=== PATIENT | male | born 1945 | race Caucasian/White ===

== ENCOUNTER 2023-02-08 12:57 | Outpatient (OUT) | payer MEDICARE, OTHER, SELFPAY ==
--- NOTE | 2023-02-08 | CT_ITS ---
The [address] [address] Patient Name: ELIESER TORRES MRN: [id number] date: 1945 Sex: M Assigned Patient Location: CT Current Patient Location: CT Accession/Order Number: [id number] Exam Date: 02/08/2023 10:43 Report Date: 02/08/2023 13:48 At the request of: OLU SOSA Procedure: CT abdomen pelvis wo con EXAM: CT abdomen pelvis wo con; [id number] REASON FOR EXAM: KIDNEY STONES N20.0, HYDRONEPHROSIS LEFT N13.3 TECHNIQUE: Helical CT images of the abdomen and pelvis were obtained without IV contrast. Multiplanar reformats were generated at the scanner. Dose reduction technique used: Automated exposure control and/or adjustment of the mA and/or kV according to patient size and/or use of iterative reconstruction technique. COMPARISON: CT abdomen/pelvis 04/12/2022. FINDINGS: Note: Compared with a contrast-enhanced CT exam, noncontrast images are relatively insensitive for detection of solid organ and vascular abnormalities. Visualized Chest: No pleural effusion or any significant pulmonary findings. Abdomen: Liver: Borderline hepatic steatosis. Single small calcification in the left lobe liver, likely the sequela of granulomatous disease. Gallbladder: No calcified gallstones. No acute inflammatory changes. Bile Ducts: No significant biliary ductal dilatation. Pancreas: No ductal dilatation or inflammatory changes. Spleen: No splenomegaly. Adrenals: No nodules. Kidneys: -Obstructing stone in the proximal left ureter measuring 7 x 5 mm (series 3 image 87), results in mild left-sided hydronephrosis. -There are 2 punctate calcifications in the expected region of the right ureterovesical junction (series 3 image 132 and 133), not seen on the CT from 04/12/2022. -There are 4 additional nonobstructing stones in the left kidney with the largest measuring 5 mm. -Multiple left renal cysts are similar with the largest in the upper pole measuring up to 6 cm, similar when measured in a similar fashion. -There are 3 nonobstructing stones in the lower pole of the right kidney the largest measuring 6 mm. -Low-density lesion in the lower pole of the left kidney measuring 17 mm similar compared with 04/12/2022, likely simple cysts. There is a small amount of layering calcification along the periphery of this lesion which may represent milk of calcium. Vascular: No aortic aneurysm. Lymph Nodes: No adenopathy. Abdominal Wall: Medium sized fat-containing left inguinal hernia. Pelvis: No mass or adenopathy. Bowel/Peritoneal Cavity/Mesentery: -Mild colonic diverticulosis without evidence of acute diverticulitis. -No bowel obstruction or significant ileus. -No acute inflammatory changes. -No free air or free fluid. Musculoskeletal: No acute fracture or suspicious osseous lesion. Extensive spinal fusion hardware is intact. IMPRESSION: 1. Obstructing 7 mm stone in the proximal left ureter results in mild left-sided hydronephrosis. 2. There are 2 punctate calcifications in the expected region of the right ureterovesical junction which could represent nonobstructing ureteric stones versus layering bladder stones. 3. Multiple additional nonobstructing stones in both kidneys. 4. Borderline hepatic steatosis. Electronically authenticated by: LISE COLES Date: 02/08/2023 13:48
== END 2023-02-08 12:58 | disposition home or self-care (01) ==
LOC: CT 12:58
PROVIDERS: PCP Internal Medicine; Visit Provider Urology
DX: N20.0 Calculus of kidney (principal); N13.30 Unspecified hydronephrosis
CPT/HCPCS: 74176

== ENCOUNTER 2023-02-21 08:06 | Outpatient (OUT) | payer MEDICARE, OTHER, SELFPAY ==
--- NOTE | 2023-02-21 08:14 | XR_ITS ---
The [address] [address] Patient Name: ELIESER TORRES MRN: [id number] date: 1945 Sex: M Assigned Patient Location: [facility] Current Patient Location: Accession/Order Number: [id number] Exam Date: 02/21/2023 09:00 Report Date: 02/21/2023 13:21 At the request of: OLU SOSA Procedure: XR chest 2V EXAMINATION: XR chest 2V HISTORY: copd ; presurgical evaluation COMPARISON: XR chest 05/16/2022 FINDINGS: LUNGS: No significant pulmonary parenchymal abnormalities. VASCULATURE: No increased pulmonary vasculature. PLEURA: No pneumothorax, effusion, or pleural thickening. CARDIAC: No cardiomegaly or cardiac silhouette abnormality. MEDIASTINUM: No visible mass or adenopathy. BONES: Multilevel mechanical fusion and intervertebral disc spacers of the lumbar spine. OTHER: Negative. XR/XR chest 2V IMPRESSION: 1. No acute cardiopulmonary process or significant chronic interstitial changes. Electronically authenticated by: EDELMIRA ARANGO Date: 02/21/2023 13:21
--- NOTE | 2023-02-21 08:14 | ECG_ITS ---
The [facility] Test Date: 2023-02-21 Pat Name: ELIESER TORRES Department: Room: - Gender: Male Director Of Perioperative Services: : 1945 Requested By: FRANCA SPENCER Order Number: [id number] Reading MD: FRANCA SPENCER Measurements Intervals [place] Rate: 70 P: 66 IA: 179 QRS: -13 QRSD: 90 T: 30 QT: 370 QTc: 400 Interpretive Statements SINUS RHYTHM No previous ECG available for comparison Electronically Signed On 02-22-2023 6:32:06 EDT by FRANCA SPENCER
[2023-02-21 09:10] LABS: Basophils Percent Auto 0.6 % (0.2-2.0); Eosinophils Absolute Auto 0.2 10^3/uL (0.0-0.7); Eosinophils Percent Auto 2.7 % (0.9-7.0); Hemoglobin 14.1 g/dL (14.0-18.0); Immature Granulocytes Abs Auto 0.03 10^3/uL (0.00-0.03); Immature Granulocytes Pct Auto 0.5 % (0.0-0.5); Lymphocytes Absolute Auto 1.4 10^3/uL (1.2-3.8); Lymphocytes Percent Auto 22.6 % (20.5-60.0); Mean Corpuscular Hemoglobin 30.3 pg (25.9-34.0); Mean Corpuscular Volume 94.6 fL (80.0-94.0); Mean Platelet Volume 9.4 fL (9.5-13.5); Monocytes Absolute Auto 0.7 10^3/uL (0.3-0.8); Monocytes Percent Auto 10.6 % (1.7-12.0); Neutrophils Absolute Auto 3.9 10^3/uL (1.4-6.5); Platelet Count 213 10^3/uL (150-450); Red Blood Count 4.65 10^6/uL (4.70-6.10); Red Cell Distribution Width 13.3 % (11.0-15.0); White Blood Count 6.3 10^3/uL (4.0-11.0)
[2023-02-21 09:23] LABS: Partial Thromboplastin Time 29.1 sec (22.3-36.2); Prothrombin Time 9.8 sec (9.0-11.6)
[2023-02-21 09:25] LABS: INR <0.93
[2023-02-21 10:31] LABS: Anion Gap 9.6; BUN Creatinine Ratio 11.4; Carbon Dioxide 30.5 mmol/L (21.0-32.0); Chloride 104 mmol/L (98-107); Estimated GFR (African America >60 (>=60); Estimated GFR (Non-African Ame 57 (>=60); Glucose 105 mg/dL (74-106); Potassium 4.1 mmol/L (3.5-5.1); Sodium 140 mmol/L (136-145)
== END 2023-02-21 08:07 | disposition home or self-care (01) ==
LOC: PST 08:06
PROVIDERS: PCP Internal Medicine; Visit Provider Urology
DX: Z01.812 Encounter for preprocedural laboratory examination (principal); Z01.810 Encounter for preprocedural cardiovascular examination; Z01.811 Encounter for preprocedural respiratory examination; N13.2 Hydronephrosis with renal and ureteral calculous obstruction; E11.9 Type 2 diabetes mellitus without complications; J44.9 Chronic obstructive pulmonary disease, unspecified
CPT/HCPCS: 36415; 71046; 80048; 85025; 85610; 85730; 93005

== ENCOUNTER 2023-03-01 12:24 | Day surgery (SDC) | payer MEDICARE, OTHER, SELFPAY ==
[2023-02-21 08:38] VITALS: BP 115/73; PULSE 78; RESP 14; TEMP 36.8; O2SAT 95; BMI 28.3
[2023-03-01] VITALS (10 sets, daily range): BP systolic 119–143; BP diastolic 74–83; PULSE 63–96; RESP 13–26; TEMP 36.2–36.6; O2SAT 92–100; BMI 25.9
[2023-03-01] MEDS: LACTATED RINGER'S SOLUTION 1,000 ML 50 ML IV (13:00)
[2023-03-01 13:01] LABS: Glucometer 92 mg/dL (74-106)
[2023-03-01] MEDS: VANCOMYCIN HCL 1,250 MG in 0.9 % SODIUM CHLORIDE 250 ML 250 MG IV (13:01)
--- NOTE | 2023-03-01 16:00 | PM.URSON ---
Urology Surgery Operative Note Operative Note Procedure Date: 03/01/23 Time Out Performed: yes Pre-op Diagnosis: 1. Left ureteral stone 2. Left kidney stones Post-op Diagnosis: Same Procedures performed: 1. Cystoscopy, left retrograde pyelogram, ureteroscopy laser lithotripsy/stone extraction of ureteral stone, stent placement 2. Left renoscopy with laser lithotripsy/stone extraction of kidney stones Anesthesia: GETA (LMA, Dr. Tasha Hendrickson ) Primary Surgeon: Fadia Westfall Complications: none Estimated blood loss (mL): 0 Findings: Moderate bilobar prostatic hypertrophy with elevated bladder neck. Left RPG - narrow distal ureter, dilated ureter to proximal filling defect, moderate hydronephrosis 7 mm left proximal ureteral stone successfully lithotripsied and basket extracted At least four 3-5mm stones in left lower pole and two in the mid-upper pole lithotripsied/basket extracted Fluffy white debris within kidney Specimens: left ureteral and kidney stones Drains: 4.7Fr x 22-32 cm JJ left ureteral stent Incision: none Indications for Procedures: 78 year old male recently diagnosed with a 7x5 mm left proximal ureteral stone with mild hydronephrosis and 4 additional non-obstructing left kidney stones measuring up to 5 mm. He was evaluated in clinic and after discussion of risks/benefits of management options, he elected to proceed with definitive stone treatment of left ureteroscopy, laser lithotripsy/stone extraction, stent placement. He desires treatment of his kidney stone as well. Risks were discussed including but not limited to bleeding, pain, infection, damage to surrounding structures, inability to treat the stone/place a stent and need for additional procedures. The patient understands the stent is not permanent and needs to be removed or exchanged within 3 months to prevent encrustation, infection, invasive procedures and/or permanent renal damage. Detailed description of Procedure: After informed consent was obtained, the patient was brought to the operating room and transferred onto the operating table in supine position. Sequential compression devices were placed on bilateral lower extremities. The patient received the appropriate dose of preoperative IV antibiotics based on recent culture and general anesthesia LMA was induced. They were positioned in modified dorsolithotomy with the appropriate pressure points padded, prepped, and draped in the usual sterile fashion for this procedure. An operative safety timeout was performed confirming the patient's identity, laterality and procedure, and all present agreed to proceed. I began by inserting a 22 [place]ian rigid cystoscope with 30 degree lens into the patient's urethra and bladder without difficulty. There were no bladder tumors, lesions or foreign bodies. Bilateral ureteral orifices were orthotopic and patent. I turned my attention to the left ureteral orifice and a 6- [place]amanian open-ended catheter was inserted into the ureteral orifice and dilute contrast was injected for retrograde pyelogram with findings above. A sensor wire was inserted into the ureter up to the renal pelvis confirmed on fluoroscopy. Next a semirigid ureteroscope was inserted along the wire to ensure there were no distal ureteral stones given RPG; the scope was removed. An 11/13 Panamanian by 36 cm ureteral access sheath was inserted over the wire in a sequential fashion to gain access to the proximal ureteral stone. Next a flexible ureteroscope was inserted through the sheath and a 275 ?m holmium laser fiber was used to break the stone into fragments which were then removed with a 2.4 tipless basket. After the stone was adequately treated, a full renoscopy was performed clearing stones noted in the kidney with a combination of laser lithotripsy and stone basket extraction. There were no significant residual stones or fragments remaining. Contrast was injected to assist with mapping for the renoscopy. The wire was reinserted and a pull down ureteroscopy was performed confirming no stones remained in the ureter. The wire was backloaded through the cystoscope and 4.7Fr x 22-32cm JJ variable length ureteral stent was advanced over the wire, noting adequate curl in the renal pelvis and bladder on fluoroscopic and direct visualization. The bladder was drained and inspected one final time to ensure adequate position of stent and no undue trauma to the bladder was done. The stones sent for pathology and the cystoscope was removed. The patient tolerated the procedure well without complication. The patient was awakened from anesthesia and sent to PACU in stable condition. Plan: Dc home. Follow up within 1 week for cysto, L stent removal in the office. Other Provider present: No Post Operative care instructions: See discharge instructions Attending Doc Confirm Attending Attestation: Yes
--- NOTE | 2023-03-01 17:32 | PC.NURSE ---
Patient voids moderate amount of blood tinged urine. Small amount of bleeding noted from tip of penis. Clots noted in adult depends. Informed patient and patients daughter to monitor bleeding from the tip of the penis. Both verbalized an understanding.
[2023-03-08 19:12] LABS: Calcium Oxalate Dihydrate 90 % (.); Calcium Oxalate Monohydrate 5 % (.); Calcium phosphate (hydroxyl) 5 % (.); Size 3x5 mm (.)
== END 2023-03-01 17:25 | disposition home or self-care (01) ==
PROVIDERS: PCP Internal Medicine; Visit Provider Urology
PROC: (CPT 52356; principal; 2023-03-01 13:30)
DX: N13.2 Hydronephrosis with renal and ureteral calculous obstruction (principal); E11.9 Type 2 diabetes mellitus without complications; J44.9 Chronic obstructive pulmonary disease, unspecified; K21.9 Gastro-esophageal reflux disease without esophagitis; Z87.442 Personal history of urinary calculi; Z79.84 Long term (current) use of oral hypoglycemic drugs; Z87.891 Personal history of nicotine dependence; N40.1 Benign prostatic hyperplasia with lower urinary tract symptoms; Z79.899 Other long term (current) drug therapy
CPT/HCPCS: 52356; 36415; 76000; 82365; 99999; J2704; J3370

== ENCOUNTER 2023-04-25 08:51 | Outpatient (OUT) | payer MEDICARE, OTHER, SELFPAY ==
--- NOTE | 2023-04-25 08:59 | US_ITS ---
The [address] [address] Patient Name: ELIESER TORRES MRN: [id number] date: 1945 Sex: M Assigned Patient Location: Current Patient Location: Accession/Order Number: [id number] Exam Date: 04/25/2023 09:00 Report Date: 04/26/2023 07:29 At the request of: OLU SOSA Procedure: US renal BI EXAMINATION: US renal BI HISTORY: Foreign Body In Bladder T19.1XXA, Kidney Stone N20.0 COMPARISON: 02/08/2023 TECHNIQUE: Ultrasound examination was performed of the bladder. FINDINGS: Right Kidney: Normal in size and contour. Multiple areas of anechoic echogenicity the largest measuring 1.7 cm in the upper pole, simple cysts. Multiple echogenic foci, nonobstructing nephrolithiasis. No solid cortical mass. The cortex measures 1.1 cm. Height: 7.1 cm Length: 11.3 cm Width: 6.4 cm Left Kidney: Normal in size and contour. Multiple areas of anechoic echogenicity the largest in the upper pole measuring 5.3 cm, simple cyst. Multiple echogenic foci measuring up to 1.2 cm, nonobstructing nephrolithiasis favored. No solid cortical mass. The cortex measures 1.3 cm Height: 5.3 cm Length: 12.3 cm Width: 4.9 cm Urinary bladder volume 82 mL. Echogenic foci at the right ureterovesical junction bilateral renal cortical cysts and nonobstructing nephrolithiasis ,wall calcification versus stone US/US renal BI IMPRESSION: Echogenic foci right ureterovesical junction, wall calcification versus distal ureterolith Electronically authenticated by: GRAHAM WHYTE Date: 04/26/2023 07:29
== END 2023-04-25 08:52 | disposition home or self-care (01) ==
LOC: US 08:52
PROVIDERS: PCP Internal Medicine; Visit Provider Urology
DX: T19.1XXA Foreign body in bladder, initial encounter (principal); N20.0 Calculus of kidney; N13.30 Unspecified hydronephrosis
CPT/HCPCS: 76775

== ENCOUNTER 2023-09-21 08:50 | Outpatient (OUT) | payer MEDICARE, OTHER, SELFPAY ==
--- NOTE | 2023-09-21 08:54 | XR_ITS ---
The [address] [address] Patient Name: ELIESER TORRES MRN: [id number] date: 1945 Sex: M Assigned Patient Location: US Current Patient Location: US Accession/Order Number: [id number] Exam Date: 09/21/2023 09:28 Report Date: 09/21/2023 09:51 At the request of: OLU SOSA Procedure: XR abdomen 1V EXAMINATION: XR abdomen 1V HISTORY: Kidney Stones N20.0, Left Hydronephrosis N13.30 COMPARISON: No relevant comparison available. FINDINGS: KIDNEY/URETER - RIGHT: No visible renal or ureteral calcifications. KIDNEY/URETER - LEFT: No visible renal or ureteral calcifications. PELVIS: No visible ureteral calcifications. Any visible calcifications favor phleboliths. BOWEL: No abnormal dilation or deviation. BONES: Bilateral fusion extending from T12 into the sacrum and across the sacroiliac joints. No mechanical failure OTHER: Negative. No abnormal gaseous collections. XR/XR abdomen 1V IMPRESSION: No definite urinary tract calculi observed Electronically authenticated by: GRAHAM WHYTE Date: 09/21/2023 09:51
--- NOTE | 2023-09-21 08:54 | US_ITS ---
The [address] [address] Patient Name: ELIESER TORRES MRN: [id number] date: 1945 Sex: M Assigned Patient Location: US Current Patient Location: Accession/Order Number: [id number] Exam Date: 09/21/2023 08:59 Report Date: 09/21/2023 09:41 At the request of: OLU SOSA Procedure: US renal BI EXAM: US renal BI HISTORY: Kidney Stones N20.0, Left Hydronephrosis N13.30 COMPARISON: Renal ultrasound 04/25/2023.. TECHNIQUE: Real-time ultrasound imaging of the kidneys and bladder. Findings: The right and left kidneys measure 10.3 and 11.0 cm. The bilateral renal cortices are echogenic. Redemonstrated are bilateral cysts. The largest is within the right and left kidneys measure 1.7 x 1.6 x 1.4 and 6.2 x 5.2 x 4.7 cm. There are nonobstructing bilateral renal stones. The largest is within the right and left kidneys measure 1.4 and 0.8 cm. No renal collecting system dilatation. No perinephric fluid collection. The bladder is partially distended with a prevoid volume of 105 mL. No bladder calculi. US/US renal BI IMPRESSION: 1. Nonobstructing bilateral renal stones. 2. Bilateral renal cysts. Electronically authenticated by: SAMANTHA BARNEY Date: 09/21/2023 09:41
== END 2023-09-21 08:51 | disposition home or self-care (01) ==
LOC: US 08:50
PROVIDERS: PCP Internal Medicine; Visit Provider Urology
DX: N20.0 Calculus of kidney (principal); N13.30 Unspecified hydronephrosis
CPT/HCPCS: 74018; 76775

== ENCOUNTER 2023-12-19 08:56 | Outpatient (OUT) | payer MEDICARE, OTHER, SELFPAY ==
--- NOTE | 2023-12-19 09:01 | US_ITS ---
The [address] [address] Patient Name: ELIESER TORRES MRN: [id number] date: 1945 Sex: M Assigned Patient Location: US Current Patient Location: Accession/Order Number: [id number] Exam Date: 12/19/2023 09:02 Report Date: 12/20/2023 06:28 At the request of: RUBIN PRADO Procedure: US renal BI EXAMINATION: US renal BI HISTORY: Kidney Stone , right flank pain COMPARISON: Ultrasound renal bilateral 09/21/2023 TECHNIQUE: Ultrasound examination was performed of the kidneys and urinary bladder. FINDINGS: RIGHT KIDNEY: Contains multiple nonobstructing stones, largest is 10 mm. Stable appearance of a few small cysts. Moderate cortical thinning. Normal renal cortical parenchymal echogenicity. Color Doppler demonstrates blood flow within the kidney. Kidney: 11.0 x 6.7 x 6.1 cm LEFT KIDNEY: Contains multiple nonobstructing stones. Stable appearance of 2 prominent but benign-appearing cyst. Mild-moderate cortical thinning. Normal renal cortical parenchymal echogenicity. Color Doppler demonstrates blood flow within the kidney. Kidney: 12.4 x 6.6 x 5.6 cm BLADDER: No visible wall thickening, mass, or calculi. US/US renal BI IMPRESSION: 1. Bilateral nonobstructing nephrolithiasis. 2. Benign-appearing bilateral renal cysts. Electronically authenticated by: EDELMIRA ARANGO Date: 12/20/2023 06:28
--- NOTE | 2023-12-19 09:47 | XR_ITS ---
The [address] [address] Patient Name: ELIESER TORRES MRN: [id number] date: 1945 Sex: M Assigned Patient Location: US Current Patient Location: US Accession/Order Number: [id number] Exam Date: 12/19/2023 09:42 Report Date: 12/20/2023 06:30 At the request of: RUBIN PRADO Procedure: XR abdomen 1V EXAMINATION: XR abdomen 1V HISTORY: Kidney Stone COMPARISON: XR abdomen 09/21/2023 FINDINGS: KIDNEY/URETER - RIGHT: 9 mm stone and 6 mm stone within inferior pole of right kidney. KIDNEY/URETER - LEFT: No visible renal or ureteral calcifications. PELVIS: 3 mm stone within right pelvis near expected course of distal ureter. BOWEL: No abnormal dilation or deviation. BONES: Mechanical fusion of lumbar spine and sacroiliac joints. OTHER: Negative. No abnormal gaseous collections. XR/XR abdomen 1V IMPRESSION: 1. Right nephrolithiasis and suspected small distal right ureteral stone. Electronically authenticated by: EDELMIRA ARANGO Date: 12/20/2023 06:30
== END 2023-12-19 08:57 | disposition home or self-care (01) ==
LOC: US 08:56
PROVIDERS: PCP Internal Medicine; Visit Provider Physician Assistant
DX: N20.0 Calculus of kidney (principal); N28.1 Cyst of kidney, acquired
CPT/HCPCS: 74018; 76775

== ENCOUNTER 2024-01-24 09:50 | Outpatient (OUT) | payer MEDICARE, OTHER, SELFPAY ==
--- NOTE | 2024-01-24 09:55 | US_ITS ---
[address] [address] Patient Name: ELIESER TORRES MRN: [id number] date: 1945 Sex: M Assigned Patient Location: US Current Patient Location: Accession/Order Number: [id number] Exam Date: 01/24/2024 10:00 Report Date: 01/24/2024 12:11 At the request of: MONIQUE CALDWELL Procedure: US renal BI EXAMINATION: US renal BI HISTORY: Kidney Stone COMPARISON: TECHNIQUE: Ultrasound examination was performed of the bladder. FINDINGS: Right Kidney: Normal in size, contour and echotexture. The cortex measures 1.4 cm. Nonobstructing nephrolithiasis measuring up to 7 mm. No solid cortical mass or hydronephrosis. Multiple parapelvic cysts measuring 1.2 cm Height: 6.7 cm Length: 11.2 cm Width: 5.8 cm Left Kidney: Normal in size, contour and echotexture.r the cortex measures 1.2 cm. Nonobstructing nephrolithiasis. No solid cortical mass or hydronephrosis. Cortical and parapelvic cysts measuring up to 6.6 cm Height: 6.5 cm Length: 11.0 cm Width: 6.9 cm The urinary bladder measures 4.9 x 4.4 x 5.4 cm with a volume of 105 mL. Post void imaging was not performed US/US renal BI IMPRESSION: Bilateral nonobstructing nephrolithiasis Bilateral renal cysts Electronically authenticated by: GRAHAM WHYTE Date: 01/24/2024 12:11
--- NOTE | 2024-01-24 09:55 | XR_ITS ---
The [address] [address] Patient Name: ELIESER TORRES MRN: [id number] date: 1945 Sex: M Assigned Patient Location: US Current Patient Location: US Accession/Order Number: [id number] Exam Date: 01/24/2024 10:30 Report Date: 01/24/2024 13:14 At the request of: MONIQUE CALDWELL Procedure: XR abdomen 1V EXAMINATION: XR abdomen 1V HISTORY: Kidney Stones COMPARISON: 12/19/2023 FINDINGS: KIDNEY/URETER - RIGHT: Nephrolithiasis the largest 8 mm lower pole KIDNEY/URETER - LEFT: Suspected 7.5 mm upper pole nephrolith PELVIS: No visible ureteral calcifications. Any visible calcifications favor phleboliths. BOWEL: No abnormal dilation or deviation. BONES: Posterior fusion with multiple plates and screws extending across both sacroiliac joints. Mild bilateral hip osteoarthritis OTHER: Negative. No abnormal gaseous collections. XR/XR abdomen 1V IMPRESSION: Bilateral nephrolithiasis Electronically authenticated by: GRAHAM WHYTE Date: 01/24/2024 13:14
== END 2024-01-24 09:51 | disposition home or self-care (01) ==
LOC: US 09:50
PROVIDERS: PCP Internal Medicine; Visit Provider Nurse Practitioner Family
DX: N20.0 Calculus of kidney (principal); N28.1 Cyst of kidney, acquired
CPT/HCPCS: 74018; 76775

== ENCOUNTER 2024-09-05 10:23 | Outpatient (OUT) | payer MEDICARE, OTHER, SELFPAY ==
--- NOTE | 2024-09-05 10:28 | XR_ITS ---
[address] [address] Patient Name: ELIESER TORRES MRN: [id number] date: 1945 Sex: M Assigned Patient Location: US Current Patient Location: US Accession/Order Number: [id number] Exam Date: 09/05/2024 10:30 Report Date: 09/05/2024 12:53 At the request of: OLU SOSA Procedure: XR abdomen 1V EXAMINATION: XR abdomen 1V HISTORY: Kidney Stones COMPARISON: 01/24/2024 FINDINGS: KIDNEY/URETER - RIGHT: Nephrolithiasis measuring up to 8 mm, stable KIDNEY/URETER - LEFT: No visible renal or ureteral calcifications. PELVIS: No visible ureteral calcifications. Any visible calcifications favor phleboliths. BOWEL: No abnormal dilation or deviation. BONES: No acute abnormality. Degenerative changes with extensive fusion hardware. No mechanical failure OTHER: Negative. No abnormal gaseous collections. XR/XR abdomen 1V IMPRESSION: Stable right nephrolithiasis Electronically authenticated by: GRAHAM WHYTE Date: 09/05/2024 12:53
--- NOTE | 2024-09-05 10:56 | US_ITS ---
[address] [address] Patient Name: ELIESER TORRES MRN: [id number] date: 1945 Sex: M Assigned Patient Location: US Current Patient Location: US Accession/Order Number: [id number] Exam Date: 09/05/2024 10:57 Report Date: 09/05/2024 11:33 At the request of: OLU SOSA Procedure: US renal BI EXAMINATION: US renal BI HISTORY: Kidney Stones COMPARISON: 01/24/2024 TECHNIQUE: Ultrasound examination was performed of the bladder. FINDINGS: Right Kidney: Normal in size, contour and echotexture. Areas of anechoic echogenicity measuring up to 2 cm, simple cortical cysts. The cortex measures 1.2 cm. Echogenic foci measuring up to 1.8 cm, nonobstructing nephrolithiasis. No hydronephrosis Height: 6.62 cm Length: 10.0 cm Width: 6.76 cm Left Kidney: Normal in size, contour and echotexture. Areas of anechoic echogenicity measuring up to 6.7 cm, simple cortical cysts. The cortex measures 1.0 cm. Echogenic foci measuring up to 0.9 cm, nonobstructing nephrolithiasis. No hydronephrosis Height: 5.52 cm Length: 10.75 cm Width: 6.09 cm Mild gallbladder wall thickening measuring up to 3.8 mm. Moderate left 295 mL. US/US renal BI IMPRESSION: Bilateral cortical cysts and nonobstructing nephrolithiasis Electronically authenticated by: GRAHAM WHYTE Date: 09/05/2024 11:33
== END 2024-09-05 10:24 | disposition home or self-care (01) ==
LOC: US 10:23
PROVIDERS: PCP Internal Medicine; Visit Provider Urology
DX: N20.0 Calculus of kidney (principal); N28.1 Cyst of kidney, acquired
CPT/HCPCS: 74018; 76775

== ENCOUNTER 2024-10-18 10:08 | Outpatient (OUT) | payer MEDICARE, OTHER, SELFPAY ==
--- NOTE | 2024-10-18 | CT_ITS ---
The [address] [address] Patient Name: ELIESER TORRES MRN: [id number] date: 1945 Sex: M Assigned Patient Location: CT Current Patient Location: CT Accession/Order Number: [id number] Exam Date: 10/18/2024 10:37 Report Date: 10/18/2024 11:20 At the request of: OLU SOSA MD Procedure: CT abdomen pelvis wo con CT ABDOMEN AND PELVIS WITHOUT CONTRAST COMPARISON: 02/08/2023 CLINICAL DATA: Follow-up kidney stones. Spiral images were obtained through the abdomen and pelvis without contrast. This CT exam was performed using one or more following dose reduction techniques: Automated exposure control, adjustment of the mA and/or kV according to patient size, or use of iterative reconstruction technique. Limited cuts through the lung bases show no contributory findings. Evaluation of the intra-abdominal organs is slightly limited by the absence of contrast. No calcified gallstones are identified. There are some calcified hepatic granulomas. The spleen, pancreas and adrenal glands show no acute findings. There is an 8 mm exophytic hyperdense nodule at the superior pole of the right kidney which is slightly larger. It may be a hemorrhagic cyst. There is also a slightly hyperdense nodule at the mid to lower pole of the left kidney measuring 14 mm which could be hemorrhagic. It appeared more simple at the time of the prior. Other suspected renal cysts are seen bilaterally though more numerous on the left measuring up to 6 cm. There are couple which still appear to have mural calcification. There are bilateral renal stones. On the right a punctate stone is seen at the midpole of the kidney. Enlarging stones are noted at the inferior pole measuring up to 13 mm. There is a potential punctate lower pole stone on the left though other calculi seen previously are no longer visualized. No hydronephrosis is identified. No ureteral dilatation or stones are seen. There is atherosclerotic plaque involving an ectatic aorta as well as the iliac and visceral arteries. There are tiny abdominal lymph nodes. No ascites is present. Food debris is seen within the stomach. There are normal caliber small bowel loops. Stool is present along the colon. There are some left-sided colonic diverticula. Thoracolumbar levoscoliotic curvature as well as multilevel postoperative and degenerative changes are again seen at the spine. Images through the pelvis show normal caliber small bowel loops. There is stool at the distal colon. Additional colonic diverticula are noted, without associated active inflammation. The prostate is slightly lobulated in contour. The urinary bladder is only partially distended and there is potential slight wall thickening. There are 2 or 3 small dependent calcifications within the urinary bladder to the right of midline measuring up to 5 mm suggesting stones. No ascites is present. There is a patulous left inguinal ring containing fat. Mild degenerative changes are seen at the SI joints and hips. CT/CT abdomen pelvis wo con IMPRESSION: MULTIPLE SUSPECTED BILATERAL SIMPLE AND COMPLICATED RENAL CYSTS, DESCRIBED. BILATERAL NEPHROLITHIASIS, WORSENING ON THE RIGHT AND IMPROVING ON THE LEFT. NO HYDRONEPHROSIS. BLADDER CALCULI. DIVERTICULOSIS. SLIGHT URINARY BLADDER WALL THICKENING THIS MIGHT RELATE TO THE DEGREE OF DISTENTION HOWEVER CLINICAL CORRELATION IS RECOMMENDED TO EXCLUDE ANY POSSIBILITY OF CYSTITIS. Impression dictated by: Rosa Vieira M.D.10/18/2024 11:20 AM Dictation Location: [place] [address] Electronically authenticated by: [id number] Y Date: 10/18/2024 11:20
== END 2024-10-18 10:09 | disposition home or self-care (01) ==
LOC: CT 10:09
PROVIDERS: PCP Internal Medicine; Visit Provider Urology
DX: N20.0 Calculus of kidney (principal); N28.1 Cyst of kidney, acquired; K57.90 Diverticulosis of intestine, part unspecified, without perforation or abscess without bleeding
CPT/HCPCS: 74176

== ENCOUNTER 2024-10-29 12:20 | Outpatient (OUT) | payer MEDICARE, OTHER, SELFPAY ==
--- NOTE | 2024-10-29 12:35 | XR_ITS ---
[address] [address] Patient Name: ELIESER TORRES MRN: [id number] date: 1945 Sex: M Assigned Patient Location: [facility] Current Patient Location: [facility] Accession/Order Number: [id number] Exam Date: 10/29/2024 15:04 Report Date: 10/29/2024 15:04 At the request of: OLU SOSA MD Procedure: XR chest 2V Chest 2 views CLINICAL HISTORY: Pre op COMPARISON: Chest on 1123 FINDINGS: Heart normal in size. No consolidation pneumothorax pleural effusion or free air. XR/XR chest 2V IMPRESSION: NO ACUTE CARDIOPULMONARY ABNORMALITY. Impression dictated by: Rajiv Evans Jr., D.ODamaso10/29/2024 3:04 PM Dictation Location: [place] [address] Electronically authenticated by: [id number] Y Date: 10/29/2024 15:04
--- NOTE | 2024-10-29 12:35 | ECG_ITS ---
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
--- NOTE | 2024-10-29 13:19 | PM.PRESUREVA ---
History of Present Illness History of Present Illness Chief complaint: Right kidney stone Narrative: Patient presents for presurgical testing. Please see HPI from Dr. Westfall dated October 16, 2024. Review of Systems ROS Narrative Please see ROS from Dr. Westfall dated October 16, 2024. [facility] Medical History (Updated 10/29/24 @ 12:41 by Alis Bullock NP) Renal cyst ?N28.1 - Cyst of kidney, acquired (ICD-10) Hearing loss ?H91.90 - Unspecified hearing loss, unspecified ear (ICD-10) Swallowing impairment ?R13.10 - Dysphagia, unspecified (ICD-10) Sleep apnea ?G47.30 - Sleep apnea, unspecified (ICD-10) Skin cancer ?C44.90 - Unspecified malignant neoplasm of skin, unspecified (ICD-10) Throat pain ?R07.0 - Pain in throat (ICD-10) Dysphagia ?R13.10 - Dysphagia, unspecified (ICD-10) Stricture of esophagus ?K22.2 - Esophageal obstruction (ICD-10) Bilateral leg weakness ?R29.898 - Other symptoms and signs involving the musculoskeletal system (ICD-10) COVID-19 ?U07.1 - COVID-19 (ICD-10) S/P extracorporeal shock wave therapy ?Z98.890 - Other specified postprocedural states (ICD-10) Back pain ?M54.9 - Dorsalgia, unspecified (ICD-10) Arthritis ?M19.90 - Unspecified osteoarthritis, unspecified site (ICD-10) Chronic obstructive pulmonary disease ?J44.9 - Chronic obstructive pulmonary disease, unspecified (ICD-10) Kidney stones ?N20.0 - Calculus of kidney (ICD-10) Ureteral stone ?N20.1 - Calculus of ureter (ICD-10) GERD (gastroesophageal reflux disease) ?K21.9 - Gastro-esophageal reflux disease without esophagitis (ICD-10) Diabetes ?E11.9 - Type 2 diabetes mellitus without complications (ICD-10) Surgical History (Updated 10/29/24 @ 13:01 by Alis Bullock NP) History of spinal surgery (09/2023) ?Z98.890 - Other specified postprocedural states (ICD-10) History of shoulder 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/24) ?Z96.619 - Presence of unspecified artificial shoulder joint (ICD-10) S/P cystoscopy with ureteral stent placement (03/01/23) ?Z96.0 - Presence of urogenital implants (ICD-10) History of excision of lesion ?Z98.890 - Other specified postprocedural states (ICD-10) ?Z87.2 - Personal history of diseases of the skin and subcutaneous tissue (ICD-10) History of colonoscopy ?Z98.890 - Other specified postprocedural states (ICD-10) History of hernia repair ?Z98.890 - Other specified postprocedural states (ICD-10) ?Z87.19 - Personal history of other diseases of the digestive system (ICD-10) History of surgery on arm ?Z98.890 - Other specified postprocedural states (ICD-10) History of esophagogastroduodenoscopy (EGD) ?Z98.890 - Other specified postprocedural states (ICD-10) Family History (Updated 02/21/23 @ 08:59 by Alis Bullock NP) Other Family history of gastric cancer Family history of prostate cancer Social History (Updated 02/21/23 @ 08:37 by Alis Bullock NP) Within the past year, how often did you have a drink containing alcohol: 2-3 times a week Smoking status: Former smoker Non-prescribed substance use: denies use Highest level of school completed/degree received: high school graduate Meds Home Medications and Allergies Home Medications ?Medication ?Instructions ?Recorded ?Confirmed ?Type celecoxib 100 mg capsule 100 mg PO Q12H 02/21/23 10/29/24 History duloxetine 30 mg capsule,delayed 30 mg PO QDAY 02/21/23 10/29/24 History release metformin 500 mg tablet 500 mg PO BID 02/21/23 10/29/24 History oxycodone 5 mg tablet 5 mg PO Q12H 02/21/23 10/29/24 History tamsulosin 0.4 mg capsule 0.4 mg PO Q24H 02/21/23 10/29/24 History aspirin 81 mg tablet,delayed 81 mg PO DAILY 10/29/24 10/29/24 History release cyanocobalamin (vitamin B-12) 1,000 mcg PO DAILY 10/29/24 10/29/24 History 1,000 mcg tablet docusate sodium 100 mg capsule 100 mg PO BID 10/29/24 10/29/24 History finasteride 5 mg tablet 5 mg PO DAILY 10/29/24 10/29/24 History lisinopril 10 mg tablet 10 mg PO DAILY 10/29/24 10/29/24 History melatonin 5 mg capsule 5 mg PO QPM 10/29/24 10/29/24 History rosuvastatin 20 mg tablet 20 mg PO DAILY 10/29/24 10/29/24 History Allergies Allergy/AdvReac Type Severity Reaction Status Date / Time No Known Drug Allergies Allergy Verified 10/29/24 12:48 Exam Narrative Exam Narrative: Constitutional: Awake, alert, comfortable, well-appearing, nontoxic, interactive, vital signs as charted Head: Normocephalic, atraumatic Neck: Supple, normal appearance, normal range of motion, no meningeal signs, no lymphadenopathy Respiratory: No respiratory distress, breath sounds clear Cardiovascular: Regular rate and rhythm, strong and regular heart tones Abdomen: Nontender, normal bowel sounds, soft, no CVA tenderness Musculoskeletal: Ambulates steadily with a cane, no swelling or edema Skin: No rashes or induration, no lesions, only visible skin inspected Neuro: No neurological deficits, normal sensation Psychiatric: Oriented ?3, normal affect Assessment and Plan Assessment and Plan (1) Kidney stones: Plan Cystoscopy, right ureteroscopy, laser lithotripsy, possible right stent placement scheduled with Dr. Westfall November 06, 2024.
[2024-10-29 13:55] LABS: Basophils Absolute Auto 0.1 10^3/uL (0.0-0.1); Basophils Percent Auto 0.8 % (0.2-2.0); Eosinophils Absolute Auto 0.3 10^3/uL (0.0-0.7); Eosinophils Percent Auto 4.1 % (0.9-7.0); Hematocrit 38.6 % (42.0-54.0); Immature Granulocytes Abs Auto 0.01 10^3/uL (0.00-0.03); Immature Granulocytes Pct Auto 0.1 % (0.0-0.5); Lymphocytes Absolute Auto 1.8 10^3/uL (1.2-3.8); Lymphocytes Percent Auto 24.1 % (20.5-60.0); Mean Corpuscular HGB Conc 31.1 g/dL (29.9-35.2); Mean Corpuscular Hemoglobin 28.1 pg (25.9-34.0); Mean Corpuscular Volume 90.4 fL (80.0-94.0); Mean Platelet Volume 9.5 fL (9.5-13.5); Monocytes Percent Auto 13.5 % (1.7-12.0); Neutrophils Absolute Auto 4.2 10^3/uL (1.4-6.5); Neutrophils Percent Auto 57.4 % (43.0-75.0); Platelet Count 212 10^3/uL (150-450); Red Blood Count 4.27 10^6/uL (4.70-6.10); Red Cell Distribution Width 14.6 % (11.0-15.0); White Blood Count 7.3 10^3/uL (4.0-11.0)
[2024-10-29 14:08] LABS: INR 0.95; Partial Thromboplastin Time 27.8 sec (22.3-36.2); Prothrombin Time 10.1 sec (9.0-11.6)
[2024-10-29 14:31] LABS: Bilirubin Urine NEGATIVE (NEGATIVE); Blood Urine TRACE-I (NEGATIVE); Clarity Urine CLEAR (CLEAR); Color Urine LT. YELLOW (YELLOW); Glucose Urine UA NEGATIVE (NEGATIVE); Ketones Urine NEGATIVE (NEGATIVE); Leukocyte Esterase Urine SMALL (NEGATIVE); Nitrite Urine NEGATIVE (NEGATIVE); Protein Urine TRACE mg/dL (NEG/TRACE); Urobilinogen Urine 0.2 EU/dL (0.2-1.0); pH Urine 5.5 (5.0-9.0)
[2024-10-29 14:42] LABS: Anion Gap 13.3; BUN Creatinine Ratio 11.7; Calcium 9.9 mg/dL (8.5-10.1); Carbon Dioxide 27.8 mmol/L (21.0-32.0); Chloride 102 mmol/L (98-107); Estimated GFR (African America >60 (>=60 mL/min/1.73m^2); Estimated GFR (Non-African Ame >60 (>=60 mL/min/1.73m^2); Glucose 94 mg/dL (74-106); Potassium 4.1 mmol/L (3.5-5.1); Sodium 139 mmol/L (136-145)
[2024-10-29 15:00] LABS: Bacteria Urine TRACE #/HPF (NONE SEEN); Crystals Seen? None Seen #/HPF (None Seen); Mucus Urine NONE SEEN (NONE SEEN); Squamous Epithelial Cell Urine FEW #/LPF (NONE/RARE); Urine Microscopic Indicated YES
[2024-10-29 15:01] LABS: Cast Seen? NONE SEEN #/LPF (NONE SEEN); Urine Culture Indicated YES-FRMC
== END 2024-10-29 12:21 | disposition home or self-care (01) ==
PROVIDERS: PCP Internal Medicine; Visit Provider Urology
DX: Z01.810 Encounter for preprocedural cardiovascular examination (principal); Z01.812 Encounter for preprocedural laboratory examination; Z01.818 Encounter for other preprocedural examination; N20.0 Calculus of kidney; N28.89 Other specified disorders of kidney and ureter
CPT/HCPCS: 36415; 71046; 80048; 81001; 85025; 85610; 85730; 87086; 93005; G0463

== ENCOUNTER 2024-11-06 12:45 | Day surgery (SDC) | payer MEDICARE, OTHER, SELFPAY ==
[2024-10-29 13:17] VITALS: BP 130/74; PULSE 77; TEMP 36.2; O2SAT 95; BMI 26.5
--- NOTE | 2024-11-03 15:00 | PC.NURSE ---
[facility] Att[facility] reviewed final Urine culture and per Final Report No growth for [address] Trinity hurley reviewed it and signed results.
[2024-11-06] VITALS (14 sets, daily range): BP systolic 136–159; BP diastolic 79–96; PULSE 74–93; TEMP 36.4–36.6; O2SAT 87–98; BMI 26.0
[2024-11-06 13:15] LABS: Glucometer 80 mg/dL (74-106)
[2024-11-06] MEDS: LACTATED RINGER'S SOLUTION 1,000 ML 50 ML IV ×2 (13:24→14:16)
[2024-11-06] MEDS: CEFAZOLIN SODIUM 2 GM/50 ML D5W PREMIX IV (13:24)
[2024-11-06] MEDS: IOHEXOL 240 MG/ML - 50 ML VIAL INJ (14:33)
--- NOTE | 2024-11-06 14:58 | PM.URSON ---
Urology Surgery Operative Note Operative Note Procedure Date: 11/06/24 Time Out Performed: yes Pre-op Diagnosis: Right kidney stones Post-op Diagnosis: same as pre-op Procedures performed: Cystoscopy, right retrograde pyelogram, ureteroscopy laser lithotripsy/stone extraction, stent placement Anesthesia: General-LMA (Dr. Sanabria) Primary Surgeon: Fadia Westfall Complications: none Estimated blood loss (mL): 0 Findings: Severe bilobar prostatic hyperplasia with mildly elevated bladder neck. 1-2+ trabeculated bladder, few tiny stones in bladder R RPG- RLP filling defect consistent with stones, radiopaque, no hydronephrosis, extravasation or other filling defects 2 kidney stones in RLP 6-7mm each, underwent uncomplicated laser lithotripsy and stone extraction Specimens: right kidney stone Drains: 6Fr x 26 cm JJ right ureteral stent Incision: none Indications for Procedures: 79 year old male with near 1.4 cm right lower pole stone burden presents today for definitive stone treatment. After discussion of risks/benefits of management options, the patient elected to proceed with cystoscopy, right retrograde pyelogram, ureteroscopy with laser lithotripsy/stone extraction, ureteral stent placement under general anesthesia. Risks were discussed including but not limited to bleeding, pain, infection, damage to surrounding structures, inability to treat the stone/place a stent, and need for additional procedures. The patient understands the stent is not permanent and needs to be removed or exchanged within 3 months to prevent encrustation, infection, invasive procedures and/or permanent renal damage. Detailed description of Procedure: After informed consent was obtained, the patient was brought to the operating room and transferred onto the operating table in supine position. Sequential compression devices were placed on bilateral lower extremities. The patient received the appropriate dose of preoperative IV antibiotics and general anesthesia was induced. They were positioned in modified dorsolithotomy with the appropriate pressure points padded, prepped, and draped in the usual sterile fashion for this procedure. An operative safety timeout was performed confirming the patient's identity, laterality and procedure, and all present agreed to proceed. I began by inserting a 22 Azerbaijani rigid cystoscope with 30 degree lens into the patient's urethra and bladder without difficulty. There were no bladder tumors, lesions, or foreign bodies. Bilateral ureteral orifices were orthotopic and patent. Findings as above I turned my attention to the right ureteral orifice and a 6- Azerbaijani open-ended catheter was inserted into the ureteral orifice and dilute contrast was injected for retrograde pyelogram with findings as above. A Sensor wire was inserted into the ureter up to the renal pelvis confirmed on fluoroscopy. An 11/13 Azerbaijani by 36 cm ureteral access sheath was inserted over the wire in a sequential fashion to gain access to the renal pelvis. Next a flexible ureteroscope was inserted through the sheath and advanced to the renal pelvis under fluoroscopic guidance. The right lower pole stones were found. A 200 ?m thulium laser fiber was used to dust the stone into tiny fragments, inner core was hard so this was fragmented and removed with a 1.8 tipless nitinol basket. Popcorn laser lithotripsy applied to remaining smaller fragments. After the stone was adequately treated, a full renoscopy was performed confirming no significant residual stones or fragments remained. Contrast was injected to assist with mapping for the renoscopy. The wire was reinserted and a pull down ureteroscopy was performed confirming no stones remained in the ureter. Contrast was injected for retrograde pyelogram confirming no extravasation of contrast, filling defects or hydronephrosis. The wire was backloaded through the cystoscope and 6 Fr x 26 cm JJ ureteral stent was advanced over the wire, noting adequate curl in the renal pelvis and bladder on fluoroscopic and direct visualization. The bladder was irrigated and inspected one final time to ensure adequate position of stent and no undue trauma to the bladder was done. The stones were sent for pathology and the cystoscope was removed. The patient tolerated the procedure well without complication. The patient was awakened from anesthesia and sent to PACU in stable condition. Plan: Discharge home. Follow up for in-office cystoscopy, stent removal in 1-2 weeks. Post Operative care instructions: See discharge instructions Attending Doc Confirm Attending Attestation: Yes
== END 2024-11-06 16:06 | disposition home or self-care (01) ==
PROVIDERS: PCP Internal Medicine; Visit Provider Urology
PROC: (CPT 52356; principal; 2024-11-06 14:45)
DX: N20.0 Calculus of kidney (principal); N32.89 Other specified disorders of bladder; N21.0 Calculus in bladder; Z87.891 Personal history of nicotine dependence; G47.33 Obstructive sleep apnea (adult) (pediatric); J44.9 Chronic obstructive pulmonary disease, unspecified; Z86.73 Personal history of transient ischemic attack (TIA), and cerebral infarction without residual deficits; E11.9 Type 2 diabetes mellitus without complications; Z79.84 Long term (current) use of oral hypoglycemic drugs
CPT/HCPCS: 52356; 36415; 74420; 82365; 82948; 99999; J0131; J0690; J1100; J2250; J2371; J2405; J2704; J3010; Q9966

== ENCOUNTER 2025-01-01 10:18 | Outpatient (OUT) | payer MEDICARE, OTHER, SELFPAY ==
--- OUTSIDE RECORDS SUMMARY | 2024-12-20 19:42 | XMS_ITS | Encounter Summary ---
Author Organization [facility] tem Address [id number] [address] [place] [address] Care Team Providers Care Handle Turner Name Role Phone Armando Richards MD Primary Care Provider [phone] Reason for Visit * Reason Comments Constipation Encounter Details Date Type Department Care Team (Late st Contact Info) Description 12/20/2024 7:42 PM EDT - 12/20/2024 9:17 PM EDT Emergency [facility] - Emergency [address] [place] [id number] Drug-induced constipation (Primary Dx) Discharge Disposition: Home Social History Tobacco Use Types Packs/Day Years Used Date Smoking Tobacco: Former Smokeless Tobacco: Never Alcohol Use Standard Drinks/Week Comments Yes 0 (1 standard drink = 0.6 oz pur e alcohol) [facility] Utilities Answer Date Recorded In the past 12 months has [employer], [employer], oil, or water [employer] threatened to shut off services in your home? No 03/24/2024 AUDIT-C Answer Date Recorded Frequency of Alcohol Consumption 4 or more times a week 09/15/2020 Average Number of Drinks 1 or 2 021 Frequency of Binge Drinking Not on file 09/2020 Overall Financial Resource Strain (CARDIA) Answe r Date Recorded How hard is it for you to pa y for the very basics like food, housing, medical care, and heating? Not hard at all 05/24/2023 PHQ-2 Answer Date Recorded Total Score 7 05/29/2024 PRAPARE - Transportation Answer Date Re corded In the past 12 months, has l ack of transportation kept you from medical appointments or from getting medications? No 03/14 In the past 12 months, has l ack of transportation kept you from meetings, work, or from getting things needed for daily living? No 03/24/2024 Housing Instability Answer Date Recorde d Are you worried or concerned that in the next two months you may not have stable housing that you own, rent or stay in as a part of a household? No 03/24/2024 Childcare Answer Date Recorded Childcare Unknown 01/17/2019 Employment Answer Date Recorded Employment Unknown 01/17/2019 Hunger Screening Answer Date Recorded Within the past 12 months we worried whether our food would run out before we got money to buy more. Never True 12/20/2024 Within the past 12 months th e food we bought just didn't last and we didn't have money to get more. Never True 12/20/2024 Purpose - Life Answer Date Recorded Purpose and direction in life Unknown Sex and Gender Information Value Date Recorded Sex Assigned at Not on file Legal Sex Male 11:31 AM EDT Gender Identity Not on file Sexual Orientation Not on file documented as of this encounter Last Filed Vital Signs Vital Sign Reading Time Taken Comments Blood Pressure 136/75 12/20/2024 8:30 PM EDT Pulse 73 12/20/2024 7:48 PM EDT Temperature 36.4 C (97.5 F) 12/20/2024 7:48 PM EDT Respiratory Rate 17 12/20/2024 7:48 PM EDT Oxygen Saturation 98% 12/20/2024 7:48 PM EDT Inhaled Oxygen Concentration - - Weight 79.4 kg (175 lb) 12/20/2024 7:48 PM EDT Height 172.7 cm (5' 8 ) 12/20/2024 7:48 PM EDT Body Mass Index 26.61 12/20/2024 7:48 PM EDT documented in this encounter Discharge Instructions * Discharge Instructions* Andreia Almanza APRN-[employer]ODUCTION ASSOCIATE - 12/20/2024 9:04 PM EDT I would recommend taking the stool softeners along side the pain medication to prevent any further constipation. Follow up with PCP. Please return to the ER for chest pain, shortness of breath, abdominal pain, nausea, vomiting, fevers, loss of consciousness, or any other concerning symptoms. documented in this encounter Medications at Time of Discharge aspirin 81 mg Take 1 tablet (81 mg total) by mouth in the morning. celecoxib (CeleBREX) 100 mg capsule Take 1 capsule (100 mg total) by mouth in the morning and 1 capsule (100 mg total) before bedtime. 180 capsule 1 12/16/2024 cyanocobalamin 1000 MCG tablet TAKE 1 TABLET (1,000 MCG TOTAL) BY MOUTH IN THE MORNING FOR 210 DAYS. 09/24/2024 docusate sodium (COLACE) 100 mg capsule Take 1 capsule (100 mg total) by mouth in the morning and 1 capsule (100 mg total) before bedtime. 60 capsule 2 12/12/2023 DULoxetine (CYMBALTA) 30 mg capsule Take 1 capsule (30 mg total) by mouth in the morning. 90 capsule 3 06/10/2024 finasteride (PROSCAR) 5 mg tablet Take 1 tablet (5 mg total) by mouth. 10/16/2024 fluorouraciL (EFUDEX) 5 % cream APPLY TWICE A DAY TO THE AFFECTED AREAS ON SCALP AND FACE FOR 3 WEEKS 11/05/2024 lisinopriL (PRINIVIL,ZESTRIL) 10 mg tablet TAKE 1 TABLET (10 MG TOTAL) BY MOUTH IN THE MORNING 90 tablet 2 07/22/2024 melatonin (CIRCADIN) capsule Take 1 capsule (5 mg total) by mouth nightly. metFORMIN (GLUCOPHAGE) 500 mg tabletIndications: Type 2 diabetes mellitus without complication, without long-term current use of insulin ([facility]) TAKE 1 TABLET BY MOUTH IN THE MORNING AT AT NOON AND BEFORE BEDTIME 270 tablet 3 06/27/2024 oxyCODONE (ROXICODONE) 5 mg immediate release tabletIndications: Lumbar degenerative disc disease Take 1 tablet (5 mg total) by mouth in the morning and 1 tablet (5 mg total) before bedtime. Max Daily Amount: 10 mg. 60 tablet 12/03/2024 rosuvastatin (CRESTOR) 20 mg tablet TAKE 1 TABLET BY MOUTH EVERY DAY AT NIGHT 90 tablet 2 07/22/2024 tamsulosin (FLOMAX) 0.4 mg capsuleIndications :Chronic kidney disease (CKD) stage G3a/A1, moderately decreased glomerular filtration rate (GFR) between 45-59 mL/min/1.73 square meter and albuminuria creatinine ratio less than 30 mg/g ([facility]) Take 1 capsule (0.4 mg total) by mouth once daily at bedtime. 30 capsule 12/10/2023 documented as of this encounter ED Notes * Andreia Almanza, GRAPHIC ART TECHNICIAN-BIODIESEL PRODUCTION ASSOCIATE - 12/20/2024 9:08 PM EDT Images from the original note were not included. [facility] - EMERGENCY Pt Name: Tyler Roe Birthdate: 1945 Chief Complaint: Chief Complaint Patient presents with Constipation History of Present Illness: Patient is a 79-year-old male who presents to the emergency department for evaluation of constipation. Patient reports that he recently had shoulder procedure performed on Monday and has been taking narcotic pain medication. He reports that he has not had a bowel movement in the last 3 days. He started taking some stool softeners and believes he took 1 dose of laxatives without any relief. He states that his abdomen is feeling very bloated. This has happened to him before and he has had the laxatives typically worked, but this time they did not. He denies any nausea or vomiting. No significant pain. No other complaints at this time. Upon evaluation, patient is alert, acting appropriate, in no acute respiratory distress, speaking full sentences. Past Medical History: Past Medical History: Diagnosis Date Arthritis COPD (chronic obstructive pulmonary disease) ([facility]) Diabetes mellitus ([facility]) GERD (gastroesophageal reflux disease) HL (hearing loss) ROMEO (obstructive sleep apnea) Shingles Past Surgical History: Past Surgical History: Procedure Laterality Date COLONOSCOPY ESOPHAGOGASTRODUODENOSCOPY SKIN BIOPSY SPINE SURGERY VASECTOMY Family History: Family History Problem Relation Age of Onset COPD Mother Social History: Social History Socioeconomic History Marital status: Single Tobacco Use Smoking status: Former Smokeless tobacco: Never Vaping Use Vaping status: Never Used Substance and Sexual Activity Alcohol use: Yes Drug use: No Social Drivers of Health Financial Resource Strain: Low Risk (08/24/2023) Received from [facility] Overall Financial Resource Strain (CARDIA) Difficulty of Paying Living Expenses: Not hard at all Food Insecurity: No Food Insecurity (12/20/2024) Hunger Screening Food Insecurity - Worry: Never True Food Insecurity - Inability: Never True Transportation Needs: No Transportation Needs (03/24/2024) PRAPARE - Transportation Lack of Transportation (Medical): No Lack of Transportation (Non-Medical): No Interpersonal Safety: Not At Risk (03/24/2024) Humiliation, Afraid, Rape, and Kick questionnaire Fear of Current or Ex-Partner: No Emotionally Abused: No Physically Abused: No Sexually Abused: No Housing Instability: Low Risk (03/24/2024) Housing Instability Housing Instability: No Review of Systems: Review of Systems Physical Exam: ED Triage Vitals [12/20/241947] Temp Heart Rate Resp BP SpO2 36.4 ??C (97.5 ??F) 73 17 151/83 98 % Temp Source Heart Rate Source Patient Position BP Location FiO2 (%) Oral Pulse Ox Sitting Left arm -- Vitals: 12/20/24194712/20/24201412/20/242029 BP: 151/83 129/85 136/75 Temp: 36.4 ??C (97.5 ??F) TempSrc: Oral Pulse: 73 Resp: 17 SpO2: 98% MAP (mmHg): 104 Height: 172.7 cm (5' 8 ) Weight: 79.4 kg (175 lb) Physical Exam Vitals and nursing note reviewed. Constitutional: General: He is not in acute distress. Appearance: Normal appearance. He is not ill-appearing or toxic-appearing. HENT: Head: Normocephalic and atraumatic. Right Ear: External ear normal. Left Ear: External ear normal. Nose: Nose normal. No congestion. Mouth/Throat: Mouth: Mucous membranes are moist. Eyes: Conjunctiva/sclera: Conjunctivae normal. Cardiovascular: Rate and Rhythm: Normal rate. Pulmonary: Effort: Pulmonary effort is normal. No respiratory distress. Breath sounds: No wheezing. Abdominal: Tenderness: There is no abdominal tenderness. Musculoskeletal: General: No tenderness. Normal range of motion. Cervical back: Normal range of motion. Comments: Shoulder sling in place Skin: General: Skin is warm and dry. Capillary Refill: Capillary refill takes less than 2 seconds. Findings: No rash. Neurological: General: No focal deficit present. Mental Status: He is alert and oriented to person, place, and time. Psychiatric: Mood and Affect: Mood normal. Behavior: Behavior normal. Thought Content: Thought content normal. Judgment: Judgment normal. Procedure: Procedures Re-evaluation: Re-Evaluation Medical Decision Making 9:11 PM This is a 79 y.o. male presenting for Constipation. On arrival patient's height is 172.7 cm (5' 8 )and weight is 79.4 kg (175 lb). His oral temperature is 36.4 ??C (97.5 ??F). His blood pressure is 136/75 and his pulse is 73. His respiration is 17 and oxygen saturation is 98%. History provided by patient. Physical exam: The patient appears to be in no apparent distress and vital signs are stable.. Plan of care: enema Evaluation: Clinical presentation is consistent with constipation. I did offer patient oral medications to try given that he recently had shoulder surgery and we were not sure how mobile he would be with an enema. He for oral medications because he did not feel that they would work since he had previously tried medications. He was agreeable to an enema. The milk of molasses enema was performed with great success. He feels much better in his comfortable going home. I educated him in taking the stool softeners along side the pain medication for further each treatment. Stable for discharge at this time. Disposition: Based on the diagnostic results and physical exam, pt will be discharged and does not require admission... No emergent or otherwise concerning conditions were identified during this encounter. Patient is deemed stable for discharge at this time. Patient was given strict return precautions. Patient verbalized understanding of follow up instructions. All questions were answered. Anticipatory guidance given. Patient is agreeable for discharge. ED Course: Clinical Impressions as of 12/20/242111 Drug-induced constipation . ED Disposition ED Disposition Discharge Date/Time MonDecember 20, 2024 9:03 PM Comment At the time of discharge, the plan has been discussed with the patient regarding the diagnosis and prognosis. All questions have been answered. Verbal discharge instructions were discussed with the patient. The patient has been advised to follow up w ith their Primary Care Provider as needed. The patient was also instructed to return to the ED if their symptoms change, worsen, new symptoms arise or if they have any additional concerns. ANA Supervision Only Supervising Physician was Dr. Toure Please note that portions of this note were completed with a voice recognition program. Efforts were made to edit the dictations but occasionally words are mis-transcribed. RONNIE Mckeon 12/20/242107 RONNIE Mckeon 12/20/242111 * Jenifer Stock RN - 12/20/2024 7:45 PM EDT Pt states that he had surgery on Monday and has been taking pain meds since. Pt states that he has been unable to have BM and his belly feels bloated. documented in this encounter Plan of Treatment Upcoming Encounters Date Type Department Care Team (Late st Contact Info) Description 06/02/2025 10:15 AM EDT Office Visit [facility] Internal Medicine/Pediatrics [address] [place] [phone] Armando Richards MD [address] [place] [address], [address] [place] [address] 06/03/2025 9:30 AM EDT Appointment [facility] - Vascular [address] [place] [address] Adriana Russell, DO [address] [place] [address] 06/09/2025 10:00 AM EDT Office Visit [facility] [address] [place] [address] Adriana Russell, DO [address] [place] [address] documented as of this encounter Goals Goal Patient Goal Type Associated Problems Recent Progress Patient-Stated? Author Safe dc General Yes Delilah Marroquin LSW Note: Evaluation of progress towards goal: Safe dc transition from hospital to home. documented as of this encounter Visit Diagnoses Diagnosis Drug-induced constipation- Primary Other constipation documented in this encounter Additional Health Concerns Assessment Noted Time PHQ-9 Depression Total Score: 7 05/29/20 24 9:00 AM EDT documented as of this encounter Care Teams Handle Turner Relationship Specialty Start Date End Date Armando Richards MD [address] [place] [address], [address] [place] [address] PCP - General Pediatrics 12/10/23 documented as of this encounter
--- OUTSIDE RECORDS SUMMARY | 2024-12-24 09:45 | XMS_ITS | Encounter Summary ---
Author Organization [facility] tem Address [id number] [address] [place] [address] Care Team Providers Care Rural Health Consultant Name Role Phone Armando Richards MD Primary Care Provider [phone] Reason for Visit * Reason Comments Er Follow-up [facility] 12/20/24 Constipat ion Encounter Details Date Type Department Care Team (Late st Contact Info) Description 12/24/2024 9:45 AM EDT [facility] Visit [facility]Pediatrics [address] [place] [address] [address] [place] [address] Armando Richards MD [address] [place] [address], [address] [place], [place] [id number] Drug-induced constipation (Primary Dx) Social History Tobacco Use Types Packs/Day Years Used Date Smoking Tobacco: Former Smokeless Tobacco: Never Alcohol Use Standard Drinks/Week Comments Yes 0 (1 standard drink = 0.6 oz pur e alcohol) [facility] Utilities Answer Date Recorded In the past 12 months has [employer], gas, oil, or water company threatened to shut off services in your [...] Sign Reading Time Taken Comments Blood Pressure 123/72 12/24/2024 9:43 AM EDT Pulse 90 12/24/2024 9:43 AM EDT Temperature - - Respiratory Rate - - Oxygen Saturation - - Inhaled Oxygen Concentration - - Weight 79.8 kg (176 lb) 12/24/2024 9:43 AM EDT Height 172.7 cm (5' 8 ) 12/24/2024 9:43 AM EDT Body Mass Index 26.76 12/24/2024 9:43 AM EDT documented in this encounter Progress Notes * Armando Richards MD - 12/24/2024 9:45 AM EDT Subjective Patient ID: Tyler Roe is a 79 y.o. male. Comes in for ER follow-up. He had his right shoulder surgery and so far things are going well. He has been inactive relatively and has been on oxycodone b.i.d.. He developed constipation and was evaluated at the ER. He had a good response to an enema. Over the weekend his bowels moved a relatively large amount of mostly thick liquid. He actually feels better today as far as the constipation goes.He continues to complain about his back, weak legs, lack of energy and activity. He has not had anyfever. The following portions of the patient's history were reviewed and updated as appropriate: allergies, current medications, past medical history, past social history, past surgical history, and problemlist. Review of Systems Objective Physical Exam Constitutional: Comments: Color looks fine. Weight is stable. Blood pressure normal. He is wearing the sling on hisright arm and using a cane in his left arm. No other physical exam done today other than to note his abdomen is not distended. Assessment/Plan His bowels seem to have regulated. I have no new answer for his back and leg issues. He has Dulcolax tablets that he can use as needed if he feels constipation. His bowel should be less of a problem as he resumes more normal activity with recovery from his shoulder surgery. Diagnoses and all orders for this visit: Drug-induced constipation documented in this encounter Plan of Treatment Upcoming Encounters Date Type Department Care Team (Late st Contact Info) Description 06/02/2025 10:15 AM EDT Office Visit [facility] Internal Medicine/Pediatrics [address] [place] [address] [place] [address] [place] [phone] Armando Richards MD [address] [place] [address], [address] [place] [address] 06/03/2025 9:30 AM EDT Appointment [facility] - Vascular [address] [place] [phone] Adriana Russell DO [address] [facility] [address] [place] [address] 06/09/2025 10:00 AM EDT Office Visit [facility] [address] [place] [address] Adriana Russell, [address] [facility] [address] [place] [address] documented as of this encounter Goals Goal [...] Time PHQ-9 Depression Total Score: 7 05/29/20 9:00 AM EDT documented as of this encounter Care Teams Rural Health Consultant Relationship Specialty Start Date End Date Armando Richards MD [address] [place] [address], [address] [place] [address] PCP - General Pediatrics 12/10/23 documented as of this encounter
--- OUTSIDE RECORDS SUMMARY | 2024-12-30 09:37 | XMS_ITS | Encounter Summary ---
Author Organization [facility] Address [address] [place] [address] Care Team Providers Care Supervisor Rod Placing Name Role Phone Armando Richards MD Primary Care Provider + Source Comments In the event this information is protected by the Federal Confidentiality of Alcohol and Drug AbusePatient Records regulations: The Federal rules restrict any use of the information to criminally investigate or prosecute any alcohol or drug abuse patient.[facility] Reason for Visit * Diagnostic Procedure Only (Routine) - Closed Specialty Diagnoses / Procedures Referred By Contac t Referred To Contact XR IMAGING Diagnoses Chronic right shoulder pain Procedures XR SHOULDER GENERAL 3V OR MORE AP/TRUE AP/OTHER RIGHT RADEX SHOULDER COMPLETE MINIMUM 2 VIEWS Hung Ghosh MD [facility] [place] [address] Phone: tel: fax: [phone] [phone] Referral ID Status Reason Start Date Expiration Date V isits Requested Visits Authorized [id number] Closed Auto-Generate d Referral 10/29/2024 11/28/2025 1 1 Encounter Details Date Type Department Care Team (Latest Contact Info) Description 12/30/2024 9:37 AM EDT - 12/30/2024 11:59 PM EDT Hospital Encounter Radiology [address] [place] [id number] Chronic right shoulder pain [M25.511, G89.29] Discharge Disposition: Home Social History Tobacco Use Types Packs/Day Years Used Date Smoking Tobacco: Former Cigarettes 0.5 15 1 1992 Smokeless Tobacco: Never Comments:Quit years ago Alcohol Use Standard Drinks/Week Comments Yes 2 (1 standard drink = 0.6 oz pur e alcohol) 1 beer 2-3 days a week Overall Financial Resource Strain (CARDIA) Answe r Date Recorded How hard is it for you to pa y for the very basics like food, housing, medical care, and heating? Not hard at all 08/24/2023 PHQ-2 Answer Date Recorded PHQ-2 score 0 12/23/2024 Hunger Vital Sign Answer Date Recorded Within the past 12 months, y ou worried that your food would run out before you got the money to buy more. Never true 08/24/19 24 Within the past 12 months, t he food you bought just didn't last and you didn't have money to get more. Never true 08/24/2023 PRAPARE - Transportation Answer Date Re corded In the past 12 months, has l ack of transportation kept you from medical appointments or from getting medications? No 08/14 In the past 12 months, has l ack of transportation kept you from meetings, work, or from getting things needed for daily living? No 08/24/2023 Housing Stability Vital Sign Answer Ashvin e Recorded In the last 12 months, was t here a time when you were not able to pay the mortgage or rent on time? No 08/24/2023 [address] of Places Lived in the Last Year Not on f ile 08/24/2023 In the last 12 months, was t here a time when you did not have a steady place to sleep or slept in a usp (including now)? No 08/24/2023 Sex and Gender Information Value Date Recorded Sex Assigned at Not on file Legal Sex Male 8:43 AM EST Gender Identity Not on file Sexual Orientation Straight 01/26/2022 9: 28 PM EDT documented as of this encounter Functional Status * Are you deaf or do you have serious difficulty hearing? Answer Date of Assessment Author Yes 12/17/2024 12:04 PM EDT Ozzy Grewal RN * Are you blind or do you have serious difficulty seeing, even when wearing glasses? Answer Date of Assessment Author No 12/17/2024 12:04 PM EDT Ozzy Grewal RN * Do you have serious difficulty walking or climbing stairs? Answer Date of Assessment Author Yes 12/17/2024 12:04 PM GREGGT Ozzy Grewal RN * Do you have difficulty dressing or bathing? Answer Date of Assessment Author Yes 12/17/2024 12:04 PM EDT Ozzy Grewal RN * Because of a physical, mental, or emotional condition, do you have difficulty doing errands alone such as visiting a doctor's office or shopping? Answer Date of Assessment Author Yes 12/17/2024 12:04 PM Ozzy Ley RN documented as of this encounter Mental Status * Because of a physical, mental, or emotional condition, do you have serious difficulty concentrating, remembering, or making decisions? Answer Entry Date Author Yes 12/17/2024 12:04 PM Ozzy Ley RN documented in this encounter Medications at Time of Discharge aspirin, enteric coated (ECOTRIN LOW STRENGTH) 81 mg EC tablet Take 1 tablet by mouth two times a day for 14 days. 28 tablet 12/17/2024 10:32 AM EDT 12/16/2024 acetaminophen (TYLENOL EXTRA STRENGTH) 500 mg tablet Take 2 tablets by mouth every 6 hours as needed for pain. 60 tablet 12/17/2024 10:32 AM EDT 12/16/2024 finasteride (PROSCAR) 5 mg tablet Take 5 mg by mouth once daily. Fluorouracil (EFUDEX) 5 % cream Apply to affected area two times a day. rosuvastatin (CRESTOR) 20 mg tablet Take 20 mg by mouth every morning. lisinopril (ZESTRIL) 10 mg tablet Take 10 mg by mouth every morning. cyanocobalamin (VITAMIN B-12) 1,000 mcg tab Take 1,000 mcg by mouth once daily. esomeprazole (NEXIUM) 40 mg capsule 11/16/2023 DULoxetine (CYMBALTA) 30 mg capsule Take 30 mg by mouth. 09/04/2023 Melatonin 5 mg cap Take 5 mg by mouth. metFORMIN (GLUCOPHAGE) 500 mg tablet Take 500 mg by mouth. 12/24/2021 tamsulosin (FLOMAX) 0.4 mg Take 0.4 mg by mouth. 07/29/2021 docusate sodium (COLACE) 100 mg capsule Take 1 capsule by mouth two times a day for 14 days. 28 capsule 12/17/2024 10:32 AM EDT 12/16/2024 12/31/2024 documented as of this encounter Plan of Treatment Upcoming Encounters Date Type Department Care Team (Late st Contact Info) Description 01/28/2025 10:45 AM EDT Office Visit Orthopaedics [address] [place], [place] [id number] Hung Ghosh MD [address] [place] [address] TSA Pending Results Name Type Priority Associated Diagnoses Date /Time XR SHOULDER GENERAL 3V OR MORE AP/TRUE AP/OTHER RIGHT Radiology Routine Chronic right shoulder pain 12/30/2024 10:03 AM EDT documented as of this encounter Visit Diagnoses Diagnosis Chronic right shoulder pain Pain in joint, shoulder region documented in this encounter Care Teams Supervisor Rod Placing Relationship Specialty Start Date End Date Armando Richards MD [address] [place] [address], [place] [address] PCP - General Internal Medicine 08/09/23 documented as of this encounter
--- OUTSIDE RECORDS SUMMARY | 2024-12-30 10:00 | XMS_ITS | Encounter Summary ---
Author Organization [facility] Address [address] [place] [address] Care Team Providers Care Science Job Titles Name Role Phone Armando Richards MD Primary Care Provider + Source Comments In the event this information is protected by the Federal Confidentiality of Alcohol and Drug AbusePatient Records regulations: The Federal rules restrict any use of the information to criminally investigate or prosecute any alcohol or drug abuse patient.[facility] Reason for Visit * Reason Comments Post Op Encounter Details Date Type Department Care Team (Late st Contact Info) Description 12/30/2024 10:00 AM EDT Nurse Visit Orthopedics [address] [place] [address] Quinn White, ALIYAH [address] [place] [address] Glenohumeral arthritis, right (Primary Dx) Social History Tobacco Use Types Packs/Day Years Used Date Smoking Tobacco: Former Cigarettes 0.5 15 1 8 - 1992 Smokeless Tobacco: Never Comments:Quit years ago [...] place to sleep or slept in a penitentiary (including now)? No 08/24/2023 Sex and Gender [...] Author Yes 12/17/2024 12:04 PM EDT Ozzy Grewal, ALIYAH * Are you blind or do you have serious difficulty seeing, even when wearing glasses? Answer Date of Assessment Author No 12/17/2024 12:04 PM EDT Ozzy Grewal, ALIYAH * Do you have serious difficulty walking or climbing stairs? Answer Date of Assessment Author Yes 12/17/2024 12:04 PM EDT Ozzy Grewal, ALIYAH * Do you have difficulty dressing or bathing? Answer Date of Assessment Author Yes 12/17/2024 12:04 PM EDT Ozzy Grewal RN * Because of a physical, mental, or emotional condition, do you have difficulty doing errands alone such as visiting a doctor's office or shopping? Answer Date of Assessment Author Yes 12/17/2024 12:04 PM EDT Ozzy Grewal RN documented as of this encounter Mental Status * Because of a physical, mental, or emotional condition, do you have serious difficulty concentrating, remembering, or making decisions? Answer Entry Date Author Yes 12/17/2024 12:04 PM EDT Ozzy Grewal RN documented in this encounter Patient Instructions * Patient Instructions* Quinn White RN - 12/30/2024 10:11 AM EDT follow up in [address] Ghosh ok to leave incision open to air, no lotions, ointments. Ok to cover with band aid/dry dressing if needed. Call if any redness, swelling, drainage. [phone] Ok to shower in 1-2 days but no submerging in pool, hot tub, etc - pat incision dry after - do not have shower head directly pointing at incision continue range of motion exercises for hand, wrist and elbow , start pendulums and assisted elevation - remain non weight bearing with right arm. You should stay in sling unless you are bathing or doing exercises documented in this encounter Progress Notes * Quinn White RN - 12/30/2024 10:09 AM EDT ORTH CARE COORDINATION POST OPERATIVE NURSE VISIT Patient has been identified by name and date of : Yes, Patient is accompanied by: family Surgery: Right reverse Total Shoulder Arthroplasty 55032, biceps tenodesis [address]1580 Date of Surgery: 12/16/2024 Activity? Patient be nonweightbearing the right upper extremity. Okay for hand, wrist, range of motion. Pendulums at 2 weeks. Okay for supine passive forward elevation after 2 weeks. Incision? clean, dry, incision intact Follow up Appointment? Patient aware of goals, to return to ADL's, yes. Any barriers to achieving goal? No PAIN EVALUATION 12/30/2024 1014 Pain Level: 4 Pain Location: Shoulder-Right Description: Burning Duration Amount of Time: 2 Duration Units: Weeks Frequency: Continuous Intervention/Comfort measure: Reposition Medication Update: Yes: Pt doing well today. Pt dressing removed, skin intact, slight pink around. Pt will watch for any signs of infections or change in wound. Pt to remain in sling, NWB Given new pendulums and forward elevation exercises on paper and demostration. Pt has follow up for [address] Ghosh scheduled. Sling adjusted Quinn White, RN documented in this encounter Plan of Treatment Upcoming Encounters Date Type Department Care Team (Late st Contact Info) Description 01/28/2025 10:45 AM EDT Office Visit Orthopaedics [address] [place] [address] Hung Ghosh MD [address] [place] [address] TSA documented as of this encounter Visit Diagnoses Diagnosis Glenohumeral arthritis, right- Primary documented in this encounter Care Teams Science Job Titles Relationship Specialty Start Date End Date Armando Richards MD [address] [place] [address], [address] [place] [address] PCP - General Internal Medicine 08/09/23 documented as of this encounter
--- OUTSIDE RECORDS SUMMARY | 2025-01-01 10:20 | XMS_ITS | Encounter Summary ---
Author Organization [facility] tem Address [id number] [address] [place] [address] Care Team Providers Care Pastry Artist Name Role Phone Armando Richards MD Primary Care Provider [phone] Encounter Details Date Type Department Care Team (Late st Contact Info) Description 03/29/2021 Telephone [facility] Internal Medicine/Pediatrics [address] [place] [address] [address] [place] [address] Armando Richards MD [address] [place] [address], [address] [place], [place] [id number] Social History Tobacco Use Types Packs/Day Years Used Date Smoking Tobacco: Former Smokeless Tobacco: Never Alcohol Use Standard Drinks/Week Comments Yes 0 (1 standard drink = 0.6 oz pur e alcohol) AUDIT-C Answer Date Recorded Frequency of Alcohol Consumption 4 or more times a week 09/15/2020 Average Number of Drinks 1 or 2 021 Frequency of Binge Drinking Not on file 09/2020 PHQ-2 Answer Date Recorded Total Score 4 09/15/2020 Childcare Answer Date Recorded Childcare Unknown 01/17/2019 Employment Answer Date Recorded Employment Unknown 01/17/2019 Purpose - Life Answer Date Recorded Purpose and direction in life Unknown Sex and Gender Information Value Date Recorded Sex Assigned at Not on file Legal Sex Male 11:31 AM EDT Gender Identity Not on file Sexual Orientation Not on file COVID-19 Exposure Response Date Recorded In the last month, have you been in contact with someone who was confirmed or suspected to have Coronavirus / COVID-19? No / Unsure 03/23/2021 4:37 PM EDT documented as of this encounter Miscellaneous Notes * Telephone Encounter - Fabienne Barton - 03/29/2021 10:57 AM EDT Transition of Care (*required) *Additional Questions/Concerns Requiring PCP Follow-Up: Hand is healing, still having some pain from shingles, BM moving slowly, and he is eating a lot. This documentation is being used for Transition of Care purposes: Yes Goal: Patient will demonstrate a safe transition Diagnosis on Discharge: elevated serum calcium and mild acute kidney injury, shingles *Name of Discharging Facility: [facility] Date of Facility Discharge: 03/26/21 Date of Interactive Contact and Name of Cryptologic Linguist: 03/29/21 Tyler payne *Medication Review Completed: Yes Medication Reconciliation Questions/Concerns: Not st this time *Follow Up Appointments with Providers: Primary: Armando Richards MD Specialty: Specialty: Specialty: Review of Pending Lab/Diagnostic Tests and Plan for Completion: yes Assessment and Support of Treatment Regimen Adherence and Medication Management: yes Education Provided by ACN to Support Self-Management, Independent Living and ADLs: yes Communication with Home Health Agencies and Other Services Utilized/Needed by the Patient: no documented in this encounter Plan of Treatment Upcoming Encounters Date Type Department Care Team (Late st Contact Info) Description 06/02/2025 10:15 AM EDT Office Visit [facility] Internal Medicine/Pediatrics [address] [place] [address] [address] [place] [address] Armando Richards MD [address] [place] [address], [address] [place], [place] [id number] 06/03/2025 9:30 AM EDT Appointment [facility] - Vascular [address] [address] Adriana Russell, DO [address] [facility] [address] [place] [address] 06/09/2025 10:00 AM EDT Office Visit [facility] [place] [address] [place] [address] Adriana Russell, [address] [place] [address] [place] [address] documented as of this encounter Goals Goal Patient Goal Type Associated Problems Recent Progress Patient-Stated? Author Safe dc General Yes Delilah Marroquin, MARIN Note: Evaluation of progress towards goal: Safe dc transition from hospital to home. documented as of this encounter Visit Diagnoses Not on filedocumented in this encounter Additional Health Concerns Assessment Noted Time PHQ-9 Depression Total Score: 4 09/15/19 21 9:15 AM EST documented as of this encounter Care Teams Pastry Artist Relationship Specialty Start Date End Date Armando Richards MD [address] [place] [address], [address] [place] [address] PCP - General Pediatrics 12/10/23 documented as of this encounter
--- NOTE | 2025-01-01 10:21 | US_ITS ---
The [address] [address] Patient Name: ELIESER TORRES MRN: [id number] date: 1945 Sex: M Assigned Patient Location: US Current Patient Location: US Accession/Order Number: [id number] Exam Date: 01/01/2025 11:20 Report Date: 01/01/2025 11:28 At the request of: OLU OSSA MD Procedure: US renal BI BILATERAL RENAL AND BLADDER ULTRASOUND CLINICAL HISTORY: Kidney Stones, Renal Cysts COMPARISON: 09/05/[address] 10/18/2024 Estimation of renal size is approximately 10.6 cm on the right and 12.0 cm on the left. There is an echogenic shadowing focus at the lower pole of the right kidney measuring approximately 1 cm in size that may be a stone. This appears smaller than the prior. There is also possible cortical stone at the midpole on the left measuring 7 mm. No hydronephrosis is noted. A cyst is present at the midpole of the right kidney measuring 16 mm in size. There are multiple renal cysts on the left. The largest are at the superior pole measuring 5.0 x 5.6 x 4.2 cm and at the midpole measuring 3.4 x 3.1 x 3.2 cm. There is no perinephric fluid. The urinary bladder is partially distended with a volume of 78 mL. No obvious contour or intraluminal abnormalities are seen. 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 NO OBSTRUCTIVE UROPATHY. Impression dictated by: Rosa Vieira M.D. 01/01/2025 11:28 AM Dictation Location: [place] [address] Electronically authenticated by: [id number] Y Date: 01/01/2025 11:28
--- OUTSIDE RECORDS SUMMARY | 2025-01-01 10:21 | XMS_ITS | Encounter Summary ---
Author Organization [employer] [facility] tem Address [id number] [address] [place] [address] Care Team Providers Care Technical Planner Name Role Phone Armando Richards MD Primary Care Provider [phone] Encounter Details Date Type Department Care Team (Late st Contact Info) Description 05/19/2022 Orders Only [facility] Internal Medicine/Pediatrics [address] [place] [phone] External, Scanning Provider Social History Tobacco Use Types Packs/Day Years [...] 09/2020 PHQ-2 Answer Date Recorded Total Score 1 03/11/2022 Childcare Answer Date Recorded Childcare Unknown 01/17/2019 Employment Answer Date Recorded Employment Unknown 01/17/2019 Purpose - Life Answer Date Recorded Purpose and direction in life Unknown Sex and Gender Information Value Date Recorded Sex Assigned at Not on file Legal Sex Male 11:31 AM EDT Gender Identity Not on file Sexual Orientation Not on file documented as of this encounter Plan of Treatment Upcoming Encounters Date Type Department Care Team (Late st Contact Info) Description 06/02/2025 10:15 AM EDT Office Visit [facility] Internal Medicine/Pediatrics [address] [place] [address] Armando Richards MD [address] [facility], [address] [place], [place] [id number] 06/03/2025 9:30 AM EDT Appointment [facility] - Vascular [address] [place] [address] Adriana Russell, DO [address] [place] [address] 06/09/2025 10:00 AM EDT Office Visit [facility] [address] [place] [address] Adirana Russell, DO [address] [place] [address] documented as of this encounter Goals Goal Patient Goal Type Associated Problems Recent Progress Patient-Stated? Author Safe dc General Yes Delilah Marroquin, MARIN Note: Evaluation of progress towards goal: Safe dc transition from hospital to home. documented as of this encounter Procedures Procedure Name Priority Date/Time Associated Diagnosis Comments MULTIPLE LABS Routine 05/16/2022 SARS COV 2 (COVID-19) STAT 05/16/2022 documented in this encounter Results * SARS COV 2 (COVID-19) (05/16/2022) EXTERNAL SARS COV 2 Negative Negative MANUALLY TRANSCRIBED RESULTS NASOPHARYNGEAL 05/16/2022 us Scanning Provider External MICROBIOLOGY - GENERA L ORDERABLES Final Result MANUALLY TRANSCRIBED RESULTS * Multiple labs (05/16/2022) 05/16/2022 us Scanning Provider External [place] [facility] Final Result MANUALLY TRANSCRIBED RESULTS documented in this encounter Visit Diagnoses Not on filedocumented in this encounter Additional Health Concerns Assessment Noted Time PHQ-9 Depression Total Score: 1 03/11/20 22 8:00 AM EDT documented as of this encounter Care Teams Technical Planner Relationship Specialty Start Date End Date Armando Richards MD [address] [place] [address], [address] [place] [address] PCP - General Pediatrics 12/10/23 documented as of this encounter
--- OUTSIDE RECORDS SUMMARY | 2025-01-01 10:21 | XMS_ITS | Encounter Summary ---
Author Organization [facility] tem Address [facility]-[id number] [address] [place] [address] Care Team Providers Care Pigment Grinder Name Role Phone Armando Richards MD Primary Care Provider [phone] Encounter Details Date Type Department Care Team (Late st Contact Info) Description 11/04/2022 [facility]phone [facility] [address] [place] [address] [phone] Leslie Rdz MD [address], [facility] [address] [place], [place] [phone] Social History Tobacco Use Types Packs/Day Years [...] have Coronavirus / COVID-19? No / Unsure 11/02/2022 9:07 AM EDT documented as of this encounter Miscellaneous Notes * Telephone Encounter - Patricia Saldaña - 11/04/2022 11:23 AM EDT blank documented in this encounter Plan of Treatment Upcoming Encounters Date Type Department Care Team (Late st Contact Info) Description 06/02/2025 10:15 AM EDT Office Visit [facility] Internal Medicine/Pediatrics [address] [place] [address] 1 [place] [address] Armando Richards MD [address] [place] [address], [address] [place] [address] 06/03/2025 9:30 AM EDT Appointment [facility] - Vascular [address] [place] [address] Adriana Russell, DO [address] [facility] [address] [place] [address] 06/09/2025 10:00 AM EDT Office Visit [facility] [address] [place] [address] Adriana Russell, DO [address] [facility] [address] [place] [address] documented as of this encounter Goals Goal [...] documented as of this encounter Care Teams Pigment Grinder Relationship Specialty Start Date End Date Armando Richards MD [facility], [address] [place] [address] PCP - General Pediatrics 12/10/23 documented as of this encounter
--- OUTSIDE RECORDS SUMMARY | 2025-01-01 10:21 | XMS_ITS | Encounter Summary ---
Author Organization [employer] [facility] tem Address [facility]-[id number] [address] [place] [address] Care Team Providers Care Sliver Lap Tender Name Role Phone Armando Richards MD Primary Care Provider [phone] Encounter Details Date Type Department Care Team (Late st Contact Info) Description 01/23/2023 Orders Only [facility] Internal Medicine/Pediatrics [address] [place] [address] External, Scanning Provider Social History Tobacco Use [...] Internal Medicine/Pediatrics [address] [place] [address] Armando Richards MD [address] [place] [address], [address] [place], [place] [id number] 06/03/2025 9:30 AM EDT Appointment [facility] - Vascular [address] [place] [address] Adriana Russell, DO [address] [place] [address] 06/09/2025 10:00 AM EDT Office Visit [facility] [address] [place] [address] Adriana Russell, DO [address] [place] [address] documented as of this encounter Goals Goal Patient Goal Type Associated Problems Recent Progress Patient-Stated? Author Safe dc General Yes Delilah Marroquin LSW Note: Evaluation of progress towards goal: Safe dc transition from hospital to home. documented as of this encounter Procedures Procedure Name Priority Date/Time Associated Diagnosis Comments URINE CULTURE Routine 01/18/2023 documented in this encounter Results * Urine Culture (01/18/2023) Urine 01/18/2023 us Scanning Provider External MICROBIOLOGY - GENERA L ORDERABLES Final Result MANUALLY TRANSCRIBED RESULTS documented in this encounter Visit Diagnoses Not on filedocumented in this encounter Additional Health Concerns Assessment Noted Time PHQ-9 Depression Total Score: 1 03/11/20 22 8:00 AM EDT documented as of this encounter Care Teams Sliver Lap Tender Relationship Specialty Start Date End Date Armando Richards MD [address] [place] [address], [address] [place], [place] [phone] PCP - General Pediatrics 12/10/23 documented as of this encounter
--- OUTSIDE RECORDS SUMMARY | 2025-01-01 10:21 | XMS_ITS | Encounter Summary ---
Author Organization [facility] tem Address [id number] [address] [place] [address] Care Team Providers Care Varnisher Plasticoater Name Role Phone Armando Richards MD Primary Care Provider [phone] Encounter Details Date Type Department Care Team (Late st Contact Info) Description 01/29/2024 Orders Only [facility] Internal Medicine/Pediatrics [address] [place] [phone] External, Scanning Provider Social History Tobacco Use [...] 05/24/2023 PHQ-2 Answer Date Recorded Total Score 2 05/24/2023 PRAPARE - Transportation Answer Date Re corded In the past 12 months, has l ack of transportation kept you from medical appointments or from getting medications? No 05/14 In the past 12 months, has l ack of transportation kept you from meetings, work, or from getting things needed for daily living? No 05/24/2023 Housing Instability Answer Date Recorde d Are you worried or concerned that in the next two months you may not have stable housing that you own, rent or stay in as a part of a household? No 05/24/2023 Childcare Answer Date Recorded Childcare Unknown 01/17/2019 Employment Answer Date Recorded Employment Unknown 01/17/2019 Hunger Screening Answer Date Recorded Within the past 12 months we worried whether our food would run out before we got money to buy more. Never True 12/10/2023 Within the past 12 months th e food we bought just didn't last and we didn't have money to get more. Never True 12/10/2023 Purpose - Life Answer Date Recorded Purpose [...] Description 06/02/2025 10:15 AM EDT Office Visit [facility] Internal Medicine/Pediatrics [address] [place] [phone] Armando Richards MD [address] [place] [address], [address] [place] [address] 06/03/2025 9:30 AM EDT Appointment [facility] - Vascular [address] [place] [address] Adriana Russell, [email or web address] [place] [address] 06/09/2025 10:00 AM EDT Office Visit [facility] [address] [place] [address] Adriana Russell DO [email or web address] [place] [address] documented as of this encounter Goals Goal Patient Goal Type Associated Problems Recent Progress Patient-Stated? Author Safe dc General Yes Lopez, Delilah, CONSULTING SERVICES ASSOCIATE Note: Evaluation of progress towards goal: Safe dc transition from hospital to home. documented as of this encounter Procedures Procedure Name Priority Date/Time Associated Diagnosis Comments US RETROPERITONEAL COMPLETE Routine 01/24/2024 XR ABDOMEN AP 1 VW Routine 01/24/2024 documented in this encounter Results * X-ray abdomen ap 1 view (01/24/2024) Anatomical Region Laterality Modality Body, Abdomen N/A Computed Radiogr aphy 01/24/2024 us Scanning Provider External IMG DIAGNOSTIC IMAGIN G ORDERABLES Final Result * Ultrasound retroperitoneal complete (01/24/2024) Anatomical Region Laterality Modality Body Ultrasound 01/24/2024 us Scanning Provider External IMG US ORDERABLES Fin al Result documented in this encounter Visit Diagnoses Not on filedocumented in this encounter Additional Health Concerns Assessment Noted Time PHQ-9 Depression Total Score: 2 05/24/20 23 12:28 PM EDT documented as of this encounter Care Teams Varnisher Plasticoater Relationship Specialty Start Date End Date Armando Richards MD [address] [place] [address], [address] [place] [address] PCP - General Pediatrics 12/10/23 documented as of this encounter
--- OUTSIDE RECORDS SUMMARY | 2025-01-01 10:21 | XMS_ITS | Encounter Summary ---
Author Organization [facility] tem Address [id number] [address] [place] [address] Care Team Providers Care Crop Adjuster Name Role Phone Armando Richards MD Primary Care Provider [phone] Encounter Details Date Type Department Care Team (Late st Contact Info) Description 02/02/2023 Orders Only [facility] Internal Medicine/Pediatrics [address] [place] [phone] External, Scanning Provider Social History Tobacco Use [...] Internal Medicine/Pediatrics [address] [place] [address] Armando Richards MD [address] [place] [address], [address] [place], [place] [phone] 06/03/2025 9:30 AM EDT Appointment [facility] - Vascular [address] [place] [phone] Adriana Russell, DO [address] [place] [address] 06/09/2025 10:00 AM EDT Office Visit [facility] [address] [place] [address] Adriana Russell, DO [address] [place] [address] documented as of this encounter Goals Goal Patient Goal Type Associated Problems Recent Progress Patient-Stated? Author Safe dc General Yes Delilah Marroquin LSW Note: Evaluation of progress towards goal: Safe dc transition from hospital to home. documented as of this encounter Procedures Procedure Name Priority Date/Time Associated Diagnosis Comments EGD Routine 02/02/2023 documented in this encounter Results * EGD (02/02/2023) 02/02/2023 us Scanning Provider External GI PROCEDURE ORDERABL ES Final Result MANUALLY TRANSCRIBED RESULTS documented in this encounter Visit Diagnoses Not on filedocumented in this encounter Additional Health Concerns Assessment Noted Time PHQ-9 Depression Total Score: 1 03/11/20 22 8:00 AM EDT documented as of this encounter Care Teams Crop Adjuster Relationship Specialty Start Date End Date Armando Richards MD [address] [place] [address], [address] [place] [id number] PCP - General Pediatrics 12/10/23 documented as of this encounter
--- OUTSIDE RECORDS SUMMARY | 2025-01-01 10:21 | XMS_ITS | Encounter Summary ---
Author Organization [facility] [employer] [facility] [facility] Address [id number] [address] [place] [address] Care Team Providers Care Oracle R12 Developer Name Role Phone Armando Richards MD Primary Care Provider [phone] Reason for Visit * Reason Comments Med Refill Encounter Details Date Type Department Care Team (Late st Contact Info) Description 08/16/2020 Refill [facility] Internal Medicine/Pediatrics [address] [place] [address] 1 [place] [phone] Armando Richards MD [address] [place] [address], [address] [place], [place] [phone] Social History Tobacco Use Types Packs/Day Years Used Date Smoking Tobacco: Former Smokeless Tobacco: Never Alcohol Use Standard Drinks/Week Comments Yes 0 (1 standard drink = 0.6 oz pur e alcohol) AUDIT-C Answer Date Recorded Frequency of Alcohol Consumption 4 or more times a week 05/16/2018 Average Number of Drinks 1 or 2 018 Frequency of Binge Drinking Not on file 10/2017 Childcare Answer Date Recorded Childcare Unknown 01/17/2019 Employment Answer Date Recorded Employment Unknown 01/17/2019 Sex and Gender Information Value Date Recorded Sex Assigned at Not on file Legal Sex Male 11:31 AM EDT Gender Identity Not on file Sexual Orientation Not on file documented as of this encounter Miscellaneous Notes * Telephone Encounter - Lilli Wu CMA - 08/16/2020 12:20 AM EST Patient needs an appointment for any refills documented in this encounter Plan of Treatment Upcoming Encounters Date Type Department Care Team (Late st Contact Info) Description 06/02/2025 10:15 AM EDT Office Visit [facility] Internal Medicine/Pediatrics [address] [place] [address] 1 [place] [address] Armando Richards MD [address] [place] [address], [address] [place] [address] 06/03/2025 9:30 AM EDT Appointment [facility] - Vascular [address] [place] [address] Adriana Russell, DO [address] [place] [address] 06/09/2025 10:00 AM EDT Office Visit [facility] [address] [place] [address] Adriana Russell, DO [address] [place] [address] documented as of this encounter Visit Diagnoses Not on filedocumented in this encounter Additional Health Concerns Infection Onset Date Last Indicated Resolved Time 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
--- OUTSIDE RECORDS SUMMARY | 2025-01-01 10:21 | XMS_ITS | Clinical Summary ---
Author Organization [facility] Healthcare Address [address] [place] [address] Care Team Providers Care Feather Sawyer Name Role Phone Unavailable Primary Care Provider Unavailabl e Allergies No known active allergies Medications celecoxib (CeleBREX) 200 MG capsule Take 200 mg by mouth in the morning. Active cetirizine (ZyrTEC) 10 MG tablet Take 10 mg by mouth 1 (one) time each day at the same time. Active cholecalciferol (Vitamin D-3) 50 MCG (2000 UT) capsule Take 2,000 Units by mouth in the morning. Active meloxicam (Mobic) 15 MG tablet Take 15 mg by mouth 1 (one) time each day at the same time. Active metFORMIN (Glucophage) 500 MG tablet Take 500 mg by mouth 1 (one) time each day at the same time. Active omeprazole (PriLOSEC) [address] capsule Take 1 capsule by mouth 1 (one) time each day at the same time. Active esomeprazole (NexIUM) [address] capsule Take 40 mg by mouth in the morning and 40 mg before bedtime. 05/04/2023 Active gabapentin (Neurontin) 300 MG capsule Take 600 mg by mouth in the morning and 600 mg in the evening and 600 mg before bedtime. Active oxyCODONE (Roxicodone) 5 MG immediate release tablet Take 5 mg by mouth in the morning and 5 mg in the evening. 05/09/2023 Active tamsulosin (Flomax) 0.4 MG 24 hr capsule 05/25/2023 Activ e Active Problems Problem Noted Date Diagnosed Date Degenerative disc disease, lumbar 01/04/2023 HNP (herniated nucleus pulposus), lumbar 023 Diabetes mellitus without complication 3 Dysphagia 01/04/2023 Gastritis 01/04/2023 Lumbago with sciatica, left side 01/04/2023 Lumbago with sciatica, right side 01/04/2023 Peripheral venous insufficiency 01/04/2023 Pressure injury of left thigh, stage 2 3 Primary osteoarthritis of left knee 01/04/2023 Spondylolisthesis of lumbar region 01/04/2023 Encounters Date Type Department Care Team Description 10/24/2024 1:00 PM EDT Office Visit [facility] [address] [place] [address] Manan Baker DPM Type 2 diabetes mellitus without complication, with long-term current use of insulin ([facility]) (Primary Dx); Pain due to onychomycosis of toenails of both feet 10/24/2024 Bamboo flowsheet [facility] [address] [facility] [address] [place] [address] Manan Baker DPM 10/24/2024 Travel 10/17/2024 Travel from Last 3 Months Family History Medical History Relation Name Comments Cancer Mother Relation Name Status Comments Father Mother Social History Tobacco Use Types Packs/Day Years Used Date Smoking Tobacco: Former Cigarettes 1 1978 Passive Smoke Exposure: Past Smokeless Tobacco: Never Tobacco Cessation:Counseling Given: Yes Alcohol Use Standard Drinks/Week Comments Yes 4 (1 standard drink = 0.6 oz pur e alcohol) 4 or more times a week Sex and Gender Information Value Date Recorded Sex Assigned at Not on file Legal Sex Male 8:24 PM EDT Gender Identity Not on file Sexual Orientation Not on file Last Filed Vital Signs Vital Sign Reading Time Taken Comments Blood Pressure 128/79 06/06/2024 2:35 PM EDT Pulse 81 06/06/2024 2:35 PM EDT Temperature - - Respiratory Rate 18 10/24/2024 1:03 PM EDT Oxygen Saturation - - Inhaled Oxygen Concentration - - Weight 77.1 kg (170 lb) 10/24/2024 1:03 PM EDT Height 180.3 cm (5' 11 ) 10/24/2024 1:03 PM EDT Body Mass Index 23.71 10/24/2024 1:03 PM EDT Plan of Treatment Upcoming Encounters Date Type Department Care Team (Late st Contact Info) Description 01/02/2025 1:10 PM EDT Office Visit [facility] [address] [facility] [address] [place] [phone] Manan Baker DPM [address] [facility] [address] [place] [address] Health Maintenance Due Date Last Done Comments Pneumococcal Vaccine: 65+ Ye ars (2 of 2 - PPSV23) 04/09/2020 04/09/2019 Influenza Vaccine Completed 05/08/2024, , 06/09/2022, Additional history exists Insurance [employer] [place]
--- OUTSIDE RECORDS SUMMARY | 2025-01-01 10:21 | XMS_ITS | Encounter Summary ---
Author Organization [facility] Address [address] [place] [address] Care Team Providers Care Video Camera Operator Name Role Phone Armando Richards MD Primary Care Provider + Source Comments In the event this information is protected by the Federal Confidentiality of Alcohol and Drug AbusePatient Records regulations: The Federal rules restrict any use of the information to criminally investigate or prosecute any alcohol or drug abuse patient.[facility] Encounter Details Date Type Department Care Team (Late Contact Info) Description 07/27/2023 Patient Msg Pre Anesthesia [address] [place] [address] Provider, [facility] PACC appt check in Social History Tobacco Use Types Packs/Day Years Used Date Smoking Tobacco: Former Cigarettes 0.5 15 Smokeless Tobacco: Never Comments:Quit years ago Alcohol Use Standard Drinks/Week Comments Yes 2 (1 standard drink = 0.6 oz pur e alcohol) PHQ-2 Answer Date Recorded PHQ-2 score 2 01/29/2023 Sex and Gender Information Value Date Recorded Sex Assigned at Not on file Legal Sex Male 8:43 AM EST Gender Identity Not on file Sexual Orientation Straight 01/26/2022 9: 28 PM EDT documented as of this encounter Plan of Treatment Upcoming Encounters Date Type Department Care Team (Late Contact Info) Description 01/28/2025 10:45 AM EDT Office Visit [facility] [address] [place], [place] [phone] Hung Ghosh MD [address] [place] [address] TSA documented as of this encounter Visit Diagnoses Not on filedocumented in this encounter Care Teams Video Camera Operator Relationship Specialty Start Date End Date Armando Richards MD [address] [place] [address], [address] [place] [address] PCP - General Internal Medicine 08/09/23 documented as of this encounter
--- OUTSIDE RECORDS SUMMARY | 2025-01-01 10:21 | XMS_ITS | Encounter Summary ---
Author Organization [facility] Address [facility] [id number] [address] [place] [address] Care Team Providers Care Independent Living Specialist Name Role Phone Armando Richards MD Primary Care Provider [phone] Reason for Visit * Reason Comments Med Refill Encounter Details Date Type Department Care Team (Late st Contact Info) Description 04/13/2021 Refill [facility] Internal Medicine/Pediatrics [address] [place] [address] 1 [place] [phone] Armando Richards MD [address] [place] [address], [address] [place], [place] [phone] Right upper quadrant abdominal pain Social History Tobacco Use Types Packs/Day Years [...] have Coronavirus / COVID-19? No / Unsure 04/05/2021 10:11 AM EDT documented as of this encounter Plan of Treatment Upcoming Encounters Date Type Department Care Team (Late st Contact Info) Description 06/02/2025 10:15 AM EDT Office Visit [facility] Internal Medicine/Pediatrics [address] [place] [address] [address] [place] [address] Armando Richards MD [address] [place] [address], [address] [place] [address] 06/03/2025 9:[address] [facility] - Vascular [address] [place] [address] Adriana Russell, DO [address] [place] [address] 06/09/2025 10:00 AM EDT Office Visit [facility] [address] [place] [address] Adriana Russell, DO [address] [place] [address] documented as of this encounter Goals Goal Patient Goal Type Associated Problems Recent Progress Patient-Stated? Author Safe dc General Yes Delilah Marroquin LSW Note: Evaluation of progress towards goal: Safe dc transition from hospital to home. documented as of this encounter Visit Diagnoses Diagnosis Right upper quadrant abdominal pain documented in this encounter Additional Health Concerns Assessment Noted Time PHQ-9 Depression Total Score: 4 09/15/19 21 9:15 AM EST documented as of this encounter Care Teams Independent Living Specialist Relationship Specialty Start Date End Date Armando Richards MD [address] [place] [address], [address] [place] [address] PCP - General Pediatrics 12/10/23 documented as of this encounter
--- OUTSIDE RECORDS SUMMARY | 2025-01-01 10:21 | XMS_ITS | Encounter Summary ---
Author Organization [facility] Address [id number] [address] [place] [address] Care Team Providers Care Fruit Cutter Name Role Phone Armando Richards MD Primary Care Provider [phone] Encounter Details Date Type Department Care Team (Late st Contact Info) Description 12/20/2023 Orders Only [facility] Internal Medicine/Pediatrics [address] [place] [phone] External, Scanning Provider Social History Tobacco Use [...] Description 06/02/2025 10:15 AM EDT Office Visit [facility] Internal Medicine/Pediatrics [address] [place] [phone] Armando Richards MD [address] [place] [address], [address] [place] [address] 06/03/2025 9:30 AM EDT Appointment [facility] - Vascular [address] [place] [address] Adriana Russell, [address] [employer] [address] [employer] [address] [place] [address] 06/09/2025 10:00 AM EDT Office Visit [facility] [address] [place] [address] Adriana Russell DO [address] [employer] [place] [address] documented as of this encounter Goals Goal Patient Goal Type Associated Problems Recent Progress Patient-Stated? Author Safe dc General Yes Lopez, Delilah, SUPERVISOR POWDERED SUGAR Note: Evaluation of progress towards goal: Safe dc transition from hospital to home. documented as of this encounter Procedures Procedure Name Priority Date/Time Associated Diagnosis Comments US RETROPERITONEAL COMPLETE Routine 12/19/2023 XR ABDOMEN AP 1 VW Routine 12/19/2023 documented in this encounter Results * X-ray abdomen ap 1 view (12/19/2023) Anatomical Region Laterality Modality Body, Abdomen N/A Computed Radiogr aphy 12/19/2023 us Scanning Provider External IMG DIAGNOSTIC IMAGIN G ORDERABLES Final Result * Ultrasound retroperitoneal complete (12/19/2023) Anatomical Region Laterality Modality Body Ultrasound 12/19/2023 us Scanning Provider External IMG US ORDERABLES Fin al Result documented in this encounter Visit Diagnoses Not on filedocumented in this encounter Additional Health Concerns Assessment Noted Time PHQ-9 Depression Total Score: 2 05/24/20 23 12:28 PM EDT documented as of this encounter Care Teams Fruit Cutter Relationship Specialty Start Date End Date Armando Richards MD [address] [place] [address], 1 [place] [address] PCP - General Pediatrics 12/10/23 documented as of this encounter
--- OUTSIDE RECORDS SUMMARY | 2025-01-01 10:21 | XMS_ITS | Encounter Summary ---
Author Organization [facility] Address [address] [place] [address] Care Team Providers Care Personal Financial Advisor Name Role Phone Armando Richards MD Primary Care Provider + Source Comments In the event this information is protected by the Federal Confidentiality of Alcohol and Drug AbusePatient Records regulations: The Federal rules restrict any use of the information to criminally investigate or prosecute any alcohol or drug abuse patient.[facility] Encounter Details Date Type Department Care Team (Late st Contact Info) Description 12/05/2024 Patient Msg Orthopaedics [address] [place] [address] Provider, Ccf follow up Social History Tobacco Use Types Packs/Day Years Used Date Smoking Tobacco: Former Cigarettes 0.5 15 1 978 - 1992 Smokeless Tobacco: Never Comments:Quit years [...] 08/24/2023 PHQ-2 Answer Date Recorded PHQ-2 score 1 10/09/2024 Hunger Vital Sign Answer Date Recorded Within [...] place to sleep or slept in a skilled nursing (including now)? No 08/24/2023 Sex and Gender Information Value Date Recorded Sex Assigned at Not on file Legal Sex Male 8:43 AM EST Gender Identity Not on file Sexual Orientation Straight 01/26/2022 9: 28 PM EDT documented as of this encounter Functional Status * Are you deaf or do you have serious difficulty hearing? Answer Date of Assessment Author No 07/26/2024 6:23 PM Terri Katz RN * Are you blind or do you have serious difficulty seeing, even when wearing glasses? Answer Date of Assessment Author No 07/26/2024 6:23 PM Terri Katz RN * Do you have serious difficulty walking or climbing stairs? Answer Date of Assessment Author No 07/26/2024 6:23 PM Terri Katz RN * Do you have difficulty dressing or bathing? Answer Date of Assessment Author No 07/26/2024 6:23 PM Terri Katz RN * Because of a physical, mental, or emotional condition, do you have difficulty doing errands alone such as visiting a doctor's office or shopping? Answer Date of Assessment Author Yes 07/26/2024 6:23 PM Terri Katz RN documented as of this encounter Mental Status * Because of a physical, mental, or emotional condition, do you have serious difficulty concentrating, remembering, or making decisions? Answer Entry Date Author No 07/26/2024 6:23 PM EST Terri Baker RN documented in this encounter Plan of Treatment Upcoming Encounters Date Type Department Care Team (Late st Contact Info) Description 01/28/2025 10:45 AM EDT Office Visit Orthopaedics [address] [place], [place] [phone] Hung Ghosh MD [address] [place], [place] [phone] TSA documented as of this encounter Visit Diagnoses Not on filedocumented in this encounter Care Teams Personal Financial Advisor Relationship Specialty Start Date End Date Armando Richards MD [address] [place] [address], [address] [place] [address] PCP - General Internal Medicine 08/09/23 documented as of this encounter
--- OUTSIDE RECORDS SUMMARY | 2025-01-01 10:21 | XMS_ITS | Encounter Summary ---
Author Organization [facility] Address [address] [place] [address] Care Team Providers Care Gravure Printing Machinist Name Role Phone Armando Richards MD Primary Care Provider + Source Comments In the event this information is protected by the Federal Confidentiality of Alcohol and Drug AbusePatient Records regulations: The Federal rules restrict any use of the information to criminally investigate or prosecute any alcohol or drug abuse patient.[facility] Encounter Details Date Type Department Care Team (Late st Contact Info) Description 12/12/2024 Patient [facility] [place] [id number] [place] [phone] Provider, Ccf reschedule Social History Tobacco Use Types Packs/Day Years [...] place to sleep or slept in a custodial (including now)? No 08/24/2023 Sex and Gender [...] Entry Date Author No 07/26/2024 6:23 PM Terri Katz RN documented in this encounter Plan of Treatment Upcoming Encounters Date Type Department Care Team (Late st Contact Info) Description 01/28/2025 10:45 AM EDT Office Visit Orthopaedics [address] [place], [place] [phone] Hung Ghosh MD [address] [place] [address] TSA documented as of this encounter Visit Diagnoses Not on filedocumented in this encounter Care Teams Gravure Printing Machinist Relationship Specialty Start Date End Date Armando Richards MD [address] [place] [address], 1 [place] [address] PCP - General Internal Medicine 08/09/23 documented as of this encounter
--- OUTSIDE RECORDS SUMMARY | 2025-01-01 10:21 | XMS_ITS | Encounter Summary ---
Author Organization [facility] tem Address [facility] [place]-[id number] [address] [place] [address] Care Team Providers Care Electrician Sound Name Role Phone Armando Richards MD Primary Care Provider [phone] Encounter Details Date Type Department Care Team (Late st Contact Info) Description 10/30/2020 Orders Only [facility] Internal Medicine/Pediatrics [address] [place] [phone] External, Scanning Provider Social History Tobacco Use [...] Internal Medicine/Pediatrics [address] [place] [address] Armando Richards MD [address] [facility], [address] [place] [address] 06/03/2025 9:30 AM EDT Appointment [facility] - Vascular [address] [place] [address] Adriana Russell, DO [address] [place] [address] 06/09/2025 10:00 AM EDT Office Visit [facility] [address] [place] [address] Adriana Russell, DO [address] [place] [address] documented as of this encounter Visit Diagnoses Not on filedocumented in this encounter Additional Health Concerns Infection Onset Date Last Indicated Resolved Time 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
--- OUTSIDE RECORDS SUMMARY | 2025-01-01 10:21 | XMS_ITS | Encounter Summary ---
Author Organization [facility] Address [address] [place] [address] Care Team Providers Care Funeral Home Location Manager Name Role Phone Armando Richards MD Primary Care Provider + Source Comments In the event this information is protected by the Federal Confidentiality of Alcohol and Drug AbusePatient Records regulations: The Federal rules restrict any use of the information to criminally investigate or prosecute any alcohol or drug abuse patient.[facility] Encounter Details Date Type Department Care Team (Late st Contact Info) Description 08/10/2023 Patient Msg Spine [place] [address] [place] [address] Provider, Ccf Important Reminder for Preparing Your Skin for Surgery Social History Tobacco Use Types Packs/Day Years Used Date Smoking Tobacco: Former Cigarettes 0.5 15 1 978 - 1992 Smokeless Tobacco: Never Comments:Quit years ago Alcohol Use Standard Drinks/Week Comments Yes 2 (1 standard drink = 0.6 oz pur e alcohol) 1 beer 2-3 days a week PHQ-2 Answer Date Recorded PHQ-2 score 3 08/14/2023 Sex and Gender Information Value Date Recorded Sex Assigned at Not on file Legal Sex Male 8:43 AM EST Gender Identity Not on file Sexual Orientation Straight 01/26/2022 9: 28 PM EDT documented as of this encounter Plan of Treatment Upcoming Encounters Date Type Department Care Team (Late st Contact Info) Description 01/28/2025 10:45 AM EDT Office Visit Orthopaedics [address] [place], [place] [phone] Hung Ghosh MD [address] [place] [address] TSA documented as of this encounter Visit Diagnoses Not on filedocumented in this encounter Care Teams Funeral Home Location Manager Relationship Specialty Start Date End Date Armando Richards MD [address] [place] [address], [address] [place] [address] PCP - General Internal Medicine 08/09/23 documented as of this encounter
--- OUTSIDE RECORDS SUMMARY | 2025-01-01 10:21 | XMS_ITS | Encounter Summary ---
Author Organization [facility] Address [address] [place] [address] Care Team Providers Care Fertilizer Processing Supervisor Name Role Phone Armando Richards MD Primary Care Provider + Source Comments In the event this information is protected by the Federal Confidentiality of Alcohol and Drug AbusePatient Records regulations: The Federal rules restrict any use of the information to criminally investigate or prosecute any alcohol or drug abuse patient.[facility] Encounter Details Date Type Department Care Team (Late st Contact Info) Description 08/23/2023 Patient Msg Spine [place] [address] [place], [place] [phone] Provider, Ccf ACTION REQUIRED: Skin Preparation before your surgery Social History Tobacco Use Types Packs/Day Years [...] 08/24/2023 PHQ-2 Answer Date Recorded PHQ-2 score 3 08/14/2023 Hunger Vital Sign Answer Date Recorded Within [...] place to sleep or slept in a care home (including now)? No 08/24/2023 Sex and Gender Information Value Date Recorded Sex Assigned at Not on file Legal Sex Male 8:43 AM EST Gender Identity Not on file Sexual Orientation Straight 01/26/2022 9: 28 PM EDT documented as of this encounter Plan of Treatment Upcoming Encounters Date Type Department Care Team (Late st Contact Info) Description 01/28/2025 10:45 AM EDT Office Visit Orthopaedics [address] [place], [place] [phone] Hung Ghosh MD [address] [place] [address] TSA documented as of this encounter Visit Diagnoses Not on filedocumented in this encounter Care Teams Fertilizer Processing Supervisor Relationship Specialty Start Date End Date Armando Richards MD [address] [place] [address], 1 [place] [phone] PCP - General Internal Medicine 08/09/23 documented as of this encounter
--- OUTSIDE RECORDS SUMMARY | 2025-01-01 10:21 | XMS_ITS | Encounter Summary ---
Author Organization [facility] tem Address [facility][id number] [address] [place] [address] Care Team Providers Care Field Marketing Representative Name Role Phone Armando Richards MD Primary Care Provider [phone] Encounter Details Date Type Department Care Team (Late st Contact Info) Description 02/10/2023 Orders Only [facility] Internal Medicine/Pediatrics [address] [place] [phone] External, Scanning Provider Social History Tobacco Use [...] Internal Medicine/Pediatrics [address] [place] [address] Armando Richards MD [address] [place] [address], [address] [place], [place] [phone] 06/03/2025 9:[address] [facility] - Vascular [address] [place] [address] Adriana Russell, DO [address] [place] [address] 06/09/2025 10:00 AM EDT Office Visit [facility] [address] [place] [address] Adriana Russell, DO [address] [place] [address] documented as of this encounter Goals Goal Patient Goal Type Associated Problems Recent Progress Patient-Stated? Author Safe dc General Yes Delilah Marroquin LSW Note: Evaluation of progress towards goal: Safe dc transition from hospital to home. documented as of this encounter Procedures Procedure Name Priority Date/Time Associated Diagnosis Comments CT ABDOMEN AND PELVIS WO CONT Routine 02/08/2023 documented in this encounter Results * CT abdomen and pelvis without contrast (02/08/2023) Anatomical Region Laterality Modality Body, Abdomen, Body Covera N/A Compu guero Tomography 02/08/2023 us Scanning Provider External IMG CT ORDERABLES Fin al Result documented in this encounter Visit Diagnoses Not on filedocumented in this encounter Additional Health Concerns Assessment Noted Time PHQ-9 Depression Total Score: 1 03/11/20 22 8:00 AM EDT documented as of this encounter Care Teams Field Marketing Representative Relationship Specialty Start Date End Date Armando Richards MD [address] [place] [address], [address] [place], [place] [phone] PCP - General Pediatrics 12/10/23 documented as of this encounter
--- OUTSIDE RECORDS SUMMARY | 2025-01-01 10:21 | XMS_ITS | Encounter Summary ---
Author Organization [facility] tem Address [facility]-[id number] [address] [place] [address] Care Team Providers Care Metal Buggy Operator Name Role Phone Armando Richards MD Primary Care Provider [phone] Encounter Details Date Type Department Care Team (Late st Contact Info) Description 11/09/2022 Orders Only [facility] Internal Medicine/Pediatrics [address] [place] [phone] Jackie Peralta RMA Esophageal dysphagia Social History Tobacco Use Types Packs/Day Years [...] or suspected to have Coronavirus / COVID-19? Unable to assess 11/08/2022 9:55 AM EDT documented as of this encounter Plan of Treatment Upcoming Encounters Date Type Department Care Team (Late st Contact Info) Description 06/02/2025 10:15 AM EDT Office Visit [facility] Internal Medicine/Pediatrics [address] [place] [address] [address] [place] [address] Armando Richards MD [facility]5 [facility], [address] [place] [address] 06/03/2025 9:[address] [facility] - Vascular [address] [place] [address] Adriana Russell, DO [address] [place] [address] 06/09/2025 10:00 AM EDT Office Visit [facility] [address] [place] [address] Adriana Russell, DO [address] [place] [address] documented as of this encounter Goals Goal Patient Goal Type Associated Problems Recent Progress Patient-Stated? Author Safe davon General Yes Delilah Marroquin LSW Note: Evaluation of progress towards goal: Russel mays transition from hospital to home. documented as of this encounter Procedures Procedure Name Priority Date/Time Associated Diagnosis Comments EGD Routine 11/07/2022 AMB REFERRAL TO GASTROENTEROLOGY Routine 11/08/19 23 Esophageal dysphagia documented in this encounter Results * EGD (11/07/2022) 11/07/2022 us Scanning Provider External GI PROCEDURE ORDERABL ES Final Result MANUALLY TRANSCRIBED RESULTS * Ambulatory referral to Gastroenterology (11/07/2022) 11/07/2022 us Leslie Rdz MD OUTPATIENT REFERRAL ORDERABLES Final Result MANUALLY TRANSCRIBED RESULTS documented in this encounter Visit Diagnoses Diagnosis Esophageal dysphagia Dysphagia, pharyngoesophageal phase documented in this encounter Additional Health Concerns Assessment Noted Time PHQ-9 Depression Total Score: 1 03/11/20 22 8:00 AM EDT documented as of this encounter Care Teams Metal Buggy Operator Relationship Specialty Start Date End Date Armando Richards MD [address] [place] [address], [address] [place] [address] PCP - General Pediatrics 12/10/23 documented as of this encounter
--- OUTSIDE RECORDS SUMMARY | 2025-01-01 10:21 | XMS_ITS | Encounter Summary ---
Author Organization [facility] tem Address [facility]-[id number] [address] [place] [address] Care Team Providers Care Graphic Arts Technician Name Role Phone Armando Richards MD Primary Care Provider [phone] Encounter Details Date Type Department Care Team (Late st Contact Info) Description 06/15/2021 Orders Only [facility] Internal Medicine/Pediatrics [address] [place] [address] 1 [place] [address] Armando Richards MD [address] [place] [address], [address] [place], [place] [phone] Hypercalcemia; Creatinine elevation; Generalized weakness Social History Tobacco Use Types Packs/Day Years [...] have Coronavirus / COVID-19? No / Unsure 06/18/2021 12:36 PM EDT documented as of this encounter Plan of Treatment Upcoming Encounters Date Type Department Care Team (Late st Contact Info) Description 06/02/2025 10:15 AM EDT Office Visit [facility] Internal Medicine/Pediatrics [address] [place] [address] 1 [place] [address] Armando Richards MD [address] [place] [address], [address] [place], [place] [phone] 06/03/2025 9:30 AM EDT Appointment [facility] - Vascular [address] [place] [address] Adriana Russell, DO [address] [place] [address] 06/09/2025 10:00 AM EDT Office Visit [facility] [address] [place] [address] Adriana Russell, DO [address] [place] [address] documented as of this encounter Goals Goal Patient Goal Type Associated Problems Recent Progress Patient-Stated? Author Safe dc General Yes Delilah Marroquin, MARIN Note: Evaluation of progress towards goal: Safe dc transition from hospital to home. documented as of this encounter Procedures Procedure Name Priority Date/Time Associated Diagnosis Comments AMB REFERRAL TO NEUROLOGY Routine 06/03/2021 Generalized weakness AMB REFERRAL TO NEPHROLOGY Routine 05/20/2021 Hypercalcemia Creatinine elevation documented in this encounter Results * Ambulatory referral to Neurology (06/03/2021) 06/03/2021 us Armando Richards MD OUTPATIENT REFERRAL ORDERABLE S Final Result Performing Organization Address City/State/[facility] Co de Phone Number MANUALLY TRANSCRIBED RESULTS * Ambulatory referral to Nephrology (05/20/2021) 05/20/2021 us Armando Richards MD OUTPATIENT REFERRAL ORDERABLE S Final Result Performing Organization Address City/[facility] Co de Phone Number MANUALLY TRANSCRIBED RESULTS documented in this encounter Visit Diagnoses Diagnosis Hypercalcemia Creatinine elevation Generalized weakness documented in this encounter Additional Health Concerns Assessment Noted Time PHQ-9 Depression Total Score: 4 09/15/19 21 9:15 AM EST documented as of this encounter Care Teams Graphic Arts Technician Relationship Specialty Start Date End Date Armando Richards MD [address] [place] [address], 1 [place] [address] PCP - General Pediatrics 12/10/23 documented as of this encounter
--- OUTSIDE RECORDS SUMMARY | 2025-01-01 10:21 | XMS_ITS | Encounter Summary ---
Author Organization [facility] Address [address] [place] [address] Care Team Providers Care Dual Rate Dealer Name Role Phone Armando Richards MD Primary Care Provider + Source Comments In the event this information is protected by the Federal Confidentiality of Alcohol and Drug AbusePatient Records regulations: The Federal rules restrict any use of the information to criminally investigate or prosecute any alcohol or drug abuse patient.[facility] Encounter Details Date Type Department Care Team (Late st Contact Info) Description 12/12/2024 Patient [facility] Internal [facility] [place] [address] [place] [phone] Provider, Ccf reschedule Social History Tobacco [...] place to sleep or slept in a long-term (including now)? No 08/24/2023 Sex and Gender [...] 01/28/2025 10:45 AM EDT Office Visit Orthopaedics [address] [place], [place] [phone] Hung Ghosh MD [address] [place] [address] TSA documented as of this encounter Visit Diagnoses Not on filedocumented in this encounter Care Teams Dual Rate Dealer Relationship Specialty Start Date End Date Armando Richards MD [address] [place] [address], 1 [place] [address] PCP - General Internal Medicine 08/09/23 documented as of this encounter
--- OUTSIDE RECORDS SUMMARY | 2025-01-01 10:21 | XMS_ITS | Encounter Summary ---
Author Organization [facility] tem Address [facility] [place]-[id number] [address] [place] [address] Care Team Providers Care Washing Machine Loader And Puller Name Role Phone Armando Richards MD Primary Care Provider [phone] Encounter Details Date Type Department Care Team (Late st Contact Info) Description 07/13/2022 Orders Only [facility] Internal Medicine/Pediatrics [address] [place] [phone] External, Scanning Provider Social History Tobacco Use [...] have Coronavirus / COVID-19? Unable to assess 07/14/2022 9:44 AM EST documented as of this encounter Plan of Treatment Upcoming Encounters Date Type Department Care Team (Late st Contact Info) Description 06/02/2025 10:15 AM EDT Office Visit [facility] Internal Medicine/Pediatrics [address] [place] [address] 1 [place] [address] Armando Richards MD [facility]5 [facility], [address] [place] [address] 06/03/2025 9:30 AM EDT Appointment [facility] - Vascular [address] [place] [address] Adriana Russell, DO [address] [place] [address] 06/09/2025 10:00 AM EDT Office Visit [facility] [address] [place] [address] Adriana Russell, DO [address] [place] [address] documented as of this encounter Goals Goal Patient Goal Type Associated Problems Recent Progress Patient-Stated? Author Safe dc General Yes Delilah Marroquin, MARIN Note: Evaluation of progress towards goal: Safe dc transition from hospital to home. documented as of this encounter Procedures Procedure Name Priority Date/Time Associated Diagnosis Comments MULTIPLE LABS Routine 07/06/2022 documented in this encounter Results * Multiple labs (07/06/2022) 07/06/2022 Narrative MANUALLY TRANSCRIBED RESULTS - 07/06/2022 Dr. Fadia Westfall ordering physician us Scanning Provider External [place] IMAGING Final Result MANUALLY TRANSCRIBED RESULTS documented in this encounter Visit Diagnoses Not on filedocumented in this encounter Additional Health Concerns Assessment Noted Time PHQ-9 Depression Total Score: 1 03/11/20 22 8:00 AM EDT documented as of this encounter Care Teams Washing Machine Loader And Puller Relationship Specialty Start Date End Date Armando Richards MD [address] [place] [address], [address] [place] [address] PCP - General Pediatrics 12/10/23 documented as of this encounter
--- OUTSIDE RECORDS SUMMARY | 2025-01-01 10:22 | XMS_ITS | Encounter Summary ---
Author Organization [facility] Address [address] [place] [address] Care Team Providers Care Cloth Bolt Bander Name Role Phone Armando Richards MD Primary Care Provider + Source Comments In the event this information is protected by the Federal Confidentiality of Alcohol and Drug AbusePatient Records regulations: The Federal rules restrict any use of the information to criminally investigate or prosecute any alcohol or drug abuse patient.[facility] Reason for Visit * Reason Comments Radiology XR Encounter Details Date Type Department Care Team (Late st Contact Info) Description 12/30/2024 Radiology Radiology [address] [place] [address] Lea Johnson, RT(R) Radiology XR Social History Tobacco Use Types Packs/Day Years [...] place to sleep or slept in a senior living (including now)? No 08/24/2023 Sex and Gender [...] 12:04 PM EDT Ozzy Grewal, ALIYAH * Because of a physical, mental, or [...] Ozzy Grewal RN documented in this encounter Progress Notes * Lea Johnson RT(R) - 12/30/2024 10:05 AM EDT Radiology Service Progress Note PATIENT NAME: Tyler Roe DATE OF SERVICE: December 30, 2024 TIME: 10:05 AM PATIENT IDENTITY VERIFICATION COMPLETED USING TWO (2) IDENTIFIERS: Name and Date of confirmedby patient verbally. FALL SCREENING: Has the patient had 2 falls in the last year or 1 fall with injury or currently using an Ambulatory Assistive Device (Walker, Cane, Wheelchair, Crutches, etc.)? No PATIENT GENDER DATA: Assigned male at PATIENT RELEVANT IMPLANT DATA REVIEWED: Yes PATIENT PRESENTS WITH AN IMPLANTABLE OR ATTACHED WORD PROCESSOR OPERATOR: No RADIOLOGY DEPARTMENT: General X-ray: Exam(s) Completed: Upper Extremity X- Ray(s): Shoulder, AP / TRUE AP / AXILLARY right PERIPHERAL IV DATA: Not applicable SIGNED BY: RT Luca(R) December 30, 2024 10:05 AM documented in this encounter Plan of Treatment Upcoming Encounters Date Type Department Care Team (Late st Contact Info) Description 01/28/2025 10:45 AM EDT Office Visit Orthopaedics [address] [place], [place] [phone] Hung Ghosh MD [address] [place] [address] TSA documented as of this encounter Visit Diagnoses Not on filedocumented in this encounter Care Teams Cloth Bolt Bander Relationship Specialty Start Date End Date Armando Richards MD [address] [place] [address], 1 [place] [address] PCP - General Internal Medicine 08/09/23 documented as of this encounter
--- OUTSIDE RECORDS SUMMARY | 2025-01-01 10:22 | XMS_ITS | Encounter Summary ---
Author Organization [facility] tem Address [id number] [address] [place] [address] Care Team Providers Care Childcare Provider Name Role Phone Armando Richards MD Primary Care Provider [phone] Encounter Details Date Type Department Care Team (Late st Contact Info) Description 09/26/2023 Orders Only [facility] Internal Medicine/Pediatrics [address] [place] [phone] External, Scanning Provider Social History Tobacco Use [...] got money to buy more. Never True 05/24/2023 Within the past 12 months th e food we bought just didn't last and we didn't have money to get more. Never True 05/24/2023 Purpose - Life Answer Date Recorded Purpose [...] Description 06/02/2025 10:15 AM EDT Office Visit [facility] Internal Medicine/Pediatrics [address] [place] [phone] Armando Richards MD [address] [place] [address], [address] [place] [address] 06/03/2025 9:30 AM EDT Appointment [facility] - Vascular [address] [place] [address] Adriana Russell, [address] [place] [id number] 06/09/2025 10:00 AM EDT Office Visit [facility] [address] [place] [address] Adriana Russell DO [address] [place] [address] documented as of this encounter Goals Goal Patient Goal Type Associated Problems Recent Progress Patient-Stated? Author Safe dc General Yes Lopez, Delilah, [employer] Note: Evaluation of progress towards goal: Safe dc transition from hospital to home. documented as of this encounter Procedures Procedure Name Priority Date/Time Associated Diagnosis Comments MULTIPLE RADS Routine 09/21/2023 documented in this encounter Results * Multiple rads (09/21/2023) Anatomical Region Laterality Modality Other 09/21/2023 us Scanning Provider External [place] IMAGING Final Result documented in this encounter Visit Diagnoses Not on filedocumented in this encounter Additional Health Concerns Assessment Noted Time PHQ-9 Depression Total Score: 2 05/24/20 23 12:28 PM EDT documented as of this encounter Care Teams Childcare Provider Relationship Specialty Start Date End Date Armando Richards MD [address] [place] [address], [address] [place] [address] PCP - General Pediatrics 12/10/23 documented as of this encounter
--- OUTSIDE RECORDS SUMMARY | 2025-01-01 10:22 | XMS_ITS | Encounter Summary ---
Author Organization [facility] tem Address [facility]-[id number] [address] [place] [address] Care Team Providers Care Route Returner Name Role Phone Armando Richards MD Primary Care Provider [phone] Encounter Details Date Type Department Care Team (Late st Contact Info) Description 11/01/2024 Orders Only [facility] Internal Medicine/Pediatrics [address] [place] [phone] External, Scanning Provider Social History Tobacco Use Types Packs/Day Years Used Date Smoking Tobacco: Former Smokeless Tobacco: Never Alcohol Use Standard Drinks/Week Comments Yes 0 (1 standard drink = 0.6 oz pur e alcohol) [facility] Utilities Answer Date Recorded In the past 12 months has [employer], gas, oil, or water [email or web address] threatened to shut off services in your [...] got money to buy more. Never True 05/29/2024 Within the past 12 months th e food we bought just didn't last and we didn't have money to get more. Never True 05/29/2024 Purpose - Life Answer Date Recorded Purpose [...] Description 06/02/2025 10:15 AM EDT Office Visit [facility] Internal Medicine/Pediatrics [address] [place] [phone] Armando Richards MD [address] [place] [address], [address] [place] [address] 06/03/2025 9:30 AM EDT Appointment [facility] - Vascular [address] [place] [phone] Adriana Russell, DO [address] [place] [address] 06/09/2025 10:00 AM EDT Office Visit [facility] [place] [address] Adriana Russell, DO [address] [place] [address] documented as of this encounter Goals Goal Patient Goal Type Associated Problems Recent Progress Patient-Stated? Author Safe dc General Yes eDlilah Marroquin LSW Note: Evaluation of progress towards goal: Safe dc transition from hospital to home. documented as of this encounter Procedures Procedure Name Priority Date/Time Associated Diagnosis Comments MULTIPLE LABS Routine 10/29/2024 ECG 12-LEAD Routine 10/29/2024 documented in this encounter Results * Multiple labs (10/29/2024) 10/29/2024 us Scanning Provider External [place] IMAGING Final Result Performing Organization Address [facility] Co de Phone Number MANUALLY TRANSCRIBED RESULTS * ECG 12 lead (10/29/2024) 10/29/2024 us Scanning Provider External ECG ORDERABLES Final Result Performing Organization Address [place]/[facility] Co de Phone Number MANUALLY TRANSCRIBED RESULTS documented in this encounter Visit Diagnoses Not on filedocumented in this encounter Additional Health Concerns Assessment Noted Time PHQ-9 Depression Total Score: 7 05/29/20 24 9:00 AM EDT documented as of this encounter Care Teams Route Returner Relationship Specialty Start Date End Date Armando Richards MD [address] [place] [address], [place] [address] PCP - General Pediatrics 12/10/23 documented as of this encounter
--- OUTSIDE RECORDS SUMMARY | 2025-01-01 10:22 | XMS_ITS | Clinical Summary ---
Author Organization [facility] Address [address] [place] [id number] Care Team Providers Care Vault Clerk Name Role Phone Armando Richards MD Primary Care Provider + Allergies Active Allergy Reactions Criticality Noted Date Comments Simvastatin Unknown 05/10/2018 Medications Melatonin 5 mg cap Take 5 mg by mouth. Active metFORMIN (GLUCOPHAGE) 500 mg tablet Take 500 mg by mouth. 12/25/19 22 Active tamsulosin (FLOMAX) 0.4 mg Take 0.4 mg by mouth. 07/29/20 21 Active DULoxetine (CYMBALTA) 30 mg capsule Take 30 mg by mouth. 09/04/19 24 Active esomeprazole (NEXIUM) 40 mg capsule 11/16/19 24 Active rosuvastatin (CRESTOR) 20 mg tablet Take 20 mg by mouth every morning. Active lisinopril (ZESTRIL) 10 mg tablet Take 10 mg by mouth every morning. Active cyanocobalamin (VITAMIN B-12) 1,000 mcg tab Take 1,000 mcg by mouth once daily. Active finasteride (PROSCAR) 5 mg tablet Take 5 mg by mouth once daily. Active Fluorouracil (EFUDEX) 5 % cream Apply to affected area two times a day. Active aspirin, enteric coated (ECOTRIN LOW STRENGTH) 81 mg EC tablet Take 1 tablet by mouth two times a day for 14 days. 28 tablet 5 10:32 AM EDT 12/17/19 25 Active acetaminophen (TYLENOL EXTRA STRENGTH) 500 mg tablet Take 2 tablets by mouth every 6 hours as needed for pain. 60 tablet 5 10:32 AM EDT 12/17/19 Active MULTIVITAMIN ORAL Take by mouth once daily. 025 Discontinued(Di scontinued by Patient) acetaminophen (TYLENOL EXTRA STRENGTH) 500 mg tablet Take 2 tablets by mouth every 6 hours as needed for pain. for pain. 56 tablet 07/26/20 24 025 Discontinued aspirin, enteric coated (ASPIRIN, ENTERIC COATED) 81 mg EC tablet Take 1 tablet by mouth two times a day for 14 days. Then, resume home dose of 1 tablet once daily. 28 tablet 07/26/20 24 025 Discontinued docusate sodium (COLACE ORAL) Take by mouth once daily. 025 Discontinued oxyCODONE ir (OXYIR) 5 mg capsule Take 5 mg by mouth two times a day. 0 Discontinued mupirocin (BACTROBAN) 2 % ointment two times a day for 5 days. Apply 0.5 inch with cotton swab (Q-tip) to each nostril in the morning and evening for 5 days prior to and including day of surgery. 22 g 12/05/19 25 025 docusate sodium (COLACE) 100 mg capsule Take 1 capsule by mouth two times a day for 14 days. 28 capsule 5 10:32 AM EDT 12/17/19 025 oxyCODONE IR (ROXICODONE) 5 mg immediate release tabletIndicati ons:Post-op pain Take 1 tablet by mouth every 6 hours as needed for pain for up to 7 days. 28 tablet 5 10:32 AM EDT 12/17/19 025 Active Problems Problem Noted Date Diagnosed Date S/P reverse total shoulder arthroplasty, right 0 12/16/2024 Benign prostatic hyperplasia with weak urinary s tream 12/16/2024 Primary hypertension 12/16/2024 Mitral valve insufficiency 12/04/2024 Aortic valve sclerosis 12/04/2024 Finding of above normal blood pressure 4 CVA (cerebral vascular accident) 07/22/2024 Assessment & Plan (07/22/2024 1:35 PM EST): Assessment: hx 03/2024 Follows up with neurology, last office visit 04/25/24 Daily aspirin No residual deficits Carotid stenosis 07/22/2024 Assessment & Plan (07/22/2024 1:36 PM EST): Assessment: less than 50% bilaterally Follows with vascular, last office visit 05/28/24 Elevated BP without diagnosis of hypertension Assessment & Plan (07/22/2024 1:29 PM EST): Assessment: managed with med, stable Follows up with PCP Lumbar stenosis with neurogenic claudication 06/2024 Status post lumbar spinal fusion 08/24/2023 Type 2 diabetes mellitus wit hout complication, without long-term current use of insulin 07/31/2023 Assessment & Plan (07/22/2024 1:37 PM EST): Assessment: managed with oral med, stable Follows up with PCP BG at home 100's HgbA1c 6.1% 03/24/24 Former smoker 07/31/2023 Assessment & Plan (07/22/2024 1:30 PM EST): Assessment: quit 1993 Former 0.5 ppd for 20 years Chronic obstructive pulmonary disease 07/31/2023 Assessment & Plan (07/22/2024 1:29 PM EST): Assessment: Denies SOB Does not require inhaler or oxygen Follows up with PCP 96% RA Chronic right shoulder pain 03/13/2023 Peripheral venous insufficiency 01/04/2023 Calculus of kidney 11/03/2021 Assessment & Plan (07/22/2024 1:30 PM EST): Assessment: stable and asymptomatic Gastroesophageal reflux disease without esophagi tis 09/15/2020 Assessment & Plan (07/22/2024 1:30 PM EST): Assessment: managed with med, stable Follows up with PCP Diabetes mellitus 09/15/2020 Mixed hyperlipidemia 09/15/2020 Assessment & Plan (07/22/2024 1:29 PM EST): Assessment: managed with med, stable Follows up with PCP Obstructive sleep apnea syndrome 09/15/2020 Assessment & Plan (07/22/2024 1:39 PM EST): Assessment: non-compliant with CPAP Encounters Date Type Department Care Team Description 12/30/2024 10:00 AM EDT Nurse Visit Orthopedics [address] [place] [address] Quinn White RN Glenohumeral arthritis, right (Primary Dx) 12/30/2024 9:37 AM EDT - 12/30/2024 11:59 PM EDT Hospital Encounter Radiology [address] [place] [address] Chronic right shoulder pain [M25.511, G89.29] Discharge Disposition: Home 12/30/2024 Radiology Radiology [id number] [place] [phone] Lea Johnson RT(R) Radiology XR 12/16/2024 9:26 AM EDT Anesthesia Event [facility] Operating Room [address] [place] [address] Claire Velez MD 12/16/2024 8:15 AM EDT - 12/16/2024 11:55 AM EDT Surgery [facility] Operating Room [address] [place] [address] Hung Ghosh MD REVERSE TOTAL SHOULDER ARTHROPLASTY 12/16/2024 6:10 AM EDT - 12/17/2024 12:36 PM EDT Hospital Encounter [facility] [address] [place] [address] Hung Ghosh MD Chronic right shoulder pain [M25.511, G89.29] Discharge Disposition: Home 12/16/2024 Travel 12/12/2024 Patient Msg Internal Medicine [place] [address] [place] [address] Provider, [facility]cf reschedule 12/12/2024 Patient Msg Internal Medicine [place] [address] [place] [address] Provider, Ccf reschedule 12/05/2024 Patient Msg Orthopaedics [address] [address] Provider, Ccf follow up 12/04/2024 1:05 PM EDT - 12/04/2024 11:59 PM EDT Hospital Encounter [facility] Radiology General [address] [place] [address] Chronic right shoulder pain [M25.511, G89.29] Discharge Disposition: Home 12/04/2024 1:03 PM EDT - 12/04/2024 1:04 PM EDT Hospital Encounter [facility] [place] Scan [address] [place] [address] Chronic right shoulder pain [M25.511, G89.29] Discharge Disposition: Home 12/04/2024 12:20 PM EDT PAT Pre Anesthesia [id number] [place] [address] 1, Pacc Av Pre-op testing (Primary Dx); Chronic right shoulder pain; Cerebrovascular accident (CVA), unspecified mechanism ([facility]); Mixed hyperlipidemia; Elevated BP without diagnosis of hypertension; Stenosis of carotid artery, unspecified laterality; Chronic obstructive pulmonary disease, unspecified COPD type ([facility]); Former smoker; Obstructive sleep apnea syndrome; Gastroesophageal reflux disease without esophagitis; Type 2 diabetes mellitus without complication, without long-term current use of insulin ([facility]); Mitral valve insufficiency, unspecified etiology; Aortic valve sclerosis 11/27/2024 Travel 11/26/2024 Patient Msg Pre Anesthesia [id number] [place] [address] Provider, Ccf PACC appt check in 10/29/2024 Orders Only Orthopaedics [address] [address] Hung Ghosh MD Pain (Primary Dx); Chronic right shoulder pain; Pre-op testing 10/29/2024 Patient Update Orthopaedics [address] [address] Elvira Valencia RN 10/15/2024 3:30 PM EST Office Visit Orthopaedics [address] [place] [address] Hung Ghosh MD Chronic right shoulder pain (Primary Dx); Aftercare following left shoulder joint replacement surgery; Glenohumeral arthritis, right 10/15/2024 2:51 PM EST - 10/15/2024 11:59 PM EST Hospital Encounter Radiology [address] [place] [address] Aftercare following left shoulder joint replacement surgery [Z47.1, Z96.612] Discharge Disposition: Home 10/09/2024 Travel from Last 3 Months Immunizations Immunization Administration Dates Next Due AS03 adjuvant 04/09/2019 influenza (HD-IIV3) vaccine, age 65+ yr, high dose, trivalent, PF (FLUZONE HIGH-DOSE) 06/02/2018,05/09/2016 influenza (HD-IIV4) vaccine, age 65+ yr, high dose, quadrivalent, PF (FLUZONE HIGH-DOSE) 05/15/2023,06/09/2022,05/01/2021 influenza (IIV3) vaccine, tr ivalent, PF (AFLURIA, FLUARIX, FLULAVAL, FLUVIRIN, FLUZONE) 05/22/2015 influenza (LAIV) vaccine, na paige, unspecified formulation 04/24/2020,04/14/2020,05/29/2017 influenza (aIIV3) vaccine, a ge 65+ yr, trivalent, PF (FLUAD) 05/08/2024,04/09/2019 influenza vaccine, whole virus 05/08/2013,2009 pneumococcal conjugate (PCV1 3) vaccine, 13 valent (PREVNAR 13) 04/09/2019 respiratory syncytial virus (RSV) vaccine, adjuvanted (AREXVY) 11/11/2023 tetanus diphtheria pertussis (Tdap) vaccine, age 7+ yr (ADACEL, BOOSTRIX) 11/30/2018 zoster (RZV) vaccine, recomb inant (SHINGRIX) 04/11/2019,11/30/2018 Social History Tobacco Use Types Packs/Day Years Used Date Smoking Tobacco: Former Cigarettes 0.5 15 1 978 - 1992 Smokeless Tobacco: Never Tobacco Cessation:Counseling Given: Not Answered Comments:Quit years ago Alcohol Use Standard Drinks/Week [...] place to sleep or slept in a halfway (including now)? No 08/24/2023 Sex and Gender Information Value Date Recorded Sex Assigned at Not on file Legal Sex Male 8:43 AM EST Gender Identity Not on file Sexual Orientation Straight 01/26/2022 9: 28 PM EDT Last Filed Vital Signs Vital Sign Reading Time Taken Comments Blood Pressure 115/65 12/17/2024 7:38 AM EDT Pulse 75 12/17/2024 7:38 AM EDT Temperature 36.7 C (98.1 F) 12/17/2024 7:38 AM EDT Respiratory Rate 17 12/17/2024 7:38 AM EDT Oxygen Saturation 94% 12/17/2024 7:38 AM EDT Inhaled Oxygen Concentration - - Weight 78 kg (171 lb 15.3 oz) 12/16/2024 2:06 PM EDT Height 172.7 cm (5' 7.99 ) 12/16/2024 2:06 PM ED T Body Mass Index 26.15 12/16/2024 2:06 PM EDT Plan of Treatment Upcoming Encounters Date Type Department Care Team (Late st Contact Info) Description 01/28/2025 10:45 AM EDT Office Visit Orthopaedics [address] [facility] [place] [address] Hung Ghosh MD [address] [place] [address] TSA Health Maintenance Due Date Last Done Comments Diabetic Foot Exam 02/06/1954 Dilated Retinal Exam 02/06/1954 Annual PCP Team Chronic Dise ase Visit 02/06/1962 Anxiety Screening 02/06/1962 Depression Screening 02/06/1962 LDL Cholesterol 02/06/1962 Pneumococcal Vaccine: 50+ (2 of 2 - PPSV23) 06/04/2019 04/09/2019 Urine Albumin:Creatinine Ratio 07/22/2022 07/22/2021 , 05/13/2021 Advance Directive Discussion 08/14/2024 Covid-19 Vaccine (8 - 2023-2 5 season) 2024 05/08/2024, 05/15/2023, 06/09/2022, Additional history exists HbA1C 06/05/2025 12/04/2024, 03/14, 03/24/2024, Additional history exists BP Controlled (<130/80) 12/04/2025 12/04/2024 DTaP,Tdap,Td Vaccine (2 - Td or Tdap) 11/30/2028 11/30/2018 Shingrix Vaccine Completed 04/11/2019, 11/30/2018 RSV Vaccine Completed 11/11/2023 Influenza Vaccine Completed 05/08/2024, , 06/09/2022, Additional history exists Medical Devices Implanted Type Area Respiratory Therapy Manager Device Identifier Shelf Expiration Date Model / Serial / Lot Connector Alice 0d Small Titanium Raymond Spine - [id number] Implanted:Qty: 4 on 08/24/2023 at [facility] Fixator N/A: Spine - Lumbar [employer] [id number] / / Screw Alice 3 Titanium Set Wilian Spine - [id number] Implanted:Qty: 16 on 08/24/2023 at [facility] Implant N/A: Spine - Lumbar [employer] [id number] / / Head Rsp 36mm Neutral Glenoid Retain Screw - [id number] Implanted:Qty: 1 on 07/25/2024 at [facility] Joint - Shoulder Left: Bone - Shoulder [employer] 05/29/2030 508-36-101 / / [id number] Insert Rsp Djo Surgical Standard Hxe+ Socket Sterile Humeral - [id number] Implanted:Qty: 1 on 07/25/2024 at [facility] Joint - Shoulder Left: Bone - Shoulder [employer] 05/17/2028 509-00-036 / / [id number] Stem Humeral Std Encore Reverse Shoulder [id number] - [id number] Implanted:Qty: 1 on 07/25/2024 at [facility] Joint - Shoulder Left: Bone - Shoulder [employer] 11/15/2029 530-10-108 / / [id number] Head Rsp 36mm Neutral Glenoid Retain Screw - [id number] Implanted:Qty: 1 on 12/16/2024 at [facility] Joint - Shoulder Right: Bone - Shoulder [employer] 10/31/2030 508-36-101 / / [id number] Insert Rsp Djo Surgical Standard Hxe+ Socket Sterile Humeral - [id number] Implanted:Qty: 1 on 12/16/2024 at [facility] Joint - Shoulder Right: Bone - Shoulder [employer] 11/18/2029 509-00-036 / / [id number] Stem Humeral Std Encore Reverse Shoulder [id number] - [id number] Implanted:Qty: 1 on 12/16/2024 at [facility] Joint - Shoulder Right: Bone - Shoulder [employer] 04/09/2030 530-10-108 / / [id number] Baseplate Rsp P2 30mm Glenoid Sterile - [id number] Implanted:Qty: 1 on 07/25/2024 at [facility] Plate Left: Bone - Shoulder [employer] 04/25/2030 508-32-204 / / [id number] Baseplate Rsp P2 30mm Glenoid Sterile - [id number] Implanted:Qty: 1 on 12/16/2024 at [facility] Plate Right: Bone - Shoulder [employer] 04/25/2030 508-32-204 / / [id number] Connector [place] 6mm 5.5mm Raymond Closed Open Axial 4 Screw Nonsterile Spine - [id number] Implanted:Qty: 2 on 08/24/2023 at [facility] Raymond N/A: Spine - Lumbar [employer] [id number] / / Raymond Max 90mm Spinal Radius - [id number] Implanted:Qty: 2 on 08/24/2023 at [facility] Raymond N/A: Spine - Lumbar [employer] [id number] / / Raymond Alice 6mm Titanium 480mm Spinal Compression - [id number] Implanted:Qty: 1 on 08/24/2023 at [facility] Raymond N/A: Spine - Lumbar [employer] [id number] / / Screw [place] Bailey Set Spine - [id number] Implanted:Qty: 4 on 08/24/2023 at [facility] Screw N/A: Spine - Lumbar [employer] [id number] / / Screw Alice 3 5.5mm Titanium 50mm Bone Polyaxial Spine Thoracolumbar - [id number] Implanted:Qty: 4 on 08/24/2023 at [facility] Screw N/A: Spine - Lumbar [employer] [id number] / / Screw 8.5mm 45mm Bone Polyaxial Revision Spine Iliosacral - [id number] Implanted:Qty: 2 on 08/24/2023 at [facility] Screw N/A: Spine - Lumbar [employer] [id number] / / Screw Alice 3 7.5mm Titanium 60mm Bone Polyaxial Spine Thoracolumbar - [id number] Implanted:Qty: 1 on 08/24/2023 at [facility] Screw N/A: Spine - Lumbar [employer] [id number] / / Screw Alice 3 7.5mm Titanium 70mm Bone Polyaxial Spine Thoracolumbar - [id number] Implanted:Qty: 1 on 08/24/2023 at [facility] Screw N/A: Spine - Lumbar [employer] [id number] / / Screw Rsp 5mm 14mm Bone Lock Glenoid Baseplate Shoulder - [id number] Implanted:Qty: 1 on 07/25/2024 at [facility] Screw Left: Bone - Shoulder [employer] 05/13/2029 506-03-114 / / [id number] Screw Rsp 5mm 26mm Bone Lock Glenoid Baseplate Shoulder - [id number] Implanted:Qty: 1 on 07/25/2024 at [facility] Screw Left: Bone - Shoulder [employer] 11/28/2029 506-03-126 / / [id number] Screw Rsp 5mm 26mm Bone Lock Glenoid Baseplate Shoulder - [id number] Implanted:Qty: 1 on 07/25/2024 at [facility] Screw Left: Bone - Shoulder [employer] 11/27/2029 506-03-126 / / [id number] Screw Rsp 5mm 14mm Bone Lock Glenoid Baseplate Shoulder - [id number] Implanted:Qty: 1 on 07/25/2024 at [facility] Screw Left: Bone - Shoulder [employer] 12/14/2029 506-03-114 / / [id number] Screw Rsp 5mm 14mm Bone Lock Glenoid Baseplate Shoulder - [id number] Implanted:Qty: 1 on 12/16/2024 at [facility] Screw Right: Bone - Shoulder [employer] 01/10/2030 506-03-114 / / [id number] Screw Rsp 5mm 14mm Bone Lock Glenoid Baseplate Shoulder - [id number] Implanted:Qty: 1 on 12/16/2024 at [facility] Screw Right: Bone - Shoulder [employer] 05/23/2030 506-03-114 / / [id number] Screw Rsp 5mm 26mm Bone Lock Glenoid Baseplate Shoulder - [id number] Implanted:Qty: 1 on 12/16/2024 at [facility] Screw Right: Bone - Shoulder [employer] 07/29/2030 506-03-126 / / [id number] Screw Rsp 5mm 22mm Bone Lock Glenoid Baseplate Shoulder - [id number] Implanted:Qty: 1 on 12/16/2024 at [facility] Screw Right: Bone - Shoulder [employer] 10/19/2030 506-03-122 / / [id number] Spacer Avs 4d Peek [id number] Spinal Cage Thoracolumbar Vertebrae - [id number] Implanted:Qty: 1 on 08/24/2023 at [facility] Spacer - Bone N/A: Spine - Lumbar [employer] [id number] / / Procedures Procedure Name Priority Date/Time Associated Diagnosis Comments GLUCOSE, BLOOD (POC) Routine 12/17/2024 11:35 AM EDT GLUCOSE, BLOOD (POC) Routine 12/17/2024 7:33 AM EDT BASIC METABOLIC PANEL Routine 12/17/2024 6:13 AM EDT GLUCOSE, BLOOD (POC) Routine 12/16/2024 5:08 PM EDT XR SHOULDER SPECIFY 1V RIGHT STAT 12/16/2024 2:35 PM EDT GLUCOSE, BLOOD (POC) Routine 12/16/2024 1:20 PM EDT SURGICAL PATHOLOGY Routine 12/16/2024 12 :26 PM EDT Chronic right shoulder pain INTUBATION Routine 12/16/2024 9:38 AM EDT ARTHROPLASTY GLENOHUMERAL JOINT TOTAL SHOULDER 12/16/2024 8:56 AM EDT Chronic right shoulder pain AK AN BRACHIAL PLEXUS NERVE BLOCK Routine 12/16/2024 7:52 AM EDT AK AN ULTRASOUND GUIDANCE Routine 12/16/2024 7:52 AM EDT GLUCOSE, BLOOD (POC) Routine 12/16/2024 6:37 AM EDT TYPE + SCREEN,30 DAY Routine 12/04/2024 1:35 PM EDT Chronic right shoulder pain Pre-op testing HEMOGLOBIN A1C Routine 12/04/2024 1:35 PM EDT Pre-op testing Type 2 diabetes mellitus without complication, without long-term current use of insulin (HCC) COMPREHENSIVE METABOLIC PANEL Routine 12/04/2024 1:35 PM EDT Chronic right shoulder pain Pre-op testing CBC + DIFF Routine 12/04/2024 1:35 PM EDT Chronic right shoulder pain Pre-op testing CT SHOULDER WO IVCON RIGHT Routine 12/04/2024 1:23 PM EDT Chronic right shoulder pain Glenohumeral arthritis, right XR CHEST 2V FRONTAL/LAT Routine 12/04/2024 1:18 PM EDT Chronic right shoulder pain Pre-op testing XR SHOULDER GENERAL 3V OR MORE AP/TRUE AP/OTHER LEFT Routine 10/15/2024 3:02 PM EST Aftercare following left shoulder joint replacement surgery from Last 3 Months Results * GLUCOSE, BLOOD (POC) (12/17/2024 11:35 AM EDT) Only the most recent of5 resultswithin the time period is included. [facility] Glucose, Point of Care 88 74 - 99 mg/dL [facility] Comment: Location:[facility], [address] [place] [address], [facility] The Accu-Chek Inform II glucose meter has not been approved for testing on patients receiving intensive medical intervention or therapy and results from this point of care glucose test should not be used for patient management decisions in these cases. Inaccurate results may also occur from other interfering factors, such as N-acetylcysteine (blood concentrations of greater than 5mg/dL), galactose, extremes of hematocrit (<10 or >65), or high doses of ascorbic acid (vitamin C) greater than 3mg/dL. Consider alternate testing mechanisms (e.g. core lab, blood gas instrument) in the above situations. 12/17/2024 11:3 5 AM EDT us Hung Ghosh MD POC TESTING Final Result [facility] POINT OF CARE [address] * (ABNORMAL) BASIC METABOLIC PANEL (12/17/2024 6:13 AM EDT) [facility] Glucose 114(H) 74 - 99 mg/dL 12/17/2024 8:18 AM EDT [facility] Comment: The [place] [employer] (ADA) provides guidance for cutoff values for fasting glucose and random glucose. The ADA defines fasting as no caloric intake for at least 8 hours. Fasting plasma glucose results between 100 to 125 mg/dL indicate increased risk for diabetes (prediabetes). Fasting plasma glucose results greater than or equal to 126 mg/dL meet the criteria for diagnosis of diabetes. In the absence of unequivocal hyperglycemia, results should be confirmed by repeat testing. In a patient with classic symptoms of hyperglycemia or hyperglycemic crisis, random plasma glucose results greater than or equal to 200 mg/dL meet the criteria for diagnosis of diabetes. Reference: Standards of Medical Care in Diabetes 2016, [place] [employer]. Diabetes Care. 2016.39(Suppl 1). BUN 13 9 - 24 mg/dL 12/17/2024 8:18 AM EDT [facility] Creatinine 0.94 0.73 - 1.22 mg/dL 12/17/2024 8:18 AM EDT [facility] Sodium 136 136 - 144 mmol/L 12/17/2024 8:18 AM EDT [facility] Potassium 4.1 3.7 - 5.1 mmol/L 12/17/2024 8:18 AM EDT [facility] Chloride 104 98 - 107 mmol/L 12/17/2024 8:18 AM EDT [facility] CO2 22 22 - 30 mmol/L 12/17/2024 8:18 AM EDT [facility] Anion Gap 10 8 - 15 mmol/L 12/17/2024 8:18 AM EDT [facility] Calcium, Total 9.2 8.5 - 10.2 mg/dL 12/17/2024 8:18 AM EDT [facility] Estimated Glomerular Filtration Rate 82 >=60 mL/min/1. 73m 12/17/2024 8:18 AM EDT [facility] Comment:Estimated Glomerular Filtration Rate (eGFR) is calculated using the 2020 CKD-EPI creatinine equation. This equation utilizes serum creatinine, sex, and age as parameters. The creatinine assay has traceable calibration to isotope dilution- mass spectrometry. Refer to KDIGO guidelines for clinical interpretation. In patients with unstable renal function, e.g. those with acute kidney injury, the eGFR may not accurately reflect actual GFR. Blood BLOOD SPECIMEN / Unknown Venipuncture / Unknown 12/17/2024 6:13 AM EDT 12/17/2024 7:26 AM EDT Hung Ghosh MD LABORATORY Final Result [facility] [address] [address], * XR SHOULDER SPECIFY 1V RIGHT (12/16/2024 2:35 PM EDT) Anatomical Region Laterality Modality Shoulder Radiographic Kristan ging 12/16/2024 2:35 PM EDT Impressions 12/16/2024 3:07 PM EDT IMPRESSION: Expected early postoperative findings following right shoulder arthroplasty New AC joint widening intra-articular air Rounded ossicle projecting at the central upper glenohumeral joint space Driver License Examiner: [facility] Transcribe Date/Time: Dec 16 2024 2:57P Dictated by : KIRAN SANTILLAN MD This examination was interpreted and the report reviewed and electronically signed by: KIRAN SANTILLAN MD on Dec 16 2024 3:05PM EST Narrative 12/16/2024 3:07 PM EDT * * *Final Report* * * DATE OF EXAM: Dec 16 2024 2:35PM LUX 5257 - XR SHOULDER SPECIFY 1V RT / PROCEDURE REASON: Postoperative assessment * * * * Physician Interpretation * * * * EXAMINATION: XR SHOULDER SPECIFY 1V RT HISTORY: POST OP Postoperative assessment. TECHNIQUE: XR SHOULDER SPECIFY 1V RT Laterality: RIGHT Number of different views (projections): 1 M: XB_1 COMPARISON: CT right shoulder 12/04/2024 RESULT: Single frontal image labeled portable postop. Interval right shoulder reverse arthroplasty. Components align on the single provided image. No identified unanticipated acute periprosthetic fracture. Rounded ossicle measuring at least 18 mm projects central upper glenohumeral joint space. New AC joint widening and intra-articular air. Scattered air in the regional soft tissues. External artifacts. Procedure Note Provider, [facility] [place] - 12/16/2024 * * *Final Report* * * DATE OF EXAM: Dec 16 2024 2:35PM LUX 5257 - XR SHOULDER SPECIFY 1V RT / PROCEDURE REASON: Postoperative assessment * * * * Physician Interpretation * * * * EXAMINATION: XR SHOULDER SPECIFY 1V RT HISTORY: POST OP Postoperative assessment. TECHNIQUE: XR SHOULDER SPECIFY 1V RT Laterality: RIGHT Number of different views (projections): 1 M: XB_1 COMPARISON: CT right shoulder 12/04/2024 RESULT: Single frontal image labeled portable postop. Interval right shoulder reverse arthroplasty. Components align on the single provided image. No identified unanticipated acute periprosthetic fracture. Rounded ossicle measuring at least 18 mm projects central upper glenohumeral joint space. New AC joint widening and intra-articular air. Scattered air in the regional soft tissues. External artifacts. IMPRESSION IMPRESSION: Expected early postoperative findings following right shoulder arthroplasty New AC joint widening intra-articular air Rounded ossicle projecting at the central upper glenohumeral joint space Driver License Examiner: [facility] Transcribe Date/Time: Dec 16 2024 2:57P Dictated by : KIRAN SANTILLAN MD This examination was interpreted and the report reviewed and electronically signed by: KIRAN SANTILLAN MD on Dec 16 2024 3:05PM EST Hung Ghosh MD RAD-PAMA Final Result * SURGICAL PATHOLOGY (12/16/2024 12:26 PM EDT) Case Report Surgical Pathology Report Case: [id number] Authorizing Provider: Hung Ghosh MD Collected: 12/16/2024 12:26 PM Ordering Location: [facility] Received: 12/17/2024 07:49 AM Operating Room Pathologist: Armando Herzog MD Specimen: Humerus, Head, Right 12/20/2024 9:26 AM EDT [facility] FINAL DIAGNOSIS A. Right humeral head, arthroplasty: - Degenerative joint disease. 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 12/20/2024 9:26 AM T [facility] at 0925 EDT Gross Description A. Humerus, Head, Right In formalin labeled humerus, head, right is a 5.5 x 4.4 x 1.2 cm irregularly-shaped humeral head. The articular surface is extensively roughened and granular with areas of eburnation. Sectioning reveals firm, trabecular bone. Additionally within container is a 5.5 x 3.1 x 0.9 cm sommers-bailey, irregularly-shaped fragment of membranous tissue consistent with joint capsule. Die Cast Die Maker sections are submitted as follows: A1: Soft tissue A2: Humeral head, following decalcification in formic acid. HMZ 12/17/24 1:23 PM Gross examination performed at [facility], [address] [place] [address] 12/20/2024 9:26 AM EDT [facility] Clinical History Pre-op diagnosis: Chronic right shoulder pain [M25.511, G89.29] 12/20/2024 9:26 AM EDT [facility] Performing Lab Diagnostic interpretation performed at: [facility], [address] [facility] [address] CLIA# [id number] Efficiency Clerk: Shaheed Degroot MD 12/20/2024 9:26 AM EDT [facility] Disclaimer Laboratory Developed Test (LDT) Disclaimer: Performance characteristics of immunohistochemica l, immunofluorescent, and chromogenic in-situ hybridization tests have been determined by the performing laboratory within [facility]'s Miko Barajas [facility] [place] [facility] Medicine Department ([facility], [facility], [facility], [facility], [facility], [facility], or [facility]) in a manner consistent with CLIA requirements. One or more of these tests may not have been cleared or approved by the FDA. [facility] is regulated under CLIA as qualified to perform high-complexity testing. These tests are used for clinical purposes. These should not be regarded as investigational or for research. Positive and negative controls stain appropriately. 12/20/2024 9:26 AM EDT [facility] Tissue RESECTION OF HUMERAL HEAD / Unknown 12/16/2024 12:26 PM EDT 12/17/2024 7:49 AM EDT Comment:Pre-op diagnosis: Chronic right shoulder pain [M25.511, G89.29] Hung Ghosh MD SURGICAL PATHOLOGY Final Result [facility] [address] [facility] [place] [address], [facility] [address] [facility] [address] [place] [address], * Airway (12/16/2024 9:38 AM EDT) Narrative Savanna Alarcon APRN.CASH TELLER - 12/16/2024 9:38 AM EDT Savanna Alarcon APRN.CASH TELLER 12/16/2024 10:28 AM Airway General Information Procedure Start Time/Medication Administration: 12/16/2024 9:38 AM Procedure End Time: 12/16/2024 9:39 AM Patient location during procedure: OR Timeout Performed Pre-procedure: timeout performed Consent Obtained: Yes Patient identity confirmed: arm band and patient Staffing CASH TELLER: Savanna Alarcon APRN.CASH TELLER Performed by: CASH TELLER Indications and Patient Condition Indications for airway management: anesthesia Preoxygenated: yes anesthesia circuit Method: asleep Cricoid Pressure: No Manual In-Line Stabilization: Yes Difficult Mask: No Airway Accessory: oral airway Final Airway Details Final airway type: endotracheal airway Final Endotracheal Airway: ETT Cuffed: yes Successful intubation technique: video laryngoscopy Devices used: ThisClicks Endotracheal tube insertion site: oral Blade: Maryam Blade size: #4 ETT size (mm): 8.0 Measured from: lips Measurement (cm): 22 Placement verified by: chest auscultation and capnometry Number of attempts at approach: 1 Failed airway: no Unrecognized esophageal intubation: no Airway not difficult Comments Allevyn to face Claire Velez MD ANESTHESIA ORDERABLES Final Resu lt * AK AN ULTRASOUND GUIDANCE, AK AN BRACHIAL PLEXUS NERVE BLOCK (12/16/2024 7:52 AM EDT) Narrative Claire Velez MD - 12/16/2024 7:52 AM EDT Claire Velez MD 12/31/2024 9:05 AM Peripheral Nerve Block General Information Procedure Start Time/Medication Administration: 12/16/2024 7:52 AM Procedure End time: 12/16/2024 8:03 AM Patient location during procedure: pre-op Timeout Performed Pre-procedure: timeout performed Consent Obtained: Yes Patient identity confirmed: arm band and patient Reason for block: post-op pain management/at surgeon's request Staffing Anesthesiologist: Claire Velez MD Performed by: anesthesiologist Preparation Sterility Preparation: hand hygiene performed prior to procedure, sterile gloves, drapes, and procedure tray, surgical cap used, mask used, sterile drape used during line insertion, skin prep agent completely dried prior to procedure Site Prep: Chloraprep Pre-Procedure Neuro Exam Location: RUE Procedure Details Patient Position: supine Monitoring: Pulse OX, NIBP and EKG Block Type Upper Extremity: brachial plexus Approach: interscalene Laterality: right Injection Technique: single-shot Ultrasound Guided: Yes Image in Chart: yes Local Infiltration: Yes Needle Needle Type: echogenic Needle Gauge: 22 G Needle Length: 50 mm Needle Localization: ultrasound Assessment Injection assessment: negative aspiration, no paresthesia on injection, incremental injection and local visualized surrounding nerve on ultrasound Post-Procedure Neuro Exam Expected Regional Anesthesia: Yes Medications Administered ropivacaine (PF) 5 mg/mL (0.5 %) injection (NAROPIN) - peripheral nerve block 20 mL - 12/16/2024 7:52:00 AM propofol iv bolus (DIPRIVAN) - INTRAVENOUS 25 mg - 12/16/2024 7:52:00 AM Claire Velez MD ANESTHESIA ORDERABLES Edited Res ult - Final * TYPE AND SCREEN,30 DAY (12/04/2024 1:35 PM EDT) ABO A 12/04/2024 3:15 PM EDT [facility] Rh(D) Positive 12/04/2024 3:15 PM EDT [facility] Antibody Screen Negative 12/04/2024 3:15 PM EDT [facility] Blood BLOOD SPECIMEN / Unknown Venipuncture / Unknown 12/04/2024 1:35 PM EDT 12/04/2024 1:35 PM EDT Hung Ghosh MD BLOOD BANK Final Result [facility] [address] [place] [address], * (ABNORMAL) HEMOGLOBIN A1C (12/04/2024 1:35 PM EDT) Pathologist [facility] Hemoglobin A1C 6.0(H) 4.3 - 5.6 % 12/04/2024 6:30 PM EDT [facility] Comment:[place] Diabetes As sociation guidelines indicate that patients with HgbA1c in the range 5.7-6.4% are at increased risk for development of diabetes, and intervention by lifestyle modification may be beneficial. HgbA1c greater or equal to 6.5% is considered diagnostic of diabetes. Estimated Average Glucose 126 mg/dL 12/04/2024 6:30 PM EDT [facility] Comment:eAG: (Estimated aver age glucose) is a calculated value from HgbA1c and is call center representative of the average blood glucose level in the last 2-3 month period. Blood BLOOD SPECIMEN / Unknown Venipuncture / Unknown 12/04/2024 1:35 PM EDT 12/04/2024 1:35 PM EDT us Delilah Jones PA-C LABORATORY Final Resu lt [facility] [address] [facility] [place] [address], * (ABNORMAL) COMPREHENSIVE METABOLIC PANEL (12/04/2024 1:35 PM EDT) Pathologist [facility] Protein, Total 6.5 6.3 - 8.0 g/dL 12/04/2024 2:11 PM [facility] Albumin 4.0 3.9 - 4.9 g/dL 12/04/2024 2:11 PM [facility] Calcium, Total 10.4(H) 8.5 - 10.2 mg/dL 12/04/2024 2:11 PM [facility] Bilirubin, Total 0.3 0.2 - 1.3 mg/dL 12/04/2024 2:11 PM [facility] Alkaline Phosphatase 59 38 - 113 U/L 12/04/2024 2:11 PM [facility] AST 15 14 - 40 U/L 12/04/2024 2:11 PM [facility] ALT 13 10 - 54 U/L 12/04/2024 2:11 PM [facility] Glucose 93 74 - 99 mg/dL 12/04/2024 2:11 PM [facility] Comment: The [place] Diabetes Association (ADA) provides guidance for cutoff values for fasting glucose and random glucose. The ADA defines fasting as no caloric intake for at least 8 hours. Fasting plasma glucose results between 100 to 125 mg/dL indicate increased risk for diabetes (prediabetes). Fasting plasma glucose results greater than or equal to 126 mg/dL meet the criteria for diagnosis of diabetes. In the absence of unequivocal hyperglycemia, results should be confirmed by repeat testing. In a patient with classic symptoms of hyperglycemia or hyperglycemic crisis, random plasma glucose results greater than or equal to 200 mg/dL meet the criteria for diagnosis of diabetes. Reference: Standards of Medical Care in Diabetes 2016, [place] [employer] Association. Diabetes Care. 2016.39(Suppl 1). BUN 16 9 - 24 mg/dL 12/04/2024 2:11 PM [facility] Creatinine 0.89 0.73 - 1.22 mg/dL 12/04/2024 2:11 PM [facility] Sodium 142 136 - 144 mmol/L 12/04/2024 2:11 PM [facility] Potassium 4.6 3.7 - 5.1 mmol/L 12/04/2024 2:11 PM [facility] Chloride 107 98 - 107 mmol/L 12/04/2024 2:11 PM [facility] CO2 25 22 - 30 mmol/L 12/04/2024 2:11 PM [facility] Anion Gap 10 8 - 15 mmol/L 12/04/2024 2:11 PM [facility] Estimated Glomerular Filtration Rate 87 >=60 mL/min/1. 73m 12/04/2024 2:11 PM [facility] Comment:Estimated Glomerular Filtration Rate (eGFR) is calculated using the 2020 CKD-EPI creatinine equation. This equation utilizes serum creatinine, sex, and age as parameters. The creatinine assay has traceable calibration to isotope dilution- mass spectrometry. Refer to KDIGO guidelines for clinical interpretation. In patients with unstable renal function, e.g. those with acute kidney injury, the eGFR may not accurately reflect actual GFR. Blood BLOOD SPECIMEN / Unknown Venipuncture / Unknown 12/04/2024 1:35 PM EDT 12/04/2024 1:35 PM EDT us Hung Ghosh MD LABORATORY Final Result [facility] [address] [facility] [place] [address], [place] * (ABNORMAL) COMPLETE BLOOD COUNT AND DIFFERENTIAL (12/04/2024 1:35 PM EDT) WBC 6.76 3.70 - 11.00 k/uL 12/04/2024 1:44 PM EDT [facility] RBC 4.33 4.20 - 6.00 m/uL 12/04/2024 1:44 PM [facility] Hemoglobin 12.0(L) 13.0 - 17.0 g/dL 12/04/2024 1:44 PM T [facility] Hematocrit 38.5(L) 39.0 - 51.0 % 12/04/2024 1:44 PM T [facility] MCV 88.9 80.0 - 100.0 fL 12/04/2024 1:44 PM EDT [facility] MCH 27.7 26.0 - 34.0 pg 12/04/2024 1:44 PM T [facility] MCHC 31.2 30.5 - 36.0 g/dL 12/04/2024 1:44 PM T [facility] RDW-CV 15.1(H) 11.5 - 15.0 % 12/04/2024 1:44 PM EDT [facility] Platelet Count 214 150 - 400 k/uL 12/04/2024 1:44 PM EDT [facility] MPV 9.7 9.0 - 12.7 fL 12/04/2024 1:44 PM T [facility] Neutrophils % 51.3 % 12/04/2024 1:44 PM EDT [facility] Abs Neut 3.46 1.45 - 7.50 k/uL 12/04/2024 1:44 PM EDT [facility] Lymphocytes % 32.4 % 12/04/2024 1:44 PM EDT [facility] Abs Lymph 2.19 1.00 - 4.00 k/uL 12/04/2024 1:44 PM EDT [facility] Monocytes % 11.4 % 12/04/2024 1:44 PM EDT [facility] Abs Larue 0.77 <0.87 k/uL 12/04/2024 1:44 PM EDT [facility] Eosinophils % 4.1 % 12/04/2024 1:44 PM EDT [facility] Abs Eosin 0.28 <0.46 k/uL 12/04/2024 1:44 PM EDT [facility] Basophils % 0.7 % 12/04/2024 1:44 PM EDT [facility] Abs Baso 0.05 <0.11 k/uL 12/04/2024 1:44 PM EDT [facility] Immature Granulocytes % 0.1 % 12/04/2024 1:44 PM EDT [facility] Abs Immature Gran <0.03 <0.10 k/uL 12/04/2024 1:44 PM EDT [facility] NRBC 0.0 /100 WBC 12/04/2024 1:44 PM EDT [facility] Absolute nRBC <0.01 <0.01 k/uL 12/04/2024 1:44 PM EDT [facility] Diff Type Auto 12/04/2024 1:44 PM EDT [facility] Blood BLOOD SPECIMEN / Unknown Venipuncture / Unknown 12/04/2024 1:35 PM EDT 12/04/2024 1:35 PM EDT us Hung Ghosh MD LABORATORY Final Result [facility] [address] [facility] [place] [address], [place] * (ABNORMAL) CT SHOULDER WO IVCON RIGHT (12/04/2024 1:23 PM EDT) Radiology Result ACTIONABLE (Actionabl e) [facility] Comment: This report contains an incidental or actionable finding. This finding may be a new finding separate from the reason your provider ordered the imaging test or it may be an already known finding that needs additional or continued follow-up. Because of this incidental or actionable finding, you may need another test (imaging or a different type of test). Please contact your provider for the next steps. Anatomical Region Laterality Modality Shoulder Computed Tomogra phy 12/04/2024 1:23 PM EDT Impressions 12/04/2024 7:23 PM EDT IMPRESSION: CT images for the purposes of presurgical planning. Advanced right glenohumeral joint osteoarthritis. Multiple tiny right lung nodules, below size criteria for dedicated imaging follow-up unless the patient is at high risk for lung cancer, in which case they may be followed with noncontrast chest CT in 12 months. Incidental Finding: Follow-up Acuity: Incidental Finding: Solid: <6 mm (solitary or multiple) Routing Code: N/A Recommendation: No imaging follow-up is recommended Time Frame: N/A Comments: If there are risk factors for lung malignancy, a follow-up chest CT exam could be obtained in 12 months --END OF FINDING-- Driver License Examiner: WERO Transcribe Date/Time: Dec 04 2024 7:15P Dictated by : SHARDA FOSTER MD This examination was interpreted and the report reviewed and electronically signed by: SHARDA FOSTER MD on Dec 04 2024 7:21PM EST Narrative 12/04/2024 7:23 PM EDT * * *Final Report* * * DATE OF EXAM: Dec 04 2024 1:23PM [facility] 0090 - CT SHOULDER WO IVCON RT / PROCEDURE REASON: multiple diagnoses * * * * Physician Interpretation * * * * EXAMINATION: CT SHOULDER WO IVCON RT CLINICAL HISTORY: Chronic right shoulder pain. Glenohumeral arthritis, right. Preoperative evaluation. TECHNIQUE: Axial CT of the right shoulder was obtained for the purposes of presurgical planning using a dedicated pre-operative protocol. CT Radiation dose: Integrated Dose-length product (DLP) for this visit = 368 mGy*cm. CT Dose Reduction Employed: Automated exposure control(AEC) and iterative recon COMPARISON: Radiographs 11/17/2023. RESULT: Limited CT images for the purposes of presurgical planning. No unexpected acute or aggressive abnormality. Glenohumeral joint chondrocalcinosis and advanced osteoarthritis with pvru-qh-thcc articulation, subchondral sclerosis, cystic changes, chronic osseous remodeling and large marginal osteophytes. Moderate glenohumeral joint effusion with multiple intra-articular bodies. Mild acromioclavicular joint osteoarthritis. No significant rotator cuff muscle atrophy or fatty infiltration. Right apical scarring and mild emphysematous changes. Multiple tiny nodules in the right lung, for example 3 mm solid nodules in the right upper lobe on series 302 images 99 and 117 (302/99). Atherosclerotic calcifications of the aorta, arch branches, and coronary arteries. Subcutaneous lipoma overlying the right pectoralis muscle medially measuring 29 x 14 mm (301/79). No significant additional findings. Powder Operator (topogram) images: No significant findings. Procedure Note Provider, [facility] [place] - 12/04/2024 * * *Final Report* * * DATE OF EXAM: Dec 04 2024 1:23PM [facility] 0090 - CT SHOULDER WO IVCON RT / PROCEDURE REASON: multiple diagnoses * * * * Physician Interpretation * * * * EXAMINATION: CT SHOULDER WO IVCON RT CLINICAL HISTORY: Chronic right shoulder pain. Glenohumeral arthritis, right. Preoperative evaluation. TECHNIQUE: Axial CT of the right shoulder was obtained for the purposes of presurgical planning using a dedicated pre-operative protocol. CT Radiation dose: Integrated Dose-length product (DLP) for this visit = 368 mGy*cm. CT Dose Reduction Employed: Automated exposure control(AEC) and iterative recon COMPARISON: Radiographs 11/17/2023. RESULT: Limited CT images for the purposes of presurgical planning. No unexpected acute or aggressive abnormality. Glenohumeral joint chondrocalcinosis and advanced osteoarthritis with zdxr-nf-vibx articulation, subchondral sclerosis, cystic changes, chronic osseous remodeling and large marginal osteophytes. Moderate glenohumeral joint effusion with multiple intra-articular bodies. Mild acromioclavicular joint osteoarthritis. No significant rotator cuff muscle atrophy or fatty infiltration. Right apical scarring and mild emphysematous changes. Multiple tiny nodules in the right lung, for example 3 mm solid nodules in the right upper lobe on series 302 images 99 and 117 (302/99). Atherosclerotic calcifications of the aorta, arch branches, and coronary arteries. Subcutaneous lipoma overlying the right pectoralis muscle medially measuring 29 x 14 mm (301/79). No significant additional findings. Powder Operator (topogram) images: No significant findings. IMPRESSION IMPRESSION: CT images for the purposes of presurgical planning. Advanced right glenohumeral joint osteoarthritis. Multiple tiny right lung nodules, below size criteria for dedicated imaging follow-up unless the patient is at high risk for lung cancer, in which case they may be followed with noncontrast chest CT in 12 months. Incidental Finding: Follow-up Acuity: Incidental Finding: Solid: <6 mm (solitary or multiple) Routing Code: N/A Recommendation: No imaging follow-up is recommended Time Frame: N/A Comments: If there are risk factors for lung malignancy, a follow-up chest CT exam could be obtained in 12 months --END OF FINDING-- Driver License Examiner: WERO Transcribe Date/Time: Dec 04 2024 7:15P Dictated by : SHARDA FOSTER MD This examination was interpreted and the report reviewed and electronically signed by: SHARDA FOSTER MD on Dec 04 2024 7:21PM EST Hung Ghosh MD CT-PAMA Final Result * XR CHEST 2V FRONTAL/LAT (12/04/2024 1:18 PM EDT) Anatomical Region Laterality Modality Chest Other 12/04/2024 1:18 PM EDT Impressions 12/05/2024 1:08 PM EDT IMPRESSION: No acute radiographic abnormality. 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 Driver License Examiner: WERO Transcribe Date/Time: Dec 05 2024 1:03P Dictated by : KELTON DA SILVA MD This examination was interpreted and the report reviewed and electronically signed by: KELTON DA SILVA MD on Dec 05 2024 1:05PM EST Narrative 12/05/2024 1:08 PM EDT * * *Final Report* * * DATE OF EXAM: Dec 04 2024 1:18PM [id number] - XR CHEST 2V FRONTAL/LAT / PROCEDURE REASON: multiple diagnoses * * * * Physician Interpretation * * * * EXAMINATION: CHEST RADIOGRAPH (2 VIEW FRONTAL & LATERAL) CLINICAL HISTORY: Chronic right shoulder pain Chronic right shoulder pain MQ: XC2_6 EXAM DATE/TIME: 12/04/2024 1:18 PM COMPARISON: 07/22/2024 RESULT: Lines, tubes, and devices: Interval left shoulder arthroplasty. Partially visualized posterior spinal fusion hardware again seen in the thoracolumbar region. Lungs and pleura: No consolidation. No lung mass. No pleural effusion. No pneumothorax. Cardiomediastinal silhouette: Stable. Bones and soft tissues: Marked degenerative changes in the right shoulder. No acute skeletal findings. Procedure Note Provider, [facility] [place] - 12/05/2024 * * *Final Report* * * DATE OF EXAM: Dec 04 2024 1:18PM [id number] - XR CHEST 2V FRONTAL/LAT / PROCEDURE REASON: multiple diagnoses * * * * Physician Interpretation * * * * EXAMINATION: CHEST RADIOGRAPH (2 VIEW FRONTAL & LATERAL) CLINICAL HISTORY: Chronic right shoulder pain Chronic right shoulderpain MQ: XC2_6 EXAM DATE/TIME: 12/04/2024 1:18 PM COMPARISON: 07/22/2024 RESULT: Lines, tubes, and devices: Interval left shoulder arthroplasty. Partially visualized posterior spinal fusion hardware again seen in the thoracolumbar region. Lungs and pleura: No consolidation. No lung mass. No pleural effusion. No pneumothorax. Cardiomediastinal silhouette: Stable. Bones and soft tissues: Marked degenerative changes in the right shoulder. No acute skeletal findings. IMPRESSION IMPRESSION: No acute radiographic abnormality. 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 Driver License Examiner: WERO Transcribe Date/Time: Dec 05 2024 1:03P Dictated by : KELTON DA SILVA MD This examination was interpreted and the report reviewed and electronically signed by: KELTON DA SILVA MD on Dec 05 2024 1:05PM EST Hung Ghosh MD RAD-PAMA Final Result * XR SHOULDER GENERAL 3V OR MORE AP/TRUE AP/OTHER LEFT (10/15/2024 3:02 PM EST) Anatomical Region Laterality Modality Shoulder Other 10/15/2024 3:02 PM EST Impressions 10/15/2024 11:39 PM EST IMPRESSION: Arthroplasty without complication Driver License Examiner: WERO Transcribe Date/Time: Oct 15 2024 11:36P Dictated by : RIANNA BAUM MD This examination was interpreted and the report reviewed and electronically signed by: RIANNA BAUM MD on Oct 15 2024 11:37PM EST Narrative 10/15/2024 11:39 PM EST * * *Final Report* * * DATE OF EXAM: Oct 15 2024 3:02PM [id number] - XR SHLDR >/=3V AP/BLANCHE AP/OTHR LT / PROCEDURE REASON: multiple diagnoses * * * * Physician Interpretation * * * * EXAMINATION / TECHNIQUE: XR SHLDR >/=3V AP/BLANCHE AP/OTHR LT PATIENT/TECHNOLOGIST PROVIDED HISTORY: LEFT SHOULDER POST OP 07/25/24 CLINICAL INFORMATION ( PROVIDED BY ORDERING CLINICIAN) : Aftercare following left shoulder joint replacement surgery Aftercare following left shoulder joint replacement surgery COMPARISON: 09/03/2024 RESULT: Reverse left total shoulder arthroplasty. There is no periprosthetic fracture or lucency. No acute fracture or dislocation. No malalignment. Procedure Note Provider, [facility] [place] - 10/15/2024 * * *Final Report* * * DATE OF EXAM: Oct 15 2024 3:02PM [facility] [id number] - XR SHLDR >/=3V AP/BLANCHE AP/OTHR LT / PROCEDURE REASON: multiple diagnoses * * * * Physician Interpretation * * * * EXAMINATION / TECHNIQUE: XR SHLDR >/=3V AP/BLANCHE AP/OTHR LT PATIENT/TECHNOLOGIST PROVIDED HISTORY: LEFT SHOULDER POST OP 07/25/24 CLINICAL INFORMATION ( PROVIDED BY ORDERING CLINICIAN) : Aftercare following left shoulder joint replacement surgery Aftercare following left shoulder joint replacement surgery COMPARISON: 09/03/2024 RESULT: Reverse left total shoulder arthroplasty. There is no periprosthetic fracture or lucency. No acute fracture or dislocation. No malalignment. IMPRESSION IMPRESSION: Arthroplasty without complication Driver License Examiner: PSCB Transcribe Date/Time: Oct 15 2024 11:36P Dictated by : RIANNA BAUM MD This examination was interpreted and the report reviewed and electronically signed by: RIANNA BAUM MD on Oct 15 2024 11:37PM EST Hung Ghosh MD RAD-PAMA Final Result from Last 3 Months Insurance MEDICARE [place] [id number] MEDICARE SUPPLEMENT Advance Directives * Full Code (Latest Code Status on File) Date Activated Date Inactivated Comments 12/16/2024 2:06 PM 12/17/2024 3:36 PM Question Answer Comments Full Code Order Discussed With: Patient Care Teams Vault Clerk Relationship Specialty Start Date End Date Armando Richards MD [address] [place] [address], [address] [place], [place] [id number] PCP - General Internal Medicine 08/09/23
--- OUTSIDE RECORDS SUMMARY | 2025-01-01 10:22 | XMS_ITS | Clinical Summary ---
Author Organization [employer] Address [id number] [address] [place] [address] Care Team Providers Care Healthcare Network Consultant Name Role Phone Armando Richards MD Primary Care Provider [phone] Allergies Active Allergy Reactions Criticality Noted Date Comments Simvastatin 05/10/2018 Medications melatonin (CIRCADIN) capsule Take 1 capsule (5 mg total) by mouth nightly. Active tamsulosin (FLOMAX) 0.4 mg capsuleIndicatio ns:Chronic kidney disease (CKD) stage G3a/A1, moderately decreased glomerular filtration rate (GFR) between 45-59 mL/min/1.73 square meter and albuminuria creatinine ratio less than 30 mg/g ([facility] Take 1 capsule (0.4 mg total) by mouth once daily at bedtime. 30 capsule 12/10/19 24 Active docusate sodium (COLACE) 100 mg capsule Take 1 capsule (100 mg total) by mouth in the morning and 1 capsule (100 mg total) before bedtime. 60 capsule 2 12/12/19 24 Active DULoxetine (CYMBALTA) 30 mg capsule Take 1 capsule (30 mg total) by mouth in the morning. 90 capsule 3 06/10/20 24 Active metFORMIN (GLUCOPHAGE) 500 mg tabletIndication s:Type 2 diabetes mellitus without complication, without long-term current use of insulin ([facility] TAKE 1 TABLET BY MOUTH IN THE MORNING AT AT NOON AND BEFORE BEDTIME 270 tablet 3 06/27/20 24 Active lisinopriL (PRINIVIL,ZESTRI L) 10 mg tablet TAKE 1 TABLET (10 MG TOTAL) BY MOUTH IN THE MORNING 90 tablet 2 07/22/20 24 Active rosuvastatin (CRESTOR) 20 mg tablet TAKE 1 TABLET BY MOUTH EVERY DAY AT NIGHT 90 tablet 2 07/22/20 24 Active finasteride (PROSCAR) 5 mg tablet Take 1 tablet (5 mg total) by mouth. 10/17/19 25 Active aspirin 81 mg Take 1 tablet (81 mg total) by mouth in the morning. Active cyanocobalamin 1000 MCG tablet TAKE 1 TABLET (1,000 MCG TOTAL) BY MOUTH IN THE MORNING FOR 210 DAYS. 09/24/19 25 Active fluorouraciL (EFUDEX) 5 % cream APPLY TWICE A DAY TO THE AFFECTED AREAS ON SCALP AND FACE FOR 3 WEEKS 11/06/19 25 Active oxyCODONE (ROXICODONE) 5 mg immediate release tabletIndication s:Lumbar degenerative disc disease Take 1 tablet (5 mg total) by mouth in the morning and 1 tablet (5 mg total) before bedtime. Max Daily Amount: 10 mg. 60 tablet 12/04/19 25 Active celecoxib (CeleBREX) 100 mg capsule Take 1 capsule (100 mg total) by mouth in the morning and 1 capsule (100 mg total) before bedtime. 180 capsule 1 12/17/19 Active celecoxib (CeleBREX) 100 mg capsule TAKE 1 CAPSULE (100 MG TOTAL) BY MOUTH IN THE MORNING AND 1 CAPSULE BEFORE BEDTIME 180 capsule 09/16/19 25 025 Discontinued oxyCODONE (ROXICODONE) 5 mg immediate release tabletIndication s:Lumbar degenerative disc disease Take 1 tablet (5 mg total) by mouth in the morning and 1 tablet (5 mg total) before bedtime. Max Daily Amount: 10 mg. 60 tablet 11/01/19 25 025 Discontinued(Re order) Active Problems Problem Noted Date Diagnosed Date CVA (cerebral vascular accident) 07/22/2024 Dizziness 03/24/2024 Double vision 03/24/2024 Elevated BP without diagnosis of hypertension Hypercalcemia 03/23/2021 Type 2 diabetes mellitus wit hout complication, without long-term current use of insulin 09/15/2020 Gastroesophageal reflux disease without esophagi tis 09/15/2020 Generalized osteoarthritis 09/15/2020 ROMEO (obstructive sleep apnea) 09/15/2020 Mixed hyperlipidemia 09/15/2020 Resolved Problems Problem Noted Date Diagnosed Date Resolved Date COPD (chronic obstructive pulmonary disease) 11/02/2022 Encounters Date Type Department Care Team Description 12/26/2024 Telephone [facility] Department of [facility] [address] [place] [address] Lucille Cox CMA Med Refill 12/24/2024 9:45 AM EDT Office Visit [facility] Internal [facility] [address] [place] [phone] Armando Richards MD Drug-induced constipation (Primary Dx) 12/24/2024 Travel 12/23/2024 Telephone [facility] [address] [place] [phone] Uyen Gresham CMA Er Follow-up 12/20/2024 7:42 PM EDT - 12/20/2024 9:17 PM EDT Emergency [facility] - Emergency [address] [place] [phone] Drug-induced constipation (Primary Dx) Discharge Disposition: Home 12/20/2024 Travel 12/13/2024 Refill [facility] [address] [place] [address] Armando Richards MD 12/03/2024 Refill [facility] [address] [place] [phone] Jackie Peralta RMA Lumbar degenerative disc disease 12/02/2024 10:15 AM EDT [facility] [address] [place] [place] [address] Adriana Russell DO Bilateral carotid artery stenosis 12/02/2024 Travel 11/29/2024 9:45 AM EDT Office Visit [facility] [address] [place] [address] Armando Richards MD Generalized osteoarthritis (Primary Dx) 11/26/2024 10:47 AM EDT - 11/26/2024 11:59 PM EDT Hospital Encounter [facility] - Vascular [address] [place] [address] Julio Quispe MD Bilateral carotid artery stenosis Discharge Disposition: Home 11/26/2024 Travel 11/01/2024 2:45 PM EDT Office Visit [facility] [address] [place] [address] Armando Richards MD Right ureteral stone (Primary Dx); Generalized osteoarthritis 11/01/2024 Orders Only [facility] [address] [place] [address] External, Scanning Provider 11/01/2024 Travel 10/31/2024 Refill [facility] [address] [place] [address] Jackie Peralta RMA Lumbar degenerative disc disease 10/30/2024 Orders Only [facility] [address] [place] [address] External, Scanning Provider 10/18/2024 Orders Only [facility] [address] [place] [address] External, Scanning Provider 10/14/2024 Refill [facility] [address] [place] [address] Jackie Peralta RMA from Last 3 Months Immunizations Immunization Administration Dates Next Due COVID-19, mRNA, LNP-S, PF, 100mcg/0.5mL Dose 10/09/2020,09/11/2020 Influenza (IM) Preservative Free 05/29/2017,10/0 04/2015 Influenza High Dose Preserva tive Free IM 04/14/2020,06/02/2018,05/09/2016 Influenza Whole 05/08/2013,05/26/2010 Influenza, High-dose, Quadrivalent 05/15,06/09/2022,05/01/2021,2019 Influenza, Trivalent, Adjuvanted 05/08/2024,03/15 Pneumococcal Conjugate 13-Valent 04/09/2019 RSV, recombinant, protein mace bunit RSVpreF, adjuvant reconstituted, 0.5 mL, PF 11/11/2023 Tdap 11/30/2018 Zoster Vaccine Recombinant 04/11/2019,11/30/2018 Family History Medical History Relation Name Comments COPD Mother leilani Relation Name Status Comments Mother leilani Social History Tobacco Use Types Packs/Day Years Used Date Smoking Tobacco: Former Smokeless Tobacco: Never Tobacco Cessation:Counseling Given: Not Answered Alcohol Use Standard Drinks/Week Comments Yes 0 (1 standard drink = 0.6 oz pur e alcohol) [facility] Utilities Answer Date Recorded In the past 12 months has e [employer], [employer], oil, or water [employer] threatened to shut off services in your [...] Pulse 90 12/24/2024 9:43 AM EDT Temperature 36.4 C (97.5 F) 12/20/2024 7:48 PM EDT Respiratory Rate 17 12/20/2024 7:48 PM EDT Oxygen Saturation 98% 12/20/2024 7:48 PM EDT Inhaled Oxygen Concentration - - Weight 79.8 kg (176 lb) 12/24/2024 9:43 AM EDT Height 172.7 cm (5' 8 ) 12/24/2024 9:43 AM EDT Body Mass Index 26.76 12/24/2024 9:43 AM EDT Plan of Treatment Upcoming Encounters Date Type Department Care Team (Late st Contact Info) Description 06/02/2025 10:15 AM EDT Office Visit [facility] Internal Medicine/Pediatrics [address] [place] [address] Armando Richards MD [address] [place] [address], 1 [place] [address] 06/03/2025 9:30 AM EDT Appointment [facility] - Vascular [address] [place] [phone] Adriana Russell DO [address] [facility] [address] [place] [address] 06/09/2025 10:00 AM EDT Office Visit [facility] [place] [address] [place] [address] Drew Adriana Calvo, DO [address] [facility] [address] [place] [address] 761- Health Maintenance Due Date Last Done Comments COVID-19 Vaccine (8 2023-2 5 season) 2024 05/08/2024, 05/15/2023, 06/09/2022, Additional history exists Influenza Vaccine 04/14/2025 05/08/2024, , 06/09/2022, Additional history exists Depression Screening 05/29/2025 05/29/2024 Fall Risk Screening 05/29/2025 05/29/2024 Medicare Annual Wellness Visit 05/29/2025 1 , 05/26/2023, 03/11/2022, Additional history exists Tobacco Screening 12/24/2025 12/24/2024 DTaP,Tdap and Td Vaccines (2 - Td or Tdap) 11/30/2028 11/30/2018 Zoster (Shingles) Vaccine Completed 04/11/2019, Abdominal Aortic Aneurysm (A AA) Screen Completed 09/05/2024, 01/24/2024, 12/19/2023, Additional history exists Goals Goal Patient Goal Type Associated Problems Recent Progress Patient-Stated? Author Safe dc General Yes Delilah Marroquin LSW Note: Evaluation of progress towards goal: Safe dc transition from hospital to home. Medical Devices Not on file Procedures Procedure Name Priority Date/Time Associated Diagnosis Comments VASC CAROTID DUPLEX BILATERAL Routine 11/26/2024 11:16 AM EDT Bilateral carotid artery stenosis ECG 12-LEAD Routine 10/29/2024 MULTIPLE LABS Routine 10/29/2024 XR CHEST 2 VWS Routine 10/29/2024 CT ABDOMEN AND PELVIS WO CONT Routine 10/18/2024 US RETROPERITONEAL COMPLETE Routine 09/05/2024 from Last 3 Months or Most Recently Relevant to Health Maintenance Results * Vas carotid duplex bilateral (11/26/2024 11:16 AM EDT) Anatomical Region Laterality Modality Vascular Bilateral Ultrasound 11/26/2024 11:3 0 AM EDT Narrative 11/26/2024 2:08 PM EDT Previous: Previous carotid duplex exam performed 03/25/2024. Right: 50-69% ICA stenosis. Left: <50% ICA stenosis. Antegrade vertebral arteries bilaterally. Right: Plaque with borderline significant spectral Doppler/color flow disturbances; ICA Velocity 162/59 cm/sec, ICA/CCA Ratio 2.1. Antegrade vertebral artery flow. Left: Plaque with no significant ICA spectral Doppler or color flow disturbances; ICA 70/21 cm/sec. Antegrade vertebral artery flow. Conclusions: RIGHT:Borderline 50% stenosis of the internal carotid artery.Antegrade vertebral artery flow.LEFT:Plaque without significant stenosis (<50%) of the internal carotid artery. Antegrade vertebral artery flow.When compared to previous report dated March 25, 2024, no significant changes were noted. Procedure Note Kilo Obrien MD - 11/26/2024 Previous: Previous carotid duplex exam performed 03/25/2024. Right: 50-69%ICA stenosis. Left: <50% ICA stenosis. Antegrade vertebral arteriesbilaterally. Right: Plaque with borderline significant spectral Doppler/color flowdisturbances; ICA Velocity 162/59 cm/sec, ICA/CCA Ratio 2.1. Antegradevertebral artery flow. Left: Plaque with no significant ICA spectral Doppler or color flowdisturbances; ICA 70/21 cm/sec. Antegrade vertebral artery flow. Conclusions: RIGHT:Borderline 50% stenosis of the internal carotidartery.Antegrade vertebral artery flow.LEFT:Plaque without significantstenosis (<50%) of the internal carotid artery. Antegrade vertebral arteryflow.When compared to previous report dated March 25, 2024, no significant changes were noted. Julio Quispe MD CV VASCULAR ORDERABLES Nguyen l Result * Multiple labs (10/29/2024) 10/29/2024 us Scanning Provider External [place] IMAGING Final Result Performing Organization Address [facility] Co de Phone Number MANUALLY TRANSCRIBED RESULTS * X-ray chest 2 views (10/29/2024) Anatomical Region Laterality Modality Body, Chest N/A Computed Radiogr aphy 10/29/2024 us Scanning Provider External IMG DIAGNOSTIC IMAGIN G ORDERABLES Final Result * ECG 12 lead (10/29/2024) 10/29/2024 us Scanning Provider External ECG ORDERABLES Final Result Performing Organization Address [facility] Co de Phone Number MANUALLY TRANSCRIBED RESULTS * CT abdomen and pelvis without contrast (10/18/2024) Anatomical Region Laterality Modality Body, Abdomen, Body Covera N/A Compu guero Tomography 10/18/2024 us Scanning Provider External IMG CT ORDERABLES Fin al Result * Ultrasound retroperitoneal complete (09/05/2024) Anatomical Region Laterality Modality Body Ultrasound 09/05/2024 us Scanning Provider External IMG US ORDERABLES Fin al Result from Last 3 Months or Most Recently Relevant to Health Maintenance Insurance MEDICARE [employer] Advance Directives * Full Code (Latest Code Status on File) Date Activated Date Inactivated Comments 03/24/2024 4:54 PM 03/25/2024 11:31 PM * Full Code Date Activated Date Inactivated Comments 03/23/2021 5:11 PM 03/26/2021 12:09 PM Care Teams Healthcare Network Consultant Relationship Specialty Start Date End Date Armando Richards MD [address] [place] [address], [address] [place] [address] PCP - General Pediatrics 12/10/23
--- OUTSIDE RECORDS SUMMARY | 2025-01-01 10:22 | XMS_ITS | Encounter Summary ---
Author Organization [facility] Address [address] [place] [address] Care Team Providers Care Neuropathologist Name Role Phone Armando Richards MD Primary Care Provider + Source Comments In the event this information is protected by the Federal Confidentiality of Alcohol and Drug AbusePatient Records regulations: The Federal rules restrict any use of the information to criminally investigate or prosecute any alcohol or drug abuse patient.[facility] Encounter Details Date Type Department Care Team (Late st Contact Info) Description 07/03/2024 Patient Sdg Internal Medicine [place] [id number] [place] [phone] Provider, Ccf appt reschedule Social History Tobacco Use Types Packs/Day [...] PHQ-2 Answer Date Recorded PHQ-2 score 0 06/12/2024 Hunger Vital Sign Answer Date Recorded Within [...] hearing? Answer Date of Assessment Author No 08/26/2023 5:07 PM Jesus Sandoval RN * Are you blind or do you have serious difficulty seeing, even when wearing glasses? Answer Date of Assessment Author No 08/26/2023 5:07 PM Jesus Sandoval RN * Do you have serious difficulty walking or climbing stairs? Answer Date of Assessment Author No 08/26/2023 5:07 PM Jesus Sandoval RN * Do you have difficulty dressing or bathing? Answer Date of Assessment Author No 08/26/2023 5:07 PM Jesus Sandoval RN * Because of a physical, mental, or emotional condition, do you have difficulty doing errands alone such as visiting a doctor's office or shopping? Answer Date of Assessment Author No 08/26/2023 5:07 PM Jesus Sandoval RN documented as of this encounter Mental Status * Because of a physical, mental, or emotional condition, do you have serious difficulty concentrating, remembering, or making decisions? Answer Entry Date Author No 08/26/2023 5:07 PM Jesus Sandoval RN documented in this encounter Plan of Treatment Upcoming Encounters Date Type Department Care Team (Late st Contact Info) Description 01/28/2025 10:45 AM EDT Office Visit Orthopaedics [address] [place] [address] Hung Ghosh MD [address] [place] [address] TSA documented as of this encounter Visit Diagnoses Not on filedocumented in this encounter Care Teams Neuropathologist Relationship Specialty Start Date End Date Armando Richards MD [address] [place] [address], [address] [place] [address] PCP - General Internal Medicine 08/09/23 documented as of this encounter
--- OUTSIDE RECORDS SUMMARY | 2025-01-01 10:22 | XMS_ITS | Encounter Summary ---
Author Organization [facility] Address [id number] [address] [place] [address] Care Team Providers Care Primary Care Physician Name Role Phone Armando Richards MD Primary Care Provider [phone] Reason for Visit * Reason Comments Med Refill Encounter Details Date Type Department Care Team (Late st Contact Info) Description 05/17/2024 Refill [facility] Internal Medicine/Pediatrics [address] [place] [address] [address] [place] [phone] Armando Richards MD [address] [place] [address], [address] [place], [place] [phone] Social History Tobacco Use Types Packs/Day Years Used Date Smoking Tobacco: Former Smokeless Tobacco: Never Alcohol Use Standard Drinks/Week Comments Yes 0 (1 standard drink = 0.6 oz pur e alcohol) [facility] Utilities Answer Date Recorded In the past 12 months has [employer], gas, oil, or water [employer] threatened to shut off services in your [...] 05/24/2023 PHQ-2 Answer Date Recorded Total Score 04/25/2024 PRAPARE - Transportation Answer Date Re corded [...] got money to buy more. Never True 03/24/2024 Within the past 12 months th e food we bought just didn't last and we didn't have money to get more. Never True 03/24/2024 Purpose - Life Answer Date Recorded Purpose and direction in life Unknown Sex and Gender Information Value Date Recorded Sex Assigned at Not on file Legal Sex Male 11:31 AM EDT Gender Identity Not on file Sexual Orientation Not on file documented as of this encounter Miscellaneous Notes * Telephone Encounter - Lilli Wu CMA - 05/17/2024 2:39 PM EDT Patient no longer on this medication documented in this encounter Plan of Treatment Upcoming Encounters Date Type Department Care Team (Late st Contact Info) Description 06/02/2025 10:15 AM EDT Office Visit [facility] Internal Medicine/Pediatrics [address] [place] [address] [address] [place] [address] Armando Richards MD [address] [place] [address], [address] [place] [address] 06/03/2025 9:30 AM EDT Appointment [facility] - Vascular [address] [place] [address] Adriana Russell, DO [address] [facility] [address] [place] [address] 06/09/2025 10:00 AM EDT Office Visit [facility] [place] [address] Adriana Russell, DO [address] [facility] [address] [place] [address] documented as of this encounter Goals Goal Patient Goal Type Associated Problems Recent Progress Patient-Stated? Author Safe dc General Yes Delilah Marroquin LSW Note: Evaluation of progress towards goal: Safe dc transition from hospital to home. documented as of this encounter Visit Diagnoses Not on filedocumented in this encounter Additional Health Concerns Assessment Noted Time PHQ-9 Depression Total Score: 10 024 9:18 AM EDT documented as of this encounter Care Teams Primary Care Physician Relationship Specialty Start Date End Date Armando Richards MD [address] [place] [address], [address] [place] [address] PCP - General Pediatrics 12/10/23 documented as of this encounter
--- OUTSIDE RECORDS SUMMARY | 2025-01-01 10:22 | XMS_ITS | Encounter Summary ---
Author Organization [facility] Address [address] [place] [address] Care Team Providers Care Automatic Brine Mixer Operator Name Role Phone Armando Richards MD Primary Care Provider + Source Comments In the event this information is protected by the Federal Confidentiality of Alcohol and Drug AbusePatient Records regulations: The Federal rules restrict any use of the information to criminally investigate or prosecute any alcohol or drug abuse patient.[facility] Reason for Visit * Reason Comments Radiology XR Encounter Details Date Type Department Care Team (Late st Contact Info) Description 12/23/2022 Radiology Radiology [address] [place] [address] Daja Nunez, RT(R) Radiology XR Social History Tobacco Use Types Packs/Day Years Used Date Smoking Tobacco: Former Cigarettes 0.5 15 Smokeless Tobacco: Never Comments:Quit years ago Alcohol Use Standard Drinks/Week Comments Yes 2 (1 standard drink = 0.6 oz pur e alcohol) PHQ-2 Answer Date Recorded PHQ-2 score 0 12/09/2022 Sex and Gender Information Value Date Recorded Sex Assigned at Not on file Legal Sex Male 8:43 AM EST Gender Identity Not on file Sexual Orientation Straight 01/26/2022 9: 28 PM EDT documented as of this encounter Progress Notes * Daja Nunez RT(R) - 12/23/2022 2:49 PM EDT Radiology Service Progress Note PATIENT NAME: Tyler Roe DATE OF SERVICE: December 23, 2022 TIME: 2:49 PM PATIENT IDENTITY VERIFICATION COMPLETED USING TWO (2) IDENTIFIERS: Name and Date of confirmedby patient verbally. FALL SCREENING: Has the patient had 2 falls in the last year or 1 fall with injury or currently using an Ambulatory Assistive Device (Walker, Cane, Wheelchair, Crutches, etc.)? Yes, Patient High Riskfor Falls What interventions were put in place to prevent falls during this visit? Offered Assistance with Transfers/Clothing, Instructed Patient to Remain Seated (Not on Exam Table) Until Exam, and Increased Observations by Caregivers PATIENT GENDER DATA: Male PATIENT RELEVANT IMPLANT DATA REVIEWED: Not Applicable RADIOLOGY DEPARTMENT: General X-ray: Exam(s) Completed: Upper Extremity X- Ray(s): Shoulder, AP / TRUE AP / AXILLARY right PERIPHERAL IV DATA: Not applicable SIGNED BY: RT Thomas(R) December 23, 2022 2:49 PM documented in this encounter Plan of Treatment Upcoming Encounters Date Type Department Care Team (Late st Contact Info) Description 01/28/2025 10:45 AM EDT Office Visit Orthopaedics [address] [place] [address] Hung Ghosh MD [address] [place] [address] TSA documented as of this encounter Visit Diagnoses Not on filedocumented in this encounter Care Teams Automatic Brine Mixer Operator Relationship Specialty Start Date End Date Armando Richards MD [address] [place] [address], [address] [place] [address] PCP - General Internal Medicine 08/09/23 documented as of this encounter
--- OUTSIDE RECORDS SUMMARY | 2025-01-01 10:22 | XMS_ITS | Encounter Summary ---
Author Organization [facility] Address [facility] [place] [address] Care Team Providers Care Medical Transcription Editor Name Role Phone Armando Richards MD Primary Care Provider + Source Comments In the event this information is protected by the Federal Confidentiality of Alcohol and Drug AbusePatient Records regulations: The Federal rules restrict any use of the information to criminally investigate or prosecute any alcohol or drug abuse patient.[facility] Encounter Details Date Type Department Care Team (Late st Contact Info) Description 07/08/2024 Get Medical Advice Orthopaedics [address] [place], [place] [phone] Hung Ghosh MD [address] [place] [address] chest xray Social History Tobacco Use Types Packs/Day Years [...] place to sleep or slept in a fpc (including now)? No 08/24/2023 Sex and Gender [...] 01/28/2025 10:45 AM EDT Office Visit Orthopaedics [address] [place], [place] [phone] Hung Ghosh MD [address] [place] [address] TSA documented as of this encounter Visit Diagnoses Not on filedocumented in this encounter Care Teams Medical Transcription Editor Relationship Specialty Start Date End Date Armando Richards MD [address] [place] [address], [address] [place] [address] PCP - General Internal Medicine 08/09/23 documented as of this encounter
--- OUTSIDE RECORDS SUMMARY | 2025-01-01 10:22 | XMS_ITS | Encounter Summary ---
Author Organization [facility] tem Address [facility] [id number] [address] [place] [address] Care Team Providers Care Online Merchandising Coordinator Name Role Phone Armando Richards MD Primary Care Provider [phone] Encounter Details Date Type Department Care Team (Late st Contact Info) Description 10/18/2024 Orders Only [facility] Internal Medicine/Pediatrics [address] [place] [phone] External, Scanning Provider Social History Tobacco Use Types Packs/Day Years Used Date Smoking Tobacco: Former Smokeless Tobacco: Never Alcohol Use Standard Drinks/Week Comments Yes 0 (1 standard drink = 0.6 oz pur e alcohol) [facility] Utilities Answer Date Recorded In the past 12 months has [employer] electric, gas, oil, or water [employer] threatened to shut off services in your [...] Description 06/02/2025 10:15 AM EDT Office Visit [facility] Internal Medicine/Pediatrics [address] [place] [phone] Armando Richards MD [address] [place] [address], [address] [place] [address] 06/03/2025 9:30 AM EDT Appointment [facility] - Vascular [address] [place] [address] Adriana Russell, DO [address] [place] [address] 06/09/2025 10:00 AM EDT Office Visit [facility] [place] [address] Adriana Russell, DO [address] [place] [address] documented as of this encounter Goals Goal Patient Goal Type Associated Problems Recent Progress Patient-Stated? Author Safe dc General Yes Delilah Marroquin LSW Note: Evaluation of progress towards goal: Safe dc transition from hospital to home. documented as of this encounter Procedures Procedure Name Priority Date/Time Associated Diagnosis Comments CT ABDOMEN AND PELVIS WO CONT Routine 10/18/2024 documented in this encounter Results * CT [...] documented as of this encounter Care Teams Online Merchandising Coordinator Relationship Specialty Start Date End Date Armando Richards MD [address] [place] [address], 1 [place] [address] PCP - General Pediatrics 12/10/23 documented as of this encounter
--- OUTSIDE RECORDS SUMMARY | 2025-01-01 10:22 | XMS_ITS | Encounter Summary ---
Author Organization [facility] Address [facility] [place]-[id number] [address] [place] [address] Care Team Providers Care Manager Home Healthcare Name Role Phone Armando Richards MD Primary Care Provider [phone] Reason for Visit * Reason Onset Date Comments Med Refill 10/21/2021 Encounter Details Date Type Department Care Team (Late st Contact Info) Description 10/21/2021 Refill [facility] Internal Medicine/Pediatrics [address] [place] [phone] Lilli Wu CMA Social History Tobacco Use Types Packs/Day Years [...] Exposure Response Date Recorded In the last 10 days, have yo u been in contact with someone who was confirmed or suspected to have Coronavirus/COVID-19? No / Unsure 10/21/2021 9:44 AM EST documented as of this encounter Plan of Treatment Upcoming Encounters Date Type Department Care Team (Late st Contact Info) Description 06/02/2025 10:15 AM EDT Office Visit [facility] Internal Medicine/Pediatrics [address] [place] [address] 1 [place] [phone] Armando Richards MD [address] [place] [address], [address] [place] [address] 06/03/2025 9:30 AM EDT Appointment [facility] - Vascular [address] [place] [phone] Adriana Russell, DO [address] [place] [address] 06/09/2025 10:00 AM EDT Office Visit [facility] [place] [address] [place] [address] Adriana Russell, DO [address] [place] [address] documented as of this encounter Goals Goal [...] documented as of this encounter Care Teams Manager Home Healthcare Relationship Specialty Start Date End Date Armando Richards MD [address] [place] [address], [address] [place] [address] PCP - General Pediatrics 12/10/23 documented as of this encounter
--- OUTSIDE RECORDS SUMMARY | 2025-01-01 10:22 | XMS_ITS | Encounter Summary ---
Author Organization [facility] tem Address [facility] [place]-[id number] [address] [place] [address] Care Team Providers Care Dye Weigher Name Role Phone Armando Richards MD Primary Care Provider [phone] Encounter Details Date Type Department Care Team (Late st Contact Info) Description 10/30/2024 Orders Only [facility] Internal Medicine/Pediatrics [address] [place] [phone] External, Scanning Provider Social History Tobacco Use Types Packs/Day Years Used Date Smoking Tobacco: Former Smokeless Tobacco: Never Alcohol Use Standard Drinks/Week Comments Yes 0 (1 standard drink = 0.6 oz pur e alcohol) [facility] Utilities Answer Date Recorded In the past 12 months has [employer] electric, gas, oil, or water [employer] threatened to shut off services in your [...] Description 06/02/2025 10:15 AM EDT Office Visit [facility] Internal Medicine/Pediatrics [address] [place] [phone] Armando Richards MD [address] [place] [address], [address] [place] [address] 06/03/2025 9:30 AM EDT Appointment [facility] - Vascular [address] [place] [address] Adriana Russell, DO [address] [place] [address] 06/09/2025 10:00 AM EDT Office Visit [facility] [place] [address] Adriana Russell, DO [address] [place] [address] documented as of this encounter Goals Goal Patient Goal Type Associated Problems Recent Progress Patient-Stated? Author Safe dc General Yes Delilah Marroquin LSW Note: Evaluation of progress towards goal: Safe dc transition from hospital to home. documented as of this encounter Procedures Procedure Name Priority Date/Time Associated Diagnosis Comments XR CHEST 2 VWS Routine 10/29/2024 documented in this encounter Results * X-ray chest 2 views (10/29/2024) Anatomical Region Laterality Modality Body, Chest N/A Computed Radiogr aphy 10/29/2024 us Scanning Provider External IMG DIAGNOSTIC IMAGIN G ORDERABLES Final Result documented in this encounter Visit Diagnoses Not on filedocumented in this encounter Additional Health Concerns Assessment Noted Time PHQ-9 Depression Total Score: 7 05/29/20 24 9:00 AM EDT documented as of this encounter Care Teams Dye Weigher Relationship Specialty Start Date End Date Armando Richards MD [address] [place] [address], 1 [place] [address] PCP - General Pediatrics 12/10/23 documented as of this encounter
--- OUTSIDE RECORDS SUMMARY | 2025-01-01 10:22 | XMS_ITS | Encounter Summary ---
Author Organization [facility] tem Address [facility] [id number] [address] [place] [address] Care Team Providers Care Clinical Appeals Auditor Name Role Phone Armando Richards MD Primary Care Provider [phone] Encounter Details Date Type Department Care Team (Late st Contact Info) Description 09/09/2024 Orders Only [facility] Internal Medicine/Pediatrics [address] [place] [phone] External, Scanning Provider Social History Tobacco Use Types Packs/Day Years Used Date Smoking Tobacco: Former Smokeless Tobacco: Never Alcohol Use Standard Drinks/Week Comments Yes 0 (1 standard drink = 0.6 oz pur e alcohol) [facility] Utilities Answer Date Recorded In the past 12 months has [employer] electric, gas, oil, or water [employer] threatened to shut off services in your [...] Description 06/02/2025 10:15 AM EDT Office Visit [facility] Internal Medicine/Pediatrics [address] [place] [phone] Armando Richards MD [address] [place] [address], [address] [place] [address] 06/03/2025 9:30 AM EDT Appointment [facility] - Vascular [address] [place] [address] Adriana Russell, DO [address] [address] [address] [place] [address] 06/09/2025 10:00 AM EDT Office Visit [facility] [place] [address] Adriana Russell, DO [address] [address] [place] [address] documented as of this encounter Goals Goal Patient Goal Type Associated Problems Recent Progress Patient-Stated? Author Safe dc General Yes Delilah Marroquin LSW Note: Evaluation of progress towards goal: Safe dc transition from hospital to home. documented as of this encounter Procedures Procedure Name Priority Date/Time Associated Diagnosis Comments US RETROPERITONEAL COMPLETE Routine 09/05/2024 XR ABDOMEN AP 1 VW Routine 09/05/2024 documented in this encounter Results * X-ray abdomen ap 1 view (09/05/2024) Anatomical Region Laterality Modality Body, Abdomen N/A Computed Radiogr aphy 09/05/2024 us Scanning Provider External IMG DIAGNOSTIC IMAGIN G ORDERABLES Final Result * Ultrasound retroperitoneal complete (09/05/2024) Anatomical Region Laterality Modality Body Ultrasound 09/05/2024 us Scanning Provider External IMG US ORDERABLES Fin al Result documented in this encounter Visit Diagnoses Not on filedocumented in this encounter Additional Health Concerns Assessment Noted Time PHQ-9 Depression Total Score: 7 05/29/20 24 9:00 AM EDT documented as of this encounter Care Teams Clinical Appeals Auditor Relationship Specialty Start Date End Date Armando Richards MD [address] [place] [address], 1 [place] [address] PCP - General Pediatrics 12/10/23 documented as of this encounter
--- OUTSIDE RECORDS SUMMARY | 2025-01-01 10:22 | XMS_ITS | Encounter Summary ---
Author Organization [facility] Address [address] [place] [address] Care Team Providers Care Senior Research Fellow Name Role Phone Armando Richards MD Primary Care Provider + Source Comments In the event this information is protected by the Federal Confidentiality of Alcohol and Drug AbusePatient Records regulations: The Federal rules restrict any use of the information to criminally investigate or prosecute any alcohol or drug abuse patient.[facility] Encounter Details Date Type Department Care Team (Late st Contact Info) Description 11/26/2024 Patient Msg Pre Anesthesia [address] [place] [address] Provider, [facility] appt check in Social [...] place to sleep or slept in a assisted (including now)? No 08/24/2023 Sex and Gender [...] 01/28/2025 10:45 AM EDT Office Visit Orthopaedics [address] [place], [place] [phone] Hung Ghosh MD [address] [place] [address] TSA documented as of this encounter Visit Diagnoses Not on filedocumented in this encounter Care Teams Senior Research Fellow Relationship Specialty Start Date End Date Armando Richards MD [address] [place] [address], 1 [place] [address] PCP - General Internal Medicine 08/09/23 documented as of this encounter
--- OUTSIDE RECORDS SUMMARY | 2025-01-01 10:22 | XMS_ITS | Encounter Summary ---
Author Organization [facility] [employer] [facility] Address [facility] [place]-[id number] [address] [place] [address] Care Team Providers Care Patient Service Coordinator Name Role Phone Armando Richards MD Primary Care Provider [phone] Reason for Visit * Reason Onset Date Comments Med Refill 10/14/2024 Encounter Details Date Type Department Care Team (Late st Contact Info) Description 10/14/2024 Refill [facility] Internal Medicine/Pediatrics [address] [place] [phone] Jackie Peralta RMA Social History Tobacco Use Types Packs/Day Years Used Date Smoking Tobacco: Former Smokeless Tobacco: Never Alcohol Use Standard Drinks/Week Comments Yes 0 (1 standard drink = 0.6 oz pur e alcohol) [facility] Utilities Answer Date Recorded In the past 12 months has e [employer], gas, oil, or water [employer] threatened to shut off services in your [...] Office Visit [facility] Internal Medicine/Pediatrics [address] [place] [phone] Armando Richards MD [address] [place] [address], 1 [place] [address] 06/03/2025 9:30 AM EDT Appointment [facility] - Vascular [address] [place] [address] Adriana Russell, DO [address] [place] [address] 06/09/2025 10:00 AM EDT Office Visit [facility] Vascular [place] [address] [place] [address] Adriana Russell, DO [address] [place] [address] documented as of this encounter Goals Goal [...] documented as of this encounter Care Teams Patient Service Coordinator Relationship Specialty Start Date End Date Armando Richards MD [address] [place] [address], [address] [place] [phone] PCP - General Pediatrics 12/10/23 documented as of this encounter
--- OUTSIDE RECORDS SUMMARY | 2025-01-01 10:22 | XMS_ITS | Encounter Summary ---
Author Organization [facility] Address [facility] [place][id number] [address] [place] [address] Care Team Providers Care Cotton Grader Name Role Phone Armando Richards MD Primary Care Provider Encounter Details Date Type Department Care Team (Late st Contact Info) Description 10/19/2021 Telephone [facility] Internal Medicine/Pediatrics [address] [place] [address] 1 [place] [phone] Armando Richards MD [address] [place] [address], [address] [place], [place] [phone] Social History Tobacco Use Types Packs/Day Years [...] AM EST documented as of this encounter Miscellaneous Notes * Telephone Encounter - Fabienne Barton - 10/19/2021 1:31 PM EST Transition of Care (*required) *Additional Questions/Concerns Requiring PCP Follow-Up: Not at this time This documentation is being used for Transition of Care purposes: Yes Goal: Patient will demonstrate a safe transition Diagnosis on Discharge: Fusion lumbar spine *Name of Discharging Facility: [facility] Date of Facility Discharge: 10/18/21 Date of Interactive Contact and Name of Overhead Distribution Engineer: 10/19/21 Tyler Roe *Medication Review Completed: Pending provider review Medication Reconciliation Questions/Concerns: Not at this time *Follow Up Appointments with Providers: Primary: Armando Richards MD Specialty: Dr Westfall (urology) 11/03/21 Specialty: Dr Brown (neurosurg) 11/01/21 Specialty: Review of Pending Lab/Diagnostic Tests and Plan for Completion: yes Assessment and Support of Treatment Regimen Adherence and Medication Management: yes Education Provided by ACN to Support Self-Management, Independent Living and ADLs: yes Communication with Home Health Agencies and Other Services Utilized/Needed by the Patient: yes [facility] documented in this encounter Plan of Treatment Upcoming Encounters Date Type Department Care Team (Late st Contact Info) Description 06/02/2025 10:15 AM EDT Office Visit [facility] Physicians Internal Medicine/Pediatrics [address] [place] [address] [address] [place] [phone] Armando Richards MD [address] [place] [address], [address] [place], [place] [phone] 06/03/2025 9:30 AM EDT Appointment [facility] - Vascular [address] [place] [phone] Adriana Russell, DO [address] [facility] [address] [place] [address] 06/09/2025 10:00 AM EDT [facility] Visit [facility] [place] [address] [place] [address] Adriana Russell, [address] [place] [address] documented as of this encounter Goals Goal [...] documented as of this encounter Care Teams Cotton Grader Relationship Specialty Start Date End Date Armando Richards MD [address] [place] [address], [address] [place] [address] PCP - General Pediatrics 12/10/23 documented as of this encounter
--- OUTSIDE RECORDS SUMMARY | 2025-01-01 10:23 | XMS_ITS | Encounter Summary ---
Author Organization [facility] tem Address [facility] [place]-[id number] [address] [place] [address] Care Team Providers Care Special Educator Name Role Phone Armando Richards MD Primary Care Provider [phone] Encounter Details Date Type Department Care Team (Late st Contact Info) Description 09/15/2021 Orders Only [facility] Internal Medicine/Pediatrics [address] [place] [phone] External, Scanning Provider Social History Tobacco Use [...] have Coronavirus / COVID-19? No / Unsure 09/03/2021 12:50 PM EST documented as of this encounter Plan of Treatment Upcoming Encounters Date Type Department Care Team (Late st Contact Info) Description 06/02/2025 10:15 AM EDT Office Visit [facility] Physicians Internal Medicine/Pediatrics [address] [place] [address] 1 [place] [phone] Armando Richards MD [facility], [address] [place], [place] [phone] 06/03/2025 9:30 AM EDT Appointment [facility] - Vascular [address] [place] [phone] Adriana Russell, DO [address] [place] [address] 06/09/2025 10:00 AM EDT Office Visit [facility] [address] [place] [address] Adriana Russell, DO [address] [place] [address] documented as of this encounter Goals Goal Patient Goal Type Associated Problems Recent Progress Patient-Stated? Author Safe dc General Yes Delilah Marroquin, MARIN Note: Evaluation of progress towards goal: Safe dc transition from hospital to home. documented as of this encounter Procedures Procedure Name Priority Date/Time Associated Diagnosis Comments SARS COV 2 (COVID-19) STAT 09/13/2021 documented in this encounter Results * SARS COV 2 (COVID-19) (09/13/2021) EXTERNAL SARS COV 2 Negative Negative MANUALLY TRANSCRIBED RESULTS Comment:Ordering physician: Mariusz Brown MD NASOPHARYNGEAL 09/13/2021 us Scanning Provider External MICROBIOLOGY - GENERA L ORDERABLES Final Result MANUALLY TRANSCRIBED RESULTS documented in this encounter Visit Diagnoses Not on filedocumented in this encounter Additional Health Concerns Assessment Noted Time PHQ-9 Depression Total Score: 4 09/15/19 21 9:15 AM EST documented as of this encounter Care Teams Special Educator Relationship Specialty Start Date End Date Armando Richards MD [address] [place] [address], 1 [place] [address] PCP - General Pediatrics 12/10/23 documented as of this encounter
--- OUTSIDE RECORDS SUMMARY | 2025-01-01 10:23 | XMS_ITS | Encounter Summary ---
Author Organization [facility] Address [facility] [place]-[id number] [address] [place] [address] Care Team Providers Care Death Surveys Coder Name Role Phone Armando Richards MD Primary Care Provider [phone] Reason for Visit * Reason Comments Med Refill Encounter Details Date Type Department Care Team (Late st Contact Info) Description 08/18/2023 Refill [facility] Internal Medicine/Pediatrics [address] [place] [address] 1 [place] [phone] Armando Richards MD [address] [place] [address], [address] [place], [place] [phone] Social History Tobacco Use Types Packs/Day Years [...] Telephone Encounter - Lilli Wu CMA - 08/18/2023 1:20 PM EST Too soon to refill documented in this encounter Plan of Treatment Upcoming Encounters Date Type Department Care Team (Late st Contact Info) Description 06/02/2025 10:15 AM EDT Office Visit [facility] Internal Medicine/Pediatrics [address] [place] [address] [address] [place] [address] Armando Richards MD [address] [place] [address], [address] [place], [place] [phone] 06/03/2025 9:30 AM EDT Appointment [facility] - Vascular [address] [place] [phone] Adriana Russell, [address] [place] [address] 06/09/2025 10:00 AM EDT Office Visit [facility] [place] [address] [place] [address] Adriana Russell, [address] [facility] [address] [place] [address] documented as of this encounter Goals Goal [...] documented as of this encounter Care Teams Death Surveys Coder Relationship Specialty Start Date End Date Armando Richards MD [address] [place] [address], [address] [place] [address] PCP - General Pediatrics 12/10/23 documented as of this encounter
--- OUTSIDE RECORDS SUMMARY | 2025-01-01 10:23 | XMS_ITS | Encounter Summary ---
Author Organization [employer] [facility] tem Address [facility] [place][id number] [address] [place] [address] Care Team Providers Care Telephone Order Clerk Name Role Phone Armando Richards MD Primary Care Provider [phone] Encounter Details Date Type Department Care Team (Late st Contact Info) Description 05/05/2023 Orders Only [facility] Internal Medicine/Pediatrics [address] [place] [phone] External, Scanning Provider Social History Tobacco Use [...] Internal Medicine/Pediatrics [address] [place] [address] Armando Richards MD [address] [place] [address], [address] [place], [place] [phone] 06/03/2025 9:30 AM EDT Appointment [facility] - Vascular [address] [place] [phone] Adriana Russell, DO [address] [place] [address] 06/09/2025 10:00 AM EDT Office Visit [facility] [address] [place] [address] Adriana Russell, DO [address] [place] [address] documented as of this encounter Goals Goal Patient Goal Type Associated Problems Recent Progress Patient-Stated? Author Safe dc General Yes Delilah Marroquin LSW Note: Evaluation of progress towards goal: Safe dc transition from hospital to home. documented as of this encounter Procedures Procedure Name Priority Date/Time Associated Diagnosis Comments EGD Routine 05/04/2023 documented in this encounter Results * EGD (05/04/2023) 05/04/2023 us Scanning Provider External GI PROCEDURE ORDERABL ES Final Result MANUALLY TRANSCRIBED RESULTS documented in this encounter Visit Diagnoses Not on filedocumented in this encounter Additional Health Concerns Assessment Noted Time PHQ-9 Depression Total Score: 1 03/11/20 22 8:00 AM EDT documented as of this encounter Care Teams Telephone Order Clerk Relationship Specialty Start Date End Date Armando Richards MD [address] [place] [address], [address] [place] [phone] PCP - General Pediatrics 12/10/23 documented as of this encounter
--- OUTSIDE RECORDS SUMMARY | 2025-01-01 10:23 | XMS_ITS | Encounter Summary ---
Author Organization [facility] tem Address [facility] [place]-[id number] [address] [place] [address] Care Team Providers Care Shredded Filler Cigar Maker Machine Name Role Phone Armando Richards MD Primary Care Provider Encounter Details Date Type Department Care Team (Late st Contact Info) Description 09/09/2021 Orders Only [facility] Internal Medicine/Pediatrics [address] [place] [phone] External, Scanning Provider Social History Tobacco Use [...] 10:15 AM EDT Office Visit [facility] Internal Medicine/Pediatrics [address] [place] [address] [address] [place] [phone] Armando Richards MD [address] [place] [address], [address] [place] [address] 06/03/2025 9:30 AM EDT Appointment [facility] - Vascular [address] [place] [address] Adriana Russell, DO [address] [place] [address] 06/09/2025 10:00 AM EDT Office Visit [facility] [address] [place] [address] Adriana Russell, DO [address] [place] [address] documented as of this encounter Goals Goal [...] documented as of this encounter Care Teams Shredded Filler Cigar Maker Machine Relationship Specialty Start Date End Date Armando Richards MD [address] [place] [address], [address] [place] [address] PCP - General Pediatrics 12/10/23 documented as of this encounter
--- OUTSIDE RECORDS SUMMARY | 2025-01-01 10:23 | XMS_ITS | Encounter Summary ---
Author Organization [employer] tem Address [facility] [id number] [address] [place] [address] Care Team Providers Care Aquatic Instructor Name Role Phone Armando Richards MD Primary Care Provider [phone] Encounter Details Date Type Department Care Team (Latest Contact Info) Description 12/24/2024 Travel Social History Tobacco Use Types Packs/Day Years Used Date Smoking Tobacco: Former Smokeless Tobacco: Never Alcohol Use Standard Drinks/Week Comments Yes 0 (1 standard drink = 0.6 oz pur e alcohol) [facility] Utilities Answer Date Recorded In the past 12 months has [employer] electric, gas, oil, or water company threatened [...] Description 06/02/2025 10:15 AM EDT Office Visit [facility] Internal Medicine/Pediatrics [address] [place] [phone] Armando Richards MD [address] [place] [address], 1 [place] [address] 06/03/2025 9:30 AM EDT Appointment [facility] - Vascular [address] [place] [address] Adriana Russell, DO [address] [place] [address] 06/09/2025 10:00 AM EDT Office Visit [facility] [address] [place] [address] Adriana Russell, [address] [place] [address] documented as of this encounter Goals Goal [...] documented as of this encounter Care Teams Aquatic Instructor Relationship Specialty Start Date End Date Armando Richards MD [address] [place] [address], [address] [place] [address] PCP - General Pediatrics 12/10/23 documented as of this encounter
--- OUTSIDE RECORDS SUMMARY | 2025-01-01 10:23 | XMS_ITS | Encounter Summary ---
Author Organization [facility] tem Address [facility] [place]-[id number] [address] [place] [address] Care Team Providers Care Senior Quality Technician Name Role Phone Armando Richards MD Primary Care Provider Reason for Visit * Reason Onset Date Comments Med Refill 12/26/2024 Encounter Details Date Type Department Care Team (Late st Contact Info) Description 12/26/2024 Telephone [facility] Neurology, A Department of [facility] [address] [facility] [address] [place] [address] Lucille Cox CMA Med Refill Social History Tobacco Use Types Packs/Day Years Used Date Smoking Tobacco: Former Smokeless Tobacco: Never Alcohol Use Standard Drinks/Week Comments Yes 0 (1 standard drink = 0.6 oz pur e alcohol) [facility] Utilities Answer Date Recorded In the past 12 months has charity: water, gas, oil, or water [employer] threatened to shut off services in your [...] encounter Miscellaneous Notes * Telephone Encounter - Lucille Cox CMA - 12/26/2024 9:57 AM EDT Received paper refill request for vitamin B12 1,000 MCG tablet. Please advise. * Telephone Encounter - Lyubov Tracy DO - 12/26/2024 9:57 AM EDT You can send the refill to me if you like or Pcp. Either way is good. documented in this encounter Plan of Treatment Upcoming Encounters Date Type Department Care Team (Late st Contact Info) Description 06/02/2025 10:15 AM EDT Office Visit [facility] Internal Medicine/Pediatrics [address] [facility] [address] [place] [address] Armando Richards MD [address] [facility], [address] [place] [address] 06/03/2025 9:30 AM EDT Appointment [facility] - Vascular [address] [place] [address] Adriana Russell, DO [address] [place] [address] 06/09/2025 10:00 AM EDT Office Visit [facility] [address] [place] [address] Adriana Russell, DO [address] [place] [address] documented as of this encounter Goals Goal [...] documented as of this encounter Care Teams Senior Quality Technician Relationship Specialty Start Date End Date Armando Richards MD [facility] [facility], [address] [place] [address] PCP - General Pediatrics 12/10/23 documented as of this encounter
--- OUTSIDE RECORDS SUMMARY | 2025-01-01 10:23 | XMS_ITS | Encounter Summary ---
Author Organization [facility] Address [address] [place] [address] Care Team Providers Care It Network Architect Name Role Phone Armando Richards MD Primary Care Provider + Source Comments In the event this information is protected by the Federal Confidentiality of Alcohol and Drug AbusePatient Records regulations: The Federal rules restrict any use of the information to criminally investigate or prosecute any alcohol or drug abuse patient.[facility] Encounter Details Date Type Department Care Team (Late st Contact Info) Description 08/27/2024 Patient Msg Urology [address] [place], [place] [phone] Provider, [facility] Appointment Requested - Spine Surgery Social History Tobacco Use Types Packs/Day [...] PHQ-2 Answer Date Recorded PHQ-2 score 0 08/29/2024 Hunger Vital Sign Answer Date Recorded Within [...] 01/28/2025 10:45 AM EDT Office Visit Orthopaedics [address] [place], [place] [phone] Hung Ghosh MD [address] [place] [address] TSA documented as of this encounter Visit Diagnoses Not on filedocumented in this encounter Care Teams It Network Architect Relationship Specialty Start Date End Date Armando Richards MD [address] [place] [address], 1 [place] [address] PCP - General Internal Medicine 08/09/23 documented as of this encounter
--- OUTSIDE RECORDS SUMMARY | 2025-01-01 10:23 | XMS_ITS | Encounter Summary ---
Author Organization [employer] tem Address [facility] [id number] [address] [place] [address] Care Team Providers Care Mainspring Former Brace End Name Role Phone Armando Richards MD Primary Care Provider [phone] Encounter Details Date Type Department Care Team (Latest Contact Info) Description 12/20/2024 Travel Social History Tobacco Use Types Packs/Day Years Used Date Smoking Tobacco: Former Smokeless Tobacco: Never Alcohol Use Standard Drinks/Week Comments Yes 0 (1 standard drink = 0.6 oz pur e alcohol) [facility] Utilities Answer Date Recorded In the past 12 months has [employer] electric, gas, oil, or water company threatened [...] Description 06/02/2025 10:15 AM EDT Office Visit [facility] Internal Medicine/Pediatrics [address] [place] [phone] Armando Richards MD [address] [place] [address], 1 [place] [address] 06/03/2025 9:30 AM EDT Appointment [facility] - Vascular [address] [place] [address] Adriana Russell, DO [address] [place] [address] 06/09/2025 10:00 AM EDT Office Visit [facility] [address] [place] [address] Adriana Russell, [address] [place] [address] documented as of this encounter Goals Goal [...] documented as of this encounter Care Teams Mainspring Former Brace End Relationship Specialty Start Date End Date Armando Richards MD [address] [place] [address], [address] [place] [address] PCP - General Pediatrics 12/10/23 documented as of this encounter
--- OUTSIDE RECORDS SUMMARY | 2025-01-01 10:23 | XMS_ITS | Encounter Summary ---
Author Organization [facility] Address [address] [place] [address] Care Team Providers Care Management Assistant Name Role Phone Unavailable Primary Care Provider Unavailabl e Encounter Details Date Type Department Care Team (Late Contact Info) Description 01/05/2023 Abstract [facility] [address] [facility] 120 [place] [phone] Andreia Parry, RN Social History Tobacco Use Types Packs/Day Years Used Date Smoking Tobacco: Former Cigarettes Passive Smoke Exposure: Past Smokeless Tobacco: Never Alcohol Use Standard Drinks/Week Comments Never 0 (1 standard drink = 0.6 oz pur e alcohol) Sex and Gender Information Value Date Recorded Sex Assigned at Not on file Legal Sex Male 8:24 PM EDT Gender Identity Not on file Sexual Orientation Not on file documented as of this encounter Plan of Treatment Upcoming Encounters Date Type Department Care Team ([facility] Contact Info) Description 01/02/2025 1:10 PM EDT Office Visit [facility] [address] [facility] 120 [place] [address] Manan Baker DPM [address] [facility] [address] [place] [address] documented as of this encounter Visit Diagnoses Not on filedocumented in this encounter
--- OUTSIDE RECORDS SUMMARY | 2025-01-01 10:23 | XMS_ITS | Encounter Summary ---
Author Organization [facility] tem Address [facility] [place][id number] [address] [place] [address] Care Team Providers Care Motor Brakeman Name Role Phone Armando Richards MD Primary Care Provider [phone] Encounter Details Date Type Department Care Team (Late st Contact Info) Description 04/26/2023 Orders Only [facility] Internal Medicine/Pediatrics [address] [place] [phone] External, Scanning Provider Social History Tobacco Use [...] Internal Medicine/Pediatrics [address] [place] [address] Armando Richards MD [address] [place] [address], [address] [place], [place] [phone] 06/03/2025 9:30 AM EDT Appointment [facility] - Vascular [address] [place] [address] Adriana Russell, DO [address] [place] [address] 06/09/2025 10:00 AM EDT Office Visit [facility] [address] [place] [address] Adriana Russell, DO [address] [place] [address] documented as of this encounter Goals Goal Patient Goal Type Associated Problems Recent Progress Patient-Stated? Author Safe dc General Yes Delilah Marroquin LSW Note: Evaluation of progress towards goal: Safe dc transition from hospital to home. documented as of this encounter Procedures Procedure Name Priority Date/Time Associated Diagnosis Comments US RETROPERITONEAL COMPLETE Routine 04/26/2023 documented in this encounter Results * Ultrasound retroperitoneal complete (04/26/2023) Anatomical Region Laterality Modality Body Ultrasound 04/26/2023 us Scanning Provider External IMG US ORDERABLES Fin al Result documented in this encounter Visit Diagnoses Not on filedocumented in this encounter Additional Health Concerns Assessment Noted Time PHQ-9 Depression Total Score: 1 03/11/20 22 8:00 AM EDT documented as of this encounter Care Teams Motor Brakeman Relationship Specialty Start Date End Date Armando Richards MD [address] [place] [address], [address] [place], [place] [phone] PCP - General Pediatrics 12/10/23 documented as of this encounter
--- OUTSIDE RECORDS SUMMARY | 2025-01-01 10:23 | XMS_ITS | Encounter Summary ---
Author Organization [facility] tem Address [facility]-[id number] [address] [place] [address] Care Team Providers Care Operations Tech Name Role Phone Armando Richards MD Primary Care Provider [phone] Reason for Visit * Reason Onset Date Comments Er Follow-up 12/23/2024 Encounter Details Date Type Department Care Team (Late st Contact Info) Description 12/23/2024 Telephone [facility] Internal Medicine/Pediatrics [address] [place] [phone] Uyen Gresham CMA Er Follow-up Social History Tobacco Use Types Packs/Day Years Used Date Smoking Tobacco: Former Smokeless Tobacco: Never Alcohol Use Standard Drinks/Week Comments Yes 0 (1 standard drink = 0.6 oz pur e alcohol) [facility] Utilities Answer Date Recorded In the past 12 months has e [employer], gas, oil, or water [employer] threatened to shut off services in your [...] encounter Miscellaneous Notes * Telephone Encounter - Uyen Gresham CMA - 12/23/2024 8:22 AM EDT ED Outreach This documentation is being used for Transition of Care purposes: Yes/No: Yes ED Outreach Date: December 23, 2024 ED Outreach Method: COMMUNICATION METHOD: Telephone ED Outreach Attempt: second ED Outreach Outcome: Left Message Name of ED Facility: [facility] Date of ED Discharge: 12/20/2024 Discharge Diagnosis: Drug-induced constipation ED Chief Complaint: Constipation Current Symptom Status: Medication Changes Reviewed: Medication Questions/Concerns: Follow-up PCP Scheduled: Follow-up Specialist Scheduled: Follow up Testing Scheduled: Patient Contacted Office Prior to ED Visit: Additional Comments: Left message for patient to return call. Left second message for patient to contact the office. Will await return call. documented in this encounter Plan of Treatment Upcoming Encounters Date Type Department Care Team ([facility] st Contact Info) Description 06/02/2025 10:15 AM EDT Office Visit [facility] Internal Medicine/Pediatrics [address] [place] [address] 1 [place] [address] Armando Richards MD [address] [place] [address], [address] [place], [place] [phone] 06/03/2025 9:30 AM EDT Appointment [facility] - Vascular [address] [place] [address] Adriana Russell, DO [address] [place] [address] 06/09/2025 10:00 AM EDT Office Visit [facility] [address] [place] [address] Adriana Russell, DO [address] [place] [address] documented as of this encounter Goals Goal [...] documented as of this encounter Care Teams Operations Tech Relationship Specialty Start Date End Date Armando Richards MD [address] [place] [address], [address] [place], [place] [phone] PCP - General Pediatrics 12/10/23 documented as of this encounter
--- OUTSIDE RECORDS SUMMARY | 2025-01-01 10:23 | XMS_ITS | Encounter Summary ---
Author Organization [facility] tem Address [id number] [address] [place] [address] Care Team Providers Care Furnace Converter Name Role Phone Armando Richards MD Primary Care Provider Encounter Details Date Type Department Care Team (Late st Contact Info) Description 09/14/2021 Orders Only [facility] Internal Medicine/Pediatrics [address] [place] [phone] External, Scanning Provider Social History Tobacco Use [...] 10:15 AM EDT Office Visit [facility] Internal Medicine/Pediatrics [address] [place] [address] 1 [place] [address] Armando Richards MD [facility] [facility], [address] [place] [address] 06/03/2025 9:30 AM EDT Appointment [facility] - Vascular [address] [place] [address] Adriana Russell, DO [address] [place] [address] 06/09/2025 10:00 AM EDT Office Visit [facility] [address] [place] [address] Adriana Russell, DO [address] [place] [address] documented as of this encounter Goals Goal Patient Goal Type Associated Problems Recent Progress Patient-Stated? Author Safe dc General Yes Delilah Marroquin LSW Note: Evaluation of progress towards goal: Safe dc transition from hospital to home. documented as of this encounter Procedures Procedure Name Priority Date/Time Associated Diagnosis Comments MULTIPLE LABS Routine 09/09/2021 documented in this encounter Results * Multiple labs (09/09/2021) 09/09/2021 us Scanning Provider External [facility] Final Result MANUALLY TRANSCRIBED RESULTS documented in this encounter Visit Diagnoses Not on filedocumented in this encounter Additional Health Concerns Assessment Noted Time PHQ-9 Depression Total Score: 4 09/15/19 21 9:15 AM EST documented as of this encounter Care Teams Furnace Converter Relationship Specialty Start Date End Date Armando Richards MD [address] [place] [address], [address] [place] [address] PCP - General Pediatrics 12/10/23 documented as of this encounter
--- OUTSIDE RECORDS SUMMARY | 2025-01-01 10:23 | XMS_ITS | Encounter Summary ---
Author Organization [facility] tem Address [facility] [place]-[id number] [address] [place] [address] Care Team Providers Care Governor Assembler Hydraulic Name Role Phone Armando Richards MD Primary Care Provider [phone] Encounter Details Date Type Department Care Team (Late st Contact Info) Description 08/23/2021 Orders Only [facility] Internal Medicine/Pediatrics [address] [place] [phone] External, Scanning Provider Social History Tobacco Use [...] have Coronavirus / COVID-19? No / Unsure 08/05/2021 10:30 AM EST documented as of this encounter Plan of Treatment Upcoming Encounters Date Type Department Care Team (Late st Contact Info) Description 06/02/2025 10:15 AM EDT Office Visit [facility] Internal Medicine/Pediatrics [address] [place] [address] 1 [place] [address] Armando Richards MD [facility], [address] [place] [address] 06/03/2025 9:30 AM EDT Appointment [facility] - Vascular [address] [place] [phone] Adriana Russell, DO [address] [place] [address] 06/09/2025 10:00 AM EDT Office Visit [facility] [address] [place] [address] Adriana Russell, DO [address] [place] [address] documented as of this encounter Goals Goal Patient Goal Type Associated Problems Recent Progress Patient-Stated? Author Safe dc General Yes Delilah Marroquin LSW Note: Evaluation of progress towards goal: Safe dc transition from hospital to home. documented as of this encounter Procedures Procedure Name Priority Date/Time Associated Diagnosis Comments NERVE CONDUCTION STUDY Routine 08/18/2021 documented in this encounter Results * Nerve Conduction Study (NCV) (08/18/2021) 08/18/2021 Narrative MANUALLY TRANSCRIBED RESULTS - 08/18/2021 Ordering physician: Francisco Byrnes MD us Scanning Provider External NEUROLOGY ORDERABLES Final Result MANUALLY TRANSCRIBED RESULTS documented in this encounter Visit Diagnoses Not on filedocumented in this encounter Additional Health Concerns Assessment Noted Time PHQ-9 Depression Total Score: 4 09/15/19 21 9:15 AM EST documented as of this encounter Care Teams Governor Assembler Hydraulic Relationship Specialty Start Date End Date Armando Richards MD [address] [place] [address], [address] [place] [phone] PCP - General Pediatrics 12/10/23 documented as of this encounter
--- OUTSIDE RECORDS SUMMARY | 2025-01-01 10:24 | XMS_ITS | CCD ---
Author Organization [facility] Care Team Providers Care Vehicle Calibration Engineer Name Role Phone EBRAHEIM, VICENTE Admitting Unavailable EBRAHEIM, VICENTE Attending Unavailable SELF, REFERRED Referring Unavailable SELF, REFERRED Primary Care Unavailable [place] Procedure Practitioner Unavailab le EBRAHEIM, VICENTE Surgeon Unavailable CA Procedure Practitioner Unavailab MINOO Reinoso Surgeon Unavailable EBRAHEIM, VICENTE Admitting Unavailable EBRAHEIM, VICENTE Attending Unavailable ARMANDO RICHARDS Referring Unavailable ARMANDO RICHARDS Primary Care Unavailable CA Procedure Practitioner Unavailab le LATRELLRAHEIM, VICENTE Surgeon Unavailable CA Procedure Practitioner Unavailab EVA Hammer Surgeon Unavailable EBRAHEIM, VICENTE Admitting Unavailable EBRAHEIM, VICENTE Attending Unavailable ARMANDO RICHARDS Referring Unavailable ARMANDO RICHARDS Primary Care Unavailable CA Procedure Practitioner Unavailab le EBRAHEIM, VICENTE Surgeon Unavailable CA Procedure Practitioner Unavailab LAURA Gaspar Surgeon Unavailable EBRAHEIM, VICENTE Admitting Unavailable EBRAHEIM, VICENTE Attending Unavailable ARMANDO RICHARDS Referring Unavailable ARMANDO RICHARDS Primary Care Unavailable CA Procedure Practitioner Unavailab le LATRELLRAHEIM, VICENTE Surgeon Unavailable CA Procedure Practitioner Unavailab MOON Post Surgeon Unavailable EBRAHEIM, VICENTE Admitting Unavailable EBRAHEIM, VICENTE Attending Unavailable ARMANDO RICHARDS Referring Unavailable ARMANDO RICHARDS Primary Care Unavailable CA Procedure Practitioner Unavailab le EBRAHEIM, VICENTE Surgeon Unavailable CA Procedure Practitioner Unavailab MINOO Reinoso Surgeon Unavailable EBRAHEIM, VICENTE Admitting Unavailable EBRAHEIM, VICENTE Attending Unavailable ARMANDO RICHARDS Referring Unavailable ARMANDO RICHARDS Primary Care Unavailable CA Procedure Practitioner Unavailab le MARCUSHEIM, VICENTE Surgeon Unavailable [place] Procedure Practitioner Unavailab MINOO Reinoso Surgeon Unavailable ARMANDO RICHARDS Primary Care Physician MD Armando Richards Primary Care Provider MD Sharda Brown Attending Provider MD Sharda Brown Admit Provider DO Cory Reese Other Provider MD Rajiv De La O Admit Provider MD Rajiv De La O Attending Provider ALIYAH Beauchamp Other Provider Unavailable ALIYAH Borden Other Provider Unavailable ALIYAH Jensen Other Provider Unavailable Dora RN Andra Other Provider Unavailable ALIYAH De La Cruz Other Provider Unavailable ALIYAH Busby Other Provider Unavailable ALIYAH Amanda Other Provider Unavailable MD Adrian Lou Other Provider MD Charles Nunez Other Provider Dials, CONVEYOR TECHNICIAN Jackie M Other Provider DO Marie Hayes Other Provider MD Geoff Smith Other Provider MD Alejandro Painter Other Provider MD Carmenza Hughes Other Provider MD Rivera Saenz Other Provider [facility], [facility]- Anomi Other Provider MD Zoe Owen Other Provider MD Chele Napier Other Provider MD Dunia Lux Other Provider MD Davis Haji Other Provider DO Marty Martínez Other Provider MD Eva Mathur Other Provider MD Joesph Cherry Other Provider MD Thuy Youssef Other Provider MD German Steward Other Provider RITU Mckay Other Provider MD Vinny Turk Other Provider MD Yuniel Anderson Other Provider MD Dillon Patton Other Provider Unavailable MD Seun Rae Other Provider [phone] MD Eloisa Boykin Other Provider MD Dillan Chau Other Provider MD Kevin York Other Provider DO Stefania Sarmiento Other Provider MD Joana Trivedi Other Provider DO Jose Mendez Other Provider DO Marco Herrmann Other Provider [phone] MARITZA Trinh Other Provider ALIYAH Jacobson Other Provider Unavailable DO Hawk Mccann Other Provider Unavailable Primary Care Provider UnavailSharda Mathew Unavailable Valdo Goode Unavailable MD Armando Richards Primary Care Provider MD Sharda Brown Attending Provider [phone] Alvaro Scales Unavailable Unavailable Primary Care Provider UnavailTemi Flynn Unavailable MD Armando Richards Primary Care Provider GENOVEVA Dean Attending Provider Asaad, Imad Unavailable Unavailable Primary Care Provider UnavailDR EDELMIRA Gil Consulting Unavailable OLU HERRMANN Admitting Unavailable OLU HERRMANN Attending Unavailable OLU HERRMANN Consulting Unavailable DR ARMANDO RICHARDS Primary Care Unavailable OLU HERRMANN Admitting Unavailable OLU HERRMANN Attending Unavailable DR GRAHAM WHYTE V Consulting Unavailable LUE ., OLU Calvo Consulting Unavailable HIESTAND, DR ARMANDO Preciado Primary Care Unavailable ZIEBER, DR EDELMIRA Aragon Consulting Unavailable LUE ., OLU M Admitting Unavailable LUE ., OLU M Attending Unavailable LUE ., OLU M Consulting Unavailable NATTY ALAMO Consulting Unavailable GERIYARELI Consulting Unavailable LUE ., OLU M Attending Unavailable HIESTWILLIE, DR ARMANDO Preciado Primary Care Unavailable LUE ., OLU Calvo Admitting Unavailable ISABELL, DR GRAHAM Kramer Consulting Unavailable LUE ., OLU M Consulting Unavailable HIESTAND, DR ARMANDO Preciado Primary Care Unavailable LUE ., OLU M Admitting Unavailable LUE ., OLU M Attending Unavailable ISABELL, DR GRAHAM Kramer Consulting Unavailable LUE ., OLU Calvo Consulting Unavailable MD Armando Richards Primary Care Provider MD Cortes Abarca Attending Provider HUNG HARDY Attending Unavailable MD Armando Richards Primary Care Provider MD Cortes Abarca Attending Provider Armando Richards Primary Care Provider [phone] Armando Richards Primary Care Provider Unavailable Primary Care Provider UnavailArmando López MD Primary Care Provider EDINSON LOWERY Referring Unavailable ARMANDO RICHARDS Primary Care Unavailable JOCELYN HATFIELD Referring Unavailable ARMANDO RICHARDS Primary Care Unavailable JULIO QUISPE Attending Unavailable LYUBOV BUTT Referring Unavailable ARMANDO RICHARDS Primary Care Unavailable Armando Richards MD Primary Care Provider Armando Richards MD Primary Care Provider MANAN BAKER Attending Unavailable MANAN BAKER Attending Unavailable MANAN BAKER Attending Unavailable MANAN BAKER Attending Unavailable MANAN BAKER Attending Unavailable Olu Sosa MD Attending Provider Lue, Olu M Attending Unavailable Lue, Olu M Admitting Unavailable Lue, Olu M. Admitting Unavailable Lue, Olu M. Attending Unavailable Lue, Olu M. Referring Unavailable Galea, Maritza J Attending Unavailable Olu Sosa Attending Unavailable Olu Sosa Attending Unavailable Olu Sosa Referring Unavailable Beatrice Mireles Attending Unavailable Olu Sosa Attending Unavailable Gabrielaestand Armando METZ Primary Care Provider HUNG JACOBSEN Referring Unavailable HIESTAND, ARMANDO TREJO Primary Care Unavailabl e TJ SMALL Referring Unavailable HIESTAND, ARMANDO TREJO Primary Care Unavailabl e HUNG JACOBSEN Referring Unavailable HIESTAND, ARMANDO TREJO Primary Care Unavailabl e HUNG JACOBSEN Referring Unavailable HIESTAND, ARMANDO TREJO Primary Care Unavailabl e HUNG JACOBSEN Referring Unavailable HIESTAND, ARMANDO TREJO Primary Care Unavailabl e HIESTAND, ARMANDO Preciado Primary Care Unavailable JULIO QIUSPE Attending Unavailable JULIO QUISPE Referring Unavailable HIESTAND, ARMANDO Preciado Primary Care Unavailable VENANCIO NUNEZ Attending Unavailable VENANCIO NUNEZ Referring Unavailable HIESTAND, ARMANDO Preciado Primary Care Unavailable VENANCIO NUNEZ Attending Unavailable VENANCIO NUNEZ Referring Unavailable HIESTAND, ARMANDO Preciado Primary Care Unavailable VENANCIO NUNEZ Attending Unavailable VENANCIO NUNEZ Referring Unavailable HIESTAND, ARMANDO Preciado Primary Care Unavailable HIESTWILLIE, ARMANDO Preciado Primary Care Unavailable VENANCIO NUNEZ Attending Unavailable ARMANDO NEVILLE Admitting Unavailable HIESTANDARMANDO Attending Unavailable GABRIELAESTARMANDO TAPIA Referring Unavailable HIESTAND, ARMANDO Preciado Primary Care Unavailable GABRIELAESTWILLIE, ARMANDO Preciado Referring Unavailable GABRIELAESTWILLIE, ARMANDO Preciado Primary Care Unavailable GABRIELAESTWILLIE, ARMANDO Preciado Attending Unavailable GABRIELAESTARMANDO TAPIA Referring Unavailable HIESTAND, ARMANDO Preciado Primary Care Unavailable HIESTAND, ARMANDO Preciado Attending Unavailable HIESTANDARMANDO Referring Unavailable HIESTAND, ARMANDO Preciado Primary Care Unavailable HIESTAND, ARMANDO Preciado Attending Unavailable HIESTARMANDO TAPIA Referring Unavailable HIESTAND, ARMANDO Preciado Primary Care Unavailable HIESTWILLIE, ARMANDO Preciado Attending Unavailable HIESTANDARMANDO Referring Unavailable HIESTAND, ARMANDO Preciado Primary Care Unavailable ADRIANA LOPEZ Attending Unavailable ARMANDO RICHARDS Referring Unavailable HIESTAND, ARMANDO Preciado Primary Care Unavailable HIESTWILLIE, ARMANDO Preciado Attending Unavailable GABRIELAESTWILLIE, ARMANDO Preciado Referring Unavailable HIESTAND, ARMANDO Preciado Primary Care Unavailable HUNG JACOBSEN Referring Unavailable HIESTAND, ARMANDO TREJO Primary Care Unavailabl e Mahesh SMALL [facility]ending [facility] Unavail[facility] e HO, HUNG Referring Unavailable [facility] Unavailabl e ERIC KEBEDE Referring [facility] Unavailabl e HO, HUNG Referring Un[facility] Unavailabl e Mahesh SMALL Attending Unavailable [facility] Unavailabl e HO, HUNG Referring Unavailable [facility] Primary Care Unavailabl e HO, HUNG Referring Unavailable [facility] Primary Care Unavailabl e TAMERA PINEDA Attending Unavailable [facility], [facility] Primary Care Unavailabl e HO, HUNG Attending Unavailable HO, HUNG Admitting [facility] Unavailabl e HIESTAND, [facility] Unavailabl e HO, HUNG Referring Un[facility] Unavailabl e HO, HUNG Attending [facility] Unavailabl e HO, HUNG Referring Unavailable HO, HUNG Referring [facility] Unavailabl e HO, HUNG Attending Un[facility] Unavailabl e HO, HUNG Attending Un[facility] Unavailabl e HO, HUNG Attending Un[facility] Unavailabl e HO, HUNG Referring Unavailable HIESTAND, [facility] Unavailabl e HO, HUNG Referring [facility] Unavailabl e HO, HUNG Referring Un[facility] Unavailabl e HIESTAND, [facility] Unavailabl e HO, HUNG Attending Unavailable HO, HUNG Admitting Unavailable EDUARDO KHALIL Consulting Unavailable Allergies Allergy Classification Reported Allergen(s) Allergy Type Date of Onset Reaction(s) Facility (20 sources) Simvastatin; Translations: [SIMVASTATIN] Drug Allergy 05-10-2018 Unknown [facility] Medications Current Medications Medication Drug Class(es) Dates Sig (Normalized) Sig (Original) acetaminophen 500 mg oral tablet (20 sources) Start: 12-16-2024 take 2 tablets by mouth every six hours as needed acetaminophen (TYLENOL EXTRA STRENGTH) 500 mg tablet Take 2 tablets by mouth every 6 hours as needed for pain. 60 tablet 12/17/2024 10:32 AM EDT 12/16/2024 Active Start: 07-26-2024 take 2 tablets by mo uth every six hours as needed acetaminophen (TYLENOL EXTRA STRENGTH) 500 mg tablet Take 2 tablets by mouth every 6 hours as needed for pain. for pain. 56 tablet 07/26/2024 Active Start: 10-18-2021 End: 07-31-2023 take 1 tablet by mouth three times daily as needed for pain Acetaminophen 500 mg Tablet Discontinued 500 MG PO Three times daily as needed for Pain October 18, 2021 1:00am May 04, 2023 11:49am Start: 09-20-2021 End: 10-18-2021 take 2 tablets by mouth every four hours as needed for pain Acetaminophen 325 mg Tablet Discontinued 650 MG PO Q4H as needed for Mild Pain September 20, 2021 1:00am October 18, 2021 9:36am Start: 09-20-2021 End: 10-18-2021 take 650 mg by mouth every four hours Acetaminophen Discontinued 650 MG PO Q4H September 20, 2021 1:00am October 18, 2021 9:36am Comment on above: Take 500 mg by mouth . aspirin 81 mg delayed release oral tablet (20 sources) Platelet Aggregation Inhibitor, Nonsteroidal Anti-inflammatory Drug Start: 12-16-2024 End: 12-31-2024 take 1 tablet by mouth twice daily aspirin, enteric coated (ECOTRIN LOW STRENGTH) 81 mg EC tablet Take 1 tablet by mouth two times a day for 14 days. 28 tablet 12/17/2024 10:32 AM EDT 12/16/2024 Active Start: 07-26-2024 End: 08-09-2024 take 1 tablet by mouth twice daily, then take 1 tablet by mouth once daily aspirin, enteric coated (ASPIRIN, ENTERIC COATED) 81 mg EC tablet Take 1 tablet by mouth two times a day for 14 days. Then, resume home dose of 1 tablet once daily. 28 tablet 07/26/2024 Active Start: 03-24-2024 take 81 mg by mouth once daily 81 mg, oral, Daily, First dose on 03/24/24 at 1915, Do not crush or chew. celecoxib 100 mg oral capsule (20 sources) Nonsteroidal Anti-inflammatory Drug Start: 03-12-2024 take 1 capsule by mouth twice daily Celecoxib 100 mg capsule Active 0 .ROUTE .COMPLEX 60 March 12, 2024 6:50am TAKE 1 CAPSULE BY MOUTH TWICE A DAY Start: 10-18-2021 End: 12-16-2024 take 1 capsule by mouth in the morning, then take 1 capsule by mouth at bedtime celecoxib (CeleBREX) 100 mg capsule Take 1 capsule (100 mg total) by mouth in the morning and 1 capsule (100 mg total) before bedtime. 180 capsule 1 12/16/2024 Active Start: 10-18-2021 End: 07-22-2024 take 1 capsule by mouth twice daily celecoxib 100 mg Cap 100 mg = 1 cap(s), Oral, BID Start Date: 11/03/21 Status: Ordered Repeat number: 1 take 1 capsule by [facility] in the morning celecoxib (CeleBREX) 200 MG capsule Take 200 mg by mouth in the morning. Active Comment on above: Take by mouth. Cetirizine (20 sources) Histamine-1 Receptor Antagonist Start: 11-03-2021 cetirizine 10 mg, Daily Start Date: 11/03/21 Status: Ordered Repeat number: 1 Start: 11-03-2021 cetirizine 10 mg, Daily Start Date: 11/03/21 Status: Ordered Start: 09-09-2021 End: 09-09-2021 take 1 tablet by mouth once daily Cetirizine 10 mg Tablet Discontinued 10 MG PO Daily September 09, 2021 1:00am September 09, 2021 3:42pm cholecalciferol 0.05 mg oral capsule (7 sources) Vitamin D take 1 capsule by mouth in the morning cholecalciferol (Vitamin D-3) 50 MCG (1999 UT) capsule Take 2,000 Units by mouth in the morning. Active cyclobenzaprine hydrochloride 5 mg oral tablet (20 sources) Muscle Relaxant Start: 06-30-20 End: 07-22-20 take 1 mg by mouth three times daily cyclobenzaprine 5 mg Tab mg tab(s), Oral, TID, Refills(s) 0 Start Date: 10/04/23 Status: Ordered Repeat number: 1 Start: 11-07-2022 End: 05-04-2023 Cyclobenzaprine 5 mg tablet Discontinued 5 MG PO As Directed November 07, 2022 12:00am May 04, 2023 11:50am Start: 07-12-2022 End: 05-04-2023 Cyclobenzaprine Discontinued 5 MG PO As Directed November 07, 2022 12:00am May 04, 2023 11:50am Comment on above: Take 5 mg by mouth t hree times a day. dextran 70 1 mg/ml / glycerin 2 mg/ml / hypromellose 3 mg/ml ophthalmic solution (1 source) Plasma Volume Sheet Roller Operator, Non-Standardized Chemical Allergen Start: 1 drop, both eyes, As needed, dry eyes, Starting on Mon03/25/24 at 1257 diclofenac sodium 0.01 mg/mg topical gel (14 sources) Nonsteroidal Anti-inflammatory Drug Start: Diclofenac Sodium 1 % 1-2 grams Externally up to four times daily as tolerated for pain relief for 30 days G89.29 Chronic pain Jul, Active docusate sodium 100 mg oral capsule (20 sources) Start: End: take 1 tablet by mouth once daily in the morning for constipation Docusate Sodium 100 mg tab Take 1 tablet by mouth every morning. For constipation prevention. Ensure you take while taking opioid medication. May hold for diarrhea. 30 tablet 07/26/2024 08/25/2024 Active Start: 12-12-2023 End: 12-31-2024 take 1 capsule by mouth twice daily docusate sodium (COLACE) 100 mg capsule Take 1 capsule by mouth two times a day for 14 days. 28 capsule 12/17/2024 10:32 AM EDT 12/16/2024 12/31/2024 Active docusate sodium (COLACE ORAL) Take by mouth once daily. Active take 1 tablet by carly th once daily in the morning Docusate Sodium 100 mg tab Take 100 mg by mouth every morning. Active DULoxetine 30 mg delayed release oral capsule (20 sources) Serotonin and Norepinephrine Reuptake Inhibitor Start: 11-03-2021 duloxetine 30 mg, Oral Start Date: 11/03/21 Status: Ordered Repeat number: 1 Start: 10-18-2021 End: 06-10-2024 DULoxetine (CYMBALTA) 30 mg capsule Take 30 mg by mouth. 09/04/2023 Active Comment on above: Take 30 mg by mouth. esomeprazole 40 mg delayed release oral capsule (20 sources) Proton Pump Inhibitor Start: End: 5 esomeprazole (NEXIUM) 40 mg capsule 11/16/2023 Active finasteride 5 mg oral tablet (12 sources) 5-alpha Reductase Inhibitor Start: 5 finasteride (PROSCAR) 5 mg tablet Take 1 tablet (5 mg total) by mouth. 10/16/2024 Active fluorouracil 50 mg/ml topical cream (9 sources) Nucleoside Metabolic Inhibitor Start: 5 fluorouraciL (EFUDEX) 5 % cream APPLY TWICE A DAY TO THE AFFECTED AREAS ON SCALP AND FACE FOR 3 WEEKS 11/05/2024 Active gabapentin 300 mg oral capsule (20 sources) Anti-epileptic Agent Start: 2 End: 4 take 2 capsules by mouth three times daily gabapentin (NEURONTIN) 300 mg capsule Indications: Myalgia TAKE 2 CAPSULES BY MOUTH 3 TIMES A DAY 180 capsule 2 10/18/2023 Active Start: 03-31-2022 take 2 capsules by m outh every eight hours Gabapentin 300 MG 2 capsules Orally q8h for 30 day(s) Mar, Active Start: 08-04-2021 End: 07-22-2024 take 1 capsule by mouth three times daily gabapentin 300 mg Cap 300 mg = 1 cap(s), Oral, TID Start Date: 11/03/21 Status: Ordered Repeat number: 1 take 2 capsules by m outh every eight hours Gabapentin 300 MG 2 capsules Orally q8h for 30 day(s) Active take 1 capsule by [facility] every twenty-four hours Gabapentin 300 MG 1 capsule Orally Once a day Active Comment on above: Take 1 capsule by mo [facility] three times daily. glucagon (rdna) 1 mg injection (2 sources) Antihypoglycemic Agent Start: 03-24-2024 150 ml glucose 50 mg/ml injection (6 sources) Start: 03-24-2024 Start: 03-24-2024 Start: 03-24-2024 1 ml heparin sodium, porcine 5000 unt/ml injection (1 source) Unfractionated Heparin, Anti-coagulant Start: 03-25-2024 5,000 Units, subcutaneous, Every 8 hours scheduled, First dose on Mon03/25/24 at 0600, Notify prescriber if INR greater than 1.9, hemoglobin less than 10 mg/dL, aPTT greater than 40 seconds, and/or platelet count less than 100,000/mm Look-alike/sound-alike medication - verify indication for use. Observe for bleeding. 3 ml insulin lispro 100 unt/ml pen injector (1 source) Insulin Analog Start: 03-25-2024 L.Acid,Para-B. Bifidum-S.Ther m (Risaquad) 8 billion cell Capsule (7 sources) Start: 10-18-2021 take 8 capsules by mouth once daily L.Acid,Para-B.Bifidum-S.Th erm (Risaquad) 8 billion cell Capsule Active 1 CAP PO Daily October 18, 2021 9:25am Start: 10-18-2021 End: 11-07-2022 take 8 capsules by mouth once daily L.Acid,Para-B.Bifidum-S.Therm (Risaquad) 8 billion cell Capsule Discontinued 1 CAP PO Daily October 18, 2021 1:00am November 07, 2022 10:01am Start: 10-18-2021 take 8 capsules by mouth once daily L.Acid,Para-B.Bifidum-S.Therm (Risaquad) 8 billion cell Capsule Active 1 CAP PO Daily October 18, 2021 12:00am Start: 10-18-2021 take 8 capsules by mouth once daily L.Acid,Para-B.Bifidum-S.Therm (Risaquad) 8 billion cell Capsule Active 1 CAP PO Daily October 18, 2021 1:00am lisinopril 10 mg oral tablet (20 sources) Angiotensin Converting Enzyme Inhibitor Start: 03-25-2024 End: 07-22-2024 take 1 tablet by mouth in the morning lisinopriL (PRINIVIL,ZESTRIL) 10 mg tablet TAKE 1 TABLET (10 MG TOTAL) BY MOUTH IN THE MORNING 90 tablet 2 07/22/2024 Active Start: 03-24-2024 End: 03-24-2024 take 20 mg by mouth once 20 mg, oral, Once, On Sun 07/07 at 1915, For 1 dose, Look-alike/sound-alike medication - verify indication for use. Melatonin (20 sources) Start: 11-03-2021 Melatonin 5 mg , Once a day (at bedtime) Start Date: 11/03/21 Status: Ordered Repeat number: 1 Start: 11-03-2021 Melatonin 5 mg , Once a day (at bedtime) Start Date: 11/03/21 Status: Ordered Start: 10-18-2021 take 1 tablet by carly th once daily at bedtime Melatonin 5 mg Tablet Active 5 MG PO Daily at bedtime October 18, 2021 1:00am End: 07-22-2024 Melatonin 5 mg cap Take 5 mg by mouth. Active Comment on above: Take 5 mg by mouth. meloxicam 15 mg oral tablet (7 sources) Nonsteroidal Anti-inflammatory Drug take 1 tablet by mouth once daily meloxicam (Mobic) 15 MG tablet Take 15 mg by mouth 1 (one) time each day at the same time. Active metFORMIN hydrochloride 500 mg oral tablet (20 sources) Biguanide Start: End: metFORMIN (GLUCOPHAGE) 500 mg tablet Take 500 mg by mouth. 12/24/2021 Active Start: 11-03-2021 take 1 tablet by carly th twice daily metformin 500 mg oral tablet 500 mg = 1 tab(s), Oral, BID Start Date: 11/03/21 Status: Ordered Repeat number: 1 Start: 10-18-2021 take 1 tablet by carly th once at mealtime Metformin 500 mg Tablet Active 500 MG PO 3x/Day with meals October 18, 2021 1:00am Start: 09-20-2021 End: 10-18-2021 take 1 tablet by mouth three times daily at mealtime Metformin 500 mg tablet Discontinued 500 MG PO Three times daily September 20, 2021 6:16pm October 18, 2021 9:36am W/MEALS Start: 09-09-2021 End: 09-20-2021 take 1 tablet by mouth twice daily Metformin 500 mg Tablet Discontinued 500 MG PO Twice daily September 09, 2021 1:00am September 20, 2021 3:12pm Comment on above: Take 500 mg by mouth . mupirocin 0.02 mg/mg topical ointment (5 sources) RNA Synthetase Inhibitor Antibacterial Start: 12-04-2024 End: 12-09-2024 mupirocin (BACTROBAN) 2 % ointment two times a day for 5 days. Apply 0.5 inch with cotton swab (Q-tip) to each nostril in the morning and evening for 5 days prior to and including day of surgery. 22 g 12/04/2024 12/09/2024 Active Start: 07-22-2024 End: 07-27-2024 mupirocin (BACTROBAN) 2 % oi ntment two times a day for 5 days. Apply 0.5 inch with cotton swab (Q-tip) to each nostril in the morning and evening for 5 days prior to and including day of surgery. 22 g 07/22/2024 07/27/2024 Active Start: 07-31-2023 End: 08-05-2023 mupirocin (BACTROBAN) 2 % oi ntment Indications: Pre-op exam two times a day for 5 days. Apply 0.5 inch with cotton swab (Q-tip) to each nostril in the morning and evening for 5 days prior to and including day of surgery. 22 g 0 07/31/2023 08/05/2023 Active Comment on above: two times a day for 5 days. Apply 0.5 inch with cotton swab (Q-tip) to each nostril in the morning and evening for 5 days prior to and including day of surgery. omeprazole 20 mg oral tablet (20 sources) Proton Pump Inhibitor Start: 11-03-2021 take 20 mg by mouth once daily omeprazole 20 mg, Oral, Daily Start Date: 11/03/21 Status: Ordered Repeat number: 1 Start: 09-20-2021 End: 11-07-2022 take 1 capsule by mouth twice daily Omeprazole 20 mg Capsule,Delayed Release(Dr/Ec) Discontinued 20 MG PO Twice daily 60 30 October 18, 2021 1:00am November 07, 2022 10:02am take 1 capsule by [facility] once daily omeprazole (PriLOSEC) [address] capsule Take 1 capsule by mouth 1 (one) time each day at the same time. Active oxyCODONE hydrochloride 5 mg oral tablet (20 sources) Opioid Agonist Start: 01-09-2023 End: 12-03-2024 take 1 tablet by mouth in the morning oxyCODONE (ROXICODONE) 5 mg immediate release tablet Indications: Lumbar degenerative disc disease Take 1 tablet (5 mg total) by mouth in the morning and 1 tablet (5 mg total) before bedtime. Max Daily Amount: 10 mg. 60 tablet 12/03/2024 Active Start: 11-28-2022 oxyCODONE HCl 5 MG 1 tablet as needed Orally twice daily(do not fill until 12/10/22) for 30 days G89.29 Chronic pain Nov, Active Start: 11-10-2022 oxyCODONE HCl 5 MG 1 tablet as needed Orally twice daily(do not fill until 11/10/22) for 30 days G89.29 Chronic pain Oct, Active Start: 09-30-2022 oxyCODONE HCl 5 MG 1 tablet as needed Orally twice daily(do not fill until 10/11/22) for 30 days G89.29 Chronic pain Sep, Active Start: 07-13-2022 take 1 tablet by carly th twice daily as needed oxyCODONE HCl 5 MG 1 tablet as needed Orally twice daily for 30 days G89.29 Chronic pain Jun, Active Start: 06-10-2022 oxyCODONE HCl 5 MG 1 tablet as needed Orally twice daily(do not fill until 06/13/22) for 30 days G89.29 Chronic pain May, Active Start: 05-12-2022 oxyCODONE HCl 5 MG 1 tablet as needed Orally twice daily(do not fill until 05/14/22) for 30 days G89.29 Chronic pain Apr, Active Start: 04-11-2022 oxyCODONE HCl 5 MG 1 tablet as needed Orally twice daily(do not fill until 05/14/22) for 30 days G89.29 Chronic pain Mar, Active Start: 03-13-2022 oxyCODONE HCl 5 MG 1 tablet as needed Orally twice daily(do not fill until 03/13/22) for 30 days G89.29 Chronic pain Feb, Active Start: 01-31-2022 oxyCODONE HCl 5 MG 1 tablet as needed Orally twice daily(do not fill until 02/10/22) for 30 days G89.29 Chronic pain Jan, Active Start: 01-11-2022 take 1 tablet by carly th twice daily as needed oxyCODONE HCl 5 MG 1 tablet as needed Orally twice daily for 30 days December, Active Start: 12-07-2021 take 1 tablet by carly th three times daily as needed oxyCODONE HCl 5 MG 1 tablet as needed Orally three times daily for 30 days Nov, Active Start: 11-15-2021 take 1 tablet by carly th three times daily as needed oxyCODONE HCl 5 MG 1 tablet as needed Orally three times daily (do not fill until 12/02/21) for 30 days Nov, Active Start: 11-15-2021 take 1 tablet by carly th every four to six hours as needed oxyCODONE HCl 5 MG 1 tablet as needed Orally every 4-6 hrs Nov, Active Start: 11-03-2021 take 1 capsule by mo [facility] every four hours oxyCODONE 5 mg Cap 5 mg = 1 cap(s), Oral, q4hr, Refills(s) 0 Start Date: 11/03/21 Status: Ordered Repeat number: 1 Start: 11-01-2021 take 1 tablet by carly every four to six hours as needed oxyCODONE HCl 5 MG 1 tablet as needed Orally every 4-6 hrs Oct, Active Start: 10-18-2021 End: 05-04-2023 take 1 tablet by mouth four times daily as needed for pain Oxycodone 5 mg Tablet Discontinued 5 MG PO Four times daily as needed for Severe Pain 12 03October 18, 2021 May 04, 2023 11:51am Start: 09-20-2021 End: 10-18-2021 take 2 tablets by mouth every six hours as needed for pain Oxycodone 5 mg Tablet Discontinued 10 MG PO Q6H as needed for Pain September 20, 2021 October 18, 2021 9:36am Start: 09-20-2021 End: 10-18-2021 take 10 mg by mouth every six hours Oxycodone Discontinued 10 MG PO Q6H September 20, 2021 October 18, 2021 9:36am take 1 capsule by mo orh twice daily oxyCODONE ir (OXYIR) 5 mg capsule Take 5 mg by mouth two times a day. 0 Active oxyCODONE IR (RO XICODONE) 10 mg tab Take 5 mg by mouth. Active Comment on above: TAKE 1 TABLET (5 MG TOTAL) BY MOUTH IN THE MORNING AND 1 TABLET (5 MG TOTAL) BEFORE BEDTIME. pantoprazole 40 mg delayed release oral tablet (10 sources) Proton Pump Inhibitor Start: 03-25-2024 40 mg, oral, Daily, First dose on 03/25/24 at 0600, Look-alike/sound-alike medication - verify indication for use. If patient is receiving enteral feeding, consider alternative PPI or continue IV pantoprazole until the delayed-release tablet can be taken orally, Indication: NSAID Ulcer Prevention Start: 2023 End: 09-20-2023 Pantoprazole Sodium 40 MG 1 tablet 30 minutes prior to morning meal and 30 minutes prior to evening meal Orally Once a day for 90 days Jan, Active Start: 11-07-2022 End: 05-04-2023 take 1 tablet by mouth twice daily Pantoprazole (Protonix) 40 mg tablet,delayed release (DR/EC) Discontinued 40 MG PO Twice daily 168 84 November 07, 2022 12:00am May 04, 2023 11:50am rosuvastatin calcium 20 mg oral tablet (20 sources) HMG-CoA Reductase Inhibitor Start: 03-25-2024 End: 07-22-2024 take 1 tablet by mouth once daily rosuvastatin (CRESTOR) 20 mg tablet TAKE 1 TABLET BY MOUTH EVERY DAY AT NIGHT 90 tablet 2 07/22/2024 Active 1000 ml sodium chloride 9 mg/ml injection (4 sources) Start: 03-24-2024 Start: 03-24-2024 End: 03-24-2024 take 25 mL intravenously every hour 25 mL/hr, intravenous, Continuous, Starting on Mon03/24/24 at 1420 Start: 03-24-2024 End: 03-24-2024 80 mL, intravenous, Once in imaging, pre/post contrast, Starting on Mon03/24/24 at 1341, For 1 dose Start: 03-24-2024 End: 03-24-2024 10 mL, intravenous, As neede d, line care, Starting on Mon03/24/24 at 1341 tamsulosin hydrochloride 0.4 mg oral capsule (20 sources) alpha-Adrenergic Audrey Start: 05-25-2023 tamsu losin (Flomax) 0.4 MG 24 hr capsule 05/25/2023 Active Start: 10-18-2021 End: 05-04-2023 take 2 capsules by mouth once daily at bedtime Tamsulosin 0.4 mg Capsule Discontinued 0.8 MG PO Daily at bedtime 60 30 October 18, 2021 1:00am May 04, 2023 11:51am Start: 10-18-2021 End: 05-04-2023 take 0.8 mg by mouth once daily at bedtime Tamsulosin Discontinued 0.8 MG PO Daily at bedtime 60 30 October 18, 2021 1:00am May 04, 2023 11:51am Start: 07-29-2021 End: 10-18-2021 tamsulosin (FLOMAX) 0.4 mg T hu 0.4 mg by mouth. 07/29/2021 Active Comment on above: Take 0.4 mg by mouth . vitamin b12 1 mg oral tablet (20 sources) Vitamin B12 Start: 04-25-2024 End: 11-21-2024 take 1 tablet by mouth in the morning cyanocobalamin 1000 MCG tablet TAKE 1 TABLET (1,000 MCG TOTAL) BY MOUTH IN THE MORNING FOR 210 DAYS. 09/24/2024 Active Start: 03-25-2024 End: 03-25-2024 inject 1000 ug by intramuscular injection once 1,000 mcg, intramuscular, Once, On Mon03/25/24 at 1400, For 1 dose Completed/Discontinued Medications Medication Drug Class(es) Dates Sig (Normalized) Sig (Original) acetaminophen 325 mg / HYDROcodone bitartrate 5 mg oral tablet (20 sources) Opioid Agonist HYDROcodone-acet am inophen (NORCO) 5-325 mg per tablet hydrocodone 5 mg-acetaminophen 325 mg tablet 0 Active Comment on above: hydrocodone 5 mg-may taminophen 325 mg tablet acetaminophen 325 mg / oxyCODONE hydrochloride 5 mg oral tablet (13 sources) Opioid Agonist End: 07-22-2024 oxyCODONE-acetamin ophen (PERCOCET) 5-325 mg tablet Take by mouth. 07/22/2024 Discontinued Comment on above: Take by mouth. amLODIPine 2.5 mg oral tablet (14 sources) Dihydropyridine Calcium Channel Audrey Start: 09-20-2021 End: 10-18-2021 take 1 tablet by mouth once daily in the morning Amlodipine 2.5 mg tablet Discontinued 2.5 MG PO Every morning September 20, 2021 6:16pm October 18, 2021 9:36am betamethasone 3 mg/ml / betamethasone acetate 3 mg/ml injectable suspension (1 source) Corticosteroid Start: 03-08-2023 End: 03-08-2023 betamethasone acetate-betamethas one sodium phosphate 6 mg injection (CELESTONE) clonazePAM 0.5 mg oral tablet (20 sources) Benzodiazepine Start: 02-21-2024 End: 07-22-2024 clonazePAM (KLONOPIN) 0.5 mg tablet Take 0.5 mg by mouth. 02/21/2024 07/22/2024 Discontinued clopidogrel 75 mg oral tablet (20 sources) P2Y12 Platelet Inhibitor Start: 03-25-2024 End: 11-01-2024 take 1 tablet by mouth in the morning clopidogreL (PLAVIX) 75 mg tablet Take 1 tablet (75 mg total) by mouth in the morning. 90 tablet 04/22/2024 11/01/2024 Discontinued dexamethasone 4 mg oral tablet (7 sources) Corticosteroid Start: 09-20-2021 End: 10-18-2021 take 1 tablet by mouth every eight hours Dexamethasone 4 mg Tablet Discontinued 4 MG PO Q8H September 20, 2021 1:00am October 18, 2021 9:36am diazePAM 5 mg oral tablet (7 sources) Benzodiazepine Start: 09-20-2021 End: 10-18-2021 take 1 tablet by mouth four times daily as needed for muscle spasms Diazepam 5 mg Tablet Discontinued 5 MG PO Four times daily as needed for Muscle Spasm September 20, 2021 1:00am October 18, 2021 9:36am docusate sodium 50 mg / sennosides, skilled nursing 8.6 mg oral tablet (14 sources) Start: 09-20-2021 End: 11-07-2022 take 2 tablets by mouth twice daily Sennosides-Docusat e Sodium (Stool Softener-Stimulant Laxat) 8.6-50 mg Tablet Discontinued 2 TAB PO Twice daily 120 30 October 18, 2021 1:00am November 07, 2022 10:02am Daisy-C (20 sources) Daisy-C Orally Not-Taking Daisy-C Orally A ctive Fish Oils (20 sources) take 1 capsule by mo uth once daily Fish Oil 1200 MG 1 capsule Orally Once a day Not-Taking take 1 capsule by mouth once marie ly Fish Oil 1200 MG 1 capsule Orally Once a day Active hydroCHLOROthiazide 25 mg oral tablet (14 sources) Thiazide Diuretic Start: 09-20-2021 End: 10-18-2021 take 1 tablet by mouth once daily in the morning Hydrochlorothiazide 25 mg tablet Discontinued 25 MG PO Every morning September 20, 2021 6:16pm October 18, 2021 9:36am iohexoL (OMNIPAQUE) 350 mg iodine/mL injection 100 mL (1 source) Start: 03-24-2024 End: 03-24-2024 100 mL, intravenous, Once in imaging, contrast, Starting on 03/24/24 at 1341, For 1 dose, VESICANT (RED) L. Gasseri-B. Bifidum-B Longum (Feedtrace) 1.5 billion cell Capsule (7 sources) Start: 09-09-2021 End: 10-18-2021 L. Gasseri-B. Bifidum-B Longum (Feedtrace) 1.5 billion cell Capsule Discontinued 1 CAP PO Daily September 09, 2021 3:31pm October 18, 2021 9:36am Start: 09-09-2021 End: 10-18-2021 L. Gasseri-B. Bifidum-B Long um (Feedtrace) 1.5 billion cell Capsule Discontinued 1 CAP PO Daily September 09, 2021 12:00am October 18, 2021 8:36am Start: 09-09-2021 End: 10-18-2021 L. Gasseri-B. Bifidum-B Long um (Feedtrace) 1.5 billion cell Capsule Discontinued 1 CAP PO Daily September 09, 2021 1:00am October 18, 2021 9:36am ammonium lactate 120 mg/ml topical lotion (4 sources) Start: 11-12-2021 End: 09-19-2023 ammonium lactate (LAC-HYDRIN) 12 % lotion APPLY 1 APPLICATION TOPICALLY NEEDED FOR DRY SKIN. 225 g 1 11/12/2021 09/19/2023 Discontinued (Therapy completed) 10 ml lidocaine hydrochloride 10 mg/ml injection (8 sources) Antiarrhythmic, Amide Local Anesthetic Start: 03-08-2023 End: 03-08-2023 lidocaine (PF) 10 mg/mL (1 %) 4 mL injection (XYLOCAINE) Start: 10-18-2021 End: 11-07-2022 apply 1 dose topically once daily Lidocaine (Lidocaine Pain Relief) 4 % Adhesive Patch,Medicated Discontinued 2 PATCH TOPICAL Daily 30 October 18, 2021 1:00am November 07, 2022 10:02am MULTIVITAMIN ORAL (15 sources) End: 12-04-2024 MULTIVITAMIN ORAL Take by [facility] once daily. 12/04/2024 Discontinued (Discontinued by Patient) MULTIVITAMIN ORA L Take by mouth once daily. Active Multivitamins (20 sources) Multivitamins Or ally Not-Taking Multivitamins Or ally Active naproxen 500 mg delayed release oral tablet (3 sources) Nonsteroidal Anti-inflammatory Drug Start: 12-10-2023 End: 12-25-2023 take 1 tablet by mouth twice daily as needed for pain naproxen (EC NAPROSYN) 500 mg EC tablet Take 1 tablet (500 mg total) by mouth 2 (two) times a day as needed for pain for up to 15 days. 30 tablet 12/10/2023 12/25/2023 ondansetron 4 mg disintegrating oral tablet (5 sources) Serotonin-3 Receptor Antagonist Start: 12-10-2023 End: 02-21-2024 take 1 tablet by mouth every eight hours as needed for nausea ondansetron ODT (ZOFRAN ODT) 4 mg disintegrating tablet Dissolve 1 tablet (4 mg total) on tongue every 8 (eight) hours as needed for nausea for up to 10 doses. 10 tablet 12/10/2023 02/21/2024 Discontinued (Therapy completed) petrolatum 0.41 mg/mg topical ointment (7 sources) Start: 10-18-2021 End: 11-07-2022 White Petrolatum (Aquaphor Healing) 41 % Ointment Discontinued 1 APPLIC TOPICAL Twice daily 60 October 18, 2021 1:00am November 07, 2022 10:02am [facility] (20 sources) Start: 02-02-2016 [facility] as directed Orally Jan, Not-Taking Start: 02-02-2016 [facility] as directed Orally Jan, Active polyethylene glycol 3350 98040 mg powder for oral solution (7 sources) Osmotic Laxative Start: 10-18-2021 End: 11-07-2022 Polyethylene Glycol 3350 (Miralax) 17 gram Powder In Packet Discontinued 17 GM PO Daily October 18, 2021 1:00am November 07, 2022 10:02am Potassium (20 sources) potassium 1 tab Oral Not-Taking potassium 1 tab Oral Active Prostate Health (20 sources) Prostate Health Orally Not-Taking Prostate Health Orally Active 20 ml ropivacaine hydrochloride 5 mg/ml injection (7 sources) Amide Local Anesthetic Start: 02-23-2024 End: 02-23-2024 ROPivacaine (PF) 5 mg/mL (0.5 %) 5 mL injection (NAROPIN) Start: 11-17-2023 End: 11-17-2023 ROPivacaine (PF) 5 mg/mL (0. 5 %) 5 mL injection (NAROPIN) Start: 03-08-2023 End: 03-08-2023 ROPivacaine (PF) 5 mg/mL (0. 5 %) 2 mL injection (NAROPIN) temazepam 15 mg oral capsule (7 sources) Benzodiazepine Start: 10-18-2021 End: 11-07-2022 take 1 capsule by mouth once daily as needed for sleep Temazepam 15 mg Capsule Discontinued 15 MG PO DAILY@2000 as needed for sleep October 18, 2021 9:35am November 07, 2022 10:02am 1 ml triamcinolone acetonide 40 mg/ml injection (6 sources) Corticosteroid Start: 02-23-2024 End: 02-23-2024 triamcinolone acetonide 80 mg injection (KeNALog 40) Start: 11-17-2023 End: 11-17-2023 triamcinolone acetonide 80 m g injection (KeNALog 40) Vitamin D3 1000 UNIT (20 sources) take 1 capsule by mo uth once daily Vitamin D3 1000 UNIT 1 capsule Orally Once a day Not-Taking take 1 capsule by mouth once marie ly Vitamin D3 1000 UNIT 1 capsule Orally Once a day Active Problems Active Problems Problem Classification Problem Date Documented Da te Episodic/Chronic Abdominal hernia (20 sources) Hiatal hernia; Translations: [Diaphragmatic hernia without obstruction or gangrene] Episodic Abdominal pain (20 sources) Abdominal pain; Translations: [Unspecified abdominal pain] Onset: 5 Episodic Acute cerebrovascular disease (20 sources) Cerebral infarction, unspecified; Translations: [Cerebrovascular accident] Onset: 4 07-22-2024 Chronic Administrative/social admission (20 sources) Other reduced mobility; Translations: [Impaired mobility and activities of daily living] 09-21-2021 Episodic Comment on above: Problem List clean-u p per request of Phys. EHR Cmte Anal and rectal conditions (20 sources) Anal and rectal polyp; Translations: [Rectal polyp] Episodic Anxiety disorders (2 sources) Anxiety; Translations: [Anxiety disorder, unspecified] Onset: 4 02-21-2024 Chronic Chronic obstructive pulmonary disease and bronchiectasis (20 sources) Chronic obstructive lung disease; Translations: [Chronic obstructive pulmonary disease, unspecified] Onset: 1 Resolved: 3 11-03-2021 Chronic Comment on above: Problem List clean-u p per request of Phys. EHR Cmte Chronic ulcer of skin (7 sources) Ulcer of thigh; Translations: [Pressure ulcer of left hip, stage 2] Onset: 3 01-04-2023 Chronic Diabetes mellitus without complication (20 sources) Diabetes mellitus; Translations: [Type 2 diabetes mellitus] Onset: 1 11-03-2021 Chronic Comment on above: Problem List clean-u p per request of Phys. EHR Cmte Diabetes mellitus without complication (9 sources) Hyperglycemia; Translations: [Hyperglycemia, unspecified] 09-19-2021 Episodic Comment on above: Problem List clean-u p per request of Phys. EHR Cmte Disorders of lipid metabolism (20 sources) Mixed hyperlipidemia; Translations: [Mixed hyperlipidemia] Onset: 1 07-22-2024 Chronic Esophageal disorders (20 sources) Gastroesophageal reflux disease; Translations: [Gastro-esophageal reflux disease without esophagitis] Onset: 1 11-03-2021 Chronic Essential hypertension (10 sources) Hypertensive disorder; Translations: [Essential (primary) hypertension] Onset: 5 09-21-2021 Chronic Comment on above: Problem List clean-u p per request of Phys. 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] Onset: 3 Chronic Genitourinary symptoms and ill-defined conditions (1 source) Procedure carried out on subject; Translations: [Encounter for fitting and adjustment of urinary device] Onset: 5 Chronic Heart valve disorders (8 sources) Mitral valve regurgitation; Translations: [Nonrheumatic mitral (valve) insufficiency] Onset: 5 12-04-2024 Chronic Hemorrhoids (20 sources) Hemorrhoids; Translations: [Unspecified hemorrhoids] Episodic Hyperplasia of prostate (20 sources) Benign prostatic hypertrophy with outflow obstruction; Translations: [Benign prostatic hyperplasia with lower urinary tract symptoms] Onset: 2 Chronic Mycoses (6 sources) Pain in toe; Translations: [Tinea unguium] 06-03-2024 Episodic Occlusion or stenosis of precerebral arteries (20 sources) Occlusion and stenosis of bilateral carotid arteries; Translations: [Occlusion and stenosis of right carotid artery] Onset: 4 07-22-2024 Chronic Osteoarthritis (20 sources) Arthritis; Translations: [Localized, primary osteoarthritis of the shoulder region] Onset: 1 11-03-2021 Chronic Other acquired deformities (20 sources) Scoliosis of lumbar spine; Translations: [Scoliosis, unspecified] 09-15-2021 Chronic Comment on above: Problem List clean-u p per request of Phys. [facility]HR [facility] Other acquired deformities (2 sources) Scoliosis, unspecified; Translations: [Scoliosis [and kyphoscoliosis], idiopathic] Chronic Other acquired deformities (12 sources) Other forms of scoliosis, lumbar region Onset: 1 Resolved: 2 Chronic Other acquired deformities (8 sources) Postsurgical lordosis; Translations: [Flatback syndrome, site unspecified] Chronic Other acquired deformities (1 source) Flatback syndrome, site unspecified; Translations: [Flat back syndrome, postprocedural] Onset: 5 Chronic Other aftercare (4 sources) Patient encounter status; Translations: [Aftercare following joint replacement surgery] 08-08-2024 Chronic Other aftercare (1 source) Aftercare following joint replacement surgery; Translations: [Aftercare following left shoulder joint replacement surgery] Onset: 5 Chronic Other and ill-defined cerebrovascular disease (1 source) Other cerebrovascular vasospasm and vasoconstriction; Translations: [Other cerebrovascular vasospasm and vasoconstriction] Onset: 4 Chronic Other and ill-defined cerebrovascular disease (2 sources) Cerebrovascular disease; Translations: [Other cerebrovascular vasospasm and vasoconstriction] 03-27-2024 Chronic Other connective tissue disease (1 source) Presence of left artificial shoulder joint; Translations: [Aftercare following left shoulder joint replacement surgery] Onset: 5 Chronic Other connective tissue disease (2 sources) History of reverse prosthetic total arthroplasty of right shoulder; Translations: [Presence of right artificial shoulder joint] Onset: 5 12-16-2024 Chronic Other connective tissue disease (4 sources) Quadriceps weakness; Translations: [Muscle weakness (generalized)] Episodic Other connective tissue disease (3 sources) Atrophy of quadriceps femoris muscle; Translations: [Muscle wasting and atrophy, not elsewhere classified, unspecified thigh] Episodic Other connective tissue disease (3 sources) Pain of left thigh; Translations: [Pain in left thigh] Episodic Other connective tissue disease (3 sources) Tendinitis of right rotator cuff; Translations: [Other shoulder lesions, right shoulder] Episodic Other connective tissue disease (6 sources) Biceps tendinitis; Translations: [Bicipital tendinitis, right shoulder] Episodic Other connective tissue disease (3 sources) Tendinitis of left rotator cuff; Translations: [Other shoulder lesions, left shoulder] 02-23-2024 Episodic Other connective tissue disease (1 source) Bicipital tendinitis, right shoulder; Translations: [Bicipital tenosynovitis] 06-18-2024 Episodic Other diseases of kidney and ureters (3 sources) Urinary tract obstruction; Translations: [Other obstructive and reflux uropathy] Onset: 2 Episodic Other diseases of kidney and ureters (11 sources) Hydronephrosis; Translations: [Unspecified hydronephrosis] Onset: 3 Episodic Other gastrointestinal disorders (20 sources) Swollen abdomen; Translations: [Abdominal distension (gaseous)] Episodic Other gastrointestinal disorders (2 sources) Drug induced constipation; Translations: [Drug induced constipation] Onset: 5 Episodic Other gastrointestinal disorders (1 source) Constipation Onset: 5 Episodic Other gastrointestinal disorders (1 source) Drug-induced constipation; Translations: [Drug induced constipation] 12-24-2024 Episodic Other injuries and conditions due to external causes (7 sources) Foreign body in bladder; Translations: [Foreign body in bladder, initial encounter] Onset: 3 Episodic Other male genital disorders (5 sources) Impotence 05-03-2023 Chronic Other nervous system disorders (20 sources) Idiopathic peripheral neuropathy; Translations: [Hereditary and idiopathic neuropathy, unspecified] Chronic Other nervous system disorders (3 sources) Hereditary and idiopathic neuropathy, unspecified Onset: 1 Resolved: 2 Chronic Other nervous system disorders (20 sources) Chronic pain; Translations: [Other chronic pain] Chronic Other nervous system disorders (17 sources) Other chronic pain; Translations: [Chronic right shoulder pain] Onset: 2 Resolved: 2 Chronic Other nervous system disorders (1 source) Abnormal gait; Translations: [Unspecified abnormalities of gait and mobility] Episodic Other nervous system disorders (2 sources) Other acute postprocedural pain; Translations: [Acute post-operative pain] Onset: 4 Episodic Other non-traumatic joint disorders (1 source) Decreased range of shoulder movement; Translations: [Stiffness of right shoulder, not elsewhere classified] 03-08-2023 Episodic Other non-traumatic joint disorders (20 sources) Chronic pain of right upper limb; Translations: [Pain in right shoulder] Onset: 3 03-08-2023 Episodic Other non-traumatic joint disorders (1 source) Stiffness of right shoulder, not elsewhere classified; Translations: [Decreased range of motion of right shoulder] Onset: 3 Episodic Other non-traumatic joint disorders (9 sources) Chronic pain of left upper limb; Translations: [Pain in left shoulder] 06-18-2024 Episodic Other nutritional; endocrine; and metabolic disorders (20 sources) Body mass index 30+ - obesity; Translations: [Body mass index (BMI) 30.0-30.9, adult] Chronic Other nutritional; endocrine; and metabolic disorders (20 sources) Hypercalcemia; Translations: [Hypercalcemia] Onset: 1 03-23-2021 Chronic Residual codes; unclassified (7 sources) Sleep apnea; Translations: [Sleep apnea, unspecified] 09-21-2021 Chronic Comment on above: Problem List clean-u p per request of Phys. EHR Cmte Residual codes; unclassified (1 source) Sleep apnea, unspecified; Translations: [Unspecified sleep apnea] Chronic Residual codes; unclassified (20 sources) Obstructive sleep apnea syndrome; Translations: [Obstructive sleep apnea (adult) (pediatric)] Onset: 1 07-22-2024 Chronic Residual codes; unclassified (1 source) Obstructive sleep apnea (adult) (pediatric); Translations: [Obstructive sleep apnea syndrome] Onset: 4 Chronic Residual codes; unclassified (7 sources) Insomnia; Translations: [Insomnia, unspecified] 10-18-2021 Episodic Comment on above: Problem List clean-u p per request of Phys. EHR Cmte Residual codes; unclassified (14 sources) Pain; Translations: [Pain, unspecified] 09-27-2021 Episodic Comment on above: Problem List clean-u p per request of Phys. EHR Cmte Residual codes; unclassified (7 sources) Delirium; Translations: [Disorientation, unspecified] 09-15-2021 Episodic Comment on above: Problem List clean-u p per request of Phys. EHR Cmte Residual codes; unclassified (2 sources) Disorientation, unspecified; Translations: [Other alteration of consciousness] Episodic Residual codes; unclassified (1 source) Pain, unspecified; Translations: [Generalized pain] Episodic Residual codes; unclassified (1 source) Postoperative state; Translations: [Other specified postprocedural states] 08-08-2024 Episodic Spondylosis; intervertebral disc disorders; other back problems (20 sources) Solitary sacroiliitis; Translations: [Sacroiliitis, not elsewhere classified] Onset: 2 Resolved: 2 Chronic Unclassified (1 source) CONTACT W/AND (SUSP) EXPOS COVID-19; Translations: [CONTACT W/AND (SUSP) EXPOS COVID-19] Onset: 2 Unclassified (1 source) Carotid Artery Disease Onset: 4 Unclassified (5 sources) Chronic pain of right upper limb 10-15-2024 Unclassified (3 sources) Patient encounter status 10-15-2024 Unclassified (1 source) Blurred Vision Onset: 4 Unclassified (1 source) Er Follow-up Onset: 5 Unclassified (1 source) Pre-op Exam Onset: 5 Unclassified (1 source) Other intervertebral disc degeneration, lumbar region without mention of lumbar back pain or lower extremity pain; Translations: [Other intervertebral disc degeneration, lumbar region without mention of lumbar back pain or lower extremity pain] Onset: 4 Unclassified (1 source) Annual Exam Onset: 4 Unclassified (1 source) stomach pain Onset: 4 Past or Other Problems Problem Classification Problem Date Documented Da te Episodic/Chronic Blindness and vision defects (20 sources) Diplopia; Translations: [Diplopia] Onset: 03-24-2024 03-24-2024 Episodic Calculus of urinary tract (20 sources) Kidney stone; Translations: [Calculus of kidney] Onset: 11-03-2021 Episodic Complications of surgical procedures or medical care (7 sources) Pseudarthrosis following spinal fusion; Translations: [Pseudarthrosis after fusion or arthrodesis] Onset: 08-27-2024 Episodic Conditions associated with dizziness or vertigo (20 sources) Dizziness; Translations: [Dizziness and giddiness] Onset: 03-24-2024 03-24-2024 Episodic Gastritis and duodenitis (7 sources) Gastritis; Translations: [Gastritis, unspecified, without bleeding] Onset: 01-04-2023 01-04-2023 Episodic Genitourinary symptoms and ill-defined conditions (4 sources) Retention of urine; Translations: [Other retention of urine] Onset: 11-03-2021 Episodic Malaise and fatigue (3 sources) Fatigue; Translations: [Other fatigue] Onset: 02-21-2024 11-27-2023 Episodic Mood disorders (20 sources) Mood disorders Onset: 04-25-2024 Resolved: 05-29-2024 05-29-2024 Other acquired deformities (7 sources) Lumbar spondylolisthesis; Translations: [Spondylolisthesis, lumbar region] Onset: 01-04-2023 01-04-2023 Episodic Other aftercare (1 source) [facility] (current) use of oral hypoglycemic drugs; Translations: [[facility] USE ORAL HYPOGLYCEMIC DX] Onset: 05-25-2022 Episodic Other aftercare (1 source) Other [facility] (current) drug therapy; Translations: [OTH [facility] CURRENT DRUG THERAPY] Onset: 05-25-2022 Episodic Other bone disease and musculoskeletal deformities (1 source) Other specified disorders of bone density and structure, unspecified site Onset: 07-28-2021 Resolved: 07-28-2021 Episodic Other circulatory disease (20 sources) Elevated blood pressure; Translations: [Elevated blood-pressure reading, without diagnosis of hypertension] Onset: 07-22-2024 09-19-2021 Episodic Comment on above: Problem List clean-u p per request of Phys. EHR Cmte Other circulatory disease (3 sources) Elevated blood-pressure reading, without diagnosis of hypertension; Translations: [Elevated blood pressure reading without diagnosis of hypertension] Onset: 07-22-2024 Episodic Other circulatory disease (20 sources) Elevated blood-pressure reading without diagnosis of hypertension; Translations: [Elevated blood-pressure reading, without diagnosis of hypertension] Onset: 03-24-2024 07-22-2024 Episodic Other connective tissue disease (20 sources) History of lumbar fusion; Translations: [Arthrodesis status] Onset: 08-24-2023 Episodic Other connective tissue disease (2 sources) Arthrodesis status; Translations: [S/P lumbar fusion] Onset: 11-01-2021 Resolved: 11-01-2021 Episodic Other connective tissue disease (1 source) Muscle pain; Translations: [Myalgia, unspecified site] 10-18-2023 Episodic Other diseases of veins and lymphatics (20 sources) Peripheral venous insufficiency; Translations: [Venous insufficiency (chronic) (peripheral)] Onset: 01-04-2023 01-04-2023 Episodic Other gastrointestinal disorders (15 sources) Dysphagia; Translations: [Dysphagia, unspecified] Onset: 01-04-2023 01-04-2023 Episodic Other non-traumatic joint disorders (1 source) Pain in unspecified joint Onset: 04-11-2022 Resolved: 04-11-2022 Episodic Other non-traumatic joint disorders (5 sources) Pain in right shoulder; Translations: [Chronic right shoulder pain] Onset: 03-08-2023 Episodic Other non-traumatic joint disorders (1 source) Pain in left shoulder; Translations: [Chronic left shoulder pain] Onset: 09-03-2024 Episodic Screening and history of mental health and substance abuse codes (20 sources) Personal history of nicotine dependence; Translations: [Ex-smoker] Onset: 05-25-2022 07-31-2023 Episodic Spondylosis; intervertebral disc disorders; other back problems (20 sources) Lumbar spine ankylosis; Translations: [Fusion of spine, lumbar region] Onset: 07-28-2021 Resolved: 04-11-2022 09-21-2021 Episodic Comment on above: Problem List clean-u p per request of Phys. EHR Cmte Unclassified (8 sources) Drug therapy finding; Translations: [Corticosteroid use] 09-19-2021 Comment on above: Problem List clean-u p per request of Phys. EHR Cmte Results Test Name Value Interpretation Reference Range [facility] Nurse Visit ([facility]LD) ----- TYLER TORRES ([id number]) 1945 M Date Time Provider Department 12/30/24 10:00 AM BOAZ WHITE During your visit today, we recorded the following information about you: Boaz White RN 12/30/2024 10:29 AM Signed ORTH CARE COORDINATION POST OPERATIVE NURSE VISIT Patient has been identified by name and date of : Yes, Patient is accompanied by: family Surgery: Right reverse Total Shoulder Arthroplasty 84477, biceps tenodesis 66301 Date of Surgery: 12/16/2024 Activity? Patient be [...] follow up for [address] Jacobsen scheduled. Sling adjusted Boaz White, RN Boaz White, ALIYAH 12/30/2024 10:11 AM Signed follow up in [address] Jacobsen ok to leave incision open to air, no lotions, ointments. Ok to cover with band aid/dry dressing if needed. Call if any redness, swelling, drainage. 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 - docusate sodium (COLACE) 100 mg capsule Take 1 capsule by mouth two times a day for 14 days. - acetaminophen (TYLENOL EXTRA STRENGTH) 500 mg tablet Take 2 tablets by mouth every 6 hours as needed for pain. - finasteride (PROSCAR) 5 mg tablet Take 5 mg by mouth once daily. - Fluorouracil (EFUDEX) 5 % cream Apply to affected area two times a day. - rosuvastatin (CRESTOR) 20 mg tablet Take 20 mg by mouth every morning. - lisinopril (ZESTRIL) 10 mg tablet Take 10 mg by mouth every morning. - cyanocobalamin (VITAMIN B-12) 1,000 mcg tab Take 1,000 mcg by mouth once daily. - esomeprazole (NEXIUM) 40 mg capsule - DULoxetine (CYMBALTA) 30 mg capsule Take 30 mg by mouth. - Melatonin 5 mg cap Take 5 mg by mouth. - metFORMIN (GLUCOPHAGE) 500 mg tablet Take 500 mg by mouth. - tamsulosin (FLOMAX) 0.4 mg Take 0.4 mg by mouth. Problem List As Of Date 12/30/2024 Noted Resolved Chronic right shoulder pain [M25.511, G89.29] 03/13/2023 Type 2 diabetes mellitus without complication, *07/31/2023 Former smoker [Z87.891] 07/31/2023 Chronic obstructive pulmonary disease (HCC) [J4*07/31/2023 Lumbar stenosis with neurogenic claudication [M*08/24/2023 Status post lumbar spinal fusion [Z98.1] 08/24/2023 Calculus of kidney [N20.0] 11/03/2021 Elevated BP without diagnosis of hypertension [*03/24/2024 Finding of above normal blood pressure [R03.0] 07/22/2024 Gastroesophageal reflux disease without esophag*09/15/2020 Diabetes mellitus (HCC) [E11.9] 09/15/2020 Mixed hyperlipidemia [E78.2] 09/15/2020 Obstructive sleep apnea syndrome [G47.33] 09/15/2020 Peripheral venous insufficiency [I87.2] 01/04/2023 CVA (cerebral vascular accident) (HCC) [I63.9] 07/22/2024 Carotid stenosis [I65.29] 07/22/2024 Mitral valve insufficiency [I34.0] 12/04/2024 Aortic valve sclerosis [I35.8] 12/04/2024 S/P reverse total shoulder arthroplasty, right *12/16/2024 Benign prostatic hyperplasia with weak urinary *12/16/2024 Primary hypertension [I10] 12/16/2024 Other instructions from your clinician: follow up in [address] Augie morin to leave incision open to air, no lotions, ointments. Ok to cover with band aid/dry dressing if needed. Call if any redness, swelling, drainage. [phone] Ok to shower in 1-2 days but no submerging in pool, hot tub, etc - pat incision dry after - do no (more content not included)... Normal [facility] Basic metabolic 2000 panelon 12-17-2024 Anion gap [Moles/Vol] 10 mmol/L Normal 8-15 [facility] Comment on above: Order Comment: Speci men Type: BLOOD SPECIMEN Ordering Facility: [facility] Address: [address] [place] [address] Performed By: #### 2 4321-2 #### [facility] CLIA [id number] [address] [place] [address] [place] Calcium [Mass/Vol] 9.2 mg/dL Normal 8.5-10.2 [facility] Comment on above: Order Comment: Speci men Type: BLOOD SPECIMEN Ordering Facility: [facility] Address: [address] [place] [address] Performed By: #### 2 4321-2 #### [facility] CLIA [id number] [address] [place] [address] [place] Chloride [Moles/Vol] 104 mmol/L Normal 98-107 [facility] Comment on above: Order Comment: Speci men Type: BLOOD SPECIMEN Ordering Facility: [facility] Address: [address] [place] [address] Performed By: #### 2 4321-2 #### [facility] CLIA [id number] [address] [place] [address] [place] CO2 [Moles/Vol] 22 mmol/L Normal 22-30 [facility] Comment on above: Order Comment: Speci men Type: BLOOD SPECIMEN Ordering Facility: [facility] Address: [address] [place] [address] Performed By: #### 2 4321-2 #### [facility] CLIA [id number] [address] [place] [address] [place] Creatinine [Mass/Vol] 0.94 mg/dL Normal 0.73-1.22 [facility] Comment on above: Order Comment: Speci men Type: BLOOD SPECIMEN Ordering Facility: [facility] Address: [address] [place] [address] Performed By: #### 2 4321-2 #### [facility] CLIA [id number] [address] [place] [address] [place] Creatinine and Glomerular filtration rate.predicted panel (S/P/Bld) 82 mL/min/1.73m??? Normal >=60 [facility] Comment on above: Order Comment: Chris barajas Type: BLOOD SPECIMEN Ordering Facility: [facility] Address: [address] [place] [address] Result Comment: Thuy mated Glomerular Filtration Rate (eGFR) is calculated using the 2020 CKD-EPI creatinine equation. This equation utilizes serum creatinine, sex, and age as parameters. The creatinine assay has traceable calibration to isotope dilution-mass spectrometry. Refer to KDIGO guidelines for clinical interpretation. In patients with unstable renal function, e.g. those with acute kidney injury, the eGFR may not accurately reflect actual GFR. Performed By: #### 2 4321-2 #### [facility] CLIA [id number] [address] [place] [address] [place] Glucose [Mass/Vol] 114 mg/dL High 74-99 [facility] Comment on above: Order Comment: Chris barajas Type: BLOOD SPECIMEN Ordering Facility: [facility] Address: [address] [place] [address] Result Comment: The [place] [employer] (ADA) provides guidance for cutoff [...] Standards of Medical Care in Diabetes 2016, [place] [employer]. Diabetes Care. 2016.39(Suppl 1). Performed By: #### 2 4321-2 #### [facility] CLIA [id number] [address] [place], [place] [id number] [place] Potassium [Moles/Vol] 4.1 mmol/L Normal 3.7-5.1 [facility] Comment on above: Order Comment: Chris barajas Type: BLOOD SPECIMEN Ordering Facility: [facility] Address: [address] [place] [address] Performed By: #### 2 4321-2 #### [facility] CLIA [id number] [address] [place] [address] [place] Sodium [Moles/Vol] 136 mmol/L Normal 136-144 [facility] Comment on above: Order Comment: Chris barajas Type: BLOOD SPECIMEN Ordering Facility: [facility] Address: [address] [place] [address] Performed By: #### 2 4321-2 #### [facility] CLIA [id number] [address] [place] [address] [place] Urea nitrogen [Mass/Vol] 13 mg/dL Normal 9-24 [facility] Comment on above: Order Comment: Chris men Type: BLOOD SPECIMEN Ordering Facility: [facility] Address: [address] [place] [address] Performed By: #### 2 4321-2 #### [facility] CLIA [id number] [address] [place] [address] OF [facility] CNDSon 12-17-2024 CNDS HNO ID: [id number] Author: MARK ARREAGA PA-C Service: Orthopaedic Surgery Author Type: Physician C Application Developer Type: Discharge Summary Filed: 12/17/2024 11:55 Note Text: ----- Attestation signed by Hung Jacobsen MD at 12/17/2024 12:51 PM Hung Jacobsen MD ----- ORTHOPAEDIC SURGERY DISCHARGE SUMMARY ADMISSION DATE: 12/18/24 DISCHARGE DATE: 12/17/24 Attending Physician: Hung Jacobsen MD Reason for Hospitalization: Postoperative care following total shoulder arthroplasty Admitting Diagnosis: Advanced Degenerative Joint Disease of Shoulder Discharge Diagnosis: Advanced Degenerative Joint Disease of Shoulder Additional Diagnoses: ACTIVE PROBLEM LIST Chronic Right Shoulder Pain Type 2 Diabetes Mellitus Without Complication, Without Long-Term Current Use of Insulin ([facility]) Former Smoker Chronic Obstructive Pulmonary Disease ([facility]) Lumbar Stenosis With Neurogenic Claudication Status Post Lumbar Spinal Fusion Calculus of Kidney Elevated Bp Without Diagnosis of Hypertension Finding of Above Normal Blood Pressure Gastroesophageal Reflux Disease Without Esophagitis Diabetes Mellitus ([facility]) Mixed Hyperlipidemia Obstructive Sleep Apnea Syndrome Peripheral Venous Insufficiency Cva (Cerebral Vascular Accident) ([facility]) Carotid Stenosis Mitral Valve Insufficiency Aortic Valve Sclerosis S/P Reverse Total Shoulder Arthroplasty, Right Benign Prostatic Hyperplasia With Weak Urinary Stream Primary Hypertension Surgeries During Hospitalization: Procedure(s) (LRB): REVERSE TOTAL SHOULDER ARTHROPLASTY (Right) Procedures During Hospitalization: Anesthesia IV placement Consultations: Physical Therapy Occupational Therapy Case Management Hospital Course: The patient is a 79 year old male who has been followed by Hung Penn MD in clinic for shoulder pain. It was determined he would benefit from surgery. The procedure, its risks, benefits, and potential complications were discussed in detail with the patient prior to surgery. Understanding of all topics was conveyed by the patient, and consent was given for surgery. The patient was electively admitted to the [facility]. Surgery was scheduled and on 12/16/2024 he underwent a Procedure(s) (LRB): REVERSE TOTAL SHOULDER ARTHROPLASTY (Right) with Anesthesia. The procedure was tolerated well and he was sent to the post operative recovery room in stable condition, where he also did well. He was subsequently sent to his hospital room for postoperative management. Once on the floor his postoperative course was unremarkable and he did well. His diet was advanced which he tolerated. His pain was well controlled with a peripheral nerve catheter and oral medication prior to discharge. He worked with Physical and Occupational Therapy who recommended he be discharged. His dressing remained clean dry and intact throughout his stay. He remained afebrile with stable vital signs throughout his stay. He was stable for discharge. Complete and comprehensive discharge instructions were provided to the patient as well as necessary prescriptions. The patient had no further questions and was advised to call with any questions, concerns, or problems. Patient was hemodynamically stable postoperatively and postoperative labs were reviewed. Discharge Antibiotics: Prior to surgery the patient was treated with antibiotics and continued with antibiotics 24 hours postoperatively Transfers: PACU and then to the hospital surgical floor when PACU criteria was met. DVT Prophylaxis: See discharge medications section Pain Control: Oral narcotics Complications: Continued throughout the hospital course without complications. Patient Condition at Discharge: Stable Discharge Disposition: Home with home health care Other Information: N/A Discharge Activity/Weight Bearing Status: Non weight bearing, right upper extremity in ultrasling The patient was instructed to follow-up as per preoperative plan. Future Appointments Date Time Provider Department Center 12/30/2024 10:00 AM Boaz White, RN ORTHLD [facility] 12/30/2024 10:00 AM XR [place] [facility] 01/28/2025 10:15 AM XR [facility]TH[facility] Rej 01/28/2025 10:45 AM Hung Jacobsen MD [facility] Rej Discharge Medications: Medication List START taking these medications oxyCODONE IR 5 mg immediate release tablet Commonly known as: ROXICODONE Take 1 tablet by mouth every 6 hours as needed for pain for up to 7 days. Replaces: oxyCODONE ir 5 mg capsule CHANGE how you take these medications acetaminophen 500 mg tablet Commonly known as: TYLENOL EXTRA STRENGTH Take 2 tablets by mouth every 6 hours as needed for pain. What changed: additional instructions aspirin, enteric coated 81 mg EC tablet Commonly known as: ECOTRIN LOW STRENGTH Take 1 table (more content not included)... [facility] CONSULT PROGon 12-17-2024 CONSULT PROG HNO ID: [id number] Author: EDUARDO KHALIL MD Service: General Internal Medicine Author Type: Physician Type: Consult Progress Note Filed: 12/17/2024 19:17 Note Text: CONSULT NOTE - INTERNAL MEDICINE PATIENT NAME: Tyler Torres SERVICE DATE: 12/17/2024 SERVICE TIME: 12:07 PM ADMITTING PHYSICIAN: Hung Jacobsen MD SUBJECTIVE: Patient denies any CP, SOB, Dizziness, Palpitations, Abdominal Pain, Nausea or Vomiting. He is passing flatus, denies any urinary problems His pain is controlled well OBJECTIVE PHYSICAL EXAM: Patient Vitals for the past 24 hrs: BP Temp Temp src Pulse Resp SpO2 Height Weight 12/17/24 0738 115/65 36.7 ?C (98.1 ?F) Oral 75 17 94 % -- -- 12/17/24 0425 -- -- -- 71 -- 94 % -- -- 12/17/24 0423 119/57 37.1 ?C (98.8 ?F) Oral -- 18 -- -- -- 12/16/242318 -- -- -- -- -- 94 % -- -- 12/16/24 2318 103/57 37.6 ?C (99.7 ?F) Oral 89 18 90 % -- -- 12/16/242309 -- -- -- -- 16 -- -- -- 12/16/242024 128/81 37.1 ?C (98.8 ?F) Oral 105 18 92 % -- -- 12/16/24 1856 121/70 -- -- 107 -- 93 % -- -- 12/16/24 1658 -- -- -- 112 -- -- -- -- 12/16/24 1653 -- -- -- 108 -- -- -- -- 12/16/24 1645 111/69 36.9 ?C (98.4 ?F) Oral (!) 125 -- 92 % -- -- 12/16/24 1419 -- -- -- 91 -- 94 % -- -- 12/16/24 1419 112/65 -- Oral 94 -- 91 % -- -- 12/16/24 1406 -- -- -- -- -- -- 172.7 cm (5' 7.99 ) 78 kg (171 lb 15.3 oz) 12/16/24 1345 114/73 -- -- 85 -- 95 % -- -- 12/16/24 1330 127/79 -- -- 110 -- 99 % -- -- 12/16/24 1314 136/87 36.2 ?C (97.2 ?F) Temporal 115 18 98 % -- -- Body mass index is 26.15 kg/m?. GENERAL: no distress LUNGS: Lungs clear to auscultation, Fair air entry. CARDIAC: normal S1 and S2; no rubs, murmurs, or gallops ABDOMEN: Abdomen soft, non-tender. BS normal. EXTREMETIES: Normal ankle DF Bilateral; normal temperature to touch right hand, moving all fingers. Problem List ACTIVE PROBLEM LIST Chronic Right Shoulder Pain Type 2 Diabetes Mellitus Without Complication, Without Long-Term Current Use of Insulin ([facility]) Former Smoker Chronic Obstructive Pulmonary Disease (Hcc) Lumbar Stenosis With Neurogenic Claudication Status Post Lumbar Spinal Fusion Calculus of Kidney Elevated Bp Without Diagnosis of Hypertension Finding of Above Normal Blood Pressure Gastroesophageal Reflux Disease Without Esophagitis Diabetes Mellitus (Hcc) Mixed Hyperlipidemia Obstructive Sleep Apnea Syndrome Peripheral Venous Insufficiency Cva (Cerebral Vascular Accident) ([facility]) Carotid Stenosis Mitral Valve Insufficiency Aortic Valve Sclerosis S/P Reverse Total Shoulder Arthroplasty, Right Benign Prostatic Hyperplasia With Weak Urinary Stream Primary Hypertension DATA: Diagnostic tests reviewed for today's visit: Most recent labs: Recent Labs 12/17/24 0613 NA 136 K 4.1 CHLOR 104 CO2 22 BUN 13 CREAT 0.94 GLUC 114* CA 9.2 Assessment/Plan: Principal Problem: S/P reverse total shoulder arthroplasty, right (POA: No) Assessment AND Plan: He has been doing well, feels comfortable with plans for discharge to home today. Active Problems: Type 2 diabetes mellitus without complication, without long-term current use of insulin ([facility]) (POA: Yes) Assessment AND Plan: He will resume prehospital treatment Chronic obstructive pulmonary disease (HCC) (POA: Yes) Assessment AND Plan: Remains stable without any new symptoms since admission. Gastroesophageal reflux disease without esophagitis (POA: Yes) Assessment AND Plan: Doing well, no new symptoms. Benign prostatic hyperplasia with weak urinary stream (POA: Yes) Assessment AND Plan: Has been able to urinate without any new concerns, feels urinary flow is at baseline Primary hypertension (POA: Yes) Assessment AND Plan: Continue current management, blood pressure is stable. Resolved Problems: * No resolved hospital problems. * SIGNATURE: Eduardo Khalil MD DATE: December 17, 2024 TIME: 12:07 PM This note was partially created using voice recognition software and is inherently subject to errors including those of syntax and sound-alike substitutions which may escape proofreading. In such instances, original meaning may be extrapolated by contextual derivation [facility] THERAPY NTon 12-17-2024 THERAPY NT HNO ID: [id number] Author: FORTINO STEWARD RRT Service: Respiratory Therapy Author Type: Registered Resp Therapist Type: Therapy (PT/OT/Speech/Resp) Filed: 12/17/2024 12:01 Note Text: RESPIRATORY THERAPY PROGRESS NOTE SERVICE DATE: 12/17/2024 SERVICE TIME: 12/17/24 1200 RT Protocol Assessment $Respiratory Therapy Consult $Performed-COPD Consult COPD Consult Assessment COPD [facility] Ordered No (Notify Attending Physician) Short Acting Beta Agonists used in Hospital None Patient has participated in Pulmonary Rehab Never Follow Up Visit Instruction Importance of follow-up visit addressed (phone number and address given) Education Topic COPD Education SIGNATURE: Fortino Steward [employer] PATIENT NAME: Tyler Torres DATE: December 17, 2024 TIME: 12:01 PM PAGER/CONTACT #: [facility] THERAPY NT HNO ID: [id number] Author: ANDRA MOYER, PT, DPT Service: Physical Therapy Author Type: Physical Therapist Type: Therapy (PT/OT/Speech/Resp) Filed: 12/17/2024 10:32 Note Text: Physical Therapy Evaluation Summary SERVICE DATE: 12/17/2024 SERVICE TIME: 1002 to 1018 ROOM: [place] [address] PT 6 Clicks Score: 23 Total Joint Replacement Discharge Readiness: Not Applicable DISCHARGE RECOMMENDATIONS Home-Cleared from PT standpoint for D/C home today Anticipated Discharge Needs: Physical Assist at Home Physical Assist at Home for: Transportation, Self Care Recommended Discharge Equipment: No equipment needs anticipated ASSESSMENT Response to Therapy Interventions: Good Participation in Activities, Improved Tolerance for Activity, On-Track to Achieve Discharge Goals, Notable Progression with Functional Activities/Skills, Pain Pt pleasant and cooperative. Hx of L TSA. Reviewed post op precautions, proper alignment of sling and safe mobility. Pt able to ambulate in hallway with quad cane and SBA. Pt with no stairs to negotiate at home. Addressed pt questions/concerns from PT perspective. Cleared from PT standpoint for D/C home today with Home PT and family assist. PRECAUTIONS Weight Bearing Restrictions Patient be nonweightbearing the right upper extremity. Okay for hand, wrist, range of motion. Pendulums at 2 weeks. Okay for supine passive forward elevation after 2 weeks Right Upper Extremity Weight Bearing Status: NWB CURRENT HOSPITAL COURSE s/p Right reverse Total Shoulder Arthroplasty Relevant Past Medical History: DM, COPD, lumbar stenosis, L TSR, spine sx, CVA, carotid stenosis, former smoker HOME LIVING Patient Lives With: Significant Other Assistance Available: 24-Hour Entry To Home: No Stairs Number Of Stairs To Bed/Bath: 0 Tub/Shower Type: walk-in shower Equipment Owned: Cane, Walker- Wheeled, Grab Bars- Shower, Shower Chair, Auto Tire Recapper, Sock Aid, Long Handled Shoe Horn PRIOR FUNCTIONAL LEVEL Within Functional Limits Independent with ADLs and mobility without AD SUBJECTIVE Pt agreeable to participate and motivated for D/C home today THERAPY DIAGNOSIS Reduced mobility-other, Difficulty walking-musculoskeletal TREATMENT INTERVENTIONS Evaluation Skilled Treatment Time (minutes): 16 TRAINING AND EDUCATION PROVIDED Advanced Balance Activities, Assistive Device Use, Anatomy and Impact on Deficits, Benefits of In-Hospital Mobility, Expected Functional Level, Energy Conservation, Equipment, Falls Prevention, Gait Pattern, Reduction of Deviations, Home Safety, Transfers, Precautions/Restrictions THERAPEUTIC SKILLS USED Activity Dosing, Assessment of Tolerance Including Vitals Response to Activity, Cues for Sequencing/Proper Technique for Activity, Cuing Verbal, Teach-Back for Education FUNCTIONAL STATUS Bed Mobility Transfers Sit To Stand: Supervision Stand To Sit: Supervision Bed to Chair Supervision Bed To Chair Transfer Type: Stepping Bed To Chair Transfer Equipment: Cane Gait Stand By Assistance Gait Device: Cane, Other: See Comment (quad cane) General Deviations/Observations: Regina decreased, UE weight bearing on assistive device excessive, Step length decreased, Arm swing decreased Gait Distance (feet): 110 feet x 1 Stairs Additional Information (NA) GOALS Patient will demonstrate understanding of importance of mobility during hospital stay and resolve all functional needs identified., Patient will demonstrate progress with functional mobility to allow safe discharge to home with available support and/or physical assistance. Rehab Potential: Good Progress Toward Goals: Progressing as expected PLAN PT Frequency: 3 Times Per Week Treatment Interventions: Education, Self Care / Home Management, Energy Conservation Training, Strengthening, Functional Mobility Training, Balance Training, Modalities Plan for Next Visit: Gait Training SIGNATURE: Andra Moyer, PT, DPT PATIENT NAME: Tyler Torres DATE: December 17, 2024 TIME: 10:30 AM [facility] THERAPY NT HNO ID: [id number] Author: ADELAIDE ROBISON OT/L Service: Occupational Therapy Author Type: Occupational Therapist Type: Therapy (PT/OT/Speech/Resp) Filed: 12/17/2024 10:14 Note Text: Occupational Therapy Evaluation Summary SERVICE DATE: 12/17/2024 SERVICE TIME: 924 to 951 ROOM: [id number] 6 Clicks Score: 17 Total Joint Replacement Discharge Readiness: Cleared from Occupational Therapy DISCHARGE RECOMMENDATIONS Home Anticipated Discharge Needs: Physical Assist at Home Physical Assist at Home for: Meals, Laundry, Cleaning, Transportation, Shopping, Safety ASSESSMENT Response to Therapy Interventions: Good Participation in Activities, Requires Additional Time to Complete Activities, Pain, Needs Frequent Redirection or Reinstruction Patient had L TSR in July 2024, states significant other assisted with all ADLs. Recommend 24 hr supservision and assistance at baseline. PRECAUTIONS Weight Bearing Restrictions Patient be nonweightbearing the right upper extremity. Okay for hand, wrist, range of motion. Pendulums at 2 weeks. Okay for supine passive forward elevation after 2 weeks Right Upper Extremity Weight Bearing Status: NWB CURRENT HOSPITAL COURSE s/p Right reverse Total Shoulder Arthroplasty Relevant Past Medical History: DM, COPD, lumbar stenosis, L TSR, spine sx, CVA, carotid stenosis, former smoker HOME LIVING Patient Lives With: Significant Other Assistance Available: 24-Hour Entry To Home: No Stairs Number Of Stairs To Bed/Bath: 0 Tub/Shower Type: walk-in shower Equipment Owned: Cane, Walker- Wheeled, Grab Bars- Shower, Shower Chair, Auto Tire Recapper, Sock Aid, Long Handled Shoe Horn PRIOR FUNCTIONAL LEVEL Within Functional Limits Independent with ADLs and mobility without AD SUBJECTIVE Patient agreeable to OT THERAPY DIAGNOSIS Decreased activities of daily living (ADL), Reduced mobility-other TREATMENT INTERVENTIONS Evaluation, Self Senior Care Management (50222) Timed Code Treatment (minutes): 12 Skilled Treatment Time (minutes): 27 TRAINING AND EDUCATION PROVIDED Activity Adaptation/Compensatory Strategies, Adaptive Equipment/DME, Assistive Device Use, Bed Mobility, Benefits of In-Hospital Mobility, Discharge Planning, Expected Functional Level, Functional Mobility Involving ADLs, Lower Extremity Dressing, Lower Extremity Bathing, Home Set-up/Modifications, Positioning, Precautions/Restrictions, Role of Occupational Therapy, Sling/Brace Management, Transfer - Bed to Chair, Transfer - Sit to Stand, Transfer - Car, Upper Extremity Dressing, Upper Extremity Bathing THERAPEUTIC SKILLS USED Activity Dosing, Cues for Sequencing/Proper Technique for Activity, Cuing Verbal, Physical Assist, Teach-Back for Education, Muscle Activation Facilitation, Movement Facilitation FUNCTIONAL STATUS Activities of Daily Living Assist Level Additional Information Feeding Set Up Grooming Minimal Assistance Bathing Upper Body Minimal Assistance Bathing Lower Body Moderate Assistance Dressing Upper Body Minimal Assistance Dressing Lower Body Moderate Assistance Toileting Minimal Assistance Mobility Assist Level Additional Information Bed Mobility Supine To Sit: Additional Information patient sleeps in recliner Sit to Stand Stand By Assistance Stand to Sit Stand By Assistance Bed to Chair Stand By Assistance Bed To Chair Transfer Type: Stepping Bed To Chair Transfer Equipment: Cane Toilet/Commode Shower Functional Mobility Stand By Assistance Functional Mobility Device: Cane GOALS Patient will demonstrate progress with self-care, cognitive and/or coping needs identified to allow safe discharge to home with available support and/or physical assistance. Progress Toward Goals: Progressing as expected Rehab Potential: Good PLAN OT Frequency: PRN (As Needed) Treatment Interventions: Self Care/Home Management, Education, Functional Mobility Training, Strengthening SIGNATURE: Adelaide Robison OT/L PATIENT NAME: Tyler Torres DATE: December 17, 2024 TIME: 10:13 AM [facility] 12-16-2024 ALLIED HEALTH HNO ID: [id number] Author: JOYCE ESCUDERO RT(R) Service: Radiology Author Type: Technologist Type: Allied Health Filed: 12/16/2024 14:34 Note Text: Radiology Service Progress Note PATIENT NAME: Tyler Torres DATE OF SERVICE: December 16, 2024 TIME: 2:34 PM PATIENT IDENTITY VERIFICATION COMPLETED USING TWO (2) IDENTIFIERS: Name and Date of confirmed by patient verbally and Name and Date of confirmed by identification band. FALL SCREENING: Has the patient had 2 falls in the last year or 1 fall with injury or currently using an Ambulatory Assistive Device (Walker, Cane, Wheelchair, Crutches, etc.)? Inpatient: Screened on floor PATIENT GENDER DATA: Assigned male at PATIENT RELEVANT IMPLANT DATA REVIEWED: Not Applicable PATIENT PRESENTS WITH AN IMPLANTABLE OR ATTACHED TALENT SCOUT: No RADIOLOGY DEPARTMENT: General X-ray: Exam(s) Completed: Upper Extremity X-Ray(s): Shoulder, AP / TRUE AP right PERIPHERAL IV DATA: Not applicable SIGNED BY: RT Marlow Cela(R) December 16, 2024 2:34 PM [facility] ANES POSTPROC EVALon 025 ANES POSTPROC EVAL HNO ID: [id number] Author: DINAH GILL MD Service: Anesthesiology Author Type: Anesthesiologist Type: Anesthesia Postprocedure Evaluation Filed: 12/16/2024 14:57 Note Text: POST ANESTHESIA EVALUATION NOTE : 1945 Procedure Summary Date: 12/16/24 Room / Location: [place] [address] / OR Anesthesia Start: 925 Anesthesia Stop: 1318 Procedure: REVERSE TOTAL SHOULDER ARTHROPLASTY (Right: Shoulder) Diagnosis: Chronic right shoulder pain (Chronic right shoulder pain [M25.511, G89.29]) Surgeons: Hung Jacobsen MD Responsible Provider: Dinah Gill MD Anesthesia Type: general ASA Status: 3 Anesthesia Type: general Airway Type: ETT Last Vitals Vitals Value Taken Time BP 112/65 12/16/24 1419 Temp 36.2 ?C (97.2 ?F) 12/16/24 1314 HR SpO2 90 12/16/24 1401 Resp 18 12/16/24 1314 SpO2 94 % 12/16/24 1419 Vitals shown include unfiled device data. Post Anesthesia Patient Status Patient Evaluation: bedside. Anticipated Disposition: inpatient floor planned admission. Neurological Status: aware and responsive. Pulmonary Status: breathing comfortably on room air Airway Control: returned to baseline unsupported. Cardiovascular Status: stable. Pain Management: clinically adequate Postoperative Hydration: acceptable. Intraoperative Events: no significant anesthesia events Post Operative Nausea/Vomiting Status: no significant post operative nausea or vomiting Recommendation: continue current plan of care. Anesthesia Observations No Documentation SIGNATURE: Dinah Gill MD PATIENT NAME: Tyler Torres DATE: December 16, 2024 TIME: 2:57 PM CSN: [id number] [facility] ANES PRE-OPon 12-16-2024 ANES PRE-OP HNO ID: [id number] Author: DINAH GILL MD Service: Anesthesiology Author Type: Anesthesiologist Type: Anesthesia Preprocedure Evaluation Filed: 12/16/2024 07:32 Note Text: ANESTHESIOLOGY DAY OF SURGERY NOTE : 1945 Procedure Information Date/Time: 12/16/24 0815 Procedure: ARTHROPLASTY REPLACE JOINT TOTAL SHOULDER (Right: Shoulder) Location: [place] [address] / OR Surgeons: Hung Jacobsen MD Estimated body mass index is 26.15 kg/m? as calculated from the following: Height as of 12/04/24: 172.7 cm (5' 8 ). Weight as of 12/04/24: 78 kg (171 lb 15.3 oz). Most recent hematocrit and potassium results: Hematocrit 38.5 12/04/2024 Potassium 4.6 12/04/2024 Relevant Problems ANESTHESIA (+) Obstructive sleep apnea syndrome CARDIO (+) Carotid stenosis (+) Mitral valve insufficiency (+) Peripheral venous insufficiency ENDO (+) Type 2 diabetes mellitus without complication, without long-term current use of insulin (HCC) GI (+) Gastroesophageal reflux disease without esophagitis -RENAL (+) Calculus of kidney NEURO-PSYCH (+) CVA (cerebral vascular accident) (HCC) PULMONARY (+) Chronic obstructive pulmonary disease (HCC) (+) Obstructive sleep apnea syndrome I - PHYSICAL EVALUATION AIRWAY Patient intubated: No. Tracheostomy tube not present Mallampati: III. TM distance: >3 FB. Neck ROM: full ROM without neurological symptoms. Mouth opening: adequate. Short neck: no. Thick neck: no Microretrognathia/Microna gthia/Recessed Chin: No DENTAL Dentures, upper: complete. Dentures, lower: complete. Additional exam findings: no II - ANESTHESIA PLAN ASA Score: 3 Anesthetic Plan: general Airway type: ETT The patient is not a current smoker. NPO Status: adequate Beta Audrey Monitoring Plan Monitoring plan: standard ASA. Post Procedure Analgesic Plan Postoperative analgesic plan: parenteral or oral opioids, peripheral nerve block and per surgical service. Informed Consent Anesthetic risks, benefits, alternatives, personnel and consent discussed: yes. Patient / Responsible Constitution Party agrees to proceed: yes Patient / Surrogate agrees to blood products: blood products not planned Significant changes in the patient condition since the History and Physical, not otherwise documented in primary service progress note: no. Potential Anesthesia issues that may suggest increased risk of complications or contraindication to planned procedure: none. Vitals Value Taken Time BP 118/76 12/16/24 0649 Pulse 69 12/16/24 0649 Resp 18 12/16/24 0649 Temp 36.8 ?C (98.2 ?F) 12/16/24 0649 SpO2 96 % 12/16/24 0649 Facility-Administered Medications as of 12/16/2024 Medication Dose Route Frequency - lidocaine (PF) 10 mg/mL (1 %) 1-2 mg injection (XYLOCAINE) 0.1-0.2 mL INTRADERMAL PRN - lactated ringers iv infusion 5-30 mL/hr INTRAVENOUS CONTINUOUS - NaCl 0.9% iv flush bag 20 mL INTRAVENOUS PRN - ceFAZolin iv piggyback 2 g in D5W (iso-osmotic) 100 mL (ANCEF) 2 g INTRAVENOUS Pre-Op Once - tranexamic acid (CYKLOKAPRON) in NaCl 0.7% 1,000 mg 100 mL 1,000 mg INTRAVENOUS ONCE - tranexamic acid (CYKLOKAPRON) in NaCl 0.7% 1,000 mg 100 mL 1,000 mg INTRAVENOUS Fur Blower to OR Outpatient Medications as of 12/16/2024 Medication Sig - rosuvastatin (CRESTOR) 20 mg tablet Take 20 mg by mouth every morning. - lisinopril (ZESTRIL) 10 mg tablet Take 10 mg by mouth every morning. - cyanocobalamin (VITAMIN B-12) 1,000 mcg tab Take 1,000 mcg by mouth once daily. - esomeprazole (NEXIUM) 40 mg capsule - DULoxetine (CYMBALTA) 30 mg capsule Take 30 mg by mouth. - metFORMIN (GLUCOPHAGE) 500 mg tablet Take 500 mg by mouth. - tamsulosin (FLOMAX) 0.4 mg Take 0.4 mg by mouth. - aspirin, enteric coated (ECOTRIN LOW STRENGTH) 81 mg EC tablet Take 1 tablet by mouth two times a day for 14 days. - docusate sodium (COLACE) 100 mg capsule Take 1 capsule by mouth two times a day for 14 days. - oxyCODONE IR (ROXICODONE) 5 mg immediate release tablet Take 1 tablet by mouth every 6 hours as needed for pain for up to 7 days. - acetaminophen (TYLENOL EXTRA STRENGTH) 500 mg tablet Take 2 tablets by mouth every 6 hours as needed for pain. - Melatonin 5 mg cap Take 5 mg by mouth. I have interviewed and examined the patient. I have reviewed the medical record and/or the pre-anesthesia evaluation, pertinent labs, and test results. This contains updated information obtained within 48 hours of Surgery/Procedure. SIGNATURE: Dinah Gill MD PATIENT NAME: Tyler Torres DATE: December 16, 2024 TIME: 7:29 AM CSN: [id number] [facility] BRIEF OP NOTon 12-16-2024 BRIEF OP NOT HNO ID: [id number] Author: CYRUS COBIAN DO Service: Orthopaedic Surgery Author Type: Resident Type: Brief Op Note Filed: 12/16/2024 13:05 Note Text: ORTHOPAEDIC SURGERY BRIEF OPERATIVE NOTE LOG ID: [id number] Surgery/Procedure Date: 12/16/2024 Incision/Procedure Start Time: 10:31 AM Incision Close/Procedure End Time: 12:56 PM Surgeon(s)/Proceduralist( s) and C Application Developer(s): Surgeons and Role: * Hung Jacobsen MD - Primary * Cyrus Cobian DO - Resident - Assisting Procedure(s): Procedure(s) (LRB): REVERSE TOTAL SHOULDER ARTHROPLASTY (Right) Anesthesia: General Estimated Blood Loss: 300 mls Specimens: ID Type Source Tests Collected by Time Destination A : Tissue Humerus, Head, Right SURGICAL PATHOLOGY Hung Jacobsen MD 12/16/2024 12:26 PM Complications: None Pre-Op/Pre-Procedure Diagnosis: End stage right glenohumeral arthritis Post-Op/Post-Procedure Diagnosis: Same Post-op Plan: 1V AP right shoulder xray Weight Bearing: NWB RUE ROM: immobilized in sling, okay for ROM to elbow, wrist, and hand, OK for forward elevation to 120 degrees, see DCI Haro: per nursing protocol Dressing: glue with Tegaderm DVT Prophylaxis: ASA 81 mg BID x14d Antibiotics: perioperative ancef x24h Pain Control: multimodal, take as prescribed Follow up with Dr. Jacobsen's nurse Boaz on 12/30 Admit to ortho, anticipated discharge to home POD1 Plan of care discussed with: Provider, RN, Patient. Patient was accompanied to the next level of care by a licensed practitioner from the surgical team pending completion of this brief op note (or operative note) SIGNATURE: Cyrus Cobian DO PATIENT NAME: Tyler Torres DATE: 12/16/2024 TIME: 1:03 PM PAGER/CONTACT #: [phone] [facility] CONSULTon 12-16-2024 CONSULT HNO ID: [id number] Author: EDUARDO KHALIL MD Service: General Internal Medicine Author Type: Physician Type: Consults Filed: 12/16/2024 19:26 Note Text: CONSULT NOTE - INTERNAL MEDICINE PATIENT NAME: Tyler Torres MRN: @MRN SERVICE DATE: 12/16/2024 SERVICE TIME: 7:21 PM ADMITTING PHYSICIAN: Hung Jacobsen MD CC: Post operative medical management; pt is s/p right reverse TSR Consultation requested by Dr. Hung Jacobsen for an opinion regarding post operative medical management. My final recommendations will be communicated back to the requesting physician by way of shared Medical record or letter to requesting physician via US mail. HPI: His pain is controlled well; He denies any postop nausea or vomiting. He has been able to void after his surgery, his urinary flow is at baseline. He denies any recent fever or chills, skin infections or any upper respiratory infections. Mentions that he had a obstructive nephrolithiasis, which was blasted about 2 months ago. Has been doing well since then. PAST MEDICAL HISTORY Diagnosis Date COPD (chronic obstructive pulmonary disease) (HCC) Diabetes mellitus (HCC) GERD (gastroesophageal reflux disease) HLD (hyperlipidemia) HTN (hypertension) Kidney stone ROMEO (obstructive sleep apnea) PAST SURGICAL HISTORY Procedure Laterality Date ARTHROPLASTY TOTAL SHOULDER Left 07/2024 COLONOSCOPY SCREENING PAST SURGICAL HISTORY OF 09/14/2020 lumbar surgery x2 PAST SURGICAL HISTORY OF Right cyst removed from back by right shoulder PAST SURGICAL HISTORY OF testicle removed Current Facility-Administered Medications Medication Dose Route Frequency [START ON 12/17/2024] lisinopril 10 mg tab(s) (ZESTRIL) 10 mg ORAL DAILY [START ON 12/17/2024] rosuvastatin 20 mg tab(s) (CRESTOR) 20 mg ORAL DAILY [START ON 12/17/2024] DULoxetine 30 mg cap(s) (CYMBALTA) 30 mg ORAL DAILY finasteride 5 mg tab(s) (PROSCAR) 5 mg ORAL DAILY [START ON 12/17/2024] tamsulosin 0.4 mg cap(s) (FLOMAX) 0.4 mg ORAL DAILY melatonin 6 mg tab(s) 6 mg ORAL AT BEDTIME [START ON 12/17/2024] aspirin, enteric coated 81 mg tab(s) 81 mg ORAL BID NaCl 0.9% iv infusion 75 mL/hr INTRAVENOUS CONTINUOUS ceFAZolin iv piggyback 2 g in D5W (iso-osmotic) 100 mL (ANCEF) 2 g INTRAVENOUS q 8 HR acetaminophen 1,000 mg tab(s) (TYLENOL) 1,000 mg ORAL q 8 H keTORolac 15 mg injection (Toradol) 15 mg INTRAVENOUS q 6 H oxyCODONE IR 5 mg tab(s) (ROXICODONE) 5 mg ORAL q 6 H PRN ondansetron 4 mg tab(s) (ZOFRAN) 4 mg ORAL q 6 H PRN Or ondansetron (PF) 4 mg injection (ZOFRAN) 4 mg INTRAVENOUS q 6 H PRN [START ON 12/17/2024] magnesium hydroxide 400 mg/5 mL 30 mL (MOM) 30 mL ORAL DAILY PRN [START ON 12/18/2024] bisacodyl EC 10 mg tab(s) (DULCOLAX) 10 mg ORAL DAILY aluminum-magnesium hydroxide-simethicone 200-200-20 mg/5 mL 30 mL 30 mL ORAL q 2 H PRN [START ON 12/17/2024] ascorbic acid (vitamin C) 500 mg tab(s) (VITAMIN C) 500 mg ORAL BID w MEALS [START ON 12/17/2024] docusate sodium 100 mg cap(s) (COLACE) 100 mg ORAL BID senna 17.2 mg tab(s) (SENOKOT) 17.2 mg ORAL AT BEDTIME dextrose 40 % 15 g 15 g ORAL PRN Or glucagon 1 mg injection 1 mg INTRAMUSCULAR PRN Or dextrose 10% iv bolus 12.5 g INTRAVENOUS PRN insulin regular human injection (short acting) SUBCUTANEOUS q 6 H Social History Tobacco Use Smoking status: Former Current packs/day: 0.00 Average packs/day: 0.5 packs/day for 15.0 years (7.5 ttl pk-yrs) Types: Cigarettes Start date: 1977 Quit date: 1992 Years since quittin.3 Smokeless tobacco: Never Tobacco comments: Quit years ago Substance Use Topics Alcohol use: Yes Alcohol/week: 2.0 standard drinks of alcohol Types: 2 Cans of Beer (12oz) per week Comment: 1 beer 2-3 days a week Drug use: Never ALLERGIES Allergen Reactions Simvastatin Unknown No family history on file. ROS: Patient denies any recent ENT or eye complaints, CP, palpitation, cough, wheeze, dizziness, dyspnea, abdominal pain, nausea, vomiting, urinary or bowel changes, rash or increased ankle swelling. About a year ago he had an episode of diplopia, had follow-up workup done with neurology including a 30-day event monitor placement. Was advised to continue with aspirin only. As per patient's symptoms have not recurred since then. Rest of the review of system is negative except as noted. OBJECTIVE PHYSICAL EXAM: Patient Vitals for the past 24 hrs: BP Temp Temp src Pulse Resp SpO2 Height Weight 12/16/24 1856 121/70 -- -- 107 -- 93 % -- -- 12/16/24 1658 -- -- -- 112 -- -- -- -- 12/16/24 1653 -- -- -- 108 -- -- -- -- 12/16/24 1645 111/69 36.9 ?C (98.4 ?F) Oral (!) 125 -- 92 % -- -- 12/16/24 1419 -- -- -- 91 -- 94 % -- -- 12/16/24 1419 112/65 -- Oral 94 -- 91 % -- -- 12/16/24 1406 -- -- -- -- -- -- 172.7 cm (5' 7.99 ) 78 kg (171 lb 15.3 oz) 12/16/24 1345 114/73 -- -- 85 -- 95 % -- -- 12/16/24 1330 127/79 -- -- 110 -- 99 % -- -- 12/16/24 1314 136/87 36.2 ?C (97.2 ?F) Temporal 115 18 9 (more content not included)... Normal [facility] HISTORY PHYSICALon HISTORY PHYSICAL HNO ID: [id number] Author: CYRUS COBIAN DO Service: Orthopaedic Surgery Author Type: Resident Type: H&P Filed: 12/16/2024 07:10 Note Text: ----- Attestation signed by Hung Jacobsen MD at 12/16/2024 10:30 AM Hung Jacobsen MD ----- UPDATED HISTORY AND PHYSICAL EXAMINATION SERVICE DATE - 12/16/2024 SERVICE TIME - 7:10 AM PHYSICAL EXAM MUST BE COMPLETED ON ADMISSION The History and Physical (completed in the past 30 days) has been reviewed and the patient has been examined. The contents accurately reflect the patient's condition with the following additions or revisions since the HANDP was completed. Examination indicates no changes from PE and ROS completed 12/04. This HANDP can be found in the Electronic Medical Record. Juan R oCbian DO Resident Physician Department of Orthopedic Surgery 12/16/2024 7:10 AM [facility] NURSING PROGon 12-16-2024 NURSING PROG HNO ID: [id number] Author: BELA GUILLAUME RN Service: Nursing Author Type: Registered Nurse Type: Nursing Progress Note Filed: 12/16/2024 15:30 Note Text: Transfer Note: PATIENT NAME: Tyler Torres Patient Location: [address]/[id number] Room: [place] [address] Patient transferred into room/unit [facility] in stable condition. Actions taken: No futher actions taken at this time. Will continue to monitor and check with patient. [facility] OPERATIVE NOon 12-16-2024 OPERATIVE NO HNO ID: [id number] Author: HUNG JACOBSEN MD Service: Orthopaedic Surgery Author Type: Physician Type: Operative Report Filed: 12/16/2024 14:43 Note Text: OPERATIVE/PROCEDURE REPORT LOG ID: [id number] SURGERY/PROCEDURE DATE: 12/16/2024 INCISION/PROCEDURE START TIME: 10:31 AM INCISION CLOSE/PROCEDURE END TIME: 12:56 PM SURGEON(S)/PROCEDURALIST( S) AND CONSUMER LOAN SPECIALIST(S): Surgeons and Role: * Hung Jacobsen MD - Primary Cosmetics Machine Operator * Cyrus Cobian DO - Resident - Assisting Second C Application Developer: Mark Arreaga PA-C SURGERY/PROCEDURE(S): Right reverse Total Shoulder Arthroplasty 48349, biceps tenodesis [id number] This case is a 22 modifier due to the severe deformity of the right shoulder. This required extra time, effort, intensity to expose the glenohumeral joint and implant the prosthesis. An extra 45 to 60 minutes of surgical time was necessary longer than the standard reverse shoulder replacement. PRE-OP/PRE-PROCEDURE DIAGNOSIS: Right glenohumeral arthritis with rotator cuff tendinitis and biceps tendinitis POST-OP/POST-PROCEDURE DIAGNOSIS: Right glenohumeral arthritis with rotator cuff tendinitis and biceps tendinitis ANESTHESIA: General OPERATIVE INDICATIONS: 79 year old male who has long history with chronic right shoulder pain. Patient was diagnosed with glenohumeral arthritis and has failed nonoperative treatment including modification of activities, [id number] medication and injections. Due to failure of nonoperative treatment measures, patient was deemed a good candidate for reverse total shoulder arthroplasty due to bone loss. After discussing risks, which may include, but is not limited to: blood clots, blood loss requiring transfusion, nerve injury, infection, and fracture, benefits and alternatives, the patient elected to proceed. OPERATIVE FINDINGS: Severe right glenohumeral arthritis. Collapsed humeral head with severe medialization of the joint line, A2 glenoid, severe cystic formation in the proximal humerus, rotator cuff tendinitis. Unicortical displaced tuberosity fracture between the cysts, but soft tissue sleeve was intact OPERATIVE DETAILS: The patient was identified in the preoperative holding holding area. This is confirmed with consent form and name band. The correct site was marked. The patient was then transferred to the operating room where a preoperative safety huddle confirmed patient, site, surgery, allergies, equipment and personnel The patient was then placed under anesthesia, placed in a beachchair position. All bony prominences were padded. The surgical arm was then prepped and draped in the usual sterile fashion with Hibiclens, hydrogen peroxide, ChloraPrep, which was allowed to dry for 3 minutes. 1g of TXA was given prior to incision After appropriate time out a 10-15 cm deltopectoral incision was made. Subcutaneous bleeders were cauterized. Subcutaneous fat dissected, cephalic vein identified, deltopectoral interval identified and vein retracted laterally. Subdeltoid space was identified and created, 1-2cm of pec insertion was relased, subacromial space was identified and created and joined to the subdeltoid space, a Kolbel retractor was then placed sub pec and sub deltoid. Next, conjoint tendon was identified and subcoracoid space was bluntly dissected. Axillary nerve was palpated and protected throughout. Kolbels placed under conjoint tendon, arm then placed in external rotation and the three sisters were cauterized. Biceps tendon was unroofed and noted to be very synovitic and inflamed, tenodesed to the pec stump with 2 #2 Ethibond, and then released off the glenoid. Biceps groove was then debrided. A subscapularis peel was performed. The subscapularis tendon was tagged. Next, capsule was released off the humeral head to the 6 o'clock position, protecting the axillary nerve throughout. Humeral head was then dislocated, greater tuberosity footprint, bare spot and brev[place] capsular joint line were identified after removing osteophytes. The 135 degree cut guide was used to lalo the anatomic neck in 30 degrees of retroversion. There was a very large cyst at the anterior superior corner of the supraspinatus as well as the infraspinatus insertion. This was cleaned out, this left a very thin shell of the greater tuberosity. An anatomic head cut was then made with oscillating saw. Fukuda retractor placed posteroinferiorly. Anterior capsule and subscapularis was identified, nerve protected and blunt hohmann retractors placed. An junior-inferior capsulectomy was performed after the capsule from the overlying subscapularis, anterior bankart then placed, posterosuperior hohmann placed. Biceps stump and labrum were circumferentially removed, protecting the axillary nerve throughout. The inferior capsule was then released with retraction of the axillary nerve. Next, using our preoperative 3D CT plan, the center point of the gleno (more content not included)... [facility] Pathology biopsy report Nicanor (Tiss)on 12-16-2024 AP DISCLAIMER [facility] Comment on above: Order Comment: Speci men Type: TISSUE SPECIMEN Ordering Facility: [facility] Address: [address] [place] [address] Result Comment: Mingo whiting Developed Test (LDT) Disclaimer: Performance characteristics of immunohistochemical, immunofluorescent, and chromogenic in-situ hybridization tests have been determined by the performing laboratory within [facility]'s [facility] Pathology and Laboratory Medicine Department ([facility], [facility], [facility], [facility], [facility], [facility], or [facility]) in a manner consistent with CLIA requirements. One or more of these tests may not have been cleared or approved by the FDA. RT-[facility] is regulated under CLIA as qualified to perform high-complexity testing. These tests are used for clinical purposes. These should not be regarded as investigational or for research. Positive and negative controls stain appropriately. Performed By: #### 6 6121-5 #### [facility] CLIA [id number] OF [facility] CLIA [id number] [address] [place] [address] OF [place] CASE REPORT [facility] Comment on above: Order Comment: Speci men Type: TISSUE SPECIMEN Ordering Facility: [facility] Address: [address] [place] [address] Result Comment: Surg [facility] Pathology Report Case: [id number] Authorizing Provider: Hung Jacobsen MD Collected: 12/16/2024 12:26 PM Ordering Location: [facility] Received: 12/17/2024 07:49 AM Operating Room Pathologist: Armando Herzog MD Specimen: Humerus, Head, Right Performed By: #### 6 6121-5 #### [facility] CLIA [id number] [facility] [place] [id number] [facility] CLIA [id number] [address] [place] [address] OF [place] CLINICAL HISTORY [facility] Comment on above: Order Comment: Speci men Type: TISSUE SPECIMEN Ordering Facility: [facility] Address: [address] [place] [address] Result Comment: Pre- op diagnosis: Chronic right shoulder pain [M25.511, G89.29] Performed By: #### 6 6121-5 #### [facility] CLIA [id number] [address] [place] [address] [place] [facility] CLIA [id number] [address] [address] [facility] OF [place] FINAL DIAGNOSIS [facility] Comment on above: Order Comment: Speci men Type: TISSUE SPECIMEN Ordering Facility: [facility] Address: [address] [place] [address] Result Comment: A. R ight humeral head, arthroplasty: - Degenerative joint disease. 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 at 0925 EDT Performed By: #### 6 6121-5 #### [facility] CLIA [id number] [address] [place] [address] [place] [facility] CLIA [id number] [address] [place] [address] [facility] Comment on above: Order Comment: Speci men Type: TISSUE SPECIMEN Ordering Facility: [facility] Address: [address] [place] [address] Result Comment: Diag nostic interpretation performed at: [facility], [address] [place] [address], [facility] [address] CLIA# [id number] Radiology Therapist: Lalo Degroot MD Performed By: #### 6 6121-5 #### [facility] CLIA [id number] [address] [place] [address] [place] [facility] CLIA [id number] [address] [place] [address] [address] [facility] OF [place] GROSS DESCRIPTION [facility] Comment on above: Order Comment: Speci men Type: TISSUE SPECIMEN Ordering Facility: [facility] Address: [address] [place] [address] Result Comment: Pipo thomas, Head, Right In formalin labeled humerus, head, right is a 5.5 x 4.4 x 1.2 cm irregularly-shaped humeral head. The articular surface is extensively roughened and granular with areas of eburnation. Sectioning reveals firm, trabecular bone. Additionally within container is a 5.5 x 3.1 x 0.9 cm sommers-schneider, irregularly-shaped fragment of membranous tissue consistent with joint capsule. Quality Engineer sections are submitted as follows: A1: Soft tissue A2: Humeral head, following decalcification in formic acid. [facility] 12/17/24 1:23 PM Gross examination performed at [facility], [address] [place] [address] Performed By: #### 6 6121-5 #### [facility] CLIA [id number] [facility] [place] [id number] [place] [facility] CLIA [id number] [address] [place] [address] XR SHOULDER SPECIFY 1V RTon 12-16-2024 XR SHOULDER SPECIFY 1V RT * * *Final Report* * * DATE [...] in the regional soft tissues. External artifacts. IMPRESSION: Expected early postoperative findings following right shoulder arthroplasty New AC joint widening intra-articular air Rounded ossicle projecting at the central upper glenohumeral joint space Port Crane Operator: [facility]ATION INSTITUTEJo Ann Transcribe Date/Time: Dec 16 2024 2:57P Dictated by : KIRAN SANTILLAN MD This examination was interpreted and the report reviewed and electronically signed by: KIRAN SANTILLAN MD on Dec 16 2024 3:05PM EST [id number] [facility] CBC W Auto Differential pane l (Bld)on 12-04-2024 Basophils (Bld) [#/Vol] 0.05 10*3/uL Normal <0.11 [facility] Comment on above: Order Comment: Speci men Type: BLOOD SPECIMEN Ordering Facility: [facility] Address: [address] [place] [address] Performed By: #### 5 7021-8 #### [facility] CLIA [id number] [address] [place] [address] [place] Basophils/100 WBC (Bld) 0.7 % Normal [facility] Comment on above: Order Comment: Speci men Type: BLOOD SPECIMEN Ordering Facility: [facility] Address: [address] [place] [address] Performed By: #### 5 7021-8 #### [facility] CLIA [id number] [address] [place] [address] [place] Differential cell count method Nom (Bld) Auto Normal [facility] Comment on above: Order Comment: Speci men Type: BLOOD SPECIMEN Ordering Facility: [facility] Address: [address] [place] [address] Performed By: #### 5 7021-8 #### [facility] CLIA [id number] [address] [place] [address] [place] Eosinophils (Bld) [#/Vol] 0.28 10*3/uL Normal <0.46 [facility] Comment on above: Order Comment: Speci men Type: BLOOD SPECIMEN Ordering Facility: [facility] Address: [address] [place] [address] Performed By: #### 5 7021-8 #### [facility] CLIA [id number] [address] [place] [address] [place] Eosinophils/100 WBC (Bld) 4.1 % Normal [facility] Comment on above: Order Comment: Speci men Type: BLOOD SPECIMEN Ordering Facility: [facility] Address: [address] [place] [address] Performed By: #### 5 7021-8 #### [facility] IA [id number] [address] [place] [address] [place] Erythrocyte distribution width (RBC) [Ratio] 15.1 % High 11.5-15.0 [facility] Comment on above: Order Comment: Speci men Type: BLOOD SPECIMEN Ordering Facility: [facility] Address: [address] [place] [address] Performed By: #### 5 7021-8 #### [facility] IA [id number] [address] [place] [address] [place] Hematocrit (Bld) [Volume fraction] 38.5 % Low 39.0-51.0 [facility] Comment on above: Order Comment: Speci men Type: BLOOD SPECIMEN Ordering Facility: [facility] Address: [address] [place] [address] Performed By: #### 5 7021-8 #### [facility] IA [id number] [address] [place] [address] [place] Hemoglobin (Bld) [Mass/Vol] 12.0 g/dL Low 13.0-17.0 [facility] Comment on above: Order Comment: Speci men Type: BLOOD SPECIMEN Ordering Facility: [facility] Address: [address] [place] [address] Performed By: #### 5 7021-8 #### [facility] IA [id number] [address] [place] [address] [place] Immature granulocytes (Bld) [#/Vol] 10*3/uL Normal <0.10 [facility] Comment on above: Order Comment: Speci men Type: BLOOD SPECIMEN Ordering Facility: [facility] Address: [address] [place] [address] Performed By: #### 5 7021-8 #### [facility] IA [id number] [address] [place] [id number] [place] Immature granulocytes/100 WBC (Bld) 0.1 % Normal [facility] Comment on above: Order Comment: Speci men Type: BLOOD SPECIMEN Ordering Facility: [facility] Address: [address] [place] [address] Performed By: #### 5 7021-8 #### [facility] CLIA [id number] [address] [place] [address] [place] Lymphocytes (Bld) [#/Vol] 2.19 10*3/uL Normal 1.00-4.00 [facility] Comment on above: Order Comment: Speci men Type: BLOOD SPECIMEN Ordering Facility: [facility] Address: [address] [place] [address] Performed By: #### 5 7021-8 #### [facility] IA [id number] [address] [place] [address] [place] Lymphocytes/100 WBC (Bld) 32.4 % Normal [facility] Comment on above: Order Comment: Speci men Type: BLOOD SPECIMEN Ordering Facility: [facility] Address: [address] [place] [address] Performed By: #### 5 7021-8 #### [facility] IA [id number] [address] [place] [address] [place] MCH (RBC) [Entitic mass] 27.7 pg Normal 26.0-34.0 [facility] Comment on above: Order Comment: Speci men Type: BLOOD SPECIMEN Ordering Facility: [facility] Address: [address] [place] [address] Performed By: #### 5 7021-8 #### [facility] CLIA [id number] [address] [place] [address] [place] MCHC (RBC) [Mass/Vol] 31.2 g/dL Normal 30.5-36.0 [facility] Comment on above: Order Comment: Speci men Type: BLOOD SPECIMEN Ordering Facility: [facility] Address: [address] [place] [address] Performed By: #### 5 7021-8 #### [facility] CLIA [id number] [place] [address] [place] MCV (RBC) [Entitic vol] 88.9 fL Normal 80.0-100.0 [facility] Comment on above: Order Comment: Speci men Type: BLOOD SPECIMEN Ordering Facility: [facility] Address: [address] [place] [address] Performed By: #### 5 7021-8 #### [facility] CLIA [id number] [address] [place] [address] [place] Monocytes (Bld) [#/Vol] 0.77 10*3/uL Normal <0.87 [facility] Comment on above: Order Comment: Speci men Type: BLOOD SPECIMEN Ordering Facility: [facility] Address: [address] [place] [address] Performed By: #### 5 7021-8 #### [facility] IA [id number] [address] [place], [place] [address] [place] Monocytes/100 WBC (Bld) 11.4 % Normal [facility] Comment on above: Order Comment: Speci men Type: BLOOD SPECIMEN Ordering Facility: [facility] Address: [address] [place] [address] Performed By: #### 5 7021-8 #### [facility] IA [id number] [address] [place] [address] [place] Neutrophils (Bld) [#/Vol] 3.46 10*3/uL Normal 1.45-7.50 [facility] Comment on above: Order Comment: Speci men Type: BLOOD SPECIMEN Ordering Facility: [facility] Address: [address] [place] [address] Performed By: #### 5 7021-8 #### [facility] IA [id number] [address] [place], [place] [address] [place] Neutrophils/100 WBC (Bld) 51.3 % Normal [facility] Comment on above: Order Comment: Speci men Type: BLOOD SPECIMEN Ordering Facility: [facility] Address: [address] [place] [address] Performed By: #### 5 7021-8 #### [facility] IA [id number] [address] [place] [address] [place] Nucleated RBC (Bld) [#/Vol] 10*3/uL Normal <0.01 [facility] Comment on above: Order Comment: Speci men Type: BLOOD SPECIMEN Ordering Facility: [facility] Address: [address] [place] [address] Performed By: #### 5 7021-8 #### [facility] IA [id number] [address] [place] [address] [place] Nucleated RBC/100 WBC (Bld) [Ratio] 0.0 /100 WBC Normal [facility] Comment on above: Order Comment: Speci men Type: BLOOD SPECIMEN Ordering Facility: [facility] Address: [address] [place] [address] Performed By: #### 5 7021-8 #### [facility] IA [id number] [address] [place] [address] [place] Platelet mean volume (Bld) [Entitic vol] 9.7 fL Normal 9.0-12.7 [facility] Comment on above: Order Comment: Speci men Type: BLOOD SPECIMEN Ordering Facility: [facility] Address: [address] [place] [address] Performed By: #### 5 7021-8 #### [facility] IA [id number] [address] [place] [address] [place] Platelets (Bld) [#/Vol] 214 10*3/uL Normal 150-400 [facility] Comment on above: Order Comment: Speci men Type: BLOOD SPECIMEN Ordering Facility: [facility] Address: [address] [place] [address] Performed By: #### 5 7021-8 #### [facility] IA [id number] [address] [place] [address] [place] RBC (Bld) [#/Vol] 4.33 10*6/uL Normal 4.20-6.00 [facility] Comment on above: Order Comment: Speci men Type: BLOOD SPECIMEN Ordering Facility: [facility] Address: [address] [place] [address] Performed By: #### 5 7021-8 #### [facility] CLIA [id number] [address] [facility] [place] [address] [place] WBC (Bld) [#/Vol] 6.76 10*3/uL Normal 3.70-11.00 [facility] Comment on above: Order Comment: Speci karl Type: BLOOD SPECIMEN Ordering Facility: [facility] Address: [address] [place] [address] Performed By: #### 5 7021-8 #### [facility] CLIA [id number] [address] [facility] [place] [address] [place] OF [place] CT SHOULDER WO IVCON RTon CT SHOULDER WO IVCON RT * * *Final Report* * * DATE OF EXAM: Dec 04 2024 1:23PM [facility] 0090 - CT SHOULDER WO IVCON RT [...] Glenohumeral joint chondrocalcinosis and advanced osteoarthritis with bpsl-pl-ejxy articulation, subchondral sclerosis, cystic changes, chronic osseous [...] 14 mm (301/79). No significant additional findings. Selling Specialist (topogram) images: No significant findings. IMPRESSION: CT images for the purposes of [...] obtained in 12 months --END OF FINDING-- Port Crane Operator: WERO Transcribe Date/Time: Dec 04 2024 7:15P Dictated by : SHARDA FOSTER MD This examination was interpreted and the report reviewed and electronically signed by: SHARDA FOSTER MD on Dec 04 2024 7:21PM EST [id number] [id number] Invalid Interpretation Code [facility] Comprehensive metabolic 2000 panelon 12-04-2024 Albumin [Mass/Vol] 4.0 g/dL Normal 3.9-4.9 [facility] Comment on above: Order Comment: Speci men Type: BLOOD SPECIMENOrdering Facility: [facility] Address: [address] [place] [address] Performed By: #### 2 4323-8 ####[facility]IA [id number] [place] [address] [place] ALP [Catalytic activity/Vol] 59 U/L Normal 38-113 [facility] Comment on above: Order Comment: Speci men Type: BLOOD SPECIMENOrdering Facility: [facility] Address: [address] [place] [address] Performed By: #### 2 4323-8 ####[facility] [id number] [place] [address] [place] ALT [Catalytic activity/Vol] 13 U/L Normal 10-54 [facility] Comment on above: Order Comment: Speci men Type: BLOOD SPECIMENOrdering Facility: [facility] Address: [address] [place] [address] Performed By: #### 2 4323-8 ####[facility] [id number] [place] [address] [place] Anion gap [Moles/Vol] 10 mmol/L Normal 8-15 [facility] Comment on above: Order Comment: Speci men Type: BLOOD SPECIMENOrdering Facility: [facility] Address: [address] [place] [address] Performed By: #### 2 4323-8 ####[facility] [id number] [place] [address] [place] AST [Catalytic activity/Vol] 15 U/L Normal 14-40 [facility] Comment on above: Order Comment: Speci men Type: BLOOD SPECIMENOrdering Facility: [facility] Address: [address] [place] [address] Performed By: #### 2 4323-8 ####[facility] [id number] [place] [address] [place] Bilirubin [Mass/Vol] 0.3 mg/dL Normal 0.2-1.3 [facility] Comment on above: Order Comment: Speci men Type: BLOOD SPECIMENOrdering Facility: [facility] Address: [address] [place] [address] Performed By: #### 2 4323-8 ####[facility] [id number] [place] [address] [place] Calcium [Mass/Vol] 10.4 mg/dL High 8.5-10.2 [facility] Comment on above: Order Comment: Speci men Type: BLOOD SPECIMENOrdering Facility: [facility] Address: [address] [place] [address] Performed By: #### 2 4323-8 ####[facility] [id number] [place] [address] [place] Chloride [Moles/Vol] 107 mmol/L Normal 98-107 [facility] Comment on above: Order Comment: Speci men Type: BLOOD SPECIMENOrdering Facility: [facility] Address: [address] [place] [address] Performed By: #### 2 4323-8 ####[facility] [id number] [facility] [place] [address] [place] CO2 [Moles/Vol] 25 mmol/L Normal 22-30 [facility] Comment on above: Order Comment: Speci men Type: BLOOD SPECIMENOrdering Facility: [facility] Address: [address] [place] [address] Performed By: #### 2 4323-8 ####[facility] [id number] [address] [place] Creatinine [Mass/Vol] 0.89 mg/dL Normal 0.73-1.22 [facility] Comment on above: Order Comment: Speci men Type: BLOOD SPECIMENOrdering Facility: [facility] Address: [address] [place] [address] Performed By: #### 2 4323-8 ####[facility] [id number] [address] [place] Creatinine and Glomerular filtration rate.predicted panel (S/P/Bld) 87 mL/min/1.73m??? Normal >=60 [facility] Comment on above: Order Comment: Speci men Type: BLOOD SPECIMENOrdering Facility: [facility] Address: [address] [place] [address] Result Comment: Thuy mated Glomerular Filtration Rate (eGFR) is calculated using the 2020 CKD-EPI creatinine equation. This equation utilizes serum creatinine, sex, and age as parameters. The creatinine assay has traceable calibration to isotope dilution-mass spectrometry. Refer to KDIGO guidelines for clinical interpretation. In patients with unstable renal function, e.g. those with acute kidney injury, the eGFR may not accurately reflect actual GFR. Performed By: #### 2 4323-8 ####[facility]ORY[facility]IA [id number] [place] [address] [place] Glucose [Mass/Vol] 93 mg/dL Normal 74-99 [facility] Comment on above: Order Comment: Kelseyi men Type: BLOOD SPECIMENOrdering Facility: [facility] Address: [address] [place] [address] Result Comment: The [place] [employer] (ADA) provides guidance for cutoff [...] Standards of Medical Care in Diabetes 2016, [place] [employer]. Diabetes Care. 2016.39(Suppl 1). Performed By: #### 2 4323-8 ####[facility] [id number] [place] [address] [place] Potassium [Moles/Vol] 4.6 mmol/L Normal 3.7-5.1 [facility] Comment on above: Order Comment: Chris barajas Type: BLOOD SPECIMENOrdering Facility: [facility] Address: [address] [place] [address] Performed By: #### 2 4323-8 ####[facility] [id number] [place] [address] [place] Protein [Mass/Vol] 6.5 g/dL Normal 6.3-8.0 [facility] Comment on above: Order Comment: Kelseyi men Type: BLOOD SPECIMENOrdering Facility: [facility] Address: [address] [place] [address] Performed By: #### 2 4323-8 ####[facility]ORATORYIA [id number] [place] [address] [place] Sodium [Moles/Vol] 142 mmol/L Normal 136-144 [facility] Comment on above: Order Comment: Specchao barajas Type: BLOOD SPECIMENOrdering Facility: [facility] Address: [address] [place] [address] Performed By: #### 2 4323-8 ####[facility]ORYCLIA [id number] [place] [address] [facility] Urea nitrogen [Mass/Vol] 16 mg/dL Normal 9-24 [facility] Comment on above: Order Comment: Speci men Type: BLOOD SPECIMENOrdering Facility: [facility] Address: [address] [place] [address] Performed By: #### 2 4323-8 ####[facility]ORYCLIA [id number] [place] [address] [place] HISTORY PHYSICALon HISTORY PHYSICAL HNO ID: [id number] Author: ALINE JONES PA-C Service: ? Author Type: Physician C Application Developer Type: H&P Filed: 12/06/2024 08:07 Note Text: [facility] HISTORY AND PHYSICAL EXAMINATION SERVICE DATE: 12/04/2024 SERVICE TIME: 12:27 PM PRIMARY CARE PHYSICIAN: Armando Richards MD, MD Assessment 1. Pre-op testing (Primary) 2. Chronic right shoulder pain Surgery 12/16/2024 - REFER TO [facility] - PREOPERATIVE OPTIMIZATION 3. Cerebrovascular accident (CVA), unspecified mechanism (HCC) Had a stroke 03/25/2024. He was having vision changes that were affecting his balance and dizziness. He had a MR brain suggest tiny area of ischemia R occipital lobe and a possible area in the L thalamus. Was noted in the ED, The thalamic lesion also doesn't correlate well with his symptoms (the R occipital lesion does). Symptoms resolved after a day. No reoccurrences. Follows neurology, last OV 04/25/[address] Fausto Torres is an 79 year old male who is following up after his recent hospitalization for acute ischemic stroke. His stroke mechanism is suspected to be due to either embolic v small vessel disease. He was discharge home with an event monitor but has declined it. On today's visit the reason for the event monitor was explained to the patient and he is agreeable. For the asymptomatic right ICA stenosis, we will refer him to vascular surgeon for surveillance and possible intervention when indicated. A new event monitor was ordered for mail delivery. He will stop his Plavix and continue Aspirin 81 mg monotherapy. Continue to monitor his BP to maintain normotensive <130/80, LDL , 70 and HgA1C < 7%. All of their questions were answered to their satisfaction. Follow up with me in 6 months. He wore a monitor for 30 days and was not found to have any arrhythmias. Echo completed which showed Aortic sclerosis without stenosis, Mitral regurgitation, mild, Tricuspid regurgitation, mild, Normal atria, EF 60-65%. Had left shoulder replacement 07/25/24 without complications. Advised to stay on 81mg ASA for surgery. 4. Mixed hyperlipidemia Continue rosuvastatin (Crestor) 5. Elevated BP without diagnosis of hypertension Bp in office 117/68 continue lisinopril Last 14 Encounter BP Readings: Date: BP: 12/04/2024 117/68 07/25/2024 106/56 07/22/2024 92/59 07/02/2024 118/57 08/24/2023 113/66 07/31/2023 144/96 02/16/2023 78/46 6. Stenosis of carotid artery, unspecified laterality Follows vascular, last OV 12/02/[address] Lopez/ 7. Chronic obstructive pulmonary disease, unspecified COPD type ([facility]) Does not use inhalers. Denies recent exacerbations or hospitalizations. Denies use of oxygen. Denies cough, wheezing, SOB, orthopnea. Lungs CTAB 8. Former smoker 0.5 ppd x 15 years quit 1992 9. Obstructive sleep apnea syndrome Noncompliant on cpap 10. Gastroesophageal reflux disease without esophagitis Intermittent takes tums prn. No specific triggers. 11. Type 2 diabetes mellitus without complication, without long-term current use of insulin ([facility]) Does not consistently take fasting AM blood sugars. Advised patient that blood sugars will be checked day of surgery and recommended to be under 200 in order to proceed with surgery. A1C must be under 9.0 in order to proceed with surgery per PACC guidelines. Most recent A1C 5.8. A1C to be completed today. Continue metformin 12. Mitral valve insufficiency, unspecified etiology 13. Aortic valve sclerosis Systolic murmur appreciated best at LLSB and apex. Was found to have trace to mild mitral regurg on echo 03/2024 and aortic sclerosis without stenosis. ANESTHESIA FINDINGS: Intubation History: No history of difficult intubation Significant Anesthesia Considerations: none Airway History: No history of difficult airway Meza Activity Status Index: METS: Walk indoors, such as around the house (1.75 METs) Do light work around the house, such as dusting or washing dishes (2.70 METs) Take care of self; that is eating, dressing, bathing, using the toilet (2.75 METs) Walk a block or two on level ground (2.75 METs) Climb a flight of stairs or walk up a hill (5.50 METs) DASI Score: 15.45 ([employer] walking at track 3 laps and bike 20 minutes 6 days a week) Patient denies any chest pain or undue shortness of breath with the above physical activity. Patient is limited most or all of the time (uses scooter, mobility device). Clinical Frailty Scale: 3. Well, with treated comorbid disease STOP-Bang Score: STOP-Bang Score: 0 (Romeo on cpap) I - PHYSICAL EVALUATION AIRWAY Patient intubated: No. Tracheostomy tube not present Mallampati: III. TM distance: >3 FB. Neck ROM: limited extension. Mouth opening: adequate. Short neck: no. Thick neck: no Lip Bite Test: I Microretrognathia/Microna gthia/Recessed Chin: No DENTAL Normal dental ob (more content not included)... Normal [facility] HbA1c (Bld)on 12-04-2024 Average glucose Estimated from glycated hemoglobin (Bld) [Mass/Vol] 126 mg/dL [facility] Comment on above: eAG: (Estimated aver age glucose) is a calculated value from HgbA1c and is architectural representative of the average blood glucose level in the last 2-3 month period. HbA1c (Bld) [Mass fraction] 6 % High 4.3 - 5.6 % [facility] Comment on above: [place] Diabetes As sociation guidelines indicate that patients with HgbA1c in the range 5.7-6.4% are at increased risk for development of diabetes, and intervention by lifestyle modification may be beneficial. HgbA1c greater or equal to 6.5% is considered diagnostic of diabetes. Interpretation and review of laboratory results Abnormal [facility] Average glucose Estimated from glycated hemoglobin (Bld) [Mass/Vol] 126 mg/dL [facility] Comment on above: Order Comment: Chris barajas Type: BLOOD SPECIMEN [facility] Address: [address] [place] [address] Result Comment: eAG: (Estimated average glucose) is a calculated value from HgbA1c and is architectural representative of the average blood glucose level in the last 2-3 month period. Performed By: #### 5 5454-3 #### [facility] CLIA [id number] [address] [place] [address] [place] HbA1c (Bld) [Mass fraction] 6.0 % High 4.3-5.6 [facility] Comment on above: Order Comment: Chris baarjas Type: BLOOD SPECIMEN [facility] Address: [address] [place] [address] Result Comment: Amer ican Diabetes Association guidelines indicate that patients with HgbA1c in the range 5.7-6.4% are at increased risk for development of diabetes, and intervention by lifestyle modification may be beneficial. HgbA1c greater or equal to 6.5% is considered diagnostic of diabetes. Performed By: #### 5 5454-3 #### [facility] CLIA [id number] [address] [place] [address] OF [place] TYPE AND SCREEN,30 DAYon ABO A Normal [facility] Comment on above: Order Comment: Chris barajas Type: BLOOD SPECIMEN [facility] Address: [address] [place] [address] Performed By: #### T SCR30 #### [facility] CLIA [id number] [place] [address] [place] Rh Nom (Bld) Positive Normal [facility] Comment on above: Order Comment: Chris barajas Type: BLOOD SPECIMEN [facility] Address: [address] [place] [address] Performed By: #### T SCR30 #### [facility] CLIA [id number] [address] [place] [address] [facility] XR CHEST 2V FRONTAL/LATon XR CHEST 2V FRONTAL/LAT * * *Final Report* * * DATE OF EXAM: Dec 04 2024 1:18PM [id number] - XR CHEST 2V FRONTAL/LAT / PROCEDURE REASON: multiple diagnoses * * * * Physician Interpretation * * * * EXAMINATION: CHEST RADIOGRAPH (2 VIEW FRONTAL and LATERAL) CLINICAL HISTORY: Chronic right shoulder pain [...] the right shoulder. No acute skeletal findings. IMPRESSION: No acute radiographic abnormality. 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 [place] Operator: PSCB Transcribe Date/Time: Dec 05 2024 1:03P Dictated by : KELTON VERAS MD This examination was interpreted and the report reviewed and electronically signed by: KELTON VERAS MD on Dec 05 2024 1:05PM EST [id number] [facility] Inpatient Patient Summaryon 11-18-2024 Inpatient Patient Summary Inpatient Patient Summary [place] [address] Clinical Summary Person Information Name: TYLER TORRES Age: 79 Years : 1945 Sex: Male PCP: ARMANDO RICHARDS MD Marital Status: Race: White Ethnicity: Non- or Language: Sinhala Visit Id: Visit Reason: RIGHT KIDNEY STONE Speciality: Acuity: Enc Type: Outpatient Med Service: Surgery Arrival: 11/18/2024 10:45:56 Discharge: Dispo Type: Address: [address] [place] [phone] Provider Notes: Diagnosis: Encounter for removal of ureteral stent Problems Active Ureteral stone ED (erectile dysfunction) Foreign body in bladder Kidney stones Hydronephrosis, left 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 Kidney stone GERD (gastroesophageal reflux disease) Diabetes Chronic obstructive pulmonary disease Arthritis Smoking Status: Functional Status: Sensory Deficits: History of Falls: Mobility Assistance Prior to Admission: ADLs: Current Level of Assistance for Self-Care/Mobility: Cognitive Status: Allergies No Known Allergies Laboratory or Other Results This Visit (last charted value for your 11/18/2024 visit) No Laboratory or Other Results This Visit Measurements: Height: 170 cm Weight: 79 kg Blood Pressure: Not Valued / Not Valued BMI: 27.34 kg/m2 Procedures No Procedures Documented Immunizations No Immunizations Documented This Visit Final Med List: celecoxib (celecoxib 100 mg Cap) 1 Capsules By Mouth 2 times a day. cetirizine 10 Milligram every day. cyclobenzaprine (cyclobenzaprine 5 mg Tab) By Mouth 3 times a day. duloxetine 30 Milligram By Mouth. finasteride (finasteride 5 mg Tab) 1 Tablets By Mouth every day. Refills: 11. gabapentin (gabapentin 300 mg Cap) 1 Capsules By Mouth 3 times a day. melatonin (Melatonin) 5 Milligram once a day (at bedtime). metformin (metformin 500 mg oral tablet) 1 Tablets By Mouth 2 times a day. omeprazole 20 Milligram By Mouth every day. oxycodone (oxyCODONE 5 mg Cap) 1 Capsules By Mouth every 4 hours. tamsulosin (tamsulosin 0.4 mg Cap) 1 Capsules By Mouth every day. Refills: 11. Care Team Members: Attending Physician: Olu Sosa MD Consulting Physician: Referring Physician: Olu Sosa MD Follow up: With: Address: When: Olu Sosa [address] [place] [address] [phone] Business (1) Comments: Obtain renal US in 6 weeks, call for results. Office to schedule routine follow up in 6 months with renal US Patient Education Information: EU - Cystoscopy with Stent Removal Discharge Instructions (CUSTOM) [facility] Main OR Intraoperative Recor don 11-18-2024 Main OR Intraoperative Record Main OR Intraoperative Record IntraOp Document Type FTURO Summary Primary Physician: Olu Sosa MD Finalized Date/Time: 11/18/24 11:59:38 Pt. Name: TYLER TORRES.O.B./Sex: 1945 Male Med Rec #: [id number] Physician: Olu Sosa MD Financial #: [id number] Pt. Type: O Room/Bed: / Admit/Disch: 11/18/24 10:45:56 - Institution: Case Times FTURO Entry 1 Patient Times In Room 11/18/24 11:54:00 Out Room 11/18/24 11:59:00 Procedure Times Start 11/18/24 11:56:00 Stop 11/18/24 11:57:00 Anesthesia Times Last Modified By: Ivan LY, Carmen Kennedy 11/18/24 11:59:34 Case Attendance FTURO Entry 1 Entry 2 Entry 3 Case Attendee Khoi METZ, Olu Love RN, Anastacia Arvizu A Role Performed Surgeon - Primary School Psychological Examiner - Primary Scrub - Primary Time In 11/18/24 11:54:00 11/18/24 11:54:00 11/18/24 11:54:00 Time Out 11/18/24 11:59:00 11/18/24 11:59:00 11/18/24 11:59:00 Procedure CYSTOSCOPY LOCAL WITH CYSTOSCOPY LOCAL WITH CYSTOSCOPY LOCAL WITH STENT REMOVAL(Right) STENT REMOVAL(Right) STENT REMOVAL(Right) Comments Last Modified By: Ivan LY, Carmen Love RN, Carmen Chavez RN 11/18/24 11:59:35 11/18/24 11:59:35 11/18/24 11:59:35 Surgical Procedures FTURO Entry 1 Procedure Description Procedure CYSTOSCOPY LOCAL WITH Modifiers Right STENT REMOVAL Surgeon Description CYSTOSCOPY, RIGHT STENT REMOVAL Primary Procedure Yes Primary Surgeon Olu Sosa MD Start 11/18/24 11:56:00 Stop 11/18/24 11:57:00 Anesthesia Type Local Surgical Service Urology Wound Class 2 - Clean-Contaminated Last Modified By: Carmen Love RN 11/18/24 11:59:07 General Case Data FTURO Pre-Care Text: Classifies surgical wound, implements aseptic technique, initiates traffic control Entry 1 Case Information OR URO 1 FT Case Level None Wound Class 2 - Clean-Contaminated Specialty Urology Preop Diagnosis RIGHT KIDNEY STONE Postop Same As Preop Yes Postop Diagnosis RIGHT KIDNEY STONE Outcomes Met? Yes Last Modified By: Carmen Love RN 11/18/24 11:55:51 Post-Care Text: The patient is free from signs and symptoms of infection EU IntraOp - FTURO Pre-Care Text: Implements protective measures prior to operative or invasive procedure, confirms identity before the operative or invasive procedure, verifies operative procedure, surgical site, and laterality Entry 1 EU Perioperative Protocols Procedure(s) CYSTOSCOPY LOCAL WITH Patient Identity Birthday, ID Band STENT REMOVAL(Right) Verified (select at Check, Patient least 2): Participation Consents / H and P H&P, Surgery/Procedure Operative Site N/A Verified Consent Marking Verified Surgical Site Yes Laterality Verified n/a Verified Procedure Verified Yes Correct Patient Yes Position Verified Availability Equipment, Medication Time Out Khoi METZ, Ivan Watts Verified (If Participants Carmen LY, Dickson, Applicable) Anastacia A Time Out Complete 11/18/24 11:55:00 Allergies Reviewed? Yes Allergies Reviewed Self/Patient With Body Position Supine Prep Area PENIS, SCROTUM Prep Agents Hibiclens, Sterile Water Skin. Condition Intact, Cavalero, Warm, & Dry Additional None Specimens Collected Vitals - EU Blood Pressure 122/70 Pulse 80 bpm Respirations 18 br/min SPO2 97 % EBL 0 I&O - EU Total Intake 0 mL Total Output 0 mL Outcomes Met? Yes Last Modified By: Carmen Love RN 11/18/24 11:58:45 Post-Care Text: The patient is free from signs and symptoms of injury caused by extraneous objects Sign Out FTURO Entry 1 Before Patient Leaves OR Nurse verbally Yes Nurse verbally n/a confirms with the confirms with the team the name of team that the procedure(s) instrument, sponge, recorded and needle counts are correct (or N/A) Nurse verbally n/a Nurse verbally Yes confirms with the confirms with the team how the team whether there specimen is labeled are any equipment (including patient problems to be name), if applicable addressed Sign Out Complete 11/18/24 11:57:00 Last Modified By: Carmen Love RN 11/18/24 11:57:59 Case Comments Finalized By: Carmen Love RN Document Signatures Signed By: Carmen Love RN 11/18/24 11:59 Normal [facility] OR Preoperative Recordo n 11-18-2024 Main OR Preoperative Record Main OR Preoperative Record Holding Area Document Type FTURO Summary Primary Physician: Olu Sosa MD Finalized Date/Time: 11/18/24 11:25:42 Pt. Name: TYLER TORRES /Sex: 1945 Male Med Rec #: [id number] Physician: Olu Sosa MD Financial #: [id number] Pt. Type: O Room/Bed: / Admit/Disch: 11/18/24 10:45:56 - Institution: Case Times Holding FTURO Pre-Care Text: Verifies consent for planned procedure, identifies individual values and wishes concerning care, includes family members in perioperative teaching Secures patient's records' belongings, and valuables, maintains patient's dignity and privacy, and maintains patient confidentiality Entry 1 In Holding 11/18/24 11:24:00 Outcomes Met? Yes Last Modified By: Linda Monroy 11/18/24 11:24:34 Post-Care Text: The patient participates in decisions affecting his or her perioperative plan of care The patient's right to privacy is maintained Surgery Checklist FTURO Entry 1 Patient Birthday, ID Band Procedure History and Physical, Identification: Check, Patient Verification: Surgical Consent, With Participation Patient NPO after Midnight: n/a Date/Time: 11/18/24 11:24:00 Personal Items CLOTHES, PHONE, WALLET Limitations: CANE Comment: AND CANE Complaints of Pain: No Pain Comment: NO PAIN Skin Integrity Unable to Visualize Vitals - EU Blood Pressure 122/70 Pulse 80 bpm Respirations 18 br/min SPO2 97 % Additional None Specimens Comment N/A Specimens Collected Residual Amount - 0 RN Reviewed Yes Post Void Last Modified By: Linda Monroy 11/18/24 11:25:29 Finalized By: Linda Monroy Document Signatures Signed By: Linda Monroy 11/18/24 11:25 Normal [facility] Operative Reporton Operative Report Operative Report Patient: TYLER TORRES Age: 79 years Sex: Male : 1945 Associated Diagnoses: None Author: Olu Sosa MD Procedure Operative Information Details: Date/ Time: 11/18/2024 12:01:00. Pre-Op Dx: Encounter for removal of ureteral stent ([id number] Z46.6, Discharge, Medical). Post-Op Dx: Same. Anesthesia Type: Local. Procedure: Local Cystoscopy with Stent Removal. Complications: None. Risks/Benefits/Informed Consent: Surgical risks, benefits, details of the procedure have been explained to the patient, Full informed consent has been obtained. Intraoperative Information Prepped: The patient was placed in supine position, The patient was prepped with the Betadine solution (Hibiclens). Anesthesia: 2% Xylocaine Jelly per urethra. Procedure: Cystoscopy and Right Stent Removal, The flexible Cystoscope was passed in retrograde fashion into the bladder without difficulty, The bladder was viewed in entirety and found to be without tumors or stones, Mild inflammation was seen surrounding the orifice with the stent seen protruding from it, The stent was then grasped and removed in its entirety, Mild hematuria . Specimens Removed: None. Devices Implanted: None. Postoperative Information Discharge: The patient tolerated the procedure well and was subsequently discharged home, Obtain renal US In 6 wks to ensure no silent obstruction develops, call for results. Follow up appt in 6 months with renal US for routine monitoring . Normal [facility] Comment on above: Result Comment: Elec tronically Signed By: Olu Sosa MD\.br\Date and Time Signed: 11/18/24 12:03 EDT Outpatient Surgery Discharge Instructionon 11-18-2024 Outpatient Surgery Discharge Instruction Outpatient Surgery Discharge Instruction [address] [address] Patient Discharge Instructions PERSON INFORMATION Name: TYLER TORRES Date of : 1945 Current Date: 11/18/2024 12:01:16 PHYSICIANS Admitting Physician: Olu Sosa MD Comment: Discharge Diagnosis: Encounter for removal of ureteral stent TYLER TORRES has been given the following list of follow-up instructions, prescriptions, and patient education materials: IF UNABLE TO CONTACT YOUR PHYSICIAN AND YOU FEEL IT IS AN EMERGENCY, GO TO THE NEAREST EMERGENCY ROOM OR CALL 911 Follow up: With: Address: When: Olu Sosa [address] [facility] [address] [place], [place] [id number] [phone] Business (1) Comments: Obtain renal US in 6 weeks, call for results. Office to schedule routine follow up in 6 months with renal US Comment: PATIENT EDUCATION INFORMATION Instructions: Cystoscopy with Stent Removal ??? Voiding after the procedure: there may be some pain, burning, urgency, frequency and blood tinged urine following the procedure. These symptoms usually resolve within 2-5 days. Drink the amount of fluid it takes to keep the urine pink to yellow or clear in color. Drinking enough water and fluids will help to ease any discomfort after your procedure. ??? If you are having problems that seem out of the ordinary, please call. ??? If unable to contact your physician and you feel it is an emergency, go to the nearest emergency room or call 911 ??? Diet ??? you may resume your normal diet. ??? Activity ??? you may resume your normal activities ??? Call if you have a fever over 100 degrees. BRIAN Coronado LEE, have received the attached patient education materials/instructions and have verbalized understanding: May we do a follow up call? Yes No I was present when discharge instructions were given Patient Signature ___ Date Clinican/Nurse Signature Date You may receive a survey from Daniel Asher asking you to rate your care experience. Your feedback is important and will help us understand what we do well and how we can improve the quality of care we provide to you, your loved ones and our community. It???s an honor to serve you. Thank you for choosing [facility] Normal [facility] Reminderson 11-18-2024 Reminders Reminders From: Calista Jain To: EU - Recalls Lub[place]; Sent: 11/18/2024 13:21:56 EDT Show up: 04/21/2025 13:21:00 EDT Subject: 6 Month ESTELLE @ [facility] Due Date/Time: 05/21/2025 13:21:00 EDT Reminder/Recall Per KML, patient to have ESTELLE done prior to 6 month f/u appointment on 05/21/25. Patient prefers [facility]. Imaging will need to be ordered and faxed to [facility], also please remind the patient to obtain the imaging prior to the f/u appointment. Normal [facility] Urine Cultureon 10-29-2024 Bacteria identified Cx Nom (U) No Growth 2 Days PERFORMED BY: [place] [address] PATHOLOGIST FOOD ASSEMBLER PAO VEGA M.D. Normal [facility] Comment on above: Performed By: #### C UU #### [address] Ambulatory Visit Summaryon 0 10-16-2024 Ambulatory Visit Summary Ambulatory Visit Summary TYLER TORRES :1945 Visit Date:10/16/2024 Ambulatory Visit Instructions Your Diagnosis Ureteral stone Kidney stone BPH with obstruction/lower urinary tract symptoms Tests Performed CT Abdomen/Pelvis w/o Contrast -- Results Pending -- Please visit your patient portal for your results or contact your primary care physician. Your Care Team Attending Physician - Olu Sosa MD. Primary Care Physician - ARMANDO RICHARDS MD This Is Your Medications List finasteride (finasteride 5 mg Tab) tamsulosin (tamsulosin 0.4 mg Cap) Contact prescribing physician if questions or concerns celecoxib (celecoxib 100 mg Cap) cetirizine cyclobenzaprine (cyclobenzaprine 5 mg Tab) duloxetine gabapentin (gabapentin 300 mg Cap) melatonin (Melatonin) metformin (metformin 500 mg oral tablet) omeprazole oxycodone (oxyCODONE 5 mg Cap) Procedures Performed Cystoscopic removal of ureteric stent (03/09/2023), Cystoscopic laser lithotripsy of ureteric calculus (03/01/2023), ESWL of kidney (05/18/2022), Back, Procedure on back. Discharge Vitals Heart Rate (Peripheral) 1 Respiratory Rate 18 Blood Pressure 90/58 Height 170 cm Height 67 in Weight 79.7 kg Weight 175.708 lb BMI 27.58 What to do next You Need to Schedule the Following Appointments Follow Up with Khoi METZ, Olu Reynolds, URL, URO When: Where: Medications What How Much When Why Instructions New finasteride (finasteride 5 mg Tab) 1 Tablets By Mouth Every day BPH with obstruction/lower urinary tract symptoms Refills: 11 Pickup at [facility]/pharmacy #[id number] Unchanged tamsulosin (tamsulosin 0.4 mg Cap) 1 Capsules By Mouth Every day Unchanged celecoxib (celecoxib 100 mg Cap) 1 Capsules By Mouth 2 times a day Contact prescribing physician if questions or concerns Unchanged cetirizine 10 Milligram Every day Contact prescribing physician if questions or concerns Unchanged cyclobenzaprine (cyclobenzaprine 5 mg Tab) By Mouth 3 times a day Contact prescribing physician if questions or concerns Unchanged duloxetine 30 Milligram By Mouth Contact prescribing physician if questions or concerns Unchanged gabapentin (gabapentin 300 mg Cap) 1 Capsules By Mouth 3 times a day Contact prescribing physician if questions or concerns Unchanged melatonin (Melatonin) 5 Milligram Once a day (at bedtime) Contact prescribing physician if questions or concerns Unchanged metformin (metformin 500 mg oral tablet) 1 Tablets By Mouth 2 times a day Contact prescribing physician if questions or concerns Unchanged omeprazole 20 Milligram By Mouth Every day Contact prescribing physician if questions or concerns Unchanged oxycodone (oxyCODONE 5 mg Cap) 1 Capsules By Mouth Every 4 hours Contact prescribing physician if questions or concerns Pharmacy Information [facility]/pharmacy #[id number]: [address], [place] [phone] Allergies No Known Allergies Problems Ongoing - Any problem that you are currently receiving treatment for. Arthritis BPH with obstruction/lower urinary tract symptoms Chronic obstructive pulmonary disease Diabetes ED (erectile dysfunction) Foreign body in bladder GERD (gastroesophageal reflux disease) Hydronephrosis, left Kidney stone Kidney stones Multiple renal cysts Ureteral stone Patient Survey You may receive a survey via text or e-mail asking about your office visit. Please share your experience with us by completing your survey. We appreciate your feedback and thank you for choosing us for your care. Education Materials Kidney Stones Kidney stones are rock-like masses that form inside of the kidneys. Kidneys are organs that make pee (urine). A kidney stone may move into other parts of the urinary tract, including: ??? The tubes that connect the kidneys to the bladder (ureters). ??? The bladder. ??? The tube that carries urine out of the body (urethra). Kidney stones can cause very bad pain and can block the flow of pee. The stone usually leaves your body through your pee. A doctor may need to take out the stone. What are the causes? Kidney stones may be caused by: ??? Too much calcium in the body. This may be caused by too much parathyroid hormone in the blood. ??? Uric acid crystals in the bladder. The body makes uric acid when you eat certain foods. ??? Narrowing of one or both of the ureters. ??? A kidney blockage that you were born with. ??? Past surgery on the kidney or the ureters. What increases the risk? You are more likely to develop this condition if: ??? You have had a kidney stone in the past. ??? Other people in your family have had kidney stones. ??? You do not drink enough water. ??? You eat a diet that is high in protein, salt (sodium), or sugar. ??? You are very overweight (obese). What are the signs or symptoms? Symptoms of a kidney stone may include: ??? Pain (more content not included)... Normal [facility] Urology Office/Clinic Noteon 10-16-2024 Urology Office/Clinic Note Urology Office/Clinic Note Chief Complaint 1yr f/u HPI Staff 79 yr old male here for 1 yr f/u w/ ESTELLE & KUB. Denies all urinary symptoms. PVR today - 91mL DX: Kidney Stone, BPH & Hydronephrosis *Tamsulosin 0.4mg QD therapy - pt unsure of meds today, is going to call to verify he is still taking this ESTELLE & KUB 09/05/24 @ [facility] History of Present Illness Tests reviewed: UA, KUB, ESTELLE. I have reviewed the previous health record information and history for this patient from BRANT Jones APRN. I have reviewed and verified the staff HPI to be accurate for this encounter. Review of Systems PHQ Score Initial Depression Screen Score: 0 SCORE ROS - Provider Constitutional: denies weight loss, denies hot flashes. Eyes: denies eye problems. Gastrointestinal: denies nausea, denies vomiting. Cardiovascular: denies chest pain or angina. Integumentary: no dryness Musculoskeletal: denies musculoskeletal symptoms. ENMT: denies otolaryngeal symptoms. Respiratory: no shortness of breath. Heme/Lymph: denies easy bleeding tendency, denies easy bruising tendency. Psychiatric: no confusion, no anxiety. Genitourinary: See HPI. Physical Exam Vitals & Measurements HR: 1(Peripheral) RR: 18 BP: 90/58 HT: 67 in HT: 170 cm WT: 79.7 kg WT: 175.708 lb BMI: 27.58 General Appearance: alert, no distress, well nourished, well developed male. Cane walker Assessment/Plan Tyler 79 yr old male here for 1 yr f/u w/ ESTELLE & KUB for hx renal stones 1. Ureteral stone (N20.1: Calculus of ureter) [facility] 12/10/[address] showed 3 mm stone at right UVJ as well as multiple stones bilaterally measuring up to 8 mm. Did not see stone pass. Denies further pain. Discussed limitations of KUB/ESTELLE for small distal stones, ESTELLE did not capture bladder, risk of stricture/renal failure from retained stone. Recommend CT AP wo contrast to ensure stone has passed. If still present, recommend ureteroscopy with laser lithotripsy, stent placement. Pt agrees to plan The procedural risks, benefits, details, and treatment alternatives have been discussed with the patient. These include bleeding, infection, inability to break or retrieve all of the stone, injury to the ureter (the tube which connects the kidney to the bladder), injury to the kidney scarring of the ureter, and need for repeat procedures, among others. Full informed consent will be obtained. Will order General anesthesia. -CT AP wo contrast at [facility]. Call with results -If Right ureteral stone still present OR large stone burden with low likelihood of passage due to size, will schedule right ureteroscopy, laser lithotripsy, stent placement. 2. Kidney stone (N20.0: Calculus of kidney) Rt ESWL 05/18/22. KUB 07/04/22 [facility] - BL stones 5 mm on both sides (prior 1 cm on R). Pt passed some stone fragments with no pain. Stone analysis 07/06/22 - Ca Ox di 90%, Ca Ox mono 5%. ESTELLE 01/10/23 [facility] - Multiple R stones up to 1 cm. Multiple L renal stones, largest 1.5 cm. KUB 01/10/23 [facility] - BL stones. No measurements given. No ureteral stone. Personal review: 3-[address] AP wo con 02/08/23 - L ureter 7 x 5 mm, mild L sided hydro. 2 punctate stones R UVJ. 4 stones L kidney, largest 5 mm. Multiple L renal cysts are similar, largest LUP 6 cm. 3 nonobstructing stones RLP, largest 6 mm. Likely simple cyst LLP 17 mm, small amount of layering calcification along the periphery of this lesion which may represent milk of Ca. S/p cysto, L RGP, URS, laser litho, stone extraction of ureteral stone, stent placement 03/01/23. Stone analysis - Ca Ox di 90%, 5% mono, 5% CaP. S/p Cysto/Lt Stent Removal 03/09/23 ESTELLE 04/25/23 - multiple calcification at the Rt UVJ, bilat cortical cysts, nonobstructing nephrolithiasis. KUB 09/21/23 [facility] - No visible stones. ESTELLE 09/21/23 [facility] - BL renal stones, measuring up to 1.4cm on R and up to 0.8cm on L. No hydro. Personal review: L kidney stone is in parenchyma. ESTELLE 12/19/2023 - BL stones, benign-appearing bilateral renal cysts. KUB 12/19/2023 - right kidney stones and suspected small distal right ureteral stone. ESTELLE 09/05/24 [facility] - BL simple cysts. BL stones 1.8 cm R, 0.8 cm L (parenchyma) KUB 09/05/24 [facility] - R Nephrolithiasis measuring 8mm, stable. See #1. If stones have truly grown/low likelihood of passage, will proceed with stone treatment to prevent further ER visits. Pt elects to proceed. I discussed the risks, benefits, alternatives and complications associated with ureteroscopy with laser lithotripsy and stone extraction, including but not limited to bleeding, pain, infection, ureteral perforation, extravasation, stricture formation, sepsis, obstruction, inability to reach the stone, inability to fragment the stone, and inability to retrieve all stone fragments. The need for ancillary procedures such as stent placement and removal, retrograde urography, and percutaneous nephrostomy were also discussed. The patient also understood that a ureteral stent may be placed and (more content not included)... Normal [facility] Comment on above: Result Comment: Elec tronically Signed By: Olu Sosa MD\.br\Date and Time Signed: 10/16/24 12:25 EST\.br\Electronically Co-Signed By: Deb Brunson\.br\Date and Time Co-Signed: 10/16/24 12:07 EST CNOVon 10-15-2024 CNOV Office Visit (ORAVON ) ----- TYLER TORRES ([id number]) 1945 M Date Time Provider Department 10/15/24 3:30 PM HUNG JACOBSEN During your visit today, we recorded the following information about you: Hung Jacobsen MD 10/15/2024 4:32 PM Signed SHOULDER/ELBOW ESTABLISHED VISIT SERVICE DATE: 10/15/2024 PCP: Armando Richards MD, MD Date of Surgery: 07/25/24 Surgery: Left Reverse Shoulder Replacement Follow-up time: 3 months SUBJECTIVE HISTORY OF PRESENT ILLNESS: 79 year old male 3 months out from surgery. Doing well. Has been compliant with exercise and restrictions. Able to stand from chair without assistance. ACTIVE PROBLEM LIST Chronic Right Shoulder Pain Type 2 Diabetes Mellitus Without Complication, Without Long-Term Current Use of Insulin ([facility]) Former Smoker Chronic Obstructive Pulmonary Disease (Hcc) Lumbar Stenosis With Neurogenic Claudication Status Post Lumbar Spinal Fusion Calculus of Kidney Elevated Bp Without Diagnosis of Hypertension Finding of Above Normal Blood Pressure Gastroesophageal Reflux Disease Without Esophagitis Diabetes Mellitus ([facility]) Mixed Hyperlipidemia Obstructive Sleep Apnea Syndrome Peripheral Venous Insufficiency Cva (Cerebral Vascular Accident) ([facility]) Carotid Stenosis ALLERGIES Allergen Reactions Simvastatin Unknown MEDICATIONS: acetaminophen (TYLENOL EXTRA STRENGTH) 500 mg tablet Take 2 tablets by mouth every 6 hours as needed for pain. for pain. aspirin, enteric coated (ASPIRIN, ENTERIC COATED) 81 mg EC tablet Take 1 tablet by mouth two times a day for 14 days. Then, resume home dose of 1 tablet once daily. rosuvastatin (CRESTOR) 20 mg tablet Take 20 mg by mouth every morning. lisinopril (ZESTRIL) 10 mg tablet Take 10 mg by mouth every morning. cyanocobalamin (VITAMIN B-12) 1,000 mcg tab Take 1,000 mcg by mouth once daily. MULTIVITAMIN ORAL Take by mouth once daily. esomeprazole (NEXIUM) 40 mg capsule DULoxetine (CYMBALTA) 30 mg capsule Take 30 mg by mouth. Melatonin 5 mg cap Take 5 mg by mouth. metFORMIN (GLUCOPHAGE) 500 mg tablet Take 500 mg by mouth. tamsulosin (FLOMAX) 0.4 mg Take 0.4 mg by mouth. OBJECTIVE There were no vitals taken for this visit. PHYSICAL EXAMINATION: Alert and oriented x3, ambulates easily to exam table without assistance Painless neck ROM in all planes. Negative Spurling's. No radiating numbness or tingling past elbows. No visibile head, eyes, ear, neck, throat deformities Left shoulder range of motion today is 120/50/posterior left buttock. On the right side is 80/50/SI joint. External rotation 4+ out of 5. Axillary, Long Thoracic, CN XI, Median, Ulnar, Radial, musculocutaneous nerves intact to motor and sensation. Fingers warm and well perfused, BCR< 2sec. Radial Pulse 2+ RADIOGRAPHIC RESULTS: Imaging was personally reviewed by myself today X-rays of the left shoulder show reverse replacement good position. Unchanged from previous. No fracture or dislocation. X-rays right shoulder show severe glenohumeral arthritis with severe joint line medialization and glenoid bone loss. ASSESSMENT Right glenohumeral arthritis, left reverse shoulder placement 3 months out PLAN DIAGNOSIS: (M25.511, G89.29) Chronic right shoulder pain (primary encounter diagnosis) (Z47.1, Z96.612) Aftercare following left shoulder joint replacement surgery (M19.011) Glenohumeral arthritis, right Severe right glenohumeral arthritis. Left reverse shoulder placement 3 months out. Doing well. Would like to get his right side completed. Discussed reverse shoulder placement. and the postoperative course. Discussed preoperative CT scan. Will get him scheduled. Risks, Benefits, Alternatives of reverse total shoulder right surgery discussed with patient and their family. They are aware of the risks including but not limited to infection, bleeding/vessel injury, nerve injury, DVT, PE, hardware failure and complications, need for revision surgery, fracture and wound healing issues. Discussion of anesthetic complications including block related complications, post-op medical complications such as [place]/pneumonia/etc, and were also discussed, and patient advised to discuss further with preoperative clearance physicians and anesthesia team prior to surgery. All questions were answered for patient today, they should not hesitate to call the office with any issues. Medical Decision Making: Medical Decision Making Level: 1 - N/A Hung Jacobsen MD Allergies As of Date: 10/15/2024 Noted Allergy Reaction SIMVASTATIN 05/10/2018 16 - Unknown Date Reviewed: 10/15/2024 Reviewed by: Ana Lilia Quiroga MA - Fully Assessed Reason for Visit: Post Op [174] Primary Visit Diagnosis:Chronic right shoulder pain [M25.511, G89.29] Other Visit Diagnoses:Aftercare following left shoulder joint replacement surgery [Z47.1, Z96.612] Glenohumeral arthrit (more content not included)... Normal [facility] XR SHLDR >/=3V AP/BLANCHE AP/OTH R LTon 10-15-2024 XR SHLDR >/=3V AP/BLANCEH AP/OTHR LT * * *Final Report* * * DATE [...] No acute fracture or dislocation. No malalignment. IMPRESSION: Arthroplasty without complication Port Crane Operator: WERO Transcribe Date/Time: Oct 15 2024 11:36P Dictated by : RIANNA BAUM MD This examination was interpreted and the report reviewed and electronically signed by: RIANNA BAUM MD on Oct 15 2024 11:37PM EST [id number] Normal [facility] XR Shoulder - left 3 Viewson 10-15-2024 IMPRESSION: Arthroplasty without complication Port Crane Operator: [facility] Transcribe Date/Time: Oct 15 2024 11:36P Dictated by : RIANNA BAUM MD This examination was interpreted and the report reviewed and electronically signed by: RIANNA BAUM MD on Oct 15 2024 11:37PM EST DIVISION OF RADIOLOGY * * *Final Report* * * DATE [...] No acute fracture or dislocation. No malalignment. DIVISION OF RADIOLOGY Provider, Sanna Roseann [facility] - 10/15/2024 * * *Final Report* * [...] No malalignment. IMPRESSION IMPRESSION: Arthroplasty without complication Port Crane Operator: WERO Transcribe Date/Time: Oct 15 2024 11:36P Dictated by : RIANNA BAUM MD This examination was interpreted and the report reviewed and electronically signed by: RIANNA BAUM MD on Oct 15 2024 11:37PM EST [facility] Radiology Study observation (narrative) [facility] XR Shoulder - left 3 ViewsOr dered By: Cc Provider on 10-15-2024 [facility] CNOVon 09-03-2024 CNOV Office Visit (ORAVON ) ----- TYLER TORRES ([id number]) 1945 M Date Time Provider Department 09/03/24 3:30 PM HUNG JACOBSEN During your visit today, we recorded the following information about you: Hung Jacobsen MD 09/03/2024 4:59 PM Signed SHOULDER/ELBOW ESTABLISHED VISIT SERVICE DATE: 09/03/2024 PCP: Armando Richards MD, MD Date of Surgery: 07/25/24 Surgery: Left reverse Total Shoulder Arthroplasty, biceps tenodesis Follow-up time: 6 WEEKS SUBJECTIVE HISTORY OF PRESENT ILLNESS: 79 year old male 6 weeks out from surgery, has been compliant with exercise and sling wear. Doing well. Pain well-controlled. ACTIVE PROBLEM LIST Chronic Right Shoulder Pain Type 2 Diabetes Mellitus Without Complication, Without Long-Term Current Use of Insulin ([facility]) Former Smoker Chronic Obstructive Pulmonary Disease (Hcc) Lumbar Stenosis With Neurogenic Claudication Status Post Lumbar Spinal Fusion Calculus of Kidney Elevated Bp Without Diagnosis of Hypertension Finding of Above Normal Blood Pressure Gastroesophageal Reflux Disease Without Esophagitis Diabetes Mellitus ([facility]) Mixed Hyperlipidemia Obstructive Sleep Apnea Syndrome Peripheral Venous Insufficiency Cva (Cerebral Vascular Accident) ([facility]) Carotid Stenosis ALLERGIES Allergen Reactions Simvastatin Unknown MEDICATIONS: acetaminophen (TYLENOL EXTRA STRENGTH) 500 mg tablet Take 2 tablets by mouth every 6 hours as needed for pain. for pain. aspirin, enteric coated (ASPIRIN, ENTERIC COATED) 81 mg EC tablet Take 1 tablet by mouth two times a day for 14 days. Then, resume home dose of 1 tablet once daily. rosuvastatin (CRESTOR) 20 mg tablet Take 20 mg by mouth every morning. lisinopril (ZESTRIL) 10 mg tablet Take 10 mg by mouth every morning. cyanocobalamin (VITAMIN B-12) 1,000 mcg tab Take 1,000 mcg by mouth once daily. MULTIVITAMIN ORAL Take by mouth once daily. esomeprazole (NEXIUM) 40 mg capsule DULoxetine (CYMBALTA) 30 mg capsule Take 30 mg by mouth. Melatonin 5 mg cap Take 5 mg by mouth. metFORMIN (GLUCOPHAGE) 500 mg tablet Take 500 mg by mouth. tamsulosin (FLOMAX) 0.4 mg Take 0.4 mg by mouth. OBJECTIVE There were no vitals taken for this visit. PHYSICAL EXAMINATION: Alert and oriented x3, ambulates easily to exam table without assistance, only using a cane now Painless neck ROM in all planes. Negative Spurling's. No radiating numbness or tingling past elbows. No visibile head, eyes, ear, neck, throat deformities Left shoulder active forward elevation to 70, passive to 100, external rotation to 20, good external rotation strength. Incision is well-healed. Axillary, Long Thoracic, CN XI, Median, Ulnar, Radial, musculocutaneous nerves intact to motor and sensation. Fingers warm and well perfused, BCR< 2sec. Radial Pulse 2+ RADIOGRAPHIC RESULTS: Imaging was personally reviewed by myself today X-rays of left shoulder show reverse shoulder place in good position. Unchanged in previous. No fracture or dislocation ASSESSMENT Left reverse shoulder replacement 6 weeks out doing well PLAN DIAGNOSIS: (Z47.1, Z96.612) Aftercare following left shoulder joint replacement surgery (primary encounter diagnosis) Will start all phase of stretching today, strengthening in 3 weeks. Will see him back in 6 weeks time for routine check. Will get a repeat right shoulder x-ray. Will discuss possibly right shoulder surgery depending how well his left side does. All questions were answered for patient today, they should not hesitate to call the office with any issues. Medical Decision Making: Medical Decision Making Level: 1 - N/A MD Augie Olivas Jason, MD 09/03/2024 4:14 PM Signed Overhead jarek for shoulder stretches. Or use a stick. Referring Provider: HUNG JACOBSEN [[id number]] Allergies As of Date: 09/03/2024 Noted Allergy Reaction SIMVASTATIN 05/10/2018 16 - Unknown Date Reviewed: 09/03/2024 Reviewed by: Elvira Valencia, ALIYAH - Fully Assessed Reason for Visit: Post Op [174] Primary Visit Diagnosis:Aftercare following left shoulder joint replacement surgery [Z47.1, Z96.612] Order(s):XR SHOULDER GENERAL 3V OR MORE AP/TRUE AP/OTHER LEFT [[id number]] Order #: [id number] FUTURE Prescriptions as of 09/03/2024 - acetaminophen (TYLENOL EXTRA STRENGTH) 500 mg tablet Take 2 tablets by mouth every 6 hours as needed for pain. for pain. - aspirin, enteric coated (ASPIRIN, ENTERIC COATED) 81 mg EC tablet Take 1 tablet by mouth two times a day for 14 days. Then, resume home dose of 1 tablet once daily. - rosuvastatin (CRESTOR) 20 mg tablet Take 20 mg by mouth every morning. - lisinopril (ZESTRIL) 10 mg tablet Take 10 mg by mouth every morning. - cyanocobalamin (VITAMIN B-12) 1,000 mcg tab Take 1,000 mcg by mouth once daily. - MULTIVITAMIN ORAL Take by mouth once daily. - esomeprazole (NEXIUM) 40 mg capsule - DULoxetine (CYMBAL (more content not included)... Normal [facility] XR SHLDR >/=3V AP/BLANCHE AP/OTH R LTon 09-03-2024 XR SHLDR >/=3V AP/BLANCHE AP/OTHR LT * * *Final Report* * * DATE OF EXAM: Sep 03 2024 2:33PM AFR 5252 - XR SHLDR >/=3V AP/BLANCHE AP/OTHR LT / PROCEDURE REASON: multiple diagnoses * * * * Physician Interpretation * * * * EXAMINATION: XR SHLDR >/=3V AP/BLANCHE AP/OTHR LT PATIENT/TECHNOLOGIST PROVIDED HISTORY: post op follow up CLINICAL INFORMATION ( PROVIDED BY ORDERING CLINICIAN) : Chronic left shoulder pain Chronic left shoulder pain TECHNIQUE: XR SHLDR >/=3V AP/BLANCHE AP/OTHR LT COMPARISON: 08/08/2024 RESULT: Postsurgical changes of reverse total shoulder arthroplasty without evidence of hardware related complication. No acute fracture or dislocation. Mild degenerative change of the acromioclavicular joint. IMPRESSION: Reverse total shoulder arthroplasty without complication. Port Crane Operator: [employer] Transcribe Date/Time: Sep 03 2024 8:07P Dictated by : UJDE OLIVEROS MD This examination was interpreted and the report reviewed and electronically signed by: JUDE OLIVEROS MD on Sep 03 2024 8:07PM EST [id number] Normal [facility] XR Shoulder - left 3 Viewson 09-03-2024 IMPRESSION: Reverse total shoulder arthroplasty without complication. Port Crane Operator: PSC[facility] Transcribe Date/Time: Sep 03 2024 8:07P Dictated by : JUDE OLIVEROS MD This examination was interpreted and the report reviewed and electronically signed by: JUDE OLIVEROS MD on Sep 03 2024 8:07PM EST DIVISION OF RADIOLOGY * * *Final Report* * * DATE OF EXAM: Sep 03 2024 2:33PM AFR 5252 - XR SHLDR >/=3V AP/BLANCHE AP/OTHR LT / PROCEDURE REASON: multiple diagnoses * * * * Physician Interpretation * * * * EXAMINATION: XR SHLDR >/=3V AP/BLANCHE AP/OTHR LT PATIENT/TECHNOLOGIST PROVIDED HISTORY: post op follow up CLINICAL INFORMATION ( PROVIDED BY ORDERING CLINICIAN) : Chronic left shoulder pain Chronic left shoulder pain TECHNIQUE: XR SHLDR >/=3V AP/BLANCHE AP/OTHR LT COMPARISON: 08/08/2024 RESULT: Postsurgical changes of reverse total shoulder arthroplasty without evidence of hardware related complication. No acute fracture or dislocation. Mild degenerative change of the acromioclavicular joint. DIVISION OF RADIOLOGY Provider, Howard Pinto - 09/03/2024 * * *Final Report* * * DATE OF EXAM: Sep 03 2024 2:33PM AFR 5252 - XR SHLDR >/=3V AP/BLANCHE AP/OTHR LT / PROCEDURE REASON: multiple diagnoses * * * * Physician Interpretation * * * * EXAMINATION: XR SHLDR >/=3V AP/BLANCHE AP/OTHR LT PATIENT/TECHNOLOGIST PROVIDED HISTORY: post op follow up CLINICAL INFORMATION ( PROVIDED BY ORDERING CLINICIAN) : Chronic left shoulder pain Chronic left shoulder pain TECHNIQUE: XR SHLDR >/=3V AP/BLANCHE AP/OTHR LT COMPARISON: 08/08/2024 RESULT: Postsurgical changes of reverse total shoulder arthroplasty without evidence of hardware related complication. No acute fracture or dislocation. Mild degenerative change of the acromioclavicular joint. IMPRESSION IMPRESSION: Reverse total shoulder arthroplasty without complication. Port Crane Operator: WERO Transcribe Date/Time: Sep 03 2024 8:07P Dictated by : JUDE OLIVEROS MD This examination was interpreted and the report reviewed and electronically signed by: JUDE OLIVEROS MD on Sep 03 2024 8:07PM EST [facility] Radiology Study observation (narrative) [facility] XR Shoulder - left 3 ViewsOr dered By: Cc Provider on 09-03-2024 [facility] CNOVon 08-27-2024 CNOV Office Visit (SPSNAV ) ----- TYLER TORRES ([id number]) 1945 M Date Time Provider Department 08/27/24 2:00 PM Mahesh SMALL SPSNAV During your visit today, we recorded the following information about you: Patty Fitzgerald MD 08/27/2024 3:33 PM Signed [facility] FOLLOW UP NOTE Encounter Date: 08/27/2024 History of present illness: Tyler Torres is a 79 year old male who returns to clinic today for 1-year follow-up s/p VINCE L3 to sacrum, L2 to ilium posterior segmental instrumentation, L5 laminectomy, and L5-S1 combined posterolateral and transforaminal lumbar interbody fusion on 08/25/[address] Small. Tyler Torres was last seen on 02/20/2024 for 6-month follow-up, at which time he was doing well making progress. Given shoulder pain, he was referred to Dr. Jacobsen, who performed Left reverse TSA on 07/25/2024. Tyler Torres reports he is doing well, and still walking 6 days per week though since his rTSA, he has had to transition to a cane from a walker and has decreased his distance to a quarter mile versus half mile. He has a persistent dull ache in his bilateral posterior thighs. Past Medical History PAST MEDICAL HISTORY Diagnosis Date COPD (chronic obstructive pulmonary disease) (HCC) Diabetes mellitus (HCC) GERD (gastroesophageal reflux disease) HLD (hyperlipidemia) HTN (hypertension) Kidney stone ROMEO (obstructive sleep apnea) Past Surgical History PAST SURGICAL HISTORY Procedure Laterality Date COLONOSCOPY SCREENING PAST SURGICAL HISTORY OF 09/14/2020 lumbar surgery x2 PAST SURGICAL HISTORY OF Right cyst removed from back by right shoulder PAST SURGICAL HISTORY OF testicle removed Social History Social History Tobacco Use Smoking status: Former Current packs/day: 0.00 Average packs/day: 0.5 packs/day for 15.0 years (7.5 ttl pk-yrs) Types: Cigarettes Start date: 1977 Quit date: 1992 Years since quittin.0 Smokeless tobacco: Never Tobacco comments: Quit years ago Substance Use Topics Alcohol use: Yes Alcohol/week: 2.0 standard drinks of alcohol Types: 2 Cans of Beer (12oz) per week Comment: 1 beer 2-3 days a week Drug use: Never Family History Not contributory to consult. Review of Systems Negative except for as otherwise noted in HPI. Physical Exam There were no vitals taken for this visit. AANDOx3, NAD Breathing comfortably at rest RRR to peripheral palpation Focused Musculoskeletal Exam Spine Exam There was a well healed midline surgical scar at the level of the lumbar spine that was well healed, and without surrounding erythema or drainage Sensation to light touch: Lower Extremities Right Left Medial upper thigh (L2) present present Medial knee (L3) diminshed diminshed Medial distal tibia (L4) present present Dorsum of first MTP (L5) present present Lateral heel (S1) present present Motor function: Lower Extremities Right Left Hip flexion (L2) 5/5 5/5 Knee extension (L3) 5/5 5/5 Ankle dorsiflexion (L4) 5/5 5/5 Great toe extension (L5) 5/5 5/5 Ankle plantarflexion (S1) 5/5 5/5 Long tract signs: Lower Extremities Right Left Spasticity Absent Absent Babinski Downgoing Downgoing Clonus Absent Absent INVESTIGATIONS Imaging Studies XR: hardware intact and unchanged from prior 09/2023 x-ray Assessment/Plan ASSESSMENT 79 year old male who returns to clinic today for 1-year follow-up s/p VINCE L3 to sacrum, L2 to ilium posterior segmental instrumentation, L5 laminectomy, and L5-S1 combined posterolateral and transforaminal lumbar interbody fusion on 08/25/[address] Small. Doing well, discussed persistent dull ache in bilateral thighs now 2 years out from initial surgery at OSH that resulted in L3 nerve injury, which is not likely to further improve at this point. PLAN Follow-up in 1 year for repeat outpatient evaluation Patty Fitzgerald MD Orthopaedic Surgery PGY-2 Mahesh Small MD 08/27/2024 3:33 PM Signed Arely is now 1 year out from surgery. He does get some back pain with prolonged standing or walking. He recently underwent left reverse total shoulder and is scheduled to undergo right sided in the future. On clinical exam he does standing positive sagittal balance about 5 cm. Normal coronal alignment. Overall he is doing quite well. His x-rays look good. He will continue with his activities as tolerated. I will see him back in 1 years time with new x-rays. 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 Normal [facility] XR SCOLIOSIS 2V PA STAND/LAT on 08-27-2024 XR SCOLIOSIS 2V PA STAND/LAT * * *Final Report* * * DATE OF EXAM: Aug 27 2024 2:18PM VHX 5251 - XR SCOLIOSIS 2V PA STAND/LAT / PROCEDURE REASON: multiple diagnoses * * * * Physician Interpretation * * * * XR SCOLIOSIS 2V PA STAND/LAT HISTORY: s/p spine surgery. S/P lumbar fusion Flat back syndrome, postprocedural Pseudarthrosis following spinal fusion . TECHNIQUE: AP and lateral scoliosis series (3 total films). COMPARISON: 10/10/2023 RESULT: Counting reference: Lumbosacral junction. For the purposes of this report, L5-S1 is considered the last lumbar type disc space and L4-5 is considered the level of the iliac crest. There is thoracolumbar fusion with combination of posterior fusion hardware and interbody bone grafting extending from T12 through the iliac bones bilaterally. Hardware is intact. No findings of hardware failure or loosening. There are degenerative changes throughout the thoracic spine predominantly involving the lower thoracic spine, most pronounced at T11-T12. Reverse left shoulder arthroplasty noted. IMPRESSION: Thoracolumbar fusion with intact hardware T12 through the iliac bones. Port Crane Operator: PSCB Transcribe Date/Time: Aug 28 2024 9:15A Dictated by : ADRIANA PÉREZ MD This examination was interpreted and the report reviewed and electronically signed by: ADRIANA PÉREZ MD on Aug 28 2024 9:17AM EST [id number] [facility] CNOVon 08-08-2024 CNOV Office Visit (OTMBHT ) ----- TYLER TORRES ([id number]) 1945 M Date Time Provider Department 08/08/24 1:20 PM TAMERA PINEDA During your visit today, we recorded the following information about you: Tamera Pineda APRN.[facility] 08/08/2024 4:22 PM Signed SHOULDER/ELBOW ESTABLISHED VISIT SERVICE DATE: 08/08/2024 PCP: Armando Richards MD, MD Date of Surgery: 07/25/24 Surgery: Left reverse Total Shoulder Arthroplasty 43027, biceps tenodesis 07176 Follow-up time: 2 weeks SUBJECTIVE HISTORY OF PRESENT ILLNESS: 79 year old male reports doing well, his general shoulder soreness controlled with occasional Tylenol and his twice a day oxycodone that he takes for his back and legs. He has been compliant with his sling use and hand, wrist, elbow exercises. Reports no issues with his incisions. Has some mild finger/hand swelling, wants his UltraSling readjusted is the arm is a little lower in the sling then it has been. Reports he is having no GI/ issues Denies any fever, chills, night sweats or malaise ACTIVE PROBLEM LIST Chronic Right Shoulder Pain Type 2 Diabetes Mellitus Without Complication, Without Long-Term Current Use of Insulin ([facility]) Former Smoker Chronic Obstructive Pulmonary Disease ([facility]) Lumbar Stenosis With Neurogenic Claudication Status Post Lumbar Spinal Fusion Calculus of Kidney Elevated Bp Without Diagnosis of Hypertension Finding of Above Normal Blood Pressure Gastroesophageal Reflux Disease Without Esophagitis Diabetes Mellitus ([facility]) Mixed Hyperlipidemia Obstructive Sleep Apnea Syndrome Peripheral Venous Insufficiency Cva (Cerebral Vascular Accident) ([facility]) Carotid Stenosis ALLERGIES Allergen Reactions Simvastatin Unknown MEDICATIONS: acetaminophen (TYLENOL EXTRA STRENGTH) 500 mg tablet Take 2 tablets by mouth every 6 hours as needed for pain. for pain. aspirin, enteric coated (ASPIRIN, ENTERIC COATED) 81 mg EC tablet Take 1 tablet by mouth two times a day for 14 days. Then, resume home dose of 1 tablet once daily. Docusate Sodium 100 mg tab Take 1 tablet by mouth every morning. For constipation prevention. Ensure you take while taking opioid medication. May hold for diarrhea. rosuvastatin (CRESTOR) 20 mg tablet Take 20 mg by mouth every morning. lisinopril (ZESTRIL) 10 mg tablet Take 10 mg by mouth every morning. cyanocobalamin (VITAMIN B-12) 1,000 mcg tab Take 1,000 mcg by mouth once daily. MULTIVITAMIN ORAL Take by mouth once daily. esomeprazole (NEXIUM) 40 mg capsule DULoxetine (CYMBALTA) 30 mg capsule Take 30 mg by mouth. Melatonin 5 mg cap Take 5 mg by mouth. metFORMIN (GLUCOPHAGE) 500 mg tablet Take 500 mg by mouth. tamsulosin (FLOMAX) 0.4 mg Take 0.4 mg by mouth. OBJECTIVE There were no vitals taken for this visit. PHYSICAL EXAMINATION: Alert and oriented x3, ambulates easily to exam table without assistance Painless neck ROM in all planes. Negative Spurling's. No radiating numbness or tingling past elbows. No visibile head, eyes, ear, neck, throat deformities Left shoulder Incision dry and intact without erythema, tenderness, warmth or fresh drainage, has some dried drainage surrounding incision. Mild finger and hand swelling. Mild shoulder swelling Full active range of motion at all fingers, wrist, elbow Axillary, Long Thoracic, CN XI, Median, Ulnar, Radial, musculocutaneous nerves intact to motor and sensation. Fingers warm and well perfused, BCR< 2sec. Radial Pulse 2+ RADIOGRAPHIC RESULTS: Imaging was personally reviewed by myself today No fracture or dislocation noted, implants in good position, with intact articulation of the glenoid sphere and humeral stem ASSESSMENT/ DIAGNOSIS: 2 weeks postop with no evidence of DVT or infection PLAN Tegaderm removed from patient's incision, tolerated well, instructed may get incision wet and let water and soap run over the incision but to refrain from scrubbing it. Continue nonweightbearing Continue hand, wrist, elbow exercises Start pendulum exercises, instructions and handouts given to patient To return in 4 weeks at the 6 weeks lalo from surgery with Dr. Jacobsen with x-rays first All questions were answered for patient today, they should not hesitate to call the office with any issues. I spent a total of 20 minutes on the date of the service which included preparing to see the patient, [id number] patient care, completing clinical documentation, obtaining and/or reviewing separately obtained history, performing a medically appropriate examination, counseling and educating the patient/family/caregiver, ordering medications, tests, or procedures, and communicating with other HCPs (not separately reported). Tamera Pineda APRN, MIRYAM Pineda, Tamera Sherwood APRN.MIRYAM 08/08/2024 1:29 PM Signed Restart celebrex tomorrow when you drop down to your regular dose of baby (more content not included)... Normal [facility] XR SHLDR >/=3V AP/BLANCHE AP/OTH R LTon 08-08-2024 XR SHLDR >/=3V AP/BLANCHE AP/OTHR LT * * *Final Report* * * DATE OF EXAM: Aug 08 2024 12:46PM M2X 5252 - XR SHLDR >/=3V AP/BLANCHE AP/OTHR LT / PROCEDURE REASON: multiple diagnoses * * * * Physician Interpretation * * * * EXAMINATION / TECHNIQUE: XR SHLDR >/=3V AP/BLANCHE AP/OTHR LT HISTORY: 2 Week Post-Op LT Shoulder Chronic left shoulder pain Chronic left shoulder pain COMPARISON: 07/25/2024 RESULT: Postoperative changes of reverse left total shoulder arthroplasty. Hardware is intact without evidence of failure or loosening. Bony alignment is unchanged. Postoperative soft tissue gas has resolved. No other significant change. IMPRESSION: Reverse total shoulder arthroplasty without complication. Port Crane Operator: WERO Transcribe Date/Time: Aug 08 2024 1:24P Dictated by : ALCIDES BARKSDALE MD This examination was interpreted and the report reviewed and electronically signed by: ALCIDES BARKSDALE MD on Aug 08 2024 1:25PM EST [id number] Normal [facility] XR Shoulder - left 3 Viewson 08-08-2024 IMPRESSION: Reverse total shoulder arthroplasty without complication. Port Crane Operator: WERO Transcribe Date/Time: Aug 08 2024 1:24P Dictated by : ALCIDES BARKSDALE MD This examination was interpreted and the report reviewed and electronically signed by: ALCIDES BARKSDALE MD on Aug 08 2024 1:25PM EST DIVISION OF RADIOLOGY * * *Final Report* * * DATE OF EXAM: Aug 08 2024 12:46PM M2X 5252 - XR SHLDR >/=3V AP/BLANCHE AP/OTHR LT / PROCEDURE REASON: multiple diagnoses * * * * Physician Interpretation * * * * EXAMINATION / TECHNIQUE: XR SHLDR >/=3V AP/BLANCHE AP/OTHR LT HISTORY: 2 Week Post-Op LT Shoulder Chronic left shoulder pain Chronic left shoulder pain COMPARISON: 07/25/2024 RESULT: Postoperative changes of reverse left total shoulder arthroplasty. Hardware is intact without evidence of failure or loosening. Bony alignment is unchanged. Postoperative soft tissue gas has resolved. No other significant change. DIVISION OF RADIOLOGY Provider, [facility] - 08/08/2024 * * *Final Report* * * DATE OF EXAM: Aug 08 2024 12:46PM M2X 5252 - XR SHLDR >/=3V AP/BLANCHE AP/OTHR LT / PROCEDURE REASON: multiple diagnoses * * * * Physician Interpretation * * * * EXAMINATION / TECHNIQUE: XR SHLDR >/=3V AP/BLANCHE AP/OTHR LT HISTORY: 2 Week Post-Op LT Shoulder Chronic left shoulder pain Chronic left shoulder pain COMPARISON: 07/25/2024 RESULT: Postoperative changes of reverse left total shoulder arthroplasty. Hardware is intact without evidence of failure or loosening. Bony alignment is unchanged. Postoperative soft tissue gas has resolved. No other significant change. IMPRESSION IMPRESSION: Reverse total shoulder arthroplasty without complication. Port Crane Operator: WERO Transcribe Date/Time: Aug 08 2024 1:24P Dictated by : ALCIDES BARKSDALE MD This examination was interpreted and the report reviewed and electronically signed by: ALCIDES BARKSDALE MD on Aug 08 2024 1:25PM EST [facility] Radiology Study observation (narrative) [facility] XR Shoulder - left 3 ViewsOr dered By: [facility] Provider on 08-08-2024 [facility] CASE MGT INIT NATACHAyvonne 2023 CASE MGT INIT NATACHA HNO ID: [id number] Author: ALIS CARDENAS RN Service: ? Author Type: Registered Nurse Type: Care Mgt Initial Assessment Filed: 07/26/2024 14:49 Note Text: CARE MANAGEMENT: ASSESSMENT AND DISCHARGE PLAN SERVICE DATE: July 26, 2024 SERVICE TIME: 2:49 PM PCP: Armando Richards MD, MD Primary Contact: Extended Emergency Contact Information Primary Emergency Contact: GENNY SANCHEZ Mobile Relation: Significant other Admission Status: Ambulatory Surgery Insurance Provider: MEDICARE A AND B This patient has been screened for Care Management Transitional Planning Services. At this time, it does not appear this patient will require transition planning services. Should this change, and the patient require transition planning services during this admission, please contact Case Management. SIGNATURE: Alis Cardenas RN PATIENT NAME: Tyler oTrres DATE: July 26, 2024 TIME: 2:48 PM Normal [facility] CBC panel Auto (Bld)on 07-26 Erythrocyte distribution width (RBC) [Ratio] 13.8 % Normal 11.5-15.0 [facility] Comment on above: Order Comment: Speci men Type: BLOOD SPECIMENOrdering Facility: [facility] Address: [address] [place] [address] Performed By: #### 5 8410-2 ####[facility] LABCLIA [id number] [place] [address] [place] Hematocrit (Bld) [Volume fraction] 31.2 % Low 39.0-51.0 [facility] Comment on above: Order Comment: Chris barajas Type: BLOOD SPECIMENOrdering Facility: [facility] Address: [address] [place] [address] Performed By: #### 5 8410-2 ####[facility] LABCLIA [id number] [place] [address] [place] Hemoglobin (Bld) [Mass/Vol] 10.1 g/dL Low 13.0-17.0 [facility] Comment on above: Order Comment: Kelseyi karl Type: BLOOD SPECIMENOrdering Facility: [facility] Address: [address] [place] [address] Performed By: #### 5 8410-2 ####[facility] LABCLIA [id number] [place] [address] [place] MCH (RBC) [Entitic mass] 29.8 pg Normal 26.0-34.0 [facility] Comment on above: Order Comment: Speci men Type: BLOOD SPECIMENOrdering Facility: [facility] Address: [address] [place] [address] Performed By: #### 5 8410-2 ####[facility] LABIA [id number] [place] [address] [place] MCHC (RBC) [Mass/Vol] 32.4 g/dL Normal 30.5-36.0 [facility] Comment on above: Order Comment: Speci men Type: BLOOD SPECIMENOrdering Facility: [facility] Address: [address] [place] [address] Performed By: #### 5 8410-2 ####[facility] [id number] [place] [address] [place] MCV (RBC) [Entitic vol] 92.0 fL Normal 80.0-100.0 [facility] Comment on above: Order Comment: Speci men Type: BLOOD SPECIMENOrdering Facility: [facility] Address: [address] [place] [address] Performed By: #### 5 8410-2 ####[facility] LABIA [id number] [place] [address] [place] Nucleated RBC (Bld) [#/Vol] 10*3/uL Normal <0.01 [facility] Comment on above: Order Comment: Speci men Type: BLOOD SPECIMENOrdering Facility: [facility] Address: [address] [place] [address] Performed By: #### 5 8410-2 ####[facility] LABIA [id number] [place] [address] [place] Platelet mean volume (Bld) [Entitic vol] 9.7 fL Normal 9.0-12.7 [facility] Comment on above: Order Comment: Speci men Type: BLOOD SPECIMENOrdering Facility: [facility] Address: [address] [place] [address] Performed By: #### 5 8410-2 ####[facility] LABIA [id number] [place] [address] [place] Platelets (Bld) [#/Vol] 191 10*3/uL Normal 150-400 [facility] Comment on above: Order Comment: Speci men Type: BLOOD SPECIMENOrdering Facility: [facility] Address: [address] [place] [address] Performed By: #### 5 8410-2 ####[facility] LABIA [id number] [place] [address] [place] RBC (Bld) [#/Vol] 3.39 10*6/uL Low 4.20-6.00 [facility] Comment on above: Order Comment: Speci men Type: BLOOD SPECIMENOrdering Facility: [facility] Address: [address] [place] [address] Performed By: #### 5 8410-2 ####[facility] LABIA [id number] [place] [address] [place] WBC (Bld) [#/Vol] 6.43 10*3/uL Normal 3.70-11.00 [facility] Comment on above: Order Comment: Speci men Type: BLOOD SPECIMENOrdering Facility: [facility] Address: [address] [place] [address] Performed By: #### 5 8410-2 ####[id number] [address] [place] CNDSon 07-26-2024 CNDS HNO ID: [id number] Author: DANIEL ZUNIGA MD Service: Orthopaedic Surgery Author Type: Resident Type: Discharge Summary Filed: 07/26/2024 18:48 Note Text: ----- Attestation signed by Hung Jacobsen MD at 07/26/2024 8:14 PM Hung Jacobsen MD ----- ORTHOPEDIC SURGERY DISCHARGE SUMMARY ADMISSION DATE: 07/25/2024 DISCHARGE DATE: 07/26/2024 Attending Physician: Hung Jacobsen MD Reason for Hospitalization: Elective L reverse total shoulder arthroplasty Admitting Diagnosis: Advanced left glenohumeral arthritis Discharge Diagnosis: Same Additional Diagnoses: ACTIVE PROBLEM LIST Chronic Right Shoulder Pain Type 2 Diabetes Mellitus Without Complication, Without Long-Term Current Use of Insulin ([facility]) Former Smoker Chronic Obstructive Pulmonary Disease ([facility]) Lumbar Stenosis With Neurogenic Claudication Status Post Lumbar Spinal Fusion Calculus of Kidney Elevated Bp Without Diagnosis of Hypertension Finding of Above Normal Blood Pressure Gastroesophageal Reflux Disease Without Esophagitis Diabetes Mellitus ([facility]) Mixed Hyperlipidemia Obstructive Sleep Apnea Syndrome Peripheral Venous Insufficiency Cva (Cerebral Vascular Accident) ([facility]) Carotid Stenosis Surgeries During Hospitalization: Procedure(s) (LRB): ARTHROPLASTY REPLACE JOINT TOTAL SHOULDER (Left) Consultations: Occupational Therapy Case Management Pain Management Hospital Course: The patient is a 79 year old male who has been followed by Dr. Jacobsen in clinic for shoulder arthritis. It was determined he would benefit from shoulder arthroplasty. The procedure, its risks, benefits, and potential complications were discussed in detail with the patient prior to surgery. Understanding of all topics was conveyed by the patient, and consent was given for surgery. The patient was electively admitted to the [facility] on 07/25/2024. Surgery was scheduled and on 07/25/2024 he underwent the above procedure(s) under general anesthesia. The procedure was tolerated well and he was sent to the post operative recovery room in stable condition. The patient was subsequently sent to his hospital room for postoperative management. Once on the floor his postoperative course was unremarkable. His diet was advanced which he tolerated. His pain was well controlled on multimodal pain medications as well as a peripheral nerve catheter which were continued at discharge. He worked with Occupational Therapy who recommended he be discharged home. His dressing remained clean dry and intact throughout his stay. He remained afebrile with stable vital signs throughout his stay. He was stable for discharge to home on POD#1. Complete and comprehensive discharge instructions were provided to the patient as well as necessary prescriptions. The patient had no further questions and was advised to call with any questions, concerns, or problems. Patient was hemodynamically stable postoperatively. Relevant labs included: Hemoglobin (g/dL) Date Value 07/22/2024 13.2 08/26/2023 10.5 (L) 08/25/2023 10.6 (L) Hematocrit (%) Date Value 07/22/2024 41.1 08/26/2023 32.0 (L) 08/25/2023 33.6 (L) - Transfers: PACU and then to the hospital surgical floor when PACU criteria was met. - Discharge Antibiotics: Ancef for 24 hours post op, no outpatient antibiotics - DVT Prophylaxis: ASA 81mg BID x2 weeks - Pain Control: Scheduled PO Tylenol, PO oxycodone PRN - Discharge Activity/Weight Bearing Status: NWJo Ann SOSA in ultrasling Complications: Continued throughout the hospital course without complications. Other Information: N/A Patient Condition @ Discharge: Stable Discharge Disposition: Home with Relative The patient was instructed to follow-up as scheduled below Future Appointments Date Time Provider Department Center 08/08/2024 1:00 PM XR [facility] 1 [facility] 08/08/2024 1:20 PM Tamera Pineda, CONVEYOR TECHNICIAN.[facility] F 08/27/2024 2:00 PM Mahesh Small MD SPSNAV Rej 09/03/2024 3:00 PM XR [facility]THO [facility] REJ RGORAV Rej 09/03/2024 3:30 PM Hung Jacobsen MD ORAVON Rej Discharge Medications: Medication List START taking these medications acetaminophen 500 mg tablet Commonly known as: TYLENOL EXTRA STRENGTH Take 2 tablets by mouth every 6 hours as needed for pain. for pain. CHANGE how you take these medications aspirin, enteric coated 81 mg EC tablet Commonly known as: ASPIRIN, ENTERIC COATED Take 1 tablet by mouth two times a day for 14 days. Then, resume home dose of 1 tablet once daily. What changed: when to take this additional instructions Docusate Sodium 100 mg Tab Take 1 tablet by mouth every morning. For constipation prevention. Ensure you take while taking opioid medication. May hold for diarrhea. What changed: additional instructions oxyCO (more content not included)... Normal [facility] 07-26-2024 CNPN Telephone (PAINMN) ----- TYLER TORRES ([id number]) 1945 M Date Time Provider Department 07/26/24 SANDOR COPE PAINMN During your visit today, we recorded the following information about you: Sandor Cope APRN.MIRYAM 07/27/2024 1:46 PM Addendum DOS - 07/25/2024. Type of Surgery L TSA . Surgeon - Dr. Jacobsen Catheter site - Left interscalene Solution Ropi 0.2%. Rates 11/16/59. Phone number [phone] July 27, 2024 1:42 PM Called and talked to pt, states pain level is: 5/10 The pump reads: 872.1 Pt states catheter dressing is intact, denies: redness, fever, draining, edema, pain Does pt c/o SOB, hoarse voice, difficulty swallowing No Denies c/o metallic taste in mouth, ringing in ears, dizziness etc. Pt is able to move: fingers Will call pt again Monday Comments: Continue Sandor Cope APRN.OFFSHORING MANAGER Heather Metcalf RN 07/29/2024 11:29 AM Signed DOS - 07/25/2024. Type of Surgery L TSA . Surgeon - Dr. Jacobsen Catheter site - Left interscalene Solution Ropi 0.2%. Rates 11/16/59. Phone number [phone] 07/29 Called and talked to pt, states pain level is: 3 The pump reads: 641.1 Pt states catheter dressing is intact, denies: redness, fever, draining, edema, pain Does pt c/o SOB, hoarse voice, difficulty swallowing No Denies c/o metallic taste in mouth, ringing in ears, dizziness etc. Pt is able to move: fingers Comments: Catheter is to come out tomorrow. Will call tomorrow to follow up. Alice Spicer RN 07/30/2024 11:33 AM Signed DOS - 07/25/2024. Type of Surgery L TSA . Surgeon - Dr. Jacobsen Catheter site - Left interscalene Solution Ropi 0.2%. Rates 11/16/59. Phone number [phone] 07/30 Called and talked to pt, states pump is shut off and will remove this afternoon. Will call patient again tomorrow. Alice Spicer RN 07/31/2024 9:34 AM Signed DOS - 07/25/2024. Type of Surgery L TSA . Surgeon - Dr. Jacobsen Catheter site - Left interscalene Solution Ropi 0.2%. Rates 11/16/59. Phone number [phone] 07/31 Called and spoke with patient. Pump discontinued and catheter removed yesterday without difficulty. Site is unremarkable. Allergies As of Date: 07/26/2024 Noted Allergy Reaction SIMVASTATIN 05/10/2018 16 - Unknown Date Reviewed: 07/26/2024 Reviewed by: Jasen Baker, ALIYAH - Fully Assessed Prescriptions as of 07/31/2024 - acetaminophen (TYLENOL EXTRA STRENGTH) 500 mg tablet Take 2 tablets by mouth every 6 hours as needed for pain. for pain. - aspirin, enteric coated (ASPIRIN, ENTERIC COATED) 81 mg EC tablet Take 1 tablet by mouth two times a day for 14 days. Then, resume home dose of 1 tablet once daily. - Docusate Sodium 100 mg tab Take 1 tablet by mouth every morning. For constipation prevention. Ensure you take while taking opioid medication. May hold for diarrhea. - oxyCODONE IR (ROXICODONE) 5 mg immediate release tablet Take 1 tablet by mouth every 6 hours as needed for pain for up to 7 days. - rosuvastatin (CRESTOR) 20 mg tablet Take 20 mg by mouth every morning. - lisinopril (ZESTRIL) 10 mg tablet Take 10 mg by mouth every morning. - cyanocobalamin (VITAMIN B-12) 1,000 mcg tab Take 1,000 mcg by mouth once daily. - MULTIVITAMIN ORAL Take by mouth once daily. - esomeprazole (NEXIUM) 40 mg capsule - DULoxetine (CYMBALTA) 30 mg capsule Take 30 mg by mouth. - Melatonin 5 mg cap Take 5 mg by mouth. - metFORMIN (GLUCOPHAGE) 500 mg tablet Take 500 mg by mouth. - tamsulosin (FLOMAX) 0.4 mg Take 0.4 mg by mouth. Problem List As Of Date 07/26/2024 Noted Resolved Chronic right shoulder pain [M25.511, G89.29] 03/13/2023 Type 2 diabetes mellitus without complication, *07/31/2023 Former smoker [Z87.891] 07/31/2023 Chronic obstructive pulmonary disease (HCC) [J4*07/31/2023 Lumbar stenosis with neurogenic claudication [M*08/24/2023 Status post lumbar spinal fusion [Z98.1] 08/24/2023 Calculus of kidney [N20.0] 11/03/2021 Elevated BP without diagnosis of hypertension [*03/24/2024 Finding of above normal blood pressure [R03.0] 07/22/2024 Gastroesophageal reflux disease without esophag*09/15/2020 Diabetes mellitus (HCC) [E11.9] 09/15/2020 Mixed hyperlipidemia [E78.2] 09/15/2020 Obstructive sleep apnea syndrome [G47.33] 09/15/2020 Peripheral venous insufficiency [I87.2] 01/04/2023 CVA (cerebral vascular accident) (HCC) [I63.9] 07/22/2024 Carotid stenosis [I65.29] 07/22/2024 Encounter Status:Closed by ALICE SPICER on 07/31/24 Normal [facility] Comprehensive metabolic 2000 panelon 07-26-2024 Albumin [Mass/Vol] 3.0 g/dL Low 3.9-4.9 [facility] Comment on above: Order Comment: Speci men Type: BLOOD SPECIMENOrdering Facility: [facility] Address: [address] [place] [address] [place] [address] Performed By: #### 2 4323-8 ####[facility] LABCLIA [id number] [place] [address] [place] ALP [Catalytic activity/Vol] 55 U/L Normal 38-113 [facility] Comment on above: Order Comment: Speci men Type: BLOOD SPECIMENOrdering Facility: [facility] Address: [address] [place] [address] Performed By: #### 2 4323-8 ####[facility] LABCLIA [id number] [place] [address] [place] ALT [Catalytic activity/Vol] 13 U/L Normal 10-54 [facility] Comment on above: Order Comment: Speci men Type: BLOOD SPECIMENOrdering Facility: [facility] Address: [address] [place] [address] Performed By: #### 2 4323-8 ####[facility] LABCLIA [id number] [place] [address] [place] Anion gap [Moles/Vol] 8 mmol/L Normal 8-15 [facility] Comment on above: Order Comment: Speci men Type: BLOOD SPECIMENOrdering Facility: [facility] Address: [address] [place] [address] Performed By: #### 2 4323-8 ####[facility] LABCLIA [id number] [place] [address] [place] AST [Catalytic activity/Vol] 17 U/L Normal 14-40 [facility] Comment on above: Order Comment: Speci men Type: BLOOD SPECIMENOrdering Facility: [facility] Address: [address] [place] [address] Performed By: #### 2 4323-8 ####[facility] LABCLIA [id number] [place] [address] [place] Bilirubin [Mass/Vol] 0.3 mg/dL Normal 0.2-1.3 [facility] Comment on above: Order Comment: Speci men Type: BLOOD SPECIMENOrdering Facility: [facility] Address: [address] [place] [address] Performed By: #### 2 4323-8 ####[facility] LABCLIA [id number] [address] [address] [place] Calcium [Mass/Vol] 8.9 mg/dL Normal 8.5-10.2 [facility] Comment on above: Order Comment: Speci men Type: BLOOD SPECIMENOrdering Facility: [facility] Address: [address] [place], [place] [id number] Performed By: #### 2 4323-8 ####[facility] LABCLIA [id number] [address] [address] [place] Chloride [Moles/Vol] 105 mmol/L Normal 98-107 [facility] Comment on above: Order Comment: Speci men Type: BLOOD SPECIMENOrdering Facility: [facility] Address: [address] [place] [id number] Performed By: #### 2 4323-8 ####[facility] LABCLIA [id number] [place] [address] [place] CO2 [Moles/Vol] 24 mmol/L Normal 22-30 [facility] Comment on above: Order Comment: Speci men Type: BLOOD SPECIMENOrdering Facility: [facility] Address: [address] [place] [address] Performed By: #### 2 4323-8 ####[facility] LABCLIA [id number] [address] [address] [place] Creatinine [Mass/Vol] 0.83 mg/dL Normal 0.73-1.22 [facility] Comment on above: Order Comment: Speci men Type: BLOOD SPECIMENOrdering Facility: [facility] Address: [address] [place] [address] Performed By: #### 2 4323-8 ####[facility] LABCLIA [id number] [place] [address] [place] Creatinine and Glomerular filtration rate.predicted panel (S/P/Bld) 88 mL/min/1.73m??? Normal >=60 [facility] Comment on above: Order Comment: Chris barajas Type: BLOOD SPECIMENOrdering Facility: [facility] Address: [address] [place] [address] Result Comment: Thuy mated Glomerular Filtration Rate (eGFR) is calculated using the 2020 CKD-EPI creatinine equation. This equation utilizes serum creatinine, sex, and age as parameters. The creatinine assay has traceable calibration to isotope dilution-mass spectrometry. Refer to KDIGO guidelines for clinical interpretation. In patients with unstable renal function, e.g. those with acute kidney injury, the eGFR may not accurately reflect actual GFR. Performed By: #### 2 4323-8 ####[facility] LABIA [id number] [place] [address] [place] Glucose [Mass/Vol] 128 mg/dL High 74-99 [facility] Comment on above: Order Comment: Chris barajas Type: BLOOD SPECIMENOrdering Facility: [facility] Address: [address] [place] [address] Result Comment: The [place] [employer] (ADA) provides guidance for cutoff [...] Standards of Medical Care in Diabetes 2016, [place] [employer]. Diabetes Care. 2016.39(Suppl 1). Performed By: #### 2 4323-8 ####[facility] LABIA [id number] [place] [address] [place] Potassium [Moles/Vol] 4.0 mmol/L Normal 3.7-5.1 [facility] Comment on above: Order Comment: Speci men Type: BLOOD SPECIMENOrdering Facility: [facility] Address: [address] [place] [address] Performed By: #### 2 4323-8 ####[facility] LABCLIA [id number] [place] [address] [place] Protein [Mass/Vol] 4.9 g/dL Low 6.3-8.0 [facility] Comment on above: Order Comment: Speci men Type: BLOOD SPECIMENOrdering Facility: [facility] Address: [address] [place] [address] Performed By: #### 2 4323-8 ####[facility] LABCLIA [id number] [place] [address] [place] Sodium [Moles/Vol] 137 mmol/L Normal 136-144 [facility] Comment on above: Order Comment: Speci men Type: BLOOD SPECIMENOrdering Facility: [facility] Address: [address] [place], [place] [address] Performed By: #### 2 4323-8 ####[facility] LABCLIA [id number] [place] [address] [place] Urea nitrogen [Mass/Vol] 16 mg/dL Normal 9-24 [facility] Comment on above: Order Comment: Speci men Type: BLOOD SPECIMENOrdering Facility: [facility] Address: [address] [place] [address] Performed By: #### 2 4323-8 ####[facility] LABCLIA [id number] [place] [id number] [place] NURSING PROGon 07-26-2024 NURSING PROG HNO ID: [id number] Author: JASEN BAKER RN Service: ? Author Type: Registered Nurse Type: Nursing Progress Note Filed: 07/26/2024 15:37 Note Text: Other: 0920-pt up at bedside with nursing. pain low to shoulder. nerve catheter maintained. dc planned today Normal [facility] THERAPY NTon 07-26-2024 THERAPY NT HNO ID: [id number] Author: GREGOR BOCANEGRA OTR/L Service: Occupational Therapy Author Type: [employer] Type: Therapy (PT/OT/Speech/Resp) Filed: 08/09/2024 07:42 Note Text: ----- Attestation signed by Gregor Bocanegra OTR/L at 08/09/2024 7:42 AM I reviewed and agree with the documentation corresponding to this therapy visit. SIGNATURE: HAI Granda DATE: August 09, 2024 TIME: 7:42 AM ----- Occupational Therapy Treatment Summary SERVICE DATE: 07/26/2024 SERVICE TIME: 1505 to 1544 ROOM: [place] [address] OT 6 Clicks Score: 19 Total Joint Replacement Discharge Readiness: Cleared from Occupational Therapy DISCHARGE RECOMMENDATIONS Home OT Anticipated Discharge Needs: Physical Assist at Home, Supervision at Home Physical Assist at Home for: Cleaning, Laundry, Meals, Safety, Self Care Supervision at Home due to: Decreased safety awareness ASSESSMENT Response to Therapy Interventions: Good Participation in Activities, Improved Tolerance for Activity PRECAUTIONS Weight Bearing Restrictions No shoulder ROM, okay for hand/wrist/elbow ROM Left Upper Extremity Weight Bearing Status: NWB CURRENT HOSPITAL COURSE L RTSA on 07/[address] Jacobsen Relevant Past Medical History: DM, COPD, lumbar stenosis HOME LIVING Patient Lives With: Significant Other Assistance Available: 24-Hour Entry To Home: Stairs Number Of Stairs Into Home: 1 (threshold) Number Of Stairs To Bed/Bath: 0 Tub/Shower Type: tub-shower Laundry: s/o can assist Equipment Owned: Cane, Walker- Wheeled, Grab Bars- Shower, Shower Chair PRIOR FUNCTIONAL LEVEL Within Functional Limits, History of Falls Pt reporting no AD in home. Cane for short distance. WW for far distance. IND with ADLs, assist with IADLs. Baseline Cognition: Oriented to self, Oriented to place, Oriented to time, Oriented to situation SUBJECTIVE I feel confident going home and managing. COGNITION Responsiveness: Alert, Awake Follows Commands: 3-step Commands Memory Deficits: Recall of Precautions Cog 6 Start of Session Total Points (Max Score = 24): 24 (07/26/24) Cog 6 End of Session Total Points (Max Score = 24): 24 (07/26/24) 4AT Score: 0 (07/26/24) Delirium Positive/Negative: Negative (07/26/24) THERAPY DIAGNOSIS Reduced mobility-other, Decreased activities of daily living (ADL), Muscle Weakness (generalized), General symptoms and signs-other TREATMENT INTERVENTIONS Self Senior Care Management (84339) Timed Code Treatment (minutes): 39 Skilled Treatment Time (minutes): 39 TRAINING AND EDUCATION PROVIDED Activity Adaptation/Compensatory Strategies, Bed Mobility, Benefits of In-Hospital Mobility, Discharge Planning, Energy Conservation, Functional Mobility Involving ADLs, Grooming Tasks, Insight into Deficits, Lower Extremity Dressing, Positioning, Precautions/Restrictions, Role of Occupational Therapy, Safety/Judgment, Sling/Brace Management, Toileting , Transfer - Bed to Chair, Transfer - Sit to Stand, Transfer - Toilet/Commode, Treatment Protocol, Upper Extremity Dressing THERAPEUTIC SKILLS USED Activity Dosing, Cues for Sequencing/Proper Technique for Activity, Cuing Tactile, Cuing Verbal, Cuing Visual, Physical Assist, Repetitive Task Learning, Task Analysis Learning, Teach-Back for Education FUNCTIONAL STATUS Activities of Daily Living Assist Level Additional Information Feeding Set Up Grooming Stand By Assistance, Supervision (In stance at sink with cues for sequencing/motor planning/precautions.) Bathing Upper Body Moderate Assistance Bathing Lower Body Maximal Assistance Dressing Upper Body Minimal Assistance (Two trials for donning/doffing button down shirt with cues for adherence of precautions.) Dressing Lower Body Moderate Assistance, Minimal Assistance Toileting Modified Independent Mobility Assist Level Additional Information Bed Mobility Rolling: Moderate Assistance (to R) Supine To Sit: Stand By Assistance, Supervision Sit To Supine: Stand By Assistance, Supervision Sit to Stand Supervision, Verbal Cues Only Stand to Sit Supervision, Verbal Cues Only Bed to Chair Stand By Assistance Bed To Chair Transfer Type: Stepping Toilet/Commode Stand By Assistance Shower Functional Mobility Stand By Assistance Functional Mobility Device: None Bathroom/doorway GOALS Patient will demonstrate progress with self-care, cognitive and/or coping needs identified to allow safe discharge to home with available support and/or physical assistance. Progress Toward Goals: Progressing as expected Rehab Potential: Good PLAN OT Frequency: Once Daily Treatment Interventions: Education, Self Care/Home Management, Energy Conservation Training, Functional Mobility Training Plan for Next Visit: Bathing Training, B (more content not included)... [facility] THERAPY NT HNO ID: [id number] Author: TIM CLARK, PT, DPT Service: Physical Therapy Author Type: Physical Therapist Type: Therapy (PT/OT/Speech/Resp) Filed: 07/26/2024 13:41 Note Text: Physical Therapy Evaluation Summary SERVICE DATE: 07/26/2024 SERVICE TIME: 1300 to 1330 ROOM: [place] [address] PT 6 Clicks Score: 21 Total Joint Replacement Discharge Readiness: Cleared from Physical Therapy DISCHARGE RECOMMENDATIONS Home ASSESSMENT Response to Therapy Interventions: Good Participation in Activities The patient is near his baseline with ambulation. Educated the patient on post surgical precautions and discussed the importance of not using his left arm. Recommend home with assist from family as needed. No skilled PT needs at this time. PRECAUTIONS Weight Bearing Restrictions No shoulder ROM, okay for hand/wrist/elbow ROM Left Upper Extremity Weight Bearing Status: NWB CURRENT HOSPITAL COURSE L RTSA on 07/[address] Jacobsen Relevant Past Medical History: DM, COPD, lumbar stenosis HOME LIVING Patient Lives With: Significant Other Assistance Available: 24-Hour Entry To Home: Stairs Number Of Stairs Into Home: 1 (threshold) Number Of Stairs To Bed/Bath: 0 Tub/Shower Type: tub-shower Laundry: s/o can assist Equipment Owned: Cane, Walker- Wheeled, Grab Bars- Shower, Shower Chair PRIOR FUNCTIONAL LEVEL Within Functional Limits, History of Falls Pt reporting no AD in home. Cane for short distance. WW for far distance. IND with ADLs, assist with IADLs. SUBJECTIVE Patient agreeable to therapy THERAPY DIAGNOSIS Reduced mobility-other TREATMENT INTERVENTIONS Evaluation, Therapeutic Activity (41342) Timed Code Treatment (minutes): 15 Skilled Treatment Time (minutes): 30 TRAINING AND EDUCATION PROVIDED Anatomy and Impact on Deficits, Assistive Device Use, Benefits of In-Hospital Mobility, Discharge Planning, Disease Specific Education, Equipment, Expected Functional Level, Falls Prevention, Gait Pattern, Reduction of Deviations, Home Safety, Positioning, Precautions/Restrictions, Role of Physical Therapy, Standing Balance, Transfers THERAPEUTIC SKILLS USED Activity Dosing, Cues for Sequencing/Proper Technique for Activity FUNCTIONAL STATUS Bed Mobility Transfers Sit To Stand: Stand By Assistance Stand To Sit: Stand By Assistance Bed to Chair Gait Stand By Assistance Gait Device: Cane General Deviations/Observations: Step length decreased Gait Distance (feet): 120 Stairs GOALS Patient will demonstrate understanding of importance of mobility during hospital stay and resolve all functional needs identified. PLAN PT Frequency: Discontinue Therapy Services Reasons Therapy Services Discontinued: No skilled needs Treatment Interventions: Education, Functional Mobility Training SIGNATURE: Tim Clark, PT, DPT PATIENT NAME: Tyler Torres DATE: July 26, 2024 TIME: 1:41 PM Normal [facility] THERAPY NT HNO ID: [id number] Author: UYNE MONTERO OT/L Service: Occupational Therapy Author Type: Occupational Therapist Type: Therapy (PT/OT/Speech/Resp) Filed: 07/26/2024 13:29 Note Text: Occupational Therapy Evaluation Summary SERVICE DATE: 07/26/2024 SERVICE TIME: 1140 to 1248 ROOM: [place] [address] OT 6 Clicks Score: 15 Total Joint Replacement Discharge Readiness: Pending Occupational Therapy Clearance DISCHARGE RECOMMENDATIONS Home OT Anticipated Discharge Needs: Physical Assist at Home, Supervision at Home Physical Assist at Home for: Transportation, Shopping, Self Care, Safety, Stairs, Medication Management, Meals, Laundry, Cleaning Supervision at Home due to: Decreased safety awareness ASSESSMENT Response to Therapy Interventions: Good Participation in Activities, Slow Progression with ADLs/IADLs Pt lying supine with HOB elevated upon arrival, agreeable to skilled OT session. Providing education to pt on precautions. Pt verbalizing understanding though throughout session, pt requiring MIN-MOD VCs to maintain precautions. Completing E/W/H exercises while in supine. Bed mobility supine > sit EOB MOD A. MIN A STS EOB <> upright stance, lateral steps EOB with IV pole. Pt completing additional STS EOB <> upright during session progressing from MIN A to CGA. Increased time required for sling education and management, completing donning/doffing sling x2 while EOB, MAX A to don/doff sling. Education on UB dressing and bathing. Pt requesting to sit EOB to eat, setup feeding. Handouts provided at end of session. Recommend addressing sling management and LB dressing during next OT session. PRECAUTIONS Weight Bearing Restrictions No shoulder ROM, okay for hand/wrist/elbow ROM Left Upper Extremity Weight Bearing Status: NWB CURRENT HOSPITAL COURSE L RTSA on 07/[address] Jacobsen Relevant Past Medical History: DM, COPD, lumbar stenosis HOME LIVING Patient Lives With: Significant Other Assistance Available: 24-Hour Entry To Home: Stairs Number Of Stairs Into Home: 1 (threshold) Number Of Stairs To Bed/Bath: 0 Tub/Shower Type: tub-shower Laundry: s/o can assist Equipment Owned: Cane, Walker- Wheeled PRIOR FUNCTIONAL LEVEL Within Functional Limits Pt reporting no AD in home. Cane for short distance. WW for far distance. IND with ADLs, assist with IADLs. Baseline Cognition: Oriented to self, Oriented to place, Oriented to time, Oriented to situation SUBJECTIVE Lots of steps. COGNITION Responsiveness: Alert, Awake Follows Commands: 3-step Commands Memory Deficits: Recall of Precautions Cog 6 Start of Session Total Points (Max Score = 24): 24 (07/26/24) Cog 6 End of Session Total Points (Max Score = 24): 24 (07/26/24) 4AT Score: 1 (07/26/24) Delirium Positive/Negative: Negative (07/26/24) THERAPY DIAGNOSIS Reduced mobility-other, Decreased activities of daily living (ADL), Muscle Weakness (generalized), General symptoms and signs-other TREATMENT INTERVENTIONS Evaluation, Self Senior Care Management (47020), Therapeutic Exercise (07207), Therapeutic Activity (92593) Timed Code Treatment (minutes): 53 Skilled Treatment Time (minutes): 68 TRAINING AND EDUCATION PROVIDED Activity Adaptation/Compensatory Strategies, Adaptive Equipment/DME, Bed Mobility, Benefits of In-Hospital Mobility, Functional Mobility Involving ADLs, Discharge Planning, Energy Conservation, Expected Functional Level, Disease Specific Education, Command Following, Insight into Deficits, Pain Management, Positioning, Precautions/Restrictions, Memory/Attention, Role of Occupational Therapy, Safety/Judgment, Self-Efficacy, Self-Expression/Advocacy, Sitting Balance to Improve [place] with ADLs/Self-Care, Standing Balance to Improve [place] with ADLs/Self-Care, Transfer - Sit to Stand, Treatment Protocol, Visual Scanning/Attention Activities, Upper Extremity Dressing, Upper Extremity Bathing THERAPEUTIC SKILLS USED Activity Dosing, Cuing Verbal, Cues for Sequencing/Proper Technique for Activity, Bilateral UE Integration, Therapeutic Use of Self, Teach-Back for Education, Repetitive Task Learning, Physical Assist, Muscle Activation Facilitation, Movement Facilitation, Management of Critical Lines, Tubes and/or Drains, Family Training, Facilitation of Joint Range of Motion, Dual Task Activities, Cuing Visual, Cuing Tactile, Task Analysis Learning FUNCTIONAL STATUS Activities of Daily Living Assist Level Additional Information Feeding Set Up Grooming Minimal Assistance Bathing Upper Body Maximal Assistance Bathing Lower Body Maximal Assistance Dressing Upper Body Maximal Assistance Dressing Lower Body Maximal Assistance Toileting Maximal Assistance Mobility Assist Level Additional Information Bed Mobility Rolling: Moderate Assistance (to R) Supine To Sit: Moderate Assistance Sit to Stand Minimal Assistance, Contact Guard Assistance Stand to Sit Minimal Assistance (more content not included)... [facility] ANES POSTPROC EVALon 024 ANES POSTPROC EVAL HNO ID: [id number] Author: ÁNGEL FISHER MD Service: ? Author Type: Anesthesiologist Type: Anesthesia Postprocedure Evaluation Filed: 07/25/2024 15:45 Note Text: POST ANESTHESIA EVALUATION NOTE : 1945 Procedure Summary Date: 07/25/24 Room / Location: [address] [facility] Anesthesia Start: 1108 Anesthesia Stop: Procedure: ARTHROPLASTY REPLACE JOINT TOTAL SHOULDER (Left: Shoulder) Diagnosis: Chronic left shoulder pain (Chronic left shoulder pain [M25.512, G89.29]) Surgeons: Hung Jacobsen MD Responsible Provider: Ángel Fisher MD Anesthesia Type: general ASA Status: 3 Anesthesia Type: general Airway Type: ETT Last Vitals Vitals Value Taken Time BP 137/77 07/25/24 1508 Temp 07/25/24 1512 Pulse 96 07/25/24 1510 Resp 07/25/24 1512 SpO2 98 % 07/25/24 1510 Post Anesthesia Patient Status Patient Evaluation: bedside. Anticipated Disposition: phase 2 then home. Neurological Status: aware and responsive. Pulmonary Status: breathing comfortably on room air Airway Control: returned to baseline unsupported. Cardiovascular Status: stable. Pain Management: clinically adequate Postoperative Hydration: acceptable. Intraoperative Events: no significant anesthesia events Post Operative Nausea/Vomiting Status: no significant post operative nausea or vomiting Recommendation: continue current plan of care. Anesthesia Observations No Documentation SIGNATURE: Ángel Walker MD PATIENT NAME: Tyler Torres DATE: July 25, 2024 TIME: 3:12 PM CSN: [id number] [facility] ANES PRE-OPon 07-25-2024 ANES PRE-OP HNO ID: [id number] Author: ÁNGEL FISHER MD Service: ? Author Type: Anesthesiologist Type: Anesthesia Preprocedure Evaluation Filed: 07/25/2024 13:59 Note Text: ANESTHESIOLOGY DAY OF SURGERY NOTE : 1945 Procedure Information Anesthesia Start Date/Time: 07/25/24 1108 Procedure: ARTHROPLASTY REPLACE JOINT TOTAL SHOULDER (Left: Shoulder) Location: [place] [address] [facility] Surgeons: Hung Jacobsen MD Estimated body mass index is 25.36 kg/m? as calculated from the following: Height as of 07/22/24: 172.7 cm (5' 8 ). Weight as of 07/22/24: 75.7 kg (166 lb 12.8 oz). Most recent hematocrit and potassium results: Hematocrit 41.1 07/22/2024 Potassium 4.4 07/22/2024 Relevant Problems ANESTHESIA (+) Obstructive sleep apnea syndrome CARDIO (+) Carotid stenosis (+) Peripheral venous insufficiency ENDO (+) Type 2 diabetes mellitus without complication, without long-term current use of insulin (HCC) GI (+) Gastroesophageal reflux disease without esophagitis -RENAL (+) Calculus of kidney NEURO-PSYCH (+) CVA (cerebral vascular accident) (HCC) PULMONARY (+) Chronic obstructive pulmonary disease (HCC) (+) Obstructive sleep apnea syndrome I - PHYSICAL EVALUATION AIRWAY Patient intubated: No. Tracheostomy tube not present Mallampati: I. TM distance: >3 FB. Neck ROM: full ROM without neurological symptoms. Mouth opening: adequate. Short neck: no. Thick neck: no Rivera present: no Lip Bite Test: I Microretrognathia/Microna gthia/Recessed Chin: No DENTAL Dental findings: edentulous. Additional exam findings: no II - ANESTHESIA PLAN ASA Score: 3 Anesthetic Plan: general Airway type: ETT The patient is not a current smoker. NPO Status: adequate Beta Audrey Administration of chronic beta audrey medication not planned. Monitoring Plan Monitoring plan: standard ASA. Post Procedure Analgesic Plan Postoperative analgesic plan: parenteral or oral opioids. Informed Consent Anesthetic risks, benefits, alternatives, personnel and consent discussed: yes. Patient / Responsible Constitution Party agrees to proceed: yes Patient / Surrogate agrees to blood products: Yes DNR status not reviewed with patient and/or family prior to surgery. Significant changes in the patient condition since the History and Physical, not otherwise documented in primary service progress note: no. Potential Anesthesia issues that may suggest increased risk of complications or contraindication to planned procedure: other. Discussed the possibility of lip / dental damage: no Vitals Value Taken Time BP 118/72 07/25/24 1105 Pulse 69 07/25/24 1105 Resp 16 07/25/24 1010 Temp 36.2 ?C (97.2 ?F) 07/25/24 0755 SpO2 95 % 07/25/24 1105 Vitals shown include unfiled device data. Facility-Administered Medications as of 07/25/2024 Medication Dose Route Frequency - lidocaine (PF) 10 mg/mL (1 %) 1-2 mg injection (XYLOCAINE) 0.1-0.2 mL INTRADERMAL PRN Or - lidocaine 1% 0.25 mL subcutaneous j-tip syringe (XYLOCAINE) 0.25 mL SUBCUTANEOUS PRN - NaCl 0.9% iv flush bag 20 mL INTRAVENOUS PRN - ceFAZolin iv piggyback 2 g in D5W (iso-osmotic) 100 mL (ANCEF) 2 g INTRAVENOUS Pre-Op Once - sodium chloride 0.9 % (flush) 2-10 mL (BD POSIFLUSH) 2-10 mL INTRAVENOUS q 12 H - [COMPLETED] midazolam (PF) injection (VERSED) INTRAVENOUS PRN - ropivacaine nerve block 0.2% (2 mg/mL) - 200 mL PERIPHERAL NERVE CATHETER CONTINUOUS And - ropivacaine 0.2% (2 mg/mL) nerve block CLINICIAN DOSE 4 mL 4 mL PERIPHERAL NERVE CATHETER q 2 H PRN Outpatient Medications as of 07/25/2024 Medication Sig - esomeprazole (NEXIUM) 40 mg capsule - oxyCODONE IR (ROXICODONE) 5 mg immediate release tablet TAKE 1 TABLET (5 MG TOTAL) BY MOUTH IN THE MORNING AND 1 TABLET (5 MG TOTAL) BEFORE BEDTIME. - DULoxetine (CYMBALTA) 30 mg capsule Take 30 mg by mouth. - Melatonin 5 mg cap Take 5 mg by mouth. - metFORMIN (GLUCOPHAGE) 500 mg tablet Take 500 mg by mouth. - tamsulosin (FLOMAX) 0.4 mg Take 0.4 mg by mouth. - celecoxib (CELEBREX) 100 mg capsule Take 100 mg by mouth once daily. I have interviewed and examined the patient. I have reviewed the medical record and/or the pre-anesthesia evaluation, pertinent labs, and test results. This contains updated information obtained within 48 hours of Surgery/Procedure. SIGNATURE: Shannon Abreu APRN.CRNA PATIENT NAME: Tyler Torres DATE: July 25, 2024 TIME: 1:56 PM CSN: [id number] Normal [facility] PRE-OP HNO ID: [id number] Author: ÁNGEL FISHER MD Service: ? Author Type: Anesthesiologist Type: Anesthesia Preprocedure Evaluation Filed: 07/29/2024 07:08 Note Text: ANESTHESIOLOGY DAY OF SURGERY NOTE : 1945 Procedure Information Anesthesia Start Date/Time: 07/25/24 1108 Procedure: ARTHROPLASTY REPLACE JOINT TOTAL SHOULDER (Left: Shoulder) Location: [address] [facility] Surgeons: Hung Jacobsen MD Estimated body mass index is 25.36 kg/m? as calculated from the following: Height as of 07/22/24: 172.7 cm (5' 8 ). Weight as of 07/22/24: 75.7 kg (166 lb 12.8 oz). Most recent hematocrit and potassium results: Hematocrit 41.1 07/22/2024 Potassium 4.4 07/22/2024 Relevant Problems ANESTHESIA (+) Obstructive sleep apnea syndrome CARDIO (+) Carotid stenosis (+) Peripheral venous insufficiency ENDO (+) Type 2 diabetes mellitus without complication, without long-term current use of insulin (HCC) GI (+) Gastroesophageal reflux disease without esophagitis -RENAL (+) Calculus of kidney NEURO-PSYCH (+) CVA (cerebral vascular accident) (HCC) PULMONARY (+) Chronic obstructive pulmonary disease (HCC) (+) Obstructive sleep apnea syndrome I - PHYSICAL EVALUATION AIRWAY Patient intubated: No. Tracheostomy tube not present Mallampati: I. TM distance: >3 FB. Neck ROM: full ROM without neurological symptoms. Mouth opening: adequate. Short neck: no. Thick neck: no Rivera present: no Lip Bite Test: I Microretrognathia/Microna gthia/Recessed Chin: No DENTAL Dental findings: edentulous. Additional exam findings: no II - ANESTHESIA PLAN ASA Score: 3 Anesthetic Plan: general Airway type: ETT The patient is not a current smoker. NPO Status: adequate Beta Audrey Administration of chronic beta audrey medication not planned. Monitoring Plan Monitoring plan: standard ASA. Post Procedure Analgesic Plan Postoperative analgesic plan: parenteral or oral opioids. Informed Consent Anesthetic risks, benefits, alternatives, personnel and consent discussed: yes. Patient / Responsible Constitution Party agrees to proceed: yes Patient / Surrogate agrees to blood products: Yes DNR status not reviewed with patient and/or family prior to surgery. Significant changes in the patient condition since the History and Physical, not otherwise documented in primary service progress note: no. Potential Anesthesia issues that may suggest increased risk of complications or contraindication to planned procedure: other. Discussed the possibility of lip / dental damage: no Vitals Value Taken Time BP 118/72 07/25/24 1105 Pulse 69 07/25/24 1105 Resp 16 07/25/24 1010 Temp 36.2 ?C (97.2 ?F) 07/25/24 0755 SpO2 95 % 07/25/24 1105 Vitals shown include unfiled device data. Facility-Administered Medications as of 07/25/2024 Medication Dose Route Frequency - lidocaine (PF) 10 mg/mL (1 %) 1-2 mg injection (XYLOCAINE) 0.1-0.2 mL INTRADERMAL PRN Or - lidocaine 1% 0.25 mL subcutaneous j-tip syringe (XYLOCAINE) 0.25 mL SUBCUTANEOUS PRN - NaCl 0.9% iv flush bag 20 mL INTRAVENOUS PRN - ceFAZolin iv piggyback 2 g in D5W (iso-osmotic) 100 mL (ANCEF) 2 g INTRAVENOUS Pre-Op Once - sodium chloride 0.9 % (flush) 2-10 mL (BD POSIFLUSH) 2-10 mL INTRAVENOUS q 12 H - [COMPLETED] midazolam (PF) injection (VERSED) INTRAVENOUS PRN - ropivacaine nerve block 0.2% (2 mg/mL) - 200 mL PERIPHERAL NERVE CATHETER CONTINUOUS And - ropivacaine 0.2% (2 mg/mL) nerve block CLINICIAN DOSE 4 mL 4 mL PERIPHERAL NERVE CATHETER q 2 H PRN Outpatient Medications as of 07/25/2024 Medication Sig - esomeprazole (NEXIUM) 40 mg capsule - oxyCODONE IR (ROXICODONE) 5 mg immediate release tablet TAKE 1 TABLET (5 MG TOTAL) BY MOUTH IN THE MORNING AND 1 TABLET (5 MG TOTAL) BEFORE BEDTIME. - DULoxetine (CYMBALTA) 30 mg capsule Take 30 mg by mouth. - Melatonin 5 mg cap Take 5 mg by mouth. - metFORMIN (GLUCOPHAGE) 500 mg tablet Take 500 mg by mouth. - tamsulosin (FLOMAX) 0.4 mg Take 0.4 mg by mouth. - celecoxib (CELEBREX) 100 mg capsule Take 100 mg by mouth once daily. I have interviewed and examined the patient. I have reviewed the medical record and/or the pre-anesthesia evaluation, pertinent labs, and test results. This contains updated information obtained within 48 hours of Surgery/Procedure. SIGNATURE: Ángel Walker MD PATIENT NAME: Tyler Torres DATE: July 25, 2024 TIME: 11:24 AM CSN: [id number] [facility] BRIEF OP NOTon 07-25-2024 BRIEF OP NOT HNO ID: [id number] Author: CHRISTINA HARRIS MD Service: Orthopaedic Surgery Author Type: Physician Type: Brief Op Note Filed: 07/25/2024 14:40 Note Text: BRIEF OP NOTE LOG ID: [id number] Surgery/Procedure Date: 07/25/2024 Incision/Procedure Start Time: 11:52 AM Incision Close/Procedure End Time: Surgeon(s)/Proceduralist( s) and C Application Developer(s): Surgeons and Role: * Hung Jacobsen MD - Primary * Daniel Zuniga MD - Resident - Assisting * Christina Harris MD - Fellow Procedure(s): Procedure(s) (LRB): ARTHROPLASTY REPLACE JOINT TOTAL SHOULDER (Left) Anesthesia: General Estimated Blood Loss: 250 mls Specimens: ID Type Source Tests Collected by Time Destination A : LEFT shoulder bone Tissue Bone, Resection SURGICAL PATHOLOGY Hung Jacobsen MD 07/25/2024 1:35 PM Complications: None Pre-Op/Pre-Procedure Diagnosis: left glenohumeral osteoarthritis Post-Op/Post-Procedure Diagnosis: Same Post-op Plan: PACU Labs: none PACU Imaging: L shoulder XR - Antibiotics: periop ancef - Pain Management: pain catheter, oxy, tylenol - DVT prophylaxis: ASA 81mg BID x 2 weeks - Weight Bearing/Activity: NWB operative extremity - Precautions: sling - Diet: regular - Encourage IS - PT/OT - Anticipate D/C: home tomorrw - Dispo: home Plan of care discussed with: Provider, RN, Patient. Patient was accompanied to the next level of care by a licensed practitioner from the surgical team pending completion of this brief op note (or operative note) SIGNATURE: Christina Harris MD PATIENT NAME: Tyler Torres DATE: July 25, 2024 TIME: 2:39 PM PAGER/CONTACT #: [phone] [facility] OPERATIVE NOon 07-25-2024 OPERATIVE NO HNO ID: [id number] Author: HUNG JACOBSEN MD Service: Orthopaedic Surgery Author Type: Physician Type: Operative Report Filed: 07/25/2024 15:43 Note Text: OPERATIVE/PROCEDURE REPORT LOG ID: [id number] SURGERY/PROCEDURE DATE: 07/25/2024 INCISION/PROCEDURE START TIME: 11:52 AM INCISION CLOSE/PROCEDURE END TIME: 2:50 PM SURGEON(S)/PROCEDURALIST( S) AND CONSUMER LOAN SPECIALIST(S): Surgeons and Role: * Hung Jacobsen MD - Primary Cosmetics Machine Operator * Christina Harris MD - Fellow Second C Application Developer * Daniel Zuniga MD - Resident - Assisting SURGERY/PROCEDURE(S): Left reverse Total Shoulder Arthroplasty 21764, biceps tenodesis 50844 PRE-OP/PRE-PROCEDURE DIAGNOSIS: Left glenohumeral arthritis with biceps tendinitis POST-OP/POST-PROCEDURE DIAGNOSIS: Left glenohumeral arthritis of biceps tendinitis ANESTHESIA: General With regional anesthesia OPERATIVE INDICATIONS: 79 year old male who has long history with chronic left shoulder pain. Patient was diagnosed with glenohumeral arthritis and has failed nonoperative treatment including modification of activities, gxpi-vwq-[id number] medication and injections. Due to failure of nonoperative treatment measures, patient was deemed a good candidate for anatomic versus reverse total shoulder arthroplasty. He was optimized with his lower extremity strength after having back surgery. We discussed expected postop course both implants. Due to bone loss and ambulatory status, wrist replacement was recommended. After discussing risks, which may include, but is not limited to: blood clots, blood loss requiring transfusion, nerve injury, infection, and fracture, benefits and alternatives, the patient elected to proceed. OPERATIVE FINDINGS: A2 glenoid, glenohumeral arthritis, intact cuff but attenuated supraspinatus and infraspinatus OPERATIVE DETAILS: The patient was identified in the preoperative holding holding area. This is confirmed with consent form and name band. The correct site was marked. The patient was then transferred to the operating room where a preoperative safety huddle confirmed patient, site, surgery, allergies, equipment and personnel The patient was then placed under anesthesia, placed in a beachchair position. All bony prominences were padded. The surgical arm was then prepped and draped in the usual sterile fashion with Hibiclens, hydrogen peroxide, ChloraPrep, which was allowed to dry for 3 minutes. 1g of TXA was given prior to incision After appropriate time out a 10-15 cm deltopectoral incision was made. Subcutaneous bleeders were cauterized. Subcutaneous fat dissected, cephalic vein identified, deltopectoral interval identified and vein retracted laterally. Subdeltoid space was identified and created, 1-2cm of pec insertion was relased, subacromial space was identified and created and joined to the subdeltoid space, a Kolbel retractor was then placed sub pec and sub deltoid. Next, conjoint tendon was identified and subcoracoid space was bluntly dissected. Axillary nerve was palpated and protected throughout. Kolbels placed under conjoint tendon, arm then placed in external rotation and the three sisters were cauterized. Biceps tendon was unroofed and noted to be very synovitic and inflamed, tenodesed to the pec stump with 2 #2 Ethibond, and then released off the glenoid. Biceps groove was then debrided. A subscapularis peel was performed. The subscapularis tendon was tagged. Next, capsule was released off the humeral head to the 6 o'clock position, protecting the axillary nerve throughout. Humeral head was then dislocated, greater tuberosity footprint, bare spot and [place] capsular joint line were identified after removing osteophytes. The 135 degree cut guide was used to lalo the anatomic neck in 30 degrees of retroversion. Supraspinatus and infraspinatus were intact but attenuated An anatomic head cut was then made with oscillating saw. Fukuda retractor placed posteroinferiorly. Anterior capsule and subscapularis was identified, nerve protected and blunt hohmann retractors placed. An junior-inferior capsulectomy was performed after the capsule from the overlying subscapularis, anterior bankart then placed, posterosuperior hohmann placed. Biceps stump and labrum were circumferentially removed, protecting the axillary nerve throughout. The inferior capsule was then released with retraction of the axillary nerve. Next, using our preoperative 3D CT plan, the center point of the glenoid was identified. The cartilage was cleared off of the face of the glenoid and all soft tissue removed from the glenoid rim. This was an A2 glenoid, there was absent cartilage. Possible mild B3. Center pin was placed. This placement was confirmed with our preoperative CT scan. Glenoid was reamed with a standard reamer. We reamed until 100% baseplate seating. Inserted the definitive baseplate with excellent fixation. Peripheral screws measuring 22, 2 (more content not included)... [facility] SURGICAL PATHOLOGYon CASE REPORT [facility] Comment on above: Order Comment: Speci men Type: TISSUE SPECIMENOrdering Facility: [facility] Address: [address] [place] [address] Result Comment: Surg [facility] Pathology Report Case: [id number] Authorizing Provider: Hung Jacobsen MD Collected: 07/25/2024 01:35 PM Ordering Location: Admitting Received: 07/25/2024 02:24 PM Pathologist: Margot Catherine MD Specimen: Bone, Resection, LEFT shoulder bone Performed By: #### S ####[facility] LABCLIA [id number] [place] [address] [place] CLINICAL HISTORY Normal [facility] Comment on above: Order Comment: Speci men Type: TISSUE SPECIMENOrdering Facility: [facility] Address: [address] [place] [address] Result Comment: Pre- op diagnosis: Chronic left shoulder pain [M25.512, G89.29] Performed By: #### S ####[facility] LABCLIA [id number] [address] [place] FINAL DIAGNOSIS [facility] Comment on above: Order Comment: Speci men Type: TISSUE SPECIMENOrdering Facility: [facility] Address: [address] [place] [address] Result Comment: A. H umeral head, left, arthroplasty: - Degenerative joint disease. Performed By: #### S ####[facility] LABCLIA [id number] [address] [place] FINAL PERFORMING LAB Normal [facility] Comment on above: Order Comment: Kelseyi karl Type: TISSUE SPECIMENOrdering Facility: [facility] Address: [address] [place] [address] Result Comment: Diag nostic interpretation performed at [facility], [address] [place] [address] CLIA# [id number] Radiology Therapist: Benoit Menchaca M.D. Performed By: #### S ####[facility] LABIA [id number] [address] [place] GROSS DESCRIPTION Normal [facility] Comment on above: Order Comment: Chris barajas Type: TISSUE SPECIMENOrdering Facility: [facility] Address: [address] [place] [address] Result Comment: A. B one, Resection Received in formalin labeled ???left shoulder bone??? is a 5.5 x 5.0 x 2.5 cm humoral head. The articular surface displays areas of cartilage eburnation, roughening, and granularity. The humoral head is cut with a saw to reveal sommers, trabecular, firm osseous cut surfaces. No grossly necrotic bone is identified. Also received are multiple sommers, irregular soft tissue fragments. Quality Engineer sections are submitted as follows: A1 soft tissue, A2 bone from weight bearing and non-weight bearing surfaces following formic acid decalcification. Gross examination performed at [facility], [address] [place] [address] 07/25/24 Performed By: #### S ####[facility] LABCLIA [id number] [facility] [id number] XR SHOULDER 2V AP/TRUE AP LT on 07-25-2024 XR SHOULDER 2V AP/TRUE AP LT * * *Final Report* * * DATE OF EXAM: Jul 25 2024 4:11PM ESX [id number] - XR SHOULDER 2V AP/TRUE AP LT / PROCEDURE REASON: Post-operative / post-procedure assessment, asymptomatic * * * * Physician Interpretation * * * * EXAMINATION: XR SHOULDER 2V AP/TRUE AP LT HISTORY: post op Post-operative / post-procedure assessment, asymptomatic . TECHNIQUE: XR SHOULDER 2V AP/TRUE AP LT Laterality: LEFT Number of different views (projections): 1 M: XB_1 COMPARISON:11/17/2023. RESULT: Interval left reverse total shoulder arthroplasty. Prosthetic components are well seated. There is no significant periprosthetic lucency. There is no acute fracture or dislocation.Expected soft tissue swelling and gas. IMPRESSION: EXPECTED POSTOPERATIVE APPEARANCE. Port Crane Operator: PSCJo Ann Transcribe Date/Time: Jul 25 2024 7:38P Dictated by : JUVENCIO BURRIS MD This examination was interpreted and the report reviewed and electronically signed by: JUVENCIO BURRIS MD on Jul 25 2024 7:39PM EST [id number] [facility] CBC W Auto Differential pane l (Bld)on 07-22-2024 Basophils (Bld) [#/Vol] 0.04 10*3/uL Normal <0.11 [facility] Comment on above: Order Comment: Speci men Type: BLOOD SPECIMENOrdering Facility: [facility] Address: [address] [place] [address] Performed By: #### 5 7021-8 ####[facility] LABCLIA [id number] [place] [address] [place] Basophils/100 WBC (Bld) 0.6 % [facility] Comment on above: Order Comment: Speci men Type: BLOOD SPECIMENOrdering Facility: [facility] Address: [address] [place] [address] Performed By: #### 5 7021-8 ####[facility] LABCLIA [id number] [place] [address] [place] Differential cell count method Nom (Bld) Auto [facility] Comment on above: Order Comment: Speci men Type: BLOOD SPECIMENOrdering Facility: [facility] Address: [address] [place] [address] Performed By: #### 5 7021-8 ####[facility] LABCLIA [id number] [place] [address] [place] Eosinophils (Bld) [#/Vol] 0.16 10*3/uL Normal <0.46 [facility] Comment on above: Order Comment: Speci men Type: BLOOD SPECIMENOrdering Facility: [facility] Address: [address] [place] [address] Performed By: #### 5 7021-8 ####[facility] LABCLIA [id number] [place] [address] [place] Eosinophils/100 WBC (Bld) 2.3 % [facility] Comment on above: Order Comment: Speci men Type: BLOOD SPECIMENOrdering Facility: [facility] Address: [address] [place] [address] Performed By: #### 5 7021-8 ####[facility] LABCLIA [id number] [place] [address] [place] Erythrocyte distribution width (RBC) [Ratio] 13.9 % Normal 11.5-15.0 [facility] Comment on above: Order Comment: Speci men Type: BLOOD SPECIMENOrdering Facility: [facility] Address: [address] [place] [address] Performed By: #### 5 7021-8 ####[facility] LABCLIA [id number] [place] [address] [place] Hematocrit (Bld) [Volume fraction] 41.1 % Normal 39.0-51.0 [facility] Comment on above: Order Comment: Speci men Type: BLOOD SPECIMENOrdering Facility: [facility] Address: [address] [place] [address] Performed By: #### 5 7021-8 ####[facility] LABCLIA [id number] [place] [address] [place] Hemoglobin (Bld) [Mass/Vol] 13.2 g/dL Normal 13.0-17.0 [facility] Comment on above: Order Comment: Speci men Type: BLOOD SPECIMENOrdering Facility: [facility] Address: [address] [place] [address] Performed By: #### 5 7021-8 ####[facility] LABCLIA [id number] [place] [address] [place] Immature granulocytes (Bld) [#/Vol] 10*3/uL Normal <0.10 [facility] Comment on above: Order Comment: Speci men Type: BLOOD SPECIMENOrdering Facility: [facility] Address: [address] [place] [address] Performed By: #### 5 7021-8 ####[facility] LABCLIA [id number] [place] [address] [place] Immature granulocytes/100 WBC (Bld) 0.1 % Normal [facility] Comment on above: Order Comment: Speci men Type: BLOOD SPECIMENOrdering Facility: [facility] Address: [address] [place] [address] Performed By: #### 5 7021-8 ####[facility] LABCLIA [id number] [place] [address] [place] Lymphocytes (Bld) [#/Vol] 1.43 10*3/uL Normal 1.00-4.00 [facility] Comment on above: Order Comment: Speci men Type: BLOOD SPECIMENOrdering Facility: [facility] Address: [address] [place] [address] Performed By: #### 5 7021-8 ####[facility] LABCLIA [id number] [place] [address] [place] Lymphocytes/100 WBC (Bld) 20.5 % Normal [facility] Comment on above: Order Comment: Speci men Type: BLOOD SPECIMENOrdering Facility: [facility] Address: [address] [place] [address] Performed By: #### 5 7021-8 ####[facility] LABCLIA [id number] [place] [address] [place] MCH (RBC) [Entitic mass] 30.0 pg Normal 26.0-34.0 [facility] Comment on above: Order Comment: Speci men Type: BLOOD SPECIMENOrdering Facility: [facility] Address: [address] [place] [address] Performed By: #### 5 7021-8 ####[facility] LABCLIA [id number] [place] [address] [place] MCHC (RBC) [Mass/Vol] 32.1 g/dL Normal 30.5-36.0 [facility] Comment on above: Order Comment: Speci men Type: BLOOD SPECIMENOrdering Facility: [facility] Address: [address] [place] [address] Performed By: #### 5 7021-8 ####[facility] LABCLIA [id number] [place] [address] [place] MCV (RBC) [Entitic vol] 93.4 fL Normal 80.0-100.0 [facility] Comment on above: Order Comment: Speci men Type: BLOOD SPECIMENOrdering Facility: [facility] Address: [address] [place] [address] Performed By: #### 5 7021-8 ####[facility] LABCLIA [id number] [address] [address] [place] Monocytes (Bld) [#/Vol] 0.97 10*3/uL High <0.87 [facility] Comment on above: Order Comment: Speci men Type: BLOOD SPECIMENOrdering Facility: [facility] Address: [address] [place] [address] Performed By: #### 5 7021-8 ####[facility] LABCLIA [id number] [place] [address] [place] Monocytes/100 WBC (Bld) 13.9 % Normal [facility] Comment on above: Order Comment: Speci men Type: BLOOD SPECIMENOrdering Facility: [facility] Address: [address] [place] [address] Performed By: #### 5 7021-8 ####[facility] LABCLIA [id number] [place] [address] [place] Neutrophils (Bld) [#/Vol] 4.38 10*3/uL Normal 1.45-7.50 [facility] Comment on above: Order Comment: Speci men Type: BLOOD SPECIMENOrdering Facility: [facility] Address: [address] [place] [address] Performed By: #### 5 7021-8 ####[facility] LABCLIA [id number] [place] [address] [place] Neutrophils/100 WBC (Bld) 62.6 % Normal [facility] Comment on above: Order Comment: Speci men Type: BLOOD SPECIMENOrdering Facility: [facility] Address: [address] [place] [address] Performed By: #### 5 7021-8 ####[facility] LABCLIA [id number] [place] [address] [place] Nucleated RBC (Bld) [#/Vol] 10*3/uL Normal <0.01 [facility] Comment on above: Order Comment: Speci men Type: BLOOD SPECIMENOrdering Facility: [facility] Address: [address] [place] [address] Performed By: #### 5 7021-8 ####[facility] LABCLIA [id number] [place] [address] [place] Nucleated RBC/100 WBC (Bld) [Ratio] 0.0 /100 WBC Normal [facility] Comment on above: Order Comment: Speci men Type: BLOOD SPECIMENOrdering Facility: [facility] Address: [address] [place] [address] Performed By: #### 5 7021-8 ####[facility] LABIA [id number] [place] [address] [place] Platelet mean volume (Bld) [Entitic vol] 9.9 fL Normal 9.0-12.7 [facility] Comment on above: Order Comment: Speci men Type: BLOOD SPECIMENOrdering Facility: [facility] Address: [address] [place] [address] Performed By: #### 5 7021-8 ####[facility] LABIA [id number] [place] [address] [place] Platelets (Bld) [#/Vol] 251 10*3/uL Normal 150-400 [facility] Comment on above: Order Comment: Speci men Type: BLOOD SPECIMENOrdering Facility: [facility] Address: [address] [place] [address] Performed By: #### 5 7021-8 ####[facility] LABCLIA [id number] [place] [address] [place] RBC (Bld) [#/Vol] 4.40 10*6/uL Normal 4.20-6.00 [facility] Comment on above: Order Comment: Speci men Type: BLOOD SPECIMENOrdering Facility: [facility] Address: [address] [place] [address] Performed By: #### 5 7021-8 ####[facility] LABCLIA [id number] [place] [address] [place] WBC (Bld) [#/Vol] 6.99 10*3/uL Normal 3.70-11.00 [facility] Comment on above: Order Comment: Speci men Type: BLOOD SPECIMENOrdering Facility: [facility] Address: [address] [place] [address] Performed By: #### 5 7021-8 ####[facility] LABCLIA [id number] [place] [address] [place] CT SHOULDER WO IVCON LTon CT SHOULDER WO IVCON LT * * *Final Report* * * DATE OF EXAM: Jul 22 2024 10:26AM [place] [id number] - CT SHOULDER WO IVCON LT / PROCEDURE REASON: multiple diagnoses * * * * Physician Interpretation * * * * REASON FOR STUDY: Chronic left shoulder pain Chronic left shoulder pain . TECHNOLOGIST-PROVIDED HISTORY: Jeannie Protocol: Include ENTIRE SCAPULA, 140 kVP, 300 mAs with dose modulation 0.6mm collimation, effective pitch 0.9, B40 (medium) reconstruction kernel, rec onstructed slice thickness 0.6mm and slice increment 0.6mm. Display field of vie w (DFOV) is between 250mm and 320mm (or 25cm and SEE MYPRACTICE FOR MORE DETAILS TECHNIQUE: CT SHOULDER WO IVCON LT CT Radiation dose: Integrated Dose-length product (DLP) for this visit = 520 mGy*cm. CT Dose Reduction Employed: Automated exposure control COMPARISON: LEFT shoulder radiograph dated 11/17/2023 RESULT: Preoperative assessment. Severe glenohumeral osteoarthritis with chronic bony remodeling, moderate loss of glenoid bone stock, subchondral cystic changes and sclerosis. A large resorptive cyst is seen in the greater tuberosity likely related to supraspinatus insertion. Mild degenerative arthritis is seen in the acromioclavicular joint with joint space narrowing and proliferative changes of the articular surface. CT is suboptimal for assessment rotator cuff, but no retracted tear is seen. A small lateral humeral joint effusion is present. Atherosclerotic calcification is noted in the aorta. Coronary atherosclerotic calcifications are also noted, moderate. A 3 mm LEFT upper lobe pulmonary nodule is present on series 3 image 11. Localizer images: No additional findings. No other significant abnormality is seen. IMPRESSION: Severe glenohumeral osteoarthritis. A 3 mm LEFT upper lobe pulmonary nodule is present. Incidental Finding: Follow-up Acuity: Incidental Finding: Solid: <6 mm (solitary or multiple) Routing Code: N/A Recommendation: No imaging follow-up is recommended Time Frame: N/A Comments: If there are risk factors for lung malignancy, a follow-up chest CT exam could be obtained in 12 months --END OF FINDING-- Port Crane Operator: WERO Transcribe Date/Time: Jul 24 2024 2:15P Dictated by : LIMA CARR MD This examination was interpreted and the report reviewed and electronically signed by: LIMA CARR MD on Jul 24 2024 2:20PM EST [id number] ACTIONABLE Invalid Interpretation Code [facility] Comprehensive metabolic 2000 panelon 07-22-2024 Albumin [Mass/Vol] 3.9 g/dL Normal 3.9-4.9 [facility] Comment on above: Order Comment: Chris barajas Type: BLOOD SPECIMENOrdering Facility: [facility] Address: [address] [place] [address] Performed By: #### 2 4323-8 ####[facility] LABCLIA [id number] [place] [address] [place] ALP [Catalytic activity/Vol] 79 U/L Normal 38-113 [facility] Comment on above: Order Comment: Chris barajas Type: BLOOD SPECIMENOrdering Facility: [facility] Address: [address] [place] [id number] Performed By: #### 2 4323-8 ####[facility] LABCLIA [id number] [place] [address] [place] ALT [Catalytic activity/Vol] 14 U/L Normal 10-54 [facility] Comment on above: Order Comment: Speci men Type: BLOOD SPECIMENOrdering Facility: [facility] Address: [address] [place] [address] Performed By: #### 2 4323-8 ####[facility] LABCLIA [id number] [place] [address] [place] Anion gap [Moles/Vol] 10 mmol/L Normal 8-15 [facility] Comment on above: Order Comment: Speci men Type: BLOOD SPECIMENOrdering Facility: [facility] Address: [address] [place] [address] Performed By: #### 2 4323-8 ####[facility] LABCLIA [id number] [place] [address] [place] AST [Catalytic activity/Vol] 21 U/L Normal 14-40 [facility] Comment on above: Order Comment: Speci men Type: BLOOD SPECIMENOrdering Facility: [facility] Address: [address] [place] [address] Performed By: #### 2 4323-8 ####[facility] LABCLIA [id number] [place] [address] [place] Bilirubin [Mass/Vol] 0.4 mg/dL Normal 0.2-1.3 [facility] Comment on above: Order Comment: Speci men Type: BLOOD SPECIMENOrdering Facility: [facility] Address: [address] [place] [address] Performed By: #### 2 4323-8 ####[facility] LABCLIA [id number] [place] [address] [place] Calcium [Mass/Vol] 10.3 mg/dL High 8.5-10.2 [facility] Comment on above: Order Comment: Speci men Type: BLOOD SPECIMENOrdering Facility: [facility] Address: [address] [place] [address] Performed By: #### 2 4323-8 ####[facility] LABCLIA [id number] [place] [address] [place] Chloride [Moles/Vol] 103 mmol/L Normal 98-107 [facility] Comment on above: Order Comment: Speci men Type: BLOOD SPECIMENOrdering Facility: [facility] Address: [address] [place] [address] Performed By: #### 2 4323-8 ####[facility] LABCLIA [id number] [place] [address] [place] CO2 [Moles/Vol] 24 mmol/L Normal 22-30 [facility] Comment on above: Order Comment: Speci men Type: BLOOD SPECIMENOrdering Facility: [facility] Address: [address] [place] [address] Performed By: #### 2 4323-8 ####[facility] LABCLIA [id number] [place] [address] [place] Creatinine [Mass/Vol] 0.96 mg/dL Normal 0.73-1.22 [facility] Comment on above: Order Comment: Speci men Type: BLOOD SPECIMENOrdering Facility: [facility] Address: [address] [place] [address] Performed By: #### 2 4323-8 ####[facility] LABCLIA [id number] [place] [address] [place] Creatinine and Glomerular filtration rate.predicted panel (S/P/Bld) 80 mL/min/1.73m??? Normal >=60 [facility] Comment on above: Order Comment: Speci men Type: BLOOD SPECIMENOrdering Facility: [facility] Address: [address] [place] [address] Result Comment: Thuy mated Glomerular Filtration Rate (eGFR) is calculated using the 2020 CKD-EPI creatinine equation. This equation utilizes serum creatinine, sex, and age as parameters. The creatinine assay has traceable calibration to isotope dilution-mass spectrometry. Refer to KDIGO guidelines for clinical interpretation. In patients with unstable renal function, e.g. those with acute kidney injury, the eGFR may not accurately reflect actual GFR. Performed By: #### 2 4323-8 ####[facility] LABCLIA [id number] [place] [address] [place] Glucose [Mass/Vol] 99 mg/dL Normal 74-99 [facility] Comment on above: Order Comment: Chris barajas Type: BLOOD SPECIMENOrdering Facility: [facility] Address: [address] [place] [address] Result Comment: The [place] [employer] Association (ADA) provides guidance for cutoff [...] Standards of Medical Care in Diabetes 2016, [place] [employer]. Diabetes Care. 2016.39(Suppl 1). Performed By: #### 2 4323-8 ####[facility] LABCLIA [id number] [place] [address] [place] Potassium [Moles/Vol] 4.4 mmol/L Normal 3.7-5.1 [facility] Comment on above: Order Comment: Chris barajas Type: BLOOD SPECIMENOrdering Facility: [facility] Address: [address] [place] [address] Performed By: #### 2 4323-8 ####[facility] LABCLIA [id number] [place] [address] [place] Protein [Mass/Vol] 6.2 g/dL Low 6.3-8.0 [facility] Comment on above: Order Comment: Speci men Type: BLOOD SPECIMENOrdering Facility: [facility] Address: [address] [place] [address] Performed By: #### 2 4323-8 ####[facility] LABCLIA [id number] [place] [address] [place] Sodium [Moles/Vol] 137 mmol/L Normal 136-144 [facility] Comment on above: Order Comment: Speci men Type: BLOOD SPECIMENOrdering Facility: [facility] Address: [address] [place] [address] Performed By: #### 2 4323-8 ####[facility] LABCLIA [id number] [place] [address] [place] Urea nitrogen [Mass/Vol] 9 mg/dL Normal 9-24 [facility] Comment on above: Order Comment: Speci men Type: BLOOD SPECIMENOrdering Facility: [facility] Address: [address] [place] [address] Performed By: #### 2 4323-8 ####[facility] LABCLIA [id number] [place] [address] [place] LYF21pf 07-22-2024 ECG01 Ventricular Rate : 6 9 BPM Atrial Rate : 69 BPM P-R Interval : 174 ms QRS Duration : 82 ms Q-T Interval : 372 ms QTC Calculation(Bazett) : 398 ms Calculated P [place] : 23 degrees Calculated R [place] : 9 degrees Calculated T [place] : 73 degrees NORMAL SINUS RHYTHM NORMAL ECG Confirmed by STEVEN KHALIL MD ([id number]) on 07/23/2024 9:38:18 PM NAME : TYLER TORRES PID : [id number] : 1945 Gender : Male Race : ORD : Procedure Date : Jul 22 2024 14:07:01 Edit Date : Jul 23 2024 21:38:19 Diagnosis: NORMAL SINUS RHYTHM NORMAL ECG Confirmed by STEVEN KHALIL MD ([id number]) on 07/23/2024 9:38:18 PM Test Reason : PRE OP Location : 5 : [facility] Overread By : STEVEN KHALIL MD Edited By : STEVEN KHALIL MD Referred By : HUNG JACOBSEN Acquired by : TMM, Normal [facility] Ferritin SerPl-mCncon 2023 Ferritin [Mass/Vol] 29.1 ng/mL Low 30.3-565.7 [facility] Comment on above: Order Comment: Speci men Type: BLOOD SPECIMENOrdering Facility: [facility] Address: [address] [place] [address] Performed By: #### 5 0190-8, 2276-4 ####[facility] LABCLIA [id number] [facility] [id number] [place] [address] [place] HISTORY PHYSICALon HISTORY PHYSICAL HNO ID: [id number] Author: ERIC KEBEDE APRN.OFFSHORING MANAGER Service: ? Author Type: Nurse Practitioner Type: H&P Filed: 07/23/2024 07:09 Note Text: [facility] HISTORY AND PHYSICAL EXAMINATION SERVICE DATE: 07/22/2024 SERVICE TIME: 1:21 PM PRIMARY CARE PHYSICIAN: Armando Richards MD, MD REASON FOR VISIT: Tyler Torres is a 79 year old male who is scheduled for Left - ARTHROPLASTY REPLACE JOINT TOTAL SHOULDER at the request of Dr. Hung Jacobsen for consultation. My final recommendation will be communicated back to the requesting physician by way of shared medical record or letter. Assessment Obstructive sleep apnea syndrome Assessment: non-compliant with CPAP Mixed hyperlipidemia Assessment: managed with med, stable Follows up with PCP Elevated BP without diagnosis of hypertension Assessment: managed with med, stable Follows up with PCP Chronic obstructive pulmonary disease (HCC) Assessment: Denies SOB Does not require inhaler or oxygen Follows up with PCP 96% RA Former smoker Assessment: quit 1992 Former 0.5 ppd for 20 years Gastroesophageal reflux disease without esophagitis Assessment: managed with med, stable Follows up with PCP Calculus of kidney Assessment: stable and asymptomatic Type 2 diabetes mellitus without complication, without long-term current use of insulin (HCC) Assessment: managed with oral med, stable Follows up with PCP BG at home 100's HgbA1c 6.1% 03/24/24 CVA (cerebral vascular accident) (HCC) Assessment: hx 03/2024 Follows up with neurology, last office visit 04/25/24 Daily aspirin No residual deficits Carotid stenosis Assessment: less than 50% bilaterally Follows with vascular, last office visit 05/28/24 Meza Activity Status Index: METS: Walk indoors, such as around the house (1.75 METs) Do light work around the house, such as dusting or washing dishes (2.70 METs) Take care of self; that is eating, dressing, bathing, using the toilet (2.75 METs) Walk a block or two on level ground (2.75 METs) Do moderate work around the house, such as vacuuming, sweeping floors, or carrying in groceries (3.50 METs) DASI Score: 13.45 Patient denies any chest pain or undue shortness of breath with the above physical activity. Patient is limited most or all of the time (uses scooter, mobility device). Clinical Frailty Scale: 3. Well, with treated comorbid disease STOP-Bang Score: STOP-Bang Score: 0 (Non-compliant with CPAP ) [id number] Score: Age: >=75 Sex: male [id number] Score: ARISCAT Score: Age: 51-80 Preoperative SpO2: >=96% Preoperative anemia: Yes Duration of surgery: >3 hrs Emergency procedure: No ARISCAT Score: ANESTHESIA FINDINGS: Intubation History: No history of difficult intubation. No abnormal airway history Significant Anesthesia Considerations: none Airway History: No history of difficult airway No abnormal airway history I - PHYSICAL EVALUATION AIRWAY Patient intubated: No. Tracheostomy tube not present Mallampati: II. TM distance: >3 FB. Neck ROM: limited extension. Mouth opening: adequate. Short neck: yes. Thick neck: no Lip Bite Test: I DENTAL Dentures, upper: complete. Dentures, lower: complete. II - ANESTHESIA PLAN Anesthetic plan additional comments: *PACC/TCI - anesthesia choice. Beta Audrey Monitoring Plan Post Procedure Analgesic Plan Prepared for surgery: This patient is optimally prepared for surgery CONSULTS: Patient does not require consults for optimization at this time. The Following Tests/Procedures Have Been Initiated: Orders Placed This Encounter Iron and TIBC Standing Status: Future Number of Occurrences: 1 Standing Expiration Date: 10/21/2024 Ferritin Standing Status: Future Number of Occurrences: 1 Standing Expiration Date: 10/21/2024 rosuvastatin (CRESTOR) 20 mg tablet Sig: Take 20 mg by mouth every morning. celecoxib (CELEBREX) 100 mg capsule Sig: Take 100 mg by mouth once daily. DISCONTD: Melatonin 5 mg cap Sig: Take 5 mg by mouth daily at bedtime. lisinopril (ZESTRIL) 10 mg tablet Sig: Take 10 mg by mouth every morning. Docusate Sodium 100 mg tab Sig: Take 100 mg by mouth every morning. cyanocobalamin (VITAMIN B-12) 1,000 mcg tab Sig: Take 1,000 mcg by mouth once daily. aspirin, enteric coated (ASPIRIN, ENTERIC COATED) 81 mg EC tablet Sig: Take 81 mg by mouth once daily. MULTIVITAMIN ORAL Sig: Take by mouth once daily. oxyCODONE IR (ROXICODONE) 10 mg tab Sig: Take 5 mg by mouth. mupirocin (BACTROBAN) 2 % ointment Sig: two times a day for 5 days. Apply 0.5 inch with cotton swab (Q-tip) to each nostril in the morning and evening for 5 days prior to and including day of surgery. Dispense: 22 g Refill: 0 ECG COMPLETE Order Comments: Ordered by an unspecified provider Planned Anesthetic: Per anesthesia choice The patient stern (more content not included)... Normal [facility] Iron and Iron binding capaci ty panelon 07-22-2024 Iron [Mass/Vol] 50 ug/dL Normal 41-186 [facility] Comment on above: Order Comment: Speci men Type: BLOOD SPECIMENOrdering Facility: [facility] Address: [address] [place] [address] Performed By: #### 5 0190-8, 2276-4 ####[facility] LABCLIA [id number] [place] [address] [place] Iron binding capacity [Mass/Vol] 365 ug/dL Normal 232-386 [facility] Comment on above: Order Comment: Speci men Type: BLOOD SPECIMENOrdering Facility: [facility] Address: [address] [place] [address] Performed By: #### 5 0190-8, 2276-4 ####[facility] LABCLIA [id number] [place] [address] [place] Iron/TIBC [Molar ratio] 13.7 % Low 15.0-57.0 [facility] Comment on above: Order Comment: Speci men Type: BLOOD SPECIMENOrdering Facility: [facility] Address: [address] [place] [address] Performed By: #### 5 0190-8, 2276-4 ####[facility] LABCLIA [id number] [address] [place] TYPE AND SCREEN,30 DAYon ABO A Normal [facility] Comment on above: Order Comment: Speci men Type: BLOOD SPECIMENOrdering Facility: [facility] Address: [address] [place] [address] Performed By: #### T SCR30 ####[facility] BLOOD BANKCLIA [id number] [place] [address] [place] Rh Nom (Bld) Positive Normal [facility] Comment on above: Order Comment: Speci men Type: BLOOD SPECIMENOrdering Facility: [facility] Address: [address] [place] [address] Performed By: #### T SCR30 ####[facility] BLOOD BANKIA [id number] [place] [address] [place] XR CHEST 2V FRONTAL/LATon XR CHEST 2V FRONTAL/LAT * * *Final Report* * * DATE OF EXAM: Jul 22 2024 9:50AM CHX [id number] - XR CHEST 2V FRONTAL/LAT / PROCEDURE REASON: multiple diagnoses * * * * Physician Interpretation * * * * EXAMINATION: CHEST RADIOGRAPH (2 VIEW FRONTAL and LATERAL) CLINICAL HISTORY: Chronic left shoulder pain . MQ: XC2_6 EXAM DATE/TIME: 07/22/2024 9:50 AM COMPARISON: No relevant prior studies available. RESULT: Lines, tubes, and devices: None. Lungs and pleura: No consolidation. No lung mass. No pleural effusion. No pneumothorax. Cardiomediastinal silhouette: Normal cardiomediastinal silhouette. Bones and soft tissues: Moderate degenerative change within the thoracic spine is appreciated. Postoperative changes at the thoracolumbar spine is appreciated, incompletely imaged. Significant bilateral shoulder joint degenerative changes appreciated. IMPRESSION: No acute radiographic abnormality. Port Crane Operator: [facility] Transcribe Date/Time: Jul 22 2024 12:13P Dictated by : ANN CORRAL MD This examination was interpreted and the report reviewed and electronically signed by: ANN CORRAL MD on Jul 22 2024 12:15PM EST [id number] Normal [facility] XR Chest PA and Lateralon IMPRESSION: No acute radiographic abnormality. Port Crane Operator: [facility] Transcribe Date/Time: Jul 22 2024 12:13P Dictated by : ANN CORRAL MD This examination was interpreted and the report reviewed and electronically signed by: ANN CORRAL MD on Jul 22 2024 12:15PM EST DIVISION OF RADIOLOGY * * *Final Report* * * DATE OF EXAM: Jul 22 2024 9:50AM CHX 5291 - XR CHEST 2V FRONTAL/LAT / PROCEDURE REASON: multiple diagnoses * * * * Physician Interpretation * * * * EXAMINATION: CHEST RADIOGRAPH (2 VIEW FRONTAL & LATERAL) CLINICAL HISTORY: Chronic left shoulder pain . MQ: XC2_6 EXAM DATE/TIME: 07/22/2024 9:50 AM COMPARISON: No relevant prior studies available. RESULT: Lines, tubes, and devices: None. Lungs and pleura: No consolidation. No lung mass. No pleural effusion. No pneumothorax. Cardiomediastinal silhouette: Normal cardiomediastinal silhouette. Bones and soft tissues: Moderate degenerative change within the thoracic spine is appreciated. Postoperative changes at the thoracolumbar spine is appreciated, incompletely imaged. Significant bilateral shoulder joint degenerative changes appreciated. DIVISION [facility] RADIOLOGY [facility] * * *Final Report* * * DATE OF EXAM: Jul 22 2024 9:50AM CHX 5291 - XR CHEST 2V FRONTAL/LAT / PROCEDURE REASON: multiple diagnoses * * * * Physician Interpretation * * * * EXAMINATION: CHEST RADIOGRAPH (2 VIEW FRONTAL & LATERAL) CLINICAL HISTORY: Chronic left shoulder pain . MQ: XC2_6 EXAM DATE/TIME: 07/22/2024 9:50 AM COMPARISON: No relevant prior studies available. RESULT: Lines, tubes, and devices: None. Lungs and pleura: No consolidation. No lung mass. No pleural effusion. No pneumothorax. Cardiomediastinal silhouette: Normal cardiomediastinal silhouette. Bones and soft tissues: Moderate degenerative change within the thoracic spine is appreciated. Postoperative changes at the thoracolumbar spine is appreciated, incompletely imaged. Significant bilateral shoulder joint degenerative changes appreciated. IMPRESSION IMPRESSION: No acute radiographic abnormality. Port Crane Operator: W[facility] Transcribe Date/Time: Jul 22 2024 12:13P Dictated by : ANN CORRAL MD This examination was interpreted and the report reviewed and electronically signed by: ANN CORRAL MD on Jul 22 2024 12:15PM EST [facility] Radiology Study observation (narrative) [facility] XR Chest PA and LateralOrder ed By: [facility] Provider on 07-22-2024 [facility] CNOVon 06-18-2024 CNOV Office Visit ([facility] ) ----- TYLER TORRES ([id number]) 1945 M Date Time Provider Department 06/18/24 2:30 PM HUNG JACOBSEN During your visit today, we recorded the following information about you: Hung Jacobsen MD 06/18/2024 3:47 PM Signed SHOULDER/ELBOW ESTABLISHED VISIT SERVICE DATE: 06/18/2024 PCP: Armando Richards MD, MD CHIEF COMPLAINT: Bilateral shoulder FU SUBJECTIVE HISTORY OF PRESENT ILLNESS: 79 year old male last CSI February 2024. Didn't really help last time. Left side worse than right pain up to 6-8 at constant level. No DM A1c 6.1 Non Smoker Still walking 1/2 mile daily, leg strength is improving significantly. 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 esomeprazole (NEXIUM) 40 mg capsule oxyCODONE-acetaminophen (PERCOCET) 5-325 mg tablet Take by mouth. oxyCODONE IR (ROXICODONE) 5 mg immediate release tablet TAKE 1 TABLET (5 MG TOTAL) BY MOUTH IN THE MORNING AND 1 TABLET (5 MG TOTAL) BEFORE BEDTIME. DULoxetine (CYMBALTA) 30 mg capsule Take 30 mg by mouth. cyclobenzaprine (FLEXERIL) 5 mg tablet Take 5 mg by mouth three times a day. celecoxib (CELEBREX) 100 mg capsule Take by mouth. gabapentin (NEURONTIN) 300 mg capsule Take 1 capsule by mouth three times daily. Melatonin 5 mg cap Take 5 mg by mouth. metFORMIN (GLUCOPHAGE) 500 mg tablet Take 500 mg by mouth. tamsulosin (FLOMAX) 0.4 mg Take 0.4 mg by mouth. OBJECTIVE There were no vitals taken for this visit. PHYSICAL EXAMINATION: Alert and oriented x3, able to stand today with assistance of only 1 arm. Able to stand straight. Does get fatigue in the legs Painless neck ROM in all planes. Negative Spurling's. No radiating numbness or tingling past elbows. No visibile head, eyes, ear, neck, throat deformities L Shoulder ROM 900/0/SIJ R Shoulder ROM 90/0/SIJ External rotation 5 out of 5. Belly press unable to be assessed, biceps tender palpation positive speeds bilaterally Axillary, Long Thoracic, CN XI, Median, Ulnar, Radial, musculocutaneous nerves intact to motor and sensation. Fingers warm and well perfused, BCR< 2sec. Radial Pulse 2+ RADIOGRAPHIC RESULTS: Imaging was personally reviewed by myself today XR of Bilateral Shoulders today show severe GHOA. Medialization of joint line ASSESSMENT Bilateral glenohumeral arthritis with severe glenoid bone loss PLAN DIAGNOSIS: (M25.512, G89.29) Chronic left shoulder pain (primary encounter diagnosis) (M19.011, M19.012) Primary osteoarthritis of both shoulders (M75.22) Biceps tendinitis of left shoulder (M75.21) Biceps tendinitis of right upper extremity (M75.82) Rotator cuff tendinitis, left Bilateral glenohumeral arthritis. Left side worse than right. Discussed with the patient due to severe bone loss would consider doing a reverse shoulder replacement. Discussed that the goal would be to get him home however if he needs ambulatory assistance to avoid weightbearing on left upper extremity he may have a short fpc facility stay. I discussed the below risks, expected postoperative course. Will get a preoperative CT scan. Will plan for a shoulder reverse replacement Risks, Benefits, Alternatives of reverse shoulder replacement left surgery discussed with patient and their family. They are aware of the risks including but not limited to infection, bleeding/vessel injury, nerve injury, DVT, PE, hardware failure and complications, need for revision surgery, fracture and wound healing issues. Discussion of anesthetic complications including block related complications, post-op medical complications such as [place]/pneumonia/etc, and were also discussed, and patient advised to discuss further with preoperative clearance physicians and anesthesia team prior to surgery. All questions were answered for patient today, they should not hesitate to call the office with any issues. Medical Decision Making: Medical Decision Making Level: 1 - N/A Hung Jacobsen MD Allergies As of Date: 06/18/2024 Noted Allergy Reaction SIMVASTATIN 05/10/2018 16 - Unknown Date Reviewed: 06/18/2024 Reviewed by: Ana Lilia Quiroga MA - Fully Assessed Reason for Visit: Established Patient [175] Follow Up [171] Pain [78] Established Patient [175] Follow Up [171] Pain [78] Primary Visit Diagnosis:Chronic left shoulder pain [M25.512, G89.29] Other Visit Diagnoses:Primary osteoarthritis of both shoulders [M19.011, M19.012] Biceps tendinitis of left shoulder [M75.22] Biceps tendinitis (more content not included)... Normal [facility] Cardiac echo study Procedure on 03-25-2024 Aortic root 2.90 cm [employer] AV mean gradient 11.00 mmHg [employer] AV peak gradient 18.66 mmHg [facility] AV peak balbina 216.00 cm/s [facility] AV valve area 2.40 cm2 [facility] AV Velocity Ratio 0.58 [facility] AV VTI 34.80 cm [facility] E wave deceleration time 268.00 msec [facility] E/A ratio 0.91 [facility] Echo EF Estimated 65 % [facility] EF 65 % [facility] Est. RA pressure 3 mmHg [facility] FS 30 % 28 - 44 % [facility] Interventricular Septum Diastolic Thickness by 2D 13.6 cm [facility] IVS 1.36 cm 0.6 - 1.1 cm [facility] LA size 4.50 cm [facility] LA volume 46.00 cm3 [facility] LA Volume Index 24.0 mL/m2 [facility] Left Ventricle Mass [id number] g [facility] LV Diastolic Volume 67.90 mL [facility] LV ESV A2C 43.10 mL [facility] LV ESV A4C 44.10 mL [facility] LV RWT 2D 50.32 [facility] LV Systolic Volume 24.10 mL [facility] LVIDd 4.69 cm [facility] LVIDs 3.26 cm [facility] LVOT diameter 2.30 cm [facility] LVOT peak balbina 1.00 m/s [facility] LVOT peak VTI 20.10 cm [facility] LVOT stroke volume 83.51 ml [facility] MV E' average 6.0 cm/s [facility] MV Peak A Balbina 66.90 cm/s [facility] MV Peak E Balbina 60.60 cm/s [facility] MV pressure 1/2 time 78.00 ms [facility] MV TDI E' (medial) 4.93 cm/s [facility] MV valve area p 1/2 method 2.82 cm2 [facility] PW 1.18 cm 0.6 - 1.1 cm [facility] RA area 12.1 cm2 [facility] RV diastolic dimension (basal) 25.8 mm [facility] RV Peak Systolic Pressure 32 mmHg [facility] TDI 7.06 cm/s [facility] TR peak gradient 29.00 mmHg [facility] TR Peak Balbina 2.7 m/s [facility] Valve area - Index 1.2 [facility] Left ventricle appea rs normal in size with moderate focal basal increased wall thickness/hypertrophy. Remaining wall segments are mildly increased. Systolic function is normal with an ejection fraction of 60-65% and no segmental wall motion abnormalities. Aortic sclerosis without stenosis Mitral regurgitation, mild Tricuspid regurgitation, mild Normal atria Left Ventricle Left ventricle appears normal in size. There is moderate focal basal increased wall thickness/hypertrophy. Remaining wall segments are mildly increased. Systolic function is normal with an ejection fraction of 60-65%. No obvious regional wall motion abnormalities. There is no diastolic dysfunction and normal left atrial pressure. Lateral E' is 7.06 cm/s. Medial E' is 4.93 cm/s. Average E' is 6.0 cm/s. Right Ventricle Right ventricular size appears normal. The right ventricular basal diameter is 25.8 mm. Systolic function visually appears normal. Left Atrium Left atrium volume index is normal. The left atrial volume index is 24.0 mL/m2. Right Atrium Right atrium is normal in size. The right atrial area is 12.1 cm2. IVC/SVC The right atrial pressure is estimated at 3 mmHg. IVC appears normal. There is normal collapse with deep inspiration. Mitral Valve Mitral valve structure is normal. The chordae are thickened/calcified. There is bolri-wy-cxof regurgitation. There is no evidence of mitral valve stenosis. Tricuspid Valve Tricuspid valve appears to be normal. There is mild regurgitation. RVSP calculated at 32 mmHg. RVSP is based on RA pressure of 3 mmHg. Aortic Valve The aortic valve is trileaflet. The leaflets exhibit focal thickening. There is sclerosis. There is trace to mild regurgitation. There is no evidence of aortic valve stenosis. Pulmonic Valve The pulmonic valve was not well visualized. There is trace to mild regurgitation. Ascending Aorta The aortic root is normal in size. Pericardium There is no pericardial effusion. The pericardium has a fat pad. Study Details A complete echo was performed using complete 2D, color flow Doppler and spectral Doppler. Overall the study quality was adequate. Wall Scoring Baseline Score Index: 1.00 The left ventricular wall motion is normal. XCELERA [facility] Radiology Study observation (narrative) [facility] Cobalamin (Vitamin B12) [Mas s/Vol]on 03-25-2024 Interpretation and review of laboratory results Abnormal [facility] Folateon 03-25-2024 Folate [Mass/Vol] ng/mL 5.8 - PINF ng/mL [facility] Comment on above: NEW REFERENCE RANGE Folate [Mass/Vol]on 03-25-20 24 [facility] FOLIC ACID >25.0 Normal >5.8 [facility] Comment on above: Result Comment: NEW REFERENCE RANGE Performed By: #### S PE, 94577-8, 2284-8, 2132-9 ####[facility] ([id number])[address] [place] [address], [place] [address] Glucose Glucometer (BldC) [M ass/Vol]on 03-25-2024 Glucose [Mass/Vol] 146 mg/dL High 65 - 99 mg/dL [facility] Interpretation and review of laboratory results Abnormal [facility] Glucose [Mass/Vol] 146 mg/dL High 65-99 [facility] Glucose [Mass/Vol] 139 mg/dL High 65 - 99 mg/dL [facility] Interpretation and review of laboratory results Abnormal [facility] Glucose [Mass/Vol] 139 mg/dL High 65-99 [facility] Glucose [Mass/Vol] 104 mg/dL High 65 - 99 mg/dL [facility] Interpretation and review of laboratory results Abnormal [facility] Glucose [Mass/Vol] 104 mg/dL High 65-99 [facility] Hemoglobin A1con 03-25-2024 Average glucose Estimated from glycated hemoglobin (Bld) [Mass/Vol] 128 mg/dL [facility] HbA1c (Bld) [Mass fraction] 6.1 % High 4.4 - 5.6 % [facility] Comment on above: NOTE ADA Guidelines Result HgbA1c Normal : less than 5.7 % Prediabetes : 5.7 % to 6.4 % Diabetes : > 6.4 % Use with caution in patients with abnormal hemoglobin variants as the half-life of red blood cells and in vivo glycation rates are affected. Interpretation and review of laboratory results Abnormal [facility] Lipid 1996 panelon 4 Cholesterol [Mass/Vol] 179 mg/dL 150 - 200 mg/dL [facility] Cholesterol in HDL [Mass/Vol] 50 mg/dL 39 - PINF mg/dL [facility] Comment on above: HDL <40 mg/dL - High Risk HDL > or = 40mg/dL- Desirable HDL >60 mg/dL - Negative Risk Cholesterol in LDL [Mass/Vol] 112 mg/dL NINF - 130 mg/dL [facility] Comment on above: LDL <100 mg/dL - Desirable LDL >160 mg/dL - High Risk Cholesterol in VLDL [Mass/Vol] 17 mg/dL 0 - 30 mg/dL [facility] Cholesterol.total/Ch olesterol in HDL [Mass ratio] 3.6 {ratio} 1.0 - 5.0 [facility] Triglyceride [Mass/Vol] 87 mg/dL 27 - 150 mg/dL [facility] Cholesterol [Mass/Vol] 179 mg/dL Normal 150-200 [facility] Comment on above: Performed By: #### S , 02618-2, 2284-8, 2132-9 ####[facility] ([id number])[address] [place] [address], [place] [address] Cholesterol in HDL [Mass/Vol] 50 mg/dL Normal >39 [facility] Comment on above: Result Comment: HDL <40 mg/dL - High Risk HDL > or = 40mg/dL- Desirable HDL >60 mg/dL - Negative Risk Performed By: #### Cody DICKEY, 95118-3, 2284-03, 2132-04 ####[facility] ([id number])[address], [address] [place] [address] Cholesterol in LDL [Mass/Vol] 112 mg/dL Normal <130 [facility] Comment on above: Result Comment: LDL <100 mg/dL - Desirable LDL >160 mg/dL - High Risk Performed By: #### Cody DICKEY, 66925-3, 2284-03, 2132-04 ####[facility] ([id number])[address], [address] [place] [address] Cholesterol in VLDL [Mass/Vol] 17 mg/dL Normal 0-30 [facility] Comment on above: Performed By: #### Cody DICKEY, 96080-2, 2284-03, 2132-04 ####[facility] ([id number])[address], [address] [place] [address], [place] [address] CHOLESTEROL:HDL 3.6 Normal 1.0-5.0 [facility] Comment on above: Performed By: #### Cody DICKEY, 15455-7, 2284-03, 2132-04 ####[facility] ([id number])[address], [address] [place] [address], [place] [address] Triglyceride [Mass/Vol] 87 mg/dL Normal 27-150 [facility] Comment on above: Performed By: #### Cody DICKEY, 49845-9, 2284-03, 2132-04 ####[facility] ([id number])[address], [address], [place] [address] MR BRAIN WO CONTon MR BRAIN WO CONT MR BRAIN WO CONT MRI BRAIN WITHOUT CONTRAST HISTORY: TIA, double vision COMPARISON: CT head and CTA head 03/24/2024 TECHNIQUE: Routine multiplanar multisequence MR imaging of the brain was performed without contrast. FINDINGS: Visualized intraorbital structures and facial soft tissues are unremarkable. No extra-axial fluid collection/hemorrhage. No mass or mass effect. Chronic microvascular ischemic changes in the periventricular and deep cerebral white matter. Punctate foci of restricted diffusion in the right occipital cortex and questionably in the inferomedial left thalamus (diffusion image 12). No evidence of old hemorrhage or abnormal mineralization on the gradient images. Midline structures are unremarkable. IMPRESSION: * Punctate foci of acute ischemia in the right occipital cortex and questionably in the inferomedial left thalamus. Finalized by Aris Hui MD on 03/25/2024 9:49 AM [facility] MR Brain WO contraston 03-25 MRI BRAIN WITHOUT CONTRAST HISTORY: TIA, double vision COMPARISON: CT head and CTA head 03/24/2024 TECHNIQUE: Routine multiplanar multisequence MR imaging of the brain was performed without contrast. FINDINGS: Visualized intraorbital structures and facial soft tissues are unremarkable. No extra-axial fluid collection/hemorrhage. No mass or mass effect. Chronic microvascular ischemic changes in the periventricular and deep cerebral white matter. Punctate foci of restricted diffusion in the right occipital cortex and questionably in the inferomedial left thalamus (diffusion image 12). No evidence of old hemorrhage or abnormal mineralization on the gradient images. Midline structures are unremarkable. IMPRESSION: * Punctate foci of acute ischemia in the right occipital cortex and questionably in the inferomedial left thalamus. Finalized by Aris Hui MD on 03/25/2024 9:49 AM [facility] Aris Hui MD - 03/25/2024 MRI BRAIN WITHOUT CONTRAST HISTORY: TIA, double vision COMPARISON: CT head and CTA head 03/24/2024 TECHNIQUE: Routine multiplanar multisequence MR imaging of the brain was performed without contrast. FINDINGS: Visualized intraorbital structures and facial soft tissues are unremarkable. No extra-axial fluid collection/hemorrhage. No mass or mass effect. Chronic microvascular ischemic changes in the periventricular and deep cerebral white matter. Punctate foci of restricted diffusion in the right occipital cortex and questionably in the inferomedial left thalamus (diffusion image 12). No evidence of old hemorrhage or abnormal mineralization on the gradient images. Midline structures are unremarkable. IMPRESSION: * Punctate foci of acute ischemia in the right occipital cortex and questionably in the inferomedial left thalamus. Finalized by Aris Hui MD on 03/25/2024 9:49 AM [facility] Radiology Study observation (narrative) [facility] MR Brain WO contrastOrdered By: Aris Hui on 03-25-2024 [facility] Work Phone: SERUM PROTEIN ELECTROPHORESI Son 03-25-2024 Albumin [Mass/Vol] 3.2 g/dL Low 3.4-5.3 [facility] Comment on above: Performed By: #### S , 29522-0, 2284-03, 2132-04 ####[facility] ([id number])[address], [address] [place] [address] ALPHA 1 GLOBULIN 0.2 g/dL Normal 0.1-0.4 [facility] Comment on above: Performed By: #### S PE, 12909-1, 2284-03, 2132-04 ####[facility] ([id number])[address], [address] [place] [address] ALPHA 2 GLOBULIN 0.7 g/dL Normal 0.4-1.1 [facility] Comment on above: Performed By: #### S PE, 23633-3, 2284-03, 2132-04 ####[facility] ([id number])[address], [address] [address] BETA GLOBULIN 0.6 g/dL Normal 0.5-1.2 [facility] Comment on above: Performed By: #### S PE, 58571-4, 2284-03, 2132-04 ####[facility] ([id number])[address] [address] GAMMA GLOBULIN 0.6 g/dL Normal 0.5-1.6 [facility] Comment on above: Performed By: #### Cody KELI, 17886-5, 2284-03, 2132-04 ####[facility] ([id number])[address] [address] PROT. ELECTROPHORESIS INTERP Unremarkable protein distribution, no monoclonal bands. Normal [facility] Comment on above: Performed By: #### S KELI, 95915-2, 2284-03, 2132-04 ####[facility] ([id number])[address] [address] Protein [Mass/Vol] 5.4 g/dL Low 6.0-8.0 [facility] Comment on above: Performed By: #### Cody KELI, 83488-4, 2284-03, 2132-04 ####[facility] ([id number])[address] [address] Thyroid profile includes TSH FT4on 03-25-2024 Free T4 [Mass/Vol] 0.98 ng/dL 0.61 - 1.60 ng/dL [facility] TSH Qn 4.62 m[IU]/L [facility] VITAMIN B12on 03-25-2024 Cobalamin (Vitamin B12) [Mass/Vol] 142 pg/mL Low 180-914 [facility] Comment on above: Performed By: #### S KELI, 10340-8, 2284-03, 2132-04 ####[facility] ([id number])[address] [address] Vitamin B12on 03-25-2024 Cobalamin (Vitamin B12) [Mass/Vol] 142 pg/mL Low 180 - 914 pg/mL [facility] APTTon 03-24-2024 aPTT Coag (PPP) [Time] 33 s [facility] Comment on above: NEW REFERENCE RANGE BASIC METABOLIC PANLon 03-24 Anion gap [Moles/Vol] 7 mmol/L Normal 5-15 [facility] Comment on above: Performed By: #### C BCA, BMP, PINR, 35041-2, 73576-1 #### [facility] ([id number]) [address] [place] [address] #### THYR, HA1C #### [facility] ([id number]) [address], [address] [place] [address] Calcium [Mass/Vol] 10.1 mg/dL Normal 8.5-10.5 [facility] Comment on above: Performed By: #### C BCA, BMP, PINR, 13963-7, 51128-4 #### [facility] ([id number]) [address] [place] [address] #### THYR, HA1C #### [facility] ([id number]) [address] [facility] [address], [address] [place] [address] Chloride [Moles/Vol] 102 mmol/L Normal 98-109 [facility] Comment on above: Performed By: #### C BCA, BMP, PINR, 20122-6, 45799-5 #### [facility] ([id number]) [address] [place] [address] #### THYR, HA1C #### [facility] ([id number]) [address], [address] [place] [address] CO2 [Moles/Vol] 25 mmol/L Normal 22-32 [facility] Comment on above: Performed By: #### C BCA, BMP, PINR, 46623-2, 72703-8 #### [facility] ([id number]) [address] [place] [address] #### THYR, HA1C #### [facility] ([id number]) [address], [address] [place] [address] Creatinine [Mass/Vol] 0.86 mg/dL Normal 0.70-1.20 [facility] Comment on above: Result Comment: METH OD TRACEABLE TO IDMS STANDARD Performed By: #### C BCA, BMP, PINR, 00000-3, 10522-2 #### [facility] ([id number]) [address] [place] [address] #### THYR, HA1C #### [facility] ([id number]) [address], [address] [place] [address] GFR/1.73 sq M.predicted among non-blacks MDRD (S/P/Bld) [Vol rate/Area] 88 mL/min/{1.73_m2} Normal >59 [facility] Comment on above: Result Comment: Reported eGFR is based on the CKD-EPI 2020 equation that does not use a race coefficient. Performed By: #### C BCA, BMP, PINR, 83102-1, 43120-7 #### [facility] ([id number]) [address] [place] [address] #### THYR, HA1C #### [facility] ([id number]) [address], [address] [place] [address] Glucose [Mass/Vol] 99 mg/dL Normal 65-99 [facility] Comment on above: Performed By: #### C BCA, BMP, PINR, 54429-0, 03445-1 #### [facility] ([id number]) [address] [place] [address] #### THYR, HA1C #### [facility] ([id number]) [address], [address] [place] [address] Potassium [Moles/Vol] 3.8 mmol/L Normal 3.5-5.0 [facility] Comment on above: Performed By: #### C BCA, BMP, PINR, 27301-8, 73746-3 #### [facility] ([id number]) [address] [place] [address] #### THYR, HA1C #### [facility] ([id number]) [address] [address], [address] [place] [address] Sodium [Moles/Vol] 134 mmol/L Normal 134-146 [facility] Comment on above: Performed By: #### C BCA, BMP, PINR, 40042-4, 35017-8 #### [facility] ([id number]) [address] [place] [address] #### THYR, HA1C #### [facility] ([id number]) [address] [facility] [address], [address] [place] [address] Urea nitrogen [Mass/Vol] 17 mg/dL Normal 5-27 [facility] Comment on above: Performed By: #### C BCA, BMP, PINR, 84315-6, 43365-6 #### [facility] ([id number]) [address] [place] [address] #### THYR, HA1C #### [facility] ([id number]) [address] [facility] [address], [address] [place] [address] Basic Metabolic Panelon 03-14 Anion gap [Moles/Vol] 7 mmol/L 5 - 15 mmol/L [facility] Calcium [Mass/Vol] 10.1 mg/dL 8.5 - 10. 5 mg/dL [facility] Chloride [Moles/Vol] 102 mmol/L 98 - 10 9 mmol/L [facility] CO2 [Moles/Vol] 25 mmol/L 22 - 32 mmol/L [facility] Creatinine [Mass/Vol] 0.86 mg/dL 0.70 - 1.20 mg/dL [facility] Comment on above: METHOD TRACEABLE TO IDMS STANDARD eGFR (CKD-EPI)non-race dependent 88 - PINF [facility] [facility] Comment on above: Reported eGFR is based on the CKD-EPI 2020 equation that does not use a race coefficient. Glucose [Mass/Vol] 99 mg/dL 65 - 99 mg/dL [facility] Potassium [Moles/Vol] 3.8 mmol/L 3.5 - 5.0 mmol/L [facility] Sodium [Moles/Vol] 134 mmol/L 134 - 146 mmol/L [facility] Urea nitrogen [Mass/Vol] 17 mg/dL 5 - 27 mg/dL [facility] CBC AND AUTO DIFFon 03-24-20 24 ABSOLUTE BASOPHIL 0.0 X10E9/L Normal 0.0-0.2 [facility] Comment on above: Performed By: #### C BCA, BMP, PINR, 80326-2, 47104-6 #### [facility] ([id number]) [address] [place] [address] #### THYR, HA1C #### [facility] ([id number]) [address], [address] [place] [address] ABSOLUTE NEUTROPHIL 3.8 X10E9/L Normal 1.5-6.6 [facility] Comment on above: Performed By: #### C BCA, BMP, PINR, 43741-8, 35835-9 #### [facility] ([id number]) [address] [place] [address] #### THYR, HA1C #### [facility] ([id number]) [address], [address] [place] [address] Basophils/100 WBC (Bld) 0.6 % Normal [facility] Comment on above: Performed By: #### C BCA, BMP, PINR, 16639-0, 76940-4 #### [facility] ([id number]) [address] [place] [address] #### THYR, HA1C #### [facility] ([id number]) [address], [address] [place] [address] Eosinophils (Bld) [#/Vol] 0.1 10*3/uL Normal 0.0-0.4 [facility] Comment on above: Performed By: #### C BCA, BMP, PINR, 67336-2, 69588-5 #### [facility] ([id number]) [address] [place] [address] #### THYR, HA1C #### [facility] ([id number]) [address], [address] [place] [address] Eosinophils/100 WBC (Bld) 2.0 % Normal [facility] Comment on above: Performed By: #### C BCA, BMP, PINR, 73508-4, 10443-5 #### [facility] ([id number]) [address] [place] [address] #### THYR, HA1C #### [facility] ([id number]) [address], [address] [place] [address] Erythrocyte distribution width (RBC) [Ratio] 17.5 % High 11.5-15.0 [facility] Comment on above: Performed By: #### C BCA, BMP, PINR, 13297-8, 64773-8 #### [facility] ([id number]) [address] [place] [address] #### THYR, HA1C #### [facility] ([id number]) [address], [address] [place] [address] Hematocrit (Bld) [Volume fraction] 42.2 % Normal 39-49 [facility] Comment on above: Performed By: #### C BCA, BMP, PINR, 30692-8, 14818-7 #### [facility] ([id number]) [address] [place] [address] #### THYR, HA1C #### [facility] ([id number]) [address], [address] [place] [address] Hemoglobin (Bld) [Mass/Vol] 13.9 g/dL Normal 13.0-17.0 [facility] Comment on above: Performed By: #### C BCA, BMP, PINR, 22463-5, 23593-9 #### [facility] ([id number]) [address] [place] [address] #### THYR, HA1C #### [facility] ([id number]) [address], [address] [place] [address] Lymphocytes (Bld) [#/Vol] 2.0 10*3/uL Normal 1.0-3.5 [facility] Comment on above: Performed By: #### C BCA, BMP, PINR, 98252-6, 56657-0 #### [facility] ([id number]) [address] [place] [address] #### THYR, HA1C #### [facility] ([id number]) [address], [address] [place] [address] Lymphocytes/100 WBC (Bld) 29.7 % Normal [facility] Comment on above: Performed By: #### C BCA, BMP, PINR, 11277-7, 47029-7 #### [facility] ([id number]) [address] [place] [address] #### THYR, HA1C #### [facility] ([id number]) [address], [address] [place] [address] MCH (RBC) [Entitic mass] 27.8 pg Normal 27-34 [facility] Comment on above: Performed By: #### C BCA, BMP, PINR, 36969-9, 14637-4 #### [facility] ([id number]) [address] [place] [address] #### THYR, HA1C #### [facility] ([id number]) [address], [address] [place] [address] MCHC (RBC) [Mass/Vol] 33.0 g/dL Normal 32-36 [facility] Comment on above: Performed By: #### C BCA, BMP, PINR, 41872-8, 62123-1 #### [facility] ([id number]) [address] [place] [address] #### THYR, HA1C #### [facility] ([id number]) [address], [address] [place] [address] MCV (RBC) [Entitic vol] 84 fL Normal 80-100 [facility] Comment on above: Performed By: #### C BCA, BMP, PINR, 15155-5, 31006-9 #### [facility] ([id number]) [address] [place] [address] #### THYR, HA1C #### [facility] ([id number]) [address], [address] [place] [address] Monocytes (Bld) [#/Vol] 0.6 10*3/uL Normal 0-0.9 [facility] Comment on above: Performed By: #### C BCA, BMP, PINR, 82057-9, 71227-9 #### [facility] ([id number]) [address] [place] [address] #### THYR, HA1C #### [facility] ([id number]) [address], [address] [place] [address] Monocytes/100 WBC (Bld) 9.7 % Normal [facility] Comment on above: Performed By: #### C BCA, BMP, PINR, 55997-5, 60422-2 #### [facility] ([id number]) [address] [place] [address]170 #### THYR, HA1C #### [facility] ([id number]) [address], [address] [place] [address] Neutrophils/100 WBC (Bld) 58.0 % Normal [facility] Comment on above: Performed By: #### C BCA, BMP, PINR, 93667-6, 73325-5 #### [facility] ([id number]) [address] [place] [address] #### THYR, HA1C #### [facility] ([id number]) [address], [address] [place] [address] Platelet mean volume (Bld) [Entitic vol] 8.3 fL Normal 7-12 [facility] Comment on above: Performed By: #### C BCA, BMP, PINR, 78584-7, 49020-3 #### [facility] ([id number]) [address] [place] [address]293 #### THYR, HA1C #### [facility] ([id number]) [address], [address] [place] [address] Platelets (Bld) [#/Vol] 263 10*3/uL Normal 150-450 [facility] Comment on above: Performed By: #### C BCA, BMP, PINR, 57315-3, 94138-2 #### [facility] ([id number]) [address] [place] [address] #### THYR, HA1C #### [facility] ([id number]) [address], [address] [place] [address] RBC COUNT 5.01 X10E12/L Normal 4.10-5.70 [facility] Comment on above: Performed By: #### C BCA, BMP, PINR, 20148-1, 83124-2 #### [facility] ([id number]) [address] [place] [address] #### THYR, HA1C #### [facility] ([id number]) [address] [facility] [address] [place] [address] WBC (Bld) [#/Vol] 6.6 10*3/uL Normal 4.0-11.0 [facility] Comment on above: Performed By: #### C ARBEN, BMP, PINR, 73742-6, 81852-4 #### [facility] ([id number]) [address] [place] [address] #### THYR, HA1C #### [facility] ([id number]) [address], [address] [place] [address] CBC auto differentialon 03-14 Basophils (Bld) [#/Vol] 0.0 10*3/uL [facility] Basophils/100 WBC (Bld) 0.6 % [facility] Eosinophils (Bld) [#/Vol] 0.1 10*3/uL [facility] Eosinophils/100 WBC (Bld) 2.0 % [facility] Erythrocyte distribution width (RBC) [Ratio] 17.5 % High 11.5 - 15.0 % [facility] Hematocrit (Bld) [Volume fraction] 42.2 % 39 - 49 % [facility] Hemoglobin (Bld) [Mass/Vol] 13.9 g/dL 13.0 - 17.0 g/dL [facility] Interpretation and review of laboratory results Abnormal [facility] Lymphocytes (Bld) [#/Vol] 2.0 10*3/uL [facility] Lymphocytes/100 WBC (Bld) 29.7 % [facility] MCH (RBC) [Entitic mass] 27.8 pg 27 - 34 pg [facility] MCHC (RBC) [Mass/Vol] 33.0 g/dL 32 - 36 g/dL [facility] MCV (RBC) [Entitic vol] 84 fL 80 - 100 fL [facility] Monocytes (Bld) [#/Vol] 0.6 10*3/uL [facility] Monocytes/100 WBC (Bld) 9.7 % [facility] Neutrophils (Bld) [#/Vol] 3.8 10*3/uL [facility] Neutrophils/100 WBC (Bld) 58.0 % [facility] Platelet mean volume (Bld) [Entitic vol] 8.3 fL 7 - 12 fL [facility] Platelets (Bld) [#/Vol] 263 10*3/uL [facility] RBC (Bld) [#/Vol] 5.01 10*6/uL [facility] WBC corrected for nucl RBC Auto (Bld) [#/Vol] 6.6 [facility] CT BRAIN WO CONT STROKE ALER Ton 03-24-2024 CT BRAIN WO CONT STROKE ALERT CT BRAIN WO CONT STROKE ALERT CT BRAIN WO CONT STROKE ALERT HISTORY: Neuro deficit, acute stroke suspected COMPARISON: None TECHNIQUE: * CT brain without intravenous contrast. Automated exposure control was utilized. * All CT scans at this facility use dose modulation, iterative reconstruction, and/or weight based dosing when appropriate to reduce radiation dose to as low as reasonably achievable. FINDINGS: No acute intracranial hemorrhage, territorial infarct, mass effect, or shift of midline structure. The cerebral volume, ventricles, cisterns, and sulci appear appropriate for patient age. Small hypoattenuating focus in the left caudate nucleus (series 2 image 29]. Intraorbital contents appear unremarkable. Paranasal sinuses and mastoid air cells appear well aerated. IMPRESSION: * No acute intracranial findings. 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 Approved by Resident: Vince Caldwell MD on 03/24/2024 1:31 PM I, Graham Ward MD have personally reviewed the image(s) and agree with and/or edited the report Finalized by Graham Ward MD on 03/24/2024 1:47 PM Normal [facility] CT CTA CAROTIDon 03-24-[address] CTA CAROTID CLINICAL INFORMATION: Neuro deficit, acute, stroke suspected TECHNIQUE: CT angiogram performed following intravenous administration of nonionic intravenous contrast. Coronal and sagittal and 3-D volume rendered maximum intensity projection images generated and reviewed under concurrent physician supervision. Automated exposure control utilized. The [place] Symptomatic Carotid Endarterectomy Trial (NASCET) method for calculating the degree of stenosis was utilized for stenosis measurements. All CT scans at this facility use dose modulation, iterative reconstruction, and/or weight based dosing when appropriate to reduce radiation dose to as low as reasonably achievable. COMPARISON: No relevant prior studies available. FINDINGS: The visualized portions of the aortic arch are widely patent. The origins of the great vessels are widely patent. On the right, dense atherosclerotic calcifications are seen throughout the right common carotid artery. Heart and soft plaque formation are seen in the right common carotid bifurcation extending into the right internal carotid artery. There is a 60% stenosis in the proximal right internal carotid artery. The remainder the right internal carotid arteries patent. The right external carotid arteries patent. On the left, the left common, internal, and external carotid arteries are patent. Atherosclerotic plaques are seen throughout the left common and internal carotid arteries, however, no hemodynamically significant stenoses are identified. The vertebral arteries are patent bilaterally. IMPRESSION: * 60% stenosis of the proximal right internal carotid artery. * Otherwise normal CT angiogram of the carotid arteries. Finalized by Graham Ward MD on 03/24/2024 2:19 PM Normal [facility] CT CTA HEADon 03-24-[address] CTA HEAD CLINICAL INFORMATION: Neuro deficit, acute, stroke suspected TECHNIQUE: CT angiogram of the head was performed following intravenous administration of nonionic intravenous contrast. 3-D maximum intensity projection images generated and reviewed under concurrent physician supervision. Automated exposure control was utilized. Arterial blood flow was measured to assist the stroke clinical team in the diagnosis of large vessel occlusion in patients undergoing screening for acute ischemic stroke using Rapid AI software when clinically indicated. All CT scans at this facility use dose modulation, iterative reconstruction, and/or weight based dosing when appropriate to reduce radiation dose to as low as reasonably achievable. COMPARISON: No relevant prior studies available. FINDINGS: The intracranial portions of the internal carotid arteries widely patent bilaterally. The anterior and middle cerebral arteries are also widely patent and unremarkable. No stenoses, occlusions, or aneurysms are identified. The vertebrobasilar system is normal in appearance. No basilar tip aneurysms are seen. IMPRESSION: * Normal CT angiogram of the intracranial vessels. Finalized by Graham Ward MD on 03/24/2024 2:03 PM Normal [facility] CT Headon 03-24-2024 CT BRAIN WO CONT STR BRANDON ALERT HISTORY: Neuro deficit, acute stroke suspected COMPARISON: None TECHNIQUE: * CT brain without intravenous contrast. Automated exposure control was utilized. * All CT scans at this facility use dose modulation, iterative reconstruction, and/or weight based dosing when appropriate to reduce radiation dose to as low as reasonably achievable. FINDINGS: No acute intracranial hemorrhage, territorial infarct, mass effect, or shift of midline structure. The cerebral volume, ventricles, cisterns, and sulci appear appropriate for patient age. Small hypoattenuating focus in the left caudate nucleus (series 2 image 29]. Intraorbital contents appear unremarkable. Paranasal sinuses and mastoid air cells appear well aerated. IMPRESSION: * No acute intracranial findings. 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 Approved by Resident: Vince Caldwell MD on 03/24/2024 1:31 PM IGraham MD have personally reviewed the image(s) and agree with and/or edited the report Finalized by Graham Ward MD on 03/24/2024 1:47 PM SECT[facility] Graham Ward MD - 03/24/2024 CT BRAIN WO CONT STROKE ALERT HISTORY: Neuro deficit, acute stroke suspected COMPARISON: None TECHNIQUE: * CT brain without intravenous contrast. Automated exposure control was utilized. * All CT scans at this facility use dose modulation, iterative reconstruction, and/or weight based dosing when appropriate to reduce radiation dose to as low as reasonably achievable. FINDINGS: No acute intracranial hemorrhage, territorial infarct, mass effect, or shift of midline structure. The cerebral volume, ventricles, cisterns, and sulci appear appropriate for patient age. Small hypoattenuating focus in the left caudate nucleus (series 2 image 29]. Intraorbital contents appear unremarkable. Paranasal sinuses and mastoid air cells appear well aerated. IMPRESSION: * No acute intracranial findings. 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 Approved by Resident: Vince Caldwell MD on 03/24/2024 1:31 PM I, Graham Ward MD have personally reviewed the image(s) and agree with and/or edited the report Finalized by Graham Ward MD on 03/24/2024 1:47 PM [facility] Radiology Study observation (narrative) [facility] CT HeadOrdered By: Graham frederick on 03-24-2024 [facility] Work Phone: CTA Carotid artery W contras t Mac 03-24-2024 CLINICAL INFORMATION : Neuro deficit, acute, stroke suspected TECHNIQUE: CT angiogram performed following intravenous administration of nonionic intravenous contrast. Coronal and sagittal and 3-D volume rendered maximum intensity projection images generated and reviewed under concurrent physician supervision. Automated exposure control utilized. The [place] Symptomatic Carotid Endarterectomy Trial (NASCET) method for calculating the degree of stenosis was utilized for stenosis measurements. All CT scans at this facility use dose modulation, iterative reconstruction, and/or weight based dosing when appropriate to reduce radiation dose to as low as reasonably achievable. COMPARISON: No relevant prior studies available. FINDINGS: The visualized portions of the aortic arch are widely patent. The origins of the great vessels are widely patent. On the right, dense atherosclerotic calcifications are seen throughout the right common carotid artery. Heart and soft plaque formation are seen in the right common carotid bifurcation extending into the right internal carotid artery. There is a 60% stenosis in the proximal right internal carotid artery. The remainder the right internal carotid arteries patent. The right external carotid arteries patent. On the left, the left common, internal, and external carotid arteries are patent. Atherosclerotic plaques are seen throughout the left common and internal carotid arteries, however, no hemodynamically significant stenoses are identified. The vertebral arteries are patent bilaterally. IMPRESSION: * 60% stenosis of the proximal right internal carotid artery. * Otherwise normal CT angiogram of the carotid arteries. Finalized by Graham Ward MD on 03/24/2024 2:19 PM SECTRAPA Graham Ward MD - 03/24/2024 CLINICAL INFORMATION: Neuro deficit, acute, stroke suspected TECHNIQUE: CT angiogram performed following intravenous administration of nonionic intravenous contrast. Coronal and sagittal and 3-D volume rendered maximum intensity projection images generated and reviewed under concurrent physician supervision. Automated exposure control utilized. The [place] Symptomatic Carotid Endarterectomy Trial (NASCET) method for calculating the degree of stenosis was utilized for stenosis measurements. All CT scans at this facility use dose modulation, iterative reconstruction, and/or weight based dosing when appropriate to reduce radiation dose to as low as reasonably achievable. COMPARISON: No relevant prior studies available. FINDINGS: The visualized portions of the aortic arch are widely patent. The origins of the great vessels are widely patent. On the right, dense atherosclerotic calcifications are seen throughout the right common carotid artery. Heart and soft plaque formation are seen in the right common carotid bifurcation extending into the right internal carotid artery. There is a 60% stenosis in the proximal right internal carotid artery. The remainder the right internal carotid arteries patent. The right external carotid arteries patent. On the left, the left common, internal, and external carotid arteries are patent. Atherosclerotic plaques are seen throughout the left common and internal carotid arteries, however, no hemodynamically significant stenoses are identified. The vertebral arteries are patent bilaterally. IMPRESSION: * 60% stenosis of the proximal right internal carotid artery. * Otherwise normal CT angiogram of the carotid arteries. Finalized by Graham Ward MD on 03/24/2024 2:19 PM [facility] CT[facility] Head Arteries W contrast Mac 03-24-2024 CLINICAL INFORMATION : Neuro deficit, acute, stroke suspected TECHNIQUE: CT angiogram of the head was performed following intravenous administration of nonionic intravenous contrast. 3-D maximum intensity projection images generated and reviewed under concurrent physician supervision. Automated exposure control was utilized. Arterial blood flow was measured to assist the stroke clinical team in the diagnosis of large vessel occlusion in patients undergoing screening for acute ischemic stroke using Rapid AI software when clinically indicated. All CT scans at this facility use dose modulation, iterative reconstruction, and/or weight based dosing when appropriate to reduce radiation dose to as low as reasonably achievable. COMPARISON: No relevant prior studies available. FINDINGS: The intracranial portions of the internal carotid arteries widely patent bilaterally. The anterior and middle cerebral arteries are also widely patent and unremarkable. No stenoses, occlusions, or aneurysms are identified. The vertebrobasilar system is normal in appearance. No basilar tip aneurysms are seen. IMPRESSION: * Normal CT angiogram of the intracranial vessels. Finalized by Graham Ward MD on 03/24/2024 2:03 PM SE[facility] Graham Ward MD - 03/24/2024 CLINICAL INFORMATION: Neuro deficit, acute, stroke suspected TECHNIQUE: CT angiogram of the head was performed following intravenous administration of nonionic intravenous contrast. 3-D maximum intensity projection images generated and reviewed under concurrent physician supervision. Automated exposure control was utilized. Arterial blood flow was measured to assist the stroke clinical team in the diagnosis of large vessel occlusion in patients undergoing screening for acute ischemic stroke using Rapid AI software when clinically indicated. All CT scans at this facility use dose modulation, iterative reconstruction, and/or weight based dosing when appropriate to reduce radiation dose to as low as reasonably achievable. COMPARISON: No relevant prior studies available. FINDINGS: The intracranial portions of the internal carotid arteries widely patent bilaterally. The anterior and middle cerebral arteries are also widely patent and unremarkable. No stenoses, occlusions, or aneurysms are identified. The vertebrobasilar system is normal in appearance. No basilar tip aneurysms are seen. IMPRESSION: * Normal CT angiogram of the intracranial vessels. Finalized by Graham Ward MD on 03/24/2024 2:03 PM [facility] EKG 12 leadon 03-24-2024 TRACEMASTERVUE [facility] Glucose Glucometer (BldC) [M ass/Vol]on 03-24-2024 Glucose [Mass/Vol] 121 mg/dL High 65 - 99 mg/dL [facility] Interpretation and review of laboratory results Abnormal [facility] Glucose [Mass/Vol] 121 mg/dL High 65-99 [facility] Glucose [Mass/Vol] 91 mg/dL 65 - 99 mg/dL [facility] Glucose [Mass/Vol] 91 mg/dL Normal 65-99 [facility] HGB A1C (GLYCO-HGB)on 2023 Glucose [Mass/Vol] 128 mg/dL Normal [facility] Comment on above: Performed By: #### C BCA, BMP, PINR, 84360-5, 47809-9 ####[facility] ([id number])[address] [place] [address]#### THYR, HA1C ####[facility] ([id number])[address] [place] [address], [address] [address] HbA1c (Bld) [Mass fraction] 6.1 % High 4.4-5.6 [facility] Comment on above: Result Comment: NOTE ADA Guidelines Result HgbA1c Normal : less than 5.7 % Prediabetes : 5.7 % to 6.4 % Diabetes : > 6.4 % Use with caution in patients with abnormal hemoglobin variants as the half-life of red blood cells and in vivo glycation rates are affected. Performed By: #### C BCA, BMP, PINR, 05642-3, 67158-4 ####[facility] ([id number])[address] [place] [address]#### THYR, HA1C ####[facility] ([id number])05 [place] [address], [address] [address] No Panel Informationon 03-24 [facility] Radiology Study observation (narrative) [facility] POCT Nursing Urine Macroscop ic UAon 03-24-2024 Bilirubin Ql (U) Negative Negative^N egative [facility] Glucose [Mass/Vol] Negative Negative^ N egative mg/dL [facility] Hemoglobin Ql (U) Trace Abnormal Negative^N egative [facility] Interpretation and review of laboratory results Abnormal [facility] Ketones (U) [Mass/Vol] Negative Negative^N egative mg/dL [facility] Leukocyte esterase Test strip Ql (U) Negative Negative^N egative [facility] Nitrite Ql (U) Negative Negative^N egative [facility] pH (U) 7.0 [pH] 5.0 - 8.5 [facility] Protein Ql (U) Negative Negative^N egative mg/dL [facility] Specific gravity (U) [Rel density] 1.015 1.003 - 1.035 [facility] Urobilinogen Qn (U) 0.2 NINF [facility] PROTIME AND INRon 03-24-2024 INR Coag (PPP) [Relative time] 0.9 {INR} Normal 0.8-1.1 [facility] Comment on above: Performed By: #### C RADHA THEODORE, PINR, 12541-4, 01347-5 #### [facility] ([id number]) [address] [place] [address] #### THYR, HA1C #### [facility] ([id number]) [address], [address] [place] [address] PT Coag (PPP) [Time] 10.3 s Normal 9.8-13.2 [facility] Comment on above: Result Comment: NEW REFERENCE RANGE Performed By: #### C RADHA THEODORE, PINR, 83101-8, 73923-1 #### [facility] ([id number]) [address] [place] [address] #### THYR, HA1C #### [facility] ([id number]) [address], [address] [place] [address] Protime & INRon 03-24-2024 INR Coag (PPP) [Relative time] 0.9 {INR} [facility] PT Coag (PPP) [Time] 10.3 s [facility] Comment on above: NEW REFERENCE RANGE THYROID PROFILEon 03-24-2024 Free T4 [Mass/Vol] 0.98 ng/dL Normal 0.61-1.60 [facility] Comment on above: Performed By: #### C BCA, BMP, PINR, 70470-7, 47478-0 #### [facility] ([id number]) [address] [place] [address] #### THYR, HA1C #### [facility] ([id number]) [address], [address] [place] [address] TSH 4.62 uIU/mL Normal 0.49-4.67 [facility] Comment on above: Performed By: #### C BCA, BMP, PINR, 48513-4, 48550-8 #### [facility] ([id number]) [address] [place] [address] #### THYR, HA1C #### [facility] ([id number]) [address], [address] [place] [address] Troponin I, High Sensitivity on 03-24-2024 Troponin I.cardiac High sensitivity method [Mass/Vol] 6 ng/L NINF - 21 ng/L [facility] Troponin I, High Sensitivity 1 Houron 03-24-2024 Troponin I.cardiac High sensitivity method [Mass/Vol] 6 ng/L [facility] ng/L [facility] Troponin I.cardiac High sens itivity method [Mass/Vol]on 03-24-2024 [facility] 1 HOUR TROP I, HIGH SENSITIVITY 6 ng/L Normal <21 [facility] Comment on above: Performed By: #### 8 9579-7 ####[facility] ([id number])[address] [place] [address] TROPONIN I, HIGH SENSITIVITY 6 ng/L Normal <21 [facility] Comment on above: Performed By: #### C BCA, BMP, PINR, 72566-6, 86015-8 #### [facility] ([id number]) [address] [place] [address] #### THYR, HA1C #### [facility] ([id number]) [address] [place] [address], [address] [place] [address] URN MACROSCOPIC NURon 2023 BILIRUBIN RODNEY Negative Normal NEG [facility] Comment on above: Performed By: #### N UM ####[facility] ([id number])[address] [place] [address], [place] [address] BLOOD/HGB RODNEY Trace Abnormal NEG [facility] Comment on above: Performed By: #### N UM ####[facility] ([id number])[address] [place] [address], [place] [address] GLUCOSE RODNEY Negative Normal NEG [facility] Comment on above: Performed By: #### N UM ####[facility] ([id number])[address] [place] [address], [place] [address] KETONES RODNEY Negative Normal NEG [facility] Comment on above: Performed By: #### N UM ####[facility] ([id number])[address] [place] [address], [place] [address] LEUKOCYTE ESTERASE RODNEY Negative Normal NEG [facility] Comment on above: Performed By: #### N UM ####[facility] ([id number])[address] [place] [address], [place] [address] NITRITE RODNEY Negative Normal NEG [facility] Comment on above: Performed By: #### N UM ####[facility] ([id number])[address] [place] [address], [place] [address] PH RODNEY 7.0 Normal 5.0-8.5 [facility] Comment on above: Performed By: #### N UM ####[facility] ([id number])[address] [place] [address], [place] [address] PROTEIN RODNEY Negative Normal NEG [facility] Comment on above: Performed By: #### N UM ####[facility] ([id number])[address] [place] [address] SPECIFIC GRAVITY RODNEY 1.015 Normal 1.003-1 .03 5 [facility] Comment on above: Performed By: #### N UM ####[facility] ([id number])[address] [place] [address] UROBILINOGEN RODNEY 0.2 eu/dL Normal <1.1 [facility] Comment on above: Performed By: #### N UM ####[facility] ([id number])[address] [place] [address] XR Chest Single viewon 03-24 Francisco Perdomo MD - 03/24/2024 Procedure: Chest x-ray performed Number of views:1 History:Shortness of breath COPD stroke alert Comparison:01/16/2023 Findings: The heart and lungs show no acute findings, and the mediastinum and julio are grossly negative . Impression: 1. No acute change. Finalized by Francisco Perdomo MD on 03/24/2024 2:33 PM [facility] Radiology Study observation (narrative) [facility] XR Chest Single viewOrdered By: Francisco Perdomo on 03-24-2024 [facility] Work Phone: aPTT Coag (PPP) [Time]on aPTT Coag (Bld) [Time] 33 s Normal 26-37 [facility] Comment on above: Result Comment: NEW REFERENCE RANGE Performed By: #### C BCA, BMP, PINR, 11421-0, 60768-0 #### [facility] ([id number]) [address] [place] [address] #### THYR, HA1C #### [facility] ([id number]) [address] [place] [address] CNOVon 02-23-2024 CNOV Office Visit (ORMN ) ----- TYLER TORRES ([id number]) 1945 M Date Time Provider Department 02/23/24 2:00 PM [facility] During your visit today, we recorded the following information about you: Hung Jacobsen MD 02/23/2024 5:26 PM Signed SHOULDER/ELBOW ESTABLISHED VISIT SERVICE DATE: 02/23/2024 PCP: Armando Richards MD CHIEF COMPLAINT: Bilateral shoulder follow-up SUBJECTIVE HISTORY OF PRESENT ILLNESS: 79 year old male R side is a 5, L side is a 8, last seen in November, 2-1/2 months was how long the injections lasted. Leg Strength is improving. 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 esomeprazole (NEXIUM) 40 mg capsule oxyCODONE IR (ROXICODONE) 5 mg immediate release tablet TAKE 1 TABLET (5 MG TOTAL) BY MOUTH IN THE MORNING AND 1 TABLET (5 MG TOTAL) BEFORE BEDTIME. DULoxetine (CYMBALTA) 30 mg capsule Take 30 mg by mouth. celecoxib (CELEBREX) 100 mg capsule Take by mouth. Melatonin 5 mg cap Take 5 mg by mouth. metFORMIN (GLUCOPHAGE) 500 mg tablet Take 500 mg by mouth. tamsulosin (FLOMAX) 0.4 mg Take 0.4 mg by mouth. oxyCODONE-acetaminophen (PERCOCET) 5-325 mg tablet Take by mouth. cyclobenzaprine (FLEXERIL) 5 mg tablet Take 5 mg by mouth three times a day. gabapentin (NEURONTIN) 300 mg capsule Take 1 capsule by mouth three times daily. OBJECTIVE There were no vitals taken for this visit. PHYSICAL EXAMINATION: Alert and oriented x3, ambulates from sit to stand with the aid of 1 arm. Painless neck ROM in all planes. Negative Spurling's. No radiating numbness or tingling past elbows. No visibile head, eyes, ear, neck, throat deformities L Shoulder ROM 100/0/SIJ R Shoulder ROM 80/0/SIJ Axillary, Long Thoracic, CN XI, Median, Ulnar, Radial, musculocutaneous nerves intact to motor and sensation. Fingers warm and well perfused, BCR< 2sec. Radial Pulse 2+ RADIOGRAPHIC RESULTS: Imaging was personally reviewed by myself today XR of Bilateral Shoulders today show severe GHOA. Medialization of joint line ASSESSMENT Bilateral glenohumeral arthritis PLAN DIAGNOSIS: (M19.011, M19.012) Primary osteoarthritis of both shoulders (primary encounter diagnosis) (M75.21) Biceps tendinitis of right upper extremity (M75.22) Biceps tendinitis of left shoulder (M75.81) Tendinitis of right rotator cuff (M75.82) Rotator cuff tendinitis, left Bilateral glenohumeral arthritis. Discussed continued surgical versus nonsurgical intervention. At this time, he is improved with his leg strength but not quite where he wants to be. Would recommend continued nonoperative management. He had good pain relief after bilateral glenohumeral injections. Follow-up with me as needed in 3 months or longer. Large Joint Arthro/Inj: R glenohumeral Informed Consent Consent Obtained: Verbal Warren Protocol A moment to CARE was completed. SIGN IN Personnel directly involved with the procedure wore the appropriate PPE. Special Equipment: Yes Patient/Surrogate Stated/Verified: Patient name, Date of , Relevant allergies and Intended procedure TIME OUT Intended patient and procedure match the source document(s). Consent documented and matches the intended procedure. Relevant labs, photos, and/or imaging studies have been reviewed. Correct side/site marked and visible. Medications required for procedure verified. No fire risk assessment and interventions applicable. No implant(s) inserted. 02/23/2024 2:52 PM The procedure site was prepped in the usual sterile fashion. Site: R glenohumeral Medications: 80 mg triamcinolone acetonide 40 mg/mL Anesthetics: 5 mL ROPivacaine (PF) 5 mg/mL (0.5 %) Outcome: Tolerated well, no immediate complications Post-injection instructions were reviewed with the patient and the patient voiced understanding of these instructions. SIGN OUT All instruments, equipment, possible retained foreign bodies accounted for. Patient had good pain relief after injection. Large Joint Arthro/Inj: L glenohumeral Informed Consent Consent Obtained: Verbal Warren Protocol A moment to CARE was completed. SIGN IN Sign in communication not applicable due to emergent procedure. Personnel directly involved with the procedure wore the appropriate PPE. Special Equipment: N/A Patient/Surrogate Stated/Verified: Patient name, Date of , Relevant allergies and Intended procedure TIME OUT Intended patient and procedure match the source document(s). Consent documented and matches the intended procedure. Relevant (more content not included)... Normal [facility] Large Joint Arthro/Inj: L gl bobohnitin 02-23-2024 Hung Jacobsen MD 5:26 PM Large Joint Arthro/Inj: L glenohumeral Informed Consent Consent Obtained: Verbal Warren Protocol A moment to CARE was completed. SIGN IN Sign in communication not applicable due to emergent procedure. Personnel directly involved with the procedure wore the appropriate PPE. Special Equipment: N/A Patient/Surrogate Stated/Verified: Patient name, Date of , Relevant allergies and Intended procedure TIME OUT Intended patient and procedure match the source document(s). Consent documented and matches the intended procedure. Relevant labs, photos, and/or imaging studies have been reviewed. Correct side/site marked and visible. Medications required for procedure verified. No fire risk assessment and interventions applicable. No implant(s) inserted. 02/23/2024 2:52 PM The procedure site was prepped in the usual sterile fashion. Site: L glenohumeral Medications: 80 mg triamcinolone acetonide 40 mg/mL Anesthetics: 5 mL ROPivacaine (PF) 5 mg/mL (0.5 %) Outcome: Tolerated well, no immediate complications Post-injection instructions were reviewed with the patient and the patient voiced understanding of these instructions. SIGN OUT All instruments, equipment, possible retained foreign bodies accounted for. Patient had good pain relief after injection. [facility] Large Joint Arthro/Inj: R gl enohdcn 02-23-2024 Hung Jacobsen MD 5:26 PM Large Joint Arthro/Inj: R glenohumeral Informed Consent Consent Obtained: Verbal Warren Protocol A moment to CARE was completed. SIGN IN Personnel directly involved with the procedure wore the appropriate PPE. Special Equipment: Yes Patient/Surrogate Stated/Verified: Patient name, Date of , Relevant allergies and Intended procedure TIME OUT Intended patient and procedure match the source document(s). Consent documented and matches the intended procedure. Relevant labs, photos, and/or imaging studies have been reviewed. Correct side/site marked and visible. Medications required for procedure verified. No fire risk assessment and interventions applicable. No implant(s) inserted. 02/23/2024 2:52 PM The procedure site was prepped in the usual sterile fashion. Site: R glenohumeral Medications: 80 mg triamcinolone acetonide 40 mg/mL Anesthetics: 5 mL ROPivacaine (PF) 5 mg/mL (0.5 %) Outcome: Tolerated well, no immediate complications Post-injection instructions were reviewed with the patient and the patient voiced understanding of these instructions. SIGN OUT All instruments, equipment, possible retained foreign bodies accounted for. Patient had good pain relief after injection. [facility] CNOVon 02-20-2024 CNOV Office Visit (SPSNAV ) ----- TYLER TORRES ([id number]) 1945 M Date Time Provider Department 02/20/24 3:15 PM Mahesh SMALL SPSNAV During your visit today, we recorded the following information about you: Mahesh Small MD 02/20/2024 3:29 PM Signed Spine Clinic Note [S] Doing ok. Chayo still recovering from index surgery. Feeling anxious but self reduced his Cymbalta dose. No change in exam [O] 5/5 BL U/L E except left HF at 4-/5 SILT except L3 on left with some paresetshais Incision CDI ASSESSMENT/PLAN No diagnosis found. Patient is doing well. He is feeling anxious and fatigued on todays visit for a total of 3 weeks which is directly linked to the time he self reduced his Cymbalta dose. We will see him in 6 months for repeat clinical and radiographic eval. I reviewed the information obtained and documented by the fellow. I examined the patient and evaluated all available films and pertinent documents. We discussed the case and I agree with the plans as outlined in this note. Mahesh Small MD 02/20/2024 3:29 PM Signed Tyler is now 6 months out from surgery. Overall he is making progress. He is complaining of a generalized sensation of fatigue that has gotten worse in the past few weeks. I suggested he talk to his primary care physician about this. He is also complaining of difficulty arising from a chair. This is not painful but he has been told as long as he needs to push himself out of a chair he cannot have his shoulders addressed. In examining him today he is actually pulling himself forward out of a chair and is not really axially loading his shoulders and potentially could have his shoulder addressed. He is walking up to half a mile at a time. Overall and he is making reasonable progress. He will continue with his activities as tolerated. I will see him back in 6 months time with new x-rays. 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 - oxyCODONE IR (ROXICODONE) 5 mg immediate release tablet TAKE 1 TABLET (5 MG TOTAL) BY MOUTH IN THE MORNING AND 1 TABLET (5 MG TOTAL) BEFORE BEDTIME. - DULoxetine (CYMBALTA) 30 mg capsule Take 30 mg by mouth. - cyclobenzaprine (FLEXERIL) 5 mg tablet Take 5 mg by mouth three times a day. - celecoxib (CELEBREX) 100 mg capsule Take by mouth. - gabapentin (NEURONTIN) 300 mg capsule Take 1 capsule by mouth three times daily. - Melatonin 5 mg cap Take 5 mg by mouth. - metFORMIN (GLUCOPHAGE) 500 mg tablet Take 500 mg by mouth. - tamsulosin (FLOMAX) 0.4 mg Take 0.4 mg by mouth. Problem List As Of Date 02/20/2024 Noted Resolved Chronic right shoulder pain [M25.511, G89.29] 03/13/2023 Type 2 diabetes mellitus without complication, *07/31/2023 Former smoker [Z87.891] 07/31/2023 Chronic obstructive pulmonary disease (HCC) [J4*07/31/2023 Lumbar stenosis with neurogenic claudication [M*08/24/2023 Status post lumbar spinal fusion [Z98.1] 08/24/2023 Encounter Status:Closed by Mahesh SMALL on 02/20/24 Normal [facility] RAD - Ultrasound Reporton RAD - Ultrasound Report [id number] [facility] Screenson 12-27-2023 Screens [id number] [facility] Ambulatory Visit Summaryon 0 12-26-2023 Ambulatory Visit Summary TYLER TORRES :1945 Visit Date:12/26/2023 Ambulatory Visit Instructions Your Diagnosis Kidney stones BPH with obstruction/lower urinary tract symptoms Your Care Team Attending Physician - BRANT Mireles APRN, Beatrice Jordan Primary Care Physician - ARMANDO RICHARDS MD This Is Your Medications List Contact prescribing physician if questions or concerns celecoxib (celecoxib 100 mg Cap) cetirizine cyclobenzaprine (cyclobenzaprine 5 mg Tab) duloxetine gabapentin (gabapentin 300 mg Cap) melatonin (Melatonin) metformin (metformin 500 mg oral tablet) omeprazole oxycodone (oxyCODONE 5 mg Cap) tamsulosin (tamsulosin 0.4 mg Cap) Procedures Performed Cystoscopic removal of ureteric stent (03/09/2023), Cystoscopic laser lithotripsy of ureteric calculus (03/01/2023), ESWL of kidney (05/18/2022), Back, Procedure on back. Discharge Vitals Heart Rate (Peripheral) 82 Respiratory Rate 16 Blood Pressure 133/81 Height 170 cm Height 67 in Weight 80 kg Weight 176 lb BMI 27.68 What to do next Scheduled Follow-Up Appointments Monday 10:45 AM EST With: Olu Sosa MD Where: [facility] Patient Educationon 12-26-19 Patient Education Nephrology Dietary Guidelines to Help Prevent Kidney Stones Kidney stones are deposits of minerals and salts that form inside your kidneys. Your risk of developing kidney stones may be greater depending on your diet, your lifestyle, the medicines you take, and whether you have certain medical conditions. Most people can lower their risks of developing kidney stones by following these dietary guidelines. Your dietitian may give you more specific instructions depending on your overall health and the type of kidney stones you tend to develop. What are tips for following this plan? Reading food labels ? Choose foods with no salt added or low-salt labels. Limit your salt (sodium) intake to less than 1,500 mg a day. ? Choose foods with calcium for each meal and snack. Try to eat about 300 mg of calcium at each meal. Foods that contain 200?500 mg of calcium a serving include: ? 8 oz (237 mL) of milk, tfmvqfq-bvtpkybcgdot-nmro y milk, and calcium-fortifiedfruit juice. Calcium-fortified means that calcium has been added to these drinks. ? 8 oz (237 mL) of kefir, yogurt, and soy yogurt. ? 4 oz (114 g) of tofu. ? 1 oz (28 g) of cheese. ? 1 cup (150 g) of dried figs. ? 1 cup (91 g) of cooked broccoli. ? One 3 oz (85 g) can of sardines or mackerel. Most people need 1,000?1,500 mg of calcium a day. Talk to your dietitian about how much calcium is recommended for you. Shopping ? Buy plenty of fresh fruits and vegetables. Most people do not need to avoid fruits and vegetables, even if these foods contain nutrients that may contribute to kidney stones. ? When shopping for convenience foods, choose: ? Whole pieces of fruit. ? Pre-made salads with dressing on the side. ? Low-fat fruit and yogurt smoothies. ? Avoid buying frozen meals or prepared deli foods. These can be high in sodium. ? Look for foods with live cultures, such as yogurt and kefir. ? Choose high-fiber grains, such as whole-wheat breads, oat bran, and wheat cereals. Cooking ? Do not add salt to food when cooking. Place a salt shaker on the table and allow each person to add their own salt to taste. ? Use vegetable protein, such as beans, textured vegetable protein (TVP), or tofu, instead of meat in pasta, casseroles, and soups. Meal planning ? Eat less salt, if told by your dietitian. To do this: ? Avoid eating processed or pre-made food. ? Avoid eating fast food. ? Eat less animal protein, including cheese, meat, poultry, or fish, if told by your dietitian. To do this: ? Limit the number of times you have meat, poultry, fish, or cheese each week. Eat a diet free of meat at least 2 days a week. ? Eat only one serving each day of meat, poultry, fish, or seafood. ? When you prepare animal proteins, cut pieces into small portion sizes. For most meat and fish, one serving is about the size of the palm of your hand. ? Eat at least five servings of fresh fruits and vegetables each day. To do this: ? Keep fruits and vegetables on hand for snacks. ? Eat one piece of fruit or a handful of berries with breakfast. ? Have a salad and fruit at lunch. ? Have two kinds of vegetables at dinner. ? You may be told to limit foods that are high in a substance called oxalate. These include: ? Spinach (cooked), rhubarb, beets, sweet potatoes, and Azerbaijani chard. ? Peanuts. ? Potato chips, malawian fries, and baked potatoes with skin on. ? Nuts and nut products. ? Chocolate. ? If you regularly take a diuretic medicine, make sure to eat at least 1 or 2 servings of fruits or vegetables that are high in potassium each day. These include: ? Avocado. ? Banana. ? [place], prune, carrot, or tomato juice. ? Baked potato. ? Cabbage. ? Beans and split peas. Lifestyle ? Drink enough fluid to keep your urine pale yellow. This is the most important thing you can do. Spread your fluid intake throughout the day. ? If you drink alcohol: ? Limit how much you have to: ? 0?1 drink a day for women who are not . ? 0?2 drinks a day for men. ? Know how much alcohol is in your drink. In the [place] one drink equals one 12 oz bottle of beer (355 mL), one 5 oz glass of wine (148 mL), or one 1? oz glass of hard liquor (44 mL). ? Lose weight if told by your health care provider. Work with your dietitian to find an eating plan and weight loss strategies that work best for you. General information ? Talk to your health care provider and dietitian about taking daily supplements. Depending on your health and the cause of your kidney stones, you may be told: ? Do not take high-dose supplements of vitamin C (1,000 mg a day or more). ? To take a calcium supplement. ? To take a daily probiotic supplement. ? To take other supplements such as magnesium, fish oil, or vitamin B6. ? Take ryui-zzl-dichaut and prescription medicines only as told by your health care provider. These include supplements. What foods sh (more content not included)... Normal [facility] [id number] Normal [facility] Urology Office/Clinic Noteon 12-26-2023 Urology Office/Clinic Note Chief Complaint ER f/u HPI Staff KML pt Last seen in our office 10/04/23 DX: Kidney Stone & BPH *Tamsulosin 0.4mg qd therapy Pt is here today for ER f/u Pt went to [facility] 12/10/23 CC: flank pain CT ap wo 12/10/23 ESTELLE & KUB 12/19/23 Has been straining urine. Has not noticed stone. Denies current flank pain. Denies visible blood in urine. Denies difficulty urinating, does have slow start to stream. History of Present Illness I have reviewed and verified the staff HPI to be accurate for this encounter. Portions of this record may have been created with voice recognition artificial intelligence software, specifically [employer], [employer] and or [employer]. Substitutions may have occurred due to the inherent limitations of voice recognition and artificial intelligence software. Review of Systems PHQ Score Initial Depression Screen Score: 0 SCORE Physical Exam Vitals & Measurements HR: 82(Peripheral) RR: 16 BP: 133/81 HT: 67 in HT: 170 cm WT: 80 kg WT: 176 lb BMI: 27.68 General: Well developed, well nourished, in no acute distress. Genitourinary: Flank Pain: none. Bladder: nonpalpable. Assessment/Plan Completed review of external ER note, imaging, labs. 1. Ureteral stone (N20.1: Calculus of ureter) [facility] 12/10/[address] showed 3 mm stone at right UVJ as well as multiple stones bilaterally measuring up to 8 mm. R US 12/19/2023 - bilateral nonobstructing stones, benign-appearing bilateral renal cysts. KUB 12/19/2023- right kidney stones and suspected small distal right ureteral stone. Patient denies any flank pain for greater than 1 week at this time. He does not believe that he has seen stone pass. He denies any hematuria or urinary symptoms associated with stone. Discussed imaging results with patient. We discussed continued medical expulsive therapy versus surgical procedure to remove stone. However, patient declines any stone procedure at this time, especially given that he is asymptomatic. He continues to take tamsulosin daily, patient should continue. Patient to let us know if he has increasing flank pain or associated stone symptoms. ER for any fever, nausea vomiting, significant flank pain, inability to urinate. Patient verbalized understanding. -Plan to have f/u KUB/ESTELLE in 1 month to ensure stone does not become obstructing at passes. Will call pt w/ results. If stone has not passed at that time, will schedule f/u w/ KML for discussion of further management. 2. Kidney stones (N20.0: Calculus of kidney) Rt ESWL 05/18/22. KUB 07/04/22 [facility] - Bilateral nephrolithiasis measuring up to 5 mm on both sides (prior 1 cm on R). Pt passed some stone fragments with no pain. Stone analysis 07/06/22 - Ca Ox di 90%, Ca Ox mono 5%. ESTELLE 01/10/23 [facility] - Multiple nonobstructing R stones up to 1 cm. Multiple nonobstructing L renal stones, largest 1.5 cm. KUB 01/10/23 [facility] - Bilateral stones. No measurements given. No ureteral stone. Personal review: 3-[address] AP wo con 02/08/23 - Obstructing stone proximal L ureter 7 x 5 mm, mild L sided hydro. Two punctate stones R UVJ. Additional 4 nonobstructing stones L kidney, largest 5 mm. Multiple L renal cysts are similar, largest LUP 6 cm. 3 nonobstructing stones RLP, largest 6 mm. Likely simple cyst LLP 17 mm, small amount of layering calcification along the periphery of this lesion which may represent milk of Ca. S/p cysto, L RGP, URS, laser litho, stone extraction of ureteral stone, stent placement, L renoscopy w/laser litho, stone extraction of kidney stones 03/01/23. Stone analysis - Ca Ox di 90%, 5% mono, 5% CaP. S/p Cysto/Lt Stent Removal 03/09/23 ESTELLE 04/25/23 - multiple calcification at the Rt UVJ, bilat cortical cysts, nonobstructing nephrolithiasis. KUB 09/21/23 [facility] - No visible stones. ESTELLE 09/21/23 [facility] - Nonobstructing bilateral renal stones, measuring up to 1.4cm on R and up to 0.8cm on L. No hydro. Personal review: L kidney stone is in parenchyma. [1] Patient previously declined treatment of bilateral stones. -Follow-up scheduled October 2024 for regular stone monitoring with KUB/ultrasound Ordered: Body Mass Index (BMI) documented 3008F Current tobacco non-user 1036F Depression Screening Negative 3352F Discharge medications reconciled with current medications in outpatient record 1111F Influenza immunization status assessed 1030F Medication list documented in medical record 1159F Most recent diastolic blood pressure 80-89 mm Hg 3079F Patient screen for fall risk: no falls in last year or 1 fall with no injury in last year 1101F Review of all meds by a prescribing practitioner or clinical pharmacist documented in EHR 1160F Systolic BP 130-139 mm Hg (Most Recent) 3075F Urnls Dip Stick Auto w/o Microscopy POC 45957 US Renal XR Abdomen 1 View 3. BPH with obstruction/lower urinary tract symptoms (N40.1: Benign prostatic hyperplasia with lower urinary tract symptoms) (more content not included)... Normal [facility] Comment on above: Result Comment: Elec tronically Signed By: BRANT Mireles APRN, Beatrice Jordan\.br\Date and Time Signed: 12/26/23 13:42 EDT RAD - Ultrasound Reporton RAD - Ultrasound Report [id number]#1.00TIFF Normal [facility] Lab Reportson 12-14-2023 Lab Reports [id number]#1.00TIFF Normal [facility] RAD - CT Reporton 12-14-2023 RAD - CT Report [id number]#1.00TIFF Normal [facility] ED Note-Physicianon 12-13-19 ED Note-Physician [id number]#1.00TIFF [facility] CBC auto differentialon 11-12 Basophils (Bld) [#/Vol] 0.1 10*3/uL [facility] Basophils/100 WBC (Bld) 0.8 % [facility] Eosinophils (Bld) [#/Vol] 0.1 10*3/uL [facility] Eosinophils/100 WBC (Bld) 2.0 % [facility] Erythrocyte distribution width (RBC) [Ratio] 15.6 % High 11.5 - 15.0 % [facility] Hematocrit (Bld) [Volume fraction] 38.8 % Low 39 - 49 % [facility] Hemoglobin (Bld) [Mass/Vol] 12.3 g/dL Low 13.0 - 17.0 g/dL [facility] Interpretation and review of laboratory results Abnormal [facility] Lymphocytes (Bld) [#/Vol] 2.1 10*3/uL [facility] Lymphocytes/100 WBC (Bld) 29.5 % [facility] MCH (RBC) [Entitic mass] 25.9 pg Low 27 - 34 pg [facility] MCHC (RBC) [Mass/Vol] 31.8 g/dL Low 32 - 36 g/dL [facility] MCV (RBC) [Entitic vol] 82 fL 80 - 100 fL [facility] Monocytes (Bld) [#/Vol] 0.5 10*3/uL [facility] Monocytes/100 WBC (Bld) 7.6 % [facility] Neutrophils (Bld) [#/Vol] 4.2 10*3/uL [facility] Neutrophils/100 WBC (Bld) 60.1 % [facility] Platelet mean volume (Bld) [Entitic vol] 8.1 fL 7 - 12 fL [facility] Platelets (Bld) [#/Vol] 258 10*3/uL [facility] RBC (Bld) [#/Vol] 4.77 10*6/uL [facility] WBC corrected for nucl RBC Auto (Bld) [#/Vol] 7.0 [facility] Comprehensive metabolic pane portia 11-27-2023 Albumin [Mass/Vol] 3.8 g/dL 3.2 - 5.3 g/dL [facility] ALP [Catalytic activity/Vol] 68 U/L 39 - 130 U/L [facility] ALT No additional P-5'-P [Catalytic activity/Vol] 13 U/L 0 - 40 U/L [facility] Anion gap [Moles/Vol] 7 mmol/L 5 - 15 mmol/L [facility] AST [Catalytic activity/Vol] 11 U/L 0 - 41 U/L [facility] Bilirubin [Mass/Vol] 0.4 mg/dL 0.3 - 1 .2 mg/dL [facility] Calcium [Mass/Vol] 10.1 mg/dL 8.5 - 10. 5 mg/dL [facility] Chloride [Moles/Vol] 103 mmol/L 98 - 10 9 mmol/L [facility] CO2 [Moles/Vol] 29 mmol/L 22 - 32 mmol/L [facility] Creatinine [Mass/Vol] 0.96 mg/dL 0.60 - 1.30 mg/dL [facility] Comment on above: METHOD TRACEABLE TO [facility] STANDARD eGFR (CKD-EPI)non-race dependent 80 - PINF [facility] Comment on above: Reported eGFR is based on the CKD-EPI 2020 equation that does not use a race coefficient. Glucose [Mass/Vol] 118 mg/dL High 65 - 99 mg/dL [facility] Interpretation and review of laboratory results Abnormal [facility] Potassium [Moles/Vol] 4.2 mmol/L 3.5 - 5.0 mmol/L [facility] Protein [Mass/Vol] 6.6 g/dL 6.0 - 8.0 g/dL [facility] Sodium [Moles/Vol] 139 mmol/L 134 - 146 mmol/L [facility] Urea nitrogen [Mass/Vol] 11 mg/dL 5 - 27 mg/dL [facility] Hemoglobin A1con 11-27-2023 Average glucose Estimated from glycated hemoglobin (Bld) [Mass/Vol] 140 mg/dL [facility] HbA1c (Bld) [Mass fraction] 6.5 % High 4.4 - 5.6 % [facility] Comment on above: NOTE ADA Guidelines Result HgbA1c Normal : less than 5.7 % Prediabetes : 5.7 % to 6.4 % Diabetes : > 6.4 % Use with caution in patients with abnormal hemoglobin variants as the half-life of red blood cells and in vivo glycation rates are affected. Interpretation and review of laboratory results Abnormal [facility] Thyroid profile includes TSH FT4on 11-27-2023 Free T4 [Mass/Vol] 0.90 ng/dL 0.61 - 1.60 ng/dL [facility] TSH Qn 3.58 m[IU]/L [facility] No Panel Informationon 11-16 [facility] XR Thoracic and lumbar spine Views for scoliosis W standingon 10-10-2023 [facility] Basic metabolic 2000 panelon 07-31-2023 Anion gap [Moles/Vol] 8 mmol/L Low 9 - 18 mmol/L [facility] Calcium [Mass/Vol] 10.4 mg/dL High 8.5 - 10. 2 mg/dL [facility] Chloride [Moles/Vol] 103 mmol/L 97 - 10 5 mmol/L [facility] CO2 [Moles/Vol] 30 mmol/L 22 - 30 mmol/L [facility] Creatinine [Mass/Vol] 0.92 mg/dL 0.73 - 1.22 mg/dL [facility] Estimated Glomerular Filtration Rate 85 mL/min/1.73m >=60 mL/min/1.7 3m [facility] Glucose [Mass/Vol] 97 mg/dL 74 - 99 mg/dL [facility] Potassium [Moles/Vol] 4.1 mmol/L 3.7 - 5.1 mmol/L [facility] Sodium [Moles/Vol] 141 mmol/L 136 - 144 mmol/L [facility] Urea nitrogen [Mass/Vol] 12 mg/dL 9 - 24 mg/dL [facility] CBC panel Auto (Bld)on 07-31 Erythrocyte distribution width (RBC) [Ratio] 13.0 % 11.5 - 15.0 % [facility] Hematocrit (Bld) [Volume fraction] 44.7 % 39.0 - 51.0 % [facility] Hemoglobin (Bld) [Mass/Vol] 14.3 g/dL 13.0 - 17.0 g/dL [facility] MCH (RBC) [Entitic mass] 29.3 pg 26.0 - 34.0 pg [facility] MCHC (RBC) [Mass/Vol] 32.0 g/dL 30.5 - 36.0 g/dL [facility] MCV (RBC) [Entitic vol] 91.6 fL 80.0 - 100.0 fL [facility] Nucleated RBC (Bld) [#/Vol] <0.01 k/uL [facility] Platelet mean volume (Bld) [Entitic vol] 9.7 fL 9.0 - 12.7 fL [facility] Platelets (Bld) [#/Vol] 255 10*3/uL 150 - 400 k/uL [facility] RBC (Bld) [#/Vol] 4.88 10*6/uL 4.20 - 6.00 m/uL [facility] WBC (Bld) [#/Vol] 6.93 10*3/uL 3.70 - 11.00 k/uL [facility] ECG COMPLETEon 07-31-2023 Atrial Rate 86 BPM [facility] Calculated P [place] 27 degrees [facility] Calculated R [place] -31 degrees [facility] Calculated T [place] 38 degrees [facility] P-R Interval 178 ms [facility] QRS Duration 88 ms [facility] QT Interval 358 ms [facility] QTC Calculation (Bazett) 428 ms [facility] Ventricular Rate 86 BPM [facility] Laboratory - Blood bankon ABO group Nom (Bld) A [facility] Rh Nom (Bld) Positive [facility] TYPE AND SCREEN,30 DAYon Blood group antibody screen Ql Negative [facility] HIstorical Ab Scr Status Negative [facility] Glucose Glucometer (dC) [M ass/Vol]Ordered By: Cortes Abarca on 05-04-2023 Glucose [Mass/Vol] 101 mg/dL [facility] Comment on above: Random Glucose Refer ence Range is dependent on time and content of last meal. Glucose of more than 200 mg/dL in a nonstressed, ambulatory subject supports the diagnosis of Diabetes Mellitus. CNOVon 03-08-2023 CNOV Office Visit ([facility] ) ----- TYLER TORRES ([id number]) 02/06/1967 M Date Time Provider Department 03/08/23 3:40 PM HUNG HARDY [facility] During your visit today, we recorded the following information about you: Hung Hardy DO 03/08/2023 3:59 PM Signed [facility] Office Visit Documentation Note [facility] Sports Medicine Orthopaedic and Rheumatologic [place] HISTORY OF PRESENT ILLNESS (HPI) CHIEF COMPLAINT / REASON FOR VISIT SERVICE DATE: March 08, 2023 PCP: No primary care provider on file. Tyler Torres is here today at request of Dr. Hung Jacobsen specifically for consultation of my opinion in regards to the chief complaint listed below. Correspondence will be shared today via the [facility] electronic health record or through regular mail, where applicable. Tyler Torres is a 56 year old male who presents today for a new evaluation of following complaint: Patient presents with: Right Shoulder - New HISTORY OF PRESENT ILLNESS (HPI) PAIN EVALUATION 03/01/2023 1053 Pain Location: Arm-Upper Right Description: Aching;Cramping;Cutting;R adiating;Sharp;Shooting Duration Amount of Time: 24 Duration Units: Months Frequency: Continuous Intervention/Comfort measure: Medication;Reposition;Pos itioning with the presenting complaint of New of the Right Shoulder Brief overview: Patient states he had back surgery and had to use arms to lift himself to stand. Patient states it was a few months after surgery that the shoulder started hurting due to this. Patient demonstrated that he has limited ROM Aggravating Factors Does anything make it worse?: over usage, lifting He was last seen in orthopaedic clinic for his shoulder on 12/26/2022 with Hung Jacobsen. Most recent shoulder imaging was completed on 12/26/2022 (XR SHOULDER GENERAL 3V OR MORE AP/TRUE AP/OTHER RIGHT) . PREVIOUS TREATMENTS: Treatments so far have included no medications, physical therapy, injections, bracing, advanced imaging or surgical evaluation. REVIEW OF SYSTEMS ROS: Neurologic: Any numbness or tingling? No Endocrine: Any diagnosis of diabetes? Yes No results found for: HBA1C ALLERGIES ALLERGIES Allergen Reactions Simvastatin Unknown PAST MEDICAL HISTORY No past medical history on file. PHYSICAL EXAMINATION Body Habitus: well nourished and no acute distress Psych: normal Sensation: sensation to light touch is grossly normal bilaterally Skin: Color, texture, turgor normal. No rashes or lesions Swelling: no swelling noted Gait: Normal, the patient did not have trouble getting onto the exam table. ORTHO EXAM: Ortho Exam Poor ROM of ABD/ER/IR R shoulder FLexion to 80 degree. Severe atrophy in the supra fossa. Weakenss of cuff in Supra and Infra noted IMAGING/LABORATORY IMAGING: Final results and radiologist's interpretation, available in the [facility] health record. Images were reviewed with the patient/family members in the office today. My personal interpretation of the performed imaging is chronic degenerative changes. 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 [place] Operator: WERO Transcribe Date/Time: Dec 26 2022 8:26A Dictated by : ANSHUL CHAIREZ MD... ASSESSMENT / PLAN CLINICAL IMPRESSION / ASSESSMENT: CLINICAL IMPRESSION / ASSESSMENT: (M19.011) Glenohumeral arthritis, right (primary encounter diagnosis) (M25.611) Decreased range of motion of right shoulder (M25.511, G89.29) Chronic right shoulder pain RECOMMENDATION / PLAN: Severe OA. Here today from [facility]. Discussed CSI vs OA brisement. OK for CSI high volume today Follow up: 4 months, if relief from CSI Films prior to visit: Written instructions (see patient instructions) and verbal health education given to patient. Patient verbalizes understanding and agrees with the treatment plan. Hung Hardy D.O. [facility] Orthopaedic and Rheumatologic Deliverer Outside, [facility] Program Team Physician, [facility] [employer] Consulting Physician, Loiza Marya Bartlett, Manager Of Selection And Assessment [phone] Glenohumeral arthritis, right (primary encounter diagnosis) Decreased range of motion of right shoulder Chronic right shoulder pain Large Joint Arthro/Inj: R shoulder joint Informed Consent Consent Obtained: Verbal [place] Protocol A moment to CARE was completed. SIGN IN Personnel directly involved with the procedure wore the appropriate PPE. Patient/Surrogate Stated/Verified: Patient name, Date of , Relevant allergies and Intended procedure TIME OUT Intended patient and procedure match the source document(s). Consent documented and matches the intended procedure. Relevan (more content not included)... Normal [facility] Glucose Glucometer (BldC) [M ass/Vol]Ordered By: Cortes Abarca on 02-02-2023 Glucose [Mass/Vol] 89 mg/dL [facility] Comment on above: Random Glucose Refer ence Range is dependent on time and content of last meal. Glucose of more than 200 mg/dL in a nonstressed, ambulatory subject supports the diagnosis of Diabetes Mellitus. US KIDNEYSon 01-10-2023 US KIDNEYS EXAMINATION: US TJ GURPREET HISTORY: Kidney stone COMPARISON: No relevant comparison available. TECHNIQUE: Ultrasound examination was performed of the bladder. FINDINGS: Right Kidney: Normal in size and contour. 2.1 cm area of anechoic echogenicity lower pole, simple cyst. The cortex measures 1.1 cm. Multiple echogenic foci measuring up to 1 cm, nonobstructing nephrolithiasis. No hydronephrosis Height: 7.9 cm Length: 11.1 cm Width: 5.5 cm Left Kidney: Normal in size and contour. Multiple cystic areas largest in the superior pole measures 5.9 cm, simple cyst. The cortex measures 1.7 cm. Multiple echogenic foci measuring up to 1.5 cm, nonobstructing nephrolithiasis. Mild hydronephrosis Height: 7.6 cm Length: 12.9 cm Width: 6.2 cm The urinary bladder has a volume of 194 mL. No focal wall thickening Ureteral jets: Visualized bilaterally IMPRESSION: Bilateral nephrolithiasis Mild left hydronephrosis Electronically authenticated by: GRAHAM WHYTE Date: 2023-01-10 12:08 Normal [facility] XR KUB 1 VIEWon 01-10-2023 XR KUB 1 VIEW EXAMINATION: XR KUB 1 VIEW HISTORY: Kidney stone COMPARISON: 07/04/2022 FINDINGS: KIDNEY/URETER - RIGHT: Nephrolithiasis KIDNEY/URETER - LEFT: Nephrolithiasis PELVIS: No visible ureteral calcifications. Any visible calcifications favor phleboliths. BOWEL: No abnormal dilation or deviation. BONES: Bilateral lumbosacral transpedicular fusion. Interbody spacers. OTHER: Negative. No abnormal gaseous collections. IMPRESSION: Bilateral nephrolithiasis Electronically authenticated by: GRAHAM WHYTE Date: 2023-01-10 14:10 Normal [facility] CT LUMBAR SPINE WO IVCONon 0 12-23-2022 [facility] XR SHOULDER GENERAL 3V OR MO RE AP/TRUE AP/OTHER RIGHTon 12-23-2022 [facility] XR LUMBAR LIMITED 2V AP/LATo n 12-13-2022 [facility] Glucose Glucometer (BldC) [M ass/Vol]Ordered By: Cortes Abarca on 11-07-2022 Glucose [Mass/Vol] 77 mg/dL [facility] Comment on above: Random Glucose Refer ence Range is dependent on time and content of last meal. Glucose of more than 200 mg/dL in a nonstressed, ambulatory subject supports the diagnosis of Diabetes Mellitus. XR shoulder RT min 2V*on XR shoulder RT min 2V* [facility] [employer] Other XR shoulder RT min 2V* [facility] [employer] Other XR shoulder RT min 2V* [address] [place] [address] [employer] Other XR shoulder RT min 2V* [facility] [place] [address] [employer] Other XR shoulder RT min 2V* XRay Report [employer] Other XR shoulder RT min 2V* Signed [employer] Other XR shoulder RT min 2V* Patient: Tyler Torres MR#: [id number] [employer] Other XR shoulder RT min 2V* : 1945 Acct:[id number] [employer] Other XR shoulder RT min 2V* Age/Sex: 77 / M ADM Date: 08/10/22 [facility] Other XR shoulder RT min 2V* Loc: XD Room: Type: REG CLI [facility] Other XR shoulder RT min 2V* Attending Dr: Temi Dean NP [employer] Other XR shoulder RT min 2V* Copies to: Temi Dean NP [employer] Other XR shoulder RT min 2V* Ordering Provider: Temi Dean NP [facility] Other XR shoulder RT min 2V* Date of Service: 08/10/22 [facility] Other XR shoulder RT min 2V* XR/XR shoulder RT min 2V*: Right anterior shoulder pain [employer] Other XR shoulder RT min 2V* 3 views plain filmright shoulder [employer] Other XR shoulder RT min 2V* HISTORY:Right shoulder pain [employer] Other XR shoulder RT min 2V* COMPARISON:None [employer] Other XR shoulder RT min 2V* No fracture, dislocation or soft tissue abnormality identified.Obwb-gj-hcfd contact degenerative [employer] Other XR shoulder RT min 2V* changes of the glenohumeral joint with inferior marginal spurring present. Mild acromioclavicular [employer] Other XR shoulder RT min 2V* spurring. [employer] Other XR shoulder RT min 2V* XR/XR shoulder RT min 2V* [employer] Other XR shoulder RT min 2V* IMPRESSION:Extensive glenohumeral degeneration. [employer] Other XR shoulder RT min 2V* Impression dictated by: Rosalino Orona M.D.08/10/2022 4:25 PM [facility] Other XR shoulder RT min 2V* Dictation Location: [place] [address] [employer] Other XR shoulder RT min 2V* Transcribed By: PWS 08/10/22 [facility] Other XR shoulder RT min 2V* Dictated By: Rosalino Orona DO 08/10/22 [facility] [employer] Other XR shoulder RT min 2V* Signed By: [employer] Other XR shoulder RT min 2V* 08/10/22 [facility] [employer] Other XR KUB 1 VIEWon 07-04-2022 XR KUB 1 VIEW EXAMINATION: XR KUB 1 VIEW HISTORY: Kidney stone COMPARISON: 08/18/2021 FINDINGS: KIDNEY/URETER - RIGHT: Interval change in nephrolithiasis consistent with lithotripsy KIDNEY/URETER - LEFT: Nephrolithiasis PELVIS: No visible ureteral calcifications. Any visible calcifications favor phleboliths. BOWEL: No abnormal dilation or deviation. BONES: Thoracic lumbar spine and sacral fusion with no mechanical failure OTHER: Negative. No abnormal gaseous collections. IMPRESSION: Bilateral nephrolithiasis Electronically authenticated by: GRAHAM WHYTE Date: 2022-07-04 19:45 Normal [facility] XR LUMBAR LIMITED 2V AP/LATo n 05-24-2022 [facility] POINT OF CARE GLUCOSEon Glucose [Mass/Vol] 96 mg/dL Normal 74-106 [facility] Comment on above: Performed By: #### P OCGLUC #### [facility] [address] [address] [address] Ilan Steiner XR KUB 1 VIEWon 05-18-2022 XR KUB 1 VIEW EXAMINATION: XR KUB 1 VIEW HISTORY: Urolithiasis COMPARISON: XR KUB 04/12/2022 FINDINGS: KIDNEY/URETER - RIGHT: 10 mm stone projecting over inferior pole of kidney. KIDNEY/URETER - LEFT: 2 small stones projecting over inferior pole of kidney. PELVIS: No visible ureteral calcifications. Any visible calcifications favor phleboliths. BOWEL: No abnormal dilation or deviation. BONES: Posterior mechanical fusion of lumbar spine. OTHER: Negative. No abnormal gaseous collections. IMPRESSION: 1. Stable bilateral nephrolithiasis. Electronically authenticated by: EDELMIRA ARANGO Date: 2022-05-18 12:00 Normal [facility] CBC AUTO DIFFon 05-16-2022 BASO # 0.1 103/ul Normal 0.0-0.1 [facility] Comment on above: Performed By: #### C BC #### [facility] [address] [address] [address] Ilan Steiner Basophils/100 WBC (Bld) 0.8 % Normal 0.2-2.0 [facility] Comment on above: Performed By: #### C BC #### [facility] [address] [place] [address] Dr. Ilan Steiner EO # 0.2 103/ul Normal 0.0-0.7 [facility] Comment on above: Performed By: #### C BC #### [facility] [address] [place] [address] Dr. Ilan Steiner Eosinophils/100 WBC (Bld) 3.5 % Normal 0.9-7.0 [facility] Comment on above: Performed By: #### C BC #### [facility] [address] [place] [address] Dr. Ilan Steiner Erythrocyte distribution width (RBC) [Ratio] 13.2 % Normal 11.0-15.0 [facility] Comment on above: Performed By: #### C BC #### [facility] [address] [place] [address] Dr. Ilan Steiner Hematocrit (Bld) [Volume fraction] 39.7 % Critically low 42.0-54.0 [facility] Comment on above: Performed By: #### C BC #### [facility] [address] [place] [address] Dr. Ilan Steiner Hemoglobin (Bld) [Mass/Vol] 13.1 g/dL Critically low 14.0-18.0 [facility] Comment on above: Performed By: #### C BC #### [facility] [address] [place] [address] Dr. Ilan Steiner IG # 0.01 10e3/ul Normal 0.00-0.03 [facility] Comment on above: Performed By: #### C BC #### [facility] [address] [place] [address] Dr. Ilan Steiner IG % 0.2 % Normal 0.0-0.5 [facility] Comment on above: Performed By: #### C BC #### [facility] [address] [place] [address] Dr. Ilan Steiner LYMPH # 1.8 103/ul Normal 1.2-3.8 [facility] Comment on above: Performed By: #### C BC #### [facility] [address] [place] [address] Dr. Ilan Steiner Lymphocytes/100 WBC (Bld) 29.7 % Normal 20.5-60.0 [facility] Comment on above: Performed By: #### C BC #### [facility] [address] [place] [address] Dr. Ilan Steiner MANUAL DIFF REQ NO Normal [facility] Comment on above: Performed By: #### C BC #### [facility] [address] [place] [address] Dr. Ilan Steiner MCH (RBC) [Entitic mass] 30.3 pg Normal 25.9-34.0 [facility] Comment on above: Performed By: #### C BC #### [facility] [address] [place] [address] Dr. Ilan Steiner MCHC (RBC) [Mass/Vol] 33.0 g/dL Normal 29.9-35.2 [facility] Comment on above: Performed By: #### C BC #### [facility] [address] [place] [address] Dr. Ilan Steiner MCV (RBC) [Entitic vol] 91.7 fL Normal 80.0-94.0 [facility] Comment on above: Performed By: #### C BC #### [facility] [address] [place] [address] Dr. Ilan Steiner MONO # 0.6 103/ul Normal 0.3-0.8 [facility] Comment on above: Performed By: #### C BC #### [facility] [address] [place] [address] Dr. Ilan Steiner Monocytes/100 WBC (Bld) 9.9 % Normal 1.7-12.0 [facility] Comment on above: Performed By: #### C BC #### [facility] [address] [place] [address] Dr. Ilan Steiner NEUT # 3.4 103/ul Normal 1.4-6.5 [facility] Comment on above: Performed By: #### C BC #### [facility] [address] [place] [address] Dr. Ilan Steiner Neutrophils/100 WBC (Bld) 55.9 % Normal 43.0-75.0 [facility] Comment on above: Performed By: #### C BC #### [facility] [address] [place] [address] Dr. Ilan Steiner Platelet mean volume (Bld) [Entitic vol] 9.4 fL Critically low 9.5-13.5 [facility] Comment on above: Performed By: #### C BC #### [facility] [address] [address] [address] Ilan Steiner PLT 220 103/ul Normal 150-450 [facility] Comment on above: Performed By: #### C BC #### [facility] [address] [address] [address] Ilan Steiner RBC 4.33 106/ul Critically low 4.70-6.10 [facility] Comment on above: Performed By: #### C BC #### [facility] [address] [place] [address] Dr. Ilan Steiner WBC 6.1 103/ul Normal 4.0-11.0 [facility] Comment on above: Performed By: #### C BC #### [facility] [address] [place] [address] Dr. Ilan Steiner [facility]on SARS-CoV-2 (COVID-19) RNA AGNELO+probe Ql (Unsp spec) Not detected Normal NOT DETECTED [facility] Comment on above: Result Comment: This test is not yet approved or cleared by the [place] FDA. When there are no FDA-approved or cleared tests available, and other criteria are met, FDA can make tests available under an emergency access mechanism called an Emergency Use Authorization (EUA). The EUA for this test is supported by the [place] of Health and Human Service's (HHS's) declaration that circumstances exist to justify the emergency use of in vitro diagnostics for the detection and/or diagnosis of the virus that causes COVID-19. This EUA will remain in effect (meaning this test can be used) for the duration of the COVID-19 declaration justifying emergency of IVDs, unless it is terminated or revoked by FDA (after which the test may no longer be used). When diagnostic testing is negative, the possibility of a false negative should be considered in the context of a patient's recent exposures and the presence of clinical signs and symptoms consistent with SARS-CoV-2. Performed By: #### C VDTBH #### [facility] [address] [place] [address] Dr. Ilan Steiner PROF CHEM 8 (BAS METB)on Anion gap [Moles/Vol] 8.2 mmol/L Normal [facility] Comment on above: Performed By: #### C VDTBH #### [facility] [address] [place] [address] Dr. Ilan Steiner Calcium [Mass/Vol] 10.1 mg/dL Normal 8.5-10.1 [facility] Comment on above: Performed By: #### C VDTBH #### [facility] [address] [place] [address] Dr. Ilan Steiner Chloride [Moles/Vol] 105 mmol/L Normal 98-107 [facility] Comment on above: Performed By: #### C VDTBH #### [facility] [address] [place] [address] Dr. Ilan Steiner CO2 [Moles/Vol] 29.8 mmol/L Normal 21.0-32.0 [facility] Comment on above: Performed By: #### C VDTBH #### [facility] [address] [place] [address] Dr. Ilan Steiner Creatinine [Mass/Vol] 0.93 mg/dL Normal 0.70-1.30 [facility] Comment on above: Performed By: #### C VDTBH #### [facility] [address] [place] [address] Dr. Ilan Steiner EGFR-AF [place] >60 Normal >=60 [facility] Comment on above: Performed By: #### C VDTBH #### [facility] [address] [place] [address] Dr. Ilan Steiner EGFR-NON AF [place] >60 Normal >=60 [facility] Comment on above: Performed By: #### C VDTBH #### [facility] [address] [address] [address] Ilan Steiner Glucose [Mass/Vol] 105 mg/dL Normal 74-106 [facility] Comment on above: Performed By: #### C VDTBH #### [facility] [address] [address] [address] Ilna Steiner Potassium [Moles/Vol] 4.0 mmol/L Normal 3.5-5.1 [facility] Comment on above: Performed By: #### C VDTBH #### [facility] [address] [address] [address] Ilan Steiner Sodium [Moles/Vol] 139 mmol/L Normal 136-145 [facility] Comment on above: Performed By: #### C VDTBH #### [facility] [address] [address] [address] Ilan Steiner Urea nitrogen [Mass/Vol] 12.0 mg/dL Normal 7.0-18.0 [facility] Comment on above: Performed By: #### C VDTBH #### [facility] [address] [place] [address] Dr. Ilan Steiner Urea nitrogen/Creatinine [Mass ratio] 12.9 mg/mg Normal [facility] Comment on above: Performed By: #### C VDTBH #### [facility] [address] [place] [address] Dr. Ilan Steiner PROTIMEon 05-16-2022 INR Coag (PPP) [Relative time] 0.95 {INR} Normal [facility] Comment on above: Performed By: #### C VDTBH #### [facility] [address] [place] [address] Dr. Ilan Steiner INR GUIDELINES SEE BELOW Normal [facility] Comment on above: Result Comment: ALLISON RED INR: 2.0 - 3.0 CONDITIONS NOT LISTED BELOW 2.5 - 3.5 FOR PROSTHETIC HEART VALVE REPLACEMENT 2.5 - 3.5 RECURRENT THROMBOSIS Performed By: #### C VDTBH #### [facility] [address] [place] [address] Dr. Ilan Steiner PT Coag (PPP) [Time] 10.3 s Normal 9.0-11.6 [facility] Comment on above: Performed By: #### C VDTBH #### [facility] [address] [place] [address] Dr. Ilan Steiner PTTon 05-16-2022 aPTT Coag (Bld) [Time] 28.2 s Normal 22.3-36.2 [facility] Comment on above: Performed By: #### C VDTBH #### [facility] [address] [place] [address] ABD/PELVIS WO CONon 04-12 CT ABD/PELVIS WO CON EXAMINATION: CT ABD/PELVIS WO CON HISTORY: Kidney stone COMPARISON: CT abdomen pelvis 12/02/2015 TECHNIQUE: Axial, Coronal, and Sagittal images were created without IV contrast. Dose reduction techniques were achieved by using automated exposure control and/or adjustment of mA and/or kV according to patient size and/or use of iterative reconstruction technique. FINDINGS: LUNG BASES: No visible pulmonary or pleural disease. LIVER: No enlargement, atrophy, suspicious density, or significant focal lesion. BILIARY: No dilatation or calcification. PANCREAS: No lesion, fluid collection, or abnormal duct dilatation. SPLEEN: No enlargement or focal lesion. ADRENALS: No mass or enlargement. KIDNEYS: Several nonobstructing stones within bilateral kidneys, largest is on right 10 x 10 x 9 mm. Multiple round hypodensities bilaterally favoring cysts, largest is on left, 5.3 cm. Unremarkable ureters. BOWEL/MESENTERY: No visible mass, obstruction, or bowel wall thickening. AORTA/VASCULAR: No aneurysm or dissection. RETROPERITONEUM: No mass or adenopathy. LYMPH NODES: No adenopathy. URINARY BLADDER: No visible focal wall thickening, lesion, or calculus. PELVIC ORGANS: No visible mass. Pelvic organs appropriate for patient age. ABDOMINAL WALL: Small fat filled left inguinal hernia without strangulation. BONES: Posterior mechanical fusion of T12-S1 via bilateral pedicle screws and rods. OTHER: Negative. IMPRESSION: 1. Bilateral nonobstructing nephrolithiasis. 2. Multiple renal cysts bilaterally. Evaluation of the cysts is limited by lack of IV contrast, but no grossly suspicious abnormality. Consider follow-up CT abdomen with IV contrast if clinically indicated. Electronically authenticated by: EDELMIRA ARANGO Date: 2022-04-12 11:19 Normal [facility] XR KUB 1 VIEWon 04-12-2022 XR KUB 1 VIEW EXAMINATION: XR KUB 1 VIEW HISTORY: Kidney stone COMPARISON: No relevant comparison available. FINDINGS: KIDNEY/URETER - RIGHT: Several stones, largest is 10 mm. KIDNEY/URETER - LEFT: Several stones, largest is 4 mm PELVIS: No visible ureteral calcifications. Any visible calcifications favor phleboliths. BOWEL: No abnormal dilation or deviation. BONES: Posterior mechanical fusion of T12-S1 via bilateral pedicle screws and rods. Intervertebral disc spacers at each of these levels. OTHER: Negative. No abnormal gaseous collections. IMPRESSION: 1. Bilateral nephrolithiasis. Electronically authenticated by: EDELMIRA ARANGO Date: 2022-04-12 11:21 Normal [facility] Creatinine and Glomerular fi ltration rate.predicted panel (S/P/Bld)Ordered By: Sharda Brown on 03-03-2022 Creatinine [Mass/Vol] 0.83 mg/dL 0.64-1.27 [facility] Estimated glomerular filtrat ion rate (GFR) non- AmericanOrdered By: Sharda Brown on 03-03-2022 GFR/1.73 sq M.predicted among non-blacks MDRD (S/P/Bld) [Vol rate/Area] > 60 mL/Min [facility] No Panel InformationOrdered By: Sharda Brown on 03-03-2022 Estimated GFR () > 60 mL/Min [facility] Comment on above: GFR estimated refere nce range: According to KDOQI guidelines, <60 ml/min/1.73m2 is sufficient to diagnose a patient with chronic kidney disease. Pharmacy Creatinine Clearance (Chem N/A [facility] Serum or plasma urea nitroge n measurement (mass/volume)Ordered By: Sharda Brown on 03-03-2022 Urea nitrogen [Mass/Vol] 12 mg/dL 05-06 [facility] EMG(NEURO/NI)on 2022 [facility] Automated erythrocytes count in urine sediment (number/area)Ordered By: Rajiv De La O on 10-13-2021 RBC Auto (Urine sed) [#/Area] 0-1 [HPF] [facility] Automated leukocytes count i n urine sediment (number/area)Ordered By: Rajiv De La O on 10-13-2021 WBC Auto (Urine sed) [#/Area] 3-4 [HPF] [facility] Bilirubin Test strip Ql (U)O rdered By: Rajiv De La O on 10-13-2021 Bilirubin Ql (U) Negative Negative [facility] Color Auto (U)Ordered By: Tracy De La O on 10-13-2021 Color (U) Yellow Yellow [facility] Ketones Auto test strip (U) [Mass/Vol]Ordered By: Rajiv De La O on 10-13-2021 Ketones (U) [Mass/Vol] Negative Negative [facility] - UrinalysisOrder ed By: Rajiv De La O on 10-13-2021 Hyaline casts LM Ql (Urine sed) 0-8 [LPF] [facility] Nitrite Test strip Ql (U)Ord ered By: Rajiv De La O on 10-13-2021 Nitrite Ql (U) Negative Negative [facility] Protein Auto test strip (U) [Mass/Vol]Ordered By: Rajiv De La O on 10-13-2021 Protein (U) [Mass/Vol] Negative Negative [facility] Specific gravity Auto test s trip (U) [Rel density]Ordered By: Rajiv De La O on 10-13-2021 Specific gravity (U) [Rel density] 1.009 1.001-1.03 0 [facility] Squamous epithelial cells de tection in urine sediment by light microscopyOrdered By: Rajiv De La O on 10-13-2021 Epithelial cells.squamous LM Ql (Urine sed) 1-2 [HPF] [facility] Urine bacteria detection by automated methodOrdered By: Rajiv De La O on 10-13-2021 Bacteria Auto Ql (U) None seen None Seen [facility] Urine clarity by refractomet ry automatedOrdered By: Rajiv De La O on 10-13-2021 Clarity Refractometry automated (U) Clear Clear [facility] Urine glucose measurement by automated test strip (mass/volume)Ordered By: Rajiv De La O on 10-13-2021 Glucose Auto test strip (U) [Mass/Vol] Normal mg/dL Normal [facility] Urine hemoglobin detection b y automated test stripOrdered By: Rajiv De La O on 10-13-2021 Hemoglobin Auto test strip Ql (U) Negative Negative [facility] Urine leukocyte esterase det ection by automated test stripOrdered By: Rajiv De La O on 10-13-2021 Leukocyte esterase Auto test strip Ql (U) 1+ Negative [facility] Urobilinogen Auto test strip (U) [Mass/Vol]Ordered By: Rajiv De La O on 10-13-2021 Urobilinogen (U) [Mass/Vol] Normal mg/dL Normal [facility] pH Auto test strip (U)Ordere d By: Rajiv De La O on 10-13-2021 pH (U) 7.0 [pH] 5.0-9.0 [facility] Basophils Auto (Bld) [#/Vol] Ordered By: Rajiv De La O on 10-11-2021 Basophils (Bld) [#/Vol] 0.0 10*3/uL 0.0-0.2 [facility] Basophils/100 WBC Auto (Bld) Ordered By: Rajiv De La O on 10-11-2021 Basophils/100 WBC (Bld) 0.6 % [facility] Blood hemoglobin measurement (mass/volume)Ordered By: Rajiv De La O on 10-11-2021 Hemoglobin (Bld) [Mass/Vol] 11.0 g/dL 13.0-17.0 [facility] Blood leukocytes automated c ount (number/volume)Ordered By: Rajiv De La O on 10-11-2021 WBC (Bld) [#/Vol] 3.7 10*3/uL 4.5-11.0 [facility] Creatinine and Glomerular fi ltration rate.predicted panel (S/P/Bld)Ordered By: Rajiv De La O on 10-11-2021 Creatinine [Mass/Vol] 0.76 mg/dL 0.64-1.27 [facility] Eosinophils Auto (Bld) [#/Vo l]Ordered By: Rajiv De La O on 10-11-2021 Eosinophils (Bld) [#/Vol] 0.2 10*3/uL 0.0-0.45 [facility] Eosinophils/100 WBC Auto (Bl d)Ordered By: Rajiv De La O on 10-11-2021 Eosinophils/100 WBC (Bld) 6.4 % [facility] Erythrocyte distribution wid th Auto (RBC) [Ratio]Ordered By: Rajiv De La O on 10-11-2021 Erythrocyte distribution width (RBC) [Ratio] 14.3 % 12.0-14.8 [facility] Estimated glomerular filtrat ion rate (GFR) non- AmericanOrdered By: Rajiv De La O on 10-11-2021 GFR/1.73 sq M.predicted among non-blacks MDRD (S/P/Bld) [Vol rate/Area] > 60 mL/Min [facility] Hematocrit Auto (Bld) [Volum e fraction]Ordered By: Rajiv De La O on 10-11-2021 Hematocrit (Bld) [Volume fraction] 32.3 % 38.8-50.0 [facility] - Hematology and Cell countsOrdered By: Rajiv De La O on 10-11-2021 Nucleated RBC/100 WBC (Bld) [Ratio] 0.2 % 0-0.5 [facility] Lymphocytes Auto (Bld) [#/Vo l]Ordered By: Rajiv De La O on 10-11-2021 Lymphocytes (Bld) [#/Vol] 1.4 10*3/uL 1.00-4.8 [facility] Lymphocytes/100 WBC Auto (Bl d)Ordered By: Rajiv De La O on 10-11-2021 Lymphocytes/100 WBC (Bld) 38.3 % [facility] MCH Auto (RBC) [Entitic mass ]Ordered By: Rajiv De La O on 10-11-2021 MCH (RBC) [Entitic mass] 31.1 pg 27.5-35.2 [facility] MCHC Auto (RBC) [Mass/Vol]Or dered By: Rajiv De La O on 10-11-2021 MCHC (RBC) [Mass/Vol] 34.0 g/dL 32.5-35.6 [facility] MCV Auto (RBC) [Entitic vol] Ordered By: Rajiv De La O on 10-11-2021 MCV (RBC) [Entitic vol] 91.3 fL 83.5-101 [facility] Monocytes Auto (Bld) [#/Vol] Ordered By: Rajiv De La O on 10-11-2021 Monocytes (Bld) [#/Vol] 0.5 10*3/uL 0.0-0.8 [facility] Monocytes/100 WBC Auto (Bld) Ordered By: Rajiv De La O on 10-11-2021 Monocytes/100 WBC (Bld) 13.0 % [facility] Neutrophils Auto (Bld) [#/Vo l]Ordered By: Rajiv De La O on 10-11-2021 Neutrophils (Bld) [#/Vol] 1.5 10*3/uL 1.8-7.7 [facility] Neutrophils/100 WBC Auto (Bl d)Ordered By: Rajiv De La O on 10-11-2021 Neutrophils/100 WBC (Bld) 41.7 % [facility] No Panel InformationOrdered By: Rajiv De La O on 10-11-2021 Estimated GFR () > 60 mL/Min [facility] Comment on above: GFR estimated refere nce range: According to KDOQI guidelines, <60 ml/min/1.73m2 is sufficient to diagnose a patient with chronic kidney disease. Pharmacy Creatinine Clearance (Chem 74.81 [facility] Platelet mean volume Auto (B ld) [Entitic vol]Ordered By: Rajiv De La O on 10-11-2021 Platelet mean volume (Bld) [Entitic vol] 7.6 fL 6.6-10.1 [facility] Platelets Auto (Bld) [#/Vol] Ordered By: Rajiv De La O on 10-11-2021 Platelets (Bld) [#/Vol] 312 10*3/uL 150-450 [facility] RBC Auto (Bld) [#/Vol]Ordere d By: Rajiv De La O on 10-11-2021 RBC (Bld) [#/Vol] 3.54 10*6/uL 3.90-5.60 [facility] Serum or plasma calcium kassidy urement (mass/volume)Ordered By: Rajiv De La O on 10-11-2021 Calcium [Mass/Vol] 10.0 mg/dL 8.2-10.2 [facility] Serum or plasma chloride norma surement (moles/volume)Ordered By: Rajiv De La O on 10-11-2021 Chloride [Moles/Vol] 102 mmol/L 95-114 [facility] Serum or plasma glucose kassidy urement (mass/volume)Ordered By: Rajiv De La O on 10-11-2021 Glucose [Mass/Vol] 86 mg/dL 70-100 [facility] Comment on above: ADA recommended refe rence rangeRandom Glucose Reference Range is dependent on time and content of last meal. Glucose of more than 200 mg/dL in a nonstressed, ambulatory subject supports the diagnosis of Diabetes Mellitus. Serum or plasma potassium me asurement (moles/volume)Ordered By: Rajiv De La O on 10-11-2021 Potassium [Moles/Vol] 3.9 mmol/L 3.5-5.1 [facility] Serum or plasma sodium measu rement (moles/volume)Ordered By: Rajiv De La O on 10-11-2021 Sodium [Moles/Vol] 138 mmol/L 136-146 [facility] Serum or plasma total carbon dioxide measurement (moles/volume)Ordered By: Rajiv De La O on 10-11-2021 CO2 [Moles/Vol] 27.5 mmol/L 22.0-30.0 [facility] Serum or plasma urea nitroge n measurement (mass/volume)Ordered By: Rajiv De La O on 10-11-2021 Urea nitrogen [Mass/Vol] 16 mg/dL 9-23 [facility] Glucose Glucometer (BldC) [M ass/Vol]Ordered By: Rajiv De La O on 09-27-2021 Glucose [Mass/Vol] 152 mg/dL [facility] Comment on above: Random Glucose Refer ence Range is dependent on time and content of last meal. Glucose of more than 200 mg/dL in a nonstressed, ambulatory subject supports the diagnosis of Diabetes Mellitus. No Panel InformationOrdered By: Rajiv De La O on 09-27-2021 Bedside Glucose Comment Glu2: cleaned meter [facility] Albumin [Mass/volume] in Ser um or PlasmaOrdered By: Rajiv De La O on 09-21-2021 Albumin [Mass/Vol] 2.7 g/dL 3.2-5.5 [facility] Folate [Mass/volume] in Seru m or PlasmaOrdered By: Rajiv De La O on 09-21-2021 Folate [Mass/Vol] 6.8 ng/mL >5.9 [facility] Comment on above: Folate reference ran ge: >5.9 ng/mlThe WHO technical consultation on folate and vitamin [id number] has determined that folate concentrations lessthan 4 ng/ml are considered deficient. Globulin Calc (S) [Mass/Vol] Ordered By: Rajiv De La O on 09-21-2021 Globulin (S) [Mass/Vol] 2.5 g/dL [facility] - Chemistry and C hemistry - challengeOrdered By: Rajiv De La O on 09-21-2021 Cobalamin (Vitamin B12) [Mass/Vol] 877 pg/mL 180-914 [facility] No Panel InformationOrdered By: Rajiv De La O on 09-21-2021 Platelet Estimate Normal Normal [facility] Platelet Morphology Comment Normal Normal [facility] Protein [Mass/volume] in Ser um or PlasmaOrdered By: Rajiv De La O on 09-21-2021 Protein [Mass/Vol] 5.2 g/dL 6.1-7.9 [facility] RBC morphologyOrdered By: Tracy De La O on 09-21-2021 RBC morphology finding Nom (Bld) Normal [facility] Serum or plasma alanine meyer otransferase measurement without P-5'-P (enzymatic activiOrdered By: Rajiv De La O on 09-21-2021 ALT No additional P-5'-P [Catalytic activity/Vol] 33 U/L 10-60 [facility] Serum or plasma albumin/glob ulin mass ratioOrdered By: Rajiv De La O on 09-21-2021 Albumin/Globulin [Mass ratio] 1.1 {ratio} [facility] Serum or plasma alkaline ramona sphatase measurement (enzymatic activity/volume)Ordered By: Rajiv De La O on 09-21-2021 ALP [Catalytic activity/Vol] 43 U/L 32-92 [facility] Serum or plasma aspartate am inotransferase measurement (enzymatic activity/volume)Ordered By: Rajiv De La O on 09-21-2021 AST [Catalytic activity/Vol] 17 U/L 10-42 [facility] Serum or plasma prealbumin m easurement (mass/volume)Ordered By: Rajiv De La O on 09-21-2021 Prealbumin [Mass/Vol] 27.6 mg/dL 18.0-38.0 [facility] Serum or plasma total biliru bin measurement (mass/volume)Ordered By: Rajiv De La O on 09-21-2021 Bilirubin [Mass/Vol] 0.9 mg/dL 0.3-1.2 [facility] COVID-19 Positive/NegativeOr dered By: Sharda Brown on 09-20-2021 SARS-CoV-2 (COVID-19) N gene ANGELO+probe Ql (Resp) Negative Negative [facility] Comment on above: Testing for SARS-CoV -2 by RT-PCRThis test was developed and its performance characteristics determined by [employer] ([place] and validated at the [facility]. This test has not been FDA cleared or approved. This test has been authorized by FDA under an Emergency Use Authorization (EUA). This test has been validated in accordance with the FDA's Guidance Document (Policy for Diagnostics Testing in Laboratories Certified to Perform High Complexity Testing under CLIA prior to Emergency Use Authorization for Coronavirus Disease-2019 during the Public Health Emergency) issued on November 14, 2019. This test is only authorized for the duration of time the declaration that circumstances exist justifying the authorization of the emergency use of in vitro diagnostic tests for detection of SARS-CoV-2 virus and/or diagnosis of COVID-19 infection under section 564(b)(1) of the Act, 21 U.S.C. 360bbb-3(b)(1), unless the authorization is terminated or revoked sooner. Creatinine and Glomerular fi ltration rate.predicted panel (S/P/Bld)Ordered By: Cory Reese on 09-20-2021 Creatinine [Mass/Vol] 0.73 mg/dL 0.64-1.27 [facility] Estimated glomerular filtrat ion rate (GFR) non- AmericanOrdered By: Cory Reese on 09-20-2021 GFR/1.73 sq M.predicted among non-blacks MDRD (S/P/Bld) [Vol rate/Area] > 60 mL/Min [facility] Glucose Glucometer (BldC) [M ass/Vol]Ordered By: Sharda Brown on 09-20-2021 Glucose [Mass/Vol] 176 mg/dL [facility] Comment on above: Random Glucose Refer ence Range is dependent on time and content of last meal. Glucose of more than 200 mg/dL in a nonstressed, ambulatory subject supports the diagnosis of Diabetes Mellitus. No Panel InformationOrdered By: Sharda Brown on 09-20-2021 Bedside Glucose Comment Glu2: cleaned meter [facility] No Panel InformationOrdered By: Cory Reese on 09-20-2021 Estimated GFR () > 60 mL/Min [facility] Comment on above: GFR estimated refere nce range: According to KDOQI guidelines, <60 ml/min/1.73m2 is sufficient to diagnose a patient with chronic kidney disease. Pharmacy Creatinine Clearance (Chem 81.64 [facility] Serum or plasma calcium kassidy urement (mass/volume)Ordered By: Cory Reese on 09-20-2021 Calcium [Mass/Vol] 9.4 mg/dL 8.2-10.2 [facility] Serum or plasma chloride norma surement (moles/volume)Ordered By: Cory Reese on 09-20-2021 Chloride [Moles/Vol] 99 mmol/L 95-114 [facility] Serum or plasma glucose kassidy urement (mass/volume)Ordered By: Cory Reese on 09-20-2021 Glucose [Mass/Vol] 145 mg/dL 70-100 [facility] Comment on above: ADA recommended refe rence rangeRandom Glucose Reference Range is dependent on time and content of last meal. Glucose of more than 200 mg/dL in a nonstressed, ambulatory subject supports the diagnosis of Diabetes Mellitus. Serum or plasma potassium me asurement (moles/volume)Ordered By: Cory Reese on 09-20-2021 Potassium [Moles/Vol] 3.7 mmol/L 3.5-5.1 [facility] Serum or plasma sodium measu rement (moles/volume)Ordered By: Cory Reese on 09-20-2021 Sodium [Moles/Vol] 134 mmol/L 136-146 [facility] Serum or plasma total carbon dioxide measurement (moles/volume)Ordered By: Cory Reese on 09-20-2021 CO2 [Moles/Vol] 24.7 mmol/L 22.0-30.0 [facility] Serum or plasma urea nitroge n measurement (mass/volume)Ordered By: Cory Reese on 09-20-2021 Urea nitrogen [Mass/Vol] 24 mg/dL 9-23 [facility] Activated partial thrombopla stin time (aPTT) in platelet poor plasma by coagulation aOrdered By: Cory Reese on 09-19-2021 aPTT Coag (PPP) [Time] 25.5 s 25.1-36.5 [facility] Albumin [Mass/volume] in Ser um or PlasmaOrdered By: Cory Reese on 09-19-2021 Albumin [Mass/Vol] 2.6 g/dL 3.2-5.5 [facility] Basophils Auto (Bld) [#/Vol] Ordered By: Cory Reese on 09-19-2021 Basophils (Bld) [#/Vol] 0.0 10*3/uL 0.0-0.2 [facility] Basophils/100 WBC Auto (Bld) Ordered By: Cory Reese on 09-19-2021 Basophils/100 WBC (Bld) 0.2 % [facility] Blood hemoglobin measurement (mass/volume)Ordered By: Cory Reese on 09-19-2021 Hemoglobin (Bld) [Mass/Vol] 11.4 g/dL 13.0-17.0 [facility] Blood leukocytes automated c ount (number/volume)Ordered By: Cory Reese on 09-19-2021 WBC (Bld) [#/Vol] 7.1 10*3/uL 4.5-11.0 [facility] Eosinophils Auto (Bld) [#/Vo l]Ordered By: Cory Reese on 09-19-2021 Eosinophils (Bld) [#/Vol] 0.0 10*3/uL 0.0-0.45 [facility] Eosinophils/100 WBC Auto (Bl d)Ordered By: Cory Reese on 09-19-2021 Eosinophils/100 WBC (Bld) 0.0 % [facility] Erythrocyte distribution wid th Auto (RBC) [Ratio]Ordered By: Cory Reese on 09-19-2021 Erythrocyte distribution width (RBC) [Ratio] 13.1 % 12.0-14.8 [facility] Globulin Calc (S) [Mass/Vol] Ordered By: Cory Reese on 09-19-2021 Globulin (S) [Mass/Vol] 3.2 g/dL [facility] Glucose mean value [Mass/vol ume] in Blood Estimated from glycated hemoglobinOrdered By: Cory Reese on 09-19-2021 Average glucose Estimated from glycated hemoglobin (Bld) [Mass/Vol] 137 mg/dL [facility] Hematocrit Auto (Bld) [Volum e fraction]Ordered By: Cory Reese on 09-19-2021 Hematocrit (Bld) [Volume fraction] 34.5 % 38.8-50.0 [facility] Hemoglobin A1c percentageOrd ered By: Cory Reese on 09-19-2021 HbA1c (Bld) [Mass fraction] 6.4 % 4.3-5.6 [facility] Comment on above: Increased risk for d iabetes: 5.7 - 6.4diabetes: >6.4glycemic control for adults with diabetes: <7.0 Laboratory - Chemistry and C hemistry - challengeOrdered By: Cory Reese on 09-19-2021 Magnesium [Mass/Vol] 2.0 mg/dL 1.6-2.6 [facility] Laboratory - CoagulationOrde red By: Cory Reese on 09-19-2021 PT Coag (PPP) [Time] 11.8 s 9.0-12.9 [facility] Laboratory - Hematology and Cell countsOrdered By: Cory Reese on 09-19-2021 Nucleated RBC/100 WBC (Bld) [Ratio] 0.1 % 0-0.5 [facility] Lymphocytes Auto (Bld) [#/Vo l]Ordered By: Cory Reese on 09-19-2021 Lymphocytes (Bld) [#/Vol] 0.8 10*3/uL 1.00-4.8 [facility] Lymphocytes/100 WBC Auto (Bl d)Ordered By: Cory Reese on 09-19-2021 Lymphocytes/100 WBC (Bld) 11.8 % [facility] MCH Auto (RBC) [Entitic mass ]Ordered By: Cory Reese on 09-19-2021 MCH (RBC) [Entitic mass] 30.5 pg 27.5-35.2 [facility] MCHC Auto (RBC) [Mass/Vol]Or dered By: Cory Reese on 09-19-2021 MCHC (RBC) [Mass/Vol] 33.0 g/dL 32.5-35.6 [facility] MCV Auto (RBC) [Entitic vol] Ordered By: Cory Reese on 09-19-2021 MCV (RBC) [Entitic vol] 92.4 fL 83.5-101 [facility] Monocytes Auto (Bld) [#/Vol] Ordered By: Cory Reese on 09-19-2021 Monocytes (Bld) [#/Vol] 0.4 10*3/uL 0.0-0.8 [facility] Monocytes/100 WBC Auto (Bld) Ordered By: Cory Reese on 09-19-2021 Monocytes/100 WBC (Bld) 6.3 % [facility] Neutrophils Auto (Bld) [#/Vo l]Ordered By: Cory Reese on 09-19-2021 Neutrophils (Bld) [#/Vol] 5.8 10*3/uL 1.8-7.7 [facility] Neutrophils/100 WBC Auto (Bl d)Ordered By: Cory Reese on 09-19-2021 Neutrophils/100 WBC (Bld) 81.7 % [facility] No Panel InformationOrdered By: Cory Reese on 09-19-2021 Platelet Estimate Normal Normal [facility] Platelet Morphology Comment Normal Normal [facility] Platelet mean volume Auto (B ld) [Entitic vol]Ordered By: Cory Reese on 09-19-2021 Platelet mean volume (Bld) [Entitic vol] 8.3 fL 6.6-10.1 [facility] Platelet poor plasma interna tional normalized ratio (INR) by coagulation assay (relatOrdered By: Cory Reese on 09-19-2021 INR Coag (PPP) [Relative time] 1.1 {INR} [facility] Comment on above: INR Therapeutic Rang e A) Pre- and Peroperative OAT started two weeks before surgery. NOT HIP SURGERY: 1.5 - 2.5 HIP SURGERY: 2 - 3B) Primary and secondary prevention of venous THROMBOSIS: 2 - 3C) Active venous thrombosis, pulmonary embolismand prevention of recurrent venous thrombosis: 2 - 3D) Prevention of arterial thromboembolismincluding patients with mechanical heart valves: 3 - 4.5 Platelets Auto (Bld) [#/Vol] Ordered By: Cory Reese on 09-19-2021 Platelets (Bld) [#/Vol] 239 10*3/uL 150-450 [facility] Protein [Mass/volume] in Ser um or PlasmaOrdered By: Cory Reese on 09-19-2021 Protein [Mass/Vol] 5.8 g/dL 6.1-7.9 [facility] RBC Auto (Bld) [#/Vol]Ordere d By: Cory Reese on 09-19-2021 RBC (Bld) [#/Vol] 3.73 10*6/uL 3.90-5.60 [facility] RBC morphologyOrdered By: Jesus Reese on 09-19-2021 RBC morphology finding Nom (Bld) Normal [facility] Serum or plasma alanine meyer otransferase measurement without P-5'-P (enzymatic activiOrdered By: Cory Reese on 09-19-2021 ALT No additional P-5'-P [Catalytic activity/Vol] 42 U/L 10-60 [facility] Serum or plasma albumin/glob ulin mass ratioOrdered By: Cory Reese on 09-19-2021 Albumin/Globulin [Mass ratio] 0.8 {ratio} [facility] Serum or plasma alkaline ramona sphatase measurement (enzymatic activity/volume)Ordered By: Cory Reese on 09-19-2021 ALP [Catalytic activity/Vol] 47 U/L 32-92 [facility] Serum or plasma aspartate am inotransferase measurement (enzymatic activity/volume)Ordered By: Cory Reese on 09-19-2021 AST [Catalytic activity/Vol] 34 U/L 10-42 [facility] Serum or plasma total biliru bin measurement (mass/volume)Ordered By: Cory Reese on 09-19-2021 Bilirubin [Mass/Vol] 1.0 mg/dL 0.3-1.2 [facility] TSH DL <= 0.005 mIU/L QnOrde red By: Cory Reese on 09-19-2021 TSH Qn 2.61 m[IU]/L 0.45-5.33 [facility] COVID-19 Positive/NegativeOr dered By: Sharda Brown on 09-13-2021 SARS-CoV-2 (COVID-19) N gene ANGELO+probe Ql (Resp) Negative Negative [facility] Comment on above: Testing for SARS-CoV -2 by RT-PCRThis test was developed and its performance characteristics determined by [employer] ([place] and validated at the [facility]. This test has not been FDA cleared or approved. This test has been authorized by FDA under an Emergency Use Authorization (EUA). This test has been validated in accordance with the FDA's Guidance Document (Policy for Diagnostics Testing in Laboratories Certified to Perform High Complexity Testing under CLIA prior to Emergency Use Authorization for Coronavirus Disease-2019 during the Public Health Emergency) issued on November 14, 2019. This test is only authorized for the duration of time the declaration that circumstances exist justifying the authorization of the emergency use of in vitro diagnostic tests for detection of SARS-CoV-2 virus and/or diagnosis of COVID-19 infection under section 564(b)(1) of the Act, 21 U.S.C. 360bbb-3(b)(1), unless the authorization is terminated or revoked sooner. Basophils Auto (Bld) [#/Vol] Ordered By: Sharda Brown on 09-09-2021 Basophils (Bld) [#/Vol] 0.0 10*3/uL 0.0-0.2 [facility] Basophils/100 WBC Auto (Bld) Ordered By: Sharda Brown on 09-09-2021 Basophils/100 WBC (Bld) 0.7 % [facility] Blood hemoglobin measurement (mass/volume)Ordered By: Sharda Brown on 09-09-2021 Hemoglobin (Bld) [Mass/Vol] 13.5 g/dL 13.0-17.0 [facility] Blood leukocytes automated c ount (number/volume)Ordered By: Sharda Brown on 09-09-2021 WBC (Bld) [#/Vol] 5.4 10*3/uL 4.5-11.0 [facility] Creatinine and Glomerular fi ltration rate.predicted panel (S/P/Bld)Ordered By: Sharda Brown on 09-09-2021 Creatinine [Mass/Vol] 1.13 mg/dL 0.64-1.27 [facility] Eosinophils Auto (Bld) [#/Vo l]Ordered By: Sharda Brown on 09-09-2021 Eosinophils (Bld) [#/Vol] 0.3 10*3/uL 0.0-0.45 [facility] Eosinophils/100 WBC Auto (Bl d)Ordered By: Sharda Brown on 09-09-2021 Eosinophils/100 WBC (Bld) 4.7 % [facility] Erythrocyte distribution wid th Auto (RBC) [Ratio]Ordered By: Sharda Brown on 09-09-2021 Erythrocyte distribution width (RBC) [Ratio] 12.5 % 12.0-14.8 [facility] Estimated glomerular filtrat ion rate (GFR) non- AmericanOrdered By: Sharda Brown on 09-09-2021 GFR/1.73 sq M.predicted among non-blacks MDRD (S/P/Bld) [Vol rate/Area] > 60 mL/Min [facility] Hematocrit Auto (Bld) [Volum e fraction]Ordered By: Sharda Brown on 09-09-2021 Hematocrit (Bld) [Volume fraction] 39.6 % 38.8-50.0 [facility] Laboratory - Hematology and Cell countsOrdered By: Sharda Brown on 09-09-2021 Nucleated RBC/100 WBC (Bld) [Ratio] 0.2 % 0-0.5 [facility] Lymphocytes Auto (Bld) [#/Vo l]Ordered By: Sharda Brown on 09-09-2021 Lymphocytes (Bld) [#/Vol] 1.3 10*3/uL 1.00-4.8 [facility] Lymphocytes/100 WBC Auto (Bl d)Ordered By: Sharda Brown on 09-09-2021 Lymphocytes/100 WBC (Bld) 24.6 % [facility] MCH Auto (RBC) [Entitic mass ]Ordered By: Sharda Brown on 09-09-2021 MCH (RBC) [Entitic mass] 31.3 pg 27.5-35.2 [facility] MCHC Auto (RBC) [Mass/Vol]Or dered By: Sharda Brown on 09-09-2021 MCHC (RBC) [Mass/Vol] 34.0 g/dL 32.5-35.6 [facility] MCV Auto (RBC) [Entitic vol] Ordered By: Sharda Brown on 09-09-2021 MCV (RBC) [Entitic vol] 91.9 fL 83.5-101 [facility] Monocytes Auto (Bld) [#/Vol] Ordered By: Sharda Brown on 09-09-2021 Monocytes (Bld) [#/Vol] 0.5 10*3/uL 0.0-0.8 [facility] Monocytes/100 WBC Auto (Bld) Ordered By: Sharda Brown on 09-09-2021 Monocytes/100 WBC (Bld) 9.6 % [facility] Neutrophils Auto (Bld) [#/Vo l]Ordered By: Sharda Brown on 09-09-2021 Neutrophils (Bld) [#/Vol] 3.3 10*3/uL 1.8-7.7 [facility] Neutrophils/100 WBC Auto (Bl d)Ordered By: Sharda Brown on 09-09-2021 Neutrophils/100 WBC (Bld) 60.4 % [facility] No Panel InformationOrdered By: Sharda Brown on 09-09-2021 Estimated GFR () > 60 mL/Min [facility] Comment on above: GFR estimated refere nce range: According to KDOQI guidelines, <60 ml/min/1.73m2 is sufficient to diagnose a patient with chronic kidney disease. Pharmacy Creatinine Clearance (Chem N/A [facility] Platelet mean volume Auto (B ld) [Entitic vol]Ordered By: Sharda Brown on 09-09-2021 Platelet mean volume (Bld) [Entitic vol] 8.4 fL 6.6-10.1 [facility] Platelets Auto (Bld) [#/Vol] Ordered By: Sharda Brown on 09-09-2021 Platelets (Bld) [#/Vol] 228 10*3/uL 150-450 [facility] RBC Auto (Bld) [#/Vol]Ordere d By: Sharda Brown on 09-09-2021 RBC (Bld) [#/Vol] 4.32 10*6/uL 3.90-5.60 [facility] Serum or plasma calcium kassidy urement (mass/volume)Ordered By: Sharda Brown on 09-09-2021 Calcium [Mass/Vol] 10.1 mg/dL 8.2-10.2 [facility] Serum or plasma chloride norma surement (moles/volume)Ordered By: Sharad Brown on 09-09-2021 Chloride [Moles/Vol] 102 mmol/L 95-114 [facility] Serum or plasma glucose kassidy urement (mass/volume)Ordered By: Sharda Brown on 09-09-2021 Glucose [Mass/Vol] 145 mg/dL 70-100 [facility] Comment on above: ADA recommended refe rence rangeRandom Glucose Reference Range is dependent on time and content of last meal. Glucose of more than 200 mg/dL in a nonstressed, ambulatory subject supports the diagnosis of Diabetes Mellitus. Serum or plasma potassium me asurement (moles/volume)Ordered By: Sharda Brown on 09-09-2021 Potassium [Moles/Vol] 3.3 mmol/L 3.5-5.1 [facility] Serum or plasma sodium measu rement (moles/volume)Ordered By: Sharda Brown on 09-09-2021 Sodium [Moles/Vol] 138 mmol/L 136-146 [facility] Serum or plasma total carbon dioxide measurement (moles/volume)Ordered By: Sharda Brown on 09-09-2021 CO2 [Moles/Vol] 27.2 mmol/L 22.0-30.0 [facility] Serum or plasma urea nitroge n measurement (mass/volume)Ordered By: Sharda Brown on 09-09-2021 Urea nitrogen [Mass/Vol] 9 mg/dL 9-23 [facility] Operative Reporton 9 Operative Report MR#: [id number] [facility] Pt. Name: Tyler Torres Room #: 0C Discharge Date: Birthdate: 1945 OPERATIVE REPORT DATE OF SURGERY: 07/05/2019 SURGEON: Vicente Tripathi M.D. ASSISTANTS: Poornima Arredondo M.D. PREOPERATIVE DIAGNOSIS: Left dorsal forearm wound. POSTOPERATIVE DIAGNOSIS: Left dorsal forearm wound. PROCEDURES PERFORMED: 1. Preparation of skin graft site. 2. Split-thickness skin grafting, left dorsal forearm. ANESTHESIA: General. FLUIDS: As per Anesthesia records. ESTIMATED BLOOD LOSS: 5 mL. DRAINS: None. COMPLICATIONS: None. SPECIMENS: None. IMPLANTS: None. EXPLANTS: None. OPERATIVE INDICATIONS: The patient is a 74-year-old male, who sustained a severe left dorsal forearm wound secondary to a high-pressure injection injury with water. He has undergone multiple irrigation and debridements as well as attempts at closure. Additionally, he trialed a DermaClose without success. He was therefore deemed an appropriate candidate to proceed to the operating room for split-thickness skin grafting of the left dorsal forearm. DESCRIPTION OF PROCEDURE: The patient was greeted in the preoperative holding area by the operating surgeon. The patient's left upper extremity was marked with the operating surgeon's initials. Informed consent was obtained and all questions were answered. Prophylactic antibiotics were administered. The patient was taken back to the operating theater and placed in the supine position on the operating table with the left arm on an armboard. Anesthesia was induced without complication. The left lower extremity and left upper extremity were prepped and draped in normal sterile fashion. A time-out was performed confirming correct patient, correct procedure, and correct laterality. We began by obtaining our skin graft from the anterolateral left thigh. The site was measured and marked with a skin marker before using a 2 inch dermatome to obtain our graft. We then applied a dressing consisting of Xeroform soaked in epinephrine. This was sequentially wrapped in 4x4s, Webril, and May wrap. Attention was then turned to the left forearm wound. This measured 6.5 x 4 cm at the beginning of the case. There was no exposed tendon noted. The site was therefore debrided down to healthy bleeding tissue using a curette. No purulence or necrotic tissue was noted. The wound was copiously irrigated with normal saline before applying our skin graft, which had been meshed on the back table. This was stapled into place. The wound was then cleansed and a sterile dressing applied with Adaptic, cotton soaked in mineral oil, 4x4s, Kerlix, and May wrap. The patient was then awoken from anesthesia without complication and transferred to the PACU in stable condition. POSTOPERATIVE PLAN: The patient will remain nonweightbearing to the left upper extremity. He will maintain his surgical dressings until the time of his followup. He will follow up in clinic in 7 days, sooner if there are concerns. Dr. Tripathi was present for all critical portions of the procedure and otherwise immediately available to assist at all times. Electronically Signed by: Vicente Tripathi M.D. 07/08/2019 12:55 P Vicente Tripathi M.D. I was present for the ryan and critical portions and I was otherwise immediately available to assist. Date Dict: 07/05/2019/03:41 P/Poornima Arredondo MD Date Trans: 07/05/2019 04:07 P/mmo [id number] cc: Armando Richards M.D. [address], [address] [facility] [address] Normal [facility] POC GLUCOSE LABon 07-05-2019 Glucose [Mass/Vol] 93 mg/dL Normal 70-100 [facility] Comment on above: Performed By: #### [id number] #### [facility] [address] [place] [address], [facility] APTTon 07-04-2019 aPTT Coag (Bld) [Time] 27.0 s Normal 25.0-35.0 [facility] Comment on above: Result Comment: ALL RESULTS MUST BE INTERPRETED WITH RESPECT TO BLOOD DRAWING ARTIFACT OR DILUTION ERROR OF ANTICOAGULANT AT THE TIME OF SAMPLING. THE APTT SHOULD NOT BE USED TO MONITOR UNFRACTIONATED HEPARIN THERAPY, THIS LABORATORY NO LONGER HAS AN ESTABLISHED THERAPEUTIC RANGE BASED ON THE APTT. IT IS RECOMMENDED THAT THE [facility] - HEPARIN ASSAY (ANTI-XA ACTIVITY) BE USED FOR THIS PURPOSE. Performed By: #### [id number] #### [facility] [address] [place] [address], [facility] BASIC METABOLIC PANELon 06-15 Calcium [Mass/Vol] 10.3 mg/dL Normal 8.6-10.3 [facility] Comment on above: Performed By: #### [id number] #### [facility] [address] [place] [address], [facility] Chloride [Moles/Vol] 103 mmol/L Normal 98-107 [facility] Comment on above: Performed By: #### [id number] #### [facility] [address] [place] [address], [facility] CO2 [Moles/Vol] 29 mmol/L Normal 21-31 [facility] Comment on above: Performed By: #### [id number] #### [facility] [address] [place] [address], [facility] Creatinine [Mass/Vol] 1.10 mg/dL Normal 0.70-1.30 [facility] Comment on above: Performed By: #### [id number] #### [facility] [address] [place] [address], [place] GFR/1.73 sq M predicted among blacks MDRD (S/P/Bld) [Vol rate/Area] mL/min/{1.73_m2} Normal >60 [facility] Comment on above: Result Comment: Calc ulation may not be valid for patients over 70 years Performed By: #### [id number] #### [facility] [address] [place] [address], [place] GFR/1.73 sq M predicted among non-blacks MDRD (S/P/Bld) [Vol rate/Area] mL/min/{1.73_m2} Normal >60 [facility] Comment on above: Result Comment: Calc ulation may not be valid for patients over 70 years Performed By: #### [id number] #### [facility] [address] [place] [address], [place] Glucose [Mass/Vol] 125 mg/dL High 70-100 [facility] Comment on above: Performed By: #### [id number] #### [facility] [address] [place] [address], [place] Potassium [Moles/Vol] 3.9 mmol/L Normal 3.5-5.1 [facility] Comment on above: Performed By: #### [id number] #### [facility] [address] [place] [address], [place] Sodium [Moles/Vol] 138 mmol/L Normal 136-145 [facility] Comment on above: Performed By: #### [id number] #### [facility] [address] [place] [address], [place] Urea nitrogen [Mass/Vol] 19 mg/dL Normal 7-25 [facility] Comment on above: Performed By: #### [id number] #### [facility] [address] [facility] [place] [address], [facility] CBC W/DIFFon 07-04-2019 ABS BASOPHILS 0.1 10*3/uL Normal 0.0-0.2 [facility] Comment on above: Performed By: #### [id number] #### [facility] [address] [facility] [place] [address], [facility] ABS IMM GRANS 0.0 10*3/uL Normal 0.0-0.2 [facility] Comment on above: Performed By: #### [id number] #### [facility] [address] [place] [address], [facility] ABS NEUTROPHILS 6.3 10*3/uL Normal 1.6-7.6 [facility] Comment on above: Performed By: #### 0 [id number] #### [facility] [address] [facility] [place] [address], [facility] Basophils/100 WBC (Bld) 0.6 % Normal 0.0-1.0 [facility] Comment on above: Performed By: #### [id number] #### [facility] [address] [facility] [place] [address], [facility] Eosinophils (Bld) [#/Vol] 0.2 10*3/uL Normal 0.0-0.5 [facility] Comment on above: Performed By: #### 0 [id number] #### [facility] [address] [facility] [place] [address], [facility] Eosinophils/100 WBC (Bld) 1.8 % Normal 0.0-6.0 [facility] Comment on above: Performed By: #### 0 [id number] #### [facility] [address] [place] [address], [facility] Erythrocyte distribution width (RBC) [Ratio] 12.5 % Normal 11.5-15.0 [facility] Comment on above: Performed By: #### 0 [id number] #### [facility] [address] [facility] [place] [address], [facility] Hematocrit (Bld) [Volume fraction] 40.7 % Normal 39.0-50.0 [facility] Comment on above: Performed By: #### 0 [id number] #### [facility] [address] [facility] [place] [address], [facility] Hemoglobin (Bld) [Mass/Vol] 13.0 g/dL Normal 13.0-17.0 [facility] Comment on above: Performed By: #### 0 [id number] #### [facility] [address] [facility] [place] [address], [facility] IMMATURE GRANS 0.5 % Normal 0.0-1.0 [facility] Comment on above: Performed By: #### 0 [id number] #### [facility] [address] [facility] [place] [address], [facility] Lymphocytes (Bld) [#/Vol] 1.6 10*3/uL Normal 1.2-4.0 [facility] Comment on above: Performed By: #### 0 [id number] #### [facility] [address] [facility] [place] [address], [facility] Lymphocytes/100 WBC (Bld) 18.1 % Low 20.0-45.0 [facility] Comment on above: Performed By: #### 0 [id number] #### [facility] [address] [facility] [place] [address], [facility] MCH (RBC) [Entitic mass] 31.3 pg Normal 27.0-33.0 [facility] Comment on above: Performed By: #### 0 [id number] #### [facility] [address] [place] [address], [facility] MCHC (RBC) [Mass/Vol] 31.9 g/dL Low 32.0-35.0 [facility] Comment on above: Performed By: #### 0 [id number] #### [facility] [address] [facility] [place] [address], [facility] MCV (RBC) [Entitic vol] 97.8 fL Normal 82.0-98.0 [facility] Comment on above: Performed By: #### 0 [id number] #### [facility] [address] [facility] [place] [address], [facility] Monocytes (Bld) [#/Vol] 0.7 10*3/uL Normal 0.1-1.0 [facility] Comment on above: Performed By: #### 0 [id number] #### [facility] [address] [place] [address], [facility] MONOS 8.2 % Normal 5.0-12.0 [facility] Comment on above: Performed By: #### 0 [id number] #### [facility] [address] Neutrophils/100 WBC (Bld) 70.8 % Normal 40.0-72.0 [facility] Comment on above: Performed By: #### 0 [id number] #### [facility] [address] [place] [address], [facility] Nucleated RBC/100 WBC (Bld) [Ratio] 0 % Normal 0-0 [facility] Comment on above: Performed By: #### 0 [id number] #### [facility] [address] [facility] [place] [address], [facility] PLAT CNT 247 10*3/uL Normal 150-400 [facility] Comment on above: Performed By: #### 0 [id number] #### [facility] [address] [place] [address], [facility] RBC (Bld) [#/Vol] 4.16 10*6/uL Low 4.20-5.70 [facility] Comment on above: Performed By: #### 0 [id number] #### [facility] [address] [facility] WBC (Bld) [#/Vol] 8.83 10*3/uL Normal 4.00-10.60 [facility] Comment on above: Performed By: #### 0 [id number] #### [facility] [address] [facility] [address] PROTHROMBIN TIMEon 11-21-201 9 INR Coag (PPP) [Relative time] 0.94 {INR} Normal 0.91-1.16 [facility] Comment on above: Result Comment: ACCC P RECOMMENDED INR FOR WARFARIN THERAPY ------- ------- CONDITION INR PROPHYLAXIS OF VENOUS THROMBOSIS 2-3 (HIGH-RISK SURGERY) TREATMENT OF VENOUS THROMBOSIS 2-3 TREATMENT OF PULMONARY EMBOLISM 2-3 PREVENTION OF SYSTEMIC EMBOLISM: 2-3 ACUTE MYOCARDIAL INFARCTION TISSUE HEART VALVES VALVULAR HEART DISEASE ATRIAL FIBRILLATION RECURRENT SYSTEMIC EMBOLISM MECHANICAL HEART VALVE 2.5-3.5 FROM: ORAL ANTICOAGULANTS. MECHANISM OF ACTION, CLINICAL EFFECTIVENESS, AND OPTIMAL THERAPEUTIC RANGE. CHEST 1995;108:231S-246S. Performed By: #### 5 [id number] #### [facility] [address] [facility] [place] [address], [facility] PT Coag (PPP) [Time] 12.6 s Normal 12.3-14.8 [facility] Comment on above: Result Comment: ALL RESULTS MUST BE INTERPRETED WITH RESPECT TO BLOOD DRAWING ARTIFACT OR DILUTION ERROR OF ANTICOAGULANT AT THE TIME OF SAMPLING. Performed By: #### [id number] #### [facility] [address] Operative Reporton 9 Operative Report MR#: [id number] [facility] Pt. Name: Tyler Torres Room #: 0C Discharge Date: Birthdate: 1945 OPERATIVE REPORT DATE OF SURGERY: 06/14/2019 SURGEON: Vicente Tripathi M.D. CONSUMER LOAN SPECIALIST: Poornima Arredondo M.D. PREOPERATIVE DIAGNOSIS: Left dorsal forearm wound. POSTOPERATIVE DIAGNOSIS: Left dorsal forearm wound. PROCEDURES PERFORMED: Irrigation and debridement of left forearm wound measuring 7 x 4 cm down to and including muscle and tendon with ACell application. ANESTHESIA: General. FLUIDS: As per Anesthesia records. ESTIMATED BLOOD LOSS: 5 mL. DRAINS: None. COMPLICATIONS: None. SPECIMENS: None. IMPLANTS: None. EXPLANTS: None. OPERATIVE INDICATIONS: The patient is a 74-year-old male, who sustained a pressure washing injury to his dorsal forearm in April of this year. He underwent irrigation and debridement with fasciotomy of the volar forearm on May 08. He subsequently underwent 3 successive I and Ds including a DermaClose application and removal. He was deemed an appropriate candidate to proceed to the operating room for I and D with possible closure of his forearm wound. DESCRIPTION OF PROCEDURE: The patient was greeted in the preoperative holding area by the operating surgeon. The patient's left upper extremity was marked with the operating surgeon's initials. Informed consent was obtained and all questions were answered. Prophylactic antibiotics were administered. The patient was taken back to the operating theater and placed in the supine position on the operating table with the left arm on an armboard. Anesthesia was induced without complication. The left upper extremity was prepped and draped in normal sterile fashion. A time-out was performed confirming correct patient, correct procedure, and correct laterality. The patient's wound at the start of the procedure measured 7 x 4 cm. There was approximately 1 cm of exposed tendon noted in the bed of the wound. Otherwise, there was healthy granulation tissue. We proceeded to debride the wound sharply with a curette until healthy bleeding tissue was reached. The edges of the skin were undermined and mobilized as much as possible. A 2-0 nylon suture was then employed in a vertical mattress fashion in order to attempt partial closure of the wound. At the end of closure, the wound measured approximately 6.5 x 2 cm. At that point, the skin remained under too much tension to proceed with complete closure of the wound. Based on the patient's exposed tendon, we decided to proceed with ACell application. Two 60 mL vials of ACell powder were applied to the wound after copiously irrigating with Betadine and normal saline. A sterile dressing was then applied with Adaptic, Surgilube, 4x4's, Kerlix, and May wrap. The patient was awoken from anesthesia without complication and transferred to the PACU in stable condition. POSTOPERATIVE PLAN: The patient will remain nonweightbearing to the left upper extremity. He will follow up in clinic in 7 days. He will maintain his surgical dressing until that time. We anticipate likely repeat irrigation and debridement with likely split-thickness skin grafting after the patient's tendon is able to be covered with healthy granulation tissue. Dr. Tripathi was present for all critical portions of the procedure and otherwise immediately available to assist at all times. Electronically Signed by: Vicente Tripathi M.D. 06/16/2019 09:04 A Vicente Tripathi M.D. I was present for the ryan and critical portions and I was otherwise immediately available to assist. Date Dict: 06/15/2019/02:44 P/Poornima Arredondo MD Date Trans: 06/15/2019 03:29 P/taye [id number] cc: Armando Richards M.D. [address] [place] [address] Normal [facility] POC GLUCOSE LABon 06-14-2019 Glucose [Mass/Vol] 119 mg/dL High 70-100 [facility] Comment on above: Performed By: #### 0 [id number] #### [facility] [address] [place], [place] [address] [place] [address] Operative Reporton 9 Operative Report MR#: [id number] [facility] Pt. Name: Tyler Torres Room #: 0C Discharge 05/31/2019 Date: Birthdate: 1945 OPERATIVE REPORT DATE OF SURGERY: 05/31/2019 SURGEON: Vicente Tripathi M.D. ASSISTANTS: 1. Yareli Sanchez MD. 2. Poornima Arredondo M.D. 3. Franca Gerebr M.D. PREOPERATIVE DIAGNOSIS: Left forearm high-pressure injection injury. POSTOPERATIVE DIAGNOSIS: Left forearm high-pressure injection injury. PROCEDURE PERFORMED: Removal of DermaClose with irrigation, debridement and partial closure of wound. ANESTHESIA: General. FLUIDS: Per Anesthesia record. EBL: 25 mL. DRAINS: None. COMPLICATIONS: None. SPLINTS: DermaClose closure device. SPECIMENS: None. 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 He says he has undergone multiple irrigation and debridements. Most recently, he had a repeat irrigation and debridement with partial closure using a DermaClose skin closure device. He was recently seen back in clinic and decision was made to proceed with removal of DermaClose device and possible closure of the wound. PROCEDURE: The patient was greeted in the preoperative holding area where he was seen by emergency surgical team. The operative site was marked and the procedure to be performed was discussed, as well as risks, benefits, and alternatives with the patient. He elected to proceed. He was then taken back to the operating room where he was positioned supine on the operative table. A tourniquet was applied and the left arm was prepped and draped in a normal sterile fashion. A time-out was performed indicating the patient's name, laterality, and procedure to be performed. We then began the procedure with removal of the DermaClose device. He was noted to have some improvement in the size of his wound and it now measured 10 x 5 cm in size. There was no note of any significant erythema or drainage. The wound was then copiously irrigated with 6 L normal saline and debridement was carried down to and including muscle using a curette. We then began a closure of the wound utilizing 3-0 PDS on both the proximal and distal ends in a deep dermal fashion. Approximately 2 cm of each end were able to be closed and the skin was then closed using nylon with vertical mattress sutures. The remaining area of the wound is unable to be closed primarily and therefore 3 skin closure wires were used and tensioned appropriately in the operative room. A wet-to-dry dressing was then placed and he was subsequently awakened from anesthesia and transferred to the PACU for additional care. POSTOPERATIVE PLAN: We will plan to have the patient do daily wet-to-dry dressing changes over the remaining wound. We will plan to see him back in 5-7 days in clinic at which time we will continue to tension the closure wires. Pending evaluation of the wound, he may require additional irrigation and debridement with wound closure in the operating room. Electronically Signed by: Vicente Tripathi M.D. 06/05/2019 05:08 P Vicente Tripathi M.D. I was present for the ryan and critical portions and I was otherwise immediately available to assist. Date Dict: 06/03/2019/06:49 P/Yareli Sanchez MD Date Trans: 06/04/2019 02:31 A/taye [id number] cc: Armando Richards M.D. [address] [place] [address], [address] [place] [address] Normal [facility] POC GLUCOSE LABon 05-31-2019 Glucose [Mass/Vol] 94 mg/dL Normal 70-100 [facility] Comment on above: Performed By: #### 0 [id number] #### [address] Operative Reporton 9 Operative Report MR#: [id number] [facility] Pt. Name: Tyler Torres Room #: 0C Discharge 05/24/2019 Date: Birthdate: 1945 OPERATIVE REPORT DATE OF SURGERY: 05/24/2019 SURGEON: Vicente Tripathi M.D. ASSISTANTS: 1. Yareli Sanchez MD. 2. Franca Gerber M.D. 3. Poornima Arredondo M.D. PREOPERATIVE DIAGNOSIS: Left forearm high-pressure injection injury. POSTOPERATIVE DIAGNOSIS: Left forearm high-pressure injection injury. PROCEDURE PERFORMED: Irrigation of left forearm wound with application of DermaClose. ANESTHESIA: General. FLUIDS: Per Anesthesia record. EBL: 25 mL. DRAINS: None. COMPLICATIONS: None. IMPLANTS: DermaClose closure device. EXPLANTS: None. SPECIMENS: None. OPERATIVE INDICATIONS: This is a 74-year-old male, who initially presented after a high-power car washer injection injury to his left forearm. He has subsequently undergone multiple irrigations and debridements. Most recently, he had a repeat irrigation and debridement on May 17, 2019, at which time he was noted to have significant soft tissue defect overlying the wound and it was unable to be closed primarily. He was recently seen in clinic and incision was made to proceed with application of DermaClose device noted to assist in wound closure. PROCEDURE: The patient was prepped in the preoperative holding area where he was seen by members of surgical team. The operative site was marked and the procedure to be performed as well as risks, benefits, and alternatives were again discussed with the patient. He elected to proceed and he was taken back to the operating room where he was positioned supine on the operative table. A tourniquet was applied, and the left arm was prepped and draped in a normal sterile fashion. A time-out was performed indicating the patient's name, laterality, and procedure to be performed. We began with thorough irrigation and debridement of the wound after measuring it to be 11 x 7 cm in size. There was no note of any significant erythema or drainage. It was copiously irrigated with 6 L of normal saline and debridement was carried down to and including muscle using a curette. The skin edges were then undermined using a 15 blade in order to allow for better motion of the skin to assist with closure. The DermaClose device was then utilized, placing the skin sutures with 3 on either side of the wound. The wire from the device was then placed over the skin sutures appropriately. It was then tensioned to the appropriate setting and the tensioning device was sutured to the skin using nylon suture. Prior to application of the device, the wound was covered in Adaptic. This was then dressed with sterile fluffs and Kerlix and overwrapped with an May wrap. The patient tolerated procedure well and was subsequently awakened from anesthesia and brought to the PACU. POSTOPERATIVE PLAN: We will plan to see the patient back in approximately 5 days in clinic for repeat wound evaluation. At this time, they may discontinue their twice daily wet-to-dry dressings over the wound. ADDENDUM Please add to the most recent operative report regarding surgery on May 24, 2019, that, Dr. Tripathi was present for the critical portions of procedure and was immediately available for assistance at all times. Electronically Signed by: Vicente Tripathi M.D. 05/29/2019 11:41 A Vicente Tripathi M.D. I was present for the ryan and critical portions and I was otherwise immediately available to assist. Date Dict: 05/27/2019/11:48 A/Yareli Sanchez MD Date Trans: 05/27/2019 10:21 P/mmo Addendum: 05/27/2019 11:49 A/mmo Copied and Pasted: 05/28/2019 09:04 A/mb [id number] cc: Armando Richards M.D. [facility], [address] [place] [address] Normal [facility] POC GLUCOSE LABon 05-24-2019 Glucose [Mass/Vol] 88 mg/dL Normal 70-100 [facility] Comment on above: Performed By: #### 0 [id number] #### [facility] [address] [facility] Operative Reporton 9 Operative Report MR#: [id number] S [facility] Pt. Name: Tyler Torres Room #: 0C Discharge 05/17/2019 Date: Birthdate: 1945 OPERATIVE REPORT DATE OF SURGERY: 05/17/2019 SURGEON: Vicente Tripathi M.D. ASSISTANTS: 1. Yareli Sanchez MD. 2. Franca Gerber M.D. 3. Poornima Arredondo M.D. PREOPERATIVE DIAGNOSIS: Left forearm high-pressure injection injury. POSTOPERATIVE DIAGNOSIS: Left forearm high-pressure injection injury. PROCEDURES PERFORMED: Irrigation and debridement of left forearm with partial closure of wound. ANESTHESIA: General. FLUIDS: As per Anesthesia record. ESTIMATED BLOOD LOSS: 25 mL. DRAINS: None. COMPLICATIONS: None. IMPLANTS: None. EXPLANTS: None. SPECIMENS: None. 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 He had initially presented to another facility, where his arm was washed and closed with suture. However, he was then transferred to us and it was deemed appropriate to proceed with formal irrigation and debridement in the operating room. He was most recently debrided on 05/08/2019. He recently returned to clinic, where he was clinically re-evaluated and decision was made to proceed with repeat irrigation and debridement. DESCRIPTION OF PROCEDURE: The patient was brought to the preoperative holding area, where he was met by members of the surgical team. The operative site was marked by all members of surgical team and the risks, benefits, and alternatives were again discussed. The patient elected to proceed with the procedure. He was subsequently taken to the operating room, where general anesthesia was smoothly induced and he was placed supine on the operative table. The left upper extremity was prepped and draped in the usual sterile fashion. A time-out was performed confirming the patient's name, laterality, and procedure to be performed. The wound was measured at 12 x 7 cm in size. We then performed sharp excisional debridement utilizing a curette and a rongeur down to and including muscle tissue. Any necrotic-appearing tissue was removed and cut back to healthy bleeding tissue. Hemostasis was achieved using Bovie electrocautery. The skin edges were then mobilized to evaluate for possible closure. We were able to close approximately 2 cm at the distal aspect of the wound. However, the majority was unable to be closed at this time and a wet-to-dry dressing was applied. He was subsequently awakened from anesthesia with no complications and transferred to PACU in stable condition. POSTOPERATIVE PLAN: The patient will continue with twice daily wet-to-dry dressing changes to the left forearm. We did discuss with the patient and his family members that this may require skin grafting in the future. Given the size of the soft tissue defect over the muscle. We will plan to see him back postoperatively in 10 to 14 days for repeat clinical evaluation. Dr. Tripathi was present for all critical portions of the procedure and was otherwise immediately available to assist at all times. Electronically Signed by: Vicente Tripathi M.D. 05/25/2019 11:51 A Vicente Tripathi M.D. I was present for the ryan and critical portions and I was otherwise immediately available to assist. Date Dict: 05/20/2019/09:56 P/Yareli Sanchez MD Date Trans: 05/21/2019 08:14 A/taye [id number] cc: Armando Richards M.D. [address] [facility], [address] [facility] [address] Normal [facility] APTTon 05-17-2019 aPTT Coag (Bld) [Time] 26.1 s Normal 25.0-35.0 [facility] Comment on above: Result Comment: ALL RESULTS MUST BE INTERPRETED WITH RESPECT TO BLOOD DRAWING ARTIFACT OR DILUTION ERROR OF ANTICOAGULANT AT THE TIME OF SAMPLING. THE APTT SHOULD NOT BE USED TO MONITOR UNFRACTIONATED HEPARIN THERAPY, THIS LABORATORY NO LONGER HAS AN ESTABLISHED THERAPEUTIC RANGE BASED ON THE APTT. IT IS RECOMMENDED THAT THE [facility] - HEPARIN ASSAY (ANTI-XA ACTIVITY) BE USED FOR THIS PURPOSE. Performed By: #### [id number], [id number] #### [facility] [address] [facility] [place] [address], [facility] POC GLUCOSE LABon 05-17-2019 Glucose [Mass/Vol] 99 mg/dL Normal 70-100 [facility] Comment on above: Performed By: #### [id number] #### [facility] [address] [facility] [place] [address], [facility] PROTHROMBIN TIMEon 9 INR Coag (PPP) [Relative time] 0.93 {INR} Normal 0.91-1.16 [facility] Comment on above: Result Comment: ACCC P RECOMMENDED INR FOR WARFARIN THERAPY ------- ------- CONDITION INR PROPHYLAXIS OF VENOUS THROMBOSIS 2-3 (HIGH-RISK SURGERY) TREATMENT OF VENOUS THROMBOSIS 2-3 TREATMENT OF PULMONARY EMBOLISM 2-3 PREVENTION OF SYSTEMIC EMBOLISM: 2-3 ACUTE MYOCARDIAL INFARCTION TISSUE HEART VALVES VALVULAR HEART DISEASE ATRIAL FIBRILLATION RECURRENT SYSTEMIC EMBOLISM MECHANICAL HEART VALVE 2.5-3.5 FROM: ORAL ANTICOAGULANTS. MECHANISM OF ACTION, CLINICAL EFFECTIVENESS, AND OPTIMAL THERAPEUTIC RANGE. CHEST 1995;108:231S-246S. Performed By: #### 0 [id number] #### [facility] [address] PT Coag (PPP) [Time] 12.5 s Normal 12.3-14.8 [facility] Comment on above: Result Comment: ALL RESULTS MUST BE INTERPRETED WITH RESPECT TO BLOOD DRAWING ARTIFACT OR DILUTION ERROR OF ANTICOAGULANT AT THE TIME OF SAMPLING. Performed By: #### 0 [id number] #### [facility] [address] [facility] Operative Reporton 9 Operative Report MR#: [id number] 2 [facility] Pt. Name: Tyler Torres Room #: [id number] Discharge 05/09/2019 Date: Birthdate: 1945 OPERATIVE REPORT DATE OF SURGERY: 05/08/2019 SURGEON: Vicente Tripathi M.D. ADDENDUM: Please note, the patient's volar forearm compartment was opened with blunt dissection after debriding the muscle around the laceration with the curette. No significant muscle bulging was noted at that time, and all soft tissues were found to be of appropriate color and consistency. Electronically Signed by: Vicente Tripathi M.D. 05/16/2019 05:35 P Vicente Tripathi M.D. I was present for the ryan and critical portions and I was otherwise immediately available to assist. Date Dict: 05/13/2019/07:27 P/Poornima Arredondo MD Date Trans: 05/14/2019 02:30 A/taye [id number] Normal [facility] Coding Summaryon 05-10-2019 Coding Summary CODING DATE: 019 [facility] STATUS: Discharge/Transfer to Another Hospital PAYOR: Medicare APC DESCRIPTION 5521 Level 1 Imaging without Contrast ADMIT DX: REASON FOR VISIT DX: S51.812A Laceration without foreign body of left forearm, initial encounter FINAL DX: PRINCIPAL: S51.812A Laceration without foreign body of left forearm, initial encounter SECONDARY: S61.412A Laceration without foreign body of left hand, initial encounter W31.89XA Contact with other specified machinery, initial encounter Y93.H9 Activity, other involving exterior property and land maintenance, building and construction Z23 Encounter for immunization PYMT PROC APC STAT DESCRIPTION DOCTOR NAME DATE NOTE: The code number assigned matches the documented diagnosis and / or procedure in the patient's chart. However, the narrative phrase printed from the coding software may appear abbreviated, or result in slightly different terminology. Coded By: Mirna Atkinson Date Saved: 05/10/2019 02:19 pm Normal [facility] Operative Reporton 9 Operative Report MR#: [id number] [facility] Pt. Name: Tyler Torres Room #: [id number] Discharge Date: Birthdate: 1945 OPERATIVE REPORT DATE OF SURGERY: 05/08/2019 SURGEON: Vicente Tripathi M.D. ASSISTANTS: Poornima Arredondo M.D., Franca Gerber M.D. PREOPERATIVE DIAGNOSIS: Left forearm high-pressure injection injury. POSTOPERATIVE DIAGNOSIS: Left forearm high-pressure injection injury. PROCEDURES PERFORMED: Irrigation and debridement of the left forearm, left forearm volar fasciotomy. ANESTHESIA: General. FLUIDS: As per Anesthesia records. ESTIMATED BLOOD LOSS: 25 mL. DRAINS: None. COMPLICATIONS: None. IMPLANTS: None. EXPLANTS: None. SPECIMENS: None. OPERATIVE INDICATIONS: The patient is a 74-year-old male, who presented to us after a high-pressure injection injury from power washing. He initially presented to an outside facility, where his arm was washed and closed with suture. When transferred to us, he was deemed an appropriate candidate to proceed to the operating room for formal irrigation and debridement of the forearm. DESCRIPTION OF PROCEDURE: The patient was greeted in the preoperative holding area by the operating surgeon. The patient's left upper extremity was marked with the operating surgeon's initials. Informed consent was obtained and all questions were answered. Prophylactic antibiotics were administered. The patient was taken back to the operating theater and placed in the supine position on the operating table with the left arm on an arm table. Anesthesia was induced without complication. The left upper extremity was prepped and draped in normal sterile fashion. A time-out was performed confirming correct patient, correct procedure, and correct laterality. We began by extending the patient's laceration approximately 2 cm proximally and 1 cm distally. We then used a 15 blade to remove the skin edges, as these appeared unviable. We proceeded to debride the surrounding muscle gently with a curette. No foreign objects were noted. Hemostasis was achieved with electrocautery. Several small muscular bleeders were noted and these were tied with 2-0 silk ties. We then copiously irrigated the wound with Betadine and normal saline. Wet-to-dry dressing was applied and covered with 4 x 4, ABD, Kerlix, and May wrap. The patient was awoken from anesthesia without complication and transferred to the PACU in stable condition. POSTOPERATIVE PLAN: The patient will receive twice daily wet-to-dry dressing changes to the left forearm. He will receive IV antibiotic prophylaxis. We will plan to take him for repeat irrigation and debridement of his wound, most likely in 2-[address] Tripathi was present for all critical portions of the procedure and otherwise immediately available to assist at all times. Electronically Signed by: Vicente Tripathi M.D. 05/11/2019 08:39 A Vicente Tripathi M.D. I was present for the ryan and critical portions and I was otherwise immediately available to assist. Date Dict: 05/08/2019/06:21 Denny/Poornima Arredondo MD Date Trans: 05/09/2019 05:19 A/mmo [id number] Normal [facility] POC GLUCOSE LABon 05-08-2019 Glucose [Mass/Vol] 93 mg/dL Normal 70-100 [facility] Comment on above: Performed By: #### [id number] #### [facility] [address] [place] [address], [facility] TYPE AND SCREENon 05-08-2019 ABO INTERPRETATION A Normal [facility] Comment on above: Performed By: #### 6 [id number] #### [facility] [address] [place] [address], [facility] RH INTERPRETATION Positive Normal [facility] Comment on above: Performed By: #### 6 [id number] #### [facility] [address] [place] [address], [facility] BASIC METABOLIC PANELon 04-15 Calcium [Mass/Vol] 10.7 mg/dL High 8.6-10.3 [facility] Comment on above: Order Comment: No: D o not add to previous draw Performed By: #### 0 0071 #### [facility] [address] [place] [address], [place] Chloride [Moles/Vol] 104 mmol/L Normal 98-107 [facility] Comment on above: Order Comment: No: D o not add to previous draw Performed By: #### 0 0071 #### [facility] [address] [place] [address], [place] CO2 [Moles/Vol] 27 mmol/L Normal 21-31 [facility] Comment on above: Order Comment: No: D o not add to previous draw Performed By: #### 0 0071 #### [facility] [address] [place] [address], [place] Creatinine [Mass/Vol] 1.15 mg/dL Normal 0.60-1.20 [facility] Comment on above: Order Comment: No: D o not add to previous draw Performed By: #### 0 0071 #### [facility] [address] [place] [address], [facility] GFR/1.73 sq M predicted among blacks MDRD (S/P/Bld) [Vol rate/Area] 56 ml/min/1.73sq m Abnormal >60 [facility] Comment on above: Order Comment: No: D o not add to previous draw Result Comment: Calc ulation may not be valid for patients over 70 years Performed By: #### 0 [id number] #### [facility] [address] [place] [address], [facility] GFR/1.73 sq M predicted among non-blacks MDRD (S/P/Bld) [Vol rate/Area] 46 ml/min/1.73sq m Abnormal >60 [facility] Comment on above: Order Comment: No: D o not add to previous draw Result Comment: Calc ulation may not be valid for patients over 70 years Performed By: #### 0 [id number] #### [facility] [address] [place] [address], [place] Glucose [Mass/Vol] 116 mg/dL High 70-[address] [facility] Comment on above: Order Comment: No: D o not add to previous draw Performed By: #### 0 0071 #### [facility] [address] [place] [address], [place] Potassium [Moles/Vol] 3.5 mmol/L Normal 3.5-5.1 [facility] Comment on above: Order Comment: No: D o not add to previous draw Performed By: #### 0 0071 #### [facility] [address] [place] [address], [facility] Sodium [Moles/Vol] 140 mmol/L Normal 136-145 [facility] Comment on above: Order Comment: No: D o not add to previous draw Performed By: #### 0 0071 #### [facility] [address] [place] [id number], [facility] Urea nitrogen [Mass/Vol] 17 mg/dL Normal 7-25 [facility] Comment on above: Order Comment: No: D o not add to previous draw Performed By: #### 0 0071 #### [facility] [address] [place] [address], [facility] CBC COMPLETE BLOOD COUNTon 0 - Erythrocyte distribution width (RBC) [Ratio] 13.1 % Normal 11.5-15.0 [facility] Comment on above: Order Comment: No: D o not add to previous draw Performed By: #### 5 [id number] #### [facility] [address] [place] [id number], [facility] Hematocrit (Bld) [Volume fraction] 43.9 % Normal 36.0-45.0 [facility] Comment on above: Order Comment: No: D o not add to previous draw Performed By: #### 5 0608 #### [facility] [address] [place] [id number], [facility] Hemoglobin (Bld) [Mass/Vol] 14.5 g/dL Normal 12.0-15.0 [facility] Comment on above: Order Comment: No: D o not add to previous draw Performed By: #### 5 0608 #### [facility] [address] [place] [id number], [facility] MCH (RBC) [Entitic mass] 32.4 pg Normal 27.0-33.0 [facility] Comment on above: Order Comment: No: D o not add to previous draw Performed By: #### 5 0608 #### [facility] [address] [place] [address], [facility] MCHC (RBC) [Mass/Vol] 33.0 g/dL Normal 32.0-35.0 [facility] Comment on above: Order Comment: No: D o not add to previous draw Performed By: #### 5 0608 #### [facility] [address] [place] [address], [facility] MCV (RBC) [Entitic vol] 98.2 fL High 82.0-98.0 [facility] Comment on above: Order Comment: No: D o not add to previous draw Performed By: #### 5 0608 #### [facility] [address] [place] [id number], [facility] Nucleated RBC/100 WBC (Bld) [Ratio] 0 % Normal 0-0 [facility] Comment on above: Order Comment: No: D o not add to previous draw Performed By: #### 5 0608 #### [facility] [address] [place] [id number], [place] PLAT CNT 228 10*3/uL Normal 150-400 [facility] Comment on above: Order Comment: No: D o not add to previous draw Performed By: #### 5 0608 #### [facility] [address] [place] [id number], [facility] RBC (Bld) [#/Vol] 4.47 10*6/uL Normal 3.80-5.00 The [facility] Comment on above: Order Comment: No: D o not add to previous draw Performed By: #### 5 [id number] #### [facility] [address] [place] [address], [place] WBC (Bld) [#/Vol] 13.08 10*3/uL High 4.00-10.60 [facility] Comment on above: Order Comment: No: D o not add to previous draw Performed By: #### 5 0608 #### [facility] [address] ED Clinical Summaryon 2018 ED Clinical Summary [facility] Emergency Department [address] [place] [address] ED Clinical Summary PERSON INFORMATION Name: TYLER TORRES Age: 74 Years Sex: MALE : 1945 MRN: Acct#: Visit Reason: Arm laceration; LEFT ARM LAC Arrival: 05/07/2019 13:31:10 Discharge: 05/07/2019 18:10:00 LOS: 000 04:39 Check In: 05/07/2019 13:31:10 Checkout:05/07/2019 18:10:00 Address: [address] [place] [id number] PCP: ARMANDO RICHARDS PROVIDER INFORMATION Provider Role Assigned Unassigned José Estevez ED PA 05/07/2019 13:32:52 Emanuel RN, Courtney Bartlett ED Nurse 05/07/2019 13:43:17 VITALS INFORMATION Vital Sign Triage Latest Temperature Tympanic Temperature Temporal Artery Pulse Rate 85 bpm 83 bpm O2 Sat 97 % 97 % Respiratory Rate 20 br/min 18 br/min Blood Pressure /88 mmHg /88 mmHg MEDICAL INFORMATION Medications Given: Medication Dose Route bacitracin topical 500 unit(s) TOP Tdap 0.5 mL IM ampicillin-sulbactam 1.5 gm IV Piggyback Allergy Information: No Known Medication Allergies PHYSICIAN DOCUMENTATION Patient: TYLER TORRES Age: 74 years Sex: MALE : 1945 Associated Diagnoses: Laceration of forearm, left, complicated; Skin tear of hand without complication; High-pressure injection injury of finger Author: José Estevez Basic Information Time seen: Date & time 05/07/2019 13:39:00. History source: Patient. Arrival mode: Private vehicle. History limitation: None. History of Present Illness Patient is a 74-year-old right-handed male with history of diabetes type 2, who presents to the emergency department for evaluation of left forearm laceration, patient seen in room 10. Patient states he was using a car washer, was standing on top of, he slipped off and caught his arm on the side causing a large laceration proximal aspect of the forearm, he states it was bleeding quite a bit and had a tie a cloth around with a rope to control the bleeding. He reports that he does have some tingling in the area the laceration both distal to proximal, but is able to move his left upper extremity through a range of motion, does not appear to be any significant tendon damage or nerve damage, he does not recall his last tetanus vaccination. Review of Systems Constitutional symptoms: No fever, no chills. Skin symptoms: No rash, no abrasions. Eye symptoms: No discharge, no diplopia, no blurred vision. ENMT symptoms: Negative except as documented in HPI. Respiratory symptoms: No shortness of breath, Cardiovascular symptoms: No chest pain, Gastrointestinal symptoms: No abdominal pain, no nausea, no vomiting. Musculoskeletal symptoms: Negative except as documented in HPI. Neurologic symptoms: Negative except as documented in HPI. Health Status Allergies: No allergies have been recorded.. Past Medical/ Family/ Social History Medical history: No active or resolved past medical history items have been selected or recorded.. Surgical history: No active procedure history items have been selected or recorded.. Family history: No family history items have been selected or recorded.. Social history: Social & Psychosocial Habits No Data Available . Problem list: No qualifying data available . Physical Examination Vital Signs Vital Signs 05/07/2019 13:38 EDT Temperature Temporal 36.6 DegC Peripheral Pulse Rate 85 bpm Respiratory Rate 20 br/min Systolic Blood Pressure 136 mmHg Diastolic Blood Pressure 88 mmHg SpO2 97 % Oxygen Therapy Room air . General: Alert, no acute distress. Skin: Warm, dry. Head: Normocephalic, atraumatic. Neck: Supple, trachea midline. Eye: Extraocular movements are intact, normal conjunctiva. Cardiovascular: +S1, S2 Regular. Respiratory: Lungs are clear to auscultation, respirations are non-labored, breath sounds are equal. Gastrointestinal: Soft, Nontender, Non distended, Normal bowel sounds. Musculoskeletal: Patient has a large at least 5 cm jagged laceration in the proximal left forearm, almost in line with antecubital fossa region, there is another 3 cm of abrasion, that is superficial and does not require suture closure, no active bleeding at this time, he has pierced seizures both proximal and distal to that incision by at least 4 cm in circumference, is able to move his elbow through range of motion without difficulty or pain, there is no pain with palpation in the aspect of the sternal wrist, radius or ulna, is a skin tear on the dorsal of his left hand, that measures about 3 cm and is quite jagged, there are no tendons or bony landmarks seen. He has a strong 2+ real pulse, less than 2 second cap room all 5 digits of the left hand.. Neurological: Alert and oriented to person, place, time, and situation, No focal neurological deficit observed. Psychiatric: Cooperative. Medical Decision Making Differential Diagnosis: Laceration, skin tear. Orders Launch Orders Patient Care: Wound Care Routine (Order): 05/07/2019 13:46 EDT Pharmacy: tetanus/diphth/pertuss (Tdap) adult/adol (Order): 0.5 mL, IM, Once epinephrine 0.01mg/mL with 2% lidocaine (20mg/mL) (Order): 1 mL, SubQ, Once bacitracin topical (Order): 1 daron, TOP, Once Radiology: XR Forearm 2 Views Left (Order): 05/07/2019 13:47 EDT Stat, Laceration proximal forearm laceration, rule out foreign body., Allow Modification Per Radiologist, Transport Mode: Wheelchair, Laceration proximal forearm laceration, rule out foreign body, Launch Orders Pharmacy: ampicillin-sulbactam (Unasyn) (Order): 1.5 gm, IV Piggyback, Once Sodium Chloride 0.9% intravenous solution (Order): 1,000 mL, 50 mL/hr, IV, NOW, Launch Orders Admit/Transfer/Discharge: Transfer to: (Order): 05/07/2019 15:51 EDT, Constant Indicator, Patient to be transferred to [facility] emergency department, accepting physician Dr. Brandt/Bhumi orthopedics.. Reexamination/ Reevaluation Patient is a 74-year-old male who presents to the emergency room for evaluation of proximal forearm laceration. From physical exam, there is no tendon involvement, but there is some anesthesias from cutting skin nerves, but there are no major nerves from physical exam, I discussed them that these paresthesias may be permanent, or may heal through time. He is on members last tetanus vaccination so we'll vaccinate, in regards to the laceration, it is quite large and jagged, and irregular so wanted obtain x-ray to ensure there is no foreign body, as it appears deep, we discussed about local anesthetic, closing the wound he was in agreement and understanding of treatment plan The patient's wound in the left forearm was closed, and I was reviewing x-ray with supervising physician, we asked me about the air under the skin which I said that he had a large wound, however there seemed to be distal in the area of the wrist, I went back and reassessed the patient how this happened, then he told me that he moved his hand from the high pressure sprayer, causing this injury, which changes the treatment plan. Reports there was only water he thinks, but with air underneath the skin under high pressure, arm may need to be opened up and irrigated in the operating room, I discussed this with Dr. Alvares, who I contacted prior to closing the wound to ensure that he would see him on outpatient basis. He agrees with having him be evaluated by orthopedics at [facility]. We'll start an IV, give him one and half grams of Unasyn. I discussed the patient the potential complications with this type injury, he indicated understanding and agreement. I contacted Dr. Tripathi, approximately 3:30 PM, we discussed the patient's injury, and x-ray findings, he agreed with accepting the patient, so we will contact the emergency department. Discussed with Dr. Obrien, attending at [facility], patient's history, presentation, x-ray findings and physical exam findings. She agreed with also excepting the patient in transfer, and that I previously discussed with . I discussed with her antibiotics that I was initiating, and we'll transport him through EMS. I discussed all this information with the patient, and he was in agreement. Procedure Patient has a laceration in the left proximal forearm near the antecubital fossa, the deepest part of the laceration measures approximately 7 cm, this is full-thickness, into the patient's antecubital fossa, it is through the subcutaneous tissue, through the muscle fascia, through what appears to be the proximal aspect of the brachial radialis, I can see transected muscle, the distal aspect maybe in the mid forearm, patient is able to give the thumbs up sign, is able keep his finger straight I try to collapse them, he has full range of motion of fingers, hand, wrist, and elbow, there does not appear to be any deficits. He has paresthesias around that 7 cm area both distal and proximal approximately 3 cm on each side, this area was washed and scrubbed with Betasept and normal saline solution, there were no foreign bodies that I can appreciate or debris, the wound was irrigated, sponge was placed deep inside the wound and cleansed and dried, the wound was inspected in a bloodless field there was no foreign debris that I can appreciate, 2% lidocaine with epinephrine was injected along the wound edge, and some instilled into the wound, a total of 2 cc of local anesthetic were used. 4, #3 on Vicryl sutures were placed to adhere the tissue and fascia back together, prior to closure, there is no hematoma noted, 3 additional 3-0 Vicryls were placed in the subcutaneous tissue to approximate that, followed by a total of 16, # 4-0 nylon sutures. Impression and Plan Diagnosis Laceration of forearm, left, complicated (XUF56-DE S51.812A, Discharge, Medical) High-pressure injection injury of finger (ZNI59-OR S69.80XA, Admitting, Medical) Laceration of forearm, left, complicated (AEV84-JI S51.812A, Admitting, Medical) Skin tear of hand without complication (BZL21-HP S61.419A, Admitting, Medical) Skin tear of hand without complication (HQN15-GM S61.419A, Discharge, Medical) This was a high pressure injury to the left forearm, extension to distal forearm and wrist Plan Condition: Improved, Stable. Disposition: Transfer to other location: Time: 05/07/2019 18:03:00, Patient to be transferred to [facility] emergency department, accepting physician Dr. Brandt/Bhumi orthopedics.. Patient was given the following educational materials: Laceration Care, Adult, Stitches, [place], or Adhesive Wound Closure, Skin Tear Care. Counseled: Patient, Family, Regarding diagnosis, Regarding diagnostic results, Regarding treatment plan, Regarding prescription, Patient indicated understanding of instructions. DISCHARGE INFORMATION: Discharge Disposition: Discharge/Transfer to Another Hospital Discharge Location: [facility] PATIENT EDUCATION INFORMATION Instructions: Skin Tear Care; Stitches, [place], or Adhesive Wound Closure; Laceration Care, Adult Follow-Up: DIAGNOSIS: Patient Understands: Comment: [facility] ED Note - Physicianon 2018 ED Note - Physician Patient: TYLER TORRES Age: 74 years Sex: MALE : 1945 Associated Diagnoses: Laceration of forearm, left, complicated; Skin tear of hand without complication; High-pressure injection injury of finger Author: José Estevez Basic Information Time seen: Date & time 05/07/2019 13:39:00. History source: Patient. Arrival mode: Private vehicle. History limitation: None. History of Present Illness Patient is a 74-year-old right-handed male with history of diabetes type 2, who presents to the emergency department for evaluation of left forearm laceration, patient seen in room 10. Patient states he was using a car washer, was standing on top of, he slipped off and caught his arm on the side causing a large laceration proximal aspect of the forearm, he states it was bleeding quite a bit and had a tie a cloth around with a rope to control the bleeding. He reports that he does have some tingling in the area the laceration both distal to proximal, but is able to move his left upper extremity through a range of motion, does not appear to be any significant tendon damage or nerve damage, he does not recall his last tetanus vaccination. Review of Systems Constitutional symptoms: No fever, no chills. Skin symptoms: No rash, no abrasions. Eye symptoms: No discharge, no diplopia, no blurred vision. ENMT symptoms: Negative except as documented in HPI. Respiratory symptoms: No shortness of breath, Cardiovascular symptoms: No chest pain, Gastrointestinal symptoms: No abdominal pain, no nausea, no vomiting. Musculoskeletal symptoms: Negative except as documented in HPI. Neurologic symptoms: Negative except as documented in HPI. Health Status Allergies: No allergies have been recorded.. Past Medical/ Family/ Social History Medical history: No active or resolved past medical history items have been selected or recorded.. Surgical history: No active procedure history items have been selected or recorded.. Family history: No family history items have been selected or recorded.. Social history: Social & Psychosocial Habits No Data Available . Problem list: No qualifying data available . Physical Examination Vital Signs Vital Signs 05/07/2019 13:38 EDT Temperature Temporal 36.6 DegC Peripheral Pulse Rate 85 bpm Respiratory Rate 20 br/min Systolic Blood Pressure 136 mmHg Diastolic Blood Pressure 88 mmHg SpO2 97 % Oxygen Therapy Room air . General: Alert, no acute distress. Skin: Warm, dry. Head: Normocephalic, atraumatic. Neck: Supple, trachea midline. Eye: Extraocular movements are intact, normal conjunctiva. Cardiovascular: +S1, S2 Regular. Respiratory: Lungs are clear to auscultation, respirations are non-labored, breath sounds are equal. Gastrointestinal: Soft, Nontender, Non distended, Normal bowel sounds. Musculoskeletal: Patient has a large at least 5 cm jagged laceration in the proximal left forearm, almost in line with antecubital fossa region, there is another 3 cm of abrasion, that is superficial and does not require suture closure, no active bleeding at this time, he has pierced seizures both proximal and distal to that incision by at least 4 cm in circumference, is able to move his elbow through range of motion without difficulty or pain, there is no pain with palpation in the aspect of the sternal wrist, radius or ulna, is a skin tear on the dorsal of his left hand, that measures about 3 cm and is quite jagged, there are no tendons or bony landmarks seen. He has a strong 2+ real pulse, less than 2 second cap room all 5 digits of the left hand.. Neurological: Alert and oriented to person, place, time, and situation, No focal neurological deficit observed. Psychiatric: Cooperative. Medical Decision Making Differential Diagnosis: Laceration, skin tear. Orders Launch Orders Patient Care: Wound Care Routine (Order): 05/07/2019 13:46 EDT Pharmacy: tetanus/diphth/pertuss (Tdap) adult/adol (Order): 0.5 mL, IM, Once epinephrine 0.01mg/mL with 2% lidocaine (20mg/mL) (Order): 1 mL, SubQ, Once bacitracin topical (Order): 1 daron, TOP, Once Radiology: XR Forearm 2 Views Left (Order): 05/07/2019 13:47 EDT Stat, Laceration proximal forearm laceration, rule out foreign body., Allow Modification Per Radiologist, Transport Mode: Wheelchair, Laceration proximal forearm laceration, rule out foreign body, Launch Orders Pharmacy: ampicillin-sulbactam (Unasyn) (Order): 1.5 gm, IV Piggyback, Once Sodium Chloride 0.9% intravenous solution (Order): 1,000 mL, 50 mL/hr, IV, NOW, Launch Orders Admit/Transfer/Discharge: Transfer to: (Order): 05/07/2019 15:51 EDT, Constant Indicator, Patient to be transferred to [facility] emergency department, accepting physician Dr. Brandt/Bhumi orthopedics.. Reexamination/ Reevaluation Patient is a 74-year-old male who presents to the emergency room for evaluation of proximal forearm laceration. From physical exam, there is no tendon involvement, but there is some anesthesias from cutting skin nerves, but there are no major nerves from physical exam, I discussed them that these paresthesias may be permanent, or may heal through time. He is on members last tetanus vaccination so we'll vaccinate, in regards to the laceration, it is quite large and jagged, and irregular so wanted obtain x-ray to ensure there is no foreign body, as it appears deep, we discussed about local anesthetic, closing the wound he was in agreement and understanding of treatment plan The patient's wound in the left forearm was closed, and I was reviewing x-ray with supervising physician, we asked me about the air under the skin which I said that he had a large wound, however there seemed to be distal in the area of the wrist, I went back and reassessed the patient how this happened, then he told me that he moved his hand from the high pressure sprayer, causing this injury, which changes the treatment plan. Reports there was only water he thinks, but with air underneath the skin under high pressure, arm may need to be opened up and irrigated in the operating room, I discussed this with Dr. Alvares, who I contacted prior to closing the wound to ensure that he would see him on outpatient basis. He agrees with having him be evaluated by orthopedics at [facility]. We'll start an IV, give him one and half grams of Unasyn. I discussed the patient the potential complications with this type injury, he indicated understanding and agreement. I contacted Dr. Tripathi, approximately 3:30 PM, we discussed the patient's injury, and x-ray findings, he agreed with accepting the patient, so we will contact the emergency department. Discussed with Dr. Obrien, attending at [facility], patient's history, presentation, x-ray findings and physical exam findings. She agreed with also excepting the patient in transfer, and that I previously discussed with . I discussed with her antibiotics that I was initiating, and we'll transport him through EMS. I discussed all this information with the patient, and he was in agreement. Procedure Patient has a laceration in the left proximal forearm near the antecubital fossa, the deepest part of the laceration measures approximately 7 cm, this is full-thickness, into the patient's antecubital fossa, it is through the subcutaneous tissue, through the muscle fascia, through what appears to be the proximal aspect of the brachial radialis, I can see transected muscle, the distal aspect maybe in the mid forearm, patient is able to give the thumbs up sign, is able keep his finger straight I try to collapse them, he has full range of motion of fingers, hand, wrist, and elbow, there does not appear to be any deficits. He has paresthesias around that 7 cm area both distal and proximal approximately 3 cm on each side, this area was washed and scrubbed with Betasept and normal saline solution, there were no foreign bodies that I can appreciate or debris, the wound was irrigated, sponge was placed deep inside the wound and cleansed and dried, the wound was inspected in a bloodless field there was no foreign debris that I can appreciate, 2% lidocaine with epinephrine was injected along the wound edge, and some instilled into the wound, a total of 2 cc of local anesthetic were used. 4, #3 on Vicryl sutures were placed to adhere the tissue and fascia back together, prior to closure, there is no hematoma noted, 3 additional 3-0 Vicryls were placed in the subcutaneous tissue to approximate that, followed by a total of 16, # 4-0 nylon sutures. Impression and Plan Diagnosis Laceration of forearm, left, complicated ([id number] S51.812A, Discharge, Medical) High-pressure injection injury of finger (GXQ58-IU S69.80XA, Admitting, Medical) Laceration of forearm, left, complicated (GCP91-MS S51.812A, Admitting, Medical) Skin tear of hand without complication (VJJ16-XQ S61.419A, Admitting, Medical) Skin tear of hand without complication (GBZ52-EM S61.419A, Discharge, Medical) This was a high pressure injury to the left forearm, extension to distal forearm and wrist Plan Condition: Improved, Stable. Disposition: Transfer to other location: Time: 05/07/2019 18:03:00, Patient to be transferred to [facility] emergency department, accepting physician Dr. Brandt/Bhumi orthopedics.. Patient was given the following educational materials: Laceration Care, Adult, Stitches, [place], or Adhesive Wound Closure, Skin Tear Care. Counseled: Patient, Family, Regarding diagnosis, Regarding diagnostic results, Regarding treatment plan, Regarding prescription, Patient indicated understanding of instructions. [Electronically Signed on: 05/07/2019 18:17 EDT] José Estevez [Verified on: 05/07/2019 18:17 EDT] José Estevez I contacted patient on 05/10/19 at 4:20 PM, to check to see how he was doing. He reports that he went to the operating room, he opened up his arm extensively, and cleaned and washed the area thoroughly, as it had the cleaning solution from the sprayer involved with the deeper tissues. They left the wound open, they're going to have him come back to the operating room in the next couple days and have the wound closed. Patient take me for calling him, he is doing well, and thanked me in, and the hospital for taking care of him. [Electronically Signed on: 05/10/2019 16:21 EDT] José Estevez [facility] ED Note-Nursingon 05-07-2019 ED Note-Nursing Pt presents to work r/t laceration to left forearm. Pt reports he cut his arm on a piece of steel at work. Radial pulses strong and equal. Pt reports pain is about a 6/10. Resps even and unlabored, pt stable at this time. Normal [facility] ED Patient Education Noteon 05-07-2019 ED Patient Education Note Education Materials Dermatology Skin Tear Care A skin tear is a wound in which the top layers of skin have peeled off the deeper skin or tissues underneath them. This is a common problem as people get older because the skin becomes thinner and more fragile. In addition, some medicines, such as oral corticosteroids, can lead to skin thinning if they are taken for long periods of time. A skin tear is often repaired with tape or skin adhesive strips. Depending on the location of the wound, a bandage (dressing) may be applied over the tape or skin adhesive strips. Follow these instructions at home: Wound care ? Clean the wound as told by your health care provider. You may be instructed to keep the wound dry for the first few days. If you are told to clean the wound: ? Wash the wound with mild soap and water or a salt?water (saline) solution. ? Rinse the wound with water to remove all soap. ? Do not rub the wound dry. Let the wound air dry. ? Change any dressings as told by your health care provider. This includes changing the dressing if it gets wet, gets dirty, or starts to smell bad. ? Do not scratch or pick at the wound. ? Protect the injured area until it has healed. ? Check your wound every day for signs of infection. Check for: ? More redness, swelling, or pain. ? More fluid or blood. ? Warmth. ? Pus or a bad smell. Medicines ? Take ojct-qyh-exswfso and prescription medicines only as told by your health care provider. ? If you were prescribed an antibiotic medicine, take or apply it as told by your health care provider. Do not stop using the antibiotic even if your condition improves. General instructions ? Keep the dressing dry as told by your health care provider. ? Do not take baths, swim, or do anything that puts your wound underwater until your health care provider approves. ? Keep all follow-up visits as told by your health care provider. This is important. Contact a health care provider if: ? You have more redness, swelling, or pain around your wound. ? You have more fluid or blood coming from your wound. ? Your wound feels warm to the touch. ? You have pus or a bad smell coming from your wound. Get help right away if: ? You have a red streak that goes away from the skin tear. ? You have a fever and chills and your symptoms suddenly get worse. This information is not intended to replace advice given to you by your health care provider. Make sure you discuss any questions you have with your health care provider. Document Released: 04/25/2002 Document Revised: 03/26/2017 Document Reviewed: 06/20/2016 [employer] Patient Education ? 2019 [employer]. Stitches, [place], or Adhesive Wound Closure Health care providers use stitches (sutures), gena, and certain glue (skin adhesives) to hold skin together while it heals (wound closure). You may need this treatment after you have surgery or if you cut your skin accidentally. These methods help your skin to heal more quickly and make it less likely that you will have a scar. A wound may take several months to heal completely. The type of wound you have determines when your wound gets closed. In most cases, the wound is closed as soon as possible (primary skin closure). Sometimes, closure is delayed so the wound can be cleaned and allowed to heal naturally. This reduces the chance of infection. Delayed closure may be needed if your wound: ? Is caused by a bite. ? Happened more than 6 hours ago. ? Involves loss of skin or the tissues under the skin. ? Has dirt or debris in it that cannot be removed. ? Is infected. What are the different kinds of wound closures? There are many options for wound closure. The one that your health care provider uses depends on how deep and how large your wound is. Adhesive Glue To use this type of glue to close a wound, your health care provider holds the edges of the wound together and paints the glue on the surface of your skin. You may need more than one layer of glue. Then the wound may be covered with a light bandage (dressing). This type of skin closure may be used for small wounds that are not deep (superficial). Using glue for wound closure is less painful than other methods. It does not require a medicine that numbs the area (local anesthetic). This method also leaves nothing to be removed. Adhesive glue is often used for children and on facial wounds. Adhesive glue cannot be used for wounds that are deep, uneven, or bleeding. It is not used inside of a wound. Adhesive Strips These strips are made of sticky (adhesive), porous paper. They are applied across your skin edges like a regular adhesive bandage. You leave them on until they fall off. Adhesive strips may be used to close very superficial wounds. They may also be used along with sutures to improve the closure of your skin edges. Sutures Sutures are the oldest method of wound closure. Sutures can be made from natural substances, such as silk, or from synthetic materials, such as nylon and steel. They can be made from a material that your body can break down as your wound heals (absorbable), or they can be made from a material that needs to be removed from your skin (nonabsorbable). They come in many different strengths and sizes. Your health care provider attaches the sutures to a steel needle on one end. Sutures can be passed through your skin, or through the tissues beneath your skin. Then they are tied and cut. Your skin edges may be closed in one continuous stitch or in separate stitches. Sutures are strong and can be used for all kinds of wounds. Absorbable sutures may be used to close tissues under the skin. The disadvantage of sutures is that they may cause skin reactions that lead to infection. Nonabsorbable sutures need to be removed. Gena When surgical gena are used to close a wound, the edges of your skin on both sides of the wound are brought close together. A staple is placed across the wound, and an instrument secures the edges together. Gena are often used to close surgical cuts (incisions). [place] are faster to use than sutures, and they cause less skin reaction. Gena need to be removed using a tool that bends the gena away from your skin. How do I care for my wound closure? ? Take medicines only as directed by your health care provider. ? If you were prescribed an antibiotic medicine for your wound, finish it all even if you start to feel better. ? Use ointments or creams only as directed by your health care provider. ? Wash your hands with soap and water before and after touching your wound. ? Do not soak your wound in water. Do not take baths, swim, or use a hot tub until your health care provider approves. ? Ask your health care provider when you can start showering. Cover your wound if directed by your health care provider. ? Do not take out your own sutures or gena. ? Do not pick at your wound. Picking can cause an infection. ? Keep all follow-up visits as directed by your health care provider. This is important. How long will I have my wound closure? ? Leave adhesive glue on your skin until the glue peels away. ? Leave adhesive strips on your skin until the strips fall off. ? Absorbable sutures will dissolve within several days. ? Nonabsorbable sutures and gena must be removed. The location of the wound will determine how long they stay in. This can range from several days to a couple of weeks. When should I seek help for my wound closure? Contact your health care provider if: ? You have a fever. ? You have chills. ? You have drainage, redness, swelling, or pain at your wound. ? There is a bad smell coming from your wound. ? The skin edges of your wound start to separate after your sutures have been removed. ? Your wound becomes thick, raised, and darker in color after your sutures come out (scarring). This information is not intended to replace advice given to you by your health care provider. Make sure you discuss any questions you have with your health care provider. Document Released: 04/25/2002 Document Revised: 03/29/2017 Document Reviewed: 01/07/2015 [employer] Interactive Patient Education ? 2018 [employer] Laceration Care, Adult A laceration is a cut that goes through all of the layers of the skin and into the tissue that is right under the skin. Some lacerations heal on their own. Others need to be closed with stitches (sutures), gena, skin adhesive strips, or skin glue. Proper laceration care minimizes the risk of infection and helps the laceration to heal better. How is this treated? If sutures or gena were used: ? Keep the wound clean and dry. ? If you were given a bandage (dressing), you should change it at least one time per day or as told by your health care provider. You should also change it if it becomes wet or dirty. ? Keep the wound completely dry for the first 24 hours or as told by your health care provider. After that time, you may shower or bathe. However, make sure that the wound is not soaked in water until after the sutures or gena have been removed. ? Clean the wound one time each day or as told by your health care provider: ? Wash the wound with soap and water. ? Rinse the wound with water to remove all soap. ? Pat the wound dry with a clean towel. Do not rub the wound. ? After cleaning the wound, apply a thin layer of antibiotic ointment?as told by your health care provider. This will help to prevent infection and keep the dressing from sticking to the wound. ? Have the sutures or gena removed as told by your health care provider. If skin adhesive strips were used: ? Keep the wound clean and dry. ? If you were given a bandage (dressing), you should change it at least one time per day or as told by your health care provider. You should also change it if it becomes dirty or wet. ? Do not get the skin adhesive strips wet. You may shower or bathe, but be careful to keep the wound dry. ? If the wound gets wet, pat it dry with a clean towel. Do not rub the wound. ? Skin adhesive strips fall off on their own. You may trim the strips as the wound heals. Do not remove skin adhesive strips that are still stuck to the wound. They will fall off in time. If skin glue was used: ? Try to keep the wound dry, but you may briefly wet it in the shower or bath. Do not soak the wound in water, such as by swimming. ? After you have showered or bathed, gently pat the wound dry with a clean towel. Do not rub the wound. ? Do not do any activities that will make you sweat heavily until the skin glue has fallen off on its own. ? Do not apply liquid, cream, or ointment medicine to the wound while the skin glue is in place. Using those may loosen the film before the wound has healed. ? If you were given a bandage (dressing), you should change it at least one time per day or as told by your health care provider. You should also change it if it becomes dirty or wet. ? If a dressing is placed over the wound, be careful not to apply tape directly over the skin glue. Doing that may cause the glue to be pulled off before the wound has healed. ? Do not pick at the glue. The skin glue usually remains in place for 5?10 days, then it falls off of the skin. General Instructions ? Take rzsi-qpn-nuhvohi and prescription medicines only as told by your health care provider. ? If you were prescribed an antibiotic medicine or ointment, take or apply it as told by your doctor. Do not stop using it even if your condition improves. ? To help prevent scarring, make sure to cover your wound with sunscreen whenever you are outside after stitches are removed, after adhesive strips are removed, or when glue remains in place and the wound is healed. Make sure to wear a sunscreen of at least 30 SPF. ? Do not scratch or pick at the wound. ? Keep all follow-up visits as told by your health care provider. This is important. ? Check your wound every day for signs of infection. Watch for: ? Redness, swelling, or pain. ? Fluid, blood, or pus. ? Raise (elevate) the injured area above the level of your heart while you are sitting or lying down, if possible. Contact a health care provider if: ? You received a tetanus shot and you have swelling, severe pain, redness, or bleeding at the injection site. ? You have a fever. ? A wound that was closed breaks open. ? You notice a bad smell coming from your wound or your dressing. ? You notice something coming out of the wound, such as wood or glass. ? Your pain is not controlled with medicine. ? You have increased redness, swelling, or pain at the site of your wound. ? You have fluid, blood, or pus coming from your wound. ? You notice a change in the color of your skin near your wound. ? You need to change the dressing frequently due to fluid, blood, or pus draining from the wound. ? You develop a new rash. ? You develop numbness around the wound. Get help right away if: ? You develop severe swelling around the wound. ? Your pain suddenly increases and is severe. ? You develop painful lumps near the wound or on skin that is anywhere on your body. ? You have a red streak going away from your wound. ? The wound is on your hand or foot and you cannot properly move a finger or toe. ? The wound is on your hand or foot and you notice that your fingers or toes look pale or bluish. This information is not intended to replace advice given to you by your health care provider. Make sure you discuss any questions you have with your health care provider. Document Released: 07/31/2006 Document Revised: 12/30/2016 Document Reviewed: 07/27/2015 [employer] Interactive Patient Education ? 2019 [employer]. Normal [facility] ED Patient Summaryon 019 ED Patient Summary [facility] - Emergency Department [address] [id number] PATIENT DISCHARGE INSTRUCTIONS Patient Information Name: TYLER TORRES Age: 74 Years Date of : 1945 Reason For Visit: Arm laceration; LEFT ARM LAC Arrival Time: 05/07/2019 13:31:10 Primary Care Physician: ARMANDO RICHARDS Attending Physician: Don Lafleur MD Comment: Visit Diagnosis: Diagnoses This Visit Arm laceration ([id number]) High-pressure injection injury of finger (S69.80XA) Laceration of forearm, left, complicated (S51.812A) Skin tear of hand without complication (S61.419A) Prescription Information: If you have been given a prescription for narcotics, seek immediate medical attention if you have any difficulty breathing or any sudden status changes such as confusion and sleepiness. If you or anyone you know is experiencing suicidal thoughts, mental health, alcohol and/or drug addiction problems; contact the [facility] 06/03 Crisis Hotline -Text 4HECH kd 151293. If you received any narcotics, sedation, or any other medication that causes drowsiness for the next 24 hours, unless otherwise directed: ? Do not drive a car. ? Do not operate machinery such as power tools, lawn mowers, drills, sewing machines, or stoves ? Avoid alcoholic beverages and drugs for allergies, nerves, or sleep ? Do not make important personal or business decisions or sign any legal documents Medication Information: The exam and treatment you received today in the [facility] Emergency Department were for an urgent problem and are not intended as complete care. It is important for you to follow up with a doctor, nurse practitioner, or physician?s assistant drafter for ongoing care. If your symptoms become worse or you do not improve as expected and you are unable to reach your usual health care provider, you should return to the Emergency Department, we are available 24 hours a day. For those patients who have received Radiology results, the interpretation of your X-ray as given to you by our Emergency Department physician is only a preliminary report. The Radiologist will review your films and if there is a change in the diagnosis you will be notified by phone. Please make sure you have provided a working phone number so we can reach you if necessary. In the event that you had a lab culture while you were a patient in the Emergency Department, you will be notified by phone if there is a need to change your antibiotic. Please make sure you have provided a working phone number so we can reach you if necessary. [facility] Emergency Department has provided you with a complete list of medications post discharge. Please inform your director financial analysis/provider of your visit and for further instruction on these medications. Any specific questions regarding your chronic medications and dosages should be discussed with your primary care physician(s) and/or pharmacist. Visit Information Allergies: Substance Reaction Symptoms Type Comments No Known Medication Allergies Drug Vital Signs: Vitals and Measurements this Visit (last charted value for your 05/07/2019 visit) Vital Signs This Visit Temperature Temporal: 36.6 DegC Peripheral Pulse Rate: 83 bpm Respiratory Rate: 18 br/min Systolic Blood Pressure: 153 mmHg Diastolic Blood Pressure: 101 mmHg SpO2: 97 % Oxygen Therapy: Room air Measurements This Visit Height/Length Dosin.000 cm Height/Length Estimated: 178.000 cm Weight Dosin.910 kg Weight Estimated: 83.910 kg Problems List: Problem Onset Comments No Problems found Patient Education Skin Tear Care A skin tear is a wound in which the top layers of skin have peeled off the deeper skin or tissues underneath them. This is a common problem as people get older because the skin becomes thinner and more fragile. In addition, some medicines, such as oral corticosteroids, can lead to skin thinning if they are taken for long periods of time. A skin tear is often repaired with tape or skin adhesive strips. Depending on the location of the wound, a bandage (dressing) may be applied over the tape or skin adhesive strips. Follow these instructions at home: Wound care ? Clean the wound as told by your health care provider. You may be instructed to keep the wound dry for the first few days. If you are told to clean the wound: ? Wash the wound with mild soap and water or a salt?water (saline) solution. ? Rinse the wound with water to remove all soap. ? Do not rub the wound dry. Let the wound air dry. ? Change any dressings as told by your health care provider. This includes changing the dressing if it gets wet, gets dirty, or starts to smell bad. ? Do not scratch or pick at the wound. ? Protect the injured area until it has healed. ? Check your wound every day for signs of infection. Check for: ? More redness, swelling, or pain. ? More fluid or blood. ? Warmth. ? Pus or a bad smell. Medicines ? Take xdah-txz-[id number] and prescription medicines only as told by your health care provider. ? If you were prescribed an antibiotic medicine, take or apply it as told by your health care provider. Do not stop using the antibiotic even if your condition improves. General instructions ? Keep the dressing dry as told by your health care provider. ? Do not take baths, swim, or do anything that puts your wound underwater until your health care provider approves. ? Keep all follow-up visits as told by your health care provider. This is important. Contact a health care provider if: ? You have more redness, swelling, or pain around your wound. ? You have more fluid or blood coming from your wound. ? Your wound feels warm to the touch. ? You have pus or a bad smell coming from your wound. Get help right away if: ? You have a red streak that goes away from the skin tear. ? You have a fever and chills and your symptoms suddenly get worse. This information is not intended to replace advice given to you by your health care provider. Make sure you discuss any questions you have with your health care provider. Document Released: 04/25/2002 Document Revised: 03/26/2017 Document Reviewed: 06/20/2016 [employer] Patient Education ? 2019 [employer] Stitches, [place], or Adhesive Wound Closure Health care providers use stitches (sutures), gena, and certain glue (skin adhesives) to hold skin together while it heals (wound closure). You may need this treatment after you have surgery or if you cut your skin accidentally. These methods help your skin to heal more quickly and make it less likely that you will have a scar. A wound may take several months to heal completely. The type of wound you have determines when your wound gets closed. In most cases, the wound is closed as soon as possible (primary skin closure). Sometimes, closure is delayed so the wound can be cleaned and allowed to heal naturally. This reduces the chance of infection. Delayed closure may be needed if your wound: ? Is caused by a bite. ? Happened more than 6 hours ago. ? Involves loss of skin or the tissues under the skin. ? Has dirt or debris in it that cannot be removed. ? Is infected. What are the different kinds of wound closures? There are many options for wound closure. The one that your health care provider uses depends on how deep and how large your wound is. Adhesive Glue To use this type of glue to close a wound, your health care provider holds the edges of the wound together and paints the glue on the surface of your skin. You may need more than one layer of glue. Then the wound may be covered with a light bandage (dressing). This type of skin closure may be used for small wounds that are not deep (superficial). Using glue for wound closure is less painful than other methods. It does not require a medicine that numbs the area (local anesthetic). This method also leaves nothing to be removed. Adhesive glue is often used for children and on facial wounds. Adhesive glue cannot be used for wounds that are deep, uneven, or bleeding. It is not used inside of a wound. Adhesive Strips These strips are made of sticky (adhesive), porous paper. They are applied across your skin edges like a regular adhesive bandage. You leave them on until they fall off. Adhesive strips may be used to close very superficial wounds. They may also be used along with sutures to improve the closure of your skin edges. Sutures Sutures are the oldest method of wound closure. Sutures can be made from natural substances, such as silk, or from synthetic materials, such as nylon and steel. They can be made from a material that your body can break down as your wound heals (absorbable), or they can be made from a material that needs to be removed from your skin (nonabsorbable). They come in many different strengths and sizes. Your health care provider attaches the sutures to a steel needle on one end. Sutures can be passed through your skin, or through the tissues beneath your skin. Then they are tied and cut. Your skin edges may be closed in one continuous stitch or in separate stitches. Sutures are strong and can be used for all kinds of wounds. Absorbable sutures may be used to close tissues under the skin. The disadvantage of sutures is that they may cause skin reactions that lead to infection. Nonabsorbable sutures need to be removed. [place] When surgical gena are used to close a wound, the edges of your skin on both sides of the wound are brought close together. A staple is placed across the wound, and an instrument secures the edges together. Gena are often used to close surgical cuts (incisions). Gena are faster to use than sutures, and they cause less skin reaction. Gena need to be removed using a tool that bends the gena away from your skin. How do I care for my wound closure? ? Take medicines only as directed by your health care provider. ? If you were prescribed an antibiotic medicine for your wound, finish it all even if you start to feel better. ? Use ointments or creams only as directed by your health care provider. ? Wash your hands with soap and water before and after touching your wound. ? Do not soak your wound in water. Do not take baths, swim, or use a hot tub until your health care provider approves. ? Ask your health care provider when you can start showering. Cover your wound if directed by your health care provider. ? Do not take out your own sutures or gena. ? Do not pick at your wound. Picking can cause an infection. ? Keep all follow-up visits as directed by your health care provider. This is important. How long will I have my wound closure? ? Leave adhesive glue on your skin until the glue peels away. ? Leave adhesive strips on your skin until the strips fall off. ? Absorbable sutures will dissolve within several days. ? Nonabsorbable sutures and gena must be removed. The location of the wound will determine how long they stay in. This can range from several days to a couple of weeks. When should I seek help for my wound closure? Contact your health care provider if: ? You have a fever. ? You have chills. ? You have drainage, redness, swelling, or pain at your wound. ? There is a bad smell coming from your wound. ? The skin edges of your wound start to separate after your sutures have been removed. ? Your wound becomes thick, raised, and darker in color after your sutures come out (scarring). This information is not intended to replace advice given to you by your health care provider. Make sure you discuss any questions you have with your health care provider. Document Released: 04/25/2002 Document Revised: 03/29/2017 Document Reviewed: 01/07/2015 [employer] Patient Education ? 2018 [employer] Laceration Care, Adult A laceration is a cut that goes through all of the layers of the skin and into the tissue that is right under the skin. Some lacerations heal on their own. Others need to be closed with stitches (sutures), gena, skin adhesive strips, or skin glue. Proper laceration care minimizes the risk of infection and helps the laceration to heal better. How is this treated? If sutures or gena were used: ? Keep the wound clean and dry. ? If you were given a bandage (dressing), you should change it at least one time per day or as told by your health care provider. You should also change it if it becomes wet or dirty. ? Keep the wound completely dry for the first 24 hours or as told by your health care provider. After that time, you may shower or bathe. However, make sure that the wound is not soaked in water until after the sutures or gena have been removed. ? Clean the wound one time each day or as told by your health care provider: ? Wash the wound with soap and water. ? Rinse the wound with water to remove all soap. ? Pat the wound dry with a clean towel. Do not rub the wound. ? After cleaning the wound, apply a thin layer of antibiotic ointment?as told by your health care provider. This will help to prevent infection and keep the dressing from sticking to the wound. ? Have the sutures or gena removed as told by your health care provider. If skin adhesive strips were used: ? Keep the wound clean and dry. ? If you were given a bandage (dressing), you should change it at least one time per day or as told by your health care provider. You should also change it if it becomes dirty or wet. ? Do not get the skin adhesive strips wet. You may shower or bathe, but be careful to keep the wound dry. ? If the wound gets wet, pat it dry with a clean towel. Do not rub the wound. ? Skin adhesive strips fall off on their own. You may trim the strips as the wound heals. Do not remove skin adhesive strips that are still stuck to the wound. They will fall off in time. If skin glue was used: ? Try to keep the wound dry, but you may briefly wet it in the shower or bath. Do not soak the wound in water, such as by swimming. ? After you have showered or bathed, gently pat the wound dry with a clean towel. Do not rub the wound. ? Do not do any activities that will make you sweat heavily until the skin glue has fallen off on its own. ? Do not apply liquid, cream, or ointment medicine to the wound while the skin glue is in place. Using those may loosen the film before the wound has healed. ? If you were given a bandage (dressing), you should change it at least one time per day or as told by your health care provider. You should also change it if it becomes dirty or wet. ? If a dressing is placed over the wound, be careful not to apply tape directly over the skin glue. Doing that may cause the glue to be pulled off before the wound has healed. ? Do not pick at the glue. The skin glue usually remains in place for 5?10 days, then it falls off of the skin. General Instructions ? Take ajrq-nmi-uxdqgpm and prescription medicines only as told by your health care provider. ? If you were prescribed an antibiotic medicine or ointment, take or apply it as told by your doctor. Do not stop using it even if your condition improves. ? To help prevent scarring, make sure to cover your wound with sunscreen whenever you are outside after stitches are removed, after adhesive strips are removed, or when glue remains in place and the wound is healed. Make sure to wear a sunscreen of at least 30 SPF. ? Do not scratch or pick at the wound. ? Keep all follow-up visits as told by your health care provider. This is important. ? Check your wound every day for signs of infection. Watch for: ? Redness, swelling, or pain. ? Fluid, blood, or pus. ? Raise (elevate) the injured area above the level of your heart while you are sitting or lying down, if possible. Contact a health care provider if: ? You received a tetanus shot and you have swelling, severe pain, redness, or bleeding at the injection site. ? You have a fever. ? A wound that was closed breaks open. ? You notice a bad smell coming from your wound or your dressing. ? You notice something coming out of the wound, such as wood or glass. ? Your pain is not controlled with medicine. ? You have increased redness, swelling, or pain at the site of your wound. ? You have fluid, blood, or pus coming from your wound. ? You notice a change in the color of your skin near your wound. ? You need to change the dressing frequently due to fluid, blood, or pus draining from the wound. ? You develop a new rash. ? You develop numbness around the wound. Get help right away if: ? You develop severe swelling around the wound. ? Your pain suddenly increases and is severe. ? You develop painful lumps near the wound or on skin that is anywhere on your body. ? You have a red streak going away from your wound. ? The wound is on your hand or foot and you cannot properly move a finger or toe. ? The wound is on your hand or foot and you notice that your fingers or toes look pale or bluish. This information is not intended to replace advice given to you by your health care provider. Make sure you discuss any questions you have with your health care provider. Document Released: 07/31/2006 Document Revised: 12/30/2016 Document Reviewed: 07/27/2015 [employer] Patient Education ? 2019 [employer]. Viruses or Bacteria What?s got you sick? Antibiotics only treat bacterial infections. Viral illnesses cannot be treated with antibiotics. When an antibiotic is not prescribed, ask your healthcare professional for tips on how to relieve symptoms and feel better. Usual Cause Illness Viruses Bacteria Antibiotic Needed Cold/Runny Nose NO Bronchitis/Chest Cold (in otherwise healthy children and adults) NO Whooping Cough Yes Flu NO Strep Throat Yes Sore Throat (except strep) NO Fluid in the middle ear (otitis media with effusion) NO Urinary Tract Infection Yes Antibiotics Aren?t Always the Answer www.cdc.gov/getsmart GET SMART Know When Antibiotics Work [place].S. Department of Health and Human Services Centers for Disease Control and Prevention April 2014 Normal [facility] PROTHROMBIN TIMEon 9 INR Coag (PPP) [Relative time] 0.92 {INR} Normal 0.91-1.16 [facility] Comment on above: Order Comment: No: D o not add to previous draw Result Comment: ACCC P RECOMMENDED INR FOR WARFARIN THERAPY ------- ------- CONDITION INR PROPHYLAXIS OF VENOUS THROMBOSIS 2-3 (HIGH-RISK SURGERY) TREATMENT OF VENOUS THROMBOSIS 2-3 TREATMENT OF PULMONARY EMBOLISM 2-3 PREVENTION OF SYSTEMIC EMBOLISM: 2-3 ACUTE MYOCARDIAL INFARCTION TISSUE HEART VALVES VALVULAR HEART DISEASE ATRIAL FIBRILLATION RECURRENT SYSTEMIC EMBOLISM MECHANICAL HEART VALVE 2.5-3.5 FROM: ORAL ANTICOAGULANTS. MECHANISM OF ACTION, CLINICAL EFFECTIVENESS, AND OPTIMAL THERAPEUTIC RANGE. CHEST 1995;108:231S-246S. Performed By: #### [id number] #### [facility] [address] [place] [address], [facility] PT Coag (PPP) [Time] 12.3 s Normal 12.3-14.8 [facility] Comment on above: Order Comment: No: D o not add to previous draw Result Comment: ALL RESULTS MUST BE INTERPRETED WITH RESPECT TO BLOOD DRAWING ARTIFACT OR DILUTION ERROR OF ANTICOAGULANT AT THE TIME OF SAMPLING. Performed By: #### [id number] #### [facility] [address] [place] [address], [facility] TYPE AND SCREENon 05-07-2019 ABO INTERPRETATION A Normal [facility] Comment on above: Performed By: #### [id number] #### [facility] [address] [place] [address], [facility] RH INTERPRETATION Positive Normal [facility] Comment on above: Performed By: #### [id number] #### [facility] [address] [place] [address], [facility] Transfer Noteon 05-07-2019 Transfer Note [id number] Normal [facility] Transfer Note 1802 - [facility] 1810 - [facility] departed to [facility] ER copy of the patient's chart and xray disc were sent; the home medication list has been documented in the chart as well [Electronically Signed on: 05/07/2019 18:30 EDT] Rupal Perez [Verified on: 05/07/2019 18:30 EDT] Rupal Perez [facility] XR Forearm 2 Views Lefton XR Forearm 2 Views Left EXAM: XR Forearm 2 Views Left. HISTORY: Laceration proximal forearm laceration, rule out foreign body. COMPARISON: None. TECHNIQUE: AP and lateral views of the left forearm were obtained. FINDINGS: No definite acute fracture or dislocation is seen. There is ovoid lucency with mild surrounding sclerosis about the expected location of the triquetrum measuring 0.9 x 0.8 cm, likely representing benign cortical defect or other benign cystic process. There is mild spurring about the olecranon process of the proximal ulna. Anterior fat pad of the elbow appears grossly unremarkable, no obvious posterior fat pad is seen. Mild to moderate generalized soft tissue swelling with moderate amount of soft tissue air throughout the forearm extending to the wrist as well as the visualized distal portion of the upper arm. More focal somewhat linear lucency about the proximal forearm laterally likely related to area of laceration injury. No obvious opaque foreign body. IMPRESSION: Left forearm study fails to demonstrate definite acute fracture or dislocation. Likely benign process in the expected location of the triquetrum as noted. Generalized soft tissue swelling. Moderate soft tissue air throughout the forearm extending to the wrist as well as the visualized distal portion of the upper arm. No obvious opaque foreign body. Follow up as needed. Final Dictated by: Klever Nix MD Dictated DT/TM: 05/07/19 2:35 Signed (Electronic Signature): Klever Nix MD 05/07/19 4:40 pm Technologist: JOSE [facility] No Panel Information [facility] Vital Signs Date Time Vital Sign Value Performing Clinician Facility 12-24-2024 09:43-0400 Body height 172.7 cm Armando Richards MD Work Phone: [facility] 12-24-2024 09:43-0400 Body mass index (BMI) [Ratio] 26.76 kg/m2 Armando Richards MD Work Phone: [facility] 12-24-2024 09:43-0400 Body weight 79.83 kg Armando Richards MD Work Phone: [facility] 12-24-2024 09:43-0400 Diastolic blood pressure 72 mm[Hg] Armando Richards MD Work Phone: [facility] 12-24-2024 09:43-0400 Heart rate 90 /min Armando Richards MD Work Phone: [facility] 12-24-2024 09:43-0400 Systolic blood pressure 123 mm[Hg] Armando Richards MD Work Phone: [facility] 12-04-2024 12:28-0400 Body height 172.7 cm Pacc 1 Other Phone: [facility] 12-04-2024 12:28-0400 Body mass index (BMI) [Ratio] 26.15 kg/m2 Pacc 1 Other Phone: [facility] 12-04-2024 12:28-0400 Body temperature 97.81 [degF] Pacc 1 Other Phone: [facility] 12-04-2024 12:28-0400 Body weight 78 kg Pacc 1 Other Phone: [facility] 12-04-2024 12:28-0400 Diastolic blood pressure 68 mm[Hg] Pacc 1 Other Phone: [facility] 12-04-2024 12:28-0400 Heart rate 76 /min Pacc 1 Other Phone: [facility] 12-04-2024 12:28-0400 Respiratory rate 18 /min Pacc 1 Other Phone: [facility] 12-04-2024 12:28-0400 SaO2% (BldA) [Mass fraction] 100 % Pacc 1 Other Phone: [facility] 12-04-2024 12:28-0400 Systolic blood pressure 117 mm[Hg] Pacc 1 Other Phone: [facility] 12-02-2024 10:54-0400 Body mass index (BMI) [Ratio] 26.65 kg/m2 Adriana Lopez DO [facility] 12-02-2024 10:54-0400 Body weight 78.93 kg Adriana Lopez DO Work Phone: [facility] [employer] 12-02-2024 10:54-0400 Diastolic blood pressure 71 mm[Hg] [facility] 12-02-2024 10:54-0400 Heart rate 76 /min Adriana Lopez DO [facility] 12-02-2024 10:54-0400 Systolic blood pressure 118 mm[Hg] Adriana Lopez DO [facility] 11-29-2024 09:42-0400 Body mass index (BMI) [Ratio] 27.08 kg/m2 Armando Richards MD Work Phone: [employer] 11-29-2024 09:42-0400 Body weight 80.2 kg Armando Richards MD Work Phone: [facility] [employer] [facility] 11-29-2024 09:42-0400 Diastolic blood pressure 61 mm[Hg] Armando Richards MD Work Phone: [facility] [employer] [facility] 11-29-2024 09:42-0400 Heart rate 84 /min Armando Richards MD Work Phone: [facility] [facility] 11-29-2024 09:42-0400 Systolic blood pressure 101 mm[Hg] Armando Richards MD Work Phone: [facility] [employer] [facility] 11-01-2024 14:38-0400 Body height 172.1 cm Armando Richards MD Work Phone: [facility] [facility] 11-01-2024 14:38-0400 Body mass index (BMI) [Ratio] 26.59 kg/m2 Armando Richards MD Work Phone: [facility] [employer] [facility] 11-01-2024 14:38-0400 Body temperature 97.7 [degF] Armando Richards MD Work Phone: [facility] [facility] 11-01-2024 14:38-0400 Body weight 78.74 kg Armando Richards MD Work Phone: [facility] [employer] [facility] 11-01-2024 14:38-0400 Diastolic blood pressure 72 mm[Hg] Armando Richards MD Work Phone: [facility] [facility] 11-01-2024 14:38-0400 Heart rate 81 /min Armando Richards MD Work Phone: [facility] [facility] 11-01-2024 14:38-0400 Systolic blood pressure 117 mm[Hg] Armando Richards MD Work Phone: [facility] [employer] [facility] 10-24-2024 13:03-0400 Body height 180.3 cm Manan GALVEZM Work Phone: [facility] 10-24-2024 13:03-0400 Body mass index (BMI) [Ratio] 23.71 kg/m2 Manan Brown DPM Work Phone: [facility] 10-24-2024 13:03-0400 Body weight 77.11 kg Manan Baker DPM Work Phone: [facility] 10-24-2024 13:03-0400 Respiratory rate 18 /min Manan Baker DPM Work Phone: [facility] 10-16-2024 11:20-0500 Blood Pressure Location [facility] 10-16-2024 11:20-0500 Diastolic blood pressure 58 mm[Hg] [facility] 10-16-2024 11:20-0500 Heart rate 1 /min [facility] 10-16-2024 11:20-0500 Respiratory rate 18 /min [facility] 10-16-2024 11:20-0500 Systolic blood pressure 90 mm[Hg] [facility] 08-15-2024 13:11-0500 Body height 180.3 cm Manan Baker DPM Work Phone: [facility] 08-15-2024 13:11-0500 Body mass index (BMI) [Ratio] 23.71 kg/m2 Manan Baker DPM Work Phone: [facility] 08-15-2024 13:11-0500 Body weight 77.11 kg Manan Baker DPM Work Phone: [facility] 08-15-2024 13:11-0500 Respiratory rate 18 /min Manan Baker DPM Work Phone: [facility] 07-23-2024 14:42-0500 Diastolic blood pressure 53 mm[Hg] Armando Richards MD Work Phone: [facility] 07-23-2024 14:42-0500 Heart rate 85 /min Armando Richards MD Work Phone: [facility] 07-23-2024 14:42-0500 Systolic blood pressure 83 mm[Hg] Armando Richards MD Work Phone: [facility] 07-22-2024 13:20-0500 Body height 172.7 cm Pacc 3 Work Phone: [facility] 07-22-2024 13:20-0500 Body mass index (BMI) [Ratio] 25.36 kg/m2 Pacc 3 Work Phone: [facility] 07-22-2024 13:20-0500 Body temperature 97.7 [degF] Pacc 3 Work Phone: [facility] 07-22-2024 13:20-0500 Body weight 75.66 kg Pacc 3 Work Phone: [facility] 07-22-2024 13:20-0500 Diastolic blood pressure 59 mm[Hg] Pacc 3 Work Phone: [facility] 07-22-2024 13:20-0500 Heart rate 81 /min Pacc 3 Work Phone: [facility] 07-22-2024 13:20-0500 SaO2% (BldA) [Mass fraction] 96 % Pacc 3 Work Phone: [facility] 07-22-2024 13:20-0500 Systolic blood pressure 92 mm[Hg] Pacc 3 Work Phone: [facility] 06-06-2024 14:35-0400 Body height 180.3 cm Manan Baker DPM Work Phone: [facility] 06-06-2024 14:35-0400 Body mass index (BMI) [Ratio] 23.71 kg/m2 Manan GALVEZM Work Phone: [facility] 06-06-2024 14:35-0400 Body weight 77.11 kg Manan Baker DPM Work Phone: [facility] 06-06-2024 14:35-0400 Diastolic blood pressure 79 mm[Hg] Manan Baker DPM Work Phone: [facility] 06-06-2024 14:35-0400 Heart rate 81 /min Manan Baker DPM Work Phone: [facility] 06-06-2024 14:35-0400 Systolic blood pressure 128 mm[Hg] Manan Baker DPM Work Phone: [facility] 05-29-2024 09:09-0400 Body height 172.1 cm Armando Richards MD Work Phone: [facility] 05-29-2024 09:09-0400 Body mass index (BMI) [Ratio] 25.49 kg/m2 Armando Richards MD Work Phone: [facility] 05-29-2024 09:09-0400 Body weight 75.48 kg Armando Richards MD Work Phone: [facility] 05-29-2024 09:09-0400 Diastolic blood pressure 64 mm[Hg] Armando Richards MD Work Phone: [facility] 05-29-2024 09:09-0400 Heart rate 75 /min Armando Richards MD Work Phone: [facility] 05-29-2024 09:09-0400 Systolic blood pressure 110 mm[Hg] Armando Richards MD Work Phone: [facility] 05-28-2024 09:14-0400 Body mass index (BMI) [Ratio] 26 kg/m2 Julio Quispe MD Work Phone: [facility] 05-28-2024 09:14-0400 Body weight 75.3 kg Julio Quispe MD Work Phone: [facility] 05-28-2024 09:14-0400 Diastolic blood pressure 68 mm[Hg] Julio Quispe MD Work Phone: [facility] 05-28-2024 09:14-0400 Heart rate 54 /min Julio Quispe MD Work Phone: [facility] 05-28-2024 09:14-0400 SaO2% (BldA) [Mass fraction] 97 % Julio Quispe MD Work Phone: [facility] 05-28-2024 09:14-0400 Systolic blood pressure 106 mm[Hg] Julio Quispe MD Work Phone: [facility] 04-25-2024 09:16-0400 Body mass index (BMI) [Ratio] 26 kg/m2 Jocelyn Hatfield MD Work Phone: [facility] 04-25-2024 09:16-0400 Body weight 75.3 kg Jocelyn Hatfield MD Work Phone: [facility] 04-25-2024 09:16-0400 Diastolic blood pressure 55 mm[Hg] Jocelyn Hatfield MD Work Phone: [facility] 04-25-2024 09:16-0400 Heart rate 73 /min Jocelyn Hatfield MD Work Phone: [facility] 04-25-2024 09:16-0400 Systolic blood pressure 101 mm[Hg] Jocelyn Hatfield MD Work Phone: [facility] 03-25-2024 19:20-0400 Diastolic blood pressure 79 mm[Hg] Armando Richards MD Work Phone: [facility] 03-25-2024 19:20-0400 Heart rate 86 /min Armando Richards MD Work Phone: [facility] 03-25-2024 19:20-0400 SaO2% (BldA) [Mass fraction] 98 % Armando Richards MD Work Phone: [facility] 03-25-2024 19:20-0400 Systolic blood pressure 112 mm[Hg] Armando Richards MD Work Phone: [facility] [employer] [facility] 03-25-2024 19:15-0400 Body temperature 97.5 [degF] Armando Richadrs MD Work Phone: [facility] [employer] [facility] 03-25-2024 19:15-0400 Respiratory rate 18 /min Armando Richards MD Work Phone: [facility] 02-21-2024 10:51-0400 Body mass index (BMI) [Ratio] 26.94 kg/m2 Armando Richards MD Work Phone: [facility] [employer] [facility] 02-21-2024 10:51-0400 Body weight 78.02 kg Armando Richards MD Work Phone: [facility] [employer] [facility] 02-21-2024 10:51-0400 Diastolic blood pressure 81 mm[Hg] Armando Richards MD Work Phone: [facility] 02-21-2024 10:51-0400 Heart rate 133 /min Armando Richards MD Work Phone: [facility] [employer] [facility] 02-21-2024 10:51-0400 Systolic blood pressure 123 mm[Hg] Armando Richards MD Work Phone: [facility] 12-26-2023 08:46-0400 Blood Pressure Location Beatrice Orzech [facility] 12-26-2023 08:46-0400 Diastolic blood pressure 81 mm[Hg] Beatrice Orzech [facility] 12-26-2023 08:46-0400 Heart rate 82 /min Beatrice Orzech [facility] 12-26-2023 08:46-0400 Respiratory rate 16 /min Beatrice Orzech [facility] 12-26-2023 08:46-0400 Systolic blood pressure 133 mm[Hg] Beatrice Mireles [facility] 11-27-2023 10:11-0400 Body mass index (BMI) [Ratio] 27.14 kg/m2 Armando Richards MD Work Phone: [facility] [employer] [facility] 11-27-2023 10:11-0400 Body weight 78.02 kg Armando Richards MD Work Phone: [facility] 11-27-2023 10:11-0400 Diastolic blood pressure 80 mm[Hg] Armando Richards MD Work Phone: [facility] 11-27-2023 10:11-0400 Heart rate 118 /min Armando Richards MD Work Phone: [facility] 11-27-2023 10:11-0400 Systolic blood pressure 114 mm[Hg] Armando Richards MD Work Phone: [facility] 11-17-2023 11:03-0400 Body height 172.7 cm Hung Jacobsen MD Work Phone: [facility] 11-17-2023 11:03-0400 Body weight 80.29 kg Hung Jacobsen MD Work Phone: [facility] 10-04-2023 09:55-0500 Blood Pressure Location Olu Lue [facility] 10-04-2023 09:55-0500 Diastolic blood pressure 88 mm[Hg] Olu Lue [facility] 10-04-2023 09:55-0500 Systolic blood pressure 132 mm[Hg] Olu Lue [facility] 09-19-2023 13:26-0500 Body mass index (BMI) [Ratio] 26.98 kg/m2 Armando Richards MD [facility] 09-19-2023 13:26-0500 Body weight 77.56 kg Armando Richards MD Work [facility]: [facility] 09-19-2023 13:26-0500 Diastolic blood pressure 89 mm[Hg] Armando Richards MD Work Phone: [facility] 09-19-2023 13:26-0500 Heart rate 96 /min Armando Richards MD Work Phone: [facility] 09-19-2023 13:26-0500 Systolic blood pressure 134 mm[Hg] Armando Richards MD Work Phone: [facility] 07-31-2023 10:56-0500 Body height 172.7 cm Pacc 1 Other Phone: [facility] 07-31-2023 10:56-0500 Body temperature 98.6 [degF] Pacc 1 Other Phone: [facility] 07-31-2023 10:56-0500 Body weight 81.19 kg Pacc 1 Other Phone: [facility] 07-31-2023 10:56-0500 Diastolic blood pressure 96 mm[Hg] Pacc 1 Other Phone: [facility] 07-31-2023 10:56-0500 Heart rate 97 /min Pacc 1 Other Phone: [facility] 07-31-2023 10:56-0500 Respiratory rate 20 /min Pacc 1 Other Phone: [facility] 07-31-2023 10:56-0500 SaO2% (BldA) [Mass fraction] 100 % Pacc 1 Other Phone: [facility] 07-31-2023 10:56-0500 Systolic blood pressure 144 mm[Hg] Pacc 1 Other Phone: [facility] 05-04-2023 13:27-0400 Diastolic blood pressure 88 mm[Hg] MD Armando Richards Work Phone: [facility] 05-04-2023 13:27-0400 Heart rate 77 /min MD Armando Richards Work Phone: [facility] 05-04-2023 13:27-0400 Respiratory rate 16 /min MD Armando Richards Work Phone: [facility] 05-04-2023 13:27-0400 SaO2% (BldA) [Mass fraction] 91 % MD Armando Richards Work Phone: [facility] 05-04-2023 13:27-0400 Systolic blood pressure 140 mm[Hg] MD Armando Richards Work Phone: [facility] 05-04-2023 11:52-0400 Body height 172.72 cm MD Armando Richards Work Phone: [facility] 05-04-2023 11:52-0400 Body temperature 98.5 [degF] MD Armando Richards Work Phone: [facility] 05-04-2023 11:52-0400 Body weight 79.37 kg MD Armando Richards Work Phone: [facility] 05-03-2023 10:31-0400 Blood Pressure Location [facility] 05-03-2023 10:31-0400 Body temperature 98.42 [degF] Olu Lue [facility] 05-03-2023 10:31-0400 Diastolic blood pressure 78 mm[Hg] Olu Lue [facility] 05-03-2023 10:31-0400 Heart rate 84 /min Olu Lue [facility] 05-03-2023 10:31-0400 Systolic blood pressure 122 mm[Hg] Olu Lue [facility] 02-02-2023 09:35-0400 Diastolic blood pressure 91 mm[Hg] MD Armando Richards Work Phone: [facility] 02-02-2023 09:35-0400 Heart rate 77 /min MD Armando Richards Work Phone: [facility] 02-02-2023 09:35-0400 Respiratory rate 16 /min MD Armando Richards Work Phone: [facility] 02-02-2023 09:35-0400 SaO2% (BldA) [Mass fraction] 97 % MD Armando Richards Work Phone: [facility] 02-02-2023 09:35-0400 Systolic blood pressure 146 mm[Hg] MD Armando Richards Work Phone: [facility] 02-02-2023 07:09-0400 Body height 172.72 cm MD Amrando Richards Work Phone: [facility] 02-02-2023 07:09-0400 Body temperature 97.7 [degF] MD Armando Richards Work Phone: [facility] 02-02-2023 07:09-0400 Body weight 79.37 kg MD Armando Richards Work Phone: [facility] 01-18-2023 09:15-0400 Blood Pressure Location Olu Lue [facility] 01-18-2023 09:15-0400 Diastolic blood pressure 72 mm[Hg] Olu Lue [facility] 01-18-2023 09:15-0400 Heart rate 68 /min Olu Lue [facility] 01-18-2023 09:15-0400 Respiratory rate 16 /min Olu Lue [facility] 01-18-2023 09:15-0400 Systolic blood pressure 134 mm[Hg] Olu Lue [facility] 11-28-2022 10:00-0400 Body height 172.72 cm [employer] Goode Other [employer] Other 11-28-2022 10:00-0400 Diastolic blood pressure 80 mm[Hg] Valdochris Goode Other [employer] Other 11-28-2022 10:00-0400 SaO2% (BldA) [Mass fraction] 93 % Valdochris Goode Other [employer] Other 11-28-2022 10:00-0400 Systolic blood pressure 130 mm[Hg] Valdochris Goode Other [employer] Other 11-14-2022 11:00-0400 Body height 172.72 cm Valdochris Goode Other [employer] Other 11-14-2022 11:00-0400 Body mass index (BMI) [Ratio] 28.58 kg/m2 Valdochris Goode Other [employer] Other 11-14-2022 11:00-0400 Body weight 85.28 kg Valdochris Goode Other [employer] Other 11-14-2022 11:00-0400 Diastolic blood pressure 80 mm[Hg] Valdochris Goode Other [employer] Other 11-14-2022 11:00-0400 SaO2% (BldA) [Mass fraction] 97 % Valdo Rupa Other [employer] [facility] [employer] Other 11-14-2022 11:00-0400 Systolic blood pressure 140 mm[Hg] Valdo Rupa Other [facility] [employer] Other 11-07-2022 11:25-0400 Diastolic blood pressure 78 mm[Hg] MD Armando Richards Work Phone: [facility] 11-07-2022 11:25-0400 Heart rate 74 /min MD Armando Richards Work Phone: [facility] 11-07-2022 11:25-0400 Respiratory rate 20 /min MD Armando Richards Work Phone: [facility] 11-07-2022 11:25-0400 SaO2% (BldA) [Mass fraction] 96 % MD Armando Richards Work Phone: [facility] 11-07-2022 11:25-0400 Systolic blood pressure 132 mm[Hg] MD Armando Richards Work Phone: [facility] 11-07-2022 09:55-0400 Body height 175.26 cm MD Armando Richards Work Phone: [facility] 11-07-2022 09:55-0400 Body temperature 97.7 [degF] MD Armando Richards Work Phone: [facility] 11-07-2022 09:55-0400 Body weight 81.19 kg MD Armando Richards Work Phone: [facility] 09-13-2022 12:15-0500 Body height 172.72 cm Valdo Goode Other [employer] [facility] [employer] Other 09-13-2022 12:15-0500 Diastolic blood pressure 60 mm[Hg] Valdo Goode Other [employer] Other 09-13-2022 12:15-0500 SaO2% (BldA) [Mass fraction] 97 % Valdo Goode Other [employer] Other 09-13-2022 12:15-0500 Systolic blood pressure 120 mm[Hg] Valdo Goode Other [employer] Other 09-02-2022 11:45-0500 Body height 172.72 cm Valdo Goode Other [employer] Other 09-02-2022 11:45-0500 Body mass index (BMI) [Ratio] 27.55 kg/m2 Valdo Goode Other [employer] Other 09-02-2022 11:45-0500 Body weight 82.19 kg Valdo Goode Other [employer] Other 09-02-2022 11:45-0500 Diastolic blood pressure 78 mm[Hg] Valdo Goode Other [employer] Other 09-02-2022 11:45-0500 SaO2% (BldA) [Mass fraction] 94 % Valdo Goode Other [employer] Other 09-02-2022 11:45-0500 Systolic blood pressure 124 mm[Hg] Valdo Goode Other [employer] Other 08-10-2022 11:45-0500 Body height 172.72 cm Temi Dean Other [employer] Other 08-10-2022 11:45-0500 Diastolic blood pressure 76 mm[Hg] Temi Dean Other [employer] Other 08-10-2022 11:45-0500 Respiratory rate 18 /min Temi Dean Other [employer] Other 08-10-2022 11:45-0500 SaO2% (BldA) [Mass fraction] 96 % Temi Dean Other [employer] Other 08-10-2022 11:45-0500 Systolic blood pressure 134 mm[Hg] Temi Dean Other [employer] Other 07-12-2022 16:45-0500 Body height 172.72 cm Temi Dean Other [employer] Other 07-12-2022 16:45-0500 Diastolic blood pressure 84 mm[Hg] Temi Dean Other [employer] Other 07-12-2022 16:45-0500 Respiratory rate 18 /min Temi Dean Other [employer] Other 07-12-2022 16:45-0500 SaO2% (BldA) [Mass fraction] 97 % Temi Dean Other [employer] Other 07-12-2022 16:45-0500 Systolic blood pressure 148 mm[Hg] Temi Dean Other [employer] Other 07-06-2022 11:40-0500 Blood Pressure Location Olu Lue [facility] 07-06-2022 11:40-0500 Diastolic blood pressure 80 mm[Hg] Olu Lue [facility] 07-06-2022 11:40-0500 Heart rate 70 /min Olu Lue [facility] 07-06-2022 11:40-0500 Respiratory rate 16 /min Olu Lue [facility] 07-06-2022 11:40-0500 Systolic blood pressure 132 mm[Hg] Olu Lue [facility] 06-15-2022 14:00-0400 Body height 172.72 cm Valdo Goode Other [employer] Other 06-15-2022 14:00-0400 Body mass index (BMI) [Ratio] 26.09 kg/m2 Valdo Goode Other [employer] Other 06-15-2022 14:00-0400 Body weight 77.84 kg Valdo Goode Other [employer] Other 06-15-2022 14:00-0400 Diastolic blood pressure 80 mm[Hg] Valdo Goode Other [employer] Other 06-15-2022 14:00-0400 SaO2% (BldA) [Mass fraction] 97 % Valdo Goode Other [employer] Other 06-15-2022 14:00-0400 Systolic blood pressure 140 mm[Hg] Valdo Goode Other [employer] Other 05-10-2022 12:45-0400 Body height 172.72 cm Valdo Goode Other [employer] Other 05-10-2022 12:45-0400 Body mass index (BMI) [Ratio] 25.88 kg/m2 Valdo Goode Other [employer] Other 05-10-2022 12:45-0400 Body weight 77.2 kg Valdo Goode Other [employer] Other 05-10-2022 12:45-0400 Diastolic blood pressure 70 mm[Hg] Valdo Goode Other [employer] Other 05-10-2022 12:45-0400 SaO2% (BldA) [Mass fraction] 99 % Valdo Goode Other [employer] Other 05-10-2022 12:45-0400 Systolic blood pressure 138 mm[Hg] Valdo Goode Other [facility] [employer] Other 04-27-2022 11:26-0400 Blood Pressure Location Olu L[facility] 04-27-2022 11:26-0400 Diastolic blood pressure 76 mm[Hg] Olu Lue [facility] 04-27-2022 11:26-0400 Heart rate 70 /min Olu Lue [facility] 04-27-2022 11:26-0400 Respiratory rate 16 /min Olu Lue [facility] 04-27-2022 11:26-0400 Systolic blood pressure 109 mm[Hg] Olu Lue [facility] 04-11-2022 10:15-0400 Body height 172.72 cm Valdo Goode Other [employer] Other 04-11-2022 10:15-0400 Body mass index (BMI) [Ratio] 25.63 kg/m2 Valdo Goode Other [employer] Other 04-11-2022 10:15-0400 Body weight 76.48 kg Valdo Goode Other [employer] Other 04-11-2022 10:15-0400 Diastolic blood pressure 70 mm[Hg] Valdo Goode Other [employer] Other 04-11-2022 10:15-0400 SaO2% (BldA) [Mass fraction] 97 % Valdo Goode Other [employer] Other 04-11-2022 10:15-0400 Systolic blood pressure 140 mm[Hg] Valdo Gooed Other [employer] Other 02-09-2022 11:30-0400 Body height 172.72 cm Sharda Brown Other [employer] Other 02-09-2022 11:30-0400 Body mass index (BMI) [Ratio] 24.42 kg/m2 Sharda Brown Other [employer] Other 02-09-2022 11:30-0400 Body weight 72.85 kg Sharda Brown Other [employer] Other 01-31-2022 15:30-0400 Body height 172.72 cm Valdo Goode Other [employer] Other 01-31-2022 15:30-0400 Body mass index (BMI) [Ratio] 24.17 kg/m2 Valdo Goode Other [employer] Other 01-31-2022 15:30-0400 Body weight 72.12 kg Valdo Goode Other [employer] Other 01-31-2022 15:30-0400 Diastolic blood pressure 60 mm[Hg] Valdo Goode Other [employer] Other 01-31-2022 15:30-0400 SaO2% (BldA) [Mass fraction] 98 % Valdo Goode Other [employer] Other 01-31-2022 15:30-0400 Systolic blood pressure 122 mm[Hg] Valdo Goode Other [employer] Other 01-26-2022 15:27-0400 Body height 172.7 cm [facility] [employer] DO Work Phone: [facility] 01-26-2022 15:27-0400 Body weight 76.2 kg [facility] [employer] DO Work Phone: [facility] 12-29-2021 12:15-0400 Body height 172.72 cm Sharda Brown Other [employer] Other 12-29-2021 12:15-0400 Body mass index (BMI) [Ratio] 25.13 kg/m2 Sharda Brown Other [employer] Other 12-29-2021 12:15-0400 Body weight 74.98 kg Sharda Brown Other [employer] Other 12-14-2021 10:45-0400 Body height 172.72 cm Valdo Goode Other [employer] Other 12-14-2021 10:45-0400 Body mass index (BMI) [Ratio] 24.78 kg/m2 Valdo Goode Other [employer] Other 12-14-2021 10:45-0400 Body weight 73.94 kg Valdo Goode Other [employer] Other 12-14-2021 10:45-0400 Diastolic blood pressure 70 mm[Hg] Valdo Goode Other [employer] Other 12-14-2021 10:45-0400 SaO2% (BldA) [Mass fraction] 98 % Valdo Goode Other [employer] Other 12-14-2021 10:45-0400 Systolic blood pressure 122 mm[Hg] Valdo Goode Other [employer] Other 11-25-2021 16:00-0400 Body height 172.72 cm Valdo Goode Other [employer] Other 11-25-2021 16:00-0400 Body mass index (BMI) [Ratio] 25.48 kg/m2 Valdo Goode Other [employer] Other 11-25-2021 16:00-0400 Body weight 76.02 kg Valdo Goode Other [employer] Other 11-25-2021 16:00-0400 Diastolic blood pressure 66 mm[Hg] Valdo Goode Other [employer] Other 11-25-2021 16:00-0400 SaO2% (BldA) [Mass fraction] 97 % Valdo Goode Other [employer] Other 11-25-2021 16:00-0400 Systolic blood pressure 128 mm[Hg] Valdo Goode Other [employer] Other 11-17-2021 11:15-0400 Body height 172.72 cm Sharda Elsалександр Other [employer] Other 11-17-2021 11:15-0400 Body mass index (BMI) [Ratio] 30.1 kg/m2 Sharda Elsалександр Other [employer] Other 11-17-2021 11:15-0400 Body weight 89.81 kg Sharda Elsалександр Other [employer] Other 11-01-2021 16:00-0400 Body height 172.72 cm Sharda Stubbsалександр Other [employer] Other 11-01-2021 16:00-0400 Body mass index (BMI) [Ratio] 30.1 kg/m2 Sharda Stubbsалександр Other [employer] Other 11-01-2021 16:00-0400 Body weight 89.81 kg Sharda Stubbsалександр Other [employer] Other 10-18-2021 03:29-0500 Body temperature 97.3 [degF] MD Armando Richards Work Phone: [facility] 10-18-2021 03:29-0500 Diastolic blood pressure 68 mm[Hg] MD Armando Richards Work Phone: [facility] 10-18-2021 03:29-0500 Heart rate 86 /min MD Armando Richards Work Phone: [facility] 10-18-2021 03:29-0500 Respiratory rate 16 /min MD Armando Richards Work Phone: [facility] 10-18-2021 03:29-0500 SaO2% (BldA) [Mass fraction] 94 % MD Armando Richards Work Phone: [facility] 10-18-2021 03:29-0500 Systolic blood pressure 144 mm[Hg] MD Armando Richards Work Phone: [facility] 10-17-2021 06:00-0500 Body weight 78.5 kg MD Armando Richards Work Phone: [facility] 10-12-2021 13:24-0500 Body height 172.72 cm MD Armando Richards Work Phone: [facility] 09-23-2021 12:19-0500 Inhaled oxygen flow rate 2 L/min MD Armando Richards Work Phone: [facility] 09-20-2021 16:40-0500 Body mass index (BMI) [Ratio] 28.1 kg/m2 MD Armando Richards Work Phone: [facility] 09-20-2021 11:17-0500 Body temperature 98.1 [degF] MD Armando Richards Work Phone: [facility] 09-20-2021 11:17-0500 Diastolic blood pressure 78 mm[Hg] MD Armando Richards Work Phone: [facility] 09-20-2021 11:17-0500 Heart rate 77 /min MD Armando Richards Work Phone: [facility] 09-20-2021 11:17-0500 Respiratory rate 20 /min MD Armando Richards Work Phone: [facility] 09-20-2021 11:17-0500 SaO2% (BldA) [Mass fraction] 97 % MD Armando Richards Work Phone: [facility] 09-20-2021 11:17-0500 Systolic blood pressure 118 mm[Hg] MD Armando Richards Work Phone: [facility] 09-17-2021 09:26-0500 Inhaled oxygen flow rate 1 L/min MD Armando Richards Work Phone: [facility] 09-15-2021 14:38-0500 Body height 173.99 cm MD Armando Richards Work Phone: [facility] 09-14-2021 06:54-0500 Body mass index (BMI) [Ratio] 27.7 kg/m2 MD Armando Richards Work Phone: [facility] 09-14-2021 06:54-0500 Body weight 84 kg MD Armando Richards Work Phone: [facility] 08-26-2021 15:45-0500 Body height 172.72 cm Sharda Brown Other [employer] [facility] [employer] Other 08-26-2021 15:45-0500 Body mass index (BMI) [Ratio] 30.1 kg/m2 Sharda Brown Other [employer] Other 08-26-2021 15:45-0500 Body weight 89.81 kg Sharda Brown Other [employer] Other 07-28-2021 11:15-0500 Body height 172.72 cm Sharda Brown Other [employer] Other 07-28-2021 11:15-0500 Body mass index (BMI) [Ratio] 30.1 kg/m2 Sharda Brown Other [employer] Other 07-28-2021 11:15-0500 Body weight 89.81 kg Sharda Brown Other [facility] [employer] Other Encounters Encounter Date Encounter Type Care Provider Facility Start: 05-21-2025 ambulatory Olu Sosa Facility:[facility] Start: 12-30-2024 End: 12-30-2024 Nursing evaluation of patient and report Boaz White RN Work Phone: Orthopedics Comment on above: Glenohumeral arthrit is, right (Primary Dx) Start: 12-30-2024 End: 12-30-2024 ambulatory [facility] Facility:[facility] Start: 12-30-2024 End: 12-30-2024 Subsequent hospital visit by physician Chel Carrion Work Phone: Radiology Comment on above: Chronic right should er pain [M25.511, G89.29] Start: 12-24-2024 End: 12-24-2024 Office outpatient visit 15 minutes Armando Richards MD Work Phone: [facility] Comment on above: Drug-induced constip ation (Primary Dx) Start: 12-24-2024 End: 12-24-2024 ambulatory DAVID [facility] Start: 12-23-2024 End: 12-24-2024 Telephone encounter Uyen Gresham [facility] Medicine/Pediatrics Comment on above: Er Follow-up Start: 12-20-2024 End: 12-20-2024 Emergency department patient visit DAVID [facility] Start: 12-16-2024 End: 12-17-2024 ambulatory [facility] Facility:[facility] Start: 12-13-2024 End: 12-16-2024 Refill Armando Richards MD Work Phone: [facility] Internal Medicine/Pediatrics Start: 12-04-2024 End: 12-04-2024 ambulatory [facility] Start: 12-04-2024 End: 12-04-2024 ambulatory [facility] Start: 12-04-2024 Encounter for other preprocedural examination [facility] Start: 12-04-2024 End: 12-04-2024 Admission to establishment [address] Other Phone: Pre Anesthesia Start: 12-04-2024 End: 12-04-2024 Patient encounter procedure Pacc Av 1 Other Phone: Pre Anesthesia Comment on above: Pre-op testing (Prim fox Dx); Chronic right shoulder pain; Cerebrovascular accident (CVA), unspecified mechanism ([facility]); Mixed hyperlipidemia; Elevated BP without diagnosis of hypertension; Stenosis of carotid artery, unspecified laterality; Chronic obstructive pulmonary disease, unspecified COPD type ([facility]); Former smoker; Obstructive sleep apnea syndrome; Gastroesophageal reflux disease without esophagitis; Type 2 diabetes mellitus without complication, without long-term current use of insulin ([facility]); Mitral valve insufficiency, unspecified etiology; Aortic valve sclerosis Start: 12-04-2024 End: 12-04-2024 Patient encounter status Pacc Av 1 Other Phone: [facility] Work Phone: Start: 12-03-2024 End: 12-03-2024 Refill Jackie Peralta [facility] Internal Medicine/Pediatrics Comment on above: Lumbar degenerative disc disease Start: 12-02-2024 End: 12-02-2024 Office outpatient visit 15 minutes Adriana Lopez DO Work Phone: [facility] Comment on above: Bilateral carotid ar asael stenosis Start: 12-02-2024 End: 12-02-2024 ambulatory ADRIANA LOPEZ [facility] Start: 11-29-2024 End: 11-29-2024 Office outpatient visit 15 minutes Armando Richards MD Work Phone: [facility] Internal Medicine/Pediatrics Comment on above: Generalized osteoart hritis (Primary Dx) Start: 11-29-2024 End: 11-29-2024 ambulatory ARMANDO RICHARDS [facility] Start: 11-26-2024 End: 11-26-2024 [facility] Start: 11-18-2024 End: 11-18-2024 ambulatory Olu Sosa Facility:[facility] Start: 11-18-2024 End: 11-18-2024 Patient encounter procedure Olu Sosa [facility] Start: 11-06-2024 End: 11-06-2024 ambulatory Olu Sosa Facility:[id number] Start: 11-01-2024 End: 11-01-2024 Office outpatient visit 15 minutes Armando Richards MD Work Phone: [facility] Internal Medicine/Pediatrics Comment on above: Right ureteral stone (Primary Dx); Generalized osteoarthritis Start: 11-01-2024 End: 11-01-2024 ambulatory ARMANDO RICHARDS [facility] Start: 10-31-2024 End: 10-31-[address]24 [address]ian A [facility] Internal Medicine/Pediatrics Comment on above: Lumbar degenerative disc disease Start: 10-29-2024 End: 10-29-2024 Patient encounter status Hung Jacobsen MD Work Phone: [facility] Start: 10-29-2024 End: 10-29-2024 ambulatory Elvira Valencia RN Work Phone: Orthopaedics Comment on above: Pain (Primary Dx); Chronic right shoulder pain; Pre-op testing Start: 10-29-2024 End: 10-29-2024 Departed Referred Olu Sosa MD Work Phone: [facility] Start: 10-24-2024 End: 10-24-2024 Patient encounter procedure Manan Baker DPM Work Phone: [facility] Comment on above: Type 2 diabetes kimberly itus without complication, with long-term current use of insulin ([facility]) (Primary Dx); Pain due to onychomycosis of toenails of both feet Start: 10-24-2024 End: 10-24-2024 ambulatory MANAN BAKER Not Available Start: 10-16-2024 End: 10-16-2024 ambulatory Olu Sosa Facility: [facility] Start: 10-16-2024 End: 10-16-2024 Patient encounter procedure Olu Sosa [facility] Start: 10-15-2024 End: 10-15-2024 Patient encounter procedure Hung Jacobsen MD Work Phone: Orthopaedics Comment on above: Chronic right should er pain (Primary Dx); Aftercare following left shoulder joint replacement surgery; Glenohumeral arthritis, right Start: 10-15-2024 End: 10-15-2024 ambulatory [facility] Facility:[facility] Start: 10-15-2024 End: 10-15-2024 Subsequent hospital visit by physician Chel Conrad [facility] Rej Work Phone: Radiology Comment on above: Aftercare following left shoulder joint replacement surgery [Z47.1, Z96.612] Start: 10-02-2024 End: 10-02-2024 Refill [facility] Comment on above: Lumbar degenerative disc disease Start: 09-16-2024 End: 09-16-2024 Refill Armando Richards MD Work Phone: [facility] Internal Medicine/Pediatrics Start: 09-16-2024 End: 09-19-2024 Telephone encounter Christine Mejia RN [facility] Start: 09-03-2024 End: 09-03-2024 [facility] Facility:[facility] Start: 09-03-2024 End: 09-03-2024 Patient encounter procedure Hung Jacobsen MD Work Phone: Orthopaedics Comment on above: Aftercare following left shoulder joint replacement surgery (Primary Dx) Start: 09-03-2024 End: 09-03-2024 ambulatory [facility] Facility:[facility] Start: 09-03-2024 End: 09-03-2024 Subsequent hospital visit by physician Chel Conrad [facility] Rej Work Phone: Radiology Comment on above: Chronic left shoulde r pain [M25.512, G89.29] Start: 08-27-2024 End: 08-27-2024 Patient encounter procedure Mahesh Small MD Work Phone: [facility] Comment on above: S/P lumbar fusion (P rimary Dx); Flat back syndrome, postprocedural; Pseudarthrosis following spinal fusion Start: 08-27-2024 End: 08-27-2024 ambulatory TJ SMALL Facility:[facility] Start: 08-27-2024 End: 08-27-2024 Subsequent hospital visit by physician Xr [facility] Work Phone: [facility] Radiology General Comment on above: S/P lumbar fusion [Z 98.1] Start: 08-15-2024 End: 08-15-2024 Patient encounter procedure Manan Baker DPM Work Phone: [facility] Comment on above: Type 2 diabetes kimberly itus without complication, with long-term current use of insulin ([facility]) (Primary Dx); Pain due to onychomycosis of toenails of both feet Start: 08-15-2024 End: 08-15-2024 ambulatory MANAN BAKER Not Available Start: 08-08-2024 End: 08-08-2024 Patient encounter procedure Tamera Pineda APRN.OFFSHORING MANAGER Work Phone: Orthopaedic Surgery [facility] Comment on above: Aftercare following left shoulder joint replacement surgery (Primary Dx); Post-operative state Start: 08-08-2024 End: 08-08-2024 [facility] Facility:[facility] Start: 08-08-2024 End: 08-08-2024 Subsequent hospital visit by physician Chel [facility] Md 1 Xray [facility] Comment on above: Chronic left shoulde r pain [M25.512, G89.29] Start: 08-05-2024 End: 08-05-2024 Refill [facility] Internal Medicine/Pediatrics Comment on above: Lumbar degenerative disc disease Start: 07-26-2024 End: 07-31-2024 Telephone encounter Sandor Cope APRN.OFFSHORING MANAGER Work Phone: Pain Management Start: 07-25-2024 End: 07-26-2024 ambulatory [facility] Facility:[facility] Start: 07-23-2024 End: 07-23-2024 Office outpatient visit 5 minutes Armando Richards MD Work Phone: [facility] Internal Medicine/Pediatrics Comment on above: Other fatigue (Prima ry Dx) Start: 07-23-2024 End: 07-23-2024 ambulatory ARMANDO RICHARDS [facility] Start: 07-22-2024 End: 07-22-2024 Patient encounter procedure Conchis Acosta RT(R) General Radiology Start: 07-22-2024 End: 07-22-2024 [place] [id number] Work Phone: Pre Anesthesia Start: 07-22-2024 End: 07-22-2024 Anesthesia consultation [facility] 3 Work Phone: Pre Anesthesia Comment on above: Pre-op evaluation (P rimary Dx); Chronic left shoulder pain; Pre-operative clearance; Obstructive sleep apnea syndrome; Mixed hyperlipidemia; Elevated BP without diagnosis of hypertension; Chronic obstructive pulmonary disease, unspecified COPD type ([facility]); Former smoker; Gastroesophageal reflux disease without esophagitis; Calculus of kidney; Type 2 diabetes mellitus without complication, without long-term current use of insulin ([facility]); Cerebrovascular accident (CVA), unspecified mechanism ([facility]); Stenosis of carotid artery, unspecified laterality Start: 07-22-2024 Encounter for other preprocedural examination HUNG JACOBSEN [facility] Start: 07-22-2024 End: 07-22-2024 Preoperative state [facility] 3 Work Phone: [facility] Start: 07-22-2024 End: 07-22-2024 Preprocedural examination done Pac 3 Work Phone: [facility] Work Phone: Start: 07-22-2024 End: 07-22-2024 ambulatory Conchis Acosta RT(R) General Radiology Comment on above: Radio Gen RMP Radiology CT Start: 07-22-2024 End: 07-22-2024 Preoperative state Xr [facility] Start: 07-22-2024 End: 07-22-2024 Subsequent hospital visit by physician [facility] Comment on above: Chronic left shoulde r pain [M25.512, G89.29] Start: 07-20-2024 End: 07-22-2024 Refill Armando Richards MD Work Phone: [facility] Start: 07-19-2024 End: 07-19-2024 Orders Only Hung Jacobsen MD Work Phone: Orthopaedics Comment on above: Pain (Primary Dx); Chronic left shoulder pain; Pre-op testing Start: 07-19-2024 End: 07-19-2024 Patient encounter status Hung Jacobsen MD Work Phone: [facility] Start: 07-02-2024 End: 07-02-2024 ambulatory Elvira Valencia RN Work Phone: Orthopaedics Comment on above: Pain (Primary Dx); Chronic left shoulder pain; Pre-operative clearance Start: 07-02-2024 End: 07-02-2024 Preoperative state Hung Jacobsen MD Work Phone: [facility] Start: 06-27-2024 End: 06-27-[address] [facility] Internal Medicine/Pediatrics Comment on above: Lumbar degenerative disc disease Start: 06-27-2024 End: 06-27-2024 Refill Armando Richards MD Work Phone: [facility] Family [facility] Comment on above: Type 2 diabetes kimberly itus without complication, without long- term current use of insulin ([facility]) Start: 06-19-2024 End: 06-20-2024 Refill Lilli Wu CMA [facility] Internal Medicine/Pediatrics Comment on above: Med Refill; Medicati on Problem Start: 06-18-2024 End: 06-18-2024 ambulatory HUNG JACOBSEN Facility:[facility] Start: 06-18-2024 End: 06-18-2024 Patient encounter procedure Hung Jacobsen MD Work Phone: Orthopaedics Comment on above: Chronic left shoulde r pain (Primary Dx); Primary osteoarthritis of both shoulders; Biceps tendinitis of left shoulder; Biceps tendinitis of right upper extremity; Rotator cuff tendinitis, left Start: 06-10-2024 End: 06-10-2024 Pinaill Jackie LEWIS [facility] Start: 06-06-2024 End: 06-06-2024 Patient encounter procedure Manan Baker DPM Work Phone: [facility] Comment on above: Type 2 diabetes kimberly itus without complication, with long-term current use of insulin ([facility]) (Primary Dx); Pain due to onychomycosis of toenails of both feet Start: 06-06-2024 End: 06-06-2024 ambulatory MANAN BAKER Not Available Start: 06-06-2024 End: 06-06-2024 Bamboo flowsheet Manan Baker DPM Work Phone: [facility] Start: 06-06-2024 End: 06-06-2024 Bamboo flowsheet Manan Baker DPM Work Phone: [facility] Start: 05-29-2024 End: 05-29-2024 Patient encounter procedure Armando Richards MD Work Phone: [facility] Internal Medicine/Pediatrics Comment on above: Routine general medi jeri examination at a health care facility (Primary Dx); Lumbar degenerative disc disease; Type 2 diabetes mellitus without complication, without long-term current use of insulin ([facility]) Start: 05-29-2024 End: 05-29-2024 Patient encounter status Armando Richards MD Work Phone: [facility] Work Phone: Start: 05-29-2024 End: 05-29-2024 ambulatory ARMANDO RICHARDS [facility] Start: 05-29-2024 Encounter for genera l adult medical examination without abnormal findings [facility]O [facility] Start: 05-28-2024 End: 05-28-2024 Office outpatient visit 25 minutes Julio Quispe MD Work Phone: [facility] V[facility] Comment on above: Bilateral carotid ar asael stenosis (Primary Dx); Stenosis of right internal carotid artery Start: 05-28-2024 End: 05-28-2024 ambulatory [facility] Start: 05-08-2024 End: 06-24-2024 Telephone encounter Elicia Wright RN [facility] Start: 05-01-2024 End: 05-01-2024 ambulatory JOCELYN HATFIELD [facility] Comment on above: Cerebrovascular acci dent (CVA), unspecified mechanism (CMS- HCC) (Primary Dx); Other cerebrovascular vasospasm and vasoconstriction Start: 04-25-2024 End: 04-25-2024 Office outpatient visit 25 minutes Jocelyn Hatfield MD Work Phone[facility] Comment on above: Cerebrovascular acci dent (CVA), unspecified mechanism (CMS- HCC) (Primary Dx); Stenosis of right internal carotid artery Start: 04-25-2024 End: 04-25-2024 ambulatory DAVID [facility] Start: 04-22-2024 End: 04-22-2024 Telephone encounter Armando Richards MD Work Phone: [facility]ediatric[facility] Start: 04-18-2024 End: 04-18-2024 Refill Armando Richards MD Work Phone: [facility] Internal Medicine/[facility]ediatric[facility] Start: 04-17-2024 End: 04-18-2024 Refill Armando Richards MD Work Phone: [facility] Internal Medicine/Pediatrics Start: 04-14-2024 End: 04-14-2024 Refill Armando Richards MD Work Phone: [facility] Internal Medicine/Pediatrics Start: 04-01-2024 End: 04-10-2024 Telephone encounter Elicia Wright RN [facility] Start: 03-27-2024 End: 03-27-2024 ambulatory EDINSON LOWERY [facility] Comment on above: Cerebrovascular acci dent (CVA), unspecified mechanism (CMS- HCC) (Primary Dx); Other cerebrovascular vasospasm and vasoconstriction Start: 03-26-2024 End: 03-29-[address] [facility] Internal Medicine/Pediatrics Comment on above: Lumbar degenerative disc disease Transition Of Care Returning Call Start: 03-24-2024 End: 03-26-2024 Emergency department patient visit VENANCIO NUNEZ [facility] Start: 03-24-2024 End: 03-25-2024 ambulatory [facility] Start: 03-24-2024 End: 03-26-2024 Emergency department patient visit Venancio Nunez DO Work Phone: [facility] Comment on above: Dizziness (Primary D x); Cerebrovascular accident (CVA), unspecified mechanism ([facility]) Start: 03-21-2024 End: 03-21-2024 ambulatory MANAN A FUAD Not Available Start: 02-23-2024 End: 02-23-2024 ambulatory HUNG JACOBSEN Facility:[facility] Start: 02-23-2024 End: 02-23-2024 Patient encounter procedure Hung Jacobsen MD Work Phone: Orthopaedics Comment on above: 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); Biceps tendinitis of right upper extremity; Biceps tendinitis of left shoulder; Tendinitis of right rotator cuff; Rotator cuff tendinitis, left Start: 02-21-2024 End: 02-21-2024 ambulatory DAVID [facility] Start: 02-21-2024 End: 02-21-2024 Office outpatient visit 15 minutes Armando Richards MD Work Phone: [facility] Internal Medicine/Pediatrics Comment on above: Anxiety (Primary Dx) ; Lumbar degenerative disc disease; Benign prostatic hyperplasia with nocturia Start: 02-20-2024 End: 02-20-2024 ambulatory Mahesh SMALL Facility:[facility] Start: 02-20-2024 End: 02-20-2024 Patient encounter procedure Mahesh Small MD Work Phone: [facility] [place] Comment on above: S/P lumbar fusion (P rimary Dx); Flat back syndrome, postprocedural; Pseudarthrosis following spinal fusion Start: 02-20-2024 ambulatory Maritza Ridley Facility :[facility] Start: 01-25-2024 End: 01-25-2024 Refill [facility] LEWIS [facility] Comment on above: Lumbar degenerative disc disease Start: 12-26-2023 End: 12-26-2023 ambulatory Beatrice X Orbritneych Facility: [facility] Start: 12-26-2023 End: 12-26-2023 Patient encounter procedure Beatrice X Ordenise [facility] Start: 12-25-2023 End: 12-25-2023 [facility] Comment on above: Lumbar degenerative disc disease Start: 12-21-2023 End: 12-21-2023 ambulatory MANAN BAKER Not Available Start: 12-12-2023 End: 12-12-2023 Telephone encounter Lilli Wu CMA [facility] Internal Medicine/Pediatrics Comment on above: Med Refill Start: 12-11-2023 End: 12-11-2023 Telephone encounter [facility]resh[facility] Comment on above: Er Follow-up Start: 11-27-2023 End: 11-27-2023 Office outpatient visit 25 minutes Armando Richards MD Work Phone: [facility] Internal Medicine/Pediatric[facility] Comment on above: Other fatigue (Prima ry Dx); Gastroesophageal reflux disease without esophagitis; ROMEO (obstructive sleep apnea); Generalized osteoarthritis; Type 2 diabetes mellitus without complication, without long-term current use of insulin ([facility]) Start: 11-22-2023 End: 11-22-2023 Refill [facility] Comment on above: Lumbar degenerative disc disease Start: 11-21-2023 End: 11-21-2023 Patient encounter procedure Mahesh Small MD Work Phone: [facility] Comment on above: S/P lumbar fusion (P rimary Dx); Flat back syndrome, postprocedural; Pseudarthrosis following spinal fusion Start: 11-17-2023 End: 11-17-2023 Patient encounter procedure Hung Jacobsen MD Work Phone: Orthopaedics Comment on above: 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); Biceps tendinitis of right upper extremity; Biceps tendinitis of left shoulder; Tendinitis of right rotator cuff; Rotator cuff tendinitis, left Start: 11-17-2023 End: 11-17-2023 Subsequent hospital visit by physician Xr [facility] Radiology Comment on above: Pain [R52] Start: 11-14-2023 Orders Only Hung Jacobsen MD Work Phone: Orthopaedics Comment on above: Pain (Primary Dx) Start: 10-23-2023 Refill Lilli Lams on HEEL TOP LIFT SPLITTER [facility] Internal Medicine/Pediatrics Comment on above: Lumbar degenerative disc disease Start: 10-18-2023 Refill Armando baugh MD Work Phone: [facility] Internal Medicine/Pediatrics Comment on above: Myalgia Start: 10-10-2023 Telephone encounter Mahesh Small MD Work Phone: [facility] Comment on above: Appointment Start: 10-10-2023 End: 10-10-2023 Patient encounter procedure Mahesh Small MD Work Phone: [facility] Comment on above: S/P lumbar fusion (P rimary Dx); S/P lumbar spinal fusion; Pseudarthrosis following spinal fusion Start: 10-10-2023 End: 10-10-2023 Subsequent hospital visit by physician [facility] Work Phone: [facility] Radiology General Comment on above: S/P lumbar fusion [Z 98.1] Start: 10-04-2023 End: 10-04-2023 Patient encounter procedure Olu Sosa [facility] Start: 09-22-2023 Refill Lilli Lams on HEEL TOP LIFT SPLITTER [facility] Internal Medicine/Pediatrics Comment on above: Lumbar degenerative disc disease Start: 09-21-2023 Refill Armando baugh MD Work Phone: [facility] Medicine/[facility]ediatric[facility] Start: 09-19-2023 End: 09-19-2023 Office outpatient visit 15 minutes Armando Richards MD Work Phone: [facility] Medicine/[facility]ediatric[facility] Comment on above: 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 (Primary Dx); Type 2 diabetes mellitus without complication, without long-term current use of insulin ([facility]) Start: 09-03-2023 Refill Armando baugh MD Work Phone: [facility] Internal Medicine/Pediatrics Comment on above: Type 2 diabetes kimberly itus without complication, without long- term current use of insulin ([facility]) Start: 08-08-2023 Refill Lilli Wright on HEEL TOP LIFT SPLITTER [facility] Internal Medicine/Pediatrics Comment on above: Lumbar degenerative disc disease Start: 07-31-2023 End: 07-31-2023 Admission to establishment Pacc [address] 1 Other Phone: [facility] Start: 07-31-2023 End: 07-31-[address] Other Phone: Pre Anesthesia Comment on above: Pre-op exam (Primary Dx); Type 2 diabetes mellitus without complication, without long-term current use of insulin ([facility]); Former smoker; Chronic obstructive pulmonary disease, unspecified COPD type ([facility]) Start: 07-31-2023 End: 07-31-2023 Preprocedural examination done Pacc Av 1 Other Phone: [facility] Work Phone: Start: 07-21-2023 Telephone encounter Mahesh Small MD Work Phone: [facility] Comment on above: surgery questions Start: 05-05-2023 End: 05-05-2023 ambulatory Immadelin Abarca Other [place] Other Start: 05-05-2023 Telephone encounter Cortes Abarca [facility] Gastroenterology Start: 05-04-2023 End: 05-04-2023 Admission to same day surgery center MD Armando Richards Work Phone: [facility] Work Phone: Start: 05-04-2023 End: 05-04-2023 ambulatory MD Armando Richards Work Phone: [facility] Work Phone: Start: 05-03-2023 End: 05-03-2023 Patient encounter procedure Olu Sosa [facility] Start: 03-13-2023 End: 03-13-2023 ambulatory Yue Joyner PT Work Phone: Gavino [facility] Physical Therapy Comment on above: Chronic right should er pain Start: 03-13-2023 End: 03-13-2023 Patient encounter procedure Hung Ian Genin DO Work Phone: Orthopaedics Comment on above: Glenohumeral arthrit is, right (Primary Dx) Start: 03-09-2023 End: 03-09-2023 Patient encounter procedure Olu Sosa [facility] Start: 03-08-2023 End: 03-08-2023 ambulatory HUNG Ian CHENIN Facility:[facility] Start: 03-08-2023 End: 03-08-2023 Office outpatient visit 25 minutes Hung A Genin DO Work Phone: Orthopaedics [place] Comment on above: Glenohumeral arthrit is, right (Primary Dx); Decreased range of motion of right shoulder; Chronic right shoulder pain Start: 02-16-2023 Admission to same [facility] Comment on above: Surgery Start: 02-16-2023 E-mail encounter fro m caregiver [facility] Provider [facility] Start: 02-09-2023 Telephone encounter Mahesh Small MD Work Phone: [facility] Comment on above: Schedule Surgery Start: 02-06-2023 End: 02-06-2023 ambulatory Imad Asaad Other [facility] [employer] Other Start: 02-06-2023 Telephone encounter Imad Asaad [facility] Start: 02-02-2023 End: 02-02-2023 Admission to same day surgery center MD Armando Richards Work Phone: [facility] Work Phone: Start: 02-02-2023 End: 02-02-2023 ambulatory MD Armando Richards Work Phone: [facility] Work Phone: Start: 01-31-2023 End: 01-31-2023 Patient encounter procedure Mahesh Small MD Work Phone: [facility] Comment on above: S/P lumbar spinal fu lanny (Primary Dx); Flat back syndrome, postprocedural; Pseudarthrosis following spinal fusion Start: 01-18-2023 End: 01-18-2023 Lab Drop off Olu Sosa [facility] Start: 01-18-2023 End: 01-18-2023 Patient encounter procedure Olu Sosa [facility] Start: 01-10-2023 End: 01-11-2023 ambulatory OLU SOSA . Facility: Start: 12-26-2022 End: 12-26-2022 Patient encounter procedure Hung Jacobsen MD Work Phone: Orthopedics Comment on above: Glenohumeral arthrit is, right (Primary Dx); Tendinitis of right rotator cuff; Biceps tendinitis of right upper extremity Start: 12-23-2022 End: 12-23-2022 Subsequent hospital visit by physician Chel [facility] Comment on above: Pain [R52] S/P lumbar spinal fu lanny [Z98.1] Start: 12-21-2022 Orders Only Hung Jacobsen MD Work Phone: Orthopaedics Comment on above: Pain (Primary Dx) Start: 12-13-2022 End: 12-13-2022 Patient encounter procedure Mahesh Small MD Work Phone: [facility] Comment on above: S/P lumbar spinal fu lanny (Primary Dx); Flat back syndrome, postprocedural Start: 12-13-2022 End: 12-13-2022 Subsequent hospital visit by physician [facility] Work Phone: [facility] General Comment on above: Chronic low back lily n, unspecified back pain laterality, unspecified whether sciatica present [M54.50, G89.29] Start: 12-08-2022 (PROC) PROCEDURE Valdochris Goode [facility] Start: 12-08-2022 End: 12-08-2022 ambulatory Valdo Rupa Other [place] Other Start: 11-28-2022 End: 11-28-2022 ambulatory Valdo Rupa Other [place] Other Start: 11-28-2022 Office outpatient vi sit 25 minutes Valdo Rupa [facility] Start: 11-17-2022 (PROC) PROCEDURE Valdo Goode [facility] Start: 11-17-2022 End: 11-17-2022 ambulatory Valdo Rupa Other [place] Other Start: 11-17-2022 Telephone encounter Mahesh Small MD Work Phone: Neurology Comment on above: Future Appointment Start: 11-14-2022 End: 11-14-2022 ambulatory Valdo Rupa Other [place] Other Start: 11-14-2022 Office outpatient vi sit 25 minutes Valdo Rupa [facility] Start: 11-10-2022 End: 11-10-2022 ambulatory Temi Dean Other [place] Other Start: 11-10-2022 Telephone encounter Temi Dean [facility] Start: 11-07-2022 End: 11-07-2022 Admission to same day surgery center MD [facility] Work Phone: Start: 09-22-2022 (PROC) PROCEDURE [facility] [place] Start: 09-22-2022 End: 09-22-2022 ambulatory Valdo Rupa Other [place] Other Start: 09-13-2022 End: 09-13-2022 ambulatory Valdo Rupa Other [place] Other Start: 09-13-2022 Office outpatient vi sit 25 minutes Valdo Rupa [facility] Start: 09-06-2022 (PROC) PROCEDURE [facility] Start: 09-06-2022 End: 09-06-2022 ambulatory Valdo Rupa Other [place] Other Start: 09-02-2022 End: 09-02-2022 ambulatory Valdo Rupa Other [place] Other Start: 09-02-2022 Office outpatient vi sit 25 minutes Valdo Rupa [facility] Start: 08-11-2022 End: 08-11-2022 ambulatory Temi Dean Other [place] Other Start: 08-11-2022 Telephone encounter Temi Dean [facility] [address] Start: 08-10-2022 Office outpatient vi sit 25 minutes Temi Dean [facility] Start: 08-10-2022 End: 08-10-2022 ambulatory MD Armando Richards Work Phone: [facility] Work Phone: Start: 08-10-2022 End: 08-10-2022 Patient encounter procedure MD Armando Richards Work Phone: [facility] [place] Work Phone: Start: 07-13-2022 End: 07-13-2022 ambulatory Alvaro Scales Other [place] Other Start: 07-13-2022 Telephone encounter Alvaro Scales [facility] Start: 07-12-2022 End: 07-12-2022 ambulatory Temi Dean Other [facility] [employer] Other Start: 07-12-2022 Office outpatient vi sit 25 minutes Temi Dean [facility] Start: 07-06-2022 End: 07-06-2022 Lab Drop off Olu Sosa [facility] Start: 07-06-2022 End: 07-06-2022 Patient encounter procedure Olu Sosa [facility] Start: 07-04-2022 End: 07-05-[address] ARMANDO RICHARDS Facility: Start: 06-15-2022 End: 06-15-2022 ambulatory Valdo Goode Other [facility] [employer] Other Start: 06-15-2022 Office outpatient vi sit 25 minutes Valdo Goode [facility] Start: 06-10-2022 End: 06-10-2022 ambulatory Valdo Goode Other [place] Other Start: 06-10-2022 Telephone encounter Valdo Goode [facility] Start: 06-02-2022 (Procedure) Short Valdo Goode [facility] Start: 06-02-2022 End: 06-02-2022 ambulatory Valdo Goode Other [place] Other Start: 05-24-2022 End: 05-24-2022 Patient encounter procedure Mahesh Small MD Work Phone: [facility] Comment on above: S/P lumbar spinal fu lanny (Primary Dx); Quadriceps weakness; Flat back syndrome, postprocedural Start: 05-24-2022 End: 05-24-2022 Subsequent hospital visit by physician [facility] Work Phone: [facility] General Comment on above: S/P lumbar fusion [Z 98.1] Start: 05-23-2022 Telephone encounter Mahesh Small MD Work Phone: [facility] Comment on above: Radiology XR Start: 05-20-2022 Orders Only Graham Perez on PA-C Work Phone: [facility] Comment on above: S/P lumbar fusion (P rimary Dx) Start: 05-19-2022 Encounter for preprocedural cardiovascular examination OLU SOSA . [facility] Start: 05-19-2022 Encounter for preprocedural laboratory examination OLU SOSA . [facility] Start: 05-18-2022 End: 05-18-[address] ARMANDO RICHARDS Facility:[facility]1 Start: 05-16-2022 End: 05-17-[address] ARMANDO RICHARDS Facility:[facility] Start: 05-16-2022 End: 05-17-2022 Encounter for preprocedural cardiovascular examination DR ARMANDO RICHARDS Facility:[facility] Start: 05-12-2022 End: 05-12-2022 ambulatory Valdo Goode Other [place] Other Start: 05-12-2022 Telephone encounter Valdo Goode [facility] Start: 05-10-2022 End: 05-10-2022 ambulatory Valdo Goode Other [place] Other Start: 05-10-2022 Office outpatient vi sit 25 minutes Valdochris Goode [facility] Start: 04-27-2022 End: 04-27-2022 Lab Drop off Olu CalvoDamaso Candelari[facility]rent [facility] Start: 04-27-2022 End: 04-27-2022 Patient encounter procedure Olu Sosa [facility] [place] Start: 04-19-2022 End: 04-19-2022 ambulatory Alvaro Scales Other [place] Other Start: 04-19-2022 Telephone encounter Alvaro Scales [facility] Start: 04-12-2022 End: 04-13-[address] EDELMIRA ARANGO Facility: Start: 04-11-2022 End: 04-11-2022 ambulatory Valdo Goode Other [place] Other Start: 04-11-2022 Office outpatient vi sit 25 minutes Valdo Rupa [facility] Start: 03-29-2022 End: 03-29-2022 ambulatory Sharda Brown Other [place] Other Start: 03-29-2022 Telephone encounter Sharda Martínez [facility] Start: 03-03-2022 End: 03-03-2022 Patient encounter procedure MD Armando Richards Work Phone: [facility] [place] Start: 02-15-2022 End: 02-15-2022 ambulatory Sharda Brown Other [place] Other Start: 02-15-2022 Telephone encounter Sharda Martínez [facility] Neurosurgery Start: 02-15-2022 End: 02-15-2022 Patient encounter procedure Mahesh Small MD Work Phone: [facility] Comment on above: S/P lumbar spinal fu lanny; Quadriceps weakness; Atrophy of quadriceps femoris muscle; Left thigh pain; Spinal stenosis of lumbar region, unspecified whether neurogenic claudication present; Lumbar radiculopathy, chronic Start: 02-09-2022 End: 02-09-2022 ambulatory Sharda Brown Other [place] Other Start: 02-09-2022 Office outpatient vi sit 15 minutes Sharda Brown [facility] Start: 02-09-2022 End: 02-09-2022 Patient encounter procedure MD Armando Richards Work Phone: [facility] Start: 2022 End: 2022 ambulatory Emg 1000) Work Phone: Neurology Comment on above: EMG Start: 2022 End: 2022 Patient encounter procedure Emg 3 Neur Main (Max Weight: 1000) Work Phone: [facility] Start: 01-31-2022 End: 01-31-2022 ambulatory Valdo Goode Other [place] Other Start: 01-31-2022 Office outpatient vi sit 25 minutes Valdo Goode [facility] Start: 01-26-2022 End: 01-26-2022 Patient encounter procedure Enzo White DO Work Phone: [facility] Comment on above: S/P lumbar spinal fu lanny (Primary Dx); Quadriceps weakness; Atrophy of quadriceps femoris muscle; Left thigh pain; Spinal stenosis of lumbar region, unspecified whether neurogenic claudication present; Lumbar radiculopathy, chronic; Gait difficulty Start: 01-13-2022 (Procedure) Lizbeth Goode [facility] Start: 01-13-2022 End: 01-13-2022 ambulatory Valdo Goode Other [facility] [employer] Other Start: 01-11-2022 End: 01-11-2022 ambulatory Valdo Rupa Other [place] Other Start: 01-11-2022 Telephone encounter Valdo Rupa [facility] Start: 12-30-2021 End: 12-30-2021 ambulatory Sharda Brown Other [place] Other Start: 12-30-2021 Telephone encounter Sharda Kevin F [facility] Start: 12-29-2021 End: 12-29-2021 ambulatory Sharda Stubbsdavecody Other [facility] [employer] Other Start: 12-29-2021 Office outpatient vi sit 15 minutes Sharda Brown [facility] [place] Start: 12-23-2021 (Procedure) Dixie Valdo Goode [facility] Start: 12-23-2021 End: 12-23-2021 ambulatory Vadlo Rupa Other [place] Other Start: 12-14-2021 End: 12-14-2021 ambulatory Valdo Rupa Other [place] Other Start: 12-14-2021 Office outpatient vi sit 25 minutes Valdo Rupa [facility] Start: 12-06-2021 End: 12-06-2021 ambulatory Valdo Rupa Other [place] Other Start: 12-06-2021 Telephone encounter Valdo Rupa [facility] Start: 11-30-2021 (Procedure) Short Valdo Goode [facility] Start: 11-30-2021 End: 11-30-2021 ambulatory Valdo Rupa Other [place] Other Start: 11-26-2021 End: 11-26-2021 ambulatory Valdo Rupa Other [place] Other Start: 11-26-2021 Telephone encounter Valdo Rupa [employer] Start: 11-25-2021 End: 11-25-2021 ambulatory Valdo Goode Other [place] [employer] Other Start: 11-25-2021 Office outpatient vi sit 25 minutes Valdo Goode [facility] Start: 11-17-2021 End: 11-17-2021 ambulatory Sharda Brown Other [employer] [facility] [employer] Other Start: 11-17-2021 Postop follow up vis it related to original px Sharda Elsdaves [facility] Start: 11-15-2021 End: 11-15-2021 ambulatory Sharda Brown Other [facility] [employer] Other Start: 11-15-2021 Telephone encounter Sharda Martínez [facility] Neurosurgery Start: 11-04-2021 End: 11-04-2021 Patient encounter procedure MD Armando Richards Work Phone: [facility] [place] Start: 11-03-2021 End: 11-03-2021 Patient encounter procedure Olu Sosa [facility] Start: 11-01-2021 End: 11-01-2021 ambulatory Sharad Brown Other [facility] [employer] Other Start: 11-01-2021 Postop follow up vis it related to original px Sharda Elsdaves [facility] Start: 09-20-2021 End: 10-18-2021 Evaluation and management of inpatient MD Armando Richards Work Phone: [facility] Start: 09-14-2021 Admission to [facility] Sharda Brown [facility] Start: 09-14-2021 End: 09-14-2021 ambulatory Sharda Brown Other [place] Other Start: 09-14-2021 End: 09-20-2021 Evaluation and management of inpatient MD Armando Richards Work Phone: [facility] [place] [facility] Start: 09-13-2021 End: 09-13-2021 Patient encounter procedure MD Armando Richards Work Phone: [facility] Start: 09-09-2021 End: 09-09-2021 Patient encounter procedure MD Armando Richards Work Phone: [facility]Pre-Surgical [facility] Start: 08-26-2021 End: 08-26-2021 ambulatory Sharda Brown Other [place] Other Start: 08-26-2021 Office outpatient vi sit 15 minutes Sharda Brown [facility] Start: 07-28-2021 End: 07-28-2021 ambulatory Sharda Brown Other [place] Other Start: 07-28-2021 Office outpatient ne w 30 minutes Sharda Brown [facility] [place] Start: 07-05-2019 End: 07-06-2019 Patient encounter procedure VICENTE EBRAHEIM Facility:[facility] Start: 06-14-2019 End: 06-15-2019 Patient encounter procedure VICENTE EBRAHEIM Facility:[facility] Start: 05-31-2019 End: 06-01-2019 Patient encounter procedure VICENTE EBRAHEIM Facility:[facility] Start: 05-24-2019 End: 05-25-2019 Patient encounter procedure VICENTE EBRAHEIM Facility:[facility] Start: 05-17-2019 End: 05-18-2019 Patient encounter procedure VICENTE EBRAHEIM Facility:[facility] Start: 05-07-2019 End: 05-09-2019 Patient encounter procedure VICENTE EBRAHEIM Facility:[facility] Procedures Date Procedure Procedure Detail Performing Clinician Start: 12-04-2024 Antibody screen HUNG JACOBSEN Comment on above: Order Comment: Specimen Type: BLOOD SPEC IMEN Ordering Facility: [facility] Address: [address] [place], [place] [id number] Performed By: #### T [id number] #### [facility] CLIA [id number] [place] [address] [facility] Start: 12-02-2024 Follow-up visit Follow-up ADRIANA LOPEZ Start: 10-15-2024 Radex shoulder complete minimum 2 views Hung Jacobsen MD Work Phone: Start: 09-03-2024 Radex shoulder complete minimum 2 views Hung Jacobsen MD Work Phone: Start: 08-08-2024 Radex shoulder complete minimum 2 views Hung Jacobsen MD Work Phone: Start: 07-22-2024 Ecg routine ecg w/least 12 lds i&r only [facility] Provider Start: 07-22-2024 Antibody screen HUNG JACOBSEN Comment on above: Order Comment: Specimen Type: BLOOD SPEC IMENOrdering Facility: [facility] Address: [address] [place], [place] [id number] Performed By: #### T [id number] ####CC MAIN BLOOD BANKCLIA [id number] [place] [id number] [facility] Start: 07-22-2024 Radiologic exam chest 2 views Hung Baugh Work Phone: Start: 05-29-2024 Adult depression screening assessment Armando Richards MD Work Phone: Start: 04-25-2024 Adult depression screening assessment Jocelyn Hatfield MD Work Phone: Start: 03-25-2024 Gluc bld gluc mntr dev cleared fda spec home use Armando Neville DO Work Phone: Start: 03-25-2024 Duplex scan extracranial art compl bi study Armando Neville DO Work Phone: Start: 03-25-2024 Echo tthrc r-t 2d w/wom-mode compl spec&colr d Armando Neville DO Work Phone: Start: 03-25-2024 Gluc bld gluc mntr dev cleared fda spec home use Armando Neville DO Work Phone: Start: 03-25-2024 Mri brain brain stem w/o contrast material Armando Neville DO Work Phone: Start: 03-25-2024 Gluc bld gluc mntr dev cleared fda spec home use Armando Neville DO Work Phone: Start: 03-25-2024 Cyanocobalamin vitamin b-12 Armando Neville DO Work Phone: Start: 03-25-2024 Lipid panel Armando Neville DO Work Phone: Start: 03-24-2024 Gluc bld gluc mntr dev cleared fda spec home use Armando Neville DO Work Phone: Start: 03-24-2024 PULSE OXIMETRY, SPOT Armando Neville DO Work Phone: Start: 03-24-2024 Urnls dip stick/tablet rgnt auto w/o microscopy Venancio Nunez DO Work Phone: Start: 03-24-2024 Assay of troponin quantitative Venancio ashley DO Work Phone: Start: 03-24-2024 Radiologic exam chest single view Venancio Nunez [employer] Work Phone: Start: 03-24-2024 Ct angiography neck w/contrast/noncontrast Venancio Nunez DO Work Phone: Start: 03-24-2024 Ecg routine ecg w/least 12 lds trcg only w/o i&r Venancio Nunez DO Work Phone: Start: 03-24-2024 End: 03-24-2024 Ct head/brain w/o contrast material Venancio Nunez DO Work Phone: Start: 03-24-2024 End: 03-24-2024 Basic metabolic panel calcium total Venancio Nunez DO Work Phone: Start: 02-23-2024 Arthrocentesis aspir&/inj major jt/bursa w/o us Hung Jacobsen MD Work Phone: Start: 02-23-2024 Arthrocentesis aspir&/inj major jt/bursa w/o us Hung Jacobsen MD Work Phone: Start: 11-17-2023 Arthrocentesis aspir&/inj major jt/bursa w/o us Hung Jacobsen MD Work Phone: Start: 11-17-2023 Arthrocentesis aspir&/inj major jt/bursa w/o us Hung Jacobsen MD Work Phone: Start: 11-17-2023 Radex shoulder complete minimum 2 views Hung Jacobsen MD Work Phone: Start: 10-10-2023 Radex entir thrc lmbr crv sac spi w/skull 2/3 vw R Jose Small MD Work Phone: Start: 07-31-2023 Ecg routine ecg w/least 12 lds i&r only Aline Jones PA-C Work Phone: Start: 05-24-2023 Adult depression screening assessment Lilli Wu [facility] Start: 05-04-2023 Esophagogastroduodenoscopy MD Armando Fernandes and Work Phone: Start: 03-09-2023 Cystoscopic removal of ureteric stent Olu Lue Start: 03-08-2023 Arthrocentesis aspir&/inj major jt/bursa w/us Hung Hardy DO Work Phone: Start: 03-01-2023 Cystoscopic laser lithotripsy of ureteric calculus Olu Lue Start: 03-01-2023 Cystoscopic removal of ureteric stent Olu Lue Start: 02-02-2023 Esophagogastroduodenoscopy MD Armando Fernandes and Work Phone: Start: 12-23-2022 Radex shoulder complete minimum 2 views Hung Jacobsen MD Work Phone: Start: 12-23-2022 Ct lumbar spine w/o contrast material Mahesh Small MD Work Phone: Start: 12-13-2022 Radex spine lumbosacral 2/3 views Janice ian Katrina Mora PA-C Work Phone: Start: 11-07-2022 Esophagogastroduodenoscopy MD Armando Rivas Work Phone: Start: 08-10-2022 Plain X-ray of right shoulder MD Armando green Work Phone: Start: 05-24-2022 Radex spine lumbosacral 2/3 views Graham LOMELI-C Work Phone: Start: 05-18-2022 Extracorporeal shockwave lithotripsy of calculus of kidney Olu Sosa Start: 02-09-2022 X-ray of lumbar spine, two or three views MD Armando Richards Work Phone: Start: 2022 Nerve conduction studies 5-6 studies Enzo White DO Work Phone: Start: 10-17-2021 Duplex scan of lower limb veins MD Armando Richards Work Phone: Start: 10-17-2021 Radiography of sacrococcygeal spine MD Armando Richards Work Phone: Start: 10-17-2021 Radiography of thoracic spine MD Armando green Work Phone: Start: 10-17-2021 X-ray of lumbar spine, two or three views MD Armando Richards Work Phone: Start: 09-23-2021 Plain chest X-ray MD Armando Richards Work Phone: Start: 09-19-2021 Ultrasonography of bilateral kidneys MD Armando Richards Work Phone: Start: 09-15-2021 X-ray of lumbar spine, two or three views MD Armando Richards Work Phone: Start: 09-15-2021 Plain chest X-ray MD Armando Richards Work Phone: Start: 09-14-2021 X-ray of lumbar spine, two or three views MD Armando Richards Work Phone: Start: 07-05-2019 Anes integ extremities ant trunk & perineum nos [employer] Start: 07-05-2019 SKIN SPLT GRFT TRNK/ARM/LEG VICENTE EBRAHE IM Start: 07-05-2019 WOUND PREP TRK/ARM/LEG VICENTE EBRAHEIM Start: 06-14-2019 ANESTH LOWER ARM SURGERY [employer] Start: 06-14-2019 REYNALDO MUSC/FASCIA ADD-ON VICENTE EBRAHEIM Start: 06-14-2019 Debridement muscle & fascia 20 sq cm/< VICENTE EBRAHEIM Start: 05-31-2019 Anes integ extremities ant trunk & perineum nos MOON SHAIKH Start: 05-31-2019 REMOVE TISSUE VERIFIER OPERATOR(S) VICENTE EBRAHEIM Start: 05-24-2019 Anes integ extremities ant trunk & perineum nos LAURA WISEMAN Start: 05-24-2019 Insertion of tissue sales architect VICENTE EBRAH EIM Start: 05-17-2019 ANESTH LOWER ARM SURGERY EVA SAAB Start: 05-17-2019 REYNALDO MUSC/FASCIA ADD-ON VICENTE EBRAHEIM Start: 05-17-2019 Debridement muscle & fascia 20 sq cm/< VICENTE EBRAHEIM Start: 05-08-2019 Antibody screen VICENTE EBRAHEIM Comment on above: Performed By: #### [id number] #### [address] Start: 05-07-2019 Antibody screen VICENTE EBRAHEIM Comment on above: Performed By: #### [id number] #### [address] Start: 05-07-2019 ANESTH LOWER ARM SURGERY [employer] Start: 05-07-2019 [employer]OMPRESS [employer]EARM 1 SPACE VICENTE EBRAHEI M Back structure, excl uding neck (body structure) Beatrice Mireles Procedure on back Olu Sosa Plan of Treatment Date Care Activity Detail Author Start: 11-30-2028 DTaP,Tdap and Td Vaccines (2 - Td or Tdap) DTaP,Tdap and Td Vaccines (2 - Td or Tdap) [facility] Start: 11-30-2028 Urine microalbumin profile DTaP,Tdap,Td Vaccine (2 - Td or Tdap) [facility] Start: 05-26-2026 Diabetes Screening Diabetes Screening [facility] Start: 12-24-2025 Tobacco Screening Tobacco Screening [facility] Start: 12-20-2025 Tobacco Screening Tobacco Screening [facility] Start: 12-16-2025 Tobacco Screening Tobacco Screening [facility] Start: 12-04-2025 BP Controlled (<130/80) BP Controlled (<130/80) [facility] in Start: 12-02-2025 Tobacco Screening Tobacco Screening [facility] Start: 11-29-2025 Tobacco Screening Tobacco Screening [facility] Start: 08-27-2025 End: 09-26-2025 XR Thoracic and lumbar spine Views for scoliosis W standing XR SCOLIOSIS PA STAND/LAT 2V Radiology Routine S/P lumbar fusion Flat back syndrome, postprocedural Expected: 08/27/2025 (Approximate), Expires: 09/26/2025 [facility] Work Phone: Comment on above: Expected: 08/27/2025 (Approximate), Expi res: 09/26/2025 Start: 06-09-2025 End: 06-09-2025 Patient encounter procedure 06/09/2025 10:00 AM EDT Office Visit [facility] [place] [address] [place] [address] Adriana Lopez, DO [address] [facility] [address] [place] [address] [facility] [place] Start: 06-05-2025 Hemoglobin A1c measurement HbA1C [facility] Start: 06-03-2025 End: 12-02-2025 US Carotid arteries - bilateral Vas carotid duplex bilateral Vascular Ultrasound Routine Bilateral carotid artery stenosis Expected: 06/03/2025 (Approximate), Expires: 12[facility]02/[facility] Work Phone: Comment on above: Expected: 06/03/2025 (Approximate), Expi res: 12/02/2025 Start: 06-03-2025 End: 06-03-2025 Patient encounter procedure 06/03/2025 9:30 AM EDT Appointment [facility] [address] [place] [id number] Adriana Lopez, DO [address] [place] [address] [facility] Start: 06-02-2025 End: 06-02-2025 Patient encounter procedure 06/02/2025 10:15 AM EDT Office Visit [facility] [address] [place] [id number] Armando Richards MD [address] [place] [address], [address] [place], [place] [id number] [facility] Start: 05-29-2025 Adult BMI Screening Adult BMI Screening [facility] Start: 05-29-2025 Depression Screening Depression Screening [facility] Start: 05-29-2025 Fall Risk Screening Fall Risk Screening [facility] Start: 05-29-2025 Medicare Annual Wellness Visit Medicare Annual Wellness Visit [facility] Start: 05-29-2025 Tobacco Screening Tobacco Screening [facility] Start: 05-28-2025 Adult BMI Screening Adult BMI Screening [facility] Start: 05-28-2025 Tobacco Screening Tobacco Screening [facility] Start: 04-25-2025 Adult BMI Screening Adult BMI Screening [facility] Start: 04-25-2025 Depression Screening Depression Screening [facility] Start: 04-14-2025 Influenza vaccination Influenza Vaccine [facility] Start: 03-24-2025 Tobacco Screening Tobacco Screening [facility] Start: 02-20-2025 Adult BMI Screening Adult BMI Screening [facility] Start: 02-11-2025 End: 02-11-2025 Patient encounter procedure 02/11/2025 9:15 AM EDT Office Visit Orthopaedics [address] [place] [address] Hung Jacobsen MD [address] [place], [place] [id number] [facility] Comment on above: TSA Start: 01-28-2025 End: 01-28-2025 Patient encounter procedure 01/28/2025 10:45 AM EDT Office Visit Orthopaedics [address] [place] [address] Hung Jacobsen MD [address] [place] [address] [facility] Comment on above: TSA Start: 01-13-2025 End: 01-13-2025 Nursing evaluation of patient and report 01/13/2025 12:00 PM EDT Nurse Visit Orthopedics [address] [place] [address] [place] [address] [place], [place] [id number] [facility] Comment on above: TSA Start: 01-13-2025 End: 01-13-2025 Patient encounter procedure 01/13/2025 11:30 AM EDT Appointment Radiology [address] [place] [address] XR SHOULDER GENERAL 3V OR MORE AP/TRUE AP/OTHER RIGHT Radiology Comment on above: XR SHOULDER GENERAL 3V OR MORE AP/TRUE A P/OTHER RIGHT Start: 12-30-2024 End: 12-30-2024 Nursing evaluation of patient and report 12/30/2024 12:45 PM EDT Nurse Visit Orthopedics [address] [place] [address] [place] [address] [address] [place], [place] [phone] [facility] Comment on above: TSA Start: 12-30-2024 End: 12-30-2024 Patient encounter procedure 12/30/2024 12:00 PM EDT Appointment Radiology [address] [place] [address] XR SHOULDER GENERAL 3V OR MORE AP/TRUE AP/OTHER RIGHT Radiology Comment on above: XR SHOULDER GENERAL 3V OR MORE AP/TRUE A P/OTHER RIGHT Start: 12-26-2024 End: 12-26-2024 Admission to same day surgery center 12/26/2024 3:55 PM EDT - 12/26/2024 7:55 PM EDT Surgery Admitting [address] [place] [address] Hung Jacobsen MD [address] [place] [address] ARTHROPLASTY REPLACE JOINT TOTAL SHOULDER Admitting Comment on above: ARTHROPLASTY REPLACE JOINT TOTAL SHOULDE R Start: 12-26-2024 End: 12-26-2024 Arthroplasty glenohumeral joint total shoulder ARTHROPLASTY REPLACE JOINT TOTAL SHOULDER Chronic right shoulder pain 12/26/2024 3:55 PM EDT [facility] Start: 12-26-2024 Subsequent hospital visit by physician 12/26/2024 3:55 PM EDT Hospital Encounter Admitting [address] [place] [address] Hung Jacobsen MD [address] [place] [address] Chronic right shoulder pain [M25.511, G89.29] Admitting Comment on above: Chronic right shoulder pain [M25.511, G8 9.29] Start: 12-24-2024 End: 12-24-2024 Patient encounter procedure 12/24/2024 9:45 AM EDT Office Visit [facility] [address] [place] [address] 1 [place] [address] Armando Richards MD [address] [place] [address], [address] [place], [place] [phone] [facility] Start: 12-16-2024 End: 12-16-2024 Admission to same day surgery center 12/16/2024 12:10 PM EDT - 12/16/2024 3:50 PM EDT Surgery [facility] [address] [place], [place] [id number] Hung Jacobsen MD [address] [place] [address] ARTHROPLASTY REPLACE JOINT TOTAL SHOULDER [facility] Comment on above: ARTHROPLASTY REPLACE JOINT TOTAL SHOULDE R Start: 12-16-2024 End: 12-16-2024 Arthroplasty glenohumeral joint total shoulder ARTHROPLASTY REPLACE JOINT TOTAL SHOULDER Chronic right shoulder pain 12/16/2024 12:10 PM EDT [facility] Start: 12-16-2024 Subsequent hospital visit by physician 12/16/2024 12:10 PM EDT Hospital Encounter [facility] [address] [place] [address] Hung Jacobsen MD [address] [place] [address] Chronic right shoulder pain [M25.511, G89.29] [facility] Comment on above: Chronic right shoulder pain [M25.511, G8 9.29] Start: 12-12-2024 End: 12-12-2024 Patient encounter procedure 12/12/2024 11:30 AM EDT Office Visit Financial Clearance Phone Screening [id number] REGISTRATION Financial Clearance Phone Screening Comment on above: REGISTRATION Start: 12-09-2024 Adult BMI Screening Adult BMI Screening [facility] Start: 12-09-2024 Tobacco Screening Tobacco Screening [facility] Start: 12-05-2024 End: 03-06-2025 CBC W Auto Differential panel - Blood COMPLETE BLOOD COUNT AND DIFFERENTIAL Lab Routine Chronic right shoulder pain Pre-op testing Expected: 12/05/2024, Expires: 03/06/2025 [facility] Comment on above: Expected: 12/05/2024, Expires: Start: 12-05-2024 End: 03-06-2025 Comprehensive metabolic 2000 panel - Serum or Plasma COMPREHENSIVE METABOLIC PANEL Lab Routine Chronic right shoulder pain Pre-op testing Expected: 12/05/2024, Expires: 03/06/2025 [facility] Comment on above: Expected: 12/05/2024, Expires: Start: 12-05-2024 End: 03-06-2025 TYPE AND SCREEN,30 DAY TYPE AND SCREEN,30 DAY Blood Bank Routine Chronic right shoulder pain Pre-op testing Expected: 12/05/2024, Expires: 03/06/2025 [facility] Comment on above: Expected: 12/05/2024, Expires: Start: 12-04-2024 End: 12-04-2024 Patient encounter procedure 12/04/2024 1:30 PM EDT Appointment [facility] Rad[facility] CT Scan [address] [address] CT SHOULDER WO IVCON RIGHT [facility] Radiology CT Scan Comment on above: CT SHOULDER WO IVCON RIGHT Start: 12-04-2024 End: 12-04-2024 Patient encounter procedure Pre Anesthesia Comment on above: PACC/EKG/LABS XR CHEST 2V FRONTAL/ LAT Start: 12-02-2024 End: 12-02-2024 Patient encounter procedure 12/02/2024 10:15 AM EDT [facility] [address] [place] [phone] Adriana Lopez, DO [address] [place] [address] [facility] [place] Start: 11-29-2024 End: 11-29-2024 Patient encounter procedure [facility] Start: 11-28-2024 End: 11-28-2024 Patient encounter procedure [facility] Start: 11-26-2024 Adult BMI Screening Adult BMI Screening [facility] Start: 11-26-2024 Tobacco Screening Tobacco Screening [facility] Start: 11-26-2024 End: 11-26-2024 Patient encounter procedure 11/26/2024 11:00 AM EDT Appointment [facility] [address] [place] [phone] Julio Quispe MD [address], [facility] [address] [place] [address] [facility] [place] [facility] Start: 11-05-2024 Covid-19 Vaccine ( season) Covid-19 Vaccine ( season) [facility] Start: 10-29-2024 Bacteria identified in Urine by Culture Urine Culture [facility] Start: 10-29-2024 Urine culture [facility] Start: 10-24-2024 End: 10-24-2024 Patient encounter procedure 10/24/2024 1:00 PM EDT Office Visit [facility] [address] [facility] [address] [place] [address] Manan Baker DPM [address] [facility] 5 [place] [address] [facility] Start: 10-15-2024 End: 10-15-2024 Patient encounter procedure Radiology Comment on above: left shoulder xr 6 wk Surgical post o p Start: 09-24-2024 Hemoglobin A1c measurement HbA1C [facility] Start: 09-19-2024 Adult BMI Screening Adult BMI Screening [facility] Start: 09-19-2024 Tobacco Screening Tobacco Screening [facility] Start: 09-16-2024 Subsequent hospital visit by physician 09/16/2024 Hospital Encounter [facility] [address] [address] Hung Jacobsen MD [address] [place], [place] [id number] Chronic left shoulder pain [M25.512, G89.29] [facility] Comment on above: Chronic left shoulder pain [M25.512, G89 .29] Start: 09-03-2024 End: 09-03-2024 Patient encounter procedure Radiology Comment on above: post op xray left shoulder 6 wk Surgical post o p Start: 09-02-2024 End: 12-02-2024 CBC W Auto Differential panel - Blood COMPLETE BLOOD COUNT AND DIFFERENTIAL Lab Routine Chronic left shoulder pain Pre-operative clearance Expected: 09/02/2024, Expires: 12/02/2024 [facility] Comment on above: Expected: 09/02/2024, Expires: Start: 09-02-2024 End: 12-02-2024 Comprehensive metabolic 2000 panel - Serum or Plasma COMPREHENSIVE METABOLIC PANEL Lab Routine Chronic left shoulder pain Pre-operative clearance Expected: 09/02/2024, Expires: 12/02/2024 [facility] Comment on above: Expected: 09/02/2024, Expires: Start: 09-02-2024 End: 12-02-2024 TYPE AND SCREEN,30 DAY TYPE AND SCREEN,30 DAY Blood Bank Routine Chronic left shoulder pain Pre-operative clearance Expected: 09/02/2024, Expires: 12/02/2024 [facility] Comment on above: Expected: 09/02/2024, Expires: Start: 08-27-2024 End: 08-27-2024 Patient encounter procedure 08/27/2024 2:00 PM EST Office Visit [facility] [address] [place] [address] Mahesh Small MD [address] [place] [address] 6 month follow up [facility] Comment on above: 6 month follow up Start: 08-22-2024 End: 03-21-2025 XR Thoracic and lumbar spine Views for scoliosis W standing XR SCOLIOSIS PA STAND/LAT 2V Radiology Routine S/P lumbar fusion Flat back syndrome, postprocedural Pseudarthrosis following spinal fusion Expected: 08/22/2024 (Approximate), Expires: 03/21/2025 [facility] Work Phone: Comment on above: Expected: 08/22/2024 (Approximate), Expi res: 03/21/2025 Start: 08-15-2024 End: 08-15-2024 Patient encounter procedure 08/15/2024 3:30 PM EST Office Visit [facility] [address] [place] [address] [place] [phone] Manan Baker DPM [address] [address] [facility] Start: 08-14-2024 Advance Directive Discussion Advance Directive Discussion [facility] Start: 08-08-2024 End: 08-08-2024 Patient encounter procedure Xray [facility] Comment on above: post op xray left shoulder Surgical post op Start: 07-25-2024 End: 07-25-2024 Admission to same day surgery center 07/25/2024 3:50 PM EST - 07/25/2024 7:25 PM EST Surgery Admitting [address] [place] [address] Hung Jacobsen MD [address] [place] [address] ARTHROPLASTY REPLACE JOINT TOTAL SHOULDER Admitting Comment on above: ARTHROPLASTY REPLACE JOINT TOTAL SHOULDE R Start: 07-25-2024 End: 07-25-2024 Arthroplasty glenohumeral joint total shoulder ARTHROPLASTY REPLACE JOINT TOTAL SHOULDER Chronic left shoulder pain 07/25/2024 3:50 PM EST [facility] Start: 07-25-2024 Subsequent hospital visit by physician 07/25/2024 3:50 PM EST Hospital Encounter Admitting [address] [place] [address] Hung Jacobsen MD [address] [place] [address] Chronic left shoulder pain [M25.512, G89.29] Admitting Comment on above: Chronic left shoulder pain [M25.512, G89 .29] Start: 07-23-2024 End: 07-23-2024 Patient encounter procedure 07/23/2024 1:00 PM EST Office [place] [address] REGISTRATION Financial Clear[employer] Phone Screening Comment on above: REGISTRATION Start: 07-22-2024 End: 10-21-2024 Ferritin [Mass/volume] in Serum or Plasma [facility] Comment on above: Expected: 07/22/2024, Expires: Start: 07-22-2024 End: 10-21-2024 Iron and Iron binding capacity panel - Serum or Plasma [facility] [employer] Work Phone: Comment on above: Expected: 07/22/2024, Expires: Start: 07-22-2024 End: 07-22-2024 Anesthesia consultation Pre Anesthesia Comment on above: PACC/EKG Pre-op evaluation (P rimary Dx); Chronic left shoulder pain; Pre-operative clearance; Obstructive sleep apnea syndrome; Mixed hyperlipidemia; Elevated BP without diagnosis of hypertension; Chronic obstructive pulmonary disease, unspecified COPD type (HCC); Former smoker; Gastroesophageal reflux disease without esophagitis; Calculus of kidney; Type 2 diabetes mellitus without complication, without long-term current use of insulin (HCC); Cerebrovascular accident (CVA), unspecified mechanism (HCC); Stenosis of carotid artery, unspecified laterality Surgeon ordered EKG Start: 07-22-2024 End: 07-22-2024 ambulatory 07/22/2024 11:15 AM EST Results Only [facility] [address] [place] [address] (D) PRE OP [facility] Comment on above: (D) PRE OP Start: 07-22-2024 End: 07-22-2024 Patient encounter procedure Radiology Ct Scan Comment on above: CT SHOULDER WO IVCON LEFT XR CHEST 2V FRONTAL/ LAT Start: 07-19-2024 End: 10-18-2024 CBC W Auto Differential panel - Blood COMPLETE BLOOD COUNT AND DIFFERENTIAL Lab Routine Chronic left shoulder pain Pre-op testing Expected: 07/19/2024 (Approximate), Expires: 10/18/2024 [facility] Comment on above: Expected: 07/19/2024 (Approximate), Expi res: 10/18/2024 Start: 07-19-2024 End: 10-18-2024 Comprehensive metabolic 2000 panel - Serum or Plasma COMPREHENSIVE METABOLIC PANEL Lab Routine Chronic left shoulder pain Pre-op testing Expected: 07/19/2024 (Approximate), Expires: 10/18/2024 [facility] Comment on above: Expected: 07/19/2024 (Approximate), Expi res: 10/18/2024 Start: 07-19-2024 End: 10-18-2024 TYPE AND SCREEN,30 DAY TYPE AND SCREEN,30 DAY Blood Bank Routine Chronic left shoulder pain Pre-op testing Expected: 07/19/2024, Expires: 10/18/2024 [facility] Comment on above: Expected: 07/19/2024, Expires: Start: 06-18-2024 End: 06-18-2024 Patient encounter procedure 06/18/2024 2:30 PM EST Office Visit Orthopaedics [address] [facility] [place] [address] Hung Jacobsen MD [address] [place] [address] BILATERAL INJECTIONS Orthopaedics Comment on above: BILATERAL INJECTIONS Start: 06-06-2024 End: 06-06-2024 Patient encounter procedure 06/06/2024 2:30 PM EDT Office Visit [facility] [address] [facility] [address] [place] [address] Manan Baker DPM [address] [facility] 5 [place] [address] Type 2 diabetes mellitus without complication, with long-term current use of insulin (CMS/HCC) (Primary Dx); Pain due to onychomycosis of toenails of both feet [facility] Comment on above: Type 2 diabetes mellitus without complic ation, with long-term current use of insulin (CMS/HCC) (Primary Dx); Pain due to onychomycosis of toenails of both feet Start: 05-29-2024 End: 05-29-2024 Patient encounter procedure 05/29/2024 9:00 AM EDT Office Visit [facility] [address] [place] [address] 1 [place] [address] Armando Richards MD [address] [place] [address], [address] [place], [place] [id number] [facility] Start: 05-28-2024 Hemoglobin A1c measurement HbA1C [facility] Start: 05-28-2024 End: 05-28-2025 US Carotid arteries - bilateral Vas carotid duplex bilateral Vascular Ultrasound Routine Bilateral carotid artery stenosis Expected: 05/28/2024, Expires: 05/28/2025 [facility] Work Phone: Comment on above: Expected: 05/28/2024, Expires: Start: 05-26-2024 Adult BMI Screening Adult BMI Screening [facility] Start: 05-26-2024 Medicare Annual Wellness Visit Medicare Annual Wellness Visit [facility] Start: 05-26-2024 Tobacco Screening Tobacco Screening [facility] Start: 05-24-2024 Depression Screening Depression Screening [facility] Start: 05-24-2024 Fall Risk Screening Fall Risk Screening [facility] Start: 05-21-2024 End: 05-21-2024 Patient encounter procedure 05/21/2024 11:00 AM EDT Office Visit [facility] [address] [place] [address] Julio Quispe MD [address] [address] [facility] Start: 05-01-2024 End: 05-01-2025 Event Monitor (In Office) [facility] Work Phone: Comment on above: Expected: 05/01/2024, Expires: Start: 04-25-2024 End: 04-25-2024 Patient encounter procedure 04/25/2024 9:30 AM EDT Office Visit [facility] [address] [place] [address] [facility] Start: 04-14-2024 COVID-19 Vaccine ( season) COVID-19 Vaccine ( season) [facility] Start: 04-14-2024 Influenza vaccination [facility] Start: 03-27-2024 End: 03-27-2025 Event Monitor (In Office) [facility] Work Phone: Comment on above: Expected: 03/27/2024, Expires: Start: 03-25-2024 End: 03-25-2025 Event monitor Event monitor Cardiac Services Routine Cerebrovascular accident (CVA), unspecified mechanism ([facility]-H[facility]) Expected: 03/25/2024, Expires: 03/25/2025 [facility] Work Phone: Comment on above: Expected: 03/25/2024, Expires: Start: 02-23-2024 End: 02-23-2024 Patient encounter procedure 02/23/2024 2:00 PM EDT Office Visit Orthopaedics [address] [address] Hung Jacobsen MD [address] [place] [address] BILATERAL INJECTIONS Orthopaedics Comment on above: BILATERAL INJECTIONS Start: 01-30-2024 Hemoglobin A1c measurement HbA1C [facility] Start: 11-27-2023 End: 11-27-2023 Patient encounter procedure 11/27/2023 10:15 AM EDT Office Visit [facility] [address] [place] [address] Armando Richards MD [address] [place] [address], 1 [place], [place] [phone] [facility] Start: 09-15-2023 Covid-19 Vaccine () Covid-19 Vaccine () [facility] Start: 08-14-2023 Advance Directive Discussion Advance Directive Discussion [facility] Start: 08-14-2023 Behavioral Health Screening Behavioral Health Screening [facility] Start: 08-14-2023 Depression Assessment Depression Assessment [facility] Start: 05-04-2023 [facility] Start: 04-14-2023 Covid-19 Vaccine () Covid-19 Vaccine () [facility] Start: 04-14-2023 Influenza vaccination [facility] Start: 02-02-2023 [facility] Start: 11-07-2022 [facility] Start: 10-10-2022 COVID-19 VACCINE (6 - Moderna series) COVID-19 VACCINE (6 - Moderna series) [facility] Start: 08-14-2022 ADVANCE DIRECTIVE DISCUSSION ADVANCE DIRECTIVE DISCUSSION [facility] Start: 08-14-2022 DEPRESSION ASSESSMENT DEPRESSION ASSESSMENT [facility] Start: 07-22-2022 Hepatitis B screening Urine Albumin:Creatinine Ratio [facility] Start: 04-14-2022 Influenza vaccination INFLUENZA (#1) [facility] Start: 02-25-2022 COVID-19 VACCINE (5 - Booster for Moderna series) COVID-19 VACCINE (5 - Booster for Moderna series) [facility] Start: 09-14-2021 Excision of Lumbar Vertebral Disc, Open Approach Excision of Lumbar Vertebral Disc, Open Approach [facility] Start: 09-14-2021 Excision of Thoracolumbar Vertebral Disc, Open Approach Excision of Thoracolumbar Vertebral Disc, Open Approach [facility] Start: 09-14-2021 Fusion of 2 or more Lumbar Vertebral Joints with Interbody Fusion Device, Anterior Approach, Anterior Column, Open Approach [facility] Start: 09-14-2021 Fusion of 2 or more Lumbar Vertebral Joints with Synthetic Substitute, Posterior Approach, Posterior Column, Open Approach [facility] Start: 09-14-2021 Fusion of Thoracolumbar Vertebral Joint with Interbody Fusion Device, Anterior Approach, Anterior Column, Open Approach [facility] Start: 09-14-2021 Fusion of Thoracolumbar Vertebral Joint with Synthetic Substitute, Posterior Approach, Posterior Column, Open Approach [facility] Start: 09-14-2021 Introduction of Recombinant Bone Morphogenetic Protein into Joints, [facility] Approach [facility] Start: 08-14-2021 ADVANCE DIRECTIVE DISCUSSION ADVANCE DIRECTIVE DISCUSSION [facility] Start: 08-14-2021 DEPRESSION ASSESSMENT DEPRESSION ASSESSMENT [facility] Start: 04-09-2020 Pneumococcal Vaccine: 65+ (2 - PPSV23 or PCV20) Pneumococcal Vaccine: 65+ (2 - PPSV23 or PCV20) [facility] Start: 04-09-2020 Pneumococcal Vaccine: 65+ Years (2 of 2 - PPSV23 or PCV20) Pneumococcal Vaccine: 65+ Years (2 of 2 - PPSV23 or PCV20) [facility] Start: 06-04-2019 Pneumococcal Vaccine: 50+ (2 of 2 - PPSV23) Pneumococcal Vaccine: 50+ (2 of 2 - PPSV23) [facility] Start: 06-04-2019 Pneumococcal Vaccine: 65+ (2 of 2 - PPSV23 or PCV20) Pneumococcal Vaccine: 65+ (2 of 2 - PPSV23 or PCV20) [facility] Start: 02-06-2009 Abdominal aortic aneurysm screening Abdominal Aortic Aneurysm (AAA) Screen [facility] Start: 02-06-2009 Pneumococcal Vaccine: 65+ (1 - PCV) Pneumococcal Vaccine: 65+ (1 - PCV) [facility] Start: 02-06-2009 PNEUMOCOCCAL: 65+ (1 - PCV) PNEUMOCOCCAL: 65+ (1 - PCV) [facility] Start: 2004 RSV Vaccine (1 - 1-dose 60+ series) RSV Vaccine (1 - 1-dose 60+ series) [facility] Start: 02-06-1994 SHINGRIX VACCINE (1 of 2) SHINGRIX VACCINE (1 of 2) [facility] Start: 02-06-1989 DIABETES SCREEN DIABETES SCREEN [facility] Start: 02-06-1989 Diabetes Screening Diabetes Screening [facility] Start: 02-06-1963 Urine microalbumin profile [facility] Start: 02-06-1962 Adult BMI Follow Up Plan Adult BMI Follow Up Plan [facility] Start: 02-06-1962 Annual PCP Team Chronic Disease Visit Annual PCP Team Chronic Disease Visit [facility] Start: 02-06-1962 Anxiety Screening Anxiety Screening [facility] Start: 02-06-1962 Depression Screening Depression Screening [facility] Start: 02-06-1962 Hepatitis B surface antibody level LDL Cholesterol [facility] Start: 02-06-1962 HEPATITIS C SCREENING HEPATITIS C SCREENING [facility] Start: 02-06-1962 Spirometry Spirometry [facility] Start: 1956 Adult depression screening assessment DEPRESSION SCREENING [facility] Start: 02-06-1954 Diabetic foot examination Diabetic Foot Exam [facility] Start: 02-06-1954 Glaucoma screening Dilated Retinal Exam [facility] Arthroplasty glenohu meral joint total shoulder ARTHROPLASTY REPLACE JOINT TOTAL SHOULDER Chronic left shoulder pain [facility] OR Bedside Glucose *Place/Obtain serum glucose if >500(>600 [facility]) per glucometer. Bedside Glucose *Place/Obtain serum glucose if >500(>600 [facility]) per glucometer. Point of Care Testing Routine 4X Daily (AC and at bedtime) until discontinued starting 03/24/2024, 4 completed [facility] Work Phone: Comment on above: 4X Daily (AC and at bedtime) until disco ntinued starting 03/24/2024, 4 completed End: 01-12-2024 Ct lumbar spine w/o contrast material CT LUMBAR SPINE WO IVCON Radiology Routine S/P lumbar spinal fusion Flat back syndrome, postprocedural 1 Occurrences starting 12/13/2022 until 01/12/2024 [facility] Work Phone: Comment on above: 1 Occurrences starting 12/13/2022 until 01/12/2024 End: 07-18-2025 CT Shoulder - left WO contrast CT SHOULDER WO IVCON LEFT Radiology Routine Chronic left shoulder pain 1 Occurrences starting 06/18/2024 until 07/18/2025 [facility] Work Phone: Comment on above: 1 Occurrences starting 06/18/2024 until 07/18/2025 CT Shoulder - left W O contrast CT SHOULDER WO IVCON LEFT Radiology Routine Chronic left shoulder pain 07/22/2024 10:26 AM [employer] [facility] Work Phone: End: 11-15-2025 CT Shoulder - right WO contrast CT SHOULDER WO IVCON RIGHT Radiology Routine Chronic right shoulder pain Glenohumeral arthritis, right 1 Occurrences starting 10/15/2024 until 11/15/2025 [facility] Work Phone: Comment on above: 1 Occurrences starting 10/15/2024 until 11/15/2025 End: 07-02-2025 ECG COMPLETE ECG COMPLETE ECG Routine Chronic left shoulder pain Pre-operative clearance 1 Occurrences starting 07/02/2024 until 07/02/2025 [facility] Comment on above: 1 Occurrences starting 07/02/2024 until 07/02/2025 ECG COMPLETE ECG COMPLETE ECG 07/22/2024 2:07 PM [employer] [facility] [employer] End: 10-29-2025 ECG COMPLETE ECG COMPLETE ECG Routine Chronic right shoulder pain Pre-op testing 1 Occurrences starting 10/29/2024 until 10/29/2025 [facility] Comment on above: 1 Occurrences starting 10/29/2024 until 10/29/2025 Electrocardiogram EKG BIC Routin e 07/31/2023 11:07 AM EST [facility] End: 01-26-2023 EMG(NEURO/NI) EMG(NEURO/NI) EMG Routine S/P lumbar spinal fusion Quadriceps weakness Atrophy of quadriceps femoris muscle Left thigh pain Spinal stenosis of lumbar region, unspecified whether neurogenic claudication present Lumbar radiculopathy, chronic 1 Occurrences starting 01/26/2022 until 01/26/2023 [facility] Work Phone: Comment on above: 1 Occurrences starting 01/26/2022 until 01/26/2023 Oxygen Therapy - An ntain SpO2: 90%; *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 Guidelines for O2: Yes; Document: \[email or web address].Sinbad: [email or web address]\epic\ EPIC_Reference\Orders\Resp iratory Care Guidelines\CPG Oxygen 2022.pdf Oxygen Therapy - Maintain SpO2: 90%; *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 Guidelines for O2: Yes; Document: \[email or web address].org\ep ic\EPIC_Reference\Order s\Respiratory Care Guidelines\CPG Oxygen 2022.pdf Respiratory Care Routine As Needed until discontinued starting 03/24/2024 [facility] Comment on above: As Needed until discontinued starting Patient Education [facility] Work Phone: Patient referral [facility] Work Phone: Protein electrophore sis, serum Protein electrophoresis, serum Lab Routine 03/25/2024 4:54 AM EDT [facility] PT PLAN OF CARE CERTIFICATION PT PLAN OF CARE CERTIFICATION Procedures Routine Chronic right shoulder pain Ordered: 03/13/2023 [facility] Work Phone: Comment on above: Ordered: 03/13/2023 End: 06-19-2023 Radex spine lumbosacral 2/3 views XR LUMBAR LIMITED 2V AP/LAT Radiology Routine S/P lumbar fusion 1 Occurrences starting 05/20/2022 until 06/19/2023 [facility] Work Phone: Comment on above: 1 Occurrences starting 05/20/2022 until 06/19/2023 End: 05-05-2024 Radex spine lumbosacral 2/3 views XR LUMBAR LIMITED 2V AP/LAT Radiology Routine Chronic low back pain, unspecified back pain laterality, unspecified whether sciatica present 1 Occurrences starting 11/17/2022 until 12/17/2023 [facility] Work Phone: Comment on above: 1 Occurrences starting 11/17/2022 until 12/17/2023 US Carotid arteries - bilateral Vas carotid duplex bilateral Vascular Ultrasound Routine 03/25/2024 2:53 PM EDT [facility] US SHOULDER RT (POC) MICHAEL USE ONLY US SHOULDER RT (POC) MICHAEL USE ONLY Imaging Diagnostic Routine Glenohumeral arthritis, right Decreased range of motion of right shoulder Chronic right shoulder pain Ordered: 03/08/2023 [facility] Work Phone: Comment on above: Ordered: 03/08/2023 End: 08-01-2025 XR Chest PA and Lateral XR CHEST 2V FRONTAL/LAT Radiology Routine Chronic left shoulder pain Pre-operative clearance 1 Occurrences starting 07/02/2024 until 08/01/2025 [facility] Comment on above: 1 Occurrences starting 07/02/2024 until 08/01/2025 End: 11-28-2025 XR Chest PA and Lateral XR CHEST 2V FRONTAL/LAT Radiology Routine Chronic right shoulder pain Pre-op testing 1 Occurrences starting 10/29/2024 until 11/28/2025 [facility] Comment on above: 1 Occurrences starting 10/29/2024 until 11/28/2025 End: 12-13-2024 XR Shoulder - left 3 Views XR SHOULDER GENERAL 3V OR MORE AP/TRUE AP/OTHER LEFT Radiology Routine Pain 1 Occurrences starting 11/14/2023 until 12/13/2024 [facility] Work Phone: Comment on above: 1 Occurrences starting 11/14/2023 until 12/13/2024 End: 08-01-2025 XR Shoulder - left 3 Views XR SHOULDER GENERAL 3V OR MORE AP/TRUE AP/OTHER LEFT Radiology Routine Chronic left shoulder pain 1 Occurrences starting 07/02/2024 until 08/01/2025 [facility] Work Phone: Comment on above: 1 Occurrences starting 07/02/2024 until 08/01/2025 End: 08-18-2025 XR Shoulder - left 3 Views XR SHOULDER GENERAL 3V OR MORE AP/TRUE AP/OTHER LEFT Radiology Routine Chronic left shoulder pain 1 Occurrences starting 07/19/2024 until 08/18/2025 [facility] Work Phone: Comment on above: 1 Occurrences starting 07/19/2024 until 08/18/2025 End: 09-07-2025 XR Shoulder - left 3 Views XR SHOULDER GENERAL 3V OR MORE AP/TRUE AP/OTHER LEFT Radiology Routine Aftercare following left shoulder joint replacement surgery 1 Occurrences starting 08/08/2024 until 09/07/2025 [facility] Work Phone: Comment on above: 1 Occurrences starting 08/08/2024 until 09/07/2025 End: 10-03-2025 XR Shoulder - left 3 Views XR SHOULDER GENERAL 3V OR MORE AP/TRUE AP/OTHER LEFT Radiology Routine Aftercare following left shoulder joint replacement surgery 1 Occurrences starting 09/03/2024 until 10/03/2025 [facility] Work Phone: Comment on above: 1 Occurrences starting 09/03/2024 until 10/03/2025 End: 12-13-2024 XR Shoulder - right 3 Views XR SHOULDER GENERAL 3V OR MORE AP/TRUE AP/OTHER RIGHT Radiology Routine Pain 1 Occurrences starting 11/14/2023 until 12/13/2024 [facility] Work Phone: Comment on above: 1 Occurrences starting 11/14/2023 until 12/13/2024 End: 08-18-2025 XR Shoulder - right 3 Views XR SHOULDER GENERAL 3V OR MORE AP/TRUE AP/OTHER RIGHT Radiology Routine Chronic left shoulder pain 1 Occurrences starting 07/19/2024 until 08/18/2025 [facility] Comment on above: 1 Occurrences starting 07/19/2024 until 08/18/2025 End: 11-28-2025 XR Shoulder - right 3 Views XR SHOULDER GENERAL 3V OR MORE AP/TRUE AP/OTHER RIGHT Radiology Routine Chronic right shoulder pain 1 Occurrences starting 10/29/2024 until 11/28/2025 [facility] Work Phone: Comment on above: 1 Occurrences starting 10/29/2024 until 11/28/2025 XR Shoulder - right 3 Views XR SHOULDER GENERAL 3V OR MORE AP/TRUE AP/OTHER RIGHT Radiology Routine Chronic right shoulder pain 12/30/2024 10:03 AM EDT [facility] Work Phone: End: 01-20-2024 XR SHOULDER GENERAL 3V OR MORE AP/TRUE AP/OTHER RIGHT XR SHOULDER GENERAL 3V OR MORE AP/TRUE AP/OTHER RIGHT Radiology Routine Pain 1 Occurrences starting 12/21/2022 until 01/20/2024 [facility] Work Phone: Comment on above: 1 Occurrences starting 12/21/2022 until 01/20/2024 XR Thoracic and lumb ar spine Views for scoliosis W standing XR SCOLIOSIS PA STAND/LAT 2V Radiology Routine S/P lumbar fusion Flat back syndrome, postprocedural Pseudarthrosis following spinal fusion 08/27/2024 2:18 PM EST [facility] Work Phone: [facility] Immunizations Immunization Date Immunization Notes Care Provider [facility] 05-08-2024 influenza virus vaccine, unspecified formulation Olu Sosa [facility] 05-08-2024 Seasonal trivalent influenza vaccine, adjuvanted, preservative free Julio Quispe MD Work Phone: [facility] 11-11-2023 RSV, recombinant, protein subunit RSVpreF, adjuvant reconstituted, 0.5 mL, PF Uyen Gresham [facility] 05-15-2023 Influenza, High-dose , Quadrivalent Julio Quispe MD Work Phone: [facility] 05-15-2023 influenza virus vaccine, unspecified formulation Lilli Wu [facility] 06-09-2022 influenza virus vaccine, unspecified formulation Olu Sosa [facility] 06-09-2022 Influenza, High-dose , Quadrivalent Julio Quispe MD Work Phone: [facility] 06-09-2022 SARS-CoV-2 (COVID-19 ) [id number] Olu Sosa [facility] 12-31-2021 SARS-CoV-2 mRNA (ivexvfksgak-vehh-jwanf se) vaccine Olu Sosa [facility] 06-12-2021 COVID-19 mRNA Comirnatdivine (Pfizer) MD Armando Richards Work Phone: [facility] Comment on above: Result Comment: 2021: [id number] Result Comment: 2021: [id number] 05-01-2021 influenza virus vaccine, unspecified formulation Olu Sosa [facility] 05-01-2021 Influenza, High-dose , Quadrivalent Lilli Wu [facility] 10-09-2020 COVID-19 mRNA-1273 (Moderna) MD Armando Richards Work Phone: [facility] 09-11-2020 COVID-19 mRNA-1273 (Moderna) MD Armando Richards Work Phone: [facility] 04-24-2020 influenza nasal, unspecified formulation Conchis Acosta RT(R) [facility] 04-24-2020 influenza virus vaccine, unspecified formulation Olu Sosa [facility] 04-24-2020 Influenza, High-dose , Quadrivalent Lilli Wu [facility] 04-14-2020 influenza nasal, unspecified formulation Conchis Acosta RT(R) [facility] 04-14-2020 influenza virus vaccine, unspecified formulation Olu Lue [facility] 04-14-2020 influenza, high dose seasonal, preservative-free Armando Richards MD Work Phone: [facility] 04-11-2019 zoster vaccine recombinant Olu Lue [facility] 04-09-2019 AS03 adjuvant Conchis mccauley RT(R) [facility] 04-09-2019 influenza virus vaccine, unspecified formulation Olu Lue [facility] 04-09-2019 pneumococcal conjuga te vaccine, 13 valent Olu Lue [facility] 04-09-2019 Seasonal trivalent influenza vaccine, adjuvanted, preservative free Lilli Jazmin [facility] 11-30-2018 tetanus toxoid, redu luis diphtheria toxoid, and acellular pertussis vaccine, adsorbed Olu Lue [facility] 11-30-2018 zoster vaccine recombinant Olu Lue [facility] 06-02-2018 influenza virus vaccine, unspecified formulation Olu Lue [facility] 06-02-2018 influenza, high dose seasonal, preservative-free Lilli Jazmin [facility] 05-29-2017 influenza nasal, unspecified formulation Conchis Acosta RT(R) [facility] 05-29-2017 influenza virus vaccine, unspecified formulation Olu Lue [facility] 05-29-2017 influenza, seasonal, injectable, preservative free Lilli Jazmin [facility] 05-09-2016 influenza virus vaccine, unspecified formulation Olu Lue [facility] 05-09-2016 influenza, high dose seasonal, preservative-free Lilli Jazmin [facility] 05-22-2015 influenza virus vaccine, unspecified formulation Olu Lue [facility] 05-22-2015 influenza, seasonal, injectable, preservative free Lilli Jazmin [facility] 05-08-2013 influenza virus vaccine, whole virus Lilli Jazmin [facility] 05-08-2013 influenza, whole Olu Lue [facility] 05-26-2010 influenza virus vaccine, whole virus Lilli Jazmin [facility] 05-26-2010 influenza, whole Olu Lue [facility] Payers Date Payer Category Payer Self-pay [id number] 2020 Private Health Insurance [id number] 2020 Unknown MMO MMO MEDICARE SUPPLEMENT [id number] 2020-Present [phone] [address] [place] [address] Indemnity [id number] 2016 Commercial Indemnity [facility] [id number] 2016 Unknown [id number] 1.13.159.2. [id number] 2009 Medicare MEDICARE MEDICAR E A AND B [id number] 2009-Present [phone] [address] [address] [place] [address] Medicare [id number]. [id number] 2009 Medicare [id number]. 1.13.159.2. [id number] 1959 Medicare [id number] 1959 Unknown [id number] 1944 Unknown [id number] 2.16.840.1.054286.3.579.2. 647 1944 Unknown [id number] 2.16.840.1.506481.3.579.2. 647 1944 Unknown [id number] 2.16.840.1.322404.3.579.2. 647 1944 Unknown [id number] 2.16.840.1.965473.3.579.2. 647 1944 Unknown [id number] 2.16.840.1.822792.3.579.2. 647 1944 Unknown [id number] 2.16.840.1.757693.3.579.2. 647 1944 Unknown [id number] 2.16.840.1.222670.3.579.2. 593 1944 Unknown [id number] 2.16.840.1.965563.3.579.2. 593 1944 Unknown [id number] 2.16.840.1.385323.3.579.2. 593 1944 Unknown [id number] 2.16.840.1.469798.3.579.2. 593 1944 Unknown [id number] 2.16.840.1.913240.3.579.2. 593 1944 Unknown [id number] 2.16.840.1.548657.3.579.2. 1286 1944 Unknown [id number] 2.16.840.1.442765.3.579.2. 1286 1944 Unknown [id number] 2.16.840.1.791254.3.579.2. 1286 1944 Unknown [id number] 2.16840.1.296310.3.579.2. 1259 1944 Unknown [id number] 2.16840.1.167572.3.579.2. 1259 1944 Unknown [id number] 2.16840.1.013991.3.579.2. 1259 1944 Unknown [id number] 2.16.840.1.559147.3.579.2. 1259 1944 Unknown [id number] 2.16840.1.306007.3.579.2. 1259 1944 Unknown [id number] 2.16.840.1.031810.3.579.2. 727 1944 Unknown [id number] 2.16.840.1.697156.3.579.2. 727 1944 Unknown [id number] 2.16.840.1.326163.3.579.2. 727 1944 Unknown [id number] 2.16.840.1.803336.3.579.2. 727 1944 Unknown [id number] 2.16.840.1.979665.3.579.2. 727 1944 Unknown [id number] 2.16.840.1.766456.3.579.2. 727 1944 Unknown [id number] 2.16.840.1.576726.3.579.2. 128 1944 Unknown [id number] 2.16840.1.507565.3.579.2. 1285 1944 Unknown [id number] 2.16.840.1.030335.3.579.2. 1285 1944 Unknown [id number] 2.16840.1.532064.3.579.2. 1285 1944 Unknown [id number] 2.840.1.788123.3.579.2. 1285 1944 Unknown [id number] 2.16840.1.157090.3.579.2. 1285 1944 Unknown [id number] 2.840.1.465906.3.579.2. 1285 1944 Unknown [id number] 2.16840.1.227261.3.579.2. 1285 1944 Unknown [id number] 2.840.1.815264.3.579.2. 1285 1944 Unknown [id number] 2.16840.1.633201.3.579.2. 128 1944 Unknown [id number] 2.16840.1.987705.3.579.2. 1285 1944 Unknown [id number] 2.16.840.1.964602.3.579.2. 1285 1944 Unknown [id number] 2.16840.1.475792.3.579.2. 1285 1944 Unknown [id number] 2.16.840.1.763101.3.579.2. 1286 Unknown [id number] 2.16.840.1.389012.3.579.2. 531 Social History Date Type Detail Facility Start: 11-03-2021 End: 07-22-2024 Tobacco smoking status Ex-smoker (finding) [facility] [employer] Other Start: 03-08-2023 End: 08-24-2023 Sex Assigned At Male [facility] [employer] Other Start: 1945 Sex Assigned At Male [facility] Start: 08-14-1968 End: 08-14-1992 History of tobacco use Cigarette Smoker [facility] Start: 01-26-2022 End: 08-24-2023 Cigarettes smoked current (pack per day) - Reported 0.5 [facility] Start: 01-26-2022 End: 07-22-2024 Tobacco use and exposure Smokeless tobacco non-user [facility] Start: 01-26-2022 End: 12-04-2024 Alcohol intake Current drinker of alcohol (finding) [facility] Start: 01-26-2022 End: 03-08-2023 Tobacco Comment Quit years ago [facility] Start: 1945 Sex Assigned At Not on file [facility] Start: 01-16-2022 End: 05-24-2022 Exposure to SARS-CoV-2 (event) Not sure [facility] Start: 08-14-1968 End: 08-14-1992 History of tobacco use Current smoker [facility] Start: 12-26-2023 End: 10-16-2024 Adult Depression Screening Assessment 2 [facility] Start: 01-26-2022 Sexual orientation Heterosexual (finding) [facility] Tobacco quit 40 years ag o Tobacco Use:. Cigarettes, Household tobacco concerns: No. Yes [facility] Start: 07-31-2023 Alcohol Comment 1 beer 2-3 days a week [facility] (I/We) worried wheth er (my/our) food would run out before (I/we) got money to buy more. Never true [facility] In the past 12 month s, was there a time when you were not able to pay the mortgage or rent on time? No [facility] History of tobacco use Passive smoker [facility] Start: 05-25-2023 Alcohol Comment 4 or more times a week [facility] Start: 03-19-2015 End: 10-31-2024 Sex Male (finding) [employer] [facility] Procedure Code Equipment Code Equipment Origin al Text Equipment Identifier Dates Fusion, spine, lumbar, XLIF CANCELLOUS 15CC CRUSHED FDA Start: 09-14-2021 Fusion, spine, lumbar, XLIF Metallic spinal fusion cage, non-sterile ()[id number] FDA Start: 09-14-2021 Fusion, spine, lumbar, XLIF Metallic spinal fusion cage, non-sterile ()[id number] FDA Start: 09-14-2021 Fusion, spine, lumbar, XLIF Metallic spinal fusion cage, non-sterile ()[id number] FDA Start: 09-14-2021 Fusion, spine, lumbar, XLIF Bone-screw internal spinal fixation system, non-sterile ()[id number] FDA Start: 09-14-2021 Fusion, spine, lumbar, XLIF MAS REDUCTION FIXATION ADD LEV FDA Start: 09-14-2021 Fusion, spine, lumbar, XLIF Bone-screw internal spinal fixation system, non-sterile ()[id number] FDA Start: 09-14-2021 Fusion, spine, lumbar, XLIF MAS REDUCTION FIXATION ADD LEV FDA Start: 09-14-2021 Fusion, spine, lumbar, XLIF Bone-screw internal spinal fixation system, non-sterile ()[id number] FDA Start: 09-14-2021 Fusion, spine, lumbar, XLIF RELINE RAYMOND FDA Start: 09-14-2021 Fusion, spine, lumbar, XLIF Bone-screw internal spinal fixation system, non-sterile ()[id number] FDA Start: 09-14-2021 Fusion, spine, lumbar, XLIF Polymeric spinal fusion cage, non-sterile ()[id number] FDA Start: 09-14-2021 Fusion, spine, lumbar, XLIF RELINE RAYMOND FDA Start: 09-14-2021 Fusion, spine, lumbar, XLIF XLIF 4 LEVEL MAS REDUCTION FDA Start: 09-14-2021 Fusion, spine, lumbar, XLIF Bone matrix implant, human-derived ()[id number] FDA Start: 09-14-2021 Fusion, spine, lumbar, XLIF Bone matrix implant, human-derived ()[id number] FDA Start: 09-14-2021 Fusion, spine, lumbar, XLIF Spinal fusion graft kit ()[id number] FDA Start: 09-14-2021 Fusion, spine, lumbar, XLIF CANCELLOUS 15CC CRUSHED FDA Start: 09-14-2021 Fusion, spine, lumbar, XLIF MAS REDUCTION FIXATION ADD LEV FDA Start: 09-14-2021 Fusion, spine, lumbar, XLIF MAS REDUCTION FIXATION ADD LEV FDA Start: 09-14-2021 Fusion, spine, lumbar, XLIF RELINE RAYMOND FDA Start: 09-14-2021 Fusion, spine, lumbar, XLIF RELINE RAYMOND FDA Start: 09-14-2021 Fusion, spine, lumbar, XLIF XLIF 4 LEVEL MAS REDUCTION FDA Start: 09-14-2021 Fusion, spine, lumbar, XLIF CANCELLOUS 15CC CRUSHED FDA Start: 09-14-2021 Fusion, spine, lumbar, XLIF MAS REDUCTION FIXATION ADD LEV FDA Start: 09-14-2021 Fusion, spine, lumbar, XLIF MAS REDUCTION FIXATION ADD LEV FDA Start: 09-14-2021 Fusion, spine, lumbar, XLIF RELINE RAYMOND FDA Start: 09-14-2021 Fusion, spine, lumbar, XLIF RELINE RAYMOND FDA Start: 09-14-2021 Fusion, spine, lumbar, XLIF XLIF 4 LEVEL MAS REDUCTION FDA Start: 09-14-2021 Fusion, spine, lumbar, XLIF CANCELLOUS 15CC CRUSHED FDA Start: 09-14-2021 Fusion, spine, lumbar, XLIF MAS REDUCTION FIXATION ADD LEV FDA Start: 09-14-2021 Fusion, spine, lumbar, XLIF MAS REDUCTION FIXATION ADD LEV FDA Start: 09-14-2021 Fusion, spine, lumbar, XLIF RELINE RAYMOND FDA Start: 09-14-2021 Fusion, spine, lumbar, XLIF RELINE RAYMOND FDA Start: 09-14-2021 Fusion, spine, lumbar, XLIF XLIF 4 LEVEL MAS REDUCTION FDA Start: 09-14-2021 Fusion, spine, lumbar, XLIF CANCELLOUS 15CC CRUSHED FDA Start: 09-14-2021 Fusion, spine, lumbar, XLIF MAS REDUCTION FIXATION ADD LEV FDA Start: 09-14-2021 Fusion, spine, lumbar, XLIF MAS REDUCTION FIXATION ADD LEV FDA Start: 09-14-2021 Fusion, spine, lumbar, XLIF RELINE RAYMOND FDA Start: 09-14-2021 Fusion, spine, lumbar, XLIF RELINE RAYMOND FDA Start: 09-14-2021 Fusion, spine, lumbar, XLIF XLIF 4 LEVEL MAS REDUCTION FDA Start: 09-14-2021 Fusion, spine, lumbar, XLIF CANCELLOUS 15CC CRUSHED FDA Start: 09-14-2021 Fusion, spine, lumbar, XLIF MAS REDUCTION FIXATION ADD LEV FDA Start: 09-14-2021 Fusion, spine, lumbar, XLIF MAS REDUCTION FIXATION ADD LEV FDA Start: 09-14-2021 Fusion, spine, lumbar, XLIF RELINE RAYMOND FDA Start: 09-14-2021 Fusion, spine, lumbar, XLIF RELINE RAYMOND FDA Start: 09-14-2021 Fusion, spine, lumbar, XLIF XLIF 4 LEVEL MAS REDUCTION FDA Start: 09-14-2021 Fusion, spine, lumbar, XLIF CANCELLOUS 15CC CRUSHED FDA Start: 09-14-2021 Fusion, spine, lumbar, XLIF MAS REDUCTION FIXATION ADD LEV FDA Start: 09-14-2021 Fusion, spine, lumbar, XLIF MAS REDUCTION FIXATION ADD LEV FDA Start: 09-14-2021 Fusion, spine, lumbar, XLIF RELINE RAYMOND FDA Start: 09-14-2021 Fusion, spine, lumbar, XLIF RELINE RAYMOND FDA Start: 09-14-2021 Fusion, spine, lumbar, XLIF XLIF 4 LEVEL MAS REDUCTION FDA Start: 09-14-2021 Connector Alice 0d Small Titanium Raymond Spine - [id number] Start: 08-24-2023 Screw Alice 3 Fiona nium Set Audrey Spine - [id number] Start: 08-24-2023 Connector Everes t 6mm 5.5mm Raymond Closed Open Axial 4 Screw Nonsterile Spine - [id number] Start: 08-24-2023 Raymond Max 90mm Spi nal Radius - [id number] Start: 08-24-2023 Raymond Alice 6mm Fiona nium 480mm Spinal Compression - [id number] Start: 08-24-2023 Screw [place] ay Set Spine - [id number] Start: 08-24-2023 Screw Alice 3 5.5m m Titanium 50mm Bone Polyaxial Spine Thoracolumbar - [id number] Start: 08-24-2023 Screw 8.5mm 45mm Bone Polyaxial Revision Spine Iliosacral - [id number] Start: 08-24-2023 Screw Alice 3 7.5m m Titanium 60mm Bone Polyaxial Spine Thoracolumbar - [id number] Start: 08-24-2023 Screw Alice 3 7.5m m Titanium 70mm Bone Polyaxial Spine Thoracolumbar - [id number] Start: 08-24-2023 Spacer Avs 4d Pe ek [id number] Spinal Cage Thoracolumbar Vertebrae - [id number] Start: 08-24-2023 Head Rsp 36mm Ne utral Glenoid Retain Screw - [id number] Start: 07-25-2024 Insert Rsp Djo Surgical Standard Hxe+ Socket Sterile Humeral - [id number] Start: 07-25-2024 Stem Humeral Std Encore Reverse Shoulder [id number] - [id number] Start: 07-25-2024 Baseplate Rsp P2 30mm Glenoid Sterile - [id number] Start: 07-25-2024 Screw Rsp 5mm 14 mm Bone Lock Glenoid Baseplate Shoulder - [id number] Start: 07-25-2024 Screw Rsp 5mm 26 mm Bone Lock Glenoid Baseplate Shoulder - [id number] Start: 07-25-2024 Screw Rsp 5mm 26 mm Bone Lock Glenoid Baseplate Shoulder - [id number] Start: 07-25-2024 Screw Rsp 5mm 14 mm Bone Lock Glenoid Baseplate Shoulder - [id number] Start: 07-25-2024 Head Rsp 36mm Ne utral Glenoid Retain Screw - [id number] Start: 12-16-2024 Insert Rsp Djo Surgical Standard Hxe+ Socket Sterile Humeral - [id number] Start: 12-16-2024 Stem Humeral Std Encore Reverse Shoulder [id number] - [id number] Start: 12-16-2024 Baseplate Rsp P2 30mm Glenoid Sterile - [id number] Start: 12-16-2024 Screw Rsp 5mm 14 mm Bone Lock Glenoid Baseplate Shoulder - [id number] Start: 12-16-2024 Screw Rsp 5mm 14 mm Bone Lock Glenoid Baseplate Shoulder - [id number] Start: 12-16-2024 Screw Rsp 5mm 26 mm Bone Lock Glenoid Baseplate Shoulder - [id number] Start: 12-16-2024 Screw Rsp 5mm 22 mm Bone Lock Glenoid Baseplate Shoulder - [id number] Start: 12-16-2024 Goals Date Patient Goal Desired Activity /State Personal health goal Comment on above: Formatting of this n ote might be different from the original. Evaluation of progress towards goal: Safe dc transition from hospital to home. Functional Status Date Assessment Result Facility 12-17-2024 Are you deaf, or do you have serious difficulty hearing Yes 12/17/2024 12:04 PM Andreia Ley, ALIYAH Yes [facility] 12-17-2024 Are you blind, or do you have serious difficulty seeing, even when wearing glasses No 12/17/2024 12:04 PM Andreia Ley, RN No [facility] 12-17-2024 Do you have serious difficulty walking or climbing stairs Yes 12/17/2024 12:04 PM Andreia Ley, ALIYAH Yes [facility] 05-06-2025 Do you have difficul ty dressing or bathing Yes 12/17/2024 12:04 PM Andreia Ley, RN Yes [facility] 12-17-2024 Because of a physica l, mental, or emotional condition, do you have difficulty doing errands alone such as visiting a physician's office or shopping Yes 12/17/2024 12:04 PM Andreia Ley, RN Yes [facility] 11-18-2024 Functional Status N/A [facility] 10-16-2024 Functional Status N/A [facility] 07-26-2024 Are you deaf, or do you have serious difficulty hearing No 07/26/2024 6:23 PM Jasen Katz, ALIYAH No [facility] 07-26-2024 Are you blind, or do you have serious difficulty seeing, even when wearing glasses No 07/26/2024 6:23 PM Jasen Katz, ALIYAH No [facility] 07-26-2024 Do you have serious difficulty walking or climbing stairs No 07/26/2024 6:23 PM Jasen Katz, ALIYAH No [facility] 07-26-2024 Do you have difficul ty dressing or bathing No 07/26/2024 6:23 PM Jasen Katz, ALIYAH No [facility] 07-26-2024 Because of a physica l, mental, or emotional condition, do you have difficulty doing errands alone such as visiting a physician's office or shopping Yes 07/26/2024 6:23 PM Jasen Katz, ALIYAH Yes [facility] 12-26-2023 Functional Status N/A [facility] 10-04-2023 Functional Status N/A [facility] 05-03-2023 Functional Status N/A [facility] 03-09-2023 Functional Status N/A [facility] 01-18-2023 Functional Status N/A [facility] 07-06-2022 Functional Status N/A [facility] 04-27-2022 N/A [facility] 10-18-2021 Functional status 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 [facility] Work Phone: 09-20-2021 Functional status 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 [facility] Work Phone: Mental Status Date Assessment Result Facility 12-17-2024 Because of a physica l, mental, or emotional condition, do you have serious difficulty concentrating, remembering, or making decisions Yes 12/17/2024 12:04 PM EDT Andreia Grewal, ALIYAH Yes [facility] 07-26-2024 Because of a physica l, mental, or emotional condition, do you have serious difficulty concentrating, remembering, or making decisions No 07/26/2024 6:23 PM Jasen Katz, ALIYAH No [facility] 10-18-2021 Cognitive function Cognitive Sta tus Patient at Baseline [facility] Work Phone: 09-20-2021 Cognitive function Cognitive Sta tus Patient at Baseline [facility] Work Phone: Clinical Notes 12-30-2015 to 12-30-2024 Patient InstructionsBoaz White RN - 12/30/2024 10:09 AM GREGGTArmando Richards MD - 12/24/2024 9:45 AM EDTTelephone Encounter - Uyen Gresham CMA - 12/23/2024 8:22 AM EDTPatient Instructions Note Date & Type Note Facility 12-30-2024 Instructions Boaz White RN - 12/30/2024 10:11 AM EDT follow up in [address] Jacobsen ok to leave incision open to air, no lotions, ointments. Ok to cover with band aid/dry dressing if needed. Call if any redness, swelling, drainage. [phone] Ok to shower in 1-2 days but [...] or doing exercises documented in this encounter [facility] 12-30-2024 Note HNO ID: [id number] Author: BOAZ WHITE RN Service: ? Author Type: Registered Nurse Type: Progress Notes Filed: 12/30/2024 10:29 Note Text: ORTH CARE COORDINATION POST OPERATIVE NURSE VISIT Patient has been identified by name and date of : Yes, Patient is accompanied by: family Surgery: Right reverse Total Shoulder Arthroplasty , biceps tenodesis Date of Surgery: 12/16/2024 Activity? Patient be [...] follow up for [address] Jacobsen scheduled. Sling adjusted Boaz White RN [facility] 12-30-2024 History of Present illness Narrative ORTH CARE COORDINATION POST OPERATIVE NURSE VISIT Patient has been identified by name and date of : Yes, Patient is accompanied by: family Surgery: Right reverse Total Shoulder Arthroplasty , biceps tenodesis Date of Surgery: 12/16/2024 Activity? Patient be [...] follow up for [address] Jacobsen scheduled. Sling adjusted Boaz White, RN documented in this encounter [facility] 12-30-2024 Note HNO ID: [id number] Author: LEA TINEO RT(R) Service: ? Author Type: Technologist Type: Progress Notes Filed: 12/30/2024 10:05 Note Text: Radiology Service Progress Note PATIENT NAME: Tyler Torres DATE OF SERVICE: December 30, 2024 TIME: 10:05 AM PATIENT IDENTITY VERIFICATION COMPLETED USING TWO (2) IDENTIFIERS: Name and Date of confirmed by patient verbally. FALL SCREENING: Has the patient had 2 falls in the last year or 1 fall with injury or currently using an Ambulatory Assistive Device (Walker, Cane, Wheelchair, Crutches, etc.)? No PATIENT GENDER DATA: Assigned male at PATIENT RELEVANT IMPLANT DATA REVIEWED: Yes PATIENT PRESENTS WITH AN IMPLANTABLE OR ATTACHED TALENT SCOUT: No RADIOLOGY DEPARTMENT: General X-ray: Exam(s) Completed: Upper Extremity X-Ray(s): Shoulder, AP / TRUE AP / AXILLARY right PERIPHERAL IV DATA: Not applicable SIGNED BY: RT Luca(R) December 30, 2024 10:05 AM [facility] 12-24-2024 History of Present illness Narrative Subjective Patient ID: Tyler Torres is a 79 y.o. male. Comes in [...] better today as far as the constipation goes. He continues to complain about his back, weak legs, lack of energy and activity. He has not had any fever. The following portions of the patient's history were reviewed and updated as appropriate: allergies, current medications, past medical history, past social history, past surgical history, and problem list. Review of Systems Objective Physical Exam Constitutional: Comments: Color looks fine. Weight is stable. Blood pressure normal. He is wearing the sling on his right arm and using a cane in his [...] visit: Drug-induced constipation documented in this encounter [facility] 12-23-2024 Miscellaneous Notes ED Outreach This documentation is being used for Transition of Care purposes: Yes/No: Yes ED Outreach Date: December 23, 2024 ED Outreach Method: COMMUNICATION METHOD: Telephone ED Outreach Attempt: second ED Outreach Outcome: Left Message Name of ED Facility: [facility] Date of ED Discharge: 12/20/2024 Discharge [...] await return call. documented in this encounter [facility] 12-23-2024 Telephone encounter Note ED Outreach This documentation is being used for Transition of Care purposes: Yes/No: Yes ED Outreach Date: December 23, 2024 ED Outreach Method: COMMUNICATION METHOD: Telephone ED Outreach Attempt: second ED Outreach Outcome: Left Message Name of ED Facility: [facility] Date of ED Discharge: 12/20/2024 Discharge Diagnosis: Drug-induced constipation ED Chief Complaint: Constipation Current Symptom Status: Medication Changes Reviewed: Medication Questions/Concerns: Follow-up PCP Scheduled: Follow-up Specialist Scheduled: Follow up Testing Scheduled: Patient Contacted Office Prior to ED Visit: Additional Comments: Left message for patient to return call. Left second message for patient to contact the office. Will await return call. [facility] 12-17-2024 Note HNO ID: [id number] Author: MARK ARREAGA PA-C Service: Orthopaedic Surgery Author Type: Physician C Application Developer Type: Progress Notes Filed: 12/17/2024 11:51 Note Text: ORTHOPAEDIC SURGERY INPATIENT PROGRESS NOTE Assessment: Tyler Torres is a 79 year old male s/p right reverse total shoulder arthroplasty Dr. Jacobsen on 12/16/24 PLAN: - Antibiotics: Ancef x 24 hrs. - Anticoagulation:ASA 81mg BID x 2 weeks - Wt bearing: NWB right UE - Activity / Restrictions: No ROM or PT to shoulder. ROM exercises ok for hand wrist elbow only. Maintain ultrasling at all times aside from bathing and dressing. PT consult, appreciate recs OT consult, appreciate recs - Disposition: Home, Pending PT/OT/CM evaluation - Follow up: [address] Augie Perry Subjective No o/n issues. Pain well controlled. No chest pain, shortness of breath. Denies numbness, tingling Objective Blood pressure 115/65, pulse 75, temperature 36.7 ?C (98.1 ?F), temperature source Oral, resp. rate 17, height 172.7 cm (5' 7.99 ), weight 78 kg (171 lb 15.3 oz), SpO2 94%. Physical Exam AAOx3, NAD Breathing comfortably at rest RRR to peripheral palpation Right UE Dressing: c/d/I Compartments soft and compressible 5/5 AIN PIN Ulnar, firing Deltoid SILT Median Ulnar Radial Axillary 2+ Radial pulse Lab Review Creatinine (mg/dL) Date Value 12/17/2024 0.94 12/04/2024 0.89 07/26/2024 0.83 Sodium (mmol/L) Date Value 12/17/2024 136 12/04/2024 142 07/26/2024 137 Potassium (mmol/L) Date Value 12/17/2024 4.1 12/04/2024 4.6 07/26/2024 4.0 Hemoglobin (g/dL) Date Value 12/04/2024 12.0 (L) 07/26/2024 10.1 (L) 07/22/2024 13.2 Hematocrit (%) Date Value 12/04/2024 38.5 (L) 07/26/2024 31.2 (L) 07/22/2024 41.1 WBC (k/uL) Date Value 12/04/2024 6.76 07/26/2024 6.43 07/22/2024 6.99 No results found for: INR Glucose, Point of Care (mg/dL) Date Value 12/17/2024 88 12/17/2024 124 (A) 12/16/2024 108 (A) 12/16/2024 103 (A) 12/16/2024 92 07/26/2024 133 (A) Serum Inflammatory Markers Test 12/17/2024 WBC WBC (k/uL) Date Value 12/04/2024 6.76 ESR No results found for: WSR CRP No results found for: CRP Please scroll above for Assessment AND Plan. SIGNATURE: YANI Disla PATIENT NAME: Tyler Torres DATE: 12/17/2024 TIME: 11:51 AM Vocera: [facility] 12-17-2024 Note HNO ID: [id number] Author: SANA FUNES RN Service: Care Management Author Type: Registered Nurse Type: Care Mgt Initial Assessment Filed: 12/17/2024 09:39 Note Text: CARE MANAGEMENT: ASSESSMENT AND DISCHARGE PLAN SERVICE DATE: December 17, 2024 SERVICE TIME: 9:39 am PCP: Armando Richards MD, MD Primary Contact: Extended Emergency Contact Information Primary Emergency Contact: GENNY SANCHEZ Mobile Relation: Significant other Admission Status: Extended Recovery Insurance Provider: MEDICARE A AND B Discharge Planning requested by: Per Department Practice Potential Transition Plans Home Advance Directives Current Living Arrangements and Support Lives with: Spouse/significant other Type of Residence: Support: Spouse/significant other How do you manage to accomplish the following: Independent: Transportation to appointments/community, Ambulation, Bathe/Shower, Dress, Meals/Meal Prep, Going to the bathroom, Medication Management Current Services/Equipment Current Post-Acute Service(s): None Discharge Planning Patient Goal(s): Less pain, Be able to go home, General wellness Grant of Choice Explained: Grant of Choice Given: No Reason Not Given: No placements necessary Are you interested in bedside delivery of your medications? Yes Discharge Planning Participant(s): Patient Patient/Family Comments: Caregiver Assessment: Transport at Discharge: Transportation Arrangements: Car (with girlfriend) Needs Prior to Discharge: Needs Prior to Discharge: To Be Determined Post-Acute Discharge Plan: SURGERY/PROCEDURE(S): Right reverse Total Shoulder Arthroplasty 39408, biceps tenodesis [address] No DME Girlfriend to drive home at [place] SIGNATURE: Sana Funes RN PATIENT NAME: Tyler Torres DATE: December 17, 2024 TIME: 9:39 AM [facility] 12-16-2024 Note HNO ID: [id number] Author: SAVANNA HANNON APRN.CORRY Service: ? Author Type: Nurse Jackscrew Man Type: Anesthesia Procedure Notes Filed: 12/16/2024 10:28 Note Text: ANESTHESIOLOGY PROCEDURE NOTE Airway General Information Procedure Start Time/Medication Administration: 12/16/2024 9:38 AM Procedure End Time: 12/16/2024 9:39 AM Patient location during procedure: OR Timeout Performed Pre-procedure: timeout performed Consent Obtained: Yes Patient identity confirmed: arm band and patient Staffing MECHANISM INSPECTOR: Savanna Hannon APRN.MECHANISM INSPECTOR Performed by: CORRY Indications and Patient Condition Indications for airway management: anesthesia Preoxygenated: yes anesthesia circuit Method: asleep Cricoid Pressure: No Manual In-Line Stabilization: Yes Difficult Mask: No Airway Accessory: oral airway Final Airway Details Final airway type: endotracheal airway Final Endotracheal Airway: ETT Cuffed: yes Successful intubation technique: video laryngoscopy Devices used: Gibson Endotracheal tube insertion site: oral Blade: Maryam Blade size: #4 ETT size (mm): 8.0 Measured from: lips Measurement (cm): 22 Placement verified by: chest auscultation and capnometry Number of attempts at approach: 1 Failed airway: no Unrecognized esophageal intubation: no Airway not difficult Comments Allevyn to face SIGNATURE: Savanna Hannon APRN.CRNA PATIENT NAME: Tyler Torres DATE: December 16, 2024 TIME: 10:27 AM CSN: [id number] [facility] 12-16-2024 Note HNO ID: [id number] Author: DINAH GILL MD Service: Anesthesiology Author Type: Anesthesiologist Type: Anesthesia Procedure Notes Filed: 12/31/2024 09:05 Note Text: ANESTHESIOLOGY PROCEDURE NOTE Peripheral Nerve Block General Information Procedure Start Time/Medication Administration: 12/16/2024 7:52 AM Procedure End time: 12/16/2024 8:03 AM Patient location during procedure: pre-op Timeout Performed Pre-procedure: timeout performed Consent Obtained: Yes Patient identity confirmed: arm band and patient Reason for block: post-op pain management/at surgeon's request Staffing Anesthesiologist: Dinah Gill MD Performed by: anesthesiologist Preparation Sterility Preparation: [...] INTRAVENOUS 25 mg - 12/16/2024 7:52:00 AM SIGNATURE: Dinah Gill MD PATIENT NAME: Tyler Torres DATE: December 16, 2024 TIME: 8:14 AM CSN: [id number] [facility] 12-13-2024 Miscellaneous Notes Refill request documented in this encounter [facility] 12-13-2024 Telephone encounter Note Refill request [facility] 12-04-2024 Note HNO ID: [id number] Author: ERIC SARMIENTO RT(R) Service: ? Author Type: Technologist Type: Progress Notes Filed: 12/04/2024 13:17 Note Text: Radiology Service Progress Note PATIENT NAME: Tyler Torres DATE OF SERVICE: December 04, 2024 TIME: 1:16 PM PATIENT IDENTITY VERIFICATION COMPLETED USING TWO (2) IDENTIFIERS: Name and Date of confirmed by patient verbally and Name and Date of confirmed by identification band. FALL SCREENING: Has the patient had 2 falls in the last year or 1 fall with injury or currently using an Ambulatory Assistive Device (Walker, Cane, Wheelchair, Crutches, etc.)? No PATIENT GENDER DATA: Assigned male at PATIENT RELEVANT IMPLANT DATA REVIEWED: Not Applicable PATIENT PRESENTS WITH AN IMPLANTABLE OR ATTACHED TALENT SCOUT: No RADIOLOGY DEPARTMENT: General X-ray: Exam(s) Completed: Chest X-Ray PERIPHERAL IV DATA: Not applicable SIGNED BY: RT Phani(R) December 04, 2024 1:16 PM [facility] 12-04-2024 Note HNO ID: [id number] Author: EBONY BECK RT(R) Service: ? Author Type: Technologist Type: Progress Notes Filed: 12/04/2024 13:12 Note Text: Radiology Service Progress Note PATIENT NAME: Tyler Torres DATE OF SERVICE: December 04, 2024 TIME: 1:12 PM PATIENT IDENTITY VERIFICATION COMPLETED USING TWO (2) IDENTIFIERS: Name and Date of confirmed by patient verbally and Name and Date of confirmed by identification band. FALL SCREENING: Has the patient had 2 falls in the last year or 1 fall with injury or currently using an Ambulatory Assistive Device (Walker, Cane, Wheelchair, Crutches, etc.)? No PATIENT GENDER DATA: Assigned male at PATIENT RELEVANT IMPLANT DATA REVIEWED: Not Applicable PATIENT PRESENTS WITH AN IMPLANTABLE OR ATTACHED TALENT SCOUT: No RADIOLOGY DEPARTMENT: CT; Exam(s) Completed: Upper extremity PERIPHERAL IV DATA: Not applicable SIGNED BY: Ebony Beck, RT(R) December 04, 2024 1:12 PM [facility] 12-04-2024 History and physical note Images from the original note were not included. [facility] HISTORY AND PHYSICAL EXAMINATION SERVICE DATE: 12/04/2024 SERVICE TIME: 12:27 PM PRIMARY CARE PHYSICIAN: Armando Richards MD, MD Assessment 1. Pre-op testing (Primary) 2. Chronic right shoulder pain Surgery 12/16/2024 - REFER TO [facility] PREOPERATIVE OPTIMIZATION 3. Cerebrovascular accident (CVA), unspecified mechanism (HCC) Had a stroke 03/25/2024. He was having vision changes that were affecting his balance and dizziness. He had a MR brain suggest tiny area of ischemia R occipital lobe and a possible area in the L thalamus. Was noted in the ED, The thalamic lesion also doesn't correlate well with his symptoms (the R occipital lesion does). Symptoms resolved after a day. No reoccurrences. Follows neurology, last OV 04/25/[address] Fausto Lopezmikhail is an 79 year old male who is following up after his recent hospitalization for acute ischemic stroke. His stroke mechanism is suspected to be due to either embolic v small vessel disease. He was discharge home with an event monitor but has declined it. On today's visit the reason for the event monitor was explained to the patient and he is agreeable. For the asymptomatic right ICA stenosis, we will refer him to vascular surgeon for surveillance and possible intervention when indicated. A new event monitor was ordered for mail delivery. He will stop his Plavix and continue Aspirin 81 mg monotherapy. Continue to monitor his BP to maintain normotensive <130/80, LDL , 70 and HgA1C < 7%. All of their questions were answered to their satisfaction. Follow up with me in 6 months. He wore a monitor for 30 days and was not found to have any arrhythmias. Echo completed which showed Aortic sclerosis without stenosis, Mitral regurgitation, mild, Tricuspid regurgitation, mild, Normal atria, EF 60-65%. Had left shoulder replacement 07/25/24 without complications. Advised to stay on 81mg ASA for surgery. 4. Mixed hyperlipidemia Continue rosuvastatin (Crestor) 5. Elevated BP without diagnosis of hypertension Bp in office 117/68 continue lisinopril Last 14 Encounter BP Readings: Date: BP: 12/04/2024 117/68 07/25/2024 106/56 07/22/2024 92/59 07/02/2024 118/57 08/24/2023 113/66 07/31/2023 144/96 02/16/2023 78/46 6. Stenosis of carotid artery, unspecified laterality Follows vascular, last OV 12/02/[address] Lopez/ 7. Chronic obstructive pulmonary disease, unspecified COPD type ([facility]) Does not use inhalers. Denies recent exacerbations or hospitalizations. Denies use of oxygen. Denies cough, wheezing, SOB, orthopnea. Lungs CTAB 8. Former smoker 0.5 ppd x 15 years quit 1992 9. Obstructive sleep apnea syndrome Noncompliant on cpap 10. Gastroesophageal reflux disease without esophagitis Intermittent takes tums prn. No specific triggers. 11. Type 2 diabetes mellitus without complication, without long-term current use of insulin ([facility]) Does not consistently take fasting AM blood sugars. Advised patient that blood sugars will be checked day of surgery and recommended to be under 200 in order to proceed with surgery. A1C must be under 9.0 in order to proceed with surgery per [facility] guidelines. Most recent A1C 5.8. A1C to be completed today. Continue metformin 12. Mitral valve insufficiency, unspecified etiology 13. Aortic valve sclerosis Systolic murmur appreciated best at LLSB and apex. Was found to have trace to mild mitral regurg on echo 03/2024 and aortic sclerosis without stenosis. ANESTHESIA FINDINGS: Intubation History: No history of difficult intubation Significant Anesthesia Considerations: none Airway History: No history of difficult airway Meza Activity Status Index: METS: Walk indoors, such as around the house (1.75 METs) Do light work around the house, such as dusting or washing dishes (2.70 METs) Take care of self; that is eating, dressing, bathing, using the toilet (2.75 METs) Walk a block or two on level ground (2.75 METs) Climb a flight of stairs or walk up a hill (5.50 METs) DASI Score: 15.45 ([employer] walking at track 3 laps and bike 20 minutes 6 days a week) Patient denies any chest pain or undue shortness of breath with the above physical activity. Patient is limited most or all of the time (uses scooter, mobility device). Clinical Frailty Scale: 3. Well, with treated comorbid disease STOP-Bang Score: STOP-Bang Score: 0 (Romeo on cpap) I - PHYSICAL EVALUATION AIRWAY Patient intubated: No. Tracheostomy tube not present Mallampati: III. TM distance: >3 FB. Neck ROM: limited extension. Mouth opening: adequate. Short neck: no. Thick neck: no Lip Bite Test: I Microretrognathia/Micronagthia/Recesse d Chin: No DENTAL Normal dental observations. Dentures, upper: complete. Dentures, lower: complete. II - ANESTHESIA PLAN Beta Audrey Monitoring Plan Post Procedure Analgesic Plan Prepared for Surgery: optimally prepared for surgery pending LABS and CXR. CONSULTS: Patient does not require consults for optimization at this time. Planned Anesthetic: anesthesia choice The Following Tests/Procedures Have Been Initiated: EKG completed 07/22/24 Orders Placed This Encounter Hemoglobin A1C Standing Status: Future Expected Date: 12/04/2024 Expiration Date: 03/05/2025 docusate sodium (COLACE ORAL) Sig: Take by mouth once daily. finasteride (PROSCAR) 5 mg tablet Sig: Take 5 mg by mouth once daily. Fluorouracil (EFUDEX) 5 % cream Sig: Apply to affected area two times a day. oxyCODONE ir (OXYIR) 5 mg capsule Sig: Take 5 mg by mouth two times a day. Refill: 0 mupirocin (BACTROBAN) 2 % ointment Sig: two times a day for 5 days. Apply 0.5 inch with cotton swab (Q-tip) to each nostril in the morning and evening for 5 days prior to and including day of surgery. Dispense: 22 g Refill: 0 , EKG not indicated per [facility] protocol REASON FOR VISIT: Tyler Torres is a 79 year old male who is scheduled for Right - ARTHROPLASTY REPLACE JOINT TOTAL SHOULDER at the request of Dr. Hung Jacobsen for consultation. My final recommendation will be communicated back to the requesting physician by way of shared medical record or letter. CHIEF COMPLAINT: Shoulder pain HPI: Patient is a 79 year old male presenting for pre-anesthesia consultation friend Genny. Patient has history of left total shoulder replacement 07/2024 without complications. He is now ready for his right total shoulder replacement. He no longer has any pain in the left shoulder and has increased range of motion. He is right-handed. Currently rates right shoulder pain 01/21 and described as an aching pain without radiation. Occasionally he will have sharp pain in the shoulder, typically with movement. He has noticed a decreased range of motion and typically any upward arm or shoulder movements invoke pain. Denies any numbness or tingling in the shoulder or arm. Patient has been recommended for above surgery. Subjective ACTIVE PROBLEM LIST Chronic Right Shoulder Pain Type 2 Diabetes Mellitus Without Complication, Without Long-Term Current Use of Insulin (Hcc) Former Smoker Chronic Obstructive Pulmonary Disease (Hcc) Lumbar Stenosis With Neurogenic Claudication Status Post Lumbar Spinal Fusion Calculus of Kidney Elevated Bp Without Diagnosis of Hypertension Finding of Above Normal Blood Pressure Gastroesophageal Reflux Disease Without Esophagitis Diabetes Mellitus (Hcc) Mixed Hyperlipidemia Obstructive Sleep Apnea Syndrome Peripheral Venous Insufficiency Cva (Cerebral Vascular Accident) (Hcc) Carotid Stenosis Covid Immunization Dates Current Care Gaps Covid-19 Vaccine ( season) Overdue since 11/05/2024 05/08/2024 Imm Admin: COVID-19 vaccine, age 12+ yr (PFIZER-BIONTECH COMIRNATY) 05/15/2023 Imm Admin: COVID-19 vaccine, age 12+ yr (PFIZER-BIONTECH COMIRNATY) 06/09/2022 Imm Admin: COVID-19 vaccine, age 12+ yr, bivalent (PFIZER-BIONTECH) 12/31/2021 Imm Admin: COVID-19 original vaccine, age 12+ yr, monovalent (PFIZER-BIONTECH - LI TOP) 06/12/2021 Imm Admin: COVID-19 original vaccine, age 12+ yr, monovalent (PFIZER-BIONTECH - PURPLE TOP) Only the first 5 history entries have been loaded, but more history exists. REVIEW OF SYSTEMS: PAIN ASSESSMENT: General: No weight loss, malaise or fevers. Neuro:+CVA 03/2024 Denies seizures, lightheadedness, dizziness, syncope, headaches. Respiratory:+former smoker, copd, romeo Negative for Asthma, Current cough, Dyspnea, Home O2, Orthopnea , Pneumonia within 6 weeks (date) Cardiovascular:+hld, carotid stenosis Negative for Recent [place], Angina, Arrhythmia, CAD, Chest Pain GI:+gerd Denies abdominal pain, nausea, vomiting, diarrhea, constipation, hematochezia, melena. :+history of kidney stones Denies hematuria, dysuria, frequency, urgency, nocturia, difficulty initiating or maintaining a stream, flank pain. Endocrine: Diabetes Mellitus on oral agent Denies lightheadedness, dizziness, syncope, presyncope, fatigue, weakness. Hematology:+ASA Denies bleeding disorders, clotting disorders, history of blood clots. Oncology: No history of CA metastasis, chemo within 30 days, or radiotherapy within 90 days. Has not lost 10% of body wt in 6 months. No history of oncological symptoms or problems. Psych: No history of psychiatric symptoms or problems. Musculoskeletal: See HPI Skin: Negative for lesions, rash and itching. PAST MEDICAL HISTORY Diagnosis Date COPD (chronic obstructive pulmonary disease) (HCC) Diabetes mellitus (HCC) GERD (gastroesophageal reflux disease) HLD (hyperlipidemia) HTN (hypertension) Kidney stone ROMEO (obstructive sleep apnea) PAST SURGICAL HISTORY Procedure Laterality Date ARTHROPLASTY TOTAL SHOULDER Left 07/2024 COLONOSCOPY SCREENING PAST SURGICAL HISTORY OF 09/14/2020 lumbar surgery x2 PAST SURGICAL HISTORY OF Right cyst removed from back by right shoulder PAST SURGICAL HISTORY OF testicle removed History reviewed. No pertinent family history. Social History Tobacco Use Smoking status: Former Current packs/day: 0.00 Average packs/day: 0.5 packs/day for 15.0 years (7.5 ttl pk-yrs) Types: Cigarettes Start date: 1977 Quit date: 1992 Years since quittin.3 Smokeless tobacco: Never Tobacco comments: Quit years ago Substance Use Topics Alcohol use: Yes Alcohol/week: 2.0 standard drinks of alcohol Types: 2 Cans of Beer (12oz) per week Comment: 1 beer 2-3 days a week Drug use: Never MEDICATIONS: Prior to Admission medications as of 12/04/24 1235 Medication Sig Last Dose Taking docusate sodium (COLACE ORAL) Take by mouth once daily. Yes finasteride (PROSCAR) 5 mg tablet Take 5 mg by mouth once daily. Yes Fluorouracil (EFUDEX) 5 % cream Apply to affected area two times a day. Yes oxyCODONE ir (OXYIR) 5 mg capsule Take 5 mg by mouth two times a day. Yes acetaminophen (TYLENOL EXTRA STRENGTH) 500 mg tablet Take 2 tablets by mouth every 6 hours as needed for pain. for pain. Yes aspirin, enteric coated (ASPIRIN, ENTERIC COATED) 81 mg EC tablet Take 1 tablet by mouth two times a day for 14 days. Then, resume home dose of 1 tablet once daily. Yes rosuvastatin (CRESTOR) 20 mg tablet Take 20 mg by mouth every morning. Yes lisinopril (ZESTRIL) 10 mg tablet Take 10 mg by mouth every morning. Yes cyanocobalamin (VITAMIN B-12) 1,000 mcg tab Take 1,000 mcg by mouth once daily. Yes esomeprazole (NEXIUM) 40 mg capsule Yes DULoxetine (CYMBALTA) 30 mg capsule Take 30 mg by mouth. Yes Melatonin 5 mg cap Take 5 mg by mouth. Yes metFORMIN (GLUCOPHAGE) 500 mg tablet Take 500 mg by mouth. Yes tamsulosin (FLOMAX) 0.4 mg Take 0.4 mg by mouth. Yes mupirocin (BACTROBAN) 2 % ointment two times a day for 5 days. Apply 0.5 inch with cotton swab (Q-tip) to each nostril in the morning and evening for 5 days prior to and including day of surgery. No medication comments found. CURRENT ALLERGIES: ALLERGIES Allergen Reactions Simvastatin Unknown Objective PHYSICAL EXAM: VITALS: Pain Pain Level: 5 Pain Location: Shoulder-Right Description: Aching, Throbbing Duration Amount of Time: (Patient-Rptd) 24 Duration Units: Years Frequency: Intermittent Intervention/Comfort measure: (Patient-Rptd) Reposition BP 117/68 Pulse 76 Temp (Src) 97.8 (Temporal) Resp 18 Ht 5' 8 (1.73m) Wt 171 lb 15.3 oz (78.0kg) SpO2 100% BMI 26.15 kg/(m^2). General: Alert and oriented, No acute distress Skin: Normal color, no rash, no lesions. HEENT: EOM, pupils equal, round and reactive. Cardiovascular: Pulse regular. 2/6 mid systolic medium pitched blowing murmur LSB, LLSB, and LSB Lungs: Normal breath sounds, no wheezes or crackles. Abdomen: Soft, non-tender, no rigidity., Positive bowel sounds Extremities: No deformity, no edema or tenderness, no joint swelling or clubbing. Neurological: Normal cognition and motor skills. Pulses: Carotid and radial pulses normal +2. Pedal pulses normal +2. Diagnostic tests reviewed for today's visit: Lab Value Units Date High Low HB 10.1 g/dL 07/26/2024 17.0 13.0 HCT 31.2 % 07/26/2024 51.0 39.0 WBC 6.43 k/uL 07/26/2024 11.00 3.70 PLT 191 k/uL 07/26/2024 400 150 NA 137 mmol/L 07/26/2024 144 136 K 4.0 mmol/L 07/26/2024 5.1 3.7 GLUC 128 mg/dL 07/26/2024 99 74 BUN 16 mg/dL 07/26/2024 24 9 CREAT 0.83 mg/dL 07/26/2024 1.22 0.73 PTSEC No results within date range. INR No results within date range. APTT No results within date range. ALT 13 U/L 07/26/2024 54 10 AST 17 U/L 07/26/2024 40 14 TBILI 0.3 mg/dL 07/26/2024 1.3 0.2 TSH No results within date range. Lab Value Units Date High Low HCGQT No results within date range. UHCG No results within date range. HCG, BODY* No results within date range. Lab Value Units Date High Low ABORHD No results within date range. ABSCREEN No results within date range. Hemoglobin A1C (%) Date Value 07/31/2023 5.8 Recent Results (from the past 8760 hours) ECG COMPLETE Collection Time: 07/22/24 2:07 PM Result Value Ventricular Rate 69 Atrial Rate 69 P-R Interval 174 QRS Duration 82 QT Interval 372 QTC Calculation (Bazett) 398 Calculated P [place] 23 Calculated R [place] 9 Calculated T [place] 73 Impression NORMAL SINUS RHYTHM NORMAL ECG Confirmed by STEVEN KHALIL MD ([id number]) on 07/23/2024 9:38:18 PM US carotids 11/26/24 found in care everywhere Previous: Previous carotid duplex exam performed 03/25/2024. [...] 25, 2024, no significant changes were noted. Event monitor 05/01/24 found in care everywhere Wireless event monitoring was worn for a total of 30 days. For the indication of cerebral infarction. There were a total of 7 auto triggered transmissions. All of which corresponded to sinus rhythm or sinus tachycardia there was 1 8 beat run of ventricular nonsustained tachycardia. At a heart rate of 164 beats per minute. No symptoms were recorded. Echo 03/25/24 found in care everywhere Left ventricle appears normal in size with moderate focal basal increased wall thickness/hypertrophy. Remaining wall segments are mildly increased. Systolic function is normal with an ejection fraction of 60-65% and no segmental wall motion abnormalities. Aortic sclerosis without stenosis Mitral regurgitation, mild Tricuspid regurgitation, mild Normal atria Left Ventricle Left ventricle appears normal in size. There is moderate focal basal increased wall thickness/hypertrophy. Remaining wall segments are mildly increased. Systolic function is normal with an ejection fraction of 60-65%. No obvious regional wall motion abnormalities. There is no diastolic dysfunction and normal left atrial pressure. Lateral E' is 7.06 cm/s. Medial E' is 4.93 cm/s. Average E' is 6.0 cm/s. Right Ventricle Right ventricular size appears normal. The right ventricular basal diameter is 25.8 mm. Systolic function visually appears normal. Left Atrium Left atrium volume index is normal. The left atrial volume index is 24.0 mL/m2. Right Atrium Right atrium is normal in size. The right atrial area is 12.1 cm2. IVC/SVC The right atrial pressure is estimated at 3 mmHg. IVC appears normal. There is normal collapse with deep inspiration. Mitral Valve Mitral valve structure is normal. The chordae are thickened/calcified. There is [id number] regurgitation. There is no evidence of mitral valve stenosis. Tricuspid Valve Tricuspid valve appears to be normal. There is mild regurgitation. RVSP calculated at 32 mmHg. RVSP is based on RA pressure of 3 mmHg. Aortic Valve The aortic valve is trileaflet. The leaflets exhibit focal thickening. There is sclerosis. There is trace to mild regurgitation. There is no evidence of aortic valve stenosis. Pulmonic Valve The pulmonic valve was not well visualized. There is trace to mild regurgitation. Ascending Aorta The aortic root is normal in size. Pericardium There is no pericardial effusion. The pericardium has a fat pad. Study Details A complete echo was performed using complete 2D, color flow Doppler and spectral Doppler. Overall the study quality was adequate. Instructions Given to Patient: Instructions located in the after visit summary. Patient given verbal and written preop instructions and voices comprehension and compliance. SIGNATURE: Aline Jones PA-C PATIENT NAME: Tyler Torres DATE: 12/04/2024 TIME: 1:09 PM PAGER/CONTACT #: [facility] 12-04-2024 History and physical note Images from the original note were not included. [facility] HISTORY AND PHYSICAL EXAMINATION SERVICE DATE: 12/04/2024 SERVICE TIME: 12:27 PM PRIMARY CARE PHYSICIAN: Armando Richards MD, MD Assessment 1. Pre-op testing (Primary) 2. Chronic right shoulder pain Surgery 12/16/2024 - REFER TO [facility]IVE [facility]IM[facility] 3. Cerebrovascular accident (CVA), unspecified mechanism (HCC) Had a stroke 03/25/2024. He was having vision changes that were affecting his balance and dizziness. He had a MR brain suggest tiny area of ischemia R occipital lobe and a possible area in the L thalamus. Was noted in the ED, The thalamic lesion also doesn't correlate well with his symptoms (the R occipital lesion does). Symptoms resolved after a day. No reoccurrences. Follows neurology, last OV 04/25/[address] Fausto Scott Brian is an 79 year old male who is following up after his recent hospitalization for acute ischemic stroke. His stroke mechanism is suspected to be due to either embolic v small vessel disease. He was discharge home with an event monitor but has declined it. On today's visit the reason for the event monitor was explained to the patient and he is agreeable. For the asymptomatic right ICA stenosis, we will refer him to vascular surgeon for surveillance and possible intervention when indicated. A new event monitor was ordered for mail delivery. He will stop his Plavix and continue Aspirin 81 mg monotherapy. Continue to monitor his BP to maintain normotensive <130/80, LDL , 70 and HgA1C < 7%. All of their questions were answered to their satisfaction. Follow up with me in 6 months. He wore a monitor for 30 days and was not found to have any arrhythmias. Echo completed which showed Aortic sclerosis without stenosis, Mitral regurgitation, mild, Tricuspid regurgitation, mild, Normal atria, EF 60-65%. Had left shoulder replacement 07/25/24 without complications. Advised to stay on 81mg ASA for surgery. 4. Mixed hyperlipidemia Continue rosuvastatin (Crestor) 5. Elevated BP without diagnosis of hypertension Bp in office 117/68 continue lisinopril Last 14 Encounter BP Readings: Date: BP: 12/04/2024 117/68 07/25/2024 106/56 07/22/2024 92/59 07/02/2024 118/57 08/24/2023 113/66 07/31/2023 144/96 02/16/2023 78/46 6. Stenosis of carotid artery, unspecified laterality Follows vascular, last OV 12/02/[address] Lopez/ 7. Chronic obstructive pulmonary disease, unspecified COPD type ([facility]) Does not use inhalers. Denies recent exacerbations or hospitalizations. Denies use of oxygen. Denies cough, wheezing, SOB, orthopnea. Lungs CTAB 8. Former smoker 0.5 ppd x 15 years quit 1992 9. Obstructive sleep apnea syndrome Noncompliant on cpap 10. Gastroesophageal reflux disease without esophagitis Intermittent takes tums prn. No specific triggers. 11. Type 2 diabetes mellitus without complication, without long-term current use of insulin ([facility]) Does not consistently take fasting AM blood sugars. Advised patient that blood sugars will be checked day of surgery and recommended to be under 200 in order to proceed with surgery. A1C must be under 9.0 in order to proceed with surgery per [facility] guidelines. Most recent A1C 5.8. A1C to be completed today. Continue metformin 12. Mitral valve insufficiency, unspecified etiology 13. Aortic valve sclerosis Systolic murmur appreciated best at LLSB and apex. Was found to have trace to mild mitral regurg on echo 03/2024 and aortic sclerosis without stenosis. ANESTHESIA FINDINGS: Intubation History: No history of difficult intubation Significant Anesthesia Considerations: none Airway History: No history of difficult airway Meza Activity Status Index: METS: Walk indoors, such as around the house (1.75 METs) Do light work around the house, such as dusting or washing dishes (2.70 METs) Take care of self; that is eating, dressing, bathing, using the toilet (2.75 METs) Walk a block or two on level ground (2.75 METs) Climb a flight of stairs or walk up a hill (5.50 METs) DASI Score: 15.45 ([employer] walking at track 3 laps and bike 20 minutes 6 days a week) Patient denies any chest pain or undue shortness of breath with the above physical activity. Patient is limited most or all of the time (uses scooter, mobility device). Clinical Frailty Scale: 3. Well, with treated comorbid disease STOP-Bang Score: STOP-Bang Score: 0 (Romeo on cpap) I - PHYSICAL EVALUATION AIRWAY Patient intubated: No. Tracheostomy tube not present Mallampati: III. TM distance: >3 FB. Neck ROM: limited extension. Mouth opening: adequate. Short neck: no. Thick neck: no Lip Bite Test: I Microretrognathia/Micronagthia/Recesse d Chin: No DENTAL Normal dental observations. Dentures, upper: complete. Dentures, lower: complete. II - ANESTHESIA PLAN Beta Audrey Monitoring Plan Post Procedure Analgesic Plan Prepared for Surgery: optimally prepared for surgery pending LABS and CXR. CONSULTS: Patient does not require consults for optimization at this time. Planned Anesthetic: anesthesia choice The Following Tests/Procedures Have Been Initiated: EKG completed 07/22/24 Orders Placed This Encounter Hemoglobin A1C Standing Status: Future Expected Date: 12/04/2024 Expiration Date: 03/05/2025 docusate sodium (COLACE ORAL) Sig: Take by mouth once daily. finasteride (PROSCAR) 5 mg tablet Sig: Take 5 mg by mouth once daily. Fluorouracil (EFUDEX) 5 % cream Sig: Apply to affected area two times a day. oxyCODONE ir (OXYIR) 5 mg capsule Sig: Take 5 mg by mouth two times a day. Refill: 0 mupirocin (BACTROBAN) 2 % ointment Sig: two times a day for 5 days. Apply 0.5 inch with cotton swab (Q-tip) to each nostril in the morning and evening for 5 days prior to and including day of surgery. Dispense: 22 g Refill: 0 , EKG not indicated per [facility] protocol REASON FOR VISIT: Tyler Torres is a 79 year old male who is scheduled for Right - ARTHROPLASTY REPLACE JOINT TOTAL SHOULDER at the request of Dr. Hung Jacobsen for consultation. My final recommendation will be communicated back to the requesting physician by way of shared medical record or letter. CHIEF COMPLAINT: Shoulder pain HPI: Patient is a 79 year old male presenting for pre-anesthesia consultation friend Genny. Patient has history of left total shoulder replacement 07/2024 without complications. He is now ready for his right total shoulder replacement. He no longer has any pain in the left shoulder and has increased range of motion. He is right-handed. Currently rates right shoulder pain 6/10 and described as an aching pain without radiation. Occasionally he will have sharp pain in the shoulder, typically with movement. He has noticed a decreased range of motion and typically any upward arm or shoulder movements invoke pain. Denies any numbness or tingling in the shoulder or arm. Patient has been recommended for above surgery. Subjective ACTIVE PROBLEM LIST Chronic Right Shoulder Pain Type 2 Diabetes Mellitus Without Complication, Without Long-Term Current Use of Insulin (Hcc) Former Smoker Chronic Obstructive Pulmonary Disease (Hcc) Lumbar Stenosis With Neurogenic Claudication Status Post Lumbar Spinal Fusion Calculus of Kidney Elevated Bp Without Diagnosis of Hypertension Finding of Above Normal Blood Pressure Gastroesophageal Reflux Disease Without Esophagitis Diabetes Mellitus (Hcc) Mixed Hyperlipidemia Obstructive Sleep Apnea Syndrome Peripheral Venous Insufficiency Cva (Cerebral Vascular Accident) (Hcc) Carotid Stenosis Covid Immunization Dates Current Care Gaps Covid-19 Vaccine ( season) Overdue since 11/05/2024 05/08/2024 Imm Admin: COVID-19 vaccine, age 12+ yr (PFIZER-BIONTECH COMIRNATY) 05/15/2023 Imm Admin: COVID-19 vaccine, age 12+ yr (PFIZER-BIONTECH COMIRNATY) 06/09/2022 Imm Admin: COVID-19 vaccine, age 12+ yr, bivalent (PFIZER-BIONTECH) 12/31/2021 Imm Admin: COVID-19 original vaccine, age 12+ yr, monovalent (PFIZER-BIONTECH - LI TOP) 06/12/2021 Imm Admin: COVID-19 original vaccine, age 12+ yr, monovalent (PFIZER-BIONTECH - PURPLE TOP) Only the first 5 history entries have been loaded, but more history exists. REVIEW OF SYSTEMS: PAIN ASSESSMENT: General: No weight loss, malaise or fevers. Neuro:+CVA 03/2024 Denies seizures, lightheadedness, dizziness, syncope, headaches. Respiratory:+former smoker, copd, romeo Negative for Asthma, Current cough, Dyspnea, Home O2, Orthopnea , Pneumonia within 6 weeks (date) Cardiovascular:+hld, carotid stenosis Negative for Recent [place], Angina, Arrhythmia, CAD, Chest Pain GI:+gerd Denies abdominal pain, nausea, vomiting, diarrhea, constipation, hematochezia, melena. :+history of kidney stones Denies hematuria, dysuria, frequency, urgency, nocturia, difficulty initiating or maintaining a stream, flank pain. Endocrine: Diabetes Mellitus on oral agent Denies lightheadedness, dizziness, syncope, presyncope, fatigue, weakness. Hematology:+ASA Denies bleeding disorders, clotting disorders, history of blood clots. Oncology: No history of CA metastasis, chemo within 30 days, or radiotherapy within 90 days. Has not lost 10% of body wt in 6 months. No history of oncological symptoms or problems. Psych: No history of psychiatric symptoms or problems. Musculoskeletal: See HPI Skin: Negative for lesions, rash and itching. PAST MEDICAL HISTORY Diagnosis Date COPD (chronic obstructive pulmonary disease) (HCC) Diabetes mellitus (HCC) GERD (gastroesophageal reflux disease) HLD (hyperlipidemia) HTN (hypertension) Kidney stone ROMEO (obstructive sleep apnea) PAST SURGICAL HISTORY Procedure Laterality Date ARTHROPLASTY TOTAL SHOULDER Left 07/2024 COLONOSCOPY SCREENING PAST SURGICAL HISTORY OF 09/14/2020 lumbar surgery x2 PAST SURGICAL HISTORY OF Right cyst removed from back by right shoulder PAST SURGICAL HISTORY OF testicle removed History reviewed. No pertinent family history. Social History Tobacco Use Smoking status: Former Current packs/day: 0.00 Average packs/day: 0.5 packs/day for 15.0 years (7.5 ttl pk-yrs) Types: Cigarettes Start date: 1977 Quit date: 1992 Years since quittin.3 Smokeless tobacco: Never Tobacco comments: Quit years ago Substance Use Topics Alcohol use: Yes Alcohol/week: 2.0 standard drinks of alcohol Types: 2 Cans of Beer (12oz) per week Comment: 1 beer 2-3 days a week Drug use: Never MEDICATIONS: Prior to Admission medications as of 12/04/24 1235 Medication Sig Last Dose Taking docusate sodium (COLACE ORAL) Take by mouth once daily. Yes finasteride (PROSCAR) 5 mg tablet Take 5 mg by mouth once daily. Yes Fluorouracil (EFUDEX) 5 % cream Apply to affected area two times a day. Yes oxyCODONE ir (OXYIR) 5 mg capsule Take 5 mg by mouth two times a day. Yes acetaminophen (TYLENOL EXTRA STRENGTH) 500 mg tablet Take 2 tablets by mouth every 6 hours as needed for pain. for pain. Yes aspirin, enteric coated (ASPIRIN, ENTERIC COATED) 81 mg EC tablet Take 1 tablet by mouth two times a day for 14 days. Then, resume home dose of 1 tablet once daily. Yes rosuvastatin (CRESTOR) 20 mg tablet Take 20 mg by mouth every morning. Yes lisinopril (ZESTRIL) 10 mg tablet Take 10 mg by mouth every morning. Yes cyanocobalamin (VITAMIN B-12) 1,000 mcg tab Take 1,000 mcg by mouth once daily. Yes esomeprazole (NEXIUM) 40 mg capsule Yes DULoxetine (CYMBALTA) 30 mg capsule Take 30 mg by mouth. Yes Melatonin 5 mg cap Take 5 mg by mouth. Yes metFORMIN (GLUCOPHAGE) 500 mg tablet Take 500 mg by mouth. Yes tamsulosin (FLOMAX) 0.4 mg Take 0.4 mg by mouth. Yes mupirocin (BACTROBAN) 2 % ointment two times a day for 5 days. Apply 0.5 inch with cotton swab (Q-tip) to each nostril in the morning and evening for 5 days prior to and including day of surgery. No medication comments found. CURRENT ALLERGIES: ALLERGIES Allergen Reactions Simvastatin Unknown Objective PHYSICAL EXAM: VITALS: Pain Pain Level: 5 Pain Location: Shoulder-Right Description: Aching, Throbbing Duration Amount of Time: (Patient-Rptd) 24 Duration Units: Years Frequency: Intermittent Intervention/Comfort measure: (Patient-Rptd) Reposition BP 117/68 Pulse 76 Temp (Src) 97.8 (Temporal) Resp 18 Ht 5' 8 (1.73m) Wt 171 lb 15.3 oz (78.0kg) SpO2 100% BMI 26.15 kg/(m^2). General: Alert and oriented, No acute distress Skin: Normal color, no rash, no lesions. HEENT: EOM, pupils equal, round and reactive. Cardiovascular: Pulse regular. 2/6 mid systolic medium pitched blowing murmur LSB, LLSB, and LSB Lungs: Normal breath sounds, no wheezes or crackles. Abdomen: Soft, non-tender, no rigidity., Positive bowel sounds Extremities: No deformity, no edema or tenderness, no joint swelling or clubbing. Neurological: Normal cognition and motor skills. Pulses: Carotid and radial pulses normal +2. Pedal pulses normal +2. Diagnostic tests reviewed for today's visit: Lab Value Units Date High Low HB 10.1 g/dL 07/26/2024 17.0 13.0 HCT 31.2 % 07/26/2024 51.0 39.0 WBC 6.43 k/uL 07/26/2024 11.00 3.70 PLT 191 k/uL 07/26/2024 400 150 NA 137 mmol/L 07/26/2024 144 136 K 4.0 mmol/L 07/26/2024 5.1 3.7 GLUC 128 mg/dL 07/26/2024 99 74 BUN 16 mg/dL 07/26/2024 24 9 CREAT 0.83 mg/dL 07/26/2024 1.22 0.73 PTSEC No results within date range. INR No results within date range. APTT No results within date range. ALT 13 U/L 07/26/2024 54 10 AST 17 U/L 07/26/2024 40 14 TBILI 0.3 mg/dL 07/26/2024 1.3 0.2 TSH No results within date range. Lab Value Units Date High Low HCGQT No results within date range. UHCG No results within date range. HCG, BODY* No results within date range. Lab Value Units Date High Low ABORHD No results within date range. ABSCREEN No results within date range. Hemoglobin A1C (%) Date Value 07/31/2023 5.8 Recent Results (from the past 8760 hours) ECG COMPLETE Collection Time: 07/22/24 2:07 PM Result Value Ventricular Rate 69 Atrial Rate 69 P-R Interval 174 QRS Duration 82 QT Interval 372 QTC Calculation (Bazett) 398 Calculated P [place] 23 Calculated R [place] 9 Calculated T [place] 73 Impression NORMAL SINUS RHYTHM NORMAL ECG Confirmed by STEVEN KHALIL MD ([id number]) on 07/23/2024 9:38:18 PM carotids 11/26/24 found in care everywhere Previous: Previous carotid duplex exam performed 03/25/2024. [...] 25, 2024, no significant changes were noted. Event monitor 05/01/24 found in care everywhere Wireless event monitoring was worn for a total of 30 days. For the indication of cerebral infarction. There were a total of 7 auto triggered transmissions. All of which corresponded to sinus rhythm or sinus tachycardia there was 1 8 beat run of ventricular nonsustained tachycardia. At a heart rate of 164 beats per minute. No symptoms were recorded. Echo 03/25/24 found in care everywhere Left ventricle appears normal in size with moderate focal basal increased wall thickness/hypertrophy. Remaining wall segments are mildly increased. Systolic function is normal with an ejection fraction of 60-65% and no segmental wall motion abnormalities. Aortic sclerosis without stenosis Mitral regurgitation, mild Tricuspid regurgitation, mild Normal atria Left Ventricle Left ventricle appears normal in size. There is moderate focal basal increased wall thickness/hypertrophy. Remaining wall segments are mildly increased. Systolic function is normal with an ejection fraction of 60-65%. No obvious regional wall motion abnormalities. There is no diastolic dysfunction and normal left atrial pressure. Lateral E' is 7.06 cm/s. Medial E' is 4.93 cm/s. Average E' is 6.0 cm/s. Right Ventricle Right ventricular size appears normal. The right ventricular basal diameter is 25.8 mm. Systolic function visually appears normal. Left Atrium Left atrium volume index is normal. The left atrial volume index is 24.0 mL/m2. Right Atrium Right atrium is normal in size. The right atrial area is 12.1 cm2. IVC/SVC The right atrial pressure is estimated at 3 mmHg. IVC appears normal. There is normal collapse with deep inspiration. Mitral Valve Mitral valve structure is normal. The chordae are thickened/calcified. There is [id number] regurgitation. There is no evidence of mitral valve stenosis. Tricuspid Valve Tricuspid valve appears to be normal. There is mild regurgitation. RVSP calculated at 32 mmHg. RVSP is based on RA pressure of 3 mmHg. Aortic Valve The aortic valve is trileaflet. The leaflets exhibit focal thickening. There is sclerosis. There is trace to mild regurgitation. There is no evidence of aortic valve stenosis. Pulmonic Valve The pulmonic valve was not well visualized. There is trace to mild regurgitation. Ascending Aorta The aortic root is normal in size. Pericardium There is no pericardial effusion. The pericardium has a fat pad. Study Details A complete echo was performed using complete 2D, color flow Doppler and spectral Doppler. Overall the study quality was adequate. Instructions Given to Patient: Instructions located in the after visit summary. Patient given verbal and written preop instructions and voices comprehension and compliance. SIGNATURE: Aline Jones PA-C PATIENT NAME: Tyler Torres DATE: 12/04/2024 TIME: 1:09 PM PAGER/CONTACT #: documented in this encounter [facility] 12-03-2024 Miscellaneous Notes Refill request, contract signed documented in this encounter [facility] 12-03-2024 Telephone encounter Note Refill request, contract signed [facility] 12-02-2024 History of Present illness Narrative Images from the original note were not included. CC: Chief Complaint Patient presents with Follow-up Testing done- denies dizziness at present 79 y.o. male w/ h/o GERD, back surgery, ROMEO, HLD , DM-2, and asymptomatic carotid artery disease. 03/2024: double vision -MRI brain 03/25/24: Punctate foci of acute ischemia in the right occipital cortex and questionably in the inferomedial left thalamus. FRAME ALIGNER 05/28/24 (Dr. Gail Quispe) - carotid duplex and RTC 6 mo. 12/02/24: Pt state since he was last seen in office he has overall been same. H/o previous back surgery in 2021 w/ significant complications. Had spinal surgery redone approx 1 yr ago at [facility]. Continues w/ ongoing LE and back pain. +difficulty sleeping due to pain. Only able to sleep sitting up in [employer] recliner. + limited L hip flexion. Continues working out at the trying to work on strength. Denies acute vision loss/amaurosis, focal neuro changes and/or stroke-like symptoms. No open wounds/tissue loss. Patient Active Problem List Diagnosis Type 2 diabetes mellitus without complication, without long-term current use of insulin [place] Gastroesophageal reflux disease without esophagitis Generalized osteoarthritis ROMEO (obstructive sleep apnea) Mixed hyperlipidemia Hypercalcemia Dizziness Double vision Elevated BP without diagnosis of hypertension CVA (cerebral vascular accident) ([facility]) BP 118/71 (BP Site: Right Arm, BP Postition: Sitting) Pulse 76 Wt 78.9 kg (174 lb) BMI 26.65 kg/m Past Medical History: Diagnosis Date Arthritis COPD (chronic obstructive pulmonary disease) ([facility] Diabetes mellitus [place] GERD (gastroesophageal reflux disease) HL (hearing loss) ROMEO (obstructive sleep apnea) Shingles Past Surgical History: Procedure Laterality Date COLONOSCOPY ESOPHAGOGASTRODUODENOSCOPY SKIN BIOPSY SPINE SURGERY VASECTOMY ROS: Review of Systems Respiratory: Negative for shortness of breath. Cardiovascular: Negative for chest pain and leg swelling. former smoker - quit 40 yrs ago History of: + h/o CVA (03/25/24: Punctate foci of acute ischemia in the right occipital cortex and questionably in the inferomedial left thalamus) no h/o: DVT, PE + h/o: HTN no h/o: PAD, PVD, claudication no h/o: dilated LE veins/varicose veins + h/o: DM no family history of aneurysms Physical Exam: Physical Exam Vitals and nursing note reviewed. Constitutional: Appearance: Normal appearance. HENT: Head: Normocephalic and atraumatic. Pulmonary: Effort: Pulmonary effort is normal. Musculoskeletal: General: Normal range of motion. Comments: Moving all ext equally Skin: General: Skin is warm and dry. Neurological: General: No focal deficit present. Mental Status: He is alert and oriented to person, place, and time. Psychiatric: Attention and Perception: Attention normal. Mood and Affect: Mood normal. Speech: Speech normal. Behavior: Behavior is cooperative. Testing Reviewed: CBC with Differential: Lab Results Component Value Date WBC 6.6 03/24/2024 HGB 13.9 03/24/2024 HCT 42.2 03/24/2024 PLT 263 03/24/2024 MCV 84 03/24/2024 MCH 27.8 03/24/2024 MCHC 33.0 03/24/2024 RDW 17.5 (H) 03/24/2024 BNP: No results found for: BNP 03/24/25 - CTA carotid: Assessment: Encounter Diagnosis Name Primary? Bilateral carotid artery stenosis Tyler was seen today for follow-up. Diagnoses and all orders for this visit: Bilateral carotid artery stenosis - Vas carotid duplex bilateral; Future Plan of care: Please note that total time spent was 20 minutes: Including but not limited to: Preparing to see the patient (e.g., review of tests) Obtaining and/or reviewing separately obtained history Performing a medically appropriate examination and evaluation Counseling and educating the patient/family/caregiver Ordering medications, tests, or procedures Documenting visit details Tyler was seen today for follow-up. Diagnoses and all orders for this visit: Bilateral carotid artery stenosis - Vas carotid duplex bilateral; Future Tyler Torres is a 79 y.o. White or male with h/o GERD, back surgery, ROMEO, HLD , DM-2, and asymptomatic carotid artery disease. 03/2024: double vision -MRI brain 03/25/24: Punctate foci of acute ischemia in the right occipital cortex and questionably in the inferomedial left thalamus. CVA: 03/2024 Suspected embolic in nature per neuroIR. Embolic w/u (ECHO, 30 day event) negative. Continue to follow w/ neuroIR as scheduled Asymptomatic carotid artery disease: Testing summary: 03/24/24 - CTA carotid: R - 60% ICA stenosis. L - plaque w/ no significant stenosis. 11/26/24 - US: R - borderline 50-69% ICA stenosis, L <50% ICA stenosis No indication for surgical intervention unless symptomatic w/ >50% stenosis or asymptomatic w/ disease progression >70-80% Continue w/ medical mgmt Surveillance plan: repeat carotid duplex every 6 mo to monitor for disease progression. Next due 05/2025. Medical mgmt: Anti-platelet: ASA Statin: crestor 20 mg daily Return to clinic after next surveillance carotid duplex completed to review results and discuss further plan of care. SIGNATURE: Adriana Lopez DO CC: MD Susie Arguello, Armando Preciado MD documented in this encounter [facility] 11-29-2024 History of Present illness Narrative Subjective Patient ID: Tyler Torres is a 79 y.o. male. Comes in for medication check. He is doing reasonably well but does not have the level of function that he thinks he should have. He uses oxycodone twice daily and that generally controls his pain and helps him to sleep. He does not note any side effects. There has been no irregular use. The following portions of the patient's history were reviewed and updated as appropriate: allergies, current medications, past medical history, past social history, past surgical history, and problem list. Review of Systems Objective Physical Exam Constitutional: Comments: He is in good spirits and gets around OK in the office. Neurological: Mental Status: Mental status is at baseline. Assessment/Plan Medication use reviewed and remains beneficial for controlling his pain symptoms. Follow up 6 months for his wellness. Diagnoses and all orders for this visit: Generalized osteoarthritis documented in this encounter [facility] 11-28-2024 Instructions Aline Jones PA-C - 11/28/2024 11:16 AM EDT [facility] Perioperative Medicine Pre-Anesthesia Consultation Clinic PATIENT PREOPERATIVE INSTRUCTIONS Hung Jacobsen MD has scheduled you for your procedure at this surgery center: [facility]: [phone] --[address] [place] [address]. On your scheduled day of surgery, please report to Patient Registration, ground floor Please read below carefully for your personalized instructions. Arrival Time for Surgery: - The Surgery Center or hospital where you are having surgery will call the afternoon before surgery (or Monday for Monday surgery) with a scheduled arrival time. - If you have not heard by 4 pm, please contact the surgery center above. Please be aware that emergency situations arise, which may delay or change your surgical time. If this happens, we will notify you as soon as possible and regret any inconvenience. Dietary Restrictions: - No solid food after midnight. - You may have 12 ounces of clear liquids (water, clear juices such as apple juice or gatorade, carbonated beverages, clear tea, black coffee, jello) until 2 hours before scheduled arrival at facility. Medications: Unless instructed differently below, stay on all of your medications until your surgery. Approved medications to take the morning of surgery with a sip of water: rosuvastatin (Crestor), esomeprazole (Nexium), tamsulosin (Flomax), duloxetine (Cymbalta) Is Patient Diabetic:Yes Preoperative Instructions for Patient's with Diabetes Mellitus Diabetic Medication Instructions:Please take the following meds at your usual dose the day before surgery. DO NOT TAKE THE MORNING OF SURGERY; Metformin If you take any medications for erectile dysfunction-Cialis (Tadalafil), Levitra, Staxyn (Vardenafil) Viagra (Sildenenafil please do not take these for 48 hours before surgery. If you start any new medications after today's visit, please contact the surgeon's office. If you are currently using a irea-asd-riow injectable or oral medication for diabetes or weight loss such as Dulaglutide (Trulicity), Exenatide (Byetta, Bydureon), Liraglutide (Victoza, Saxenda), Semaglutide (Ozempic, Wegovy, Rybelsus), or Tirzepatide (Mounjaro), the medicine should be stopped at least 7 days before surgery. These medicines can cause food to remain in your stomach for a very long time and increase the risks from surgery and anesthesia. Not stopping the medication for a long enough time may result in your surgery being rescheduled. Blood Thinning Medications: - Stop NSAIDS (Ibuprofen, Advil, Aleve, Motrin, Celebrex, Mobic, etc.) 7 days before surgery, as directed by your surgeon. - Do NOT stop aspirin or other anticoagulants without consulting with your quad stayer or prescribing physician. - Stop ALL herbal and dietary supplements 7 days before surgery. - You may take Tylenol (Acetaminophen) or any of your pain medications that do not contain aspirin or NSAIDS as needed. Important Reminders: - Use nasal ointment for 5 days before and day of surgery in both nostril 2 times per day. - If you use CPAP/BIPAP, bring the machine with you to the surgery center. - If you are prescribed inhalers for breathing, continue using them. - Candy, mints, and tobacco products are NOT permitted the morning of surgery. - Hearing aids and glasses may be worn the morning of surgery. - You may wear partials and dentures morning of surgery, but you may be asked to remove them prior to your procedure. - NO jewelry, body piercings, makeup, hairpins or contacts are to be worn the day of surgery. If you develop symptoms such as a fever, cold, or flu, or have other changes to your health within TWO DAYS of scheduled surgery or the morning of surgery, please contact the surgery center above. Personal Belongings: -Please have photo ID and insurance cards. -If you do not have a copy of advance directives on file with us, please bring a copy with you on the day of surgery. - Leave ALL valuables and money at home or with family members. For Outpatient Procedures: - YOU MUST HAVE A RESPONSIBLE SOCIAL SCIENCE ANALYST TAKE YOU HOME. A CORPORATE COMMUNICATIONS MANAGER OR SOFTWARE DEVELOPER CONSULTANT CANNOT BE MADE A RESPONSIBLE SOCIAL SCIENCE ANALYST. - We recommend that a responsible person stays with you overnight to take care of you. - You cannot stay in a hotel alone after outpatient surgery. You will not be permitted to have your surgery, if you do not have someone to take care of you. If you already have an Advance Directive, please fax a copy to [phone] or email to for it to be added to your chart. If you do not have an Advance Directive, you can find the appropriate form and more information at [email or web address]. We recommend that you complete the Advance Directive form found on the website and bring it with you the day of your surgery. It can be witnessed and scanned into your chart that day. Aline Jones PA-C documented in this encounter [facility] 11-18-2024 Hospital Discharge instructions Patient Education 11/18/2024 12:01:15 EU - Cystoscopy with Stent Removal Discharge Instructions (CUSTOM) Cystoscopy with Stent Removal Voiding after the procedure: there may be some pain, burning, urgency, frequency and blood tinged urine following the procedure. These symptoms usually resolve within 2-5 days. Drink the amount of fluid it takes to keep the urine pink to yellow or clear in color. Drinking enough water and fluids will help to ease any discomfort after your procedure. If you are having problems that seem out of the ordinary, please call. If unable to contact your physician and you feel it is an emergency, go to the nearest emergency room or call 911 Diet you may resume your normal diet. Activity you may resume your normal activities Call if you have a fever over 100 degrees. Follow Up Care 11/07/2024 15:22:42 With:Olu Sosa Address: [address] [place] [phone] Business (1) When: Unknown Comments:Obtain renal US in 6 weeks, call for results. Office to schedule routine follow up in 6 months with renal US [facility] 11-18-2024 Note Patient Education Cystoscopy with Stent Removal ??? Voiding after the procedure: there may be some pain, burning, urgency, frequency and blood tinged urine following the procedure. These symptoms usually resolve within 2-5 days. Drink the amount of fluid it takes to keep the urine pink to yellow or clear in color. Drinking enough water and fluids will help to ease any discomfort after your procedure. ??? If you are having problems that seem out of the ordinary, please call. ??? If unable to contact your physician and you feel it is an emergency, go to the nearest emergency room or call 911 ??? Diet ??? you may resume your normal diet. ??? Activity ??? you may resume your normal activities ??? Call if you have a fever over 100 degrees. [facility] 11-01-2024 History of Present illness Narrative Subjective Patient ID: Tyler Torres is a 79 y.o. male. Comes in for preoperative evaluation. He has a ureteral stone on the right and is going to have a stent placed. Surgical history reviewed and he has no history of anesthesia complication. He had preoperative labs and an EKG as well as a chest x-ray done and those have been reviewed and are unremarkable. He is on low-dose aspirin daily. He had been on Plavix also following what was thought to be a TIA event. He is off of that now and on single antiplatelet medication in the form of aspirin. He denies any chest pain or trouble breathing. His shoulder continues to bother him and he is going to have that fixed in December. The following portions of the patient's history were reviewed and updated as appropriate: allergies, current medications, past family history, past medical history, past social history, past surgical history, and problem list. Review of Systems Objective Physical Exam Constitutional: Comments: He looks well. Blood pressure normal. Neck: Vascular: No carotid bruit. Cardiovascular: Rate and Rhythm: Normal rate and regular rhythm. Heart sounds: No gallop. Comments: Systolic murmur over the aortic valve which is known to be aortic sclerosis without stenosis by echo. Pulmonary: Effort: Pulmonary effort is normal. Breath sounds: Normal breath sounds. Musculoskeletal: Right lower leg: No edema. Left lower leg: No edema. Neurological: Mental Status: He is alert. Assessment/Plan He will hold his aspirin for a week prior to the surgical procedure. He is medically cleared at usual low risk. Diagnoses and all orders for this visit: Right ureteral stone Generalized osteoarthritis documented in this encounter [facility] 10-31-2024 Miscellaneous Notes Refill request documented in this encounter [facility] 10-31-2024 Telephone encounter Note Refill request [facility] 10-24-2024 History of Present illness Narrative Patient: Tyler Torres : 1945 PCP: No primary care provider on file. SUBJECTIVE This is a 79 y.o. male that presents today with a CC of elongated, thick nails. Pt states nails have been elongated and thick for many years and cause pain with ambulation in shoegear. Pt has tried previous treatment with minimal relief. Pt presents today for nail care and treatment. positive hx of venous stasis to b/l legs. Patient is type 2 diabetic Allergies: No Known Allergies Past Medical History: Past Medical History: Diagnosis Date History of esophagogastroduodenoscopy (EGD) 2015 and colonoscopy History of esophagogastroduodenoscopy (EGD) 2018 for esophageal stricture Hyperlipidemia ([facility]) Leg pain Lower back pain Neuropathy in diabetes ([facility]) Onychomycosis S/P epidural steroid injection 2013 Tinea pedis Medications: Current Outpatient Medications: celecoxib (CeleBREX) 200 MG capsule, Take 200 mg by mouth in the morning., Disp: , Rfl: cetirizine (ZyrTEC) 10 MG tablet, Take 10 mg by mouth 1 (one) time each day at the same time., Disp: , Rfl: cholecalciferol (Vitamin D-3) 50 MCG (1999) capsule, Take 2,000 Units by mouth in the morning., Disp: , Rfl: esomeprazole (NexIUM) [address] capsule, Take 40 mg by mouth in the morning and 40 mg before bedtime., Disp: , Rfl: gabapentin (Neurontin) 300 MG capsule, Take 600 mg by mouth in the morning and 600 mg in the evening and 600 mg before bedtime., Disp: , Rfl: meloxicam (Mobic) 15 MG tablet, Take 15 mg by mouth 1 (one) time each day at the same time., Disp: , Rfl: metFORMIN (Glucophage) 500 MG tablet, Take 500 mg by mouth 1 (one) time each day at the same time., Disp: , Rfl: omeprazole (PriLOSEC) [address] capsule, Take 1 capsule by mouth 1 (one) time each day at the same time., Disp: , Rfl: oxyCODONE (Roxicodone) 5 MG immediate release tablet, Take 5 mg by mouth in the morning and 5 mg in the evening., Disp: , Rfl: tamsulosin (Flomax) 0.4 MG 24 hr capsule, , Disp: , Rfl: Social History: Social History Socioeconomic History Marital status: Spouse name: Not on file Number of children: Not on file Years of education: Not on file Highest education level: Not on file Occupational History Not on file Tobacco Use Smoking status: Former Current packs/day: 0.00 Types: Cigarettes Start date: 1968 Quit date: 1978 Years since quittin.2 Passive exposure: Past Smokeless tobacco: Never Vaping Use Vaping status: Unknown Substance and Sexual Activity Alcohol use: Yes Alcohol/week: 4.0 standard drinks of alcohol Types: 4 Standard drinks or equivalent per week Comment: 4 or more times a week Drug use: Never Sexual activity: Defer Partners: Decline to Answer Other Topics Concern Not on file Social History Narrative Not on file Social Drivers of Health Financial Resource Strain: Low Risk (08/24/2023) Received from [facility], [facility] Overall Financial Resource Strain (CARDIA) Difficulty of Paying Living Expenses: Not hard at all Food Insecurity: No Food Insecurity (05/29/2024) Received from [facility] Hunger Screening Within the past 12 months we worried whether our food would run out before we got money to buy more.: Never True Within the past 12 months the food we bought just didn't last and we didn't have money to get more.: Never True Transportation Needs: No Transportation Needs (03/24/2024) Received from [facility] PRAPARE - Transportation Lack of Transportation (Medical): No Lack of Transportation (Non-Medical): No Physical Activity: Not on file Stress: Not on file Social Connections: Not on file Intimate Partner Violence: Not on file Housing Stability: Low Risk (03/24/2024) Received from [facility] Housing Instability Are you worried or concerned that in the next two months you may not have stable housing that you own, rent or stay in as a part of a household?: No ROS: General: denies fever, chills, fatigue, malaise OBJECTIVE LE EXAM: DERM: Elongated thick yellow crumbly nails digits 1 through 10. Positive hair growth b/l feet. +1 pitting edema to b/l ankles VASC: Positive palpable pedal pulses bilaterally NEURO: positive sensation to b/l feet with 5.07 SWM filament to digits and tuning fork sensation positive to first MPJ regions b/l ORTHO: Positive pain on palpation to toenails of the left 1,2,3,4,5 toes and right 1,2,3,4,5 toes ASSESSMENT 1. Type 2 diabetes mellitus without complication, with long-term current use of insulin ([facility]) 2. Pain due to onychomycosis of toenails of both feet PLAN Discussed proper foot care with patient today. Debride nails in length and thickness digits 1 through 10 Pt to continue with compression stockings daily and keep feet elevated when NWB. Patient educated today on proper diabetic foot care including monitoring feet daily for any signs of infection openings in the skin or irregularities to both feet. Patient had a diabetic neurological exam today to both their feet and discussed proper shoe gear. Manan Bkaer DPM documented in this encounter [facility] 10-16-2024 Hospital Discharge instructions Patient Education 10/16/2024 11:58:58 Kidney Stones, [id number] Kidney Stones Kidney stones are rock-like masses that form inside of the kidneys. Kidneys are organs that make pee (urine). A kidney stone may move into other parts of the urinary tract, including: The tubes that connect the kidneys to the bladder (ureters). The bladder. The tube that carries urine out of the body (urethra). Kidney stones can cause very bad pain and can block the flow of pee. The stone usually leaves your body through your pee. A doctor may need to take out the stone. What are the causes? Kidney stones may be caused by: Too much calcium in the body. This may be caused by too much parathyroid hormone in the blood. Uric acid crystals in the bladder. The body makes uric acid when you eat certain foods. Narrowing of one or both of the ureters. A kidney blockage that you were born with. Past surgery on the kidney or the ureters. What increases the risk? You are more likely to develop this condition if: You have had a kidney stone in the past. Other people in your family have had kidney stones. You do not drink enough water. You eat a diet that is high in protein, salt (sodium), or sugar. You are very overweight (obese). What are the signs or symptoms? Symptoms of a kidney stone may include: Pain in the side of the belly, right below the ribs. Pain usually spreads to the groin. Needing to pee often or right away. Pain when peeing. Blood in your pee. Feeling like you may vomit (nauseous). Vomiting. Fever and chills. How is this treated? Treatment depends on the size, location, and makeup of the kidney stones. The stones will often pass out of the body when you pee. You may need to: Drink more fluid to help pass the stone. ?In some cases, you may be given fluids through an IV tube at the hospital. Take medicine for pain. Change your diet to help keep kidney stones from coming back. Sometimes, you may need: A procedure to break up kidney stones using a beam of light (laser) or shock waves. Surgery to remove the kidney stones. Follow these instructions at home: Medicines Take cnxt-qmr-aetffhq and prescription medicines only as told by your doctor. Ask your doctor if the medicine prescribed to you requires you to avoid driving or using machinery. Eating and drinking Drink enough fluid to keep your pee pale yellow. ?You may be told to drink at least 8 10 glasses of water each day. This will help you pass the stone. If told by your doctor, change your diet. You may be told to: ?Limit how much salt you eat. ?Eat more fruits and vegetables. ?Limit how much meat, poultry, fish, and eggs you eat. Follow instructions from your doctor about what you may eat and drink. General instructions Collect pee samples as told by your doctor. You may need to collect a pee sample: ?24 hours after a stone comes out. ?8 12 weeks after a stone comes out, and every 6 12 months after that. Strain your pee every time you pee. Use the strainer that your doctor recommends. Do not throw out the stone. Keep it so that it can be tested by your doctor. Keep all follow-up visits. You may need X-rays and ultrasounds to make sure the stone has come out. How is this prevented? To prevent another kidney stone: Drink enough fluid to keep your pee pale yellow. This is the best way to prevent kidney stones. Eat healthy foods. Avoid certain foods as told by your doctor. You may be told to eat less protein. Stay at a healthy weight. Where to find more information National Kidney Foundation (NKF): kidney.org Urology Care Foundation (F): urologyhealth.org Contact a doctor if: You have pain that gets worse or does not get better with medicine. Get help right away if: You have a fever or chills. You get very bad pain. You get new pain in your belly. You faint. You cannot pee. This information is not intended to replace advice given to you by your health care provider. Make sure you discuss any questions you have with your health care provider. Document Revised: 03/24/2023 Document Reviewed: 03/24/2023 [employer] Patient Education 2023 [employer]. Follow Up Care 10/04/2023 11:04:51 With:Khoi METZ, MILTON Watts, URO Address: When: Unknown [facility] 10-16-2024 Note Patient Education Urology Kidney Stones Kidney stones are rock-like masses that form inside of the kidneys. Kidneys are organs that make pee (urine). A kidney stone may move into other parts of the urinary tract, including: ??? The tubes that connect the kidneys to the bladder (ureters). ??? The bladder. ??? The tube that carries urine out of the body (urethra). Kidney stones can cause very bad pain and can block the flow of pee. The stone usually leaves your body through your pee. A doctor may need to take out the stone. What are the causes? Kidney stones may be caused by: ??? Too much calcium in the body. This may be caused by too much parathyroid hormone in the blood. ??? Uric acid crystals in the bladder. The body makes uric acid when you eat certain foods. ??? Narrowing of one or both of the ureters. ??? A kidney blockage that you were born with. ??? Past surgery on the kidney or the ureters. What increases the risk? You are more likely to develop this condition if: ??? You have had a kidney stone in the past. ??? Other people in your family have had kidney stones. ??? You do not drink enough water. ??? You eat a diet that is high in protein, salt (sodium), or sugar. ??? You are very overweight (obese). What are the signs or symptoms? Symptoms of a kidney stone may include: ??? Pain in the side of the belly, right below the ribs. Pain usually spreads to the groin. ??? Needing to pee often or right away. ??? Pain when peeing. ??? Blood in your pee. ??? Feeling like you may vomit (nauseous). ??? Vomiting. ??? Fever and chills. How is this treated? Treatment depends on the size, location, and makeup of the kidney stones. The stones will often pass out of the body when you pee. You may need to: ??? Drink more fluid to help pass the stone. ? In some cases, you may be given fluids through an IV tube at the hospital. ??? Take medicine for pain. ??? Change your diet to help keep kidney stones from coming back. Sometimes, you may need: ??? A procedure to break up kidney stones using a beam of light (laser) or shock waves. ??? Surgery to remove the kidney stones. Follow these instructions at home: Medicines ??? Take strq-loq-dwppfsq and prescription medicines only as told by your doctor. ??? Ask your doctor if the medicine prescribed to you requires you to avoid driving or using machinery. Eating and drinking ??? Drink enough fluid to keep your pee pale yellow. ? You may be told to drink at least 8?10 glasses of water each day. This will help you pass the stone. ??? If told by your doctor, change your diet. You may be told to: ? Limit how much salt you eat. ? Eat more fruits and vegetables. ? Limit how much meat, poultry, fish, and eggs you eat. ??? Follow instructions from your doctor about what you may eat and drink. General instructions ??? Collect pee samples as told by your doctor. You may need to collect a pee sample: ? 24 hours after a stone comes out. ? 8?12 weeks after a stone comes out, and every 6?12 months after that. ??? Strain your pee every time you pee. Use the strainer that your doctor recommends. ??? Do not throw out the stone. Keep it so that it can be tested by your doctor. ??? Keep all follow-up visits. You may need X-rays and ultrasounds to make sure the stone has come out. How is this prevented? To prevent another kidney stone: ??? Drink enough fluid to keep your pee pale yellow. This is the best way to prevent kidney stones. ??? Eat healthy foods. ??? Avoid certain foods as told by your doctor. You may be told to eat less protein. ??? Stay at a healthy weight. Where to find more information ??? National Kidney Foundation (NKF): kidney.org ??? Urology Care Foundation (UCF): urologyhealth.org Contact a doctor if: ??? You have pain that gets worse or does not get better with medicine. Get help right away if: ??? You have a fever or chills. ??? You get very bad pain. ??? You get new pain in your belly. ??? You faint. ??? You cannot pee. This information is not intended to replace advice given to you by your health care provider. Make sure you discuss any questions you have with your health care provider. Document Revised: 03/24/2023 Document Reviewed: 03/24/2023 [employer] Patient Education ? 2023 [employer]. [facility] 10-15-2024 Note HNO ID: [id number] Author: HUNG JACOBSEN MD Service: ? Author Type: Physician Type: Progress Notes Filed: 10/15/2024 16:32 Note Text: SHOULDER/ELBOW ESTABLISHED VISIT SERVICE DATE: 10/15/2024 PCP: Armando Richards MD, MD Date of Surgery: 07/25/24 Surgery: Left Reverse Shoulder Replacement Follow-up time: 3 months SUBJECTIVE HISTORY OF PRESENT ILLNESS: 79 year old male 3 months out from surgery. Doing well. Has been compliant with exercise and restrictions. Able to stand from chair without assistance. ACTIVE PROBLEM LIST Chronic Right Shoulder Pain Type 2 Diabetes Mellitus Without Complication, Without Long-Term Current Use of Insulin ([facility]) Former Smoker Chronic Obstructive Pulmonary Disease ([facility]) Lumbar Stenosis With Neurogenic Claudication Status Post Lumbar Spinal Fusion Calculus of Kidney Elevated Bp Without Diagnosis of Hypertension Finding of Above Normal Blood Pressure Gastroesophageal Reflux Disease Without Esophagitis Diabetes Mellitus ([facility]) Mixed Hyperlipidemia Obstructive Sleep Apnea Syndrome Peripheral Venous Insufficiency Cva (Cerebral Vascular Accident) ([facility]) Carotid Stenosis ALLERGIES Allergen Reactions Simvastatin Unknown MEDICATIONS: acetaminophen (TYLENOL EXTRA STRENGTH) 500 mg tablet Take 2 tablets by mouth every 6 hours as needed for pain. for pain. aspirin, enteric coated (ASPIRIN, ENTERIC COATED) 81 mg EC tablet Take 1 tablet by mouth two times a day for 14 days. Then, resume home dose of 1 tablet once daily. rosuvastatin (CRESTOR) 20 mg tablet Take 20 mg by mouth every morning. lisinopril (ZESTRIL) 10 mg tablet Take 10 mg by mouth every morning. cyanocobalamin (VITAMIN B-12) 1,000 mcg tab Take 1,000 mcg by mouth once daily. MULTIVITAMIN ORAL Take by mouth once daily. esomeprazole (NEXIUM) 40 mg capsule DULoxetine (CYMBALTA) 30 mg capsule Take 30 mg by mouth. Melatonin 5 mg cap Take 5 mg by mouth. metFORMIN (GLUCOPHAGE) 500 mg tablet Take 500 mg by mouth. tamsulosin (FLOMAX) 0.4 mg Take 0.4 mg by mouth. OBJECTIVE There were no vitals taken for this visit. PHYSICAL EXAMINATION: Alert and oriented x3, ambulates easily to exam table without assistance Painless neck ROM in all planes. Negative Spurling's. No radiating numbness or tingling past elbows. No visibile head, eyes, ear, neck, throat deformities Left shoulder range of motion today is 120/50/posterior left buttock. On the right side is 80/50/SI joint. External rotation 4+ out of 5. Axillary, Long Thoracic, CN XI, Median, Ulnar, Radial, musculocutaneous nerves intact to motor and sensation. Fingers warm and well perfused, BCR< 2sec. Radial Pulse 2+ RADIOGRAPHIC RESULTS: Imaging was personally reviewed by myself today X-rays of the left shoulder show reverse replacement good position. Unchanged from previous. No fracture or dislocation. X-rays right shoulder show severe glenohumeral arthritis with severe joint line medialization and glenoid bone loss. ASSESSMENT Right glenohumeral arthritis, left reverse shoulder placement 3 months out PLAN DIAGNOSIS: (M25.511, G89.29) Chronic right shoulder pain (primary encounter diagnosis) (Z47.1, Z96.612) Aftercare following left shoulder joint replacement surgery (M19.011) Glenohumeral arthritis, right Severe right glenohumeral arthritis. Left reverse shoulder placement 3 months out. Doing well. Would like to get his right side completed. Discussed reverse shoulder placement. and the postoperative course. Discussed preoperative CT scan. Will get him scheduled. Risks, Benefits, Alternatives of reverse total shoulder right surgery discussed with patient and their family. They are aware of the risks including but not limited to infection, bleeding/vessel injury, nerve injury, DVT, PE, hardware failure and complications, need for revision surgery, fracture and wound healing issues. Discussion of anesthetic complications including block related complications, post-op medical complications such as [place]/pneumonia/etc, and were also discussed, and patient advised to discuss further with preoperative clearance physicians and anesthesia team prior to surgery. All questions were answered for patient today, they should not hesitate to call the office with any issues. Medical Decision Making: Medical Decision Making Level: 1 - N/A Hung Jacobsen MD [facility] 10-15-2024 History of Present illness Narrative SHOULDER/ELBOW ESTABLISHED VISIT SERVICE DATE: 10/15/2024 PCP: Armando Richards MD, MD Date of Surgery: 07/25/24 Surgery: Left Reverse Shoulder Replacement Follow-up time: 3 months SUBJECTIVE HISTORY OF PRESENT ILLNESS: 79 year old male 3 months out from surgery. Doing well. Has been compliant with exercise and restrictions. Able to stand from chair without assistance. ACTIVE PROBLEM LIST Chronic Right Shoulder Pain Type 2 Diabetes Mellitus Without Complication, Without Long-Term Current Use of Insulin ([facility]) Former Smoker Chronic Obstructive Pulmonary Disease ([facility]) Lumbar Stenosis With Neurogenic Claudication Status Post Lumbar Spinal Fusion Calculus of Kidney Elevated Bp Without Diagnosis of Hypertension Finding of Above Normal Blood Pressure Gastroesophageal Reflux Disease Without Esophagitis Diabetes Mellitus ([facility]) Mixed Hyperlipidemia Obstructive Sleep Apnea Syndrome Peripheral Venous Insufficiency Cva (Cerebral Vascular Accident) ([facility]) Carotid Stenosis ALLERGIES Allergen Reactions Simvastatin Unknown MEDICATIONS: acetaminophen (TYLENOL EXTRA STRENGTH) 500 mg tablet Take 2 tablets by mouth every 6 hours as needed for pain. for pain. aspirin, enteric coated (ASPIRIN, ENTERIC COATED) 81 mg EC tablet Take 1 tablet by mouth two times a day for 14 days. Then, resume home dose of 1 tablet once daily. rosuvastatin (CRESTOR) 20 mg tablet Take 20 mg by mouth every morning. lisinopril (ZESTRIL) 10 mg tablet Take 10 mg by mouth every morning. cyanocobalamin (VITAMIN B-12) 1,000 mcg tab Take 1,000 mcg by mouth once daily. MULTIVITAMIN ORAL Take by mouth once daily. esomeprazole (NEXIUM) 40 mg capsule DULoxetine (CYMBALTA) 30 mg capsule Take 30 mg by mouth. Melatonin 5 mg cap Take 5 mg by mouth. metFORMIN (GLUCOPHAGE) 500 mg tablet Take 500 mg by mouth. tamsulosin (FLOMAX) 0.4 mg Take 0.4 mg by mouth. OBJECTIVE There were no vitals taken for this visit. PHYSICAL EXAMINATION: Alert and oriented x3, ambulates easily to exam table without assistance Painless neck ROM in all planes. Negative Spurling's. No radiating numbness or tingling past elbows. No visibile head, eyes, ear, neck, throat deformities Left shoulder range of motion today is 120/50/posterior left buttock. On the right side is 80/50/SI joint. External rotation 4+ out of 5. Axillary, Long Thoracic, CN XI, Median, Ulnar, Radial, musculocutaneous nerves intact to motor and sensation. Fingers warm and well perfused, BCR< 2sec. Radial Pulse 2+ RADIOGRAPHIC RESULTS: Imaging was personally reviewed by myself today X-rays of the left shoulder show reverse replacement good position. Unchanged from previous. No fracture or dislocation. X-rays right shoulder show severe glenohumeral arthritis with severe joint line medialization and glenoid bone loss. ASSESSMENT Right glenohumeral arthritis, left reverse shoulder placement 3 months out PLAN DIAGNOSIS: (M25.511, G89.29) Chronic right shoulder pain (primary encounter diagnosis) (Z47.1, Z96.612) Aftercare following left shoulder joint replacement surgery (M19.011) Glenohumeral arthritis, right Severe right glenohumeral arthritis. Left reverse shoulder placement 3 months out. Doing well. Would like to get his right side completed. Discussed reverse shoulder placement. and the postoperative course. Discussed preoperative CT scan. Will get him scheduled. Risks, Benefits, Alternatives of reverse total shoulder right surgery discussed with patient and their family. They are aware of the risks including but not limited to infection, bleeding/vessel injury, nerve injury, DVT, PE, hardware failure and complications, need for revision surgery, fracture and wound healing issues. Discussion of anesthetic complications including block related complications, post-op medical complications such as [place]/pneumonia/etc, and were also discussed, and patient advised to discuss further with preoperative clearance physicians and anesthesia team prior to surgery. All questions were answered for patient today, they should not hesitate to call the office with any issues. Medical Decision Making: Medical Decision Making Level: 1 - N/A Hung Jacobsen MD documented in this encounter [facility] 10-15-2024 History of Present illness Narrative Radiology Service Progress Note PATIENT NAME: Tyler Torres DATE OF SERVICE: October 15, 2024 TIME: 2:58 PM PATIENT IDENTITY VERIFICATION COMPLETED USING TWO (2) IDENTIFIERS: Name and Date of confirmed by patient verbally. FALL SCREENING: Has the patient had 2 falls in the last year or 1 fall with injury or currently using an Ambulatory Assistive Device (Walker, Cane, Wheelchair, Crutches, etc.)? No PATIENT GENDER DATA: Assigned male at PATIENT RELEVANT IMPLANT DATA REVIEWED: Not Applicable PATIENT PRESENTS WITH AN IMPLANTABLE OR ATTACHED TALENT SCOUT: No RADIOLOGY DEPARTMENT: General X-ray: Exam(s) Completed: Upper Extremity X-Ray(s): Shoulder, AP / TRUE AP / AXILLARY left PERIPHERAL IV DATA: Not applicable SIGNED BY: RT Brunilda(R) October 15, 2024 2:58 PM documented in this encounter [facility] 10-15-2024 Note HNO ID: [id number] Author: WILTON FARMER RT(R) Service: Radiology Author Type: Technologist Type: Progress Notes Filed: 10/15/2024 14:59 Note Text: Radiology Service Progress Note PATIENT NAME: Tyler Torres DATE OF SERVICE: October 15, 2024 TIME: 2:58 PM PATIENT IDENTITY VERIFICATION COMPLETED USING TWO (2) IDENTIFIERS: Name and Date of confirmed by patient verbally. FALL SCREENING: Has the patient had 2 falls in the last year or 1 fall with injury or currently using an Ambulatory Assistive Device (Walker, Cane, Wheelchair, Crutches, etc.)? No PATIENT GENDER DATA: Assigned male at PATIENT RELEVANT IMPLANT DATA REVIEWED: Not Applicable PATIENT PRESENTS WITH AN IMPLANTABLE OR ATTACHED TALENT SCOUT: No RADIOLOGY DEPARTMENT: General X-ray: Exam(s) Completed: Upper Extremity X-Ray(s): Shoulder, AP / TRUE AP / AXILLARY left PERIPHERAL IV DATA: Not applicable SIGNED BY: RT Brunilda(Mahesh) October 15, 2024 2:58 PM [facility] 10-02-2024 Miscellaneous Notes Refill request, contract signed and appointments up to date. documented in this encounter [facility] 10-02-2024 Telephone encounter Note Refill request, contract signed and appointments up to date. [facility] 09-16-2024 Miscellaneous Notes Per October 2024 recall, patient is due for follow up with Vascular Fellow. Please call and schedule patient. Spoke with patient and scheduled appt documented in this encounter [facility] 09-16-2024 Telephone encounter Note Per October 2024 recall, patient is due for follow up with Vascular Fellow. Please call and schedule patient. [facility] 09-16-2024 Telephone encounter Note [facility] with [facility] and [facility] 09-03-2024 Instructions Hung Jacobsen MD - 09/03/2024 4:14 PM EST Overhead jarek for shoulder stretches. Or use a stick. documented in this encounter [facility] 09-03-2024 Note HNO ID: [id number] Author: HUNG JACOBSEN MD Service: ? Author Type: Physician Type: Progress Notes Filed: 09/03/2024 16:59 Note Text: SHOULDER/ELBOW ESTABLISHED VISIT SERVICE DATE: 09/03/2024 PCP: Armando Richards MD, MD Date of Surgery: 07/25/24 Surgery: Left reverse Total Shoulder Arthroplasty, biceps tenodesis Follow-up time: 6 WEEKS SUBJECTIVE HISTORY OF PRESENT ILLNESS: 79 year old male 6 weeks out from surgery, has been compliant with exercise and sling wear. Doing well. Pain well-controlled. ACTIVE PROBLEM LIST Chronic Right Shoulder Pain Type 2 Diabetes Mellitus Without Complication, Without Long-Term Current Use of Insulin ([facility]) Former Smoker Chronic Obstructive Pulmonary Disease ([facility]) Lumbar Stenosis With Neurogenic Claudication Status Post Lumbar Spinal Fusion Calculus of Kidney Elevated Bp Without Diagnosis of Hypertension Finding of Above Normal Blood Pressure Gastroesophageal Reflux Disease Without Esophagitis Diabetes Mellitus ([facility]) Mixed Hyperlipidemia Obstructive Sleep Apnea Syndrome Peripheral Venous Insufficiency Cva (Cerebral Vascular Accident) ([facility]) Carotid Stenosis ALLERGIES Allergen Reactions Simvastatin Unknown MEDICATIONS: acetaminophen (TYLENOL EXTRA STRENGTH) 500 mg tablet Take 2 tablets by mouth every 6 hours as needed for pain. for pain. aspirin, enteric coated (ASPIRIN, ENTERIC COATED) 81 mg EC tablet Take 1 tablet by mouth two times a day for 14 days. Then, resume home dose of 1 tablet once daily. rosuvastatin (CRESTOR) 20 mg tablet Take 20 mg by mouth every morning. lisinopril (ZESTRIL) 10 mg tablet Take 10 mg by mouth every morning. cyanocobalamin (VITAMIN B-12) 1,000 mcg tab Take 1,000 mcg by mouth once daily. MULTIVITAMIN ORAL Take by mouth once daily. esomeprazole (NEXIUM) 40 mg capsule DULoxetine (CYMBALTA) 30 mg capsule Take 30 mg by mouth. Melatonin 5 mg cap Take 5 mg by mouth. metFORMIN (GLUCOPHAGE) 500 mg tablet Take 500 mg by mouth. tamsulosin (FLOMAX) 0.4 mg Take 0.4 mg by mouth. OBJECTIVE There were no vitals taken for this visit. PHYSICAL EXAMINATION: Alert and oriented x3, ambulates easily to exam table without assistance, only using a cane now Painless neck ROM in all planes. Negative Spurling's. No radiating numbness or tingling past elbows. No visibile head, eyes, ear, neck, throat deformities Left shoulder active forward elevation to 70, passive to 100, external rotation to 20, good external rotation strength. Incision is well-healed. Axillary, Long Thoracic, CN XI, Median, Ulnar, Radial, musculocutaneous nerves intact to motor and sensation. Fingers warm and well perfused, BCR< 2sec. Radial Pulse 2+ RADIOGRAPHIC RESULTS: Imaging was personally reviewed by myself today X-rays of left shoulder show reverse shoulder place in good position. Unchanged in previous. No fracture or dislocation ASSESSMENT Left reverse shoulder replacement 6 weeks out doing well PLAN DIAGNOSIS: (Z47.1, Z96.612) Aftercare following left shoulder joint replacement surgery (primary encounter diagnosis) Will start all phase of stretching today, strengthening in 3 weeks. Will see him back in 6 weeks time for routine check. Will get a repeat right shoulder x-ray. Will discuss possibly right shoulder surgery depending how well his left side does. All questions were answered for patient today, they should not hesitate to call the office with any issues. Medical Decision Making: Medical Decision Making Level: 1 - N/A Hung Jacobsen MD [facility] 09-03-2024 History of Present illness Narrative SHOULDER/ELBOW ESTABLISHED VISIT SERVICE DATE: 09/03/2024 PCP: Armando Richards MD, MD Date of Surgery: 07/25/24 Surgery: Left reverse Total Shoulder Arthroplasty, biceps tenodesis Follow-up time: 6 WEEKS SUBJECTIVE HISTORY OF PRESENT ILLNESS: 79 year old male 6 weeks out from surgery, has been compliant with exercise and sling wear. Doing well. Pain well-controlled. ACTIVE PROBLEM LIST Chronic Right Shoulder Pain Type 2 Diabetes Mellitus Without Complication, Without Long-Term Current Use of Insulin ([facility]) Former Smoker Chronic Obstructive Pulmonary Disease ([facility]) Lumbar Stenosis With Neurogenic Claudication Status Post Lumbar Spinal Fusion Calculus of Kidney Elevated Bp Without Diagnosis of Hypertension Finding of Above Normal Blood Pressure Gastroesophageal Reflux Disease Without Esophagitis Diabetes Mellitus ([facility]) Mixed Hyperlipidemia Obstructive Sleep Apnea Syndrome Peripheral Venous Insufficiency Cva (Cerebral Vascular Accident) ([facility]) Carotid Stenosis ALLERGIES Allergen Reactions Simvastatin Unknown MEDICATIONS: acetaminophen (TYLENOL EXTRA STRENGTH) 500 mg tablet Take 2 tablets by mouth every 6 hours as needed for pain. for pain. aspirin, enteric coated (ASPIRIN, ENTERIC COATED) 81 mg EC tablet Take 1 tablet by mouth two times a day for 14 days. Then, resume home dose of 1 tablet once daily. rosuvastatin (CRESTOR) 20 mg tablet Take 20 mg by mouth every morning. lisinopril (ZESTRIL) 10 mg tablet Take 10 mg by mouth every morning. cyanocobalamin (VITAMIN B-12) 1,000 mcg tab Take 1,000 mcg by mouth once daily. MULTIVITAMIN ORAL Take by mouth once daily. esomeprazole (NEXIUM) 40 mg capsule DULoxetine (CYMBALTA) 30 mg capsule Take 30 mg by mouth. Melatonin 5 mg cap Take 5 mg by mouth. metFORMIN (GLUCOPHAGE) 500 mg tablet Take 500 mg by mouth. tamsulosin (FLOMAX) 0.4 mg Take 0.4 mg by mouth. OBJECTIVE There were no vitals taken for this visit. PHYSICAL EXAMINATION: Alert and oriented x3, ambulates easily to exam table without assistance, only using a cane now Painless neck ROM in all planes. Negative Spurling's. No radiating numbness or tingling past elbows. No visibile head, eyes, ear, neck, throat deformities Left shoulder active forward elevation to 70, passive to 100, external rotation to 20, good external rotation strength. Incision is well-healed. Axillary, Long Thoracic, CN XI, Median, Ulnar, Radial, musculocutaneous nerves intact to motor and sensation. Fingers warm and well perfused, BCR< 2sec. Radial Pulse 2+ RADIOGRAPHIC RESULTS: Imaging was personally reviewed by myself today X-rays of left shoulder show reverse shoulder place in good position. Unchanged in previous. No fracture or dislocation ASSESSMENT Left reverse shoulder replacement 6 weeks out doing well PLAN DIAGNOSIS: (Z47.1, Z96.612) Aftercare following left shoulder joint replacement surgery (primary encounter diagnosis) Will start all phase of stretching today, strengthening in 3 weeks. Will see him back in 6 weeks time for routine check. Will get a repeat right shoulder x-ray. Will discuss possibly right shoulder surgery depending how well his left side does. All questions were answered for patient today, they should not hesitate to call the office with any issues. Medical Decision Making: Medical Decision Making Level: 1 - N/A Hung Jacobsen MD documented in this encounter [facility] 09-03-2024 History of Present illness Narrative Radiology Service Progress Note PATIENT NAME: Tyler Torres DATE OF SERVICE: September 03, 2024 TIME: 2:25 PM PATIENT IDENTITY VERIFICATION COMPLETED USING TWO (2) IDENTIFIERS: Name and Date of confirmed by patient verbally. FALL SCREENING: Has the patient had 2 falls in the last year or 1 fall with injury or currently using an Ambulatory Assistive Device (Walker, Cane, Wheelchair, Crutches, etc.)? Yes, Patient High Risk for Falls What interventions were put in place to prevent falls during this visit? Instructed Patient to Call for Help if Needed, Offered Assistance with Transfers/Clothing, Instructed Patient to Remain Seated (Not on Exam Table) Until Exam, and Increased Observations by Caregivers PATIENT GENDER DATA: Assigned male at PATIENT RELEVANT IMPLANT DATA REVIEWED: Not Applicable PATIENT PRESENTS WITH AN IMPLANTABLE OR ATTACHED TALENT SCOUT: No RADIOLOGY DEPARTMENT: General X-ray: Exam(s) Completed: Upper Extremity X-Ray(s): Shoulder, AP / TRUE AP / AXILLARY left PERIPHERAL IV DATA: Not applicable SIGNED BY: RT Shahzad(R) September 03, 2024 2:25 PM documented in this encounter [facility] 09-03-2024 Note HNO ID: [id number] Author: RYAN DAY RT(R) Service: Radiology Author Type: Technologist Type: Progress Notes Filed: 09/03/2024 14:27 Note Text: Radiology Service Progress Note PATIENT NAME: Tyler Torres DATE OF SERVICE: September 03, 2024 TIME: 2:25 PM PATIENT IDENTITY VERIFICATION COMPLETED USING TWO (2) IDENTIFIERS: Name and Date of confirmed by patient verbally. FALL SCREENING: Has the patient had 2 falls in the last year or 1 fall with injury or currently using an Ambulatory Assistive Device (Walker, Cane, Wheelchair, Crutches, etc.)? Yes, Patient High Risk for Falls What interventions were put in place to prevent falls during this visit? Instructed Patient to Call for Help if Needed, Offered Assistance with Transfers/Clothing, Instructed Patient to Remain Seated (Not on Exam Table) Until Exam, and Increased Observations by Caregivers PATIENT GENDER DATA: Assigned male at PATIENT RELEVANT IMPLANT DATA REVIEWED: Not Applicable PATIENT PRESENTS WITH AN IMPLANTABLE OR ATTACHED TALENT SCOUT: No RADIOLOGY DEPARTMENT: General X-ray: Exam(s) Completed: Upper Extremity X-Ray(s): Shoulder, AP / TRUE AP / AXILLARY left PERIPHERAL IV DATA: Not applicable SIGNED BY: RT Shahzad(Mahesh) September 03, 2024 2:25 PM [facility] 08-27-2024 Note HNO ID: [id number] Author: Mahesh SMALL MD Service: ? Author Type: Physician Type: Progress Notes Filed: 08/27/2024 15:33 Note Text: Arely is now 1 year out from surgery. He does get some back pain with prolonged standing or walking. He recently underwent left reverse total shoulder and is scheduled to undergo right sided in the future. On clinical exam he does standing positive sagittal balance about 5 cm. Normal coronal alignment. Overall he is doing quite well. His x-rays look good. He will continue with his activities as tolerated. I will see him back in 1 years time with new x-rays. Mahesh Small MD [facility] 08-27-2024 History of Present illness Narrative Arely is now 1 year out from surgery. He does get some back pain with prolonged standing or walking. He recently underwent left reverse total shoulder and is scheduled to undergo right sided in the future. On clinical exam he does standing positive sagittal balance about 5 cm. Normal coronal alignment. Overall he is doing quite well. His x-rays look good. He will continue with his activities as tolerated. I will see him back in 1 years time with new x-rays. Mahesh Small MD Images from the original note were not included. SPINE SURGERY CLINIC FOLLOW UP NOTE Encounter Date: 08/27/2024 History of present illness: Tyler Torres is a 79 year old male who returns to clinic today for 1-year follow-up s/p VINCE L3 to sacrum, L2 to ilium posterior segmental instrumentation, L5 laminectomy, and L5-S1 combined posterolateral and transforaminal lumbar interbody fusion on 08/25/[address] Small. Tyler Torres was last seen on 02/20/2024 for 6-month follow-up, at which time he was doing well making progress. Given shoulder pain, he was referred to Dr. Jacobsen, who performed Left reverse TSA on 07/25/2024. Tyler Torres reports he is doing well, and still walking 6 days per week though since his rTSA, he has had to transition to a cane from a walker and has decreased his distance to a quarter mile versus half mile. He has a persistent dull ache in his bilateral posterior thighs. Past Medical History PAST MEDICAL HISTORY Diagnosis Date COPD (chronic obstructive pulmonary disease) (HCC) Diabetes mellitus (HCC) GERD (gastroesophageal reflux disease) HLD (hyperlipidemia) HTN (hypertension) Kidney stone ROMEO (obstructive sleep apnea) Past Surgical History PAST SURGICAL HISTORY Procedure Laterality Date COLONOSCOPY SCREENING PAST SURGICAL HISTORY OF 09/14/2020 lumbar surgery x2 PAST SURGICAL HISTORY OF Right cyst removed from back by right shoulder PAST SURGICAL HISTORY OF testicle removed Social History Social History Tobacco Use Smoking status: Former Current packs/day: 0.00 Average packs/day: 0.5 packs/day for 15.0 years (7.5 ttl pk-yrs) Types: Cigarettes Start date: 1977 Quit date: 1992 Years since quittin.0 Smokeless tobacco: Never Tobacco comments: Quit years ago Substance Use Topics Alcohol use: Yes Alcohol/week: 2.0 standard drinks of alcohol Types: 2 Cans of Beer (12oz) per week Comment: 1 beer 2-3 days a week Drug use: Never Family History Not contributory to consult. Review of Systems Negative except for as otherwise noted in HPI. Physical Exam There were no vitals taken for this visit. A&Ox3, NAD Breathing comfortably at rest RRR to peripheral palpation Focused Musculoskeletal Exam Spine Exam There was a well healed midline surgical scar at the level of the lumbar spine that was well healed, and without surrounding erythema or drainage Sensation to light touch: Lower Extremities Right Left Medial upper thigh (L2) present present Medial knee (L3) diminshed diminshed Medial distal tibia (L4) present present Dorsum of first MTP (L5) present present Lateral heel (S1) present present Motor function: Lower Extremities Right Left Hip flexion (L2) 5/5 5/5 Knee extension (L3) 5/5 5/5 Ankle dorsiflexion (L4) 5/5 5/5 Great toe extension (L5) 5/5 5/5 Ankle plantarflexion (S1) 5/5 5/5 Long tract signs: Lower Extremities Right Left Spasticity Absent Absent Babinski Downgoing Downgoing Clonus Absent Absent INVESTIGATIONS Imaging Studies XR: hardware intact and unchanged from prior 09/2023 x-ray Assessment/Plan ASSESSMENT 79 year old male who returns to clinic today for 1-year follow-up s/p VINCE L3 to sacrum, L2 to ilium posterior segmental instrumentation, L5 laminectomy, and L5-S1 combined posterolateral and transforaminal lumbar interbody fusion on 08/25/[address] Small. Doing well, discussed persistent dull ache in bilateral thighs now 2 years out from initial surgery at [facility] that resulted in L3 nerve injury, which is not likely to further improve at this point. PLAN Follow-up in 1 year for repeat outpatient evaluation Patty Fitzgerald MD Orthopaedic Surgery PGY-2 documented in this encounter [facility] 08-27-2024 Note HNO ID: [id number] Author: PATTY FITZGERALD MD Service: ? Author Type: Resident Type: Progress Notes Filed: 08/27/2024 15:33 Note Text: SPINE SURGERY CLINIC FOLLOW UP NOTE Encounter Date: 08/27/2024 History of present illness: Tyler Torres is a 79 year old male who returns to clinic today for 1-year follow-up s/p VINCE L3 to sacrum, L2 to ilium posterior segmental instrumentation, L5 laminectomy, and L5-S1 combined posterolateral and transforaminal lumbar interbody fusion on 08/25/[address] Small. Tyler Torres was last seen on 02/20/2024 for 6-month follow-up, at which time he was doing well making progress. Given shoulder pain, he was referred to Dr. Jacobsen, who performed Left reverse TSA on 07/25/2024. Tyler Torres reports he is doing well, and still walking 6 days per week though since his rTSA, he has had to transition to a cane from a walker and has decreased his distance to a quarter mile versus half mile. He has a persistent dull ache in his bilateral posterior thighs. Past Medical History PAST MEDICAL HISTORY Diagnosis Date COPD (chronic obstructive pulmonary disease) (HCC) Diabetes mellitus (HCC) GERD (gastroesophageal reflux disease) HLD (hyperlipidemia) HTN (hypertension) Kidney stone ROMEO (obstructive sleep apnea) Past Surgical History PAST SURGICAL HISTORY Procedure Laterality Date COLONOSCOPY SCREENING PAST SURGICAL HISTORY OF 09/14/2020 lumbar surgery x2 PAST SURGICAL HISTORY OF Right cyst removed from back by right shoulder PAST SURGICAL HISTORY OF testicle removed Social History Social History Tobacco Use Smoking status: Former Current packs/day: 0.00 Average packs/day: 0.5 packs/day for 15.0 years (7.5 ttl pk-yrs) Types: Cigarettes Start date: 1977 Quit date: 1992 Years since quittin.0 Smokeless tobacco: Never Tobacco comments: Quit years ago Substance Use Topics Alcohol use: Yes Alcohol/week: 2.0 standard drinks of alcohol Types: 2 Cans of Beer (12oz) per week Comment: 1 beer 2-3 days a week Drug use: Never Family History Not contributory to consult. Review of Systems Negative except for as otherwise noted in HPI. Physical Exam There were no vitals taken for this visit. AANDOx3, NAD Breathing comfortably at rest RRR to peripheral palpation Focused Musculoskeletal Exam Spine Exam There was a well healed midline surgical scar at the level of the lumbar spine that was well healed, and without surrounding erythema or drainage Sensation to light touch: Lower Extremities Right Left Medial upper thigh (L2) present present Medial knee (L3) diminshed diminshed Medial distal tibia (L4) present present Dorsum of first MTP (L5) present present Lateral heel (S1) present present Motor function: Lower Extremities Right Left Hip flexion (L2) 5/5 5/5 Knee extension (L3) 5/5 5/5 Ankle dorsiflexion (L4) 5/5 5/5 Great toe extension (L5) 5/5 5/5 Ankle plantarflexion (S1) 5/5 5/5 Long tract signs: Lower Extremities Right Left Spasticity Absent Absent Babinski Downgoing Downgoing Clonus Absent Absent INVESTIGATIONS Imaging Studies XR: hardware intact and unchanged from prior 09/2023 x-ray Assessment/Plan ASSESSMENT 79 year old male who returns to clinic today for 1-year follow-up s/p VINCE L3 to sacrum, L2 to ilium posterior segmental instrumentation, L5 laminectomy, and L5-S1 combined posterolateral and transforaminal lumbar interbody fusion on 08/25/[address] Small. Doing well, discussed persistent dull ache in bilateral thighs now 2 years out from initial surgery at [facility]SH that resulted in L3 nerve injury, which is not likely to further improve at this point. PLAN Follow-up in 1 year for repeat outpatient evaluation Patty Fitzgerald MD Orthopaedic Surgery PGY-2 [facility] 08-27-2024 History of Present illness Narrative Radiology Service Progress Note PATIENT NAME: Tyler Torres DATE OF SERVICE: August 27, 2024 TIME: 2:19 PM PATIENT IDENTITY VERIFICATION COMPLETED USING TWO (2) IDENTIFIERS: Name and Date of confirmed by patient verbally and Name and Date of confirmed by identification band. FALL SCREENING: Has the patient had 2 falls in the last year or 1 fall with injury or currently using an Ambulatory Assistive Device (Walker, Cane, Wheelchair, Crutches, etc.)? No PATIENT GENDER DATA: Assigned male at PATIENT RELEVANT IMPLANT DATA REVIEWED: Not Applicable PATIENT PRESENTS WITH AN IMPLANTABLE OR ATTACHED TALENT SCOUT: No RADIOLOGY DEPARTMENT: General X-ray: Exam(s) Completed: Spine X-Ray(s): Scoliosis Series PERIPHERAL IV DATA: Not applicable SIGNED BY: RT Phani(R) August 27, 2024 2:19 PM documented in this encounter [facility] 08-27-2024 Note HNO ID: [id number] Author: ERIC SARMIENTO RT(R) Service: ? Author Type: Technologist Type: Progress Notes Filed: 08/27/2024 14:22 Note Text: Radiology Service Progress Note PATIENT NAME: Tyler Torres DATE OF SERVICE: August 27, 2024 TIME: 2:19 PM PATIENT IDENTITY VERIFICATION COMPLETED USING TWO (2) IDENTIFIERS: Name and Date of confirmed by patient verbally and Name and Date of confirmed by identification band. FALL SCREENING: Has the patient had 2 falls in the last year or 1 fall with injury or currently using an Ambulatory Assistive Device (Walker, Cane, Wheelchair, Crutches, etc.)? No PATIENT GENDER DATA: Assigned male at PATIENT RELEVANT IMPLANT DATA REVIEWED: Not Applicable PATIENT PRESENTS WITH AN IMPLANTABLE OR ATTACHED TALENT SCOUT: No RADIOLOGY DEPARTMENT: General X-ray: Exam(s) Completed: Spine X-Ray(s): Scoliosis Series PERIPHERAL IV DATA: Not applicable SIGNED BY: RT Phani(R) August 27, 2024 2:19 PM [facility] 08-08-2024 Instructions Tamera Pineda APRN.[facility] - 08/08/2024 1:29 PM EST Images from the original note were not included. Restart celebrex tomorrow when you drop down to your regular dose of baby aspirin once a day Can let water and soap run over incision and get it wet, blot dry with a clean towel DO NOT SCRUB THE INCISION use local intermittent ice, with skin covered, Never put ice directly and your skin, use for 20 minutes at a time 4 times a day Elevate hand as needed Continue hand, wrist and elbow exercises Start pendulums see below Remain non weight bearing which is no lifting Phase I Shoulder Stretching Exercises These exercises are designed to increase motion. When performing them, the stiff shoulder is assisted by the normal arm, by gravity, or by a jarek. Apply moist heat and take your pain medication one-half hour before exercising. Do not exercise within 2 hours of bedtime. 1. Pendulum Exercise Use your normal arm to hold the side of a table or bed for balance. Bend over at the waist. Make sure your back is parallel to the floor. Let the stiff arm relax and dangle like a pendulum. Gently swing it in a small capitan grande band that is parallel to the floor. Do this for 10 to 15 seconds. Then allow the arm to swing back and forth (as if you were bowling). Do this for 10 to 15 seconds. documented in this encounter [facility] 08-08-2024 Note HNO ID: [id number] Author: TAMERA PINEDA APRN.OFFSHORING MANAGER Service: ? Author Type: Nurse Practitioner Type: Progress Notes Filed: 08/08/2024 16:22 Note Text: SHOULDER/ELBOW ESTABLISHED VISIT SERVICE DATE: 08/08/2024 PCP: Armando Richards MD, Date of Surgery: 07/25/24 Surgery: Left reverse Total Shoulder Arthroplasty 81948, biceps tenodesis [id number] Follow-up time: 2 weeks SUBJECTIVE HISTORY OF PRESENT ILLNESS: 79 year old male reports doing well, his general shoulder soreness controlled with occasional Tylenol and his twice a day oxycodone that he takes for his back and legs. He has been compliant with his sling use and hand, wrist, elbow exercises. Reports no issues with his incisions. Has some mild finger/hand swelling, wants his UltraSling readjusted is the arm is a little lower in the sling then it has been. Reports he is having no GI/ issues Denies any fever, chills, night sweats or malaise ACTIVE PROBLEM LIST Chronic Right Shoulder Pain Type 2 Diabetes Mellitus Without Complication, Without Long-Term Current Use of Insulin (Hcc) Former Smoker Chronic Obstructive Pulmonary Disease (Hcc) Lumbar Stenosis With Neurogenic Claudication Status Post Lumbar Spinal Fusion Calculus of Kidney Elevated Bp Without Diagnosis of Hypertension Finding of Above Normal Blood Pressure Gastroesophageal Reflux Disease Without Esophagitis Diabetes Mellitus (Hcc) Mixed Hyperlipidemia Obstructive Sleep Apnea Syndrome Peripheral Venous Insufficiency Cva (Cerebral Vascular Accident) (Hcc) Carotid Stenosis ALLERGIES Allergen Reactions Simvastatin Unknown MEDICATIONS: acetaminophen (TYLENOL EXTRA STRENGTH) 500 mg tablet Take 2 tablets by mouth every 6 hours as needed for pain. for pain. aspirin, enteric coated (ASPIRIN, ENTERIC COATED) 81 mg EC tablet Take 1 tablet by mouth two times a day for 14 days. Then, resume home dose of 1 tablet once daily. Docusate Sodium 100 mg tab Take 1 tablet by mouth every morning. For constipation prevention. Ensure you take while taking opioid medication. May hold for diarrhea. rosuvastatin (CRESTOR) 20 mg tablet Take 20 mg by mouth every morning. lisinopril (ZESTRIL) 10 mg tablet Take 10 mg by mouth every morning. cyanocobalamin (VITAMIN B-12) 1,000 mcg tab Take 1,000 mcg by mouth once daily. MULTIVITAMIN ORAL Take by mouth once daily. esomeprazole (NEXIUM) 40 mg capsule DULoxetine (CYMBALTA) 30 mg capsule Take 30 mg by mouth. Melatonin 5 mg cap Take 5 mg by mouth. metFORMIN (GLUCOPHAGE) 500 mg tablet Take 500 mg by mouth. tamsulosin (FLOMAX) 0.4 mg Take 0.4 mg by mouth. OBJECTIVE There were no vitals taken for this visit. PHYSICAL EXAMINATION: Alert and oriented x3, ambulates easily to exam table without assistance Painless neck ROM in all planes. Negative Spurling's. No radiating numbness or tingling past elbows. No visibile head, eyes, ear, neck, throat deformities Left shoulder Incision dry and intact without erythema, tenderness, warmth or fresh drainage, has some dried drainage surrounding incision. Mild finger and hand swelling. Mild shoulder swelling Full active range of motion at all fingers, wrist, elbow Axillary, Long Thoracic, CN XI, Median, Ulnar, Radial, musculocutaneous nerves intact to motor and sensation. Fingers warm and well perfused, BCR< 2sec. Radial Pulse 2+ RADIOGRAPHIC RESULTS: Imaging was personally reviewed by myself today No fracture or dislocation noted, implants in good position, with intact articulation of the glenoid sphere and humeral stem ASSESSMENT/ DIAGNOSIS: 2 weeks postop with no evidence of DVT or infection PLAN Tegaderm removed from patient's incision, tolerated well, instructed may get incision wet and let water and soap run over the incision but to refrain from scrubbing it. Continue nonweightbearing Continue hand, wrist, elbow exercises Start pendulum exercises, instructions and handouts given to patient To return in 4 weeks at the 6 weeks lalo from surgery with Dr. Jacobsen with x-rays first All questions were answered for patient today, they should not hesitate to call the office with any issues. I spent a total of 20 minutes on the date of the service which included preparing to see the patient, [id number] patient care, completing clinical documentation, obtaining and/or reviewing separately obtained history, performing a medically appropriate examination, counseling and educating the patient/family/caregiver, ordering medications, tests, or procedures, and communicating with other HCPs (not separately reported). Tamera Pineda APRN, OFFSHORING MANAGER [facility] 08-08-2024 History of Present illness Narrative SHOULDER/ELBOW ESTABLISHED VISIT SERVICE DATE: 08/08/2024 PCP: Armando Richards MD, MD Date of Surgery: 07/25/24 Surgery: Left reverse Total Shoulder Arthroplasty [id number], biceps tenodesis [id number] Follow-up time: 2 weeks SUBJECTIVE HISTORY OF PRESENT ILLNESS: 79 year old male reports doing well, his general shoulder soreness controlled with occasional Tylenol and his twice a day oxycodone that he takes for his back and legs. He has been compliant with his sling use and hand, wrist, elbow exercises. Reports no issues with his incisions. Has some mild finger/hand swelling, wants his UltraSling readjusted is the arm is a little lower in the sling then it has been. Reports he is having no GI/ issues Denies any fever, chills, night sweats or malaise ACTIVE PROBLEM LIST Chronic Right Shoulder Pain Type 2 Diabetes Mellitus Without Complication, Without Long-Term Current Use of Insulin ([facility]) Former Smoker Chronic Obstructive Pulmonary Disease ([facility]) Lumbar Stenosis With Neurogenic Claudication Status Post Lumbar Spinal Fusion Calculus of Kidney Elevated Bp Without Diagnosis of Hypertension Finding of Above Normal Blood Pressure Gastroesophageal Reflux Disease Without Esophagitis Diabetes Mellitus ([facility]) Mixed Hyperlipidemia Obstructive Sleep Apnea Syndrome Peripheral Venous Insufficiency Cva (Cerebral Vascular Accident) ([facility]) Carotid Stenosis ALLERGIES Allergen Reactions Simvastatin Unknown MEDICATIONS: acetaminophen (TYLENOL EXTRA STRENGTH) 500 mg tablet Take 2 tablets by mouth every 6 hours as needed for pain. for pain. aspirin, enteric coated (ASPIRIN, ENTERIC COATED) 81 mg EC tablet Take 1 tablet by mouth two times a day for 14 days. Then, resume home dose of 1 tablet once daily. Docusate Sodium 100 mg tab Take 1 tablet by mouth every morning. For constipation prevention. Ensure you take while taking opioid medication. May hold for diarrhea. rosuvastatin (CRESTOR) 20 mg tablet Take 20 mg by mouth every morning. lisinopril (ZESTRIL) 10 mg tablet Take 10 mg by mouth every morning. cyanocobalamin (VITAMIN B-12) 1,000 mcg tab Take 1,000 mcg by mouth once daily. MULTIVITAMIN ORAL Take by mouth once daily. esomeprazole (NEXIUM) 40 mg capsule DULoxetine (CYMBALTA) 30 mg capsule Take 30 mg by mouth. Melatonin 5 mg cap Take 5 mg by mouth. metFORMIN (GLUCOPHAGE) 500 mg tablet Take 500 mg by mouth. tamsulosin (FLOMAX) 0.4 mg Take 0.4 mg by mouth. OBJECTIVE There were no vitals taken for this visit. PHYSICAL EXAMINATION: Alert and oriented x3, ambulates easily to exam table without assistance Painless neck ROM in all planes. Negative Spurling's. No radiating numbness or tingling past elbows. No visibile head, eyes, ear, neck, throat deformities Left shoulder Incision dry and intact without erythema, tenderness, warmth or fresh drainage, has some dried drainage surrounding incision. Mild finger and hand swelling. Mild shoulder swelling Full active range of motion at all fingers, wrist, elbow Axillary, Long Thoracic, CN XI, Median, Ulnar, Radial, musculocutaneous nerves intact to motor and sensation. Fingers warm and well perfused, BCR< 2sec. Radial Pulse 2+ RADIOGRAPHIC RESULTS: Imaging was personally reviewed by myself today No fracture or dislocation noted, implants in good position, with intact articulation of the glenoid sphere and humeral stem ASSESSMENT/ DIAGNOSIS: 2 weeks postop with no evidence of DVT or infection PLAN Tegaderm removed from patient's incision, tolerated well, instructed may get incision wet and let water and soap run over the incision but to refrain from scrubbing it. Continue nonweightbearing Continue hand, wrist, elbow exercises Start pendulum exercises, instructions and handouts given to patient To return in 4 weeks at the 6 weeks lalo from surgery with Dr. Jacobsen with x-rays first All questions were answered for patient today, they should not hesitate to call the office with any issues. I spent a total of 20 minutes on the date of the service which included preparing to see the patient, [id number] patient care, completing clinical documentation, obtaining and/or reviewing separately obtained history, performing a medically appropriate examination, counseling and educating the patient/family/caregiver, ordering medications, tests, or procedures, and communicating with other HCPs (not separately reported). Tamera Pineda APRN, OFFSHORING MANAGER documented in this encounter [facility] 08-05-2024 Miscellaneous Notes Refill request contract signed and appointments up to date. documented in this encounter [facility] 08-05-2024 Telephone encounter Note Refill request contract signed and appointments up to date. [facility] 07-31-2024 Telephone encounter Note DOS - 07/25/2024. Type of Surgery L TSA . Surgeon - Dr. Jacobsen Catheter site - Left interscalene Solution Ropi 0.2%. Rates 11/16/59. Phone number [phone] 07/31 Called and spoke with patient. Pump discontinued and catheter removed yesterday without difficulty. Site is unremarkable. [facility] 07-31-2024 Miscellaneous Notes DOS - 07/25/2024. Type of Surgery L TSA . Surgeon Stuart Jacobsen Catheter site - Left interscalene Solution Ropi 0.2%. Rates 11/16/59. Phone number [phone] 07/31 Called and spoke with patient. Pump discontinued and catheter removed yesterday without difficulty. Site is unremarkable. DOS - 07/25/2024. Type of Surgery L TSA . Surgeon Stuart Jacobsen Catheter site - Left interscalene Solution Ropi 0.2%. Rates 11/16/59. Phone number [phone] 07/30 Called and talked to pt, states pump is shut off and will remove this afternoon. Will call patient again tomorrow. DOS - 07/25/2024. Type of Surgery L TSA . Surgeon - Dr. Jacobsen Catheter site - Left interscalene Solution Ropi 0.2%. Rates 11/16/59. Phone number [phone] 07/29 Called and talked to pt, states pain level is: 3 The pump reads: 641.1 Pt states catheter dressing is intact, denies: redness, fever, draining, edema, pain Does pt c/o SOB, hoarse voice, difficulty swallowing No Denies c/o metallic taste in mouth, ringing in ears, dizziness etc. Pt is able to move: fingers Comments: Catheter is to come out tomorrow. Will call tomorrow to follow up. DOS - 07/25/2024. Type of Surgery L TSA . Surgeon - Dr. Jacobsen Catheter site - Left interscalene Solution Ropi 0.2%. Rates 11/16/59. Phone number [phone] July 27, 2024 1:42 PM Called and talked to pt, states pain level is: 5/10 The pump reads: 872.1 Pt states catheter dressing is intact, denies: redness, fever, draining, edema, pain Does pt c/o SOB, hoarse voice, difficulty swallowing No Denies c/o metallic taste in mouth, ringing in ears, dizziness etc. Pt is able to move: fingers Will call pt again Monday Comments: Continue Sandor Cope APRN.OFFSHORING MANAGER documented in this encounter [facility] 07-30-2024 Telephone encounter Note DOS - 07/25/2024. Type of Surgery L TSA . Surgeon - Dr. Jacobsen Catheter site - Left interscalene Solution Ropi 0.2%. Rates 11/16/59. Phone number [phone] 07/30 Called and talked to pt, states pump is shut off and will remove this afternoon. Will call patient again tomorrow. [facility] 07-29-2024 Telephone encounter Note DOS - 07/25/2024. Type of Surgery L TSA . Surgeon - Dr. Jacobsen Catheter site - Left interscalene Solution Ropi 0.2%. Rates 11/16/59. Phone number [phone] 07/29 Called and talked to pt, states pain level is: 3 The pump reads: 641.1 Pt states catheter dressing is intact, denies: redness, fever, draining, edema, pain Does pt c/o SOB, hoarse voice, difficulty swallowing No Denies c/o metallic taste in mouth, ringing in ears, dizziness etc. Pt is able to move: fingers Comments: Catheter is to come out tomorrow. Will call tomorrow to follow up. [facility] 07-26-2024 Telephone encounter Note DOS - 07/25/2024. Type of Surgery L TSA . Surgeon - Dr. Jacobsen Catheter site - Left interscalene Solution Ropi 0.2%. Rates 11/16/59. Phone number [phone] July 27, 2024 1:42 PM Called and talked to pt, states pain level is: 5/10 The pump reads: 872.1 Pt states catheter dressing is intact, denies: redness, fever, draining, edema, pain Does pt c/o SOB, hoarse voice, difficulty swallowing No Denies c/o metallic taste in mouth, ringing in ears, dizziness etc. Pt is able to move: fingers Will call pt again Monday Comments: Continue Sandor Cope APRN.OFFSHORING MANAGER [facility] Work Phone: 07-26-2024 Note HNO ID: [id number] Author: ALINE BYRD PA-C Service: Orthopaedic Surgery Author Type: Physician C Application Developer Type: Plan of Care Filed: 07/26/2024 11:43 Note Text: Orthopaedic Surgery Plan of Care Plan of care discussed with: Provider, RN, Patient. All questions and concerns regarding the plan of care were addressed to the satisfaction of all participants. PATIENT NAME: Tyler Torres Attending: Hung Penn MD Date of Admission: 07/25/2024 7:20 AM Date of Surgery: 07/25/2024 Procedure: Procedure(s) (LRB): ARTHROPLASTY REPLACE JOINT TOTAL SHOULDER (Left) Overnight events: None S: Reports shoulder pain well controlled. He states he has more pain in his back and right hip which is his baseline. He has some numbness in the left hand, but has intact motor function. He would like to discharge today. Has 1.5 hour ride home and has to call to get a ride. Denies other medical complaints. Denies lightheadedness/dizziness, CP/SOB, or N/V. VITALS: 07/26/24 0357 07/26/24 0742 07/26/24 0945 07/26/24 1018 BP: 88/52 102/59 Pulse: 76 75 Resp: 16 16 16 Temp: 36.8 ?C (98.2 ?F) 36.7 ?C (98.1 ?F) TempSrc: Oral Oral SpO2: 95% 98% 98% Weight: Height: Intake/Output Summary (Last 24 hours) at 07/26/2024 1124 Last data filed at 07/26/2024 1018 Gross per 24 hour Intake 2165 ml Output 1770 ml Net 395 ml Physical Exam: Vital signs and lab work reviewed Gen: awake, alert, converses appropriately, in no acute distress Resp: Breathing unlabored on room air, no obvious wheezing LUE Dressing clean, dry, intact Sling in place Anterior interosseous, posterior interosseous, ulnar nerves intact to motor testing Radial pulse intact and 2+ Fingers are pink, warm, and well perfused Labs: CBC: Recent Labs 07/26/24 0503 07/22/24 1005 WBC 6.43 6.99 HB 10.1* 13.2 HCT 31.2* 41.1 PLT 191 251 MCV 92.0 93.4 RDWCV 13.8 13.9 NEUTP -- 62.6 ABSNEUT -- 4.38 LYMPHP -- 20.5 MONOP -- 13.9 EODINP -- 2.3 BMP: Recent Labs 07/26/24 0503 07/22/24 1005 GLUC 128* 99 NA 137 137 K 4.0 4.4 CHLOR 105 103 CO2 24 24 ANION 8 10 BUN 16 9 CREAT 0.83 0.96 Lines, Drains, and Airways Line Duration Peripheral 07/25/24 0805 Short Right Forearm 18 Gauge 1 day Subcutaneous 07/25/24 1020 Peripheral Nerve Block Left Neck 1 day Assessment/Plan Assessment: 79 year old year old male s/p L rTSA on 07/25/[address] Jacobsen Relevant PMH: DM2, ROMEO Recommendations: Weightbearing: NWB Operative extremity Activity: ultrasling, no shoulder ROM, ok for hand/wrist/elbow ROM Dressing: maintain dressing until follow up Drain: none Antibiotics: Ancef periop 24 hrs - complete Haor: none Diet: regular DVT prophylaxis: ASA 81 mg BID x 2 weeks, SCDs inpatient Acute Blood Loss Anemia: Hgb 10.1 >7.0, stable with no indication for transfusion at this time Electrolytes/Renal: BMP within acceptable limits Consults: PT/OT: Skilled for - pending. I have asked therapy to prioritize patient this morning CM: pending therapy evaluation Disposition: Pending therapy recs. Aline Byrd PA-C Orthopaedic Surgery Pager: [phone] If urgent, please page [phone]) after business hours from 5PM-7AM and on weekends. Date: July 26, 2024 Time: 11:24 AM [facility] 07-26-2024 Note HNO ID: [id number] Author: SANDOR COPE APRN.OFFSHORING MANAGER Service: Pain Management Author Type: Nurse Practitioner Type: Progress Notes Filed: 07/26/2024 11:19 Note Text: APS POST-OPERATIVE PROGRESS NOTE Peripheral Nerve Catheter SERVICE DATE: 07/26/2024 : 1945 SERVICE TIME: 0836 AM SURGERY DATE: 07/25/2024 PRIMARY SERVICE: Orthopedics Subjective CHIEF COMPLAINT: Post-operative pain INTERVAL HPI: Tyler Torres is a 79 year old male who is POD #1, S/P Procedure(s) (LRB): ARTHROPLASTY REPLACE JOINT TOTAL SHOULDER (Left) with Peripheral Nerve Catheter placed on day of surgery for post-operative pain control infusing Ropi 0.2% at 11/16/59. No SOB, tinnitus, or signs of Lissa's. Still requiring 2 liters of oxygen. Surgical pain is well controlled, does endorse some leg and back pain that was present on admission. Current Pain Level: 3/10 at rest NA with ambulation on a scale of 0-10 Physical Therapy Sessions: Pending Pain at Surgical Site: Yes Character: aching Duration: consistent Radiation: No Relieved: Yes - Rest and Repositioning Patient Satisfied with Pain Control: Yes Overnight Events: None Overnight Pain Interventions: no POST-OPERATIVE BLOCK: Block Type: Interscalene Nerve Catheter, Left Current Continuous Solution Ordered for Catheter: Ropivacaine 0.2% 11/16/59 (Total Demand Doses: 0 in 4 hours) Analgesic Regimen: Oral Opioids: Oxycodone 5-10 mg PO Q4 hours PRN Tylenol 1000 mg PO Q 6 hours ROS ENT: Negative for hoarseness, negative for dysphagia, negative for tinnitus. CARDIOVASCULAR: Negative for chest pain, negative for leg swelling, negative for palpitations. RESPIRATORY: Negative for cough, negative for wheezing, negative for shortness of breath. GI: Negative for nausea, negative for vomiting, negative for constipation. ALLERGIES Allergen Reactions Simvastatin Unknown Current Facility-Administered Medications Medication Dose Route Frequency ropivacaine nerve block 0.2% (2 mg/mL) - 200 mL PERIPHERAL NERVE CATHETER CONTINUOUS And ropivacaine 0.2% (2 mg/mL) nerve block CLINICIAN DOSE 4 mL 4 mL PERIPHERAL NERVE CATHETER q 2 H PRN lisinopril 10 mg tab(s) (ZESTRIL) 10 mg ORAL DAILY rosuvastatin 20 mg tab(s) (CRESTOR) 20 mg ORAL DAILY pantoprazole DR 40 mg tab(s) (PROTONIX) 40 mg ORAL DAILY (6 AM) DULoxetine 30 mg cap(s) (CYMBALTA) 30 mg ORAL DAILY tamsulosin 0.4 mg cap(s) (FLOMAX) 0.4 mg ORAL DAILY acetaminophen 1,000 mg tab(s) (TYLENOL) 1,000 mg ORAL q 6 H oxyCODONE IR 5-10 mg tab(s) (ROXICODONE) 5-10 mg ORAL q 4 H PRN ondansetron (PF) 4-8 mg injection (ZOFRAN) 4-8 mg INTRAVENOUS q 6 H PRN aluminum-magnesium hydroxide-simethicone 200-200-20 mg/5 mL 30 mL 30 mL ORAL q 2 H PRN magnesium hydroxide 400 mg/5 mL 30 mL (MOM) 30 mL ORAL DAILY PRN docusate sodium 100 mg cap(s) (COLACE) 100 mg ORAL BID diphenhydrAMINE 25 mg injection (BENADRYL) 25 mg INTRAVENOUS q 6 H PRN bisacodyl 10 mg suppository (DULCOLAX) 10 mg RECTAL DAILY PRN multivitamin-ferrous fumarate-folic acid 1 tablet (CENTRUM) 1 tablet ORAL DAILY ferrous sulfate 325 mg tab(s) 325 mg ORAL BID w MEALS ascorbic acid (vitamin C) 500 mg tab(s) (VITAMIN C) 500 mg ORAL BID w MEALS aspirin, enteric coated 81 mg tab(s) 81 mg ORAL BID ROPivacaine (PF) 0.2 % in NaCl 0.9% 1,000 mL PERIPHERAL NERVE CATHETER ONE TIME Objective PHYSICAL EXAM: Patient Vitals for the past 4 hrs: BP Temp Temp src Pulse Resp SpO2 07/26/24 1018 -- -- -- -- -- 98 % 07/26/24 0945 -- -- -- -- 16 -- 07/26/24 0742 102/59 36.7 ?C (98.1 ?F) Oral 75 16 98 % AFFECT: Alert and Awake GENERAL APPEARANCE: Appears comfortable and Appears in good spirits IV/CATHETER SITE: Catheter site with no signs of local infection, no erythema, and no discharge noted no swelling NEURO: Diminished sensation with distribution MOTOR: Left Upper Extremity: Diminished at distribution of block RESPIRATORY: Breathing appears normal DATA: Diagnostic tests reviewed for today's visit: Most recent labs LAB RESULTS: Hemoglobin 10.1 07/26/2024 Hematocrit 31.2 07/26/2024 Platelet Count 191 07/26/2024 Medication and Non-Pharmacologic VTE Prophylaxis/Anticoagulants Anticoagulant AND Antiplatelet Medications (From admission, onward) Start Dose Route Frequency Last Action Ordered Stop 07/26/24 0900 aspirin, enteric coated 81 mg tab(s) (Surgical Risk Categories) 81 mg ORAL 2 TIMES DAILY Given, 07/26 0839 07/25/24 1706 -- 07/25/24 171 pneumatic compression stockings (az,ca) 07/25/24 1715 activity - mobilize patient ([place]) Assessment/Plan Tyler Torres is a 79 year old male who is being seen as described in the HPI above. Catheter site without signs or symptoms of infection, no erythema, tenderness, drainage, or warmth. Sensory and motor exam within normal limits for distribution of regional block. No SOB, tinnitus, or signs of Lissa's. Impression Pain well controlled on current analgesic regimen. Plan: (more content not included)... [facility] 07-26-2024 Note HNO ID: [id number] Author: DANIEL ZUNIGA MD Service: Orthopaedic Surgery Author Type: Resident Type: Progress Notes Filed: 07/26/2024 07:02 Note Text: Orthopaedic Surgery Inpatient Progress Note Patient Name: Tyler Torres Attending: Hung Penn MD Date of Admission: 07/25/2024 7:20 AM Assessment: Tyler Torres is a 79 year old year old male who is s/p L rTSA on 07/[address] Jacobsen. Relevant PMH: T2DM well controlled, ROMEO Additional issues being addressed on this admission: None Plan: Activity Weightbearing status: NWB on operative extremity in UltraSling brace Range of motion: No shoulder ROM, okay for hand/wrist/elbow ROM DVT Prophylaxis ASA 81mg BID x2 weeks, SCDs, mobilization ID Antibiotics: periop Ancef x24h Cultures: None Perioperative Care Dressing: maintain dressing until follow up Pain control: Scheduled tylenol, PRN oxycodone, PRN Dilaudid Nerve catheter per APMS Drain: None Diet: Regular Bowel reg Haro: None Acute blood loss anemia: Hemoglobin 10.1, goal > 7, no indication for transfusion at this time Electrolytes/renal: replete PRN [employer] OT Case Management APMS Items to follow up on today: [employer] training, OT, discharge Dispo: pending OT eval, anticipate discharge home today Plan of care discussed with: Provider, RN, Patient. Subjective: No events overnight. Pain is controlled. Denies chest pain, SOB. States he lives with his significant other who should be able to help him. Objective: Vitals: 07/25/24 1530 07/25/24 1539 07/25/24 1545 07/25/24 1600 BP: 104/60 104/63 96/60 Pulse: 90 87 80 Resp: 17 17 20 15 Temp: TempSrc: SpO2: 95% 95% 95% 95% Physical Exam: General: Awake, alert, converses appropriately, no acute distress Respiratory: Unlabored on room air, no obvious wheezing Cardiovascular: RRR to peripheral palpation Focused Musculoskeletal Exam: L Upper Extremity Inspection: Ultrasling brace in place. Dressing is clean/dry/intact. Appropriate mild swelling around shoulder. PNC in place Compartments: Arm and forearm compartments soft and compressible Sensory: SILT over shoulder, arm, forearm, hand and digits 1-5 Motor: Motor intact AIN/PIN/ulnar in hand Vascular: radial 2+ to palp; CR < 2 sec; fingers warm AND well-perfused Intake/Output Summary (Last 24 hours) at 07/25/2024 1613 Last data filed at 07/25/2024 1600 Gross per 24 hour Intake 1350 ml Output 400 ml Net 950 ml Lab Review: Hemoglobin (g/dL) Date Value 07/22/2024 13.2 08/26/2023 10.5 (L) WBC (k/uL) Date Value 07/22/2024 6.99 08/26/2023 11.87 (H) Glucose, Point of Care (mg/dL) Date Value 07/25/2024 106 (A) 07/25/2024 91 Creatinine (mg/dL) Date Value 07/22/2024 0.96 08/26/2023 0.76 Sodium (mmol/L) Date Value 07/22/2024 137 08/26/2023 137 Potassium (mmol/L) Date Value 07/22/2024 4.4 08/26/2023 3.2 (L) Calcium, Total (mg/dL) Date Value 07/22/2024 10.3 (H) 08/26/2023 9.2 Lines, Drains, and Airways Line Duration Peripheral 07/25/24 0805 Short Right Forearm 18 Gauge <1 day Subcutaneous 07/25/24 1020 Peripheral Nerve Block Left Neck <1 day Daniel Zuniga MD PGY-3 Orthopaedic Surgery Cell/pager: [phone] For [facility] floor issues or questions between 6:00a and 5:00p weekdays, [place] [phone]. At all other times, or if urgent, please page the orthopaedic on-call resident at: [facility]: [phone] ([phone]) [place]: [phone] [place]: [phone] [place]: [phone] [facility] 07-25-2024 Note HNO ID: [id number] Author: JASEN BAKER RN Service: ? Author Type: Registered Nurse Type: Nursing Progress Note Filed: 07/25/2024 17:22 Note Text: Other: 1715-pt admitted from pacu. no numbness/tingling lue. pt denies pain. no distress. [facility] 07-25-2024 Note HNO ID: [id number] Author: SHANNON ABREU APRN.MECHANISM INSPECTOR Service: ? Author Type: Nurse Jackscrew Man Type: Anesthesia Procedure Notes Filed: 07/25/2024 11:55 Note Text: ANESTHESIOLOGY PROCEDURE NOTE Airway General Information Procedure Start Time/Medication Administration: 07/25/2024 11:30 AM Procedure End Time: 07/25/2024 11:31 AM Patient location during procedure: OR Patient identity confirmed: arm band Staffing MECHANISM INSPECTOR: Shannon Abreu APRN.MECHANISM INSPECTOR Performed by: MECHANISM INSPECTOR Indications and Patient Condition Indications for airway management: anesthesia Preoxygenated: yes anesthesia circuit Patient position: sniffing Method: asleep Cricoid Pressure: No Difficult Mask: No Airway Accessory: oral airway Final Airway Details Final airway type: endotracheal airway Final Endotracheal Airway: ETT Cuffed: yes Successful intubation technique: video laryngoscopy Devices used: [employer] Endotracheal tube insertion site: oral Blade size: #4 ETT size (mm): 7.5 Measured from: lips Measurement (cm): 22 Placement verified by: capnometry Cormack-Lehane Classification: grade I - full view of glottis Number of attempts at approach: 1 Failed airway: no Unrecognized esophageal intubation: no Airway not difficult SIGNATURE: Shannon Abreu APRN.CRNA PATIENT NAME: Tyler Torres DATE: July 25, 2024 TIME: 11:55 AM CSN: [id number] [facility] 07-25-2024 Note HNO ID: [id number] Author: DEJUAN DOTY MD Service: ? Author Type: Fellow Type: Anesthesia Procedure Notes Filed: 07/25/2024 10:55 Note Text: ---- Attestation signed by Dejuan Doty MD at 07/25/2024 10:55 AM APS STAFF NOTE; I HAVE SUPERVISED RESIDENT DOING BLOCK US WAS USED TIMEOUT DONE AGREE WITH RESIDENT NOTE Dejuan Urbano MD APS STAFF ---- ANESTHESIOLOGY PROCEDURE NOTE Peripheral Nerve Block General Information Procedure Start Time/Medication Administration: 07/25/2024 10:20 AM Procedure End time: 07/25/2024 10:30 AM Patient location during procedure: induction room Timeout Performed Pre-procedure: timeout performed Consent Obtained: Yes Patient identity confirmed: arm band, patient and care prepared foods production team member Reason for block: post-op pain management/at surgeon's request Staffing Anesthesiologist: Dejuan Doty MD Fellow: Cathryn Silver MD Performed by: fellow and anesthesiologist Preparation Sterility Preparation: hand hygiene performed prior to procedure, sterile gloves, drapes, and procedure tray, surgical cap used, mask used, sterile drape used during line insertion, skin prep agent completely dried prior to procedure Sterility Technique Not Completely Performed Due to Extreme Emergency: No Site Prep: Chloraprep Pre-Procedure Neuro Exam Location: LUE Sensory: intact Motor: intact Procedure Details Patient Position: sitting Monitoring: Pulse OX, EKG and NIBP Block Type Upper Extremity: brachial plexus Approach: interscalene Laterality: left Injection Technique: catheter Ultrasound Guided: Yes Image in Chart: yes Moderate Sedation: Yes Local Infiltration: Yes Needle Needle Type: Tuohy Needle Gauge: 17 G Needle Localization: anatomical landmarks and ultrasound Catheter Type: catheter through needle Catheter Size: 19 GNo Assessment Injection assessment: negative aspiration, no paresthesia on injection, incremental injection and local visualized surrounding nerve on ultrasound Paresthesia: none Post-Procedure Neuro Exam Expected Regional Anesthesia: Yes Medications Administered bupivacaine (PF) 0.25 % (2.5 mg/mL) injection (SENSORCAINE MPF) - peripheral nerve block 10 mL - 07/25/2024 10:20:00 AM Comments Patient is confirmed by two identifiers, the risks, benefits and alternatives of the regional anesthesia procedure were explained and confirmed with the patient who agrees to proceed. Standard ASA monitors were applied according to the procedure protocol and vital signs were stable throughout the procedure. The procedure was well tolerated and there was minimal to no blood loss. No complications unless noted above. SIGNATURE: Cathryn Silver MD PATIENT NAME: Tyler Torres DATE: July 25, 2024 TIME: 10:32 AM CSN: [id number] [facility] 07-23-2024 History of Present illness Narrative Patient here for BP check due to having fatigue, he is scheduled for surgery on 07/25/2024. Dr Richrads was told of his BP and patient was told to hold his Lisinopril for 1 day and continue taking his BP. documented in this encounter [facility] 07-22-2024 History and physical note Images from the original note were not included. [facility] HISTORY AND PHYSICAL EXAMINATION SERVICE DATE: 07/22/2024 SERVICE TIME: 1:21 PM PRIMARY CARE PHYSICIAN: Armando Richards MD, MD REASON FOR VISIT: Tyler Torres is a 79 year old male who is scheduled for Left - ARTHROPLASTY REPLACE JOINT TOTAL SHOULDER at the request of Dr. Hung Jacobsen for consultation. My final recommendation will be communicated back to the requesting physician by way of shared medical record or letter. Assessment Obstructive sleep apnea syndrome Assessment: non-compliant with CPAP Mixed hyperlipidemia Assessment: managed with med, stable Follows up with PCP Elevated BP without diagnosis of hypertension Assessment: managed with med, stable Follows up with PCP Chronic obstructive pulmonary disease (HCC) Assessment: Denies SOB Does not require inhaler or oxygen Follows up with PCP 96% RA Former smoker Assessment: quit 1992 Former 0.5 ppd for 20 years Gastroesophageal reflux disease without esophagitis Assessment: managed with med, stable Follows up with PCP Calculus of kidney Assessment: stable and asymptomatic Type 2 diabetes mellitus without complication, without long-term current use of insulin ([facility]) Assessment: managed with oral med, stable Follows up with PCP BG at home 100's HgbA1c 6.1% 03/24/24 CVA (cerebral vascular accident) ([facility]) Assessment: hx 03/2024 Follows up with neurology, last office visit 04/25/24 Daily aspirin No residual deficits Carotid stenosis Assessment: less than 50% bilaterally Follows with vascular, last office visit 05/28/24 Meza Activity Status Index: METS: Walk indoors, such as around the house (1.75 METs) Do light work around the house, such as dusting or washing dishes (2.70 METs) Take care of self; that is eating, dressing, bathing, using the toilet (2.75 METs) Walk a block or two on level ground (2.75 METs) Do moderate work around the house, such as vacuuming, sweeping floors, or carrying in groceries (3.50 METs) DASI Score: 13.45 Patient denies any chest pain or undue shortness of breath with the above physical activity. Patient is limited most or all of the time (uses scooter, mobility device). Clinical Frailty Scale: 3. Well, with treated comorbid disease STOP-Bang Score: STOP-Bang Score: 0 (Non-compliant with CPAP ) [id number] Score: Age: >=75 Sex: male [id number] Score: ARISCAT Score: Age: 51-80 Preoperative SpO2: >=96% Preoperative anemia: Yes Duration of surgery: >3 hrs Emergency procedure: No ARISCAT Score: ANESTHESIA FINDINGS: Intubation History: No history of difficult intubation. No abnormal airway history Significant Anesthesia Considerations: none Airway History: No history of difficult airway No abnormal airway history I - PHYSICAL EVALUATION AIRWAY Patient intubated: No. Tracheostomy tube not present Mallampati: II. TM distance: >3 FB. Neck ROM: limited extension. Mouth opening: adequate. Short neck: yes. Thick neck: no Lip Bite Test: I DENTAL Dentures, upper: complete. Dentures, lower: complete. II - ANESTHESIA PLAN Anesthetic plan additional comments: *PACC/TCI - anesthesia choice. Beta Audrey Monitoring Plan Post Procedure Analgesic Plan Prepared for surgery: This patient is optimally prepared for surgery pending LABS. CONSULTS: Patient does not require consults for optimization at this time. The Following Tests/Procedures Have Been Initiated: Orders Placed This Encounter Iron and TIBC Standing Status: Future Standing Expiration Date: 10/21/2024 Ferritin Standing Status: Future Standing Expiration Date: 10/21/2024 rosuvastatin (CRESTOR) 20 mg tablet Sig: Take 20 mg by mouth every morning. celecoxib (CELEBREX) 100 mg capsule Sig: Take 100 mg by mouth once daily. DISCONTD: Melatonin 5 mg cap Sig: Take 5 mg by mouth daily at bedtime. lisinopril (ZESTRIL) 10 mg tablet Sig: Take 10 mg by mouth every morning. Docusate Sodium 100 mg tab Sig: Take 100 mg by mouth every morning. cyanocobalamin (VITAMIN B-12) 1,000 mcg tab Sig: Take 1,000 mcg by mouth once daily. aspirin, enteric coated (ASPIRIN, ENTERIC COATED) 81 mg EC tablet Sig: Take 81 mg by mouth once daily. MULTIVITAMIN ORAL Sig: Take by mouth once daily. oxyCODONE IR (ROXICODONE) 10 mg tab Sig: Take 5 mg by mouth. mupirocin (BACTROBAN) 2 % ointment Sig: two times a day for 5 days. Apply 0.5 inch with cotton swab (Q-tip) to each nostril in the morning and evening for 5 days prior to and including day of surgery. Dispense: 22 g Refill: 0 ECG COMPLETE Order Comments: Ordered by an unspecified provider Planned Anesthetic: Per anesthesia choice The patient has the following: ACTIVE PROBLEM LIST Chronic Right Shoulder Pain Type 2 Diabetes Mellitus Without Complication, Without Long-Term Current Use of Insulin (Hcc) Former Smoker Chronic Obstructive Pulmonary Disease (Hcc) Lumbar Stenosis With Neurogenic Claudication Status Post Lumbar Spinal Fusion Calculus of Kidney Elevated Bp Without Diagnosis of Hypertension Finding of Above Normal Blood Pressure Gastroesophageal Reflux Disease Without Esophagitis Diabetes Mellitus (Hcc) Mixed Hyperlipidemia Obstructive Sleep Apnea Syndrome Peripheral Venous Insufficiency Cva (Cerebral Vascular Accident) (Hcc) Carotid Stenosis Subjective CHIEF COMPLAINT: Pre-op exam HPI: This is a 79 year old male that is scheduled for the above procedure. Patient has chronic left shoulder pain. He states current pain is 8/10 and described as aching with intermittent sharp pain. He states pain is relieved with rest and medication; pain is worse with certain movements. PAST MEDICAL HISTORY Diagnosis Date COPD (chronic obstructive pulmonary disease) (HCC) Diabetes mellitus (HCC) GERD (gastroesophageal reflux disease) HLD (hyperlipidemia) HTN (hypertension) Kidney stone ROMEO (obstructive sleep apnea) PAST SURGICAL HISTORY Procedure Laterality Date COLONOSCOPY SCREENING PAST SURGICAL HISTORY OF 09/14/2020 lumbar surgery x2 PAST SURGICAL HISTORY OF Right cyst removed from back by right shoulder PAST SURGICAL HISTORY OF testicle removed History reviewed. No pertinent family history. SOCIAL HISTORY: Social History Tobacco Use Smoking status: Former Current packs/day: 0.00 Average packs/day: 0.5 packs/day for 15.0 years (7.5 ttl pk-yrs) Types: Cigarettes Start date: 1977 Quit date: 1992 Years since quittin.9 Smokeless tobacco: Never Tobacco comments: Quit years ago Substance Use Topics Alcohol use: Yes Alcohol/week: 2.0 standard drinks of alcohol Types: 2 Cans of Beer (12oz) per week Comment: 1 beer 2-3 days a week Drug use: Never MEDICATIONS: Prior to Admission medications as of 07/22/24 1339 Medication Sig Last Dose Taking rosuvastatin (CRESTOR) 20 mg tablet Take 20 mg by mouth every morning. Taking Yes celecoxib (CELEBREX) 100 mg capsule Take 100 mg by mouth once daily. Yes lisinopril (ZESTRIL) 10 mg tablet Take 10 mg by mouth every morning. Taking Yes Docusate Sodium 100 mg tab Take 100 mg by mouth every morning. Taking Yes cyanocobalamin (VITAMIN B-12) 1,000 mcg tab Take 1,000 mcg by mouth once daily. Taking Yes aspirin, enteric coated (ASPIRIN, ENTERIC COATED) 81 mg EC tablet Take 81 mg by mouth once daily. Taking Yes MULTIVITAMIN ORAL Take by mouth once daily. Taking Yes oxyCODONE IR (ROXICODONE) 10 mg tab Take 5 mg by mouth. Taking Yes esomeprazole (NEXIUM) 40 mg capsule Taking Yes oxyCODONE IR (ROXICODONE) 5 mg immediate release tablet TAKE 1 TABLET (5 MG TOTAL) BY MOUTH IN THE MORNING AND 1 TABLET (5 MG TOTAL) BEFORE BEDTIME. Taking Yes DULoxetine (CYMBALTA) 30 mg capsule Take 30 mg by mouth. Taking Yes Melatonin 5 mg cap Take 5 mg by mouth. Taking Yes metFORMIN (GLUCOPHAGE) 500 mg tablet Take 500 mg by mouth. Taking Yes tamsulosin (FLOMAX) 0.4 mg Take 0.4 mg by mouth. Taking Yes mupirocin (BACTROBAN) 2 % ointment two times a day for 5 days. Apply 0.5 inch with cotton swab (Q-tip) to each nostril in the morning and evening for 5 days prior to and including day of surgery. No medication comments found. CURRENT ALLERGIES: ALLERGIES Allergen Reactions Simvastatin Unknown Covid Immunization Dates Covid-19 Vaccine (Series Information) Completed 05/08/2024 Imm Admin: COVID-19 vaccine, age 12+ yr ([employer]) 05/15/2023 Imm Admin: COVID-19 vaccine, age 12+ yr, 2022- season (tracx) 06/09/2022 Imm Admin: COVID-19 vaccine, age 12+ yr, bivalent ([employer]) 12/31/2021 Imm Admin: COVID-19 original vaccine, age 12+ yr, monovalent ([employer] - LI TOP) 06/12/2021 Imm Admin: COVID-19 original vaccine, age 12+ yr, monovalent ([email or web address] - PURPLE TOP) Only the first 5 history entries have been loaded, but more history exists. REVIEW OF SYSTEMS: PAIN ASSESSMENT: Pain Pain Level: 8 Pain Location: Shoulder-Left Description: Shooting, Dull, Aching Duration Units: Months Frequency: Continuous Intervention/Comfort measure: Medication General: No weight loss, malaise or fevers. Neuro: Postive for Stroke-No residual deficit, Negative for TIA's Headaches Seizures Respiratory: Positive for Mild COPD, Negative for Current cough, Dyspnea, Home O2 Cardiovascular: Positive for: Anticoagulation therapy, HLD, Hypertension, Negative for Arrhythmia, CAD, Chest Pain, DVT/PE GI: Positive for GERD, Negative for Abdominal pain, Difficulty swallowing, Liver disease : Negative for dysuria, frequency, and incontinence, Positive for kidney stones Endocrine: Diabetes Mellitus on oral agent Hematology: Chronic anti-coagulation / platelet meds (Aspirin) Oncology: No history of CA metastasis, chemo within 30 days, or radiotherapy within 90 days. Has not lost 10% of body wt in 6 months. No history of oncological symptoms or problems. Psych: Anxiety Marijuana use: No Musculoskeletal: See HPI Skin: Negative for lesions, rash and itching. Implanted Devices: No Objective PHYSICAL EXAM: VITALS: BP 92/59 Pulse 81 Temp 97.7 Ht 5' 8 (1.73m) Wt 166 lb 12.8 oz (75.7kg) SpO2 96% BMI 25.37 kg/(m^2). General: Alert and oriented, No acute distress Skin: Normal color, no rash, no lesions. HEENT: EOM, pupils equal, round and reactive. Cardiovascular: Normal S1 & S2, no rubs, murmurs or gallops. No JVD. Pulse regular. Lungs: Normal breath sounds, no wheezes or crackles., No chest deformities or chest wall tenderness. Abdomen: Soft, non-tender, no rigidity., No masses or organomegaly. Extremities: Joint tenderness left shoulder Neurological: Normal cognition and motor skills. Gait normal. No weakness or sensory deficit. Pulses: Carotid and radial pulses normal +2. Diagnostic tests reviewed for today's visit: Lab Value Units Date High Low HB No results within date range. HCT No results within date range. WBC No results within date range. PLT No results within date range. NA No results within date range. K No results within date range. GLUC No results within date range. BUN No results within date range. CREAT No results within date range. PTSEC No results within date range. INR No results within date range. APTT No results within date range. ALT No results within date range. AST No results within date range. TBILI No results within date range. TSH No results within date range. Hemoglobin A1C (%) Date Value 07/31/2023 5.8 EKG in office 07/22/2024 Preliminary result: NORMAL SINUS RHYTHM NORMAL ECG Echo 03/25/24 Left ventricle appears normal in size with moderate focal basal increased wall thickness/hypertrophy. Remaining wall segments are mildly increased. Systolic function is normal with an ejection fraction of 60-65% and no segmental wall motion abnormalities. Aortic sclerosis without stenosis Mitral regurgitation, mild Tricuspid regurgitation, mild Normal atria Instructions Given to Patient: Instructions located in the after visit summary. Patient given verbal and written preop instructions and voices comprehension and compliance. SIGNATURE: Eric Kebede APRN.CNP PATIENT NAME: Tyler Torres DATE: 07/22/2024 TIME: 1:21 PM [facility] 07-22-2024 History and physical note Images from the original note were not included. [facility] HISTORY AND PHYSICAL EXAMINATION SERVICE DATE: 07/22/2024 SERVICE TIME: 1:21 PM PRIMARY CARE PHYSICIAN: Armando Richards MD, MD REASON FOR VISIT: Tyler Torres is a 79 year old male who is scheduled for Left - ARTHROPLASTY REPLACE JOINT TOTAL SHOULDER at the request of Dr. Hung Jacobsen for consultation. My final recommendation will be communicated back to the requesting physician by way of shared medical record or letter. Assessment Obstructive sleep apnea syndrome Assessment: non-compliant with CPAP Mixed hyperlipidemia Assessment: managed with med, stable Follows up with PCP Elevated BP without diagnosis of hypertension Assessment: managed with med, stable Follows up with PCP Chronic obstructive pulmonary disease (HCC) Assessment: Denies SOB Does not require inhaler or oxygen Follows up with PCP 96% RA Former smoker Assessment: quit 1993 Former 0.5 ppd for 20 years Gastroesophageal reflux disease without esophagitis Assessment: managed with med, stable Follows up with PCP Calculus of kidney Assessment: stable and asymptomatic Type 2 diabetes mellitus without complication, without long-term current use of insulin ([facility]) Assessment: managed with oral med, stable Follows up with PCP BG at home 100's HgbA1c 6.1% 03/24/24 CVA (cerebral vascular accident) ([facility]) Assessment: hx 03/2024 Follows up with neurology, last office visit 04/25/24 Daily aspirin No residual deficits Carotid stenosis Assessment: less than 50% bilaterally Follows with vascular, last office visit 05/28/24 Meza Activity Status Index: METS: Walk indoors, such as around the house (1.75 METs) Do light work around the house, such as dusting or washing dishes (2.70 METs) Take care of self; that is eating, dressing, bathing, using the toilet (2.75 METs) Walk a block or two on level ground (2.75 METs) Do moderate work around the house, such as vacuuming, sweeping floors, or carrying in groceries (3.50 METs) DASI Score: 13.45 Patient denies any chest pain or undue shortness of breath with the above physical activity. Patient is limited most or all of the time (uses scooter, mobility device). Clinical Frailty Scale: 3. Well, with treated comorbid disease STOP-Bang Score: STOP-Bang Score: 0 (Non-compliant with CPAP ) [id number] Score: Age: >=75 Sex: male [id number] Score: ARISCAT Score: Age: 51-80 Preoperative SpO2: >=96% Preoperative anemia: Yes Duration of surgery: >3 hrs Emergency procedure: No ARISCAT Score: ANESTHESIA FINDINGS: Intubation History: No history of difficult intubation. No abnormal airway history Significant Anesthesia Considerations: none Airway History: No history of difficult airway No abnormal airway history I - PHYSICAL EVALUATION AIRWAY Patient intubated: No. Tracheostomy tube not present Mallampati: II. TM distance: >3 FB. Neck ROM: limited extension. Mouth opening: adequate. Short neck: yes. Thick neck: no Lip Bite Test: I DENTAL Dentures, upper: complete. Dentures, lower: complete. II - ANESTHESIA PLAN Anesthetic plan additional comments: *PACC/TCI - anesthesia choice. Beta Audrey Monitoring Plan Post Procedure Analgesic Plan Prepared for surgery: This patient is optimally prepared for surgery pending LABS. CONSULTS: Patient does not require consults for optimization at this time. The Following Tests/Procedures Have Been Initiated: Orders Placed This Encounter Iron and TIBC Standing Status: Future Standing Expiration Date: 10/21/2024 Ferritin Standing Status: Future Standing Expiration Date: 10/21/2024 rosuvastatin (CRESTOR) 20 mg tablet Sig: Take 20 mg by mouth every morning. celecoxib (CELEBREX) 100 mg capsule Sig: Take 100 mg by mouth once daily. DISCONTD: Melatonin 5 mg cap Sig: Take 5 mg by mouth daily at bedtime. lisinopril (ZESTRIL) 10 mg tablet Sig: Take 10 mg by mouth every morning. Docusate Sodium 100 mg tab Sig: Take 100 mg by mouth every morning. cyanocobalamin (VITAMIN B-12) 1,000 mcg tab Sig: Take 1,000 mcg by mouth once daily. aspirin, enteric coated (ASPIRIN, ENTERIC COATED) 81 mg EC tablet Sig: Take 81 mg by mouth once daily. MULTIVITAMIN ORAL Sig: Take by mouth once daily. oxyCODONE IR (ROXICODONE) 10 mg tab Sig: Take 5 mg by mouth. mupirocin (BACTROBAN) 2 % ointment Sig: two times a day for 5 days. Apply 0.5 inch with cotton swab (Q-tip) to each nostril in the morning and evening for 5 days prior to and including day of surgery. Dispense: 22 g Refill: 0 ECG COMPLETE Order Comments: Ordered by an unspecified provider Planned Anesthetic: Per anesthesia choice The patient has the following: ACTIVE PROBLEM LIST Chronic Right Shoulder Pain Type 2 Diabetes Mellitus Without Complication, Without Long-Term Current Use of Insulin (Hcc) Former Smoker Chronic Obstructive Pulmonary Disease (Hcc) Lumbar Stenosis With Neurogenic Claudication Status Post Lumbar Spinal Fusion Calculus of Kidney Elevated Bp Without Diagnosis of Hypertension Finding of Above Normal Blood Pressure Gastroesophageal Reflux Disease Without Esophagitis Diabetes Mellitus (Hcc) Mixed Hyperlipidemia Obstructive Sleep Apnea Syndrome Peripheral Venous Insufficiency Cva (Cerebral Vascular Accident) ([facility]) Carotid Stenosis Subjective CHIEF COMPLAINT: Pre-op exam HPI: This is a 79 year old male that is scheduled for the above procedure. Patient has chronic left shoulder pain. He states current pain is 8/10 and described as aching with intermittent sharp pain. He states pain is relieved with rest and medication; pain is worse with certain movements. PAST MEDICAL HISTORY Diagnosis Date COPD (chronic obstructive pulmonary disease) (HCC) Diabetes mellitus (HCC) GERD (gastroesophageal reflux disease) HLD (hyperlipidemia) HTN (hypertension) Kidney stone ROMEO (obstructive sleep apnea) PAST SURGICAL HISTORY Procedure Laterality Date COLONOSCOPY SCREENING PAST SURGICAL HISTORY OF 09/14/2020 lumbar surgery x2 PAST SURGICAL HISTORY OF Right cyst removed from back by right shoulder PAST SURGICAL HISTORY OF testicle removed History reviewed. No pertinent family history. SOCIAL HISTORY: Social History Tobacco Use Smoking status: Former Current packs/day: 0.00 Average packs/day: 0.5 packs/day for 15.0 years (7.5 ttl pk-yrs) Types: Cigarettes Start date: 1977 Quit date: 1992 Years since quittin.9 Smokeless tobacco: Never Tobacco comments: Quit years ago Substance Use Topics Alcohol use: Yes Alcohol/week: 2.0 standard drinks of alcohol Types: 2 Cans of Beer (12oz) per week Comment: 1 beer 2-3 days a week Drug use: Never MEDICATIONS: Prior to Admission medications as of 07/22/24 1339 Medication Sig Last Dose Taking rosuvastatin (CRESTOR) 20 mg tablet Take 20 mg by mouth every morning. Taking Yes celecoxib (CELEBREX) 100 mg capsule Take 100 mg by mouth once daily. Yes lisinopril (ZESTRIL) 10 mg tablet Take 10 mg by mouth every morning. Taking Yes Docusate Sodium 100 mg tab Take 100 mg by mouth every morning. Taking Yes cyanocobalamin (VITAMIN B-12) 1,000 mcg tab Take 1,000 mcg by mouth once daily. Taking Yes aspirin, enteric coated (ASPIRIN, ENTERIC COATED) 81 mg EC tablet Take 81 mg by mouth once daily. Taking Yes MULTIVITAMIN ORAL Take by mouth once daily. Taking Yes oxyCODONE IR (ROXICODONE) 10 mg tab Take 5 mg by mouth. Taking Yes esomeprazole (NEXIUM) 40 mg capsule Taking Yes oxyCODONE IR (ROXICODONE) 5 mg immediate release tablet TAKE 1 TABLET (5 MG TOTAL) BY MOUTH IN THE MORNING AND 1 TABLET (5 MG TOTAL) BEFORE BEDTIME. Taking Yes DULoxetine (CYMBALTA) 30 mg capsule Take 30 mg by mouth. Taking Yes Melatonin 5 mg cap Take 5 mg by mouth. Taking Yes metFORMIN (GLUCOPHAGE) 500 mg tablet Take 500 mg by mouth. Taking Yes tamsulosin (FLOMAX) 0.4 mg Take 0.4 mg by mouth. Taking Yes mupirocin (BACTROBAN) 2 % ointment two times a day for 5 days. Apply 0.5 inch with cotton swab (Q-tip) to each nostril in the morning and evening for 5 days prior to and including day of surgery. No medication comments found. CURRENT ALLERGIES: ALLERGIES Allergen Reactions Simvastatin Unknown Covid Immunization Dates Covid-19 Vaccine (Series Information) Completed 05/08/2024 Imm Admin: COVID-19 vaccine, age 12+ yr ([employer]) 05/15/2023 Imm Admin: COVID-19 vaccine, age 12+ yr, 2022- season ([employer]) 06/09/2022 Imm Admin: COVID-19 vaccine, age 12+ yr, bivalent ([employer]) 12/31/2021 Imm Admin: COVID-19 original vaccine, age 12+ yr, monovalent ([employer] - LI TOP) 06/12/2021 Imm Admin: COVID-19 original vaccine, age 12+ yr, monovalent ([employer] - PURPLE TOP) Only the first 5 history entries have been loaded, but more history exists. REVIEW OF SYSTEMS: PAIN ASSESSMENT: Pain Pain Level: 8 Pain Location: Shoulder-Left Description: Shooting, Dull, Aching Duration Units: Months Frequency: Continuous Intervention/Comfort measure: Medication General: No weight loss, malaise or fevers. Neuro: Postive for Stroke-No residual deficit, Negative for TIA's Headaches Seizures Respiratory: Positive for Mild COPD, Negative for Current cough, Dyspnea, Home O2 Cardiovascular: Positive for: Anticoagulation therapy, HLD, Hypertension, Negative for Arrhythmia, CAD, Chest Pain, DVT/PE GI: Positive for GERD, Negative for Abdominal pain, Difficulty swallowing, Liver disease : Negative for dysuria, frequency, and incontinence, Positive for kidney stones Endocrine: Diabetes Mellitus on oral agent Hematology: Chronic anti-coagulation / platelet meds (Aspirin) Oncology: No history of CA metastasis, chemo within 30 days, or radiotherapy within 90 days. Has not lost 10% of body wt in 6 months. No history of oncological symptoms or problems. Psych: Anxiety Marijuana use: No Musculoskeletal: See HPI Skin: Negative for lesions, rash and itching. Implanted Devices: No Objective PHYSICAL EXAM: VITALS: BP 92/59 Pulse 81 Temp 97.7 Ht 5' 8 (1.73m) Wt 166 lb 12.8 oz (75.7kg) SpO2 96% BMI 25.37 kg/(m^2). General: Alert and oriented, No acute distress Skin: Normal color, no rash, no lesions. HEENT: EOM, pupils equal, round and reactive. Cardiovascular: Normal S1 & S2, no rubs, murmurs or gallops. No JVD. Pulse regular. Lungs: Normal breath sounds, no wheezes or crackles., No chest deformities or chest wall tenderness. Abdomen: Soft, non-tender, no rigidity., No masses or organomegaly. Extremities: Joint tenderness left shoulder Neurological: Normal cognition and motor skills. Gait normal. No weakness or sensory deficit. Pulses: Carotid and radial pulses normal +2. Diagnostic tests reviewed for today's visit: Lab Value Units Date High Low HB No results within date range. HCT No results within date range. WBC No results within date range. PLT No results within date range. NA No results within date range. K No results within date range. GLUC No results within date range. BUN No results within date range. CREAT No results within date range. PTSEC No results within date range. INR No results within date range. APTT No results within date range. ALT No results within date range. AST No results within date range. TBILI No results within date range. TSH No results within date range. Hemoglobin A1C (%) Date Value 07/31/2023 5.8 EKG in office 07/22/2024 Preliminary result: NORMAL SINUS RHYTHM NORMAL ECG Echo 03/25/24 Left ventricle appears normal in size with moderate focal basal increased wall thickness/hypertrophy. Remaining wall segments are mildly increased. Systolic function is normal with an ejection fraction of 60-65% and no segmental wall motion abnormalities. Aortic sclerosis without stenosis Mitral regurgitation, mild Tricuspid regurgitation, mild Normal atria Instructions Given to Patient: Instructions located in the after visit summary. Patient given verbal and written preop instructions and voices comprehension and compliance. SIGNATURE: Eric Kebede APRN.CNP PATIENT NAME: Tyler Torres DATE: 07/22/2024 TIME: 1:21 PM documented in this encounter [facility] 07-22-2024 Note HNO ID: [id number] Author: KELLY CASEY RT(Mahesh) Service: ? Author Type: Technologist Type: Progress Notes Filed: 07/22/2024 09:59 Note Text: Radiology Service Progress Note PATIENT NAME: Tyler Torres DATE OF SERVICE: July 22, 2024 TIME: 9:59 AM PATIENT IDENTITY VERIFICATION COMPLETED USING TWO (2) IDENTIFIERS: Name and Date of confirmed by patient verbally. FALL SCREENING: Has the patient had 2 falls in the last year or 1 fall with injury or currently using an Ambulatory Assistive Device (Walker, Cane, Wheelchair, Crutches, etc.)? No PATIENT GENDER DATA: Male PATIENT RELEVANT IMPLANT DATA REVIEWED: Not Applicable PATIENT PRESENTS WITH AN IMPLANTABLE OR ATTACHED TALENT SCOUT: No RADIOLOGY DEPARTMENT: CT; Exam(s) Completed: Upper extremity PERIPHERAL IV DATA: Not applicable SIGNED BY: MARY Quintanilla) July 22, 2024 9:59 AM [facility] 07-22-2024 History of Present illness Narrative Radiology Service Progress Note PATIENT NAME: Tyler Torres DATE OF SERVICE: July 22, 2024 TIME: 9:59 AM PATIENT IDENTITY VERIFICATION COMPLETED USING TWO (2) IDENTIFIERS: Name and Date of confirmed by patient verbally. FALL SCREENING: Has the patient had 2 falls in the last year or 1 fall with injury or currently using an Ambulatory Assistive Device (Walker, Cane, Wheelchair, Crutches, etc.)? No PATIENT GENDER DATA: Male PATIENT RELEVANT IMPLANT DATA REVIEWED: Not Applicable PATIENT PRESENTS WITH AN IMPLANTABLE OR ATTACHED TALENT SCOUT: No RADIOLOGY DEPARTMENT: CT; Exam(s) Completed: Upper extremity PERIPHERAL IV DATA: Not applicable SIGNED BY: MARY Quintanilla) July 22, 2024 9:59 AM documented in this encounter [facility] 07-22-2024 Note HNO ID: [id number] Author: CONCHIS ACOSTA RT(R) Service: ? Author Type: Technologist Type: Progress Notes Filed: 07/22/2024 09:49 Note Text: Radiology Service Progress Note PATIENT NAME: Tyler Torres DATE OF SERVICE: July 22, 2024 TIME: 9:49 AM PATIENT IDENTITY VERIFICATION COMPLETED USING TWO (2) IDENTIFIERS: Name and Date of confirmed by patient verbally. FALL SCREENING: Has the patient had 2 falls in the last year or 1 fall with injury or currently using an Ambulatory Assistive Device (Walker, Cane, Wheelchair, Crutches, etc.)? Yes, Patient High Risk for Falls What interventions were put in place to prevent falls during this visit? Instructed Patient to Remain Seated (Not on Exam Table) Until Exam and Increased Observations by Caregivers PATIENT GENDER DATA: Male PATIENT RELEVANT IMPLANT DATA REVIEWED: Not Applicable PATIENT PRESENTS WITH AN IMPLANTABLE OR ATTACHED TALENT SCOUT: No RADIOLOGY DEPARTMENT: General X-ray: Exam(s) Completed: Chest X-Ray PERIPHERAL IV DATA: Not applicable SIGNED BY: RT Lou(R) July 22, 2024 9:49 AM [facility] 07-22-2024 History of Present illness Narrative Radiology Service Progress Note PATIENT NAME: Tyler Torres DATE OF SERVICE: July 22, 2024 TIME: 9:49 AM PATIENT IDENTITY VERIFICATION COMPLETED USING TWO (2) IDENTIFIERS: Name and Date of confirmed by patient verbally. FALL SCREENING: Has the patient had 2 falls in the last year or 1 fall with injury or currently using an Ambulatory Assistive Device (Walker, Cane, Wheelchair, Crutches, etc.)? Yes, Patient High Risk for Falls What interventions were put in place to prevent falls during this visit? Instructed Patient to Remain Seated (Not on Exam Table) Until Exam and Increased Observations by Caregivers PATIENT GENDER DATA: Male PATIENT RELEVANT IMPLANT DATA REVIEWED: Not Applicable PATIENT PRESENTS WITH AN IMPLANTABLE OR ATTACHED TALENT SCOUT: No RADIOLOGY DEPARTMENT: General X-ray: Exam(s) Completed: Chest X-Ray PERIPHERAL IV DATA: Not applicable SIGNED BY: RT Lou(R) July 22, 2024 9:49 AM documented in this encounter [facility] 07-22-2024 Instructions Eric Kebede APRN.OFFSHORING MANAGER - 07/22/2024 7:15 AM EST Images from the original note were not included. [facility] PATIENT PREOPERATIVE INSTRUCTIONS Hung Jacobsen MD has scheduled you for your procedure at this surgery center: [facility] Scheduling Office: [phone] [address] [place] [address]. Please read below carefully for your personalized instructions. Dietary Restrictions: - No solid food after midnight. - You may have 12 ounces of clear liquids (water, clear juices such as apple juice or gatorade, carbonated beverages, clear tea, black coffee, jello) until 2 hours before scheduled arrival at facility. Pre-Surgery Med Instructions Medication Instructions rosuvastatin (CRESTOR) 20 mg tablet Take the day of surgery with a small sip of water celecoxib (CELEBREX) 100 mg capsule Stop 7 days before surgery lisinopril (ZESTRIL) 10 mg tablet Take the day of surgery with a small sip of water Docusate Sodium 100 mg tab Do not take the day of surgery cyanocobalamin (VITAMIN B-12) 1,000 mcg tab Do not take the day of surgery aspirin, enteric coated (ASPIRIN, ENTERIC COATED) 81 mg EC tablet Do not take the day of surgery MULTIVITAMIN ORAL Do not take the day of surgery esomeprazole (NEXIUM) 40 mg capsule Take the day of surgery with a small sip of water oxyCODONE IR (ROXICODONE) 5 mg immediate release tablet As needed DULoxetine (CYMBALTA) 30 mg capsule Take the day of surgery with a small sip of water Melatonin 5 mg cap Do not take the day of surgery metFORMIN (GLUCOPHAGE) 500 mg tablet Do not take the day of surgery tamsulosin (FLOMAX) 0.4 mg Do not take the day of surgery If you start any new medications after today's visit, please contact the surgeon's office. If you are currently using a [id number] injectable or oral medication for diabetes or weight loss such as Dulaglutide (Trulicity), Exenatide (Byetta, Bydureon), Liraglutide (Victoza, Saxenda), Semaglutide (Ozempic, Wegovy, Rybelsus), or Tirzepatide (Mounjaro) the medicine should be stopped at least seven days before surgery. These medications can cause food to remain in your stomach for a long time and increase the risks from surgery and anesthesia. Not stopping these medications for the required time, may result in your surgery being rescheduled. Blood Thinning Medications: - Stop NSAIDS (Ibuprofen, Advil, Aleve, Motrin, Celebrex, Mobic, etc.) 7 days before surgery, as directed by your surgeon. - Stop herbals and dietary supplements 7 days before surgery. - You may take Tylenol (Acetaminophen) or any of your pain medications that do not contain aspirin or NSAIDS as needed. Important Reminders: - Candy, mints, and tobacco products are NOT permitted the morning of surgery. - Hearing aids, dentures and glasses may be worn the morning of surgery. - NO jewelry, body piercings, makeup, hairpins or contacts are to be worn the day of surgery. If you develop symptoms such as a fever, cold, or flu, or have other changes to your health within TWO DAYS of scheduled surgery or the morning of surgery, please contact the surgery center above. Personal Belongings: -Please have photo ID and insurance cards. -If you do not have a copy of advance directives on file with us, please bring a copy with you on the day of surgery. - Leave ALL valuables and money at home or with family members. For Outpatient Procedures: - YOU MUST HAVE A RESPONSIBLE SOCIAL SCIENCE ANALYST TAKE YOU HOME. A CORPORATE COMMUNICATIONS MANAGER OR SOFTWARE DEVELOPER CONSULTANT CANNOT BE MADE A RESPONSIBLE SOCIAL SCIENCE ANALYST. - We recommend that a responsible person stays with you overnight to take care of you. - You cannot stay in a hotel alone after outpatient surgery. You will not be permitted to have your surgery, if you do not have someone to take care of you. Arrival Time for Surgery: - To obtain your arrival time for surgery, call your physician's office the day before your surgery. - If your surgery is scheduled for Monday, call the Monday before. Your surgeon s operating room scheduler will tell you what time to call the office. - If you have not reached the departmental operating room scheduler by 5 P.M., call [phone] after 5 P.M. the day before your surgery. Please be aware that emergency situations arise, which may delay or change your surgical time. If this happens, we will notify you as soon as possible and regret any inconvenience. If you already have an Advance Directive, please fax a copy to [phone] or email to for it to be added to your chart. If you do not have an Advance Directive, you can find the appropriate form and more information at [email or web address]. We recommend that you complete the Advance Directive form found on the website and bring it with you the day of your surgery. It can be witnessed and scanned into your chart that day. documented in this encounter [facility] 07-20-2024 Miscellaneous Notes Refill request documented in this encounter [facility] 07-20-2024 Telephone encounter Note Refill request [facility] 06-27-2024 Miscellaneous Notes Refill request documented in this encounter [facility] 06-27-2024 Telephone encounter Note Refill request [facility] 06-27-2024 Miscellaneous Notes Refill request documented in this encounter [facility] 06-27-2024 Telephone encounter Note Refill request [facility] 06-19-2024 Miscellaneous Notes Refill request documented in this encounter [facility] 06-19-2024 Telephone encounter Note Refill request [facility] 06-19-2024 Miscellaneous Notes Patient wants to know if he is to stay on celebrex. And if he is, can you be the one to refill it. If it helps him with his symptoms, he can stay on it and it can be refilled through here. Spoke with patient, he would like to continue celebrex, refill request sent documented in this encounter [facility] 06-19-2024 Telephone encounter Note Patient wants to know if he is to stay on celebrex. And if he is, can you be the one to refill it. [facility] 06-19-2024 Telephone encounter Note If it helps him with his symptoms, he can stay on it and it can be refilled through here. [facility] 06-19-2024 Telephone encounter Note Spoke with patient, he would like to continue celebrex, refill request sent [facility] 06-18-2024 Note HNO ID: [id number] Author: HUNG JACOBSEN MD Service: ? Author Type: Physician Type: Progress Notes Filed: 06/18/2024 15:47 Note Text: SHOULDER/ELBOW ESTABLISHED VISIT SERVICE DATE: 06/18/2024 PCP: Armando Richards MD, MD CHIEF COMPLAINT: Bilateral shoulder FU SUBJECTIVE HISTORY OF PRESENT ILLNESS: 79 year old male last CSI February 2024. Didn't really help last time. Left side worse than right pain up to 6-8 at constant level. No DM A1c 6.1 Non Smoker Still walking 1/2 mile daily, leg strength is improving significantly. 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 esomeprazole (NEXIUM) 40 mg capsule oxyCODONE-acetaminophen (PERCOCET) 5-325 mg tablet Take by mouth. oxyCODONE IR (ROXICODONE) 5 mg immediate release tablet TAKE 1 TABLET (5 MG TOTAL) BY MOUTH IN THE MORNING AND 1 TABLET (5 MG TOTAL) BEFORE BEDTIME. DULoxetine (CYMBALTA) 30 mg capsule Take 30 mg by mouth. cyclobenzaprine (FLEXERIL) 5 mg tablet Take 5 mg by mouth three times a day. celecoxib (CELEBREX) 100 mg capsule Take by mouth. gabapentin (NEURONTIN) 300 mg capsule Take 1 capsule by mouth three times daily. Melatonin 5 mg cap Take 5 mg by mouth. metFORMIN (GLUCOPHAGE) 500 mg tablet Take 500 mg by mouth. tamsulosin (FLOMAX) 0.4 mg Take 0.4 mg by mouth. OBJECTIVE There were no vitals taken for this visit. PHYSICAL EXAMINATION: Alert and oriented x3, able to stand today with assistance of only 1 arm. Able to stand straight. Does get fatigue in the legs Painless neck ROM in all planes. Negative Spurling's. No radiating numbness or tingling past elbows. No visibile head, eyes, ear, neck, throat deformities L Shoulder ROM 900/0/SIJ R Shoulder ROM 90/0/SIJ External rotation 5 out of 5. Belly press unable to be assessed, biceps tender palpation positive speeds bilaterally Axillary, Long Thoracic, CN XI, Median, Ulnar, Radial, musculocutaneous nerves intact to motor and sensation. Fingers warm and well perfused, BCR< 2sec. Radial Pulse 2+ RADIOGRAPHIC RESULTS: Imaging was personally reviewed by myself today XR of Bilateral Shoulders today show severe GHOA. Medialization of joint line ASSESSMENT Bilateral glenohumeral arthritis with severe glenoid bone loss PLAN DIAGNOSIS: (M25.512, G89.29) Chronic left shoulder pain (primary encounter diagnosis) (M19.011, M19.012) Primary osteoarthritis of both shoulders (M75.22) Biceps tendinitis of left shoulder (M75.21) Biceps tendinitis of right upper extremity (M75.82) Rotator cuff tendinitis, left Bilateral glenohumeral arthritis. Left side worse than right. Discussed with the patient due to severe bone loss would consider doing a reverse shoulder replacement. Discussed that the goal would be to get him home however if he needs ambulatory assistance to avoid weightbearing on left upper extremity he may have a short fpc facility stay. I discussed the below risks, expected postoperative course. Will get a preoperative CT scan. Will plan for a shoulder reverse replacement Risks, Benefits, Alternatives of reverse shoulder replacement left surgery discussed with patient and their family. They are aware of the risks including but not limited to infection, bleeding/vessel injury, nerve injury, DVT, PE, hardware failure and complications, need for revision surgery, fracture and wound healing issues. Discussion of anesthetic complications including block related complications, post-op medical complications such as [place]/pneumonia/etc, and were also discussed, and patient advised to discuss further with preoperative clearance physicians and anesthesia team prior to surgery. All questions were answered for patient today, they should not hesitate to call the office with any issues. Medical Decision Making: Medical Decision Making Level: 1 - N/A Hung Jacobsen MD [facility] 06-18-2024 History of Present illness Narrative SHOULDER/ELBOW ESTABLISHED VISIT SERVICE DATE: 06/18/2024 PCP: Armando Richards MD, MD CHIEF COMPLAINT: Bilateral shoulder FU SUBJECTIVE HISTORY OF PRESENT ILLNESS: 79 year old male last CSI February 2024. Didn't really help last time. Left side worse than right pain up to 6-8 at constant level. No DM A1c 6.1 Non Smoker Still walking 1/2 mile daily, leg strength is improving significantly. 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 esomeprazole (NEXIUM) 40 mg capsule oxyCODONE-acetaminophen (PERCOCET) 5-325 mg tablet Take by mouth. oxyCODONE IR (ROXICODONE) 5 mg immediate release tablet TAKE 1 TABLET (5 MG TOTAL) BY MOUTH IN THE MORNING AND 1 TABLET (5 MG TOTAL) BEFORE BEDTIME. DULoxetine (CYMBALTA) 30 mg capsule Take 30 mg by mouth. cyclobenzaprine (FLEXERIL) 5 mg tablet Take 5 mg by mouth three times a day. celecoxib (CELEBREX) 100 mg capsule Take by mouth. gabapentin (NEURONTIN) 300 mg capsule Take 1 capsule by mouth three times daily. Melatonin 5 mg cap Take 5 mg by mouth. metFORMIN (GLUCOPHAGE) 500 mg tablet Take 500 mg by mouth. tamsulosin (FLOMAX) 0.4 mg Take 0.4 mg by mouth. OBJECTIVE There were no vitals taken for this visit. PHYSICAL EXAMINATION: Alert and oriented x3, able to stand today with assistance of only 1 arm. Able to stand straight. Does get fatigue in the legs Painless neck ROM in all planes. Negative Spurling's. No radiating numbness or tingling past elbows. No visibile head, eyes, ear, neck, throat deformities L Shoulder ROM 900/0/SIJ R Shoulder ROM 90/0/SIJ External rotation 5 out of 5. Belly press unable to be assessed, biceps tender palpation positive speeds bilaterally Axillary, Long Thoracic, CN XI, Median, Ulnar, Radial, musculocutaneous nerves intact to motor and sensation. Fingers warm and well perfused, BCR< 2sec. Radial Pulse 2+ RADIOGRAPHIC RESULTS: Imaging was personally reviewed by myself today XR of Bilateral Shoulders today show severe GHOA. Medialization of joint line ASSESSMENT Bilateral glenohumeral arthritis with severe glenoid bone loss PLAN DIAGNOSIS: (M25.512, G89.29) Chronic left shoulder pain (primary encounter diagnosis) (M19.011, M19.012) Primary osteoarthritis of both shoulders (M75.22) Biceps tendinitis of left shoulder (M75.21) Biceps tendinitis of right upper extremity (M75.82) Rotator cuff tendinitis, left Bilateral glenohumeral arthritis. Left side worse than right. Discussed with the patient due to severe bone loss would consider doing a reverse shoulder replacement. Discussed that the goal would be to get him home however if he needs ambulatory assistance to avoid weightbearing on left upper extremity he may have a short fpc facility stay. I discussed the below risks, expected postoperative course. Will get a preoperative CT scan. Will plan for a shoulder reverse replacement Risks, Benefits, Alternatives of reverse shoulder replacement left surgery discussed with patient and their family. They are aware of the risks including but not limited to infection, bleeding/vessel injury, nerve injury, DVT, PE, hardware failure and complications, need for revision surgery, fracture and wound healing issues. Discussion of anesthetic complications including block related complications, post-op medical complications such as [place]/pneumonia/etc, and were also discussed, and patient advised to discuss further with preoperative clearance physicians and anesthesia team prior to surgery. All questions were answered for patient today, they should not hesitate to call the office with any issues. Medical Decision Making: Medical Decision Making Level: 1 - N/A Hung Jacobsen MD documented in this encounter [facility] 06-10-2024 Miscellaneous Notes Refill request. documented in this encounter [facility] 06-10-2024 Telephone encounter Note Refill request. [facility] 06-06-2024 History of Present illness Narrative Patient: Tyler Torres : 1945 PCP: No primary care provider on file. SUBJECTIVE This is a 79 y.o. male that presents today with a CC of elongated, thick nails. Pt states nails have been elongated and thick for many years and cause pain with ambulation in shoegear. Pt has tried previous treatment with minimal relief. Pt presents today for nail care and treatment. positive hx of venous stasis to b/l legs. Patient is type 2 diabetic Allergies: No Known Allergies Past Medical History: Past Medical History: Diagnosis Date History of esophagogastroduodenoscopy (EGD) 2015 and colonoscopy History of esophagogastroduodenoscopy (EGD) 2018 for esophageal stricture Hyperlipidemia ([facility]/HCC) Leg pain Lower back pain Neuropathy in diabetes ([facility]) Onychomycosis S/P epidural steroid injection 2012 Tinea pedis Medications: Current Outpatient Medications: celecoxib (CeleBREX) 200 MG capsule, Take 200 mg by mouth in the morning., Disp: , Rfl: cetirizine (ZyrTEC) 10 MG tablet, Take 10 mg by mouth 1 (one) time each day at the same time., Disp: , Rfl: cholecalciferol (Vitamin D-3) 50 MCG (2000 UT) capsule, Take 2,000 Units by mouth in the morning., Disp: , Rfl: esomeprazole (NexIUM) [address] capsule, Take 40 mg by mouth in the morning and 40 mg before bedtime., Disp: , Rfl: gabapentin (Neurontin) 300 MG capsule, Take 600 mg by mouth in the morning and 600 mg in the evening and 600 mg before bedtime., Disp: , Rfl: meloxicam (Mobic) 15 MG tablet, Take 15 mg by mouth 1 (one) time each day at the same time., Disp: , Rfl: metFORMIN (Glucophage) 500 MG tablet, Take 500 mg by mouth 1 (one) time each day at the same time., Disp: , Rfl: omeprazole (PriLOSEC) [address] capsule, Take 1 capsule by mouth 1 (one) time each day at the same time., Disp: , Rfl: oxyCODONE (Roxicodone) 5 MG immediate release tablet, Take 5 mg by mouth in the morning and 5 mg in the evening., Disp: , Rfl: tamsulosin (Flomax) 0.4 MG 24 hr capsule, , Disp: , Rfl: Social History: Social History Socioeconomic History Marital status: Spouse name: Not on file Number of children: Not on file Years of education: Not on file Highest education level: Not on file Occupational History Not on file Tobacco Use Smoking status: Former Current packs/day: 0.00 Types: Cigarettes Start date: 1968 Quit date: 1978 Years since quittin.8 Passive exposure: Past Smokeless tobacco: Never Vaping Use Vaping status: Unknown Substance and Sexual Activity Alcohol use: Yes Alcohol/week: 4.0 standard drinks of alcohol Types: 4 Standard drinks or equivalent per week Comment: 4 or more times a week Drug use: Never Sexual activity: Defer Partners: Decline to Answer Other Topics Concern Not on file Social History Narrative Not on file Social Drivers of Health Financial Resource Strain: Low Risk (08/24/2023) Received from [facility], [facility] Overall Financial Resource Strain (CARDIA) Difficulty of Paying Living Expenses: Not hard at all Food Insecurity: No Food Insecurity (05/29/2024) Received from [facility] Hunger Screening Within the past 12 months we worried whether our food would run out before we got money to buy more.: Never True Within the past 12 months the food we bought just didn't last and we didn't have money to get more.: Never True Transportation Needs: No Transportation Needs (03/24/2024) Received from [facility] PRAPARE - Transportation Lack of Transportation (Medical): No Lack of Transportation (Non-Medical): No Physical Activity: Not on file Stress: Not on file Social Connections: Not on file Intimate Partner Violence: Not on file Housing Stability: Low Risk (03/24/2024) Received from [facility] Housing Instability Are you worried or concerned that in the next two months you may not have stable housing that you own, rent or stay in as a part of a household?: No ROS: General: denies fever, chills, fatigue, malaise OBJECTIVE LE EXAM: DERM: Elongated thick yellow crumbly nails digits 1 through 10. Positive hair growth b/l feet. +1 pitting edema to b/l ankles VASC: Positive palpable pedal pulses bilaterally NEURO: positive sensation to b/l feet with 5.07 SWM filament to digits and tuning fork sensation positive to first MPJ regions b/l ORTHO: Positive pain on palpation to nails 1 through 10 ASSESSMENT 1. Type 2 diabetes mellitus without complication, with long-term current use of insulin ([facility]) 2. Pain due to onychomycosis of toenails of both feet PLAN Discussed proper foot care with patient today. Debride nails in length and thickness digits 1 through 10 Pt to continue with compression stockings daily and keep feet elevated when NWB. Patient educated today on proper diabetic foot care including monitoring feet daily for any signs of infection openings in the skin or irregularities to both feet. Patient had a diabetic neurological exam today to both their feet and discussed proper shoe gear. Manan Baker DPM documented in this encounter [facility] 05-29-2024 History of Present illness Narrative Subjective SUBJECTIVE: Patient ID: Tyler Torres is a 79 y.o. male who presents for a Medicare Annual Wellness exam. Comes in for wellness. Overall he is doing a little bit better and getting around a little bit better. He still uses a walker but he is able to get out of a chair independently. Shoulders continue to bother him and he is going to see ortho regarding that. Saw vascular yesterday regarding nonsurgical range carotid stenosis and prior small occipital infarct. He is a little bit confused about his medication but he is on Plavix. His vision has gotten better. He has no new pressing concerns today. The following portions of the patient's history were reviewed and updated as appropriate: allergies, current medications, past family history, past medical history, past social history, past surgical history and problem list. AWV FLOWSHEET : Lifestyle Assessment Do you smoke or use smokeless tobacco?: No If you smoke or use smokeless tobacco, are you ready to quit?: NA Are you exposed to secondhand smoke?: (!) Yes On average, how many drinks of alcohol do you consume in a week?: 2 - 5 Do you exercise for 30 or more minutes on average at least 3 days a week?: Always Do you have any tooth, denture, or oral problems?: No Do you snore or has anyone told you that you snore?: (!) Yes Do you try to eat a balanced diet?: Yes Do you experience leakage of urine, also known as urinary incontinence?: Never Do you have difficulty performing any of these activities? (check all that apply): (!) Getting out of a chair, Using the toilet Do you have difficulty performing any of these activities? (check all that apply): None Fall Risk Fall Risk Assessment Completed?: Yes Have you fallen in the past year?: (!) Yes How many times?: 2+ Were you injured?: No Are you worried about falling?: No Do you feel unsteady when standing or walking?: No Risk Stratification: High Risk Depression Screening Little interest or pleasure in doing things: (!) Several days Feeling down, depressed, or hopeless: Not at all Trouble falling or staying asleep, or sleeping too much: (!) Nearly every day Feeling tired or having little energy: (!) Nearly every day Poor appetite or overeating: Not at all Feeling bad about yourself - or that you are a failure or have let yourself or your family down: Not at all Trouble concentrating on things, such as reading the newspaper or watching television: Not at all Moving or speaking so slowly that other people could have noticed. Or the opposite - being so fidgety or restless that you have been moving around a lot more than usual: Not at all Thoughts that you would be better off , or of hurting yourself in some way: Not at all PEG Scale What number best describes your pain on average in the past week?: 5 What number best describes how, during the past week, pain has interfered with your enjoyment of life?: 5 What number best describes how, during the past week, pain has interfered with your general activity?: 5 PEG Pain Total Score: 5 Safety Assessment Do you have throw rugs on the floor?: (!) Yes Do you feel safe at your home?: Yes Do you feel unsteady when walking?: (!) Yes Are you having difficulty with driving?: No Do you have trouble seeing?: No What assistive device do you use? (check all that apply): (!) Raised toilet seat, Walker Hearing Assessment Do you strain or struggle to hear/understand conversations?: (!) Yes Do you have trouble hearing the television or radio when others do not?: (!) Yes Does your family ever voice concerns about your hearing?: (!) Yes Do you wear hearing aid/s?: (!) Yes Personal Health During the past 4 weeks, how would you rate your overall health?: (!) Fair Do you understand how to take all of your medications?: Yes How confident are you that you can control and manage most of your health problems?: Very confident In the past 12 months, how many times have you been hospitalized?: (!) One End of Life Planning Do you have a living will?: Yes Do you have a durable power of claim attorney?: (!) No Cognitive Screening Do you have trouble remembering or recalling facts or events?: No Do family members or caregivers report that you have difficulty remembering things?: No Clock Drawing Test: Normal REVIEW OF SYSTEMS: Review of Systems Constitutional: Negative for unexpected weight change. HENT: Negative for trouble swallowing and voice change. Respiratory: Negative for shortness of breath. Cardiovascular: Negative for chest pain and leg swelling. Gastrointestinal: Negative for anal bleeding. Genitourinary: Negative for dysuria and hematuria. Musculoskeletal: Positive for arthralgias and back pain. Neurological: Negative for headaches. Objective PHYSICAL EXAMINATION: Vitals: 05/29/24 0909 BP: 110/64 Pulse: 75 Weight: 75.5 kg (166 lb 6.4 oz) Height: 172.1 cm (5' 7.75 ) Physical Exam Constitutional: Comments: Interacts appropriately. His blood pressure is normal. HENT: Ears: Comments: Hearing aids Mouth/Throat: Comments: Dentures Eyes: Pupils: Pupils are equal, round, and reactive to light. Neck: Vascular: No carotid bruit. Cardiovascular: Rate and Rhythm: Normal rate and regular rhythm. Heart sounds: Murmur heard. Pulmonary: Effort: Pulmonary effort is normal. Breath sounds: Normal breath sounds. Abdominal: General: There is no distension. Palpations: Abdomen is soft. Tenderness: There is no abdominal tenderness. Musculoskeletal: Right lower leg: No edema. Left lower leg: No edema. Neurological: Mental Status: He is alert. Mental status is at baseline. Assessment/Plan ASSESSMENT/PLAN Medication reviewed. Pain medication reviewed. Specialty follow-up reviewed. Recent labs reviewed. Routine follow-up for medication check and annually for wellness. Diagnoses and all orders for this visit: Routine general medical examination at a health care facility Lumbar degenerative disc disease - oxyCODONE (ROXICODONE) 5 mg immediate release tablet; Take 1 tablet (5 mg total) by mouth in the morning and 1 tablet (5 mg total) before bedtime. Max Daily Amount: 10 mg. Type 2 diabetes mellitus without complication, without long-term current use of insulin ([facility]) documented in this encounter [facility] 05-28-2024 History of Present illness Narrative Images from the original note were not included. [facility] [address] [place] [id number] Subjective: Patient ID: Tyler Torres is a 79 y.o. male. Chief Complaint: Double vision. Chief Complaint Patient presents with Carotid Artery Disease New patient, Stenosis of right internal carotid artery, had Vas carotid duplex bilateral completed on 03/25/24. History of Present Illness: 79-year-old who while fishing in March noticed that he had double vision. Patient was later on taken to the hospital evaluated and kept overnight. During workup he was noted to have right carotid artery stenosis in the range of 60% by CT angiogram. He had negative CT scan of the brain for any bleed. MRI of the brain showed punctate foci of acute ischemia in the right occipital cortex. Patient has been seen by neurology service discharge. We are asked to evaluate him for carotid disease. Patient currently is on Plavix along with blood pressure and diabetes medication Crestor 20 mg a day. He is not very active see us trouble walking because of back surgeries x2. He has been stable since discharge hospital. He denies any prior TIAs or CVAs. Patient denies any rest pains in the legs. Patient is type 2 diabetic. Patient Active Problem List Diagnosis Type 2 diabetes mellitus without complication, without long-term current use of insulin ([facility]) Gastroesophageal reflux disease without esophagitis Generalized osteoarthritis ROMEO (obstructive sleep apnea) Mixed hyperlipidemia Hypercalcemia Dizziness Double vision Elevated BP without diagnosis of hypertension Current Outpatient Medications: celecoxib (CeleBREX) 100 mg capsule, Take 1 capsule (100 mg total) by mouth in the morning and 1 capsule (100 mg total) before bedtime., Disp: , Rfl: clonazePAM (KlonoPIN) 0.5 mg tablet, Take 1 tablet (0.5 mg total) by mouth 2 (two) times a day as needed for anxiety (restlessness, insomnia)., Disp: 10 tablet, Rfl: 0 cyanocobalamin 1000 MCG tablet, Take 1 tablet (1,000 mcg total) by mouth in the morning for 210 days., Disp: 30 tablet, Rfl: 6 docusate sodium (COLACE) 100 mg capsule, Take 1 capsule (100 mg total) by mouth in the morning and 1 capsule (100 mg total) before bedtime., Disp: 60 capsule, Rfl: 2 DULoxetine (CYMBALTA) 30 mg capsule, TAKE 1 CAPSULE (30 MG TOTAL) BY MOUTH IN THE MORNING, Disp: 90 capsule, Rfl: 2 esomeprazole (NexIUM) 40 mg capsule, Take 1 capsule (40 mg total) by mouth in the morning and 1 capsule (40 mg total) before bedtime., Disp: , Rfl: lisinopriL (PRINIVIL,ZESTRIL) 10 mg tablet, Take 1 tablet (10 mg total) by mouth in the morning., Disp: 90 tablet, Rfl: 0 melatonin (CIRCADIN) capsule, Take 1 capsule (5 mg total) by mouth nightly., Disp: , Rfl: metFORMIN (GLUCOPHAGE) 500 mg tablet, TAKE 1 TABLET BY MOUTH IN THE MORNING AND 1 TABLET AT NOON AND 1 TABLET BEFORE BEDTIME, Disp: 270 tablet, Rfl: 2 oxyCODONE (ROXICODONE) 5 mg immediate release tablet, Take 1 tablet (5 mg total) by mouth in the morning and 1 tablet (5 mg total) before bedtime. Max Daily Amount: 10 mg., Disp: 60 tablet, Rfl: 0 rosuvastatin (CRESTOR) 20 mg tablet, Take 1 tablet (20 mg total) by mouth in the morning., Disp: 90 tablet, Rfl: 0 tamsulosin (FLOMAX) 0.4 mg capsule, Take 1 capsule (0.4 mg total) by mouth once daily at bedtime., Disp: 30 capsule, Rfl: 0 clopidogreL (PLAVIX) 75 mg tablet, Take 1 tablet (75 mg total) by mouth in the morning. (Patient not taking: Reported on 05/28/2024), Disp: 90 tablet, Rfl: 0 Past Medical History: Diagnosis Date COPD (chronic obstructive pulmonary disease) ([facility]) ROMEO (obstructive sleep apnea) Past Surgical History: Procedure Laterality Date COLONOSCOPY ESOPHAGOGASTRODUODENOSCOPY Family History Problem Relation Age of Onset COPD Mother Social History Socioeconomic History Marital status: Single Spouse name: Not on file Number of children: Not on file Years of education: Not on file Highest education level: Not on file Occupational History Not on file Tobacco Use Smoking status: Former Smokeless tobacco: Never Vaping Use Vaping status: Never Used Substance and Sexual Activity Alcohol use: Yes Drug use: No Sexual activity: Not on file Other Topics Concern Not on file Social History Narrative Not on file Social Determinants of Health Financial Resource Strain: Low Risk (08/24/2023) [facility] Overall Financial Resource Strain (CARDIA) Difficulty of Paying Living Expenses: Not hard at all Food Insecurity: No Food Insecurity (03/24/2024) Hunger Screening Food Insecurity - Worry: Never True Food Insecurity - Inability: Never True Transportation Needs: No Transportation Needs (03/24/2024) PRAPARE - Transportation Lack of Transportation (Medical): No Lack of Transportation (Non-Medical): No Physical Activity: Not on file Stress: Not on file Social Connections: Not on file Interpersonal Safety: Not At Risk (03/24/2024) Humiliation, Afraid, Rape, and Kick questionnaire Fear of Current or Ex-Partner: No Emotionally Abused: No Physically Abused: No Sexually Abused: No Housing Instability: Low Risk (03/24/2024) Housing Instability Housing Instability: No Allergies Allergen Reactions Simvastatin The following portions of the patient's history were reviewed and updated as appropriate: allergies, current medications, past family history, past medical history, past social history, past surgical history and problem list. Review of Systems: Constitutional: Negative HENT: Negative Eyes: Negative Respiratory: Negative Cardiac: Negative Vascular: As above. Gastrointestinal: Negative Genitourinary: Negative Musculoskeletal: Negative Skin: Negative Neurological: Negative Hematological: Negative Endocrine: Negative Psychiatric: Negative Objective: Vitals: BP 106/68 Pulse 54 Wt 75.3 kg (166 lb) SpO2 97% BMI 26.00 kg/m Physical Exam: CONSITUTIONAL: Normal exam. HENT: No abnormalities. NECK: Soft neck bruits. CARDIOVASCULAR: Normal S1 and S2 and no murmurs are audible. LUNGS: Clear bilaterally. ABDOMIN: Soft and nontender and no masses are palpable. DOCUMENT PROCESSING SPECIALIST: Speech is normal. Face is symmetrical. No gross motor sensory deficit noted. MUSCKELTAL: Both legs are well decompressed. Calves are soft and nontender. SKIN: Normal skin color of the legs without pigmentation or ulcerations. PV: Palpable radial, brachial, femoral pulses. DP and PT with Doppler. Studies Reviewed: Carotid scan study shows 50-69% stenosis on the right and less than 50% in the left side. CTA of the carotid artery shows approximately 60% stenosis on the right side. MRI of the brain shows punctate ischemic areas in the right occipital cortex. CT of the brain shows no brain bleed. No results found for: DDIMER Lab Results Component Value Date GLU 146 (H) 03/25/2024 CALCIUM 10.1 03/24/2024 SODIUM 134 03/24/2024 K 3.8 03/24/2024 CO2 25 03/24/2024 BUN 17 03/24/2024 CREATININE 0.86 03/24/2024 Lab Results Component Value Date WBC 6.6 03/24/2024 HGB 13.9 03/24/2024 HCT 42.2 03/24/2024 MCV 84 03/24/2024 PLT 263 03/24/2024 Assesment: Tyler was seen today for carotid artery disease. Diagnoses and all orders for this visit: Bilateral carotid artery stenosis - Vas carotid duplex bilateral; Future Stenosis of right internal carotid artery - Ambulatory referral to Vascular Surgery ([facility]) 79-year-old who had episode of double vision without any lateralizing neurological event 2 months ago. Patient has stayed stable since then. He was in the hospital overnight and did well and was discharged medications. Patient has been seen by neurology service on outpatient basis as well. He has no prior history of TIAs or CVAs. Carotid scan study was reviewed and I believe his degree of stenosis is in the range of 50-60% on the right side and less than 50% on the left side without any lateralizing neurological event I believe we can treat him medically without any intervention however we will follow him along closely for any deterioration in the carotid disease recurrence of symptoms. All this was discussed at length with the patient and the family. They will call us if there is any change in his status. Patient and the family had multiple questions which were all answered. Plan: Patient return in 6 months time for follow-up. This note was created with the assistance of a speech recognition program. While intending to generate a timely document that accurately reflects the content of the visit, no guarantee can be provided that every grammatical or spelling mistake has been or will be identified or corrected. Thank you for your understanding. Julio Quispe MD documented in this encounter [employer] [facility] 05-08-2024 Miscellaneous Notes Sent email to [email or web address] to check on shipment of event monitor. Was processed on 05/01 and still has a status of awaiting shipment. Event monitor cannot be sent to [employer]. Can we get an actual address for patient so we can mail it? Images from the original note were not included. Please see additional encounter Sent address to [employer]. Patient wearing though 06/17 Event monitor completed. Please review and advise. Event monitor looks benign. Followup in 6 months. Called patient to inform. He voiced understanding. documented [facility] this encounter [facility] Telephone encounter Note Sent email to [email or web address] to check on shipment of event monitor. Was processed on 05/01 and still has a status of awaiting shipment. [facility]24 Telephone encounter Note Event monitor cannot be sent to [facility]. Can we get an actual address for patient so we can mail it? [facility] 05-08-2024 Telephone encounter Note Images from the original note were not included. Please see additional encounter [facility] 05-08-2024 Telephone encounter Note Sent address to [employer]. [facility] 05-08-2024 Telephone encounter Note Patient wearing though 06/17 [facility] 05-08-2024 Telephone encounter Note Event monitor completed. Please review and advise. [facility] 05-08-2024 Telephone encounter Note Event monitor looks benign. Followup in 6 months. [employer] Work Phone: 05-08-2024 Telephone encounter Note Called patient to inform. He voiced understanding. [facility] 04-25-2024 History of Present illness Narrative Images from the original note were not included. [facility] [address] [facility] [id number] Patient: Tyler Torres Date of : 1945 Encounter Date: 04/25/2024 Patient Care Team: Armando Richards MD as PCP - General (Pediatrics) Reason for visit: History of Present Illness: Subjective: Tyler Torres is a right handed 79 y.o. 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 Patient is being seen in clinic today for routine follow up. Tyler Torres is accompanied in the office by his child. The patient walks with a walker at baseline due to back related problems and at times due to fatigue. He states since his discharge his vision symptoms have improved. Past Medical, Family, Surgical, and Social History Update: The following portions of the patient's history were reviewed and updated as appropriate: allergies, current medications, past family history, past medical history, past social history, past surgical history and problem list. Review of Systems Review of Systems Constitutional: Positive for malaise/fatigue. Negative for decreased appetite, weight gain and weight loss. HENT: Positive for hearing loss. Negative for nosebleeds. Eyes: Negative for blurred vision, double vision, vision loss in left eye, vision loss in right eye and visual disturbance. Cardiovascular: Negative for irregular heartbeat, leg swelling, near-syncope, palpitations and syncope. Respiratory: Positive for shortness of breath. Negative for sleep disturbances due to breathing. Hematologic/Lymphatic: Negative for bleeding problem. Does not bruise/bleed easily. Skin: Negative for poor wound healing. Musculoskeletal: Positive for joint pain. Negative for falls, muscle cramps, muscle weakness, myalgias and neck pain. Gastrointestinal: Negative for dysphagia. Neurological: Negative for aphonia, difficulty with concentration, disturbances in coordination, dizziness, focal weakness, headaches, light-headedness, loss of balance, numbness, paresthesias, seizures, sensory change, vertigo and weakness. Psychiatric/Behavioral: Negative for altered mental status, depression and memory loss. The patient does not have insomnia and is not nervous/anxious. Past Medical History: Diagnosis Date COPD (chronic obstructive pulmonary disease) ([facility]) ROMEO (obstructive sleep apnea) Family History Problem Relation Age of Onset COPD Mother Past Surgical History: Procedure Laterality Date COLONOSCOPY ESOPHAGOGASTRODUODENOSCOPY Current Outpatient Medications Medication Sig Dispense Refill celecoxib (CeleBREX) 100 mg capsule Take 1 capsule (100 mg total) by mouth in the morning and 1 capsule (100 mg total) before bedtime. clonazePAM (KlonoPIN) 0.5 mg tablet Take 1 tablet (0.5 mg total) by mouth 2 (two) times a day as needed for anxiety (restlessness, insomnia). 10 tablet 0 clopidogreL (PLAVIX) 75 mg tablet Take 1 tablet (75 mg total) by mouth in the morning. 90 tablet 0 docusate sodium (COLACE) 100 mg capsule Take 1 capsule (100 mg total) by mouth in the morning and 1 capsule (100 mg total) before bedtime. 60 capsule 2 DULoxetine (CYMBALTA) 30 mg capsule TAKE 1 CAPSULE (30 MG TOTAL) BY MOUTH IN THE MORNING 90 capsule 2 esomeprazole (NexIUM) 40 mg capsule Take 1 capsule (40 mg total) by mouth in the morning and 1 capsule (40 mg total) before bedtime. lisinopriL (PRINIVIL,ZESTRIL) 10 mg tablet Take 1 tablet (10 mg total) by mouth in the morning. 90 tablet 0 melatonin (CIRCADIN) capsule Take 1 capsule (5 mg total) by mouth nightly. metFORMIN (GLUCOPHAGE) 500 mg tablet TAKE 1 TABLET BY MOUTH IN THE MORNING AND 1 TABLET AT NOON AND 1 TABLET BEFORE BEDTIME 270 tablet 2 oxyCODONE (ROXICODONE) 5 mg immediate release tablet Take 1 tablet (5 mg total) by mouth in the morning and 1 tablet (5 mg total) before bedtime. Max Daily Amount: 10 mg. 60 tablet 0 rosuvastatin (CRESTOR) 20 mg tablet Take 1 tablet (20 mg total) by mouth in the morning. 90 tablet 0 tamsulosin (FLOMAX) 0.4 mg capsule Take 1 capsule (0.4 mg total) by mouth once daily at bedtime. 30 capsule 0 No current facility-administered medications for this visit. (All medications reviewed and updated by provider since last office visit or hospitalization) Tobacco History: Social History Tobacco Use Smoking Status Former Smokeless Tobacco Never (If patient a smoker, smoking cessation counseling offered) Social History: Social History Substance and Sexual Activity Alcohol Use Yes Allergies: Allergies Allergen Reactions Simvastatin Objective: Wt 75.3 kg (166 lb) BMI 26.00 kg/m Last Neuro Imaging: MRI B w/o contrast 03/24/2024 IMPRESSION: * Punctate foci of acute ischemia in the right occipital cortex and questionably in the inferomedial left thalamus. Physical Exam: Neurology Physical Exam NIH Stroke Scale 1a Level of consciousness: 0=alert; keenly responsive 1b. LOC questions: 0=Performs both tasks correctly 1c. LOC commands: 0=Performs both tasks correctly 2. Best Gaze: 0=normal 3. Visual: 0=No visual loss 4. Facial Palsy: 0=Normal symmetric movement 5a. Motor left arm: 0=No drift, limb holds 90 (or 45) degrees for full 10 seconds 5b. Motor right arm: 0=No drift, limb holds 90 (or 45) degrees for full 10 seconds 6a. motor left le=No drift, limb holds 90 (or 45) degrees for full 10 seconds 6b Motor right le=No drift, limb holds 90 (or 45) degrees for full 10 seconds 7. Limb Ataxia: 0=Absent 8. Sensory: 0=Normal; no sensory loss 9. Best Language: 0=No aphasia, normal 10. Dysarthria: 0=Normal 11. Extinction and Inattention: 0=No abnormality Total: 0 General Appearance: Alert, active, cooperative, and in no distress Head: Normocephalic, without obvious abnormality, atraumatic Eyes: conjunctivae/corneas clear. PERRL, EOM's intact. ENT: ENT exam normal Neck: supple, symmetrical, trachea midline Lungs: Non-labored Heart: regular rate and rhythm Extremities: extremities normal, atraumatic, no cyanosis or edema Skin: Skin color, texture, turgor normal. No rashes or lesions Neurologic: Grossly normal NIHSS0 MRS: 3 PHQ9: Depression Screening Risk Factor Management: Hypertension target range 130-140/70-80 Lipid range - LDL < 70 and checked every 6 months, fasting Diabetes - HgB A1C <7 Assessment/Plan: Patient Active Problem List Diagnosis Type 2 diabetes mellitus without complication, without long-term current use of insulin ([facility]) Gastroesophageal reflux disease without esophagitis Generalized osteoarthritis ROMEO (obstructive sleep apnea) Mixed hyperlipidemia Hypercalcemia Dizziness Double vision Elevated BP without diagnosis of hypertension Tyler Torres is an 79 year old male who is following up after his recent hospitalization for acute ischemic stroke. His stroke mechanism is suspected to be due to either embolic v small vessel disease. He was discharge home with an event monitor but has declined it. On today's visit the reason for the event monitor was explained to the patient and he is agreeable. For the asymptomatic right ICA stenosis, we will refer him to vascular surgeon for surveillance and possible intervention when indicated. A new event monitor was ordered for mail delivery. He will stop his Plavix and continue Aspirin 81 mg monotherapy. Continue to monitor his BP to maintain normotensive <130/80, LDL , 70 and HgA1C < 7%. All of their questions were answered to their satisfaction. Follow up with me in 6 months. In addition I did review the signs/ symptoms of stroke including BE FAST (B) balance issues, (E) acute eye/ vision changes, (F) facial droop, (A) Arm/ leg weakness, (S) speech disturbance and (T) time to call 911 if these symptoms occur. This note was completed using a voice trophy assembler system. Every effort was made to ensure accuracy; however, inadvertent computerized trophy assembler errors may be present Attending Attestation: I saw the patient. I participated and was physically present during the critical/ryan portions of the service. I was directly involved in the management and treatment plan of the patient. I reviewed the resident's note. documented in this encounter [facility] 04-25-2024 Instructions Lyubov Butt DO - 04/25/2024 9:30 AM EDT Stop taking Plavix and continue to take Aspirin 81 mg daily for life unless you have bleeding complications or other contraindication Will refer you to Vascular surgeon for further recommendation and surveillance of the right internal carotid artery that is stenosed. Will order another event monitor to be mailed to your house to monitor your heart rhythm to rule out irregular heart rhythm as the possible cause of your stroke. Follow up in 6 months or sooner if needed. documented in this encounter [facility] 04-22-2024 Miscellaneous Notes Tyler stopped in, he is wondering if he needs to stay on the medicines that you started in the hospital for him? If so, he made it sound like it needed to be called in. Also, does he need to go to his vascular appt on in [place]? Please advise Yes, stay on Plavix, lisinopril, Crestor. Scripts sent to [facility]. Yes, keep vascular follow up. Left voice mail stating what Dr Richards said and told him if he had any questions, please call the office documented in this encounter [facility] 04-22-2024 Telephone encounter Note Tyler stopped in, he is wondering if he needs to stay on the medicines that you started in the hospital for him? If so, he made it sound like it needed to be called in. Also, does he need to go to his vascular appt on in [place]? Please advise [facility] 04-22-2024 Telephone encounter Note Yes, stay on Plavix, lisinopril, Crestor. Scripts sent to [facility]. Yes, keep vascular follow up. [facility] 04-22-2024 Telephone encounter Note Left voice mail stating what Dr Richards said and told him if he had any questions, please call the office [facility] 04-18-2024 Miscellaneous Notes Refill request documented in this encounter [facility] 04-18-2024 Telephone encounter Note Refill request [facility] 04-17-2024 Miscellaneous Notes Refill request documented in this encounter [facility] 04-17-2024 Telephone encounter Note Refill request [facility] 04-17-2024 Miscellaneous Notes Refill request documented in this encounter [facility] 04-17-2024 Telephone encounter Note Refill request [facility] 04-01-2024 Miscellaneous Notes Event monitor is pending shipment due to patient's address being [place] and it cannot be shipped to a PO box. Can we call patient and ask for a direct address for monitor to be mailed to. Called pt to inform what was noted below. Pt was unavailable; left a voicemail. Please try to call patient again to ask for a direct address for monitor to be mailed. Called patient. He states at this time he would like to wait until he sees the fellow on 04/25. He wants to hear their opinion on completing the device and why it is necessary. Addictions Counselor Assistant tried to explain the reasoning, but he would like to hear it from a doctor. However, if he opts into receiving the device, the address is [address] [place] [address]. documented in this encounter [facility] 04-01-2024 Telephone encounter Note Event monitor is pending shipment due to patient's address being [place] and it cannot be shipped to a PO box. Can we call patient and ask for a direct address for monitor to be mailed to. [facility] 04-01-2024 Telephone encounter Note Called pt to inform what was noted below. Pt was unavailable; left a voicemail. [facility] 04-01-2024 Telephone encounter Note Please try to call patient again to ask for a direct address for monitor to be mailed. [facility] 04-01-2024 Telephone encounter Note Called patient. He states at this time he would like to wait until he sees the fellow on 04/25. He wants to hear their opinion on completing the device and why it is necessary. Addictions Counselor Assistant tried to explain the reasoning, but he would like to hear it from a doctor. However, if he opts into receiving the device, the address is [address] [place] [address]. [facility] 03-26-2024 Miscellaneous Notes Refill request documented in this encounter [facility] 03-26-2024 Telephone encounter Note Refill request [facility] 03-26-2024 Miscellaneous Notes ----- Message from YANI Lowery PA-C sent at 03/25/2024 5:23 PM EDT ----- Regarding: [place] follow up Multifocal infarct, no residual deficits. Suspected cardioembolic. Echo pending read but if comes back this evening they are planning on discharging. We recommended 30 day monitor if echo didn't finding anything else significant. F/u in stroke clinic in 4-6 weeks with Fausto/Sindhu/Stroke fellow. Patient is [place] so tele was a little hard for him. Called patient and call couldn't be completed Called spouse and left Vm Patient returned call, please call patient back to schedule. Patient is requesting to be seen in [place] if possible. Best Contact: Called Patient back and scheduled appt with [place] on 04/25/24. [place] location is booked out until August. 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 Echo pending read but if comes back this evening they are planning on discharging. We recommended 30 day monitor if echo didn't finding anything else significant. F/u in stroke clinic in 4-6 weeks with Fausto/Sindhu/Stroke fellow. Patient is [place] so tele was a little hard for him. [facility] 03-26-2024 Telephone encounter Note Called patient and call couldn't be completed Called spouse and left Vm [facility] 03-26-2024 Telephone encounter Note Patient returned call, please call patient back to schedule. Patient is requesting to be seen in [place] if possible. Best Contact: [facility] 03-26-2024 Telephone encounter Note Called Patient back and scheduled appt with [place] on 04/25/24. [place] location is booked out until August. [facility] 03-26-2024 Miscellaneous Notes Transition of Care (*required) *Additional Questions/Concerns Requiring PCP Follow-Up: -Patient does not have KEV[facility] appointment scheduled This documentation is being used for Transition of Care purposes: Yes Goal: Patient will demonstrate a safe transition from hospital to home Diagnosis on Discharge: Dizziness Discharge Specialty: Neurology *Name of Discharging Facility: [facility] Date of Facility Discharge: Admission 03/24/24 Discharge 03/25/24 Date of Interactive Contact and Name of Seamer Panty Hose: 03/26/24 [id number] Spoke to patient *Medication Review Completed: No START taking: clopidogreL (PLAVIX) lisinopriL (PRINIVIL,ZESTRIL) rosuvastatin (CRESTOR) Medication Reconciliation Questions/Concerns: -Reviewed discharge changes to medications -Declines medications review -Patient picked up medications and started taking as prescribed -Denies questions or concerns *Follow Up Appointments with Providers: Primary: Armando Richards MD Specialty: Stroke Clinic Specialty: Specialty: Review of Pending Lab/Diagnostic Tests and Plan for Completion: Event Monitor Assessment and Support of Treatment Regimen Adherence and Medication Management: -Patient reports vision is doing a lot better. Denies SOB and Chest Pain. Patient states he has balance issues. Patient uses walker to ambulate. Denies new or worsening symptoms. -Denies questions or concerns Education Provided by ACN to Support Self-Management, Independent Living and ADLs: -Reviewed discharge instructions -call the office for questions, concerns, new, worsening or recurring S/S -Call 911 or go to ED for urgent issues such as chest pain or sudden dyspnea -Verbalizes understanding of above Communication with Home Health Agencies and Other Services Utilized/Needed by the Patient: NA documented in this encounter [facility] 03-26-2024 Telephone encounter Note Transition of Care (*required) *Additional Questions/Concerns Requiring PCP Follow-Up: -Patient does not have [facility]EV[facility] appointment scheduled This documentation is being used for Transition of Care purposes: Yes Goal: Patient will demonstrate a safe transition from hospital to home Diagnosis on Discharge: Dizziness Discharge Specialty: Neurology *Name of Discharging Facility: [facility] Date of Facility Discharge: Admission 03/24/24 Discharge 03/25/24 Date of Interactive Contact and Name of Seamer Panty Hose: 03/26/24 [phone] Spoke to patient *Medication Review Completed: No START taking: clopidogreL (PLAVIX) lisinopriL (PRINIVIL,ZESTRIL) rosuvastatin (CRESTOR) Medication Reconciliation Questions/Concerns: -Reviewed discharge changes to medications -Declines medications review -Patient picked up medications and started taking as prescribed -Denies questions or concerns *Follow Up Appointments with Providers: Primary: Armando Richards MD Specialty: Stroke Clinic Specialty: Specialty: Review of Pending Lab/Diagnostic Tests and Plan for Completion: Event Monitor Assessment and Support of Treatment Regimen Adherence and Medication Management: -Patient reports vision is doing a lot better. Denies SOB and Chest Pain. Patient states he has balance issues. Patient uses walker to ambulate. Denies new or worsening symptoms. -Denies questions or concerns Education Provided by ACN to Support Self-Management, Independent Living and ADLs: -Reviewed discharge instructions -call the office for questions, concerns, new, worsening or recurring S/S -Call 911 or go to ED for urgent issues such as chest pain or sudden dyspnea -Verbalizes understanding of above Communication with Home Health Agencies and Other Services Utilized/Needed by the Patient: [facility] Nurse Note Received EPIC chat from Dr Richards to discharge patient. He reviewed results of echo and will follow up. [facility] 03-25-2024 Hospital course Narrative 79 years old man who was in generally good health other than musculoskeletal issues including previous back surgeries and bilateral degenerated shoulders. This limits his mobility and he gets around, only for short distances, with a walker. He has DM Type 2 and HbA1c has been in range. He presented to ER with stroke like symptoms involving his vision and that affected his balance. Initial CT brain nonacute and CTA brain negative. CTA carotids with possible 60% R ICA stenosis, vertebral arteries without abnormality. He was given ASA and placed into observation. His symptoms resolved. MR brain suggest tiny area of ischemia R occipital lobe and a possible area in the L thalamus. ECHO without abnormality. Carotid Doppler final pending, but initial does not suggest high grade stenosis. The occipital lobe is generally supplied by the posterior cerebral artery which arises from the vertebral system most times so it is not clear that the R carotid artery stenosis (<70%) would be the source. The thalamic lesion is only read a possible area of ischemia and would represent usual small vessel origin rather than from a shower of emboli. The thalamic lesion also doesn't correlate well with his symptoms (the R occipital lesion does). He will be discharge on Plavix, statin, and low dose lisinopril. He will have 30 day event monitor as recommended by tele neuro as an outpatient. Early follow up in my office. documented in this encounter [facility] 03-25-2024 Nurse Note Received EPIC chat from Dr Richards to discharge patient. He reviewed results of echo and will follow up. Received shift report from previous RN. In report, RN states that patient had fallen in ED. Patient confirms this to be true. Patient was asked how he fell. Patient states he was walking to bed from bathroom in ED and seemed to lose his balance. In any notes so far, this fall has not been commented on. documented in this encounter [facility] 03-25-2024 Progress note Formatting of t his note might be different from the original. This patient does qualify for the [facility] ACO waiver if it is needed, as long as they are not already a [facility] resident at a facility. 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 Occupational Therapy CANCEL - Refusal, Discharge from Therapy patient ed and visitor ed on role and goals of OT. Pt reports that he completed ADL this AM prior to arrival, denies current OT needs. OT to complete order at this time. Problem: Pain Goal: Patient goal is pain score less than 4, able to rest, and participant in treatment plan as appropriate Description: INTERVENTIONS: 1. Encourage patient or legal architectural representative to report early pain and ask for pain medicine when needed 2. Assess pain using appropriate pain scale and include the scale used when documenting 3. Administer analgesics based on type and severity of pain and evaluate response within appropriate time frame 4. Implement non-pharmacological measures as appropriate and evaluate response 5. Consider cultural and social influences on pain and pain management 6. Notify LIP if interventions ineffective or patient reports new pain 7. Monitor vital signs including pulse ox, end-tidal CO2 based on pain intervention 8. Reassess pain per policy 9. Teach patient or legal architectural representative interventions for comforting Outcome: Progressing Note: Evaluation of progress towards goal: Patient agrees to notify the nurse with any sudden change/increase in pain. Problem: Safety Goal: Patient will be injury free during hospitalization Description: INTERVENTIONS: 1. Assess patient's risk for falls and implement fall prevention plan of care per policy 2. Provide and maintain a safe environment 3. Proper use of double Identifiers 4. Medication administration using the 5 rights 5. Hand hygiene 6. Specimens are labeled at the bedside 7. Instruct patient/ patient architectural representative about use of safety devices 8. Include patient/ patient architectural representative in decisions related to safety Outcome: Progressing Note: Evaluation of progress towards goal: Patient will remain safe and free from injury. Problem: Moderate - High Risk Fall Score Description: [place] Fall Score of =/> 25 or indicated by [facility] Assessment Goal: Patient should be free from fall Description: Interventions: 1. [place] to environment 2. Hourly rounds addressing the 4 P's (Pain, Positioning, Possessions, Potty) 3. Clear area of hazards (spills, clutter, electrical cords, unnecessary equipment) 4. Place equipment (bed & TV controls, call light, phone, urinal) within reach 5. Encourage patient to wear glasses and hearing aides as appropriate 6. Maintain bed in lowest position 7. Lock wheels on bed/wheelchair 8. Provide adequate lighting, including night light 9. Assess need for additional bedding, food/fluids, pain med's prior to sleep/routinely 10. Provide gripper slippers or personal non-skid footwear 11. Teach patient and patient architectural representative to maintain environment for safety and engage in all aspects of fall prevention program 12. Remind patient to call for help before getting out of bed 13. Initiate bed/chair/exit alarms supportive devices as appropriate, (chair wedge, no-skid floor mat, raised edge mattress, hip protectors) 14. Locate patient bed assignment for optimal visualization 15. Evaluate and identify Safe Patient Handling Equipment needs 16. Provide supervision when out of bed or chair 17. Utilize gait belt as needed to assist with ambulation 18. Place adaptive equipment (cane, walker) within reach 19. Request patient architectural representative bring adaptive equipment/mobility aids from home or obtain and provide as needed 20. Consult pharmacy regarding effects of med's affecting mobility, cognition, and alternatives 21. Obtain physician order for PT if risk factors associated with mobility are present 22. Obtain physician order for OT as appropriate 23. Utilize diversional activities 24. Educate patient and patient architectural representative how to maintain a safe environment during visitation times (notify nurse prior to leaving bedside) 25. Consider appropriateness of medical or non-medical staff physician 26. Set up voiding schedule as appropriate (every 2 hours) Outcome: Progressing Note: Evaluation of progress towards goal: patient will remain free from falls. Physical Therapy Evaluation Discharge Recommendations PT Recommendations: Home Home Recommendations: No mobility/ADL assistance at home required Post Discharge Therapy Recommendations: Outpatient Physical Therapy (for vestibular rehab if further testing negative) Past Medical History: Diagnosis Date COPD (chronic obstructive pulmonary disease) ([facility]) ROMEO (obstructive sleep apnea) Past Surgical History: Procedure Laterality Date COLONOSCOPY ESOPHAGOGASTRODUODENOSCOPY 6 Clicks: Basic Mobility Turning from your back to your side while in a flat bed without using bed rails?: None Moving from lying on your back to sitting on side of flat bed without using bed rails?: None Moving to and from bed to a chair (including w/c)?: None Standing up from a chair using your arms (e.g. w/c or bedside chair)?: None To walk in hospital room?: A little Climbing 3-5 steps with a railing?: A little Scoring 6 Clicks: Basic Mobility Raw Score: 22 [facility] G Code Modifier: CJ Therapy Plan Need for skilled Physical Therapy to address deficits in functional mobility due to a status decline resulting from dizziness. 03/25/24 0722 Vestibular Other Patient negative for spurlings and sharp pursor. Cervical AROM slightly limited. Patient negative for BPPV at this time with no symptoms or nystagmus. PT Treatment/Interventions: Functional transfer training, Endurance training, LE strengthening/ROM, Balance, Stair training, Bed mobility, Gait training, Functional activities, Neuromuscular reeducation PT Frequency: 3-4days/week PT Duration: 10 days Patient Response to Treatment: Tolerated evaluation without adverse reaction Assessment Patient Assessment Therapy Problem List: Abnormal posture, Decreased balance, Decreased endurance, Decreased mobility Patient Response to Treatment: Tolerated evaluation without adverse reaction Mood/Affect: Appropriate for circumstances Rehab Prognosis: Good, With continued PT status post acute discharge Visit RN Communication: Yes Medical Record Reviewed: Yes PT Type of Visit: Evaluation Precautions Activity: Early mobility ok pass, Ok to evaluate per RN Equipment: rolling walker, nonskid socks Telemetry/Sign Language Translator: Yes Oxygen Used: room air Other: dizziness Pain Assessment Pain Assessment: 0-10 Pain Score: 5 Pain Type: Chronic pain Pain Location: Back Pain Intervention(s): Repositioned Response to Interventions: Pain improved Home Living Type of Home: House Home Layout: One level Stairs to Enter: 1 Home Equipment: Rolling walker Other : ramp to enter his own house, 1 step to enter HeTexted house, states he mostly stays at [facility]ed [facility] Prior Function Lives With: Friends, Daughter (daughter is staying at this house and he has been staying with his lady friend ) Receives Help From: Family, Friend(s) Level of Mobility: Independent with ADLs and functional transfers or gait Homemaking Assistance: Independent Other: up until yesterday he was walking with a walker in the community or for longer distances. Hearing / Speech / Vision Hearing: Bilateral hearing aid, Hard of hearing/hearing concerns Speech: Within Functional Limits Current Vision: Wears glasses only for reading Cognition Orientation Level: Oriented to place, Oriented to situation, Oriented to person, Oriented to month, Oriented to age, Oriented to time Bed Mobility Supine to Sit: Stand by assist Sit to Supine: Stand by assist Transfers Sit to Stand: Contact guard assist, Standby assist (CGA initially then SBA) Stand to Sit: Standby assist Gait Base of Support: Within Functional Limits Pattern: Decreased regina Gait Assistance: Standby assist Assistive Device: Rolling walker Gait Distance: 30ft, 15ft Included Uneven Surface: Yes 2 Turns: Yes Balance Sitting Balance: Static: Good Sitting Balance: Dynamic: Good Standing Balance: Static: Good Standing Balance: Dynamic: Fair RLE Assessment: Within Functional Limits LLE Assessment: Within Functional Limits Activity Tolerance Endurance: Tolerates <30 minutes activity WITHOUT vital sign changes Plan Physical Therapy Care Plan Physical Therapy Care Plan (Active) Template: PT - Physical Therapy Problem: Gait Dates: Start: 03/25/24 Disciplines: PT Goal: Patient will perform gait with Stand By Assist Dates: Start: 03/25/24 Expected End: 04/03/24 Description: Pt to be able to ambulate 100ft with no AD and no loss of balance to be able to safely manage household distances at discharge. Disciplines: PT Problem: Stairs/Curb Dates: Start: 03/25/24 Disciplines: PT Goal: Patient will perform stairs/curb with Stand By Assist Dates: Start: 03/25/24 Expected End: 04/03/24 Description: Pt to ascend and descend 1 stairs with no handrails to be able to safely enter house at discharge. Disciplines: PT Problem: Standing Balance Dates: Start: 03/25/24 Disciplines: PT Goal: Improve balance to good Dates: Start: 03/25/24 Expected End: 04/03/24 Description: Static Dynamic Pt to have balance of good in order to decrease risk of falls at discharge. Disciplines: PT Physical Therapy Care Plan (Resolved) There are no resolved problems. Principal Problem: Dizziness Active Problems: Type 2 diabetes mellitus without complication, without long-term current use of insulin ([facility]) Double vision Elevated BP without diagnosis of hypertension Problem: Pain Goal: Patient goal is pain score less than 4, able to rest, and participant in treatment plan as appropriate Description: INTERVENTIONS: 1. Encourage patient or legal architectural representative to report early pain and ask for pain medicine when needed 2. Assess pain using appropriate pain scale and include the scale used when documenting 3. Administer analgesics based on type and severity of pain and evaluate response within appropriate time frame 4. Implement non-pharmacological measures as appropriate and evaluate response 5. Consider cultural and social influences on pain and pain management 6. Notify LIP if interventions ineffective or patient reports new pain 7. Monitor vital signs including pulse ox, end-tidal CO2 based on pain intervention 8. Reassess pain per policy 9. Teach patient or legal architectural representative interventions for comforting Outcome: Not Progressing Note: Evaluation of progress towards goal: patient stated headache was a 6-7 in the front Problem: Safety Goal: Patient will be injury free during hospitalization Description: INTERVENTIONS: 1. Assess patient's risk for falls and implement fall prevention plan of care per policy 2. Provide and maintain a safe environment 3. Proper use of double Identifiers 4. Medication administration using the 5 rights 5. Hand hygiene 6. Specimens are labeled at the bedside 7. Instruct patient/ patient architectural representative about use of safety devices 8. Include patient/ patient architectural representative in decisions related to safety Outcome: Not Progressing Note: Evaluation of progress towards goal: patient fell in ER while trying to ambulate Problem: Infection Goal: Absence of infection during hospitalization Description: Interventions: 1. Assess and monitor for signs and symptoms of infection 2. Monitor lab/diagnostic results 3. Monitor all insertion sites i.e., indwelling lines, tubes and drains 4. Monitor endotracheal (as able) and nasal secretions for changes in amount and color 5. Administer medications as ordered 6. Instruct and encourage patient and family to use good hand hygiene technique 7. Identify and instruct patient/patient architectural representative in use of appropriate isolation precautions for identified infection/symptoms 8. Provide and discuss with patient/patient architectural representative on educational MDRO sheet 9. Encourage and monitor nutritional status daily and consult supervisor matrix if indicated 10. Implement neutropenic guidelines as needed 11. Review exposure to history of communicable disease and recent travel history on admission 12. Encourage annual influenza vaccine 13. Encourage pneumonia vaccine Outcome: Progressing Note: Evaluation of progress towards goal: no infection noted Problem: Knowledge Deficit Goal: Patient/patient architectural representative demonstrates understanding of disease process, treatment plan, medications, and discharge instructions Description: INTERVENTIONS 1. Complete learning assessment and assess knowledge base 2. Provide teaching at level of understanding 3. Provide teaching via preferred learning method(s) Outcome: Progressing Note: Evaluation of progress towards goal: patient updated on POC Problem: Discharge Planning Goal: Discharge to post-acute care, other facility, or home with appropriate resources Description: Patient's goal is: INTERVENTIONS 1. Conduct assessment to determine patient/family and health care team treatment goals, and need for post-acute services based on payer coverage, community resources, and patient preferences, and barriers to discharge 2. Coordinate with Social work, Care Navigation, and Utilization Review to arrange appropriate level of services according to patient's needs based on patient preference and payer coverage in collaboration with the physician and health care team 3. Address psychosocial, clinical, and financial barriers to discharge as identified in assessment in conjunction with the patient/family and health care team 4. Consult appropriate ancillary services (i.e.. PT/OT/ST, etc) as needed 5. Communicate with and update the patient/family, physician, and health care team regarding progress on the discharge plan 6. Identify discharge learning needs (meds, wound care, etc). 7. Arrange for needed discharge transportation as appropriate Outcome: Progressing Note: Evaluation of progress towards goal: plans to d/c home Problem: Moderate - High Risk Fall Score Description: Carcamo Fall Score of =/> 25 or indicated by [facility] Assessment Goal: Patient should be free from fall Description: Interventions: 1. [place] to environment 2. Hourly rounds addressing the 4 P's (Pain, Positioning, Possessions, Potty) 3. Clear area of hazards (spills, clutter, electrical cords, unnecessary equipment) 4. Place equipment (bed & TV controls, call light, phone, urinal) within reach 5. Encourage patient to wear glasses and hearing aides as appropriate 6. Maintain bed in lowest position 7. Lock wheels on bed/wheelchair 8. Provide adequate lighting, including night light 9. Assess need for additional bedding, food/fluids, pain med's prior to sleep/routinely 10. Provide gripper slippers or personal non-skid footwear 11. Teach patient and patient architectural representative to maintain environment for safety and engage in all aspects of fall prevention program 12. Remind patient to call for help before getting out of bed 13. Initiate bed/chair/exit alarms supportive devices as appropriate, (chair wedge, no-skid floor mat, raised edge mattress, hip protectors) 14. Locate patient bed assignment for optimal visualization 15. Evaluate and identify Safe Patient Handling Equipment needs 16. Provide supervision when out of bed or chair 17. Utilize gait belt as needed to assist with ambulation 18. Place adaptive equipment (cane, walker) within reach 19. Request patient architectural representative bring adaptive equipment/mobility aids from home or obtain and provide as needed 20. Consult pharmacy regarding effects of med's affecting mobility, cognition, and alternatives 21. Obtain physician order for PT if risk factors associated with mobility are present 22. Obtain physician order for OT as appropriate 23. Utilize diversional activities 24. Educate patient and patient architectural representative how to maintain a safe environment during visitation times (notify nurse prior to leaving bedside) 25. Consider appropriateness of medical or non-medical staff physician 26. Set up voiding schedule as appropriate (every 2 hours) Outcome: Not Progressing Note: Evaluation of progress towards goal: patient fell in ER Problem: Potential for Compromised Skin Integrity Goal: Skin integrity is maintained or improved Description: Patient's goal is: INTERVENTIONS 1. Perform initial skin assessment on admission and as needed 2. Turn patient every 2 hours and PRN 3. Relieve pressure to bony prominences 4. Avoid shearing 5. Keep skin clean and dry 6. Alternate a full bath with partial baths for elderly 7. Apply lotion/moisturizer on skin 8. Monitor patient's hygiene practices 9. Float heels 10. Collaborate with interdisciplinary team and initiate plans and interventions as needed Outcome: Progressing Note: Evaluation of progress towards goal: no new skin breakdown Goal: Patient's nutritional intake is adequate Description: Patient's goal is: INTERVENTIONS 1. Assess and monitor food intake and supplements, patient food preferences, nausea, vomiting, labs, oral cavity (gums, teeth, tongue, mucosa), proper denture fit, and cultural beliefs 2. Monitor for signs of hypoglycemia and hyperglycemia 3. Collaborate with interdisciplinary team and initiate plan and interventions as ordered 4. Monitor patient's weight 5. Assist patient with meals/food selection 6. Assist patient with eating 7. Allow adequate time for meals 8. Provide pleasant environment during mealtime 9. Increase social contact during mealtimes 10. Plan activities to conserve energy 11. Encourage/perform oral hygiene as appropriate 12. Encourage patient to take dietary supplement as ordered 13. Collaborate with clinical supervisor matrix 14. Include patient/ patient's architectural representative in decisions related to nutrition Outcome: Progressing Note: Evaluation of progress towards goal: patient appetite is WNL Problem: Urinary Incontinence Goal: Perineal skin integrity is maintained or improved Description: INTERVENTIONS 1. Assess genitourinary system, perineal skin, labs (urinalysis), and history of incontinence to include past management, aggravating, and alleviating factors 2. Keep skin clean and dry 3. Apply skin protectant 4. Develop skin care regimen 5. Provide privacy when changing patients incontinence device to maintain their dignity 6. Consider placing an indwelling catheter 7. Collaborate with interdisciplinary team and initiate plans and interventions as needed Outcome: Progressing Note: Evaluation of progress towards goal: no new skin breakdown Problem: Safety Goal: Patient will be injury free during hospitalization Description: INTERVENTIONS: 1. Assess patient's risk for falls and implement fall prevention plan of care per policy 2. Provide and maintain a safe environment 3. Proper use of double Identifiers 4. Medication administration using the 5 rights 5. Hand hygiene 6. Specimens are labeled at the bedside 7. Instruct patient/ patient architectural representative about use of safety devices 8. Include patient/ patient architectural representative in decisions related to safety Outcome: Progressing Note: Evaluation of progress towards goal: safety maintained, bed alarm on documented in this encounter [facility] 03-25-2024 Progress note Formatting of t his note is different from the original. Occupational Therapy CANCEL - Refusal, Discharge from Therapy patient ed and visitor ed on role and goals of OT. Pt reports that he completed ADL this AM prior to arrival, denies current OT needs. OT to complete order at this time. [facility] Work Phone: 03-25-2024 Hospital Discharge instructions Crystal Blank RN - 03/25/2024 10:18 AM EDT .. Your Individual Risk Factors for Stroke include Sleep apnea, Diabetes Your medical record includes a diagnosis of Stroke from this admission or in the past. Review the following to reduce your risk of Stroke: Discharge Medications Taking your medications as prescribed is one of the most vital aspects of reducing your risk for stroke. It is important to know the names of your medications, how they work, how much to take, and when to take them. You should take your medications at the same time every day. Do not stop your prescribed medications or begin taking [id number] or herbal medications without first speaking with your physician. Risk Factors for Stroke High blood pressure - High blood pressure is the most important risk factor for stroke. People who have high blood pressure have more than half the lifetime risk of having stroke compared to those who consistently have an optimal blood pressure reading of 120/80. Tobacco Use - Tobacco use doubles the risk for another stroke. Stop smoking if you smoke High cholesterol - Cholesterol or plaque build-up in the arteries can block normal blood flow to the brain and cause a stroke and increase risk of heart disease. Maintain healthy cholesterol levels Diabetes - People with diabetes are up to 4 times as likely to have a stroke as someone who does not have the disease. Atrial fibrillation - Atrial fibrillation increases your stroke risk 5 times, so it's important to work with a doctor to control it. Eat a healthy diet -- maintaining a diet low in calories, saturated and trans fats and cholesterol helps manage both obesity and healthy cholesterol levels in the blood, which also reduces risk for stroke. Physical activity - Physical activity reduces stroke risk. A recent study showed that people who exercise five or more times per week are less likely to have another stroke. Increase your physical activity. Alcohol use - Some studies say that drinking more than 2 drinks per day may increase stroke risk by 50 percent. Other studies have indicated that one alcoholic beverage a day may lower a person's risk for stroke, provided that there is no other medical reason for avoiding alcohol. Talk with a doctor about alcohol use and how it can best be controlled to prevent another stroke. Warning Signs of Stroke Use BE FAST to remember warning signs of stroke: B- Balance or sudden onset dizziness E- Eyes- Loss of vision, Double vision, or blurry vision Face - Ask the person to smile. Does one side of the face droop? Arms - Ask the person to raise both arms. Does one arm drift downward? Speech - Ask the person to repeat a simple phrase. Is their speech slurred or strange? Time - If you observe any of these signs, call 9-1-1 immediately. Symptoms of Stroke Sudden numbness or weakness of face, arm or leg - especially on one side of the body. Sudden confusion, trouble speaking or understanding. Sudden trouble seeing in one or both eyes. Sudden trouble walking, dizziness, loss of balance or coordination. Sudden severe headache with no known cause. Suddenly fainting, passing-out, or a seizure The following attachments cannot be sent through Care Everywhere.Stroke Discharge Instructions (Sinhala)documented in this encounter [facility] 03-25-2024 Plan of care note Problem: Pain Goal: Patient goal is pain score less than 4, able to rest, and participant in treatment plan as appropriate Description: INTERVENTIONS: 1. Encourage patient or legal architectural representative to report early pain and ask for pain medicine when needed 2. Assess pain using appropriate pain scale and include the scale used when documenting 3. Administer analgesics based on type and severity of pain and evaluate response within appropriate time frame 4. Implement non-pharmacological measures as appropriate and evaluate response 5. Consider cultural and social influences on pain and pain management 6. Notify LIP if interventions ineffective or patient reports new pain 7. Monitor vital signs including pulse ox, end-tidal CO2 based on pain intervention 8. Reassess pain per policy 9. Teach patient or legal architectural representative interventions for comforting Outcome: Progressing Note: Evaluation of progress towards goal: Patient agrees to notify the nurse with any sudden change/increase in pain. Problem: Safety Goal: Patient will be injury free during hospitalization Description: INTERVENTIONS: 1. Assess patient's risk for falls and implement fall prevention plan of care per policy 2. Provide and maintain a safe environment 3. Proper use of double Identifiers 4. Medication administration using the 5 rights 5. Hand hygiene 6. Specimens are labeled at the bedside 7. Instruct patient/ patient architectural representative about use of safety devices 8. Include patient/ patient architectural representative in decisions related to safety Outcome: Progressing Note: Evaluation of progress towards goal: Patient will remain safe and free from injury. Problem: Moderate - High Risk Fall Score Description: Carcamo Fall Score of =/> 25 or indicated by [facility] Assessment Goal: Patient should be free from fall Description: Interventions: 1. [place] to environment 2. Hourly rounds addressing the 4 P's (Pain, Positioning, Possessions, Potty) 3. Clear area of hazards (spills, clutter, electrical cords, unnecessary equipment) 4. Place equipment (bed & TV controls, call light, phone, urinal) within reach 5. Encourage patient to wear glasses and hearing aides as appropriate 6. Maintain bed in lowest position 7. Lock wheels on bed/wheelchair 8. Provide adequate lighting, including night light 9. Assess need for additional bedding, food/fluids, pain med's prior to sleep/routinely 10. Provide gripper slippers or personal non-skid footwear 11. Teach patient and patient architectural representative to maintain environment for safety and engage in all aspects of fall prevention program 12. Remind patient to call for help before getting out of bed 13. Initiate bed/chair/exit alarms supportive devices as appropriate, (chair wedge, no-skid floor mat, raised edge mattress, hip protectors) 14. Locate patient bed assignment for optimal visualization 15. Evaluate and identify Safe Patient Handling Equipment needs 16. Provide supervision when out of bed or chair 17. Utilize gait belt as needed to assist with ambulation 18. Place adaptive equipment (cane, walker) within reach 19. Request patient architectural representative bring adaptive equipment/mobility aids from home or obtain and provide as needed 20. Consult pharmacy regarding effects of med's affecting mobility, cognition, and alternatives 21. Obtain physician order for PT if risk factors associated with mobility are present 22. Obtain physician order for OT as appropriate 23. Utilize diversional activities 24. Educate patient and patient architectural representative how to maintain a safe environment during visitation times (notify nurse prior to leaving bedside) 25. Consider appropriateness of medical or non-medical staff physician 26. Set up voiding schedule as appropriate (every 2 hours) Outcome: Progressing Note: Evaluation of progress towards goal: patient will remain free from falls. [facility] 03-25-2024 Progress note Formatting of t his note is different from the original. Physical Therapy Evaluation Discharge Recommendations PT Recommendations: Home Home Recommendations: No mobility/ADL assistance at home required Post Discharge Therapy Recommendations: Outpatient Physical Therapy (for vestibular rehab if further testing negative) Past Medical History: Diagnosis Date COPD (chronic obstructive pulmonary disease) ([facility]) ROMEO (obstructive sleep apnea) Past Surgical History: Procedure Laterality Date COLONOSCOPY ESOPHAGOGASTRODUODENOSCOPY 6 Clicks: Basic Mobility Turning from your back to your side while in a flat bed without using bed rails?: None Moving from lying on your back to sitting on side of flat bed without using bed rails?: None Moving to and from bed to a chair (including w/c)?: None Standing up from a chair using your arms (e.g. w/c or bedside chair)?: None To walk in hospital room?: A little Climbing 3-5 steps with a railing?: A little Scoring 6 Clicks: Basic Mobility Raw Score: 22 [facility] G Code Modifier: CJ Therapy Plan Need for skilled Physical Therapy to address deficits in functional mobility due to a status decline resulting from dizziness. 03/25/24 0722 Vestibular Other Patient negative for spurlings and sharp pursor. Cervical AROM slightly limited. Patient negative for BPPV at this time with no symptoms or nystagmus. PT Treatment/Interventions: Functional transfer training, Endurance training, LE strengthening/ROM, Balance, Stair training, Bed mobility, Gait training, Functional activities, Neuromuscular reeducation PT Frequency: 3-4days/week PT Duration: 10 days Patient Response to Treatment: Tolerated evaluation without adverse reaction Assessment Patient Assessment Therapy Problem List: Abnormal posture, Decreased balance, Decreased endurance, Decreased mobility Patient Response to Treatment: Tolerated evaluation without adverse reaction Mood/Affect: Appropriate for circumstances Rehab Prognosis: Good, With continued PT status post acute discharge Visit RN Communication: Yes Medical Record Reviewed: Yes PT Type of Visit: Evaluation Precautions Activity: Early mobility ok pass, Ok to evaluate per RN Equipment: rolling walker, nonskid socks Telemetry/Sign Language Translator: Yes Oxygen Used: room air Other: dizziness Pain Assessment Pain Assessment: 0-10 Pain Score: 5 Pain Type: Chronic pain Pain Location: Back Pain Intervention(s): Repositioned Response to Interventions: Pain improved Home Living Type of Home: House Home Layout: One level Stairs to Enter: 1 Home Equipment: Rolling walker Other : ramp to enter his own house, 1 step to enter HeTexted spanish fork, [facility] Prior Function Lives With: Friends, Daughter (daughter is staying at this house and he has been staying with his lady friend ) Receives Help From: Family, Friend(s) Level of Mobility: Independent with ADLs and functional transfers or gait Homemaking Assistance: Independent Other: up until yesterday he was walking with a walker in the community or for longer distances. Hearing / Speech / Vision Hearing: Bilateral hearing aid, Hard of hearing/hearing concerns Speech: Within Functional Limits Current Vision: Wears glasses only for reading Cognition Orientation Level: Oriented to place, Oriented to situation, Oriented to person, Oriented to month, Oriented to age, Oriented to time Bed Mobility Supine to Sit: Stand by assist Sit to Supine: Stand by assist Transfers Sit to Stand: Contact guard assist, Standby assist (CGA initially then SBA) Stand to Sit: Standby assist Gait Base of Support: Within Functional Limits Pattern: Decreased regina Gait Assistance: Standby assist Assistive Device: Rolling walker Gait Distance: 30ft, 15ft Included Uneven Surface: Yes 2 Turns: Yes Balance Sitting Balance: Static: Good Sitting Balance: Dynamic: Good Standing Balance: Static: Good Standing Balance: Dynamic: Fair RLE Assessment: Within Functional Limits LLE Assessment: Within Functional Limits Activity Tolerance Endurance: Tolerates <30 minutes activity WITHOUT vital sign changes Plan Physical Therapy Care Plan Physical Therapy Care Plan (Active) Template: PT - Physical Therapy Problem: Gait Dates: Start: 03/25/24 Disciplines: PT Goal: Patient will perform gait with Stand By Assist Dates: Start: 03/25/24 Expected End: 04/03/24 Description: Pt to be able to ambulate 100ft with no AD and no loss of balance to be able to safely manage household distances at discharge. Disciplines: PT Problem: Stairs/Curb Dates: Start: 03/25/24 Disciplines: PT Goal: Patient will perform stairs/curb with Stand By Assist Dates: Start: 03/25/24 Expected End: 04/03/24 Description: Pt to ascend and descend 1 stairs with no handrails to be able to safely enter house at discharge. Disciplines: PT Problem: Standing Balance Dates: Start: 03/25/24 Disciplines: PT Goal: Improve balance to good Dates: Start: 03/25/24 Expected End: 04/03/24 Description: Static Dynamic Pt to have balance of good in order to decrease risk of falls at discharge. Disciplines: PT Physical Therapy Care Plan (Resolved) There are no resolved problems. Principal Problem: Dizziness Active Problems: Type 2 diabetes mellitus without complication, without long-term current use of insulin ([facility]) Double vision Elevated BP without diagnosis of hypertension [facility] 03-25-2024 Nurse Note Received shift report from previous RN. In report, RN states that patient had fallen in ED. Patient confirms this to be true. Patient was asked how he fell. Patient states he was walking to bed from bathroom in ED and seemed to lose his balance. In any notes so far, this fall has not been commented on. [facility] 03-25-2024 Plan of care note Problem: Pain Goal: Patient goal is pain score less than 4, able to rest, and participant in treatment plan as appropriate Description: INTERVENTIONS: 1. Encourage patient or legal architectural representative to report early pain and ask for pain medicine when needed 2. Assess pain using appropriate pain scale and include the scale used when documenting 3. Administer analgesics based on type and severity of pain and evaluate response within appropriate time frame 4. Implement non-pharmacological measures as appropriate and evaluate response 5. Consider cultural and social influences on pain and pain management 6. Notify LIP if interventions ineffective or patient reports new pain 7. Monitor vital signs including pulse ox, end-tidal CO2 based on pain intervention 8. Reassess pain per policy 9. Teach patient or legal architectural representative interventions for comforting Outcome: Not Progressing Note: Evaluation of progress towards goal: patient stated headache was a 6-7 in the front Problem: Safety Goal: Patient will be injury free during hospitalization Description: INTERVENTIONS: 1. Assess patient's risk for falls and implement fall prevention plan of care per policy 2. Provide and maintain a safe environment 3. Proper use of double Identifiers 4. Medication administration using the 5 rights 5. Hand hygiene 6. Specimens are labeled at the bedside 7. Instruct patient/ patient architectural representative about use of safety devices 8. Include patient/ patient architectural representative in decisions related to safety Outcome: Not Progressing Note: Evaluation of progress towards goal: patient fell in ER while trying to ambulate Problem: Infection Goal: Absence of infection during hospitalization Description: Interventions: 1. Assess and monitor for signs and symptoms of infection 2. Monitor lab/diagnostic results 3. Monitor all insertion sites i.e., indwelling lines, tubes and drains 4. Monitor endotracheal (as able) and nasal secretions for changes in amount and color 5. Administer medications as ordered 6. Instruct and encourage patient and family to use good hand hygiene technique 7. Identify and instruct patient/patient architectural representative in use of appropriate isolation precautions for identified infection/symptoms 8. Provide and discuss with patient/patient architectural representative on educational MDRO sheet 9. Encourage and monitor nutritional status daily and consult supervisor matrix if indicated 10. Implement neutropenic guidelines as needed 11. Review exposure to history of communicable disease and recent travel history on admission 12. Encourage annual influenza vaccine 13. Encourage pneumonia vaccine Outcome: Progressing Note: Evaluation of progress towards goal: no infection noted Problem: Knowledge Deficit Goal: Patient/patient architectural representative demonstrates understanding of disease process, treatment plan, medications, and discharge instructions Description: INTERVENTIONS 1. Complete learning assessment and assess knowledge base 2. Provide teaching at level of understanding 3. Provide teaching via preferred learning method(s) Outcome: Progressing Note: Evaluation of progress towards goal: patient updated on POC Problem: Discharge Planning Goal: Discharge to post-acute care, other facility, or home with appropriate resources Description: Patient's goal is: INTERVENTIONS 1. Conduct assessment to determine patient/family and health care team treatment goals, and need for post-acute services based on payer coverage, community resources, and patient preferences, and barriers to discharge 2. Coordinate with Social work, Care Navigation, and Utilization Review to arrange appropriate level of services according to patient's needs based on patient preference and payer coverage in collaboration with the physician and health care team 3. Address psychosocial, clinical, and financial barriers to discharge as identified in assessment in conjunction with the patient/family and health care team 4. Consult appropriate ancillary services (i.e.. PT/OT/ST, etc) as needed 5. Communicate with and update the patient/family, physician, and health care team regarding progress on the discharge plan 6. Identify discharge learning needs (meds, wound care, etc). 7. Arrange for needed discharge transportation as appropriate Outcome: Progressing Note: Evaluation of progress towards goal: plans to d/c home Problem: Moderate - High Risk Fall Score Description: [place] Fall Score of =/> 25 or indicated by [facility] Assessment Goal: Patient should be free from fall Description: Interventions: 1. [place] to environment 2. Hourly rounds addressing the 4 P's (Pain, Positioning, Possessions, Potty) 3. Clear area of hazards (spills, clutter, electrical cords, unnecessary equipment) 4. Place equipment (bed & TV controls, call light, phone, urinal) within reach 5. Encourage patient to wear glasses and hearing aides as appropriate 6. Maintain bed in lowest position 7. Lock wheels on bed/wheelchair 8. Provide adequate lighting, including night light 9. Assess need for additional bedding, food/fluids, pain med's prior to sleep/routinely 10. Provide gripper slippers or personal non-skid footwear 11. Teach patient and patient architectural representative to maintain environment for safety and engage in all aspects of fall prevention program 12. Remind patient to call for help before getting out of bed 13. Initiate bed/chair/exit alarms supportive devices as appropriate, (chair wedge, no-skid floor mat, raised edge mattress, hip protectors) 14. Locate patient bed assignment for optimal visualization 15. Evaluate and identify Safe Patient Handling Equipment needs 16. Provide supervision when out of bed or chair 17. Utilize gait belt as needed to assist with ambulation 18. Place adaptive equipment (cane, walker) within reach 19. Request patient architectural representative bring adaptive equipment/mobility aids from home or obtain and provide as needed 20. Consult pharmacy regarding effects of med's affecting mobility, cognition, and alternatives 21. Obtain physician order for PT if risk factors associated with mobility are present 22. Obtain physician order for OT as appropriate 23. Utilize diversional activities 24. Educate patient and patient architectural representative how to maintain a safe environment during visitation times (notify nurse prior to leaving bedside) 25. Consider appropriateness of medical or non-medical staff physician 26. Set up voiding schedule as appropriate (every 2 hours) Outcome: Not Progressing Note: Evaluation of progress towards goal: patient fell in ER Problem: Potential for Compromised Skin Integrity Goal: Skin integrity is maintained or improved Description: Patient's goal is: INTERVENTIONS 1. Perform initial skin assessment on admission and as needed 2. Turn patient every 2 hours and PRN 3. Relieve pressure to bony prominences 4. Avoid shearing 5. Keep skin clean and dry 6. Alternate a full bath with partial baths for elderly 7. Apply lotion/moisturizer on skin 8. Monitor patient's hygiene practices 9. Float heels 10. Collaborate with interdisciplinary team and initiate plans and interventions as needed Outcome: Progressing Note: Evaluation of progress towards goal: no new skin breakdown Goal: Patient's nutritional intake is adequate Description: Patient's goal is: INTERVENTIONS 1. Assess and monitor food intake and supplements, patient food preferences, nausea, vomiting, labs, oral cavity (gums, teeth, tongue, mucosa), proper denture fit, and cultural beliefs 2. Monitor for signs of hypoglycemia and hyperglycemia 3. Collaborate with interdisciplinary team and initiate plan and interventions as ordered 4. Monitor patient's weight 5. Assist patient with meals/food selection 6. Assist patient with eating 7. Allow adequate time for meals 8. Provide pleasant environment during mealtime 9. Increase social contact during mealtimes 10. Plan activities to conserve energy 11. Encourage/perform oral hygiene as appropriate 12. Encourage patient to take dietary supplement as ordered 13. Collaborate with clinical supervisor matrix 14. Include patient/ patient's architectural representative in decisions related to nutrition Outcome: Progressing Note: Evaluation of progress towards goal: patient appetite is WNL Problem: Urinary Incontinence Goal: Perineal skin integrity is maintained or improved Description: INTERVENTIONS 1. Assess genitourinary system, perineal skin, labs (urinalysis), and history of incontinence to include past management, aggravating, and alleviating factors 2. Keep skin clean and dry 3. Apply skin protectant 4. Develop skin care regimen 5. Provide privacy when changing patients incontinence device to maintain their dignity 6. Consider placing an indwelling catheter 7. Collaborate with interdisciplinary team and initiate plans and interventions as needed Outcome: Progressing Note: Evaluation of progress towards goal: no new skin breakdown [facility] 03-24-2024 History and physical note Images from the original note were not included. GENERAL HISTORY AND PHYSICAL: 03/24/24 PROBLEM: Principal Problem: Dizziness Active Problems: Type 2 diabetes mellitus without complication, without long-term current use of insulin ([facility]) Double vision Elevated BP without diagnosis of hypertension HISTORY OF PRESENT ILLNESS: Tyler Torres is an 79 y.o. White or male. Was fishing with his grandchildren at the [employer] earlier today. Notice difficulty with his vision, in that he had trouble seeing or focusing on the hooks in order to place bait, tie lures, etc. This persisted for several hours, then he subsequently developed dizziness , which he describes as an off balance sensation. No feeling of going to black out or pass out. No spinning or twirling. He just felt unsteady, and noticed that if he looked to the right, he was seeing double (side to side), and if he looked to the left, he also saw double (vertically). No scotoma or visual field cut. He presented to the ED for evaluation. Initial evaluation shows a normal non contrasted CT except for hypodensity in the caudate nucleus, and CT angiogram of neck shows 60% stenosis with hard and soft plaque on the right. Patient has a history of low back surgery 8 months ago to correct a previous failed low back surgery. He has had a prolonged recover, and still must use a walker or cane to ambulate. He can only walk about 1/2 mile 3 times a week because of weakness and balance problems associated with the surgery. In addition, he has been noted to have severe rotator cuff problems bilateral, and has been recommended to have surgery for repair of this problem. PAST MEDICAL HISTORY: Past Medical History: Diagnosis Date COPD (chronic obstructive pulmonary disease) ([facility]) ROMEO (obstructive sleep apnea) PAST SURGICAL HISTORY: Past Surgical History: Procedure Laterality Date COLONOSCOPY ESOPHAGOGASTRODUODENOSCOPY Travel History Travel Screening Question Response Have you been in contact with someone who was sick? No / Unsure Do you have any of the following new or worsening symptoms? None of these Have you traveled internationally or domestically in the last month? No Travel History Travel since 02/22/24 No documented travel since 02/22/24 SOCIAL HISTORY: Social History Socioeconomic History Marital status: Single Spouse name: Not on file Number of children: Not on file Years of education: Not on file Highest education level: Not on file Occupational History Not on file Tobacco Use Smoking status: Former Smokeless tobacco: Never Substance and Sexual Activity Alcohol use: Yes Drug use: No Sexual activity: Not on file Other Topics Concern Not on file Social History Narrative Not on file Social Determinants of Health Financial Resource Strain: Low Risk (08/24/2023) Received from [facility], [facility] Overall Financial Resource Strain (CARDIA) Difficulty of Paying Living Expenses: Not hard at all Food Insecurity: No Food Insecurity (03/24/2024) Hunger Screening Food Insecurity - Worry: Never True Food Insecurity - Inability: Never True Transportation Needs: No Transportation Needs (03/24/2024) PRAPARE - Transportation Lack of Transportation (Medical): No Lack of Transportation (Non-Medical): No Physical Activity: Not on file Stress: Not on file Social Connections: Not on file Interpersonal Safety: Not At Risk (03/24/2024) Humiliation, Afraid, Rape, and Kick questionnaire Fear of Current or Ex-Partner: No Emotionally Abused: No Physically Abused: No Sexually Abused: No Housing Instability: Low Risk (03/24/2024) Housing Instability Housing Instability: No ALLERGIES: Allergies Allergen Reactions Simvastatin HOME MEDICATIONS: Medications Prior to Admission Medication Sig Dispense Refill Last Dose celecoxib (CeleBREX) 100 mg capsule Take 1 capsule (100 mg total) by mouth in the morning and 1 capsule (100 mg total) before bedtime. clonazePAM (KlonoPIN) 0.5 mg tablet Take 1 tablet (0.5 mg total) by mouth 2 (two) times a day as needed for anxiety (restlessness, insomnia). 10 tablet 0 docusate sodium (COLACE) 100 mg capsule Take 1 capsule (100 mg total) by mouth in the morning and 1 capsule (100 mg total) before bedtime. 60 capsule 2 DULoxetine (CYMBALTA) 30 mg capsule TAKE 1 CAPSULE (30 MG TOTAL) BY MOUTH IN THE MORNING 90 capsule 2 esomeprazole (NexIUM) 40 mg capsule Take 1 capsule (40 mg total) by mouth in the morning and 1 capsule (40 mg total) before bedtime. melatonin (CIRCADIN) capsule Take 1 capsule (5 mg total) by mouth nightly. metFORMIN (GLUCOPHAGE) 500 mg tablet TAKE 1 TABLET BY MOUTH IN THE MORNING AND 1 TABLET AT NOON AND 1 TABLET BEFORE BEDTIME 270 tablet 2 oxyCODONE (ROXICODONE) 5 mg immediate release tablet Take 1 tablet (5 mg total) by mouth in the morning and 1 tablet (5 mg total) before bedtime. Max Daily Amount: 10 mg. 60 tablet 0 tamsulosin (FLOMAX) 0.4 mg capsule Take 1 capsule (0.4 mg total) by mouth once daily at bedtime. 30 capsule 0 IMMUNIZATIONS: Immunization History Administered Date(s) Administered COVID-19, mRNA, LNP-S, PF, 100mcg/0.5mL Dose 09/11/2020, 10/09/2020 COVID-19, mRNA, LNP-S, PF, 30mcg/0.3mL Dose 06/12/2021 Covid-19, Mrna, Lnp-s, Bivalent, Pf, 30mcg/0.3 ml 06/09/2022 Covid-19, Mrna, Lnp-s, Pf, 30 Mcg/0.3 Ml Dose, Betzy-sucrose 12/31/2021 Covid-19, Mrna, Lnp-s, Pf,betzy-sucrose,30 Mcg/0.3ml Fall23 05/15/2023 Influenza (IM) Preservative Free 05/22/2015, 05/29/2017 Influenza High Dose Preservative Free IM 05/09/2016, 06/02/2018 Influenza Whole 05/26/2010, 05/08/2013 Influenza, High-dose, Quadrivalent 04/24/2020, 05/01/2021 Influenza, Trivalent, Adjuvanted 04/09/2019 Pneumococcal Conjugate 13-Valent 04/09/2019 RSV, recombinant, protein subunit RSVpreF, adjuvant reconstituted, 0.5 mL, PF 11/11/2023 Tdap 11/30/2018 Zoster Vaccine Recombinant 11/30/2018, 04/11/2019 REVIEW OF SYSTEMS: Review of Systems Constitutional: Positive for activity change. Negative for fever, chills, diaphoresis, appetite change, fatigue and unexpected weight change. HENT: Positive for tinnitus and vision change. Negative for congestion, hearing loss, sore throat and trouble swallowing. Eyes: Positive for visual disturbance. Negative for pain, discharge and itching. Respiratory: Negative. Cardiovascular: Negative. Gastrointestinal: Negative. Endocrine: Negative. Genitourinary: Positive for frequency and difficulty urinating. Musculoskeletal: Positive for back pain and gait problem. Skin: Negative. Neurological: Positive for dizziness and weakness. Psychiatric/Behavioral: The patient is nervous/anxious. No LMP for male patient. BP (!) 226/128 Comment: md present Pulse 87 Resp 25 SpO2 94% O2 Device: None (Room air) PHYSICAL EXAM: Physical Exam Constitutional He is oriented to person, place, and time. He appears well-nourished. No distress. Vitals reviewed. HENT Head Normocephalic. Ears Right Ear: External ear normal. Left Ear: External ear normal. Mouth/Throat Throat: Oropharynx: oropharynx clear and moist AC with minimal cerumen bilateral. No obstruction. TMs normal bilateral Eyes: Conjunctivae are normal. Pupils are equal, round, and reactive to light. Conjunctiva: Negative for scleral icterus. Gaze palsy involving right eye on lateral gaze to the left and right. Neck Loud right carotid bruit Cardiovascular: Normal rate and regular rhythm. Murmur (3/6 Holosystolic murmur 2RIS, LLSB, apex) heard. no JVDno gallop Pulmonary/Chest: Effort normal. He has no wheezes. He has no rales. Abdominal: He exhibits no distension. Soft. There is no abdominal tenderness. There is no guarding. Lymph cervical adenopathy not present Neurological He is alert and oriented to person, place, and time. Able to follow 3 step commands. No receptive aphasia. Ocular motion shows abnormal movement of right eye on right and left lateral gaze PAZ Tongue protrudes midline. Speech fluent and clear. No expressive aphasia. No pronator drift on arm extension. Able to maintain all extremities antigravity x 10 sec, although limited on left leg DTR 2+/4 patella bilateral. Absent Achilles bilateral. Brachioradialis 1+/4 bilateral. Bicep 1+/4 bilateral. No loss of pinprick sensation in any dermatome of bilateral arms or legs, but relatively less strong on the left side. Relative decrease in vibratory sensation in toes and forefeet compared to ankles and knees bilateral. Romberg negative. Gait not evaluated. Skin: Skin is warm and dry. No rash noted. He is not diaphoretic. No erythema. Psychiatric: He has a normal mood and affect. His behavior is normal. ASSESSMENT: Dizziness and unsteadiness. New, acute onset. Patient has multiple possible causes, but with multiple CV risk factors, needs to have CVA ruled out. However, this could represent simple 6th nerve palsy related to DM, labrynth disorder, all superimposed on underlying lumbar radiculopathy and possible neuropathic problems. - MRI of brain ordered. Echocardiogram. Carotid doppler to assess velocities in right carotid. - B12, protein electrophoresis, folate to check for concomitant neuropathy - A1c, Lipid panel - PT, OT evaluation - ASA 81 mg started 2. Elevated BP reading with negative orthostatic readings. - Will start lisinopril 20 mg daily, but maintain permissive hypertension due to possible CVA 3. Type 2 DM - Metformin on hold due to contrast agents - SS insulin while in hospital PLAN: As above [facility] 03-24-2024 History and physical note Images from the original note were not included. GENERAL HISTORY AND PHYSICAL: 03/24/24 PROBLEM: Principal Problem: Dizziness Active Problems: Type 2 diabetes mellitus without complication, without long-term current use of insulin ([facility] Double vision Elevated BP without diagnosis of hypertension HISTORY OF PRESENT ILLNESS: Tyler Torres is an 79 y.o. White or male. Was fishing with his grandchildren at the [employer] earlier today. Notice difficulty with his vision, in that he had trouble seeing or focusing on the hooks in order to place bait, tie lures, etc. This persisted for several hours, then he subsequently developed dizziness , which he describes as an off balance sensation. No feeling of going to black out or pass out. No spinning or twirling. He just felt unsteady, and noticed that if he looked to the right, he was seeing double (side to side), and if he looked to the left, he also saw double (vertically). No scotoma or visual field cut. He presented to the ED for evaluation. Initial evaluation shows a normal non contrasted CT except for hypodensity in the caudate nucleus, and CT angiogram of neck shows 60% stenosis with hard and soft plaque on the right. Patient has a history of low back surgery 8 months ago to correct a previous failed low back surgery. He has had a prolonged recover, and still must use a walker or cane to ambulate. He can only walk about 1/2 mile 3 times a week because of weakness and balance problems associated with the surgery. In addition, he has been noted to have severe rotator cuff problems bilateral, and has been recommended to have surgery for repair of this problem. PAST MEDICAL HISTORY: Past Medical History: Diagnosis Date COPD (chronic obstructive pulmonary disease) ([facility]) ROMEO (obstructive sleep apnea) PAST SURGICAL HISTORY: Past Surgical History: Procedure Laterality Date COLONOSCOPY ESOPHAGOGASTRODUODENOSCOPY Travel History Travel Screening Question Response Have you been in contact with someone who was sick? No / Unsure Do you have any of the following new or worsening symptoms? None of these Have you traveled internationally or domestically in the last month? No Travel History Travel since 02/22/24 No documented travel since 02/22/24 SOCIAL HISTORY: Social History Socioeconomic History Marital status: Single Spouse name: Not on file Number of children: Not on file Years of education: Not on file Highest education level: Not on file Occupational History Not on file Tobacco Use Smoking status: Former Smokeless tobacco: Never Substance and Sexual Activity Alcohol use: Yes Drug use: No Sexual activity: Not on file Other Topics Concern Not on file Social History Narrative Not on file Social Determinants of Health Financial Resource Strain: Low Risk (08/24/2023) Received from [facility], [facility] Overall Financial Resource Strain (CARDIA) Difficulty of Paying Living Expenses: Not hard at all Food Insecurity: No Food Insecurity (03/24/2024) Hunger Screening Food Insecurity - Worry: Never True Food Insecurity - Inability: Never True Transportation Needs: No Transportation Needs (03/24/2024) PRAPARE - Transportation Lack of Transportation (Medical): No Lack of Transportation (Non-Medical): No Physical Activity: Not on file Stress: Not on file Social Connections: Not on file Interpersonal Safety: Not At Risk (03/24/2024) Humiliation, Afraid, Rape, and Kick questionnaire Fear of Current or Ex-Partner: No Emotionally Abused: No Physically Abused: No Sexually Abused: No Housing Instability: Low Risk (03/24/2024) Housing Instability Housing Instability: No ALLERGIES: Allergies Allergen Reactions Simvastatin HOME MEDICATIONS: Medications Prior to Admission Medication Sig Dispense Refill Last Dose celecoxib (CeleBREX) 100 mg capsule Take 1 capsule (100 mg total) by mouth in the morning and 1 capsule (100 mg total) before bedtime. clonazePAM (KlonoPIN) 0.5 mg tablet Take 1 tablet (0.5 mg total) by mouth 2 (two) times a day as needed for anxiety (restlessness, insomnia). 10 tablet 0 docusate sodium (COLACE) 100 mg capsule Take 1 capsule (100 mg total) by mouth in the morning and 1 capsule (100 mg total) before bedtime. 60 capsule 2 DULoxetine (CYMBALTA) 30 mg capsule TAKE 1 CAPSULE (30 MG TOTAL) BY MOUTH IN THE MORNING 90 capsule 2 esomeprazole (NexIUM) 40 mg capsule Take 1 capsule (40 mg total) by mouth in the morning and 1 capsule (40 mg total) before bedtime. melatonin (CIRCADIN) capsule Take 1 capsule (5 mg total) by mouth nightly. metFORMIN (GLUCOPHAGE) 500 mg tablet TAKE 1 TABLET BY MOUTH IN THE MORNING AND 1 TABLET AT NOON AND 1 TABLET BEFORE BEDTIME 270 tablet 2 oxyCODONE (ROXICODONE) 5 mg immediate release tablet Take 1 tablet (5 mg total) by mouth in the morning and 1 tablet (5 mg total) before bedtime. Max Daily Amount: 10 mg. 60 tablet 0 tamsulosin (FLOMAX) 0.4 mg capsule Take 1 capsule (0.4 mg total) by mouth once daily at bedtime. 30 capsule 0 IMMUNIZATIONS: Immunization History Administered Date(s) Administered COVID-19, mRNA, LNP-S, PF, 100mcg/0.5mL Dose 09/11/2020, 10/09/2020 COVID-19, mRNA, LNP-S, PF, 30mcg/0.3mL Dose 06/12/2021 Covid-19, Mrna, Lnp-s, Bivalent, Pf, 30mcg/0.3 ml 06/09/2022 Covid-19, Mrna, Lnp-s, Pf, 30 Mcg/0.3 Ml Dose, Betzy-sucrose 12/31/2021 Covid-19, Mrna, Lnp-s, Pf,betzy-sucrose,30 Mcg/0.3ml Fall23 05/15/2023 Influenza (IM) Preservative Free 05/22/2015, 05/29/2017 Influenza High Dose Preservative Free IM 05/09/2016, 06/02/2018 Influenza Whole 05/26/2010, 05/08/2013 Influenza, High-dose, Quadrivalent 04/24/2020, 05/01/2021 Influenza, Trivalent, Adjuvanted 04/09/2019 Pneumococcal Conjugate 13-Valent 04/09/2019 RSV, recombinant, protein subunit RSVpreF, adjuvant reconstituted, 0.5 mL, PF 11/11/2023 Tdap 11/30/2018 Zoster Vaccine Recombinant 11/30/2018, 04/11/2019 REVIEW OF SYSTEMS: Review of Systems Constitutional: Positive for activity change. Negative for fever, chills, diaphoresis, appetite change, fatigue and unexpected weight change. HENT: Positive for tinnitus and vision change. Negative for congestion, hearing loss, sore throat and trouble swallowing. Eyes: Positive for visual disturbance. Negative for pain, discharge and itching. Respiratory: Negative. Cardiovascular: Negative. Gastrointestinal: Negative. Endocrine: Negative. Genitourinary: Positive for frequency and difficulty urinating. Musculoskeletal: Positive for back pain and gait problem. Skin: Negative. Neurological: Positive for dizziness and weakness. Psychiatric/Behavioral: The patient is nervous/anxious. No LMP for male patient. BP (!) 226/128 Comment: md present Pulse 87 Resp 25 SpO2 94% O2 Device: None (Room air) PHYSICAL EXAM: Physical Exam Constitutional He is oriented to person, place, and time. He appears well-nourished. No distress. Vitals reviewed. HENT Head Normocephalic. Ears Right Ear: External ear normal. Left Ear: External ear normal. Mouth/Throat Throat: Oropharynx: oropharynx clear and moist AC with minimal cerumen bilateral. No obstruction. TMs normal bilateral Eyes: Conjunctivae are normal. Pupils are equal, round, and reactive to light. Conjunctiva: Negative for scleral icterus. Gaze palsy involving right eye on lateral gaze to the left and right. Neck Loud right carotid bruit Cardiovascular: Normal rate and regular rhythm. Murmur (3/6 Holosystolic murmur 2RIS, LLSB, apex) heard. no JVDno gallop Pulmonary/Chest: Effort normal. He has no wheezes. He has no rales. Abdominal: He exhibits no distension. Soft. There is no abdominal tenderness. There is no guarding. Lymph cervical adenopathy not present Neurological He is alert and oriented to person, place, and time. Able to follow 3 step commands. No receptive aphasia. Ocular motion shows abnormal movement of right eye on right and left lateral gaze PAZ Tongue protrudes midline. Speech fluent and clear. No expressive aphasia. No pronator drift on arm extension. Able to maintain all extremities antigravity x 10 sec, although limited on left leg DTR 2+/4 patella bilateral. Absent Achilles bilateral. Brachioradialis 1+/4 bilateral. Bicep 1+/4 bilateral. No loss of pinprick sensation in any dermatome of bilateral arms or legs, but relatively less strong on the left side. Relative decrease in vibratory sensation in toes and forefeet compared to ankles and knees bilateral. Romberg negative. Gait not evaluated. Skin: Skin is warm and dry. No rash noted. He is not diaphoretic. No erythema. Psychiatric: He has a normal mood and affect. His behavior is normal. ASSESSMENT: Dizziness and unsteadiness. New, acute onset. Patient has multiple possible causes, but with multiple CV risk factors, needs to have CVA ruled out. However, this could represent simple 6th nerve palsy related to DM, labrynth disorder, all superimposed on underlying lumbar radiculopathy and possible neuropathic problems. - MRI of brain ordered. Echocardiogram. Carotid doppler to assess velocities in right carotid. - B12, protein electrophoresis, folate to check for concomitant neuropathy - A1c, Lipid panel - PT, OT evaluation - ASA 81 mg started 2. Elevated BP reading with negative orthostatic readings. - Will start lisinopril 20 mg daily, but maintain permissive hypertension due to possible CVA 3. Type 2 DM - Metformin on hold due to contrast agents - SS insulin while in hospital PLAN: As above documented in this encounter [facility] 03-24-2024 Plan of care note Problem: Safety Goal: Patient will be injury free during hospitalization Description: INTERVENTIONS: 1. Assess patient's risk for falls and implement fall prevention plan of care per policy 2. Provide and maintain a safe environment 3. Proper use of double Identifiers 4. Medication administration using the 5 rights 5. Hand hygiene 6. Specimens are labeled at the bedside 7. Instruct patient/ patient architectural representative about use of safety devices 8. Include patient/ patient architectural representative in decisions related to safety Outcome: Progressing Note: Evaluation of progress towards goal: safety maintained, bed alarm on [facility] 03-24-2024 Emergency department Note Admit 217, cleaning room [facility] 03-24-2024 Emergency department Note Admit 217, cleaning room Patient's family allowed him to get out of bed to use the urinal and left the room not notifying the nurse. Patient lost his balance while using the urinal and fell to the ground hitting his backside on the wall as well as his head. Patient sustained a skin tear to the left 5th knuckle, left wrist, right 4th finger, and right wrist. Patient did not have any other injuries. This RN cleaned the skin tears and applied bandages. documented in this encounter [facility] 03-24-2024 Emergency department Note Patient's family allowed him to get out of bed to use the urinal and left the room not notifying the nurse. Patient lost his balance while using the urinal and fell to the ground hitting his backside on the wall as well as his head. Patient sustained a skin tear to the left 5th knuckle, left wrist, right 4th finger, and right wrist. Patient did not have any other injuries. This RN cleaned the skin tears and applied bandages. [facility] 03-24-2024 Note Procedure: Chest x-ray performed Number of views:1 History:Shortness of breath COPD stroke alert Comparison:01/16/2023 Findings: The heart and lungs show no acute findings, and the mediastinum and julio are grossly negative . Impression: 1. No acute change. Finalized by Francisco Perdomo MD on 03/24/2024 2:33 PM [facility] 03-24-2024 Note XR CHEST 1 VIEW STRO KE Procedure: Chest x-ray performed Number of views:1 History:Shortness of breath COPD stroke alert Comparison:01/16/2023 Findings: The heart and lungs show no acute findings, and the mediastinum and julio are grossly negative . Impression: 1. No acute change. Finalized by Francisco Perdomo MD on 03/24/2024 2:33 PM [facility] 02-23-2024 Note HNO ID: [id number] Author: HUNG JACOBSEN MD Service: ? Author Type: Physician Type: Progress Notes Filed: 02/23/2024 17:26 Note Text: SHOULDER/ELBOW ESTABLISHED VISIT SERVICE DATE: 02/23/2024 PCP: Armando Richards MD CHIEF COMPLAINT: Bilateral shoulder follow-up SUBJECTIVE HISTORY OF PRESENT ILLNESS: 79 year old male R side is a 5, L side is a 8, last seen in November, 2-1/2 months was how long the injections lasted. Leg Strength is improving. 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 esomeprazole (NEXIUM) 40 mg capsule oxyCODONE IR (ROXICODONE) 5 mg immediate release tablet TAKE 1 TABLET (5 MG TOTAL) BY MOUTH IN THE MORNING AND 1 TABLET (5 MG TOTAL) BEFORE BEDTIME. DULoxetine (CYMBALTA) 30 mg capsule Take 30 mg by mouth. celecoxib (CELEBREX) 100 mg capsule Take by mouth. Melatonin 5 mg cap Take 5 mg by mouth. metFORMIN (GLUCOPHAGE) 500 mg tablet Take 500 mg by mouth. tamsulosin (FLOMAX) 0.4 mg Take 0.4 mg by mouth. oxyCODONE-acetaminophen (PERCOCET) 5-325 mg tablet Take by mouth. cyclobenzaprine (FLEXERIL) 5 mg tablet Take 5 mg by mouth three times a day. gabapentin (NEURONTIN) 300 mg capsule Take 1 capsule by mouth three times daily. OBJECTIVE There were no vitals taken for this visit. PHYSICAL EXAMINATION: Alert and oriented x3, ambulates from sit to stand with the aid of 1 arm. Painless neck ROM in all planes. Negative Spurling's. No radiating numbness or tingling past elbows. No visibile head, eyes, ear, neck, throat deformities L Shoulder ROM 100/0/SIJ R Shoulder ROM 80/0/SIJ Axillary, Long Thoracic, CN XI, Median, Ulnar, Radial, musculocutaneous nerves intact to motor and sensation. Fingers warm and well perfused, BCR< 2sec. Radial Pulse 2+ RADIOGRAPHIC RESULTS: Imaging was personally reviewed by myself today XR of Bilateral Shoulders today show severe GHOA. Medialization of joint line ASSESSMENT Bilateral glenohumeral arthritis PLAN DIAGNOSIS: (M19.011, M19.012) Primary osteoarthritis of both shoulders (primary encounter diagnosis) (M75.21) Biceps tendinitis of right upper extremity (M75.22) Biceps tendinitis of left shoulder (M75.81) Tendinitis of right rotator cuff (M75.82) Rotator cuff tendinitis, left Bilateral glenohumeral arthritis. Discussed continued surgical versus nonsurgical intervention. At this time, he is improved with his leg strength but not quite where he wants to be. Would recommend continued nonoperative management. He had good pain relief after bilateral glenohumeral injections. Follow-up with me as needed in 3 months or longer. Large Joint Arthro/Inj: R glenohumeral Informed Consent Consent Obtained: Verbal Warren Protocol A moment to CARE was completed. SIGN IN Personnel directly involved with the procedure wore the appropriate PPE. Special Equipment: Yes Patient/Surrogate Stated/Verified: Patient name, Date of , Relevant allergies and Intended procedure TIME OUT Intended patient and procedure match the source document(s). Consent documented and matches the intended procedure. Relevant labs, photos, and/or imaging studies have been reviewed. Correct side/site marked and visible. Medications required for procedure verified. No fire risk assessment and interventions applicable. No implant(s) inserted. 02/23/2024 2:52 PM The procedure site was prepped in the usual sterile fashion. Site: R glenohumeral Medications: 80 mg triamcinolone acetonide 40 mg/mL Anesthetics: 5 mL ROPivacaine (PF) 5 mg/mL (0.5 %) Outcome: Tolerated well, no immediate complications Post-injection instructions were reviewed with the patient and the patient voiced understanding of these instructions. SIGN OUT All instruments, equipment, possible retained foreign bodies accounted for. Patient had good pain relief after injection. Large Joint Arthro/Inj: L glenohumeral Informed Consent Consent Obtained: Verbal Warren Protocol A moment to CARE was completed. SIGN IN Sign in communication not applicable due to emergent procedure. Personnel directly involved with the procedure wore the appropriate PPE. Special Equipment: N/A Patient/Surrogate Stated/Verified: Patient name, Date of , Relevant allergies and Intended procedure TIME OUT Intended patient and procedure match the source document(s). Consent documented and matches the intended procedure. Relevant labs, photos, and/or imaging studies have been reviewed. Correct side/site marked and visible. Medications required for procedure verified. No fire risk assessment and interventi (more content not included)... [facility] 02-23-2024 History of Present illness Narrative Associated Order(s): Large Joint Arthro/Inj: R glenohumeral; Large Joint Arthro/Inj: L glenohumeral Post-Procedure Diagnose(s): Tendinitis of right rotator cuff; Rotator cuff tendinitis, left; Primary osteoarthritis of both shoulders; Biceps tendinitis of left shoulder; Biceps tendinitis of right upper extremity SHOULDER/ELBOW ESTABLISHED VISIT SERVICE DATE: 02/23/2024 PCP: Armando Richards MD CHIEF COMPLAINT: Bilateral shoulder follow-up SUBJECTIVE HISTORY OF PRESENT ILLNESS: 79 year old male R side is a 5, L side is a 8, last seen in November,-2 months was how long the injections lasted. Leg Strength is improving. 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 esomeprazole (NEXIUM) 40 mg capsule oxyCODONE IR (ROXICODONE) 5 mg immediate release tablet TAKE 1 TABLET (5 MG TOTAL) BY MOUTH IN THE MORNING AND 1 TABLET (5 MG TOTAL) BEFORE BEDTIME. DULoxetine (CYMBALTA) 30 mg capsule Take 30 mg by mouth. celecoxib (CELEBREX) 100 mg capsule Take by mouth. Melatonin 5 mg cap Take 5 mg by mouth. metFORMIN (GLUCOPHAGE) 500 mg tablet Take 500 mg by mouth. tamsulosin (FLOMAX) 0.4 mg Take 0.4 mg by mouth. oxyCODONE-acetaminophen (PERCOCET) 5-325 mg tablet Take by mouth. cyclobenzaprine (FLEXERIL) 5 mg tablet Take 5 mg by mouth three times a day. gabapentin (NEURONTIN) 300 mg capsule Take 1 capsule by mouth three times daily. OBJECTIVE There were no vitals taken for this visit. PHYSICAL EXAMINATION: Alert and oriented x3, ambulates from sit to stand with the aid of 1 arm. Painless neck ROM in all planes. Negative Spurling's. No radiating numbness or tingling past elbows. No visibile head, eyes, ear, neck, throat deformities L Shoulder ROM 100/0/SIJ R Shoulder ROM 80/0/SIJ Axillary, Long Thoracic, CN XI, Median, Ulnar, Radial, musculocutaneous nerves intact to motor and sensation. Fingers warm and well perfused, BCR< 2sec. Radial Pulse 2+ RADIOGRAPHIC RESULTS: Imaging was personally reviewed by myself today XR of Bilateral Shoulders today show severe GHOA. Medialization of joint line ASSESSMENT Bilateral glenohumeral arthritis PLAN DIAGNOSIS: (M19.011, M19.012) Primary osteoarthritis of both shoulders (primary encounter diagnosis) (M75.21) Biceps tendinitis of right upper extremity (M75.22) Biceps tendinitis of left shoulder (M75.81) Tendinitis of right rotator cuff (M75.82) Rotator cuff tendinitis, left Bilateral glenohumeral arthritis. Discussed continued surgical versus nonsurgical intervention. At this time, he is improved with his leg strength but not quite where he wants to be. Would recommend continued nonoperative management. He had good pain relief after bilateral glenohumeral injections. Follow-up with me as needed in 3 months or longer. Large Joint Arthro/Inj: R glenohumeral Informed Consent Consent Obtained: Verbal Warren Protocol A moment to CARE was completed. SIGN IN Personnel directly involved with the procedure wore the appropriate PPE. Special Equipment: Yes Patient/Surrogate Stated/Verified: Patient name, Date of , Relevant allergies and Intended procedure TIME OUT Intended patient and procedure match the source document(s). Consent documented and matches the intended procedure. Relevant labs, photos, and/or imaging studies have been reviewed. Correct side/site marked and visible. Medications required for procedure verified. No fire risk assessment and interventions applicable. No implant(s) inserted. 02/23/2024 2:52 PM The procedure site was prepped in the usual sterile fashion. Site: R glenohumeral Medications: 80 mg triamcinolone acetonide 40 mg/mL Anesthetics: 5 mL ROPivacaine (PF) 5 mg/mL (0.5 %) Outcome: Tolerated well, no immediate complications Post-injection instructions were reviewed with the patient and the patient voiced understanding of these instructions. SIGN OUT All instruments, equipment, possible retained foreign bodies accounted for. Patient had good pain relief after injection. Large Joint Arthro/Inj: L glenohumeral Informed Consent Consent Obtained: Verbal Warren Protocol A moment to CARE was completed. SIGN IN Sign in communication not applicable due to emergent procedure. Personnel directly involved with the procedure wore the appropriate PPE. Special Equipment: N/A Patient/Surrogate Stated/Verified: Patient name, Date of , Relevant allergies and Intended procedure TIME OUT Intended patient and procedure match the source document(s). Consent documented and matches the intended procedure. Relevant labs, photos, and/or imaging studies have been reviewed. Correct side/site marked and visible. Medications required for procedure verified. No fire risk assessment and interventions applicable. No implant(s) inserted. 02/23/2024 2:52 PM The procedure site was prepped in the usual sterile fashion. Site: L glenohumeral Medications: 80 mg triamcinolone acetonide 40 mg/mL Anesthetics: 5 mL ROPivacaine (PF) 5 mg/mL (0.5 %) Outcome: Tolerated well, no immediate complications Post-injection instructions were reviewed with the patient and the patient voiced understanding of these instructions. SIGN OUT All instruments, equipment, possible retained foreign bodies accounted for. Patient had good pain relief after injection. All questions were answered for patient today, they should not hesitate to call the office with any issues. Medical Decision Making: Medical Decision Making Level: 1 - N/A Hung Jacobsen MD documented in this encounter [facility] 02-21-2024 History of Present illness Narrative Subjective Patient ID: Tyler Torres is a 79 y.o. male. Comes in to discuss ongoing feeling of fatigue. Some of it is related to nocturia and after he gets up to urinate, he can't get comfortable or relax. He also notes times during the day where he feels anxious. He is doing his walking but continues to be frustrated by his limited physical capacity which is due to his back issue, bilateral shoulder pain, generalized osteoarthritis and his age. He is on Cymbalta. He denies significant depression symptoms, certainly is not suicidal. The following portions of the patient's history were reviewed and updated as appropriate: allergies, current medications, past medical history, past social history, past surgical history, and problem list. Review of Systems Objective Physical Exam Constitutional: Comments: He gets around OK with his walker and he looks well and interacts normally. No other physical exam done today. Assessment/Plan I believe anxiety is driving much of this, excluding the obvious physical limitations. There should be limited concern regarding over sedation at this dosing. Further pending his course. Diagnoses and all orders for this visit: Anxiety - clonazePAM (KlonoPIN) 0.5 mg tablet; Take 1 tablet (0.5 mg total) by mouth 2 (two) times a day as needed for anxiety (restlessness, insomnia). Lumbar degenerative disc disease - oxyCODONE (ROXICODONE) 5 mg immediate release tablet; Take 1 tablet (5 mg total) by mouth in the morning and 1 tablet (5 mg total) before bedtime. Max Daily Amount: 10 mg. Benign prostatic hyperplasia with nocturia documented in this encounter [facility] 02-20-2024 Note HNO ID: [id number] Author: Mahesh SMALL MD Service: ? Author Type: Physician Type: Progress Notes Filed: 02/20/2024 15:29 Note Text: Tyler is now 6 months out from surgery. Overall he is making progress. He is complaining of a generalized sensation of fatigue that has gotten worse in the past few weeks. I suggested he talk to his primary care physician about this. He is also complaining of difficulty arising from a chair. This is not painful but he has been told as long as he needs to push himself out of a chair he cannot have his shoulders addressed. In examining him today he is actually pulling himself forward out of a chair and is not really axially loading his shoulders and potentially could have his shoulder addressed. He is walking up to half a mile at a time. Overall and he is making reasonable progress. He will continue with his activities as tolerated. I will see him back in 6 months time with new x-rays. Mahesh Small MD [facility] 02-20-2024 History of Present illness Narrative Tyler is now 6 months out from surgery. Overall he is making progress. He is complaining of a generalized sensation of fatigue that has gotten worse in the past few weeks. I suggested he talk to his primary care physician about this. He is also complaining of difficulty arising from a chair. This is not painful but he has been told as long as he needs to push himself out of a chair he cannot have his shoulders addressed. In examining him today he is actually pulling himself forward out of a chair and is not really axially loading his shoulders and potentially could have his shoulder addressed. He is walking up to half a mile at a time. Overall and he is making reasonable progress. He will continue with his activities as tolerated. I will see him back in 6 months time with new x-rays. Mahesh Small MD [facility] Note [S] Doing ok. Quad still recovering from index surgery. Feeling anxious but self reduced his Cymbalta dose. No change in exam [O] 5/5 BL U/L E except left HF at 4-/5 SILT except L3 on left with some paresetshais Incision CDI ASSESSMENT/PLAN No diagnosis found. Patient is doing well. He is feeling anxious and fatigued on todays visit for a total of 3 weeks which is directly linked to the time he self reduced his Cymbalta dose. We will see him in 6 months for repeat clinical and radiographic eval. I reviewed the information obtained and documented by the fellow. I examined the patient and evaluated all available films and pertinent documents. We discussed the case and I agree with the plans as outlined in this note. documented in this encounter [facility] 02-20-2024 Note HNO ID: [id number] Author: Mahesh SMALL MD Service: ? Author Type: Physician Type: Progress Notes Filed: 02/20/2024 15:29 Note Text: Spine Clinic Note [S] Doing ok. Quad still recovering from index surgery. Feeling anxious but self reduced his Cymbalta dose. No change in exam [O] 5/5 BL U/L E except left HF at 4-/5 SILT except L3 on left with some paresetshais Incision CDI ASSESSMENT/PLAN No diagnosis found. Patient is doing well. He is feeling anxious and fatigued on todays visit for a total of 3 weeks which is directly linked to the time he self reduced his Cymbalta dose. We will see him in 6 months for repeat clinical and radiographic eval. I reviewed the information obtained and documented by the fellow. I examined the patient and evaluated all available films and pertinent documents. We discussed the case and I agree with the plans as outlined in this note. [facility] 01-25-2024 Miscellaneous Notes Refill request, contract signed and appointments up to date. documented in this encounter [facility] 01-25-2024 Telephone encounter Note Refill request, contract signed and appointments up to date. [facility] 12-26-2023 Hospital Discharge instructions Patient Education 12/26/2023 13:38:45 Dietary Guidelines to Help Prevent Kidney Stones Dietary Guidelines to Help Prevent Kidney Stones Kidney stones are deposits of minerals and salts that form inside your kidneys. Your risk of developing kidney stones may be greater depending on your diet, your lifestyle, the medicines you take, and whether you have certain medical conditions. Most people can lower their risks of developing kidney stones by following these dietary guidelines. Your dietitian may give you more specific instructions depending on your overall health and the type of kidney stones you tend to develop. What are tips for following this plan? Reading food labels Choose foods with no salt added or low-salt labels. Limit your salt (sodium) intake to less than 1,500 mg a day. Choose foods with calcium for each meal and snack. Try to eat about 300 mg of calcium at each meal. Foods that contain 200 500 mg of calcium a serving include: ?8 oz (237 mL) of milk, ktsrfpw-qqasubdxveoj-szpji milk, and calcium-fortifiedfruit juice. Calcium-fortified means that calcium has been added to these drinks. ?8 oz (237 mL) of kefir, yogurt, and soy yogurt. ?4 oz (114 g) of tofu. ?1 oz (28 g) of cheese. ?1 cup (150 g) of dried figs. ?1 cup (91 g) of cooked broccoli. ?One 3 oz (85 g) can of sardines or mackerel. Most people need 1,000 1,500 mg of calcium a day. Talk to your dietitian about how much calcium is recommended for you. Shopping Buy plenty of fresh fruits and vegetables. Most people do not need to avoid fruits and vegetables, even if these foods contain nutrients that may contribute to kidney stones. When shopping for convenience foods, choose: ?Whole pieces of fruit. ?Pre-made salads with dressing on the side. ?Low-fat fruit and yogurt smoothies. Avoid buying frozen meals or prepared deli foods. These can be high in sodium. Look for foods with live cultures, such as yogurt and kefir. Choose high-fiber grains, such as whole-wheat breads, oat bran, and wheat cereals. Cooking Do not add salt to food when cooking. Place a salt shaker on the table and allow each person to add their own salt to taste. Use vegetable protein, such as beans, textured vegetable protein (TVP), or tofu, instead of meat in pasta, casseroles, and soups. Meal planning Eat less salt, if told by your dietitian. To do this: ?Avoid eating processed or pre-made food. ?Avoid eating fast food. Eat less animal protein, including cheese, meat, poultry, or fish, if told by your dietitian. To do this: ?Limit the number of times you have meat, poultry, fish, or cheese each week. Eat a diet free of meat at least 2 days a week. ?Eat only one serving each day of meat, poultry, fish, or seafood. ?When you prepare animal proteins, cut pieces into small portion sizes. For most meat and fish, one serving is about the size of the palm of your hand. Eat at least five servings of fresh fruits and vegetables each day. To do this: ?Keep fruits and vegetables on hand for snacks. ?Eat one piece of fruit or a handful of berries with breakfast. ?Have a salad and fruit at lunch. ?Have two kinds of vegetables at dinner. You may be told to limit foods that are high in a substance called oxalate. These include: ?Spinach (cooked), rhubarb, beets, sweet potatoes, and [place] chard. ?Peanuts. ?Potato chips, malawian fries, and baked potatoes with skin on. ?Nuts and nut products. ?Chocolate. If you regularly take a diuretic medicine, make sure to eat at least 1 or 2 servings of fruits or vegetables that are high in potassium each day. These include: ?Avocado. ?Banana. ?[place], prune, carrot, or tomato juice. ?Baked potato. ?Cabbage. ?Beans and split peas. Lifestyle Drink enough fluid to keep your urine pale yellow. This is the most important thing you can do. Spread your fluid intake throughout the day. If you drink alcohol: ?Limit how much you have to: ?0 1 drink a day for women who are not . ?0 2 drinks a day for men. ?Know how much alcohol is in your drink. In the [place] one drink equals one 12 oz bottle of beer (355 mL), one 5 oz glass of wine (148 mL), or one 1 oz glass of hard liquor (44 mL). Lose weight if told by your health care provider. Work with your dietitian to find an eating plan and weight loss strategies that work best for you. General information Talk to your health care provider and dietitian about taking daily supplements. Depending on your health and the cause of your kidney stones, you may be told: ?Do not take high-dose supplements of vitamin C (1,000 mg a day or more). ?To take a calcium supplement. ?To take a daily probiotic supplement. ?To take other supplements such as magnesium, fish oil, or vitamin B6. Take pydr-tez-sgasrmj and prescription medicines only as told by your health care provider. These include supplements. What foods should I limit? Limit your intake of the following foods, or eat them as told by your dietitian. Vegetables Spinach. Rhubarb. Beets. Canned vegetables. Pickles. Olives. Baked potatoes with skin. Grains Wheat bran. Baked goods. Salted crackers. Cereals high in sugar. Meats and other proteins Nuts. Nut butters. Large portions of meat, poultry, or fish. Salted, precooked, or cured meats, such as sausages, meat loaves, and hot dogs. Dairy Cheeses. Beverages Regular soft drinks. Regular vegetable juice. Seasonings and condiments Seasoning blends with salt. Salad dressings. Soy sauce. Ketchup. Barbecue sauce. Other foods Canned soups. Canned pasta sauce. Casseroles. Pizza. Lasagna. Frozen meals. Potato chips. [place] fries. The items listed above may not be a complete list of foods and beverages you should limit. Contact a dietitian for more information. What foods should I avoid? Talk to your dietitian about specific foods you should avoid based on the type of kidney stones you have and your overall health. Fruits Grapefruit. The item listed above may not be a complete list of foods and beverages you should avoid. Contact a dietitian for more information. Summary Kidney stones are deposits of minerals and salts that form inside your kidneys. You can lower your risk of kidney stones by making changes to your diet. The most important thing you can do is drink enough fluid. Drink enough fluid to keep your urine pale yellow. Talk to your dietitian about how much calcium you should have each day, and eat less salt and animal protein as told by your dietitian. This information is not intended to replace advice given to you by your health care provider. Make sure you discuss any questions you have with your health care provider. Document Revised: 11/10/2022 Document Reviewed: 11/10/2022 [employer] Patient Education 2022 [employer] 12/26/2023 13:38:43 Benign Prostatic Hyperplasia Benign Prostatic Hyperplasia Benign prostatic hyperplasia (BPH) is an enlarged prostate gland that is caused by the normal aging process. The prostate may get bigger as a man gets older. The condition is not caused by cancer. The prostate is a walnut-sized gland that is involved in the production of semen. It is located in front of the rectum and below the bladder. The bladder stores urine. The urethra carries stored urine out of the body. An enlarged prostate can press on the urethra. This can make it harder to pass urine. The buildup of urine in the bladder can cause infection. Back pressure and infection may progress to bladder damage and kidney (renal) failure. What are the causes? This condition is part of the normal aging process. However, not all men develop problems from this condition. If the prostate enlarges away from the urethra, urine flow will not be blocked. If it enlarges toward the urethra and compresses it, there will be problems passing urine. What increases the risk? This condition is more likely to develop in men older than 50 years. What are the signs or symptoms? Symptoms of this condition include: Getting up often during the night to urinate. Needing to urinate frequently during the day. Difficulty starting urine flow. Decrease in size and strength of your urine stream. Leaking (dribbling) after urinating. Inability to pass urine. This needs immediate treatment. Inability to completely empty your bladder. Pain when you pass urine. This is more common if there is also an infection. Urinary tract infection (UTI). How is this diagnosed? This condition is diagnosed based on your medical history, a physical exam, and your symptoms. Tests will also be done, such as: A post-void bladder scan. This measures any amount of urine that may remain in your bladder after you finish urinating. A digital rectal exam. In a rectal exam, your health care provider checks your prostate by putting a lubricated, gloved finger into your rectum to feel the back of your prostate gland. This exam detects the size of your gland and any abnormal lumps or growths. An exam of your urine (urinalysis). A prostate specific antigen (PSA) screening. This is a blood test used to screen for prostate cancer. An ultrasound. This test uses sound waves to electronically produce a picture of your prostate gland. Your health care provider may refer you to a specialist in kidney and prostate diseases (urologist). How is this treated? Once symptoms begin, your health care provider will monitor your condition (active surveillance or watchful waiting). Treatment for this condition will depend on the severity of your condition. Treatment may include: Observation and yearly exams. This may be the only treatment needed if your condition and symptoms are mild. Medicines to relieve your symptoms, including: ?Medicines to shrink the prostate. ?Medicines to relax the muscle of the prostate. Surgery in severe cases. Surgery may include: ?Prostatectomy. In this procedure, the prostate tissue is removed completely through an open incision or with a laparoscope or robotics. ?Transurethral resection of the prostate (TURP). In this procedure, a tool is inserted through the opening at the tip of the penis (urethra). It is used to cut away tissue of the inner core of the prostate. The pieces are removed through the same opening of the penis. This removes the blockage. ?Transurethral incision (TUIP). In this procedure, small cuts are made in the prostate. This lessens the prostate's pressure on the urethra. ?Transurethral microwave thermotherapy (TUMT). This procedure uses microwaves to create heat. The heat destroys and removes a small amount of prostate tissue. ?Transurethral needle ablation (TUNA). This procedure uses radio frequencies to destroy and remove a small amount of prostate tissue. ?Interstitial laser coagulation (ILC). This procedure uses a laser to destroy and remove a small amount of prostate tissue. ?Transurethral electrovaporization (TUVP). This procedure uses electrodes to destroy and remove a small amount of prostate tissue. ?Prostatic urethral lift. This procedure inserts an implant to push the lobes of the prostate away from the urethra. Follow these instructions at home: Take xwmr-zfp-kthtinr and prescription medicines only as told by your health care provider. Monitor your symptoms for any changes. Contact your health care provider with any changes. Avoid drinking large amounts of liquid before going to bed or out in public. Avoid or reduce how much caffeine or alcohol you drink. Give yourself time when you urinate. Keep all follow-up visits. This is important. Contact a health care provider if: You have unexplained back pain. Your symptoms do not get better with treatment. You develop side effects from the medicine you are taking. Your urine becomes very dark or has a bad smell. Your lower abdomen becomes distended and you have trouble passing urine. Get help right away if: You have a fever or chills. You suddenly cannot urinate. You feel light-headed or very dizzy, or you faint. There are large amounts of blood or clots in your urine. Your urinary problems become hard to manage. You develop moderate to severe low back or flank pain. The flank is the side of your body between the ribs and the hip. These symptoms may be an emergency. Get help right away. Call 911. Do not wait to see if the symptoms will go away. Do not drive yourself to the hospital. Summary Benign prostatic hyperplasia (BPH) is an enlarged prostate that is caused by the normal aging process. It is not caused by cancer. An enlarged prostate can press on the urethra. This can make it hard to pass urine. This condition is more likely to develop in men older than 50 years. Get help right away if you suddenly cannot urinate. This information is not intended to replace advice given to you by your health care provider. Make sure you discuss any questions you have with your health care provider. Document Revised: 02/16/2022 Document Reviewed: 02/16/2022 [employer] Patient Education 2022 [employer]. 12/26/2023 13:38:40 Kidney Stones, Zwla-du-Ghfn Kidney Stones Kidney stones are rock-like masses that form inside of the kidneys. Kidneys are organs that make pee (urine). A kidney stone may move into other parts of the urinary tract, including: The tubes that connect the kidneys to the bladder (ureters). The bladder. The tube that carries urine out of the body (urethra). Kidney stones can cause very bad pain and can block the flow of pee. The stone usually leaves your body (passes) through your pee. You may need to have a doctor take out the stone. What are the causes? Kidney stones may be caused by: A condition in which certain glands make too much parathyroid hormone (primary hyperparathyroidism). A buildup of a type of crystals in the bladder made of a chemical called uric acid. The body makes uric acid when you eat certain foods. Narrowing (stricture) of one or both of the ureters. A kidney blockage that you were born with. Past surgery on the kidney or the ureters, such as gastric bypass surgery. What increases the risk? You are more likely to develop this condition if: You have had a kidney stone in the past. You have a family history of kidney stones. You do not drink enough water. You eat a diet that is high in protein, salt (sodium), or sugar. You are overweight or very overweight (obese). What are the signs or symptoms? Symptoms of a kidney stone may include: Pain in the side of the belly, right below the ribs (flank pain). Pain usually spreads (radiates) to the groin. Needing to pee often or right away (urgently). Pain when going pee (urinating). Blood in your pee (hematuria). Feeling like you may vomit (nauseous). Vomiting. Fever and chills. How is this treated? Treatment depends on the size, location, and makeup of the kidney stones. The stones will often pass out of the body through peeing. You may need to: Drink more fluid to help pass the stone. In some cases, you may be given fluids through an IV tube put into one of your veins at the hospital. Take medicine for pain. Make changes in your diet to help keep kidney stones from coming back. Sometimes, medical procedures are needed to remove a kidney stone. This may involve: A procedure to break up kidney stones using a beam of light (laser) or shock waves. Surgery to remove the kidney stones. Follow these instructions at home: Medicines Take ntce-tts-ffchzcp and prescription medicines only as told by your doctor. Ask your doctor if the medicine prescribed to you requires you to avoid driving or using heavy machinery. Eating and drinking Drink enough fluid to keep your pee pale yellow. You may be told to drink at least 8 10 glasses of water each day. This will help you pass the stone. If told by your doctor, change your diet. This may include: ?Limiting how much salt you eat. ?Eating more fruits and vegetables. ?Limiting how much meat, poultry, fish, and eggs you eat. Follow instructions from your doctor about eating or drinking restrictions. General instructions Collect pee samples as told by your doctor. You may need to collect a pee sample: ?24 hours after a stone comes out. ?8 12 weeks after a stone comes out, and every 6 12 months after that. Strain your pee every time you pee (urinate), for as long as told. Use the strainer that your doctor recommends. Do not throw out the stone. Keep it so that it can be tested by your doctor. Keep all follow-up visits as told by your doctor. This is important. You may need follow-up tests. How is this prevented? To prevent another kidney stone: Drink enough fluid to keep your pee pale yellow. This is the best way to prevent kidney stones. Eat healthy foods. Avoid certain foods as told by your doctor. You may be told to eat less protein. Stay at a healthy weight. Where to find more information National Kidney Foundation (NKF): www.kidney.org [facility] ([facility]): www.urologyhealth.org Contact a doctor if: You have pain that gets worse or does not get better with medicine. Get help right away if: You have a fever or chills. You get very bad pain. You get new pain in your belly (abdomen). You pass out (faint). You cannot pee. Summary Kidney stones are rock-like masses that form inside of the kidneys. Kidney stones can cause very bad pain and can block the flow of pee. The stones will often pass out of the body through peeing. Drink enough fluid to keep your pee pale yellow. This information is not intended to replace advice given to you by your health care provider. Make sure you discuss any questions you have with your health care provider. Document Revised: 04/04/2022 Document Reviewed: 04/04/2022 [employer] Patient Education 2022 [employer]. [facility] 12-25-2023 Miscellaneous Notes Refill request documented in this encounter [facility] 12-25-2023 Telephone encounter Note Refill request [facility] 12-12-2023 Miscellaneous Notes Patient came in and said he was on docusate sodium before for his constipation and would like you to order this for him again. documented in this encounter [facility] 12-12-2023 Telephone encounter Note Patient came in and said he was on docusate sodium before for his constipation and would like you to order this for him again. [facility] 12-11-2023 Miscellaneous Notes ED Outreach This documentation is being used for Transition of Care purposes: Yes/No: Yes ED Outreach Date: December 11, 2023 ED Outreach Method: COMMUNICATION METHOD: Telephone ED Outreach Attempt: first ED Outreach Outcome: Contacted Patient Name of ED Facility: [facility] Date of ED Discharge: 12/10/2023 Discharge Diagnosis: Kidney stone, Kidney cysts ED Chief Complaint: Flank Pain Current Symptom Status: continuing- patient states that he is continuing to have some pain. He states that he is able to urinate. He denies visible blood in the urine. Denies other concerns at this time. Medication Changes Reviewed: yes Medication Questions/Concerns: denies concerns at this time Follow-up PCP Scheduled: denies Follow-up Specialist Scheduled: seeing urology Follow up Testing Scheduled: n/a Patient Contacted Office Prior to ED Visit: No. Patient made aware of on-call provider and same day appointment availability. Additional Comments: Patient will contact the office with additional concerns. documented in this encounter [facility] 12-11-2023 Telephone encounter Note ED Outreach This documentation is being used for Transition of Care purposes: Yes/No: Yes ED Outreach Date: December 11, 2023 ED Outreach Method: COMMUNICATION METHOD: Telephone ED Outreach Attempt: first ED Outreach Outcome: Contacted Patient Name of ED Facility: [facility] Date of ED Discharge: 12/10/2023 Discharge Diagnosis: Kidney stone, Kidney cysts ED Chief Complaint: Flank Pain Current Symptom Status: continuing- patient states that he is continuing to have some pain. He states that he is able to urinate. He denies visible blood in the urine. Denies other concerns at this time. Medication Changes Reviewed: yes Medication Questions/Concerns: denies concerns at this time Follow-up PCP Scheduled: denies Follow-up Specialist Scheduled: seeing urology Follow up Testing Scheduled: n/a Patient Contacted Office Prior to ED Visit: No. Patient made aware of on-call provider and same day appointment availability. Additional Comments: Patient will contact the office with additional concerns. [facility] 11-27-2023 History of Present illness Narrative Subjective Patient ID: Tyler Torres is a 78 y.o. male. Comes in with several concerns. In general he has had a good recovery from his back surgery with reasonable pain relief. He is still walking with a walker but is able to go a half a mile. He has the ongoing concern of lack of strength and energy. This has been a pretty constant and somewhat nonspecific complaint for him. His surgeon thought that his voice sounded funny and that maybe he should have that checked here. The following portions of the patient's history were reviewed and updated as appropriate: allergies, current medications, past medical history, past social history, past surgical history, and problem list. Review of Systems Constitutional: Negative for fever and unexpected weight change. HENT: Negative for trouble swallowing. Minor congestion and postnasal drip Respiratory: He fatigues easily but isn't really short of breath Cardiovascular: Negative for chest pain and leg swelling. Gastrointestinal: Negative for abdominal pain, blood in stool and vomiting. Genitourinary: Negative for difficulty urinating. Musculoskeletal: His shoulders are worn out and need replaced Neurological: He does not really describe lightheadedness or dizziness Objective Physical Exam Constitutional: Comments: Color looks fine. He interacts appropriately. Blood pressure normal. HENT: Mouth/Throat: Comments: Voice sounds normal to me. Eyes: General: No scleral icterus. Neck: Comments: No thyroid enlargement or neck mass Cardiovascular: Rate and Rhythm: Normal rate and regular rhythm. Heart sounds: No murmur heard. Pulmonary: Effort: Pulmonary effort is normal. Breath sounds: Normal breath sounds. Abdominal: General: There is no distension. Palpations: Abdomen is soft. Tenderness: There is no abdominal tenderness. Musculoskeletal: Right lower leg: No edema. Left lower leg: No edema. Lymphadenopathy: Cervical: No cervical adenopathy. Neurological: Mental Status: Mental status is at baseline. Assessment/Plan There is no doubt that he was functioning younger than his age just a couple of years ago and now he has some limitation related to musculoskeletal issues. I do think he has an element of underlying depression and he is on Cymbalta. He has a history of GERD and is on Nexium twice daily. History of obstructive sleep apnea but he could not get used to wearing CPAP therapy. I do not think that is a major contributor to his fatigue complaint. His blood sugar has been reasonable when he checks it. Will check basic lab to be sure that nothing is out of line and if his labs are okay I think it is a matter of him continuing to be as active as possible in an effort to regain his strength. Diagnoses and all orders for this visit: Other fatigue - CBC auto differential; Future - Comprehensive metabolic panel; Future - Thyroid profile includes TSH FT4; Future Gastroesophageal reflux disease without esophagitis ROMEO (obstructive sleep apnea) Generalized osteoarthritis Type 2 diabetes mellitus without complication, without long-term current use of insulin [place] [place] - Hemoglobin A1c; Future documented in this encounter [facility] 11-22-2023 Miscellaneous Notes Refill request documented in this encounter [facility] 11-22-2023 Telephone encounter Note Refill request [facility] 11-21-2023 History of Present illness Narrative SPINE SURGERY FOLLOW UP This is an in-person visit. SERVICE DATE: 11/21/2023 SURGERY DATE: 08/24/23 Tyler Torres is seen for 3 month post operative follow up. Doing well. Has some systemic signs of fatigue concerning for the flu. Encouraged to see PCP. Back and Leg apin impriving. Ambualting Miranda Discount Total Savings: $ [facility] extends a miranda discount to all qualifying patients. This reduces your estimated cost and estimated responsibility. Miles 6 days per week Patient Entered Questionnaires 08/14/2023 10/08/2023 11/14/2023 Spine Questions Pain Location: Lower back Lower back Leg Pain Duration: 1 to 5 years Pain over last 6 months: Every day or nearly every day in the past 6 months Symptoms from neck/cervical spine: Yes Yes Yes Employment Status: Retired Retired Involved in law suit/legal claim: No 08/14/2023 10/08/2023 11/14/2023 Neck Questionnaires Chanel Modified BRIT Score 14 (A lower score indicates increased pain and issues.) 13 (A lower score indicates increased pain and issues.) 13 (A lower score indicates increased pain and issues.) PROMIS Score Percentiles 10/08/2023 11/13/2023 11/14/2023 Physical Health Physical Function Percentile 4 2 Sleep Percentile 27* 7 Fatigue Percentile 8 8 Pain Interference Percentile 4 2 08/14/2023 10/08/2023 11/14/2023 PROMIS SOCIAL ROLE SCORE Social Role Satisfaction Percentile 3 2 2 03/12/2023 07/27/2023 11/13/2023 PROMIS Global Health Scale Physical Health Percentile 0 2 4 Mental Health Percentile 26* 34 26* Percentiles provide an indication of how the patient's score ranks in relation to the general population. Higher percentile rankings indicate better function/quality of life. 50th percentile is the average of the general population and indicates half of respondents had a worse score. Descriptive Summary for PROMIS Physical Function T-score = 29 (Percentile 2) Unable - Do 2 hours of physical labor Unable - Walk at a normal speed. Depression Screenin10/08/2023 11/13/2023 11/14/2023 PHQ-9 Score 7 12 8 10/08/2023 11/13/2023 11/14/2023 PHQ-9 Self-harm Question Question 9 Not at all Not at all Not at all PHQ-9 Self-Harm (Item 9) response options: 0 Not at all 1 Several days 2 More than half the days 3 Nearly every day PHQ-9 Levels: 0-4 No to mild depression 5-9 Mild depression 10-14 Moderate depression 15-19 Moderately severe depression 20-27 Severe depression PHYSICAL EXAM: There were no vitals taken for this visit. GENERAL APPEARANCE: Well nourished, well developed, and no apparent distress. NEURO PSYCH: Patient oriented to person, place, and time. Mood pleasant. Benign affect. MUSCULOSKELETAL VISUAL INSPECTION CERVICAL: WNL THORACIC: WNL LUMBAR: WNL MOTOR: 5/5 in all muscle groups. Except left HF and Quad at 4/5 SENSORY: Normal sensory exam GAIT: Normal. REFLEXES: +2 to bilateral U/L extremities. PROPRIOCEPTION: Normal. LONG TRACT SIGNS: No clonus. No Hoffmans. DATA REVIEW [facility] records independently reviewed ASSESSMENT/PLAN No diagnosis found. Tyler Torres is 3 month s/p revision PLSDF with 5-1 ALIF. Doing well. Dealing with systemic fatigue and symptoms concerning for the flu or a URI. Encouageed to see PCP and FU in 3 months I reviewed the information obtained and documented by the fellow. I examined the patient and evaluated all available films and pertinent documents. We discussed the case and I agree with the plans as outlined in this note. SIGNATURE: Mahesh Small MD PATIENT NAME: Tyler Torres DATE: November 21, 2023 TIME: 4:07 PM PAGER: Tyler is 3 months out from surgery. He is continuing to improve. He is feeling some general malaise at this point in time and I recommended if this persist he should contact his primary care doctor. He is no longer using a walker around the house. He is still walking more than half a mile several days a week. He is working on getting up out of a chair without using his arms so that he can have his shoulder addressed. On clinical exam he stands in neutral sagittal and coronal balance. He has near normal power in his quadriceps. Overall I think he is doing quite well. X-rays look good. He will continue with his activities as tolerated. I will see him back in 3 months time. Mahesh Small MD documented in this encounter [facility] 11-17-2023 History of Present illness Narrative Associated Order(s): Large Joint Arthro/Inj: R glenohumeral; Large Joint Arthro/Inj: L glenohumeral Post-Procedure Diagnose(s): Tendinitis of right rotator cuff; Rotator cuff tendinitis, left; Primary osteoarthritis of both shoulders; Biceps tendinitis of left shoulder; Biceps tendinitis of right upper extremity SHOULDER/ELBOW INITIAL CONSULT SHOULDER/ELBOW ESTABLISHED VISIT SERVICE DATE: 11/17/2023 PCP: Armando Richards MD CHIEF COMPLAINT: Follow up Bilateral Shoulders R >L SUBJECTIVE HISTORY OF PRESENT ILLNESS: 78 year old male had CSI w/ Dr. Hardy in February with minimal relief. R worse than left. Lumbar surgery August 2023. Pain at its worst up to 9/10 at night. 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 DULoxetine (CYMBALTA) 30 mg capsule Take 30 mg by mouth. cyclobenzaprine (FLEXERIL) 5 mg tablet Take 5 mg by mouth three times a day. gabapentin (NEURONTIN) 300 mg capsule Take 1 capsule by mouth three times daily. Melatonin 5 mg cap Take 5 mg by mouth. metFORMIN (GLUCOPHAGE) 500 mg tablet Take 500 mg by mouth. tamsulosin (FLOMAX) 0.4 mg Take 0.4 mg by mouth. oxyCODONE-acetaminophen (PERCOCET) 5-325 mg tablet Take by mouth. celecoxib (CELEBREX) 100 mg capsule Take by mouth. (Patient not taking: Reported on 10/10/2023) OBJECTIVE Ht 5' 8 (1.73m) Wt 177 lb (80.3kg) BMI 26.92 kg/(m^2). PHYSICAL EXAMINATION: Alert and oriented x3, ambulates easily to exam table without assistance Painless neck ROM in all planes. Negative Spurling's. No radiating numbness or tingling past elbows. No visibile head, eyes, ear, neck, throat deformities R Shoulder 80/10/SIJ L Shoulder 80/0/SIJ Speeds +++ ER 5/5 Jobes ++ Axillary, Long Thoracic, CN XI, Median, Ulnar, Radial, musculocutaneous nerves intact to motor and sensation. Fingers warm and well perfused, BCR< 2sec. Radial Pulse 2+ RADIOGRAPHIC RESULTS: Imaging was personally reviewed by myself today XR of Bilateral Shoulders today show severe GHOA. Medialization of joint line ASSESSMENT Bilateral GHOA, RC tendinitis PLAN DIAGNOSIS: (M19.011, M19.012) Primary osteoarthritis of both shoulders (primary encounter diagnosis) (M75.21) Biceps tendinitis of right upper extremity (M75.22) Biceps tendinitis of left shoulder (M75.81) Tendinitis of right rotator cuff (M75.82) Rotator cuff tendinitis, left Bilateral glenohumeral arthritis. Still on a walker today. Discussed continued nonoperative management till he gets better leg strength. I am worried that he may get a setback postoperatively. Will plan to be for reverse shoulder replacement with a larger sphere due to his balance and potential walker usage. We elected to proceed with a bilateral glenohumeral injection. Good pain relief. He will follow-up me in 3 to 4 months or longer if needed. Large Joint Arthro/Inj: R glenohumeral Informed Consent Consent Obtained: Verbal Warren Protocol A moment to CARE was completed. SIGN IN Personnel directly involved with the procedure wore the appropriate PPE. Special Equipment: Yes Patient/Surrogate Stated/Verified: Patient name, Date of , Relevant allergies and Intended procedure TIME OUT Intended patient and procedure match the source document(s). Consent documented and matches the intended procedure. Relevant labs, photos, and/or imaging studies have been reviewed. Correct side/site marked and visible. Medications required for procedure verified. No fire risk assessment and interventions applicable. No implant(s) inserted. 11/17/2023 11:36 AM The procedure site was prepped in the usual sterile fashion. Site: R glenohumeral Medications: 80 mg triamcinolone acetonide 40 mg/mL Anesthetics: 5 mL ROPivacaine (PF) 5 mg/mL (0.5 %) Outcome: Tolerated well, no immediate complications Post-injection instructions were reviewed with the patient and the patient voiced understanding of these instructions. SIGN OUT All instruments, equipment, possible retained foreign bodies accounted for. Patient had good pain relief after injection. Large Joint Arthro/Inj: L glenohumeral Informed Consent Consent Obtained: Verbal Warren Protocol A moment to CARE was completed. SIGN IN Sign in communication not applicable due to emergent procedure. Personnel directly involved with the procedure wore the appropriate PPE. Special Equipment: N/A Patient/Surrogate Stated/Verified: Patient name, Date of , Relevant allergies and Intended procedure TIME OUT Intended patient and procedure match the source document(s). Consent documented and matches the intended procedure. Relevant labs, photos, and/or imaging studies have been reviewed. Correct side/site marked and visible. Medications required for procedure verified. No fire risk assessment and interventions applicable. No implant(s) inserted. 11/17/2023 11:36 AM The procedure site was prepped in the usual sterile fashion. Site: L glenohumeral Medications: 80 mg triamcinolone acetonide 40 mg/mL Anesthetics: 5 mL ROPivacaine (PF) 5 mg/mL (0.5 %) Outcome: Tolerated well, no immediate complications Post-injection instructions were reviewed with the patient and the patient voiced understanding of these instructions. SIGN OUT All instruments, equipment, possible retained foreign bodies accounted for. Patient had good pain relief after injection. All questions were answered for patient today, they should not hesitate to call the office with any issues. Medical Decision Making: Medical Decision Making Level: 1 - N/A Hung Jacobsen MD documented in this encounter [facility] 11-17-2023 History of Present illness Narrative Radiology Service Progress Note PATIENT NAME: Tyler Torres DATE OF SERVICE: November 17, 2023 TIME: 10:32 AM PATIENT IDENTITY VERIFICATION COMPLETED USING TWO (2) IDENTIFIERS: Name and Date of confirmed by patient verbally. FALL SCREENING: Has the patient had 2 falls in the last year or 1 fall with injury or currently using an Ambulatory Assistive Device (Walker, Cane, Wheelchair, Crutches, etc.)? Yes, Patient High Risk for Falls What interventions were put in place to prevent falls during this visit? Yellow Falls Risk Wristband Applied PATIENT GENDER DATA: Male PATIENT RELEVANT IMPLANT DATA REVIEWED: Not Applicable PATIENT PRESENTS WITH AN IMPLANTABLE OR ATTACHED TALENT SCOUT: No RADIOLOGY DEPARTMENT: General X-ray: Exam(s) Completed: Upper Extremity X-Ray(s): Shoulder, AP / TRUE AP / AXILLARY bilateral PERIPHERAL IV DATA: Not applicable SIGNED BY: RT Moses(R) November 17, 2023 10:32 AM documented in this encounter [facility] 10-23-2023 Miscellaneous Notes Refill request documented in this encounter [facility] 10-23-2023 Telephone encounter Note Refill request [facility] 10-18-2023 Miscellaneous Notes Refill request documented in this encounter [facility] 10-18-2023 Telephone encounter Note Refill request [facility] 10-10-2023 History of Present illness Narrative Arely is now 6 weeks out from surgery. He is actually doing quite well. He is walking half a mile 6 days a week on the track at the . He is using the walker for prolonged walks. He is now at the point that he is not using the walker for short distances around the house. On clinical exam he stands in neutral sagittal and coronal balance. He has a normal neurologic exam except for some persistent abductor and left quadriceps weakness. Overall I think he is doing quite well. He may now begin to increase his activities as tolerated. I will see him back in 6 weeks time. Mahesh Small MD RETURN PATIENT VISIT Surgery and date: 1. Removal of posterior segmental instrumentation L3 to sacrum. 2. L2 to ilium posterior segmental instrumentation. 3. L5 laminectomy. 4. L5-S1 combined posterolateral and transforaminal lumbar interbody fusion. 08/24/2023 CC: 6-week postop visit HPI: Patient presents for 6-week follow up from above surgery. Reports overall doing well but would like to progress at an even faster rate. Has low back and left leg aching pain. He is currently taking oxycodone twice daily (AM and PM) and flexeril three times daily. He is walking 0.5 miles 6 days a week at the [facility]. He uses a walker. He feels as though he is able to stand more straight. Had prior L L3 nerve injury with prior surgery (at [facility]) that he says caused nerve related pain, this has improved following this most recent surgery. PE: Vitals: None for this visit Incision: fully healed Motor: Full strength BLE except L HF 4 KE 4 and DF 4+ Sensory: Present to light touch throughout, reports increased sensation in L L3 distribution Gait - antalgic, compensating for left leg weakness Imaging: Scoliosis XR 10/10/23: No hardware complications. Improvement in lumbar lordosis compared with preoperative xray (now 45, prior 39). PI 61. A/P: Tyler Torres presents for 6-week postop visit. Overall doing very well. We will see him again for his 3-month postop visit. Madhu Doshi MD Spine Surgery Fellow Marilou Small MD Spine Surgery Attending documented in this encounter [facility] 10-10-2023 History of Present illness Narrative Radiology Service Progress Note PATIENT NAME: Tyler Torres DATE OF SERVICE: October 10, 2023 TIME: 12:49 PM PATIENT IDENTITY VERIFICATION COMPLETED USING TWO (2) IDENTIFIERS: Name and Date of confirmed by patient verbally and Name and Date of confirmed by identification band. FALL SCREENING: Has the patient had 2 falls in the last year or 1 fall with injury or currently using an Ambulatory Assistive Device (Walker, Cane, Wheelchair, Crutches, etc.)? Yes, Patient High Risk for Falls What interventions were put in place to prevent falls during this visit? Yellow Falls Risk Wristband Applied, Instructed Patient to Call for Help if Needed, Offered Assistance with Transfers/Clothing, Instructed Patient to Remain Seated (Not on Exam Table) Until Exam, and Increased Observations by Caregivers PATIENT GENDER DATA: Male PATIENT RELEVANT IMPLANT DATA REVIEWED: Not Applicable PATIENT PRESENTS WITH AN IMPLANTABLE OR ATTACHED TALENT SCOUT: No RADIOLOGY DEPARTMENT: General X-ray: Exam(s) Completed: Spine X-Ray(s): Scoliosis Series PERIPHERAL IV DATA: Not applicable SIGNED BY: RT Robby(R) October 10, 2023 12:49 PM documented in this encounter [facility] 10-10-2023 Miscellaneous Notes Called patient and asked they come in early for an X-ray before appointment with Dr. Small. Gave directions to the imaging department and asked them to check in with Dr. Small after their X-ray. Patient acknowledged understanding. Ling Sheldon CMA documented in this encounter [facility] 10-04-2023 Hospital Discharge instructions Patient Education 10/04/2023 10:57:44 Dietary Guidelines to Help Prevent Kidney Stones Dietary Guidelines to Help Prevent Kidney Stones Kidney stones are deposits of minerals and salts that form inside your kidneys. Your risk of developing kidney stones may be greater depending on your diet, your lifestyle, the medicines you take, and whether you have certain medical conditions. Most people can lower their risks of developing kidney stones by following these dietary guidelines. Your dietitian may give you more specific instructions depending on your overall health and the type of kidney stones you tend to develop. What are tips for following this plan? Reading food labels Choose foods with no salt added or low-salt labels. Limit your salt (sodium) intake to less than 1,500 mg a day. Choose foods with calcium for each meal and snack. Try to eat about 300 mg of calcium at each meal. Foods that contain 200 500 mg of calcium a serving include: ?8 oz (237 mL) of milk, zjwgkyd-tkxbshshqdwm-qruya milk, and calcium-fortifiedfruit juice. Calcium-fortified means that calcium has been added to these drinks. ?8 oz (237 mL) of kefir, yogurt, and soy yogurt. ?4 oz (114 g) of tofu. ?1 oz (28 g) of cheese. ?1 cup (150 g) of dried figs. ?1 cup (91 g) of cooked broccoli. ?One 3 oz (85 g) can of sardines or mackerel. Most people need 1,000 1,500 mg of calcium a day. Talk to your dietitian about how much calcium is recommended for you. Shopping Buy plenty of fresh fruits and vegetables. Most people do not need to avoid fruits and vegetables, even if these foods contain nutrients that may contribute to kidney stones. When shopping for convenience foods, choose: ?Whole pieces of fruit. ?Pre-made salads with dressing on the side. ?Low-fat fruit and yogurt smoothies. Avoid buying frozen meals or prepared deli foods. These can be high in sodium. Look for foods with live cultures, such as yogurt and kefir. Choose high-fiber grains, such as whole-wheat breads, oat bran, and wheat cereals. Cooking Do not add salt to food when cooking. Place a salt shaker on the table and allow each person to add their own salt to taste. Use vegetable protein, such as beans, textured vegetable protein (TVP), or tofu, instead of meat in pasta, casseroles, and soups. Meal planning Eat less salt, if told by your dietitian. To do this: ?Avoid eating processed or pre-made food. ?Avoid eating fast food. Eat less animal protein, including cheese, meat, poultry, or fish, if told by your dietitian. To do this: ?Limit the number of times you have meat, poultry, fish, or cheese each week. Eat a diet free of meat at least 2 days a week. ?Eat only one serving each day of meat, poultry, fish, or seafood. ?When you prepare animal proteins, cut pieces into small portion sizes. For most meat and fish, one serving is about the size of the palm of your hand. Eat at least five servings of fresh fruits and vegetables each day. To do this: ?Keep fruits and vegetables on hand for snacks. ?Eat one piece of fruit or a handful of berries with breakfast. ?Have a salad and fruit at lunch. ?Have two kinds of vegetables at dinner. You may be told to limit foods that are high in a substance called oxalate. These include: ?Spinach (cooked), rhubarb, beets, sweet potatoes, and Azerbaijani chard. ?Peanuts. ?Potato chips, malawian fries, and baked potatoes with skin on. ?Nuts and nut products. ?Chocolate. If you regularly take a diuretic medicine, make sure to eat at least 1 or 2 servings of fruits or vegetables that are high in potassium each day. These include: ?Avocado. ?Banana. ?[place], prune, carrot, or tomato juice. ?Baked potato. ?Cabbage. ?Beans and split peas. Lifestyle Drink enough fluid to keep your urine pale yellow. This is the most important thing you can do. Spread your fluid intake throughout the day. If you drink alcohol: ?Limit how much you have to: ?0 1 drink a day for women who are not . ?0 2 drinks a day for men. ?Know how much alcohol is in your drink. In the [place] one drink equals one 12 oz bottle of beer (355 mL), one 5 oz glass of wine (148 mL), or one 1 oz glass of hard liquor (44 mL). Lose weight if told by your health care provider. Work with your dietitian to find an eating plan and weight loss strategies that work best for you. General information Talk to your health care provider and dietitian about taking daily supplements. Depending on your health and the cause of your kidney stones, you may be told: ?Do not take high-dose supplements of vitamin C (1,000 mg a day or more). ?To take a calcium supplement. ?To take a daily probiotic supplement. ?To take other supplements such as magnesium, fish oil, or vitamin B6. Take cubb-umj-jrgcgay and prescription medicines only as told by your health care provider. These include supplements. What foods should I limit? Limit your intake of the following foods, or eat them as told by your dietitian. Vegetables Spinach. Rhubarb. Beets. Canned vegetables. Pickles. Olives. Baked potatoes with skin. Grains Wheat bran. Baked goods. Salted crackers. Cereals high in sugar. Meats and other proteins Nuts. Nut butters. Large portions of meat, poultry, or fish. Salted, precooked, or cured meats, such as sausages, meat loaves, and hot dogs. Dairy Cheeses. Beverages Regular soft drinks. Regular vegetable juice. Seasonings and condiments Seasoning blends with salt. Salad dressings. Soy sauce. Ketchup. Barbecue sauce. Other foods Canned soups. Canned pasta sauce. Casseroles. Pizza. Lasagna. Frozen meals. Potato chips. [place] Rican fries. The items listed above may not be a complete list of foods and beverages you should limit. Contact a dietitian for more information. What foods should I avoid? Talk to your dietitian about specific foods you should avoid based on the type of kidney stones you have and your overall health. Fruits Grapefruit. The item listed above may not be a complete list of foods and beverages you should avoid. Contact a dietitian for more information. Summary Kidney stones are deposits of minerals and salts that form inside your kidneys. You can lower your risk of kidney stones by making changes to your diet. The most important thing you can do is drink enough fluid. Drink enough fluid to keep your urine pale yellow. Talk to your dietitian about how much calcium you should have each day, and eat less salt and animal protein as told by your dietitian. This information is not intended to replace advice given to you by your health care provider. Make sure you discuss any questions you have with your health care provider. Document Revised: 11/10/2022 Document Reviewed: 11/10/2022 [employer] Patient Education 2022 [employer]. Follow Up Care 05/03/2023 11:32:35 With:Khoi METZ, Olu Reynolds, URL, [facility] Address: [address] [place] [address]- [phone] When: Unknown Comments:1 yr balaji/ ANA/ESTELLE [facility] 09-22-2023 Miscellaneous Notes Refill request documented in this encounter [facility] 09-22-2023 Telephone encounter Note Refill request [facility] 09-21-2023 Miscellaneous Notes Refill request documented in this encounter [facility] 09-21-2023 Telephone encounter Note Refill request [facility] 09-19-2023 History of Present illness Narrative Subjective Patient ID: Tyler Torres is a 78 y.o. male. Comes in for post op check. He is doing better following his most recent back surgery but he has a long way to go. He is getting around with a walker. He still has a significant amount of pain from his back and his generalized osteoarthritis. Remains on metformin and his HbA1c recently was <6%. The following portions of the patient's history were reviewed and updated as appropriate: allergies, current medications, past medical history, past social history, past surgical history, and problem list. Review of Systems Objective Physical Exam Constitutional: Comments: He has aged but appears in no acute distress. BP acceptable. Cardiovascular: Rate and Rhythm: Normal rate and regular rhythm. Pulmonary: Effort: Pulmonary effort is normal. Neurological: Comments: Legs are weak but he is reasonably steady with his walker. Assessment/Plan Medication reviewed. Pain medication use remains appropriate. Specialty follow up reviewed. Follow up here routinely and as needed. Diagnoses and all orders for this visit: Spinal stenosis of lumbar region with neurogenic claudication Type 2 diabetes mellitus without complication, without long-term current use of insulin ([facility]) documented in this encounter [facility] 09-03-2023 Miscellaneous Notes Refill request documented in this encounter [facility] 09-03-2023 Telephone encounter Note Refill request [facility] 08-08-2023 Miscellaneous Notes Refill request [facility] 07-31-2023 History and physical note HISTORY AND PHYSICAL EXAMINATION SERVICE DATE: 07/31/2023 SERVICE TIME: 11:25 AM PRIMARY CARE PHYSICIAN: Sukhdeep Pelletier, DO Assessment/Plan 1. Pre-op exam Surgery 08/24/2023 - TYPE AND SCREEN,30 DAY; Future - CONFIRM BLOOD TYPE; Future - CBC; Future - BASIC METABOLIC PNL; Future - HGB A1C; Future - mupirocin (BACTROBAN) 2 % ointment; two times a day for 5 days. Apply 0.5 inch with cotton swab (Q-tip) to each nostril in the morning and evening for 5 days prior to and including day of surgery. Dispense: 22 g; Refill: 0 - ECG COMPLETE 2. Type 2 diabetes mellitus without complication, without long-term current use of insulin (HCC) Does not take fasting AM blood sugars. Advised patient that blood sugars will be checked day of surgery and must be under 300 in order to proceed with surgery. A1C must be under 9.0 in order to proceed with surgery per PACC guidelines. A1C to be completed today. Continue metformin - BASIC METABOLIC PNL; Future - HGB A1C; Future 3. Former smoker 0.5 x 15 years quit 1992. 4. Chronic obstructive pulmonary disease, unspecified COPD type (HCC) Stable does not require inhalers. Denies cough, wheezing, SOB. METS: Walking around house Do moderate work around the house such as vacuuming, sweeping floors, or carrying in groceries (3.50 METs) Patient denies any chest pain or undue shortness of breath with the above physical activity. ANESTHESIA FINDINGS: Intubation History: No history of difficult intubation Significant Anesthesia Considerations: Slow emergence, numbness bilateral legs down to toes, L>R Airway Exam: General: Normal appearance Mallampati Score is CLASS III ULBT: Unable to perform- denture Neck: Distance from hyoid to mentum during neck extension is at least 3 finger breaths, Limited movement flexion and extension Mouth: Normal tongue size and Mouth opening greater than 2 finger breaths Dentition: Upper denture and Lower denture Airway History: No history of difficult intubation STOP BANG Score: ROMEO does not use CPAP/BiPAP REASON FOR VISIT: Tyler Torres is a 78 year old year old male who is scheduled for DECOMPRESSION LAMINECTOMY INTERBODY FUSION LUMBAR POSTERIOR (PLIF) LEVEL 1 INSERTION INTERBODY BIOMED DEVICE(S) W/ANT INSTR ANCHORING TO DISC SPACE W/INTERBODY FUSION,EA INTERSPACE INSERT SPINE FIXATION DEVICE at the request of Mahesh Ratliff MD for consultation. My final recommendation will be communicated back to the requesting physician by way of shared medical record or letter. The patient has the following: ACTIVE PROBLEM LIST Chronic Right Shoulder Pain Type 2 Diabetes Mellitus Without Complication, Without Long-Term Current Use of Insulin (Hcc) Former Smoker Chronic Obstructive Pulmonary Disease (Hcc) Subjective CHIEF COMPLAINT: back pain HPI: Patient is a 78 year old male presenting for pre-anesthesia consultation. Patient has history of back surgery 09/14/20 and has been having back pain ever since. Patient describes pain as a steady shooting sensation. Rates pain 8/10 with radiation down bilateral legs. Endorses numbness, tingling in both legs down to his toes with the left leg worse than the right leg. Patient has been recommended for above surgery. History reviewed. No pertinent past medical history. PAST SURGICAL HISTORY Procedure Laterality Date COLONOSCOPY SCREENING PAST SURGICAL HISTORY OF 09/14/2020 lumbar surgery PAST SURGICAL HISTORY OF Right cyst removed from back by right shoulder History reviewed. No pertinent family history. SOCIAL HISTORY: Social History Tobacco Use Smoking status: Former Packs/day: 0.50 Years: 15.00 Additional pack years: 0.00 Total pack years: 7.50 Types: Cigarettes Quit date: 1992 Years since quittin.9 Smokeless tobacco: Never Tobacco comments: Quit years ago Substance Use Topics Alcohol use: Yes Alcohol/week: 2.0 standard drinks of alcohol Types: 2 Cans of Beer (12oz) per week Comment: 1 beer 2-3 days a week Drug use: Never MEDICATIONS: Prior to Admission medications as of 07/31/23 1118 Medication Sig Last Dose Taking celecoxib (CELEBREX) 100 mg capsule Take by mouth. Yes gabapentin (NEURONTIN) 300 mg capsule Take 1 capsule by mouth three times daily. Yes HYDROcodone-acetaminophen (NORCO) 5-325 mg per tablet hydrocodone 5 mg-acetaminophen 325 mg tablet Yes Melatonin 5 mg cap Take 5 mg by mouth. Yes metFORMIN (GLUCOPHAGE) 500 mg tablet Take 500 mg by mouth. Yes tamsulosin (FLOMAX) 0.4 mg Take 0.4 mg by mouth. Yes mupirocin (BACTROBAN) 2 % ointment two times a day for 5 days. Apply 0.5 inch with cotton swab (Q-tip) to each nostril in the morning and evening for 5 days prior to and including day of surgery. No medication comments found. CURRENT ALLERGIES: ALLERGIES Allergen Reactions Simvastatin Unknown COVID VACCINATION STATUS: Covid Immunization Dates Overdue - Covid-19 Vaccine (2022-) Overdue since 04/14/2023 06/09/2022 Imm Admin: COVID-19 vaccine, age 12+ yr, bivalent (PFIZER-BIONTECH) 12/31/2021 Imm Admin: COVID-19 original vaccine, age 12+ yr, monovalent (PFIZER-BIONTECH - LI TOP) 06/12/2021 Imm Admin: COVID-19 original vaccine, age 12+ yr, monovalent (PFIZER-BIONTECH - PURPLE TOP) 10/09/2020 Imm Admin: COVID-19 original vaccine, full dose, monovalent (MODERNA) 09/11/2020 Imm Admin: COVID-19 original vaccine, full dose, monovalent (MODERNA) Only the first 5 history entries have been loaded, but more history exists. REVIEW OF SYSTEMS: PAIN ASSESSMENT: Pain Pain Level: 8 Pain Location: Back-Lower (shoulder legs, all over body) Description: (tingling, steady pain shooting. just nerve pain.) Duration Amount of Time: 24 Duration Units: Years Frequency: Continuous Intervention/Comfort measure: (pain pills in am and pm helps a little) General: No weight loss, malaise or fevers. Neuro: No history of TIA's, stroke, DOCUMENT PROCESSING SPECIALIST tumor, impaired sensorium, hemiplegia, paraplegia or quadraplegia. No neurological symptoms or problems. Respiratory:+COPD Negative for Bronchitis, Current cough, Daily bronchodilator use for previous 3 months, Dyspnea, Home O2 Cardiovascular: No history of HTN requiring medication, no history of angina, CHF, [place], cardiac surgery or stents. Denies rest pain, gangrene or revascularization/amputation for PVD. No history of cardiovascular symptoms or problems. GI: No history of GI symptoms or problems. No history of esophageal varices, recent ascites, or ETOH greater than 2 drinks per day. : No history of dysuria, frequency or incontinence,, stones or chronic kidney disease Endocrine: Diabetes Mellitus on oral agent Denies thyroid problems or disorders. Hematology: No history of bleeding or clotting disorder. Pt is not taking anti-coagulation or platelet medications. No history of hematological symptoms or problems. Oncology: No history of CA metastasis, chemo within 30 days, or radiotherapy within 90 days. Has not lost 10% of body wt in 6 months. No history of oncological symptoms or problems. Psych: No history of psychiatric symptoms or problems. Musculoskeletal: See HPI Skin: Negative for lesions, rash and itching. Objective PHYSICAL EXAM: VITALS: BP 144/96 Pulse 97 Temp (Src) 98.6 (Core) Resp 20 Ht 5' 8 (1.73m) Wt 179 lb (81.2kg) SpO2 100% BMI 27.22 kg/(m^2). General: Alert and oriented, No acute distress Skin: Normal color, no rash, no lesions. HEENT: EOM, pupils equal, round and reactive. Cardiovascular: Normal S1 & S2, no rubs, murmurs or gallops. No JVD. Pulse regular. No carotid bruits appreciated. Lungs: Normal breath sounds, no wheezes or crackles. Abdomen: Soft, non-tender, no rigidity., Positive bowel sounds Extremities: No deformity, no edema or tenderness, no joint swelling or clubbing. Neurological: Normal cognition and motor skills. Pulses: Carotid and radial pulses normal +2. Diagnostic tests reviewed for today's visit: Lab Value Units Date High Low HB No results within date range. HCT No results within date range. WBC No results within date range. PLT No results within date range. NA No results within date range. K No results within date range. GLUC No results within date range. BUN No results within date range. CREAT No results within date range. PTSEC No results within date range. INR No results within date range. APTT No results within date range. ALT No results within date range. AST No results within date range. TBILI No results within date range. TSH No results within date range. Lab Value Units Date High Low HCGQT No results within date range. UHCG No results within date range. HCG, BODY* No results within date range. Lab Value Units Date High Low ABORHD No results within date range. ABSCREEN No results within date range. No results found for: HBA1C All in Epic Most recent EK07/31/2023 preliminary Sinus rhythm with occasional premature ventricular complexes Left axis deviation Voltage criteria for left ventricular hypertrophy Abnormal ECG PLAN This patient is optimally prepared for surgery pending LABS. CONSULTS: Patient does not require consults for optimization at this time. The Following Tests/Procedures Have Been Initiated: Orders Placed This Encounter CBC Standing Status: Future Standing Expiration Date: 10/30/2023 BMP Standing Status: Future Standing Expiration Date: 10/30/2023 HGB A1C Standing Status: Future Standing Expiration Date: 10/30/2023 Type and Screen, 30 day Standing Status: Future Standing Expiration Date: 10/30/2023 Confirm Blood Type Standing Status: Future Standing Expiration Date: 10/30/2023 Order Specific Question: Did Blood Bank direct you to place this order: Answer: No - Presurgical Workflow mupirocin (BACTROBAN) 2 % ointment Sig: two times a day for 5 days. Apply 0.5 inch with cotton swab (Q-tip) to each nostril in the morning and evening for 5 days prior to and including day of surgery. Dispense: 22 g Refill: 0 ECG (IN OFFICE) EKG Order Comments: Ordered by an unspecified provider Planned Anesthetic: Per anesthesia choice Instructions Given to Patient: Instructions located in the after visit summary. Patient given verbal and written preop instructions and voices comprehension and compliance. SIGNATURE: Aline Jones PA-C PATIENT NAME: Tyler Torres DATE: 07/31/2023 TIME: 11:39 AM documented in this encounter [facility] 07-25-2023 Instructions Aline Jones PA-C - 07/25/2023 1:34 PM EST PATIENT PREOPERATIVE INSTRUCTIONS Mahesh Small MD has scheduled you for your procedure at this surgery center: [facility]: [phone] --[address] [address]. On your scheduled day of surgery, please report to Patient Registration, ground floor Please read below carefully for your personalized instructions. Arrival Time for Surgery: - The Surgery Center or hospital where you are having surgery will call the afternoon before surgery (or Monday for Monday surgery) with a scheduled arrival time. - If you have not heard by 4 pm, please contact the surgery center above. Please be aware that emergency situations arise, which may delay or change your surgical time. If this happens, we will notify you as soon as possible and regret any inconvenience. Dietary Restrictions: - No solid food after midnight. - You may have 12 ounces of clear liquids (water, clear juices such as apple juice or gatorade, carbonated beverages, clear tea, black coffee, jello) until 2 hours before scheduled arrival at facility. Medications: Unless instructed differently below, stay on all of your medications until your surgery. Approved medications to take the morning of surgery with a sip of water: flomax Is Patient Diabetic:Yes Preoperative Instructions for Patient's with Diabetes Mellitus Diabetic Medication Instructions:Please take the following meds at your usual dose the day before surgery. DO NOT TAKE THE MORNING OF SURGERY; Trajenta, Metformin, Actos/Pioglitazone and Amaryl/Glimepiride. Insulin Medication Instructions:N/A - Please continue your current pain medications. Acetaminophen (Tylenol), gabapentin (Neurontin), Hydrocodone-acetaminophen ([place]) If you take any medications for erectile dysfunction-Cialis (Tadalafil), Levitra, Staxyn (Vardenafil) Viagra (Sildenenafil please do not take these for 48 hours before surgery. If you start any new medications after today's visit, please contact the surgeon's office. Blood Thinning Medications: - Stop NSAIDS (Ibuprofen, Advil, Aleve, Motrin, Celebrex, Mobic, etc.) 7 days before surgery, as directed by your surgeon. - Stop Aspirin 7 days before surgery, as directed by your surgeon. - Stop Vitamin E, ALL multi-vitamins, herbals and dietary supplements 7 days before surgery. - You may take Tylenol (Acetaminophen) or any of your pain medications that do not contain aspirin or NSAIDS as needed. Important Reminders: - Use nasal ointment for 5 days before and day of surgery in both nostril 2 times per day. - Candy, mints, and tobacco products are NOT permitted the morning of surgery. - Hearing aids, dentures and glasses may be worn the morning of surgery. - NO jewelry, body piercings, makeup, hairpins or contacts are to be worn the day of surgery. If you develop symptoms such as a fever, cold, or flu, or have other changes to your health within TWO DAYS of scheduled surgery or the morning of surgery, please contact the surgery center above. Personal Belongings: -Please have photo ID and insurance cards. -If you do not have a copy of advance directives on file with us, please bring a copy with you on the day of surgery. - Leave ALL valuables and money at home or with family members. For Outpatient Procedures: - YOU MUST HAVE A RESPONSIBLE SOCIAL SCIENCE ANALYST TAKE YOU HOME. A CORPORATE COMMUNICATIONS MANAGER OR SOFTWARE DEVELOPER CONSULTANT CANNOT BE MADE A RESPONSIBLE SOCIAL SCIENCE ANALYST. - We recommend that a responsible person stays with you overnight to take care of you. - You cannot stay in a hotel alone after outpatient surgery. You will not be permitted to have your surgery, if you do not have someone to take care of you. If you already have an Advance Directive, please fax a copy to [phone] or email to for it to be added to your chart. If you do not have an Advance Directive, you can find the appropriate form and more information at [email or web address]. We recommend that you complete the Advance Directive form found on the website and bring it with you the day of your surgery. It can be witnessed and scanned into your chart that day. Aline Jones PA-C documented in this encounter [facility] 07-21-2023 Miscellaneous Notes Neuro SPINE CARE COORDINATION QUICK NOTE Spoke with patient and answered all questions. Tyler Torres is calling R Jose Small MD today with concern regarding upcoming surgery. Patient has a few questions prior to surgery and would like a return call. No chief complaint on file. Patient has been identified by name and birthdate. Duration of symptoms: Person calling: self Call patient at: at home and , it is OK to leave message [phone] (home) [phone] (cell) Was an appointment scheduled: Closing statement: Harmony Youngblood documented in this encounter [facility] 05-04-2023 Procedure note [facility] 05-03-2023 Hospital Discharge instructions Patient Education 05/03/2023 11:22:38 Dietary Guidelines to Help Prevent Kidney Stones Dietary Guidelines to Help Prevent Kidney Stones Kidney stones are deposits of minerals and salts that form inside your kidneys. Your risk of developing kidney stones may be greater depending on your diet, your lifestyle, the medicines you take, and whether you have certain medical conditions. Most people can lower their chances of developing kidney stones by following the instructions below. Your dietitian may give you more specific instructions depending on your overall health and the type of kidney stones you tend to develop. What are tips for following this plan? Reading food labels Choose foods with no salt added or low-salt labels. Limit your salt (sodium) intake to less than 1,500 mg a day. Choose foods with calcium for each meal and snack. Try to eat about 300 mg of calcium at each meal. Foods that contain 200 500 mg of calcium a serving include: ?8 oz (237 mL) of milk, ewyejig-xtuurtlyacge-xsrcc milk, and calcium-fortifiedfruit juice. Calcium-fortified means that calcium has been added to these drinks. ?8 oz (237 mL) of kefir, yogurt, and soy yogurt. ?4 oz (114 g) of tofu. ?1 oz (28 g) of cheese. ?1 cup (150 g) of dried figs. ?1 cup (91 g) of cooked broccoli. ?One 3 oz (85 g) can of sardines or mackerel. Most people need 1,000 1,500 mg of calcium a day. Talk to your dietitian about how much calcium is recommended for you. Shopping Buy plenty of fresh fruits and vegetables. Most people do not need to avoid fruits and vegetables, even if these foods contain nutrients that may contribute to kidney stones. When shopping for convenience foods, choose: ?Whole pieces of fruit. ?Pre-made salads with dressing on the side. ?Low-fat fruit and yogurt smoothies. Avoid buying frozen meals or prepared deli foods. These can be high in sodium. Look for foods with live cultures, such as yogurt and kefir. Choose high-fiber grains, such as whole-wheat breads, oat bran, and wheat cereals. Cooking Do not add salt to food when cooking. Place a salt shaker on the table and allow each person to add his or her own salt to taste. Use vegetable protein, such as beans, textured vegetable protein (TVP), or tofu, instead of meat in pasta, casseroles, and soups. Meal planning Eat less salt, if told by your dietitian. To do this: ?Avoid eating processed or pre-made food. ?Avoid eating fast food. Eat less animal protein, including cheese, meat, poultry, or fish, if told by your dietitian. To do this: ?Limit the number of times you have meat, poultry, fish, or cheese each week. Eat a diet free of meat at least 2 days a week. ?Eat only one serving each day of meat, poultry, fish, or seafood. ?When you prepare animal protein, cut pieces into small portion sizes. For most meat and fish, one serving is about the size of the palm of your hand. Eat at least five servings of fresh fruits and vegetables each day. To do this: ?Keep fruits and vegetables on hand for snacks. ?Eat one piece of fruit or a handful of berries with breakfast. ?Have a salad and fruit at lunch. ?Have two kinds of vegetables at dinner. Limit foods that are high in a substance called oxalate. These include: ?Spinach (cooked), rhubarb, beets, sweet potatoes, and Azerbaijani chard. ?Peanuts. ?Potato chips, malawian fries, and baked potatoes with skin on. ?Nuts and nut products. ?Chocolate. If you regularly take a diuretic medicine, make sure to eat at least 1 or 2 servings of fruits or vegetables that are high in potassium each day. These include: ?Avocado. ?Banana. ?[place], prune, carrot, or tomato juice. ?Baked potato. ?Cabbage. ?Beans and split peas. Lifestyle Drink enough fluid to keep your urine pale yellow. This is the most important thing you can do. Spread your fluid intake throughout the day. If you drink alcohol: ?Limit how much you use to: ?0 1 drink a day for women who are not . ?0 2 drinks a day for men. ?Be aware of how much alcohol is in your drink. In the [place] one drink equals one 12 oz bottle of beer (355 mL), one 5 oz glass of wine (148 mL), or one 1 oz glass of hard liquor (44 mL). Lose weight if told by your health care provider. Work with your dietitian to find an eating plan and weight loss strategies that work best for you. General information Talk to your health care provider and dietitian about taking daily supplements. You may be told the following depending on your health and the cause of your kidney stones: ?Not to take supplements with vitamin C. ?To take a calcium supplement. ?To take a daily probiotic supplement. ?To take other supplements such as magnesium, fish oil, or vitamin B6. Take vthc-qtt-pxhnbjl and prescription medicines only as told by your health care provider. These include supplements. What foods should I limit? Limit your intake of the following foods, or eat them as told by your dietitian. Vegetables Spinach. Rhubarb. Beets. Canned vegetables. Pickles. Olives. Baked potatoes with skin. Grains Wheat bran. Baked goods. Salted crackers. Cereals high in sugar. Meats and other proteins Nuts. Nut butters. Large portions of meat, poultry, or fish. Salted, precooked, or cured meats, such as sausages, meat loaves, and hot dogs. Dairy Cheese. Beverages Regular soft drinks. Regular vegetable juice. Seasonings and condiments Seasoning blends with salt. Salad dressings. Soy sauce. Ketchup. Barbecue sauce. Other foods Canned soups. Canned pasta sauce. Casseroles. Pizza. Lasagna. Frozen meals. Potato chips. Puerto Rican fries. The items listed above may not be a complete list of foods and beverages you should limit. Contact a dietitian for more information. What foods should I avoid? Talk to your dietitian about specific foods you should avoid based on the type of kidney stones you have and your overall health. Fruits Grapefruit. The item listed above may not be a complete list of foods and beverages you should avoid. Contact a dietitian for more information. Summary Kidney stones are deposits of minerals and salts that form inside your kidneys. You can lower your risk of kidney stones by making changes to your diet. The most important thing you can do is drink enough fluid. Drink enough fluid to keep your urine pale yellow. Talk to your dietitian about how much calcium you should have each day, and eat less salt and animal protein as told by your dietitian. This information is not intended to replace advice given to you by your health care provider. Make sure you discuss any questions you have with your health care provider. Document Revised: 04/11/2022 Document Reviewed: 04/11/2022 [employer] Patient Education 2022 [employer]. Follow Up Care 03/09/2023 12:13:17 With:Khoi METZ, MILTON Watts, [facility] Address: When:Within 6 Month(s) Comments:Collin and ESTELLE [facility] 03-13-2023 History of Present illness Narrative PT Only. Injection last week Hung Hardy D.O. [facility] Orthopaedic and Rheumatologic Deliverer Outside, [facility] Program Team Physician, [facility] [employer] Consulting Physician, Loiza Marya Bartlett, Manager Of Selection And Assessment [phone] documented in this encounter [facility] 03-13-2023 History of Present illness Narrative Episode Visit Count: 1 Therapist That Will Accept/Oversee The Plan Of Care: Anya Start of Care Date: 03/13/23 Onset Date: 03/08/23 (brisement) Plan of Care Certification Date: 03/13/23 Next Certification Due Date: 05/12/23 Patient Identified by Name and Date of : Yes REHABILITATION AND SPORTS THERAPY PHYSICAL THERAPY EVALUATION PLAN OF CARE: Assessment: Tyler Torres presents with chief complaint of rt sh pain and limited ROM/use that interferes with reaching overhead, use hand with arm at shoulder level, reaching behind back, physical activities, dressing, grooming, rising from a chair . He presents with impairments in ADL's, independence in exercise, overall function, range of motion, strength, and symptom management. PROMIS (Patient-Reported Outcomes Measurement Information System) scores were reviewed and physical function domain identified as a rehabilitation concern. Prognosis for therapy is Fair due to: clinical presentation, limited tolerance to activity . Significant creptius with PROM and AROM all planes rt sh. 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 This will likely continue to present issues for pt but some PT may help reduce pain and improve some function He will benefit from skilled therapy services to meet the goals established for this plan of care as noted below. Goals for Episode of Care: created on 03/13/23 through 05/12/23 [place] in home exercise program. Perform dressing and grooming with decreased report of symptoms/pain in 4 weeks. Increase ROM of AROM elevation improve 25 degrees and IR to L1 for ADLs Patient Goals: better use rt sh Planned Interventions, Frequency, and Duration: Current Frequency: 1x every other week Duration: 8 weeks Total Number of Visits Planned: 4 Planned Treatment Interventions: Therapeutic exercise (23896), Manual therapy (28876), Self-detention management (57229), Patient/Family/Caregiver Education PLAN FOR NEXT VISIT: Transfer closer to home for mobility to AROM progression to tolerance. Patient demonstrates good understanding of plan of care and treatment. The above goals and plan of care were discussed and agreed upon by patient/family. Transfer of Care Due To: Closer to Home, Patient Preference Patient transferring care to: will call or message fax number to closer location ( [facility]) SUBJECTIVE: Tyler Torres is a 78 year old male seen today for Rt shoulder pain /OA. Sore with using it alot to rise from chairs and toilet. 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 Hard to lift left leg since spine surgery Injection last week was for brisement. Come today to get stretched Patient Goals: better use rt sh Functional Limitations: reaching overhead, use hand with arm at shoulder level, reaching behind back, physical activities, dressing, grooming, rising from a chair Relevant History Past Relevant Medical Conditions: Arthritis, Diabetes Past Relevant Surgical Conditions: Spine fusion - Lumbar (back surgery 1/12 years failed, getting revision with Dr Small in winter) Right or Left Handed: Right Employment: Retired Home Environment Patient Lives With: Significant Other Intake Information: Prescription present Previous Treatment: Injections Falls Interview: Uses an assistive device, Fall without injury in the last year Falls Intervention: Instructed patient on safety and use of assistive device and awareness in regards to falls prevention. Pain: Pain Pain Level: 8 (0 at rest) Pain Location: Shoulder - Right Description: Sore, Sharp Frequency: With movement, Intermittent Detailed Pain Score: Yes Worst Pain Level: 8 Best Pain Level: 0 Post Treatment Pain Post Treatment Pain Level: No Change PROMIS Scales Higher is Better 03/12/2023 01/29/2023 12/09/2022 Phys Func - Score 29 (severe dysfunction) 32 (moderate dysfunction) 32 (moderate dysfunction) Phys Func - Percentile 2 % 4 % 4 % Self-Eff Symptom - Score 31 (Low) - - Self-Eff Symptom - Percentile 3 % - - T-scores: mean of general population = 50. 5 points is clinically meaningfully difference Percentiles provide an indication of how the patient's score ranks in relation to the general population. Higher percentile rankings indicate better function/quality of life. 50th percentile is the average of the general population and indicates half of respondents had a worse score. OBJECTIVE MEASURES WITH LEVEL OF FUNCTION: UE AROM R Shoulder Flex: 100 Degrees R Shoulder ABduction: 69 Degrees (crepitus) R Shoulder Internal Rotation (Functional): rt iliac crest posteriorly R Shoulder External Rotation: 21 Degrees (0 abd) L Shoulder Flex: 145 Degrees L Shoulder ABduction: 118 Degrees L Shoulder Internal Rotation (Functional): L2 L Shoulder External Rotation: 35 Degrees (0 abb) UE PROM R UE PROM: supine R Shoulder Flex: 140 Degrees (crepitus) R Shoulder ABduction: 125 Degrees (creptitus) R Shoulder Internal Rotation: 25 Degrees (at 45 crepitus) R Shoulder External Rotation: 40 Degrees (at 45 crepitus) Special Tests - Shoulder Shoulder Special Tests: Comments Shoulder Special Tests Comments: Bear hug neg,empty can + gait walker, sit to stand independent with UE help Education: Education Learning Preferences: Demonstration, Explanation, Performance, Printed Materials Barriers: Reading Comprehension Learning/educational needs: Plan of Care, Posture, Home exercise program Education Provided: Yes, see treatment interventions for education provided Education Provided To: Patient, Other: See Comment (girlfriend) Education Mode/Type: Demonstration, Explanation/Discussion, Literature/Printed Materials, Performance Response to Education/Teach Back: States/Identifies, Return Demonstration TREATMENT: PT Treatment Interventions: Therapeutic Exercise, Manual Therapy, Self-Senior Care Management Evaluation Evaluation Therapeutic Exercise: 1: atempted various ROM exs with and without cane , supine, s/l etc finally issued: 2: * scap retraction B 15x 3: * table slide flexion 10x 5 sec (B on towel slide ( cue no LBP)) 4: * table slide scaption 10x ( to move towards abd over time) 10x 5sec 5: * Standing cane AAROM ext 10x, and IR 10x 6: *Supine cane AAROM flexion 5x (start HEP 1x/day and ramp up to 2x/day, if no owrse will start PT closer to home) 7: practiced sit to stand to reduce rt sh puhs Skilled Intervention: Patient was educated in proper exercise technique and purpose for exercises. Reviewed and educated patient on additions/changes for home exercise program as above (*). Skilled judgment was provided in selection of appropriate interventions. Provided written instruction for home exercise program to facilitate proper performance and compliance. Correct performance of therapeutic exercises was facilitated with verbal, visual, and tactile cuing. Additional time necessary for education due to not returning. Educated patient on rationale for performing exercises in regards to increase ease of ADL and ROM and function . Manual Therapy: 1: GH distractionin supine and scapular ROM in s/l 2: PROM and STM in all planes attempting to minimize crepitus Skilled Intervention: Manual skills to improve joint mobility, ROM, and decrease pain. Utilized anatomy knowledge of the therapist, and assessment of patient's response to intervention. Self-Senior Care Management: 1: dressing shirt on off 2: Education on POC, possible outcomes, 3: Using heat prior and ice after ex, no pain > 4/10 during exs 4: sitting on raised cushion to assist rising Skilled Intervention: Reviewed patient specific diagnosis in relation to activities of daily living/home management. Activity progression based on professional judgement. Billing * Evaluation Moderate Complexity: 1 Unit Therapeutic Exercise Treatment Minutes: 16 Manual TherapyTreatment Minutes: 14 Self-Care/Home Management Treatment Minutes: 13 Total Treatment Time Minutes (timed/untimed): 65 Session Start Time : 1155 Session Stop Time : 0100 Yue Joyner PT documented in this encounter [facility] 03-09-2023 Hospital Discharge instructions Patient Education 03/09/2023 12:02:32 Dietary Guidelines to Help Prevent Kidney Stones Dietary Guidelines to Help Prevent Kidney Stones Kidney stones are deposits of minerals and salts that form inside your kidneys. Your risk of developing kidney stones may be greater depending on your diet, your lifestyle, the medicines you take, and whether you have certain medical conditions. Most people can lower their chances of developing kidney stones by following the instructions below. Your dietitian may give you more specific instructions depending on your overall health and the type of kidney stones you tend to develop. What are tips for following this plan? Reading food labels Choose foods with no salt added or low-salt labels. Limit your salt (sodium) intake to less than 1,500 mg a day. Choose foods with calcium for each meal and snack. Try to eat about 300 mg of calcium at each meal. Foods that contain 200 500 mg of calcium a serving include: ?8 oz (237 mL) of milk, shrhxme-pmlpicdveajr-extcu milk, and calcium-fortifiedfruit juice. Calcium-fortified means that calcium has been added to these drinks. ?8 oz (237 mL) of kefir, yogurt, and soy yogurt. ?4 oz (114 g) of tofu. ?1 oz (28 g) of cheese. ?1 cup (150 g) of dried figs. ?1 cup (91 g) of cooked broccoli. ?One 3 oz (85 g) can of sardines or mackerel. Most people need 1,000 1,500 mg of calcium a day. Talk to your dietitian about how much calcium is recommended for you. Shopping Buy plenty of fresh fruits and vegetables. Most people do not need to avoid fruits and vegetables, even if these foods contain nutrients that may contribute to kidney stones. When shopping for convenience foods, choose: ?Whole pieces of fruit. ?Pre-made salads with dressing on the side. ?Low-fat fruit and yogurt smoothies. Avoid buying frozen meals or prepared deli foods. These can be high in sodium. Look for foods with live cultures, such as yogurt and kefir. Choose high-fiber grains, such as whole-wheat breads, oat bran, and wheat cereals. Cooking Do not add salt to food when cooking. Place a salt shaker on the table and allow each person to add his or her own salt to taste. Use vegetable protein, such as beans, textured vegetable protein (TVP), or tofu, instead of meat in pasta, casseroles, and soups. Meal planning Eat less salt, if told by your dietitian. To do this: ?Avoid eating processed or pre-made food. ?Avoid eating fast food. Eat less animal protein, including cheese, meat, poultry, or fish, if told by your dietitian. To do this: ?Limit the number of times you have meat, poultry, fish, or cheese each week. Eat a diet free of meat at least 2 days a week. ?Eat only one serving each day of meat, poultry, fish, or seafood. ?When you prepare animal protein, cut pieces into small portion sizes. For most meat and fish, one serving is about the size of the palm of your hand. Eat at least five servings of fresh fruits and vegetables each day. To do this: ?Keep fruits and vegetables on hand for snacks. ?Eat one piece of fruit or a handful of berries with breakfast. ?Have a salad and fruit at lunch. ?Have two kinds of vegetables at dinner. Limit foods that are high in a substance called oxalate. These include: ?Spinach (cooked), rhubarb, beets, sweet potatoes, and Azerbaijani chard. ?Peanuts. ?Potato chips, malawian fries, and baked potatoes with skin on. ?Nuts and nut products. ?Chocolate. If you regularly take a diuretic medicine, make sure to eat at least 1 or 2 servings of fruits or vegetables that are high in potassium each day. These include: ?Avocado. ?Banana. ?[place], prune, carrot, or tomato juice. ?Baked potato. ?Cabbage. ?Beans and split peas. Lifestyle Drink enough fluid to keep your urine pale yellow. This is the most important thing you can do. Spread your fluid intake throughout the day. If you drink alcohol: ?Limit how much you use to: ?0 1 drink a day for women who are not . ?0 2 drinks a day for men. ?Be aware of how much alcohol is in your drink. In the [place] one drink equals one 12 oz bottle of beer (355 mL), one 5 oz glass of wine (148 mL), or one 1 oz glass of hard liquor (44 mL). Lose weight if told by your health care provider. Work with your dietitian to find an eating plan and weight loss strategies that work best for you. General information Talk to your health care provider and dietitian about taking daily supplements. You may be told the following depending on your health and the cause of your kidney stones: ?Not to take supplements with vitamin C. ?To take a calcium supplement. ?To take a daily probiotic supplement. ?To take other supplements such as magnesium, fish oil, or vitamin B6. Take oeuj-hvp-dniqejg and prescription medicines only as told by your health care provider. These include supplements. What foods should I limit? Limit your intake of the following foods, or eat them as told by your dietitian. Vegetables Spinach. Rhubarb. Beets. Canned vegetables. Pickles. Olives. Baked potatoes with skin. Grains Wheat bran. Baked goods. Salted crackers. Cereals high in sugar. Meats and other proteins Nuts. Nut butters. Large portions of meat, poultry, or fish. Salted, precooked, or cured meats, such as sausages, meat loaves, and hot dogs. Dairy Cheese. Beverages Regular soft drinks. Regular vegetable juice. Seasonings and condiments Seasoning blends with salt. Salad dressings. Soy sauce. Ketchup. Barbecue sauce. Other foods Canned soups. Canned pasta sauce. Casseroles. Pizza. Lasagna. Frozen meals. Potato chips. Puerto Rican fries. The items listed above may not be a complete list of foods and beverages you should limit. Contact a dietitian for more information. What foods should I avoid? Talk to your dietitian about specific foods you should avoid based on the type of kidney stones you have and your overall health. Fruits Grapefruit. The item listed above may not be a complete list of foods and beverages you should avoid. Contact a dietitian for more information. Summary Kidney stones are deposits of minerals and salts that form inside your kidneys. You can lower your risk of kidney stones by making changes to your diet. The most important thing you can do is drink enough fluid. Drink enough fluid to keep your urine pale yellow. Talk to your dietitian about how much calcium you should have each day, and eat less salt and animal protein as told by your dietitian. This information is not intended to replace advice given to you by your health care provider. Make sure you discuss any questions you have with your health care provider. Document Revised: 04/11/2022 Document Reviewed: 04/11/2022 [employer] Patient Education 2022 [employer]. Follow Up Care 03/02/2023 10:56:45 With:Khoi METZ, MILTON Watts, URO Address: When: Unknown [facility] 03-08-2023 Note HNO ID: [id number] Author: Hung Hardy, DO Service: ? Author Type: Physician Type: Progress Notes Filed: 03/08/2023 3:59 PM Note Text: [facility] Office Visit Documentation Note [facility] Sports Medicine Orthopaedic and Rheumatologic [place] HISTORY OF PRESENT ILLNESS (HPI) CHIEF COMPLAINT / REASON FOR VISIT SERVICE DATE: March 08, 2023 PCP: No primary care provider on file. Tyler Torres is here today at request of Dr. Hung Jacobsen specifically for consultation of my opinion in regards to the chief complaint listed below. Correspondence will be shared today via the [facility] electronic health record or through regular mail, where applicable. Tyler Torres is a 56 year old male who presents today for a new evaluation of following complaint: Patient presents with: Right Shoulder - New HISTORY OF PRESENT ILLNESS (HPI) PAIN EVALUATION 03/01/2023 1053 Pain Location: Arm-Upper Right Description: Aching;Cramping;Cutting;Radiating;Narendra p;Shooting Duration Amount of Time: 24 Duration Units: Months Frequency: Continuous Intervention/Comfort measure: Medication;Reposition;Positioning with the presenting complaint of New of the Right Shoulder Brief overview: Patient states he had back surgery and had to use arms to lift himself to stand. Patient states it was a few months after surgery that the shoulder started hurting due to this. Patient demonstrated that he has limited ROM Aggravating Factors Does anything make it worse?: over usage, lifting He was last seen in orthopaedic clinic for his shoulder on 12/26/2022 with Hung Jacobsen. Most recent shoulder imaging was completed on 12/26/2022 (XR SHOULDER GENERAL 3V OR MORE AP/TRUE AP/OTHER RIGHT) . PREVIOUS TREATMENTS: Treatments so far have included no medications, physical therapy, injections, bracing, advanced imaging or surgical evaluation. REVIEW OF SYSTEMS ROS: Neurologic: Any numbness or tingling? No Endocrine: Any diagnosis of diabetes? Yes No results found for: HBA1C ALLERGIES ALLERGIES Allergen Reactions Simvastatin Unknown PAST MEDICAL HISTORY No past medical history on file. PHYSICAL EXAMINATION Body Habitus: well nourished and no acute distress Psych: normal Sensation: sensation to light touch is grossly normal bilaterally Skin: Color, texture, turgor normal. No rashes or lesions Swelling: no swelling noted Gait: Normal, the patient did not have trouble getting onto the exam table. ORTHO EXAM: Ortho Exam Poor ROM of ABD/ER/IR R shoulder FLexion to 80 degree. Severe atrophy in the supra fossa. Weakenss of cuff in Supra and Infra noted IMAGING/LABORATORY IMAGING: Final results and radiologist's interpretation, available in the [facility] health record. Images were reviewed with the patient/family members in the office today. My personal interpretation of the performed imaging is chronic degenerative changes. 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 [place] Operator: WERO Transcribe Date/Time: Dec 26 2022 8:26A Dictated by : ANSHUL CHAIREZ MD... ASSESSMENT / PLAN CLINICAL IMPRESSION / ASSESSMENT: CLINICAL IMPRESSION / ASSESSMENT: (M19.011) Glenohumeral arthritis, right (primary encounter diagnosis) (M25.611) Decreased range of motion of right shoulder (M25.511, G89.29) Chronic right shoulder pain RECOMMENDATION / PLAN: Severe OA. Here today from [facility]. Discussed CSI vs OA brisement. OK for CSI high volume today Follow up: 4 months, if relief from CSI Films prior to visit: Written instructions (see patient instructions) and verbal health education given to patient. Patient verbalizes understanding and agrees with the treatment plan. Hung Hardy D.O. [facility] Orthopaedic and Rheumatologic Deliverer Outside, [facility] Team Physician, [facility] [employer] Consulting Physician, Loiza Marya Marti Bradanitra, Manager Of Selection And Assessment [phone] Glenohumeral arthritis, right (primary encounter diagnosis) Decreased range of motion of right shoulder Chronic right shoulder pain Large Joint Arthro/Inj: R shoulder joint Informed Consent Consent Obtained: Verbal Warren Protocol A moment to CARE was completed. SIGN IN Personnel directly involved with the procedure wore the appropriate PPE. Patient/Surrogate Stated/Verified: Patient name, Date of , Relevant allergies and Intended procedure TIME OUT Intended patient and procedure match the source document(s). Consent documented and matches the intended procedure. Relevant labs, photos, and/or imaging studies have been reviewed. Correct side/site marked and visible. Medications required for procedure verified. Fire risk assessed and interventions d (more content not included)... [facility] 03-08-2023 History of Present illness Narrative Associated Order(s): Large Joint Arthro/Inj: R shoulder joint Post-Procedure Diagnose(s): Chronic right shoulder pain; Decreased range of motion of right shoulder; Glenohumeral arthritis, right Images from the original note were not included. [facility] Office Visit Documentation Note [facility] Sports Medicine Orthopaedic and Rheumatologic [place] HISTORY OF PRESENT ILLNESS (HPI) CHIEF COMPLAINT / REASON FOR VISIT SERVICE DATE: March 08, 2023 PCP: No primary care provider on file. Tyler Torres is here today at request of Dr. Hung Jacobsen specifically for consultation of my opinion in regards to the chief complaint listed below. Correspondence will be shared today via the [facility] electronic health record or through regular mail, where applicable. Tyler Torres is a 56 year old male who presents today for a new evaluation of following complaint: Patient presents with: Right Shoulder - New HISTORY OF PRESENT ILLNESS (HPI) PAIN EVALUATION 03/01/2023 1053 Pain Location: Arm-Upper Right Description: Aching;Cramping;Cutting;Radiating;Narendra p;Shooting Duration Amount of Time: 24 Duration Units: Months Frequency: Continuous Intervention/Comfort measure: Medication;Reposition;Positioning with the presenting complaint of New of the Right Shoulder Brief overview: Patient states he had back surgery and had to use arms to lift himself to stand. Patient states it was a few months after surgery that the shoulder started hurting due to this. Patient demonstrated that he has limited ROM Aggravating Factors Does anything make it worse?: over usage, lifting He was last seen in orthopaedic clinic for his shoulder on 12/26/2022 with Hung Jacobsen. Most recent shoulder imaging was completed on 12/26/2022 (XR SHOULDER GENERAL 3V OR MORE AP/TRUE AP/OTHER RIGHT) . PREVIOUS TREATMENTS: Treatments so far have included no medications, physical therapy, injections, bracing, advanced imaging or surgical evaluation. REVIEW OF SYSTEMS ROS: Neurologic: Any numbness or tingling? No Endocrine: Any diagnosis of diabetes? Yes No results found for: HBA1C ALLERGIES ALLERGIES Allergen Reactions Simvastatin Unknown PAST MEDICAL HISTORY No past medical history on file. PHYSICAL EXAMINATION Body Habitus: well nourished and no acute distress Psych: normal Sensation: sensation to light touch is grossly normal bilaterally Skin: Color, texture, turgor normal. No rashes or lesions Swelling: no swelling noted Gait: Normal, the patient did not have trouble getting onto the exam table. ORTHO EXAM: Ortho Exam Poor ROM of ABD/ER/IR R shoulder FLexion to 80 degree. Severe atrophy in the supra fossa. Weakenss of cuff in Supra and Infra noted IMAGING/LABORATORY IMAGING: Final results and radiologist's interpretation, available in the [facility] health record. Images were reviewed with the patient/family members in the office today. My personal interpretation of the performed imaging is chronic degenerative changes. 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 [place] Operator: WERO Transcribe Date/Time: Dec 26 2022 8:26A Dictated by : ANSHUL CHAIREZ MD... ASSESSMENT / PLAN CLINICAL IMPRESSION / ASSESSMENT: CLINICAL IMPRESSION / ASSESSMENT: (M19.011) Glenohumeral arthritis, right (primary encounter diagnosis) (M25.611) Decreased range of motion of right shoulder (M25.511, G89.29) Chronic right shoulder pain RECOMMENDATION / PLAN: Severe OA. Here today from [facility]. Discussed CSI vs OA brisement. OK for CSI high volume today Follow up: 4 months, if relief from CSI Films prior to visit: Written instructions (see patient instructions) and verbal health education given to patient. Patient verbalizes understanding and agrees with the treatment plan. Hung Hardy D.O. [facility] Orthopaedic and Rheumatologic Deliverer Outside, [facility] Team Physician, [facility] [employer] Consulting Physician, Loiza Marya Marti Dhruv, Manager Of Selection And Assessment [phone] Glenohumeral arthritis, right (primary encounter diagnosis) Decreased range of motion of right shoulder Chronic right shoulder pain Large Joint Arthro/Inj: R shoulder joint Informed Consent Consent Obtained: Verbal Warren Protocol A moment to CARE was completed. SIGN IN Personnel directly involved with the procedure wore the appropriate PPE. Patient/Surrogate Stated/Verified: Patient name, Date of , Relevant allergies and Intended procedure TIME OUT Intended patient and procedure match the source document(s). Consent documented and matches the intended procedure. Relevant labs, photos, and/or imaging studies have been reviewed. Correct side/site marked and visible. Medications required for procedure verified. Fire risk assessed and interventions discussed. 03/08/2023 3:59 PM The procedure site was prepped in the usual sterile fashion. Site: R shoulder joint Details:Musculoskeletal ultrasound was utilized to successfully localize placement of the injection needle at the appropriate site. Ultrasound images demonstrating local vasculature and demonstrating injection of solution were saved. Medications: 6 mg betamethasone acetate-betamethasone sodium phosphate 6 mg/mL Anesthetics: 4 mL lidocaine (PF) 10 mg/mL (1 %); 2 mL ROPivacaine (PF) 5 mg/mL (0.5 %) Outcome: Tolerated well, no immediate complications Post-injection instructions were reviewed with the patient and the patient voiced understanding of these instructions. Hung Hardy DO documented in this encounter [facility] 02-09-2023 Miscellaneous Notes Neuro SPINE CARE COORDINATION SURGERY SCHEDULING Patient accepts surgery date of 08/24/[address] Small at [facility]. Planned procedure is removal posterior segmental instrumentation L3 to sacrum, L5-S1 decompression and combined posterolateral and transforaminal lumbar interbody fusion with L3 to ilium posterior segmental instrumentation. PACC will be scheduled by PACC schedulers. Medications reviewed : Yes}. Meds to be stopped prior to surgery : NSAIDS, ASA, and Vitamins and supplements. Additional pre op clearances needed : none. Any implanted devices : No. Transplant History No Patient will get optimization lab work : HgbA1C. Questions answered. Patient verbalizes understanding via teach back. Additional comments : Placed on cancellation list documented in this encounter [facility] 02-02-2023 Procedure note [facility] 01-31-2023 History of Present illness Narrative Tyler has had his CT scan. It shows that he is solidly fused at all levels other than L5-S1. He has halos around the S1 screws. He also has halos around the T12 screws but he has no symptoms in this area. I think this gentleman would benefit from a removal posterior segmental instrumentation L3 to sacrum, L5-S1 decompression and combined posterolateral and transforaminal lumbar interbody fusion with L3 to ilium posterior segmental instrumentation. We had a detailed discussion of the risks, benefits, expected outcomes, options and personnel today. He wishes to proceed. Mahesh Small MD documented in this encounter [facility] 01-18-2023 Evaluation + Plan note Diagnostic Tests PendingUrine Culture 01/18/23 [facility] 01-18-2023 Hospital Discharge instructions Patient Education 01/18/2023 09:51:53 Dietary Guidelines to Help Prevent Kidney Stones Dietary Guidelines to Help Prevent Kidney Stones Kidney stones are deposits of minerals and salts that form inside your kidneys. Your risk of developing kidney stones may be greater depending on your diet, your lifestyle, the medicines you take, and whether you have certain medical conditions. Most people can lower their chances of developing kidney stones by following the instructions below. Your dietitian may give you more specific instructions depending on your overall health and the type of kidney stones you tend to develop. What are tips for following this plan? Reading food labels Choose foods with no salt added or low-salt labels. Limit your salt (sodium) intake to less than 1,500 mg a day. Choose foods with calcium for each meal and snack. Try to eat about 300 mg of calcium at each meal. Foods that contain 200 500 mg of calcium a serving include: ?8 oz (237 mL) of milk, gfhczcw-eylsliidoefu-xbbqt milk, and calcium-fortifiedfruit juice. Calcium-fortified means that calcium has been added to these drinks. ?8 oz (237 mL) of kefir, yogurt, and soy yogurt. ?4 oz (114 g) of tofu. ?1 oz (28 g) of cheese. ?1 cup (150 g) of dried figs. ?1 cup (91 g) of cooked broccoli. ?One 3 oz (85 g) can of sardines or mackerel. Most people need 1,000 1,500 mg of calcium a day. Talk to your dietitian about how much calcium is recommended for you. Shopping Buy plenty of fresh fruits and vegetables. Most people do not need to avoid fruits and vegetables, even if these foods contain nutrients that may contribute to kidney stones. When shopping for convenience foods, choose: ?Whole pieces of fruit. ?Pre-made salads with dressing on the side. ?Low-fat fruit and yogurt smoothies. Avoid buying frozen meals or prepared deli foods. These can be high in sodium. Look for foods with live cultures, such as yogurt and kefir. Choose high-fiber grains, such as whole-wheat breads, oat bran, and wheat cereals. Cooking Do not add salt to food when cooking. Place a salt shaker on the table and allow each person to add his or her own salt to taste. Use vegetable protein, such as beans, textured vegetable protein (TVP), or tofu, instead of meat in pasta, casseroles, and soups. Meal planning Eat less salt, if told by your dietitian. To do this: ?Avoid eating processed or pre-made food. ?Avoid eating fast food. Eat less animal protein, including cheese, meat, poultry, or fish, if told by your dietitian. To do this: ?Limit the number of times you have meat, poultry, fish, or cheese each week. Eat a diet free of meat at least 2 days a week. ?Eat only one serving each day of meat, poultry, fish, or seafood. ?When you prepare animal protein, cut pieces into small portion sizes. For most meat and fish, one serving is about the size of the palm of your hand. Eat at least five servings of fresh fruits and vegetables each day. To do this: ?Keep fruits and vegetables on hand for snacks. ?Eat one piece of fruit or a handful of berries with breakfast. ?Have a salad and fruit at lunch. ?Have two kinds of vegetables at dinner. Limit foods that are high in a substance called oxalate. These include: ?Spinach (cooked), rhubarb, beets, sweet potatoes, and Azerbaijani chard. ?Peanuts. ?Potato chips, malawian fries, and baked potatoes with skin on. ?Nuts and nut products. ?Chocolate. If you regularly take a diuretic medicine, make sure to eat at least 1 or 2 servings of fruits or vegetables that are high in potassium each day. These include: ?Avocado. ?Banana. ?[place], prune, carrot, or tomato juice. ?Baked potato. ?Cabbage. ?Beans and split peas. Lifestyle Drink enough fluid to keep your urine pale yellow. This is the most important thing you can do. Spread your fluid intake throughout the day. If you drink alcohol: ?Limit how much you use to: ?0 1 drink a day for women who are not . ?0 2 drinks a day for men. ?Be aware of how much alcohol is in your drink. In the [place] one drink equals one 12 oz bottle of beer (355 mL), one 5 oz glass of wine (148 mL), or one 1 oz glass of hard liquor (44 mL). Lose weight if told by your health care provider. Work with your dietitian to find an eating plan and weight loss strategies that work best for you. General information Talk to your health care provider and dietitian about taking daily supplements. You may be told the following depending on your health and the cause of your kidney stones: ?Not to take supplements with vitamin C. ?To take a calcium supplement. ?To take a daily probiotic supplement. ?To take other supplements such as magnesium, fish oil, or vitamin B6. Take [id number] and prescription medicines only as told by your health care provider. These include supplements. What foods should I limit? Limit your intake of the following foods, or eat them as told by your dietitian. Vegetables Spinach. Rhubarb. Beets. Canned vegetables. Pickles. Olives. Baked potatoes with skin. Grains Wheat bran. Baked goods. Salted crackers. Cereals high in sugar. Meats and other proteins Nuts. Nut butters. Large portions of meat, poultry, or fish. Salted, precooked, or cured meats, such as sausages, meat loaves, and hot dogs. Dairy Cheese. Beverages Regular soft drinks. Regular vegetable juice. Seasonings and condiments Seasoning blends with salt. Salad dressings. Soy sauce. Ketchup. Barbecue sauce. Other foods Canned soups. Canned pasta sauce. Casseroles. Pizza. Lasagna. Frozen meals. Potato chips. [place] Rican fries. The items listed above may not be a complete list of foods and beverages you should limit. Contact a dietitian for more information. What foods should I avoid? Talk to your dietitian about specific foods you should avoid based on the type of kidney stones you have and your overall health. Fruits Grapefruit. The item listed above may not be a complete list of foods and beverages you should avoid. Contact a dietitian for more information. Summary Kidney stones are deposits of minerals and salts that form inside your kidneys. You can lower your risk of kidney stones by making changes to your diet. The most important thing you can do is drink enough fluid. Drink enough fluid to keep your urine pale yellow. Talk to your dietitian about how much calcium you should have each day, and eat less salt and animal protein as told by your dietitian. This information is not intended to replace advice given to you by your health care provider. Make sure you discuss any questions you have with your health care provider. Document Revised: 04/11/2022 Document Reviewed: 04/11/2022 [employer] Patient Education 2022 [employer]. Follow Up Care 07/06/2022 12:29:16 With:Khoi METZ, MILTON Watts, U[facility] Address: When: Unknown [facility] 12-26-2022 Instructions Hung Jacobsen MD - 12/26/2022 10:08 AM EDT Send me a Agribotst Message after seeing Dr. Small about plans for Spine Surgery Possible Injection with Sports Med Doctors documented in this encounter [facility] 12-26-2022 History of Present illness Narrative SHOULDER/ELBOW INITIAL CONSULT SERVICE DATE: 12/26/2022 PCP: No primary care provider on file. REFERRING PROVIDER: Dr Jose Small CHIEF COMPLAINT: right shoulder pain SUBJECTIVE HISTORY OF PRESENT ILLNESS: 77 year old male, started 6-7 months ago, denies any injury, developed after repetitively using arms to get in/out of bed/chair after lumbar spine surgery approx one year ago, describes as constant, global Patient reports that his lower back and leg pain are worse than his shoulder pain, he is in the process of following up with Dr. 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 [employer] Recreation/Hobbies/Activities: outdoor activities, grass cutting, can't get on his outdoor equipment Pain Best: 3/10, Worst: 8/10 Function (out of 100%): 30 % PROGRESSIVE SYMPTOMS: Pain affecting living situation/ADL's Pain impacting sleep or causing fatigue Pain worsened by overhead activity/reaching Limited PREVIOUS TREATMENT(S): Modified Activity RX NSAIDS for Greater Than 3 Months (Celebrex) Steroid Injections Right Shoulder Was completed one month ago on 11/28/22 at [facility] by pain management provider Dr Sheriff Goode, this was the second time he had an injection, pt/chart unsure if SAS or G/H location, lasted only 1 week Taking [place] twice a day, for shoulder and back pain NECK COMPLAINTS: None Denies any N/T There is no problem list on file for this patient. No past medical history on file. No past surgical history on file. No family history on file. Social History Tobacco Use Smoking status: Former Packs/day: 0.50 Years: 15.00 Pack years: 7.50 Types: Cigarettes Smokeless tobacco: Never Tobacco comments: Quit years ago Substance Use Topics Alcohol use: Yes Alcohol/week: 2.0 standard drinks Types: 2 Cans of Beer (12oz) per week ALLERGIES Allergen Reactions Simvastatin Unknown MEDICATIONS: acetaminophen (TYLENOL ORAL) Take 500 mg by mouth. celecoxib (CELEBREX) 100 mg capsule Take by mouth. gabapentin (NEURONTIN) 300 mg capsule Take 1 capsule by mouth three times daily. HYDROcodone-acetaminophen (NORCO) 5-325 mg per tablet hydrocodone 5 mg-acetaminophen 325 mg tablet Melatonin 5 mg cap Take 5 mg by mouth. metFORMIN (GLUCOPHAGE) 500 mg tablet Take 500 mg by mouth. tamsulosin (FLOMAX) 0.4 mg Take 0.4 mg by mouth. OBJECTIVE There were no vitals taken for this visit. PHYSICAL EXAMINATION: Alert and oriented x3, ambulates easily to exam table without assistance Painless neck ROM in all planes. Negative Spurling's. No radiating numbness or tingling past elbows. No visibile head, eyes, ear, neck, throat deformities Active range of motion is 90/-10/L5, passively 90/0/L5 with significant crepitus and stiffness. AC joint tenderness noted, positive cross body. 4+/5 with pain with empty can, and belly press, 4/5 with pain with resisted external rotation. Unable to tolerate speeds, [place]'s, testing Axillary, Long Thoracic, CN XI, Median, Ulnar, Radial, musculocutaneous nerves intact to motor and sensation. Fingers warm and well perfused, BCR< 2sec. Radial Pulse 2+ RADIOGRAPHIC RESULTS: Imaging was personally reviewed by myself today No fracture or dislocation noted, severe glenoid humeral joint narrowing with frqw-bh-jgsu contact inferiorly with osteophytes, and flattening of the articular surface of the humeral head, with humeral head posterior on the axillary view, mild narrowing with osteophytes at AC joint ASSESSMENT Advanced right shoulder glenohumeral arthritis with AC joint OA PLAN DIAGNOSIS: Advanced right shoulder glenohumeral arthritis with AC joint OA With patient's primary pain being his lower back and legs, we discussed proceeding with spine surgery first, as with any sort of shoulder replacement for which the patient is a candidate for he will need to be nonweightbearing for 3 months postop and will be unable to use a walker. We further discussed that once patient sees Dr. Small and schedule the surgery date, to MyChart message me, and if patient is still having a lot of right shoulder pain, we can coordinate with one of our sports medicine providers to either do a brisement and/or injection under ultrasound guidance, to keep him comfortable during his rehab following spine surgery All questions were answered for patient today, they should not hesitate to call the office with any issues. Medical Decision Making: Medical Decision Making Level: 1 - N/A Hung Jacobsen MD Attending Note I have personally performed a face to face assessment of the patient and have reviewed the DARON note. I performed a substantive portion of the visit including all aspects of the following. My ryan findings include: Severe right glenohumeral arthritis. Surgical intervention would likely be in the form of a reverse shoulder replacement. Discussed the nonweightbearing time. Postoperatively. I recommend he address his back first. If it is nonoperative management we can go ahead and discuss surgical timing. If he is going to have a revision procedure I would prefer to address his shoulder after he is recovered from the spine surgery. He will let me know next plans after he sees Dr. Small Other additions or changes: None Signature: Hung Jacobsen MD Date: 12/26/2022 Time: 11:43 AM documented in this encounter [facility] 12-23-2022 History of Present illness Narrative Radiology Service Progress Note PATIENT NAME: Tyler Torres DATE OF SERVICE: December 23, 2022 TIME: 2:34 PM PATIENT IDENTITY VERIFICATION COMPLETED USING TWO (2) IDENTIFIERS: Name and Date of confirmed by patient verbally and Name and Date of confirmed by identification band. FALL SCREENING: Has the patient had 2 falls in the last year or 1 fall with injury or currently using an Ambulatory Assistive Device (Walker, Cane, Wheelchair, Crutches, etc.)? No PATIENT GENDER DATA: Male PATIENT RELEVANT IMPLANT DATA REVIEWED: Not Applicable RADIOLOGY DEPARTMENT: CT; Exam(s) Completed: Spine PERIPHERAL IV DATA: Not applicable SIGNED BY: RT Nitesh(R) December 23, 2022 2:34 PM documented in this encounter [facility] 12-13-2022 History of Present illness Narrative He returns today. He reports that his leg pain has essentially resolved. His hip flexor and knee extensor strength are also both significantly improved. He is now at a point where neurologically I think it would be reasonable to proceed with potential surgery. For preoperative planning purposes I would like to get a CT to assess the status of his fusions. I will see him back after this is been done. He is also complaining of significant right shoulder pain. He has positive [place] and speeds signs. I have suggested he see Dr. Hung Jacobsen. Mahesh Small MD documented in this encounter [facility] 12-13-2022 History of Present illness Narrative Radiology Service Progress Note PATIENT NAME: Tyler Torres DATE OF SERVICE: December 13, 2022 TIME: 2:31 PM PATIENT IDENTITY VERIFICATION COMPLETED USING TWO (2) IDENTIFIERS: Name and Date of confirmed by patient verbally. FALL SCREENING: Has the patient had 2 falls in the last year or 1 fall with injury or currently using an Ambulatory Assistive Device (Walker, Cane, Wheelchair, Crutches, etc.)? Yes, Patient High Risk for Falls What interventions were put in place to prevent falls during this visit? Yellow Falls Risk Wristband Applied, Instructed Patient to Call for Help if Needed, Offered Assistance with Transfers/Clothing, Instructed Patient to Remain Seated (Not on Exam Table) Until Exam, and Increased Observations by Caregivers PATIENT GENDER DATA: Male PATIENT RELEVANT IMPLANT DATA REVIEWED: Not Applicable RADIOLOGY DEPARTMENT: General X-ray: Exam(s) Completed: Spine X-Ray(s): Lumbar AP / LAT / L5-S1 PERIPHERAL IV DATA: Not applicable SIGNED BY: RT Víctor(R) December 13, 2022 2:31 PM documented in this encounter [facility] 11-28-2022 Evaluation note Encounter Date Diagnosis Assessment Notes Nov, Lumbosacral spondylosis (ICD-10 - M47.817) 77 year old male here for follow up status post bilateral sacroiliac joint injection under fluoroscopic guidance. Patient reports 70-80% pain relief as well as improved walking, standing and daily functions to the area treated, following the procedure. He continues to complain of low back pain today. He also voices continued complaints of pain to the left thigh. He continues taking Oxycodone and Gabapentin with relief and is requesting a refill of these today. Anatomy of spine as well as different treatment options were discussed in detail with patient in regards to patients condition. I encouraged the patient to continue taking medications as prescribed and I will refill his Oxycodone and Gabapentin as he feels this provides an element of relief. Nov, Primary osteoarthritis of right shoulder (ICD-10 - M19.011) Regarding his complaints of right shoulder pain, we can consider repeating the right shoulder & AC joint injection under ultrasound guidance. Risks and benefits of procedure explained to patient; patient verbalizes understanding. He notes he is scheduled with a surgeon whom ordered a MRI for further evaluation of the right shoulder. He can follow up with the surgeon as discussed and we proceed with this injection in the meantime. Nov, Sacroiliitis (ICD-10 - M46.1) Patient reports 70-80% pain relief as well as improved walking, standing and daily functions to the area treated, following the procedure. Nov, Post laminectomy syndrome (ICD-10 - M96.1) If his pain persists or worsens, we can consider other interventional options in the future as he feels the caudal epidural provided moderate relief for a short period of time. Nov, Chronic pain (ICD-10 - G89.29) Follow up after procedure Nov, Other Continue with current treatment plan. [facility] Other 04-06-2023 Miscellaneous Notes* Telephone Encounter - Sonali Mora PA-C - 11/17/2022 2:31 PM EDT XR for lumbar spine AP/Lateral order placed to be completed prior to appointment. Sonali Mora PA-C November 17, 2022 2:32 PM * Telephone Encounter - Amanda Banegas RN - 11/17/2022 11:48 AM EDT Neuro SPINE CARE COORDINATION QUICK NOTE Spoke with patient who has increasing pain in low back radiating down left leg. Follow up appointment scheduled 12/13/2022. Requesting Xray prior to appointment. * Telephone Encounter - Tamera Alan Pss - 11/17/2022 11:38 AM EDT Pt calling and asking if radiology is needed prior to the follow up appt Pt has made for 12/13/[address] 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 He voices complaints of bilateral shoulder pain worse on the right. He also voices complaints of low back pain with radiation to the outer aspect of the left thigh. He feels his pain is negatively impacting his activities of daily living. Anatomy of spine discussed in detail with patient in regards to patients condition. Patient is a candidate for a bilateral sacral lateral nerve block under fluoroscopic guidance. Risks and benefits of procedure explained to patient; patient verbalizes understanding. Nov, Sacroiliitis (ICD-10 - M46.1) Proceed with current treatment plan Nov, Lumbosacral spondylosis (ICD-10 - M47.817) Patient has extensive hardware throughout his lumbar spine. I advised patient that I would be unable to perform a nerve block to the area. Nov, Chronic pain (ICD-10 - G89.29) Follow up after procedure Nov, Primary osteoarthritis of right shoulder (ICD-10 - M19.011) Consider repeating the right shoulder & AC joint injection in the future [facility] Other 03-30-2023 Evaluation note* Encounter Date Diagnosis Assessment Notes Treatment Notes Treatment Clinical Notes Oct, Primary osteoarthritis of right shoulder (ICD-10 - M19.011) [facility] Other 01-31-2023 Evaluation note* Encounter Date Diagnosis Assessment Notes Treatment Notes Treatment Clinical Notes Aug, Primary osteoarthritis of right shoulder (ICD-10 - M19.011) Patient reports 70-8 0% pain relief and improved ROM following procedure. Aug, Sacroiliitis (ICD-10 - M46.1) 77 year old male her e for follow up status post right shoulder and acromioclavicular joint injection under ultrasound guidance. Patient reports 70-80% pain relief and improved ROM following procedure. He continues to complain of residual right shoulder pain. He also complains of low back pain with radiation down the left thigh to the knee. Pertinent imaging of the lumbar spine were reviewed and discussed in detail with the patient which showed L1-S1 fusion with degenerative changes and arthritis below the fusion. Anatomy of spine as well as different treatment options were discussed in detail with patient in regards to patients condition. I recommend we proceed with a bilateral sacroiliac joint injection under fluoroscopic guidance. Risks and benefits of procedure explained to patient; patient verbalizes understanding. Aug, Chronic pain (ICD-10 - G89.29) Continue with curren t treatment plan. Follow up after procedure. Aug, Post laminectomy syndrome (ICD-10 - M96.1) Continue taking medications as prescribed. [facility] Other 01-20-2023 Evaluation note* Encounter Date Diagnosis Assessment Notes Treatment Notes Treatment Clinical Notes Aug, Primary osteoarthritis of right shoulder (ICD-10 - M19.011) 77 year old male here for follow up and medication refill for chronic pain. He voices continued complaints of bilateral shoulder pain, more on the right side. He also voices complaints of low back pain with radiation to the outer aspect of the left thigh to the knee. He feels pain is negatively impacting his ADLs and sleeping pattern. He continues taking Gabapentin, Oxycodone, Duloxetine and Cyclobenzaprine and is requesting a refill of these today. I independently reviewed recent imaging of the rigth shoulder which shows advanced arthritis of the right shoulder as well as mild arthropathy of the AC joint. Different treatment options were discussed in detail with the patient and I recommend we proceed with a right shoulder & AC joint injection under fluoroscopic guidance. Risks and benefits of procedure explained to patient; patient verbalizes understanding. In the meantime, I will refill his Oxycodone and Gabapentin as this provides an element of relief. Aug, Chronic pain (ICD-10 - G89.29) Patient has continued need for Oxycodone. OARRS report processed and reviewed and shows no violations. 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 Oxycodone was refilled today, opioid risk assessment was done as well as pill count. Patient is compliant with opioid medication. The patient denies any opioid related side effects. Aug, Post laminectomy syndrome (ICD-10 - M96.1) In regard to his continued complaints of low back pain, he is requesting to continue physical therapy. I will send another order to [facility] in [place] as requested. In the meantime, I will refill his Cymbalta and Flexeril as he feels this provides an element of relief. [facility] Other 12-28-2022 Evaluation note* Encounter Date Diagnosis Assessment Notes Treatment Notes Treatment Clinical Notes Jul, Post laminectomy syndrome (ICD-10 - M96.1) 77 year old male here for follow up and medication refill for chronic pain. He voices continued complaints of low back pain with radiation down the left thigh to the knee. He feels the low back pain is most bothersome while trying to sleep. He also voices complaints of bilateral shoulder pain, worse on the right. He states he has been getting sudden sharp/stabbing pain in the right shoulder periodically. He is requesting a refill of Oxycodone, Gabapentin and Flexeril today. I discussed different treatment options with patient in regards to patients condition. He does not wish to proceed with injections as it appears that injections have not provided him with significant relief in the past. I encouraged the patient to continue medications as prescribed and I will refill his Gabapentin, Cymbalta and Oxycodone as he feels these provide an element of relief. Jul, Sacroiliitis (ICD-10 - M46.1) Continue taking medications as prescribed. Jul, Scoliosis of lumbar region due to degenerative disease of spine in adult (ICD-10 - M41.86) Continue with current treatment plan. Jul, Chronic pain (ICD-10 - G89.29) Patient has continued need for Oxycodone. OARRS report processed and reviewed and shows no violations. Patient was educated on the risks and benefits of [facility] opioid use. Oxycodone was refilled today, opioid risk assessment was done as well as pill count. Patient is compliant with opioid medication. The patient denies any opioid related side effects. Jul, Right anterior shoulder pain (ICD-10 - M25.511) Regarding his complaints of right shoulder pain, I will order an x-ray to further evaluate his pain. In the future if the pain persists, we can consider a steroid injection or a referral to consult with an orthopedic surgeon. In the meantime, I will prescribe a topical cream to apply to painful areas as tolerated. [facility] Other 11-30-2022 Evaluation note* Encounter Date Diagnosis Assessment Notes Treatment Notes Treatment Clinical Notes Jun, Post laminectomy syndrome (ICD-10 - M96.1) [facility] Other 11-29-2022 Evaluation note* Encounter Date Diagnosis Assessment Notes Treatment Notes Treatment Clinical Notes Jun, Post laminectomy syndrome (ICD-10 - M96.1) 77 year old male here for follow up and medication refill for chronic pain. He voices continued complaints of low back pain with radiation to the left thigh to the knee. He feels most of his back pain ocurrs when he's trying to sleep. He also voices complaints of bilateral shoulder pain, worse on the right. He is requesting a refill of Gabapentin, Cymbalta and Oxycodone today. Anatomy of spine as well as different treatment options were discussed in detail with patient in regards to patients condition. He does not wish to proceed with injections as it appears that injections have not provided him with significant relief. I recommend if the pain is severe that he follow up with his neurosurgeon to discuss surgical options, if applicable. In the meantime, I encouraged the patient to continue medications as prescribed and I will refill his Gabapentin, Cymbalta and Oxycodone as he feels these provide an element of relief. Patient is encouraged to try altering the times he is taking medications to control breakthrough pain. I will also prescribe a muscle relaxer to help control pain at night. Jun, Sacroiliitis (ICD-10 - M46.1) Continue taking medications as prescribed. Jun, Scoliosis of lumbar region due to degenerative disease of spine in adult (ICD-10 - M41.86) Continue with current treatment plan. Jun, Chronic pain (ICD-10 - G89.29) Patient has continued need for Oxycodone. OARRS report processed and reviewed and shows no violations. Patient was educated on the risks and benefits of [facility] opioid use. Oxycodone was refilled today, opioid risk assessment was done as well as pill count. Patient is compliant with opioid medication. The patient denies any opioid related side effects. [facility] Other 11-23-2022 Hospital Discharge instructions Patient Education 07/06/2022 12:26:30 Dietary Guidelines to Help Prevent Kidney Stones Dietary Guidelines to Help Prevent Kidney Stones Kidney stones are deposits of minerals and salts that form inside your kidneys. Your risk of developing kidney stones may be greater depending on your diet, your lifestyle, the medicines you take, and whether you have certain medical conditions. Most people can reduce their chances of developing kidney stones by following the instructions below. Depending on your overall health and the type of kidney stones you tend to develop, your dietitian may give you more specific instructions. What are tips for following this plan? Reading food labels Choose foods with no salt added or low-salt labels. Limit your sodium intake to less than 1500 mg per day. Choose foods with calcium for each meal and snack. Try to eat about 300 mg of calcium at each meal.Foods that contain 200 500 mg of calcium per serving include: ?8 oz (237 ml) of milk, fortified nondairy milk, and fortified fruit juice. ?8 oz (237 ml) of kefir, yogurt, and soy yogurt. ?4 oz (118 ml) of tofu. ?1 oz of cheese. ?1 cup (300 g) of dried figs. ?1 cup (91 g) of cooked broccoli. ?1 3 oz can of sardines or mackerel. Most people need 1000 to 1500 mg of calcium each day. Talk to your dietitian about how much calciumis recommended for you. Shopping Buy plenty of fresh fruits and vegetables. Most people do not need to avoid fruits and vegetables, even if they contain nutrients that may contribute to kidney stones. When shopping for convenience foods, choose: ?Whole pieces of fruit. ?Premade salads with dressing on the side. ?Low-fat fruit and yogurt smoothies. Avoid buying frozen meals or prepared deli foods. Look for foods with live cultures, such as yogurt and kefir. Cooking Do not add salt to food when cooking. Place a salt shaker on the table and allow each person to addhis or her own salt to taste. Use vegetable protein, such as beans, textured vegetable protein (TVP), or tofu instead of meat in pasta, casseroles, and soups. Meal planning Eat less salt, if told by your dietitian. To do this: ?Avoid eating processed or premade food. ?Avoid eating fast food. Eat less animal protein, including cheese, meat, poultry, or fish, if told by your dietitian. To dothis: ?Limit the number of times you have meat, poultry, fish, or cheese each week. Eat a diet free of meat at least 2 days a week. ?Eat only one serving each day of meat, poultry, fish, or seafood. ?When you prepare animal protein, cut pieces into small portion sizes. For most meat and fish, one serving is about the size of one deck of cards. Eat at least 5 servings of fresh fruits and vegetables each day. To do this: ?Keep fruits and vegetables on hand for snacks. ?Eat 1 piece of fruit or a handful of berries with breakfast. ?Have a salad and fruit at lunch. ?Have two kinds of vegetables at dinner. Limit foods that are high in a substance called oxalate. These include: ?Spinach. ?Rhubarb. ?Beets. ?Potato chips and malawian fries. ?Nuts. If you regularly take a diuretic medicine, make sure to eat at least 1 2 fruits or vegetables high in potassium each day. These include: ?Avocado. ?Banana. ?[place], prune, carrot, or tomato juice. ?Baked potato. ?Cabbage. ?Beans and split peas. General instructions Drink enough fluid to keep your urine clear or pale yellow. This is the most important thing you can do. Talk to your health care provider and dietitian about taking daily supplements. Depending on your health and the cause of your kidney stones, you may be advised: ?Not to take supplements with vitamin C. ?To take a calcium supplement. ?To take a daily probiotic supplement. ?To take other supplements such as magnesium, fish oil, or vitamin B6. Take all medicines and supplements as told by your health care provider. Limit alcohol intake to no more than 1 drink a day for non women and 2 drinks a day for men. One drink equals 12 oz of beer, 5 oz of wine, or 1 oz of hard liquor. Lose weight if told by your health care provider. Work with your dietitian to find strategies and an eating plan that works best for you. What foods are not recommended? Limit your intake of the following foods, or as told by your dietitian. Talk to your dietitian about specific foods you should avoid based on the type of kidney stones and your overall health. Grains Breads. Bagels. Rolls. Baked goods. Salted crackers. Cereal. Pasta. Vegetables Spinach. Rhubarb. Beets. Canned vegetables. Pickles. Olives. Meats and other protein foods Nuts. Nut butters. Large portions of meat, poultry, or fish. Salted or cured meats. Deli meats. Hotdogs. Sausages. Dairy Cheese. Beverages Regular soft drinks. Regular vegetable juice. Seasonings and other foods Seasoning blends with salt. Salad dressings. Canned soups. Soy sauce. Ketchup. Barbecue sauce. Canned pasta sauce. Casseroles. Pizza. Lasagna. Frozen meals. Potato chips. [place] fries. Summary You can reduce your risk of kidney stones by making changes to your diet. The most important thing you can do is drink enough fluid. You should drink enough fluid to keep your urine clear or pale yellow. Ask your health care provider or dietitian how much protein from animal sources you should eat eachday, and also how much salt and calcium you should have each day. This information is not intended to replace advice given to you by your health care provider. Make sure you discuss any questions you have with your health care provider. Document Released: 11/25/2011 Document Revised: 11/20/2019 Document Reviewed: 07/11/2017 [employer] Patient Education 2019 [employer]. Follow Up Care 05/24/2022 10:24:37 With:Khoi METZ, MILTON Watts, URO Address: When:6 months Comments:[facility]UB [facility] 11-02-2022 Evaluation note* Encounter Date Diagnosis Assessment Notes Treatment Notes Treatment Clinical Notes Jun, Post laminectomy syndrome (ICD-10 - M96.1) 77 year old male here for medication refill and follow up status post caudal epidural steroid injection with a Racz catheter and lysis of adhesions under fluoroscopic guidance. Patient reports minimal pain relief following procedure. He voices complaints of low back pain with radiation down the left thigh to the knee. He also complains of bilateral shoulder pain. He feels pain negatively impacts his daily activities and sleeping pattern. He continues taking Oxycodone and Gabapentin with some relief. Anatomy of spine as well as different treatment options were discussed in detail with patient in regards to patients condition. It appears that injections are not providing significant relief at this time. I recommend if the pain is severe that he follow up with his neurosurgeon to discuss surgical options, if applicable. In the meantime, I encouraged the patient to continue medications as prescribed. Jun, Sacroiliitis (ICD-10 - M46.1) If his pain persits or worsens, we can consider a bilateral sacroiliac joint injection under fluoroscopic guidance in the future. In the meantime, patient requested to start physical therapy for exercises and stretches to achieve the maximum ability to perform daily activities and movements while managing his pain. Jun, Scoliosis of lumbar region due to degenerative disease of spine in adult (ICD-10 - M41.86) Continue taking medications as prescribed. Jun, Chronic pain (ICD-10 - G89.29) Patient has continued need for Oxycodone. OARRS report processed and reviewed and shows no violations. Patient was educated on the risks and benefits of mcc opioid use. Oxycodone was refilled today, opioid risk assessment was done as well as pill count. Patient is compliant with opioid medication. The patient denies any opioid related side effects. [facility] Other 10-28-2022 Evaluation note* Encounter Date Diagnosis Assessment Notes Treatment Notes Treatment Clinical Notes May, Post laminectomy syndrome (ICD-10 - M96.1) [facility] Other 10-11-2022 History of Present illness Narrative* Mahesh Small MD - 05/24/2022 4:06 PM EDT Tyler returns in follow-up today. His left leg strength is slowly improving. He is able to be more active and stand and walk for longer periods of time. If he stands or walks for a long period of time he does complain of back pain and this is likely secondary to his sagittal imbalance. I am happy to see that he is improving. He will continue with his therapy and will return to see us in September atthe 1 year lalo from surgery. At that stage we may consider proceeding with a realignment procedure. Mahesh Small MD * Mahesh Small MD - 05/24/2022 2:44 PM EDT SPINE SURGERY ESTABLISHED VISIT DATE OF SERVICE: 05/24/2022 DATE OF LAST VISIT: 02/15/2022 SUBJECTIVE: HPI:Tyler Torres is a 77 year old male presenting with daughter. The patient was last seen as a new patient on 02/15/2022. In brief, he underwent T12 to sacrum posterior instrumentation with multilevel lateral lumbar interbody fusion in September 2021 at an outside hospital with left quadriceps and hip flexor weakness postoperatively, concerning for a injury to theleft L3 nerve root. In clinic, the patient also was noted to have positive sagittal imbalance, and the patient was found to be a potential candidate for additional surgery in the form of an osteotomyat L3 or L4, but the patient required additional time for healing and possible recovery of nerve function prior to considering this. The plan at this time was to follow-up in 3 months. Today, the patient endorses some improvement in left leg weakness compared to his last appointment.He endorses some low back pain with radiating pain down his lateral left legafter long periods of walking and standing, but this is not particularly bothersome. He ambulates with a walker. He endorses some MEDICATIONS: acetaminophen (TYLENOL ORAL) Take 500 mg by mouth. celecoxib (CELEBREX) 100 mg capsule Take by mouth. gabapentin (NEURONTIN) 300 mg capsule Take 1 capsule by mouth three times daily. HYDROcodone-acetaminophen (NORCO) 5-325 mg per tablet hydrocodone 5 mg- acetaminophen 325 mg tablet Melatonin 5 mg cap Take 5 mg by mouth. metFORMIN (GLUCOPHAGE) 500 mg tablet Take 500 mg by mouth. tamsulosin (FLOMAX) 0.4 mg Take 0.4 mg by mouth. Patient Entered Questionnaires Spine Questions 02/14/2022 05/23/2022 Pain Location: Leg Leg Pain Duration: - 6 months - 1 year Pain over last 6 months: - Every day or nearly every day in the past 6 months Symptoms from neck/cervical spine: Yes No Employment Status: - Disabled for reasons other than back pain Involved in law suit/legal claim: - No PROMIS Score Percentiles Physical Health 05/23/2022 Physical Function Percentile 4 Sleep Percentile 18* Fatigue Percentile 8 Pain Interference Percentile 4 PROMIS SOCIAL ROLE SCORE 05/23/2022 Social Role Satisfaction Percentile 2 PROMIS Global Health Scale 05/23/2022 Physical Health Percentile 7 Mental Health Percentile 34 Percentiles provide an indication of how the patient's score ranks in relation to the general population. Higher percentile rankings indicate better function/quality of life. 50th percentile is the average of the general population and indicates half of respondents had a worse score. Depression Screening: PHQ-9 05/23/2022 Score 5 PHQ-9 Self-harm Question 05/23/2022 Thoughts that you would be better off , or of hurting yourself in some way 0 PHQ-9 Self-Harm (Item 9) response options: 0 Not at all 1 Several days 2 More than half the days 3 Nearly every day PHQ-9 Levels: 0-4 No to mild depression 5-9 Mild depression 10-14 Moderate depression 15-19 Moderately severe depression 20-27 Severe depression OBJECTIVE: PHYSICAL EXAM: GENERAL APPEARANCE: Well nourished, well developed, and no apparent distress. NEURO PSYCH: Patient oriented to person, place, and time. Mood pleasant. Benign affect. VISUAL INSPECTION: Incisions healing well without erythema or drainage MOTOR: Hip Flexors Right: 5, Left: 4 Knee Extensors Right 5 and Left 4 Long Toe Extensors Right: 5, Left: 5 Ankle Plantar Flexors Right: 5, Left: 5 SENSORY: Normal sensory exam GAIT: Antalgic LONG TRACT SIGNS: No clonus ASSESSMENT/PLAN (Z98.1) S/P lumbar spinal fusion (primary encounter diagnosis) (M62.81) Quadriceps weakness Tyler presents for follow-up of his left-sided L3 nerve palsy 8 months after undergoing T12 to pelvisinstrumentation with multiple lateral lumbar interbody fusions at an outside hospital. He has some improvement in the weakness in his left leg. We discussed that it may take up to 12-18 months for full potential nerve recovery to be seen. Recommend continued observation at this time. Regarding his positive sagittal imbalance, he is not complaining of much low back pain today, and as discussed before an osteotomy at L3 or L4 may put his L3 nerve root at risk for further injury. We would recommend against proceeding with surgery for this at this time. Tyler Torres will continue with medical management of his/her condition. No Orders Entered Today Follow up: in 4 months I reviewed the information obtained and documented by the resident. I examined the patient and evaluated all available films and pertinent documents. We discussed the case and I agree with the plans as outlined in this note. SIGNATURE: Mahesh Small MD PATIENT NAME: Tyler Torres DATE: May 24, 2022 TIME: 2:46 PM PAGER: documented in this encounterAs[facility] History of Present illness Narrative* Armando Warren, RT(R) - 05/24/2022 2:20 PM EDT Radiology Service Progress Note PATIENT NAME: Tyler Torres DATE OF SERVICE: May 24, 2022 TIME: 2:16 PM PATIENT IDENTITY VERIFICATION COMPLETED USING TWO (2) IDENTIFIERS: Name and Date of confirmedby patient verbally and Name and Date of confirmed by identification band. FALL SCREENING: Has the patient had 2 falls in the last year or 1 fall with injury or currently using an Ambulatory Assistive Device (Walker, Cane, Wheelchair, Crutches, etc.)? Yes, Patient High Riskfor Falls What interventions were put in place to prevent falls during this visit? [place] Falls Risk Wristband Applied, Instructed Patient to Call for Help if Needed, Offered Assistance with Transfers/Clothing, Instructed Patient to Remain Seated (Not on Exam Table) Until Exam, and Increased Observations by Caregivers PATIENT GENDER DATA: Male PATIENT RELEVANT IMPLANT DATA REVIEWED: Yes RADIOLOGY DEPARTMENT: General X-ray: Exam(s) Completed: Spine X-Ray(s): Lumbar AP / LAT / L5-S1 PERIPHERAL IV DATA: Not applicable SIGNED BY: RT Dotty(R) May 24, 2022 2:16 PM documented in this encounterAsht[facility]10-10-2022 Miscellaneous Notes* Telephone Encounter - Alis Nieves LPN - 05/23/2022 1:11 PM EDT Called spoke to patient, made aware that Dr. Small has put in an order to have x- ray done prior to his visit on 05/24/22. documented in this encounterAsht[facility]10-03-2022 NoteEXAMINATION: XR CHEST 2 V HISTORY: Pre-surgery evaluation COMPARISON: 09/07/2015 TECHNIQUE: FINDINGS: LUNGS: No significant pulmonary parenchymal abnormalities. VASCULATURE: No increased pulmonary vasculature. PLEURA: No pneumothorax, effusion, or pleural thickening. CARDIAC: No cardiomegaly or cardiac silhouette abnormality. MEDIASTINUM: No visible mass or adenopathy. BONES: Mild to moderate degenerative changes. Thoracic spinal fusion. OTHER: Negative. IMPRESSION: No acute disease. Electronically authenticated by: GRAHAM WHYTE Date: 2022-05-16 16:23[facility]09-29[facility] Evaluation note* Encounter Date Diagnosis Assessment Notes Treatment Notes Treatment Clinical Notes Apr, Post laminectomy syndrome (ICD-10 - M96.1) Apr, Scoliosis of lumbar region due to degenerative disease of spine in adult (ICD-10 - M41.86) [facility] Other 09-27-2022 Evaluation note* Encounter Date Diagnosis Assessment Notes Treatment Notes Treatment Clinical Notes Apr, Post laminectomy syndrome (ICD-10 - M96.1) 77 year old male here for follow up and medication refill for chronic pain. He voices complaints of left lower extremity pain today. He feels most of his leg pain is in his thigh. He also complains of low back pain in the morning upon rising. He continues taking Oxycodone, he is requesting a refill today. Anatomy of spine discussed in detail with patient in regards to patients condition. Patient would be a candidate for a caudal epidural steroid injection with a RACZ catheter under fluoroscopic guidance. Risks and benefits of procedure explained to patient; patient verbalizes understanding. In the meantime, I will refill his Gabapentin and Oxycodone as this provides an element of relief. Apr, Lumbar radiculopathy (ICD-10 - M54.16) Proceed with current treatment plan Apr, Sacroiliitis (ICD-10 - M46.1) Continue with medication management Apr, Chronic pain (ICD-10 - G89.29) Patient has continued need for Oxycodone. OARRS report processed and reviewed and shows no violations. 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 Oxycodone was refilled today, opioid risk assessment was done as well as pill count. Patient is compliant with opioid medication. The patient denies any opioid related side effects. [facility] Other 09-14-2022 Evaluation + Plan note Diagnostic Tests Pending * Urine Culture 04/27/22 [facility]09-14-2022 Hospital Discharge instructions Patient Education 04/27/2022 11:54:50 Dietary Guidelines to Help Prevent Kidney Stones Dietary Guidelines to Help Prevent Kidney Stones Kidney stones are deposits of minerals and salts that form inside your kidneys. Your risk of developing kidney stones may be greater depending on your diet, your lifestyle, the medicines you take, and whether you have certain medical conditions. Most people can reduce their chances of developing kidney stones by following the instructions below. Depending on your overall health and the type of kidney stones you tend to develop, your dietitian may give you more specific instructions. What are tips for following this plan? Reading food labels Choose foods with no salt added or low-salt labels. Limit your sodium intake to less than 1500 mg per day. Choose foods with calcium for each meal and snack. Try to eat about 300 mg of calcium at each meal.Foods that contain 200 500 mg of calcium per serving include: ?8 oz (237 ml) of milk, fortified nondairy milk, and fortified fruit juice. ?8 oz (237 ml) of kefir, yogurt, and soy yogurt. ?4 oz (118 ml) of tofu. ?1 oz of cheese. ?1 cup (300 g) of dried figs. ?1 cup (91 g) of cooked broccoli. ?1 3 oz can of sardines or mackerel. Most people need 1000 to 1500 mg of calcium each day. Talk to your dietitian about how much calciumis recommended for you. Shopping Buy plenty of fresh fruits and vegetables. Most people do not need to avoid fruits and vegetables, even if they contain nutrients that may contribute to kidney stones. When shopping for convenience foods, choose: ?Whole pieces of fruit. ?Premade salads with dressing on the side. ?Low-fat fruit and yogurt smoothies. Avoid buying frozen meals or prepared deli foods. Look for foods with live cultures, such as yogurt and kefir. Cooking Do not add salt to food when cooking. Place a salt shaker on the table and allow each person to addhis or her own salt to taste. Use vegetable protein, such as beans, textured vegetable protein (TVP), or tofu instead of meat in pasta, casseroles, and soups. Meal planning Eat less salt, if told by your dietitian. To do this: ?Avoid eating processed or premade food. ?Avoid eating fast food. Eat less animal protein, including cheese, meat, poultry, or fish, if told by your dietitian. To dothis: ?Limit the number of times you have meat, poultry, fish, or cheese each week. Eat a diet free of meat at least 2 days a week. ?Eat only one serving each day of meat, poultry, fish, or seafood. ?When you prepare animal protein, cut pieces into small portion sizes. For most meat and fish, one serving is about the size of one deck of cards. Eat at least 5 servings of fresh fruits and vegetables each day. To do this: ?Keep fruits and vegetables on hand for snacks. ?Eat 1 piece of fruit or a handful of berries with breakfast. ?Have a salad and fruit at lunch. ?Have two kinds of vegetables at dinner. Limit foods that are high in a substance called oxalate. These include: ?Spinach. ?Rhubarb. ?Beets. ?Potato chips and malawian fries. ?Nuts. If you regularly take a diuretic medicine, make sure to eat at least 1 2 fruits or vegetables high in potassium each day. These include: ?Avocado. ?Banana. ?[place], prune, carrot, or tomato juice. ?Baked potato. ?Cabbage. ?Beans and split peas. General instructions Drink enough fluid to keep your urine clear or pale yellow. This is the most important thing you can do. Talk to your health care provider and dietitian about taking daily supplements. Depending on your health and the cause of your kidney stones, you may be advised: ?Not to take supplements with vitamin C. ?To take a calcium supplement. ?To take a daily probiotic supplement. ?To take other supplements such as magnesium, fish oil, or vitamin B6. Take all medicines and supplements as told by your health care provider. Limit alcohol intake to no more than 1 drink a day for non women and 2 drinks a day for men. One drink equals 12 oz of beer, 5 oz of wine, or 1 oz of hard liquor. Lose weight if told by your health care provider. Work with your dietitian to find strategies and an eating plan that works best for you. What foods are not recommended? Limit your intake of the following foods, or as told by your dietitian. Talk to your dietitian about specific foods you should avoid based on the type of kidney stones and your overall health. Grains Breads. Bagels. Rolls. Baked goods. Salted crackers. Cereal. Pasta. Vegetables Spinach. Rhubarb. Beets. Canned vegetables. Pickles. Olives. Meats and other protein foods Nuts. Nut butters. Large portions of meat, poultry, or fish. Salted or cured meats. Deli meats. Hotdogs. Sausages. Dairy Cheese. Beverages Regular soft drinks. Regular vegetable juice. Seasonings and other foods Seasoning blends with salt. Salad dressings. Canned soups. Soy sauce. Ketchup. Barbecue sauce. Canned pasta sauce. Casseroles. Pizza. Lasagna. Frozen meals. Potato chips. [place] fries. Summary You can reduce your risk of kidney stones by making changes to your diet. The most important thing you can do is drink enough fluid. You should drink enough fluid to keep your urine clear or pale yellow. Ask your health care provider or dietitian how much protein from animal sources you should eat eachday, and also how much salt and calcium you should have each day. This information is not intended to replace advice given to you by your health care provider. Make sure you discuss any questions you have with your health care provider. Document Released: 11/25/2011 Document Revised: 11/20/2019 Document Reviewed: 07/11/2017 [employer] Patient Education 2020 [employer]. 04/27/2022 11:54:05 Acute Urinary Retention, Male Acute Urinary Retention, Male Acute urinary retention is a condition in which a person is unable to pass urine. This can last fora short time or for a long time. If left untreated, it can result in kidney damage or other seriouscomplications. What are the causes? This condition may be caused by: Obstruction or narrowing of the tube that drains the bladder (urethra). This may be caused by surgery or problems with nearby organs, such as the prostate gland, which can press or squeeze the urethra. Problems with the nerves in the bladder. These can be caused by diseases, such as multiple sclerosis, or by spinal cord injuries. Certain medicines. Tumors in the area of the pelvis, bladder, or urethra. Diabetes. Degenerative cognitive conditions such as delirium or dementia. Bladder or urinary tract infection. Constipation. Blood in the urine (hematuria). Injury to the bladder or urethra. Psychological (psychogenic) conditions. Someone may hold his urine due to trauma or because he doesnot want to use the bathroom. What increases the risk? This condition is more likely to develop in older men. As men age, their prostate may become largerand may start pressing or squeezing on the bladder or the urethra. What are the signs or symptoms? Symptoms of this condition include: Trouble urinating. Pain in the lower abdomen. Symptoms usually come on slowly over a long period of time. How is this diagnosed? This condition is diagnosed based on a physical exam and a medical history. You may also have othertests, including: An ultrasound of the bladder or kidneys or both. Blood tests. A urine analysis. Additional tests may be needed such as an MRI, kidney, or bladder function tests. How is this treated? Treatment for this condition may include: Medicines. Placing a thin, sterile tube (catheter) into the bladder to drain urine out of the body. This is called an indwelling urinary catheter. After being inserted, the catheter is held in place with a small balloon that is filled with sterile water. Urine drains from the catheter into a collection bag outside of the body. Behavioral therapy. Treatment for any underlying conditions. If needed, you may be treated in the hospital for kidney function problems or to manage other complications. Follow these instructions at home: Take [id number] and prescription medicines only as told by your health care provider. Avoid certain medicines, such as decongestants, antihistamines, and some prescription medicines. Do not take any medicine unless your health care provider has approved. If you were given an indwelling urinary catheter, take care of it as told by your health care provider. Drink enough fluid to keep your urine clear or pale yellow. If you were prescribed an antibiotic, take it as told by your health care provider. Do not stop taking the antibiotic even if you start to feel better. Do not use any products that contain nicotine or tobacco, such as cigarettes and e-cigarettes. If you need help quitting, ask your health care provider. Monitor any changes in your symptoms. Tell your health care provider about any changes. If instructed, monitor your blood pressure at home. Report changes as told by your health care provider. Keep all follow-up visits as told by your health care provider. This is important. Contact a health care provider if: You have uncomfortable bladder contractions that you cannot control (spasms) or you leak urine withthe spasms. Get help right away if: You have chills or fever. You have blood in your urine. You have a catheter and: ?Your catheter stops draining urine. ?Your catheter falls out. Summary Acute urinary retention is a condition in which a person is unable to pass urine. If left untreated, it can result in kidney damage or other serious complications. The cause of this condition may include an enlarged prostate. As men age, their prostate gland may become larger and may start pressing or squeezing on the bladder or the urethra. Treatment for this condition may include medicines and placement of an indwelling urinary catheter. Monitor any changes in your symptoms. Tell your health care provider about any changes. This information is not intended to replace advice given to you by your health care provider. Make sure you discuss any questions you have with your health care provider. Document Released: 11/06/2001 Document Revised: 07/13/2018 Document Reviewed: 09/01/2017 [employer] Patient Education 2020 [employer]. Follow Up Care 04/21/2022 09:27:53 With:Khoi METZ, MILTON Watts, URO Address: When: Unknown [facility] [employer] 09-06-2022 Evaluation note* Encounter Date Diagnosis Assessment Notes Treatment Notes Treatment Clinical Notes Apr, Scoliosis of lumbar region due to degenerative disease of spine in adult (ICD-10 - M41.86) [employer] Other 08-29-2022 Evaluation note* Encounter Date Diagnosis Assessment Notes Treatment Notes Treatment Clinical Notes Mar, Post laminectomy syndrome (ICD-10 - M96.1) If his pain persists or worsens, we can consider a spinal cord stimulator implant. However, this will be very difficult due to insert due to the amount of hardware already on his spine. Mar, Lumbar radiculopathy (ICD-10 - M54.16) 77 year old male here for follow up and medication refill for chronic pain. He voices complaints of diffuse joint pain and bilateral upper extremity pain and swelling worse at night. He also voices complaints of low back pain with intermittent radiation down bilateral lower extremities as well as continued weakness in the lower extremities. He continues taking Oxycodone with relief and is requesting a refill of this today. Anatomy of spine as well as different treatment options were discussed in detail with patient in regards to patients condition. I recommend he continue with physical therapy to improve strength and ROM in the lower extremities. If his pain persists or worsens, we can consider proceeding with a caudal epidural steroid injection with insertion of a Racz catheter under fluoroscopic guidance. Risks and benefits of procedure explained to patient; patient verbalizes understanding. In the meantime, I will refill his Oxycodone as he feels this provides an element of relief. Mar, Sacroiliitis (ICD-10 - M46.1) Continue with current treatment plan. Mar, Diffuse arthralgia (ICD-10 - M25.50) Regarding his complaints of diffuse joint pain, patient is encouraged to follow up with his PCP to discuss options. If needed, I can refer the patient to see a Sustainable Systems Analyst in the future. Mar, Chronic pain (ICD-10 - G89.29) Patient has continued need for Oxycodone. OARRS report processed and reviewed and shows no violations. Patient was educated on the risks and benefits of mcc opioid use. Oxycodone was refilled today, opioid risk assessment was done as well as pill count. Patient is compliant with opioid medication. The patient denies any opioid related side effects. [facility] Other 08-16-2022 Evaluation note* Encounter Date Diagnosis Assessment Notes Treatment Notes Treatment Clinical Notes Mar, Lumbar stenosis with neurogenic claudication (ICD-10 - M48.062) [facility] Other 07-27-2022 NotePROCEDURE: Edutor Signa HDXT 1.5. Sagittal T1, T2, STIR and axial T1 and T2 contiguous and cone down images through the lumbar spine were performed with and without contrast administration. 15 cc of ProHance was administered. Comparison is made with the prior examination of February 13, 2018. FINDINGS: Interval placement of extensive bilateral pedicle screw fusion hardware and intervertebral disc spacers (T12 through S1). No bone marrow edema, osseous or hardware fracture. Unremarkable paravertebral soft tissues. Bilateral renal benign cyst formation, largest within the left upper pole 4.5 x 6.0 cm. No spinal canal stenosis throughout the lumbar spine. No abnormal enhancement associated with the intervertebral disc spaces. Suboptimal neural foraminal zone evaluation due to pedicle screw fusion artifact. Moderate bilateral mid L5/S1 neural foraminal stenosis is suggested. No abnormal enhancement. IMPRESSION: Extensive lumbar fusion, moderate bilateral L5/S1 neural foraminal stenosis, disc bulging and facet arthropathy (questionable significance given this history). Report reported and signed by Rajiv Macias on 03/09/2022 [id number]07-05-2022 History of Present illness Narrative* Mahesh Small MD - 02/15/2022 11:58 AM EDT This 77-year-old male presents complaining of left quadriceps and hip flexor weakness. He is also complaining of pain in an L3 nerve root distribution and axial back pain. In September of this year heunderwent a multilevel lateral lumbar interbody fusion and T12 to sacrum posterior instrumentation.He awoke after the surgery with left quadriceps weakness and weakness of his hip flexors. He was hospitalized for 5 weeks. His preoperative symptoms were axial back pain without significant leg pain. On clinical exam he has grade 2 quadriceps power and grade 4 hip flexor power. He has notable quadriceps wasting. He stands in about 15 cm positive sagittal balance. His preoperative imaging showed a mild degenerative scoliosis with a 6 mm degenerative spondylolisthesis at L4-5. His pelvic incidence is 63 degrees and hispreoperative lumbar lordosis was 35 degrees. His postoperative films show interbody cages placed through a lateral approach from T12-L5 and no interbody at L5-S1. His postoperative lumbar lordosis is25 degrees giving an almost 40 degree mismatch. I think this gentleman's nerve injury was caused at the time of his surgery. L3 nerve palsy is a known complication of lateral interbody fusion at L4-5 and his cage at L3-4 is very posteriorly placedand so it is possible that the nerve was damaged at that level. I think there is still a chance of his quadriceps function returning. I do not feel there is anything surgically that can be done to improve his quadricep strength. At this stage I would not intervene surgically. I think in the future he would likely benefit from an osteotomy to address his sagittal imbalance but the osteotomy would be done at the L3 or L4 level and would have a high risk of further damaging the L3 nerve and its rec overy phase. I would like to see him back in 3 months time to assess his clinical progress. Mahesh Small MD * Mahesh Small MD - 02/15/2022 11:15 AM EDT SPINE SURGERY NEW PATIENT PCP: No primary care provider on file. REFERRING PROVIDER: Dr Yong White SUBJECTIVE HISTORY OF PRESENT ILLNESS: Tyler Torres is a 77 year old male presenting with daughter. CHIEF COMPLAINT: left left pain PRECIPITATING EVENT: Lumbar spine surgery DURATION OF SYMPTOMS: Greater Than 3 Months He reports a 4 months history of left leg pain that started immediately after his lumbar spinal fusion surgery at an outside hospital in September 2021. Prior to surgery his main complaint was lower back pain; he did not have leg pain and ambulated independently without assistive devices. He noticednew left leg pain with weakness immediately after surgery which has remained the same since. He describes it as a sharp shooting pain radiating from his back to the hip and both sides of his left legto his knees. The pain occasionally radiates down the inside of his lower leg but not to his toes. He underwent 3 epidural steroid injections, he is unsure which levels, with minimal relief. He noticed mild temporary improvement after the first injection but no improvement after the the subsequent injections. He currently takes oxycodone for pain. He endorses some subjective numbness with tingling to his left leg. PAIN EVALUATION 02/15/2022 1039 Pain Level: 6 Pain Location: Leg-Left Description: Shooting;Burning Pain Radiation: down the left thigh Aggravating Factors: Flexion, Extension, Standing, Walking Alleviating Factors: None Pain Ratio: Pain in the leg(s) is greater than in the back DERMATOMAL DISTRIBUTION: Left: L3 and L4 AMBULATORY STATUS: Impaired Home Distances ANTIPLATELET OR ANTICOAGULATION STATUS: No PREVIOUS CONSERVATIVE TREATMENTS: Epidural Blocks: Date(s) unknown PREVIOUS SPINAL SURGERY: SURGERY #1: T12-S1 fusion in September 2021 at [facility] There is no problem list on file for this patient. No past medical history on file. No past surgical history on file. No family history on file. Social History Tobacco Use Smoking status: Former Smoker Packs/day: 0.50 Years: 15.00 Pack years: 7.50 Types: Cigarettes Smokeless tobacco: Never Used Tobacco comment: Quit years ago Substance Use Topics Alcohol use: Yes Alcohol/week: 2.0 standard drinks Types: 2 Cans of Beer (12oz) per week Drug use: Not on file ALLERGIES Allergen Reactions Simvastatin Unknown MEDICATIONS: acetaminophen (TYLENOL ORAL) Take 500 mg by mouth. celecoxib (CELEBREX) 100 mg capsule Take by mouth. gabapentin (NEURONTIN) 300 mg capsule Take 1 capsule by mouth three times daily. HYDROcodone-acetaminophen (NORCO) 5-325 mg per tablet hydrocodone 5 mg- acetaminophen 325 mg tablet Melatonin 5 mg cap Take 5 mg by mouth. metFORMIN (GLUCOPHAGE) 500 mg tablet Take 500 mg by mouth. tamsulosin (FLOMAX) 0.4 mg Take 0.4 mg by mouth. REVIEW OF SYSTEMS: PAIN ASSESSMENT: See HPI. GENERAL: Denies fever, chills malaise and weight loss. HEENT: No recent change in vision or hearing. CARDIOVASCULAR: Denies chest pain, history of A-fib, valvular disease, or pacemaker/ICD. RESPIRATORY: Denies SOB, sputum production, and hemoptysis. GI: Denies GI ulcers, inflammatory disease, or liver disease. : Denies change in frequency or urgency, kidney disease, and burning with urination. MUSCULOSKELETAL: Positive for low back pain SKIN: Denies rash or itching. PSYCHOLOGICAL: Denies uncontrolled depression or anxiety. NEURO: Denies CVA, seizures, headaches. ENDOCRINE: Reportsdiabetes, denies thyroid disease. HEMATOLOGY/LYMPHOLOGY: Denies cancer, bleeding or clotting disorders, anemia,and DVT's. ALLERGIC/IMMUNOLOGICAL: Denies risks for infection, or recent MRSA infections. Patient Entered Questionnaires Spine Questions 02/14/2022 Pain Location: Leg Symptoms from neck/cervical spine: Yes PROMIS Score Percentiles Percentiles provide an indication of how the patient's score ranks in relation to the general population. Higher percentile rankings indicate better function/quality of life. 50th percentile is the average of the general population and indicates half of respondents had a worse score. Depression Screening: PHQ-9 Self-Harm (Item 9) response options: 0 Not at all 1 Several days 2 More than half the days 3 Nearly every day PHQ-9 Levels: 0-4 No to mild depression 5-9 Mild depression 10-14 Moderate depression 15-19 Moderately severe depression 20-27 Severe depression OBJECTIVE: PHYSICAL EXAM There were no vitals taken for this visit. GENERAL APPEARANCE: Well nourished, well developed, and no apparent distress. NEURO PSYCH: Patient oriented to person, place, and time. Mood pleasant. Benign affect. CARDIOVASCULAR: Palpable pulses. No edema noted. No varicosities. SKIN: Head, neck, trunk, and extremities dry, intact and without lesions. LYMPHATICS: No palpable nodes in cervical or axillae areas. Groin exam deferred. MUSCULOSKELETAL VISUAL INSPECTION CERVICAL: WNL THORACIC: WNL LUMBAR: Kyphosis PALPATION: SPINOUS PROCESS: Pain. PARASPINALS: No pain. MUSCLE BULK: Normal and symmetrical in the upper & lower extremities. MUSCLE TONE: Normal. MOTOR: Deltoid Right: 5, Left: 5 Elbow Flexors Right: 5, Left: 5 Wrist Extensors Right: 5, Left: 5 Elbow Extensors Right: 5, Left: 5 Finger Flexors (Distal Phalanx of Middle Finger) Right: 5, Left: 5 Finger Abductors (Little Finger) Right: 5, Left: 5 Hip Flexors Right: 5, Left: 4 Knee Extensors Right 5 and Left 2 Long Toe Extensors Right: 5, Left: 5 Ankle Plantar Flexors Right: 5, Left: 5 SENSORY: L3 impaired left, L4 impaired left GAIT: Positive sagittal balance REFLEXES: Knee jerk Right: 2+, Left: 0. PROPRIOCEPTION: Not tested. LONG TRACT SIGNS: No clonus. No Hoffmans. STRAIGHT LEG TEST: Ipsilateral: Negative. Contralateral: Negative. L'HERMITTES SIGN: Not tested. SPURLING'S TEST: Not tested. 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 1. No Orders Entered Today 2. Follow up: Three month I reviewed the information obtained and documented by the resident. I examined the patient and evaluated all available films and pertinent documents. We discussed the case and I agree with the plans as outlined in this note. SIGNATURE: Mahesh Small MD PATIENT NAME: Tyler Torres DATE: February 15, 2022 TIME: 11:16 AM PAGER: documented in this encounterAsht[facility]06[facility] Evaluation [facility]* Encounter Date Diagnosis Assessment Notes Treatment Notes Treatment Clinical Notes Jan, Lumbar stenosis with neurogenic claudication (ICD-10 - M48.062) Jan, Scoliosis of lumbar region due to degenerative disease of spine in adult (ICD-10 - M41.86) The patient is to get an MRI scan of his lumbar spine with and without gadolinium to make sure we are not missing any compression of his L3 or L4 nerve roots. We will see him back in the office at that time. Jan, Idiopathic peripheral neuropathy (ICD-10 - G60.9) [facility] Other 06-27-2022 History of Present illness Narrative* Gamaliel Flynn MD - 2022 9:58 AM EDT UNIVERSAL PROTOCOL / SAFETY CHECKLIST Procedure to be Performed: EMG Sign In: A Moment of CARE was completed. Personnel directly involved with the procedure wore the appropriate PPE (Personal Protective Equipment). Patient/Surrogate Stated/Verified: PATIENT VERIFIED(optional for EMERGENT procedures): Patient name, Date of , Relevant allergies and The intended procedure Time Out Communication: Intended patient and procedure match the source documents. Correct side/site marked and visible. Sign Out: SIGN OUT (optional for EMERGENT procedures): Post-procedure follow-up management communicated and Plan of Care Visit completed when applicable. WILLIAM Rodriguez. Gamaliel Flynn MD documented in this encounterAshtabula [facility]06-20-2022 Evaluation note* Encounter Date Diagnosis Assessment Notes Treatment Notes Treatment Clinical Notes Jan, Post laminectomy syndrome (ICD-10 - M96.1) If his pain persists or worsens, we can consider a spinal cord stimulator implant. However, this will be very difficult due to insert due to the amount of harward already on his spine. Jan, Lumbar radiculopathy (ICD-10 - M54.16) 77 year old male here for follow up status post left L3 and L4 transforaminal epidural steroid injection under fluoroscopic guidance. Patient reports minimal pain relief as well as improved walking, standing and daily functions following procedure. He voices complaints of intermittent low back pain with radiation down the left lower extremity. He continues taking Oxycodone with relief and is requesting a refill of this today. He states his pain is negatively impacting his activities of daily living and sleep pattern. Anatomy of spine discussed in detail with patient in regards to patients condition. I recommend he follow up with his surgeon as we have failed multiple attempts to control his leg pain. In the meantime, I will refill his Oxycodone as he feels this provides an element of relief. I will also take over his Gabapentin in the future. Jan, Sacroiliitis (ICD-10 - M46.1) Continue with current treatment plan. Jan, Chronic pain (ICD-10 - G89.29) Patient has continued need for Oxycodone. OARRS report processed and reviewed and shows no violations. 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 Oxycodone was refilled today, opioid risk assessment was done as well as pill count. Patient is compliant with opioid medication. The patient denies any opioid related side effects. [facility] Other 06-15-2022 History of Present illness Narrative* Enzo White, - 01/26/2022 3:23 PM EDT [facility] Low Back Pain - Chronic (> 12 weeks) Initial Exam SUBJECTIVE HISTORY OF PRESENT ILLNESS: Tyler Torres is a 76 year old male who presents with a chief complaint of low back and leg pain andis self-referred. He is from [place], [place]. Presents with his significant other. [facility] LSS T12-S1 fusion in [address] [facility]. L sided low back and leg pain anterolateral thigh which started following his surgery, 3-4 days following. Weakness in the left hip flexor and knee extensors. Symptoms are getting worse. Now walks with a walker which he did not do prior to the surgery. Has had two falls since the surgery. Spent 5 weeks in the hospital total including inpatient rehab. Then did, Home PT and now in outpatient. Currently in PT, two sessions. In October had X-ray and MRI L Spine. They followed up with the surgeon following the updated imagingresults and per patient, he was told it was inflammation around the nerves causing his symptoms. On Oxycodone 5 mg and Gabapentin 300 mg TID, on celecoxib 100 mg daily and PRN Tylenol. He is not sure if it helps. Had 3 LUCAS's at [facility] with pain mgt. Unsure which levels. First two helped some with pain and last did not. No fevers, chills, bowel or bladder deficits. Other Issues Addressed at the Visit Today: None. PAIN EVALUATION 01/26/2022 1525 Pain Level: 6 Pain Location: Leg-Left Description: Aching;Burning;Sore Duration Units: Months Frequency: Continuous Intervention/Comfort measure: Medication;Reposition;Heat PREVIOUS TREATMENTS IN THE LAST SIX MONTHS Active conservative therapy in the last six months (see below) 1. Physical therapy: Yes 2. Home exercise program after PT:Yes 3. A physician supervised home exercise program (HEP): No 4. Eyeletter: No 5. What are your limitations: Walking, standing (None, ADL'S, Walking, Standing, Other) Passive conservative therapy in the last six months (see below) 1. NSAIDS: No 2. Prescription pain medication: Yes, see above. 3. Acupuncture: No 4. Tens unit: No Litigation: No Workers' Compensation: No YELLOW & BLUE FLAGS No-Neg Attitude; Back Pain is Disabling No-Avoiding Activity (for Fear of Pain) No-Depression or Anxiety Disorders No-Social Problems No-Substance Use Disorder No-Job Dissatisfaction No-Financial Disincentives Patient Entered Questionnaires PROMIS Score Percentiles Percentiles provide an indication of how the patient's score ranks in relation to the general population. Higher percentile rankings indicate better function/quality of life. 50th percentile is the average of the general population and indicates half of respondents had a worse score. Depression Screening: PHQ-9 Self-Harm (Item 9) response options: 0 Not at all 1 Several days 2 More than half the days 3 Nearly every day PHQ-9 Levels: 0-4 No - mild depression 5-9 Mild depression 10-14 Moderate depression 15-19 Moderately severe depression 20-27 Severe depression There is no problem list on file for this patient. No past medical history on file. No past surgical history on file. Social History Tobacco Use Smoking status: Not on file Smokeless tobacco: Not on file Substance Use Topics Alcohol use: Not on file Drug use: Not on file No family history on file. ALLERGIES Allergen Reactions Simvastatin Unknown CURRENT MEDICATIONS: No prescriptions on file. REVIEW OF SYSTEMS: 14 Point Review of Systems performed and otherwise negative aside from HPI. OBJECTIVE: PHYSICAL EXAM Ht 172.7 cm (5' 8 ) Wt 76.2 kg (168 lb) BMI 25.54 kg/m GENERAL APPEARANCE: Well appearing, well-hydrated, well nourished and alert SKIN: Head, neck, trunk, and extremities dry, intact and without lesions HEART: Peripheral pulses: normal, 2+ bilaterally and symmetric, Edema: No LUNGS: even and non-labored breathing, normal chest excursion LYMPHATICS: No lymphadema NEURO/PSYCH: speech normal, mental status intact GAIT: Walking with walker difficulty with with extension of left knee and hip flexion. POSTURE: Posture and spinal curves are normal PALPATION: no palpable masses, tenderness, or spasm, no palpable subluxation or step-off, no point tenderness over the spine MUSCULOSKELETAL: Leg Raise Straight Leg Raise Negative Negative Contralateral Straight Leg Raise Negative Negative Alessandra's Exam: Superficial non-anatomic tenderness: No Overreaction: No Pain on simulated maneuvers: No Straight Leg Raise test discrepancy: No Give-way weakness: No Non-dermatomal sensory loss: No Lower Extremities Strength Right Left Toe extension (EHL) 5/5 5/5 Ankle Dorsiflexion 5/5 5/5 Ankle Plantarflexion 5/5 5/5 Knee Extension 5/5 1/5 Hip Flexion (seated) 5/5 1/5 Lower Body Reflex Exam Right Left Knee Absent Absent Ankle Absent Absent Soft touch absent in left quad. *Significant atrophy of left VMO. Neuro Tests: Cranial Nerves: Normal mood and affect. CNII-XII grossly intact. Data Review: Outside records independently reviewed, no imaging available Report MRI L Spine 06/21/21 At T12-L1, severe disc space narrowing and broad-based disc bulging are seen. Bilateral facet arthropathy and ligament hypertrophy are demonstrated. These factors combine to produce a moderate to severe spinal stenosis at this level. There is a bilateral neural foraminal narrowing. At L1-2, broad-based disc bulging, facet arthropathy, and ligament hypertrophy are seen producing amoderate spinal stenosis. There is a left-sided neural foraminal narrowing. At L2-3, severe disc space narrowing and broad-based disc bulging are seen. Bilateral facet arthropathy and ligament hypertrophy are also demonstrated. These factors combine to produce a moderate to severe spinal stenosis. There is a left-sided neural foraminal narrowing. There is a Schmorl's node involving the superior endplate of L3 that is increased in size since the prior study. At L3-4, broad-based disc bulging, facet arthropathy, and ligament hypertrophy are seen producing asevere spinal stenosis. There is a bilateral neural foraminal narrowing, greater on the left. At L4-5, there is severe disc space narrowing. Broad-based disc bulging, facet arthropathy, and ligament hypertrophy are seen producing a severe spinal stenosis. There is a bilateral neural foraminalnarrowing, greater on the right. At L5-S1, broad-based disc bulging is seen. There is mild effacement of the anterior aspect of the thecal sac. Bilateral facet arthropathy and ligament hypertrophy are seen. No spinal stenosis is demonstrated. There is a bilateral neural foraminal narrowing. XR L Spine 08/06/21 Multiple bilateral renal stones. There is mild dextroconvex curvature in the lumbar spine. Severe multilevel disc and facet related degenerative disease throughout the lumbar spine. Slight anterolisthesis of L4 on L5 measuring 3 mm, which is degenerative in nature. Alignment is otherwise maintained. No pathologic change in alignment between flexion and extension ASSESSMENT/PLAN DIAGNOSIS: Z98.1 S/P lumbar spinal fusion (primary encounter diagnosis) M62.81 Quadriceps weakness M62.559 Atrophy of quadriceps femoris muscle M79.652 Left thigh pain PLAN: 1) Imaging Studies/Diagnostics: Reviewed imaging reports which are noted above from pre-surgery. Iwona does not have any imaging from post-surgery but did have an XR and MRI L Spine. He will attempt to have the discs and reports sent to us. Given significant left quad atrophy and weakness following surgery, we will order EMG/NCS of LLE as he did not have this performed following surgery. 2) Therapy/Rehabilitation: Currently in outpatient PT. Continue HEP. 3) Pharmacological Management: On Oxycodone 5 mg and Gabapentin 300 mg TID, on celecoxib 100 mg daily and PRN Tylenol per pain mgt. 4) Spine/Surgical Interventions: Recently had 3 LUCAS's performed by pain mgt without significant relief in symptoms. 5) Consultations: Will likely need spine surgery consult but will need to obtain imaging prior to consult. 6) Follow -up: Will follow up on EMG/NCS results and imaging results which he will send. 7) Future treatment considerations: Spine surgery consult Lester Glass, PGY-5 Spine Medicine Fellow SIGNATURE: Enzo White DO PATIENT NAME: Tyler Torres DATE: January 26, 2022 TIME: 3:23 PM Pt seen with Dr. Glass Please see notes for details of today's visit. Fellow's history reviewed. HPI explored in detail with patient and edited as necessary. I personally reviewed/performed the ryan elements of the physical exam. Consulting Physician: None HPI: difficulty walking PE: LT VMO wasting noted, using RW for ambulation. Trace lt HF. Unable to extend lt knee Radiology: Films and reports reviewed with patient. As above. Impression: As above Plan: The assessment and plan were formulated and discussed with the resident/fellow. See fellow's note for further details. Agree with plan. Discussed various options including non-surgical and surgical options extensively. Discussed pathology and the use of medications also. Pt would like to consider surgical options. Pt is now worse off than before surgery per pt. Given wasting lf lt VMO, weakness in LT leg, will secure lt LE EMG - R/O sensory motor neuropathy vs radiculopathy. f/u with me for review of study and additional recommendations. Pt did not have any images with him but has had these done since surgery. He will secure this before surgical options. Follow up with primary physician for routine care, blood pressure evaluation, labwork, and physicalexam as scheduled as well as for any other medical concerns. I have answered all the questions regarding their diagnosis, care and treatment plan to patients satisfaction during today's visit. Pt verbalizes understanding of current diagnosis and treatment plan. Report of todays office visit will be sent to consulting/referring physician via letter or shared Electronic Medical Record. Additional notes will be available in EMR [facility]* Encounter Date Diagnosis Assessment Notes Treatment Notes Treatment Clinical Notes December, Lumbar radiculopathy (ICD-10 - M54.16) [facility] Other 05-18-2022 Evaluation note* Encounter Date Diagnosis Assessment Notes Treatment Notes Treatment Clinical Notes December, Scoliosis of lumbar region due to degenerative disease of spine in adult (ICD-10 - M41.86) Patient actually has made progress and is only just 3 months out from surgical intervention. My plan is to get him back into physical therapy and we will see him in 2 months with repeat evaluation. [facility] Other 05-03-2022 Evaluation note* Encounter Date Diagnosis Assessment Notes Treatment Notes Treatment Clinical Notes December, Lumbar radiculopathy (ICD-10 - M54.16) 76 year old male here for follow up status post caudal epidural steroid injection with insertion of a Racz catheter and lysis of adhesions under fluoroscopic guidance. Patient reports moderate improvement in the pain below his knee with minimal improvement in the thigh pain following procedure. He voices complaints of residual low back pain with radiation down the left lower extremity, most bothersome to the knee, ocassionaly to the ankle. He feels his pain is negatively impacting his activities of daily living. Anatomy of spine discussed in detail with patient in regards to patients condition. Patient is a candidate for a L3,4 transforaminal epidural steroid injection under fluoroscopic guidance. Risks and benefits of procedure explained to patient; patient verbalizes understanding. December, Post laminectomy syndrome (ICD-10 - M96.1) Patient reports minimal pain relief following procedure December, Sacroiliitis (ICD-10 - M46.1) In the future if the pain persists, we can consider proceeding with a sacroiliac joint injection under fluoroscopic guidance. December, Chronic pain (ICD-10 - G89.29) Continue with current treatment plan [facility] Other 04-25-2022 Evaluation note* Encounter Date Diagnosis Assessment Notes Treatment Notes Treatment Clinical Notes Nov, Post laminectomy syndrome (ICD-10 - M96.1) [facility] Other 04-14-2022 Evaluation note* Encounter Date Diagnosis Assessment Notes Treatment Notes Treatment Clinical Notes Nov, Post laminectomy syndrome (ICD-10 - M96.1) 76 year old male presents with complaints of left sided low back pain with radiation down the left lower extremity to the ankle. He states pain has been present since back surgery in September of this year. He denies any improvement with prior physical therapy. He is currently taking Gabapentin and Oxycodone with minimal relief of his pain. He feels pain is negatively impacting his daily activities and sleeping pattern. Prior to examining the patient, I reviewed progress notes from his referring provider Dr Brown. I also reviewed previous imaging of the lumbar spine which shows a lumbar fusion from T12-S1 levels. Anatomy of spine discussed in detail with patient in regards to patients condition. Patient is a candidate for a caudal epidural steroid injection with a RACZ catheter under fluoroscopic guidance. Risks and benefits of procedure explained to patient; patient verbalizes understanding. In the meantime, I will refill his Oxycodone as he feels this provides an element of relief. Nov, Sacroiliitis (ICD-10 - M46.1) Proceed with current treatment plan. If his pain persists, we can consider proceeding with a sacroiliac joint injection under fluoroscopic guidance Nov, Chronic pain (ICD-10 - G89.29) Patient has continued need for Oxycodone. OARRS report processed and reviewed and shows no violations. 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 Oxycodone was refilled today, opioid risk assessment was done as well as pill count. Patient is compliant with opioid medication. The patient denies any opioid related side effects. Nov, Other Medical deci lanny making shows a new problem to me with further workup planned or suggested with the potential for extensive treatment options that were considered with the most applicable given this patient's situation as noted above. Treatment options considered include a combination of physical therapy approaches, pharmacologic management, and interventional procedures. Those most applicable to the patient were discussed at this time. Risk of complications and/or morbidity and mortality is high given that acute and chronic pain poses a threat to life and bodily function if undertreated, poorly treated or with failure to maintain adequate treatment and timely followup. Given the serious and fluctuating nature of pain with extensive consideration for whenever pain changes, there always remains the possibility of prolonged functional impairment requiring constant patient reassessment and high-level medical decision making. The amount and complexity of data reviewed is high given that patient labs, radiology reports, and other test were obtained, reviewed and summarized as applicable from the physician portal and/or outside medical records. Pertinent positive and negative findings were considered in medical decision-making. [facility] Other 04-06-2022 Evaluation note* Encounter Date Diagnosis Assessment Notes Treatment Notes Treatment Clinical Notes Nov, Lumbar stenosis with neurogenic claudication (ICD-10 - M48.062) Unfortunately I think the patient's syndrome is still related to the manipulation from surgery. Over time that will continue to improve. We refilled his medications. We will get him involved with physical therapy in outpatient setting I would like him to see pain management for potentially an epidural steroid injection to see if calming down some swelling and inflammation would help things heal a little faster. Nov, Scoliosis of lumbar region due to degenerative disease of spine in adult (ICD-10 - M41.86) [facility] Other 04-04-2022 Evaluation note* Encounter Date Diagnosis Assessment Notes Treatment Notes Treatment Clinical Notes Nov, Scoliosis of lumbar region due to degenerative disease of spine in adult (ICD-10 - M41.86) [facility] Other 03-23-2022 Hospital Discharge instructions Patient Education 11/03/2021 10:04:12 Kidney Stones, [id number] Kidney Stones Kidney stones are rock-like masses that form inside of the kidneys. Kidneys are organs that make pee (urine). A kidney stone may move into other parts of the urinary tract, including: The tubes that connect the kidneys to the bladder (ureters). The bladder. The tube that carries urine out of the body (urethra). Kidney stones can cause very bad pain and can block the flow of pee. The stone usually leaves your body (passes) through your pee. You may need to have a doctor take out the stone. What are the causes? Kidney stones may be caused by: A condition in which certain glands make too much parathyroid hormone (primary hyperparathyroidism). A buildup of a type of crystals in the bladder made of a chemical called uric acid. The body makes uric acid when you eat certain foods. Narrowing (stricture) of one or both of the ureters. A kidney blockage that you were born with. Past surgery on the kidney or the ureters, such as gastric bypass surgery. What increases the risk? You are more likely to develop this condition if: You have had a kidney stone in the past. You have a family history of kidney stones. You do not drink enough water. You eat a diet that is high in protein, salt (sodium), or sugar. You are overweight or very overweight (obese). What are the signs or symptoms? Symptoms of a kidney stone may include: Pain in the side of the belly, right below the ribs (flank pain). Pain usually spreads (radiates) to the groin. Needing to pee often or right away (urgently). Pain when going pee (urinating). Blood in your pee (hematuria). Feeling like you may vomit (nauseous). Vomiting. Fever and chills. How is this treated? Treatment depends on the size, location, and makeup of the kidney stones. The stones will often pass out of the body through peeing. You may need to: Drink more fluid to help pass the stone. In some cases, you may be given fluids through an IV tube put into one of your veins at the hospital. Take medicine for pain. Make changes in your diet to help keep kidney stones from coming back. Sometimes, medical procedures are needed to remove a kidney stone. This may involve: A procedure to break up kidney stones using a beam of light (laser) or shock waves. Surgery to remove the kidney stones. Follow these instructions at home: Medicines Take xlxj-[id number] and prescription medicines only as told by your doctor. Ask your doctor if the medicine prescribed to you requires you to avoid driving or using heavy machinery. Eating and drinking Drink enough fluid to keep your pee pale yellow. You may be told to drink at least 8 10 glasses of water each day. This will help you pass the stone. If told by your doctor, change your diet. This may include: ?Limiting how much salt you eat. ?Eating more fruits and vegetables. ?Limiting how much meat, poultry, fish, and eggs you eat. Follow instructions from your doctor about eating or drinking restrictions. General instructions Collect pee samples as told by your doctor. You may need to collect a pee sample: ?24 hours after a stone comes out. ?8 12 weeks after a stone comes out, and every 6 12 months after that. Strain your pee every time you pee (urinate), for as long as told. Use the strainer that your doctor recommends. Do not throw out the stone. Keep it so that it can be tested by your doctor. Keep all follow-up visits as told by your doctor. This is important. You may need follow-up tests. How is this prevented? To prevent another kidney stone: Drink enough fluid to keep your pee pale yellow. This is the best way to prevent kidney stones. Eat healthy foods. Avoid certain foods as told by your doctor. You may be told to eat less protein. Stay at a healthy weight. Where to find more information National Kidney Foundation (NKF): www.kidney.org [facility] (UCF): www.urologyhealth.org Contact a doctor if: You have pain that gets worse or does not get better with medicine. Get help right away if: You have a fever or chills. You get very bad pain. You get new pain in your belly (abdomen). You pass out (faint). You cannot pee. Summary Kidney stones are rock-like masses that form inside of the kidneys. Kidney stones can cause very bad pain and can block the flow of pee. The stones will often pass out of the body through peeing. Drink enough fluid to keep your pee pale yellow. This information is not intended to replace advice given to you by your health care provider. Make sure you discuss any questions you have with your health care provider. Document Released: 01/16/2009 Document Revised: 12/17/2019 Document Reviewed: 12/17/2019 [employer] Patient Education 2020 [employer]. Follow Up Care 10/18/2021 09:38:52 With:Khoi METZ, MILTON Watts, URO Address: [phone] When:05/06/2022 Comments:w/ ct and ana [facility] 03-21-2022 Evaluation note* Encounter Date Diagnosis Assessment Notes Treatment Notes Treatment Clinical Notes Oct, Scoliosis of lumbar region due to degenerative disease of spine in adult (ICD-10 - M41.86) Given the degree of weakness and the length of time I think it is important that he have a repeat study prior to any further treatment. I like him to get an MRI scan with gadolinium and we will see him back. We will refill his medications and increase his gabapentin. Oct, History of lumbar fusion (ICD-10 - Z98.1) [facility] Other 01-13-2022 Evaluation note* Encounter Date Diagnosis Assessment Notes Treatment Notes Treatment Clinical Notes Aug, Scoliosis of lumbar region due to degenerative disease of spine in adult (ICD-10 - M41.86) I have discussed surgical management options with the patient and patient's daughter extensively. Unfortunate there is no simple solution he has lumbar stenosis at multiple levels even foraminal stenosis at L5-S1 he is got a retrolisthesis he is got a scoliosis and his entire spine in the lumbar area is involved. Surgical intervention would be an anterior lateral reconstruction from T12 and L5 and a posterior reconstruction at L5-S1 followed by posterior instrumentation and fusion. This is not can take care of his peripheral neuropathy which clearly was evident on his EMG and nerve conduction study. He did have his bone density which unfortunately has not had believable since we did not do his forearm even though we had asked him to they did his spine which was read as having positive T-scores he had his hip was at -1.8. My sense is he probably is mildly osteopenic but I think we should still be okay with a surgical intervention. Patient appears understand the risks and benefits the operative procedure including but not limited to the risk of bleeding, infection, increased, recurrent, residual neurologic deficit such as numbness, tingling, pain, weakness, failed surgery and ultimate need for reoperation. At this point the patient wishes to proceed with surgical intervention. A lumbar sagital brace will be dispenced prior to surgery to reduce pain by restricting mobility of the trunk and to otherwise support wak spinal muscles and/or a deformed spine Aug, Lumbar stenosis with neurogenic claudication (ICD-10 - M48.062) Aug, Idiopathic peripheral neuropathy (ICD-10 - G60.9) [facility] Other 12-15-2021 Evaluation note* Encounter Date Diagnosis Assessment Notes Treatment Notes Treatment Clinical Notes Jul, Scoliosis of lumbar region due to degenerative disease of spine in adult (ICD-10 - M41.86) Surgical intervention for this would be essentially a T12 to the sacrum reconstruction and fusion he probably can be approached laterally anteriorly from L1-L5 and then posteriorly with a transforaminal lumbar interbody fusion at L5-S1. This seems like it would be a fairly extensive surgery for someone is only had symptoms over the last several months. In addition it does not explain his pronounced peripheral neuropathy. I think a conservative approach for the least attempted physical therapy and rehab would be appropriate. 15 Jul, 2021 Spinal stenosis, lumbar region with neurogenic claudication (ICD-10 - M48.062) Jul, Osteopenia determined by x-ray (ICD-10 - M85.80) Patient needs to get a DEXA scan prior to any consideration from surgical intervention. Jul, Idiopathic peripheral neuropathy (ICD-10 - G60.9) I would like the patient to get an EMG nerve conduction study to better delineate the degree of dorsal column loss. [facility] Other 05-18-2016 History general Narrative - Reported* Type Description Date Medical History EGD/Colonoscopy 12/12- Hiatal hernia, rectal poyp(Hyperplastic), hemorrhoids Surgical History hydrocell Hospitalization History see above [facility] Other 05-18-2016 History general Narrative - Reported* Type Description Date Medical History EGD/Colonoscopy 12/12- Hiatal hernia, rectal poyp(Hyperplastic), hemorrhoids Surgical History hydrocell Surgical History [id number] Hospitalization History see above [facility] Other evaluation + Plan note No data available for this section [facility] evaluation + Plan note Future Appointments Appointment Date:01/04/2023 09:30:00 AM Scheduled Provider:Olu Sosa MD Location:[facility] Appointment Type:URO Office Visit [facility] evaluation + Plan note Future Appointments Appointment Date:01/04/2023 09:30:00 AM Scheduled Provider:Olu Sosa MD Location:[facility] Appointment Type:URO Office Visit Diagnostic Tests Pending * Calculi Analysis [facility] Future App[facility]ments Appointment Date:05/03/2023 10:30:00 AM Scheduled Provider:Olu Sosa MD Location:[facility] Appointment Type:URO Office Visit [facility] Evaluation + Plan note Future Appointments Appointment Date:10/18/2023 09:45:00 AM Scheduled Provider:Olu Sosa MD Location:[facility] Appointment Type:URO Office Visit [facility] evaluation + Plan note Future Appointments Appointment Date:10/16/2024 10:45:00 AM Scheduled Provider:Olu Sosa MD Location:[facility] Appointment Type:URO Office Visit [facility] evaluation + Plan note Future Appointments Appointment Date:05/21/2025 10:00:00 AM Scheduled Provider:Olu Sosa MD Location:[facility] Appointment Type:URO Office Visit [facility] evaluation note* Diagnosis Onset Date Resolution Status Corticosteroid use acute Delirium acute Diabetes mellitus, type 2 ac sioux Elevated blood pressure reading acute Hyperglycemia acute Lumbar scoliosis acute COPD (chronic obstructive pulmonary disease) acute Delirium acute Diabetes mellitus, type 2 ac sioux Elevated blood pressure reading acute Fusion of lumbar spine acute HTN (hypertension) acute Hyperglycemia acute Impaired mobility and activities of daily living acute Lumbar scoliosis acute Pain acute Sleep apnea acute [facility] Work Phone: Evaluation note* Diagnosis S/P lumbar spinal fusion- Primary Arthrodesis status Quadriceps weakness Muscle weakness (generalized) Atrophy of quadriceps femoris muscle Left thigh pain Pain in limb Spinal stenosis of lumbar region, unspecified whether neurogenic claudication present Lumbar radiculopathy, chronic Thoracic or lumbosacral neuritis or radiculitis, unspecified Gait difficulty Abnormality of gait [facility] Radiculopathy, lumbosacral region- Primary Thoracic or lumbosacral neuritis or radiculitis, unspecified S/P lumbar spinal fusion Arthrodesis status Quadriceps weakness Muscle weakness (generalized) Atrophy of quadriceps femoris muscle Left thigh pain Pain in limb Spinal stenosis of lumbar region, unspecified whether neurogenic claudication present Lumbar radiculopathy, chronic Thoracic or lumbosacral neuritis or radiculitis, unspecified documented in this encounter [facility] noteNo InformationNort [employer] Other evaluation noteNo assessment information [facility] Work Phone: Evaluation note* Diagnosis S/P lumbar spinal fusion Arthrodesis status Quadriceps weakness Muscle weakness (generalized) Atrophy of quadriceps femoris muscle Left thigh pain Pain in limb Spinal stenosis of lumbar region, unspecified whether neurogenic claudication present Lumbar radiculopathy, chronic Thoracic or lumbosacral neuritis or radiculitis, unspecified [facility] Diagnosis S/P lumbar fusion- Primary Arthrodesis status documented in this encounter [facility]* Diagnosis S/P lumbar spinal fusion- Primary Arthrodesis status Quadriceps weakness Muscle weakness (generalized) Flat back syndrome, postprocedural Other acquired deformity of back or spine [facility] S/P lumbar fusion Arthrodesis status [facility] in this encounter [facility]* Diagnosis Chronic low back pain, unspecified back pain laterality, unspecified whether sciatica present- Primary documented in [facility] S/P lumbar spinal fusion- Primary Arthrodesis status Flat back syndrome, postprocedural Other acquired deformity of back or spine [facility] Diagnosis Pain- Primary Generalized pain [facility]* Diagnosis Glenohumeral arthritis, right- Primary Tendinitis of right rotator cuff Disorders of bursae and tendons in shoulder region, unspecified Biceps tendinitis of right upper extremity [facility]* Diagnosis S/P lumbar spinal fusion- Primary Arthrodesis status Flat back syndrome, postprocedural Other acquired deformity of back or spine Pseudarthrosis following spinal fusion Arthrodesis status [facility] Diagnosis Glenohumeral arthritis, right- Primary Decreased range of motion of right shoulder Other symptoms referable to shoulder joint Chronic right shoulder pain Pain in joint, shoulder region [facility]* Diagnosis Glenohumeral arthritis, right- Primary [facility] Diagnosis Chronic right shoulder pain Pain in joint, shoulder region [facility]* Diagnosis Pain Generalized pain [facility]* Diagnosis S/P lumbar spinal fusion Arthrodesis status Flat back syndrome, postprocedural Other acquired deformity of back or spine [facility]* Diagnosis Chronic low back pain, unspecified back pain laterality, unspecified whether sciatica present Flat back syndrome, postprocedural Other acquired deformity of back or spine Pseudarthrosis following spinal fusion Arthrodesis status [facility]* Diagnosis Pre-op exam- Primary Preoperative examination, unspecified Type 2 diabetes mellitus without complication, without long-term current use of insulin ([facility]) Former smoker Personal history of tobacco use, presenting hazards to health Chronic obstructive pulmonary disease, unspecified COPD type (HCC) Flat back syndrome, postprocedural Other acquired deformity of back or spine Pseudarthrosis following spinal fusion Arthrodesis status [facility] Diagnosis S/P lumbar fusion- Primary Arthrodesis status S/P lumbar spinal fusion Arthrodesis status Pseudarthrosis following spinal fusion Arthrodesis status [facility]* Diagnosis S/P lumbar fusion Arthrodesis status [facility]* Diagnosis Pain- Primary Generalized pain [facility]* Diagnosis Pain Generalized pain [facility]* Diagnosis S/P lumbar fusion- Primary Arthrodesis status Flat back syndrome, postprocedural Other acquired deformity of back or spine Pseudarthrosis following spinal fusion Arthrodesis status [facility]* Diagnosis S/P lumbar fusion- Primary Arthrodesis status Flat back syndrome, postprocedural Other acquired deformity of back or spine Pseudarthrosis following spinal fusion Arthrodesis status [facility]* Diagnosis Primary osteoarthritis of both shoulders- Primary Biceps tendinitis of right upper extremity Biceps tendinitis of left shoulder Tendinitis of right rotator cuff Disorders of bursae and tendons in shoulder region, unspecified Rotator cuff tendinitis, left [facility]* Diagnosis Primary osteoarthritis of both shoulders- Primary Biceps tendinitis of right upper extremity Biceps tendinitis of left shoulder Tendinitis of right rotator cuff Disorders of bursae and tendons in shoulder region, unspecified Rotator cuff tendinitis, left [facility]* Diagnosis Type 2 diabetes mellitus without complication, with long-term current use of insulin ([facility])- Primary Pain due to onychomycosis of toenails of both feet [facility] Diagnosis Chronic left shoulder pain- Primary Pain in joint, shoulder region Primary osteoarthritis of both shoulders Biceps tendinitis of left shoulder Biceps tendinitis of right upper extremity Rotator cuff tendinitis, left [facility]* Diagnosis Chronic left shoulder pain- Primary Pain in joint, shoulder region [facility]* Diagnosis Pain- Primary Generalized pain Chronic left shoulder pain Pain in joint, shoulder region Pre-operative clearance Preoperative examination, unspecified documented in this encounter [facility] note* Diagnosis Pain- Primary Generalized pain Chronic left shoulder pain Pain in joint, shoulder region Pre-op testing Preoperative examination, unspecified Chronic left shoulder pain Pain in joint, shoulder region documented in this encounter [facility] note* Diagnosis Pre-op evaluation- Primary Preoperative examination, unspecified Chronic left shoulder pain Pain in joint, shoulder region Pre-operative clearance Preoperative examination, unspecified Obstructive sleep apnea syndrome Obstructive sleep apnea (adult) (pediatric) Mixed hyperlipidemia Elevated BP without diagnosis of hypertension Chronic obstructive pulmonary disease, unspecified COPD type ([facility]) Former smoker Personal history of tobacco use, presenting hazards to health Gastroesophageal reflux disease without esophagitis Esophageal reflux Calculus of kidney Type 2 diabetes mellitus without complication, without long-term current use of insulin ([facility]) Cerebrovascular accident (CVA), unspecified mechanism ([facility]) Stenosis of carotid artery, unspecified laterality Chronic left shoulder pain Pain in joint, shoulder region * Assessment & Plan Note - Eric Kebede APRN.CNP - 07/22/2024 1:36 PM ESTAssociated Problem(s): Carotid stenosis Assessment: less than 50% bilaterally Follows with vascular, last office visit 05/28/24 * Assessment & Plan Note - Eric Kebede APRN.CNP - 07/22/2024 1:35 PM ESTAssociated Problem(s): CVA (cerebral vascular accident) (HCC) Assessment: hx 03/2024 Follows up with neurology, last office visit 04/25/24 Daily aspirin No residual deficits * Assessment & Plan Note - Eric Kebede APRN.CNP - 07/22/2024 1:31 PM ESTAssociated Problem(s): Type 2 diabetes mellitus without complication, without long-term current useof insulin (HCC) Assessment: managed with oral med, stable Follows up with PCP BG at home 100's HgbA1c 6.1% 03/24/24 * Assessment & Plan Note - Eric Kebede APRN.CNP - 07/22/2024 1:30 PM ESTAssociated Problem(s): Calculus of kidney Assessment: stable and asymptomatic * Assessment & Plan Note - Eric Kebede APRN.CNP - 07/22/2024 1:30 PM ESTAssociated Problem(s): Gastroesophageal reflux disease without esophagitis Assessment: managed with med, stable Follows up with PCP * Assessment & Plan Note - Eric Kebede APRN.CNP - 07/22/2024 1:30 PM ESTAssociated Problem(s): Former smoker Assessment: quit 1993 Former 0.5 ppd for 20 years * Assessment & Plan Note - Eric Kebede APRN.CNP - 07/22/2024 1:29 PM ESTAssociated Problem(s): Chronic obstructive pulmonary disease (HCC) Assessment: Denies SOB Does not require inhaler or oxygen Follows up with PCP 96% RA * Assessment & Plan Note - Eric Kebede APRN.CNP - 07/22/2024 1:29 PM ESTAssociated Problem(s): Elevated BP without diagnosis of hypertension Assessment: managed with med, stable Follows up with PCP * Assessment & Plan Note - Eric Kebede APRN.CNP - 07/22/2024 1:29 PM ESTAssociated Problem(s): Mixed hyperlipidemia Assessment: managed with med, stable Follows up with PCP * Assessment & Plan Note - Eric Kebede APRN.CNP - 07/22/2024 1:29 PM ESTAssociated Problem(s): Obstructive sleep apnea syndrome Assessment: non-compliant with CPAP [facility] Chronic left shoulder pain Pain in joint, shoulder region Pre-op evaluation- Primary Preoperative examination, unspecified Chronic left shoulder pain Pain in joint, shoulder region Pre-operative clearance Preoperative examination, unspecified Obstructive sleep apnea syndrome Obstructive sleep apnea (adult) (pediatric) Mixed hyperlipidemia Elevated BP without diagnosis of hypertension Chronic obstructive pulmonary disease, unspecified COPD type (HCC) Former smoker Personal history of tobacco use, presenting hazards to health Gastroesophageal reflux disease without esophagitis Esophageal reflux Calculus of kidney Type 2 diabetes mellitus without complication, without long-term current use of insulin ([facility]) Cerebrovascular accident (CVA), unspecified mechanism (HCC) Stenosis of carotid artery, unspecified laterality Chronic left shoulder pain Pain in joint, shoulder region documented in this encounter [facility] note* Diagnosis Pre-op evaluation- Primary Preoperative examination, unspecified Chronic left shoulder pain Pain in joint, shoulder region Pre-operative clearance Preoperative examination, unspecified Obstructive sleep apnea syndrome Obstructive sleep apnea (adult) (pediatric) Mixed hyperlipidemia Elevated BP without diagnosis of hypertension Chronic obstructive pulmonary disease, unspecified COPD type (HCC) Former smoker Personal history of tobacco use, presenting hazards to health Gastroesophageal reflux disease without esophagitis Esophageal reflux Calculus of kidney Type 2 diabetes mellitus without complication, without long-term current use of insulin (HCC) Cerebrovascular accident (CVA), unspecified mechanism (HCC) Stenosis of carotid artery, unspecified laterality Chronic left shoulder pain Pain in joint, shoulder region Pre-operative clearance Preoperative examination, unspecified Chronic left shoulder pain Pain in joint, shoulder region documented in this encounter [facility] note* Diagnosis Lumbar degenerative disc disease [facility] Diagnosis Pre-op evaluation- Primary Preoperative examination, unspecified Chronic left shoulder pain Pain in joint, shoulder region Pre-operative clearance Preoperative examination, unspecified Obstructive sleep apnea syndrome Obstructive sleep apnea (adult) (pediatric) Mixed hyperlipidemia Elevated BP without diagnosis of hypertension Chronic obstructive pulmonary disease, unspecified COPD type (HCC) Former smoker Personal history of tobacco use, presenting hazards to health Gastroesophageal reflux disease without esophagitis Esophageal reflux Calculus of kidney Type 2 diabetes mellitus without complication, without long-term current use of insulin (HCC) Cerebrovascular accident (CVA), unspecified mechanism (HCC) Stenosis of carotid artery, unspecified laterality Aftercare following left shoulder joint replacement surgery- Primary Post-operative state Other postprocedural status documented in this encounter [facility] note* Diagnosis Pre-op evaluation- Primary Preoperative examination, unspecified Chronic left shoulder pain Pain in joint, shoulder region Pre-operative clearance Preoperative examination, unspecified Obstructive sleep apnea syndrome Obstructive sleep apnea (adult) (pediatric) Mixed hyperlipidemia Elevated BP without diagnosis of hypertension Chronic obstructive pulmonary disease, unspecified COPD type (HCC) Former smoker Personal history of tobacco use, presenting hazards to health Gastroesophageal reflux disease without esophagitis Esophageal reflux Calculus of kidney Type 2 diabetes mellitus without complication, without long-term current use of insulin (HCC) Cerebrovascular accident (CVA), unspecified mechanism (HCC) Stenosis of carotid artery, unspecified laterality Chronic left shoulder pain Pain in joint, shoulder region documented in this encounter [facility] note* Diagnosis Pre-op evaluation- Primary Preoperative examination, unspecified Chronic left shoulder pain Pain in joint, shoulder region Pre-operative clearance Preoperative examination, unspecified Obstructive sleep apnea syndrome Obstructive sleep apnea (adult) (pediatric) Mixed hyperlipidemia Elevated BP without diagnosis of hypertension Chronic obstructive pulmonary disease, unspecified COPD type (HCC) Former smoker Personal history of tobacco use, presenting hazards to health Gastroesophageal reflux disease without esophagitis Esophageal reflux Calculus of kidney Type 2 diabetes mellitus without complication, without long-term current use of insulin (HCC) Cerebrovascular accident (CVA), unspecified mechanism (HCC) Stenosis of carotid artery, unspecified laterality S/P lumbar fusion- Primary Arthrodesis status Flat back syndrome, postprocedural Other acquired deformity of back or spine Pseudarthrosis following spinal fusion Arthrodesis status documented in this encounter [facility] note* Diagnosis Pre-op evaluation- Primary Preoperative examination, unspecified Chronic left shoulder pain Pain in joint, shoulder region Pre-operative clearance Preoperative examination, unspecified Obstructive sleep apnea syndrome Obstructive sleep apnea (adult) (pediatric) Mixed hyperlipidemia Elevated BP without diagnosis of hypertension Chronic obstructive pulmonary disease, unspecified COPD type (HCC) Former smoker Personal history of tobacco use, presenting hazards to health Gastroesophageal reflux disease without esophagitis Esophageal reflux Calculus of kidney Type 2 diabetes mellitus without complication, without long-term current use of insulin (HCC) Cerebrovascular accident (CVA), unspecified mechanism (HCC) Stenosis of carotid artery, unspecified laterality S/P lumbar fusion Arthrodesis status Flat back syndrome, postprocedural Other acquired deformity of back or spine Pseudarthrosis following spinal fusion Arthrodesis status documented in this encounter [facility] note* Diagnosis Pre-op evaluation- Primary Preoperative examination, unspecified Chronic left shoulder pain Pain in joint, shoulder region Pre-operative clearance Preoperative examination, unspecified Obstructive sleep apnea syndrome Obstructive sleep apnea (adult) (pediatric) Mixed hyperlipidemia Elevated BP without diagnosis of hypertension Chronic obstructive pulmonary disease, unspecified COPD type (HCC) Former smoker Personal history of tobacco use, presenting hazards to health Gastroesophageal reflux disease without esophagitis Esophageal reflux Calculus of kidney Type 2 diabetes mellitus without complication, without long-term current use of insulin (HCC) Cerebrovascular accident (CVA), unspecified mechanism (HCC) Stenosis of carotid artery, unspecified laterality Aftercare following left shoulder joint replacement surgery- Primary [facility]* Diagnosis Pre-op evaluation- Primary Preoperative examination, unspecified Chronic left shoulder pain Pain in joint, shoulder region Pre-operative clearance Preoperative examination, unspecified Obstructive sleep apnea syndrome Obstructive sleep apnea (adult) (pediatric) Mixed hyperlipidemia Elevated BP without diagnosis of hypertension Chronic obstructive pulmonary disease, unspecified COPD type ([facility]) Former smoker Personal history of tobacco use, presenting hazards to health Gastroesophageal reflux disease without esophagitis Esophageal reflux Calculus of kidney Type 2 diabetes mellitus without complication, without long-term current use of insulin ([facility]) Cerebrovascular accident (CVA), unspecified mechanism ([facility]) Stenosis of carotid artery, unspecified laterality Chronic left shoulder pain Pain in joint, shoulder region [facility]* Diagnosis Lumbar degenerative disc disease [facility] Diagnosis Lumbar degenerative disc disease [facility]* Diagnosis Type 2 diabetes mellitus without complication, without long-term current use of insulin ([facility]) [facility]* Diagnosis Spinal stenosis of lumbar region with neurogenic claudication- Primary Type 2 diabetes mellitus without complication, without long-term current use of insulin ([facility] [facility]* Diagnosis Lumbar degenerative disc disease [facility]* Diagnosis Anxiety- Primary Anxiety state, unspecified Lumbar degenerative disc disease Benign prostatic hyperplasia with nocturia [facility]* Diagnosis Myalgia Unspecified myalgia and myositis documented [facility]* Diagnosis Lumbar degenerative disc disease [facility]* Diagnosis Dizziness- Primary Dizziness and giddiness Dizziness Dizziness and giddiness Cerebrovascular accident (CVA), unspecified mechanism ([facility]) Double vision Diplopia Type 2 diabetes mellitus without complication, without long-term current use of insulin ([facility]) Elevated BP without diagnosis of hypertension [facility]* Diagnosis Cerebrovascular accident (CVA), unspecified mechanism ([facility])- Primary Other cerebrovascular vasospasm and vasoconstriction documented [facility]* Diagnosis Lumbar degenerative disc disease documented [facility]* Diagnosis Lumbar degenerative disc disease documented [facility]* Diagnosis Other fatigue- Primary Gastroesophageal reflux disease without esophagitis Esophageal reflux ROMEO (obstructive sleep apnea) Obstructive sleep apnea (adult) (pediatric) Generalized osteoarthritis Generalized osteoarthrosis, involving multiple sites Type 2 diabetes mellitus without complication, without long-term current use of insulin ([facility]) [facility]* Diagnosis Cerebrovascular accident (CVA), unspecified mechanism ([facility])- Primary Stenosis of right internal carotid artery documented [facility]* Diagnosis Bilateral carotid artery stenosis- Primary Occlusion and stenosis of carotid artery without mention of cerebral infarction Stenosis of right internal carotid artery documented [facility]* Diagnosis Routine general medical examination at a health care facility- Primary Lumbar degenerative disc disease Type 2 diabetes mellitus without complication, without long-term current use of insulin ([facility]) [facility]* Diagnosis Cerebrovascular accident (CVA), unspecified mechanism ([facility])- Primary Other cerebrovascular vasospasm and vasoconstriction documented [facility]* Diagnosis Type 2 diabetes mellitus without complication, without long-term current use of insulin ([facility] documented [facility]* Diagnosis Other fatigue- Primary documented [facility]* Diagnosis Lumbar degenerative disc disease [facility]* Diagnosis Pre-op evaluation- Primary Preoperative examination, unspecified Chronic left shoulder pain Pain in joint, shoulder region Pre-operative clearance Preoperative examination, unspecified Obstructive sleep apnea syndrome Obstructive sleep apnea (adult) (pediatric) Mixed hyperlipidemia Elevated BP without diagnosis of hypertension Chronic obstructive pulmonary disease, unspecified COPD type ([facility]) Former smoker Personal history of tobacco use, presenting hazards to health Gastroesophageal reflux disease without esophagitis Esophageal reflux Calculus of kidney Type 2 diabetes mellitus without complication, without long-term current use of insulin ([facility]) Cerebrovascular accident (CVA), unspecified mechanism (HCC) Stenosis of carotid artery, unspecified laterality Chronic right shoulder pain- Primary Pain in joint, shoulder region Aftercare following left shoulder joint replacement surgery Glenohumeral arthritis, right [facility]* Diagnosis Pre-op evaluation- Primary Preoperative examination, unspecified Chronic left shoulder pain Pain in joint, shoulder region Pre-operative clearance Preoperative examination, unspecified Obstructive sleep apnea syndrome Obstructive sleep apnea (adult) (pediatric) Mixed hyperlipidemia Elevated BP without diagnosis of hypertension Chronic obstructive pulmonary disease, unspecified COPD type (HCC) Former smoker Personal history of tobacco use, presenting hazards to health Gastroesophageal reflux disease without esophagitis Esophageal reflux Calculus of kidney Type 2 diabetes mellitus without complication, without long-term current use of insulin (HCC) Cerebrovascular accident (CVA), unspecified mechanism (HCC) Stenosis of carotid artery, unspecified laterality Aftercare following left shoulder joint replacement surgery documented in this encounter [facility] note* Diagnosis Type 2 diabetes mellitus without complication, with long-term current use of insulin ([facility]/HCC)- Primary Pain due to onychomycosis of toenails of both feet [facility]* Diagnosis Pre-op evaluation- Primary Preoperative examination, unspecified Chronic left shoulder pain Pain in joint, shoulder region Pre-operative clearance Preoperative examination, unspecified Obstructive sleep apnea syndrome Obstructive sleep apnea (adult) (pediatric) Mixed hyperlipidemia Elevated BP without diagnosis of hypertension Chronic obstructive pulmonary disease, unspecified COPD type (HCC) Former smoker Personal history of tobacco use, presenting hazards to health Gastroesophageal reflux disease without esophagitis Esophageal reflux Calculus of kidney Type 2 diabetes mellitus without complication, without long-term current use of insulin (HCC) Cerebrovascular accident (CVA), unspecified mechanism (HCC) Stenosis of carotid artery, unspecified laterality Chronic right shoulder pain- Primary Pain in joint, shoulder region Chronic right shoulder pain Pain in joint, shoulder region documented in this encounter [facility] note* Diagnosis Pre-op evaluation- Primary Preoperative examination, unspecified Chronic left shoulder pain Pain in joint, shoulder region Pre-operative clearance Preoperative examination, unspecified Obstructive sleep apnea syndrome Obstructive sleep apnea (adult) (pediatric) Mixed hyperlipidemia Elevated BP without diagnosis of hypertension Chronic obstructive pulmonary disease, unspecified COPD type (HCC) Former smoker Personal history of tobacco use, presenting hazards to health Gastroesophageal reflux disease without esophagitis Esophageal reflux Calculus of kidney Type 2 diabetes mellitus without complication, without long-term current use of insulin (HCC) Cerebrovascular accident (CVA), unspecified mechanism (HCC) Stenosis of carotid artery, unspecified laterality Pain- Primary Generalized pain Chronic right shoulder pain Pain in joint, shoulder region Pre-op testing Preoperative examination, unspecified Chronic right shoulder pain Pain in joint, shoulder region [facility] Right ureteral stone- Primary Generalized osteoarthritis Generalized osteoarthrosis, involving multiple sites [facility] Diagnosis Generalized osteoarthritis- Primary Generalized osteoarthrosis, involving multiple sites [facility] Diagnosis Pre-op evaluation- Primary Preoperative examination, unspecified Chronic left shoulder pain Pain in joint, shoulder region Pre-operative clearance Preoperative examination, unspecified Obstructive sleep apnea syndrome Obstructive sleep apnea (adult) (pediatric) Mixed hyperlipidemia Elevated BP without diagnosis of hypertension Chronic obstructive pulmonary disease, unspecified COPD type (HCC) Former smoker Personal history of tobacco use, presenting hazards to health Gastroesophageal reflux disease without esophagitis Esophageal reflux Calculus of kidney Type 2 diabetes mellitus without complication, without long-term current use of insulin (HCC) Cerebrovascular accident (CVA), unspecified mechanism (HCC) Stenosis of carotid artery, unspecified laterality Pre-op testing- Primary Preoperative examination, unspecified Chronic right shoulder pain Pain in joint, shoulder region Cerebrovascular accident (CVA), unspecified mechanism (HCC) Mixed hyperlipidemia Elevated BP without diagnosis of hypertension Stenosis of carotid artery, unspecified laterality Chronic obstructive pulmonary disease, unspecified COPD type (HCC) Former smoker Personal history of tobacco use, presenting hazards to health Obstructive sleep apnea syndrome Obstructive sleep apnea (adult) (pediatric) Gastroesophageal reflux disease without esophagitis Esophageal reflux Type 2 diabetes mellitus without complication, without long-term current use of insulin (HCC) Mitral valve insufficiency, unspecified etiology Aortic valve sclerosis Aortic valve disorders Chronic right shoulder pain Pain in joint, shoulder region [facility] Diagnosis Bilateral carotid artery stenosis Occlusion and stenosis of carotid artery without mention of cerebral infarction [facility] Diagnosis Drug-induced constipation- Primary Other constipation [facility] Diagnosis Pre-op evaluation- Primary Preoperative examination, unspecified Chronic left shoulder pain Pain in joint, shoulder region Pre-operative clearance Preoperative examination, unspecified Obstructive sleep apnea syndrome Obstructive sleep apnea (adult) (pediatric) Mixed hyperlipidemia Elevated BP without diagnosis of hypertension Chronic obstructive pulmonary disease, unspecified COPD type (HCC) Former smoker Personal history of tobacco use, presenting hazards to health Gastroesophageal reflux disease without esophagitis Esophageal reflux Calculus of kidney Type 2 diabetes mellitus without complication, without long-term current use of insulin (HCC) Cerebrovascular accident (CVA), unspecified mechanism (HCC) Stenosis of carotid artery, unspecified laterality Glenohumeral arthritis, right- Primary [facility] Pre-op evaluation- Primary Preoperative examination, unspecified Chronic left shoulder pain Pain in joint, shoulder region Pre-operative clearance Preoperative examination, unspecified Obstructive sleep apnea syndrome Obstructive sleep apnea (adult) (pediatric) Mixed hyperlipidemia Elevated BP without diagnosis of hypertension Chronic obstructive pulmonary disease, unspecified COPD type (HCC) Former smoker Personal history of tobacco use, presenting hazards to health Gastroesophageal reflux disease without esophagitis Esophageal reflux Calculus of kidney Type 2 diabetes mellitus without complication, without long-term current use of insulin (HCC) Cerebrovascular accident (CVA), unspecified mechanism (HCC) Stenosis of carotid artery, unspecified laterality Chronic right shoulder pain Pain in joint, shoulder region [facility] Author Cortes Abarca [facility] February 02, 2023 8:47am Note Date/Time February 02, 2023 8:47 am [facility] [address] [place] [address] Gastroenterology H&P Signed Patient: Tyler Torres MR#: [id number] : 1945 Acct:[id number] Age/Sex: 77 / M Adm Date: 3 Loc: Room: Type: [facility] Attending Dr: Cortes Abarca MD Copies to: MD Armando Mukherjee MD~ Date of Service: 02/02/2023 HISTORY & PHYSICAL: Patient's history with special attention to the cardiovascular, pulmonary systems and the current problem was reviewed with the patient immediately prior to the procedure. Present medications and doses reviewed in the EMR. Allergies and pertinent laboratory tests were also reviewedat this time in the EMR. The physical examination, as below, was then performed. Indication, assessment and HPI: 77-year-old man with history of esophagitis herefor EGD to assess for Hunter's Family history of GI malignancy? No PHYSICAL EXAMINATION Mouth and Pharynx : Moist mucus membranes, normal dentition Cardiac: Regular rate, regular rhythm Pulmonary: Clear to auscultation bilaterally, no wheezing Neurological: Alert and oriented x3, no focal deficits noted Abdomen: Abdomen soft, non-tender REVIEW OF SYSTEMS Constitutional: Denies malaise, fevers Cardiovascular: Denies chest pain, palpitations Respiratory: Denies shortness of breath, wheezing Gastrointestinal: Per HPI Genitourinary: Denies dysuria, polyuria Musculoskeletal: Denies joint swelling, joint stiffness Neurological: Denies numbness, tingling Integumentary: Denies rashes, skin lesions Endocrine: Denies fatigue, weight loss Written informed consent obtained from the patient. Risks (including but not limited to perforation, infection, bloating, bleeding, need for emergent surgeryand loss of life), benefits and alternatives explained and questions answered. The patient verbalized understanding. Based on history patient is an appropriate candidate for the procedure. Cortes Abarca M.D. Documented By: Cortes Abarca MD 02/02/23 0846 Signed By: <Electronically signed by Cortes Abarca MD> 02/02/23 0847 [facility] Work Phone: History and physical note Author Cortes Abarca [facility] May 04, 2023 12:46pm Note Date/Time May 04, 2023 12:46pm [facility] [address] [place] [address] Gastroenterology H&P Signed Patient: Tyler Torres MR#: [id number] : 1945 Acct:[id number] Age/Sex: 78 / M Adm Date: 3 Loc: Room: Type: [facility] Attending Dr: Cortes Abarca MD Copies to: MD Armando Mukehrjee MD~ Date of Service: 05/04/2023 HISTORY & PHYSICAL: Patient's history with special attention to the cardiovascular, pulmonary systems and the current problem was reviewed with the patient immediately prior to the procedure. Present medications and doses reviewed in the EMR. Allergies and pertinent laboratory tests were also reviewedat this time in the EMR. The physical examination, as below, was then performed. Indication, assessment and HPI: 78-year-old man with history of GERD with esophagitis here for EGD to assess for Hunter's PHYSICAL EXAMINATION Mouth and Pharynx : Moist mucus membranes, normal dentition Cardiac: Regular rate, regular rhythm Pulmonary: Clear to auscultation bilaterally, no wheezing Neurological: Alert and oriented x3, no focal deficits noted Abdomen: Abdomen soft, non-tender REVIEW OF SYSTEMS Constitutional: Denies malaise, fevers Cardiovascular: Denies chest pain, palpitations Respiratory: Denies shortness of breath, wheezing Gastrointestinal: Per HPI Genitourinary: Denies dysuria, polyuria Musculoskeletal: Denies joint swelling, joint stiffness Neurological: Denies numbness, tingling Integumentary: Denies rashes, skin lesions Endocrine: Denies fatigue, weight loss Written informed consent obtained from the patient. Risks (including but not limited to perforation, infection, bloating, bleeding, need for emergent surgeryand loss of life), benefits and alternatives explained and questions answered. The patient verbalized understanding. Based on history patient is an appropriate candidate for the procedure. Cortes Abarca M.D. Documented By: Cortes Abarca MD 05/04/23 1245 Signed By: <Electronically signed by Cortes Abarca MD> 05/04/23 1246 [facility] Work Phone: History of Present illness Narrative* Manan Baker DPM - 08/15/2024 3:30 PM EST Patient: Tyler Torres : 1945 PCP: No primary care provider on file. SUBJECTIVE This is a 79 y.o. male that presents today with a CC of elongated, thick nails. Pt states nails have been elongated and thick for many years and cause pain with ambulation in shoegear. Pt has tried previous treatment with minimal relief. Pt presents today for nail care and treatment. positive hx of venous stasis to b/l legs. Patient is type 2 diabetic Allergies: No Known Allergies Past Medical History: Past Medical History: Diagnosis Date History of esophagogastroduodenoscopy (EGD) 2015 and colonoscopy History of esophagogastroduodenoscopy (EGD) 2018 for esophageal stricture Hyperlipidemia (CMS/HCC) Leg pain Lower back pain Neuropathy in diabetes (CMS/[facility]) Onychomycosis S/P epidural steroid injection 2012 Tinea pedis Medications: Current Outpatient Medications: celecoxib (CeleBREX) 200 MG capsule, Take 200 mg by mouth in the morning., Disp: , Rfl: cetirizine (ZyrTEC) 10 MG tablet, Take 10 mg by mouth 1 (one) time each day at the same time., Disp: , Rfl: cholecalciferol (Vitamin D-3) 50 MCG (1999) capsule, Take 2,000 Units by mouth in the morning., Disp: , Rfl: esomeprazole (NexIUM) [address] capsule, Take 40 mg by mouth in the morning and 40 mg before bedtime., Disp: , Rfl: gabapentin (Neurontin) 300 MG capsule, Take 600 mg by mouth in the morning and 600 mg in the evening and 600 mg before bedtime., Disp: , Rfl: meloxicam (Mobic) 15 MG tablet, Take 15 mg by mouth 1 (one) time each day at the same time., Disp: , Rfl: metFORMIN (Glucophage) 500 MG tablet, Take 500 mg by mouth 1 (one) time each day at the same time.,Disp: , Rfl: omeprazole (PriLOSEC) [address] capsule, Take 1 capsule by mouth 1 (one) time each day at the same time., Disp: , Rfl: oxyCODONE (Roxicodone) 5 MG immediate release tablet, Take 5 mg by mouth in the morning and 5 mg inthe evening., Disp: , Rfl: tamsulosin (Flomax) 0.4 MG 24 hr capsule, , Disp: , Rfl: Social History: Social History Socioeconomic History Marital status: Spouse name: Not on file Number of children: Not on file Years of education: Not on file Highest education level: Not on file Occupational History Not on file Tobacco Use Smoking status: Former Current packs/day: 0.00 Types: Cigarettes Start date: 1968 Quit date: 1978 Years since quittin.0 Passive exposure: Past Smokeless tobacco: Never Vaping Use Vaping status: Unknown Substance and Sexual Activity Alcohol use: Yes Alcohol/week: 4.0 standard drinks of alcohol Types: 4 Standard drinks or equivalent per week Comment: 4 or more times a week Drug use: Never Sexual activity: Defer Partners: Decline to Answer Other Topics Concern Not on file Social History Narrative Not on file Social Drivers of Health Financial Resource Strain: Low Risk (08/24/2023) [facility], [facility] Overall Financial Resource Strain (CARDIA) Difficulty of Paying Living Expenses: Not hard at all Food Insecurity: No Food Insecurity (05/29/2024) Received from [facility] Hunger Screening Within the past 12 months we worried whether our food would run out before we got money to buy more.: Never True Within the past 12 months the food we bought just didn't last and we didn't have money to get more.: Never True Transportation Needs: No Transportation Needs (03/24/2024) Received from [facility] PRAPARE - Transportation Lack of Transportation (Medical): No Lack of Transportation (Non-Medical): No Physical Activity: Not on file Stress: Not on file Social Connections: Not on file Intimate Partner Violence: Not on file Housing Stability: Low Risk (03/24/2024) Received from [facility] Housing Instability Are you worried or concerned that in the next two months you may not have stable housing that you own, rent or stay in as a part of a household?: No ROS: General: denies fever, chills, fatigue, malaise OBJECTIVE LE EXAM: DERM: Elongated thick yellow crumbly nails digits 1 through 10. Positive hair growth b/l feet. +1 pitting edema to b/l ankles VASC: Positive palpable pedal pulses bilaterally NEURO: positive sensation to b/l feet with 5.07 SWM filament to digits and tuning fork sensation positive to first MPJ regions b/l ORTHO: Positive pain on palpation to nails 1 through 10 ASSESSMENT 1. Type 2 diabetes mellitus without complication, with long-term current use of insulin ([facility]) 2. Pain due to onychomycosis of toenails of both feet PLAN Discussed proper foot care with patient today. Debride nails in length and thickness digits 1 through 10 Pt to continue with compression stockings daily and keep feet elevated when NWB. Patient educated today on proper diabetic foot care including monitoring feet daily for any signs of infection openings in the skin or irregularities to both feet. Patient had a diabetic neurologicalexam today to both their feet and discussed proper shoe gear. Manan Baker DPM [facility] No data available for this section [facility] Additional Instructions DISCHARGE INSTRUCTIONS FOR UPPER ENDOSCOPY WHAT TO EXPECT: - You may feel full, gassy or cramping after your procedure. In some cases, this may be from a few hours to a day. Walking may help relieve the discomfort. - Your throat may feel sore today from the scope that the doctor passed through your throat to visualize your stomach. Take a throat lozenge or suck on ice to ease the discomfort. - You may notice some streaks of blood in your sputum if the doctor has taken a biopsy. - You should begin to recover from anesthesia within 1 hour of the procedure, however may feel groggy for the next 24 hours. DO's AND DON'Ts: - Call your doctor right away if you have a hard abdomen, severe pain, vomiting or if you cough up large amounts of blood. - Call your doctor if you develop any rashes, hives or difficulty breathing. - If you take 81 mg aspirin for your heart it is safe to resume this medication. - If you take other blood thinner medications your doctor will instruct you when these can safely be resumed. - Do NOT drive for 24 hours. - Do NOT operate machinery such as power tools, [employer] mowers, snow blowers, sewing machines, etc. for 24 hours. - Avoid alcoholic beverages and drugs for allergies, nerves, or sleep. - Do NOT stay alone. Do NOT leave your child unattended. - Do NOT make important personal or business decisions or sign any legal documents. - Eat solid foods and drink liquids in smaller amounts than usual until normal appetite returns. If you should experience an upset stomach, liquids high in sugar content (soda, Ross-Aid, non-acid juices) are recommended. - Do NOT smoke. - Do take it easy today. You need not stay in bed, but avoid strenuous activities such as jogging or working out. FOLLOW UP & RECOMMENDATIONS: -Continue Protonix 40 mg twice daily 30 minutes before breakfast/dinner -Repeat EGD in 12 weeks -Notify the doctor if you have any problems. -Follow up with PCP. -Office number [phone]. [facility] Work Phone: Hospital Discharge instructions Additional Instructions DISCHARGE INSTRUCTIONS FOR UPPER ENDOSCOPY WHAT TO EXPECT: - You may feel full, gassy or cramping after your procedure. In some cases, this may be from a few hours to a day. Walking may help relieve the discomfort. - Your throat may feel sore today from the scope that the doctor passed through your throat to visualize your stomach. Take a throat lozenge or suck on ice to ease the discomfort. - You may notice some streaks of blood in your sputum if the doctor has taken a biopsy. - You should begin to recover from anesthesia within 1 hour of the procedure, however may feel groggy for the next 24 hours. DO's AND DON'Ts: - Call your doctor right away if you have a hard abdomen, severe pain, vomiting or if you cough up large amounts of blood. - Call your doctor if you develop any rashes, hives or difficulty breathing. - If you take 81 mg aspirin for your heart it is safe to resume this medication. - If you take other blood thinner medications your doctor will instruct you when these can safely be resumed. - Do NOT drive for 24 hours. - Do NOT operate machinery such as power tools, [employer]ediess, [employer], [employer] machines, etc. for 24 hours. - Avoid alcoholic beverages and drugs for allergies, nerves, or sleep. - Do NOT stay alone. Do NOT leave your child unattended. - Do NOT make important personal or business decisions or sign any legal documents. - Eat solid foods and drink liquids in smaller amounts than usual until normal appetite returns. If you should experience an upset stomach, liquids high in sugar content (soda, Ross-Aid, non-acid juices) are recommended. - Do NOT smoke. - Do take it easy today. You need not stay in bed, but avoid strenuous activities such as jogging or working out. FOLLOW UP & RECOMMENDATIONS: -Nexium 40 mg twice daily -Notify the doctor if you have any problems. -Follow up with PCP. -Office number [phone]. [facility] Work Phone: InstructionsNot on filedocumented in this encounter [facility] SystemInstructionsNot on filedocumented in this encounter [facility] SystemInstructionsNot on filedocumented in this encounter [facility] x[employer] SystemInstructionsNot on filedocumented in this encounter [facility] System[facility]ructionsNot on filedocumented in this encounter [facility] on filedocumented in this encounter [facility]ructionsNot on filedocumented in this encounter [facility]ructionsNot on filedocumented in this encounter [facility]ructionsNot on filedocumented in this encounter [facility]ructionsNot on filedocumented in this encounter [facility]ructionsNot on filedocumented in this encounter [facility] System[facility]ructionsNot on filedocumented in this encounter [facility] System[facility]ructionsNot on filedocumented in this encounter [facility]ructionsNot on filedocumented in this encounter [facility]ructionsNot on filedocumented in this encounter [facility]ructionsNot on filedocumented in this encounter [facility]ructionsNot on filedocumented in this encounter [facility] SystemInstructionsNot on filedocumented in this encounter [facility] SystemInstructionsNot on filedocumented in this encounter [facility] System[facility] note No data available for this section [facility] reason for referral (narrative)* Diagnostic Procedure Only (Routine) - Pending Review Specialty Diagnoses / Procedures Referred By Contac t Referred To Contact XR IMAGING Diagnoses S/P lumbar fusion Procedures XR LUMBAR LIMITED 2V AP/LAT RADEX SPINE LUMBOSACRAL 2/3 VIEWS Graham Mahmood PA-C [address] [place] [address] Xr Imaging Referral ID Status Reason Start Date Expiration Date Visits Requested Visits Authorized [id number] Pending Review Auto-Generat ed Referral 05/20/2022 06/19/2023 1 1 [facility] for referral (narrative)* Diagnostic Procedure Only (Routine) - Closed Specialty Diagnoses / Procedures Referred By Contac t Referred To Contact XR IMAGING Diagnoses S/P lumbar fusion Procedures XR LUMBAR LIMITED 2V AP/LAT RADEX SPINE LUMBOSACRAL 2/3 VIEWS Graham Mahmood PA-C [address] [address] Xr Imaging Referral ID Status Reason Start Date Expiration Date V isits Requested Visits Authorized [id number] Closed Auto-Generate d Referral 05/20/2022 06/19/2023 1 1 [facility] for referral (narrative)* Diagnostic Procedure Only (Routine) - Pending Review Specialty Diagnoses / Procedures Referred By Contac t Referred To Contact XR IMAGING Diagnoses Chronic low back pain, unspecified back pain laterality, unspecified whether sciatica present Procedures XR LUMBAR LIMITED 2V AP/LAT RADEX SPINE LUMBOSACRAL 2/3 VIEWS Sonali Mora PA-C [address] [place] [address] Xr Imaging Referral ID Status Reason Start Date Expiration Date Visits Requested Visits Authorized [id number] Pending Review Auto-Generat ed Referral 11/17/2022 12/17/2023 1 1 [facility] for referral (narrative)* Diagnostic Procedure Only (Routine) - Authorized Specialty Diagnoses / Procedures Referred By Contac t Referred To Contact XR IMAGING Diagnoses Pain Procedures XR SHOULDER GENERAL 3V OR MORE AP/TRUE AP/OTHER RIGHT RADEX SHOULDER COMPLETE MINIMUM 2 VIEWS Hung Jacobsen MD [address] [place] [address] Xr Imaging Referral ID Status Reason Start Date Expiration Date Visits Requested Visits Authorized [id number] Authorized Auto-Generat ed Referral 12/21/2022 01/20/2024 1 1 [facility] for referral (narrative)* Diagnostic Procedure Only (Routine) - Closed Specialty Diagnoses / Procedures Referred By Contac t Referred To Contact XR IMAGING Diagnoses Pain Procedures XR SHOULDER GENERAL 3V OR MORE AP/TRUE AP/OTHER RIGHT RADEX SHOULDER COMPLETE MINIMUM 2 VIEWS Hung Jacobsen MD [address] [place] [address] Xr Imaging Referral ID Status Reason Start Date Expiration Date V isits Requested Visits Authorized [id number] Closed Auto-Generate d Referral 12/21/2022 01/20/2024 1 1 [facility] for referral (narrative)* Diagnostic Procedure Only (Routine) - Closed Specialty Diagnoses / Procedures Referred By Contac t Referred To Contact XR IMAGING Diagnoses Chronic low back pain, unspecified back pain laterality, unspecified whether sciatica present Procedures XR LUMBAR LIMITED 2V AP/LAT RADEX SPINE LUMBOSACRAL 2/3 VIEWS Sonali Mora PA-C [address] [place] [address] Xr Imaging [id number] Referral ID Status Reason Start Date Expiration Date V isits Requested Visits Authorized [id number] Closed Auto-Generate d Referral 11/17/2022 12/17/2023 1 1 [facility] for referral (narrative)* Outpatient Procedure (Routine) - Pending Review Specialty Diagnoses / Procedures Referred By Contac t Referred To [facility] Diagnoses Pre-op exam Procedures ECG COMPLETE ECG ROUTINE ECG W/LEAST 12 LDS W/I&R Av Pre Anes [address] [place] [address] [facility] [place] [address] Referral ID Status Reason Start Date Expiration Date Visits Requested Visits Authorized [id number] Pending Review Auto-Generat ed Referral 3 07/30/2024 1 1 [facility] for [facility] (narrative)* Diagnostic Procedure Only (Routine) - Closed Specialty Diagnoses / Procedures Referred By Contac t Referred To Contact XR IMAGING Diagnoses S/P lumbar fusion Procedures XR SCOLIOSIS PA STAND/LAT 2V RADEX ENTIR THRC LMBR CRV SAC SPI W/SKULL 2/3 Mahesh Denis MD [address] [place], [place] [id number] [place] [address] Referral ID Status Reason Start Date Expiration Date V isits Requested Visits Authorized [id number] Closed Auto-Generate d Referral 10/09/2023 11/07/2024 1 1 [facility] for referral (narrative)* Diagnostic Procedure Only (Routine) - Closed Specialty Diagnoses / Procedures Referred By Contac t Referred To Contact XR IMAGING Diagnoses S/P lumbar fusion Procedures XR SCOLIOSIS PA STAND/LAT 2V RADEX ENTIR THRC LMBR CRV SAC SPI W/SKULL 2/3 Mahesh Denis MD [address] [place], [place] [phone] Xr Imaging [place] [address] Referral ID Status Reason Start Date Expiration Date V isits Requested Visits Authorized [id number] Closed Auto-Generate d Referral 10/09/2023 11/07/2024 1 1 [facility] for referral (narrative)* Diagnostic Procedure Only (Routine) - Authorized Specialty Diagnoses / Procedures Referred By Contac t Referred To Contact XR IMAGING Diagnoses Pain Procedures XR SHOULDER GENERAL 3V OR MORE AP/TRUE AP/OTHER RIGHT RADEX SHOULDER COMPLETE MINIMUM 2 VIEWS Hung Jacobsen MD [address] [place] [address] [place] [address] Referral ID Status Reason Start Date Expiration Date Visits Requested Visits Authorized [id number] Authorized Auto-Generat ed Referral 11/14/2023 12/13/2024 1 1 * Diagnostic Procedure Only (Routine) - Authorized Specialty Diagnoses / Procedures Referred By Contac t Referred To Contact XR IMAGING Diagnoses Pain Procedures XR SHOULDER GENERAL 3V OR MORE AP/TRUE AP/OTHER LEFT RADEX SHOULDER COMPLETE MINIMUM 2 VIEWS Hung Jacobsen MD [address] [place] [address] [place] [address] Referral ID Status Reason Start Date Expiration Date Visits Requested Visits Authorized [id number] Authorized Auto-Generat ed Referral 11/14/2023 12/13/2024 1 1 [facility] for referral (narrative)* Diagnostic Procedure Only (Routine) - Closed Specialty Diagnoses / Procedures Referred By Contac t Referred To Contact XR IMAGING Diagnoses Pain Procedures XR SHOULDER GENERAL 3V OR MORE AP/TRUE AP/OTHER RIGHT RADEX SHOULDER COMPLETE MINIMUM 2 VIEWS Hung Jacobsen MD [address] [place] [phone] Xr Imaging [id number] Referral ID Status Reason Start Date Expiration Date V isits Requested Visits Authorized [id number] Closed Auto-Generate d Referral 11/14/2023 12/13/2024 1 1 * Diagnostic Procedure Only (Routine) - Closed Specialty Diagnoses / Procedures Referred By Contac t Referred To Contact XR IMAGING Diagnoses Pain Procedures XR SHOULDER GENERAL 3V OR MORE AP/TRUE AP/OTHER LEFT RADEX SHOULDER COMPLETE MINIMUM 2 VIEWS Hung Jacobsen MD [address] [place] [address] Xr Imaging [id number] Referral ID Status Reason Start Date Expiration Date V isits Requested Visits Authorized [id number] Closed Auto-Generate d Referral 11/14/2023 12/13/2024 1 1 [facility] for referral (narrative)* Diagnostic Procedure Only (Routine) - Pending Review Specialty Diagnoses / Procedures Referred By Contac t Referred To Contact XR IMAGING Diagnoses S/P lumbar fusion Flat back syndrome, postprocedural Pseudarthrosis following spinal fusion Procedures XR SCOLIOSIS PA STAND/LAT 2V RADEX ENTIR THRC LMBR CRV SAC SPI W/SKULL 2/3 VW Mahesh Small MD [address] [place] [address] Xr Imaging [id number] Referral ID Status Reason Start Date Expiration Date Visits Requested Visits Authorized [id number] Pending Review Auto-Generat ed Referral 08/22/2024 03/21/2025 1 1 [facility] for referral (narrative)* Diagnostic Procedure Only (Routine) - New Request Specialty Diagnoses / Procedures Referred By Contac t Referred To Contact XR IMAGING Diagnoses Chronic left shoulder pain Procedures XR SHOULDER GENERAL 3V OR MORE AP/TRUE AP/OTHER RIGHT RADEX SHOULDER COMPLETE MINIMUM 2 VIEWS Hung Jacobsen MD [address] [place] [phone] Xr Imaging [id number] Referral ID Status Reason Start Date Expiration Date Visits Requested Visits Authorized [id number] New Request Auto-Generat ed Referral 07/19/2024 08/18/2025 1 1 * Diagnostic Procedure Only (Routine) - New Request Specialty Diagnoses / Procedures Referred By Contac t Referred To Contact XR IMAGING Diagnoses Chronic left shoulder pain Procedures XR SHOULDER GENERAL 3V OR MORE AP/TRUE AP/OTHER LEFT RADEX SHOULDER COMPLETE MINIMUM 2 VIEWS Hung Jacobsen MD [address] [place] [address] Xr Imaging [id number] Referral ID Status Reason Start Date Expiration Date Visits Requested Visits Authorized [id number] New Request Auto-Generat ed Referral 07/19/2024 08/18/2025 1 1 [facility] for referral (narrative)* Diagnostic Procedure Only (Routine) - New Request Specialty Diagnoses / Procedures Referred By Contac t Referred To Contact XR IMAGING Diagnoses Aftercare following left shoulder joint replacement surgery Procedures XR SHOULDER GENERAL 3V OR MORE AP/TRUE AP/OTHER LEFT RADEX SHOULDER COMPLETE MINIMUM 2 VIEWS Tamera Pineda, CONVEYOR TECHNICIAN.OFFSHORING MANAGER [address] [place] [phone] [place] [address] Referral ID Status Reason Start Date Expiration Date Visits Requested Visits Authorized [id number] New Request Auto-Generat ed Referral 09/07/2025 1 1 [facility] for referral (narrative)* Diagnostic Procedure Only (Routine) - Closed Specialty Diagnoses / Procedures Referred By Contac t Referred To Contact XR IMAGING Diagnoses Chronic left shoulder pain Procedures XR SHOULDER GENERAL 3V OR MORE AP/TRUE AP/OTHER LEFT RADEX SHOULDER COMPLETE MINIMUM 2 VIEWS Hung Jacobsen MD [address] [place] [phone] Xr Imaging [place] [address] Referral ID Status Reason Start Date Expiration Date V isits Requested Visits Authorized [id number] Closed Auto-Generate d Referral 07/02/2024 08/01/2025 1 1 [facility] for referral (narrative)* Diagnostic Procedure Only (Routine) - New Request Specialty Diagnoses / Procedures Referred By Contac t Referred To Contact XR IMAGING Diagnoses S/P lumbar fusion Flat back syndrome, postprocedural Procedures XR SCOLIOSIS PA STAND/LAT 2V RADEX ENTIR THRC LMBR CRV SAC SPI W/SKULL 2/3 Mahesh Small MD [address] [place] [address] Xr Imaging [id number] Referral ID Status Reason Start Date Expiration Date Visits Requested Visits Authorized [id number] New Request Auto-Generat ed Referral 08/27/2025 09/26/2025 1 1 [facility] for referral (narrative)* Diagnostic Procedure Only (Routine) - Authorized Specialty Diagnoses / Procedures Referred By Contac t Referred To Contact XR IMAGING Diagnoses Aftercare following left shoulder joint replacement surgery Procedures XR SHOULDER GENERAL 3V OR MORE AP/TRUE AP/OTHER LEFT RADEX SHOULDER COMPLETE MINIMUM 2 VIEWS Hung Jacobsen MD [address] [place] [address] [place] [address] Referral ID Status Reason Start Date Expiration Date Visits Requested Visits Authorized [id number] Authorized Auto-Generat ed Referral 09/03/2024 10/03/2025 1 1 [facility] for referral (narrative)* Diagnostic Procedure Only (Routine) - Closed Specialty Diagnoses / Procedures Referred By Contac t Referred To Contact XR IMAGING Diagnoses Chronic left shoulder pain Procedures XR SHOULDER GENERAL 3V OR MORE AP/TRUE AP/OTHER LEFT RADEX SHOULDER COMPLETE MINIMUM 2 VIEWS Hung Jacobsen MD [address] [facility] [phone] Xr Imaging [id number] Referral ID Status Reason Start Date Expiration Date V isits Requested Visits Authorized [id number] Closed Auto-Generate d Referral 07/02/2024 08/01/2025 1 1 [facility] for referral (narrative)* Consultation (Routine) - Pending Review Specialty Diagnoses / Procedures Referred By Contac t Referred To Contact Vascular Surgery Diagnoses Stenosis of right internal carotid artery Lyubov Butt DO [address] [place] [address] Julio Quispe MD [address], [address] [address] Referral ID Status Reason Start Date Expiration Date Visits Requested Visits Authorized [id number] Pending Review Specialty Services Required 04/25/2024 04/25/2025 1 1 [facility] for referral (narrative)* Medication Prior Authorization - Pending Review Specialty Diagnoses / Procedures Referred By Contac t Referred To Contact Armando Richards MD [address] [place] [address], 1 [place] [address] Phone: tel: fax: Referral ID Status Reason Start Date Expiration Date V isits Requested Visits Authorized [id number] Pending Review 1 1 [facility] for visit NarrativeDISCUSS OPTIONS FOR PROCEDURE [employer] Other Reason for visit Narrative* Diagnostic Procedure Only (Routine) - Closed Specialty Diagnoses / Procedures Referred By Contac t Referred To Contact XR IMAGING Diagnoses Pain Procedures XR SHOULDER GENERAL 3V OR MORE AP/TRUE AP/OTHER RIGHT RADEX SHOULDER COMPLETE MINIMUM 2 VIEWS Hung Jacobsen MD [address] [place] [address] Xr Imaging Referral ID Status Reason Start Date Expiration Date V isits Requested Visits Authorized [id number] Closed Auto-Generate d Referral 12/21/2022 01/20/2024 1 1 [facility] for visit Narrative* Diagnostic Procedure Only (Routine) - Closed Specialty Diagnoses / Procedures Referred By Contac t Referred To Contact XR IMAGING Diagnoses Chronic low back pain, unspecified back pain laterality, unspecified whether sciatica present Procedures XR LUMBAR LIMITED 2V AP/LAT RADEX SPINE LUMBOSACRAL 2/3 VIEWS Sonali Mora PA-C [address] [place] [address] Xr Imaging [place] [address] Referral ID Status Reason Start Date Expiration Date V isits Requested Visits Authorized [id number] Closed Auto-Generate d Referral 11/17/2022 12/17/2023 1 1 [facility] for visit Narrative* Diagnostic Procedure Only (Routine) - Closed Specialty Diagnoses / Procedures Referred By Contac t Referred To Contact XR IMAGING Diagnoses S/P lumbar fusion Procedures XR SCOLIOSIS PA STAND/LAT 2V RADEX ENTIR THRC LMBR CRV SAC SPI W/SKULL 2/3 VW Mahesh Small MD [address] [place] [address] Xr Imaging [place] [address] Referral ID Status Reason Start Date Expiration Date V isits Requested Visits Authorized [id number] Closed Auto-Generate d Referral 10/09/2023 11/07/2024 1 1 [facility] for visit Narrative* Diagnostic Procedure Only (Routine) - Closed Specialty Diagnoses / Procedures Referred By Contac t Referred To Contact XR IMAGING Diagnoses S/P lumbar fusion Flat back syndrome, postprocedural Pseudarthrosis following spinal fusion Procedures XR SCOLIOSIS PA STAND/LAT 2V RADEX ENTIR THRC LMBR CRV SAC SPI W/SKULL 2/3 VW Mahesh mSall MD [address] [place] [address] Xr Imaging [place] [address] Referral ID Status Reason Start Date Expiration Date V isits Requested Visits Authorized [id number] Closed Auto-Generate d Referral 08/22/2024 03/21/2025 1 1 [facility] for visit Narrative* Consult, Test, Treat (Routine) - Closed Specialty Diagnoses / Procedures Referred By Contac t Referred To Contact Diagnoses Chronic right shoulder pain Pre-op testing Procedures REFER TO [facility] / [facility] - PREOPERATIVE OPTIMIZATION OFFICE/OUTPATIENT [facility] 60 MINUTES Hung Jacobsen MD [address] [place] [address] Phone: tel: fax: Referral ID Status Reason Start Date Expiration Date V isits Requested Visits Authorized [id number] Closed PCP Requested Referral 10/29/2024 10/29/2025 1 1 [facility] for visit Narrative* Diagnostic Procedure Only (Routine) - Closed Specialty Diagnoses / Procedures Referred By Contac t Referred To Contact XR IMAGING Diagnoses Chronic right shoulder pain Procedures XR SHOULDER GENERAL 3V OR MORE AP/TRUE AP/OTHER RIGHT RADEX SHOULDER COMPLETE MINIMUM 2 VIEWS Hung Jacobsen MD [address] [place] [address] Phone: tel: fax: XR IMAGING [id number] Referral ID Status Reason Start Date Expiration Date V isits Requested Visits Authorized [id number] Closed Auto-Generate d Referral 10/29/2024 11/28/2025 1 1 [facility] Summary Purpose Family History No Family History Records Found Relationship Condition Age at Onset Recorded Date/T cristhian brother Malignant neoplasm Unknown Relationship Condition Age at Onset Recorded Date/T cristhian brother Malignant neoplasm Unknown natural son Malignant neoplasm of stomach Unknown sister Malignant neoplasm of breast Unknown natural son Leukodystrophy Unknown Relationship Condition Age at Onset Recorded Date/T cristhian brother Malignant neoplasm Unknown son Malignant neoplasm of stomach Unknown sister Malignant neoplasm of breast Unknown son Leukodystrophy Unknown father Unknown mother Unknown son Unknown Advance Directives No Advanced Directives Records Found Date Activated Date Inactivated Comments 03/24/2024 4:54 PM Date Activated Date Inactivated Comments 03/23/2021 5:11 PM 03/26/2021 12:09 PM Advance Directive Response Recorded Date/ Time Advance Directives No September 08, 2021 3:13pm Advance Directive Response Recorded Date/ Time Advance Directives No September 08, 2021 2:13pm Date Activated Date Inactivated Comments 03/24/2024 4:54 PM 03/25/2024 11:31 PM Latest Code Status on File Code Status Date Activated Date Inactivated Comments Full Code 03/23/2021 5:11 PM 03/26/2021 12:09 PM Date Activated Date Inactivated Comments 03/23/2021 5:11 PM 03/26/2021 12:09 PM Date Activated Date Inactivated Comments 03/24/2024 4:54 PM 03/25/2024 11:31 PM Date Activated Date Inactivated Comments 03/23/2021 5:11 PM 03/26/2021 12:09 PM Date Activated Date Inactivated Comments 12/16/2024 2:06 PM 12/17/2024 3:36 PM Question Answer Comments Full Code Order Discussed With: Patient Date Activated Date Inactivated Comments 12/16/2024 2:06 PM 12/17/2024 3:36 PM Question Answer Comments Full Code Order Discussed With: Patient Chief Complaint and Reason for Visit Chief Complaint Scoliosis Scoliosis Scoliosis Scoliosis S/P Multi-Level Fusion m41.86 z98.1 Reason for Visit Corticosteroid use Delirium Diabetes mellitus, type 2 Elevated blood pressure reading Hyperglycemia Lumbar scoliosis COPD (chronic obstructive pulmonary disease) Delirium Diabetes mellitus, type 2 Elevated blood pressure reading Fusion of lumbar spine HTN (hypertension) Hyperglycemia Impaired mobility and activities of daily living Lumbar scoliosis Pain Sleep apnea Chief Complaint See order Chief Complaint See order M48.062 Chief Complaint m25.511 Chief Complaint solid food dysphagia esphagitis, gastritis Chief Complaint Esophagitis Chief Complaint Admit Date Unknown October 29, 2024 1:1 8pm Reason for Referral Specialty Diagnoses / Procedures Referred By Contac t Referred To Contact Diagnoses Bilateral carotid artery stenosis Procedures Vas carotid duplex bilateral Julio Quispe MD [address], [place] [address] [place] [address] Referral ID Status Reason Start Date Expiration Date V isits Requested Visits Authorized [id number] Pending Review 05/28/2024 05/28/2025 1 1 Specialty Diagnoses / Procedures Referred By Contac t Referred To Contact Diagnoses Cerebrovascular accident (CVA), unspecified mechanism ([facility]) Other cerebrovascular vasospasm and vasoconstriction Procedures Event Monitor (In Office) Edinson Lowery PA-C [address] [place] [address] Referral ID Status Reason Start Date Expiration Date V isits Requested Visits Authorized [id number] Pending Review 03/27/2024 03/27/2025 1 1 Specialty Diagnoses / Procedures Referred By Contac t Referred To Contact Diagnoses Chronic left shoulder pain Pre-operative clearance Procedures REFER TO PACC / [facility] - PREOPERATIVE OPTIMIZATION OFFICE/OUTPATIENT NEW [facility] M[facility] 60 MINUTES Hung Jacobsen MD [address] [place] [address] Referral ID Status Reason Start Date Expiration Date Visits Requested Visits Authorized [id number] Authorized PCP Requested Referral 4 07/02/2025 1 1 Specialty Diagnoses / Procedures Referred By Contac t Referred To Contact XR IMAGING Diagnoses Chronic left shoulder pain Procedures XR SHOULDER GENERAL 3V OR MORE AP/TRUE AP/OTHER LEFT RADEX SHOULDER COMPLETE MINIMUM 2 VIEWS Hung Jacobsen MD [address] [place] [address] [place] [address] Referral ID Status Reason Start Date Expiration Date Visits Requested Visits Authorized [id number] New Request Auto-Generat ed Referral 4 08/01/2025 1 1 Specialty Diagnoses / Procedures Referred By Contac t Referred To Contact [facility] Diagnoses Chronic left shoulder pain Pre-operative clearance Procedures ECG COMPLETE ECG ROUTINE ECG W/LEAST 12 LDS W/I&R Hung Jacobsen MD [address] [place] [phone] [facility] [place] [address] [place] [phone] Referral ID Status Reason Start Date Expiration Date Visits Requested Visits Authorized [id number] New Request Auto-Generat ed Referral 4 07/02/2025 1 1 Referral ID Status Reason Start Date Expiration Date Visits Requested Visits Authorized [id number] New Request Auto-Generat ed Referral 4 08/01/2025 1 1 Specialty Diagnoses / Procedures Referred By Contac t Referred To Contact CT IMAGING Diagnoses Chronic left shoulder pain Procedures CT SHOULDER WO IVCON LEFT CT UPPER EXTREMITY W/O CONTRAST MATERIAL Hung Jacobsen MD [address] [place] [phone] [address] Imaging [id number] Referral ID Status Reason Start Date Expiration Date Visits Requested Visits Authorized [id number] New Request Auto-Generat ed Referral 06/18/2024 07/18/2025 1 1 Specialty Diagnoses / Procedures Referred By Contac t Referred To Contact CT IMAGING Diagnoses S/P lumbar spinal fusion Flat back syndrome, postprocedural Procedures CT LUMBAR SPINE WO IVCON CT LUMBAR SPINE W/O CONTRAST MATERIAL Mahesh Small MD [address] [place] [address] Referral ID Status Reason Start Date Expiration Date Visits Requested Visits Authorized [id number] Authorized Auto-Generat ed Referral 12/13/2022 01/12/2024 1 1 Reason Evaluate and Treat L eg Strengthening and Core Strengthening Diagnosis 1 Scoliosis of lumbar region due to degenerative disease of spine in adult (M41.86) Referral Organization [facility] urosurger Referring Provider First Name Sharda Referring Provider Last Name Kevin Referring Provider Specialty Neurosurger y Referred Organization Unknown Facility Referred Provider Specialty Physical The rapist Referral Priority Routine Reason *Waiting for appt Evaluate and Treat SHU Diagnosis 1 Lumbar stenosis with neurogenic claudication (M48.062) Referral Organization [facility] Referring Provider First Name Sharda Referring Provider Last Name Kevin Referring Provider Specialty Neurosurger y Referred Organization [facility] Pain Managemen t Referred Provider Valdo Goode Referred Address [address] [facility] [address] ,[place], [place],[address] Referred Provider Specialty Pain Medicin e Referral Priority Routine General Notes Rupal Thorne 022 01:47:43 PM >Received today and sent P2P Reason Evaluate and Treat S trengthening Diagnosis 1 Lumbar stenosis with neurogenic claudication (M48.062) Referral Organization [facility] Referring Provider First Name Sharda Referring Provider Last Name Kevin Referring Provider Specialty Neurosurger y Referred Organization [facility] Referred Address [address] ,[place],[address] Referred Provider Specialty Physical The rapist Referral Priority Routine Reason *FU 08/16 Evaluate EMG BLE Diagnosis 1 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) Referral Organization [facility] Referring Provider First Name Sharda Referring Provider Last Name Kevin Referring Provider Specialty Neurosurger y Referred Organization [facility] Referred Provider Edelmira Byrnes Referred Address [address] [facility],[place], [place],[address] Referred Provider Specialty Neurology Referral Priority Routine General Notes Rupal Thorne 021 10:30:17 AM >Received today and will hold referral until office [facility] 08/05/2021 09:34:30 AM >[facility] request us to fill out their form and attach to Referral and send it to them and they will call patient to schedule. Referral was sent P2P Specialty Diagnoses / Procedures Referred By Bryan t Referred To Contact Diagnoses S/P lumbar spinal fusion Quadriceps weakness Atrophy of quadriceps femoris muscle Left thigh pain Spinal stenosis of lumbar region, unspecified whether neurogenic claudication present Lumbar radiculopathy, chronic Procedures CONSULT TO SPINE SURGERY OFFICE/OUTPATIENT [facility] 60-[place] [address] [place] [address] Referral ID Status Reason Start Date Expiration Date V isits Requested Visits Authorized [id number] Pending Review 01/26/2022 04/26/2022 1 1 Specialty Diagnoses / Procedures Referred By Bryan t Referred To Contact [facility] Diagnoses S/P lumbar spinal fusion Quadriceps weakness Atrophy of quadriceps femoris muscle Left thigh pain Spinal stenosis of lumbar region, unspecified whether neurogenic claudication present Lumbar radiculopathy, chronic Procedures EMG(NEURO/NI) NERVE CONDUCTION STUDIES 9-[place] [address] [place] [address] [facility] [place] [address] [place] [address] Referral ID Status Reason Start Date Expiration Date Visits Requested Visits Authorized [id number] Authorized Auto-Generat ed Referral 01/26/2022 01/26/2023 1 1 Medications Administered Section Inactive Administered Medications - up to 3 most recent administrations Medication Order MAR Action Action Date Dose Rate Site betamethasone acetate-betamethasone sodium phosphate 6 mg injection (CELESTONE) 6 mg, Injection - FOR ORTHO USE ONLY, ONE TIME INJECTION, 1 dose, Starting on Mon03/08/23 at 1559, Until Mon03/08/23 at 1559 Given 03/08/2023 3:59 PM EDT 6 mg Shoul fauzia, Right lidocaine (PF) 10 mg/mL (1 %) 4 mL injection (XYLOCAINE) 4 mL, Injection - FOR ORTHO USE ONLY, ONE TIME INJECTION, 1 dose, Starting on Mon03/08/23 at 1559, Until Mon03/08/23 at 1559 Given 03/08/2023 3:59 PM EDT 4 mL Shoul fauzia, Right ROPivacaine (PF) 5 mg/mL (0.5 %) 2 mL injection (NAROPIN) 2 mL, Injection - FOR ORTHO USE ONLY, ONE TIME INJECTION, 1 dose, Starting on Mon03/08/23 at 1559, Until Mon03/08/23 at 1559 Given 03/08/2023 3:59 PM EDT 2 mL Shoul fauzia, Right Additional Source Comments (unrecognized sect ion and content) No Status Records FoundNo Status Records FoundNo Status Records FoundNo Status Records FoundNo Status Records FoundNo Status Records FoundNo Status Records FoundNo Status Records FoundNo Status Records FoundNo Status Records FoundNo Status Records FoundNo Status Records FoundNo Status Records FoundNo Status Records Found INFORMATION SOURCE (unrecogn ized section and content) DATE CREATED AUTHOR 05/18/2019 [facility] DATE CREATED AUTHOR AUTHOR'S ORGANIZ ATION 07/19/2019 [facility] DATE CREATED AUTHOR AUTHOR'S ORGANIZ ATION 03/12/2022 [facility] dical Specialist DATE CREATED AUTHOR AUTHOR'S ORGANIZ ATION 01/23/2023 [facility] DATE CREATED AUTHOR AUTHOR'S ORGANIZ ATION 03/09/2023 [facility] DATE CREATED AUTHOR AUTHOR'S ORGANIZ ATION 06/22/2024 [facility] DATE CREATED AUTHOR AUTHOR'S ORGANIZ ATION 10/27/2024 [facility] EPIC DATE CREATED AUTHOR AUTHOR'S ORGANIZ ATION 11/01/2024 [facility] DATE CREATED AUTHOR AUTHOR'S ORGANIZ ATION 11/22/2024 [facility] DATE CREATED AUTHOR AUTHOR'S ORGANIZ ATION 12/06/2024 [facility] DATE CREATED AUTHOR AUTHOR'S ORGANIZ ATION 12/22/2024 [facility] DATE CREATED AUTHOR AUTHOR'S ORGANIZ ATION 12/25/2024 [facility] DATE CREATED AUTHOR AUTHOR'S ORGANIZ ATION 12/30/2024 [facility] DATE CREATED AUTHOR AUTHOR'S ORGANIZ ATION 01/01/2025 [facility] Care Teams (unrecognized sec tion and content) Team Status: Inactive Member Role Status Dates Armando Richards MD Primary Care Provider Active Sharda Brown MD Attending Provider Active Team Status: Inactive Member Role Status Dates Armando Richards MD Primary Care Provider Active Rajiv De La O MD Admit Provider, Attending Provider A ctnany Beauchamp , ALIYAH Other Provider Active Yasmine Borden , RN Other Provider Active Kassi Jensen , RN Other Provider Active Andra John , RN Other Provider Active Tameka De La Cruz , ALIYAH Other Provider Active Liliana Busby , ALIYAH Other Provider Active Jesica Amanda , ALIYAH Other Provider Active Adrian Lou MD Other Provider Active Charles Nunez MD Other Provider Active Jackie Paz APRN Other Provider Active Marie Hayes DO Other Provider Active Geoff Smith MD Other Provider Active Cory Reese , DO Other Provider Active Alejandro Painter MD Other Provider Active Carmenza Hughes MD Other Provider Active Rivera Saenz MD Other Provider Active Naomi Aviles , ANP- Other Provider Active Zoe Owen MD Other Provider Active Chele Napier MD Other Provider Active Dunia Lux MD Other Provider Active Davis Haji MD Other Provider Active Marty Martínez , DO Other Provider Active Eva Mathur MD Other Provider Active Joesph Cherry MD Other Provider Active Thuy Youssef MD Other Provider Active German Steward MD Other Provider Active Belem Mckay , FRAME ALIGNER-C Other Provider Active Vinny Turk MD Other Provider Active Yuniel Anderson MD Other Provider Active Dillon Patton MD Other Provider Active Seun Rae MD Other Provider Active Eloisa Boykin MD Other Provider Active Dillan Chau MD Other Provider Active Kevin Burgos MD Other Provider Active Stefania Sarmiento , DO Other Provider Active Joana Vasques MD Other Provider Active Jose Mendez , DO Other Provider Active Marco Herrmann , DO Other Provider Active Sana Trinh APRN Other Provider Active Jessi Jacobson RN Other Provider Active Hawk Mccann , DO Other Provider Active Team Status: Inactive Member Role Status Dates Armando Richards MD Primary Care Provider Active Sharda Brown MD Admit Provider, Attending Provid er Active Cory Reese , DO Other Provider Active Team Status: Active Member Role Status Dates Armando Richards MD Primary Care Provider Active Team Status: Inactive Member Role Status Dates Armando Richards MD Primary Care Provider Active Temi Dean NP Attending Provider Active Team Status: Inactive Member Role Status Dates Armando Richards MD Primary Care Provider Active Cortes Abarca MD Attending Provider Active Vehicle Calibration Engineer Relationship Specialty Start Date End Date Armando Richards [address] [place] [address], [address] [place] [address] PCP - General Internal Medicine 08/09/23 Vehicle Calibration Engineer Relationship Specialty Start Date End Date Armando Richards [address] [place] [address], [address] [place] [address] PCP - General Internal Medicine 08/09/23 Vehicle Calibration Engineer Relationship Specialty Start Date End Date Armando Richards [address] [place] [address], [address] [place] [address] PCP - General Internal Medicine 08/09/23 Vehicle Calibration Engineer Relationship Specialty Start Date End Date Armando Richards [address] [place] [address], [address] [place] [address] PCP - General Internal Medicine 08/09/23 Vehicle Calibration Engineer Relationship Specialty Start Date End Date Armando Richards [address] [place] [address], [address] [place] [address] PCP - General Internal Medicine 08/09/23 Vehicle Calibration Engineer Relationship Specialty Start Date End Date Armando Richards [address] [place] [address], [address] [place] [address] PCP - General Internal Medicine 08/09/23 Vehicle Calibration Engineer Relationship Specialty Start Date End Date Armando Richards [address] [place] [address], [address] [place] [address] PCP - General Internal Medicine 08/09/23 Vehicle Calibration Engineer Relationship Specialty Start Date End Date Armando Richards [address] [place] [address], [address] [place] [address] PCP - General Internal Medicine 08/09/23 Vehicle Calibration Engineer Relationship Specialty Start Date End Date Armando Richards [address] [place] [address], [address] [place] [address] PCP - General Internal Medicine 08/09/23 Vehicle Calibration Engineer Relationship Specialty Start Date End Date Armando Richards MD [address] [place] [address], [address] [place] [address] PCP - General Internal Medicine 08/09/23 Vehicle Calibration Engineer Relationship Specialty Start Date End Date Armando Richards MD [address] [place] [address], [address] [place] [address] PCP - General Internal Medicine 08/09/23 Vehicle Calibration Engineer Relationship Specialty Start Date End Date Armando Richards MD [address] [place] [address], [address] [place] [address] PCP - General Internal Medicine 08/09/23 Vehicle Calibration Engineer Relationship Specialty Start Date End Date Armando Richards MD [address] [place] [address], [address] [place] [address] PCP - General Internal Medicine 08/09/23 Vehicle Calibration Engineer Relationship Specialty Start Date End Date Armando Richards MD [address] [place] [address], [address] [place] [address] PCP - General Internal Medicine 08/09/23 Vehicle Calibration Engineer Relationship Specialty Start Date End Date Armando Richards MD [address] [place] [address], [address] [place] [address] PCP - General Internal Medicine 08/09/23 Vehicle Calibration Engineer Relationship Specialty Start Date End Date Armando Richards MD [address] [place] [address], [address] [place] [address] PCP - General Internal Medicine 08/09/23 Vehicle Calibration Engineer Relationship Specialty Start Date End Date Armando Richards MD [address] [place] [address], [address] [place] [address] PCP - General Internal Medicine 08/09/23 Vehicle Calibration Engineer Relationship Specialty Start Date End Date Armando Richards MD [address] [place] [address], [address] [place] [address] PCP - General Internal Medicine 08/09/23 Vehicle Calibration Engineer Relationship Specialty Start Date End Date Armando Richards MD [address] [place] [address], [address] [place] [address] PCP - General Pediatrics 12/10/23 Vehicle Calibration Engineer Relationship Specialty Start Date End Date Armando Richards MD [address] [place] [address], [address] [place] [address] PCP - General Internal Medicine 08/09/23 Vehicle Calibration Engineer Relationship Specialty Start Date End Date Armando Richards MD [address] [place] [address], [address] [place] [address] PCP - General Internal Medicine 08/09/23 Vehicle Calibration Engineer Relationship Specialty Start Date End Date Armando Richards MD [address] [place] [address], [address] [place] [address] PCP - General Internal Medicine 08/09/23 Vehicle Calibration Engineer Relationship Specialty Start Date End Date Armando Richards MD [address] [place] [address], [address] [place] [address] PCP - General Internal Medicine 08/09/23 Vehicle Calibration Engineer Relationship Specialty Start Date End Date Armando Richards MD [address] [place] [address], [address] [place] [address] PCP - General Pediatrics 12/10/23 Vehicle Calibration Engineer Relationship Specialty Start Date End Date Armando Richards MD [address] [place] [address], [address] [place] [address] PCP - General Pediatrics 06/05/17 Vehicle Calibration Engineer Relationship Specialty Start Date End Date Armando Richards MD [address] [place] [address], [address] [place] [address] PCP - General Pediatrics 12/10/23 Vehicle Calibration Engineer Relationship Specialty Start Date End Date Armando Richards MD [address] [place] [address], [address] [place] [address] PCP - General Pediatrics 12/10/23 Vehicle Calibration Engineer Relationship Specialty Start Date End Date Armando Richards MD [address] [place] [address], [address] [place] [address] PCP - General Pediatrics 12/10/23 Vehicle Calibration Engineer Relationship Specialty Start Date End Date Armando Richards MD [address] [place] [address], [address] [place] [address] PCP - General Pediatrics 06/05/17 Vehicle Calibration Engineer Relationship Specialty Start Date End Date Armando Richards MD [address] [place] [address], [address] [place] [address] PCP - General Pediatrics 06/05/17 Vehicle Calibration Engineer Relationship Specialty Start Date End Date Armando Richards MD [address] [place] [address], [address] [place] [address] PCP - General Pediatrics 12/10/23 Vehicle Calibration Engineer Relationship Specialty Start Date End Date Armando Richards MD [address] [place] [address], [address] [place] [address] PCP - General Pediatrics 06/05/17 Vehicle Calibration Engineer Relationship Specialty Start Date End Date Armando Richards MD [address] [place] [address], [address] [place] [address] PCP - General Pediatrics 06/05/17 Vehicle Calibration Engineer Relationship Specialty Start Date End Date Armando Richards MD [address] [place] [address], [address] [place] [address] PCP - General Pediatrics 06/05/17 Vehicle Calibration Engineer Relationship Specialty Start Date End Date Armando Richards MD [address] [place] [address], [address] [place] [address] PCP - General Pediatrics 12/10/23 Vehicle Calibration Engineer Relationship Specialty Start Date End Date Armando Richards MD [address] [place] [address], [address] [place] [address] PCP - General Pediatrics 12/10/23 Vehicle Calibration Engineer Relationship Specialty Start Date End Date Armando Richards MD [address] [place] [address], [address] [place] [address] PCP - General Pediatrics 12/10/23 Vehicle Calibration Engineer Relationship Specialty Start Date End Date Armando Richards MD [address] [place] [address], [address] [place] [address] PCP - General Pediatrics 12/10/23 Vehicle Calibration Engineer Relationship Specialty Start Date End Date Armando Richards MD [address] [place] [address], [address] [place] [address] PCP - General Pediatrics 12/10/23 Vehicle Calibration Engineer Relationship Specialty Start Date End Date Armando Richards MD [address] [place] [address], [address] [place] [address] PCP - General Pediatrics 06/05/17 Vehicle Calibration Engineer Relationship Specialty Start Date End Date Armando Richards MD [address] [place] [address], [address] [place] [address] PCP - General Pediatrics 12/10/23 Vehicle Calibration Engineer Relationship Specialty Start Date End Date Armando Richards MD [address] [place] [address], [address] [place] [address] PCP - General Pediatrics 12/10/23 Vehicle Calibration Engineer Relationship Specialty Start Date End Date Armando Richards MD [address] [place] [address], [address] [place] [address] PCP - General Pediatrics 12/10/23 Vehicle Calibration Engineer Relationship Specialty Start Date End Date Armando Richards MD [address] [place] [address], [address] [place] [address] PCP - General Pediatrics 12/10/23 Vehicle Calibration Engineer Relationship Specialty Start Date End Date Armando Richards MD [address] [place] [address], [address] [place] [address] PCP - General Pediatrics 12/10/23 Vehicle Calibration Engineer Relationship Specialty Start Date End Date Armando Richards MD [address] [place] [address], [address] [place] [address] PCP - General Pediatrics 12/10/23 Vehicle Calibration Engineer Relationship Specialty Start Date End Date Armando Richards MD [address] [place] [address], [address] [place] [address] PCP - General Pediatrics 12/10/23 Vehicle Calibration Engineer Relationship Specialty Start Date End Date Armando Richards MD [address] [place] [address], [address] [place] [address] PCP - General Pediatrics 12/10/23 Vehicle Calibration Engineer Relationship Specialty Start Date End Date Armando Richards MD [address] [place] [address], [address] [place] [address] PCP - General Pediatrics 12/10/23 Vehicle Calibration Engineer Relationship Specialty Start Date End Date Armando Richards MD [address] [place] [address], [address] [place] [address] PCP - General Internal Medicine 08/09/23 Vehicle Calibration Engineer Relationship Specialty Start Date End Date Armando Richards MD [address] [place] [address], [address] [place] [address] PCP - General Internal Medicine 08/09/23 Vehicle Calibration Engineer Relationship Specialty Start Date End Date Armando Richards MD [address] [place] [address], [address] [place] [address] PCP - General Internal Medicine 08/09/23 Vehicle Calibration Engineer Relationship Specialty Start Date End Date Armando Richards MD [address] [place] [address], [address] [place] [address] PCP - General Internal Medicine 08/09/23 Team Status: Inactive Member Role Status Dates Olu Sosa MD Attending Provider Active Start : October 29, 2024 End: October 29, 2024 Vehicle Calibration Engineer Relationship Specialty Start Date End Date Armando Richards MD [address] [place] [address], [address] [place] [address] PCP - General Pediatrics 12/10/23 Vehicle Calibration Engineer Relationship Specialty Start Date End Date Armando Richards MD [address] [place] [address], [address] [place] [address] PCP - General Internal Medicine 08/09/23 Vehicle Calibration Engineer Relationship Specialty Start Date End Date Armando Richards MD [address] [place] [address], [address] [place] [address] PCP - General Pediatrics 12/10/23 Vehicle Calibration Engineer Relationship Specialty Start Date End Date Armando Richards MD [address] [place] [address], [address] [place] [address] PCP - General Pediatrics 12/10/23 Vehicle Calibration Engineer Relationship Specialty Start Date End Date Armando Richards MD [address] [place] [address], [address] [place] [address] PCP - General Internal Medicine 08/09/23 Vehicle Calibration Engineer Relationship Specialty Start Date End Date Armando Richards MD [address] [place] [address], [address] [place] [address] PCP - General Internal Medicine 08/09/23 Source Comments (unrecognize d section and content) In the event this informatio n is protected by the Federal Confidentiality of Alcohol and Drug Abuse Patient Records regulations: The Federal rules restrict any use of the information to criminally investigate or prosecute any alcohol or drug abuse patient.[facility] the event this information is protected by the Federal Confidentiality of Alcohol and Drug Abuse Patient Records regulations: The Federal rules restrict any use of the information to criminally investigate or prosecute any alcohol or drug abuse patient.[facility] CenterIn the event this information is protected by the Federal Confidentiality of Alcohol and Drug Abuse Patient Records regulations: The Federal rules restrict any use of the information to criminally investigate or prosecute any alcohol or drug abuse patient.[facility] Center[facility] the event this information is protected by the Federal Confidentiality of Alcohol and Drug Abuse Patient Records regulations: The Federal rules restrict any use of the information to criminally investigate or prosecute any alcohol or drug abuse patient.[facility] CenterIn the event this information is protected by the Federal Confidentiality of Alcohol and Drug Abuse Patient Records regulations: The Federal rules restrict any use of the information to criminally investigate or prosecute any alcohol or drug abuse patient.[facility] CenterIn the event this information is protected by the Federal Confidentiality of Alcohol and Drug Abuse Patient Records regulations: The Federal rules restrict any use of the information to criminally investigate or prosecute any alcohol or drug abuse patient.[facility] CenterIn the event this information is protected by the Federal Confidentiality of Alcohol and Drug Abuse Patient Records regulations: The Federal rules restrict any use of the information to criminally investigate or prosecute any alcohol or drug abuse patient.[facility] CenterIn the event this information is protected by the Federal Confidentiality of Alcohol and Drug Abuse Patient Records regulations: The Federal rules restrict any use of the information to criminally investigate or prosecute any alcohol or drug abuse patient.[facility] CenterIn the event this information is protected by the Federal Confidentiality of Alcohol and Drug Abuse Patient Records regulations: The Federal rules restrict any use of the information to criminally investigate or prosecute any alcohol or drug abuse patient.[facility] CenterIn the event this information is protected by the Federal Confidentiality of Alcohol and Drug Abuse Patient Records regulations: The Federal rules restrict any use of the information to criminally investigate or prosecute any alcohol or drug abuse patient.[facility] CenterIn the event this information is protected by the Federal Confidentiality of Alcohol and Drug Abuse Patient Records regulations: The Federal rules restrict any use of the information to criminally investigate or prosecute any alcohol or drug abuse patient.[facility] CenterIn the event this information is protected by the Federal Confidentiality of Alcohol and Drug Abuse Patient Records regulations: The Federal rules restrict any use of the information to criminally investigate or prosecute any alcohol or drug abuse patient.[facility] CenterIn the event this information is protected by the Federal Confidentiality of Alcohol and Drug Abuse Patient Records regulations: The Federal rules restrict any use of the information to criminally investigate or prosecute any alcohol or drug abuse patient.[facility] CenterIn the event this information is protected by the Federal Confidentiality of Alcohol and Drug Abuse Patient Records regulations: The Federal rules restrict any use of the information to criminally investigate or prosecute any alcohol or drug abuse patient.[facility] CenterIn the event this information is protected by the Federal Confidentiality of Alcohol and Drug Abuse Patient Records regulations: The Federal rules restrict any use of the information to criminally investigate or prosecute any alcohol or drug abuse patient.[facility] CenterIn the event this information is protected by the Federal Confidentiality of Alcohol and Drug Abuse Patient Records regulations: The Federal rules restrict any use of the information to criminally investigate or prosecute any alcohol or drug abuse patient.[facility] CenterIn the event this information is protected by the Federal Confidentiality of Alcohol and Drug Abuse Patient Records regulations: The Federal rules restrict any use of the information to criminally investigate or prosecute any alcohol or drug abuse patient.[facility] CenterIn the event this information is protected by the Federal Confidentiality of Alcohol and Drug Abuse Patient Records regulations: The Federal rules restrict any use of the information to criminally investigate or prosecute any alcohol or drug abuse patient.[facility] CenterIn the event this information is protected by the Federal Confidentiality of Alcohol and Drug Abuse Patient Records regulations: The Federal rules restrict any use of the information to criminally investigate or prosecute any alcohol or drug abuse patient.[facility] CenterIn the event this information is protected by the Federal Confidentiality of Alcohol and Drug Abuse Patient Records regulations: The Federal rules restrict any use of the information to criminally investigate or prosecute any alcohol or drug abuse patient.[facility] CenterIn the event this information is protected by the Federal Confidentiality of Alcohol and Drug Abuse Patient Records regulations: The Federal rules restrict any use of the information to criminally investigate or prosecute any alcohol or drug abuse patient.[facility] CenterIn the event this information is protected by the Federal Confidentiality of Alcohol and Drug Abuse Patient Records regulations: The Federal rules restrict any use of the information to criminally investigate or prosecute any alcohol or drug abuse patient.[facility] CenterIn the event this information is protected by the Federal Confidentiality of Alcohol and Drug Abuse Patient Records regulations: The Federal rules restrict any use of the information to criminally investigate or prosecute any alcohol or drug abuse patient.[facility] CenterIn the event this information is protected by the Federal Confidentiality of Alcohol and Drug Abuse Patient Records regulations: The Federal rules restrict any use of the information to criminally investigate or prosecute any alcohol or drug abuse patient.[facility] CenterIn the event this information is protected by the Federal Confidentiality of Alcohol and Drug Abuse Patient Records regulations: The Federal rules restrict any use of the information to criminally investigate or prosecute any alcohol or drug abuse patient.[facility] CenterIn the event this information is protected by the Federal Confidentiality of Alcohol and Drug Abuse Patient Records regulations: The Federal rules restrict any use of the information to criminally investigate or prosecute any alcohol or drug abuse patient.[facility] CenterIn the event this information is protected by the Federal Confidentiality of Alcohol and Drug Abuse Patient Records regulations: The Federal rules restrict any use of the information to criminally investigate or prosecute any alcohol or drug abuse patient.[facility] CenterIn the event this information is protected by the Federal Confidentiality of Alcohol and Drug Abuse Patient Records regulations: The Federal rules restrict any use of the information to criminally investigate or prosecute any alcohol or drug abuse patient.[facility] CenterIn the event this information is protected by the Federal Confidentiality of Alcohol and Drug Abuse Patient Records regulations: The Federal rules restrict any use of the information to criminally investigate or prosecute any alcohol or drug abuse patient.[facility] CenterIn the event this information is protected by the Federal Confidentiality of Alcohol and Drug Abuse Patient Records regulations: The Federal rules restrict any use of the information to criminally investigate or prosecute any alcohol or drug abuse patient.[facility] CenterIn the event this information is protected by the Federal Confidentiality of Alcohol and Drug Abuse Patient Records regulations: The Federal rules restrict any use of the information to criminally investigate or prosecute any alcohol or drug abuse patient.[facility] CenterIn the event this information is protected by the Federal Confidentiality of Alcohol and Drug Abuse Patient Records regulations: The Federal rules restrict any use of the information to criminally investigate or prosecute any alcohol or drug abuse patient.[facility] Center[facility] the event this information is protected by the Federal Confidentiality of Alcohol and Drug Abuse Patient Records regulations: The Federal rules restrict any use of the information to criminally investigate or prosecute any alcohol or drug abuse patient.[facility] CenterIn the event this information is protected by the Federal Confidentiality of Alcohol and Drug Abuse Patient Records regulations: The Federal rules restrict any use of the information to criminally investigate or prosecute any alcohol or drug abuse patient.[facility] CenterIn the event this information is protected by the Federal Confidentiality of Alcohol and Drug Abuse Patient Records regulations: The Federal rules restrict any use of the information to criminally investigate or prosecute any alcohol or drug abuse patient.[facility] CenterIn the event this information is protected by the Federal Confidentiality of Alcohol and Drug Abuse Patient Records regulations: The Federal rules restrict any use of the information to criminally investigate or prosecute any alcohol or drug abuse patient.[facility] CenterIn the event this information is protected by the Federal Confidentiality of Alcohol and Drug Abuse Patient Records regulations: The Federal rules restrict any use of the information to criminally investigate or prosecute any alcohol or drug abuse patient.[facility] CenterIn the event this information is protected by the Federal Confidentiality of Alcohol and Drug Abuse Patient Records regulations: The Federal rules restrict any use of the information to criminally investigate or prosecute any alcohol or drug abuse patient.[facility] CenterIn the event this information is protected by the Federal Confidentiality of Alcohol and Drug Abuse Patient Records regulations: The Federal rules restrict any use of the information to criminally investigate or prosecute any alcohol or drug abuse patient.[facility] CenterIn the event this information is protected by the Federal Confidentiality of Alcohol and Drug Abuse Patient Records regulations: The Federal rules restrict any use of the information to criminally investigate or prosecute any alcohol or drug abuse patient.[facility] CenterIn the event this information is protected by the Federal Confidentiality of Alcohol and Drug Abuse Patient Records regulations: The Federal rules restrict any use of the information to criminally investigate or prosecute any alcohol or drug abuse patient.[facility] CenterIn the event this information is protected by the Federal Confidentiality of Alcohol and Drug Abuse Patient Records regulations: The Federal rules restrict any use of the information to criminally investigate or prosecute any alcohol or drug abuse patient.[facility] CenterIn the event this information is protected by the Federal Confidentiality of Alcohol and Drug Abuse Patient Records regulations: The Federal rules restrict any use of the information to criminally investigate or prosecute any alcohol or drug abuse patient.[facility] CenterIn the event this information is protected by the Federal Confidentiality of Alcohol and Drug Abuse Patient Records regulations: The Federal rules restrict any use of the information to criminally investigate or prosecute any alcohol or drug abuse patient.[facility] CenterIn the event this information is protected by the Federal Confidentiality of Alcohol and Drug Abuse Patient Records regulations: The Federal rules restrict any use of the information to criminally investigate or prosecute any alcohol or drug abuse patient.[facility] CenterIn the event this information is protected by the Federal Confidentiality of Alcohol and Drug Abuse Patient Records regulations: The Federal rules restrict any use of the information to criminally investigate or prosecute any alcohol or drug abuse patient.[facility] CenterIn the event this information is protected by the Federal Confidentiality of Alcohol and Drug Abuse Patient Records regulations: The Federal rules restrict any use of the information to criminally investigate or prosecute any alcohol or drug abuse patient.[facility] CenterIn the event this information is protected by the Federal Confidentiality of Alcohol and Drug Abuse Patient Records regulations: The Federal rules restrict any use of the information to criminally investigate or prosecute any alcohol or drug abuse patient.[facility] CenterIn the event this information is protected by the Federal Confidentiality of Alcohol and Drug Abuse Patient Records regulations: The Federal rules restrict any use of the information to criminally investigate or prosecute any alcohol or drug abuse patient.[facility] CenterIn the event this information is protected by the Federal Confidentiality of Alcohol and Drug Abuse Patient Records regulations: The Federal rules restrict any use of the information to criminally investigate or prosecute any alcohol or drug abuse patient.[facility] CenterIn the event this information is protected by the Federal Confidentiality of Alcohol and Drug Abuse Patient Records regulations: The Federal rules restrict any use of the information to criminally investigate or prosecute any alcohol or drug abuse patient.[facility] Reason for Visit (unrecogniz ed section and content) Reason Comments Radiology XR Specialty Diagnoses / Procedures Referred By Contac t Referred To Contact XR IMAGING Diagnoses Chronic left shoulder pain Procedures XR SHOULDER GENERAL 3V OR MORE AP/TRUE AP/OTHER LEFT RADEX SHOULDER COMPLETE MINIMUM 2 VIEWS Hung Jacobsen MD [address] [id number] Xr Imaging [place] [address] Referral ID Status Reason Start Date Expiration Date V isits Requested Visits Authorized [id number] Closed Auto-Generate d Referral 07/02/2024 08/01/2025 1 1 Reason Comments New Patient left upper leg and l ow back pain Reason Onset Date Comments EMG 2022 Specialty Diagnoses / Procedures Referred By Contac t Referred To Contact [facility] Diagnoses S/P lumbar spinal fusion Quadriceps weakness Atrophy of quadriceps femoris muscle Left thigh pain Spinal stenosis of lumbar region, unspecified whether neurogenic claudication present Lumbar radiculopathy, chronic Procedures EMG(NEURO/NI) NERVE CONDUCTION STUDIES 9-[place] [address] [place] [address] [facility] [place] [address] [place] [address] Referral ID Status Reason Start Date Expiration Date V isits Requested Visits Authorized [id number] Closed Auto-Generate d Referral 01/26/2022 01/26/2023 1 1 Reason Comments New Patient Specialty Diagnoses / Procedures Referred By Contac t Referred To Contact Diagnoses S/P lumbar spinal fusion Quadriceps weakness Atrophy of quadriceps femoris muscle Left thigh pain Spinal stenosis of lumbar region, unspecified whether neurogenic claudication present Lumbar radiculopathy, chronic Procedures CONSULT TO SPINE SURGERY OFFICE/OUTPATIENT NEW HIGH MDM 60-[place] [address] [place] [address] Referral ID Status Reason Start Date Expiration Date V isits Requested Visits Authorized [id number] Pending Review 01/26/2022 04/26/2022 1 1 Reason Comments Radiology XR Reason Comments Follow Up Reason Comments Radio Gen RMP Specialty Diagnoses / Procedures Referred By Contac t Referred To Contact XR IMAGING Diagnoses S/P lumbar fusion Procedures XR LUMBAR LIMITED 2V AP/LAT RADEX SPINE LUMBOSACRAL 2/3 VIEWS Graham Mahmood PA-C [address] [place] [id number] Xr Imaging Referral ID Status Reason Start Date Expiration Date V isits Requested Visits Authorized [id number] Closed Auto-Generate d Referral 05/20/2022 06/19/2023 1 1 Reason Comments Future Appointment Reason Comments Follow Up Reason Comments Pain New Reason Comments Schedule Surgery Reason Comments New Reason Comments PT Eval Specialty Diagnoses / Procedures Referred By Contac t Referred To Contact Physical Therapy / PHYSICAL THERAPY Diagnoses R SHOULDER Procedures NEW RS PT Hung Philip, [address] [place] [address] [place] [address] [place] [address] Referral ID Status Reason Start Date Expiration Date V isits Requested Visits Authorized [id number] Authorized 08/14/2022 08/13/2023 99 99 Specialty Diagnoses / Procedures Referred By Contac t Referred To Contact CT IMAGING Diagnoses S/P lumbar spinal fusion Flat back syndrome, postprocedural Procedures CT LUMBAR SPINE WO IVCON CT LUMBAR SPINE W/O CONTRAST MATERIAL Mahesh Small MD [address] [place] [address] [address] [address] Referral ID Status Reason Start Date Expiration Date V isits Requested Visits Authorized [id number] Closed Auto-Generate d Referral 12/13/2022 01/12/2024 1 1 Reason Comments surgery questions Reason Comments Appointment Reason Comments Radio Gen A21 Specialty Diagnoses / Procedures Referred By Contac t Referred To Contact XR IMAGING Diagnoses Pain Procedures XR SHOULDER GENERAL 3V OR MORE AP/TRUE AP/OTHER RIGHT RADEX SHOULDER COMPLETE MINIMUM 2 VIEWS Hung Jacobsen MD [address] [place] [address] [place] [address] Referral ID Status Reason Start Date Expiration Date V isits Requested Visits Authorized [id number] Closed Auto-Generate d Referral 11/14/2023 12/13/2024 1 1 Reason Comments Post Op Reason Comments Established Patient Follow up S/P lumbar fusion Reason Comments Established Patient Follow Up Pain Injections Reason Comments New Pain Reason Comments DM Foot Care Dm Nails Reason Comments Established Patient Follow Up Pain Reason Comments Radio Gen RMP Reason Comments Radiology CT Specialty Diagnoses / Procedures Referred By Contac t Referred To Contact Diagnoses Chronic left shoulder pain Pre-operative clearance Procedures REFER TO [facility] / [facility] - PREOPERATIVE OPTIMIZATION OFFICE/OUTPATIENT NEW HIGH MDM 60 MINUTES Hung Jacobsen MD [address] [place] [address] Referral ID Status Reason Start Date Expiration Date V isits Requested Visits Authorized [id number] Closed PCP Requested Referral 07/02/2024 07/02/2025 1 1 Specialty Diagnoses / Procedures Referred By Contac t Referred To Contact CT IMAGING Diagnoses Chronic left shoulder pain Procedures CT SHOULDER WO IVCON LEFT CT UPPER EXTREMITY W/O CONTRAST MATERIAL Hung Jacobsen MD [address] [id number] Imaging [place] [address] Referral ID Status Reason Start Date Expiration Date V isits Requested Visits Authorized [id number] Closed Auto-Generate d Referral 06/18/2024 07/18/2025 1 1 Reason Onset Date Comments Med Refill 08/05/2024 Reason Comments Post Op Established Patient Reason Comments Radio Gen RMP Radiology Service Pr ogress NotePATIENT NAME: Tyler Baugh PotterMRN: [id number] OF SERVICE: August 08, 2024TIME: 1:01 PMPATIENT IDENTITY VERIFICATION COMPLETED USING TWO (2) IDENTIFIERS: Name and Date of confirmed by patient verbally.FALL SCREENING: Has the patient had 2 falls in the last year or 1 fall with injury or currently using an Ambulatory Assistive Device (Walker, Cane, Wheelchair, Crutches, etc.)? Yes, Patient High Risk for Falls What interventions were put in place Referral ID Status Reason Start Date Expiration Date V isits Requested Visits Authorized [id number] Closed Auto-Generate d Referral 07/02/2024 08/01/2025 1 1 Reason Comments DM Foot Care Dm nail care Reason Comments Follow Up S/P lumbar fusion Reason Comments Post Op Reason Comments Med Refill Reason Onset Date Comments Med Refill 08/08/2023 Reason Onset Date Comments Er Follow-up 12/11/2023 Reason Onset Date Comments Med Refill 12/12/2023 Reason Onset Date Comments Med Refill 12/25/2023 Reason Onset Date Comments Med Refill 01/25/2024 Reason Comments discuss back surgery and medications Reason Onset Date Comments Med Refill 09/22/2023 Reason Comments stomach pain Anxiety Fatigue Reason Onset Date Comments Med Refill 10/23/2023 Reason Comments Dizziness Blurred Vision Patient presents wit h c/o dizziness, blurred vision, and double vision. Patient reports he was fishing with family when he became dizzy and began seeing double. Patient denies any numbness and tingling, difficulty with speaking, or headache. Patient is somewhat of a poor historian. Specialty Diagnoses / Procedures Referred By Bryan t Referred To Contact Diagnoses Dizziness Armando Neville, DO [address] [place] [address] Referral ID Status Reason Start Date Expiration Date Visits Re quested Visits Authorized [id number] 1 1 Reason Onset Date Comments Med Refill 03/26/2024 Reason Onset Date Comments Transition Of Care 03/26/2024 Reason Onset Date Comments Med Refill 11/22/2023 Reason Onset Date Comments Returning Call 03/26/2024 Reason Comments possible throat problem per back surgeon no energy Feels like he's in a daze wants to go back on Celebrex Reason Comments Med Change Request Reason Comments Carotid Artery Disease New patient, 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 Specialty Diagnoses / Procedures Referred By Contjose t Referred To Contact Vascular Surgery Diagnoses Stenosis of right internal carotid artery Lyubov Butt DO [address] [place] [address] Julio Quispe MD [address], [address] [address] Referral ID Status Reason Start Date Expiration Date Visits Requested Visits Authorized [id number] Pending Review Specialty Services Required 04/25/2024 04/25/2025 1 1 Reason Comments Annual Exam [id number] Reason Onset Date Comments Med Refill 06/10/2024 Reason Onset Date Comments Med Refill 06/19/2024 Reason Onset Date Comments Med Refill 06/19/2024 Medication Problem 06/19/2024 Reason Onset Date Comments Med Refill 06/27/2024 Reason Comments here for BP check Patient said he was feeling fatigued and wanted his BP checked Reason Onset Date Comments Med Refill 10/02/2024 Specialty Diagnoses / Procedures Referred By Bryan t Referred To Contact XR IMAGING Diagnoses Aftercare following left shoulder joint replacement surgery Procedures XR SHOULDER GENERAL 3V OR MORE AP/TRUE AP/OTHER LEFT RADEX SHOULDER COMPLETE MINIMUM 2 VIEWS Hung Jacobsen MD [address] [place] [address] Phone: tel: fax: [place] [id number] Referral ID Status Reason Start Date Expiration Date V isits Requested Visits Authorized [id number] Closed Auto-Generate d Referral 09/03/2024 10/03/2025 1 1 Reason Onset Date Comments Med Refill 10/31/2024 Reason Comments Pre-op Exam Dr. Sosa on 11/06/24 Reason Onset Date Comments Med Refill 12/03/2024 Reason Comments Med Refill Reason Comments Follow-up Testing done- denies dizziness at present Reason Onset Date Comments Er Follow-up 12/23/2024 Reason Comments Er Follow-up PMH 12/20/24 Constipat ion Goals (unrecognized section and content) Goals may be documented in a n alternate section Inactive Administered Medications - up to 3 most recent administrations Administered Medications (un recognized section and content) Medication Order MAR Action Action Date Dose Rate Site ROPivacaine (PF) 5 mg/mL (0.5 %) 5 mL injection (NAROPIN) 5 mL, Injection - FOR ORTHO USE ONLY, ONCE, 1 dose, Starting on Mon11/17/23 at 1136, Until Mon11/17/23 at 1136 Given 11/17/2023 11:36 AM EDT 5 mL Shoulder, Right ROPivacaine (PF) 5 mg/mL (0.5 %) 5 mL injection (NAROPIN) 5 mL, Injection - FOR ORTHO USE ONLY, ONCE, 1 dose, Starting on Mon11/17/23 at 1136, Until Mon11/17/23 at 1136 Given 11/17/2023 11:36 AM EDT 5 mL Shoulder, Left triamcinolone acetonide 80 mg injection (KeNALog 40) 80 mg, Injection - FOR ORTHO USE ONLY, ONCE, 1 dose, Starting on Mon11/17/23 at 1136, Until Mon11/17/23 at 1136 Given 11/17/2023 11:36 AM EDT 80 mg Shoulder, Right triamcinolone acetonide 80 mg injection (KeNALog 40) 80 mg, Injection - FOR ORTHO USE ONLY, ONCE, 1 dose, Starting on Mon11/17/23 at 1136, Until Mon11/17/23 at 1136 Given 11/17/2023 11:36 AM EDT 80 mg Shoulder, Left Scheduled Active and Recently Administ ered Medications (unrecognized section and content) Medication Order 03/23/2024 03/24/2024 03/25/2024 aspirin EC tablet 81 mg 81 mg, oral, Daily, First dose on Mon03/24/24 at 1915, Do not crush or chew. 2057 (Given - Provider: Shannon Bob RN) 902 (Given - Provider: Nikki Henriquez RN)2099 (Due - Provider: Shannon Bob RN) cyanocobalamin (VITAMIN B-12) injection 1,000 mcg (COMPLETED) 1,000 mcg, intramuscular, Once, On Mon03/25/24 at 1400, For 1 dose 1451 (Given - Provid er: Nikki Henriquez RN) docusate sodium (COLACE) capsule 100 mg 100 mg, oral, 2 times daily, First dose on Mon03/24/24 at 2100, Look-alike/sound-alike medication - verify indication for use. 2057 (Given - Provider: Shannon Bob RN) 901 (Given - Provider: Nikki Henriquez RN)2099 (Due) DULoxetine (CYMBALTA) DR capsule 30 mg 30 mg, oral, Daily, First dose on 03/24/24 at 1915, Look-alike/sound-alike medication - verify indication for use. Swallow whole-do not crush or chew. Although the real estate inspector does not recommend opening the capsule, the contents of capsule may be sprinkled on applesauce or in apple juice and swallowed (without chewing) immediately; do not sprinkle contents on chocolate pudding. 191 (Not Given - Provider: Shannon Bob RN - Reason: Other - Comment: took this AM) 903 (Given - Provider: Nikki Henriquez RN) heparin (porcine) injection 5,000 Units 5,000 Units, subcutaneous, Every 8 hours scheduled, First dose on Mon03/25/24 at 0600, Notify prescriber if INR greater than 1.9, hemoglobin less than 10 mg/dL, aPTT greater than 40 seconds, and/or platelet count less than 100,000/mm Look-alike/sound-alike medication - verify indication for use. Observe for bleeding. 612 (Given - Provid er: Shannon Bob RN)1449 (Given - Provider: Nikki Henriquez RN)2200 (Due) insulin lispro (HumaLOG) injection 1-5 Units 1-5 Units, subcutaneous, 3 times daily with meals, First dose on Mon03/25/24 at 0800, Daytime hyperglycemia dosing. For blood glucose 151-200 mg/dL, give 1 unit. For blood glucose 201-250 mg/dL, give 2 units. For blood glucose 251-300 mg/dL, give 3 units. For blood glucose 301-350 mg/dL, give 4 units. For blood glucose 351-400 mg/dL, give 5 units. Give even if NPO or meals skipped. Do NOT give more often than every 4 hours when NPO. Notify prescriber if blood glucose greater than 400 mg/dL. Look-alike/sound-alike medication - verify indication for use. Prime with 2 units of insulin prior to administration. Prandial/supplemental Insulin. Pre-filled pens stable 28 days at room temperature. Insulin lispro should be administered within 15 minutes before or immediately after a meal. 0800 (Not Given - Provider: Nikki Henriquez RN - Reason: Order parameters not met - Comment: BG FS [phone] (Not Given - Provider: Nikki Henriquez RN - Reason: Order parameters not met - Comment: FSBG [phone] (Not Given - Provider: Nikki Henriquez RN - Reason: Order parameters not met - Comment: BG 146) lisinopriL (PRINIVIL,ZESTRIL) tablet 20 mg (COMPLETED) 20 mg, oral, Once, On 03/24/24 at 1915, For 1 dose, Look-alike/sound-alike medication - verify indication for use. 2058 (Given - Provider: Shannon Bob RN) oxyCODONE (ROXICODONE) immediate release tablet 5 mg 5 mg, oral, 2 times daily, First dose on Mon03/24/24 at 2100, Look-alike/sound-alike medication - verify indication for use. Immediate release. 2212 (Given - Provider: Shannon Bob RN - Comment: per patient) 09 (Given - Provider: Nikki Henriquez RN)2100 (Due) pantoprazole (PROTONIX) EC tablet 40 mg 40 mg, oral, Daily, First dose on Mon03/25/24 at 0600, Look-alike/sound-alike medication - verify indication for use. If patient is receiving enteral feeding, consider alternative PPI or continue IV pantoprazole until the delayed-release tablet can be taken orally, Indication: NSAID Ulcer Prevention 612 (Given - Provid er: Shannon Bob RN) tamsulosin (FLOMAX) 24 hr capsule 0.4 mg 0.4 mg, oral, Bedtime, First dose on Mon03/24/24 at 2200, Do not crush or chew. 221 (Given - Provider: Shannon Bob RN) 2200 (Due) Continuous Medication Order 03/23/2024 03/24/2024 03/25/2024 sodium chloride 0.9 % infusion (CANCELED) 25 mL/hr, intravenous, Continuous, Starting on Mon03/24/24 at 1420 1423 (New Bag - Provider: Sia Moore RN)1752 (Continue to Inpatient Floor - Provider: Sia Moore RN) 0714 (Stop Bag - Provider: Shannon Bob RN) PRN Medication Order 03/23/2024 03/24/2024 03/25/2024 artificial tear(vguzw-ade-ulj) (TEARS NATURALE FORTE) 0.1-0.3-0.2 % ophthalmic solution 1 drop 1 drop, both eyes, As needed, dry eyes, Starting on Mon03/25/24 at 1257 1448 (Given - Provid er: Nikki Henriquez RN) dextrose (GLUTOSE) 40 % gel 15 g 15 g, oral, As needed, low blood sugar, blood glucose less than 70 mg/dL, Starting on Mon03/24/24 at 1901, If patient conscious and taking PO. If blood glucose is not greater than 70 mg/dL after initial treatment, repeat treatment. dextrose 5 % (D5W) infusion 100 mL/hr, intravenous, Continuous PRN, blood glucose less than 70 mg/dL, Starting on Mon03/24/24 at 1901, Use immediately following dextrose 50% or glucagon treatment for patients who are unconscious or NPO. Contact prescriber for additional orders. If blood glucose is not greater than 70 mg/dL after initial treatment, repeat treatment. dextrose 50 % in water (D50W) 50% solution 25 mL 25 mL, intravenous, As needed, low blood sugar, blood glucose less than 70 mg/dL and unconscious or NPO with IV access, Starting on Mon03/24/24 at 1901, Push over 1-3 minutes STAT. If conscious and not NPO, immediately follow with meal tray or high protein (7 grams) snack if tray not available. If NPO, initiate 5% dextrose in water at 100 mL/hr and contact prescriber for additional orders. If blood glucose is not greater than 70 mg/dL after initial treatment, repeat treatment. VESICANT (RED) Warning: HYPERTONIC solution. glucagon HCL injection 1 mg 1 mg, intramuscular, As needed, low blood sugar, blood glucose less than 70 mg/dL and unconscious or NPO without IV access., Starting on Mon03/24/24 at 1901, If conscious and not NPO, immediately follow with meal tray or high protein (7Grams) snack if tray not available. If NPO, initiate IV 5% Dextrose/Water at 100 mL/hr and contact prescriber for additional orders. If blood glucose is not greater than 70 mg/dL after initial treatment, repeat treatment. iohexoL (OMNIPAQUE) 350 mg iodine/mL injection 100 mL (COMPLETED) 100 mL, intravenous, Once in imaging, contrast, Starting on Mon03/24/24 at 1341, For 1 dose, VESICANT (RED) 1342 (Given - Provider: SANA Winter) perflutren lipid microspheres (DEFINITY) dilution injection 1.43 mg/10 mL 2 mL, intravenous, As needed, contrast, Starting on 03/24/24 at 1901, For 6 hours, Additional Imaging Orders, Dilute 1.3 mL of Definity with 8.7mL of 0.9% NaCl in 10 mL syringe Administer 2 mL perflutren (Definity) contrast if 2 contiguous segments of the LV are not well visualized. May repeat 2 mL dose until LV visualization is accomplished. Procedure total dose not to exceed 10 mL. sodium chloride 0.9 % flush 10 mL (CANCELED) 10 mL, intravenous, As needed, line care, Starting on 03/24/24 at 1341 1342 (Given - Provider: SANA Winter) sodium chloride 0.9 % flush 10 mL 10 mL, intravenous, Once as needed, line care, for use for echo contrast only, Starting on 03/24/24 at 1901, For 6 hours, Additional Imaging Orders sodium chloride 0.9 % flush bag 25 mL, intravenous, at 100 mL/hr, Administer over 15 Minutes, As needed, line care, line care after IVPB administration, Starting on 03/24/24 at 1901 sodium chloride 0.9 % radiology injection (COMPLETED) 80 mL, intravenous, Once in imaging, pre/post contrast, Starting on 03/24/24 at 1341, For 1 dose 1342 (Given - Provider: SANA Winter) FOR RECORDS PERTAINING TO PATIENTS WHO ARE OR HAVE BEEN ENROLLED IN A CHEMICAL DEPENDENCY/SUBSTANCEABUSE PROGRAM, SOME INFORMATION MAY BE OMITTED. This clinical summary was aggregated from multiple sources. Caution should be exercised in using it in the provision of clinical care. This summary normalizes information from multiple sources, and as a consequence, information in this document may materially change the coding, format and clinical context of patient data. In addition, data may be omitted in some cases. CLINICAL DECISIONS SHOULD BE BASED ON THE PRIMARY CLINICAL RECORDS. [employer] provides no warranty or guarantee of the accuracy or completeness of information in this document.
== END 2025-01-01 10:19 | disposition home or self-care (01) ==
LOC: US 10:18
PROVIDERS: PCP Internal Medicine; Visit Provider Urology
DX: N20.0 Calculus of kidney (principal); Q61.02 Congenital multiple renal cysts
CPT/HCPCS: 76775

== ENCOUNTER 2025-05-20 08:39 | Outpatient (OUT) | payer MEDICARE, OTHER, SELFPAY ==
--- NOTE | 2025-05-20 08:52 | US_ITS ---
The [address] [address] Patient Name: ELIESER TORRES MRN: [id number] date: 1945 Sex: M Assigned Patient Location: [place] Current Patient Location: US Accession/Order Number: [id number] Exam Date: 05/20/2025 08:53 Report Date: 05/20/2025 10:24 At the request of: OLU SOSA MD Procedure: US renal BI BILATERAL RENAL AND BLADDER ULTRASOUND CLINICAL HISTORY: Follow-up kidney stones COMPARISON: 01/01/[address] 10/18/2024 Estimation of renal size is approximately 11.4 cm on the right and 11.4 cm on the left. Bilateral echogenic foci with twinkle artifact are identified suggesting stones. The right is associated with a parapelvic cystic structure and measures 11 mm. The stone on the left measures 1 cm. No hydronephrosis is present. Bilateral renal cysts are seen. The largest at the superior pole on the left measures 5.0 x 6.8 x 4.5 cm. There is no perinephric fluid. The urinary bladder is partially distended with a volume of 192 mL. The wall appears borderline thickened. US/US renal BI IMPRESSION: RENAL CYSTS AND NEPHROLITHIASIS. NO OBSTRUCTIVE UROPATHY. Impression dictated by: Rosa Vieira M.D. 05/20/2025 10:24 AM Dictation Location: [place] [address] Electronically authenticated by: [id number] Y Date: 05/20/2025 10:24
--- OUTSIDE RECORDS SUMMARY | 2025-05-20 08:54 | XMS_ITS | CCD ---
Author Organization [facility] [place] CliniSyil Care Team Providers Care Mechanical Tech Name Role Phone EBRAHEIM, VICENTE Admitting Unavailable EBRAHEIM, VICENTE Attending Unavailable SELF, REFERRED Referring Unavailable SELF, REFERRED Primary Care Unavailable [place] Procedure Practitioner Unavailab le EBRAHEIM, VICENTE Surgeon Unavailable OH Procedure Practitioner Unavailab MINOO Reinoso Surgeon Unavailable EBRAHEIM, VICENTE Admitting Unavailable EBRAHEIM, VICENTE Attending Unavailable ARMANDO RICHARDS Referring Unavailable ARMANDO RICHARDS Primary Care Unavailable [place] Procedure Practitioner Unavailab le EBRAHEIM, VICENTE Surgeon Unavailable [place] Procedure Practitioner Unavailab EVA Hammer Surgeon Unavailable EBRAHEIM, VICENTE Admitting Unavailable EBRAHEIM, VICENTE Attending Unavailable ARMANDO RICHARDS Referring Unavailable ARMANDO RICHARDS Primary Care Unavailable [place] Procedure Practitioner Unavailab le EBRAHEIM, VICENTE Surgeon Unavailable [place] Procedure Practitioner Unavailab LAURA Gaspar Surgeon Unavailable EBRAHEIM, VICENTE Admitting Unavailable EBRAHEIM, VICENTE Attending Unavailable ARMANDO RICHARDS Referring Unavailable SUSIE, ARMANDO Primary Care Unavailable [place] Procedure Practitioner Unavailab le EBRAHEIM, VICENTE Surgeon Unavailable [place] Procedure Practitioner Unavailab MOON Post Surgeon Unavailable EBRAHEIM, VICENTE Admitting Unavailable EBRAHEIM, VICENTE Attending Unavailable ARMANDO RICHARDS Referring Unavailable ARMANDO RICHARDS Primary Care Unavailable [place] Procedure Practitioner Unavailab le EBRAHEIM, VICENTE Surgeon Unavailable [place] Procedure Practitioner Unavailab MINOO Reinoso Surgeon Unavailable EBRAHEIM, VICENTE Admitting Unavailable EBRAHEIM, VICENTE Attending Unavailable ARMANDO RICHARDS Referring Unavailable ARMANDO RICHARDS Primary Care Unavailable [place] Procedure Practitioner Unavailab le EBRAHEIM, VICENTE Surgeon Unavailable [place] Procedure Practitioner Unavailab MINOO Reinoso Surgeon Unavailable ARMANDO RICHARDS Primary Care Physician MD Armando Richards Primary Care Provider MD Sharda Brown Attending Provider [phone] MD Sharda Brown Admit Provider DO Cory Reese Other Provider MD Rajiv De La O Admit Provider MD Rajiv De La O Attending Provider [phone] ALIYAH Beauchamp Other Provider Unavailable ALIYAH Borden Other Provider Unavailable ALIYAH Jensen Other Provider Unavailable ALIYAH John Other Provider Unavailable ALIYAH De La Cruz Other Provider Unavailable ALIYAH Busby Other Provider Unavailable ALIYAH Amanda Other Provider Unavailable MD Adrian Lou Other Provider MD Charles Nunez Other Provider MARITZA Paz Other Provider DO Marie Hayes Other Provider MD Geoff Smith Other Provider MD Alejandro Painter Other Provider MD Carmenza Hughes Other Provider MD Rivera Saenz Other Provider Traci ANP- Naomi Other Provider MD Zoe Owen Other Provider MD Chele Napier Other Provider MD Dunia Lux Other Provider MD Davis Haji Other Provider DO Marty Martínez Other Provider MD Eva Mathur Other Provider MD Joesph Cherry Other Provider MD Thuy Youssef Other Provider MD German Steward Other Provider GENOVEVA Mckay-Ekta Preciado Other Provider MD Vinny Turk Other Provider MD Yuniel Anderson Other Provider MD Dillon Patton Other Provider Unavailable MD Seun Rae Other Provider MD Eloisa Boykin Other Provider MD Dillan Chau Other Provider MD Kevin York Other Provider DO Stefania Sarmiento Other Provider Al MD Joana Overton Other Provider DO oJse Mendez Other Provider DO Marco Herrmann Other Provider [phone] MARITZA Trinh Other Provider ALIYAH Jacobson Other Provider Unavailable DO Hawk Mccann Other Provider [phone] Unavailable Primary Care Provider UnavailSharda Mathew Unavailable Valdo Goode Unavailable MD Armando Richards Primary Care Provider MD Sharda Brown Attending Provider Alvaro Scales Unavailable Unavailable Primary Care Provider UnavailTemi Flynn Unavailable MD Armando Richards Primary Care Provider GENOVEVA Dean Attending Provider Asaad, Imad Unavailable Unavailable Primary Care Provider UnavailDR EDELMIRA Gil Consulting Unavailable ABRANE ., OLU Calvo Admitting Unavailable IAN .OLU Attending Unavailable OLU HERRMANN Consulting Unavailable DR ARMANDO RICHARDS Primary Care Unavailable IAN .OLU Admitting Unavailable ABRANE .OLU Attending Unavailable DR GRAHAM WHYTE V Consulting Unavailable OLU HERRMANN Consulting Unavailable DR ARMANDO RICHARDS Primary Care Unavailable DR EDELMIRA ARANGO Consulting Unavailable LUE ., OLU M Admitting Unavailable LUE ., OLU M Attending Unavailable LUE ., OLU M Consulting Unavailable NATTY ALAMO Consulting Unavailable GERIYARELI Consulting Unavailable LUE ., OLU M Attending Unavailable HIESTWILLIE, DR ARMANDO Preciado Primary Care Unavailable LUE ., OLU M Admitting Unavailable ISABELL, DR GRAHAM Kramer Consulting Unavailable LUE ., OLU Calvo Consulting Unavailable GABRIELAESTWILLIE, DR ARMANDO Preciado Primary Care Unavailable LUE ., OLU M Admitting Unavailable LUE ., OLU M Attending Unavailable ISABELL, DR GRAHAM Kramer Consulting Unavailable LUE ., OLU M Consulting Unavailable MD Armando Richards Primary Care Provider MD Cortes Abarca Attending Provider [phone] HUNG HARDY Attending Unavailable MD Armando Richards Primary Care Provider MD oCrtes Abarca Attending Provider Armando Richards Primary Care Provider Armando Richards Primary Care Provider Unavailable Primary Care Provider UnavailArmando López MD Primary Care Provider EDINSON LOWERY Referring Unavailable ARMANDO RICHARDS Primary Care Unavailable JOCELYN HATFIELD Referring Unavailable ARMANDO RICHARDS Primary Care Unavailable JULIO QUISPE Attending Unavailable LYUBOV BUTT Referring Unavailable ARMANDO RICHARDS Primary Care Unavailable Armando Richards MD Primary Care Provider Armando Richards MD Primary Care Provider Olu Sosa MD Attending Provider Lue, Olu M Attending Unavailable Lue, Olu M Admitting Unavailable Lue, Olu M. Admitting Unavailable Lue, Olu M. Attending Unavailable Lue, Olu MDamaso Referring Unavailable Maritza Ridley Attending Unavailable Lue, Olu MDamaso Attending Unavailable Lue, Olu MDamaso Attending Unavailable Lue, Olu MDamaso Referring Unavailable Beatrice Mireles Attending Unavailable Lue, Olu MDamaso Attending Unavailable Armando Richards MD Primary Care Provider HOHUNG [facility] Unavailabl e TJ SMALL Referring Un[facility] Care Unavailabl e HO, HUNG Referring Unavailable HIESTAND, [facility] Care Unavailabl e HO, HUNG Referring [facility] Care Unavailabl e HO, HUNG Referring Unavailable HIESTAND, [facility] Care Unavailabl e HIESTAND, [facility] Care Unavailabl e HO, HUNG Attending Unavailable HO, HUNG Admitting Unavailable EDUARDO KHALIL Consulting [facility] Care Unavailabl e HO, HUNG Attending Unavailable [facility] Care Unavailabl e HO, HUNG Referring Un[facility] Care Unavailabl e HO, HUNG Referring Un[facility] Care Unavailabl e HIESTAND, [facility] Care Unavailabl e HO, HUNG Attending Unavailable HO, HUNG Admitting [facility] Care Unavailabl e HO, HUNG Referring Unavailable HIESTAND, [facility] Care Unavailabl e HO, HUNG Referring [facility] Care Unavailabl e HO, HUNG Attending Unavailable [facility] Care Unavailabl e ERIC KEBEDE Referring Un[facility] Unavailabl e HO, HUNG Referring Un[facility] Care Unavailabl e HO, HUNG Referring [facility] Care Unavailabl e HO, HUNG Referring [facility] Care Unavailabl e Mahesh SMALL Attending Unavailable HIESTAND, [facility] Primary Care Unavailabl e HO, HUNG Attending [facility] Care Unavailabl e Mahesh SMALL Attending Unavailable HIESTAND, [facility] Care Unavailabl e HO, HUNG Referring Unavailable HO, HUNG Attending [facility] Care Unavailabl e HO, HUNG Referring Unavailable HIESTAND, [facility] Care Unavailabl e HO, HUNG Referring [facility] Care Unavailabl e HO, HUNG Referring [facility] Care Unavailabl e HO, HUNG Attending Unavailable HIESTAND, [facility] Care Unavailabl e HO, HUNG Referring Unavailable HIESTAND, [facility] UnavailTAMERA Grissom KAY Attending Unavailable GABRIELAESTAND, ARMANDO Preciado Referring Unavailable HIESTAND, ARMANDO Preciado Primary Care Unavailable HIESTAND, ARMANDO Preciado Attending Unavailable HIESTAND, ARMANDO Preciado Referring Unavailable HIESTAND, ARMANDO Preciado Primary Care Unavailable HIESTAND, ARMANDO Preciado Attending Unavailable HIESTAND, ARMANDO Preciado Referring Unavailable HIESTAND, ARMANDO Preciado Primary Care Unavailable HIESTAND, ARMANDO Preciado Attending Unavailable HIESTAND, ARMANDO Preciado Referring Unavailable HIESTAND, ARMANDO Preciado Primary Care Unavailable HIESTAND, ARMANDO Preciado Attending Unavailable HIESTAND, ARMANDO Preciado Referring Unavailable HIESTAND, ARMANDO Preciado Primary Care Unavailable ADRIANA LOPEZ Attending Unavailable HIESTAND, ARMANDO Preciado Referring Unavailable HIESTAND, ARMANDO Preciado Primary Care Unavailable HIESTAND, ARMANDO Preciado Attending Unavailable HIESTAND, ARMANDO Preciado Referring Unavailable HIESTAND, ARMANDO Preciado Primary Care Unavailable HIESTAND, ARMANDO Preciado Attending Unavailable HIESTAND, ARMANDO Preciado Referring Unavailable HIESTAND, ARMANDO Preciado Primary Care Unavailable HIESTAND, ARMANDO Preciado Primary Care Unavailable VENANCIO NUNEZ Attending Unavailable ARMANDO NEVILLE Admitting Unavailable VENANCIO NUNEZ Attending Unavailable VENANCIO NUNEZ Referring Unavailable HIESTAND, ARMANDO Preciado Primary Care Unavailable VENANCIO NUNEZ Attending Unavailable VENANCIO NUNEZ Referring Unavailable HIESTAND, ARMANDO Preciado Primary Care Unavailable VENANCIO NUNEZ Attending Unavailable VENANCIO NUNEZ Referring Unavailable HIESTAND, ARMANDO Preciado Primary Care Unavailable JULIO QUISPE Attending Unavailable JULIO QUISPE Referring Unavailable HIESTAND, ARMANDO Preciado Primary Care Unavailable HIESTAND, ARMANDO Preciado Primary Care Unavailable HIESTAND, ARMANDO Preciado Attending Unavailable HIESTAND, ARMANDO Preciado Referring Unavailable HIESTAND, ARMANDO Preciado Primary Care Unavailable HIESTAND, ARMANDO Preciado Attending Unavailable HIESTAND, ARMANDO Preciado Referring Unavailable HIESTAND, ARMANDO Preciado Primary Care Unavailable MANAN BAKER Attending Unavailable MANAN BAKER Attending Unavailable MANAN BAKER Attending Unavailable MANAN BAKER Attending Unavailable MANAN BAKER Attending Unavailable MANAN BAKER Attending Unavailable Allergies Allergy Classification Reported Allergen(s) Allergy Type Date of Onset Reaction(s) Facility (20 sources) Simvastatin; Translations: [SIMVASTATIN] Drug Allergy 05-10-2018 Unknown [facility] Medications Current Medications Medication Drug [...] Three times daily as needed for Pain 90 October 18, 2021 1:00am May 04, 2023 [...] Repeat number: 1 take 1 capsule by [facility] in the morning celecoxib (CeleBREX) 200 MG [...] 2021 3:42pm cholecalciferol 0.05 mg oral capsule (10 sources) Vitamin D take 1 capsule by mouth in the morning cholecalciferol (Vitamin D-3) 50 MCG (1999) capsule Take 2,000 Units by mouth in [...] mg/ml ophthalmic solution (1 source) Plasma Volume Charging Manipulator, Non-Standardized Chemical Allergen Start: 024 1 drop, both eyes, As needed, dry eyes, Starting on Mon03/25/24 at 1257 diclofenac sodium 0.01 mg/mg topical gel (14 sources) Nonsteroidal Anti-inflammatory Drug Start: Diclofenac Sodium 1 % 1-2 grams Externally up to four times daily as tolerated for pain relief for 30 days G89.29 Chronic pain Jul, Active docusate sodium 100 mg oral capsule (20 sources) Start: 024 End: take 1 tablet by mouth once daily in the morning for constipation Docusate Sodium 100 mg tab Take 1 tablet by mouth every morning. For constipation prevention. Ensure you take while taking opioid medication. May hold for diarrhea. 30 tablet 07/26/2024 08/25/2024 Active Start: 12-12-2023 End: 12-31-2024 take 1 capsule by mouth in the morning, then take 1 capsule by mouth at bedtime docusate sodium (COLACE) 100 mg capsule Take 1 capsule (100 mg total) by mouth in the morning and 1 capsule (100 mg total) before bedtime. 60 capsule 2 12/12/2023 Active docusate sodium (COLACE ORAL) Take by [...] Repeat number: 1 Start: 10-18-2021 End: 06-10-2024 take 1 capsule by mouth in the morning DULoxetine (CYMBALTA) 30 mg capsule Take 1 capsule (30 mg total) by mouth in the morning. 90 capsule 3 06/10/2024 Active Comment on above: Take 30 mg by mouth. esomeprazole 40 mg delayed release oral capsule (20 sources) Proton Pump Inhibitor Start: 3 End: 5 take 1 capsule by mouth in the morning esomeprazole (NexIUM) [address] capsule Take 40 mg by mouth in the morning and 40 mg before bedtime. 05/04/2023 Active finasteride 5 mg oral tablet (20 sources) 5-alpha Reductase Inhibitor Start: 5 finasteride (PROSCAR) 5 mg tablet Take 1 tablet (5 mg total) by mouth. 10/16/2024 Active fluorouracil 50 mg/ml topical cream (20 sources) Nucleoside Metabolic Inhibitor Start: 5 fluorouraciL [...] 30 day(s) Active take 1 capsule by mo uth every twenty-four hours Gabapentin 300 MG 1 capsule Orally Once a day Active Comment on above: Take 1 capsule by mo uth three times daily. glucagon (rdna) 1 mg [...] bedtime October 18, 2021 1:00am End: 07-22-2024 take 1 capsule by mouth once daily melatonin (CIRCADIN) capsule Take 1 capsule (5 mg total) by mouth nightly. Active Comment on above: Take 5 mg by mouth. meloxicam 15 mg oral tablet (10 sources) Nonsteroidal Anti-inflammatory Drug take 1 tablet by mouth once daily meloxicam (Mobic) 15 MG tablet Take 15 mg by mouth 1 (one) time each day at the same time. Active metFORMIN hydrochloride 500 mg oral tablet (20 sources) Biguanide Start: End: 4 take 1 tablet by mouth at bedtime metFORMIN (GLUCOPHAGE) 500 mg tablet Indications: Type 2 diabetes mellitus without complication, without long-term current use of insulin ([facility]) TAKE 1 TABLET BY MOUTH IN THE MORNING AT AT NOON AND BEFORE BEDTIME 270 tablet 3 06/27/2024 Active Start: 11-03-2021 take 1 tablet by [...] 07, 2022 10:02am take 1 capsule by mo [facility] once daily omeprazole (PriLOSEC) [address] capsule Take 1 capsule by mouth 1 (one) time each day at the same time. Active oxyCODONE hydrochloride 5 mg oral tablet (20 sources) Opioid Agonist Start: 01-09-2023 End: 05-09-2025 take 1 tablet by mouth in the morning oxyCODONE (ROXICODONE) 5 mg immediate release tablet Indications: Lumbar degenerative disc disease Take 1 tablet (5 mg total) by mouth in the morning and 1 tablet (5 mg total) before bedtime. Max Daily Amount: 10 mg. 60 tablet 05/09/2025 Active Start: 11-28-2022 oxyCODONE HCl 5 MG [...] Active Start: 07-13-2022 take 1 tablet by [facility] twice daily as needed oxyCODONE HCl 5 [...] Start: 11-03-2021 take 1 capsule by mo [facility] every four hours oxyCODONE 5 mg Cap 5 mg = 1 cap(s), Oral, q4hr, Refills(s) 0 Start Date: 11/03/21 Status: Ordered Repeat number: 1 Start: 11-01-2021 take 1 tablet by carly th every [...] 2021 9:36am take 1 capsule by mo uth twice daily oxyCODONE ir (OXYIR) 5 mg [...] hour 25 mL/hr, intravenous, Continuous, Starting on 03/24/24 at 1420 Start: 03-24-2024 End: 03-24-2024 80 mL, intravenous, Once in imaging, pre/post contrast, Starting on 03/24/24 at 1341, For 1 dose Start: 03-24-2024 End: 03-24-2024 10 mL, intravenous, As neede d, line care, Starting on 03/24/24 at 1341 tamsulosin hydrochloride 0.4 mg oral capsule (20 sources) alpha-Adrenergic Audrey Start: 12-10-2023 take 1 capsule by mouth once daily at bedtime tamsulosin (FLOMAX) 0.4 mg capsule Indications: Chronic kidney disease (CKD) stage G3a/A1, moderately decreased glomerular filtration rate (GFR) between 45-59 mL/min/1.73 square meter and albuminuria creatinine ratio less than 30 mg/g ([facility]) Take 1 capsule (0.4 mg total) by mouth once daily at bedtime. 30 capsule 12/10/2023 Active Start: 05-25-2023 tamsulosin (Fl omax) 0.4 MG 24 hr capsule 05/25/2023 Active Start: 10-18-2021 End: 05-04-2023 take 2 capsules by mouth once daily at bedtime Tamsulosin 0.4 mg Capsule Discontinued 0.8 MG PO Daily at bedtime 60 October 18, 2021 1:00am May 04, 2023 11:51am Start: 10-18-2021 End: 05-04-2023 take 0.8 mg by mouth once daily at bedtime Tamsulosin Discontinued 0.8 MG PO Daily at bedtime 60 October 18, 2021 1:00am May 04, 2023 11:51am Start: 07-29-2021 End: 10-18-2021 tamsulosin (FLOMAX) 0.4 mg T hu 0.4 mg by mouth. 07/29/2021 Active Comment on above: Take 0.4 mg by mouth . vitamin b12 1 mg oral tablet (20 sources) Vitamin B12 Start: 01-02-2025 take 1 tablet by mouth in the morning cyanocobalamin 1000 MCG tablet Indications: Cerebrovascular accident (CVA), unspecified mechanism ([facility]) Take 1 tablet (1,000 mcg total) by mouth in the morning. 90 tablet 3 01/02/2025 Active Start: 04-25-2024 End: 11-21-2024 take 1 tablet [...] sources) P2Y12 Platelet Inhibitor Start: 03-25-2024 End: 03-21-2025 take 1 tablet by mouth in the [...] 9:36am docusate sodium 50 mg / sennosides, long term 8.6 mg oral tablet (14 sources) Start: [...] dose, VESICANT (RED) L. Gasseri-B. Bifidum-B Longum (MoneyMan) 1.5 billion cell Capsule (7 sources) Start: 09-09-2021 End: 10-18-2021 L. Gasseri-B. Bifidum-B Longum (MoneyMan) 1.5 billion cell Capsule Discontinued 1 CAP PO Daily September 09, 2021 3:31pm October 18, 2021 9:36am Start: 09-09-2021 End: 10-18-2021 L. Gasseri-B. Bifidum-B Long um (MoneyMan) 1.5 billion cell Capsule Discontinued 1 CAP PO Daily September 09, 2021 12:00am October 18, 2021 8:36am Start: 09-09-2021 End: 10-18-2021 L. Gasseri-B. Bifidum-B Long um (MoneyMan) 1.5 billion cell Capsule Discontinued 1 CAP [...] Adhesive Patch,Medicated Discontinued 2 PATCH TOPICAL Daily October 18, 2021 1:00am November 07, 2022 10:02am MULTIVITAMIN ORAL (15 sources) End: 12-04-2024 MULTIVITAMIN ORAL Take by [facility] once daily. 12/04/2024 Discontinued (Discontinued by Patient) [...] as directed Orally Jan, Not-Taking Start: 02-02-2016 [facility] as directed Orally Jan, Active polyethylene glycol 3350 29296 mg powder for oral solution (7 sources) Osmotic Laxative Start: 10-18-2021 End: 11-07-2022 Polyethylene Glycol 3350 (Miralax) 17 gram Powder In Packet Discontinued 17 GM PO Daily 30 October 18, 2021 1:00am November [...] 15 mg Capsule Discontinued 15 MG PO DAILY@1999 as needed for sleep October 18, 2021 [...] sources) Abdominal pain; Translations: [Unspecified abdominal pain] Episodic Acute cerebrovascular disease (20 sources) Cerebral infarction, unspecified; Translations: [Cerebrovascular accident] Onset: 4 07-22-2024 Chronic Administrative/social admission (20 sources) Other reduced mobility; Translations: [Impaired mobility and activities of daily living] 09-21-2021 Episodic Comment on above: Problem List clean-u p per request of Phys. EHR Cmte Anal and rectal conditions (20 sources) Anal and rectal polyp; Translations: [Rectal polyp] Episodic Anxiety disorders (1 source) Anxiety; Translations: [Anxiety disorder, unspecified] 02-21-2024 Chronic Chronic obstructive pulmonary disease and bronchiectasis (20 sources) Chronic obstructive lung disease; Translations: [Chronic obstructive pulmonary disease, unspecified] Onset: 1 Resolved: 3 11-03-2021 Chronic Comment on above: Problem List clean-u p per request of Phys. EHR Cmte Chronic ulcer of skin (10 sources) Ulcer of thigh; Translations: [Pressure ulcer [...] Translations: [Mixed hyperlipidemia] Onset: 1 07-22-2024 Chronic E Codes: Fall (1 source) Fall Onset: 5 Esophageal disorders (20 sources) Gastroesophageal reflux disease; Translations: [Gastro-esophageal reflux disease without esophagitis] Onset: 1 11-03-2021 Chronic Essential hypertension (13 sources) Hypertensive disorder; Translations: [Essential (primary) hypertension] [...] device] Onset: 5 Chronic Heart valve disorders (14 sources) Mitral valve regurgitation; Translations: [Nonrheumatic mitral (valve) insufficiency] Onset: 5 12-04-2024 Chronic Hemorrhoids (20 sources) Hemorrhoids; Translations: [Unspecified hemorrhoids] Episodic Hyperplasia of prostate (20 sources) Benign prostatic hypertrophy with outflow obstruction; Translations: [Benign prostatic hyperplasia with lower urinary tract symptoms] Onset: 2 Chronic Malaise and fatigue (2 sources) Fatigue; Translations: [Other fatigue] 11-27-2023 Episodic Mycoses (8 sources) Pain in toe; Translations: [Tinea unguium] 10-21-2024 Episodic Occlusion or stenosis of precerebral arteries [...] per request of Phys. 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, postprocedural] Onset: 5 Chronic Other aftercare (5 sources) Patient encounter status; Translations: [Aftercare following joint replacement surgery] 08-08-2024 Chronic Other aftercare (2 sources) Aftercare following joint replacement surgery; Translations: [Aftercare following bilateral shoulder joint replacement surgery] Onset: 5 Chronic Other and ill-defined cerebrovascular disease (1 source) Other cerebrovascular vasospasm and vasoconstriction; Translations: [Other cerebrovascular vasospasm and vasoconstriction] Onset: 4 Chronic Other and ill-defined cerebrovascular disease (2 sources) Cerebrovascular disease; Translations: [Other cerebrovascular vasospasm and vasoconstriction] 03-27-2024 Chronic Other connective tissue disease (5 sources) History of reverse prosthetic total arthroplasty of right shoulder; Translations: [Presence of right artificial shoulder joint] Onset: 5 12-16-2024 Chronic Other connective tissue disease (1 source) Presence of right artificial shoulder joint; Translations: [Aftercare following bilateral shoulder joint replacement surgery] Onset: 5 Chronic Other connective tissue disease (2 sources) Presence of left artificial shoulder joint; Translations: [Aftercare following bilateral shoulder joint replacement surgery] Onset: 5 Chronic Other connective tissue disease (4 sources) [...] Translations: [Unspecified hydronephrosis] Onset: 3 Episodic Other diseases of veins and lymphatics (2 sources) Vascular insufficiency; Translations: [Venous insufficiency (chronic) (peripheral)] 03-05-2025 Episodic Other gastrointestinal disorders (20 sources) Swollen abdomen; Translations: [Abdominal distension (gaseous)] Episodic Other gastrointestinal disorders (1 source) Drug-induced constipation; Translations: [Drug induced constipation] 12-24-2024 Episodic Other gastrointestinal disorders (2 sources) Drug induced constipation; Translations: [Drug induced constipation] Onset: 5 Episodic Other gastrointestinal disorders (1 source) Constipation Onset: 5 Episodic Other injuries and conditions due to [...] abnormalities of gait and mobility] Episodic Other non-traumatic joint disorders (1 source) [...] [Pain in left shoulder] 06-18-2024 Episodic Other non-traumatic joint disorders (3 sources) Pain in right knee; Translations: [Other acute pain] Onset: 5 03-10-2025 Episodic Other non-traumatic joint disorders (2 sources) Pain in left knee; Translations: [Pain in left knee] Onset: 5 Episodic Other nutritional; endocrine; and metabolic disorders [...] pain of right upper limb 10-15-2024 Unclassified (5 sources) Patient encounter status 10-15-2024 Unclassified (1 source) Er Follow-up Onset: 5 Unclassified (1 source) Pre-op Exam Onset: 5 Unclassified (1 source) Other intervertebral disc degeneration, lumbar region without mention of lumbar back pain or lower extremity pain; Translations: [Other intervertebral disc degeneration, lumbar region without mention of lumbar back pain or lower extremity pain] Onset: 4 Unclassified (1 source) Annual Exam Onset: 4 Unclassified (1 source) Blurred Vision Onset: 4 Past or Other Problems Problem [...] Onset: 03-24-2024 03-24-2024 Episodic Gastritis and duodenitis (10 sources) Gastritis; Translations: [Gastritis, unspecified, without bleeding] Onset: 01-04-2023 01-04-2023 Episodic Genitourinary symptoms and ill-defined conditions (4 sources) Retention of urine; Translations: [Other retention of urine] Onset: 11-03-2021 Episodic Mood disorders (20 sources) Mood disorders Onset: 04-25-2024 Resolved: 05-29-2024 05-29-2024 Other acquired deformities (10 sources) Lumbar spondylolisthesis; Translations: [Spondylolisthesis, lumbar region] Onset: 01-04-2023 01-04-2023 Episodic Other aftercare (1 source) 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) use of oral hypoglycemic drugs; Translations: [QUALITY SYSTEMS SPECIALIST USE ORAL HYPOGLYCEMIC DX] Onset: 05-25-2022 Episodic Other aftercare (1 source) Other alf (current) drug therapy; Translations: [OTH HALF-WAY CURRENT DRUG THERAPY] Onset: 05-25-2022 Episodic Other [...] Onset: 01-04-2023 01-04-2023 Episodic Other gastrointestinal disorders (18 sources) Dysphagia; Translations: [Dysphagia, unspecified] Onset: 01-04-2023 01-04-2023 Episodic Other nervous system disorders (2 sources) Other acute postprocedural pain; Translations: [Post-op pain] Onset: 07-25-2024 Episodic Other non-traumatic joint disorders (1 source) Pain in unspecified joint Onset: 04-11-2022 Resolved: 04-11-2022 Episodic Other non-traumatic joint disorders (5 sources) Pain in right shoulder; Translations: [Chronic right shoulder pain] Onset: 03-08-2023 Episodic Other non-traumatic joint disorders (1 source) Pain in left shoulder; Translations: [Chronic left shoulder pain] Onset: 07-25-2024 Episodic Screening and history of mental health [...] Test Name Value Interpretation Reference Range Facility XR KNEE LT 3 VWSon 5 XR KNEE LT 3 VWS XR KNEE LT 3 VWS History: Fall, knee pain Exam: Left knee 3 views Comparison: None Findings: No acute fracture or dislocation. No osseous destruction. Moderate to advanced tricompartmental osteoarthritis most significant in the medial compartment. Small joint effusion. Impression: Osteoarthritis. Small joint effusion. Finalized by Edelmira Sow MD on 03/11/2025 6:58 AM Normal [facility] XR KNEE RT 3 VWSon 5 XR KNEE RT 3 VWS XR KNEE RT 3 VWS History: Fall, knee pain Exam: Right knee 3 views Comparison: None Findings: No fracture or dislocation. No osseous destruction. Moderate to advanced tricompartmental osteoarthritis most significant in the medial compartment. Small joint effusion. Impression: Osteoarthritis. Small joint effusion. Finalized by Edelmira Sow MD on 03/11/2025 7:00 AM Normal [facility] CNOVon 01-28-2025 CNOV Office Visit (ERICA ) ----- TYLER TORRES ([id number]) 1945 M Date Time Provider Department 01/28/25 10:45 AM HUNG JACOBSEN During your visit today, we recorded the following information about you: Hung Jacobsen MD 01/28/2025 1:29 PM Signed SHOULDER/ELBOW ESTABLISHED VISIT PCP: Armando Richards MD, MD Date of Surgery: 12/16/24 Surgery: Right Reverse TSA Follow-up time: 6 weeks Date of Surgery: 07/25/24 Surgery: Left Reverse Shoulder Replacement Follow-up time: 6 months SUBJECTIVE HISTORY OF PRESENT ILLNESS: Tyler Torres is a 79-year-old male presenting for follow-up. R shoulder doing well no pain. Compliant with sling wear and activities. Tyler reports worsening back and leg pain with activity, which he notes has been gradually increasing since his back surgery in September of last year. Has not FU with Dr. Small since Sep 2024 He also reports intermittent right knee pain, which he describes as variable in intensity. He is hesitant to pursue any surgical intervention for his knee at this time. ACTIVE PROBLEM LIST Chronic Right Shoulder Pain Type 2 Diabetes Mellitus Without Complication, Without Long-Term Current Use of Insulin (Ltac, Located Within [facility]) Former Smoker Chronic Obstructive Pulmonary Disease (Ltac, Located Within 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) Mixed Hyperlipidemia Obstructive Sleep Apnea Syndrome Peripheral Venous Insufficiency Cva (Cerebral Vascular Accident) (Ltac, Located Within [facility]) Carotid Stenosis Mitral Valve Insufficiency Aortic Valve Sclerosis S/P Reverse Total Shoulder Arthroplasty, Right Benign Prostatic Hyperplasia With Weak Urinary Stream Primary Hypertension ALLERGIES Allergen Reactions Simvastatin Unknown MEDICATIONS: aspirin, enteric coated (ECOTRIN LOW STRENGTH) 81 mg EC tablet Take 1 tablet by mouth two times a day for 14 days. (Patient taking differently: Take 81 mg by mouth two times a day. Taking once a day) acetaminophen (TYLENOL EXTRA STRENGTH) 500 mg tablet Take 2 tablets by mouth every 6 hours as needed for pain. finasteride (PROSCAR) 5 mg tablet Take 5 [...] visibile head, eyes, ear, neck, throat deformities - Musculoskeletal: - Right Shoulder: - ROM: Active abduction to 85 degrees, passive abduction to 100 degrees, external rotation to 20 degrees. - Strength: 4+/5. - Left Shoulder: 140/40/L4 - ROM: Able to reach behind back to posterior buttock. Axillary, Long Thoracic, CN XI, Median, Ulnar, Radial, musculocutaneous nerves intact to motor and sensation. Fingers warm and well perfused, BCR< 2sec. Radial Pulse 2+ RADIOGRAPHIC RESULTS: Imaging was personally reviewed by myself today R shoulder xr show Reverse in good position. GT avulsion stable ASSESSMENT PLAN DIAGNOSIS: (Z47.1, Z96.611, Z96.612) Aftercare following bilateral shoulder joint replacement surgery (primary encounter diagnosis) 1. Aftercare following bilateral shoulder joint replacement surgery (Z47.1) Post-operative recovery progressing well. Right shoulder active ROM to 85 degrees, passive ROM to 100 degrees, external rotation to 20 degrees, and strength 4+ out of 5. Left shoulder exhibits good ROM and function. - Provided stretches for the right shoulder. - Initiate resistance band exercises in 2-3 weeks with 5-10 lbs resistance. - Discontinue sling use completely by the beginning of March. - Follow-up appointment scheduled for July to assess bilateral shoulder function. New Xr. All questions were answered for patient today, they should not hesitate to call the office with any issues. Medical Decision Making: Medical Decision Making Level: 1 - N/A MD Augie Olivas Jason, MD 01/28/2025 11:37 AM Signed Can get rid of Sling completely beginning of March. Allergies As of Date: 01/28/2025 Noted Allergy Reaction SIMVASTATIN 05/10/2018 16 - Unknown Date Reviewed: 01/28/ (more content not included)... Normal [facility] XR SHLDR >/=3V AP/BLANCHE AP/OTH R RTon 01-28-2025 XR SHLDR >/=3V AP/BLANCHE AP/OTHR RT * * *Final Report* * * DATE OF EXAM: Jan 28 2025 10:17AM AFR 5253 - XR SHLDR >/=3V AP/BLANCHE AP/OTHR RT / PROCEDURE REASON: multiple diagnoses * * * * Physician Interpretation * * * * EXAMINATION: XR SHLDR >/=3V AP/BLANCHE AP/OTHR RT CLINICAL HISTORY: Pain. Chronic right shoulder pain Technique: XR SHLDR >/=3V AP/BLANCHE AP/OTHR RT Comparison: 12/30/2024 RESULT: Reverse RIGHT shoulder arthroplasty. No signs of hardware loosening or failure. Unchanged calcification adjacent to the humeral component. Mild acromioclavicular joint space narrowing with osteophytes. Visualized RIGHT lung is clear. IMPRESSION: Reverse RIGHT shoulder arthroplasty without hardware complication. Cardiology Consultant: WERO Transcribe Date/Time: Jan 29 2025 4:44P Dictated by : BEBA ABRAHAM DO This examination was interpreted and the report reviewed and electronically signed by: BEBA ABRAHAM DO on Jan 29 2025 4:45PM EST [id number] Normal [facility] CNNURSEon 12-30-2024 CNNURSE Nurse Visit (ORTHLD) ----- TYLER TORRES ([id number]) 1945 M Date Time Provider Department 12/30/24 10:00 AM BOAZ WHITE During your visit today, we recorded the following information about you: Boaz White, ALIYAH 12/30/2024 10:29 AM Signed ORTH CARE COORDINATION POST OPERATIVE NURSE VISIT Patient has been identified by name and date of : Yes, Patient is accompanied by: family Surgery: Right reverse Total Shoulder Arthroplasty 37223, biceps tenodesis Date of Surgery: 12/16/2024 Activity? [...] needed. Call if any redness, swelling, drainage. [phone] Ok to shower in 1-2 days but [...] or doing exercises Referring Provider: HUNG JACOBSEN [[id number]] Allergies As of Date: 12/30/2024 Noted Allergy Reaction SIMVASTATIN 05/10/2018 16 - Unknown Date Reviewed: 12/30/2024 Reviewed by: Boaz White, RN - Fully Assessed Reason for Visit: Post [...] needed. Call if any redness, swelling, drainage. [phone] Ok to shower in 1-2 days but no submerging in pool, hot tub, etc - pat incision dry after - do no (more content not included)... Normal [facility] XR SHLDR >/=3V AP/BLANCHE AP/OTH R RTon 12-30-2024 XR SHLDR >/=3V AP/BLANCHE AP/OTHR RT * * *Final Report* * * DATE OF EXAM: Dec 30 2024 10:00AM LFX 5253 - XR SHLDR >/=3V AP/BLANCHE AP/OTHR RT / PROCEDURE REASON: multiple diagnoses * * * * Physician Interpretation * * * * EXAMINATION / TECHNIQUE: XR SHLDR >/=3V AP/BLANCHE AP/OTHR RT HISTORY: right shoulder 2 week post op follow up exam Chronic right shoulder pain Chronic right shoulder pain COMPARISON: 12/16/2024. FINDINGS: Postoperative soft tissue gas has resolved. Arthroplasty hardware is unchanged. No new acute bony abnormality is identified. IMPRESSION: Reverse shoulder arthroplasty without complication. Cardiology Consultant: WERO Transcribe Date/Time: Jan 01 2025 7:44P Dictated by : ALCIDES CAMPOS MD This examination was interpreted and the report reviewed and electronically signed by: ALCIDES CAMPOS MD on Jan 01 2025 7:44PM EST [id number] Normal [facility] Basic metabolic 2000 panelon 12-17-2024 Anion gap [Moles/Vol] 10 mmol/L Normal 8-15 [facility] Comment on above: Order Comment: Speci men Type: BLOOD SPECIMEN Ordering Facility: [facility] Address: [address] [place] [address] Performed By: #### 2 4321-2 #### [facility] CLIA [id number] [facility] [place] [address] [place] Calcium [Mass/Vol] 9.2 mg/dL Normal 8.5-10.2 [facility] Comment on above: Order Comment: Speci men Type: BLOOD SPECIMEN Ordering Facility: [facility] Address: [address] [place] [address] Performed By: #### 2 4321-2 #### [facility] CLIA [id number] [address] [place], [place] [address] [place] Chloride [Moles/Vol] 104 mmol/L Normal 98-107 [facility] Comment on above: Order Comment: Speci men Type: BLOOD SPECIMEN Ordering Facility: [facility] Address: [address] [place] [address] Performed By: #### 2 4321-2 #### [facility] CLIA [id number] [address] [place], [place] [address] [place] CO2 [Moles/Vol] 22 mmol/L Normal 22-30 [facility] Comment on above: Order Comment: Speci men Type: BLOOD SPECIMEN Ordering Facility: [facility] Address: [address] [place] [address] Performed By: #### 2 4321-2 #### [facility] CLIA [id number] [address] [place], [place] [address] [place] Creatinine [Mass/Vol] 0.94 mg/dL Normal 0.73-1.22 [facility] Comment on above: Order Comment: Speci men Type: BLOOD SPECIMEN Ordering Facility: [facility] Address: [address] [place] [address] Performed By: #### 2 4321-2 #### [facility] CLIA [id number] [address] [place], [place] [address] [place] Creatinine and Glomerular filtration rate.predicted panel (S/P/Bld) 82 mL/min/1.73m??? Normal >=60 [facility] Comment on above: Order Comment: Speci men Type: BLOOD SPECIMEN Ordering Facility: [facility] Address: [address] [place] [address] Result Comment: Thuy mated Glomerular Filtration Rate [...] GFR. Performed By: #### 2 4321-2 #### [facility] CLIA [id number] [address] [place] [address] [place] Glucose [Mass/Vol] 114 mg/dL High 74-99 [facility] Comment on above: Order Comment: Chris barajas Type: BLOOD SPECIMEN Ordering Facility: [facility] Address: [address] [place] [address] Result Comment: The [place] Diabetes Association (ADA) provides guidance for cutoff [...] Standards of Medical Care in Diabetes 2016, Canadian Diabetes Association. Diabetes Care. 2016.39(Suppl 1). Performed By: #### 2 4321-2 #### [facility] CLIA [id number] [address] [place], [place] [address] [place] Potassium [Moles/Vol] 4.1 mmol/L Normal 3.7-5.1 [facility] Comment on above: Order Comment: Chris barajas Type: BLOOD SPECIMEN Ordering Facility: [facility] Address: [address] [place] [address] Performed By: #### 2 4321-2 #### [facility] CLIA [id number] [address] [place], [place] [address] [place] Sodium [Moles/Vol] 136 mmol/L Normal 136-144 [facility] Comment on above: Order Comment: Chris barajas Type: BLOOD SPECIMEN Ordering Facility: [facility] Address: [address] [place] [address] Performed By: #### 2 4321-2 #### [facility] CLIA [id number] [address] [place], [place] [address] [place] Urea nitrogen [Mass/Vol] 13 mg/dL Normal 9-24 [facility] Comment on above: Order Comment: Speci men Type: BLOOD SPECIMEN Ordering Facility: [facility] Address: [address] [place] [address] Performed By: #### 2 4321-2 #### [facility] CLIA [id number] [address] [place], [place] [address] [facility] CNDSon 12-17-2024 CNDS HNO ID: [id number] Author: MARK ARREAGA PA-C Service: Orthopaedic Surgery Author Type: Physician Storage Architect Type: Discharge Summary Filed: 12/17/2024 11:55 Note [...] Cva (Cerebral Vascular Accident) (Hcc) Carotid Stenosis Mitral Valve Insufficiency Aortic Valve [...] The patient was electively admitted to the [facility]. Surgery was scheduled and on [...] Department Center 12/30/2024 10:00 AM Boaz White, ALIYAH [facility] 12/30/2024 10:00 AM XR [facility] 01/28/2025 10:15 AM [facility] RE[facility] RGORAV Rej 01/28/2025 10:45 AM Hung [...] Take 1 table (more content not included)... [facility] CONSULT PROGon 12-17-2024 CONSULT PROG HNO ID: [id number] Author: EDUARDO KHALIL MD Service: General Internal [...] Oral 75 17 94 % -- -- 12/17/24424 -- -- -- 71 -- 94 % -- -- 12/17/24422 119/57 37.1 ?C (98.8 ?F) Oral -- 18 -- -- -- 12/16/242318 -- -- -- -- -- 94 % -- -- 12/16/242317 103/57 37.6 ?C (99.7 ?F) Oral 89 [...] Peripheral Venous Insufficiency Cva (Cerebral Vascular Accident) (Ltac, Located Within [facility]) Carotid Stenosis Mitral Valve Insufficiency Aortic Valve [...] complication, without long-term current use of insulin ([facility]) (POA: Yes) Assessment AND Plan: He will [...] meaning may be extrapolated by contextual derivation [facility] THERAPY NTon 12-17-2024 THERAPY NT HNO ID: [id number] Author: FORTINO STEWARD, SPECIAL EDUCATION ITINERANT TEACHER Service: Respiratory Therapy Author Type: Registered Resp [...] Education Topic COPD Education SIGNATURE: Fortino Steward RRT PATIENT NAME: Tyler Torres DATE: December 17, 2024 TIME: 12:01 PM PAGER/CONTACT #: [facility] THERAPY NT HNO ID: [id number] Author: ANDRA MOYER, PT, DPT Service: Physical Therapy Author Type: Physical Therapist Type: Therapy (PT/OT/Speech/Resp) Filed: 12/17/2024 10:32 Note Text: Physical Therapy Evaluation Summary SERVICE DATE: 12/17/2024 SERVICE TIME: 1002 to 1018 ROOM: [place] [address] PT 6 Clicks Score: 23 Total Joint [...] Walker- Wheeled, Grab Bars- Shower, Shower Chair, Drop Hammer Operator Helper, Sock Aid, Long Handled Shoe Horn PRIOR [...] for Next Visit: Gait Training SIGNATURE: Andra Moyer PT, DPT PATIENT NAME: Tyler Torres DATE: December 17, 2024 TIME: 10:30 AM [facility] THERAPY NT HNO ID: [id number] Author: ADELAIDE ROBISON OT/L Service: Occupational Therapy Author Type: Occupational Therapist Type: Therapy (PT/OT/Speech/Resp) Filed: 12/17/2024 10:14 Note Text: Occupational Therapy Evaluation Summary SERVICE DATE: 12/17/2024 SERVICE TIME: 924 to 951 ROOM: [id number] OT 6 Clicks Score: 17 Total Joint [...] Walker- Wheeled, Grab Bars- Shower, Shower Chair, Drop Hammer Operator Helper, Sock Aid, Long Handled Shoe Horn PRIOR FUNCTIONAL LEVEL Within Functional Limits Independent with ADLs and mobility without AD SUBJECTIVE Patient agreeable to OT THERAPY DIAGNOSIS Decreased activities of daily living (ADL), Reduced mobility-other TREATMENT INTERVENTIONS Evaluation, Self Prison Management (22498) Timed Code Treatment (minutes): 12 Skilled Treatment [...] DATE: December 17, 2024 TIME: 10:13 AM [facility] HEALTHon 12-16-2024 ALLIED HEALTH HNO ID: [id number] Author: JOYCE ESCUDERO RT(R) Service: Radiology Author [...] PATIENT PRESENTS WITH AN IMPLANTABLE OR ATTACHED GEOPHYSICIST: No RADIOLOGY DEPARTMENT: General X-ray: Exam(s) Completed: Upper Extremity X-Ray(s): Shoulder, AP / TRUE AP right PERIPHERAL IV DATA: Not applicable SIGNED BY: RT Marlow Cela(R) December 16, 2024 2:34 PM [facility] ANES POSTPROC EVALon 025 ANES POSTPROC EVAL HNO ID: [id number] Author: DINAH GILL MD Service: Anesthesiology Author Type: Anesthesiologist Type: Anesthesia Postprocedure Evaluation Filed: 12/16/2024 14:57 Note Text: POST ANESTHESIA EVALUATION NOTE : 1945 Procedure Summary Date: 12/16/24 Room / Location: OR / OR Anesthesia Start: 925 Anesthesia Stop: [...] December 16, 2024 TIME: 2:57 PM CSN: [id number] [facility] ANES PRE-OPon 12-16-2024 ANES PRE-OP HNO ID: [id number] Author: DINAH GILL MD Service: Anesthesiology Author Type: Anesthesiologist Type: Anesthesia Preprocedure Evaluation Filed: 12/16/2024 07:32 Note Text: ANESTHESIOLOGY DAY OF SURGERY NOTE : 1945 Procedure Information Date/Time: 12/16/24814 Procedure: ARTHROPLASTY REPLACE JOINT TOTAL SHOULDER (Right: Shoulder) Location: [place] [address] / OR Surgeons: Hung Jacobsen MD Estimated [...] and consent discussed: yes. Patient / Responsible Alliance Party agrees to proceed: yes Patient / [...] 1,000 mg 100 mL 1,000 mg INTRAVENOUS Levers Lace Machine Operator to OR Outpatient Medications as of 12/16/2024 [...] December 16, 2024 TIME: 7:29 AM CSN: [id number] [facility] BRIEF OP NOTon 12-16-2024 BRIEF OP NOT HNO ID: [id number] Author: CYRUS COBIAN DO Service: Orthopaedic Surgery Author Type: Resident Type: Brief Op Note Filed: 12/16/2024 13:05 Note Text: ORTHOPAEDIC SURGERY BRIEF OPERATIVE NOTE LOG ID: [id number] Surgery/Procedure Date: 12/16/2024 Incision/Procedure Start Time: 10:31 AM Incision Close/Procedure End Time: 12:56 PM Surgeon(s)/Proceduralist( s) and Storage Architect(s): Surgeons and Role: * Hung Jacobsen MD [...] DATE: 12/16/2024 TIME: 1:03 PM PAGER/CONTACT #: [phone] [facility] CONSULTon 12-16-2024 CONSULT HNO ID: [id number] Author: EDUARDO KHALIL MD Service: General Internal [...] 115 18 9 (more content not included)... [facility] HISTORY PHYSICALon HISTORY PHYSICAL HNO ID: [id number] Author: CYRUS COBIAN DO Service: Orthopaedic Surgery [...] in the Electronic Medical Record. Juan R Cobian DO Resident Physician Department of Orthopedic Surgery 12/16/2024 7:10 AM [facility] NURSING PROGon 12-16-2024 NURSING PROG HNO ID: [id number] Author: BELA GUILLAUME RN Service: Nursing Author Type: Registered Nurse Type: Nursing Progress Note Filed: 12/16/2024 15:30 Note Text: Transfer Note: PATIENT NAME: Tyler Torres Patient Location: [address]/[place] [address] Room: [place] [address] Patient transferred into room/unit [facility] in stable condition. Actions taken: No futher actions taken at this time. Will continue to monitor and check with patient. [facility] OPERATIVE NOon 12-16-2024 OPERATIVE NO HNO ID: [id number] Author: HUNG JACOBSEN MD Service: Orthopaedic Surgery Author Type: Physician Type: Operative Report Filed: 12/16/2024 14:43 Note Text: OPERATIVE/PROCEDURE REPORT LOG ID: [id number] SURGERY/PROCEDURE DATE: 12/16/2024 INCISION/PROCEDURE START TIME: 10:31 AM INCISION CLOSE/PROCEDURE END TIME: 12:56 PM SURGEON(S)/PROCEDURALIST( S) AND EXTRUSION PRESS OPERATOR(S): Surgeons and Role: * Hung Jacobsen MD - Primary Customs Port Director * Cyrus Cobian DO - Resident - Assisting Second Storage Architect: Mark Arreaga PA-C SURGERY/PROCEDURE(S): Right reverse Total Shoulder Arthroplasty 81523, biceps tenodesis 42131 This case is a 22 modifier due [...] failed nonoperative treatment including modification of activities, jnof-kag-[id number] medication and injections. Due to failure of [...] dislocated, greater tuberosity footprint, bare spot and new [place] capsular joint line were identified after removing [...] of the gleno (more content not included)... [facility] Pathology biopsy report Nicanor (Tiss)on 12-16-2024 AP DISCLAIMER [facility] Comment on above: Order Comment: Speci men Type: TISSUE SPECIMEN Ordering Facility: [facility] Address: [address], [place] [address] Result Comment: Mingo Matute Test (LDT) Disclaimer: Performance characteristics of immunohistochemical, immunofluorescent, and chromogenic in-situ hybridization tests have been determined by the performing laboratory within [facility]'s Tj Ocasio Pathology and Laboratory Medicine Department ([facility], [facility], [facility], [facility], [facility], [facility], or [facility]) in a manner consistent with CLIA [...] appropriately. Performed By: #### 6 6121-5 #### [facility] CLIA [id number] [facility] [place] [address] [facility] CLIA [id number] [address] [address] [facility] CASE REPORT [facility] Comment on above: Order Comment: Speci men Type: TISSUE SPECIMEN Ordering Facility: [facility] Address: [address] [place] [address] Result Comment: Surg [facility] Pathology Report Case: [id number] Authorizing Provider: Hung Jacobsen MD Collected: 12/16/2024 12:26 PM Ordering Location: [facility] Received: 12/17/2024 07:49 AM Operating Room Pathologist: Armando Herzog MD Specimen: Humerus, Head, Right Performed By: #### 6 6121-5 #### [facility] CLIA [id number] [place] [address]. [place] [address] [facility] CLIA [id number] [address] [place], [place] [address] [facility] CLINICAL HISTORY Normal [facility] Comment on above: Order Comment: Speci men Type: TISSUE SPECIMEN Ordering Facility: [facility] Address: [address] [place] [address] Result Comment: Pre- op diagnosis: Chronic right shoulder pain [M25.511, G89.29] Performed By: #### 6 6121-5 #### [facility] CLIA [id number] [address] [place] [address] [facility] CLIA [id number] [address] FINAL DIAGNOSIS [facility] Comment on above: Order Comment: Speci men Type: TISSUE SPECIMEN Ordering Facility: [facility] Address: [address] [place] [address] Result Comment: A. R ight humeral head, arthroplasty: - Degenerative joint disease. 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 at 0925 EDT Performed By: #### 6 6121-5 #### [facility] CLIA [id number] [address] [facility] [place] [address] [facility] CLIA [id number] [address] [place] [address] FINAL PERFORMING LAB [facility] Comment on above: Order Comment: Speci men Type: TISSUE SPECIMEN Ordering Facility: [facility] Address: [address] [place] [address] Result Comment: Diag nostic interpretation performed at: [facility], [address] [facility] [address] CLIA# [id number] Analyst: Lalo Degroot MD Performed By: #### 6 6121-5 #### [facility] CLIA [id number] [place] [address]. [place] [address] [facility] CLIA [id number] [address] [place] [address] GROSS DESCRIPTION [facility] Comment on above: Order Comment: Speci men Type: TISSUE SPECIMEN Ordering Facility: [facility] Address: [address] [place] [address] Result Comment: A. H umerus, Head, Right In formalin labeled humerus, head, right is a 5.5 x 4.4 x 1.2 cm irregularly-shaped humeral head. The articular surface is extensively roughened and granular with areas of eburnation. Sectioning reveals firm, trabecular bone. Additionally within container is a 5.5 x 3.1 x 0.9 cm sommers-schneider, irregularly-shaped fragment of membranous tissue consistent with joint capsule. Assessment Technician sections are submitted as follows: A1: Soft tissue A2: Humeral head, following decalcification in formic acid. HAYDEE 12/17/24 1:23 PM Gross examination performed at [facility], [address] [place] [address] Performed By: #### 6 6121-5 #### [facility] CLIA [id number] [address] [facility] [place], [place] [address] [place] [address] LAB CLIA [id number] [address] [place] [address] XR SHOULDER SPECIFY 1V RTon 12-16-2024 [...] at the central upper glenohumeral joint space Cardiology Consultant: PSCB Transcribe Date/Time: Dec 16 2024 2:57P Dictated by : KIRAN SANTILLAN MD This examination was interpreted and the report reviewed and electronically signed by: KIRAN SANTILLAN MD on Dec 16 2024 3:05PM EST [id number] [facility] CBC W Auto Differential pane l (Bld)on 12-04-2024 Basophils (Bld) [#/Vol] 0.05 10*3/uL Normal <0.11 [facility] Comment on above: Order Comment: Speci men Type: BLOOD SPECIMEN Ordering Facility: [facility] Address: [address] [place] [address] Performed By: #### 5 7021-8 #### [facility] IA [id number] [address] [place] [address] [place] Basophils/100 WBC (Bld) 0.7 % Normal [facility] Comment on above: Order Comment: Speci men Type: BLOOD SPECIMEN Ordering Facility: [facility] Address: [address] [place] [address] Performed By: #### 5 7021-8 #### [facility] IA [id number] [address] [place] [address] [place] Differential cell count method Nom (Bld) Auto Normal [facility] Comment on above: Order Comment: Speci men Type: BLOOD SPECIMEN Ordering Facility: [facility] Address: [address] [place] [address] Performed By: #### 5 7021-8 #### [facility] IA [id number] [address] [place] [address] [place] Eosinophils (Bld) [#/Vol] 0.28 10*3/uL Normal <0.46 [facility] Comment on above: Order Comment: Speci men Type: BLOOD SPECIMEN Ordering Facility: [facility] Address: [address] [place] [address] Performed By: #### 5 7021-8 #### [facility] IA [id number] [address] [place] [id number] [place] Eosinophils/100 WBC (Bld) 4.1 % Normal [facility] Comment on above: Order Comment: Speci men Type: BLOOD SPECIMEN Ordering Facility: [facility] Address: [address] [place] [address] Performed By: #### 5 7021-8 #### [facility] IA [id number] [address] [place] [address] [place] Erythrocyte distribution width (RBC) [Ratio] 15.1 % High 11.5-15.0 [facility] Comment on above: Order Comment: Speci men Type: BLOOD SPECIMEN Ordering Facility: [facility] Address: [address] [place] [address] Performed By: #### 5 7021-8 #### [facility] IA [id number] [address] [place] [address] [place] Hematocrit (Bld) [Volume fraction] 38.5 % Low 39.0-51.0 [facility] Comment on above: Order Comment: Speci men Type: BLOOD SPECIMEN Ordering Facility: [facility] Address: [address] [place] [address] Performed By: #### 5 7021-8 #### [facility] IA [id number] [address] [place] [address] [place] Hemoglobin (Bld) [Mass/Vol] 12.0 g/dL Low 13.0-17.0 [facility] Comment on above: Order Comment: Speci men Type: BLOOD SPECIMEN Ordering Facility: [facility] Address: [address] [place] [address] Performed By: #### 5 7021-8 #### [facility] IA [id number] [address] [place] [address] [place] Immature granulocytes (Bld) [#/Vol] 10*3/uL Normal <0.10 [facility] Comment on above: Order Comment: Speci men Type: BLOOD SPECIMEN Ordering Facility: [facility] Address: [address] [place] [address] Performed By: #### 5 7021-8 #### [facility] IA [id number] [address] [place] [address] [place] Immature granulocytes/100 WBC (Bld) 0.1 % Normal [facility] Comment on above: Order Comment: Speci men Type: BLOOD SPECIMEN Ordering Facility: [facility] Address: [address] [place] [address] Performed By: #### 5 7021-8 #### [facility] CLIA [id number] [address] [place] [address] [place] Lymphocytes (Bld) [#/Vol] 2.19 10*3/uL Normal 1.00-4.00 [facility] Comment on above: Order Comment: Speci men Type: BLOOD SPECIMEN Ordering Facility: [facility] Address: [address] [place] [address] Performed By: #### 5 7021-8 #### [facility] CLIA [id number] [address] [place] Lymphocytes/100 WBC (Bld) 32.4 % Normal [facility] Comment on above: Order Comment: Speci men Type: BLOOD SPECIMEN Ordering Facility: [facility] Address: [address] [place] [address] Performed By: #### 5 7021-8 #### [facility] IA [id number] [place] MCH (RBC) [Entitic mass] 27.7 pg Normal 26.0-34.0 [facility] Comment on above: Order Comment: Speci men Type: BLOOD SPECIMEN Ordering Facility: [facility] Address: [address] [place] [address] Performed By: #### 5 7021-8 #### [facility] CLIA [id number] [address] [place] MCHC (RBC) [Mass/Vol] 31.2 g/dL Normal 30.5-36.0 [facility] Comment on above: Order Comment: Speci men Type: BLOOD SPECIMEN Ordering Facility: [facility] Address: [address] [place] [address] Performed By: #### 5 7021-8 #### [facility] CLIA [id number] [address] [place] MCV (RBC) [Entitic vol] 88.9 fL Normal 80.0-100.0 [facility] Comment on above: Order Comment: Speci men Type: BLOOD SPECIMEN Ordering Facility: [facility] Address: [address] [place] [address] Performed By: #### 5 7021-8 #### [facility] CLIA [id number] [address] [facility] [place] [address] [place] Monocytes (Bld) [#/Vol] 0.77 10*3/uL Normal <0.87 [facility] Comment on above: Order Comment: Speci men Type: BLOOD SPECIMEN Ordering Facility: [facility] Address: [address] [place] [address] Performed By: #### 5 7021-8 #### [facility] CLIA [id number] [address] [place] [address] [place] Monocytes/100 WBC (Bld) 11.4 % Normal [facility] Comment on above: Order Comment: Speci men Type: BLOOD SPECIMEN Ordering Facility: [facility] Address: [address] [place] [address] Performed By: #### 5 7021-8 #### [facility] IA [id number] [address] [place] [address] [place] Neutrophils (Bld) [#/Vol] 3.46 10*3/uL Normal 1.45-7.50 [facility] Comment on above: Order Comment: Speci men Type: BLOOD SPECIMEN Ordering Facility: [facility] Address: [address] [place] [address] Performed By: #### 5 7021-8 #### [facility] IA [id number] [address] [place] [address] [place] Neutrophils/100 WBC (Bld) 51.3 % Normal [facility] Comment on above: Order Comment: Speci men Type: BLOOD SPECIMEN Ordering Facility: [facility] Address: [address] [place] [address] Performed By: #### 5 7021-8 #### [facility] CLIA [id number] [address] [place] [address] [place] Nucleated RBC (Bld) [#/Vol] 10*3/uL Normal <0.01 [facility] Comment on above: Order Comment: Speci men Type: BLOOD SPECIMEN Ordering Facility: [facility] Address: [address] [place] [address] Performed By: #### 5 7021-8 #### [facility] IA [id number] [address] [place] [address] [place] Nucleated RBC/100 WBC (Bld) [Ratio] 0.0 /100 WBC Normal [facility] Comment on above: Order Comment: Speci men Type: BLOOD SPECIMEN Ordering Facility: [facility] Address: [address] [place] [address] Performed By: #### 5 7021-8 #### [facility] IA [id number] [address] [place] [address] [place] Platelet mean volume (Bld) [Entitic vol] 9.7 fL Normal 9.0-12.7 [facility] Comment on above: Order Comment: Speci men Type: BLOOD SPECIMEN Ordering Facility: [facility] Address: [address] [place] [address] Performed By: #### 5 7021-8 #### [facility] IA [id number] [address] [place] [address] [place] Platelets (Bld) [#/Vol] 214 10*3/uL Normal 150-400 [facility] Comment on above: Order Comment: Speci men Type: BLOOD SPECIMEN Ordering Facility: [facility] Address: [address] [place] [address] Performed By: #### 5 7021-8 #### [facility] IA [id number] [address] [place] [address] [place] RBC (Bld) [#/Vol] 4.33 10*6/uL Normal 4.20-6.00 [facility] Comment on above: Order Comment: Speci men Type: BLOOD SPECIMEN Ordering Facility: [facility] Address: [address] [place] [address] Performed By: #### 5 7021-8 #### [facility] IA [id number] [address] [place] [address] [place] WBC (Bld) [#/Vol] 6.76 10*3/uL Normal 3.70-11.00 [facility] Comment on above: Order Comment: Speci men Type: BLOOD SPECIMEN Ordering Facility: [facility] Address: [address], [place] [address] Performed By: #### 5 7021-8 #### [facility] CLIA [id number] [address] [facility] 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 No significant additional findings. Congressional Representative (topogram) images: No significant findings. IMPRESSION: CT [...] obtained in 12 months --END OF FINDING-- Cardiology Consultant: WERO Transcribe Date/Time: Dec 04 2024 7:15P Dictated by : SHARDA FOSTER MD This examination was interpreted and the report reviewed and electronically signed by: SHARDA FOSTER MD on Dec 04 2024 7:21PM EST [id number] ACTIONABLE Invalid Interpretation Code [facility] metabolic 2000 panelon 12-04-2024 Albumin [Mass/Vol] 4.0 g/dL Normal 3.9-4.9 [facility] Comment on above: Order Comment: Chris barajas Type: BLOOD SPECIMENOrdering Facility: [facility] Address: [address] [place] [address] Performed By: #### 2 4323-8 ####[facility]ORYCLIA [id number] [place] [address] [place] [facility] ALP [Catalytic activity/Vol] 59 U/L Normal 38-113 [facility] Comment on above: Order Comment: Chris barajas Type: BLOOD SPECIMENOrdering Facility: [facility] Address: [address] [place] [address] Performed By: #### 2 4323-8 ####[facility]ORYCLIA [id number] [place] [address] [place] ALT [Catalytic activity/Vol] 13 U/L Normal 10-54 [facility] Comment on above: Order Comment: Chris barajas Type: BLOOD SPECIMENOrdering Facility: [facility] Address: [address] [place] [address] Performed By: #### 2 4323-8 ####[facility]ORYCLIA [id number] [place] [address] [place] Anion gap [Moles/Vol] 10 mmol/L Normal 8-15 [facility] Comment on above: Order Comment: Speci men Type: BLOOD SPECIMENOrdering Facility: [facility] Address: [address] [place] [address] Performed By: #### 2 4323-8 ####[facility]ORYCLIA [id number] [place] [address] [place] AST [Catalytic activity/Vol] 15 U/L Normal 14-40 [facility] Comment on above: Order Comment: Speci men Type: BLOOD SPECIMENOrdering Facility: [facility] Address: [address] [place] [address] Performed By: #### 2 4323-8 ####[facility] [id number] [place] [address] [place] Bilirubin [Mass/Vol] 0.3 mg/dL Normal 0.2-1.3 [facility] Comment on above: Order Comment: Speci men Type: BLOOD SPECIMENOrdering Facility: [facility] Address: [address] [place] [address] Performed By: #### 2 4323-8 ####[facility]ORY[facility] [id number] [place] [address] [place] Calcium [Mass/Vol] 10.4 mg/dL High 8.5-10.2 [facility] Comment on above: Order Comment: Speci men Type: BLOOD SPECIMENOrdering Facility: [facility] Address: [address] [place] [address] Performed By: #### 2 4323-8 ####[facility]ATORYCLIA [id number] [place] [address] [place] Chloride [Moles/Vol] 107 mmol/L Normal 98-107 [facility] Comment on above: Order Comment: Speci men Type: BLOOD SPECIMENOrdering Facility: [facility] Address: [address] [place] [address] Performed By: #### 2 4323-8 ####[facility]ORYCLIA [id number] [place] [address] [place] CO2 [Moles/Vol] 25 mmol/L Normal 22-30 [facility] Comment on above: Order Comment: Speci men Type: BLOOD SPECIMENOrdering Facility: [facility] Address: [address] [place] [address] Performed By: #### 2 4323-8 ####[facility]ATORYCLIA [id number] [place] [address] [place] Creatinine [Mass/Vol] 0.89 mg/dL Normal 0.73-1.22 [facility] Comment on above: Order Comment: Speci men Type: BLOOD SPECIMENOrdering Facility: [facility] Address: [address] [place] [address] Performed By: #### 2 4323-8 ####[facility]ORATORYCLIA [id number] [facility], [place] [address] [place] [address] STATES [place] [facility] Creatinine and Glomerular filtration rate.predicted panel (S/P/Bld) 87 mL/min/1.73m??? Normal >=60 [facility] Comment on above: Order Comment: Speci men Type: BLOOD SPECIMENOrdering Facility: [facility] Address: [address] [place] [address] Result Comment: Thuy mated Glomerular Filtration Rate [...] actual GFR. Performed By: #### 2 4323-8 ####[facility]ATORYCLIA [id number] [place] [address] [place] Glucose [Mass/Vol] 93 mg/dL Normal 74-99 [facility] Comment on above: Order Comment: Speci men Type: BLOOD SPECIMENOrdering Facility: [facility] Address: [address] [place] [address] Result Comment: The Canadian Diabetes Association (ADA) provides guidance for cutoff [...] Standards of Medical Care in Diabetes 2016, Canadian Diabetes Association. Diabetes Care. 2016.39(Suppl 1). Performed By: #### 2 4323-8 ####[facility] [id number] [place] [address] [place] Potassium [Moles/Vol] 4.6 mmol/L Normal 3.7-5.1 [facility] Comment on above: Order Comment: Speci men Type: BLOOD SPECIMENOrdering Facility: [facility] Address: [address] [place] [address] Performed By: #### 2 4323-8 ####[facility] [id number] [place] [address] [place] Protein [Mass/Vol] 6.5 g/dL Normal 6.3-8.0 [facility] Comment on above: Order Comment: Speci men Type: BLOOD SPECIMENOrdering Facility: [facility] Address: [address] [place] [address] Performed By: #### 2 4323-8 ####[facility] [id number] [place] [address] [place] Sodium [Moles/Vol] 142 mmol/L Normal 136-144 [facility] Comment on above: Order Comment: Speci men Type: BLOOD SPECIMENOrdering Facility: [facility] Address: [address] [place] [address] Performed By: #### 2 4323-8 ####[facility] LABORATORYIA [id number] [place] [address] [place] Urea nitrogen [Mass/Vol] 16 mg/dL Normal 9-24 [facility] Comment on above: Order Comment: Speci men Type: BLOOD SPECIMENOrdering Facility: [facility] Address: [address] [place] [address] Performed By: #### 2 4323-8 ####[facility] LABORATORYCLIA [id number] [facility] [place] [address] [place] HISTORY PHYSICALon HISTORY PHYSICAL HNO ID: [id number] Author: ALINE JONES PA-C Service: ? Author Type: Physician Storage Architect Type: H&P Filed: 12/06/2024 08:07 Note Text: [...] Chronic obstructive pulmonary disease, unspecified COPD type ([facility]) Does not use inhalers. Denies recent exacerbations [...] complication, without long-term current use of insulin ([facility]) Does not consistently take fasting AM blood [...] dental ob (more content not included)... Normal [facility] HbA1c (Bld)on 12-04-2024 Average glucose Estimated from glycated hemoglobin (Bld) [Mass/Vol] 126 mg/dL [facility] Comment on above: eAG: (Estimated aver age glucose) is a calculated value from HgbA1c and is contracts representative of the average blood glucose level in the last 2-3 month period. HbA1c (Bld) [Mass fraction] 6 % High 4.3 - 5.6 % [facility] Comment on above: [place] Diabetes As sociation guidelines indicate that patients with HgbA1c in the range 5.7-6.4% are at increased risk for development of diabetes, and intervention by lifestyle modification may be beneficial. HgbA1c greater or equal to 6.5% is considered diagnostic of diabetes. Interpretation and review of laboratory results Abnormal [facility] Average glucose Estimated from glycated hemoglobin (Bld) [Mass/Vol] 126 mg/dL Normal [facility] Comment on above: Order Comment: Speci men Type: BLOOD SPECIMEN Ordering Facility: [facility] Address: [address] [place] [address] Result Comment: eAG: (Estimated average glucose) is a calculated value from HgbA1c and is contracts representative of the average blood glucose level in the last 2-3 month period. Performed By: #### 5 5454-3 #### [facility] CLIA [id number] [address] [place] [address] [place] HbA1c (Bld) [Mass fraction] 6.0 % High 4.3-5.6 [facility] Comment on above: Order Comment: Speci men Type: BLOOD SPECIMEN Ordering Facility: [facility] Address: [address] [place] [address] Result Comment: Amer [place] Diabetes Association guidelines indicate that patients with HgbA1c in the range 5.7-6.4% are at increased risk for development of diabetes, and intervention by lifestyle modification may be beneficial. HgbA1c greater or equal to 6.5% is considered diagnostic of diabetes. Performed By: #### 5 5454-3 #### [facility] CLIA [id number] [address] [place], [place] [address] [place] TYPE AND SCREEN,30 DAYon ABO A Normal [facility] Comment on above: Order Comment: Chris barajas Type: BLOOD SPECIMEN Ordering Facility: [facility] Address: [address] [place] [address] Performed By: #### T SCR30 #### [facility] [place] [id number] [place] [address] [place] Rh Nom (Bld) Positive Normal [facility] Comment on above: Order Comment: Chris barajas Type: BLOOD SPECIMEN Ordering Facility: [facility] Address: [address] [place] [address] Performed By: #### T SCR30 #### [facility] CLIA [id number] [place] [address] [place] XR CHEST 2V [...] Marked degenerative changes in the right shoulder. Cardiology Consultant: PSCB Transcribe Date/Time: Dec 05 2024 1:03P Dictated by : KELTON VERAS MD This examination was interpreted and the report reviewed and electronically signed by: KELTON VERAS MD on Dec 05 2024 1:05PM EST [id number] Normal [facility] Inpatient Patient Summaryon 11-18-2024 Inpatient Patient Summary Inpatient Patient Summary [place] [id number] Clinical Summary Person Information Name: TYLER TORRES Age: 79 Years : 1945 Sex: Male PCP: ARMANDO RICHARDS MD Marital Status: Race: White Ethnicity: Non- or Language: Mosotho Visit Id: Visit Reason: RIGHT KIDNEY STONE Speciality: Acuity: Enc Type: Outpatient Med Service: Surgery Arrival: 11/18/2024 10:45:56 Discharge: Dispo Type: Address: [address] [place] [address] [phone] Provider Notes: Diagnosis: Encounter for removal of [...] Follow up: With: Address: When: Olu Sosa [address] [place] [address] [phone] Business (1) Comments: Obtain renal US in 6 weeks, call for results. Office to schedule routine follow up in 6 months with renal US Patient Education Information: EU - Cystoscopy with Stent Removal Discharge Instructions (CUSTOM) Saud [facility] Main OR Intraoperative Recor don 11-18-2024 Main OR Intraoperative Record Main OR Intraoperative Record IntraOp Document Type FTURO Summary Primary Physician: Olu Sosa MD Finalized Date/Time: 11/18/24 11:59:38 Pt. Name: TYLER TORRES/Sex: 1945 Male Med Rec #: [id number] Physician: Olu Sosa MD Financial #: [id number] Pt. Type: O Room/Bed: / Admit/Disch: 11/18/24 10:45:56 - Institution: Case Times FTURO Entry 1 Patient Times In Room 11/18/24 11:54:00 Out Room 11/18/24 11:59:00 Procedure Times Start 11/18/24 11:56:00 Stop 11/18/24 11:57:00 Anesthesia Times Last Modified By: Carmen Love RN 11/18/24 11:59:34 Case Attendance FTURO Entry 1 Entry 2 Entry 3 Case Attendee Ian METZ, Olu Love RN, Anastacia Arvizu A Role Performed Surgeon - Primary Fine Hairer - Primary Scrub - Primary Time In 11/18/24 11:54:00 11/18/24 11:54:00 11/18/24 11:54:00 Time Out 11/18/24 11:59:00 11/18/24 11:59:00 11/18/24 11:59:00 Procedure CYSTOSCOPY LOCAL WITH CYSTOSCOPY LOCAL WITH CYSTOSCOPY LOCAL WITH STENT REMOVAL(Right) STENT REMOVAL(Right) STENT REMOVAL(Right) Comments Last Modified By: Carmen Love RN, RN, Leann E Ott RN, Leann E 11/18/24 11:59:35 11/18/24 11:59:35 11/18/24 11:59:35 Surgical [...] Position Verified Availability Equipment, Medication Time Out Olu Sosa MD, Ott Verified (If Participants Carmen LY Dellinger, Applicable) Anastacia A Time Out Complete 11/18/24 11:55:00 Allergies Reviewed? Yes Allergies Reviewed Self/Patient With Body Position Supine Prep Area PENIS, SCROTUM Prep Agents Hibiclens, Sterile Water Skin. Condition Intact, [place], Warm, & Dry Additional None Specimens Collected [...] By: Carmen Love RN 11/18/24 11:59 Normal [facility] Main OR Preoperative Recordo n 11-18-2024 Main OR Preoperative Record Main OR Preoperative Record Holding Area Document Type FTURO Summary Primary Physician: Olu Sosa MD Finalized Date/Time: 11/18/24 11:25:42 Pt. Name: TYLER TORRES/Sex: 1945 Male Med Rec #: [id number] Physician: Olu Sosa MD Financial #: [id number] Pt. Type: O Room/Bed: / Admit/Disch: 11/18/24 [...] Signed By: Linda Monroy 11/18/24 11:25 Normal [facility] Operative Reporton Operative Report Operative Report Patient: TYLER TORRES Age: 79 years Sex: Male : 1945 Associated Diagnoses: None Author: Olu Sosa MD Procedure Operative Information Details: Date/ Time: 11/18/2024 12:01:00. Pre-Op Dx: Encounter for removal of ureteral stent ([id number] Z46.6, Discharge, Medical). Post-Op Dx: Same. Anesthesia [...] renal US for routine monitoring . Normal [facility] Comment on above: Result Comment: Elec tronically Signed By: Olu Sosa MD\.br\Date and Time Signed: 11/18/24 12:03 EDT Outpatient Surgery Discharge Instructionon 11-18-2024 Outpatient Surgery Discharge Instruction Outpatient Surgery Discharge Instruction [address] [address] Patient Discharge Instructions PERSON INFORMATION [...] Follow up: With: Address: When: Olu Sosa [address] [place] [address] [phone] Business (1) Comments: Obtain renal US in [...] you have a fever over 100 degrees. IBRIAN LEE, have received the attached patient education [...] to serve you. Thank you for choosing [facility] Normal [facility] Reminderson 11-18-2024 Reminders Reminders From: Calista Jain To: EU - Recalls Lue; Sent: 11/18/2024 13:21:56 EDT Show up: 04/21/2025 13:21:00 EDT Subject: 6 Month ESTELLE @ TB Due Date/Time: 05/21/2025 13:21:00 EDT Reminder/Recall Per KML, patient to have ESTELLE done prior to 6 month f/u appointment on 05/21/25. Patient prefers [facility]. Imaging will need to be ordered and faxed to [facility], also please remind the patient to obtain the imaging prior to the f/u appointment. Normal [facility] Urine Cultureon 10-29-2024 Bacteria identified Cx Nom (U) No Growth 2 Days PERFORMED BY: [place] [address] [facility] M.D. Normal The Replaced By [facility] Comment on above: Performed By: #### C UU #### [address] Ambulatory Visit Summaryon 0 10-16-2024 Ambulatory Visit Summary Ambulatory Visit Summary TYLER TORRES :1945 Visit Date:10/16/2024 Ambulatory Visit Instructions Your Diagnosis Ureteral stone Kidney stone BPH with obstruction/lower urinary tract symptoms Tests Performed CT Abdomen/Pelvis w/o Contrast -- Results Pending -- Please visit your patient portal for your results or contact your primary care physician. Your Care Team Attending Physician - Ian METZ, Olu Calvo. Primary Care Physician - ARMANDO RICHARDS MD [...] Schedule the Following Appointments Follow Up with Ian METZ, MILTON Watts, URO When: Where: Medications What How Much When Why Instructions New finasteride (finasteride 5 mg Tab) 1 Tablets By Mouth Every day BPH with obstruction/lower urinary tract symptoms Refills: 11 Pickup at [facility]/pharmacy #[id number] Unchanged tamsulosin (tamsulosin 0.4 mg Cap) 1 [...] physician if questions or concerns Pharmacy Information [facility]/pharmacy #[id number]: [address], [place] [phone] Allergies No Known Allergies Problems Ongoing - [...] Pain (more content not included)... Normal [facility] Urology Office/Clinic Noteon 10-16-2024 Urology Office/Clinic Note [...] taking this ESTELLE & KUB 09/05/24 @ [facility] History of Present Illness Tests reviewed: [...] General anesthesia. -CT AP wo contrast at [facility]. Call with results -If Right ureteral stone [...] placed and (more content not included)... Normal [facility] Comment on above: Result Comment: Elec tronically Signed By: Olu Sosa MD\.br\Date and Time Signed: 10/16/24 12:25 EST\.br\Electronically Co-Signed By: Deb Brunson\.br\Date and Time Co-Signed: 10/16/24 12:07 EST CNOVon 10-15-2024 CNOV Office Visit (ORAVON ) ----- TYLER TORRES ([id number]) 1945 M Date Time Provider Department 10/15/24 [...] (Hcc) Former Smoker Chronic Obstructive Pulmonary Disease (Ltac, Located Within 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) Mixed Hyperlipidemia Obstructive Sleep Apnea Syndrome Peripheral Venous Insufficiency Cva (Cerebral Vascular Accident) (Ltac, Located Within [facility]) Carotid Stenosis ALLERGIES Allergen Reactions Simvastatin Unknown [...] related complications, post-op medical complications such as IA/pneumonia/etc, and were also discussed, and patient advised [...] Glenohumeral arthrit (more content not included)... Normal [facility] XR SHLDR >/=3V AP/BLANCHE AP/OTH R LTon 10-15-2024 XR SHLDR >/=3V AP/BLANCHE AP/OTHR LT * [...] dislocation. No malalignment. IMPRESSION: Arthroplasty without complication Cardiology Consultant: PSCB Transcribe Date/Time: Oct 15 2024 11:36P Dictated by : RIANNA BAUM MD This examination was interpreted and the report reviewed and electronically signed by: RIANNA BAUM MD on Oct 15 2024 11:37PM EST [id number] Normal [facility] XR Shoulder - left 3 Viewson 10-15-2024 IMPRESSION: Arthroplasty without complication Cardiology Consultant: PSCB Transcribe Date/Time: Oct 15 2024 11:36P [...] dislocation. No malalignment. DIVISION OF RADIOLOGY Provider, [facility] - 10/15/2024 * * *Final Report* [...] No malalignment. IMPRESSION IMPRESSION: Arthroplasty without complication Cardiology Consultant: PSCJo Ann Transcribe Date/Time: Oct 15 2024 11:36P Dictated by : RIANNA BAUM MD This examination was interpreted and the report reviewed and electronically signed by: RIANNA BAUM MD on Oct 15 2024 11:37PM EST [facility] Radiology Study observation (narrative) [facility] XR Shoulder - left 3 ViewsOr dered By: Ccf Provider on 10-15-2024 [facility] CNOVon 09-03-2024 CNOV Office Visit (ORAVON ) ----- TYLER TORRES ([id number]) 1945 M Date Time Provider Department 09/03/24 [...] Peripheral Venous Insufficiency Cva (Cerebral Vascular Accident) (Ltac, Located Within [facility]) Carotid Stenosis ALLERGIES Allergen Reactions Simvastatin Unknown [...] use a stick. Referring Provider: HUNG JACOBSEN [[id number]] Allergies As of Date: 09/03/2024 Noted Allergy Reaction SIMVASTATIN 05/10/2018 16 - Unknown Date Reviewed: 09/03/2024 Reviewed by: Elvira Valencia RN - Fully Assessed Reason for Visit: Post Op [174] Primary Visit Diagnosis:Aftercare following left shoulder joint replacement surgery [Z47.1, Z96.612] Order(s):XR SHOULDER GENERAL 3V OR MORE AP/TRUE AP/OTHER LEFT [2006248] Order #: [id number] FUTURE Prescriptions as of 09/03/2024 - acetaminophen [...] DULoxetine (CYMBAL (more content not included)... 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 Cardiology Consultant: PSCCloudwords Transcribe Date/Time: Sep 03 2024 8:07P Dictated [...] the acromioclavicular joint. 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 Cardiology Consultant: WERO Transcribe Date/Time: Sep 03 2024 8:07P Dictated by : JUDE OLIVEROS MD This examination was interpreted and the report reviewed and electronically signed by: JUDE OLIVEROS MD on Sep 03 2024 8:07PM EST [facility] Radiology Study observation (narrative) [facility] XR Shoulder - left 3 ViewsOr dered By: Ccf Provider on 09-03-2024 [facility] CNOVon 08-27-2024 CNOV Office Visit (SPSNAV ) ----- TYLER TORRES ([id number]) 1945 M Date Time Provider Department 08/27/24 [...] SCOLIOSIS PA (more content not included)... Normal [facility] XR SCOLIOSIS 2V PA STAND/LAT on 08-27-2024 [...] intact hardware T12 through the iliac bones. Cardiology Consultant: PSCB Transcribe Date/Time: Aug 28 2024 9:15A Dictated by : ADRIANA PÉREZ MD This examination was interpreted and the report reviewed and electronically signed by: ADRIANA PÉREZ MD on Aug 28 2024 9:17AM EST [id number] [facility] CNOVon 08-08-2024 OV Office Visit (OTMBHT ) ----- TYLER TORRES ([id number]) 1945 M Date Time Provider Department 08/08/24 1:20 PM [facility] During your visit today, we recorded the following information about you: Tamera Pineda APRN.GAS BURNER OPERATOR 08/08/2024 4:22 PM Signed SHOULDER/ELBOW ESTABLISHED VISIT SERVICE DATE: 08/08/2024 PCP: Armando Richards MD, MD Date of Surgery: 07/25/24 Surgery: Left reverse Total Shoulder Arthroplasty 06031, biceps tenodesis 47410 Follow-up time: 2 weeks SUBJECTIVE HISTORY OF [...] which included preparing to see the patient, [id number] patient care, completing clinical documentation, obtaining and/or reviewing separately obtained history, performing a medically appropriate examination, counseling and educating the patient/family/caregiver, ordering medications, tests, or procedures, and communicating with other HCPs (not separately reported). Tamera Pineda APRN, Tamera Anguiano APRN.MIRYAM 08/08/2024 1:29 PM Signed Restart celebrex tomorrow when you drop down to your regular dose of baby (more content not included)... 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 Cardiology Consultant: [facility] Transcribe Date/Time: Aug 08 2024 1:24P Dictated [...] other significant change. 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 Cardiology Consultant: PSCB Transcribe Date/Time: Aug 08 2024 1:24P Dictated by : ALCIDES BARKSDALE MD This examination was interpreted and the report reviewed and electronically signed by: ALCIDES BARKSDALE MD on Aug 08 2024 1:25PM EST [facility] Radiology Study observation (narrative) [facility] XR Shoulder - left 3 ViewsOr dered By: Ccf Provider on 08-08-2024 [facility] CASE MGT INIT NATACHAon 2023 CASE MGT INIT [facility] HNO ID: [id number] Author: ALIS CARDENAS RN Service: ? Author [...] SIGNATURE: Alis Cardenas RN PATIENT NAME: Tyler Torres DATE: July 26, 2024 TIME: 2:48 PM Normal [facility] CBC panel Auto (Bld)on 07-26 Erythrocyte distribution width (RBC) [Ratio] 13.8 % Normal 11.5-15.0 [facility] Comment on above: Order Comment: Speci men Type: BLOOD SPECIMENOrdering Facility: [facility] Address: [address] [place] [address] Performed By: #### 5 8410-2 ####[facility] LABCLIA [id number] [place] [address] [place] Hematocrit (Bld) [Volume fraction] 31.2 % Low 39.0-51.0 [facility] Comment on above: Order Comment: Speci men Type: BLOOD SPECIMENOrdering Facility: [facility] Address: [address] [place] [address] Performed By: #### 5 8410-2 ####[facility] LABCLIA [id number] [place] [address] [place] Hemoglobin (Bld) [Mass/Vol] 10.1 g/dL Low 13.0-17.0 [facility] Comment on above: Order Comment: Speci men Type: BLOOD SPECIMENOrdering Facility: [facility] Address: [address] [place] [address] Performed By: #### 5 8410-2 ####[facility] LABCLIA [id number] [place] [id number] [place] MCH (RBC) [Entitic mass] 29.8 pg Normal 26.0-34.0 [facility] Comment on above: Order Comment: Speci men Type: BLOOD SPECIMENOrdering Facility: [facility] Address: [address] [place] [address] Performed By: #### 5 8410-2 ####[facility] LABCLIA [id number] [place] [address] [place] MCHC (RBC) [Mass/Vol] 32.4 g/dL Normal 30.5-36.0 [facility] Comment on above: Order Comment: Speci men Type: BLOOD SPECIMENOrdering Facility: [facility] Address: [address] [place] [address] Performed By: #### 5 8410-2 ####[facility] LABCLIA [id number] [place] [address] [place] MCV (RBC) [Entitic vol] 92.0 fL Normal 80.0-100.0 [facility] Comment on above: Order Comment: Speci men Type: BLOOD SPECIMENOrdering Facility: [facility] Address: [address] [place] [address] Performed By: #### 5 8410-2 ####[facility] LABCLIA [id number] [place] [address] [place] Nucleated RBC (Bld) [#/Vol] 10*3/uL Normal <0.01 [facility] Comment on above: Order Comment: Speci men Type: BLOOD SPECIMENOrdering Facility: [facility] Address: [address] [place] [address] Performed By: #### 5 8410-2 ####[facility] LABCLIA [id number] [place] [address] [place] Platelet mean volume (Bld) [Entitic vol] 9.7 fL Normal 9.0-12.7 [facility] Comment on above: Order Comment: Speci men Type: BLOOD SPECIMENOrdering Facility: [facility] Address: [address] [place] [address] Performed By: #### 5 8410-2 ####[facility] LABCLIA [id number] [place] [address] [place] Platelets (Bld) [#/Vol] 191 10*3/uL Normal 150-400 [facility] Comment on above: Order Comment: Speci men Type: BLOOD SPECIMENOrdering Facility: [facility] Address: [address] [place] [address] Performed By: #### 5 8410-2 ####[facility] LABCLIA [id number] [place] [address] [place] RBC (Bld) [#/Vol] 3.39 10*6/uL Low 4.20-6.00 [facility] Comment on above: Order Comment: Speci men Type: BLOOD SPECIMENOrdering Facility: [facility] Address: [address] [place] [address] Performed By: #### 5 8410-2 ####[facility] LABCLIA [id number] [place] [address] [place] WBC (Bld) [#/Vol] 6.43 10*3/uL Normal 3.70-11.00 [facility] Comment on above: Order Comment: Speci men Type: BLOOD SPECIMENOrdering Facility: [facility] Address: [address] [place] [address] Performed By: #### 5 8410-2 ####[facility] LABCLIA [id number] [place] [address] [place] CNDS 07-26-2024 CNDS HNO ID: [id number] Author: DANIEL ZUNIGA MD Service: Orthopaedic Surgery [...] Complication, Without Long-Term Current Use of Insulin (Ltac, Located Within [facility]) Former Smoker Chronic Obstructive Pulmonary Disease (Ltac, Located Within 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) Mixed Hyperlipidemia Obstructive Sleep Apnea Syndrome Peripheral Venous Insufficiency Cva (Cerebral Vascular Accident) (Ltac, Located Within [facility]) Carotid Stenosis Surgeries During Hospitalization: Procedure(s) (LRB): [...] The patient was electively admitted to the [facility] on 07/25/2024. Surgery was scheduled and on [...] oxycodone PRN - Discharge Activity/Weight Bearing Status: NWB LUE in ultrasling Complications: Continued throughout the hospital course without complications. Other Information: N/A Patient Condition @ Discharge: Stable Discharge Disposition: Home with Relative The patient was instructed to follow-up as scheduled below Future Appointments Date Time Provider Department Center 08/08/2024 1:00 PM XR [facility] 1 [facility] 08/08/2024 1:20 PM Tamera Pineda, CLIENT RETENTION SPECIALIST.[facility] 08/27/2024 2:00 PM Mahesh Small MD SPSNAV Rej 09/03/2024 3:00 PM [facility] RGORAV Rej 09/03/2024 3:30 PM Hung [...] instructions oxyCO (more content not included)... Normal [facility] 07-26-2024 CNPN Telephone (PAINMN) ----- TYLER TORRES ([id number]) 1945 M Date Time Provider Department 07/26/24 SANDOR COPE PAINMN During your visit today, we recorded the following information about you: Sandor Cope APRN.MIRYAM 07/27/2024 1:46 PM Addendum DOS - 07/25/2024. Type of Surgery L TSA . Surgeon - Dr. Jacobsen Catheter site - Left interscalene Solution Ropi 0.2%. Rates [birth year]. Phone number [phone] July 27, 2024 1:42 PM Called and talked to pt, states pain level is: 12/21 The pump reads: 872.1 Pt states catheter dressing is intact, denies: redness, fever, draining, edema, pain Does pt c/o SOB, hoarse voice, difficulty swallowing No Denies c/o metallic taste in mouth, ringing in ears, dizziness etc. Pt is able to move: fingers Will call pt again Monday Comments: Continue Sandor Cope APRN.Heather Torres RN 07/29/2024 11:29 AM Signed DOS - 07/25/2024. Type of Surgery L TSA . Surgeon - Dr. Jacobsen Catheter site - Left interscalene Solution Ropi 0.2%. Rates [birth year]. Phone number [phone] 07/29 Called and talked to pt, states [...] Will call tomorrow to follow up. Alice Spicer, ALIYAH 07/30/2024 11:33 AM Signed DOS - 07/25/2024. Type of Surgery L TSA . Surgeon - Dr. Jacobsen Catheter site - Left interscalene Solution Ropi 0.2%. Rates [birth year]/16/59. Phone number [phone] 07/30 Called and talked to pt, states pump is shut off and will remove this afternoon. Will call patient again tomorrow. Alice Spicer RN 07/31/2024 9:34 AM Signed DOS - 07/25/2024. Type of Surgery L TSA . Surgeon - Dr. Jacobsen Catheter site - Left interscalene Solution Ropi 0.2%. Rates [birth year]/16/59. Phone number [phone] 07/31 Called and spoke with patient. Pump discontinued and catheter removed yesterday without difficulty. Site is unremarkable. Allergies As of Date: 07/26/2024 Noted Allergy Reaction SIMVASTATIN 05/10/2018 16 - Unknown Date Reviewed: 07/26/2024 Reviewed by: Jasen Baker RN - Fully Assessed Prescriptions as of 07/31/2024 [...] Status:Closed by ALICE SPICER on 07/31/24 Normal [facility] Comprehensive metabolic 2000 panelon 07-26-2024 Albumin [Mass/Vol] 3.0 g/dL Low 3.9-4.9 [facility] Comment on above: Order Comment: Speci men Type: BLOOD SPECIMENOrdering Facility: [facility] Address: [address] [place] [address] Performed By: #### 2 4323-8 ####[facility] LABCLIA [id number] [place] [address] [place] ALP [Catalytic activity/Vol] 55 U/L Normal 38-113 [facility] Comment on above: Order Comment: Speci men Type: BLOOD SPECIMENOrdering Facility: [facility] Address: [address] [id number] Performed By: #### 2 4323-8 ####[facility] LABCLIA [id number] [place] [address] [place] ALT [Catalytic activity/Vol] 13 U/L Normal 10-54 [facility] Comment on above: Order Comment: Speci men Type: BLOOD SPECIMENOrdering Facility: [facility] Address: [address] [place] [address] Performed By: #### 2 4323-8 ####[facility] LABCLIA [id number] [place] [address] [place] Anion gap [Moles/Vol] 8 mmol/L Normal 8-15 [facility] Comment on above: Order Comment: Speci men Type: BLOOD SPECIMENOrdering Facility: [facility] Address: [address] [place] [address] Performed By: #### 2 4323-8 ####[facility] LABCLIA [id number] [place] [address] [place] AST [Catalytic activity/Vol] 17 U/L Normal 14-40 [facility] Comment on above: Order Comment: Speci men Type: BLOOD SPECIMENOrdering Facility: [facility] Address: [address] [place] [address] Performed By: #### 2 4323-8 ####[facility] LABCLIA [id number] [place] [address] [place] Bilirubin [Mass/Vol] 0.3 mg/dL Normal 0.2-1.3 [facility] Comment on above: Order Comment: Speci men Type: BLOOD SPECIMENOrdering Facility: [facility] Address: [address] [place] [address] Performed By: #### 2 4323-8 ####[facility] LABCLIA [id number] [place] [address] [place] Calcium [Mass/Vol] 8.9 mg/dL Normal 8.5-10.2 [facility] Comment on above: Order Comment: Speci men Type: BLOOD SPECIMENOrdering Facility: [facility] Address: [address] [place] [address] Performed By: #### 2 4323-8 ####[facility] LABCLIA [id number] [facility] [place] [address] [place] Chloride [Moles/Vol] 105 mmol/L Normal 98-107 [facility] Comment on above: Order Comment: Speci men Type: BLOOD SPECIMENOrdering Facility: [facility] Address: [address] [place] [address] Performed By: #### 2 4323-8 ####[facility] LABCLIA [id number] [place] [address] [place] CO2 [Moles/Vol] 24 mmol/L Normal 22-30 [facility] Comment on above: Order Comment: Speci men Type: BLOOD SPECIMENOrdering Facility: [facility] Address: [address] [place] [address] Performed By: #### 2 4323-8 ####[facility] LABCLIA [id number] [place] [address] [place] Creatinine [Mass/Vol] 0.83 mg/dL Normal 0.73-1.22 [facility] Comment on above: Order Comment: Speci men Type: BLOOD SPECIMENOrdering Facility: [facility] Address: [address] [place] [address] Performed By: #### 2 4323-8 ####[facility] LABCLIA [id number] [place] [address] [place] Creatinine and Glomerular filtration rate.predicted panel (S/P/Bld) 88 mL/min/1.73m??? Normal >=60 [facility] Comment on above: Order Comment: Speci men Type: BLOOD SPECIMENOrdering Facility: [facility] Address: [address] [place] [address] Result Comment: Thuy mated Glomerular Filtration Rate [...] actual GFR. Performed By: #### 2 4323-8 ####[facility] LABCLIA [id number] [place] [address] [place] Glucose [Mass/Vol] 128 mg/dL High 74-99 [facility] Comment on above: Order Comment: Chris barajas Type: BLOOD SPECIMENOrdering Facility: [facility] Address: [address] [place] [address] Result Comment: The [place] Diabetes Association (ADA) provides guidance for cutoff [...] Standards of Medical Care in Diabetes 2016, Canadian Diabetes Association. Diabetes Care. 2016.39(Suppl 1). Performed By: #### 2 4323-8 ####[facility] LABCLIA [id number] [place] [address] [place] Potassium [Moles/Vol] 4.0 mmol/L Normal 3.7-5.1 [facility] Comment on above: Order Comment: Chris barajas Type: BLOOD SPECIMENOrdering Facility: [facility] Address: [address] [place] [address] Performed By: #### 2 4323-8 ####[facility] LABCLIA [id number] [place] [address] [place] Protein [Mass/Vol] 4.9 g/dL Low 6.3-8.0 [facility] Comment on above: Order Comment: Speci men Type: BLOOD SPECIMENOrdering Facility: [facility] Address: [address] [place] [address] Performed By: #### 2 4323-8 ####[facility] LABCLIA [id number] [place] [address] [place] Sodium [Moles/Vol] 137 mmol/L Normal 136-144 [facility] Comment on above: Order Comment: Speci men Type: BLOOD SPECIMENOrdering Facility: [facility] Address: [address] [place] [address] Performed By: #### 2 4323-8 ####[facility] LABCLIA [id number] [place] [address] [place] Urea nitrogen [Mass/Vol] 16 mg/dL Normal 9-24 [facility] Comment on above: Order Comment: Speci men Type: BLOOD SPECIMENOrdering Facility: [facility] Address: [address] [place] [address] Performed By: #### 2 4323-8 ####[facility] LABCLIA [id number] [place] [address] [place] NURSING PROGon 07-26-2024 NURSING PROG HNO ID: [id number] Author: JASEN BAKER, ALIYAH Service: ? Author Type: Registered Nurse Type: Nursing Progress Note Filed: 07/26/2024 15:37 Note Text: Other: 0920-pt up at bedside with nursing. pain low to shoulder. nerve catheter maintained. dc planned today Normal [facility] THERAPY NTon 07-26-2024 THERAPY NT HNO ID: [id number] Author: GREGOR BOCANEGRA, OTR/L Service: Occupational Therapy Author Type: Starch Factory Laborer Type: Therapy (PT/OT/Speech/Resp) Filed: 08/09/2024 07:42 Note Text: ----- Attestation signed by Gregor Bocanegra OTR/L at 08/09/2024 7:42 AM I reviewed and agree with the documentation corresponding to this therapy visit. SIGNATURE: HAI Granda DATE: August 09, 2024 TIME: 7:42 AM ----- Occupational Therapy Treatment Summary SERVICE DATE: 07/26/2024 SERVICE TIME: 1505 to 1544 ROOM: [place] [address] OT 6 Clicks Score: 19 Total Joint [...] General symptoms and signs-other TREATMENT INTERVENTIONS Self Prison Management (71938) Timed Code Treatment (minutes): 39 Skilled Treatment [...] Training, B (more content not included)... Normal [facility] THERAPY NT HNO ID: [id number] Author: TIM CLARK, PT, DPT Service: Physical Therapy Author Type: Physical Therapist Type: Therapy (PT/OT/Speech/Resp) Filed: 07/26/2024 13:41 Note Text: Physical Therapy Evaluation Summary SERVICE DATE: 07/26/2024 SERVICE TIME: 1300 to 1330 ROOM: [place] [address] PT 6 Clicks Score: 21 Total Joint [...] Reduced mobility-other TREATMENT INTERVENTIONS Evaluation, Therapeutic Activity (00379) Timed Code Treatment (minutes): 15 Skilled Treatment [...] July 26, 2024 TIME: 1:41 PM Normal [facility] THERAPY NT HNO ID: [id number] Author: UYEN MONTERO OT/L Service: Occupational Therapy Author Type: Occupational Therapist Type: Therapy (PT/OT/Speech/Resp) Filed: 07/26/2024 13:29 Note Text: Occupational Therapy Evaluation Summary SERVICE DATE: 07/26/2024 SERVICE TIME: 1140 to 1248 ROOM: [facility] OT 6 Clicks Score: 15 Total Joint [...] symptoms and signs-other TREATMENT INTERVENTIONS Evaluation, Self Prison Management (67078), Therapeutic Exercise (73703), Therapeutic Activity (93161) Timed Code Treatment (minutes): 53 Skilled Treatment Time (minutes): 68 TRAINING AND EDUCATION PROVIDED Activity Adaptation/Compensatory Strategies, Adaptive Equipment/DME, Bed Mobility, Benefits of In-Hospital Mobility, Functional Mobility Involving ADLs, Discharge Planning, Energy Conservation, Expected Functional Level, Disease Specific Education, Command Following, Insight into Deficits, Pain Management, Positioning, Precautions/Restrictions, Memory/Attention, Role of Occupational Therapy, Safety/Judgment, Self-Efficacy, Self-Expression/Advocacy, Sitting Balance to Improve [place] with ADLs/Self-Care, Standing Balance to Improve [place] with ADLs/Self-Care, Transfer - Sit to Stand, [...] Minimal Assistance (more content not included)... Normal [facility] ANES POSTPROC EVALon 024 ANES POSTPROC EVAL HNO ID: [id number] Author: ÁNGEL FISHER MD Service: ? Author Type: Anesthesiologist Type: Anesthesia Postprocedure Evaluation Filed: 07/25/2024 15:45 Note Text: POST ANESTHESIA EVALUATION NOTE : 1945 Procedure Summary Date: 07/25/24 Room / Location: [address] [facility] Anesthesia Start: 1108 Anesthesia Stop: Procedure: ARTHROPLASTY [...] July 25, 2024 TIME: 3:12 PM CSN: [id number] Normal [facility] ANES PRE-OPon 07-25-2024 ANES PRE-OP HNO ID: [id number] Author: ÁNGEL FISHER MD Service: ? Author Type: Anesthesiologist Type: Anesthesia Preprocedure Evaluation Filed: 07/25/2024 13:59 Note Text: ANESTHESIOLOGY DAY OF SURGERY NOTE : 1945 Procedure Information Anesthesia Start Date/Time: 07/25/24 1108 Procedure: ARTHROPLASTY REPLACE JOINT TOTAL SHOULDER (Left: Shoulder) Location: MAIN [facility] Surgeons: Hung Jacobsen MD [...] and consent discussed: yes. Patient / Responsible Alliance Party agrees to proceed: yes Patient / [...] 48 hours of Surgery/Procedure. SIGNATURE: Shannon Abreu APRN.GUN NUMBER PATIENT NAME: Tyler Torres DATE: July 25, 2024 TIME: 1:56 PM CSN: [id number] Normal [facility] ANE PRE-OP HNO ID: [id number] Author: ÁNGEL FISHER MD Service: ? Author Type: Anesthesiologist Type: Anesthesia Preprocedure Evaluation Filed: 07/29/2024 07:08 Note Text: ANESTHESIOLOGY DAY OF SURGERY NOTE : 1945 Procedure Information Anesthesia Start Date/Time: 07/25/24 1108 Procedure: ARTHROPLASTY REPLACE JOINT TOTAL SHOULDER (Left: Shoulder) Location: [place] [address] / [facility] Surgeons: Hung Jacobsen MD [...] and consent discussed: yes. Patient / Responsible Alliance Party agrees to proceed: yes Patient / [...] July 25, 2024 TIME: 11:24 AM CSN: [id number] Normal [facility] BRIEF OP NOTon 07-25-2024 BRIEF OP NOT HNO ID: [id number] Author: CHRISTINA HARRIS MD Service: Orthopaedic Surgery Author Type: Physician Type: Brief Op Note Filed: 07/25/2024 14:40 Note Text: BRIEF OP NOTE LOG ID: [id number] Surgery/Procedure Date: 07/25/2024 Incision/Procedure Start Time: 11:52 AM Incision Close/Procedure End Time: Surgeon(s)/Proceduralist( s) and Storage Architect(s): Surgeons and Role: * Hung Jacobsen MD [...] 25, 2024 TIME: 2:39 PM PAGER/CONTACT #: [phone] [facility] OPERATIVE NOon 07-25-2024 OPERATIVE NO HNO ID: [id number] Author: HUNG JACOBSEN MD Service: Orthopaedic Surgery Author Type: Physician Type: Operative Report Filed: 07/25/2024 15:43 Note Text: OPERATIVE/PROCEDURE REPORT LOG ID: [id number] SURGERY/PROCEDURE DATE: 07/25/2024 INCISION/PROCEDURE START TIME: 11:52 AM INCISION CLOSE/PROCEDURE END TIME: 2:50 PM SURGEON(S)/PROCEDURALIST( S) AND EXTRUSION PRESS OPERATOR(S): Surgeons and Role: * Hung Jacobsen MD - Primary Customs Port Director * Christina Harris MD - Fellow Second Storage Architect * Daniel Zuniga MD - Resident - Assisting SURGERY/PROCEDURE(S): Left reverse Total Shoulder Arthroplasty 69295, biceps tenodesis 59714 PRE-OP/PRE-PROCEDURE DIAGNOSIS: Left glenohumeral arthritis with biceps tendinitis POST-OP/POST-PROCEDURE DIAGNOSIS: Left glenohumeral arthritis of biceps tendinitis ANESTHESIA: General With regional anesthesia OPERATIVE INDICATIONS: 79 year old male who has long history with chronic left shoulder pain. Patient was diagnosed with glenohumeral arthritis and has failed nonoperative treatment including modification of activities, nips-xnu-uyljobe medication and injections. Due to failure of [...] dislocated, greater tuberosity footprint, bare spot and [place] capsular joint line were identified after removing [...] 22, 2 (more content not included)... Normal [facility] SURGICAL PATHOLOGYon CASE REPORT Normal [facility] Comment on above: Order Comment: Chris barajas Type: TISSUE SPECIMENOrdering Facility: [facility] Address: [address] [place] [address] Result Comment: Surg ica Pathology Report Case: [id number] Authorizing Provider: Hung Jacobsen MD Collected: 07/25/2024 01:35 PM Ordering Location: Admitting Received: 07/25/2024 02:24 PM Pathologist: Margot Catherine MD Specimen: Bone, Resection, LEFT shoulder bone Performed By: #### S ####[facility] LABCLIA [id number] [place] [address] [place] CLINICAL HISTORY Normal [facility] Comment on above: Order Comment: Chris barajas Type: TISSUE SPECIMENOrdering Facility: [facility] Address: [address] [place] [address] Result Comment: Pre- op diagnosis: Chronic left shoulder pain [M25.512, G89.29] Performed By: #### S ####[facility] LABCLIA [id number] FINAL DIAGNOSIS Normal [facility] Comment on above: Order Comment: Speci karl Type: TISSUE SPECIMENOrdering Facility: [facility] Address: [address] [place] [address] Result Comment: A. Leeroy umeral head, left, arthroplasty: - Degenerative joint disease. Performed By: #### S ####[facility] LABCLIA [id number] [address] FINAL PERFORMING LAB Normal [facility] Comment on above: Order Comment: Speci karl Type: TISSUE SPECIMENOrdering Facility: [facility] Address: [address] [place] [address] Result Comment: Diag nostic interpretation performed at [facility], [address] [place] [address] CLIA# [id number] Analyst: Benoit Menchaca M.D. Performed By: #### S ####[facility] LABCLIA [id number] [address] GROSS DESCRIPTION Normal [facility] Comment on above: Order Comment: Chris barajas Type: TISSUE SPECIMENOrdering Facility: [facility] Address: [address] [place] [address] Result Comment: A. B one, Resection Received [...] are multiple sommers, irregular soft tissue fragments. Assessment Technician sections are submitted as follows: A1 soft tissue, A2 bone from weight bearing and non-weight bearing surfaces following formic acid decalcification. Gross examination performed at [facility], [address] [place] [address] 07/25/24 Performed By: #### S ####[facility] LABCLIA [id number] [place] [address] [place] XR SHOULDER 2V AP/TRUE AP LT on [...] swelling and gas. IMPRESSION: EXPECTED POSTOPERATIVE APPEARANCE. Cardiology Consultant: PSCB Transcribe Date/Time: Jul 25 2024 7:38P Dictated by : JUVENCIO BURRIS MD This examination was interpreted and the report reviewed and electronically signed by: JUVENCIO BURRIS MD on Jul 25 2024 7:39PM EST [id number] Normal [facility] CBC W Auto Differential pane l (Bld)on 07-22-2024 Basophils (Bld) [#/Vol] 0.04 10*3/uL Normal <0.11 [facility] Comment on above: Order Comment: Speci men Type: BLOOD SPECIMENOrdering Facility: [facility] Address: [address] [place] [address] Performed By: #### 5 7021-8 ####[facility] LABCLIA [id number] [place] [address] [place] Basophils/100 WBC (Bld) 0.6 % Normal [facility] Comment on above: Order Comment: Speci men Type: BLOOD SPECIMENOrdering Facility: [facility] Address: [address] [place] [address] Performed By: #### 5 7021-8 ####[facility] LABCLIA [id number] [place] [address] [place] Differential cell count method Nom (Bld) Auto Normal [facility] Comment on above: Order Comment: Speci men Type: BLOOD SPECIMENOrdering Facility: [facility] Address: [address] [place] [address] Performed By: #### 5 7021-8 ####[facility] LABCLIA [id number] [place] [address] [place] Eosinophils (Bld) [#/Vol] 0.16 10*3/uL Normal <0.46 [facility] Comment on above: Order Comment: Speci men Type: BLOOD SPECIMENOrdering Facility: [facility] Address: [address] [place] [address] Performed By: #### 5 7021-8 ####[facility] LABCLIA [id number] [place] [address] [place] Eosinophils/100 WBC (Bld) 2.3 % Normal [facility] Comment on above: Order Comment: Speci men Type: BLOOD SPECIMENOrdering Facility: [facility] Address: [address] [place] [address] Performed By: #### 5 7021-8 ####[facility] LABIA [id number] [place] [address] [place] Erythrocyte distribution width (RBC) [Ratio] 13.9 % Normal 11.5-15.0 [facility] Comment on above: Order Comment: Speci men Type: BLOOD SPECIMENOrdering Facility: [facility] Address: [address] [place] [address] Performed By: #### 5 7021-8 ####[facility] LABCLIA [id number] [place] [address] [place] Hematocrit (Bld) [Volume fraction] 41.1 % Normal 39.0-51.0 [facility] Comment on above: Order Comment: Speci men Type: BLOOD SPECIMENOrdering Facility: [facility] Address: [address] [place] [address] Performed By: #### 5 7021-8 ####[facility] LABCLIA [id number] [place] [address] [place] Hemoglobin (Bld) [Mass/Vol] 13.2 g/dL Normal 13.0-17.0 [facility] Comment on above: Order Comment: Speci men Type: BLOOD SPECIMENOrdering Facility: [facility] Address: [address] [place] [address] Performed By: #### 5 7021-8 ####[facility] LABCLIA [id number] [place] [address] [place] Immature granulocytes (Bld) [#/Vol] 10*3/uL Normal <0.10 [facility] Comment on above: Order Comment: Speci men Type: BLOOD SPECIMENOrdering Facility: [facility] Address: [address] [place] [address] Performed By: #### 5 7021-8 ####[facility] LABCLIA [id number] [place] [address] [place] Immature granulocytes/100 WBC (Bld) 0.1 % Normal [facility] Comment on above: Order Comment: Speci men Type: BLOOD SPECIMENOrdering Facility: [facility] Address: [address] [place] [address] Performed By: #### 5 7021-8 ####[facility] LABCLIA [id number] [place] [address] [place] Lymphocytes (Bld) [#/Vol] 1.43 10*3/uL Normal 1.00-4.00 [facility] Comment on above: Order Comment: Speci men Type: BLOOD SPECIMENOrdering Facility: [facility] Address: [address] [place] [address] Performed By: #### 5 7021-8 ####[facility] LABIA [id number] [place] [address] [place] Lymphocytes/100 WBC (Bld) 20.5 % Normal [facility] Comment on above: Order Comment: Speci men Type: BLOOD SPECIMENOrdering Facility: [facility] Address: [address] [place] [address] Performed By: #### 5 7021-8 ####[facility] LABIA [id number] [place] [address] [place] MCH (RBC) [Entitic mass] 30.0 pg Normal 26.0-34.0 [facility] Comment on above: Order Comment: Speci men Type: BLOOD SPECIMENOrdering Facility: [facility] Address: [address] [place] [address] Performed By: #### 5 7021-8 ####[facility] LABIA [id number] [place] [address] [place] MCHC (RBC) [Mass/Vol] 32.1 g/dL Normal 30.5-36.0 [facility] Comment on above: Order Comment: Speci men Type: BLOOD SPECIMENOrdering Facility: [facility] Address: [address] [place] [address] Performed By: #### 5 7021-8 ####[facility] LABIA [id number] [place] [address] [place] MCV (RBC) [Entitic vol] 93.4 fL Normal 80.0-100.0 [facility] Comment on above: Order Comment: Speci men Type: BLOOD SPECIMENOrdering Facility: [facility] Address: [address] [place] [address] Performed By: #### 5 7021-8 ####[facility] LABIA [id number] [id number] [address] [place] Monocytes (Bld) [#/Vol] 0.97 10*3/uL High <0.87 [facility] Comment on above: Order Comment: Speci men Type: BLOOD SPECIMENOrdering Facility: [facility] Address: [address] [place] [address] Performed By: #### 5 7021-8 ####[facility] LABCLIA [id number] [place] [address] [place] Monocytes/100 WBC (Bld) 13.9 % Normal [facility] Comment on above: Order Comment: Speci men Type: BLOOD SPECIMENOrdering Facility: [facility] Address: [address] [place] [address] Performed By: #### 5 7021-8 ####[facility] LABCLIA [id number] [place] [address] [place] Neutrophils (Bld) [#/Vol] 4.38 10*3/uL Normal 1.45-7.50 [facility] Comment on above: Order Comment: Speci men Type: BLOOD SPECIMENOrdering Facility: [facility] Address: [address] [place] [address] Performed By: #### 5 7021-8 ####[facility] LABCLIA [id number] [place] [address] [place] Neutrophils/100 WBC (Bld) 62.6 % Normal [facility] Comment on above: Order Comment: Speci men Type: BLOOD SPECIMENOrdering Facility: [facility] Address: [address] [place] [address] Performed By: #### 5 7021-8 ####[facility] LABCLIA [id number] [place] [address] [place] Nucleated RBC (Bld) [#/Vol] 10*3/uL Normal <0.01 [facility] Comment on above: Order Comment: Speci men Type: BLOOD SPECIMENOrdering Facility: [facility] Address: [address] [place] [address] Performed By: #### 5 7021-8 ####[facility] LABCLIA [id number] [place] [address] [place] Nucleated RBC/100 WBC (Bld) [Ratio] 0.0 /100 WBC Normal [facility] Comment on above: Order Comment: Speci men Type: BLOOD SPECIMENOrdering Facility: [facility] Address: [address] [place] [address] Performed By: #### 5 7021-8 ####[facility] LABCLIA [id number] [place] [address] [place] Platelet mean volume (Bld) [Entitic vol] 9.9 fL Normal 9.0-12.7 [facility] Comment on above: Order Comment: Speci men Type: BLOOD SPECIMENOrdering Facility: [facility] Address: [address] [place] [address] Performed By: #### 5 7021-8 ####[facility] LABCLIA [id number] [place] [address] [place] Platelets (Bld) [#/Vol] 251 10*3/uL Normal 150-400 [facility] Comment on above: Order Comment: Speci men Type: BLOOD SPECIMENOrdering Facility: [facility] Address: [address] [place] [address] Performed By: #### 5 7021-8 ####[facility] LABCLIA [id number] [place] [address] [place] RBC (Bld) [#/Vol] 4.40 10*6/uL Normal 4.20-6.00 [facility] Comment on above: Order Comment: Speci men Type: BLOOD SPECIMENOrdering Facility: [facility] Address: [address] [place] [address] Performed By: #### 5 7021-8 ####[facility] LABCLIA [id number] [place] [address] [place] WBC (Bld) [#/Vol] 6.99 10*3/uL Normal 3.70-11.00 [facility] Comment on above: Order Comment: Speci men Type: BLOOD SPECIMENOrdering Facility: [facility] Address: [address] [place] [address] Performed By: #### 5 7021-8 ####[facility] LABCLIA [id number] [place] [address] [place] CT SHOULDER WO IVCON LTon CT SHOULDER WO IVCON LT * * *Final Report* * * DATE OF EXAM: Jul 22 2024 10:26AM [facility] 0089 - CT SHOULDER WO IVCON LT / [...] obtained in 12 months --END OF FINDING-- Cardiology Consultant: WERO Transcribe Date/Time: Jul 24 2024 2:15P Dictated by : LIMA CARR MD This examination was interpreted and the report reviewed and electronically signed by: LIMA CARR MD on Jul 24 2024 2:20PM EST [id number] [id number] Invalid Interpretation Code [facility] Comprehensive metabolic 2000 panelon 07-22-2024 Albumin [Mass/Vol] 3.9 g/dL Normal 3.9-4.9 [facility] Comment on above: Order Comment: Chris barajas Type: BLOOD SPECIMENOrdering Facility: [facility] Address: [address] [place] [address] Performed By: #### 2 4323-8 ####[facility] LABCLIA [id number] [place] [address] [place] ALP [Catalytic activity/Vol] 79 U/L Normal 38-113 [facility] Comment on above: Order Comment: Kelseyi karl Type: BLOOD SPECIMENOrdering Facility: [facility] Address: [address] [place] [address] Performed By: #### 2 4323-8 ####[facility] LABCLIA [id number] [place] [address] [place] ALT [Catalytic activity/Vol] 14 U/L Normal 10-54 [facility] Comment on above: Order Comment: Speci men Type: BLOOD SPECIMENOrdering Facility: [facility] Address: [address] [place], [place] [address] Performed By: #### 2 4323-8 ####[facility] LABCLIA [id number] [place] [address] [place] Anion gap [Moles/Vol] 10 mmol/L Normal 8-15 [facility] Comment on above: Order Comment: Speci men Type: BLOOD SPECIMENOrdering Facility: [facility] Address: [address] [place] [address] Performed By: #### 2 4323-8 ####[facility] LABCLIA [id number] [place] [address] [place] AST [Catalytic activity/Vol] 21 U/L Normal 14-40 [facility] Comment on above: Order Comment: Speci men Type: BLOOD SPECIMENOrdering Facility: [facility] Address: [address] [place] [address] Performed By: #### 2 4323-8 ####[facility] LABCLIA [id number] [place] [address] [place] Bilirubin [Mass/Vol] 0.4 mg/dL Normal 0.2-1.3 [facility] Comment on above: Order Comment: Speci men Type: BLOOD SPECIMENOrdering Facility: [facility] Address: [address] [place], [place] [address] Performed By: #### 2 4323-8 ####[facility] LABCLIA [id number] [place] [address] [place] Calcium [Mass/Vol] 10.3 mg/dL High 8.5-10.2 [facility] Comment on above: Order Comment: Speci men Type: BLOOD SPECIMENOrdering Facility: [facility] Address: [address] [place] [address] Performed By: #### 2 4323-8 ####[facility] LABCLIA [id number] [place] [address] [place] Chloride [Moles/Vol] 103 mmol/L Normal 98-107 [facility] Comment on above: Order Comment: Speci men Type: BLOOD SPECIMENOrdering Facility: [facility] Address: [address] [place] [address] Performed By: #### 2 4323-8 ####[facility] LABCLIA [id number] [place] [address] [place] CO2 [Moles/Vol] 24 mmol/L Normal 22-30 [facility] Comment on above: Order Comment: Speci men Type: BLOOD SPECIMENOrdering Facility: [facility] Address: [address] [place] [address] Performed By: #### 2 4323-8 ####[facility] LABCLIA [id number] [place] [address] [place] Creatinine [Mass/Vol] 0.96 mg/dL Normal 0.73-1.22 [facility] Comment on above: Order Comment: Speci men Type: BLOOD SPECIMENOrdering Facility: [facility] Address: [address] [place] [address] Performed By: #### 2 4323-8 ####[facility] LABIA [id number] [address] [place] Creatinine and Glomerular filtration rate.predicted panel (S/P/Bld) 80 mL/min/1.73m??? Normal >=60 [facility] Comment on above: Order Comment: Speci men Type: BLOOD SPECIMENOrdering Facility: [facility] Address: [address] [place] [address] Result Comment: Thuy mated Glomerular Filtration Rate [...] actual GFR. Performed By: #### 2 4323-8 ####[facility] LABIA [id number] [place] [address] [place] Glucose [Mass/Vol] 99 mg/dL Normal 74-99 [facility] Comment on above: Order Comment: Speci men Type: BLOOD SPECIMENOrdering Facility: [facility] Address: [address] [place] [address] Result Comment: The Canadian Diabetes Association (ADA) provides guidance for cutoff [...] Standards of Medical Care in Diabetes 2016, Canadian Diabetes Association. Diabetes Care. 2016.39(Suppl 1). Performed By: #### 2 4323-8 ####[facility] LABIA [id number] [place] [address] [place] Potassium [Moles/Vol] 4.4 mmol/L Normal 3.7-5.1 [facility] Comment on above: Order Comment: Speci men Type: BLOOD SPECIMENOrdering Facility: [facility] Address: [address] [place] [address] Performed By: #### 2 4323-8 ####[facility] LABIA [id number] [place] [address] [place] Protein [Mass/Vol] 6.2 g/dL Low 6.3-8.0 [facility] Comment on above: Order Comment: Speci men Type: BLOOD SPECIMENOrdering Facility: [facility] Address: [address] [place] [address] Performed By: #### 2 4323-8 ####[facility] LABCLIA [id number] [place] [address] [place] Sodium [Moles/Vol] 137 mmol/L Normal 136-144 [facility] Comment on above: Order Comment: Speci men Type: BLOOD SPECIMENOrdering Facility: [facility] Address: [address] [place] [address] Performed By: #### 2 4323-8 ####[facility] LABIA [id number] [place] [address] [place] Urea nitrogen [Mass/Vol] 9 mg/dL Normal 9-24 [facility] Comment on above: Order Comment: Speci men Type: BLOOD SPECIMENOrdering Facility: [facility] Address: [address] [place] [address] Performed By: #### 2 4323-8 ####[facility] LABIA [id number] [place] [address] [place] [id number] 07-22-2024 ECG01 Ventricular Rate : 6 9 BPM Atrial Rate : 69 BPM P-R Interval : 174 ms QRS Duration : 82 ms Q-T Interval : 372 ms QTC Calculation(Bazett) : 398 ms Calculated P Letha : 23 degrees Calculated R Letha : 9 degrees Calculated T Letha : 73 degrees NORMAL SINUS RHYTHM NORMAL ECG Confirmed by STEVEN KHALIL MD ([id number]) on 07/23/2024 9:38:18 PM NAME : TYLER TORRES PID : [id number] : 1945 Gender : Male Race : ORD : Procedure Date : Jul 22 2024 14:07:01 Edit Date : Jul 23 2024 21:38:19 Diagnosis: NORMAL SINUS RHYTHM NORMAL ECG Confirmed by STEVEN KHALIL MD ([id number]) on 07/23/2024 9:38:18 PM Test Reason : PRE OP Location : [facility] : [facility] Overread By : STEVEN KHALIL MD Edited By : STEVEN KHALIL MD Referred By : HUNG JACOBSEN Acquired by : Saud ORTIZ [facility] Ferritin [Mass/Vol] 29.1 ng/mL Low 30.3-565.7 [facility] Comment on above: Order Comment: Speci men Type: BLOOD SPECIMENOrdering Facility: [facility] Address: [address] [place] [address] Performed By: #### 5 0190-8, 2276-4 ####[facility] LABCLIA [id number] [facility] [place] [address] [place] HISTORY PHYSICALon HISTORY PHYSICAL HNO ID: [id number] Author: ERIC KEBEDE APRN.MIRYAM Service: ? Author Type: Nurse Practitioner Type: [...] complication, without long-term current use of insulin ([facility]) Assessment: managed with oral med, stable Follows up with PCP BG at home 100's HgbA1c 6.1% 03/24/24 CVA (cerebral vascular accident) ([facility]) Assessment: hx 03/2024 Follows up with neurology, [...] STOP-Bang Score: 0 (Non-compliant with CPAP ) [id number] Score: Age: >=75 Sex: male [id number] Score: ARISCAT Score: Age: 51-80 Preoperative SpO2: [...] patient stern (more content not included)... Normal [facility] Iron and Iron binding capaci ty panelon 07-22-2024 Iron [Mass/Vol] 50 ug/dL Normal 41-186 [facility] Comment on above: Order Comment: Speci men Type: BLOOD SPECIMENOrdering Facility: [facility] Address: [address] [place] [address] Performed By: #### 5 0190-8, 6-4 ####[facility] LABCLIA [id number] [place] [address] [place] Iron binding capacity [Mass/Vol] 365 ug/dL Normal 232-386 [facility] Comment on above: Order Comment: Speci men Type: BLOOD SPECIMENOrdering Facility: [facility] Address: [address] [place] [address] Performed By: #### 5 0190-8, 2276-4 ####[facility] LABCLIA [id number] [place] [address] [place] Iron/TIBC [Molar ratio] 13.7 % Low 15.0-57.0 [facility] Comment on above: Order Comment: Speci men Type: BLOOD SPECIMENOrdering Facility: [facility] Address: [address] [place] [address] Performed By: #### 5 0190-8, 2276-4 ####[facility] LABCLIA [id number] [place] [address] [place] [facility] [place] TYPE AND SCREEN,30 DAYon ABO A Normal [facility] Comment on above: Order Comment: Speci men Type: BLOOD SPECIMENOrdering Facility: [facility] Address: [address] [place] [address] Performed By: #### T SCR30 ####[facility] BLOOD BANKCLIA [id number] [address] Rh Nom (Bld) Positive Normal [facility] Comment on above: Order Comment: Speci men Type: BLOOD SPECIMENOrdering Facility: [facility] Address: [address] [place] [address] Performed By: #### T SCR30 ####[facility] BLOOD BANKCLIA [id number] [address] [place] XR CHEST 2V FRONTAL/LATon [...] changes appreciated. IMPRESSION: No acute radiographic abnormality. Cardiology Consultant: [facility] Transcribe Date/Time: Jul 22 2024 12:13P Dictated by : ANN CORRAL MD This examination was interpreted and the report reviewed and electronically signed by: ANN CORRAL MD on Jul 22 2024 12:15PM EST [id number] Normal [facility] XR Chest PA and Lateralon IMPRESSION: No acute radiographic abnormality. Cardiology Consultant: [facility] Transcribe Date/Time: Jul 22 2024 12:13P [...] degenerative changes appreciated. DIVISION OF RADIOLOGY Provider, [facility] - 07/22/2024 * * *Final Report* [...] appreciated. IMPRESSION IMPRESSION: No acute radiographic abnormality. Cardiology Consultant: [facility] Transcribe Date/Time: Jul 22 2024 12:13P Dictated by : ANN CORRAL MD This examination was interpreted and the report reviewed and electronically signed by: ANN CORRAL MD on Jul 22 2024 12:15PM EST [facility] Radiology Study observation (narrative) [facility] XR Chest PA and LateralOrder ed By: Ccf Provider on 07-22-2024 [facility] CNOVon 06-18-2024 CNOV Office Visit ([place] ) ----- TYLER TORRES ([id number]) 1945 M Date Time Provider Department 06/18/24 [...] upper extremity he may have a short long-term facility stay. I discussed the below risks, [...] related complications, post-op medical complications such as IA/pneumonia/etc, and were also discussed, and patient advised [...] Biceps tendinitis (more content not included)... Normal [facility] Cardiac echo study Procedure on 03-25-2024 Aortic root 2.90 cm [employer] System AV mean gradient 11.00 mmHg [employer] [facility] AV peak gradient 18.66 mmHg [facility] AV peak balbina 216.00 cm/s [facility] AV valve area 2.40 cm2 [facility] AV Velocity Ratio 0.58 [facility] AV VTI 34.80 cm [facility] E wave deceleration time 268.00 msec [facility] E/A ratio 0.91 [facility] Echo EF Estimated 65 % [facility] EF 65 % [facility] Est. RA pressure 3 mmHg [facility] FS 30 % 28 - 44 % [facility] Interventricular Septum Diastolic Thickness by 2D 13.6 cm [facility] IVS 1.36 cm 0.6 - 1.1 cm [facility] LA size 4.50 cm [facility] LA volume 46.00 cm3 [facility] LA Volume Index 24.0 mL/m2 [facility] Left Ventricle Mass 229.282033578853853 g [facility] LV Diastolic Volume 67.90 mL [facility] LV ESV A2C 43.10 mL [facility] LV ESV A4C 44.10 mL [facility] LV RWT 2D 50.32 [facility] LV Systolic Volume 24.10 mL [facility] LVIDd 4.69 cm [facility] LVIDs 3.26 cm [facility] LVOT diameter 2.30 cm [facility] LVOT peak balbina 1.00 m/s [facility] LVOT peak VTI 20.10 cm [facility] LVOT stroke volume 83.51 ml [facility] MV E' average 6.0 cm/s [facility] MV Peak A Balbina 66.90 cm/s [facility] MV Peak E Balbina 60.60 cm/s [facility] MV pressure 1/2 time 78.00 ms [facility] MV TDI E' (medial) 4.93 cm/s [facility] MV valve area p 1/2 method 2.82 cm2 [facility] PW 1.18 cm 0.6 - 1.1 cm [facility] RA area 12.1 cm2 [facility] RV diastolic dimension (basal) 25.8 mm [facility] RV Peak Systolic Pressure 32 mmHg [facility] TDI 7.06 cm/s [facility] TR peak gradient 29.00 mmHg [facility] TR Peak Balbina 2.7 m/s [facility] Valve area - Index 1.2 [facility] Left ventricle appea rs normal in size [...] normal. The chordae are thickened/calcified. There is [id number] regurgitation. There is no evidence of mitral [...] left ventricular wall motion is normal. XCELERA [facility] Radiology Study observation (narrative) [facility] Cobalamin (Vitamin B12) [Mas s/Vol]on 03-25-2024 Interpretation and review of laboratory results Abnormal [facility] Folateon 03-25-2024 Folate [Mass/Vol] ng/mL 5.8 - PINF ng/mL [facility] Comment on above: NEW REFERENCE RANGE Folate [Mass/Vol]on 03-25-20 24 [facility] FOLIC ACID >25.0 Normal >5.8 [facility] Comment on above: Result Comment: NEW REFERENCE RANGE Performed By: #### S PE, 05846-7, 2284-8, 2132-9 ####[facility] ([id number])[address] [place] [address], [address] [place] [address] Glucose Glucometer (BldC) [M ass/Vol]on 03-25-2024 Glucose [Mass/Vol] 146 mg/dL High 65 - 99 mg/dL [facility] Interpretation and review of laboratory results Abnormal [facility] Glucose [Mass/Vol] 146 mg/dL High 65-99 [facility] Glucose [Mass/Vol] 139 mg/dL High 65 - 99 mg/dL [facility] Interpretation and review of laboratory results Abnormal [facility] Glucose [Mass/Vol] 139 mg/dL High 65-99 [facility] Glucose [Mass/Vol] 104 mg/dL High 65 - 99 mg/dL [facility] Interpretation and review of laboratory results Abnormal [facility] Glucose [Mass/Vol] 104 mg/dL High 65-99 [facility] Hemoglobin A1con 03-25-2024 Average glucose Estimated from glycated hemoglobin (Bld) [Mass/Vol] 128 mg/dL [facility] HbA1c (Bld) [Mass fraction] 6.1 % High 4.4 - 5.6 % [facility] Comment on above: NOTE ADA Guidelines Result HgbA1c Normal : less than 5.7 % Prediabetes : 5.7 % to 6.4 % Diabetes : > 6.4 % Use with caution in patients with abnormal hemoglobin variants as the half-life of red blood cells and in vivo glycation rates are affected. Interpretation and review of laboratory results Abnormal [facility] Lipid 1996 panelon Cholesterol [Mass/Vol] 179 mg/dL 150 - 200 mg/dL [facility] Cholesterol in HDL [Mass/Vol] 50 mg/dL 39 - PINF mg/dL [facility] Comment on above: HDL <40 mg/dL - High Risk HDL > or = 40mg/dL- Desirable HDL >60 mg/dL - Negative Risk Cholesterol in LDL [Mass/Vol] 112 mg/dL NINF - 130 mg/dL [facility] Comment on above: LDL <100 mg/dL - Desirable LDL >160 mg/dL - High Risk Cholesterol in VLDL [Mass/Vol] 17 mg/dL 0 - 30 mg/dL [facility] Cholesterol.total/Ch olesterol in HDL [Mass ratio] 3.6 {ratio} 1.0 - 5.0 [facility] Triglyceride [Mass/Vol] 87 mg/dL 27 - 150 mg/dL [facility] Cholesterol [Mass/Vol] 179 mg/dL Normal 150-200 [facility] Comment on above: Performed By: #### Cody DICKEY, 99077-4, 2284-03, 2132-04 ####[facility] ([id number])[address] [place] [address], [address] [place] [address] Cholesterol in HDL [Mass/Vol] 50 mg/dL Normal >39 [facility] Comment on above: Result Comment: HDL <40 mg/dL - High Risk HDL > or = 40mg/dL- Desirable HDL >60 mg/dL - Negative Risk Performed By: #### Cody DICKEY, 77063-6, 2284-03, 2132-04 ####[facility] ([id number])[address] [place] [address], [address] [place] [address] Cholesterol in LDL [Mass/Vol] 112 mg/dL Normal <130 [facility] Comment on above: Result Comment: LDL <100 mg/dL - Desirable LDL >160 mg/dL - High Risk Performed By: #### S PE, 89114-6, 8, 2132-04 ####[facility] ([id number])[address], [address] [place] [address] Cholesterol in VLDL [Mass/Vol] 17 mg/dL Normal 0-30 [facility] Comment on above: Performed By: #### S PE, 98159-9, 2283-8, 2132-04 ####[facility] ([id number])[address], [address] [place] [address] CHOLESTEROL:HDL 3.6 Normal 1.0-5.0 [facility] Comment on above: Performed By: #### S PE, 65656-8, 2284-03, 2132-04 ####[facility] ([id number])[address], [address] [place] [address] Triglyceride [Mass/Vol] 87 mg/dL Normal 27-150 [facility] Comment on above: Performed By: #### S PE, 80210-1, 8, 2132-04 ####[facility] ([id number])[address] [address] [place] [address] MR BRAIN WO CONTon MR BRAIN WO [...] Aris Hui MD on 03/25/2024 9:49 AM [facility] MR Brain WO contraston 03-25 MRI BRAIN [...] Aris Hui MD on 03/25/2024 9:49 AM [facility] Aris Hui MD - 03/25/2024 MRI BRAIN [...] Aris Hui MD on 03/25/2024 9:49 AM [facility] Radiology Study observation (narrative) [facility] MR Brain WO contrastOrdered By: Aris Hui on 03-25-2024 [facility] Work Phone: SERUM PROTEIN ELECTROPHORESI Son 03-25-2024 Albumin [Mass/Vol] 3.2 g/dL Low 3.4-5.3 [facility] Comment on above: Performed By: #### S PE, 30770-2, 2284-03, 2132-04 ####[facility] ([id number])[address], [address] [place] [address] ALPHA 1 GLOBULIN 0.2 g/dL Normal 0.1-0.4 [facility] Comment on above: Performed By: #### S PE, 36944-7, 2284-03, 2132-04 ####[facility] ([id number])[address], [address] [place] [address] ALPHA 2 GLOBULIN 0.7 g/dL Normal 0.4-1.1 [facility] Comment on above: Performed By: #### S PE, 78759-0, 2284-03, 2132-04 ####[facility] ([id number])[address], [address] [place] [address] BETA GLOBULIN 0.6 g/dL Normal 0.5-1.2 [facility] Comment on above: Performed By: #### S PE, 67425-0, 2284-03, 2132-04 ####[facility] ([id number])[address], [address] [place] [address] GAMMA GLOBULIN 0.6 g/dL Normal 0.5-1.6 [facility] Comment on above: Performed By: #### S PE, 34535-6, 2284-03, 2132-04 ####[facility] ([id number])[address], [address] [address] PROT. ELECTROPHORESIS INTERP Unremarkable protein distribution, no monoclonal bands. Normal [facility] Comment on above: Performed By: #### S KELI, 74636-2, 2284-03, 2132-04 ####[facility] ([id number])[address], [address] [address] Protein [Mass/Vol] 5.4 g/dL Low 6.0-8.0 [facility] Comment on above: Performed By: #### S KELI, 34542-4, 2284-03, 2132-04 ####[facility] [facility] ([id number])[address], [address] [address] Thyroid profile includes TSH FT4on 03-25-2024 Free T4 [Mass/Vol] 0.98 ng/dL 0.61 - 1.60 ng/dL [facility] TSH Qn 4.62 m[IU]/L [facility] VITAMIN B12on 03-25-2024 Cobalamin (Vitamin B12) [Mass/Vol] 142 pg/mL Low 180-914 [facility] Comment on above: Performed By: #### S KELI, 77429-0, 2284-03, 2132-04 ####[facility] ([id number])[address] [address] Vitamin B12on 03-25-2024 Cobalamin (Vitamin B12) [Mass/Vol] 142 pg/mL Low 180 - 914 pg/mL [facility] APTTon 03-24-2024 aPTT Coag (PPP) [Time] 33 s [facility] Comment on above: NEW REFERENCE RANGE BASIC METABOLIC PANLon 03-24 Anion gap [Moles/Vol] 7 mmol/L Normal 5-15 [facility] Comment on above: Performed By: #### C BCA, BMP, PINR, 70010-3, 81574-3 #### [facility] ([id number]) [address] [place] [address] #### THYR, HA1C #### [facility] ([id number]) [address] [facility] [place] [address] Calcium [Mass/Vol] 10.1 mg/dL Normal 8.5-10.5 [facility] Comment on above: Performed By: #### C BCA, BMP, PINR, 19887-1, 98029-1 #### [facility] ([id number]) [address] [address] #### THYR, HA1C #### [facility] ([id number]) [address] [facility], [address] [place] [address] Chloride [Moles/Vol] 102 mmol/L Normal 98-109 [facility] Comment on above: Performed By: #### C BCA, BMP, PINR, 74496-6, 92663-7 #### [facility] ([id number]) [address] [address] #### THYR, HA1C #### [facility] ([id number]) [address] [facility], [address] [place] [address] CO2 [Moles/Vol] 25 mmol/L Normal 22-32 [facility] Comment on above: Performed By: #### C BCA, BMP, PINR, 95872-1, 44296-4 #### [facility] ([id number]) [address] [address] #### THYR, HA1C #### [facility] ([id number]) [address] [facility], [address] [place] [address] Creatinine [Mass/Vol] 0.86 mg/dL Normal 0.70-1.20 [facility] Comment on above: Result Comment: METH OD TRACEABLE TO IDMS STANDARD Performed By: #### C BCA, BMP, PINR, 60094-0, 94690-3 #### [facility] ([id number]) [address] [address] #### JOB MARTINEZ #### [facility] ([id number]) [address] [facility], [address] [place] [address] GFR/1.73 sq M.predicted among non-blacks MDRD (S/P/Bld) [Vol rate/Area] 88 mL/min/{1.73_m2} Normal >59 [facility] Comment on above: Result Comment: Reported eGFR is based on the CKD-EPI 2020 equation that does not use a race coefficient. Performed By: #### C ARBEN BMP, PINR, 47991-6, 67059-7 #### [facility] ([id number]) [address] [address] #### JOB MARTINEZ #### [facility] ([id number]) [address] [facility], [address] [place] [address] Glucose [Mass/Vol] 99 mg/dL Normal 65-99 [facility] Comment on above: Performed By: #### C ARBEN, BMP, PINR, 96997-5, 58030-4 #### [facility] ([id number]) [address] [address] #### JOB MARTINEZ #### [facility] ([id number]) [address] [facility], [address] [place] [address] Potassium [Moles/Vol] 3.8 mmol/L Normal 3.5-5.0 [facility] Comment on above: Performed By: #### C BCA, BMP, PINR, 55000-1, 50288-7 #### [facility] ([id number]) [address] [address] #### COLLIN MARTINEZ1C #### [facility] ([id number]) [address] [facility], [address] [place] [address] Sodium [Moles/Vol] 134 mmol/L Normal 134-146 [facility] Comment on above: Performed By: #### C BCA, BMP, PINR, 41838-8, 77879-1 #### [facility] ([id number]) [address] [place] [address] #### THYR, HA1C #### [facility] ([id number]) [address] [facility], [address] [place] [address] Urea nitrogen [Mass/Vol] 17 mg/dL Normal 5-27 [facility] Comment on above: Performed By: #### C BCA, BMP, PINR, 77807-2, 06384-7 #### [facility] ([id number]) [address] [place] [address] #### THYR, HA1C #### [facility] ([id number]) [address] [facility], [address] [place] [address] Basic Metabolic Panelon 08- Anion gap [Moles/Vol] 7 mmol/L 5 - 15 mmol/L [facility] Calcium [Mass/Vol] 10.1 mg/dL 8.5 - 10. 5 mg/dL [facility] Chloride [Moles/Vol] 102 mmol/L 98 - 10 9 mmol/L [facility] CO2 [Moles/Vol] 25 mmol/L 22 - 32 mmol/L [facility] Creatinine [Mass/Vol] 0.86 mg/dL 0.70 - 1.20 mg/dL [facility] Comment on above: METHOD TRACEABLE TO IDMS STANDARD eGFR (CKD-EPI)non-race dependent 88 - PINF [facility] Comment on above: Reported eGFR is based on the CKD-EPI 2020 equation that does not use a race coefficient. Glucose [Mass/Vol] 99 mg/dL 65 - 99 mg/dL [facility] Potassium [Moles/Vol] 3.8 mmol/L 3.5 - 5.0 mmol/L [facility] Sodium [Moles/Vol] 134 mmol/L 134 - 146 mmol/L [facility] Urea nitrogen [Mass/Vol] 17 mg/dL 5 - 27 mg/dL [facility] CBC AND AUTO DIFFon 03-24-20 24 ABSOLUTE BASOPHIL 0.0 X10E9/L Normal 0.0-0.2 [facility] Comment on above: Performed By: #### C BCA, BMP, PINR, 91596-6, 48686-6 #### [facility] ([id number]) [address] [address] #### JOB MARTINEZ #### [facility] ([id number]) [address] [facility], [address] [place] [address] ABSOLUTE NEUTROPHIL 3.8 X10E9/L Normal 1.5-6.6 [facility] Comment on above: Performed By: #### C BCA, BMP, PINR, 79559-4, 63219-1 #### [facility] ([id number]) [address] [address] #### JOB MARTINEZ #### [facility] ([id number]) [address], [address] [place] [address] Basophils/100 WBC (Bld) 0.6 % Normal [facility] Comment on above: Performed By: #### C BCA, BMP, PINR, 35995-7, 20113-4 #### [facility] ([id number]) [address] [address] #### THYMahesh HA1C #### [facility] ([id number]) [address], [address] [place] [address] Eosinophils (Bld) [#/Vol] 0.1 10*3/uL Normal 0.0-0.4 [facility] Comment on above: Performed By: #### C BCA, BMP, PINR, 50685-7, 97484-2 #### [facility] ([id number]) [address] [address] #### THYR, HA1C #### [facility] ([id number]) [address], [address] [place] [address] Eosinophils/100 WBC (Bld) 2.0 % Normal [facility] Comment on above: Performed By: #### C BCA, BMP, PINR, 68268-2, 87216-8 #### [facility] ([id number]) [address] [address] #### THYR, HA1C #### [facility] ([id number]) [address], [address] [place] [address] Erythrocyte distribution width (RBC) [Ratio] 17.5 % High 11.5-15.0 [facility] Comment on above: Performed By: #### C BCA, BMP, PINR, 86095-9, 23975-9 #### [facility] ([id number]) [address] [address] #### THYR, HA1C #### [facility] ([id number]) [address], [address] [place] [address] Hematocrit (Bld) [Volume fraction] 42.2 % Normal 39-49 [facility] Comment on above: Performed By: #### C BCA, BMP, PINR, 07790-7, 43316-1 #### [facility] ([id number]) [address] [address] #### THYR, HA1C #### [facility] ([id number]) [address], [address] [place] [address] Hemoglobin (Bld) [Mass/Vol] 13.9 g/dL Normal 13.0-17.0 [facility] Comment on above: Performed By: #### C BCA, BMP, PINR, 47051-9, 70061-2 #### [facility] ([id number]) [address] [address] #### THYR, HA1C #### [facility] ([id number]) [address] [facility] [place] [address] Lymphocytes (Bld) [#/Vol] 2.0 10*3/uL Normal 1.0-3.5 [facility] Comment on above: Performed By: #### C BCA, BMP, PINR, 68446-5, 36321-8 #### [facility] ([id number]) [address] [address] #### THYR, HA1C #### [facility] ([id number]) [address] [facility] [place] [address] Lymphocytes/100 WBC (Bld) 29.7 % Normal [facility] Comment on above: Performed By: #### C BCA, BMP, PINR, 77138-3, 32883-5 #### [facility] ([id number]) [address] [address] #### THYR, HA1C #### [facility] ([id number]) [address] [facility], [address] [place] [address] MCH (RBC) [Entitic mass] 27.8 pg Normal 27-34 [facility] Comment on above: Performed By: #### C BCA, BMP, PINR, 79214-9, 09837-7 #### [facility] ([id number]) [address] [address] #### THYR, HA1C #### [facility] ([id number]) [address] [facility], [address] [place] [address] MCHC (RBC) [Mass/Vol] 33.0 g/dL Normal 32-36 [facility] Comment on above: Performed By: #### C BCA, BMP, PINR, 23535-4, 55823-3 #### [facility] ([id number]) [address] [address] #### THYR, HA1C #### [facility] ([id number]) [address], [address] [place] [address] MCV (RBC) [Entitic vol] 84 fL Normal 80-100 [facility] Comment on above: Performed By: #### C BCA, BMP, PINR, 07703-9, 12096-5 #### [facility] ([id number]) [address] [address] #### THYR, HA1C #### [facility] ([id number]) [address], [address] [place] [address] Monocytes (Bld) [#/Vol] 0.6 10*3/uL Normal 0-0.9 [facility] Comment on above: Performed By: #### C BCA, BMP, PINR, 75257-7, 76964-5 #### [facility] ([id number]) [address] [address] #### THYR, HA1C #### [facility] ([id number]) [address], [address] [place] [address] Monocytes/100 WBC (Bld) 9.7 % Normal [facility] Comment on above: Performed By: #### C BCA, BMP, PINR, 51238-1, 01385-7 #### [facility] ([id number]) [address] [address] #### THYR, HA1C #### [facility] ([id number]) [address], [address] [place] [address] Neutrophils/100 WBC (Bld) 58.0 % Normal [facility] Comment on above: Performed By: #### C BCA, BMP, PINR, 39002-7, 22757-3 #### [facility] ([id number]) [address] [address] #### THYR, HA1C #### [facility] ([id number]) [address], [address] [place] [address] Platelet mean volume (Bld) [Entitic vol] 8.3 fL Normal 7-12 [facility] Comment on above: Performed By: #### C BCA, BMP, PINR, 36587-8, 58313-6 #### [facility] ([id number]) [address] [address] #### THYR, HA1C #### [facility] ([id number]) [address], [address] [place] [address] Platelets (Bld) [#/Vol] 263 10*3/uL Normal 150-450 [facility] Comment on above: Performed By: #### C BCA, BMP, PINR, 20458-6, 38900-9 #### [facility] ([id number]) [address] [address] #### THYR, HA1C #### [facility] ([id number]) [address], [address] [place] [address] RBC COUNT 5.01 X10E12/L Normal 4.10-5.70 [facility] Comment on above: Performed By: #### C BCA, BMP, PINR, 96091-8, 46816-4 #### [facility] ([id number]) [address] [address] #### THYR, HA1C #### [facility] ([id number]) [address] [facility] [place] [address] WBC (Bld) [#/Vol] 6.6 10*3/uL Normal 4.0-11.0 [facility] Comment on above: Performed By: #### C BCA, BMP, PINR, 29802-7, 91028-2 #### [facility] ([id number]) [address] [place] [address] #### THYR, HA1C #### [facility] ([id number]) [address] [facility], [address] [place] [address] CBC auto differentialon 03-14 Basophils (Bld) [#/Vol] 0.0 10*3/uL [facility] Basophils/100 WBC (Bld) 0.6 % [facility] Eosinophils (Bld) [#/Vol] 0.1 10*3/uL [facility] Eosinophils/100 WBC (Bld) 2.0 % [facility] Erythrocyte distribution width (RBC) [Ratio] 17.5 % High 11.5 - 15.0 % [facility] Hematocrit (Bld) [Volume fraction] 42.2 % 39 - 49 % [facility] Hemoglobin (Bld) [Mass/Vol] 13.9 g/dL 13.0 - 17.0 g/dL [facility] Interpretation and review of laboratory results Abnormal [facility] Lymphocytes (Bld) [#/Vol] 2.0 10*3/uL [facility] Lymphocytes/100 WBC (Bld) 29.7 % [facility] MCH (RBC) [Entitic mass] 27.8 pg 27 - 34 pg [facility] MCHC (RBC) [Mass/Vol] 33.0 g/dL 32 - 36 g/dL [facility] MCV (RBC) [Entitic vol] 84 fL 80 - 100 fL [facility] Monocytes (Bld) [#/Vol] 0.6 10*3/uL [facility] Monocytes/100 WBC (Bld) 9.7 % [facility] Neutrophils (Bld) [#/Vol] 3.8 10*3/uL [facility] Neutrophils/100 WBC (Bld) 58.0 % [facility] Platelet mean volume (Bld) [Entitic vol] 8.3 fL 7 - 12 fL [facility] Platelets (Bld) [#/Vol] 263 10*3/uL [facility] RBC (Bld) [#/Vol] 5.01 10*6/uL [facility] WBC corrected for nucl RBC Auto (Bld) [#/Vol] 6.6 [facility] CT BRAIN WO CONT STROKE ALER [...] Ward MD on 03/24/2024 1:47 PM Normal [facility] CT CTA CAROTIDon 03-24-[address] CTA CAROTID CLINICAL INFORMATION: Neuro deficit, acute, stroke suspected TECHNIQUE: CT angiogram performed following intravenous administration of nonionic intravenous contrast. Coronal and sagittal and 3-D volume rendered maximum intensity projection images generated and reviewed under concurrent physician supervision. Automated exposure control utilized. The [place] Symptomatic Carotid Endarterectomy Trial (NASCET) method for [...] Ward MD on 03/24/2024 2:19 PM Normal [facility] CT CTA HEADon 03-24-2024 CT CTA HEAD [...] Ward MD on 03/24/2024 2:03 PM Normal [facility] CT Headon 03-24-2024 CT BRAIN WO CONT [...] Graham Ward MD on 03/24/2024 1:47 PM [facility] Graham Ward MD - 03/24/2024 CT BRAIN [...] Vince Caldwell MD on 03/24/2024 1:31 PM Graham Coronado MD have personally reviewed the image(s) and agree with and/or edited the report Finalized by Graham Ward MD on 03/24/2024 1:47 PM [facility] Radiology Study observation (narrative) [facility] CT HeadOrdered By: Graham frederick on 03-24-2024 [facility] Work Phone: CTA Carotid artery W contras t Mac 03-24-2024 CLINICAL INFORMATION : Neuro deficit, acute, stroke suspected TECHNIQUE: CT angiogram performed following intravenous administration of nonionic intravenous contrast. Coronal and sagittal and 3-D volume rendered maximum intensity projection images generated and reviewed under concurrent physician supervision. Automated exposure control utilized. The [place] Symptomatic Carotid Endarterectomy Trial (NASCET) method for [...] Graham Ward MD on 03/24/2024 2:19 PM [facility] Graham Ward MD - 03/24/2024 CLINICAL INFORMATION: Neuro deficit, acute, stroke suspected TECHNIQUE: CT angiogram performed following intravenous administration of nonionic intravenous contrast. Coronal and sagittal and 3-D volume rendered maximum intensity projection images generated and reviewed under concurrent physician supervision. Automated exposure control utilized. The [place] Symptomatic Carotid Endarterectomy Trial (NASCET) method for [...] Graham Ward MD on 03/24/2024 2:19 PM [facility] CTA Head Arteries W contrast Mac 03-24-2024 [...] Graham Ward MD on 03/24/2024 2:03 PM [facility] EKG 12 leadon 03-24-2024 TRACEMASTERVUE [facility] Glucose Glucometer (BldC) [M ass/Vol]on 03-24-2024 Glucose [Mass/Vol] 121 mg/dL High 65 - 99 mg/dL [facility] Interpretation and review of laboratory results Abnormal [facility] Glucose [Mass/Vol] 121 mg/dL High 65-99 [facility] Glucose [Mass/Vol] 91 mg/dL 65 - 99 mg/dL [facility] Glucose [Mass/Vol] 91 mg/dL Normal 65-99 [facility] HGB A1C (GLYCO-HGB)on 2023 Glucose [Mass/Vol] 128 mg/dL Normal [facility] Comment on above: Performed By: #### C BCA, BMP, PINR, 21495-1, 21288-0 ####[facility] ([id number])[address] [place] [address] [place] [address]#### THYR, HA1C ####[facility] ([id number])[facility], [address] [place] [address] HbA1c (Bld) [Mass fraction] 6.1 % High 4.4-5.6 [facility] Comment on above: Result Comment: NOTE ADA Guidelines Result HgbA1c Normal : less than 5.7 % Prediabetes : 5.7 % to 6.4 % Diabetes : > 6.4 % Use with caution in patients with abnormal hemoglobin variants as the half-life of red blood cells and in vivo glycation rates are affected. Performed By: #### C BCA, BMP, PINR, 89040-6, 07918-8 ####[facility] ([id number])[address] [place] [address]#### THYR, HA1C ####[facility] ([id number])[address] [place] [address], [address] [place] [address] No Panel Informationon 03-24 [facility] Radiology Study observation (narrative) [facility] POCT Nursing Urine Macroscop ic UAon 03-24-2024 Bilirubin Ql (U) Negative Negative^N egative [facility] Glucose [Mass/Vol] Negative Negative^ N egative mg/dL [facility] Hemoglobin Ql (U) Trace Abnormal Negative^N egative [facility] Interpretation and review of laboratory results Abnormal [facility] Ketones (U) [Mass/Vol] Negative Negative^N egative mg/dL [facility] Leukocyte esterase Test strip Ql (U) Negative Negative^N egative [facility] Nitrite Ql (U) Negative Negative^N egative [facility] pH (U) 7.0 [pH] 5.0 - 8.5 [facility] Protein Ql (U) Negative Negative^N egative mg/dL [facility] Specific gravity (U) [Rel density] 1.015 1.003 - 1.035 [facility] Urobilinogen Qn (U) 0.2 NINF [facility] named [facility] PROTIME AND INRon 03-24-2024 INR Coag (PPP) [Relative time] 0.9 {INR} Normal 0.8-1.1 [facility] Comment on above: Performed By: #### C BCA, BMP, PINR, 48338-0, 16281-4 #### [facility] ([id number]) [address] [address] #### THYR, HA1C #### [facility] ([id number]) [address] [place] [address], [address] [place] [address] PT Coag (PPP) [Time] 10.3 s Normal 9.8-13.2 [facility] Comment on above: Result Comment: NEW REFERENCE RANGE Performed By: #### C BCA, BMP, PINR, 16129-0, 78830-9 #### [facility] ([id number]) [address] [address] #### THYR, HA1C #### [facility] ([id number]) [address] [facility], [address] [place] [address] Protime & INRon 03-24-2024 INR Coag (PPP) [Relative time] 0.9 {INR} [facility] PT Coag (PPP) [Time] 10.3 s [facility] Comment on above: NEW REFERENCE RANGE THYROID PROFILEon 03-24-2024 Free T4 [Mass/Vol] 0.98 ng/dL Normal 0.61-1.60 [facility] Comment on above: Performed By: #### C BCA, BMP, PINR, 82053-5, 37894-9 #### [facility] ([id number]) [address] [address] #### THYR, HA1C #### [facility] ([id number]) [address] [place] [address], [address] [place] [address] TSH 4.62 uIU/mL Normal 0.49-4.67 [facility] Comment on above: Performed By: #### C BCA, BMP, PINR, 13136-7, 89292-7 #### [facility] ([id number]) [address] [address] #### THYCOLLIN Aragon1C #### [facility] ([id number]) [address] [place] [address], [address] [place] [address] Troponin I, High Sensitivity on 03-24-2024 Troponin I.cardiac High sensitivity method [Mass/Vol] 6 ng/L NINF - 21 ng/L [facility] Troponin I, High Sensitivity 1 Houron 03-24-2024 Troponin I.cardiac High sensitivity method [Mass/Vol] 6 ng/L [facility]L [facility] Troponin I.cardiac High sens itivity method [Mass/Vol]on 03-24-2024 [facility] 1 HOUR TROP I, HIGH SENSITIVITY 6 ng/L Normal <21 [facility] Comment on above: Performed By: #### 8 9579-7 ####[facility] ([id number])[address] [place] [address] TROPONIN I, HIGH SENSITIVITY 6 ng/L Normal <21 [facility] Comment on above: Performed By: #### C BCA, BMP, PINR, 93443-4, 14709-0 #### [facility] ([id number]) [address] [address] #### COLLIN MARTINEZ1C #### [facility] ([id number]) [address] [place] [address], [address] [place] [address] URN MACROSCOPIC NURon 2023 BILIRUBIN RODNEY Negative Normal NEG [facility] Comment on above: Performed By: #### N UM ####[facility] ([id number])[address] [place] [address], [place] [address] BLOOD/HGB RODNEY Trace Abnormal NEG [facility] Comment on above: Performed By: #### N UM ####[facility] ([id number])[address] [place] [address], [place] [address] GLUCOSE RODNEY Negative Normal NEG [facility] Comment on above: Performed By: #### N UM ####[facility] ([id number])77 [place] [address], [place] [address] KETONES RODNEY Negative Normal NEG [facility] Comment on above: Performed By: #### N UM ####[facility] ([id number])[address] [place] [address], [place] [address] LEUKOCYTE ESTERASE RODNEY Negative Normal NEG [facility] Comment on above: Performed By: #### N UM ####[facility] ([id number])[address] [place] [address], [place] [address] NITRITE RODNEY Negative Normal NEG [facility] Comment on above: Performed By: #### N UM ####[facility] ([id number])[address] [place] [address], [place] [address] PH RODNEY 7.0 Normal 5.0-8.5 [facility] Comment on above: Performed By: #### N UM ####[facility] ([id number])[address] [place] [address], [place] [address] PROTEIN RODNEY Negative Normal NEG [facility] Comment on above: Performed By: #### N UM ####[facility] ([id number])[address] [place] [address], [place] [address] SPECIFIC GRAVITY RODNEY 1.015 Normal 1.003-1 .03 5 [facility] Comment on above: Performed By: #### N UM ####[facility] ([id number])[address] [place] [address], [place] [address] UROBILINOGEN RODNEY 0.2 eu/dL Normal <1.1 [facility] Comment on above: Performed By: #### N UM ####[facility] ([id number])[address] [place] [address] XR Chest Single viewon 03-24 Francisco Perdomo MD - 03/24/2024 Procedure: Chest x-ray performed Number of views:1 History:Shortness of breath COPD stroke alert Comparison:01/16/2023 Findings: The heart and lungs show no acute findings, and the mediastinum and julio are grossly negative . Impression: 1. No acute change. Finalized by Francisco Perdomo MD on 03/24/2024 2:33 PM [facility] Radiology Study observation (narrative) [employer] XR Chest Single viewOrdered By: Francisco Perdomo on 03-24-2024 [employer] Work Phone: aPTT Coag (PPP) [Time]on aPTT Coag (Bld) [Time] 33 s Normal 26-37 [facility] Comment on above: Result Comment: NEW REFERENCE RANGE Performed By: #### C BCA, BMP, PINR, 89437-8, [id number] #### [facility] ([id number]) [address] [place] [address] #### THYR, HA1C #### [facility] ([id number]) [address] [place] [address] CNOVon 02-23-2024 [facility] ----- TYLER TORRES ([id number]) 1945 M Date Time Provider Department 02/23/24 2:00 PM [facility] During your visit today, we recorded the following information about you: Hung Jacobsen MD 02/23/2024 5:26 PM Signed SHOULDER/ELBOW ESTABLISHED VISIT SERVICE DATE: 02/23/2024 PCP: Armando Richards MD CHIEF COMPLAINT: Bilateral shoulder follow-up SUBJECTIVE HISTORY OF PRESENT ILLNESS: 79 year old male R side is a 5, L side is a 8, last seen in November, 2-08/15 months was how long the injections lasted. [...] R glenohumeral Informed Consent Consent Obtained: Verbal [place] Protocol A moment to CARE was completed. [...] L glenohumeral Informed Consent Consent Obtained: Verbal [place] Protocol A moment to CARE was completed. [...] procedure. Relevant (more content not included)... Normal [facility] Large Joint Arthro/Inj: L gl corettan 02-23-2024 Hung Jacobsen MD 5:26 PM Large Joint Arthro/Inj: L glenohumeral Informed Consent Consent Obtained: Verbal [place] Protocol A moment to CARE was completed. [...] Patient had good pain relief after injection. [facility] Large Joint Arthro/Inj: R gl enohdcn 02-23-2024 Hung Jacobsen MD 5:26 PM Large Joint Arthro/Inj: R glenohumeral Informed Consent Consent Obtained: Verbal [place] Protocol A moment to CARE was completed. [...] Patient had good pain relief after injection. [facility] CNOVon 02-20-2024 CNOV Office Visit ([facility] ) ----- TYLER TORRES ([id number]) 1945 M Date Time Provider Department 02/20/24 3:15 PM Mahesh SMALL [facility] During your visit today, we recorded the following information about you: Mahesh Small MD 02/20/2024 3:29 PM Signed [facility] Clinic Note [S] Doing ok. Quad [...] fusion [M96.0] Order(s):XR SCOLIOSIS PA STAND/LAT 2V [[id number]] Order #: [id number] FUTURE Prescriptions as of 02/20/2024 - esomeprazole [...] Status:Closed by Mahesh SMALL on 02/20/24 Normal [facility] RAD - Ultrasound Reporton RAD - Ultrasound Report [id number]#1.00TIFF Normal [facility] Screenson 12-27-2023 Screens [id number]#1.00TIFF Normal [facility] Ambulatory Visit Summaryon 0 12-26-2023 Ambulatory Visit Summary TYLER TORRES :1945 Visit Date:12/26/2023 Ambulatory Visit Instructions Your Diagnosis Kidney stones BPH with obstruction/lower urinary tract symptoms Your Care Team Attending Physician - BRANT Mireles APRN, Beatrice Jordan Primary Care Physician - SUSIE METZ, ARMANDO Preciado This Is Your Medications List Contact prescribing [...] Olu Sosa MD Where: [facility] Susie Villavicencio [facility] Patient Educationon 12-26-19 24 Patient Education Nephrology Dietary Guidelines to Help [...] ? 8 oz (237 mL) of milk, xxshbim-zemrstiinisp-aruf y milk, and calcium-fortifiedfruit juice. Calcium-fortified means [...] Spinach (cooked), rhubarb, beets, sweet potatoes, and Omani chard. ? Peanuts. ? Potato chips, uzbek fries, and baked potatoes with skin on. ? Nuts and nut products. ? Chocolate. ? If you regularly take a diuretic medicine, make sure to eat at least 1 or 2 servings of fruits or vegetables that are high in potassium each day. These include: ? Avocado. ? Banana. ? [place], prune, carrot, or tomato juice. ? Baked [...] fish oil, or vitamin B6. ? Take myad-bdo-mqrbzrg and prescription medicines only as told by your health care provider. These include supplements. What foods sh (more content not included)... Normal [facility]2023 [facility] [id number]#[id number] [facility] Urology Office/Clinic Noteon 12-26-2023 Urology Office/Clinic Note [...] with voice recognition artificial intelligence software, specifically Vaccibody, MoneyMan and or Occipital. Substitutions may have occurred due to the [...] Urnls Dip Stick Auto w/o Microscopy POC 77054 US Renal XR Abdomen 1 View 3. BPH with obstruction/lower urinary tract symptoms (N40.1: Benign prostatic hyperplasia with lower urinary tract symptoms) (more content not included)... Normal [facility] Comment on above: Result Comment: Elec tronically Signed By: BRANT Mireles APRN, [place] X\.jordan\Date and Time Signed: 12/26/23 13:42 EDT RAD - Ultrasound Reporton RAD - Ultrasound Report [id number]#1.00TIFF Normal [facility] Lab Reportson 12-14-2023 Lab Reports [id number]#1.00TIFF Normal [facility] RAD - CT Reporton 12-14-2023 RAD - CT Report [id number]#1.00TIFF Normal [facility] ED Note-Physicianon 12-13-19 ED Note-Physician [id number]#1.00TIFF Normal [facility] CBC auto differentialon 11-12 Basophils (Bld) [#/Vol] 0.1 10*3/uL [facility] Basophils/100 WBC (Bld) 0.8 % [facility] Eosinophils (Bld) [#/Vol] 0.1 10*3/uL [facility] Eosinophils/100 WBC (Bld) 2.0 % [facility] Erythrocyte distribution width (RBC) [Ratio] 15.6 % High 11.5 - 15.0 % [facility] Hematocrit (Bld) [Volume fraction] 38.8 % Low 39 - 49 % [facility] Hemoglobin (Bld) [Mass/Vol] 12.3 g/dL Low 13.0 - 17.0 g/dL [facility] Interpretation and review of laboratory results Abnormal [facility] Lymphocytes (Bld) [#/Vol] 2.1 10*3/uL [facility] Lymphocytes/100 WBC (Bld) 29.5 % [facility] MCH (RBC) [Entitic mass] 25.9 pg Low 27 - 34 pg [facility] MCHC (RBC) [Mass/Vol] 31.8 g/dL Low 32 - 36 g/dL [facility] MCV (RBC) [Entitic vol] 82 fL 80 - 100 fL [facility] Monocytes (Bld) [#/Vol] 0.5 10*3/uL [facility] Monocytes/100 WBC (Bld) 7.6 % [facility] Neutrophils (Bld) [#/Vol] 4.2 10*3/uL [facility] Neutrophils/100 WBC (Bld) 60.1 % [facility] Platelet mean volume (Bld) [Entitic vol] 8.1 fL 7 - 12 fL [facility] Platelets (Bld) [#/Vol] 258 10*3/uL [facility] RBC (Bld) [#/Vol] 4.77 10*6/uL [facility] WBC corrected for nucl RBC Auto (Bld) [#/Vol] 7.0 [facility] Comprehensive metabolic pane portia 11-27-2023 Albumin [Mass/Vol] 3.8 g/dL 3.2 - 5.3 g/dL [facility] ALP [Catalytic activity/Vol] 68 U/L 39 - 130 U/L [facility] ALT No additional P-5'-P [Catalytic activity/Vol] 13 U/L 0 - 40 U/L [facility] Anion gap [Moles/Vol] 7 mmol/L 5 - 15 mmol/L [facility] AST [Catalytic activity/Vol] 11 U/L 0 - 41 U/L [facility] Bilirubin [Mass/Vol] 0.4 mg/dL 0.3 - 1 .2 mg/dL [facility] Calcium [Mass/Vol] 10.1 mg/dL 8.5 - 10. 5 mg/dL [facility] Chloride [Moles/Vol] 103 mmol/L 98 - 10 9 mmol/L [facility] CO2 [Moles/Vol] 29 mmol/L 22 - 32 mmol/L [facility] Creatinine [Mass/Vol] 0.96 mg/dL 0.60 - 1.30 mg/dL [facility] Comment on above: METHOD TRACEABLE TO BACKUS HOSPITAL STANDARD eGFR (CKD-EPI)non-race dependent 80 - PINF [facility] Comment on above: Reported eGFR is based on the CKD-EPI 2020 equation that does not use a race coefficient. Glucose [Mass/Vol] 118 mg/dL High 65 - 99 mg/dL [facility] Interpretation and review of laboratory results Abnormal [facility] Potassium [Moles/Vol] 4.2 mmol/L 3.5 - 5.0 mmol/L [facility] Protein [Mass/Vol] 6.6 g/dL 6.0 - 8.0 g/dL [facility] Sodium [Moles/Vol] 139 mmol/L 134 - 146 mmol/L [facility] Urea nitrogen [Mass/Vol] 11 mg/dL 5 - 27 mg/dL [facility] Hemoglobin A1con 11-27-2023 Average glucose Estimated from glycated hemoglobin (Bld) [Mass/Vol] 140 mg/dL [facility] HbA1c (Bld) [Mass fraction] 6.5 % High 4.4 - 5.6 % [facility] Comment on above: NOTE ADA Guidelines Result HgbA1c Normal : less than 5.7 % Prediabetes : 5.7 % to 6.4 % Diabetes : > 6.4 % Use with caution in patients with abnormal hemoglobin variants as the half-life of red blood cells and in vivo glycation rates are affected. Interpretation and review of laboratory results Abnormal [facility] Thyroid profile includes TSH FT4on 11-27-2023 Free T4 [Mass/Vol] 0.90 ng/dL 0.61 - 1.60 ng/dL [facility] TSH Qn 3.58 m[IU]/L [facility] No Panel Informationon 11-16 [facility] XR Thoracic and lumbar spine Views for scoliosis W standingon 10-10-2023 [facility] Basic metabolic 2000 panelon 07-31-2023 Anion gap [Moles/Vol] 8 mmol/L Low 9 - 18 mmol/L [facility] Calcium [Mass/Vol] 10.4 mg/dL High 8.5 - 10. 2 mg/dL [facility] Chloride [Moles/Vol] 103 mmol/L 97 - 10 5 mmol/L [facility] CO2 [Moles/Vol] 30 mmol/L 22 - 30 mmol/L [facility] Creatinine [Mass/Vol] 0.92 mg/dL 0.73 - 1.22 mg/dL [facility] Estimated Glomerular Filtration Rate 85 mL/min/1.73m >=60 mL/min/1.7 3m [facility] Glucose [Mass/Vol] 97 mg/dL 74 - 99 mg/dL [facility] Potassium [Moles/Vol] 4.1 mmol/L 3.7 - 5.1 mmol/L [facility] Sodium [Moles/Vol] 141 mmol/L 136 - 144 mmol/L [facility] Urea nitrogen [Mass/Vol] 12 mg/dL 9 - 24 mg/dL [facility] CBC panel Auto (Bld)on 07-31 Erythrocyte distribution width (RBC) [Ratio] 13.0 % 11.5 - 15.0 % [facility] Hematocrit (Bld) [Volume fraction] 44.7 % 39.0 - 51.0 % [facility] Hemoglobin (Bld) [Mass/Vol] 14.3 g/dL 13.0 - 17.0 g/dL [facility] MCH (RBC) [Entitic mass] 29.3 pg 26.0 - 34.0 pg [facility] MCHC (RBC) [Mass/Vol] 32.0 g/dL 30.5 - 36.0 g/dL [facility] MCV (RBC) [Entitic vol] 91.6 fL 80.0 - 100.0 fL [facility] Nucleated RBC (Bld) [#/Vol] <0.01 k/uL [facility] Platelet mean volume (Bld) [Entitic vol] 9.7 fL 9.0 - 12.7 fL [facility] Platelets (Bld) [#/Vol] 255 10*3/uL 150 - 400 k/uL [facility] RBC (Bld) [#/Vol] 4.88 10*6/uL 4.20 - 6.00 m/uL [facility] WBC (Bld) [#/Vol] 6.93 10*3/uL 3.70 - 11.00 k/uL [facility] ECG COMPLETEon 12-18-2023 Atrial Rate 86 BPM [facility] Calculated P Letha 27 degrees [facility] Calculated R Letha -31 degrees [facility] Calculated T Letha 38 degrees [facility] P-R Interval 178 ms [facility] QRS Duration 88 ms [facility] QT Interval 358 ms [facility] QTC Calculation (Bazett) 428 ms [facility] Ventricular Rate 86 BPM [facility] - Blood bankon ABO group Nom (Bld) A [facility] Rh Nom (Bld) Positive [facility] TYPE AND SCREEN,30 DAYon Blood group antibody screen Ql Negative [facility] HIstorical Ab Scr Status Negative [facility] Glucose Glucometer (dC) [M ass/Vol]Ordered By: Cortes Abarca on 05-04-2023 Glucose [Mass/Vol] 101 mg/dL [facility] Comment on above: Random Glucose Refer ence Range is dependent on time and content of last meal. Glucose of more than 200 mg/dL in a nonstressed, ambulatory subject supports the diagnosis of Diabetes Mellitus. CNOVon 03-08-2023 CNOV Office Visit ([facility] ) ----- TYLER TORRES ([id number]) 02/06/1967 M Date Time Provider Department 03/08/23 3:40 PM HUNG HARDY [facility] During your visit today, we recorded the following information about you: Hung Hardy DO 03/08/2023 3:59 PM Signed [facility] Office Visit Documentation Note [facility] Sports Medicine Orthopaedic and Rheumatologic [place] HISTORY OF PRESENT ILLNESS (HPI) CHIEF COMPLAINT / REASON FOR VISIT SERVICE DATE: March 08, 2023 PCP: No primary care provider on file. Tyler Torres is here today at request of Dr. Hugn Jacobsen specifically for consultation of my opinion in regards to the chief complaint listed below. Correspondence will be shared today via the [employer] electronic health record or through regular mail, [...] results and radiologist's interpretation, available in the [facility] health record. Images were reviewed with the patient/family members in the office today. My personal interpretation of the performed imaging is chronic degenerative changes. 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 Cardiology Consultant: WERO Transcribe Date/Time: Dec 26 2022 8:26A Dictated by : ANSHUL CHAIREZ MD... ASSESSMENT / PLAN CLINICAL IMPRESSION / ASSESSMENT: CLINICAL IMPRESSION / ASSESSMENT: (M19.011) Glenohumeral arthritis, right (primary encounter diagnosis) (M25.611) Decreased range of motion of right shoulder (M25.511, G89.29) Chronic right shoulder pain RECOMMENDATION / PLAN: Severe OA. Here today from [facility]. Discussed CSI vs OA brisement. OK for CSI high volume today Follow up: 4 months, if relief from CSI Films prior to visit: Written instructions (see patient instructions) and verbal health education given to patient. Patient verbalizes understanding and agrees with the treatment plan. Hung Hardy D.O. [facility] Orthopaedic and Rheumatologic [employer] Auditor, [facility] [employer] Program Team Physician, [facility] [employer] Consulting Physician, [place] Marya Bartlett, Safety Director [phone] Glenohumeral arthritis, right (primary encounter diagnosis) Decreased range of motion of right shoulder Chronic right shoulder pain Large Joint Arthro/Inj: R shoulder joint Informed Consent Consent Obtained: Verbal [place] Protocol A moment to CARE was completed. SIGN IN Personnel directly involved with the procedure wore the appropriate PPE. Patient/Surrogate Stated/Verified: Patient name, Date of , Relevant allergies and Intended procedure TIME OUT Intended patient and procedure match the source document(s). Consent documented and matches the intended procedure. Relevan (more content not included)... Normal [facility] Glucose Glucometer (BldC) [M ass/Vol]Ordered By: Cortes Abarca on 02-02-2023 Glucose [Mass/Vol] 89 mg/dL [facility] Comment on above: Random Glucose Refer ence Range is dependent on time and content of last meal. Glucose of more than 200 mg/dL in a nonstressed, ambulatory subject supports the diagnosis of Diabetes Mellitus. US KIDNEYSon 01-10-2023 US KIDNEYS EXAMINATION: US TJ EYS HISTORY: Kidney stone COMPARISON: No relevant comparison [...] GRAHAM WHYTE Date: 2023-01-10 12:08 Normal [facility] XR KUB 1 VIEWon 01-10-2023 XR KUB [...] GRAHAM WHYTE Date: 2023-01-10 14:10 Normal [facility] CT LUMBAR SPINE WO IVCONon 0 12-23-2022 [facility] XR SHOULDER GENERAL 3V OR MO RE AP/TRUE AP/OTHER RIGHTon 12-23-2022 [facility] XR LUMBAR LIMITED 2V AP/LATo n 12-13-2022 [facility] Glucose Glucometer (BldC) [M ass/Vol]Ordered By: Cortes Abarca on 11-07-2022 Glucose [Mass/Vol] 77 mg/dL [facility] Comment on above: Random Glucose Refer ence Range is dependent on time and content of last meal. Glucose of more than 200 mg/dL in a nonstressed, ambulatory subject supports the diagnosis of Diabetes Mellitus. XR shoulder RT min 2V*on XR shoulder RT min 2V* [facility] [employer] Other XR shoulder RT min 2V* [facility] [employer] Other XR shoulder RT min 2V* [address] [employer] Other XR shoulder RT min 2V* CLAUS Montano [address] [employer] Other XR shoulder RT min 2V* XRay Report [employer] Other XR shoulder RT min 2V* Signed [employer] Other XR shoulder RT min 2V* Patient: Tyler Torres MR#: [id number] [employer] Other XR shoulder RT min 2V* : 1945 Acct:[id number] [employer] Other XR shoulder RT min 2V* Age/Sex: 77 / M ADM Date: 08/10/22 [employer] Other XR shoulder RT min 2V* Loc: XD Room: Type: [facility] [employer] Other XR shoulder RT min 2V* Attending Dr: Temi Dean NP [employer] Other XR shoulder RT min 2V* Copies to: Temi Dean NP [employer] Other XR shoulder RT min 2V* Ordering Provider: Temi Dean NP [employer] Other XR shoulder RT min 2V* Date of Service: 08/10/22 [employer] Other XR shoulder RT min 2V* XR/XR shoulder RT min 2V*: Right anterior shoulder pain [employer] Other XR shoulder RT min 2V* 3 views plain filmright shoulder [employer] Other XR shoulder RT min 2V* HISTORY:Right shoulder pain [employer] Other XR shoulder RT min 2V* COMPARISON:None [employer] Other XR shoulder RT min 2V* No fracture, dislocation or soft tissue abnormality identified.Fofn-ie-ndth contact degenerative [employer] Other XR shoulder RT min 2V* changes of the glenohumeral joint with inferior marginal spurring present. Mild acromioclavicular [employer] Other XR shoulder RT min 2V* spurring. [employer] Other XR shoulder RT min 2V* XR/XR shoulder RT min 2V* [employer] Other XR shoulder RT min 2V* IMPRESSION:Extensive glenohumeral degeneration. [employer] Other XR shoulder RT min 2V* Impression dictated by: Rosalino Orona M.D.08/10/2022 4:25 PM [employer] Other XR shoulder RT min 2V* Dictation Location: [place] [address] [employer] Other XR shoulder RT min 2V* Transcribed By: [facility] 08/10/22 [facility] [employer] Other XR shoulder RT min 2V* Dictated By: Rosalino Orona DO 08/10/22 [facility] [employer] Other XR shoulder RT min 2V* Signed By: [employer] Other XR shoulder RT min 2V* 08/10/22 [facility] [employer] Other XR KUB 1 VIEWon 07-04-2022 XR [...] GRAHAM WHYTE Date: 2022-07-04 19:45 Normal [facility] XR LUMBAR LIMITED 2V AP/LATo n 05-24-2022 [facility] POINT OF CARE GLUCOSEon 10-0 Glucose [Mass/Vol] 96 mg/dL Normal 74-106 [facility] Comment on above: Performed By: #### P OCGLUC #### [facility] [address] [place] [address] Dr. Ilan Steiner XR KUB 1 VIEWon [...] EDELMIRA ARANGO Date: 2022-05-18 12:00 Normal [facility] CBC AUTO DIFFon 05-16-2022 BASO # 0.1 103/ul Normal 0.0-0.1 [facility] Comment on above: Performed By: #### C BC #### [facility] [address] [place] [address] Dr. Ilan Steiner Basophils/100 WBC (Bld) 0.8 % Normal 0.2-2.0 [facility] Comment on above: Performed By: #### C BC #### [facility] [address] [address] [address] Ilan Steiner EO # 0.2 103/ul Normal 0.0-0.7 [facility] Comment on above: Performed By: #### C BC #### [facility] [address] [address] [address] Ilan Steiner Eosinophils/100 WBC (Bld) 3.5 % Normal 0.9-7.0 [facility] Comment on above: Performed By: #### C BC #### [facility] [address] [place] [address] Dr. Ilan Steiner Erythrocyte distribution width (RBC) [Ratio] 13.2 % Normal 11.0-15.0 [facility] Comment on above: Performed By: #### C BC #### [facility] [address] [place] [address] Dr. Ilan Steiner Hematocrit (Bld) [Volume fraction] 39.7 % Critically low 42.0-54.0 [facility] Comment on above: Performed By: #### C BC #### [facility] [address] [place] [address] Dr. Ilan Steiner Hemoglobin (Bld) [Mass/Vol] 13.1 g/dL Critically low 14.0-18.0 [facility] Comment on above: Performed By: #### C BC #### [facility] [address] [place] [address] Dr. Ilan Steiner IG # 0.01 10e3/ul Normal 0.00-0.03 [facility] Comment on above: Performed By: #### C BC #### [facility] [address] [place] [address] Dr. Ilan Steiner IG % 0.2 % Normal 0.0-0.5 [facility] Comment on above: Performed By: #### C BC #### [facility] [address] [place] [address] Dr. Ilan Steiner LYMPH # 1.8 103/ul Normal 1.2-3.8 [facility] Comment on above: Performed By: #### C BC #### [facility] [address] [place] [address] Dr. Ilan Steiner Lymphocytes/100 WBC (Bld) 29.7 % Normal 20.5-60.0 [facility] Comment on above: Performed By: #### C BC #### [facility] [address] [place] [address] Dr. Ilan Steiner MANUAL DIFF REQ NO Normal [facility] Comment on above: Performed By: #### C BC #### [facility] [address] [address] [address] Ilan Steiner MCH (RBC) [Entitic mass] 30.3 pg Normal 25.9-34.0 [facility] Comment on above: Performed By: #### C BC #### [facility] [address] [address] [address] Ilan Steiner MCHC (RBC) [Mass/Vol] 33.0 g/dL Normal 29.9-35.2 [facility] Comment on above: Performed By: #### C BC #### [facility] [address] [address] [address] Ilan Steiner MCV (RBC) [Entitic vol] 91.7 fL Normal 80.0-94.0 [facility] Comment on above: Performed By: #### C BC #### [facility] [address] [place] [address] Dr. Ilan Steiner MONO # 0.6 103/ul Normal 0.3-0.8 [facility] Comment on above: Performed By: #### C BC #### [facility] [address] [place] [address] Dr. Ilan Steiner Monocytes/100 WBC (Bld) 9.9 % Normal 1.7-12.0 [facility] Comment on above: Performed By: #### C BC #### [facility] [address] [address] [address] Ilan Steiner NEUT # 3.4 103/ul Normal 1.4-6.5 [facility] Comment on above: Performed By: #### C BC #### [facility] [address] [place] [address] Dr. Ilan Steiner Neutrophils/100 WBC (Bld) 55.9 % Normal 43.0-75.0 [facility] Comment on above: Performed By: #### C BC #### [facility] [address] [place] [address] Dr. Ilan Steiner Platelet mean volume (Bld) [Entitic vol] 9.4 fL Critically low 9.5-13.5 [facility] Comment on above: Performed By: #### C BC #### [facility] [address] [address] [address] Ilan Steiner PLT 220 103/ul Normal 150-450 [facility] Comment on above: Performed By: #### C BC #### [facility] [address] [address] [address] Ilan Steiner RBC 4.33 106/ul Critically low 4.70-6.10 [facility] Comment on above: Performed By: #### C BC #### [facility] [address] [address] [address] Ilan Steiner WBC 6.1 103/ul Normal 4.0-11.0 [facility] Comment on above: Performed By: #### C BC #### [facility] [address] [place] [address] Dr. Ilan Steiner Covid-19 PCR (CVDTB)on SARS-CoV-2 (COVID-19) RNA ANGELO+probe Ql (Unsp spec) Not detected Normal NOT DETECTED [facility] Comment on above: Result Comment: This test is not yet approved or cleared by the [place] FDA. When there are no FDA-approved or cleared tests available, and other criteria are met, FDA can make tests available under an emergency access mechanism called an Emergency Use Authorization (EUA). The EUA for this test is supported by the [employer] of Health and Human Service's (HHS's) declaration [...] SARS-CoV-2. Performed By: #### C VDTBH #### [facility] [address] [place] [address] Dr. Ilan Steiner PROF CHEM 8 (BAS METB)on Anion gap [Moles/Vol] 8.2 mmol/L Normal [facility] Comment on above: Performed By: #### C VDTBH #### [facility] [address] [address] [address] Ilan Steiner Calcium [Mass/Vol] 10.1 mg/dL Normal 8.5-10.1 [facility] Comment on above: Performed By: #### C VDTBH #### [facility] [address] [place] [address] Dr. Ilan Steiner Chloride [Moles/Vol] 105 mmol/L Normal 98-107 [facility] Comment on above: Performed By: #### C VDTBH #### [facility] [address] [place] [address] Dr. Ilan Steiner CO2 [Moles/Vol] 29.8 mmol/L Normal 21.0-32.0 [facility] Comment on above: Performed By: #### C VDTBH #### [facility] [address] [place] [address] Dr. Ilan Steiner Creatinine [Mass/Vol] 0.93 mg/dL Normal 0.70-1.30 [facility] Comment on above: Performed By: #### C VDTBH #### [facility] [address] [place] [address] Dr. Ilan Steiner EGFR-AF LITHUANIAN >60 Normal >=60 [facility] Comment on above: Performed By: #### C VDTBH #### [facility] [address] [place] [address] Dr. Ilan Steiner EGFR-NON AF LITHUANIAN >60 Normal >=60 [facility] Comment on above: Performed By: #### C VDTBH #### [facility] [address] [place] [address] Dr. Ilan Steiner Glucose [Mass/Vol] 105 mg/dL Normal 74-106 [facility] Comment on above: Performed By: #### C VDTBH #### [facility] [address] [place] [address] Dr. Ilan Steiner Potassium [Moles/Vol] 4.0 mmol/L Normal 3.5-5.1 [facility] Comment on above: Performed By: #### C VDTBH #### [facility] [address] [place] [address] Dr. Ilan Steiner Sodium [Moles/Vol] 139 mmol/L Normal 136-145 [facility] Comment on above: Performed By: #### C VDTBH #### [facility] [address] [place] [address] Dr. Ilan Steiner Urea nitrogen [Mass/Vol] 12.0 mg/dL Normal 7.0-18.0 [facility] Comment on above: Performed By: #### C VDTBH #### [facility] [address] [place] [address] Dr. Ilan Steiner Urea nitrogen/Creatinine [Mass ratio] 12.9 mg/mg Normal [facility] Comment on above: Performed By: #### C VDTBH #### [facility] [address] [place] [address] Dr. Ilan Steiner PROTIMEon 05-16-2022 INR Coag (PPP) [Relative time] 0.95 {INR} Normal [facility] Comment on above: Performed By: #### C VDTBH #### [facility] [address] [place] [address] Dr. Ilan Steiner INR GUIDELINES SEE BELOW Normal [facility] Comment on above: Result Comment: ALLISON RED INR: 2.0 - 3.0 CONDITIONS NOT LISTED BELOW 2.5 - 3.5 FOR PROSTHETIC HEART VALVE REPLACEMENT 2.5 - 3.5 RECURRENT THROMBOSIS Performed By: #### C VDTBH #### [facility] [address] [place] [address] Dr. Ilan Steiner PT Coag (PPP) [Time] 10.3 s Normal 9.0-11.6 [facility] Comment on above: Performed By: #### C VDTBH #### [facility] [address] [place] [address] Dr. Ilan Steiner PTTon 05-16-2022 aPTT Coag (Bld) [Time] 28.2 s Normal 22.3-36.2 [facility] Comment on above: Performed By: #### C [facility] #### [facility] [address] [place] [address] ABD/PELVIS WO CONon [...] by: EDELMIRA ARANGO Date: 2022-04-12 11:19 Normal [facility] XR KUB 1 VIEWon 04-12-2022 XR KUB [...] by: EDELMIRA ARANGO Date: 2022-04-12 11:21 Normal [facility] Creatinine and Glomerular fi ltration rate.predicted panel (S/P/Bld)Ordered By: Sharda Brown on 03-03-2022 Creatinine [Mass/Vol] 0.83 mg/dL 0.64-1.27 [facility] Estimated glomerular filtrat ion rate (GFR) non- AmericanOrdered By: Sharda Brown on 03-03-2022 GFR/1.73 sq M.predicted among non-blacks MDRD (S/P/Bld) [Vol rate/Area] > 60 mL/Min [facility] No Panel InformationOrdered By: Sharda Brown on 03-03-2022 Estimated GFR () > 60 mL/Min [facility] Comment on above: GFR estimated refere nce range: According to KDOQI guidelines, <60 ml/min/1.73m2 is sufficient to diagnose a patient with chronic kidney disease. Pharmacy Creatinine Clearance (Chem N/A [facility] Serum or plasma urea nitroge n measurement (mass/volume)Ordered By: Sharda Brown on 03-03-2022 Urea nitrogen [Mass/Vol] 12 mg/dL 05-06 [facility] EMG(NEURO/NI)on 2022 [facility] Automated erythrocytes count in urine sediment (number/area)Ordered By: Rajiv De La O on 10-13-2021 RBC Auto (Urine sed) [#/Area] 0-1 [HPF] [facility] Automated leukocytes count i n urine sediment (number/area)Ordered By: Rajiv De La O on 10-13-2021 WBC Auto (Urine sed) [#/Area] 3-4 [HPF] [facility] Bilirubin Test strip Ql (U)O rdered By: Rajiv De La O on 10-13-2021 Bilirubin Ql (U) Negative Negative [facility] Color Auto (U)Ordered By: Tracy De La O on 10-13-2021 Color (U) Yellow Yellow [facility] Ketones Auto test strip (U) [Mass/Vol]Ordered By: Rajiv De La O on 10-13-2021 Ketones (U) [Mass/Vol] Negative Negative [facility] - UrinalysisOrder ed By: Rajiv De La O on 10-13-2021 Hyaline casts LM Ql (Urine sed) 0-8 [LPF] [facility] Nitrite Test strip Ql (U)Ord ered By: Rajiv De La O on 10-13-2021 Nitrite Ql (U) Negative Negative [facility] Protein Auto test strip (U) [Mass/Vol]Ordered By: Rajiv De La O on 10-13-2021 Protein (U) [Mass/Vol] Negative Negative [facility] Specific gravity Auto test s trip (U) [Rel density]Ordered By: Rajiv De La O on 10-13-2021 Specific gravity (U) [Rel density] 1.009 1.001-1.03 0 [facility] Squamous epithelial cells de tection in urine sediment by light microscopyOrdered By: Rajiv De La O on 10-13-2021 Epithelial cells.squamous LM Ql (Urine sed) 1-2 [HPF] [facility] Urine bacteria detection by automated methodOrdered By: Rajiv De La O on 10-13-2021 Bacteria Auto Ql (U) None seen None Seen [facility] Urine clarity by refractomet ry automatedOrdered By: Rajiv De La O on 10-13-2021 Clarity Refractometry automated (U) Clear Clear [facility] Urine glucose measurement by automated test strip (mass/volume)Ordered By: Rajiv De La O on 10-13-2021 Glucose Auto test strip (U) [Mass/Vol] Normal mg/dL Normal [facility] Urine hemoglobin detection b y automated test stripOrdered By: Rajiv De La O on 10-13-2021 Hemoglobin Auto test strip Ql (U) Negative Negative [facility] Urine leukocyte esterase det ection by automated test stripOrdered By: Rajiv De La O on 10-13-2021 Leukocyte esterase Auto test strip Ql (U) 1+ Negative [facility] Urobilinogen Auto test strip (U) [Mass/Vol]Ordered By: Rajiv De La O on 10-13-2021 Urobilinogen (U) [Mass/Vol] Normal mg/dL Normal [facility] pH Auto test strip (U)Ordere d By: Rajiv De La O on 10-13-2021 pH (U) 7.0 [pH] 5.0-9.0 [facility] Basophils Auto (Bld) [#/Vol] Ordered By: Rajiv De La O on 10-11-2021 Basophils (Bld) [#/Vol] 0.0 10*3/uL 0.0-0.2 [facility] Basophils/100 WBC Auto (Bld) Ordered By: Rajiv De La O on 10-11-2021 Basophils/100 WBC (Bld) 0.6 % [facility] Blood hemoglobin measurement (mass/volume)Ordered By: Rajiv De La O on 10-11-2021 Hemoglobin (Bld) [Mass/Vol] 11.0 g/dL 13.0-17.0 [facility] Blood leukocytes automated c ount (number/volume)Ordered By: Rajiv De La O on 10-11-2021 WBC (Bld) [#/Vol] 3.7 10*3/uL 4.5-11.0 [facility] Creatinine and Glomerular fi ltration rate.predicted panel (S/P/Bld)Ordered By: Rajiv De La O on 10-11-2021 Creatinine [Mass/Vol] 0.76 mg/dL 0.64-1.27 [facility] Eosinophils Auto (Bld) [#/Vo l]Ordered By: Rajiv De La O on 10-11-2021 Eosinophils (Bld) [#/Vol] 0.2 10*3/uL 0.0-0.45 [facility] Eosinophils/100 WBC Auto (Bl d)Ordered By: Rajiv De La O on 10-11-2021 Eosinophils/100 WBC (Bld) 6.4 % [facility] Erythrocyte distribution wid th Auto (RBC) [Ratio]Ordered By: Rajiv De La O on 10-11-2021 Erythrocyte distribution width (RBC) [Ratio] 14.3 % 12.0-14.8 [facility] Estimated glomerular filtrat ion rate (GFR) non- AmericanOrdered By: Rajiv De La O on 10-11-2021 GFR/1.73 sq M.predicted among non-blacks MDRD (S/P/Bld) [Vol rate/Area] > 60 mL/Min [facility] Hematocrit Auto (Bld) [Volum e fraction]Ordered By: Rajiv De La O on 10-11-2021 Hematocrit (Bld) [Volume fraction] 32.3 % 38.8-50.0 [facility] - Hematology and Cell countsOrdered By: Rajiv De La O on 10-11-2021 Nucleated RBC/100 WBC (Bld) [Ratio] 0.2 % 0-0.5 [facility] Lymphocytes Auto (Bld) [#/Vo l]Ordered By: Rajiv De La O on 10-11-2021 Lymphocytes (Bld) [#/Vol] 1.4 10*3/uL 1.00-4.8 [facility] Lymphocytes/100 WBC Auto (Bl d)Ordered By: Rajiv De La O on 10-11-2021 Lymphocytes/100 WBC (Bld) 38.3 % [facility] MCH Auto (RBC) [Entitic mass ]Ordered By: Rajiv De La O on 10-11-2021 MCH (RBC) [Entitic mass] 31.1 pg 27.5-35.2 [facility] MCHC Auto (RBC) [Mass/Vol]Or dered By: Rajiv De La O on 10-11-2021 MCHC (RBC) [Mass/Vol] 34.0 g/dL 32.5-35.6 [facility] MCV Auto (RBC) [Entitic vol] Ordered By: Rajiv De La O on 10-11-2021 MCV (RBC) [Entitic vol] 91.3 fL 83.5-101 [facility] Monocytes Auto (Bld) [#/Vol] Ordered By: Rajiv De La O on 10-11-2021 Monocytes (Bld) [#/Vol] 0.5 10*3/uL 0.0-0.8 [facility] Monocytes/100 WBC Auto (Bld) Ordered By: Rajiv De La O on 10-11-2021 Monocytes/100 WBC (Bld) 13.0 % [facility] Neutrophils Auto (Bld) [#/Vo l]Ordered By: Rajiv De La O on 10-11-2021 Neutrophils (Bld) [#/Vol] 1.5 10*3/uL 1.8-7.7 [facility] Neutrophils/100 WBC Auto (Bl d)Ordered By: Rajiv De La O on 10-11-2021 Neutrophils/100 WBC (Bld) 41.7 % [facility] No Panel InformationOrdered By: Rajiv De La O on 10-11-2021 Estimated GFR () > 60 mL/Min [facility] Comment on above: GFR estimated refere nce range: According to KDOQI guidelines, <60 ml/min/1.73m2 is sufficient to diagnose a patient with chronic kidney disease. Pharmacy Creatinine Clearance (Chem 74.81 [facility] Platelet mean volume Auto (B ld) [Entitic vol]Ordered By: Rajiv De La O on 10-11-2021 Platelet mean volume (Bld) [Entitic vol] 7.6 fL 6.6-10.1 [facility] Platelets Auto (Bld) [#/Vol] Ordered By: Rajiv De La O on 10-11-2021 Platelets (Bld) [#/Vol] 312 10*3/uL 150-450 [facility] RBC Auto (Bld) [#/Vol]Ordere d By: Rajiv De La O on 10-11-2021 RBC (Bld) [#/Vol] 3.54 10*6/uL 3.90-5.60 [facility] Serum or plasma calcium kassidy urement (mass/volume)Ordered By: Rajiv De La O on 10-11-2021 Calcium [Mass/Vol] 10.0 mg/dL 8.2-10.2 [facility] Serum or plasma chloride norma surement (moles/volume)Ordered By: Rajiv De La O on 10-11-2021 Chloride [Moles/Vol] 102 mmol/L 95-114 [facility] Serum or plasma glucose kassidy urement (mass/volume)Ordered By: Rajiv De La O on 10-11-2021 Glucose [Mass/Vol] 86 mg/dL 70-100 [facility] Comment on above: ADA recommended refe rence rangeRandom Glucose Reference Range is dependent on time and content of last meal. Glucose of more than 200 mg/dL in a nonstressed, ambulatory subject supports the diagnosis of Diabetes Mellitus. Serum or plasma potassium me asurement (moles/volume)Ordered By: Rajiv De La O on 10-11-2021 Potassium [Moles/Vol] 3.9 mmol/L 3.5-5.1 [facility] Serum or plasma sodium measu rement (moles/volume)Ordered By: Rajiv De La O on 10-11-2021 Sodium [Moles/Vol] 138 mmol/L 136-146 [facility] Serum or plasma total carbon dioxide measurement (moles/volume)Ordered By: Rajiv De La O on 10-11-2021 CO2 [Moles/Vol] 27.5 mmol/L 22.0-30.0 [facility] Serum or plasma urea nitroge n measurement (mass/volume)Ordered By: Rajiv De La O on 10-11-2021 Urea nitrogen [Mass/Vol] 16 mg/dL 9-23 [facility] Glucose Glucometer (BldC) [M ass/Vol]Ordered By: Rajiv De La O on 09-27-2021 Glucose [Mass/Vol] 152 mg/dL [facility] Comment on above: Random Glucose Refer ence Range is dependent on time and content of last meal. Glucose of more than 200 mg/dL in a nonstressed, ambulatory subject supports the diagnosis of Diabetes Mellitus. No Panel InformationOrdered By: Rajiv De La O on 09-27-2021 Bedside Glucose Comment Glu2: cleaned meter [facility] Albumin [Mass/volume] in Ser um or PlasmaOrdered By: Rajiv De La O on 09-21-2021 Albumin [Mass/Vol] 2.7 g/dL 3.2-5.5 [facility] Folate [Mass/volume] in Seru m or PlasmaOrdered By: Rajiv De La O on 09-21-2021 Folate [Mass/Vol] 6.8 ng/mL >5.9 [facility] Comment on above: Folate reference ran ge: >5.9 ng/mlThe WHO technical consultation on folate and vitamin [id number] has determined that folate concentrations lessthan 4 ng/ml are considered deficient. Globulin Calc (S) [Mass/Vol] Ordered By: Rajiv De La O on 02-08-2022 Globulin (S) [Mass/Vol] 2.5 g/dL [facility] - Chemistry and C hemistry - challengeOrdered By: Rajiv De La O on 09-21-2021 Cobalamin (Vitamin B12) [Mass/Vol] 877 pg/mL 180-914 [facility] No Panel InformationOrdered By: Rajiv De La O on 09-21-2021 Platelet Estimate Normal Normal [facility] Platelet Morphology Comment Normal Normal [facility] Protein [Mass/volume] in Ser um or PlasmaOrdered By: Rajiv De La O on 09-21-2021 Protein [Mass/Vol] 5.2 g/dL 6.1-7.9 [facility] RBC morphologyOrdered By: Tracy De La O on 09-21-2021 RBC morphology finding Nom (Bld) Normal [facility] Serum or plasma alanine meyer otransferase measurement without P-5'-P (enzymatic activiOrdered By: Rajiv De La O on 09-21-2021 ALT No additional P-5'-P [Catalytic activity/Vol] 33 U/L 10-60 [facility] Serum or plasma albumin/glob ulin mass ratioOrdered By: Rajiv De La O on 09-21-2021 Albumin/Globulin [Mass ratio] 1.1 {ratio} [facility] Serum or plasma alkaline ramona sphatase measurement (enzymatic activity/volume)Ordered By: Rajiv De La O on 09-21-2021 ALP [Catalytic activity/Vol] 43 U/L 32-92 [facility] Serum or plasma aspartate am inotransferase measurement (enzymatic activity/volume)Ordered By: Rajiv De La O on 09-21-2021 AST [Catalytic activity/Vol] 17 U/L 10-42 [facility] Serum or plasma prealbumin m easurement (mass/volume)Ordered By: Rajiv De La O on 09-21-2021 Prealbumin [Mass/Vol] 27.6 mg/dL 18.0-38.0 [facility] Serum or plasma total biliru bin measurement (mass/volume)Ordered By: Rajiv De La O on 09-21-2021 Bilirubin [Mass/Vol] 0.9 mg/dL 0.3-1.2 [facility] COVID-19 Positive/NegativeOr dered By: Sharda Brown on 09-20-2021 SARS-CoV-2 (COVID-19) N gene ANGELO+probe Ql (Resp) Negative Negative [facility] Comment on above: Testing for SARS-CoV -2 by RT-PCRThis test was developed and its performance characteristics determined by [employer] ([employer]) and validated at the [facility]. This test has not been FDA [...] on 09-20-2021 Creatinine [Mass/Vol] 0.73 mg/dL 0.64-1.27 [facility] Estimated glomerular filtrat ion rate (GFR) non- AmericanOrdered By: Cory Reese on 09-20-2021 GFR/1.73 sq M.predicted among non-blacks MDRD (S/P/Bld) [Vol rate/Area] > 60 mL/Min [facility] Glucose Glucometer (BldC) [M ass/Vol]Ordered By: Sharda Brown on 09-20-2021 Glucose [Mass/Vol] 176 mg/dL [facility] Comment on above: Random Glucose Refer ence Range is dependent on time and content of last meal. Glucose of more than 200 mg/dL in a nonstressed, ambulatory subject supports the diagnosis of Diabetes Mellitus. No Panel InformationOrdered By: Sharda Brown on 09-20-2021 Bedside Glucose Comment Glu2: cleaned meter [facility] No Panel InformationOrdered By: Cory Reese on 09-20-2021 Estimated GFR () > 60 mL/Min [facility] Comment on above: GFR estimated refere nce range: According to KDOQI guidelines, <60 ml/min/1.73m2 is sufficient to diagnose a patient with chronic kidney disease. Pharmacy Creatinine Clearance (Chem 81.64 [facility] Serum or plasma calcium kassidy urement (mass/volume)Ordered By: Cory Reese on 09-20-2021 Calcium [Mass/Vol] 9.4 mg/dL 8.2-10.2 [facility] Serum or plasma chloride norma surement (moles/volume)Ordered By: Cory Reese on 09-20-2021 Chloride [Moles/Vol] 99 mmol/L 95-114 [facility] Serum or plasma glucose kassidy urement (mass/volume)Ordered By: Cory Reese on 09-20-2021 Glucose [Mass/Vol] 145 mg/dL 70-100 [facility] Comment on above: ADA recommended refe rence rangeRandom Glucose Reference Range is dependent on time and content of last meal. Glucose of more than 200 mg/dL in a nonstressed, ambulatory subject supports the diagnosis of Diabetes Mellitus. Serum or plasma potassium me asurement (moles/volume)Ordered By: Cory Reese on 09-20-2021 Potassium [Moles/Vol] 3.7 mmol/L 3.5-5.1 [facility] Serum or plasma sodium measu rement (moles/volume)Ordered By: Cory Reese on 09-20-2021 Sodium [Moles/Vol] 134 mmol/L 136-146 [facility] Serum or plasma total carbon dioxide measurement (moles/volume)Ordered By: Cory Reese on 09-20-2021 CO2 [Moles/Vol] 24.7 mmol/L 22.0-30.0 [facility] Serum or plasma urea nitroge n measurement (mass/volume)Ordered By: Cory Reese on 09-20-2021 Urea nitrogen [Mass/Vol] 24 mg/dL 9-23 [facility] Activated partial thrombopla stin time (aPTT) in platelet poor plasma by coagulation aOrdered By: Cory Reese on 09-19-2021 aPTT Coag (PPP) [Time] 25.5 s 25.1-36.5 [facility] Albumin [Mass/volume] in Ser um or PlasmaOrdered By: Cory Reese on 09-19-2021 Albumin [Mass/Vol] 2.6 g/dL 3.2-5.5 [facility] Basophils Auto (Bld) [#/Vol] Ordered By: Cory Reese on 09-19-2021 Basophils (Bld) [#/Vol] 0.0 10*3/uL 0.0-0.2 [facility] Basophils/100 WBC Auto (Bld) Ordered By: Cory Reese on 09-19-2021 Basophils/100 WBC (Bld) 0.2 % [facility] Blood hemoglobin measurement (mass/volume)Ordered By: Cory Reese on 09-19-2021 Hemoglobin (Bld) [Mass/Vol] 11.4 g/dL 13.0-17.0 [facility] Blood leukocytes automated c ount (number/volume)Ordered By: Cory Reese on 09-19-2021 WBC (Bld) [#/Vol] 7.1 10*3/uL 4.5-11.0 [facility] Eosinophils Auto (Bld) [#/Vo l]Ordered By: Cory Reese on 09-19-2021 Eosinophils (Bld) [#/Vol] 0.0 10*3/uL 0.0-0.45 [facility] Eosinophils/100 WBC Auto (Bl d)Ordered By: Cory Reese on 09-19-2021 Eosinophils/100 WBC (Bld) 0.0 % [facility] Erythrocyte distribution wid th Auto (RBC) [Ratio]Ordered By: Cory Reese on 09-19-2021 Erythrocyte distribution width (RBC) [Ratio] 13.1 % 12.0-14.8 [facility] Globulin Calc (S) [Mass/Vol] Ordered By: Cory Reese on 09-19-2021 Globulin (S) [Mass/Vol] 3.2 g/dL [facility] Glucose mean value [Mass/vol ume] in Blood Estimated from glycated hemoglobinOrdered By: Cory Reese on 09-19-2021 Average glucose Estimated from glycated hemoglobin (Bld) [Mass/Vol] 137 mg/dL [facility] Hematocrit Auto (Bld) [Volum e fraction]Ordered By: Cory Reese on 09-19-2021 Hematocrit (Bld) [Volume fraction] 34.5 % 38.8-50.0 [facility] Hemoglobin A1c percentageOrd ered By: Cory Reese on 09-19-2021 HbA1c (Bld) [Mass fraction] 6.4 % 4.3-5.6 [facility] Comment on above: Increased risk for d iabetes: 5.7 - 6.4diabetes: >6.4glycemic control for adults with diabetes: <7.0 Laboratory - Chemistry and C hemistry - challengeOrdered By: Cory Reese on 09-19-2021 Magnesium [Mass/Vol] 2.0 mg/dL 1.6-2.6 [facility] - CoagulationOrde red By: Cory Reese on 09-19-2021 PT Coag (PPP) [Time] 11.8 s 9.0-12.9 [facility] - Hematology and Cell countsOrdered By: Cory Reese on 09-19-2021 Nucleated RBC/100 WBC (Bld) [Ratio] 0.1 % 0-0.5 [facility] Lymphocytes Auto (Bld) [#/Vo l]Ordered By: Cory Reese on 09-19-2021 Lymphocytes (Bld) [#/Vol] 0.8 10*3/uL 1.00-4.8 [facility] Lymphocytes/100 WBC Auto (Bl d)Ordered By: Cory Reese on 09-19-2021 Lymphocytes/100 WBC (Bld) 11.8 % [facility] MCH Auto (RBC) [Entitic mass ]Ordered By: Cory Reese on 09-19-2021 MCH (RBC) [Entitic mass] 30.5 pg 27.5-35.2 [facility] MCHC Auto (RBC) [Mass/Vol]Or dered By: Cory Reese on 09-19-2021 MCHC (RBC) [Mass/Vol] 33.0 g/dL 32.5-35.6 [facility] MCV Auto (RBC) [Entitic vol] Ordered By: Cory Reese on 09-19-2021 MCV (RBC) [Entitic vol] 92.4 fL 83.5-101 [facility] Monocytes Auto (Bld) [#/Vol] Ordered By: Cory Reese on 09-19-2021 Monocytes (Bld) [#/Vol] 0.4 10*3/uL 0.0-0.8 [facility] Monocytes/100 WBC Auto (Bld) Ordered By: Cory Reese on 09-19-2021 Monocytes/100 WBC (Bld) 6.3 % [facility] Neutrophils Auto (Bld) [#/Vo l]Ordered By: Cory Reese on 09-19-2021 Neutrophils (Bld) [#/Vol] 5.8 10*3/uL 1.8-7.7 [facility] Neutrophils/100 WBC Auto (Bl d)Ordered By: Cory Reese on 09-19-2021 Neutrophils/100 WBC (Bld) 81.7 % [facility] No Panel InformationOrdered By: Cory Reese on 09-19-2021 Platelet Estimate Normal Normal [facility] Platelet Morphology Comment Normal Normal [facility] Platelet mean volume Auto (B ld) [Entitic vol]Ordered By: Cory Reese on 09-19-2021 Platelet mean volume (Bld) [Entitic vol] 8.3 fL 6.6-10.1 [facility] Platelet poor plasma interna tional normalized ratio (INR) by coagulation assay (relatOrdered By: Cory Reese on 09-19-2021 INR Coag (PPP) [Relative time] 1.1 {INR} [facility] Comment on above: INR Therapeutic Rang [...] 09-19-2021 Platelets (Bld) [#/Vol] 239 10*3/uL 150-450 [facility] Protein [Mass/volume] in Ser um or PlasmaOrdered By: Cory Reese on 09-19-2021 Protein [Mass/Vol] 5.8 g/dL 6.1-7.9 [facility] RBC Auto (Bld) [#/Vol]Ordere d By: Cory Reese on 09-19-2021 RBC (Bld) [#/Vol] 3.73 10*6/uL 3.90-5.60 [facility] RBC morphologyOrdered By: Jesus Reese on 09-19-2021 RBC morphology finding Nom (Bld) Normal [facility] Serum or plasma alanine meyer otransferase measurement without P-5'-P (enzymatic activiOrdered By: Cory Reese on 09-19-2021 ALT No additional P-5'-P [Catalytic activity/Vol] 42 U/L 10-60 [facility] Serum or plasma albumin/glob ulin mass ratioOrdered By: Cory Reese on 09-19-2021 Albumin/Globulin [Mass ratio] 0.8 {ratio} [facility] Serum or plasma alkaline ramona sphatase measurement (enzymatic activity/volume)Ordered By: Cory Reese on 09-19-2021 ALP [Catalytic activity/Vol] 47 U/L 32-92 [facility] Serum or plasma aspartate am inotransferase measurement (enzymatic activity/volume)Ordered By: Cory Reese on 09-19-2021 AST [Catalytic activity/Vol] 34 U/L 10-42 [facility] Serum or plasma total biliru bin measurement (mass/volume)Ordered By: Cory Reese on 09-19-2021 Bilirubin [Mass/Vol] 1.0 mg/dL 0.3-1.2 [facility] TSH DL <= 0.005 mIU/L QnOrde red By: Cory Reese on 09-19-2021 TSH Qn 2.61 m[IU]/L 0.45-5.33 [facility] COVID-19 Positive/NegativeOr dered By: Sharda Brown on 09-13-2021 SARS-CoV-2 (COVID-19) N gene ANGELO+probe Ql (Resp) Negative Negative [facility] Comment on above: Testing for SARS-CoV -2 by RT-PCRThis test was developed and its performance characteristics determined by [employer] and validated at the [facility]. This test has not been FDA [...] 09-09-2021 Basophils (Bld) [#/Vol] 0.0 10*3/uL 0.0-0.2 [facility] Basophils/100 WBC Auto (Bld) Ordered By: Sharda Brown on 09-09-2021 Basophils/100 WBC (Bld) 0.7 % [facility] Blood hemoglobin measurement (mass/volume)Ordered By: Sharda Brown on 09-09-2021 Hemoglobin (Bld) [Mass/Vol] 13.5 g/dL 13.0-17.0 [facility] Blood leukocytes automated c ount (number/volume)Ordered By: Sharda Brown on 09-09-2021 WBC (Bld) [#/Vol] 5.4 10*3/uL 4.5-11.0 [facility] Creatinine and Glomerular fi ltration rate.predicted panel (S/P/Bld)Ordered By: Sharda Brown on 09-09-2021 Creatinine [Mass/Vol] 1.13 mg/dL 0.64-1.27 [facility] Eosinophils Auto (Bld) [#/Vo l]Ordered By: Sharda Brown on 09-09-2021 Eosinophils (Bld) [#/Vol] 0.3 10*3/uL 0.0-0.45 [facility] Eosinophils/100 WBC Auto (Bl d)Ordered By: Sharda Brown on 09-09-2021 Eosinophils/100 WBC (Bld) 4.7 % [facility] Erythrocyte distribution wid th Auto (RBC) [Ratio]Ordered By: Sharda Brown on 09-09-2021 Erythrocyte distribution width (RBC) [Ratio] 12.5 % 12.0-14.8 [facility] Estimated glomerular filtrat ion rate (GFR) non- AmericanOrdered By: Sharda Brown on 09-09-2021 GFR/1.73 sq M.predicted among non-blacks MDRD (S/P/Bld) [Vol rate/Area] > 60 mL/Min [facility] Hematocrit Auto (Bld) [Volum e fraction]Ordered By: Sharda Brown on 09-09-2021 Hematocrit (Bld) [Volume fraction] 39.6 % 38.8-50.0 [facility] Laboratory - Hematology and Cell countsOrdered By: Sharda Brown on 09-09-2021 Nucleated RBC/100 WBC (Bld) [Ratio] 0.2 % 0-0.5 [facility] Lymphocytes Auto (Bld) [#/Vo l]Ordered By: Sharda Brown on 09-09-2021 Lymphocytes (Bld) [#/Vol] 1.3 10*3/uL 1.00-4.8 [facility] Lymphocytes/100 WBC Auto (Bl d)Ordered By: Sharda Brown on 09-09-2021 Lymphocytes/100 WBC (Bld) 24.6 % [facility] MCH Auto (RBC) [Entitic mass ]Ordered By: Sharda Brown on 09-09-2021 MCH (RBC) [Entitic mass] 31.3 pg 27.5-35.2 [facility] MCHC Auto (RBC) [Mass/Vol]Or dered By: Sharda Brown on 09-09-2021 MCHC (RBC) [Mass/Vol] 34.0 g/dL 32.5-35.6 [facility] MCV Auto (RBC) [Entitic vol] Ordered By: Sharda Brown on 09-09-2021 MCV (RBC) [Entitic vol] 91.9 fL 83.5-101 [facility] Monocytes Auto (Bld) [#/Vol] Ordered By: Sharda Brown on 09-09-2021 Monocytes (Bld) [#/Vol] 0.5 10*3/uL 0.0-0.8 [facility] Monocytes/100 WBC Auto (Bld) Ordered By: Sharda Brown on 09-09-2021 Monocytes/100 WBC (Bld) 9.6 % [facility] Neutrophils Auto (Bld) [#/Vo l]Ordered By: Sharda Brown on 09-09-2021 Neutrophils (Bld) [#/Vol] 3.3 10*3/uL 1.8-7.7 [facility] Neutrophils/100 WBC Auto (Bl d)Ordered By: Sharda Brown on 09-09-2021 Neutrophils/100 WBC (Bld) 60.4 % [facility] No Panel InformationOrdered By: Sharda Brown on 09-09-2021 Estimated GFR () > 60 mL/Min [facility] Comment on above: GFR estimated refere nce range: According to KDOQI guidelines, <60 ml/min/1.73m2 is sufficient to diagnose a patient with chronic kidney disease. Pharmacy Creatinine Clearance (Chem N/A [facility] Platelet mean volume Auto (B ld) [Entitic vol]Ordered By: Sharad Brown on 09-09-2021 Platelet mean volume (Bld) [Entitic vol] 8.4 fL 6.6-10.1 [facility] Platelets Auto (Bld) [#/Vol] Ordered By: Sharda Brown on 09-09-2021 Platelets (Bld) [#/Vol] 228 10*3/uL 150-450 [facility] RBC Auto (Bld) [#/Vol]Ordere d By: Sharda Brown on 09-09-2021 RBC (Bld) [#/Vol] 4.32 10*6/uL 3.90-5.60 [facility] Serum or plasma calcium kassidy urement (mass/volume)Ordered By: Sharda Brown on 09-09-2021 Calcium [Mass/Vol] 10.1 mg/dL 8.2-10.2 [facility] Serum or plasma chloride norma surement (moles/volume)Ordered By: Sharda Brown on 09-09-2021 Chloride [Moles/Vol] 102 mmol/L 95-114 [facility] Serum or plasma glucose kassidy urement (mass/volume)Ordered By: Sharda Brown on 09-09-2021 Glucose [Mass/Vol] 145 mg/dL 70-100 [facility] Comment on above: ADA recommended refe rence rangeRandom Glucose Reference Range is dependent on time and content of last meal. Glucose of more than 200 mg/dL in a nonstressed, ambulatory subject supports the diagnosis of Diabetes Mellitus. Serum or plasma potassium me asurement (moles/volume)Ordered By: Sharda Brown on 09-09-2021 Potassium [Moles/Vol] 3.3 mmol/L 3.5-5.1 [facility] Serum or plasma sodium measu rement (moles/volume)Ordered By: Sharda Brown on 09-09-2021 Sodium [Moles/Vol] 138 mmol/L 136-146 [facility] Serum or plasma total carbon dioxide measurement (moles/volume)Ordered By: Sharda Stubbsалександр on 09-09-2021 CO2 [Moles/Vol] 27.2 mmol/L 22.0-30.0 [facility] Serum or plasma urea nitroge n measurement (mass/volume)Ordered By: Sharda Brown on 09-09-2021 Urea nitrogen [Mass/Vol] 9 mg/dL 05-06 [facility] Operative Reporton 9 Operative Report MR#: [id number] S [facility] Pt. Name: Tyler Torres Room #: 0C [...] P/Poornima Arredondo MD Date Trans: 07/05/2019 04:07 P/taye [id number] cc: Armando Richards M.D. [address] [facility] [address] Normal [facility] POC GLUCOSE LABon 07-05-2019 Glucose [Mass/Vol] 93 mg/dL Normal 70-100 [facility] Comment on above: Performed By: #### 5 [id number] #### [facility] [address] [place] [id number], [facility] APTTon 07-04-2019 aPTT Coag (Bld) [Time] 27.0 s Normal 25.0-35.0 [facility] Comment on above: Result Comment: ALL [...] PURPOSE. Performed By: #### 0 [id number] #### [facility] [address] [place] [address], [facility] BASIC METABOLIC PANELon 06-15 Calcium [Mass/Vol] 10.3 mg/dL Normal 8.6-10.3 [facility] Comment on above: Performed By: #### 5 [id number] #### [facility] [address] [place] [address], [facility] Chloride [Moles/Vol] 103 mmol/L Normal 98-107 [facility] Comment on above: Performed By: #### 5 [id number] #### [facility] [address] [place] [address], [facility] CO2 [Moles/Vol] 29 mmol/L Normal 21-31 [facility] Comment on above: Performed By: #### 5 [id number] #### [facility] [address] [place] [address], [facility] Creatinine [Mass/Vol] 1.10 mg/dL Normal 0.70-1.30 [facility] Comment on above: Performed By: #### 5 [id number] #### [facility] [address] [place] [address], [facility] GFR/1.73 sq M predicted among blacks MDRD (S/P/Bld) [Vol rate/Area] mL/min/{1.73_m2} Normal >60 [facility] Comment on above: Result Comment: Calc ulation may not be valid for patients over 70 years Performed By: #### 5 [id number] #### [facility] [address] [place] [address], [facility] GFR/1.73 sq M predicted among non-blacks MDRD (S/P/Bld) [Vol rate/Area] mL/min/{1.73_m2} Normal >60 [facility] Comment on above: Result Comment: Calc ulation may not be valid for patients over 70 years Performed By: #### 5 [id number] #### [facility] [address] [place] [address], [facility] Glucose [Mass/Vol] 125 mg/dL High 70-100 [facility] Comment on above: Performed By: #### 5 [id number] #### [facility] [address] [place] [address], [facility] Potassium [Moles/Vol] 3.9 mmol/L Normal 3.5-5.1 [facility] Comment on above: Performed By: #### 5 [id number] #### [facility] [address] [place] [address], [facility] Sodium [Moles/Vol] 138 mmol/L Normal 136-145 [facility] Comment on above: Performed By: #### 5 [id number] #### [facility] [address] [facility] [place] [address], [facility] Urea nitrogen [Mass/Vol] 19 mg/dL Normal 7-25 [facility] Comment on above: Performed By: #### 5 [id number] #### [facility] [address] [place] [address], [facility] CBC W/DIFFon 07-04-2019 ABS BASOPHILS 0.1 10*3/uL Normal 0.0-0.2 The [facility] Comment on above: Performed By: #### 0 [id number] #### [facility] [address] [facility] [place] [address], [facility] ABS IMM GRANS 0.0 10*3/uL Normal 0.0-0.2 The [facility] Comment on above: Performed By: #### 0 [id number] #### [facility] [address] [facility] [place] [address], [facility] ABS NEUTROPHILS 6.3 10*3/uL Normal 1.6-7.6 [facility] Comment on above: Performed By: #### 0 [id number] #### [facility] [address] Basophils/100 WBC (Bld) 0.6 % Normal 0.0-1.0 [facility] Comment on above: Performed By: #### 0 0071 #### [facility] [address] [place] [address], [facility] Eosinophils (Bld) [#/Vol] 0.2 10*3/uL Normal 0.0-0.5 [facility] Comment on above: Performed By: #### 0 [id number] #### [facility] [address] [place] [address], [facility] Eosinophils/100 WBC (Bld) 1.8 % Normal 0.0-6.0 [facility] Comment on above: Performed By: #### 0 [id number] #### [facility] [address] Erythrocyte distribution width (RBC) [Ratio] 12.5 % Normal 11.5-15.0 [facility] Comment on above: Performed By: #### 0 0071 #### [facility] [address] [place] [address], [facility] Hematocrit (Bld) [Volume fraction] 40.7 % Normal 39.0-50.0 [facility] Comment on above: Performed By: #### 0 0071 #### [facility] [address] [place] [address], [facility] Hemoglobin (Bld) [Mass/Vol] 13.0 g/dL Normal 13.0-17.0 [facility] Comment on above: Performed By: #### 0 0071 #### [facility] [address] [place] [address], [facility] IMMATURE GRANS 0.5 % Normal 0.0-1.[address] [facility] [address] Comment on above: Performed By: #### 0 0071 #### [facility] [address] [place] [address], [facility] Lymphocytes (Bld) [#/Vol] 1.6 10*3/uL Normal 1.2-4.0 [facility] Comment on above: Performed By: #### 0 0071 #### [facility] [address] Lymphocytes/100 WBC (Bld) 18.1 % Low 20.0-45.0 [facility] Comment on above: Performed By: #### 0 0071 #### [facility] [address] [place] [address], [facility] MCH (RBC) [Entitic mass] 31.3 pg Normal 27.0-33.0 [facility] Comment on above: Performed By: #### 0 0071 #### [facility] [address] MCHC (RBC) [Mass/Vol] 31.9 g/dL Low 32.0-35.0 [facility] Comment on above: Performed By: #### 0 0071 #### [facility] [address] [place] [address], [facility] MCV (RBC) [Entitic vol] 97.8 fL Normal 82.0-98.0 [facility] Comment on above: Performed By: #### 0 [id number] #### [facility] [address] [place] [address], [facility] Monocytes (Bld) [#/Vol] 0.7 10*3/uL Normal 0.1-1.0 [facility] Comment on above: Performed By: #### 0 0071 #### [facility] [address] [place] [id number], [facility] MONOS 8.2 % Normal 5.0-12.0 [facility] Comment on above: Performed By: #### 0 0071 #### [facility] [address] [place] [address], [facility] Neutrophils/100 WBC (Bld) 70.8 % Normal 40.0-72.0 [facility] Comment on above: Performed By: #### 0 0071 #### [facility] [address] [place] [place] [address], [facility] Nucleated RBC/100 WBC (Bld) [Ratio] 0 % Normal 0-0 [facility] Comment on above: Performed By: #### 0 [id number] #### [facility] [address] [facility] [place] [address], [facility] PLAT CNT 247 10*3/uL Normal 150-400 The [facility] Comment on above: Performed By: #### 0 0071 #### [facility] [address] [place] [place] [address], [facility] RBC (Bld) [#/Vol] 4.16 10*6/uL Low 4.20-5.70 [facility] Comment on above: Performed By: #### 0 0071 #### [facility] [address] [place] [place] [address], [facility] WBC (Bld) [#/Vol] 8.83 10*3/uL Normal 4.00-10.60 [facility] Comment on above: Performed By: #### 0 0071 #### [facility] [address] PROTHROMBIN TIMEon 9 INR Coag (PPP) [Relative time] 0.94 {INR} Normal 0.91-1.16 [facility] Comment on above: Result Comment: [facility] WARFARIN THERAPY ------- [...] 1995;108:231S-246S. Performed By: #### 5 [id number] #### [facility] [address] PT Coag (PPP) [Time] 12.6 s Normal 12.3-14.8 [facility] Comment on above: Result Comment: ALL RESULTS MUST BE INTERPRETED WITH RESPECT TO BLOOD DRAWING ARTIFACT OR DILUTION ERROR OF ANTICOAGULANT AT THE TIME OF SAMPLING. Performed By: #### 5 [id number] #### [facility] [address] [facility]. [address] Operative Reporton 9 Operative Report MR#: [id number] S [facility] Pt. Name: Tyler Torres Room #: 0C Discharge Date: Birthdate: 1945 OPERATIVE REPORT DATE OF SURGERY: 06/14/2019 SURGEON: Vicente Tripathi M.D. EXTRUSION PRESS OPERATOR: Poornima Arredondo M.D. PREOPERATIVE DIAGNOSIS: Left dorsal [...] Arredondo MD Date Trans: 06/15/2019 03:29 P/taye [id number] cc: Armando Richards M.D. [address] [facility], [address] [place] [address] Normal [facility] POC GLUCOSE LABon 06-14-2019 Glucose [Mass/Vol] 119 mg/dL High 70-100 [facility] Comment on above: Performed By: #### 0 [id number] #### [facility] [address] [facility]. [address] Operative Reporton 9 Operative Report MR#: [id number] S [facility] Pt. Name: Tyler Torres Room #: 0C Discharge 05/31/2019 Date: Birthdate: 1945 OPERATIVE REPORT DATE OF SURGERY: 05/31/2019 SURGEON: Vicente Tripathi M.D. ASSISTANTS: 1. Yareli Sanchez MD. 2. Poornima Arredondo M.D. 3. Franca Gerber M.D. PREOPERATIVE DIAGNOSIS: Left forearm high-pressure injection injury. POSTOPERATIVE DIAGNOSIS: Left forearm high-pressure injection injury. PROCEDURE PERFORMED: Removal of DermaClose with irrigation, debridement and partial closure of wound. ANESTHESIA: General. FLUIDS: Per Anesthesia record. EBL: 25 mL. DRAINS: None. COMPLICATIONS: None. SPLINTS: DermaClose closure device. SPECIMENS: None. 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 He says [...] Sanchez MD Date Trans: 06/04/2019 02:31 A/taye [id number] cc: Armando Richards M.D. [address] [facility], [address] [place] [address] Normal [facility] POC GLUCOSE LABon 05-31-2019 Glucose [Mass/Vol] 94 mg/dL Normal 70-100 [facility] Comment on above: Performed By: #### 0 [id number] #### [facility] [address] [facility]. [address] Operative Reporton 9 Operative Report MR#: [id number] S [facility] Pt. Name: Tyler Torres Room #: 0C Discharge 05/24/2019 Date: Birthdate: 1945 OPERATIVE REPORT DATE OF SURGERY: 05/24/2019 SURGEON: Vicente Tripathi M.D. ASSISTANTS: 1. Yareli Sanchez MD. 2. Franca Gerber M.D. 3. Poornima Arrednodo M.D. PREOPERATIVE DIAGNOSIS: Left forearm high-pressure injection injury. POSTOPERATIVE DIAGNOSIS: Left forearm high-pressure injection injury. PROCEDURE PERFORMED: Irrigation of left forearm wound with application of DermaClose. ANESTHESIA: General. FLUIDS: Per Anesthesia record. EBL: 25 mL. DRAINS: None. COMPLICATIONS: None. IMPLANTS: DermaClose closure device. EXPLANTS: None. SPECIMENS: None. 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 He [...] immediately available to assist. Date Dict: 05/27/2019/11:48 Ian/Yareli Sanchez MD Date Trans: 05/27/2019 10:21 P/mmo Addendum: 05/27/2019 11:49 A/mmo Copied and Pasted: 05/28/2019 09:04 A/mb [id number] cc: Armando Richards M.D. [address] [facility], [address] [facility] [address] Normal [facility] POC GLUCOSE LABon 05-24-2019 Glucose [Mass/Vol] 88 mg/dL Normal 70-100 [facility] Comment on above: Performed By: #### 0 [id number] #### [facility] [address] [facility]. [address] Operative Reporton 9 Operative Report MR#: [id number] [facility] Pt. 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 He had initially presented to another [...] P/Yareli Sanchez MD Date Trans: 05/21/2019 08:14 Ian/taye [id number] cc: Armando Richards M.D. [address] [facility], [address] [facility] [address] Normal [facility] APTTon 05-17-2019 aPTT Coag (Bld) [Time] 26.1 s Normal 25.0-35.0 [facility] Comment on above: Result Comment: ALL RESULTS [...] THIS PURPOSE. Performed By: #### 5 [id number], [id number] #### [facility] [address] [place] [place] [address], [facility] POC GLUCOSE LABon 05-17-2019 Glucose [Mass/Vol] 99 mg/dL Normal 70-100 [facility] Comment on above: Performed By: #### 8 [id number] #### [facility] [address] [place] [address], [facility] PROTHROMBIN TIMEon 9 INR Coag (PPP) [Relative time] 0.93 {INR} Normal 0.91-1.16 [facility] Comment on above: Result Comment: [facility] P [...] 1995;108:231S-246S. Performed By: #### 0 0071 #### [facility] [address] [facility]. [address] PT Coag (PPP) [Time] 12.5 s Normal 12.3-14.8 [facility] Comment on above: Result Comment: ALL RESULTS MUST BE INTERPRETED WITH RESPECT TO BLOOD DRAWING ARTIFACT OR DILUTION ERROR OF ANTICOAGULANT AT THE TIME OF SAMPLING. Performed By: #### 0 [id number] #### [facility] [address] [facility]. [address] Operative Reporton 9 Operative Report MR#: [id number] [facility] Pt. Name: Tyler Torres Room #: [id number] Discharge 05/09/2019 Date: Birthdate: 1945 OPERATIVE REPORT [...] immediately available to assist. Date Dict: 05/13/2019/07:27 Denny/Poornima Arredondo MD Date Trans: 05/14/2019 02:30 A/taye [id number] Normal [facility] Coding Summaryon 05-10-2019 Coding Summary CODING DATE: 019 FINAL [facility] STATUS: Discharge/Transfer to Another Hospital PAYOR: Medicare [...] Atkinson Date Saved: 05/10/2019 02:19 pm Normal [facility] Operative Reporton 9 Operative Report MR#: [id number] [facility] Pt. Name: Tyler Torres Room #: [id number] Discharge Date: Birthdate: 1945 OPERATIVE REPORT DATE [...] immediately available to assist. Date Dict: 05/08/2019/06:21 P/Poornima Arredondo MD Date Trans: 05/09/2019 05:19 A/mmo [id number] Normal [facility] POC GLUCOSE LABon 05-08-2019 Glucose [Mass/Vol] 93 mg/dL Normal 70-100 [facility] Comment on above: Performed By: #### [id number] #### [facility] [facility] [address] [place] [address], [facility] TYPE AND SCREENon 05-08-2019 ABO INTERPRETATION A Normal [facility] Comment on above: Performed By: #### [id number] #### [facility] [address] [place] [address], [facility] RH INTERPRETATION Positive Normal The [facility] Comment on above: Performed By: #### 6 [id number] #### [facility] [address] [place] [address], [facility] BASIC METABOLIC PANELon 04-15 Calcium [Mass/Vol] 10.7 mg/dL High 8.6-10.3 [facility] Comment on above: Order Comment: No: D o not add to previous draw Performed By: #### 0 [id number] #### [facility] [address] [place] [address], [place] Chloride [Moles/Vol] 104 mmol/L Normal 98-107 The [facility] Comment on above: Order Comment: No: D o not add to previous draw Performed By: #### 0 [id number] #### [facility] [address] [place] [address], [place] CO2 [Moles/Vol] 27 mmol/L Normal 21-31 The [facility] Comment on above: Order Comment: No: D o not add to previous draw Performed By: #### 0 0071 #### [facility] [address] [place] [address], [place] Creatinine [Mass/Vol] 1.15 mg/dL Normal 0.60-1.20 The [facility] Comment on above: Order Comment: No: D o not add to previous draw Performed By: #### 0 [id number] #### [facility] [address] [place] [address], [place] GFR/1.73 sq M predicted among blacks MDRD (S/P/Bld) [Vol rate/Area] 56 ml/min/1.73sq m Abnormal >60 The [facility] Comment on above: Order Comment: No: D o not add to previous draw Result Comment: Calc ulation may not be valid for patients over 70 years Performed By: #### 0 [id number] #### [facility] [address] [place] [address], [facility] GFR/1.73 sq M predicted among non-blacks MDRD (S/P/Bld) [Vol rate/Area] 46 ml/min/1.73sq m Abnormal >60 The [facility] Comment on above: Order Comment: No: D o not add to previous draw Result Comment: Calc ulation may not be valid for patients over 70 years Performed By: #### 0 [id number] #### [facility] [address] [place] [address], [facility] Glucose [Mass/Vol] 116 mg/dL High 70-100 [facility] Comment on above: Order Comment: No: D o not add to previous draw Performed By: #### 0 0071 #### [facility] [address] [place] [address], [place] Potassium [Moles/Vol] 3.5 mmol/L Normal 3.5-5.1 The [facility] Comment on above: Order Comment: No: D o not add to previous draw Performed By: #### 0 0071 #### [facility] [address] [place] [address], [place] Sodium [Moles/Vol] 140 mmol/L Normal 136-145 [facility] Comment on above: Order Comment: No: D o not add to previous draw Performed By: #### 0 0071 #### [facility] [address] [place] [address], [facility] Urea nitrogen [Mass/Vol] 17 mg/dL Normal 7-25 The [facility] Comment on above: Order Comment: No: D o not add to previous draw Performed By: #### 0 0071 #### [facility] [address] [place] [address], [facility] CBC COMPLETE BLOOD COUNTon 05-07-2019 Erythrocyte distribution width (RBC) [Ratio] 13.1 % Normal 11.5-15.0 The [facility] Comment on above: Order Comment: No: D o not add to previous draw Performed By: #### 5 [id number] #### [facility] [address] [place] [id number], [facility] Hematocrit (Bld) [Volume fraction] 43.9 % Normal 36.0-45.0 The [facility] Comment on above: Order Comment: No: D o not add to previous draw Performed By: #### 5 [id number] #### [facility] [address] [place] [address], [facility] Hemoglobin (Bld) [Mass/Vol] 14.5 g/dL Normal 12.0-15.0 [facility] Comment on above: Order Comment: No: D o not add to previous draw Performed By: #### 5 [id number] #### [facility] [address] [place] [address], [facility] MCH (RBC) [Entitic mass] 32.4 pg Normal 27.0-33.0 [facility] Comment on above: Order Comment: No: D o not add to previous draw Performed By: #### 5 [id number] #### [facility] [address] [place] [address], [facility] MCHC (RBC) [Mass/Vol] 33.0 g/dL Normal 32.0-35.0 The [facility] Comment on above: Order Comment: No: D o not add to previous draw Performed By: #### 5 [id number] #### [facility] [address] [place] [address], [facility] MCV (RBC) [Entitic vol] 98.2 fL High 82.0-98.0 The [facility] Comment on above: Order Comment: No: D o not add to previous draw Performed By: #### 5 [id number] #### [facility] [address] [place] [address], [facility] Nucleated RBC/100 WBC (Bld) [Ratio] 0 % Normal 0-0 The [facility] Comment on above: Order Comment: No: D o not add to previous draw Performed By: #### 5 [id number] #### [facility] [address] [place] [address], [facility] PLAT CNT 228 10*3/uL Normal 150-400 The [facility] Comment on above: Order Comment: No: D o not add to previous draw Performed By: #### 5 [id number] #### [facility] [address] [facility] [place] [address], [facility] RBC (Bld) [#/Vol] 4.47 10*6/uL Normal 3.80-5.00 The [facility] Comment on above: Order Comment: No: D o not add to previous draw Performed By: #### 5 [id number] #### [facility] [address] [place] [address], [facility] WBC (Bld) [#/Vol] 13.08 10*3/uL High 4.00-10.60 The [facility] Comment on above: Order Comment: No: D o not add to previous draw Performed By: #### 5 [id number] #### [facility] [address] [facility] [place] [address], [facility] ED Clinical Summaryon 2018 ED Clinical Summary [facility] Emergency Department [address] [place], [place] [id number] ED Clinical Summary PERSON INFORMATION Name: TYLER TORRES Age: 74 Years Sex: MALE : 1945 MRN: Acct#: Visit Reason: Arm laceration; LEFT ARM LAC Arrival: 05/07/2019 13:31:10 Discharge: 05/07/2019 18:10:00 LOS: 000 04:39 Check In: 05/07/2019 13:31:10 Checkout:05/07/2019 18:10:00 Address: [address] [place] [address] PCP: ARMANDO RICHARDS PROVIDER INFORMATION Provider Role [...] 10. Patient states he was using a safety engineer pressure vessels, was standing on top of, he slipped [...] Constant Indicator, Patient to be transferred to [facility] emergency department, accepting physician Dr. Brandt/Bhumi orthopedics.. [...] having him be evaluated by orthopedics at [facility]. We'll start an IV, give him one and half grams of Unasyn. I discussed the patient the potential complications with this type injury, he indicated understanding and agreement. I contacted Dr. Tripathi, approximately 3:30 PM, we discussed the patient's injury, and x-ray findings, he agreed with accepting the patient, so we will contact the emergency department. Discussed with Dr. Obrien, attending at [facility], patient's history, presentation, x-ray findings and physical [...] Plan Diagnosis Laceration of forearm, left, complicated ([id number] S51.812A, Discharge, Medical) High-pressure injection injury of finger (TFY90-YL S69.80XA, Admitting, Medical) Laceration of forearm, left, complicated (AJH38-UJ S51.812A, Admitting, Medical) Skin tear of hand without complication (UZD37-VZ S61.419A, Admitting, Medical) Skin tear of hand without complication (YMX92-PO S61.419A, Discharge, Medical) This was a high pressure injury to the left forearm, extension to distal forearm and wrist Plan Condition: Improved, Stable. Disposition: Transfer to other location: Time: 05/07/2019 18:03:00, Patient to be transferred to [facility] emergency department, accepting physician Dr. Brandt/Bhumi orthopedics.. Patient was given the following educational materials: Laceration Care, Adult, Stitches, Gena, or Adhesive Wound Closure, Skin Tear Care. Counseled: Patient, Family, Regarding diagnosis, Regarding diagnostic results, Regarding treatment plan, Regarding prescription, Patient indicated understanding of instructions. DISCHARGE INFORMATION: Discharge Disposition: Discharge/Transfer to Another Hospital Discharge Location: [facility] PATIENT EDUCATION INFORMATION Instructions: Skin Tear Care; Stitches, Groves, or Adhesive Wound Closure; Laceration Care, Adult Follow-Up: DIAGNOSIS: Patient Understands: Comment: [facility] ED Note - Physicianon 2018 ED Note [...] 10. Patient states he was using a safety engineer pressure vessels, was standing on top of, he slipped [...] Constant Indicator, Patient to be transferred to [facility] emergency department, accepting physician Dr. Brandt/Bhumi orthopedics.. [...] having him be evaluated by orthopedics at [facility]. We'll start an IV, give him one and half grams of Unasyn. I discussed the patient the potential complications with this type injury, he indicated understanding and agreement. I contacted Dr. Tripathi, approximately 3:30 PM, we discussed the patient's injury, and x-ray findings, he agreed with accepting the patient, so we will contact the emergency department. Discussed with Dr. Obrien, attending at [facility], patient's history, presentation, x-ray findings and physical [...] Plan Diagnosis Laceration of forearm, left, complicated (ZHJ74-SN S51.812A, Discharge, Medical) High-pressure injection injury of finger (RBN08-JG S69.80XA, Admitting, Medical) Laceration of forearm, left, complicated (SPD61-UW S51.812A, Admitting, Medical) Skin tear of hand without complication (BWU80-MR S61.419A, Admitting, Medical) Skin tear of hand without complication (JVR15-MO S61.419A, Discharge, Medical) This was a high pressure injury to the left forearm, extension to distal forearm and wrist Plan Condition: Improved, Stable. Disposition: Transfer to other location: Time: 05/07/2019 18:03:00, Patient to be transferred to [facility] emergency department, accepting physician Dr. Brandt/Bhumi orthopedics.. Patient was given the following educational materials: Laceration Care, Adult, Stitches, Gena, or Adhesive Wound Closure, Skin Tear Care. [...] Signed on: 05/10/2019 16:21 EDT] José Estevez [facility] ED Note-Nursingon 05-07-2019 ED Note-Nursing Pt presents to work r/t laceration to left forearm. Pt reports he cut his arm on a piece of steel at work. Radial pulses strong and equal. Pt reports pain is about a 6/10. Resps even and unlabored, pt stable at this time. [facility] ED Patient Education Noteon 05-07-2019 ED [...] or a bad smell. Medicines ? Take brth-uld-ermdsvh and prescription medicines only as told by [...] 04/25/2002 Document Revised: 03/26/2017 Document Reviewed: 06/20/2016 [employer] Patient Education ? 2019 [employer] Stitches, Groves, or Adhesive Wound Closure Health care providers [...] often used to close surgical cuts (incisions). Groves are faster to use than sutures, and they cause less skin reaction. Groves need to be removed using a tool [...] 04/25/2002 Document Revised: 03/29/2017 Document Reviewed: 01/07/2015 [employer] Patient Education ? 2018 [employer]. Laceration Care, Adult A laceration is a [...] of the skin. General Instructions ? Take gvae-hra-rqlybfz and prescription medicines only as told by [...] 07/31/2006 Document Revised: 12/30/2016 Document Reviewed: 07/27/2015 [employer] Patient Education ? 2019 [employer] Normal [facility] ED Patient Summaryon 24-2 019 ED Patient Summary [facility] - Emergency Department [address] [place], [place] [id number] PATIENT DISCHARGE INSTRUCTIONS Patient Information Name: TYLER TORRES Age: 74 Years Date of : 1945 Reason For Visit: Arm laceration; LEFT ARM LAC Arrival Time: 05/07/2019 13:31:10 Primary Care Physician: ARMANDO RICHARDS Attending Physician: Don Lafleur MD Comment: Visit Diagnosis: Diagnoses This Visit Arm laceration ([id number]) High-pressure injection injury of finger (S69.80XA) Laceration [...] alcohol and/or drug addiction problems; contact the [facility] 06/03 Crisis Hotline -Paij 3NJJB dm [phone]. If you received any narcotics, sedation, or [...] and treatment you received today in the [facility] Emergency Department were for an urgent problem and are not intended as complete care. It is important for you to follow up with a doctor, nurse practitioner, or physician?s engineer first assistant for ongoing care. If your symptoms become [...] so we can reach you if necessary. [facility] Emergency Department has provided you with a complete list of medications post discharge. Please inform your cash controller/provider of your visit and for further instruction [...] or a bad smell. Medicines ? Take upfd-dwa-vwwgqca and prescription medicines only as told by [...] 04/25/2002 Document Revised: 03/26/2017 Document Reviewed: 06/20/2016 [employer] Patient Education ? 2019 [employer] Stitches, Gena, or Adhesive Wound Closure Health care providers [...] and an instrument secures the edges together. Groves are often used to close surgical cuts (incisions). Groves are faster to use than sutures, and they cause less skin reaction. Groves need to be removed using a tool [...] 04/25/2002 Document Revised: 03/29/2017 Document Reviewed: 01/07/2015 [employer] Patient Education ? 2018 [employer] Laceration Care, Adult A laceration is [...] of the skin. General Instructions ? Take dlml-stw-kiqvlth and prescription medicines only as told by [...] 07/31/2006 Document Revised: 12/30/2016 Document Reviewed: 07/27/2015 [employer] Patient Education ? 2019 [employer] Viruses or Bacteria What?s got you sick? [...] Disease Control and Prevention April 2014 Normal [facility] PROTHROMBIN TIMEon 9 INR Coag (PPP) [Relative time] 0.92 {INR} Normal 0.91-1.16 The [facility] Comment on above: Order Comment: No: D [...] 1995;[id number]. Performed By: #### 5 [id number] #### [facility] [address] PT Coag (PPP) [Time] 12.3 s Normal 12.3-14.8 [facility] Comment on above: Order Comment: No: D o not add to previous draw Result Comment: ALL RESULTS MUST BE INTERPRETED WITH RESPECT TO BLOOD DRAWING ARTIFACT OR DILUTION ERROR OF ANTICOAGULANT AT THE TIME OF SAMPLING. Performed By: #### 5 [id number] #### [facility] [address] [facility]. [address] TYPE AND SCREENon 05-07-2019 ABO INTERPRETATION A Normal [facility] Comment on above: Performed By: #### 6 [id number] #### [facility] [address] [facility]. [address] RH INTERPRETATION Positive Normal [facility] Comment on above: Performed By: #### 6 [id number] #### [facility] [address] Transfer Noteon 05-07-2019 Transfer Note [id number] [facility] Transfer Note 180 - [facility] ar rived 181 - [facility] departed to [facility] ER copy of the patient's chart and xray disc were sent; the home medication list has been documented in the chart as well [Electronically Signed on: 05/07/2019 18:30 EDT] Rupal Perez [Verified on: 05/07/2019 18:30 EDT] Rupal Perez [facility] XR Forearm 2 Views Lefton XR Forearm [...] Follow up as needed. Final Dictated by: Boyd METZ, Klever Ross Dictated DT/TM: 05/07/19 2:35 Signed (Electronic Signature): Boyd METZ, Klever S 05/07/19 4:40 pm Technologist: JOSE [facility] No Panel Information [facility] Vital Signs Date Time Vital Sign Value Performing Clinician Facility 03-13-2025 13:34-0400 Body height 180.3 cm Manan Baker DPM Work Phone: [facility] 03-13-2025 13:34-0400 Body mass index (BMI) [Ratio] 23.71 kg/m2 Manan Baker DPM Work Phone: [facility] 03-13-2025 13:34-0400 Body weight 77.11 kg Manan Baker DPM Work Phone: [facility] 03-13-2025 13:34-0400 Respiratory rate 18 /min Manan Baker DPM Work Phone: [facility] 03-10-2025 14:00-0400 Body mass index (BMI) [Ratio] 25.67 kg/m2 Armando Richards MD Work Phone: [facility] 03-10-2025 14:00-0400 Body weight 76.57 kg Armando Richards MD Work Phone: [facility] 03-10-2025 14:00-0400 Diastolic blood pressure 86 mm[Hg] Armando Richards MD Work Phone: [facility] 03-10-2025 14:00-0400 Heart rate 87 /min Armando Richards MD Work Phone: [facility] 03-10-2025 14:00-0400 Systolic blood pressure 99 mm[Hg] Armando Richards MD Work Phone: [facility] 12-24-2024 09:43-0400 Body height 172.7 cm Armando Richards MD Work Phone: [facility] 12-24-2024 09:43-0400 Body mass index (BMI) [Ratio] 26.76 kg/m2 Armando Richards MD Work Phone: [facility] 12-24-2024 09:43-0400 Body weight 79.83 kg Armando Richards MD Work Phone: [facility] 12-24-2024 09:43-0400 Diastolic blood pressure 72 mm[Hg] Armando Richards MD Work Phone: [facility] 12-24-2024 09:43-0400 Heart rate 90 /min Armando Richards MD Work Phone: [facility] 12-24-2024 09:43-0400 Systolic blood pressure 123 mm[Hg] Armando Richards MD Work Phone: [facility] 12-04-2024 12:28-0400 Body height 172.7 cm Pacc 1 Other Phone: [facility] 12-04-2024 12:28-0400 Body mass index (BMI) [Ratio] 26.15 kg/m2 Pacc 1 Other Phone: [facility] 12-04-2024 12:28-0400 Body temperature 97.81 [degF] Pacc 1 Other Phone: [facility] 12-04-2024 12:28-0400 Body weight 78 kg Pacc 1 Other Phone: [facility] 12-04-2024 12:28-0400 Diastolic blood pressure 68 mm[Hg] Pacc 1 Other Phone: [facility] 12-04-2024 12:28-0400 Heart rate 76 /min Pacc 1 Other Phone: [facility] 12-04-2024 12:28-0400 Respiratory rate 18 /min Pacc 1 Other Phone: [facility] 12-04-2024 12:28-0400 SaO2% (BldA) [Mass fraction] 100 % Pacc 1 Other Phone: [facility] 12-04-2024 12:28-0400 Systolic blood pressure 117 mm[Hg] Pacc 1 Other Phone: [facility] 12-02-2024 10:54-0400 Body mass index (BMI) [Ratio] 26.65 kg/m2 Adriana Lopez DO Work Phone: [facility] 12-02-2024 10:54-0400 Body weight 78.93 kg Adriana Lopez DO Work Phone: [facility] 12-02-2024 10:54-0400 Diastolic blood pressure 71 mm[Hg] Adriana Lopez DO [facility] 12-02-2024 10:54-0400 Heart rate 76 /min Adriana Lopez DO Work Phone: [facility] 12-02-2024 10:54-0400 Systolic blood pressure 118 mm[Hg] Adriana Lopez DO Work Phone: [facility] 11-29-2024 09:42-0400 Body mass index (BMI) [Ratio] 27.08 kg/m2 Armando Richards MD Work Phone: [facility] 11-29-2024 09:42-0400 Body weight 80.2 kg Armando Richards MD Work Phone: [facility] [employer] 11-29-2024 09:42-0400 Diastolic blood pressure 61 mm[Hg] Armando Richards MD Work Phone: [facility] 11-29-2024 09:42-0400 Heart rate 84 /min Armando Richards MD Work Phone: [facility] 11-29-2024 09:42-0400 Systolic blood pressure 101 mm[Hg] Armando Richards MD Work Phone: [facility] 11-01-2024 14:38-0400 Body height 172.1 cm Armando Richards MD Work Phone: [facility] 11-01-2024 14:38-0400 Body mass index (BMI) [Ratio] 26.59 kg/m2 Armando Richards MD Work Phone: [facility] 11-01-2024 14:38-0400 Body temperature 97.7 [degF] Armando Richards MD Work Phone: [facility] 11-01-2024 14:38-0400 Body weight 78.74 kg Armando Richards MD Work Phone: [facility] 11-01-2024 14:38-0400 Diastolic blood pressure 72 mm[Hg] Armando Richrads MD Work Phone: [facility] 11-01-2024 14:38-0400 Heart rate 81 /min Armando Richards MD Work Phone: [facility] 11-01-2024 14:38-0400 Systolic blood pressure 117 mm[Hg] Armando Richards MD Work Phone: [facility] 10-24-2024 13:03-0400 Body height 180.3 cm Manan Baker DPM Work Phone: [facility] 10-24-2024 13:03-0400 Body mass index (BMI) [Ratio] 23.71 kg/m2 Manan Baker DPM Work Phone: [facility] 10-24-2024 13:03-0400 Body weight 77.11 kg Manan aBker DPM Work Phone: [facility] 10-24-2024 13:03-0400 Respiratory rate 18 /min Manan Baker DPM Work Phone: [facility] 10-16-2024 11:20-0500 Blood Pressure Location [facility] 10-16-2024 11:20-0500 Diastolic blood pressure 58 mm[Hg] [facility] 10-16-2024 11:20-0500 Heart rate 1 /min [facility] 10-16-2024 11:20-0500 Respiratory rate 18 /min [facility] 10-16-2024 11:20-0500 Systolic blood pressure 90 mm[Hg] [facility] 08-15-2024 13:11-0500 Body height 180.3 cm Manan Baker DPM Work Phone: [facility] 08-15-2024 13:11-0500 Body mass index (BMI) [Ratio] 23.71 kg/m2 Manan Baker DPM Work Phone: [facility] 08-15-2024 13:11-0500 Body weight 77.11 kg Manan Baker DPM Work Phone: [facility] 08-15-2024 13:11-0500 Respiratory rate 18 /min Manan Baker DPM Work Phone: [facility] 07-23-2024 14:42-0500 Diastolic blood pressure 53 mm[Hg] Armando Richards MD Work Phone: [facility] 07-23-2024 14:42-0500 Heart rate 85 /min Armando Richards MD Work Phone: [facility] 07-23-2024 14:42-0500 Systolic blood pressure 83 mm[Hg] Armando Richards MD Work Phone: [facility] 07-22-2024 13:20-0500 Body height 172.7 cm Pacc 3 Work Phone: [facility] 07-22-2024 13:20-0500 Body mass index (BMI) [Ratio] 25.36 kg/m2 Pacc 3 Work Phone: [facility] 07-22-2024 13:20-0500 Body temperature 97.7 [degF] Pacc 3 Work Phone: [facility] 07-22-2024 13:20-0500 Body weight 75.66 kg Pacc 3 Work Phone: [facility] 07-22-2024 13:20-0500 Diastolic blood pressure 59 mm[Hg] Pacc 3 Work Phone: [facility] 07-22-2024 13:20-0500 Heart rate 81 /min Pacc 3 Work Phone: [facility] 07-22-2024 13:20-0500 SaO2% (BldA) [Mass fraction] 96 % Pacc 3 Work Phone: [facility] 07-22-2024 13:20-0500 Systolic blood pressure 92 mm[Hg] Pacc 3 Work Phone: [facility] 06-06-2024 14:35-0400 Body height 180.3 cm Manan Baker DPM Work Phone: [facility] 06-06-2024 14:35-0400 Body mass index (BMI) [Ratio] 23.71 kg/m2 Manan Baker DPM Work Phone: [facility] 06-06-2024 14:35-0400 Body weight 77.11 kg Manan Baker DPM Work Phone: [facility] 06-06-2024 14:35-0400 Diastolic blood pressure 79 mm[Hg] Manan Baker DPM Work Phone: [facility] 06-06-2024 14:35-0400 Heart rate 81 /min Manan Baker DPM Work Phone: [facility] 06-06-2024 14:35-0400 Systolic blood pressure 128 mm[Hg] Manan Baker DPM Work Phone: [facility] 05-29-2024 09:09-0400 Body height 172.1 cm Armando Richards MD Work Phone: [facility] 05-29-2024 09:09-0400 Body mass index (BMI) [Ratio] 25.49 kg/m2 Armando Richards MD Work Phone: [facility] 05-29-2024 09:09-0400 Body weight 75.48 kg Armando Richards MD Work Phone: [facility] 05-29-2024 09:09-0400 Diastolic blood pressure 64 mm[Hg] Armando Richards MD Work Phone: [facility] 05-29-2024 09:09-0400 Heart rate 75 /min Armando Richards MD Work Phone: [facility] 05-29-2024 09:09-0400 Systolic blood pressure 110 mm[Hg] Armando Richards MD Work Phone: [facility] 05-28-2024 09:14-0400 Body mass index (BMI) [Ratio] 26 kg/m2 Juilo Quispe MD Work Phone: [facility] 05-28-2024 09:14-0400 Body weight 75.3 kg Julio Quispe MD Work Phone: [facility] 05-28-2024 09:14-0400 Diastolic blood pressure 68 mm[Hg] Julio Quispe MD Work Phone: [facility] 05-28-2024 09:14-0400 Heart rate 54 /min Julio Quispe MD Work Phone: [facility] 05-28-2024 09:14-0400 SaO2% (BldA) [Mass fraction] 97 % Julio Quispe MD Work Phone: [facility] 05-28-2024 09:14-0400 Systolic blood pressure 106 mm[Hg] Julio Quispe MD Work Phone: [facility] 04-25-2024 09:16-0400 Body mass index (BMI) [Ratio] 26 kg/m2 Jocelyn Hatfield MD Work Phone: [facility] 04-25-2024 09:16-0400 Body weight 75.3 kg Jocelyn Hatfield MD Work Phone: [facility] 04-25-2024 09:16-0400 Diastolic blood pressure 55 mm[Hg] Jocelyn Hatfield MD Work Phone: [facility] 04-25-2024 09:16-0400 Heart rate 73 /min Jocelyn Hatfield MD Work Phone: [facility] 04-25-2024 09:16-0400 Systolic blood pressure 101 mm[Hg] Jocelyn Hatfield MD Work Phone: [facility] 03-25-2024 19:20-0400 Diastolic blood pressure 79 mm[Hg] Armando Richards MD Work Phone: [facility] 03-25-2024 19:20-0400 Heart rate 86 /min Armando Richards MD Work Phone: [facility] 03-25-2024 19:20-0400 SaO2% (BldA) [Mass fraction] 98 % Armando Richards MD Work Phone: [facility] 03-25-2024 19:20-0400 Systolic blood pressure 112 mm[Hg] Armando Richards MD Work Phone: [facility] 03-25-2024 19:15-0400 Body temperature 97.5 [degF] Armando Richards MD Work Phone: [facility] 03-25-2024 19:15-0400 Respiratory rate 18 /min Armando Richards MD Work Phone: [facility] 02-21-2024 10:51-0400 Body mass index (BMI) [Ratio] 26.94 kg/m2 Armando Richards MD Work Phone: [facility] 02-21-2024 10:51-0400 Body weight 78.02 kg Armando Richards MD Work Phone: [facility] 02-21-2024 10:51-0400 Diastolic blood pressure 81 mm[Hg] Armando Richards MD Work Phone: [facility] 02-21-2024 10:51-0400 Heart rate 133 /min Armando Richards MD Work Phone: [facility] 02-21-2024 10:51-0400 Systolic blood pressure 123 mm[Hg] Armando Richards MD Work Phone: [facility] 12-26-2023 08:46-0400 Blood Pressure Location Beatrice [facility] 12-26-2023 08:46-0400 Diastolic blood pressure 81 mm[Hg] Beatrice Orzech [facility] 12-26-2023 08:46-0400 Heart rate 82 /min Beatrice Orzech [facility] 12-26-2023 08:46-0400 Respiratory rate 16 /min Beatrice Orzech [facility] 12-26-2023 08:46-0400 Systolic blood pressure 133 mm[Hg] Beatrice Orzech [facility] 11-27-2023 10:11-0400 Body mass index (BMI) [Ratio] 27.14 kg/m2 Armando Richards MD Work Phone: [facility] 11-27-2023 10:11-0400 Body weight 78.02 kg Armando Richards MD Work Phone: [facility] 11-27-2023 10:11-0400 Diastolic blood pressure 80 mm[Hg] Armando Richards MD Work Phone: [facility] 11-27-2023 10:11-0400 Heart rate 118 /min Armando Richards MD Work Phone: [facility] 11-27-2023 10:11-0400 Systolic blood pressure 114 mm[Hg] Armando Richards MD Work Phone: [facility] 11-17-2023 11:03-0400 Body height 172.7 cm Hung Jacobsen MD Work Phone: [facility] 11-17-2023 11:03-0400 Body weight 80.29 kg Hung Jacobsen MD Work Phone: [facility] 10-04-2023 09:55-0500 Blood Pressure Location Olu Lue [facility] 10-04-2023 09:55-0500 Diastolic blood pressure 88 mm[Hg] Olu Lue [facility] 10-04-2023 09:55-0500 Systolic blood pressure 132 mm[Hg] Olu Lue [facility] 09-19-2023 13:26-0500 Body mass index (BMI) [Ratio] 26.98 kg/m2 Armando Richards MD Work Phone: [facility] 09-19-2023 13:26-0500 Body weight 77.56 kg Armando Richards MD Work Phone: [facility] 09-19-2023 13:26-0500 Diastolic blood pressure 89 mm[Hg] Armando Richards MD Work Phone: [facility] 09-19-2023 13:26-0500 Heart rate 96 /min Armando Richards MD Work Phone: [facility] 09-19-2023 13:26-0500 Systolic blood pressure 134 mm[Hg] Armando Richards MD Work Phone: [facility] 07-31-2023 10:56-0500 Body height 172.7 cm [facility] 1 Other Phone: [facility] 07-31-2023 10:56-0500 Body temperature 98.6 [degF] P[facility] 1 Other Phone: [facility] 07-31-2023 10:56-0500 Body weight 81.19 kg P[facility] 1 Other Phone: [facility] 07-31-2023 10:56-0500 Diastolic blood pressure 96 mm[Hg] [facility] 1 Other Phone: [facility] 07-31-2023 10:56-0500 Heart rate 97 /min P[facility] 1 Other Phone: [facility] 07-31-2023 10:56-0500 Respiratory rate 20 /min Pacc 1 Other Phone: [facility] 07-31-2023 10:56-0500 SaO2% (BldA) [Mass fraction] 100 % [facility] 1 Other Phone: [facility] 07-31-2023 10:56-0500 Systolic blood pressure 144 mm[Hg] [facility] 1 Other Phone: [facility] 05-04-2023 13:27-0400 Diastolic blood pressure 88 mm[Hg] MD Armando Richards Work Phone: [facility] 05-04-2023 13:27-0400 Heart rate 77 /min MD Armando Richards Work Phone: [facility] 05-04-2023 13:27-0400 Respiratory rate 16 /min MD Armando Richards Work Phone: [facility] 05-04-2023 13:27-0400 SaO2% (BldA) [Mass fraction] 91 % MD Armando Richards Work Phone: [facility] 05-04-2023 13:27-0400 Systolic blood pressure 140 mm[Hg] MD Armando Richards Work Phone: [facility] 05-04-2023 11:52-0400 Body height 172.72 cm MD Armando Richards Work Phone: [facility] 05-04-2023 11:52-0400 Body temperature 98.5 [degF] MD Armando Richards Work Phone: [facility] 05-04-2023 11:52-0400 Body weight 79.37 kg MD Armando Richards Work Phone: [facility] 05-03-2023 10:31-0400 Blood Pressure Location [facility] 05-03-2023 10:31-0400 Body temperature 98.42 [degF] [facility]lu L[facility] 05-03-2023 10:31-0400 Diastolic blood pressure 78 mm[Hg] Olu Lue [facility] 05-03-2023 10:31-0400 Heart rate 84 /min Olu Lue [facility] 05-03-2023 10:31-0400 Systolic blood pressure 122 mm[Hg] [facility] L[facility] 02-02-2023 09:35-0400 Diastolic blood pressure 91 mm[Hg] MD Armando Richards Work Phone: [facility] 02-02-2023 09:35-0400 Heart rate 77 /min MD Armando Richards Work Phone: [facility] 02-02-2023 09:35-0400 Respiratory rate 16 /min MD Armando Richards Work Phone: [facility] 02-02-2023 09:35-0400 SaO2% (BldA) [Mass fraction] 97 % MD Armando Richards Work Phone: [facility] 02-02-2023 09:35-0400 Systolic blood pressure 146 mm[Hg] MD Armando Richards Work Phone: [facility] 02-02-2023 07:09-0400 Body height 172.72 cm MD Armando Richards Work Phone: [facility] 02-02-2023 07:09-0400 Body temperature 97.7 [degF] MD Armando Richards Work Phone: [facility] 02-02-2023 07:09-0400 Body weight 79.37 kg MD Armando Richards Work Phone: [facility] 01-18-2023 09:15-0400 Blood Pressure Location [facility] 01-18-2023 09:15-0400 Diastolic blood pressure 72 mm[Hg] Olu L[facility] 01-18-2023 09:15-0400 Heart rate 68 /min Olu Lue [facility] 01-18-2023 09:15-0400 Respiratory rate 16 /min Olu Lue [facility] 01-18-2023 09:15-0400 Systolic blood pressure 134 mm[Hg] [facility] 11-28-2022 10:00-0400 Body height 172.72 cm Valdo Goode Other [facility] [facility] Other 11-28-2022 10:00-0400 Diastolic blood pressure 80 mm[Hg] Valdo Goode Other [facility] Other 11-28-2022 10:00-0400 SaO2% (BldA) [Mass fraction] 93 % Valdo Goode Other [facility] Other 11-28-2022 10:00-0400 Systolic blood pressure 130 mm[Hg] Valdo Goode Other [facility] Other 11-14-2022 11:00-0400 Body height 172.72 cm Valdo Goode Other [facility] Other 11-14-2022 11:00-0400 Body mass index (BMI) [Ratio] 28.58 kg/m2 Valdo Goode Other [facility] Other 11-14-2022 11:00-0400 Body weight 85.28 kg Valdo Goode Other [facility] Other 11-14-2022 11:00-0400 Diastolic blood pressure 80 mm[Hg] Valdo Goode Other [facility] Other 11-14-2022 11:00-0400 SaO2% (BldA) [Mass fraction] 97 % Valdo Goode Other [facility] Other 11-14-2022 11:00-0400 Systolic blood pressure 140 mm[Hg] Valdo Espinalky Other [facility] Other 11-07-2022 11:25-0400 Diastolic blood pressure 78 mm[Hg] MD Armando Richards Work Phone: [facility] 11-07-2022 11:25-0400 Heart rate 74 /min MD Armando Richards Work Phone: [facility] 11-07-2022 11:25-0400 Respiratory rate 20 /min MD Armando Richards Work Phone: [facility] 11-07-2022 11:25-0400 SaO2% (BldA) [Mass fraction] 96 % MD Armando Richards Work Phone: [facility] 11-07-2022 11:25-0400 Systolic blood pressure 132 mm[Hg] MD Armando Richards Work Phone: [facility] 11-07-2022 09:55-0400 Body height 175.26 cm MD Armando Richards Work Phone: [facility] 11-07-2022 09:55-0400 Body temperature 97.7 [degF] MD Armando Richards Work Phone: [facility] 11-07-2022 09:55-0400 Body weight 81.19 kg MD Armando Richards Work Phone: [facility] 09-13-2022 12:15-0500 Body height 172.72 cm Valdo Rupa Other [facility] Other 09-13-2022 12:15-0500 Diastolic blood pressure 60 mm[Hg] Valdochris Goode Other [facility] Other 09-13-2022 12:15-0500 SaO2% (BldA) [Mass fraction] 97 % Valdochris Goode Other [facility] Other 09-13-2022 12:15-0500 Systolic blood pressure 120 mm[Hg] Valdochris Goode Other [facility] Other 09-02-2022 11:45-0500 Body height 172.72 cm Valdochris Goode Other [facility] Other 09-02-2022 11:45-0500 Body mass index (BMI) [Ratio] 27.55 kg/m2 Valdochris Goode Other [facility] Other 09-02-2022 11:45-0500 Body weight 82.19 kg Valdo Goode Other [facility] Other 09-02-2022 11:45-0500 Diastolic blood pressure 78 mm[Hg] Valdo Goode Other [facility] Other 09-02-2022 11:45-0500 SaO2% (BldA) [Mass fraction] 94 % Valdo Goode Other [facility] Other 09-02-2022 11:45-0500 Systolic blood pressure 124 mm[Hg] Valdo Goode Other [facility] Other 08-10-2022 11:45-0500 Body height 172.72 cm Temi Dean Other [facility] Other 08-10-2022 11:45-0500 Diastolic blood pressure 76 mm[Hg] Temi Daen Other [facility] Other 08-10-2022 11:45-0500 Respiratory rate 18 /min Temi Dean Other [facility] Other 08-10-2022 11:45-0500 SaO2% (BldA) [Mass fraction] 96 % Temi Dena Other [facility] Other 08-10-2022 11:45-0500 Systolic blood pressure 134 mm[Hg] Temi Dean Other [facility] Other 07-12-2022 16:45-0500 Body height 172.72 cm Temi Dean Other [facility] Other 07-12-2022 16:45-0500 Diastolic blood pressure 84 mm[Hg] Temi Dean Other [facility] Other 07-12-2022 16:45-0500 Respiratory rate 18 /min Temi Dean Other [facility] Other 07-12-2022 16:45-0500 SaO2% (BldA) [Mass fraction] 97 % Temi Dean Other [facility] Other 07-12-2022 16:45-0500 Systolic blood pressure 148 mm[Hg] Temi Dean Other [facility] Other 07-06-2022 11:40-0500 Blood Pressure Location [facility] 07-06-2022 11:40-0500 Diastolic blood pressure 80 mm[Hg] [facility] 07-06-2022 11:40-0500 Heart rate 70 /min [facility] 07-06-2022 11:40-0500 Respiratory rate 16 /min [facility] 07-06-2022 11:40-0500 Systolic blood pressure 132 mm[Hg] [facility] 06-15-2022 14:00-0400 Body height 172.72 cm Valdo Goode Other [facility] Other 06-15-2022 14:00-0400 Body mass index (BMI) [Ratio] 26.09 kg/m2 Valdo Goode Other [facility] Other 06-15-2022 14:00-0400 Body weight 77.84 kg Valdo Goode Other [facility] Other 06-15-2022 14:00-0400 Diastolic blood pressure 80 mm[Hg] Valdo Goode Other [facility] Other 06-15-2022 14:00-0400 SaO2% (BldA) [Mass fraction] 97 % Valdo Goode Other [facility] Other 06-15-2022 14:00-0400 Systolic blood pressure 140 mm[Hg] Valdo Goode Other [facility] Other 05-10-2022 12:45-0400 Body height 172.72 cm Valdo Goode Other [facility] Other 05-10-2022 12:45-0400 Body mass index (BMI) [Ratio] 25.88 kg/m2 Valdo Goode Other [facility] Other 05-10-2022 12:45-0400 Body weight 77.2 kg Valdo Goode Other [facility] Other 05-10-2022 12:45-0400 Diastolic blood pressure 70 mm[Hg] Valdo Goode Other [facility] Other 05-10-2022 12:45-0400 SaO2% (BldA) [Mass fraction] 99 % Valdo Goode Other [facility] Other 05-10-2022 12:45-0400 Systolic blood pressure 138 mm[Hg] Valdo Goode Other [facility] Other 04-27-2022 11:26-0400 Blood Pressure Location [facility]lu L[facility] 04-27-2022 11:26-0400 Diastolic blood pressure 76 mm[Hg] [facility] 04-27-2022 11:26-0400 Heart rate 70 /min [facility]lu Lue [facility] 04-27-2022 11:26-0400 Respiratory rate 16 /min Olu Lue [facility] 04-27-2022 11:26-0400 Systolic blood pressure 109 mm[Hg] [facility] 04-11-2022 10:15-0400 Body height 172.72 cm Valdochris Goode Other [facility] Other 04-11-2022 10:15-0400 Body mass index (BMI) [Ratio] 25.63 kg/m2 Valdo Goode Other [facility] Other 04-11-2022 10:15-0400 Body weight 76.48 kg Valdo Goode Other [facility] Other 04-11-2022 10:15-0400 Diastolic blood pressure 70 mm[Hg] Valdo Goode Other [facility] Other 04-11-2022 10:15-0400 SaO2% (BldA) [Mass fraction] 97 % Valdo Goode Other [facility] Other 04-11-2022 10:15-0400 Systolic blood pressure 140 mm[Hg] Valdo Goode Other [facility] Other 02-09-2022 11:30-0400 Body height 172.72 cm Sharda Patinocody Other [facility] Other 02-09-2022 11:30-0400 Body mass index (BMI) [Ratio] 24.42 kg/m2 Sharda Stubbsалександр Other [facility] Other 02-09-2022 11:30-0400 Body weight 72.85 kg Sharda Stubbsdavecody Other [facility] Other 01-31-2022 15:30-0400 Body height 172.72 cm Valdo Goode Other [facility] Other 01-31-2022 15:30-0400 Body mass index (BMI) [Ratio] 24.17 kg/m2 Valdo Goode Other [facility] Other 01-31-2022 15:30-0400 Body weight 72.12 kg Valdo Goode Other [facility] Other 01-31-2022 15:30-0400 Diastolic blood pressure 60 mm[Hg] Valdo Goode Other [facility] Other 01-31-2022 15:30-0400 SaO2% (BldA) [Mass fraction] 98 % Valdo Goode Other [facility] Other 01-31-2022 15:30-0400 Systolic blood pressure 122 mm[Hg] Valdo Goode Other [facility] Other 01-26-2022 15:27-0400 Body height 172.7 cm Enzo White DO Work Phone: [facility] 01-26-2022 15:27-0400 Body weight 76.2 kg Enzo Eva DO Work Phone: [facility] 12-29-2021 12:15-0400 Body height 172.72 cm Sharda Elsалександр Other [facility] Other 12-29-2021 12:15-0400 Body mass index (BMI) [Ratio] 25.13 kg/m2 Sharda Stubbsалександр Other [facility] Other 12-29-2021 12:15-0400 Body weight 74.98 kg Sharda Elsалександр Other [facility] Other 12-14-2021 10:45-0400 Body height 172.72 cm Valdo Goode Other [facility] Other 12-14-2021 10:45-0400 Body mass index (BMI) [Ratio] 24.78 kg/m2 Valdo Goode Other [facility] Other 12-14-2021 10:45-0400 Body weight 73.94 kg Valdo Goode Other [facility] Other 12-14-2021 10:45-0400 Diastolic blood pressure 70 mm[Hg] Valdo Goode Other [facility] Other 12-14-2021 10:45-0400 SaO2% (BldA) [Mass fraction] 98 % Valdo Goode Other [facility] Other 12-14-2021 10:45-0400 Systolic blood pressure 122 mm[Hg] Valdo Gooed Other [facility] Other 11-25-2021 16:00-0400 Body height 172.72 cm Valdo Goode Other [facility] Other 11-25-2021 16:00-0400 Body mass index (BMI) [Ratio] 25.48 kg/m2 Valdo Goode Other [facility] Other 11-25-2021 16:00-0400 Body weight 76.02 kg Valdo Goode Other [facility] Other 11-25-2021 16:00-0400 Diastolic blood pressure 66 mm[Hg] Valdo Goode Other [facility] Other 11-25-2021 16:00-0400 SaO2% (BldA) [Mass fraction] 97 % Vadlo Goode Other [facility] Other 11-25-2021 16:00-0400 Systolic blood pressure 128 mm[Hg] Valdo Goode Other [facility] Other 11-17-2021 11:15-0400 Body height 172.72 cm Sharda Brown Other [facility] Other 11-17-2021 11:15-0400 Body mass index (BMI) [Ratio] 30.1 kg/m2 Sharda Brown Other [facility] Other 11-17-2021 11:15-0400 Body weight 89.81 kg Sharda Brown Other [facility] Other 11-01-2021 16:00-0400 Body height 172.72 cm Sharda Brown Other [facility] Other 11-01-2021 16:00-0400 Body mass index (BMI) [Ratio] 30.1 kg/m2 Sharda Brown Other [facility] Other 11-01-2021 16:00-0400 Body weight 89.81 kg Sharda Brown Other [facility] Other 10-18-2021 03:29-0500 Body temperature 97.3 [degF] MD Armando Richards Work Phone: [facility] 10-18-2021 03:29-0500 Diastolic blood pressure 68 mm[Hg] MD Armando Richards Work Phone: [facility] 10-18-2021 03:29-0500 Heart rate 86 /min MD Armando Richards Work Phone: [facility] 10-18-2021 03:29-0500 Respiratory rate 16 /min MD Armando Richards Work Phone: [facility] 10-18-2021 03:29-0500 SaO2% (BldA) [Mass fraction] 94 % MD Armando Richards Work Phone: [facility] 10-18-2021 03:29-0500 Systolic blood pressure 144 mm[Hg] MD Armando Richards Work Phone: [facility] 10-17-2021 06:00-0500 Body weight 78.5 kg MD Armando Richards Work Phone: [facility] 10-12-2021 13:24-0500 Body height 172.72 cm MD Armando Richards Work Phone: [facility] 09-23-2021 12:19-0500 Inhaled oxygen flow rate 2 L/min MD Armando Richards Work Phone: [facility] 09-20-2021 16:40-0500 Body mass index (BMI) [Ratio] 28.1 kg/m2 MD Armando Richards Work Phone: [facility] 09-20-2021 11:17-0500 Body temperature 98.1 [degF] MD Armando Richards Work Phone: [facility] 09-20-2021 11:17-0500 Diastolic blood pressure 78 mm[Hg] MD Armando Richards Work Phone: [facility] 09-20-2021 11:17-0500 Heart rate 77 /min MD Armando Richards Work Phone: [facility] 09-20-2021 11:17-0500 Respiratory rate 20 /min MD Armando Richards Work Phone: [facility] 09-20-2021 11:17-0500 SaO2% (BldA) [Mass fraction] 97 % MD Armando Richards Work Phone: [facility] 09-20-2021 11:17-0500 Systolic blood pressure 118 mm[Hg] MD Armando Richards Work Phone: [facility] 09-17-2021 09:26-0500 Inhaled oxygen flow rate 1 L/min MD Armando Richards Work Phone: [facility] 09-15-2021 14:38-0500 Body height 173.99 cm MD Armando Richards Work Phone: [facility] 09-14-2021 06:54-0500 Body mass index (BMI) [Ratio] 27.7 kg/m2 MD Armando Richards Work Phone: [facility] 09-14-2021 06:54-0500 Body weight 84 kg MD Armando Richards Work Phone: [facility] 08-26-2021 15:45-0500 Body height 172.72 cm Sharda Stubbsалександр Other [facility] Other 08-26-2021 15:45-0500 Body mass index (BMI) [Ratio] 30.1 kg/m2 Sharda Brown Other [facility] Other 08-26-2021 15:45-0500 Body weight 89.81 kg Sharda Stubbsdavecody Other [facility] Other 07-28-2021 11:15-0500 Body height 172.72 cm Sharda Stubbsdavecody Other [facility] Other 07-28-2021 11:15-0500 Body mass index (BMI) [Ratio] 30.1 kg/m2 Sharda Elsалександр Other [facility] Other 07-28-2021 11:15-0500 Body weight 89.81 kg Sharda Brown Other [facility] Other Encounters Encounter Date Encounter Type Care Provider Facility Start: 05-21-2025 ambulatory Olu Candelariobrent Facility:[facility] Start: 05-09-2025 End: 05-09-2025 [facility] Comment on above: Lumbar degenerative disc disease Start: 04-10-2025 End: 04-10-2025 Refill [facility] Comment on above: Lumbar degenerative disc disease Start: 03-13-2025 End: 03-13-2025 Bamboo akash Baker DPM Work Phone: [facility] Start: 03-13-2025 End: 03-13-2025 Kristi Add2paperthom Baker DPM Work Phone: [facility] Start: 03-13-2025 End: 03-13-2025 Patient encounter procedure Manan Baker DPM Work Phone: [facility] Comment on above: Type 2 diabetes kimberly itus without complication, with long-term current use of insulin ([facility]) (Primary Dx); Pain due to onychomycosis of toenails of both feet; Venous insufficiency Start: 03-13-2025 End: 03-13-2025 ambulatory MANAN BAKER Not Available Start: 03-11-2025 End: 03-11-2025 Follow-up encounter Armando Richards MD Work Phone: [facility] Comment on above: X-ray knee right 3 v iews Start: 03-10-2025 End: 03-10-2025 Office outpatient visit 15 minutes Armando Richards MD Work Phone: [facility] Comment on above: Acute pain of both k nees (Primary Dx); Type 2 diabetes mellitus without complication, without long-term current use of insulin ([facility]) Start: 03-10-2025 End: 03-10-2025 Orders Only Armando Richards MD Work Phone: [facility] Comment on above: Lumbar degenerative disc disease Start: 03-07-2025 End: 03-10-2025 Refill Jackie Fabian LEWIS [facility] Comment on above: Type 2 diabetes kimberly itus without complication, without long- term current use of insulin ([facility]) (Primary Dx) Start: 02-10-2025 End: 02-10-2025 Refill Armando Richards MD Work Phone: [facility] Comment on above: Lumbar degenerative disc disease Start: 01-28-2025 End: 01-28-2025 Patient encounter procedure Hung Jacobsen MD Work Phone: Orthopaedics Comment on above: Aftercare following bilateral shoulder joint replacement surgery (Primary Dx) Start: 01-28-2025 End: 01-28-2025 ambulatory ARMANDO RICHARDS Facility:[facility] Start: 01-28-2025 End: 01-28-2025 Subsequent hospital visit by physician [facility] Work Phone: Radiology Comment on above: Chronic right should er pain [M25.511, G89.29] Start: 01-02-2025 End: 01-02-2025 ambulatory MANAN BAKER Not Available Start: 12-30-2024 End: 12-30-2024 Patient encounter procedure Lea Johnson RT(R) Radiology Start: 12-30-2024 End: 12-30-2024 Nursing evaluation of patient and report Boaz White RN Work Phone: Orthopedics Comment on above: Glenohumeral arthrit is, right (Primary Dx) Start: 12-30-2024 End: 12-30-2024 ambulatory Lea Johnson RT(R) Radiology Comment on above: Radiology XR Start: 12-30-2024 End: 12-30-2024 Subsequent hospital visit by physician Xr Long Work Phone: Radiology Comment on above: Chronic right should er pain [M25.511, G89.29] Start: 12-24-2024 End: 12-24-2024 Office outpatient visit 15 minutes Armando Richards MD Work Phone: [facility] Internal Medicine/Pediatrics Comment on above: Drug-induced constip ation (Primary Dx) Start: 12-24-2024 End: 12-24-2024 ambulatory DAVID [facility] Start: 12-23-2024 End: 12-24-2024 Telephone encounter Uyen Gresham [facility] Internal Medicine/Pediatrics Comment on above: Er Follow-up Start: 12-20-2024 End: 12-20-2024 Emergency department patient visit ARMANDO Preciado [facility] Start: 12-16-2024 End: 12-17-2024 ambulatory [facility] Facility:[facility] Start: 12-13-2024 End: 12-16-2024 Refill Armando Richards MD Work Phone: [facility] Internal Medicine/Pediatrics Start: 12-04-2024 End: 12-04-2024 ambulatory [facility] Facility:[facility] Start: 12-04-2024 End: 12-04-2024 ambulatory [facility] Facility:[facility] Start: 12-04-2024 Encounter for other preprocedural examination [facility] Start: 12-04-2024 End: 12-04-2024 Admission to establishment [address] Other Phone: Pre Anesthesia Start: 12-04-2024 End: 12-04-2024 Patient encounter procedure Pacc Av 1 Other Phone: Pre Anesthesia Comment on above: Pre-op testing (Prim fox Dx); Chronic right shoulder pain; Cerebrovascular accident (CVA), unspecified mechanism ([facility]); Mixed hyperlipidemia; Elevated BP without diagnosis of hypertension; Stenosis of carotid artery, unspecified laterality; Chronic obstructive pulmonary disease, unspecified COPD type ([facility]); Former smoker; Obstructive sleep apnea syndrome; Gastroesophageal reflux disease without esophagitis; Type 2 diabetes mellitus without complication, without long-term current use of insulin ([facility]); Mitral valve insufficiency, unspecified etiology; Aortic valve sclerosis Start: 12-04-2024 End: 12-04-2024 Patient encounter status Pacc [address] 1 Other Phone: [facility] Work Phone: Start: 12-03-2024 End: 12-03-2024 Refill [facility] Comment on above: Lumbar degenerative disc disease Start: 12-02-2024 End: 12-02-2024 Office outpatient visit 15 minutes Adriana Lopez DO Work Phone: [facility] [place] Comment on above: Bilateral carotid ar asael stenosis Start: 12-02-2024 End: 12-02-2024 ambulatory ADRIANA LOPEZ [facility] Start: 11-29-2024 End: 11-29-2024 Office outpatient visit 15 minutes Armando Richards MD Work Phone: [facility] Internal Medicine/[facility]ediatric[facility] Comment on above: Generalized osteoart hritis (Primary Dx) Start: 11-29-2024 End: 11-29-2024 ambulatory [facility] Start: 11-26-2024 End: 11-26-2024 ambulatory JULIO Martínez [facility] Start: 11-18-2024 End: 11-18-2024 ambulatory Olu Sosa Facility:[facility] Start: 11-18-2024 End: 11-18-2024 Patient encounter procedure Olu Gail Abranbrent [facility] Start: 11-06-2024 End: 11-06-2024 ambulatory Olu Sosa Facility::[id number] Start: 11-01-2024 End: 11-01-2024 Office outpatient visit 15 minutes Armando Richards MD Work Phone: [facility] Comment on above: Right ureteral stone (Primary Dx); Generalized osteoarthritis Start: 11-01-2024 End: 11-01-2024 ambulatory [facility] Start: 10-31-2024 End: 10-31-2024 Refill Jackie Fabian [facility] Internal Medicine/Pediatrics Comment on above: Lumbar degenerative disc disease Start: 10-29-2024 End: 10-29-2024 Patient encounter status Hung Jacobsen MD Work Phone: [facility] Start: 10-29-2024 End: 10-29-2024 ambulatory Elvira Valencia RN Work Phone: Orthopaedics Comment on above: Pain (Primary Dx); Chronic right shoulder pain; Pre-op testing Start: 10-29-2024 End: 10-29-2024 Departed Referred Olu Sosa MD Work Phone: [facility] Start: 10-24-2024 End: 10-24-2024 Patient encounter procedure Manan Baker DPM Work Phone: [facility] Comment on above: Type 2 diabetes kimberly itus without complication, with long-term current use of insulin ([facility]) (Primary Dx); Pain due to onychomycosis of toenails of both feet Start: 10-24-2024 End: 10-24-2024 ambulatory MANANCody BAKER Not Available Start: 10-16-2024 End: 10-16-2024 ambulatory Olu Sosa Facility:[facility] Start: 10-16-2024 End: 10-16-2024 Patient encounter procedure Olu Sosa [facility] Start: 10-15-2024 End: 10-15-2024 Patient encounter procedure Hung Jacobsen MD Work Phone: Orthopaedics Comment on above: Chronic right should er pain (Primary Dx); Aftercare following left shoulder joint replacement surgery; Glenohumeral arthritis, right Start: 10-15-2024 End: 10-15-2024 ambulatory [facility] Facility:[facility] Start: 10-15-2024 End: 10-15-2024 Subsequent hospital visit by physician Chel Conrad [facility] Work Phone: Radiology Comment on above: Aftercare following left shoulder joint replacement surgery [Z47.1, Z96.612] Start: 10-02-2024 End: 10-02-2024 Refill Jackie LEWIS [facility] Internal Medicine/[facility] Comment on above: Lumbar degenerative disc disease Start: 09-16-2024 End: 09-16-2024 Refill Armando Richards MD Work Phone: [facility] Medicine[facility] Start: 09-16-2024 End: 09-19-2024 Telephone encounter Christine Mejia RN [facility] Neu[facility] Start: 09-03-2024 End: 09-03-2024 ambulatory [facility] Facility:[facility] Start: 09-03-2024 End: 09-03-2024 Patient encounter procedure Hung Jacobsen MD Work Phone: Orthopaedics Comment on above: Aftercare following left shoulder joint replacement surgery (Primary Dx) Start: 09-03-2024 End: 09-03-2024 ambulatory [facility] Facility:[facility] Start: 09-03-2024 End: 09-03-2024 Subsequent hospital visit by physician Chel Ortho [facility] Work Phone: Radiology Comment on above: Chronic left shoulde r pain [M25.512, G89.29] Start: 08-27-2024 End: 08-27-2024 Patient encounter procedure Mahesh Small MD Work Phone: [facility] Comment on above: S/P lumbar fusion (P rimary Dx); Flat back syndrome, postprocedural; Pseudarthrosis following spinal fusion Start: 08-27-2024 End: 08-27-2024 ambulatory TJ SMLAL Facility:[facility] Start: 08-27-2024 End: 08-27-2024 Subsequent hospital visit by physician Chel [facility] Work Phone: [facility] Radiology General Comment on above: S/P lumbar fusion [Z 98.1] Start: 08-15-2024 End: 08-15-2024 Patient encounter procedure Manan Baker DPM Work Phone: [facility] Comment on above: Type 2 diabetes kimberly itus without complication, with long-term current use of insulin ([facility]) (Primary Dx); Pain due to onychomycosis of toenails of both feet Start: 08-15-2024 End: 08-15-2024 ambulatory MANAN BAKER Not Available Start: 08-08-2024 End: 08-08-2024 Patient encounter procedure Tamera Pineda APRN.GAS BURNER OPERATOR Work Phone: Orthopaedic Surgery [facility] Comment on above: Aftercare following left shoulder joint replacement surgery (Primary Dx); Post-operative state Start: 08-08-2024 End: 08-08-2024 [facility] Start: 08-08-2024 End: 08-08-2024 Subsequent hospital visit by physician Chel [facility] 1 Xray [facility] Comment on above: Chronic left shoulde r pain [M25.512, G89.29] Start: 08-05-2024 End: 08-05-2024 Refill Jackie GIMENEZA [facility] Internal Medicine/Pediatric[facility] Comment on above: Lumbar degenerative disc disease Start: 07-26-2024 End: 07-31-2024 Telephone encounter Sandor Cope APRN.GAS BURNER OPERATOR Work Phone: Pain Management Start: 07-25-2024 End: 07-26-2024 ambulatory [facility] Facility:[facility] Start: 07-23-2024 End: 07-23-2024 Office outpatient visit 5 minutes Armando Richards MD Work Phone: [facility] Internal Medicine/[facility]ediatric[facility] Comment on above: Other fatigue (Prima ry Dx) Start: 07-23-2024 End: 07-23-2024 ambulatory [facility] Facility:[facility] Start: 07-22-2024 End: 07-22-2024 Patient encounter procedure Conchis Acosta RT(R) General Radiology Start: 07-22-2024 End: 07-22-2024 Admission to establishment Pacc [place] [id number] Work Phone: Pre Anesthesia Start: 07-22-2024 End: 07-22-2024 Anesthesia consultation [facility] 3 Work Phone: Pre Anesthesia Comment on above: Pre-op evaluation (P rimary Dx); Chronic left shoulder pain; Pre-operative clearance; Obstructive sleep apnea syndrome; Mixed hyperlipidemia; Elevated BP without diagnosis of hypertension; Chronic obstructive pulmonary disease, unspecified COPD type ([facility]); Former smoker; Gastroesophageal reflux disease without esophagitis; Calculus of kidney; Type 2 diabetes mellitus without complication, without long-term current use of insulin ([facility]); Cerebrovascular accident (CVA), unspecified mechanism ([facility]); Stenosis of carotid artery, unspecified laterality Start: 07-22-2024 Encounter for other preprocedural examination ARMANDO [facility] Start: 07-22-2024 End: 07-22-2024 Preoperative state [facility] 3 Work Phone: [facility] Start: 07-22-2024 End: 07-22-2024 Preprocedural examination done Pac 3 Work Phone: [facility] Work Phone: Start: 07-22-2024 End: 07-22-2024 ambulatory Conchis Calvo Shahram RT(R) General Radiology Comment on above: Radio Gen RMP Radiology CT Start: 07-22-2024 End: 07-22-2024 Preoperative state Xr Commons [facility] Start: 07-22-2024 End: 07-22-2024 Subsequent hospital visit by physician [facility] Radiology Ct Scan Comment on above: Chronic left shoulde r pain [M25.512, G89.29] Start: 07-20-2024 End: 07-22-2024 Refill Armando Richards MD Work Phone: [facility] Internal Medicine/[facility] Start: 07-19-2024 End: 07-19-2024 Orders Only Hung Jacobsen MD Work Phone: Orthopaedics Comment on above: Pain (Primary Dx); Chronic left shoulder pain; Pre-op testing Start: 07-19-2024 End: 07-19-2024 Patient encounter status Hung Jacobsen MD Work Phone: [facility] Start: 07-02-2024 End: 07-02-2024 ambulatory Elvira Valencia RN Work Phone: Orthopaedics Comment on above: Pain (Primary Dx); Chronic left shoulder pain; Pre-operative clearance Start: 07-02-2024 End: 07-02-2024 Preoperative state Hung Jacobsen MD Work Phone: [facility] Start: 06-27-2024 End: 06-27-2024 Refill Lilli Wu C[facility] Comment on above: Lumbar degenerative disc disease Start: 06-27-2024 End: 06-27-2024 Refill Armando Richards MD Work Phone: [facility] Comment on above: Type 2 diabetes kimberly itus without complication, without long- term current use of insulin ([facility]) Start: 06-19-2024 End: 06-20-2024 Refill Lilli Wu CMA [facility] Internal Medicine/Pediatric[facility] Comment on above: Med Refill; Medicati on Problem Start: 06-18-2024 End: 06-18-2024 ambulatory ARMANDO RICHARDS Facility:[facility] Start: 06-18-2024 End: 06-18-2024 Patient encounter procedure Hung Jacobsen MD Work Phone: Orthopaedics Comment on above: Chronic left shoulde r pain (Primary Dx); Primary osteoarthritis of both shoulders; Biceps tendinitis of left shoulder; Biceps tendinitis of right upper extremity; Rotator cuff tendinitis, left Start: 06-10-2024 End: 06-10-2024 Refill [facility]ta [facility] Start: 06-06-2024 End: 06-06-2024 Patient encounter procedure Manan Baker DPM Work Phone: [facility] Comment on above: Type 2 diabetes kimberly itus without complication, with long-term current use of insulin ([facility]) (Primary Dx); Pain due to onychomycosis of toenails of both feet Start: 06-06-2024 End: 06-06-2024 ambulatory MANAN BAKER Not Available Start: 06-06-2024 End: 06-06-2024 Bamboo flowsheet Manan Baker DPM Work Phone: [facility] Start: 06-06-2024 End: 06-06-2024 Bamboo flowsheet Manan Baker DPM Work Phone: [facility] Start: 05-29-2024 End: 05-29-2024 Patient encounter procedure Armando Richards MD Work Phone: [facility] Internal Medicine/Pediatrics Comment on above: Routine general medi jeri examination at a health care facility (Primary Dx); Lumbar degenerative disc disease; Type 2 diabetes mellitus without complication, without long-term current use of insulin ([facility]) Start: 05-29-2024 End: 05-29-2024 Patient encounter status Armando Richards MD Work Phone: [facility] Work Phone: Start: 05-29-2024 End: 05-29-2024 ambulatory [facility] Start: 05-29-2024 Encounter for genera l adult medical examination without abnormal findings [facility] Start: 05-28-2024 End: 05-28-2024 Office outpatient visit 25 minutes Julio Quispe MD Work Phone: [facility] Comment on above: Bilateral carotid ar asael stenosis (Primary Dx); Stenosis of right internal carotid artery Start: 05-28-2024 End: 05-28-2024 ambulatory JULIO QUISPE [facility] Start: 05-08-2024 End: 06-24-2024 Telephone encounter Elicia Wright RN [facility] Start: 05-01-2024 End: 05-01-2024 ambulatory [facility] Comment on above: Cerebrovascular acci dent (CVA), unspecified mechanism (CMS- HCC) (Primary Dx); Other cerebrovascular vasospasm and vasoconstriction Start: 04-25-2024 End: 04-25-2024 Office outpatient visit 25 minutes Jocelyn Hatfield MD Work Phone: [facility] Comment on above: Cerebrovascular acci dent (CVA), unspecified mechanism (CMS- HCC) (Primary Dx); Stenosis of right internal carotid artery Start: 04-25-2024 End: 04-25-2024 ambulatory [facility] Start: 04-22-2024 End: 04-22-2024 Telephone encounter Armando Richards MD Work Phone: [facility] Medicine[facility] Start: 04-18-2024 End: 04-18-2024 Refill Armando Richards MD Work Phone: [facility] Medicine[facility] Start: 04-17-2024 End: 04-18-2024 Refill Armando Richards MD Work Phone: [facility] Medicine[facility] Start: 04-14-2024 End: 04-14-2024 Refill Armando Richards MD Work Phone: [facility] Medicine/[facility] Start: 04-01-2024 End: 04-10-2024 Telephone encounter Elicia Wright RN [facility] Start: 03-27-2024 End: 03-27-2024 ambulatory EDINSON LOWERY [facility] Comment on above: Cerebrovascular acci dent (CVA), unspecified mechanism ([facility]- HCC) (Primary Dx); Other cerebrovascular vasospasm and vasoconstriction Start: 03-26-2024 End: 03-29-2024 Refill Lilli Wu CMA [facility] Comment on above: Lumbar degenerative disc disease Transition Of Care Returning Call Start: 03-24-2024 End: 03-26-2024 Emergency department patient visit VENANCIO Sosa ENRIQUE [facility] Start: 03-24-2024 End: 03-25-2024 [facility] Start: 03-24-2024 End: 03-26-2024 Emergency department patient visit Venancio Sosa Enrique DO Work Phone: [facility] Comment on above: Dizziness (Primary D x); Cerebrovascular accident (CVA), unspecified mechanism (CMS-HCC) Start: 03-21-2024 End: 03-21-2024 ambulatory MANAN A FUAD Not Available Start: 02-23-2024 End: 02-23-2024 ambulatory [facility] Facility:[facility] Start: 02-23-2024 End: 02-23-2024 Patient encounter procedure Hung Jacobsen MD Work Phone: Orthopaedics Comment on above: 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); Biceps tendinitis of right upper extremity; Biceps tendinitis of left shoulder; Tendinitis of right rotator cuff; Rotator cuff tendinitis, left Start: 02-21-2024 End: 02-21-2024 Office outpatient visit 15 minutes Armando Richards MD Work Phone: [facility] Internal Medicine/[facility]ediatric[facility] Comment on above: Anxiety (Primary Dx) ; Lumbar degenerative disc disease; Benign prostatic hyperplasia with nocturia Start: 02-20-2024 End: 02-20-2024 ambulatory [facility] Facility:[facility] Start: 02-20-2024 End: 02-20-2024 Patient encounter procedure Mahesh Small MD Work Phone: [facility] Comment on above: S/P lumbar fusion (P rimary Dx); Flat back syndrome, postprocedural; Pseudarthrosis following spinal fusion Start: 02-20-2024 ambulatory Maritza Ridley Facility : [facility] Start: 01-25-2024 End: 01-25-2024 Refill Jackie LEWIS [facility] Medicine[facility] Comment on above: Lumbar degenerative disc disease Start: 12-26-2023 End: 12-26-2023 ambulatory Beatrice X Orzech Facility:[facility] Start: 12-26-2023 End: 12-26-2023 Patient encounter procedure Beatrice X Orzech [facility] Start: 12-25-2023 End: 12-25-2023 Refill Lilli Wu C[facility] Comment on above: Lumbar degenerative disc disease Start: 12-12-2023 End: 12-12-2023 Telephone encounter Lilli Wu CMA [facility] Internal Medicine/[facility]ediatric[facility] Comment on above: Med Refill Start: 12-11-2023 End: 12-11-2023 Telephone encounter Uyen Gresham C[facility] Comment on above: Er Follow-up Start: 11-27-2023 End: 11-27-2023 Office outpatient visit 25 minutes Armando Richards MD Work Phone: [facility] Medicine/[facility]ediatric[facility] Comment on above: Other fatigue (Prima ry Dx); Gastroesophageal reflux disease without esophagitis; ROMEO (obstructive sleep apnea); Generalized osteoarthritis; Type 2 diabetes mellitus without complication, without long-term current use of insulin ([facility]) Start: 11-22-2023 End: 11-22-2023 Refill Lilli Wu CMA [facility] Medicine/[facility] Comment on above: Lumbar degenerative disc disease Start: 11-21-2023 End: 11-21-2023 Patient encounter procedure Mahesh Small MD Work Phone: [facility] Comment on above: S/P lumbar fusion (P [...] Pain (Primary Dx) Start: 10-23-2023 Refill Lilli Wright on [facility] Comment on above: Lumbar degenerative disc disease Start: 10-18-2023 Refill Armando baugh MD Work Phone: [facility] Comment on above: Myalgia Start: 10-10-2023 Telephone encounter Mahesh Small MD Work Phone: [facility] Comment on above: Appointment Start: 10-10-2023 End: 10-10-2023 Patient encounter procedure Mahesh mSall MD Work Phone: [facility] Comment on above: S/P lumbar fusion (P rimary Dx); S/P lumbar spinal fusion; Pseudarthrosis following spinal fusion Start: 10-10-2023 End: 10-10-2023 Subsequent hospital visit by physician Xr [facility] Work Phone: [facility] Radiology General Comment on above: S/P lumbar fusion [Z 98.1] Start: 10-04-2023 End: 10-04-2023 Patient encounter procedure Olu Sosa [facility] Start: 09-22-2023 [facility] Comment on above: Lumbar degenerative disc disease Start: 09-21-2023 Refill Armando baugh MD Work Phone: [facility] Start: 09-19-2023 End: 09-19-2023 Office outpatient visit 15 minutes Armando Richards MD Work Phone: [facility] Comment on above: 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 (Primary Dx); Type 2 diabetes mellitus without complication, without long-term current use of insulin ([facility]) Start: 09-03-2023 Refill Armando baugh MD Work Phone: [facility] Comment on above: Type 2 diabetes kimberly itus without complication, without long- term current use of insulin ([facility]) Start: 08-08-2023 Refill Lilli Lams on [facility] Internal Medicine/Pediatrics Comment on above: Lumbar degenerative disc disease Start: 07-31-2023 End: 07-31-2023 Admission to establishment Pacc Av 1 Other Phone: [facility] Start: 07-31-2023 End: 07-31-[address] Other Phone: Pre Anesthesia Comment on above: Pre-op exam (Primary Dx); Type 2 diabetes mellitus without complication, without long-term current use of insulin ([facility]); Former smoker; Chronic obstructive pulmonary disease, unspecified COPD type ([facility]) Start: 07-31-2023 End: 07-31-2023 Preprocedural examination done Pacc Av 1 Other Phone: [facility] Work Phone: Start: 07-21-2023 Telephone encounter Mahesh Small MD Work Phone: [facility] Comment on above: surgery questions Start: 05-05-2023 End: 05-05-2023 ambulatory Imad Asaad Other [employer] Other Start: 05-05-2023 Telephone encounter Cortes Abarca [facility] Gastroenterology Start: 05-04-2023 End: 05-04-2023 Admission to same day surgery center MD Armando Richards Work Phone: [facility] Work Phone: Start: 05-04-2023 End: 05-04-2023 ambulatory MD Armando Richards Work Phone: [facility] Work Phone: Start: 05-03-2023 End: 05-03-2023 Patient encounter procedure Olu Sosa [facility] Start: 03-13-2023 End: 03-13-2023 ambulatory Yue Joyner PT Work Phone: [facility] Comment on above: Chronic right should er pain Start: 03-13-2023 End: 03-13-2023 Patient encounter procedure Hung A Genin DO Work Phone: Orthopaedics Comment on above: Glenohumeral arthrit is, right (Primary Dx) Start: 03-09-2023 End: 03-09-2023 Patient encounter procedure Olu Sosa [facility] Start: 03-08-2023 End: 03-08-2023 ambulatory HUNG A GENIN Facility:[facility] Start: 03-08-2023 End: 03-08-2023 Office outpatient visit 25 minutes Hung A Genin DO Work Phone: [facility] [place] Comment on above: Glenohumeral arthrit is, right (Primary Dx); Decreased range of motion of right shoulder; Chronic right shoulder pain Start: 02-16-[address] [facility] surgery center [facility] Comment on above: Surgery Start: 02-16-2023 E-mail encounter fro m caregiver [facility] Provider [facility] Start: 02-09-2023 Telephone encounter Mahesh Small MD Work Phone: [facility] Comment on above: Schedule Surgery Start: 02-06-2023 End: 02-06-2023 ambulatory Imad Asaad Other [facility] Other Start: 02-06-2023 Telephone encounter Imad Asaad [facility] Start: 02-02-2023 End: 02-02-2023 Admission to same day surgery center MD Armando Richards Work Phone: [facility] Work Phone: Start: 02-02-2023 End: 02-02-2023 ambulatory MD Armando Richards Work Phone: [facility] Work Phone: Start: 01-31-2023 End: 01-31-2023 Patient encounter procedure Mahesh Small MD Work Phone: [facility] Comment on above: S/P lumbar spinal fu lanny (Primary Dx); Flat back syndrome, postprocedural; Pseudarthrosis following spinal fusion Start: 01-18-2023 End: 01-18-2023 Lab Drop off Olu Sosa [facility] Start: 01-18-2023 End: 01-18-2023 Patient encounter procedure Olu Sosa [facility] Start: 01-10-2023 End: 01-11-2023 ambulatory OLU SOSA . Facility: Start: 12-26-2022 End: 12-26-2022 Patient encounter procedure Hung Jacobsen MD Work Phone: Orthopedics Comment on above: Glenohumeral arthrit is, right (Primary Dx); Tendinitis of right rotator cuff; Biceps tendinitis of right upper extremity Start: 12-23-2022 End: 12-23-2022 Subsequent hospital visit by physician Xr [facility] Comment on above: Pain [R52] S/P lumbar spinal fu lanny [Z98.1] Start: 12-21-2022 Orders Only Hung Jacobsen MD Work Phone: Orthopaedics Comment on above: Pain (Primary Dx) Start: 12-13-2022 End: 12-13-2022 Patient encounter procedure Mahesh Small MD Work Phone: [facility] Comment on above: S/P lumbar spinal fu lanny (Primary Dx); Flat back syndrome, postprocedural Start: 12-13-2022 End: 12-13-2022 Subsequent hospital visit by physician Xr [facility] Work Phone: [facility] Rad[facility] General Comment on above: Chronic low back lily n, unspecified back pain laterality, unspecified whether sciatica present [M54.50, G89.29] Start: 12-08-2022 (PROC) PROCEDURE Valdochris Goode [facility] Start: 12-08-2022 End: 12-08-2022 ambulatory Valdo Goode Other [facility] Other Start: 11-28-2022 End: 11-28-2022 ambulatory Valdo Goode Other [facility] Other Start: 11-28-2022 Office outpatient vi sit 25 minutes Valdo Goode [facility] Start: 11-17-2022 (PROC) PROCEDURE Valdo Goode [facility] Start: 11-17-2022 End: 11-17-2022 ambulatory Valdo Goode Other [facility] Other Start: 11-17-2022 Telephone encounter Mahesh Small MD Work Phone: Neurology Comment on above: Future Appointment Start: 11-14-2022 End: 11-14-2022 ambulatory Valdo Goode Other [facility] Other Start: 11-14-2022 Office outpatient vi sit 25 minutes Valdo Rupa [facility] Start: 11-10-2022 End: 11-10-2022 ambulatory Temi Dean Other [facility] Other Start: 11-10-2022 Telephone encounter Temi Dean [facility] Start: 11-07-2022 End: 11-07-2022 Admission to same day surgery center MD [facility] Richards [facility] Work Phone: Start: 09-22-2022 (PROC) PROCEDURE Valdo Lu [facility] Start: 09-22-2022 End: 09-22-2022 ambulatory Valdo Rupa Other [facility] Other Start: 09-13-2022 End: 09-13-2022 ambulatory Valdo Rupa Other [facility] Other Start: 09-13-2022 Office outpatient vi sit 25 minutes Valdo Rupa [facility] Start: 09-06-2022 (PROC) PROCEDURE Valdo Ross [facility] Start: 09-06-2022 End: 09-06-2022 ambulatory Valdo Rupa Other [facility] Other Start: 09-02-2022 End: 09-02-2022 ambulatory Valdo Rupa Other [facility] Other Start: 09-02-2022 Office outpatient vi sit 25 minutes Valdo Rupa [facility] Start: 08-11-2022 End: 08-11-2022 ambulatory Temi Dean Other [facility] Other Start: 08-11-2022 Telephone encounter Temi Dean [facility] Start: 08-10-2022 Office outpatient vi sit 25 minutes Temi Dean [facility] Start: 08-10-2022 End: 08-10-2022 ambulatory MD Armando Richards Work Phone: [facility] Work Phone: Start: 08-10-2022 End: 08-10-2022 Patient encounter procedure MD Armando Richards Work Phone: [facility] Work Phone: Start: 07-13-2022 End: 07-13-2022 ambulatory Alvaro Scales Other [facility] Other Start: 07-13-2022 Telephone encounter Alvaro Scales [facility] Start: 07-12-2022 End: 07-12-2022 ambulatory Temi Dean Other [facility] Other Start: 07-12-2022 Office outpatient vi sit 25 minutes Temi Dean [facility] Start: 07-06-2022 End: 07-06-2022 Lab Drop off Olu Sosa [facility] Start: 07-06-2022 End: 07-06-2022 Patient encounter procedure Olu Sosa [facility] Start: 07-04-2022 End: 07-05-[address] ARMANDO RICHARDS Facility: Start: 06-15-2022 End: 06-15-2022 ambulatory Valdo Goode Other [facility] Other Start: 06-15-2022 Office outpatient vi sit 25 minutes Valdochris Goode [facility] Start: 06-10-2022 End: 06-10-2022 ambulatory Valdo Goode Other [facility] Other Start: 06-10-2022 Telephone encounter Valdo Rupa [facility] Start: 06-02-2022 (Procedure) Short Valdo Goode [facility] Start: 06-02-2022 End: 06-02-2022 ambulatory Valdo Goode Other [facility] Other Start: 05-24-2022 End: 05-24-2022 Patient encounter procedure R Jose Small MD Work Phone: [facility] Comment on above: S/P lumbar spinal fu lanny (Primary Dx); Quadriceps weakness; Flat back syndrome, postprocedural Start: 05-24-2022 End: 05-24-2022 Subsequent hospital visit by physician Xr [facility] Work Phone: [facility] Radiology General Comment on above: S/P lumbar fusion [Z 98.1] Start: 05-23-2022 Telephone encounter Mahesh Small MD Work Phone: [facility] Comment on above: Radiology XR Start: 05-20-2022 Orders Only Graham Perez on PA-C Work Phone: [facility] Comment on above: S/P lumbar fusion (P rimary Dx) Start: 05-19-2022 Encounter for preprocedural cardiovascular examination OLU SOSA . [facility] Start: 05-19-2022 Encounter for preprocedural laboratory examination OLU SOSA . [facility] Start: 05-18-2022 End: 05-18-[address] ARMANDO RICHARDS Facility:[facility] Start: 05-16-2022 End: 05-17-[address] ARMANDO RICHARDS Facility:[facility] Start: 05-16-2022 End: 05-17-2022 Encounter for preprocedural cardiovascular examination DR ARMANDO RICHARDS Facility:[facility] Start: 05-12-2022 End: 05-12-2022 ambulatory Valdo Goode Other [facility] Other Start: 05-12-2022 Telephone encounter Valdo Goode [facility] Start: 05-10-2022 End: 05-10-2022 ambulatory Valdo Goode Other [facility] Other Start: 05-10-2022 Office outpatient vi sit 25 minutes Valdo Rupa [facility] Start: 04-27-2022 End: 04-27-2022 Lab Drop off Olu Sosa [facility] Start: 04-27-2022 End: 04-27-2022 Patient encounter procedure Olu CalvoDamaso Ian [facility] Start: 04-19-2022 End: 04-19-2022 ambulatory Alvaro Scales Other [facility] Other Start: 04-19-2022 Telephone encounter Alvaro Scales [facility] Start: 04-12-2022 End: 04-13-[address] EDELMIRA ARANGO Facility: Start: 04-11-2022 End: 04-11-2022 ambulatory Valdo Goode Other [facility] Other Start: 04-11-2022 Office outpatient vi sit 25 minutes Valdochris Goode [facility] Start: 03-29-2022 End: 03-29-2022 ambulatory Sharda Brown Other [facility] Other Start: 03-29-2022 Telephone encounter Sharda Martínez [facility] Start: 03-03-2022 End: 03-03-2022 Patient encounter procedure MD Armando Richards Work Phone: [facility] [place] Start: 02-15-2022 End: 02-15-2022 ambulatory Sharda Brown Other [facility] Other Start: 02-15-2022 Telephone encounter Sharda Martínez [facility] Start: 02-15-2022 End: 02-15-2022 Patient encounter procedure Mahesh Small MD Work Phone: [facility] Comment on above: S/P lumbar spinal fu lanny; Quadriceps weakness; Atrophy of quadriceps femoris muscle; Left thigh pain; Spinal stenosis of lumbar region, unspecified whether neurogenic claudication present; Lumbar radiculopathy, chronic Start: 02-09-2022 End: 02-09-2022 ambulatory Sharda Brown Other [facility] Other Start: 02-09-2022 Office outpatient vi sit 15 minutes Sharda Brown [facility] Start: 02-09-2022 End: 02-09-2022 Patient encounter procedure MD Armando Richards Work Phone: [facility] Start: 2022 End: 2022 ambulatory Emg 1000) Work Phone: Neurology Comment on above: EMG Start: 2022 End: 2022 Patient encounter procedure Emg 3 Neur Main (Max Weight: 1000) Work Phone: [facility] Start: 01-31-2022 End: 01-31-2022 ambulatory Valdo Goode Other [facility] Other Start: 01-31-2022 Office outpatient vi sit 25 minutes Valdo Goode [facility] Pain Management Start: 01-26-2022 End: 01-26-2022 Patient encounter procedure Enzo White DO Work Phone: [facility] Comment on above: S/P lumbar spinal fu lanny (Primary Dx); Quadriceps weakness; Atrophy of quadriceps femoris muscle; Left thigh pain; Spinal stenosis of lumbar region, unspecified whether neurogenic claudication present; Lumbar radiculopathy, chronic; Gait difficulty Start: 01-13-2022 (Procedure) Short Valdo Goode [facility] Start: 01-13-2022 End: 01-13-2022 ambulatory Valdo Goode Other [facility] Other Start: 01-11-2022 End: 01-11-2022 ambulatory Valdo Goode Other [employer] Other Start: 01-11-2022 Telephone encounter Valdo Goode [facility] Start: 12-30-2021 End: 12-30-2021 ambulatory Sharda Stubbsалександр Other [facility] Other Start: 12-30-2021 Telephone encounter Sharda Kevin F [facility] Start: 12-29-2021 End: 12-29-2021 ambulatory Sharda Sukumarcody Other [facility] Other Start: 12-29-2021 Office outpatient vi sit 15 minutes Sharda Brown [facility] Start: 12-23-2021 (Procedure) Short Valdo Goode [facility] Start: 12-23-2021 End: 12-23-2021 ambulatory Valdo Goode Other [employer] Other Start: 12-14-2021 End: 12-14-2021 ambulatory Valdochris Goode Other [facility] Other Start: 12-14-2021 Office outpatient vi sit 25 minutes Valdochris Goode [facility] Start: 12-06-2021 End: 12-06-2021 ambulatory Valdochris Goode Other [employer] [facility] Other Start: 12-06-2021 Telephone encounter Valdo Goode [facility] Start: 11-30-2021 (Procedure) Short Valdo Goode [facility] Start: 11-30-2021 End: 11-30-2021 ambulatory Valdochris Goode Other [facility] Other Start: 11-26-2021 End: 11-26-2021 ambulatory Valdo Goode Other [employer] Other Start: 11-26-2021 Telephone encounter Valdo Goode [employer] Start: 11-25-2021 End: 11-25-2021 ambulatory Valdo Goode Other [facility] [employer] Other Start: 11-25-2021 Office outpatient vi sit 25 minutes Valdo Goode [facility] Start: 11-17-2021 End: 11-17-2021 ambulatory Sharda Stubbsdavecody Other [facility] [employer] Other Start: 11-17-2021 Postop follow up vis it related to original px Sharda Stubbsdaves [facility] Start: 11-15-2021 End: 11-15-2021 ambulatory Sharda Brown Other [facility] Other Start: 11-15-2021 Telephone encounter Sharda Martínez [facility] Neurosurgery Start: 11-04-2021 End: 11-04-2021 Patient encounter procedure MD Armando Richards Work Phone: [facility] Start: 11-03-2021 End: 11-03-2021 Patient encounter procedure Olu Sosa [facility] Start: 11-01-2021 End: 11-01-2021 ambulatory Sharda Elsdavecody Other [facility] [employer] Other Start: 11-01-2021 Postop follow up vis it related to original px Sharda Patinos [facility] Start: 09-20-2021 End: 10-18-2021 Evaluation and management of inpatient MD Armando Richards Work Phone: [facility] Start: 09-14-2021 Admission to [facility] Sharda Brown [facility] Start: 09-14-2021 End: 09-14-2021 ambulatory Sharda Brown Other [employer] Other Start: 09-14-2021 End: 09-20-2021 Evaluation and management of inpatient MD Armando Richards Work Phone: [facility] Start: 09-13-2021 End: 09-13-2021 Patient encounter procedure MD Armando Richards Work Phone: [facility] Start: 09-09-2021 End: 09-09-2021 Patient encounter procedure MD Armando Richards Work Phone: [facility]-Pre-Surgical Testing Start: 08-26-2021 End: 08-26-2021 ambulatory Sharda Brown Other [employer] Other Start: 08-26-2021 Office outpatient vi sit [address] [facility] Start: 07-28-2021 End: 07-28-2021 ambulatory Sharda Brown Other [employer] Other Start: 07-28-2021 Office outpatient ne w 30 minutes Sharda Brown [facility] Neurosurgery Sus[facility] Start: 07-05-2019 End: 07-06-2019 Patient encounter procedure VICENTE EBRAHEIM Facility:[facility] Start: 06-14-2019 End: 06-15-2019 Patient encounter procedure VICENTE EBRAHEIM Facility:[facility] Start: 05-31-2019 End: 06-01-2019 Patient encounter procedure VICENTE EBRAHEIM Facility:[facility] Start: 05-24-2019 End: 05-25-2019 Patient encounter procedure VICENTE EBRAHEIM Facility:[facility] Start: 05-17-2019 End: 05-18-2019 Patient encounter procedure VICENTE EBRAHEIM Facility:[facility] Start: 05-07-2019 End: 05-09-2019 Patient encounter procedure VICENTE EBRAHEIM Facility:[facility] Procedures Date Procedure Procedure Detail Performing Clinician Start: 12-04-2024 Antibody screen HUNG JACOBSEN Comment on above: Order Comment: Specimen Type: BLOOD SPEC IMEN Ordering Facility: [facility] Address: [address] [place] [address] Performed By: #### T [id number] #### [facility] CLIA [id number] [place] [address] [facility] Start: 12-02-2024 Follow-up visit Follow-up ADRIANA LOPEZ Start: 10-15-2024 Radex shoulder complete minimum 2 views Hung Jacobsen MD Work Phone: Start: 09-03-2024 Radex shoulder complete minimum 2 views Hung Jacobsen MD Work Phone: Start: 08-08-2024 Radex shoulder complete minimum 2 views Hung Jacobsen MD Work Phone: Start: 07-22-2024 Ecg routine ecg w/least 12 lds i&r only [facility] Provider Start: 07-22-2024 Antibody screen ARMANDO RICHARDS Comment on above: Order Comment: Specimen Type: BLOOD SPEC IMENOrdering Facility: [facility] Address: [address] [place] [address] Performed By: #### T [id number] ####CC [facility] BLOOD BANKCLIA [id number] [address] Start: 07-22-2024 Radiologic exam chest 2 views [...] Start: 03-24-2024 PULSE OXIMETRY, SPOT Armando Neville Work Phone: Start: 03-24-2024 Urnls dip stick/tablet rgnt auto w/o microscopy Venancio Nunez [facility] Work Phone: Start: 03-24-2024 Assay of troponin quantitative Venancio Sosa Denny coleparisa DO Work Phone: Start: 03-24-2024 Radiologic exam chest single view Venancio A Enrique [facility] Work Phone: Start: 03-24-2024 Ct angiography neck w/contrast/noncontrast Venancio A Enrique [facility] Work Phone: Start: 03-24-2024 Ecg routine ecg w/least 12 lds trcg only w/o i&r Venancio A Enrique [facility] Work Phone: Start: 03-24-2024 End: 03-24-2024 Ct head/brain w/o contrast material Venancio A Enrique [facility] Work Phone: Start: 03-24-2024 End: 03-24-2024 Basic metabolic panel calcium total Venancio Nunez DO Work Phone: Start: 02-23-2024 Arthrocentesis aspir&/inj major jt/bursa w/o us Hung Jacobsen MD Work Phone: Start: 02-23-2024 Arthrocentesis aspir&/inj major jt/bursa w/o us Hung Jacobsen MD Work Phone: Start: 11-17-2023 Arthrocentesis aspir&/inj major jt/bursa w/o us Hung Jacobsen MD Work Phone: Start: 11-17-2023 Arthrocentesis aspir&/inj major jt/bursa w/o Hung Jacobsen MD Work Phone: Start: 11-17-2023 Radex shoulder complete minimum 2 views Hung Jacobsen MD Work Phone: Start: 10-10-2023 Radex entir thrc lmbr crv sac spi w/skull 2/3 vw R Jose Small MD Work Phone: Start: 07-31-2023 Ecg routine ecg w/least 12 lds i&r only Aline LOMELI-Ekta Work Phone: Start: 05-24-2023 Adult depression screening assessment Lilli Wu CMA Start: 05-04-2023 Esophagogastroduodenoscopy MD Armando Fernandes and Work Phone: Start: 03-09-2023 Cystoscopic removal of ureteric stent Olu Sosa Start: 03-08-2023 Arthrocentesis aspir&/inj major jt/bursa w/us [...] 12-13-2022 Radex spine lumbosacral 2/3 views Janice GARZAC Work Phone: Start: 11-07-2022 Esophagogastroduodenoscopy MD Armando Fernandes and Work Phone: Start: 08-10-2022 Plain X-ray of right shoulder MD Armando green Work Phone: Start: 05-24-2022 Radex spine lumbosacral 2/3 views Graham GARZAC Work Phone: Start: 05-18-2022 Extracorporeal shockwave lithotripsy of calculus of kidney Oul Sosa Start: 02-09-2022 X-ray of lumbar spine, [...] extremities ant trunk & perineum nos MOON Ian SHAIKH Start: 05-31-2019 REMOVE TISSUE DIRECTOR STAGE(S) VICENTE EBRAHEIM Start: 05-24-2019 Anes integ extremities ant trunk & perineum nos LAURA WISEMAN Start: 05-24-2019 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 [place] [address], [facility] Start: 05-07-2019 Antibody screen VICENTE EBRAHEIM Comment on above: Performed By: #### [id number] #### [facility] [address] [place] [address], [facility] Start: 05-07-2019 ANESTH LOWER ARM SURGERY MINOO WOOD Start: 05-07-2019 [employer]PRESS [employer] 1 SPACE VICENTE HUNTLEY M Back structure, excl uding neck (body structure) Beatrice Mireles Procedure on back Olu Sosa Plan of Treatment Date Care Activity Detail Author Start: 11-30-2028 DTaP,Tdap and Td Vaccines (2 - Td or Tdap) DTaP,Tdap and Td Vaccines (2 - Td or Tdap) [facility] Start: 11-30-2028 Urine microalbumin profile DTaP,Tdap,Td Vaccine (2 - Td or Tdap) [facility] Start: 05-26-2026 Diabetes Screening Diabetes Screening [facility] Start: 03-10-2026 Tobacco Screening Tobacco Screening [facility] Start: 12-24-2025 Tobacco Screening Tobacco Screening [facility] Start: 12-20-2025 Tobacco Screening Tobacco Screening [facility] Start: 12-16-2025 Tobacco Screening Tobacco Screening [facility] Start: 12-04-2025 BP Controlled (<130/80) BP Controlled (<130/80) [facility] Start: 12-02-2025 Tobacco Screening Tobacco Screening [facility] Start: 11-29-2025 Tobacco Screening Tobacco Screening [facility] Start: 08-27-2025 End: 09-26-2025 XR Thoracic and lumbar spine Views for scoliosis W standing XR SCOLIOSIS PA STAND/LAT 2V Radiology Routine S/P lumbar fusion Flat back syndrome, postprocedural Expected: 08/27/2025 (Approximate), Expires: 09/26/2025 [facility] Work Phone: Comment on above: Expected: 08/27/2025 (Approximate), Expi res: 09/26/2025 Start: 07-29-2025 End: 07-29-2025 Patient encounter procedure Radiology Comment on above: Aftercare following bilateral shoulder j oint replacement surgery [Z47.1, Z96.611, Z96.612] Return in about 26 w eeks (around 07/29/2025) for @[place], X-ray first then room in clinic. Start: 06-23-2025 End: 06-23-2025 Patient encounter procedure 06/23/2025 2:45 PM EST [facility] [place] [address] [place] [address] Adriana Lopez, DO [address] [place] [address] [facility] [place] Start: 06-09-2025 End: 06-09-2025 Patient encounter procedure 06/09/2025 10:00 AM EDT Office Visit [facility] [address] [place] [address] Adriana Lopez, DO [address] [place] [address] [facility] Start: 06-05-2025 Hemoglobin A1c measurement HbA1C [facility] Start: 06-03-2025 End: 12-02-2025 US Carotid arteries - bilateral Vas carotid duplex bilateral Vascular Ultrasound Routine Bilateral carotid artery stenosis Expected: 06/03/2025 (Approximate), Expires: 12/02/2025 [facility] Work Phone: Comment on above: Expected: 06/03/2025 (Approximate), Expi res: 12/02/2025 Start: 06-03-2025 End: 06-03-2025 Patient encounter procedure 06/03/2025 9:30 AM EDT Appointment [facility] [address] [place] [phone] Adriana Lopez, DO [address] [place] [address] [facility] Start: 06-02-2025 End: 06-02-2025 Patient encounter procedure 06/02/2025 10:15 AM EDT Office Visit [facility] [address] [place] [phone] Armando Richards MD [address] [place] [address], [address] [place] [address] [facility] Start: 05-29-2025 Adult BMI Screening Adult BMI Screening [facility] Start: 05-29-2025 Depression Screening Depression Screening [facility] Start: 05-29-2025 Fall Risk Screening Fall Risk Screening [facility] Start: 05-29-2025 Medicare Annual Wellness Visit Medicare Annual Wellness Visit [facility] Start: 05-29-2025 Tobacco Screening Tobacco Screening [facility] Start: 05-29-2025 End: 05-29-2025 Patient encounter procedure 05/29/2025 1:30 PM EDT Office Visit [facility] [address] [place] [phone] Manan Baker DPM [address] [address] [facility] Start: 05-28-2025 Adult BMI Screening Adult BMI Screening [facility] Start: 05-28-2025 Tobacco Screening Tobacco Screening [facility] Start: 04-25-2025 Adult BMI Screening Adult BMI Screening [facility] Start: 04-25-2025 Depression Screening Depression Screening [facility] Start: 04-14-2025 COVID-19 Vaccine ( season) COVID-19 Vaccine () [facility] Start: 04-14-2025 Influenza vaccination [facility] Start: 03-24-2025 Tobacco Screening Tobacco Screening [facility] Start: 03-13-2025 End: 03-13-2025 Patient encounter procedure 03/13/2025 1:30 PM EDT Office Visit [facility] [address] [place] [phone] Manan Baker DPM [address] [address] Type 2 diabetes mellitus without complication, with long-term current use of insulin (HCC) (Primary Dx); Pain due to onychomycosis of toenails of both feet; Venous insufficiency [facility] Comment on above: Type 2 diabetes mellitus without complic ation, with long-term current use of insulin (HCC) (Primary Dx); Pain due to onychomycosis of toenails of both feet; Venous insufficiency Start: 03-10-2025 End: 03-10-2026 XR Knee - left 3 Views [employer] Comment on above: Expected: 03/10/2025, Expires: Start: 03-10-2025 End: 03-10-2026 XR Knee - right 3 Views [employer] Work Phone: Comment on above: Expected: 03/10/2025, Expires: Start: 02-20-2025 Adult BMI Screening Adult BMI Screening [employer] Start: 02-11-2025 End: 02-11-2025 Patient encounter procedure 02/11/2025 9:15 AM EDT Office Visit Orthopaedics [address] [place] [address] Hung Jacobsen MD [address] [place] [address] [facility] Comment on above: TSA Start: 01-28-2025 End: 01-28-2025 Patient encounter procedure 01/28/2025 10:45 AM EDT Office Visit Orthopaedics [address] [place] [address] Hung Jacobsen MD [address] [place] [address] [facility] Comment on above: TSA Start: 01-13-2025 End: 01-13-2025 Nursing evaluation of patient and report 01/13/2025 12:00 PM EDT Nurse Visit Orthopedics [address] [place] [address] Boaz White, ALIYAH [address] [place] [address] [facility] Comment on above: TSA Start: 01-13-2025 End: 01-13-2025 Patient encounter procedure 01/13/2025 11:30 AM EDT Appointment Radiology [address] [place] [address] XR SHOULDER GENERAL 3V OR MORE AP/TRUE AP/OTHER RIGHT Radiology Comment on above: XR SHOULDER GENERAL 3V OR MORE AP/TRUE A P/OTHER RIGHT Start: 12-30-2024 End: 12-30-2024 Nursing evaluation of patient and report 12/30/2024 12:45 PM EDT Nurse Visit Orthopedics [address] [place] [phone] Boaz White, ALIYAH [address] [place] [address] [facility] Comment on above: TSA Start: 12-30-2024 End: 12-30-2024 Patient encounter procedure 12/30/2024 12:00 PM EDT Appointment Radiology [address] [place] [address] XR SHOULDER GENERAL 3V OR MORE AP/TRUE AP/OTHER RIGHT Radiology Comment on above: XR SHOULDER GENERAL 3V OR MORE AP/TRUE A P/OTHER RIGHT Start: 12-26-2024 End: 12-26-2024 Admission to same day surgery center 12/26/2024 3:55 PM EDT - 12/26/2024 7:55 PM EDT Surgery Admitting [address] [place] [address] Hung Jacobsen MD [address] [place] [address] ARTHROPLASTY REPLACE JOINT TOTAL SHOULDER Admitting Comment on above: ARTHROPLASTY REPLACE JOINT TOTAL SHOULDE R Start: 12-26-2024 End: 12-26-2024 Arthroplasty glenohumeral joint total shoulder ARTHROPLASTY REPLACE JOINT TOTAL SHOULDER Chronic right shoulder pain 12/26/2024 3:55 PM EDT [facility] Start: 12-26-2024 Subsequent hospital visit by physician 12/26/2024 3:55 PM EDT Hospital Encounter Admitting [address] [place] [address] Hung Jacobsen MD [address] [place] [address] Chronic right shoulder pain [M25.511, G89.29] Admitting Comment on above: Chronic right shoulder pain [M25.511, G8 9.29] Start: 12-24-2024 End: 12-24-2024 Patient encounter procedure 12/24/2024 9:45 AM EDT Office Visit [facility] [address] [place] [address] 1 [place] [address] Armando Richards MD [address] [facility], [address] [place] [address] [facility] Start: 12-16-2024 End: 12-16-2024 Admission to same day surgery center 12/16/2024 12:10 PM EDT - 12/16/2024 3:50 PM EDT Surgery [facility] Room [address] [place], [place] [id number] Hung Jacobsen MD [address] [place] [address] ARTHROPLASTY REPLACE JOINT TOTAL SHOULDER [facility] Comment on above: ARTHROPLASTY REPLACE JOINT TOTAL SHOULDE R Start: 12-16-2024 End: 12-16-2024 Arthroplasty glenohumeral joint total shoulder ARTHROPLASTY REPLACE JOINT TOTAL SHOULDER Chronic right shoulder pain 12/16/2024 12:10 PM EDT [facility] Start: 12-16-2024 Subsequent hospital visit by physician 12/16/2024 12:10 PM EDT Hospital Encounter [facility] [address] [place] [address] Hung Jacobsen MD [address] [place] [address] Chronic right shoulder pain [M25.511, G89.29] [facility] Comment on above: Chronic right shoulder pain [M25.511, G8 9.29] Start: 12-12-2024 End: 12-12-2024 Patient encounter procedure 12/12/2024 11:30 AM EDT Office [place] [address] REGISTRATION [employer] [facility] Comment on above: REGISTRATION Start: 12-09-2024 Adult BMI Screening Adult BMI Screening [facility] Start: 12-09-2024 Tobacco Screening Tobacco Screening [facility] Start: 12-05-2024 End: 03-06-2025 CBC W Auto Differential panel - Blood COMPLETE BLOOD COUNT AND DIFFERENTIAL Lab Routine Chronic right shoulder pain Pre-op testing Expected: 12/05/2024, Expires: 03/06/2025 [facility] Comment on above: Expected: 12/05/2024, Expires: Start: 12-05-2024 End: 03-06-2025 Comprehensive metabolic 2000 panel - Serum or Plasma COMPREHENSIVE METABOLIC PANEL Lab Routine Chronic right shoulder pain Pre-op testing Expected: 12/05/2024, Expires: 03/06/2025 [facility] Comment on above: Expected: 12/05/2024, Expires: Start: 12-05-2024 End: 03-06-2025 TYPE AND SCREEN,30 DAY TYPE AND SCREEN,30 DAY Blood Bank Routine Chronic right shoulder pain Pre-op testing Expected: 12/05/2024, Expires: 03/06/2025 [facility] Comment on above: Expected: 12/05/2024, Expires: Start: 12-04-2024 End: 12-04-2024 Patient encounter procedure 12/04/2024 1:30 PM EDT Appointment [facility] Scan [address] [facility] [place] [address] CT SHOULDER WO IVCON RIGHT [facility] Radiology CT Scan Comment on above: CT SHOULDER WO IVCON RIGHT Start: 12-04-2024 End: 12-04-2024 Patient encounter procedure Pre Anesthesia Comment on above: PACC/EKG/LABS XR CHEST 2V FRONTAL/ LAT Start: 12-02-2024 End: 12-02-2024 Patient encounter procedure 12/02/2024 10:15 AM EDT Office Visit [facility] [place] [address] Adriana Lopez, [address] [place] [address] [place] [address] [facility] [place] Start: 11-29-2024 End: 11-29-2024 Patient encounter procedure [facility] Start: 11-28-2024 End: 11-28-2024 Patient encounter procedure [facility] Start: 11-26-2024 Adult BMI Screening Adult BMI Screening [facility] Start: 11-26-2024 Tobacco Screening Tobacco Screening [facility] Start: 11-26-2024 End: 11-26-2024 Patient encounter procedure 11/26/2024 11:00 AM EDT Appointment [facility] [address] [place] [phone] Julio Quispe MD [address] [facility], [address] [place] [address] [facility] Start: 11-05-2024 Covid-19 Vaccine ( season) Covid-19 Vaccine () [facility] Start: 10-29-2024 Bacteria identified in Urine by Culture Urine Culture [facility] Start: 10-29-2024 Urine culture [facility] Start: 10-24-2024 End: 10-24-2024 Patient encounter procedure 10/24/2024 1:00 PM EDT Office Visit [facility] [address] [facility] [address] [place] [phone] Manan Baker DPM [address] [facility] 5 [place] [address] [facility] Start: 10-15-2024 End: 10-15-2024 Patient encounter procedure Radiology Comment on above: left shoulder xr 6 wk Surgical post o p Start: 09-24-2024 Hemoglobin A1c measurement HbA1C [facility] Start: 09-19-2024 Adult BMI Screening Adult BMI Screening [facility] Start: 09-19-2024 Tobacco Screening Tobacco Screening [facility] Start: 09-16-2024 Subsequent hospital visit by physician 09/16/2024 Hospital Encounter [facility] [address] [address] Hung Jacobsen MD [address] [place] [address] Chronic left shoulder pain [M25.512, G89.29] [facility] Comment on above: Chronic left shoulder pain [M25.512, G89 .29] Start: 09-03-2024 End: 09-03-2024 Patient encounter procedure Radiology Comment on above: post op xray left shoulder 6 wk Surgical post o p Start: 09-02-2024 End: 12-02-2024 CBC W Auto Differential panel - Blood COMPLETE BLOOD COUNT AND DIFFERENTIAL Lab Routine Chronic left shoulder pain Pre-operative clearance Expected: 09/02/2024, Expires: 12/02/2024 [facility] Comment on above: Expected: 09/02/2024, Expires: Start: 09-02-2024 End: 12-02-2024 Comprehensive metabolic 2000 panel - Serum or Plasma COMPREHENSIVE METABOLIC PANEL Lab Routine Chronic left shoulder pain Pre-operative clearance Expected: 09/02/2024, Expires: 12/02/2024 [facility] Comment on above: Expected: 09/02/2024, Expires: Start: 09-02-2024 End: 12-02-2024 TYPE AND SCREEN,30 DAY TYPE AND SCREEN,30 DAY Blood Bank Routine Chronic left shoulder pain Pre-operative clearance Expected: 09/02/2024, Expires: 12/02/2024 [facility] Comment on above: Expected: 09/02/2024, Expires: Start: 08-27-2024 End: 08-27-2024 Patient encounter procedure 08/27/2024 2:00 PM EST Office Visit [facility] [address] [place] [address] Mahesh Small MD [address] [place] [address] 6 month follow up [facility] Comment on above: 6 month follow up Start: 08-22-2024 End: 03-21-2025 XR Thoracic and lumbar spine Views for scoliosis W standing XR SCOLIOSIS PA STAND/LAT 2V Radiology Routine S/P lumbar fusion Flat back syndrome, postprocedural Pseudarthrosis following spinal fusion Expected: 08/22/2024 (Approximate), Expires: 03/21/2025 [facility] Work Phone: Comment on above: Expected: 08/22/2024 (Approximate), Expi res: 03/21/2025 Start: 08-15-2024 End: 08-15-2024 Patient encounter procedure 08/15/2024 3:30 PM EST Office Visit [facility] [address] [facility] [address] [place] [phone] Manan Baker, DPM [address] [facility] 5 [place] [address] [facility] Start: 08-14-2024 Advance Directive Discussion Advance Directive Discussion [facility] Start: 08-08-2024 End: 08-08-2024 Patient encounter procedure Xray [facility] Comment on above: post op xray left shoulder Surgical post op Start: 07-25-2024 End: 07-25-2024 Admission to same day surgery center 07/25/2024 3:50 PM EST - 07/25/2024 7:25 PM EST Surgery Admitting [address] [place] [address] Hung Jacobsen MD [address] [place] [address] ARTHROPLASTY REPLACE JOINT TOTAL SHOULDER Admitting Comment on above: ARTHROPLASTY REPLACE JOINT TOTAL SHOULDE R Start: 07-25-2024 End: 07-25-2024 Arthroplasty glenohumeral joint total shoulder ARTHROPLASTY REPLACE JOINT TOTAL SHOULDER Chronic left shoulder pain 07/25/2024 3:50 PM EST [facility] Start: 07-25-2024 Subsequent hospital visit by physician 07/25/2024 3:50 PM EST Hospital Encounter Admitting [address] [place] [address] Hung Jacobsen MD [address] [facility] [place] [address] Chronic left shoulder pain [M25.512, G89.29] Admitting Comment on above: Chronic left shoulder pain [M25.512, G89 .29] Start: 07-23-2024 End: 07-23-2024 Patient encounter procedure 07/23/2024 1:00 PM EST Office Visit [facility] [place] [address] REGISTRATION [facility] Comment on above: REGISTRATION Start: 07-22-2024 End: 10-21-2024 Ferritin [Mass/volume] in Serum or Plasma [facility] Comment on above: Expected: 07/22/2024, Expires: Start: 07-22-2024 End: 10-21-2024 Iron and Iron binding capacity panel - Serum or Plasma [facility] Work Phone: Comment on above: Expected: 07/22/2024, Expires: Start: 07-22-2024 End: 07-22-2024 Anesthesia consultation Pre Anesthesia Comment on above: PACC/EKG Pre-op evaluation (P rimary Dx); Chronic left shoulder pain; Pre-operative clearance; Obstructive sleep apnea syndrome; Mixed hyperlipidemia; Elevated BP without diagnosis of hypertension; Chronic obstructive pulmonary disease, unspecified COPD type ([facility]); Former smoker; Gastroesophageal reflux disease without esophagitis; Calculus of kidney; Type 2 diabetes mellitus without complication, without long-term current use of insulin ([facility]); Cerebrovascular accident (CVA), unspecified mechanism ([facility]); Stenosis of carotid artery, unspecified laterality Surgeon ordered EKG Start: 07-22-2024 End: 07-22-2024 ambulatory 07/22/2024 11:15 AM EST Results Only [facility] [address] [place] [address] (D) PRE OP [facility] Comment on above: (D) PRE OP Start: 07-22-2024 End: 07-22-2024 Patient encounter procedure Radiology Ct Scan Comment on above: CT SHOULDER WO IVCON LEFT XR CHEST 2V FRONTAL/ LAT Start: 07-19-2024 End: 10-18-2024 CBC W Auto Differential panel - Blood COMPLETE BLOOD COUNT AND DIFFERENTIAL Lab Routine Chronic left shoulder pain Pre-op testing Expected: 07/19/2024 (Approximate), Expires: 10/18/2024 [facility] Comment on above: Expected: 07/19/2024 (Approximate), Expi res: 10/18/2024 Start: 07-19-2024 End: 10-18-2024 Comprehensive metabolic 2000 panel - Serum or Plasma COMPREHENSIVE METABOLIC PANEL Lab Routine Chronic left shoulder pain Pre-op testing Expected: 07/19/2024 (Approximate), Expires: 10/18/2024 [facility] Comment on above: Expected: 07/19/2024 (Approximate), Expi res: 10/18/2024 Start: 07-19-2024 End: 10-18-2024 TYPE AND SCREEN,30 DAY TYPE AND SCREEN,30 DAY Blood Bank Routine Chronic left shoulder pain Pre-op testing Expected: 07/19/2024, Expires: 10/18/2024 [facility] Comment on above: Expected: 07/19/2024, Expires: Start: 06-18-2024 End: 06-18-2024 Patient encounter procedure 06/18/2024 2:30 PM EST Office Visit Orthopaedics [address] [place] [address] Hung Jacobsen MD [address] [place] [address] BILATERAL INJECTIONS Orthopaedics Comment on above: BILATERAL INJECTIONS Start: 06-06-2024 End: 06-06-2024 Patient encounter procedure 06/06/2024 2:30 PM EDT Office Visit [facility] [address] [facility] [address] [place] [address] Manan Baker DPM [address] [facility] 5 [place] [address] Type 2 diabetes mellitus without complication, with long-term current use of insulin ([facility]) (Primary Dx); Pain due to onychomycosis of toenails of both feet [facility] Comment on above: Type 2 diabetes mellitus without complic ation, with long-term current use of insulin ([facility]) (Primary Dx); Pain due to onychomycosis of toenails of both feet Start: 05-29-2024 End: 05-29-2024 Patient encounter procedure 05/29/2024 9:00 AM EDT Office Visit [facility] [address] [place] [address] 1 [place] [address] Armando Richards MD [address] [place] [address], [address] [place], [place] [phone] [facility] Start: 05-28-2024 Hemoglobin A1c measurement HbA1C [facility] Start: 05-28-2024 End: 05-28-2025 US Carotid arteries - bilateral Vas carotid duplex bilateral Vascular Ultrasound Routine Bilateral carotid artery stenosis Expected: 05/28/2024, Expires: 05/28/2025 [facility] Work Phone: Comment on above: Expected: 05/28/2024, Expires: Start: 05-26-2024 Adult BMI Screening Adult BMI Screening [facility] Start: 05-26-2024 Medicare Annual Wellness Visit Medicare Annual Wellness Visit [facility] Start: 05-26-2024 Tobacco Screening Tobacco Screening [facility] Start: 05-24-2024 Depression Screening Depression Screening [facility] Start: 05-24-2024 Fall Risk Screening Fall Risk Screening [facility] Start: 05-21-2024 End: 05-21-2024 Patient encounter procedure 05/21/2024 11:00 AM EDT Office Visit [facility] [address] [place] [address] Julio Quispe MD [address], [place] [address] [place] [address] [facility] Start: 05-01-2024 End: 05-01-2025 Event Monitor (In Office) [facility] Work Phone: Comment on above: Expected: 05/01/2024, Expires: Start: 04-25-2024 End: 04-25-2024 Patient encounter procedure 04/25/2024 9:30 AM EDT Office Visit [facility] [address] [place] [phone] [facility] Start: 04-14-2024 COVID-19 Vaccine () COVID-19 Vaccine () [facility] Start: 04-14-2024 Influenza vaccination [facility] Start: 03-27-2024 End: 03-27-2025 Event Monitor (In Office) [facility] Work Phone: Comment on above: Expected: 03/27/2024, Expires: Start: 03-25-2024 End: 03-25-2025 Event monitor Event monitor Cardiac Services Routine Cerebrovascular accident (CVA), unspecified mechanism ([facility]) Expected: 03/25/2024, Expires: 03/25/2025 [facility] Work Phone: Comment on above: Expected: 03/25/2024, Expires: Start: 02-23-2024 End: 02-23-2024 Patient encounter procedure 02/23/2024 2:00 PM EDT Office Visit Orthopaedics [address] [address] Hung Jacobsen MD [address] [place] [address] BILATERAL INJECTIONS Orthopaedics Comment on above: BILATERAL INJECTIONS Start: 01-30-2024 Hemoglobin A1c measurement HbA1C [facility] Start: 11-27-2023 End: 11-27-2023 Patient encounter procedure 11/27/2023 10:15 AM EDT Office Visit [facility] [address] [place] [address] [address] [place] [address] Armando Richards MD [address] [place] [address], [address] [place], [place] [phone] [facility] Start: 09-15-2023 Covid-19 Vaccine () Covid-19 Vaccine () [facility] Start: 08-14-2023 Advance Directive Discussion Advance Directive Discussion [facility] Start: 08-14-2023 Behavioral Health Screening Behavioral Health Screening [facility] Start: 08-14-2023 Depression Assessment Depression Assessment [facility] Start: 05-04-2023 [facility] Start: 04-14-2023 Covid-19 Vaccine () Covid-19 Vaccine () [facility] Start: 04-14-2023 Influenza vaccination [facility] Start: 02-02-2023 [facility] Start: 11-07-2022 [facility] Start: 10-10-2022 COVID-19 VACCINE (6 - Moderna series) COVID-19 VACCINE (6 - Moderna series) [facility] Start: 08-14-2022 ADVANCE DIRECTIVE DISCUSSION ADVANCE DIRECTIVE DISCUSSION [facility] Start: 08-14-2022 DEPRESSION ASSESSMENT DEPRESSION ASSESSMENT [facility] Start: 07-22-2022 Hepatitis B screening Urine Albumin:Creatinine Ratio [facility] Start: 04-14-2022 Influenza vaccination INFLUENZA (#1) [facility] Start: 02-25-2022 COVID-19 VACCINE (5 - Booster for Moderna series) COVID-19 VACCINE (5 - Booster for Moderna series) [facility] Start: 09-14-2021 Excision of Lumbar Vertebral Disc, Open Approach Excision of Lumbar Vertebral Disc, Open Approach [facility] Start: 09-14-2021 Excision of Thoracolumbar Vertebral Disc, Open Approach Excision of Thoracolumbar Vertebral Disc, Open Approach [facility] Start: 09-14-2021 Fusion of 2 or more Lumbar Vertebral Joints with Interbody Fusion Device, Anterior Approach, Anterior Column, Open Approach [facility] Start: 09-14-2021 Fusion of 2 or more Lumbar Vertebral Joints with Synthetic Substitute, Posterior Approach, Posterior Column, Open Approach [facility] Start: 09-14-2021 Fusion of Thoracolumbar Vertebral Joint with Interbody Fusion Device, Anterior Approach, Anterior Column, Open Approach [facility] Start: 09-14-2021 Fusion of Thoracolumbar Vertebral Joint with Synthetic Substitute, Posterior Approach, Posterior Column, Open Approach [facility] Start: 09-14-2021 Introduction of Recombinant Bone Morphogenetic Protein into Joints, Open Approach [facility] Start: 08-14-2021 ADVANCE DIRECTIVE DISCUSSION ADVANCE DIRECTIVE DISCUSSION [facility] Start: 08-14-2021 DEPRESSION ASSESSMENT DEPRESSION ASSESSMENT [facility] Start: 04-09-2020 Pneumococcal Vaccine: 65+ (2 - PPSV23 or PCV20) Pneumococcal Vaccine: 65+ (2 - PPSV23 or PCV20) [facility] Start: 04-09-2020 Pneumococcal Vaccine: 65+ Years (2 of 2 - PPSV23 or PCV20) Pneumococcal Vaccine: 65+ Years (2 of 2 - PPSV23 or PCV20) [facility] Start: 04-09-2020 Pneumococcal Vaccine: 65+ Years (2 of 2 - PPSV23) Pneumococcal Vaccine: 65+ Years (2 of 2 - PPSV23) [facility] Start: 06-04-2019 Pneumococcal Vaccine: 50+ (2 of 2 - PPSV23) Pneumococcal Vaccine: 50+ (2 of 2 - PPSV23) [facility] Start: 06-04-2019 Pneumococcal Vaccine: 65+ (2 of 2 - PPSV23 or PCV20) Pneumococcal Vaccine: 65+ (2 of 2 - PPSV23 or PCV20) [facility] Start: 02-06-2009 Abdominal aortic aneurysm screening Abdominal Aortic Aneurysm (AAA) Screen [facility] Start: 02-06-2009 Pneumococcal Vaccine: 65+ (1 - PCV) Pneumococcal Vaccine: 65+ (1 - PCV) [facility] Start: 02-06-2009 PNEUMOCOCCAL: 65+ (1 - PCV) PNEUMOCOCCAL: 65+ (1 - PCV) [facility] Start: 01-12-2009 Medicare Annual Wellness Visit Medicare Annual Wellness Visit [facility] Start: 2004 RSV Vaccine (1 - 1-dose 60+ series) RSV Vaccine (1 - 1-dose 60+ series) [facility] Start: 02-06-1994 SHINGRIX VACCINE (1 of 2) SHINGRIX VACCINE (1 of 2) [facility] Start: 02-06-1989 DIABETES SCREEN DIABETES SCREEN [facility] Start: 02-06-1989 Diabetes Screening Diabetes Screening [facility] Start: 02-06-1963 Urine microalbumin profile [facility] Start: 02-06-1962 Adult BMI Follow Up Plan Adult BMI Follow Up Plan [facility] Start: 02-06-1962 Annual PCP Team Chronic Disease Visit Annual PCP Team Chronic Disease Visit [facility] Start: 02-06-1962 Anxiety Screening Anxiety Screening [facility] Start: 02-06-1962 Depression Screening Depression Screening [facility] Start: 02-06-1962 Hepatitis B surface antibody level LDL Cholesterol [facility] Start: 02-06-1962 HEPATITIS C SCREENING HEPATITIS C SCREENING [facility] Start: 02-06-1962 Spirometry Spirometry [facility] Start: 1956 Adult depression screening assessment DEPRESSION SCREENING [facility] Start: 02-06-1954 Diabetic foot examination Diabetic Foot Exam [facility] Start: 02-06-1954 Glaucoma screening Dilated Retinal Exam [facility] Arthroplasty glenohu meral joint total shoulder ARTHROPLASTY REPLACE JOINT TOTAL SHOULDER Chronic left shoulder pain ABRAN OR Bedside Glucose *Place/Obtain serum glucose if >500(>600 MRH) per glucometer. Bedside Glucose *Place/Obtain serum glucose if >500(>600 MRH) per glucometer. Point of Care Testing Routine 4X Daily (AC and at bedtime) until discontinued starting 03/24/2024, 4 completed [employer] Work Phone: Comment on above: 4X Daily (AC and at bedtime) until disco ntinued starting 03/24/2024, 4 completed End: 01-12-2024 Ct lumbar spine w/o contrast material CT LUMBAR SPINE WO IVCON Radiology Routine S/P lumbar spinal fusion Flat back syndrome, postprocedural 1 Occurrences starting 12/13/2022 until 01/12/2024 [facility] Work Phone: Comment on above: 1 Occurrences starting 12/13/2022 until 01/12/2024 End: 07-18-2025 CT Shoulder - left WO contrast CT SHOULDER WO IVCON LEFT Radiology Routine Chronic left shoulder pain 1 Occurrences starting 06/18/2024 until 07/18/2025 [facility] Work Phone: Comment on above: 1 Occurrences starting 06/18/2024 until 07/18/2025 CT Shoulder - left W O contrast CT SHOULDER WO IVCON LEFT Radiology Routine Chronic left shoulder pain 07/22/2024 10:26 AM [facility] Work Phone: End: 11-15-2025 CT Shoulder - right WO contrast CT SHOULDER WO IVCON RIGHT Radiology Routine Chronic right shoulder pain Glenohumeral arthritis, right 1 Occurrences starting 10/15/2024 until 11/15/2025 [facility] Work Phone: Comment on above: 1 Occurrences starting 10/15/2024 until 11/15/2025 End: 07-02-2025 ECG COMPLETE ECG COMPLETE ECG Routine Chronic left shoulder pain Pre-operative clearance 1 Occurrences starting 07/02/2024 until 07/02/2025 [facility] Comment on above: 1 Occurrences starting 07/02/2024 until 07/02/2025 ECG COMPLETE ECG COMPLETE ECG 07/22/2024 2:07 PM [facility] End: 10-29-2025 ECG COMPLETE ECG COMPLETE ECG Routine Chronic right shoulder pain Pre-op testing 1 Occurrences starting 10/29/2024 until 10/29/2025 [facility] Comment on above: 1 Occurrences starting 10/29/2024 until 10/29/2025 Electrocardiogram EKG BIC Routin e 07/31/2023 11:07 AM [facility] End: 01-26-2023 EMG(NEURO/NI) EMG(NEURO/NI) EMG Routine S/P lumbar spinal fusion Quadriceps weakness Atrophy of quadriceps femoris muscle Left thigh pain Spinal stenosis of lumbar region, unspecified whether neurogenic claudication present Lumbar radiculopathy, chronic 1 Occurrences starting 01/26/2022 until 01/26/2023 [facility] Work Phone: Comment on above: 1 Occurrences starting 01/26/2022 until 01/26/2023 Oxygen Therapy - An ntain SpO2: 90%; *FAN ENGINE ENGINEER Guidelines for O2: Yes; Document: \[email or web address]\[email or web address]\ EPIC_Reference\Orders\Resp iratory Care Guidelines\CPG Oxygen 2022.pdf Oxygen Therapy - Maintain SpO2: 90%; *FAN ENGINE ENGINEER Guidelines for O2: Yes; Document: \[email or web address] [email or web address]\ep ic\EPIC_Reference\Order s\Respiratory Care Guidelines\CPG Oxygen 2022.pdf Respiratory Care Routine As Needed until discontinued starting 03/24/2024 [employer] Comment on above: As Needed until discontinued starting Patient Education [facility] Work Phone: Patient referral [facility] Work Phone: Protein electrophore sis, serum Protein electrophoresis, serum Lab Routine 03/25/2024 4:54 AM EDT [employer] PT PLAN OF CARE CERTIFICATION PT PLAN OF CARE CERTIFICATION Procedures Routine Chronic right shoulder pain Ordered: 03/13/2023 [facility] Work Phone: Comment on above: Ordered: 03/13/2023 End: 06-19-2023 Radex spine lumbosacral 2/3 views XR LUMBAR LIMITED 2V AP/LAT Radiology Routine S/P lumbar fusion 1 Occurrences starting 05/20/2022 until 06/19/2023 [facility] Work Phone: Comment on above: 1 Occurrences starting 05/20/2022 until 06/19/2023 End: 12-17-2023 Radex spine lumbosacral 2/3 views XR LUMBAR LIMITED 2V AP/LAT Radiology Routine Chronic low back pain, unspecified back pain laterality, unspecified whether sciatica present 1 Occurrences starting 11/17/2022 until 12/17/2023 [facility] Work Phone: Comment on above: 1 Occurrences starting 11/17/2022 until 12/17/2023 US Carotid arteries - bilateral Vas carotid duplex bilateral Vascular Ultrasound Routine 03/25/2024 2:53 PM EDT [employer] US SHOULDER RT (POC) MICHAEL USE ONLY US SHOULDER RT (POC) MICHAEL USE ONLY Imaging Diagnostic Routine Glenohumeral arthritis, right Decreased range of motion of right shoulder Chronic right shoulder pain Ordered: 03/08/2023 [facility] Work Phone: Comment on above: Ordered: 03/08/2023 End: 08-01-2025 XR Chest PA and Lateral XR CHEST 2V FRONTAL/LAT Radiology Routine Chronic left shoulder pain Pre-operative clearance 1 Occurrences starting 07/02/2024 until 08/01/2025 [facility] Comment on above: 1 Occurrences starting 07/02/2024 until 08/01/2025 End: 11-28-2025 XR Chest PA and Lateral XR CHEST 2V FRONTAL/LAT Radiology Routine Chronic right shoulder pain Pre-op testing 1 Occurrences starting 10/29/2024 until 11/28/2025 [facility] Comment on above: 1 Occurrences starting 10/29/2024 until 11/28/2025 End: 12-13-2024 XR Shoulder - left 3 Views XR SHOULDER GENERAL 3V OR MORE AP/TRUE AP/OTHER LEFT Radiology Routine Pain 1 Occurrences starting 11/14/2023 until 12/13/2024 [facility] Work Phone: Comment on above: 1 Occurrences starting 11/14/2023 until 12/13/2024 End: 08-01-2025 XR Shoulder - left 3 Views XR SHOULDER GENERAL 3V OR MORE AP/TRUE AP/OTHER LEFT Radiology Routine Chronic left shoulder pain 1 Occurrences starting 07/02/2024 until 08/01/2025 [facility] Work Phone: Comment on above: 1 Occurrences starting 07/02/2024 until 08/01/2025 End: 08-18-2025 XR Shoulder - left 3 Views XR SHOULDER GENERAL 3V OR MORE AP/TRUE AP/OTHER LEFT Radiology Routine Chronic left shoulder pain 1 Occurrences starting 07/19/2024 until 08/18/2025 [facility] Work Phone: Comment on above: 1 Occurrences starting 07/19/2024 until 08/18/2025 End: 09-07-2025 XR Shoulder - left 3 Views XR SHOULDER GENERAL 3V OR MORE AP/TRUE AP/OTHER LEFT Radiology Routine Aftercare following left shoulder joint replacement surgery 1 Occurrences starting 08/08/2024 until 09/07/2025 [facility] Work Phone: Comment on above: 1 Occurrences starting 08/08/2024 until 09/07/2025 End: 10-03-2025 XR Shoulder - left 3 Views XR SHOULDER GENERAL 3V OR MORE AP/TRUE AP/OTHER LEFT Radiology Routine Aftercare following left shoulder joint replacement surgery 1 Occurrences starting 09/03/2024 until 10/03/2025 [facility] Work Phone: Comment on above: 1 Occurrences starting 09/03/2024 until 10/03/2025 End: 02-27-2026 XR Shoulder - left 3 Views XR SHOULDER GENERAL 3V OR MORE AP/TRUE AP/OTHER LEFT Radiology Routine Aftercare following bilateral shoulder joint replacement surgery 1 Occurrences starting 01/28/2025 until 02/27/2026 [facility] Comment on above: 1 Occurrences starting 01/28/2025 until 02/27/2026 End: 12-13-2024 XR Shoulder - right 3 Views XR SHOULDER GENERAL 3V OR MORE AP/TRUE AP/OTHER RIGHT Radiology Routine Pain 1 Occurrences starting 11/14/2023 until 12/13/2024 [facility] Work Phone: Comment on above: 1 Occurrences starting 11/14/2023 until 12/13/2024 End: 08-18-2025 XR Shoulder - right 3 Views XR SHOULDER GENERAL 3V OR MORE AP/TRUE AP/OTHER RIGHT Radiology Routine Chronic left shoulder pain 1 Occurrences starting 07/19/2024 until 08/18/2025 [facility] Comment on above: 1 Occurrences starting 07/19/2024 until 08/18/2025 End: 11-28-2025 XR Shoulder - right 3 Views XR SHOULDER GENERAL 3V OR MORE AP/TRUE AP/OTHER RIGHT Radiology Routine Chronic right shoulder pain 1 Occurrences starting 10/29/2024 until 11/28/2025 [facility] Work Phone: Comment on above: 1 Occurrences starting 10/29/2024 until 11/28/2025 XR Shoulder - right 3 Views XR SHOULDER GENERAL 3V OR MORE AP/TRUE AP/OTHER RIGHT Radiology Routine Chronic right shoulder pain 12/30/2024 10:03 AM EDT [facility] Work Phone: End: 02-27-2026 XR Shoulder - right 3 Views XR SHOULDER GENERAL 3V OR MORE AP/TRUE AP/OTHER RIGHT Radiology Routine Aftercare following bilateral shoulder joint replacement surgery 1 Occurrences starting 01/28/2025 until 02/27/2026 [facility] Work Phone: Comment on above: 1 Occurrences starting 01/28/2025 until 02/27/2026 XR Shoulder - right 3 Views XR SHOULDER GENERAL 3V OR MORE AP/TRUE AP/OTHER RIGHT Radiology Routine Chronic right shoulder pain 01/28/2025 10:17 AM EDT [facility] Work Phone: End: 01-20-2024 XR SHOULDER GENERAL 3V OR MORE AP/TRUE AP/OTHER RIGHT XR SHOULDER GENERAL 3V OR MORE AP/TRUE AP/OTHER RIGHT Radiology Routine Pain 1 Occurrences starting 12/21/2022 until 01/20/2024 [facility] Work Phone: Comment on above: 1 Occurrences starting 12/21/2022 until 01/20/2024 XR Thoracic and lumb ar spine Views for scoliosis W standing XR SCOLIOSIS PA STAND/LAT 2V Radiology Routine S/P lumbar fusion Flat back syndrome, postprocedural Pseudarthrosis following spinal fusion 08/27/2024 2:18 PM EST [facility] Work Phone: [facility]AN OR [facility] Immunizations Immunization Date Immunization Notes Care Provider [facility] 05-08-2024 influenza virus vaccine, unspecified formulation Olu Sosa [facility] 05-08-2024 Seasonal trivalent influenza vaccine, adjuvanted, preservative free Julio Quispe MD Work Phone: [facility] 11-11-2023 RSV, recombinant, protein subunit RSVpreF, adjuvant reconstituted, 0.5 mL, PF Ueyn Gresham [facility] 05-15-2023 Influenza, High-dose , Quadrivalent Julio Quispe MD Work Phone: [facility] 05-15-2023 influenza virus vaccine, unspecified formulation Lilli Wu [facility] 06-09-2022 influenza virus vaccine, unspecified formulation Olu Sosa [facility] 06-09-2022 Influenza, High-dose , Quadrivalent Julio Quispe MD Work Phone: [facility] 06-09-2022 SARS-CoV-2 (COVID-19 ) [id number] Olu Sosa [facility] 12-31-2021 SARS-CoV-2 mRNA (jgavmlsuybp-krmn-gfgxr se) vaccine Olu Sosa [facility] 06-12-2021 COVID-19 mRNA, [place] (Pfizer) MD Armando Richards Work Phone: [facility] Comment on above: Result Comment: 2021: [id number] Result Comment: 2021: [id number] 05-01-2021 influenza virus vaccine, unspecified formulation Olu Sosa [facility] 05-01-2021 Influenza, High-dose , Quadrivalent Lilli Jazmin [facility] 10-09-2020 COVID-19 mRNA-1273 (Moderna) MD Armando Richards Work Phone: [facility] 09-11-2020 COVID-19 mRNA-1273 (Moderna) MD Armando Richards Work Phone: [facility] 04-24-2020 influenza nasal, unspecified formulation Conchis Acosta RT(R) [facility] 04-24-2020 influenza virus vaccine, unspecified formulation Olu Lubrent [facility] 04-24-2020 Influenza, High-dose , Quadrivalent Lilli Jazmin [facility] 04-14-2020 influenza nasal, unspecified formulation Conchis Acosta RT(R) [facility] 04-14-2020 influenza virus vaccine, unspecified formulation Olu Lue [facility] 04-14-2020 influenza, high dose seasonal, preservative-free Armando Richards MD Work Phone: [facility] 04-11-2019 zoster vaccine recombinant Olu Lue [facility] 04-09-2019 AS03 adjuvant Conchis mccauley RT(R) [facility] 04-09-2019 influenza virus vaccine, unspecified formulation Olu Lue [facility] 04-09-2019 pneumococcal conjuga te vaccine, 13 valent Olu Lue [facility] 04-09-2019 Seasonal trivalent influenza vaccine, adjuvanted, preservative free Lilli Jazmin [facility] 11-30-2018 tetanus toxoid, redu luis diphtheria toxoid, and acellular pertussis vaccine, adsorbed Olu Lue [facility] 11-30-2018 zoster vaccine recombinant Olu Lue [facility] 06-02-2018 influenza virus vaccine, unspecified formulation Olu Lue [facility] 06-02-2018 influenza, high dose seasonal, preservative-free Lilli Jazmin [facility] 05-29-2017 influenza nasal, unspecified formulation Conchis Acosta RT(R) [facility] 05-29-2017 influenza virus vaccine, unspecified formulation Olu Lue [facility] 05-29-2017 influenza, seasonal, injectable, preservative free Lilli Jazmin [facility] 05-09-2016 influenza virus vaccine, unspecified formulation Olu Lue [facility] 05-09-2016 influenza, high dose seasonal, preservative-free Lilli Jazmin [facility] 05-22-2015 influenza virus vaccine, unspecified formulation Olu Lue [facility] 05-22-2015 influenza, seasonal, injectable, preservative free Lilli Jazmin [facility] 05-08-2013 influenza virus vaccine, whole virus Lilli Jazmin [facility] 05-08-2013 influenza, whole Olu Lue [facility] 05-26-2010 influenza virus vaccine, whole virus Lilli Jazmin [facility] 05-26-2010 influenza, whole Olu Lue [facility] Payers Date Payer Category Payer Self-pay [id number] 2020 Private Health Insurance [id number] 2020 Unknown MMO MMO MEDICARE SUPPLEMENT [id number] 2020-Present [phone] [address] [place] [address] Indemnity [id number]. [id number] 2016 Commercial Indemnity MEDICAL [facility] [id number] 2016 Unknown [id number] 1.13.159.2. [id number] 2009 Medicare MEDICARE MEDICAR E A AND B [id number] 2009-Present [phone] [address] [address] [place] [address] Medicare [id number]. [id number] 2009 Medicare [id number]. 1.13.159.2. [id number] 1959 Medicare [id number] 1959 Unknown [id number] 1944 Unknown [id number] 2.16.840.1.587629.3.579.2. 647 1944 Unknown [id number] 2.16.840.1.017620.3.579.2. 647 1944 Unknown [id number] 2.16.840.1.145494.3.579.2. 647 1944 Unknown [id number] 2.16.840.1.518520.3.579.2. 647 1944 Unknown [id number] 2.16.840.1.079911.3.579.2. 647 1944 Unknown [id number] 2.16.840.1.107311.3.579.2. 647 1944 Unknown [id number] 2.16.840.1.428040.3.579.2. 593 1944 Unknown [id number] 2.16.840.1.787263.3.579.2. 593 1944 Unknown [id number] 2.16.840.1.597372.3.579.2. 593 1944 Unknown [id number] 2.16.840.1.552182.3.579.2. 593 1944 Unknown [id number] 2.16.840.1.886229.3.579.2. 593 1944 Unknown [id number] 2.16.840.1.049501.3.579.2. 1286 1944 Unknown [id number] 2.16.840.1.842516.3.579.2. 1286 1944 Unknown [id number] 2.16840.1.712312.3.579.2. 128 1944 Unknown [id number] 2.16840.1.857119.3.579.2. 727 1944 Unknown [id number] 2.840.1.252706.3.579.2. 727 1944 Unknown [id number] 2.16840.1.004892.3.579.2. 727 1944 Unknown [id number] 2.16840.1.951009.3.579.2. 727 1944 Unknown [id number] 2.16840.1.167420.3.579.2. 727 1944 Unknown [id number] 2.16840.1.645592.3.579.2. 727 1944 Unknown [id number] 2.16840.1.901364.3.579.2. 1286 1944 Unknown [id number] 2.16840.1.952489.3.579.2. 128 1944 Unknown [id number] 2.16840.1.852783.3.579.2. 1286 1944 Unknown [id number] 2.16840.1.503300.3.579.2. 128 1944 Unknown [id number] 2.16.840.1.395392.3.579.2. 128 1944 Unknown [id number] 2.16.840.1.107907.3.579.2. 1285 1944 Unknown [id number] 2.16.840.1.569096.3.579.2. 1285 1944 Unknown [id number] 2.16.840.1.336295.3.579.2. 128 1944 Unknown [id number] 2.16.840.1.611520.3.579.2. 1285 1944 Unknown [id number] 2.16.840.1.411736.3.579.2. 1285 1944 Unknown [id number] 2.840.1.563027.3.579.2. 1285 1944 Unknown [id number] 2.840.1.425097.3.579.2. 128 1944 Unknown [id number] 2.840.1.718470.3.579.2. 1285 1944 Unknown [id number] 2.16840.1.897382.3.579.2. 1285 1944 Unknown [id number] 2.840.1.279841.3.579.2. 128 1944 Unknown [id number] 2.16840.1.556609.3.579.2. 128 1944 Unknown [id number] 2.16.840.1.167540.3.579.2. 1258 1944 Unknown [id number] 2.16840.1.760259.3.579.2. 9 1944 Unknown [id number] 2.16840.1.107425.3.579.2. 1258 1944 Unknown [id number] 2.16.840.1.385324.3.579.2. 1259 1944 Unknown [id number] 2.16.840.1.518746.3.579.2. 1259 1944 Unknown [id number] 2.16.840.1.308373.3.579.2. 1259 Unknown [id number] 2.16.840.1.618955.3.579.2. 531 Social History Date Type Detail Facility Start: 11-03-2021 End: 11-02-2022 Tobacco smoking status Ex-smoker (finding) [facility] Other Start: 09-07-2020 End: 03-08-2023 Sex Assigned At Male [facility] Other Start: 1945 Sex Assigned At Male [facility] Start: 08-14-1968 End: 08-14-1992 History of tobacco use Cigarette Smoker [facility] Start: 09-07-2020 End: 01-26-2022 Cigarettes smoked current (pack per day) - Reported 0.5 [facility] Start: 01-26-2022 End: 11-02-2022 Tobacco use and exposure Smokeless tobacco non-user [facility] Start: 01-26-2022 End: 03-10-2025 Alcohol intake Current drinker of alcohol (finding) [facility] Start: 01-26-2022 End: 03-08-2023 Tobacco Comment Quit years ago [facility] Start: 1945 Sex Assigned At Not on file [facility] Start: 01-16-2022 End: 05-24-2022 Exposure to SARS-CoV-2 (event) Not sure [facility] Start: 08-14-1968 End: 08-14-1992 History of tobacco use Current smoker [facility] Start: 12-26-2023 End: 10-16-2024 Adult Depression Screening Assessment 2 [facility] Start: 01-26-2022 Sexual orientation Heterosexual (finding) [facility] Tobacco quit 40 years ag o Tobacco Use:. Cigarettes, Household tobacco concerns: No. Yes [facility] Tobacco smoking status [facility] Start: 07-31-2023 Alcohol Comment 1 beer 2-3 days a week [facility] (I/We) worried wheth er (my/our) food would run out before (I/we) got money to buy more. Never true [facility] In the past 12 month s, was there a time when you were not able to pay the mortgage or rent on time? No [facility] History of tobacco use Passive smoker [facility] Start: 05-25-2023 Alcohol Comment 4 or more times a week [facility] Start: 03-19-2015 End: 10-31-2024 Sex Male (finding) [employer] [facility] [employer] Procedure Code Equipment Code Equipment Origin al Text Equipment Identifier Dates Fusion, spine, lumbar, XLIF CANCELLOUS 15CC CRUSHED FDA Start: 09-14-2021 Fusion, spine, lumbar, XLIF Metallic spinal fusion cage, non-sterile ()[id number] FDA Start: 09-14-2021 Fusion, spine, lumbar, XLIF Metallic spinal fusion cage, non-sterile ()[id number] FDA Start: 09-14-2021 Fusion, spine, lumbar, XLIF Metallic spinal fusion cage, non-sterile ()[id number] FDA Start: 09-14-2021 Fusion, spine, lumbar, XLIF Bone-screw internal spinal fixation system, non-sterile ()[id number] FDA Start: 09-14-2021 Fusion, spine, lumbar, XLIF MAS REDUCTION FIXATION ADD LEV FDA Start: 09-14-2021 Fusion, spine, lumbar, XLIF Bone-screw internal spinal fixation system, non-sterile ()[id number] FDA Start: 09-14-2021 Fusion, spine, lumbar, XLIF MAS REDUCTION FIXATION ADD LEV FDA Start: 09-14-2021 Fusion, spine, lumbar, XLIF Bone-screw internal spinal fixation system, non-sterile ()[id number] FDA Start: 09-14-2021 Fusion, spine, lumbar, XLIF RELINE RAYMOND FDA Start: 09-14-2021 Fusion, spine, lumbar, XLIF Bone-screw internal spinal fixation system, non-sterile ()[id number] FDA Start: 09-14-2021 Fusion, spine, lumbar, XLIF Polymeric spinal fusion cage, non-sterile ()[id number] FDA Start: 09-14-2021 Fusion, spine, lumbar, XLIF RELINE RAYMOND FDA Start: 09-14-2021 Fusion, spine, lumbar, XLIF XLIF 4 LEVEL MAS REDUCTION FDA Start: 09-14-2021 Fusion, spine, lumbar, XLIF Bone matrix implant, human-derived ()[id number] FDA Start: 09-14-2021 Fusion, spine, lumbar, XLIF Bone matrix implant, human-derived ()[id number] FDA Start: 09-14-2021 Fusion, spine, lumbar, XLIF Spinal fusion graft kit ()[id number] FDA Start: 09-14-2021 Fusion, spine, lumbar, [...] Alice 0d Small Titanium Raymond Spine - [id number] Start: 08-24-2023 Screw Alice 3 Fiona nium Set Audrey Spine - [id number] Start: 08-24-2023 Connector Everes t 6mm 5.5mm Raymond Closed Open Axial 4 Screw Nonsterile Spine - [id number] Start: 08-24-2023 Raymond Max 90mm Spi nal Radius - [id number] Start: 08-24-2023 Raymond Alice 6mm Fiona nium 480mm Spinal Compression - [id number] Start: 08-24-2023 Screw [place] Set Spine - [id number] Start: 08-24-2023 Screw Laice 3 5.5m m Titanium 50mm Bone Polyaxial Spine Thoracolumbar - [id number] Start: 08-24-2023 Screw 8.5mm 45mm Bone Polyaxial Revision Spine Iliosacral - [id number] Start: 08-24-2023 Screw Alice 3 7.5m m Titanium 60mm Bone Polyaxial Spine Thoracolumbar - [id number] Start: 08-24-2023 Screw Alice 3 7.5m m Titanium 70mm Bone Polyaxial Spine Thoracolumbar - [id number] Start: 08-24-2023 Spacer Avs 4d Pe ek [id number] Spinal Cage Thoracolumbar Vertebrae - [id number] Start: 08-24-2023 Head Rsp 36mm Ne utral Glenoid Retain Screw - [id number] Start: 07-25-2024 Insert Rsp Djo Surgical Standard Hxe+ Socket Sterile Humeral - [id number] Start: 07-25-2024 Stem Humeral Std Encore Reverse Shoulder [id number] - [id number] Start: 07-25-2024 Baseplate Rsp P2 30mm Glenoid Sterile - [id number] Start: 07-25-2024 Screw Rsp 5mm 14 mm Bone Lock Glenoid Baseplate Shoulder - [id number] Start: 07-25-2024 Screw Rsp 5mm 26 mm Bone Lock Glenoid Baseplate Shoulder - [id number] Start: 07-25-2024 Screw Rsp 5mm 26 mm Bone Lock Glenoid Baseplate Shoulder - [id number] Start: 07-25-2024 Screw Rsp 5mm 14 mm Bone Lock Glenoid Baseplate Shoulder - [id number] Start: 07-25-2024 Head Rsp 36mm Ne utral Glenoid Retain Screw - [id number] Start: 12-16-2024 Insert Rsp Djo Surgical Standard Hxe+ Socket Sterile Humeral - [id number] Start: 12-16-2024 Stem Humeral Std Encore Reverse Shoulder [id number] - [id number] Start: 12-16-2024 Baseplate Rsp P2 30mm Glenoid Sterile - [id number] Start: 12-16-2024 Screw Rsp 5mm 14 mm Bone Lock Glenoid Baseplate Shoulder - [id number] Start: 12-16-2024 Screw Rsp 5mm 14 mm Bone Lock Glenoid Baseplate Shoulder - [id number] Start: 12-16-2024 Screw Rsp 5mm 26 mm Bone Lock Glenoid Baseplate Shoulder - [id number] Start: 12-16-2024 Screw Rsp 5mm 22 mm Bone Lock Glenoid Baseplate Shoulder - [id number] Start: 12-16-2024 1 strip by other route every morning before breakfast. [id number] Start: 03-07-2025 End: 03-10-2025 1 strip by other route daily. [id number] Start: 03-10-2025 Goals Date Patient Goal Desired Activity /State Personal health goal Comment on above: Formatting of this n ote might be different from the original. Evaluation of progress towards goal: Safe dc transition from hospital to home. Functional Status Date Assessment Result Facility 12-17-2024 Are you deaf, or do you have serious difficulty hearing Yes 12/17/2024 12:04 PM Andreia Ley, ALIYAH Yes [facility] 12-17-2024 Are you blind, or do you have serious difficulty seeing, even when wearing glasses No 12/17/2024 12:04 PM Andreia Ley, ALIYAH No [facility] 12-17-2024 Do you have serious difficulty walking or climbing stairs Yes 12/17/2024 12:04 PM Andreia Ley, ALIYAH Yes [facility] 12-17-2024 Do you have difficul ty dressing or bathing Yes 12/17/2024 12:04 PM Andreia Ley, ALIYAH Yes [facility] 12-17-2024 Because of a physica l, mental, or emotional condition, do you have difficulty doing errands alone such as visiting a physician's office or shopping Yes 12/17/2024 12:04 PM Andreia Ley, ALIYAH Yes [facility] 11-18-2024 Functional Status N/A [facility] 10-16-2024 Functional Status N/A [facility] 07-26-2024 Are you deaf, or do you have serious difficulty hearing No 07/26/2024 6:23 PM Jasen Katz RN No [facility] 07-26-2024 Are you blind, or do you have serious difficulty seeing, even when wearing glasses No 07/26/2024 6:23 PM Jasen Katz, ALIYAH No [facility] 07-26-2024 Do you have serious difficulty walking or climbing stairs No 07/26/2024 6:23 PM Jasen Katz, ALIYAH No [facility] 07-26-2024 Do you have difficul ty dressing or bathing No 07/26/2024 6:23 PM Jasen Katz, ALIYAH No [facility] 07-26-2024 Because of a physica l, mental, or emotional condition, do you have difficulty doing errands alone such as visiting a physician's office or shopping Yes 07/26/2024 6:23 PM Jasen Katz, ALIYAH Yes [facility] 12-26-2023 Functional Status N/A [facility] 10-04-2023 Functional Status N/A [facility] 05-03-2023 Functional Status N/A [facility] 03-09-2023 Functional Status N/A [facility] 01-18-2023 Functional Status N/A [facility] 07-06-2022 Functional Status N/A [facility] 04-27-2022 N/A [facility] 10-18-2021 Functional status 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 Work Phone: 09-20-2021 Functional status 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 Work Phone: Mental Status Date Assessment Result Facility 12-17-2024 Because of a physica l, mental, or emotional condition, do you have serious difficulty concentrating, remembering, or making decisions Yes 12/17/2024 12:04 PM EDT Andreia Grewal, ALIYAH Yes [facility] 07-26-2024 Because of a physica l, mental, or emotional condition, do you have serious difficulty concentrating, remembering, or making decisions No 07/26/2024 6:23 PM EST Jasen Baker, ALIYAH No [facility] 10-18-2021 Cognitive function Cognitive Sta tus Patient at [facility] Work Phone: 09-20-2021 Cognitive function Cognitive Sta tus Patient at [facility] Work Phone: Clinical Notes 12-30-2015 to 05-09-2025 Telephone Encounter - Jackie Peralta Ian - 05/09/2025 12:58 PM EDTTelephone Encounter - Jackie Peralta Ian - 05/09/2025 12:58 PM EDTTelephone Encounter - JOSHUA Guardado - 04/10/2025 2:36 PM EDT Note Date & Type Note Facility 05-09-2025 Miscellaneous Notes Refill request, contract signed and appointments up to date. documented in this encounter [facility] 05-09-2025 Telephone encounter Note Refill request, contract signed and appointments up to date. [facility] 04-10-2025 Miscellaneous Notes Refill request, contract signed and appointments up to date. documented in this encounter [facility] 04-10-2025 Telephone encounter Note Refill request, contract signed and appointments up to date. [facility] 03-13-2025 History of Present illness Narrative Patient: Tyler Torres : 1945 PCP: No primary care provider on file. SUBJECTIVE This is a 80 y.o. 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) Onychomycosis S/P epidural steroid injection 2013 Tinea pedis Medications: Current Outpatient Medications: celecoxib (CeleBREX) 200 MG capsule, Take 200 mg by mouth in the morning., Disp: , Rfl: cetirizine (ZyrTEC) 10 MG tablet, Take 10 mg by mouth 1 (one) time each day at the same time., Disp: , Rfl: cholecalciferol (Vitamin D-3) 50 MCG (1999 [place]) capsule, Take 2,000 Units by mouth [...] date: 1968 Quit date: 1978 Years since quittin.5 Passive exposure: Past Smokeless tobacco: Never Vaping [...] Resource Strain: Low Risk (08/24/2023) Received from [facility] Overall Financial Resource Strain (CARDIA) Difficulty of Paying Living Expenses: Not hard at all Food Insecurity: No Food Insecurity (12/20/2024) [facility] Within the past 12 months we worried whether our food would run out before we got money to buy more.: Never True Within the past 12 months the food we bought just didn't last and we didn't have money to get more.: Never True Transportation Needs: No Transportation Needs (03/24/2024) Received from [facility] PRAPARE - Transportation Lack of Transportation (Medical): No Lack of Transportation (Non-Medical): No Physical Activity: Not on file Stress: Not on file Social Connections: Not on file Intimate Partner Violence: Not on file Housing Stability: Low Risk (03/24/2024) Received from [facility] Housing Instability Are you worried or [...] complication, with long-term current use of insulin (HCC) 2. Pain due to onychomycosis of toenails of both feet 3. Venous insufficiency PLAN Discussed proper foot care with patient [...] Manan Baker DPM documented in this encounter [facility] 03-10-2025 History of Present illness Narrative Subjective Patient ID: Tyler Torres is a 80 y.o. male. Monday he was shopping at the [employer] store. He was using his cane because he has been doing much better with his walking and not requiring his walker. His left foot stuck on the ground when he run around a corner and he fell forward landing on his knees. He had some minor lacerations on his hands and his cheek. He did not hit his head and was not knocked out. He was evaluated by EMS. His blood sugar was not low. He clearly did not faint he just stumbled and fell. He is getting around with his walker and his knees hurt. He has not really developed any bruising or swelling. Denies other significant injury related to this fall. 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 The following portions of the patient's history were reviewed and updated as appropriate: allergies, current medications, past medical history, past social history, past surgical history, and problem list. Review of Systems Objective Physical Exam Constitutional: Comments: He appears in no distress. He is able to walk with a steady gait with his walker. Musculoskeletal: Comments: OA changes in his knees. A little bit of tenderness over the kneecaps bilaterally. No palpable deformity. Assessment/Plan Will x-ray both of his knees to be sure there is no bone trauma related to the fall onto a hard floor. If those x-rays are negative continue with conservative care and I expect he will returned to baseline function over a week or 2. Diagnoses and all orders for this visit: Acute pain of both knees - X-ray knee right 3 views; Future - X-ray knee left 3 views; Future Type 2 diabetes mellitus without complication, without long-term current use of insulin ([facility]) documented in this encounter [facility] 03-07-2025 Miscellaneous Notes Refill request. documented in this encounter [facility] 03-07-2025 Telephone encounter Note Refill request. [facility] 03-07-2025 Miscellaneous Notes Refill request. documented in this encounter [facility] 03-07-2025 Telephone encounter Note Refill request. [facility] 02-10-2025 Miscellaneous Notes Tyler stopped in and said he needs his pain medicine sent in. Refill request, contract signed and appointments up to date. documented in this encounter [facility] 02-10-2025 Telephone encounter Note Tyler stopped in and said he needs his pain medicine sent in. [facility] 02-10-2025 Telephone encounter Note Refill request, contract signed and appointments up to date. [facility] 01-28-2025 Instructions Hung Jacobsen MD - 01/28/2025 11:37 AM EDT Can get rid of Sling completely beginning of March. documented in this encounter [facility] 01-28-2025 History of Present illness Narrative SHOULDER/ELBOW ESTABLISHED VISIT PCP: Armando Richards MD, MD Date of Surgery: 12/16/24 Surgery: Right Reverse TSA Follow-up time: 6 weeks Date of Surgery: 07/25/24 Surgery: Left Reverse Shoulder Replacement Follow-up time: 6 months SUBJECTIVE HISTORY OF PRESENT ILLNESS: Tyler Torres is a 79-year-old male presenting for follow-up. R shoulder doing well no pain. Compliant with sling wear and activities. Tyler reports worsening back and leg pain with activity, which he notes has been gradually increasing since his back surgery in September of last year. Has not FU with Dr. Small since Sep 2024 He also reports intermittent right knee pain, which he describes as variable in intensity. He is hesitant to pursue any surgical intervention for his knee at this time. ACTIVE PROBLEM LIST Chronic Right Shoulder Pain Type 2 Diabetes Mellitus Without Complication, Without Long-Term Current Use of Insulin ([facility]) Former Smoker Chronic Obstructive Pulmonary Disease (Ltac, 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) Mixed Hyperlipidemia Obstructive Sleep Apnea Syndrome Peripheral Venous Insufficiency Cva (Cerebral Vascular Accident) (Ltac, [facility]) Carotid Stenosis Mitral Valve Insufficiency Aortic Valve Sclerosis S/P Reverse Total Shoulder Arthroplasty, Right Benign Prostatic Hyperplasia With Weak Urinary Stream Primary Hypertension ALLERGIES Allergen Reactions Simvastatin Unknown MEDICATIONS: aspirin, enteric coated (ECOTRIN LOW STRENGTH) 81 mg EC tablet Take 1 tablet by mouth two times a day for 14 days. (Patient taking differently: Take 81 mg by mouth two times a day. Taking once a day) acetaminophen (TYLENOL EXTRA STRENGTH) 500 mg tablet Take 2 tablets by mouth every 6 hours as needed for pain. finasteride (PROSCAR) 5 mg tablet Take 5 [...] visibile head, eyes, ear, neck, throat deformities - Musculoskeletal: - Right Shoulder: - ROM: Active abduction to 85 degrees, passive abduction to 100 degrees, external rotation to 20 degrees. - Strength: 4+/5. - Left Shoulder: 140/40/L4 - ROM: Able to reach behind back to posterior buttock. Axillary, Long Thoracic, CN XI, Median, Ulnar, Radial, musculocutaneous nerves intact to motor and sensation. Fingers warm and well perfused, BCR< 2sec. Radial Pulse 2+ RADIOGRAPHIC RESULTS: Imaging was personally reviewed by myself today R shoulder xr show Reverse in good position. GT avulsion stable ASSESSMENT PLAN DIAGNOSIS: (Z47.1, Z96.611, Z96.612) Aftercare following bilateral shoulder joint replacement surgery (primary encounter diagnosis) 1. Aftercare following bilateral shoulder joint replacement surgery (Z47.1) Post-operative recovery progressing well. Right shoulder active ROM to 85 degrees, passive ROM to 100 degrees, external rotation to 20 degrees, and strength 4+ out of 5. Left shoulder exhibits good ROM and function. - Provided stretches for the right shoulder. - Initiate resistance band exercises in 2-3 weeks with 5-10 lbs resistance. - Discontinue sling use completely by the beginning of March. - Follow-up appointment scheduled for July to assess bilateral shoulder function. New Xr. All questions were answered for patient today, they should not hesitate to call the office with any issues. Medical Decision Making: Medical Decision Making Level: 1 - N/A Hung Jacobsen MD documented in this encounter [facility] 01-28-2025 Note HNO ID: [id number] Author: HUNG JACOBSEN MD Service: ? Author Type: Physician Type: Progress Notes Filed: 01/28/2025 13:29 Note Text: SHOULDER/ELBOW ESTABLISHED VISIT PCP: Armando Richards MD, MD Date of Surgery: 12/16/24 Surgery: Right Reverse TSA Follow-up time: 6 weeks Date of Surgery: 07/25/24 Surgery: Left Reverse Shoulder Replacement Follow-up time: 6 months SUBJECTIVE HISTORY OF PRESENT ILLNESS: Tyler Torres is a 79-year-old male presenting for follow-up. R shoulder doing well no pain. Compliant with sling wear and activities. Tyler reports worsening back and leg pain with activity, which he notes has been gradually increasing since his back surgery in September of last year. Has not FU with Dr. Small since Sep 2024 He also reports intermittent right knee pain, which he describes as variable in intensity. He is hesitant to pursue any surgical intervention for his knee at this time. ACTIVE PROBLEM LIST Chronic Right Shoulder Pain Type 2 Diabetes Mellitus Without Complication, Without Long-Term Current Use of Insulin (Ltac[facility]) Former Smoker Chronic Obstructive Pulmonary Disease (Ltac, 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) Mixed Hyperlipidemia Obstructive Sleep Apnea Syndrome Peripheral Venous Insufficiency Cva (Cerebral Vascular Accident) (Ltac, [facility]) Carotid Stenosis Mitral Valve Insufficiency Aortic Valve Sclerosis S/P Reverse Total Shoulder Arthroplasty, Right Benign Prostatic Hyperplasia With Weak Urinary Stream Primary Hypertension ALLERGIES Allergen Reactions Simvastatin Unknown MEDICATIONS: aspirin, enteric coated (ECOTRIN LOW STRENGTH) 81 mg EC tablet Take 1 tablet by mouth two times a day for 14 days. (Patient taking differently: Take 81 mg by mouth two times a day. Taking once a day) acetaminophen (TYLENOL EXTRA STRENGTH) 500 mg tablet Take 2 tablets by mouth every 6 hours as needed for pain. finasteride (PROSCAR) 5 mg tablet Take 5 [...] visibile head, eyes, ear, neck, throat deformities - Musculoskeletal: - Right Shoulder: - ROM: Active abduction to 85 degrees, passive abduction to 100 degrees, external rotation to 20 degrees. - Strength: 4+/5. - Left Shoulder: 140/40/L4 - ROM: Able to reach behind back to posterior buttock. Axillary, Long Thoracic, CN XI, Median, Ulnar, Radial, musculocutaneous nerves intact to motor and sensation. Fingers warm and well perfused, BCR< 2sec. Radial Pulse 2+ RADIOGRAPHIC RESULTS: Imaging was personally reviewed by myself today R shoulder xr show Reverse in good position. GT avulsion stable ASSESSMENT PLAN DIAGNOSIS: (Z47.1, Z96.611, Z96.612) Aftercare following bilateral shoulder joint replacement surgery (primary encounter diagnosis) 1. Aftercare following bilateral shoulder joint replacement surgery (Z47.1) Post-operative recovery progressing well. Right shoulder active ROM to 85 degrees, passive ROM to 100 degrees, external rotation to 20 degrees, and strength 4+ out of 5. Left shoulder exhibits good ROM and function. - Provided stretches for the right shoulder. - Initiate resistance band exercises in 2-3 weeks with 5-10 lbs resistance. - Discontinue sling use completely by the beginning of March. - Follow-up appointment scheduled for July to assess bilateral shoulder function. New Xr. All questions were answered for patient today, they should not hesitate to call the office with any issues. Medical Decision Making: Medical Decision Making Level: 1 - N/A Hung Jacobsen MD [facility] 01-28-2025 History of Present illness Narrative Radiology Service Progress Note PATIENT NAME: Tyler Torres DATE OF SERVICE: January 28, 2025 TIME: 10:11 AM PATIENT IDENTITY VERIFICATION COMPLETED USING TWO [...] Seated (Not on Exam Table) Until Exam PATIENT GENDER DATA: Assigned male at PATIENT RELEVANT IMPLANT DATA REVIEWED: Not Applicable PATIENT PRESENTS WITH AN IMPLANTABLE OR ATTACHED GEOPHYSICIST: No RADIOLOGY DEPARTMENT: General X-ray: Exam(s) Completed: Upper Extremity X-Ray(s): Shoulder, AP / TRUE AP / AXILLARY right PERIPHERAL IV DATA: Not applicable SIGNED BY: RT Brunilda(Mahesh) January 28, 2025 10:11 AM documented in this encounter [facility] 01-28-2025 Note HNO ID: [id number] Author: WILTON FARMER RT (R) Service: Radiology Author Type: Technologist Type: Progress Notes Filed: 01/28/2025 10:11 Note Text: Radiology Service Progress Note PATIENT NAME: Tyler Torres DATE OF SERVICE: January 28, 2025 TIME: 10:11 AM PATIENT IDENTITY VERIFICATION COMPLETED USING TWO [...] Seated (Not on Exam Table) Until Exam PATIENT GENDER DATA: Assigned male at PATIENT RELEVANT IMPLANT DATA REVIEWED: Not Applicable PATIENT PRESENTS WITH AN IMPLANTABLE OR ATTACHED GEOPHYSICIST: No RADIOLOGY DEPARTMENT: General X-ray: Exam(s) Completed: Upper Extremity X-Ray(s): Shoulder, AP / TRUE AP / AXILLARY right PERIPHERAL IV DATA: Not applicable SIGNED BY: RT Brunilda(R) January 28, 2025 10:11 AM [facility] 12-30-2024 Instructions Boaz White RN - 12/30/2024 10:11 AM EDT follow up in [address] Jacobsen ok to leave incision open to air, no lotions, ointments. Ok to cover with band aid/dry dressing if needed. Call if any redness, swelling, drainage. [phone] Ok to shower in 1-2 days but [...] or doing exercises documented in this encounter [facility] 12-30-2024 Note HNO ID: [id number] Author: BOAZ WHITE RN Service: ? Author Type: Registered Nurse Type: Progress Notes Filed: 12/30/2024 10:29 Note Text: ORTH CARE COORDINATION POST OPERATIVE NURSE VISIT Patient has been identified by name and date of : Yes, Patient is accompanied by: family Surgery: Right reverse Total Shoulder Arthroplasty , biceps tenodesis 99434 Date of Surgery: 12/16/2024 Activity? Patient be [...] Jacobsen scheduled. Sling adjusted Boaz White RN [facility] 12-30-2024 History of Present illness Narrative ORTH CARE COORDINATION POST OPERATIVE NURSE VISIT Patient has been identified by name and date of : Yes, Patient is accompanied by: family Surgery: Right reverse Total Shoulder Arthroplasty 69575, biceps tenodesis 11503 Date of Surgery: 12/16/2024 Activity? Patient be [...] Jacobsen scheduled. Sling adjusted Boaz White RN documented in this encounter [facility] 12-30-2024 Note HNO ID: [id number] Author: LEA JOHNSON RT(R) Service: ? Author Type: Technologist Type: [...] PATIENT PRESENTS WITH AN IMPLANTABLE OR ATTACHED GEOPHYSICIST: No RADIOLOGY DEPARTMENT: General X-ray: Exam(s) Completed: Upper Extremity X-Ray(s): Shoulder, AP / TRUE AP / AXILLARY right PERIPHERAL IV DATA: Not applicable SIGNED BY: RT Luca(R) December 30, 2024 10:05 AM [facility] 12-30-2024 History of Present illness Narrative Radiology Service [...] PATIENT PRESENTS WITH AN IMPLANTABLE OR ATTACHED GEOPHYSICIST: No RADIOLOGY DEPARTMENT: General X-ray: Exam(s) Completed: Upper Extremity X-Ray(s): Shoulder, AP / TRUE AP / AXILLARY right PERIPHERAL IV DATA: Not applicable SIGNED BY: RT Luca(R) December 30, 2024 10:05 AM documented in this encounter [facility] 12-24-2024 History of Present illness Narrative Subjective [...] visit: Drug-induced constipation documented in this encounter [facility] 12-23-2024 Miscellaneous Notes ED Outreach This documentation is being used for Transition of Care purposes: Yes/No: Yes ED Outreach Date: December 23, 2024 ED Outreach Method: COMMUNICATION METHOD: Telephone ED Outreach Attempt: second ED Outreach Outcome: Left Message Name of ED Facility: [facility] Date of ED Discharge: 12/20/2024 Discharge Diagnosis: [...] await return call. documented in this encounter [facility] 12-23-2024 Telephone encounter Note ED Outreach This documentation is being used for Transition of Care purposes: Yes/No: Yes ED Outreach Date: December 23, 2024 ED Outreach Method: COMMUNICATION METHOD: Telephone ED Outreach Attempt: second ED Outreach Outcome: Left Message Name of ED Facility: [facility] Date of ED Discharge: 12/20/2024 Discharge Diagnosis: Drug-induced constipation ED Chief Complaint: Constipation Current Symptom Status: Medication Changes Reviewed: Medication Questions/Concerns: Follow-up PCP Scheduled: Follow-up Specialist Scheduled: Follow up Testing Scheduled: Patient Contacted Office Prior to ED Visit: Additional Comments: Left message for patient to return call. Left second message for patient to contact the office. Will await return call. [facility] 12-17-2024 Note HNO ID: [id number] Author: MARK ARREAGA PA-C Service: Orthopaedic Surgery Author Type: Physician Storage Architect Type: Progress Notes Filed: 12/17/2024 11:51 Note [...] Torres DATE: 12/17/2024 TIME: 11:51 AM Vocera: [facility] 12-17-2024 Note HNO ID: [id number] Author: ASNA FUNES RN Service: Care Management Author Type: [...] Be able to go home, General wellness [place] Explained: [place] Given: No Reason Not Given: No placements necessary Are you interested in bedside delivery of your medications? Yes Discharge Planning Participant(s): Patient Patient/Family Comments: Caregiver Assessment: Transport at Discharge: Transportation Arrangements: Car (with girlfriend) Needs Prior to Discharge: Needs Prior to Discharge: To Be Determined Post-Acute Discharge Plan: SURGERY/PROCEDURE(S): Right reverse Total Shoulder Arthroplasty 42273, biceps tenodesis 17137 No DME Girlfriend to drive home at DC SIGNATURE: Sana Funes RN PATIENT NAME: Tyler Torres DATE: December 17, 2024 TIME: 9:39 AM [facility] 12-16-2024 Note HNO ID: [id number] Author: SAVANNA HANNON APRN.CRNA Service: ? Author Type: Nurse Watch Supervisor Type: Anesthesia Procedure Notes Filed: 12/16/2024 10:28 Note Text: ANESTHESIOLOGY PROCEDURE NOTE Airway General Information Procedure Start Time/Medication Administration: 12/16/2024 9:38 AM Procedure End Time: 12/16/2024 9:39 AM Patient location during procedure: OR Timeout Performed Pre-procedure: timeout performed Consent Obtained: Yes Patient identity confirmed: arm band and patient Staffing GUN NUMBER: Savanna Hannon APRN.GUN NUMBER Performed by: CORRY Indications and Patient Condition [...] December 16, 2024 TIME: 10:27 AM CSN: [id number] [facility] 12-16-2024 Note HNO ID: [id number] Author: DINAH GILL MD Service: Anesthesiology Author [...] December 16, 2024 TIME: 8:14 AM CSN: [id number] [facility] 12-13-2024 Miscellaneous Notes Refill request documented in this encounter [facility] 12-13-2024 Telephone encounter Note Refill request [facility] 12-04-2024 Note HNO ID: [id number] Author: ERIC SARMIENTO RT(R) Service: ? Author [...] PATIENT PRESENTS WITH AN IMPLANTABLE OR ATTACHED GEOPHYSICIST: No RADIOLOGY DEPARTMENT: General X-ray: Exam(s) Completed: Chest X-Ray PERIPHERAL IV DATA: Not applicable SIGNED BY: RT Phani(R) December 04, 2024 1:16 PM [facility] 12-04-2024 Note HNO ID: [id number] Author: EBONY CAMERON RT(R) Service: ? Author Type: Technologist Type: [...] PATIENT PRESENTS WITH AN IMPLANTABLE OR ATTACHED GEOPHYSICIST: No RADIOLOGY DEPARTMENT: CT; Exam(s) Completed: Upper extremity PERIPHERAL IV DATA: Not applicable SIGNED BY: RT Damaris(Mahesh) December 04, 2024 1:12 PM [facility] 12-04-2024 History and physical note Images [...] Chronic obstructive pulmonary disease, unspecified COPD type ([facility]) Does not use inhalers. Denies recent exacerbations [...] complication, without long-term current use of insulin ([facility]) Does not consistently take fasting AM blood [...] Immunization Dates Current Care Gaps Covid-19 Vaccine () Overdue since 11/05/2024 05/08/2024 Imm Admin: COVID-19 [...] (date) Cardiovascular:+hld, carotid stenosis Negative for Recent IA, Angina, Arrhythmia, CAD, Chest Pain GI:+gerd Denies [...] 372 QTC Calculation (Bazett) 398 Calculated P Letha 23 Calculated R Letha 9 Calculated T Letha 73 Impression NORMAL SINUS RHYTHM NORMAL ECG Confirmed by STEVEN KHALIL MD ([id number]) on 07/23/2024 9:38:18 PM carotids 11/26/24 found [...] normal. The chordae are thickened/calcified. There is javom-bl-onso regurgitation. There is no evidence of mitral [...] DATE: 12/04/2024 TIME: 1:09 PM PAGER/CONTACT #: [facility] 12-04-2024 History and physical note [...] Follows neurology, last OV 04/25/[address] Hatfield Tyler Torres is an 79 year old [...] Chronic obstructive pulmonary disease, unspecified COPD type ([facility]) Does not use inhalers. Denies recent exacerbations [...] complication, without long-term current use of insulin ([facility]) Does not consistently take fasting AM blood [...] is right-handed. Currently rates right shoulder pain /10 and described as an aching pain without [...] Immunization Dates Current Care Gaps Covid-19 Vaccine (2023- season) Overdue since 11/05/2024 05/08/2024 Imm Admin: [...] (date) Cardiovascular:+hld, carotid stenosis Negative for Recent IA, Angina, Arrhythmia, CAD, Chest Pain GI:+gerd Denies [...] 372 QTC Calculation (Bazett) 398 Calculated P Letha 23 Calculated R Letha 9 Calculated T Letha 73 Impression NORMAL SINUS RHYTHM NORMAL ECG Confirmed by STEVEN KHALIL MD ([id number]) on 07/23/2024 9:38:18 PM carotids 11/26/24 found [...] were noted. Event monitor 05/01/24 found in [facility] everywhere Wireless event monitoring was worn for [...] symptoms were recorded. Echo 03/25/24 found in [facility] everywhere Left ventricle appears normal in size [...] normal. The chordae are thickened/calcified. There is mzhgw-oo-cwrk regurgitation. There is no evidence of mitral [...] PM PAGER/CONTACT #: documented in this encounter [facility] 12-03-2024 Miscellaneous Notes Refill request, contract signed documented in this encounter [facility] 12-03-2024 Telephone encounter Note Refill request, contract signed [facility] 12-02-2024 History of Present illness Narrative [...] and questionably in the inferomedial left thalamus. [employer] [employer] [facility] 05/28/24 (Dr. Gail Quispe) - carotid duplex and RTC 6 mo. 12/02/24: Pt state since he was last seen in office he has overall been same. H/o previous back surgery in 2021 w/ significant complications. Had spinal surgery redone approx 1 yr ago at [facility]. Continues w/ ongoing LE and [...] complication, without long-term current use of insulin ([facility]) Gastroesophageal reflux disease without esophagitis Generalized osteoarthritis ROMEO (obstructive sleep apnea) Mixed hyperlipidemia Hypercalcemia Dizziness Double vision Elevated BP without diagnosis of hypertension CVA (cerebral vascular accident) ([facility]) BP 118/71 (BP Site: Right Arm, BP Postition: Sitting) Pulse 76 Wt 78.9 kg (174 lb) BMI 26.65 kg/m Past Medical History: Diagnosis Date Arthritis COPD (chronic obstructive pulmonary disease) ([facility]) Diabetes mellitus ([facility]) GERD (gastroesophageal reflux disease) HL (hearing [...] SIGNATURE: Adriana Lopez DO CC: MD Susie Arguello John J, MD documented in this encounter [facility] 11-29-2024 History of Present illness Narrative Subjective [...] visit: Generalized osteoarthritis documented in this encounter [facility] 11-28-2024 Instructions Aline Jones PA-C - 11/28/2024 11:16 AM EDT [facility] PATIENT PREOPERATIVE INSTRUCTIONS Hung Jacobsen MD has scheduled you for your procedure at this surgery center: [facility]: [phone] --[address] [place] [address]. On your scheduled day of surgery, please [...] office. If you are currently using a nisi-lad-nmcm injectable or oral medication for diabetes or [...] or other anticoagulants without consulting with your upholstery handler or prescribing physician. - Stop ALL herbal [...] Procedures: - YOU MUST HAVE A RESPONSIBLE FLEET COORDINATOR TAKE YOU HOME. A YARN EXAMINER OR PHARMACEUTICAL PHYSICIAN CANNOT BE MADE A RESPONSIBLE FLEET COORDINATOR. - We recommend that a responsible person stays with you overnight to take care of you. - You cannot stay in a hotel alone after outpatient surgery. You will not be permitted to have your surgery, if you do not have someone to take care of you. If you already have an Advance Directive, please fax a copy to [phone] or email to for it to be [...] Aline Jones PA-C documented in this encounter [facility] 11-18-2024 Hospital Discharge instructions Patient [...] Up Care 11/07/2024 15:22:42 With:Olu Sosa Address: [address] [place] [phone] Business (1) When: Unknown Comments:Obtain renal US in 6 weeks, call for results. Office to schedule routine follow up in 6 months with renal US [facility] 11-18-2024 Note Patient Education Cystoscopy with Stent [...] you have a fever over 100 degrees. [facility] 11-01-2024 History of Present illness Narrative Subjective [...] stone Generalized osteoarthritis documented in this encounter [facility] 10-31-2024 Miscellaneous Notes Refill request documented in this encounter [facility] 10-31-2024 Telephone encounter Note Refill request [facility] 10-24-2024 History of Present illness Narrative [...] 2015 and colonoscopy History of esophagogastroduodenoscopy (EGD) 2017 for esophageal stricture Hyperlipidemia (CMS/HCC) Leg pain Lower back pain Neuropathy in diabetes ([facility]) Onychomycosis S/P epidural steroid injection 2012 Tinea pedis Medications: Current Outpatient Medications: celecoxib (CeleBREX) 200 MG capsule, Take 200 mg by mouth in the morning., Disp: , Rfl: cetirizine (ZyrTEC) 10 MG tablet, Take 10 mg by mouth 1 (one) time each day at the same time., Disp: , Rfl: cholecalciferol (Vitamin D-3) 50 MCG (1999 UT) capsule, Take 2,000 Units by mouth [...] Resource Strain: Low Risk (08/24/2023) Received from [facility], [facility] Overall Financial Resource Strain (CARDIA) Difficulty of Paying Living Expenses: Not hard at all Food Insecurity: No Food Insecurity (05/29/2024) Received from [facility] Hunger Screening Within the past 12 months we worried whether our food would run out before we got money to buy more.: Never True Within the past 12 months the food we bought just didn't last and we didn't have money to get more.: Never True Transportation Needs: No Transportation Needs (03/24/2024) Received from [facility] PRAPARE - Transportation Lack of Transportation (Medical): No Lack of Transportation (Non-Medical): No Physical Activity: Not on file Stress: Not on file Social Connections: Not on file Intimate Partner Violence: Not on file Housing Stability: Low Risk (03/24/2024) Received from [facility] Housing Instability Are you worried or [...] complication, with long-term current use of insulin ([facility]) 2. Pain due to onychomycosis of toenails [...] Manan Baker DPM documented in this encounter [facility] 10-16-2024 Hospital Discharge instructions Patient Education 10/16/2024 11:58:58 Kidney Stones, Fulp-lc-Tagy Kidney Stones Kidney stones are rock-like masses [...] Follow these instructions at home: Medicines Take clrh-gmg-jvftttm and prescription medicines only as told by [...] Kidney Foundation (NKF): kidney.org [facility] ([facility]): urologyhealth.org Contact a doctor if: You have [...] provider. Document Revised: 03/24/2023 Document Reviewed: 03/24/2023 [employer] Patient Education 2023 Perficient. Follow Up Care 10/04/2023 11:04:51 With:Ian METZ, MILTON Watts, URO Address: When: Unknown [facility] 10-16-2024 Note Patient Education Urology Kidney [...] these instructions at home: Medicines ??? Take uozx-put-zgborou and prescription medicines only as told by [...] provider. Document Revised: 03/24/2023 Document Reviewed: 03/24/2023 [employer] Patient Education ? 2023 Perficient. [facility] 10-15-2024 Note HNO ID: [id number] Author: HUNG JACOBSEN MD Service: ? Author [...] related complications, post-op medical complications such as IA/pneumonia/etc, and were also discussed, and patient advised to discuss further with preoperative clearance physicians and anesthesia team prior to surgery. All questions were answered for patient today, they should not hesitate to call the office with any issues. Medical Decision Making: Medical Decision Making Level: 1 - N/A Hung Jacobsen MD [facility] 10-15-2024 History of Present illness Narrative SHOULDER/ELBOW [...] related complications, post-op medical complications such as IA/pneumonia/etc, and were also discussed, and patient advised to discuss further with preoperative clearance physicians and anesthesia team prior to surgery. All questions were answered for patient today, they should not hesitate to call the office with any issues. Medical Decision Making: Medical Decision Making Level: 1 - N/A Hugn Jacobsen MD documented in this encounter [facility] 10-15-2024 History of Present illness [...] PATIENT PRESENTS WITH AN IMPLANTABLE OR ATTACHED GEOPHYSICIST: No RADIOLOGY DEPARTMENT: General X-ray: Exam(s) Completed: Upper Extremity X-Ray(s): Shoulder, AP / TRUE AP / AXILLARY left PERIPHERAL IV DATA: Not applicable SIGNED BY: MARY Worley) October 15, 2024 2:58 PM documented in this encounter [facility] 10-15-2024 Note HNO ID: [id number] Author: WILTON FARMER RT(R) Service: Radiology Author [...] PATIENT PRESENTS WITH AN IMPLANTABLE OR ATTACHED GEOPHYSICIST: No RADIOLOGY DEPARTMENT: General X-ray: Exam(s) Completed: Upper Extremity X-Ray(s): Shoulder, AP / TRUE AP / AXILLARY left PERIPHERAL IV DATA: Not applicable SIGNED BY: RT Brunilda(R) October 15, 2024 2:58 PM [facility] 10-02-2024 Miscellaneous Notes Refill request, contract signed and appointments up to date. documented in this encounter [facility] 10-02-2024 Telephone encounter Note Refill request, contract signed and appointments up to date. [facility] 09-16-2024 Miscellaneous Notes Per October 2024 recall, patient is due for follow up with Vascular Fellow. Please call and schedule patient. Spoke with patient and scheduled appt documented in this encounter [facility] 09-16-2024 Telephone encounter Note Per October 2024 recall, patient is due for follow up with Vascular Fellow. Please call and schedule patient. [facility] 09-16-2024 Telephone encounter Note Spoke with patient and scheduled appt [facility] 09-03-2024 Instructions Hung Jacobsen MD - 09/03/2024 4:14 PM EST Overhead jarek for shoulder stretches. Or use a stick. documented in this encounter [facility] 09-03-2024 Note HNO ID: [id number] Author: HUNG JACOBSEN MD Service: ? Author [...] (Hcc) Former Smoker Chronic Obstructive Pulmonary Disease (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) Mixed Hyperlipidemia Obstructive Sleep Apnea Syndrome Peripheral Venous Insufficiency Cva (Cerebral Vascular Accident) ([facility]) Carotid Stenosis ALLERGIES Allergen Reactions Simvastatin Unknown [...] Level: 1 - N/A Hung Jacobsen MD [facility] 09-03-2024 History of Present illness Narrative SHOULDER/ELBOW [...] Hung Jacobsen MD documented in this encounter [facility] 09-03-2024 History of Present illness [...] PATIENT PRESENTS WITH AN IMPLANTABLE OR ATTACHED GEOPHYSICIST: No RADIOLOGY DEPARTMENT: General X-ray: Exam(s) Completed: Upper Extremity X-Ray(s): Shoulder, AP / TRUE AP / AXILLARY left PERIPHERAL IV DATA: Not applicable SIGNED BY: MARY Pike) September 03, 2024 2:25 PM documented in this encounter [facility] 09-03-2024 Note HNO ID: [id number] Author: RYAN DAY RT (R) Service: Radiology Author Type: Technologist Type: Progress [...] PATIENT PRESENTS WITH AN IMPLANTABLE OR ATTACHED GEOPHYSICIST: No RADIOLOGY DEPARTMENT: General X-ray: Exam(s) Completed: Upper Extremity X-Ray(s): Shoulder, AP / TRUE AP / AXILLARY left PERIPHERAL IV DATA: Not applicable SIGNED BY: RT Shahzad(R) September 03, 2024 2:25 PM [facility] 08-27-2024 Note HNO ID: [id number] Author: Mahesh SMALL MD Service: ? Author [...] time with new x-rays. Mahesh Small MD [facility] 08-27-2024 History of Present illness Narrative Arely [...] Orthopaedic Surgery PGY-2 documented in this encounter [facility] 08-27-2024 Note HNO ID: [id number] Author: PATTY FITZGERALD MD Service: ? Author [...] evaluation Patty Fitzgerald MD Orthopaedic Surgery PGY-2 [facility] 08-27-2024 History of Present illness Narrative Radiology [...] PATIENT PRESENTS WITH AN IMPLANTABLE OR ATTACHED GEOPHYSICIST: No RADIOLOGY DEPARTMENT: General X-ray: Exam(s) Completed: Spine X-Ray(s): Scoliosis Series PERIPHERAL IV DATA: Not applicable SIGNED BY: RT Phani(R) August 27, 2024 2:19 PM documented in this encounter [facility] 08-27-2024 Note HNO ID: [id number] Author: ERIC SARMIENTO RT(Mahesh) Service: ? Author Type: Technologist Type: [...] PATIENT PRESENTS WITH AN IMPLANTABLE OR ATTACHED GEOPHYSICIST: No RADIOLOGY DEPARTMENT: General X-ray: Exam(s) Completed: Spine X-Ray(s): Scoliosis Series PERIPHERAL IV DATA: Not applicable SIGNED BY: RT Phani(R) August 27, 2024 2:19 PM [facility] 08-08-2024 Instructions Tamera Pineda APRN.GAS BURNER OPERATOR - 08/08/2024 1:29 PM EST Images from [...] pendulum. Gently swing it in a small tanacross that is parallel to the floor. Do this for 10 to 15 seconds. Then allow the arm to swing back and forth (as if you were bowling). Do this for 10 to 15 seconds. documented in this encounter [facility] 08-08-2024 Note HNO ID: [id number] Author: TAMERA PINEDA APRN.CNP Service: ? Author Type: Nurse Practitioner Type: Progress Notes Filed: 08/08/2024 16:22 Note Text: SHOULDER/ELBOW ESTABLISHED VISIT SERVICE DATE: 08/08/2024 PCP: Armando Richards MD, MD Date of Surgery: 07/25/24 Surgery: Left reverse Total Shoulder Arthroplasty 13394, biceps tenodesis 52018 Follow-up time: 2 weeks SUBJECTIVE HISTORY OF [...] (Hcc) Former Smoker Chronic Obstructive Pulmonary Disease ([facility]) Lumbar Stenosis With Neurogenic Claudication Status Post Lumbar Spinal Fusion Calculus of Kidney Elevated Bp Without Diagnosis of Hypertension Finding of Above Normal Blood Pressure Gastroesophageal Reflux Disease Without Esophagitis Diabetes Mellitus ([facility]) Mixed Hyperlipidemia Obstructive Sleep Apnea Syndrome Peripheral Venous Insufficiency Cva (Cerebral Vascular Accident) ([facility]) Carotid Stenosis ALLERGIES Allergen Reactions Simvastatin Unknown [...] which included preparing to see the patient, egpz-qx-cuhc patient care, completing clinical documentation, obtaining and/or reviewing separately obtained history, performing a medically appropriate examination, counseling and educating the patient/family/caregiver, ordering medications, tests, or procedures, and communicating with other HCPs (not separately reported). Tamera Pineda APRN, GAS BURNER OPERATOR [facility] 08-08-2024 History of Present illness Narrative SHOULDER/ELBOW ESTABLISHED VISIT SERVICE DATE: 08/08/2024 PCP: Armando Richards MD, MD Date of Surgery: 07/25/24 Surgery: Left reverse Total Shoulder Arthroplasty 06477, biceps tenodesis 81194 Follow-up time: 2 weeks SUBJECTIVE HISTORY OF [...] Complication, Without Long-Term Current Use of Insulin ([facility]) Former Smoker Chronic Obstructive Pulmonary Disease (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) Mixed Hyperlipidemia Obstructive Sleep Apnea Syndrome Peripheral Venous Insufficiency Cva (Cerebral Vascular Accident) ([facility]) Carotid Stenosis ALLERGIES Allergen Reactions Simvastatin Unknown [...] which included preparing to see the patient, zcts-df-rrya patient care, completing clinical documentation, obtaining and/or reviewing separately obtained history, performing a medically appropriate examination, counseling and educating the patient/family/caregiver, ordering medications, tests, or procedures, and communicating with other HCPs (not separately reported). Tamera Pineda APRN, GAS BURNER OPERATOR documented in this encounter [facility] 08-05-2024 Miscellaneous Notes Refill request contract signed and appointments up to date. documented in this encounter [facility] 08-05-2024 Telephone encounter Note Refill request contract signed and appointments up to date. [facility] 07-31-2024 Telephone encounter Note DOS - 07/25/2024. Type of Surgery L TSA . Surgeon - Dr. Jacobsen Catheter site - Left interscalene Solution Ropi 0.2%. Rates 11/16/59. Phone number [phone] 07/31 Called and spoke with patient. Pump discontinued and catheter removed yesterday without difficulty. Site is unremarkable. [facility] 07-31-2024 Miscellaneous Notes DOS - 07/25/2024. Type of Surgery L TSA . Surgeon - Dr. Jacobsen Catheter site - Left interscalene Solution Ropi 0.2%. Rates 11/16/59. Phone number [phone] 07/31 Called and spoke with patient. Pump discontinued and catheter removed yesterday without difficulty. Site is unremarkable. DOS - 07/25/2024. Type of Surgery L TSA . Surgeon - Dr. Jacobsen Catheter site - Left interscalene Solution Ropi 0.2%. Rates 11/16/59. Phone number [phone] 07/30 Called and talked to pt, states pump is shut off and will remove this afternoon. Will call patient again tomorrow. DOS - 07/25/2024. Type of Surgery L TSA . Surgeon - Dr. Jacobsen Catheter site - Left interscalene Solution Ropi 0.2%. Rates 11/16/59. Phone number [phone] 07/29 Called and talked to pt, states [...] Solution Ropi 0.2%. Rates 11/16/59. Phone number [phone] July 27, 2024 1:42 PM Called and [...] pt again Monday Comments: Continue Sandor Cope APRN.GAS BURNER OPERATOR documented in this encounter [facility] 07-30-2024 Telephone encounter Note DOS - 07/25/2024. Type of Surgery L TSA . Surgeon - Dr. Jacobsen Catheter site - Left interscalene Solution Ropi 0.2%. Rates 11/16/59. Phone number [phone] 07/30 Called and talked to pt, states pump is shut off and will remove this afternoon. Will call patient again tomorrow. [facility] 07-29-2024 Telephone encounter Note DOS - 07/25/2024. Type of Surgery L TSA . Surgeon - Dr. Jacobsen Catheter site - Left interscalene Solution Ropi 0.2%. Rates 11/16/59. Phone number [phone] 07/29 Called and talked to pt, states [...] tomorrow. Will call tomorrow to follow up. [facility] 07-26-2024 Telephone encounter Note DOS - 07/25/2024. Type of Surgery L TSA . Surgeon - Dr. Jacobsen Catheter site - Left interscalene Solution Ropi 0.2%. Rates 11/16/59. Phone number [phone] July 27, 2024 1:42 PM Called and [...] pt again Monday Comments: Continue Sandor Cope APRN.GAS BURNER OPERATOR [facility] Work Phone: 07-26-2024 Note HNO ID: [id number] Author: ALINE BYRD PA-C Service: Orthopaedic Surgery Author Type: Physician Storage Architect Type: Plan of Care Filed: 07/26/2024 11:43 [...] K 4.0 4.4 CHLOR 105 103 CO2 ANION 8 10 BUN 16 9 CREAT [...] Antibiotics: Ancef periop 24 hrs - complete Haro: none Diet: regular DVT prophylaxis: ASA 81 [...] recs. Aline Byrd PA-C Orthopaedic Surgery Pager: [phone] If urgent, please page [phone]) after business hours from 5PM-7AM and on weekends. Date: July 26, 2024 Time: 11:24 AM [facility] 07-26-2024 Note HNO ID: [id number] Author: SANDOR COPE APRN.GAS BURNER OPERATOR Service: Pain Management Author Type: Nurse Practitioner [...] Given, 07/26 0839 07/25/24 1706 -- 07/25/24 1715 pneumatic compression stockings ([place]) 07/25/24 1715 activity - mobilize patient ([place]) Assessment/Plan Tyler Torres is a 79 [...] analgesic regimen. Plan: (more content not included)... [facility] 07-26-2024 Note HNO ID: [id number] Author: DANIEL ZUNIGA MD Service: Orthopaedic Surgery [...] Daniel Zuniga MD PGY-3 Orthopaedic Surgery Cell/pager: [phone] For [facility] floor issues or questions between 6:00a and 5:00p weekdays[place] [phone]. At all other times, or if urgent, please page the orthopaedic on-call resident at: [facility]: [id number] ([id number]) [place]: [address] [place]: [address] [place]: [address] [facility] 07-25-2024 Note HNO ID: [id number] Author: JASEN BAKER RN Service: ? Author Type: Registered Nurse Type: Nursing Progress Note Filed: 07/25/2024 17:22 Note Text: Other: 1715-pt admitted from pacu. no numbness/tingling lue. pt denies pain. no distress. [facility] 07-25-2024 Note HNO ID: [id number] Author: SHANNON ABREU APRN.GUN NUMBER Service: ? Author Type: Nurse Watch Supervisor Type: Anesthesia Procedure Notes Filed: 07/25/2024 11:55 Note Text: ANESTHESIOLOGY PROCEDURE NOTE Airway General Information Procedure Start Time/Medication Administration: 07/25/2024 11:30 AM Procedure End Time: 07/25/2024 11:31 AM Patient location during procedure: OR Patient identity confirmed: arm band Staffing GUN NUMBER: Shannon Abreu APRN.GUN NUMBER Performed by: GUN NUMBER Indications and Patient Condition Indications for airway management: anesthesia Preoxygenated: yes anesthesia circuit Patient position: sniffing Method: asleep Cricoid Pressure: No Difficult Mask: No Airway Accessory: oral airway Final Airway Details Final airway type: endotracheal airway Final Endotracheal Airway: ETT Cuffed: yes Successful intubation technique: video laryngoscopy Devices used: [employer] Endotracheal tube insertion site: oral Blade size: #4 ETT size (mm): 7.5 Measured from: lips Measurement (cm): 22 Placement verified by: capnometry Cormack-Lehane Classification: grade I - full view of glottis Number of attempts at approach: 1 Failed airway: no Unrecognized esophageal intubation: no Airway not difficult SIGNATURE: Shannon Abreu APRN.GUN NUMBER PATIENT NAME: Tyler Torres DATE: July 25, 2024 TIME: 11:55 AM CSN: [id number] [facility] 07-25-2024 Note HNO ID: [id number] Author: DEJUAN DOTY MD Service: ? Author [...] identity confirmed: arm band, patient and care valve steamer Reason for block: post-op pain management/at surgeon's [...] July 25, 2024 TIME: 10:32 AM CSN: [id number] [facility] 07-23-2024 History of Present illness Narrative Patient here for BP check due to having fatigue, he is scheduled for surgery on 07/25/2024. Dr Richards was told of his BP and patient was told to hold his Lisinopril for 1 day and continue taking his BP. documented in this encounter [facility] 07-22-2024 History and physical note Images from [...] HgbA1c 6.1% 03/24/24 CVA (cerebral vascular accident) ([facility]) Assessment: hx 03/2024 Follows up with neurology, [...] STOP-Bang Score: 0 (Non-compliant with CPAP ) [id number] Score: Age: >=75 Sex: male [id number] Score: ARISCAT Score: Age: 51-80 Preoperative SpO2: [...] Peripheral Venous Insufficiency Cva (Cerebral Vascular Accident) ([facility]) Carotid Stenosis Subjective CHIEF COMPLAINT: Pre-op exam [...] Prior to Admission medications as of 07/22/24 2099 Medication Sig Last Dose Taking rosuvastatin (CRESTOR) [...] COVID-19 vaccine, age 12+ yr, 2022- season ([employer]ER-BIONTECH) 06/09/2022 Imm Admin: COVID-19 vaccine, age 12+ [...] voices comprehension and compliance. SIGNATURE: Eric Kebede APRN.MIRYAM PATIENT NAME: Tyler Torres DATE: 07/22/2024 TIME: 1:21 PM [facility] 07-22-2024 History and physical note Images [...] complication, without long-term current use of insulin ([facility]) Assessment: managed with oral med, stable Follows up with PCP BG at home 100's HgbA1c 6.1% 03/24/24 CVA (cerebral vascular accident) ([facility]) Assessment: hx 03/2024 Follows up with neurology, [...] STOP-Bang Score: 0 (Non-compliant with CPAP ) [id number] Score: Age: >=75 Sex: male [id number] Score: ARISCAT Score: Age: 51-80 Preoperative SpO2: [...] Peripheral Venous Insufficiency Cva (Cerebral Vascular Accident) ([facility]) Carotid Stenosis Subjective CHIEF COMPLAINT: Pre-op exam [...] Diagnosis Date COPD (chronic obstructive pulmonary disease) ([facility]) Diabetes mellitus (HCC) GERD (gastroesophageal reflux disease) [...] COVID-19 vaccine, age 12+ yr, 2022- season ([employer]) 06/09/2022 Imm Admin: COVID-19 vaccine, age 12+ yr, bivalent ([employer]BIONTECH) 12/31/2021 Imm Admin: COVID-19 original vaccine, age 12+ yr, monovalent ([employer]-DanceJamNTECH - LI TOP) 06/12/2021 Imm Admin: COVID-19 original vaccine, age 12+ yr, monovalent ([employer]-BIONTECH - PURPLE TOP) Only the first 5 [...] TIME: 1:21 PM documented in this encounter [facility] 07-22-2024 Note HNO ID: [id number] Author: KELLY CASEY RT(Mahesh) Service: ? Author [...] PATIENT PRESENTS WITH AN IMPLANTABLE OR ATTACHED GEOPHYSICIST: No RADIOLOGY DEPARTMENT: CT; Exam(s) Completed: Upper extremity PERIPHERAL IV DATA: Not applicable SIGNED BY: MARY Quintanilla) July 22, 2024 9:59 AM [facility] 07-22-2024 History of Present illness Narrative Radiology [...] PATIENT PRESENTS WITH AN IMPLANTABLE OR ATTACHED GEOPHYSICIST: No RADIOLOGY DEPARTMENT: CT; Exam(s) Completed: Upper extremity PERIPHERAL IV DATA: Not applicable SIGNED BY: MARY Quintanilla) July 22, 2024 9:59 AM documented in this encounter [facility] 07-22-2024 Note HNO ID: [id number] Author: CONCHIS ACOSTA RT(R) Service: ? Author [...] PATIENT PRESENTS WITH AN IMPLANTABLE OR ATTACHED GEOPHYSICIST: No RADIOLOGY DEPARTMENT: General X-ray: Exam(s) Completed: Chest X-Ray PERIPHERAL IV DATA: Not applicable SIGNED BY: RT Lou(Mahesh) July 22, 2024 9:49 AM [facility] 07-22-2024 History of Present illness Narrative Radiology [...] PATIENT PRESENTS WITH AN IMPLANTABLE OR ATTACHED GEOPHYSICIST: No RADIOLOGY DEPARTMENT: General X-ray: Exam(s) Completed: Chest X-Ray PERIPHERAL IV DATA: Not applicable SIGNED BY: RT Lou(R) July 22, 2024 9:49 AM documented in this encounter [facility] 07-22-2024 Instructions Eric Kebede APRN.[facility] - 07/22/2024 7:15 AM EST Images from the original note were not included. [facility] PATIENT PREOPERATIVE INSTRUCTIONS Hung Jacobsen MD has scheduled you for your procedure at this surgery center: [facility] [place] Scheduling Office: [phone] --[address] [place] [address]. Please read below carefully for your personalized [...] office. If you are currently using a [id number]-[id number] injectable or oral medication for diabetes or [...] Procedures: - YOU MUST HAVE A RESPONSIBLE FLEET COORDINATOR TAKE YOU HOME. A YARN EXAMINER OR PHARMACEUTICAL PHYSICIAN CANNOT BE MADE A RESPONSIBLE FLEET COORDINATOR. - We recommend that a responsible person [...] call the Monday before. Your surgeon s corporate scheduler will tell you what time to call the office. - If you have not reached the departmental corporate scheduler by 5 P.M., call [phone] after 5 P.M. the day before your surgery. Please be aware that emergency situations arise, which may delay or change your surgical time. If this happens, we will notify you as soon as possible and regret any inconvenience. If you already have an Advance Directive, please fax a copy to [phone] or email to for it to be [...] chart that day. documented in this encounter [facility] 07-20-2024 Miscellaneous Notes Refill request documented in this encounter [facility] 07-20-2024 Telephone encounter Note Refill request [facility] 06-27-2024 Miscellaneous Notes Refill request documented in this encounter [facility] 06-27-2024 Telephone encounter Note Refill request [facility] 06-27-2024 Miscellaneous Notes Refill request documented in this encounter [facility] 06-27-2024 Telephone encounter Note Refill request [facility] 06-19-2024 Miscellaneous Notes Refill request documented in this encounter [facility] 06-19-2024 Telephone encounter Note Refill request [facility] 06-19-2024 Miscellaneous Notes Patient wants to know if he is to stay on celebrex. And if he is, can you be the one to refill it. If it helps him with his symptoms, he can stay on it and it can be refilled through here. Spoke with patient, he would like to continue celebrex, refill request sent documented in this encounter [facility] 06-19-2024 Telephone encounter Note Patient wants to know if he is to stay on celebrex. And if he is, can you be the one to refill it. [facility] Telephone encounter Note If it helps him with his symptoms, he can stay on it and it can be refilled through here. [facility] [employer] [facility] 06-19-2024 Telephone encounter Note Spoke with patient, he would like to continue celebrex, refill request sent [facility] 06-18-2024 Note HNO ID: [id number] Author: HUNG JACOBSEN MD Service: ? Author [...] upper extremity he may have a short long-term facility stay. I discussed the below risks, [...] related complications, post-op medical complications such as IA/pneumonia/etc, and were also discussed, and patient advised to discuss further with preoperative clearance physicians and anesthesia team prior to surgery. All questions were answered for patient today, they should not hesitate to call the office with any issues. Medical Decision Making: Medical Decision Making Level: 1 - N/A Hung Jacobsen MD [facility] 06-18-2024 History of Present illness Narrative SHOULDER/ELBOW [...] upper extremity he may have a short long-term facility stay. I discussed the below risks, [...] related complications, post-op medical complications such as IA/pneumonia/etc, and were also discussed, and patient advised to discuss further with preoperative clearance physicians and anesthesia team prior to surgery. All questions were answered for patient today, they should not hesitate to call the office with any issues. Medical Decision Making: Medical Decision Making Level: 1 - N/A Hung Jacobsen MD documented in this encounter [facility] 06-10-2024 Miscellaneous Notes Refill request. documented in this encounter [facility] 06-10-2024 Telephone encounter Note Refill request. [facility] 06-06-2024 History of Present illness Narrative [...] esophagogastroduodenoscopy (EGD) 2018 for esophageal stricture Hyperlipidemia ([facility]) Leg pain Lower back pain Neuropathy in diabetes ([facility]) Onychomycosis S/P epidural steroid injection 2013 Tinea [...] Resource Strain: Low Risk (08/24/2023) Received from [facility], [facility] Overall Financial Resource Strain (CARDIA) Difficulty of Paying Living Expenses: Not hard at all Food Insecurity: No Food Insecurity (05/29/2024) Received from [facility] Hunger Screening Within the past 12 months we worried whether our food would run out before we got money to buy more.: Never True Within the past 12 months the food we bought just didn't last and we didn't have money to get more.: Never True Transportation Needs: No Transportation Needs (03/24/2024) Received from [facility] [employer] PRAP[employer] - Transportation Lack of Transportation (Medical): No Lack of Transportation (Non-Medical): No Physical Activity: Not on file Stress: Not on file Social Connections: Not on file Intimate Partner Violence: Not on file Housing Stability: Low Risk (03/24/2024) Received from [facility] Housing Instability Are you worried or [...] complication, with long-term current use of insulin ([facility]) 2. Pain due to onychomycosis of toenails [...] Manan Baker DPM documented in this encounter [facility] 05-29-2024 History of Present illness Narrative Subjective [...] Do you have a durable power of liquid floor and wall applier?: (!) No Cognitive Screening Do you have [...] complication, without long-term current use of insulin ([facility]) documented in this encounter [facility] 05-28-2024 History of Present illness Narrative Images from the original note were not included. [facility] [address] [place] [address] Subjective: Patient ID: Tyler Torres is a [...] complication, without long-term current use of insulin ([facility]) Gastroesophageal reflux disease without esophagitis Generalized osteoarthritis [...] Diagnosis Date COPD (chronic obstructive pulmonary disease) ([facility]) ROMEO (obstructive sleep apnea) Past Surgical History: [...] Resource Strain: Low Risk (08/24/2023) Received from [facility], [facility] Overall Financial Resource Strain (CARDIA) [...] and nontender and no masses are palpable. SPRING FORMER HAND: Speech is normal. Face is symmetrical. No [...] artery - [facility] 79-year-old who had episode of double vision [...] corrected. Thank you for your understanding. Julio Quisep MD documented in this encounter [facility] 05-08-2024 Miscellaneous Notes Sent email to [employer] to check on shipment of event monitor. Was processed on 05/01 and still has a status of awaiting shipment. Event monitor cannot be sent to PO Box. Can we get an actual address for patient so we can mail it? Images from the original note were not included. Please see additional encounter Sent address to [facility]. Patient wearing though 06/17 Event monitor completed. Please review and advise. Event monitor looks benign. Followup in 6 months. Called patient to inform. He voiced understanding. documented in this encounter [facility] 05-08-2024 Telephone encounter Note Sent email to [employer] to check on shipment of event monitor. Was processed on 05/01 and still has a status of awaiting shipment. [facility] 05-08-2024 Telephone encounter Note Event monitor cannot be sent to PO [employer]. Can we get an actual address for patient so we can mail it? [facility] 05-08-2024 Telephone encounter Note Images from the original note were not included. Please see additional encounter [facility] 05-08-2024 Telephone encounter Note Sent address to [facility]. [facility] 05-08-2024 Telephone encounter Note Patient wearing though 06/17 [facility] 05-08-2024 Telephone encounter Note Event monitor completed. Please review and advise. [facility] 05-08-2024 Telephone encounter Note Event monitor looks benign. Followup in 6 months. [employer] Work Phone: 05-08-2024 Telephone encounter Note Called patient to inform. He voiced understanding. [employer] 04-25-2024 History of Present illness Narrative Images from the original note were not included. [facility] [address] [id number] Patient: Tyler Torres Date of : 1945 [...] Diagnosis Date COPD (chronic obstructive pulmonary disease) ([facility]) ROMEO (obstructive sleep apnea) Family History Problem [...] complication, without long-term current use of insulin ([facility]) Gastroesophageal reflux disease without esophagitis Generalized osteoarthritis [...] This note was completed using a voice pressure test operator system. Every effort was made to ensure accuracy; however, inadvertent computerized pressure test operator errors may be present Attending Attestation: I saw the patient. I participated and was physically present during the critical/ryan portions of the service. I was directly involved in the management and treatment plan of the patient. I reviewed the resident's note. documented in this encounter [facility] 04-25-2024 Instructions Lyubov Butt DO - [...] sooner if needed. documented in this encounter [facility] 04-22-2024 Miscellaneous Notes Tyler stopped in, he is wondering if he needs to stay on the medicines that you started in the hospital for him? If so, he made it sound like it needed to be called in. Also, does he need to go to his vascular appt on in [place]? Please advise Yes, stay on Plavix, lisinopril, Crestor. Scripts sent to [facility]. Yes, keep vascular follow up. Left voice mail stating what Dr Richards said and told him if he had any questions, please call the office documented in this encounter [facility] 04-22-2024 Telephone encounter Note Tyler stopped in, he is wondering if he needs to stay on the medicines that you started in the hospital for him? If so, he made it sound like it needed to be called in. Also, does he need to go to his vascular appt on in [place]? Please advise [facility] 04-22-2024 Telephone encounter Note Yes, stay on Plavix, lisinopril, Crestor. Scripts sent to [facility]. Yes, keep vascular follow up. [facility] 04-22-2024 Telephone encounter Note Left voice mail stating what Dr Richards said and told him if he had any questions, please call the office [facility] 04-18-2024 Miscellaneous Notes Refill request documented in this encounter [facility] 04-18-2024 Telephone encounter Note Refill request [facility] 04-17-2024 Miscellaneous Notes Refill request documented in this encounter [facility] 04-17-2024 Telephone encounter Note Refill request [facility] 04-17-2024 Miscellaneous Notes Refill request documented in this encounter [facility] 04-17-2024 Telephone encounter Note Refill request [facility] 04-01-2024 Miscellaneous Notes Event monitor is [...] the device and why it is necessary. Customer Retention Specialist tried to explain the reasoning, but he would like to hear it from a doctor. However, if he opts into receiving the device, the address is [address] [place] [address]. documented in this encounter [facility] 04-01-2024 Telephone encounter Note Event monitor is pending shipment due to patient's address being PO Box and it cannot be shipped to a PO box. Can we call patient and ask for a direct address for monitor to be mailed to. [facility] 04-01-2024 Telephone encounter Note Called pt to inform what was noted below. Pt was unavailable; left a voicemail. [facility] 04-01-2024 Telephone encounter Note Please try to call patient again to ask for a direct address for monitor to be mailed. [facility] 04-01-2024 Telephone encounter Note Called patient. He states at this time he would like to wait until he sees the fellow on 04/25. He wants to hear their opinion on completing the device and why it is necessary. Customer Retention Specialist tried to explain the reasoning, but he would like to hear it from a doctor. However, if he opts into receiving the device, the address is [address] [place] [address]. 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 Echo pending read but if comes back this evening they are planning on discharging. We recommended 30 day monitor if echo didn't finding anything else significant. F/u in stroke clinic in 4-6 weeks with Fausto/Sindhu/Stroke fellow. Patient is [place] so tele was a little hard for him. Called patient and call couldn't be completed Called spouse and left Vm Patient returned call, please call patient back to schedule. Patient is requesting to be seen in [place] if possible. Best Contact: Called Patient back and scheduled appt with [place] on 04/25/24. [place] location is booked out until August. 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 Echo pending read but if comes back this evening they are planning on discharging. We recommended 30 day monitor if echo didn't finding anything else significant. F/u in stroke clinic in 4-6 weeks with Fausto/Sindhu/Stroke fellow. Patient is [place] so tele was a little hard for him. [facility] 03-26-2024 Telephone encounter Note Called patient and call couldn't be completed Called spouse and left Vm [facility] 03-26-2024 Telephone encounter Note Patient returned call, please call patient back to schedule. Patient is requesting to be seen in [place] if possible. Best Contact: [facility] 03-26-2024 Telephone encounter Note Called Patient back and scheduled appt with [place] on 04/25/24. [place] location is booked out until August. [facility] 03-26-2024 Miscellaneous Notes Transition of Care (*required) *Additional Questions/Concerns Requiring PCP Follow-Up: -Patient does not have KEVYN appointment scheduled This documentation is being used for Transition of Care purposes: Yes Goal: Patient will demonstrate a safe transition from hospital to home Diagnosis on Discharge: Dizziness Discharge Specialty: Neurology *Name of Discharging Facility: [facility] Date of Facility Discharge: Admission 03/24/24 Discharge 03/25/24 Date of Interactive Contact and Name of Paragliding Instructor: 03/26/24 8727 Spoke to patient *Medication Review Completed: No [...] the Patient: NA [facility] Telephone encounter Note Transition of Care (*required) *Additional Questions/Concerns Requiring PCP Follow-Up: -Patient does not have KEVYN appointment scheduled This documentation is being used for Transition of Care purposes: Yes Goal: Patient will demonstrate a safe transition from hospital to home Diagnosis on Discharge: Dizziness Discharge Specialty: Neurology *Name of Discharging Facility: [facility] Date of Facility Discharge: Admission 03/24/24 Discharge 03/25/24 Date of Interactive Contact and Name of Paragliding Instructor: 03/26/24 8630 Spoke to patient *Medication Review Completed: No [...] Other Services Utilized/Needed by the Patient: NA [facility] 03-25-2024 Nurse Note Received EPIC chat from Dr Richards to discharge patient. He reviewed results of echo and will follow up. [facility] 03-25-2024 Hospital course Narrative 79 years [...] in my office. documented in this encounter [facility] 03-25-2024 Nurse Note Received EPIC chat [...] been commented on. documented in this encounter [facility] 03-25-2024 Progress note Formatting of t his note might be different from the original. This patient does qualify for the [facility] ACO waiver if it is needed, as long as they are not already a alf resident at a facility. [facility] 03-25-2024 Miscellaneous Notes This patient does qualify for the [facility] A[facility] waiver if it is needed, as long as they are not already a alf resident at a facility. Occupational Therapy CANCEL [...] Description: INTERVENTIONS: 1. Encourage patient or legal contracts representative to report early pain and ask [...] per policy 9. Teach patient or legal contracts representative interventions for comforting Outcome: Progressing Note: [...] at the bedside 7. Instruct patient/ patient contracts representative about use of safety devices 8. Include patient/ patient contracts representative in decisions related to safety Outcome: Progressing Note: Evaluation of progress towards goal: Patient will remain safe and free from injury. Problem: Moderate - High Risk Fall Score Description: [place] Fall Score of =/> 25 or indicated by [facility] Assessment Goal: Patient should be free from fall Description: Interventions: 1. [place] to environment 2. Hourly rounds addressing the [...] non-skid footwear 11. Teach patient and patient contracts representative to maintain environment for safety and [...] (cane, walker) within reach 19. Request patient contracts representative bring adaptive equipment/mobility aids from home or obtain and provide as needed 20. Consult pharmacy regarding effects of med's affecting mobility, cognition, and alternatives 21. Obtain physician order for PT if risk factors associated with mobility are present 22. Obtain physician order for OT as appropriate 23. Utilize diversional activities 24. Educate patient and patient contracts representative how to maintain a safe environment during visitation times (notify nurse prior to leaving bedside) 25. Consider appropriateness of medical or non-medical management trainer 26. Set up voiding schedule as appropriate [...] Diagnosis Date COPD (chronic obstructive pulmonary disease) ([facility]) ROMEO (obstructive sleep apnea) Past Surgical [...] 6 Clicks: Basic Mobility Raw Score: 22 [facility] G Code Modifier: CJ Therapy Plan [...] per RN Equipment: rolling walker, nonskid socks Telemetry/Rodent Exterminator: Yes Oxygen Used: room air Other: dizziness Pain Assessment Pain Assessment: 0-10 Pain Score: 5 Pain Type: Chronic pain Pain Location: Back Pain Intervention(s): Repositioned Response to Interventions: Pain improved Home Living Type of Home: House Home Layout: One level Stairs to Enter: 1 Home Equipment: Rolling walker Other : ramp to enter his own house, 1 step to enter [facility], states [facility] stays at [facility] Prior Function Lives With: Friends, Daughter (daughter [...] complication, without long-term current use of insulin ([facility]) Double vision Elevated BP without diagnosis of hypertension Problem: Pain Goal: Patient goal is pain score less than 4, able to rest, and participant in treatment plan as appropriate Description: INTERVENTIONS: 1. Encourage patient or legal contracts representative to report early pain and ask [...] per policy 9. Teach patient or legal contracts representative interventions for comforting Outcome: Not Progressing [...] at the bedside 7. Instruct patient/ patient contracts representative about use of safety devices 8. Include patient/ patient contracts representative in decisions related to safety Outcome: [...] hygiene technique 7. Identify and instruct patient/patient contracts representative in use of appropriate isolation precautions for identified infection/symptoms 8. Provide and discuss with patient/patient contracts representative on educational MDRO sheet 9. Encourage and monitor nutritional status daily and consult landscape gardener if indicated 10. Implement neutropenic guidelines as needed 11. Review exposure to history of communicable disease and recent travel history on admission 12. Encourage annual influenza vaccine 13. Encourage pneumonia vaccine Outcome: Progressing Note: Evaluation of progress towards goal: no infection noted Problem: Knowledge Deficit Goal: Patient/patient contracts representative demonstrates understanding of disease process, treatment [...] Score of =/> 25 or indicated by [facility] Assessment Goal: Patient should be free from fall Description: Interventions: 1. [place] to environment 2. Hourly rounds addressing the [...] non-skid footwear 11. Teach patient and patient contracts representative to maintain environment for safety and [...] (cane, walker) within reach 19. Request patient contracts representative bring adaptive equipment/mobility aids from home or obtain and provide as needed 20. Consult pharmacy regarding effects of med's affecting mobility, cognition, and alternatives 21. Obtain physician order for PT if risk factors associated with mobility are present 22. Obtain physician order for OT as appropriate 23. Utilize diversional activities 24. Educate patient and patient contracts representative how to maintain a safe environment during visitation times (notify nurse prior to leaving bedside) 25. Consider appropriateness of medical or non-medical management trainer 26. Set up voiding schedule as appropriate [...] supplement as ordered 13. Collaborate with clinical landscape gardener 14. Include patient/ patient's contracts representative in decisions related to nutrition Outcome: [...] at the bedside 7. Instruct patient/ patient contracts representative about use of safety devices 8. Include patient/ patient contracts representative in decisions related to safety Outcome: Progressing Note: Evaluation of progress towards goal: safety maintained, bed alarm on documented in this encounter [facility] 03-25-2024 Progress note Formatting of t his note is different from the original. Occupational Therapy CANCEL - Refusal, Discharge from Therapy patient ed and visitor ed on role and goals of OT. Pt reports that he completed ADL this AM prior to arrival, denies current OT needs. OT to complete order at this time. [employer] Work Phone: 03-25-2024 Hospital Discharge instructions Crystal [...] stop your prescribed medications or begin taking nqex-ifr-mugidut or herbal medications without first speaking with [...] be sent through Care Everywhere.Stroke Discharge Instructions ([place])documented in this encounter [facility] 03-25-2024 Plan of care note Problem: Pain Goal: Patient goal is pain score less than 4, able to rest, and participant in treatment plan as appropriate Description: INTERVENTIONS: 1. Encourage patient or legal contracts representative to report early pain and ask [...] per policy 9. Teach patient or legal contracts representative interventions for comforting Outcome: Progressing Note: [...] at the bedside 7. Instruct patient/ patient contracts representative about use of safety devices 8. Include patient/ patient contracts representative in decisions related to safety Outcome: Progressing Note: Evaluation of progress towards goal: Patient will remain safe and free from injury. Problem: Moderate - High Risk Fall Score Description: [place] Fall Score of =/> 25 or indicated by [facility] Assessment Goal: Patient should be free from fall Description: Interventions: 1. [place] to environment 2. Hourly rounds addressing the [...] non-skid footwear 11. Teach patient and patient contracts representative to maintain environment for safety and [...] (cane, walker) within reach 19. Request patient contracts representative bring adaptive equipment/mobility aids from home or obtain and provide as needed 20. Consult pharmacy regarding effects of med's affecting mobility, cognition, and alternatives 21. Obtain physician order for PT if risk factors associated with mobility are present 22. Obtain physician order for OT as appropriate 23. Utilize diversional activities 24. Educate patient and patient contracts representative how to maintain a safe environment during visitation times (notify nurse prior to leaving bedside) 25. Consider appropriateness of medical or non-medical management trainer 26. Set up voiding schedule as appropriate (every 2 hours) Outcome: Progressing Note: Evaluation of progress towards goal: patient will remain free from falls. [employer] [facility] 03-25-2024 Progress note Formatting of t his note is different from the original. Physical Therapy Evaluation Discharge Recommendations PT Recommendations: Home Home Recommendations: No mobility/ADL assistance at home required Post Discharge Therapy Recommendations: Outpatient Physical Therapy (for vestibular rehab if further testing negative) Past Medical History: Diagnosis Date COPD (chronic obstructive pulmonary disease) ([facility]) ROMEO (obstructive sleep apnea) Past Surgical [...] 6 Clicks: Basic Mobility Raw Score: 22 [facility] G Code Modifier: CJ Therapy Plan [...] per RN Equipment: rolling walker, nonskid socks Telemetry/Rodent Exterminator: Yes Oxygen Used: room air Other: dizziness Pain Assessment Pain Assessment: 0-10 Pain Score: 5 Pain Type: Chronic pain Pain Location: Back Pain Intervention(s): Repositioned Response to Interventions: Pain improved Home Living Type of Home: House Home Layout: One level Stairs to Enter: 1 Home Equipment: Rolling walker Other : ramp to enter his own house, 1 step to enter [facility], states he mostly stays at [facility] Prior Function Lives With: Friends, Daughter (daughter [...] complication, without long-term current use of insulin ([facility]) Double vision Elevated BP without diagnosis of hypertension T [facility] 03-25-2024 Nurse Note Received shift report from previous RN. In report, RN states that patient had fallen in ED. Patient confirms this to be true. Patient was asked how he fell. Patient states he was walking to bed from bathroom in ED and seemed to lose his balance. In any notes so far, this fall has not been commented on. [facility] 03-25-2024 Plan of care note Problem: Pain Goal: Patient goal is pain score less than 4, able to rest, and participant in treatment plan as appropriate Description: INTERVENTIONS: 1. Encourage patient or legal contracts representative to report early pain and ask [...] per policy 9. Teach patient or legal contracts representative interventions for comforting Outcome: Not Progressing [...] at the bedside 7. Instruct patient/ patient contracts representative about use of safety devices 8. Include patient/ patient contracts representative in decisions related to safety Outcome: [...] hygiene technique 7. Identify and instruct patient/patient contracts representative in use of appropriate isolation precautions for identified infection/symptoms 8. Provide and discuss with patient/patient contracts representative on educational MDRO sheet 9. Encourage and monitor nutritional status daily and consult landscape gardener if indicated 10. Implement neutropenic guidelines as needed 11. Review exposure to history of communicable disease and recent travel history on admission 12. Encourage annual influenza vaccine 13. Encourage pneumonia vaccine Outcome: Progressing Note: Evaluation of progress towards goal: no infection noted Problem: Knowledge Deficit Goal: Patient/patient contracts representative demonstrates understanding of disease process, treatment [...] Score of =/> [facility] Goal: Patient should be free from fall Description: Interventions: 1. [place] to environment 2. Hourly rounds addressing the [...] non-skid footwear 11. Teach patient and patient contracts representative to maintain environment for safety and [...] (cane, walker) within reach 19. Request patient contracts representative bring adaptive equipment/mobility aids from home or obtain and provide as needed 20. Consult pharmacy regarding effects of med's affecting mobility, cognition, and alternatives 21. Obtain physician order for PT if risk factors associated with mobility are present 22. Obtain physician order for OT as appropriate 23. Utilize diversional activities 24. Educate patient and patient contracts representative how to maintain a safe environment during visitation times (notify nurse prior to leaving bedside) 25. Consider appropriateness of medical or non-medical management trainer 26. Set up voiding schedule as appropriate [...] supplement as ordered 13. Collaborate with clinical landscape gardener 14. Include patient/ patient's contracts representative in decisions related to nutrition Outcome: [...] progress towards goal: no new skin breakdown [facility] 03-24-2024 History and physical note Images from the original note were not included. GENERAL HISTORY AND PHYSICAL: 03/24/24 PROBLEM: Principal Problem: Dizziness Active Problems: Type 2 diabetes mellitus without complication, without long-term current use of insulin ([facility]) Double vision Elevated BP without diagnosis of hypertension HISTORY OF PRESENT ILLNESS: Tyler Torres is an 79 y.o. White or male. Was fishing with his grandchildren at the [employer] earlier today. Notice difficulty with his vision, [...] Diagnosis Date COPD (chronic obstructive pulmonary disease) ([facility]) ROMEO (obstructive sleep apnea) PAST SURGICAL HISTORY: [...] Resource Strain: Low Risk (08/24/2023) Received from [facility], [facility] Overall Financial Resource Strain (CARDIA) [...] insulin while in hospital PLAN: As above [employer] [facility] 03-24-2024 History and physical note Images from the original note were not included. GENERAL HISTORY AND PHYSICAL: 03/24/24 PROBLEM: Principal Problem: Dizziness Active Problems: Type 2 diabetes mellitus without complication, without long-term current use of insulin ([facility]) Double vision Elevated BP without diagnosis of hypertension HISTORY OF PRESENT ILLNESS: Tyler Torres is an 79 y.o. White or male. Was fishing with his grandchildren at the [employer] earlier today. Notice difficulty with his vision, [...] Diagnosis Date COPD (chronic obstructive pulmonary disease) ([facility]) ROMEO (obstructive sleep apnea) PAST SURGICAL HISTORY: [...] Resource Strain: Low Risk (08/24/2023) Received from [facility], [facility] Overall Financial Resource Strain (CARDIA) [...] PLAN: As above documented in this encounter [employer] 03-24-2024 Plan of care note Problem: Safety [...] at the bedside 7. Instruct patient/ patient contracts representative about use of safety devices 8. Include patient/ patient contracts representative in decisions related to safety Outcome: Progressing Note: Evaluation of progress towards goal: safety maintained, bed alarm on [facility] 03-24-2024 Emergency department Note Admit 217, cleaning room [facility] 03-24-2024 Emergency department Note Admit 217, [...] and applied bandages. documented in this encounter [facility] 03-24-2024 Emergency department Note Patient's family [...] cleaned the skin tears and applied bandages. [facility] 03-24-2024 Note Procedure: Chest x-ray performed Number of views:1 History:Shortness of breath COPD stroke alert Comparison:01/16/2023 Findings: The heart and lungs show no acute findings, and the mediastinum and julio are grossly negative . Impression: 1. No acute change. Finalized by Francisco Perdomo MD on 03/24/2024 2:33 PM [facility] 03-24-2024 Note XR CHEST 1 VIEW STRO KE Procedure: Chest x-ray performed Number of views:1 History:Shortness of breath COPD stroke alert Comparison:01/16/2023 Findings: The heart and lungs show no acute findings, and the mediastinum and julio are grossly negative . Impression: 1. No acute change. Finalized by Francisco Perdomo MD on 03/24/2024 2:33 PM [facility] 02-23-2024 Note HNO ID: [id number] Author: HUNG JACOBSEN MD Service: ? Author [...] R glenohumeral Informed Consent Consent Obtained: Verbal [place] Protocol A moment to CARE was completed. [...] L glenohumeral Informed Consent Consent Obtained: Verbal [place] Protocol A moment to CARE was completed. [...] assessment and interventi (more content not included)... [facility] 02-23-2024 History of Present illness Narrative Associated [...] R glenohumeral Informed Consent Consent Obtained: Verbal [place] Protocol A moment to CARE was completed. [...] L glenohumeral Informed Consent Consent Obtained: Verbal [place] Protocol A moment to CARE was completed. [...] Hung Jacobsen MD documented in this encounter [facility] 02-21-2024 History of Present illness [...] hyperplasia with nocturia documented in this encounter [facility] 02-20-2024 Note HNO ID: [id number] Author: Mahesh SMALL MD Service: ? Author [...] time with new x-rays. Mahesh Small MD [facility] 02-20-2024 History of Present illness Narrative Tyler [...] in this note. documented in this encounter [facility] 02-20-2024 Note HNO ID: [id number] Author: Mahesh SMALL MD Service: ? Author [...] the plans as outlined in this note. [facility] 01-25-2024 Miscellaneous Notes Refill request, contract signed and appointments up to date. documented in this encounter [facility] 01-25-2024 Telephone encounter Note Refill request, contract signed and appointments up to date. [facility] 12-26-2023 Hospital Discharge instructions Patient Education [...] include: ?8 oz (237 mL) of milk, fhfinjk-fbolbbfqqjpn-xkazp milk, and calcium-fortifiedfruit juice. Calcium-fortified means that [...] ?Spinach (cooked), rhubarb, beets, sweet potatoes, and [place] chard. ?Peanuts. ?Potato chips, uzbek fries, and baked potatoes with skin on. ?Nuts and nut products. ?Chocolate. If you regularly take a diuretic medicine, make sure to eat at least 1 or 2 servings of fruits or vegetables that are high in potassium each day. These include: ?Avocado. ?Banana. ?[place], prune, carrot, or tomato juice. ?Baked potato. [...] magnesium, fish oil, or vitamin B6. Take uqof-fkr-rrjdqxu and prescription medicines only as told by [...] Casseroles. Pizza. Lasagna. Frozen meals. Potato chips. Cook Islander fries. The items listed above may not [...] provider. Document Revised: 11/10/2022 Document Reviewed: 11/10/2022 [employer] Patient Education 2022 [employer]. 12/26/2023 13:38:43 Benign Prostatic Hyperplasia Benign Prostatic [...] urethra. Follow these instructions at home: Take bese-azn-lvftcdt and prescription medicines only as told by [...] provider. Document Revised: 02/16/2022 Document Reviewed: 02/16/2022 [employer] Patient Education 2022 [employer]. 12/26/2023 13:38:40 Kidney Stones, Kwmo-ye-Bkjq Kidney Stones Kidney stones are rock-like masses [...] Follow these instructions at home: Medicines Take doco-isk-bcnbgbp and prescription medicines only as told by [...] provider. Document Revised: 04/04/2022 Document Reviewed: 04/04/2022 [employer] Patient Education 2022 [employer] [facility] 12-25-2023 Miscellaneous Notes Refill request documented in this encounter [facility] 12-25-2023 Telephone encounter Note Refill request [facility] 12-12-2023 Miscellaneous Notes Patient came in and said he was on docusate sodium before for his constipation and would like you to order this for him again. documented in this encounter [facility] 12-12-2023 Telephone encounter Note Patient came in and said he was on docusate sodium before for his constipation and would like you to order this for him again. [facility] 12-11-2023 Miscellaneous Notes ED Outreach This documentation is being used for Transition of Care purposes: Yes/No: Yes ED Outreach Date: December 11, 2023 ED Outreach Method: COMMUNICATION METHOD: Telephone ED Outreach Attempt: first ED Outreach Outcome: Contacted Patient Name of ED Facility: [facility] Date of ED Discharge: 12/10/2023 [...] with additional concerns. documented in this encounter [facility] 12-11-2023 Telephone encounter Note ED Outreach This documentation is being used for Transition of Care purposes: Yes/No: Yes ED Outreach Date: December 11, 2023 ED Outreach Method: COMMUNICATION METHOD: Telephone ED Outreach Attempt: first ED Outreach Outcome: Contacted Patient Name of ED Facility: [facility] Date of ED Discharge: 12/10/2023 [...] will contact the office with additional concerns. [facility] 11-27-2023 History of Present illness Narrative Subjective [...] complication, without long-term current use of insulin ([facility]) - Hemoglobin A1c; Future documented in this encounter [facility] 11-22-2023 Miscellaneous Notes Refill request documented in this encounter [facility] 11-22-2023 Telephone encounter Note [facility] 11-21-2023 History of Present illness Narrative SPINE SURGERY FOLLOW UP This is an in-person visit. SERVICE DATE: 11/21/2023 SURGERY DATE: 08/24/23 Tyler Torres is seen for 3 month post operative follow up. Doing well. Has some systemic signs of fatigue concerning for the flu. Encouraged to see PCP. Back and Leg apin impriving. Ambualting Miranda Discount Total Savings: $ [facility] extends a miranda discount to [...] claim: No 08/14/2023 10/08/2023 11/14/2023 Neck Questionnaires [place] Modified BRIT Score 14 (A lower score [...] Mahesh Small MD documented in this encounter [facility] 11-17-2023 History of Present illness [...] R glenohumeral Informed Consent Consent Obtained: Verbal [place] Protocol A moment to CARE was completed. [...] L glenohumeral Informed Consent Consent Obtained: Verbal [place] Protocol A moment to CARE was completed. [...] Hung Jacobsen MD documented in this encounter [facility] 11-17-2023 History of Present illness [...] PATIENT PRESENTS WITH AN IMPLANTABLE OR ATTACHED GEOPHYSICIST: No RADIOLOGY DEPARTMENT: General X-ray: Exam(s) Completed: Upper Extremity X-Ray(s): Shoulder, AP / TRUE AP / AXILLARY bilateral PERIPHERAL IV DATA: Not applicable SIGNED BY: RT Moses(Mahesh) November 17, 2023 10:32 AM documented in this encounter [facility] 10-23-2023 Miscellaneous Notes Refill request documented in this encounter [facility] 10-23-2023 Telephone encounter Note Refill request [facility] 10-18-2023 Miscellaneous Notes Refill request documented in this encounter [facility] 10-18-2023 Telephone encounter Note Refill request [facility] 10-10-2023 History of Present illness Narrative [...] miles 6 days a week at the [facility]. He uses a walker. He feels as [...] visit. Madhu Doshi MD Spine Surgery Fellow R. Jose Small, MD Spine Surgery Attending documented in this encounter [facility] 10-10-2023 History of Present illness [...] PATIENT PRESENTS WITH AN IMPLANTABLE OR ATTACHED GEOPHYSICIST: No RADIOLOGY DEPARTMENT: General X-ray: Exam(s) Completed: Spine X-Ray(s): Scoliosis Series PERIPHERAL IV DATA: Not applicable SIGNED BY: RT Robby(R) October 10, 2023 12:49 PM documented in this encounter [facility] 10-10-2023 Miscellaneous Notes Called patient and asked they come in early for an X-ray before appointment with Dr. Small. Gave directions to the imaging department and asked them to check in with Dr. Small after their X-ray. Patient acknowledged understanding. Ling Sheldon CMA documented in this encounter [facility] 10-04-2023 Hospital Discharge instructions Patient [...] include: ?8 oz (237 mL) of milk, yugmrmz-tpbnicbawkkl-dbogx milk, and calcium-fortifiedfruit juice. Calcium-fortified means that [...] ?Spinach (cooked), rhubarb, beets, sweet potatoes, and Omani chard. ?Peanuts. ?Potato chips, uzbek fries, and baked potatoes with skin on. ?Nuts and nut products. ?Chocolate. If you regularly take a diuretic medicine, make sure to eat at least 1 or 2 servings of fruits or vegetables that are high in potassium each day. These include: ?Avocado. ?Banana. ?[place], prune, carrot, or tomato juice. ?Baked potato. [...] magnesium, fish oil, or vitamin B6. Take iqni-dzq-lruniao and prescription medicines only as told by [...] Casseroles. Pizza. Lasagna. Frozen meals. Potato chips. Cook Islander fries. The items listed above may not [...] provider. Document Revised: 11/10/2022 Document Reviewed: 11/10/2022 [employer] Patient Education 2022 Perficient. Follow Up Care 05/03/2023 11:32:35 With:Ian METZ, MILTON Watts, URO Address: [facility] [place] [address] [phone] When: Unknown Comments:1 yr w/ KELBY/ESTELLE [facility] 09-22-2023 Miscellaneous Notes Refill request documented in this encounter [facility] 09-22-2023 Telephone encounter Note Refill request [facility] 09-21-2023 Miscellaneous Notes Refill request documented in this encounter [facility] 09-21-2023 Telephone encounter Note Refill request [facility] 09-19-2023 History of Present illness Narrative [...] complication, without long-term current use of insulin ([facility]) documented in this encounter [facility] 09-03-2023 Miscellaneous Notes Refill request documented in this encounter [facility] 09-03-2023 Telephone encounter Note Refill request [facility] 08-08-2023 Miscellaneous Notes Refill request documented in this encounter [facility] 08-08-2023 Telephone encounter Note Refill request [facility] 07-31-2023 History and physical note HISTORY [...] Covid Immunization Dates Overdue - Covid-19 Vaccine (2022- season) Overdue since 04/14/2023 06/09/2022 Imm Admin: COVID-19 vaccine, age 12+ yr, bivalent (ClearFit) 12/31/2021 Imm Admin: COVID-19 original vaccine, age [...] fevers. Neuro: No history of TIA's, stroke, SPRING FORMER HAND tumor, impaired sensorium, hemiplegia, paraplegia or quadraplegia. No neurological symptoms or problems. Respiratory:+COPD Negative for Bronchitis, Current cough, Daily bronchodilator use for previous 3 months, Dyspnea, Home O2 Cardiovascular: No history of HTN requiring medication, no history of angina, CHF, IA, cardiac surgery or stents. Denies rest pain, [...] TIME: 11:39 AM documented in this encounter [facility] 07-25-2023 Instructions Aline Jones PA-C - 07/25/2023 1:34 PM EST PATIENT PREOPERATIVE INSTRUCTIONS Mahesh Small MD has scheduled you for your procedure at this surgery center: [facility]: [phone] --[address] [place] [address]. On your scheduled day of surgery, please [...] pain medications. Acetaminophen (Tylenol), gabapentin (Neurontin), Hydrocodone-acetaminophen ([place]) If you take any medications for erectile [...] Procedures: - YOU MUST HAVE A RESPONSIBLE FLEET COORDINATOR TAKE YOU HOME. A YARN EXAMINER OR PHARMACEUTICAL PHYSICIAN CANNOT BE MADE A RESPONSIBLE FLEET COORDINATOR. - We recommend that a responsible person stays with you overnight to take care of you. - You cannot stay in a hotel alone after outpatient surgery. You will not be permitted to have your surgery, if you do not have someone to take care of you. If you already have an Advance Directive, please fax a copy to [phone] or email to for it to be [...] Aline Jones PA-C documented in this encounter [facility] 07-21-2023 Miscellaneous Notes Neuro SPINE [...] , it is OK to leave message [phone] (home) [phone] (cell) Was an appointment scheduled: Closing statement: Harmony Youngblood documented in this encounter [facility] 05-04-2023 Procedure note [facility] 05-03-2023 Hospital Discharge instructions Patient Education 05/03/2023 [...] include: ?8 oz (237 mL) of milk, avswbfw-ymtxkvwusvmk-uzpbu milk, and calcium-fortifiedfruit juice. Calcium-fortified means that [...] ?Spinach (cooked), rhubarb, beets, sweet potatoes, and Omani chard. ?Peanuts. ?Potato chips, uzbek fries, and baked potatoes with skin on. ?Nuts and nut products. ?Chocolate. If you regularly take a diuretic medicine, make sure to eat at least 1 or 2 servings of fruits or vegetables that are high in potassium each day. These include: ?Avocado. ?Banana. ?[place], prune, carrot, or tomato juice. ?Baked potato. [...] magnesium, fish oil, or vitamin B6. Take oepi-lfk-sfrdgct and prescription medicines only as told by [...] Casseroles. Pizza. Lasagna. Frozen meals. Potato chips. Cook Islander fries. The items listed above may not [...] provider. Document Revised: 04/11/2022 Document Reviewed: 04/11/2022 [employer] Patient Education 2022 Perficient. Follow Up Care 03/09/2023 12:13:17 With:Ian METZ, Olu Reynolds, URL, URO Address: When:Within 6 Month(s) Comments:Collin and ESTELLE [facility] Susie 03-13-2023 History of Present illness Narrative PT Only. Injection last week Hung Hardy D.O. [facility] Orthopaedic and Rheumatologic Residential Energy Auditor, [facility] Program Team Physician, [facility] Baseball Club Consulting Physician, [place] Marya Bartlett, Safety Director [phone] documented in this encounter [facility] 03-13-2023 History of Present illness [...] of Care: created on 03/13/23 through 05/12/23 [place] in home exercise program. Perform dressing and grooming with decreased report of symptoms/pain in 4 weeks. Increase ROM of AROM elevation improve 25 degrees and IR to L1 for ADLs Patient Goals: better use rt sh Planned Interventions, Frequency, and Duration: Current Frequency: 1x every other week Duration: 8 weeks Total Number of Visits Planned: 4 Planned Treatment Interventions: Therapeutic exercise (17061), Manual therapy (14705), Self-senior care management (56345), Patient/Family/Caregiver Education PLAN FOR NEXT VISIT: Transfer [...] message fax number to closer location ( [facility]) SUBJECTIVE: Tyler Torres is a 78 year old male seen today for Rt shoulder pain /OA. Sore with using it alot to rise from chairs and toilet. Hda to close fanatix cleaning due to this back issue. Hard [...] PT Treatment Interventions: Therapeutic Exercise, Manual Therapy, Self-Prison Management Evaluation Evaluation Therapeutic Exercise: 1: atempted [...] and assessment of patient's response to intervention. Self-Prison Management: 1: dressing shirt on off 2: [...] Yue Joyner PT documented in this encounter [facility] 03-09-2023 Hospital Discharge instructions Patient [...] include: ?8 oz (237 mL) of milk, tkwljzf-tnnrsfxsfypv-gypip milk, and calcium-fortifiedfruit juice. Calcium-fortified means that [...] ?Spinach (cooked), rhubarb, beets, sweet potatoes, and Omani chard. ?Peanuts. ?Potato chips, uzbek fries, and baked potatoes with skin on. ?Nuts and nut products. ?Chocolate. If you regularly take a diuretic medicine, make sure to eat at least 1 or 2 servings of fruits or vegetables that are high in potassium each day. These include: ?Avocado. ?Banana. ?[place], prune, carrot, or tomato juice. ?Baked potato. [...] magnesium, fish oil, or vitamin B6. Take xgql-dpj-icypoxv and prescription medicines only as told by [...] Casseroles. Pizza. Lasagna. Frozen meals. Potato chips. Cook Islander fries. The items listed above may not [...] provider. Document Revised: 04/11/2022 Document Reviewed: 04/11/2022 [employer] Patient Education 2022 Perficient. Follow Up Care 03/02/2023 10:56:45 With:Ian METZ, Olu Reynolds URDhruv, URO Address: When: Unknown [facility] 03-08-2023 Note HNO ID: [id number] Author: Hung Hardy, DO Service: ? Author Type: Physician Type: Progress Notes Filed: 03/08/2023 3:59 PM Note Text: [facility] Office Visit Documentation Note [facility] Sports Medicine Orthopaedic and Rheumatologic [place] HISTORY OF PRESENT ILLNESS (HPI) CHIEF COMPLAINT / REASON FOR VISIT SERVICE DATE: March 08, 2023 PCP: No primary care provider on file. Tyler Torres is here today at request of Dr. Hung Jacobsen specifically for consultation of my opinion in regards to the chief complaint listed below. Correspondence will be shared today via the [employer] electronic health record or through regular mail, [...] results and radiologist's interpretation, available in the [facility] health record. Images were reviewed with the patient/family members in the office today. My personal interpretation of the performed imaging is chronic degenerative changes. 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 Cardiology Consultant: WERO Transcribe Date/Time: Dec 26 2022 8:26A Dictated by : ANSHUL CHAIREZ MD... ASSESSMENT / PLAN CLINICAL IMPRESSION / ASSESSMENT: CLINICAL IMPRESSION / ASSESSMENT: (M19.011) Glenohumeral arthritis, right (primary encounter diagnosis) (M25.611) Decreased range of motion of right shoulder (M25.511, G89.29) Chronic right shoulder pain RECOMMENDATION / PLAN: Severe OA. Here today from [facility]. Discussed CSI vs OA brisement. OK for CSI high volume today Follow up: 4 months, if relief from CSI Films prior to visit: Written instructions (see patient instructions) and verbal health education given to patient. Patient verbalizes understanding and agrees with the treatment plan. Hung Hardy D.O. [facility] Orthopaedic and Rheumatologic Residential Energy Auditor, [facility] AND T.E.A.M. Program Team Physician, [facility] Baseball Club Consulting Physician, [place] Marya Bartlett, Safety Director [phone] Glenohumeral arthritis, right (primary encounter diagnosis) Decreased range of motion of right shoulder Chronic right shoulder pain Large Joint Arthro/Inj: R shoulder joint Informed Consent Consent Obtained: Verbal [place] Protocol A moment to CARE was completed. [...] and interventions d (more content not included)... [facility] 03-08-2023 History of Present illness Narrative Associated Order(s): Large Joint Arthro/Inj: R shoulder joint Post-Procedure Diagnose(s): Chronic right shoulder pain; Decreased range of motion of right shoulder; Glenohumeral arthritis, right Images from the original note were not included. [facility] Office Visit Documentation Note [facility] Sports Medicine Orthopaedic and Rheumatologic [place] HISTORY OF PRESENT ILLNESS (HPI) CHIEF COMPLAINT / REASON FOR VISIT SERVICE DATE: March 08, 2023 PCP: No primary care provider on file. Tyler Torres is here today at request of Dr. Hung Jacobsen specifically for consultation of my opinion in regards to the chief complaint listed below. Correspondence will be shared today via the [employer] electronic health record or through regular mail, [...] results and radiologist's interpretation, available in the [facility] health record. Images were reviewed with the patient/family members in the office today. My personal interpretation of the performed imaging is chronic degenerative changes. 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 Cardiology Consultant: WERO Transcribe Date/Time: Dec 26 2022 8:26A Dictated by : ANSHUL CHAIREZ MD... ASSESSMENT / PLAN CLINICAL IMPRESSION / ASSESSMENT: CLINICAL IMPRESSION / ASSESSMENT: (M19.011) Glenohumeral arthritis, right (primary encounter diagnosis) (M25.611) Decreased range of motion of right shoulder (M25.511, G89.29) Chronic right shoulder pain RECOMMENDATION / PLAN: Severe OA. Here today from [facility]. Discussed CSI vs OA brisement. OK for CSI high volume today Follow up: 4 months, if relief from [employer]SI Films prior to visit: Written instructions (see patient instructions) and verbal health education given to patient. Patient verbalizes understanding and agrees with the treatment plan. Hung Hardy D.O. [facility] Orthopaedic and Rheumatologic Residential Energy Auditor, [facility] & T.E.A.M. Program Team Physician, [facility] Baseball Club Consulting Physician, [place] Marya Bartlett, Safety Director [phone] Glenohumeral arthritis, right (primary encounter diagnosis) Decreased range of motion of right shoulder Chronic right shoulder pain Large Joint Arthro/Inj: R shoulder joint Informed Consent Consent Obtained: Verbal [place] Protocol A moment to CARE was completed. [...] Hung Hardy DO documented in this encounter [facility] 02-09-2023 Miscellaneous Notes Neuro SPINE CARE COORDINATION SURGERY SCHEDULING Patient accepts surgery date of 08/24/[address] Small at [facility]. Planned procedure is removal posterior segmental instrumentation [...] on cancellation list documented in this encounter [facility] 02-02-2023 Procedure note [facility] 01-31-2023 History of Present illness Narrative Tyler [...] Mahesh Small MD documented in this encounter [facility] 01-18-2023 Evaluation + Plan note Diagnostic Tests PendingUrine Culture 01/18/23 [facility] 01-18-2023 Hospital Discharge instructions Patient Education 01/18/2023 [...] include: ?8 oz (237 mL) of milk, igqbswh-fqoftdhfvcnr-ksawk milk, and calcium-fortifiedfruit juice. Calcium-fortified means that [...] ?Spinach (cooked), rhubarb, beets, sweet potatoes, and Omani chard. ?Peanuts. ?Potato chips, uzbek fries, and baked potatoes with skin on. ?Nuts and nut products. ?Chocolate. If you regularly take a diuretic medicine, make sure to eat at least 1 or 2 servings of fruits or vegetables that are high in potassium each day. These include: ?Avocado. ?Banana. ?[place], prune, carrot, or tomato juice. ?Baked potato. [...] magnesium, fish oil, or vitamin B6. Take nfss-toq-jujgbbb and prescription medicines only as told by [...] Casseroles. Pizza. Lasagna. Frozen meals. Potato chips. Cook Islander fries. The items listed above may not [...] provider. Document Revised: 04/11/2022 Document Reviewed: 04/11/2022 [employer] Patient Education 2022 Perficient. Follow Up Care 07/06/2022 12:29:16 With:Ian METZ, Olu Reynolds, OMEROL, URO Address: When: Unknown [facility] 12-26-2022 Instructions Hung Jacobsen MD - 12/26/2022 10:08 AM EDT Send me a Cisivt Message after seeing Dr. 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 Unable to tolerate speeds, Broome's, testing Axillary, Long Thoracic, CN XI, Median, Ulnar, Radial, musculocutaneous nerves intact to motor and sensation. Fingers warm and well perfused, BCR< 2sec. Radial Pulse 2+ RADIOGRAPHIC RESULTS: Imaging was personally reviewed by myself today No fracture or dislocation noted, severe glenoid humeral joint narrowing with lhgc-sx-apso contact inferiorly with osteophytes, and flattening of [...] Time: 11:43 AM documented in this encounter [facility] 12-23-2022 History of Present illness [...] 2022 2:34 PM documented in this encounter [facility] 12-13-2022 History of Present illness [...] Mahesh Small MD documented in this encounter [facility] 12-13-2022 History of Present illness [...] 2022 2:31 PM documented in this encounter [facility] 11-28-2022 Evaluation note Encounter Date [...] Nov, Other Continue with current treatment plan. [facility] Other 04-06-2023 Miscellaneous Notes* Telephone Encounter - [...] to appointment. * Telephone Encounter - Tamera Holley - 11/17/2022 11:38 AM EDT Pt calling and asking if radiology is needed prior to the follow up appt Pt has made for 12/13/22 at [facility] Call him and advise [phone] OK 4 detailed vmm [facility] Evaluation note* Encounter Date Diagnosis [...] & AC joint injection in the future [facility] Other 03-30-2023 Evaluation note* Encounter Date Diagnosis Assessment Notes Treatment Notes Treatment Clinical Notes Oct, Primary osteoarthritis of right shoulder (ICD-10 - M19.011) [facility] Other 01-31-2023 Evaluation note* Encounter Date Diagnosis [...] - M96.1) Continue taking medications as prescribed. 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 Oxycodone was refilled today, opioid risk assessment was done as well as pill count. Patient is compliant with opioid medication. The patient denies any opioid related side effects. Aug, Post laminectomy syndrome (ICD-10 - M96.1) In regard to his continued complaints of low back pain, he is requesting to continue physical therapy. [facility] [place] [facility]. In the meantime, I will refill his Cymbalta and Flexeril as he feels this provides an element of relief. 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 Oxycodone was refilled today, opioid [...] to apply to painful areas as tolerated. [facility] Other 11-30-2022 Evaluation note* Encounter Date Diagnosis Assessment Notes Treatment Notes Treatment Clinical Notes Jun, Post laminectomy syndrome (ICD-10 - M96.1) [facility] Other 11-29-2022 Evaluation note* Encounter Date Diagnosis [...] educated on the risks and benefits of alf opioid use. Oxycodone was refilled today, opioid risk assessment was done as well as pill count. Patient is compliant with opioid medication. The patient denies any opioid related side effects. [facility] Other 11-23-2022 Hospital Discharge instructions Patient Education [...] include: ?Spinach. ?Rhubarb. ?Beets. ?Potato chips and uzbek fries. ?Nuts. If you regularly take a diuretic medicine, make sure to eat at least 1 2 fruits or vegetables high in potassium each day. These include: ?Avocado. ?Banana. ?[place], prune, carrot, or tomato juice. ?Baked potato. [...] Casseroles. Pizza. Lasagna. Frozen meals. Potato chips. Cook Islander fries. Summary You can reduce your risk [...] 11/25/2011 Document Revised: 11/20/2019 Document Reviewed: 07/11/2017 [employer] Patient Education 2019 Perficient. Follow Up Care 05/24/2022 10:24:37 With:Ian METZ, Olu Reynolds, MILTON, URO Address: When:6 months Comments:KUB & renal us [facility] 11-02-2022 Evaluation note* Encounter Date Diagnosis [...] educated on the risks and benefits of alf opioid use. Oxycodone was refilled today, opioid risk assessment was done as well as pill count. Patient is compliant with opioid medication. The patient denies any opioid related side effects. [facility] Other 10-28-2022 Evaluation note* Encounter Date Diagnosis Assessment Notes Treatment Notes Treatment Clinical Notes May, Post laminectomy syndrome (ICD-10 - M96.1) [facility] Other 10-11-2022 History of Present illness Narrative* [...] TIME: 2:46 PM PAGER: [facility] History of Present illness Narrative* RT Dotty(R) - 05/24/2022 2:20 PM EDT Radiology Service [...] 24, 2022 2:16 PM documented in this encounter[facility] Miscellaneous Notes* Telephone Encounter - Alis Nievse LPN - 05/23/2022 1:11 PM EDT Called spoke to patient, made aware that Dr. Small has put in an order to have x- ray done prior to his visit on 05/24/22. documented in this encounterUniversity [facility]10-[facility]-2022 NoteEXAMINATION: XR CHEST 2 V [...] Electronically authenticated by: GRAHAM WHYTE Date: 2022-05-16 16:23[facility]09-29-2022 Evaluation note* Encounter Date Diagnosis Assessment Notes Treatment Notes Treatment Clinical Notes Apr, Post laminectomy syndrome (ICD-10 - M96.1) Apr, Scoliosis of lumbar region due to degenerative disease of spine in adult (ICD-10 - M41.86) [facility] Other 09-27-2022 Evaluation note* Encounter Date Diagnosis [...] educated on the risks and benefits of alf opioid use. Oxycodone was refilled today, opioid risk assessment was done as well as pill count. Patient is compliant with opioid medication. The patient denies any opioid related side effects. [facility] Other [id number] Evaluation + Plan note Diagnostic Tests Pending * Urine Culture 04/27/22 [facility]09-14-2022 Hospital Discharge instructions Patient Education 04/27/2022 11:54:50 [...] include: ?Spinach. ?Rhubarb. ?Beets. ?Potato chips and uzbek fries. ?Nuts. If you regularly take a diuretic medicine, make sure to eat at least 1 2 fruits or vegetables high in potassium each day. These include: ?Avocado. ?Banana. ?[place], prune, carrot, or tomato juice. ?Baked potato. [...] Casseroles. Pizza. Lasagna. Frozen meals. Potato chips. [employer]. Summary You can reduce your risk [...] 11/25/2011 Document Revised: 11/20/2019 Document Reviewed: 07/11/2017 Elsevier Patient Education 2020 [employer] Inc. 04/27/2022 11:54:05 Acute Urinary Retention, Male Acute [...] complications. Follow these instructions at home: Take tgoz-inm-luerfng and prescription medicines only as told by [...] 11/06/2001 Document Revised: 07/13/2018 Document Reviewed: 09/01/2017 [employer] Patient Education 2020 [employer] Follow Up Care 04/21/2022 09:27:53 With:Ian METZ, MILTON Watts, URO Address: When: Unknown [facility] Evaluation note* Encounter Date Diagnosis Assessment Notes Treatment Notes Treatment Clinical Notes Apr, Scoliosis of lumbar region due to degenerative disease of spine in adult (ICD-10 - M41.86) [facility] Other 08-29-2022 Evaluation note* Encounter Date Diagnosis [...] can refer the patient to see a Airline Operations Agent in the future. Mar, Chronic pain (ICD-10 - G89.29) Patient has continued need for Oxycodone. OARRS report processed and reviewed and shows no violations. Patient was educated on the risks and benefits of alf opioid use. Oxycodone was refilled today, opioid risk assessment was done as well as pill count. Patient is compliant with opioid medication. The patient denies any opioid related side effects. [facility] Other 08-16-2022 Evaluation note* Encounter Date Diagnosis Assessment Notes Treatment Notes Treatment Clinical Notes Mar, Lumbar stenosis with neurogenic claudication (ICD-10 - M48.062) [facility] Other 07-27-2022 NotePROCEDURE: Toobla Signa HDXT 1.5. Sagittal T1, T2, STIR [...] and signed by Rajiv Macias on 03/09/2022 [id number]07-05-[facility] History of Present illness Narrative* Mahesh Small [...] #1: T12-S1 fusion in September 2021 at [facility] There is no problem list on file [...] TIME: 11:16 AM PAGER: documented in this encounterUniversity [facility] Evaluation [facility]* Encounter Date Diagnosis [...] Jan, Idiopathic peripheral neuropathy (ICD-10 - G60.9) [facility] Other 06-27-2022 History of Present illness Narrative* [...] Rodriguez. 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 Oxycodone was refilled today, opioid risk assessment was done as well as pill count. Patient is compliant with opioid medication. The patient denies any opioid related side effects. [facility] Other 06-15-2022 History of Present illness Narrative* Enzo White, - 01/26/2022 3:23 PM EDT [facility] Low Back Pain - Chronic (> 12 weeks) Initial Exam SUBJECTIVE HISTORY OF PRESENT ILLNESS: Tyler Torres is a 76 year old male who presents with a chief complaint of low back and leg pain andis self-referred. He is from [place], [place]. Presents with his significant other. PMH LSS T12-S1 fusion in September 2021 at [facility]. L sided low back and leg pain [...] if it helps. Had 3 LUCAS's at [facility] with pain mgt. Unsure which levels. First [...] supervised home exercise program (HEP): No 4. Keypuncher: No 5. What are your limitations: Walking, [...] be available in EMR documented in this encounterUniversity [facility]als [facility]05-31-2022 Evaluation note* Encounter Date Diagnosis Assessment Notes Treatment Notes Treatment Clinical Notes December, Lumbar radiculopathy (ICD-10 - M54.16) [facility] Other 05-18-2022 Evaluation note* Encounter Date Diagnosis [...] him in 2 months with repeat evaluation. 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 Oxycodone was refilled today, opioid [...] negative findings were considered in medical decision-making. [facility] Other 04-06-2022 Evaluation note* Encounter Date Diagnosis [...] of spine in adult (ICD-10 - M41.86) [facility] Other 04-04-2022 Evaluation note* Encounter Date Diagnosis Assessment Notes Treatment Notes Treatment Clinical Notes Nov, Scoliosis of lumbar region due to degenerative disease of spine in adult (ICD-10 - M41.86) [facility] Other 03-23-2022 Hospital Discharge instructions Patient Education 11/03/2021 10:04:12 Kidney Stones, Zprr-ko-Eoir Kidney Stones Kidney stones are rock-like masses [...] Follow these instructions at home: Medicines Take qppf-wit-udwsoyj and prescription medicines only as told by [...] 01/16/2009 Document Revised: 12/17/2019 Document Reviewed: 12/17/2019 [employer] Patient Education 2019 [employer]. Follow Up Care 10/18/2021 09:38:52 With:Ian METZ, MILTON Watts, URO Address: [phone] When:05/06/2022 Comments:w/ ct and kub [facility] 03-21-2022 Evaluation note* Encounter Date Diagnosis [...] History of lumbar fusion (ICD-10 - Z98.1) [facility] Other 01-13-2022 Evaluation note* Encounter Date Diagnosis [...] Aug, Idiopathic peripheral neuropathy (ICD-10 - G60.9) [facility] Other 12-15-2021 Evaluation note* Encounter Date Diagnosis [...] physical therapy and rehab would be appropriate. Jul, Spinal stenosis, lumbar region with neurogenic claudication (ICD-10 - M48.062) Jul, Osteopenia determined by x-ray (ICD-10 - M85.80) Patient needs to get a DEXA scan prior to any consideration from surgical intervention. Jul, Idiopathic peripheral neuropathy (ICD-10 - G60.9) I would like the patient to get an EMG nerve conduction study to better delineate the degree of dorsal column loss. [facility] Other 05-18-2016 History general Narrative - Reported* Type Description Date Medical History EGD/Colonoscopy 12/12- Hiatal hernia, rectal poyp(Hyperplastic), hemorrhoids Surgical History hydrocell Hospitalization History see above [facility] Other 05-18-2016 History general Narrative - Reported* Type Description Date Medical History EGD/Colonoscopy 12/12- Hiatal hernia, rectal poyp(Hyperplastic), hemorrhoids Surgical History hydrocell Surgical History XLIF-T12-S1 Hospitalization History see above [facility] Other evaluation + Plan note No data available for this section [facility] evaluation + Plan note Future Appointments Appointment Date:01/04/2023 09:30:00 AM Scheduled Provider:Olu Sosa MD Location:[facility] Appointment Type:URO Office Visit [facility] evaluation + Plan note Future Appointments Appointment Date:01/04/2023 09:30:00 AM Scheduled Provider:Olu Sosa MD Location:[facility] Appointment Type:URO Office Visit Diagnostic Tests Pending * Calculi Analysis [facility] Future Appointments Appointment Date:05/03/2023 10:30:00 AM Scheduled Provider:Olu Sosa MD Location:[facility] Appointment Type:URO Office Visit [facility] Evaluation + Plan note Future Appointments Appointment Date:10/18/2023 09:45:00 AM Scheduled Provider:Olu Sosa MD Location:[facility] Appointment Type:URO Office Visit [facility] evaluation + Plan note Future Appointments Appointment Date:10/16/2024 10:45:00 AM Scheduled Provider:Olu Sosa MD Location:[facility] Appointment Type:URO Office Visit [facility] evaluation + Plan note Future Appointments Appointment Date:05/21/2025 10:00:00 AM Scheduled Provider:Olu Sosa MD Location:[facility] Appointment Type:URO Office Visit [facility] Evaluation note* Diagnosis Onset Date Resolution Status Corticosteroid use acute Delirium acute Diabetes mellitus, type 2 ac eek Elevated blood pressure reading acute Hyperglycemia acute Lumbar scoliosis acute COPD (chronic obstructive pulmonary disease) acute Delirium acute Diabetes mellitus, type 2 ac eek Elevated blood pressure reading acute Fusion of lumbar spine acute HTN (hypertension) acute Hyperglycemia acute Impaired mobility and activities of daily living acute Lumbar scoliosis acute Pain acute Sleep apnea acute [facility] Work Phone: Evaluation note* Diagnosis S/P lumbar spinal fusion- Primary Arthrodesis status Quadriceps weakness Muscle weakness (generalized) Atrophy of quadriceps femoris muscle Left thigh pain Pain in limb Spinal stenosis of lumbar region, unspecified whether neurogenic claudication present Lumbar radiculopathy, chronic Thoracic or lumbosacral neuritis or radiculitis, unspecified Gait difficulty Abnormality of gait documented in this encounter [facility] [place] [facility]* Diagnosis Radiculopathy, lumbosacral region- Primary Thoracic or lumbosacral neuritis or radiculitis, unspecified S/P lumbar spinal fusion Arthrodesis status Quadriceps weakness Muscle weakness (generalized) Atrophy of quadriceps femoris muscle Left thigh pain Pain in limb Spinal stenosis of lumbar region, unspecified whether neurogenic claudication present Lumbar radiculopathy, chronic Thoracic or lumbosacral neuritis or radiculitis, unspecified [facility] [place] noteNo InformationNort [employer] Other evaluation noteNo assessment information available [facility] Work Phone: Evaluation note* Diagnosis S/P lumbar spinal fusion Arthrodesis status Quadriceps weakness Muscle weakness (generalized) Atrophy of quadriceps femoris muscle Left thigh pain Pain in limb Spinal stenosis of lumbar region, unspecified whether neurogenic claudication present Lumbar radiculopathy, chronic Thoracic or lumbosacral neuritis or radiculitis, unspecified documented in this encounter [facility] [place] [facility]* Diagnosis S/P lumbar fusion- Primary Arthrodesis status documented [facility] [place] [facility]* Diagnosis S/P lumbar spinal fusion- Primary Arthrodesis status Quadriceps weakness Muscle weakness (generalized) Flat back syndrome, postprocedural Other acquired deformity of back or spine [facility] S/P lumbar fusion Arthrodesis status [facility] [place] [facility]* Diagnosis Chronic low back pain, unspecified back pain laterality, unspecified whether sciatica present- Primary documented in this encounter [facility] [place] [facility]* Diagnosis S/P lumbar spinal fusion- Primary Arthrodesis status Flat back syndrome, postprocedural Other acquired deformity of back or spine documented [facility] [place] [facility]* Diagnosis Pain- Primary Generalized pain documented [facility] [place] [facility]* Diagnosis Glenohumeral arthritis, right- Primary Tendinitis of right rotator cuff Disorders of bursae and tendons in shoulder region, unspecified Biceps tendinitis of right upper extremity [facility]* Diagnosis S/P lumbar spinal fusion- Primary Arthrodesis status Flat back syndrome, postprocedural Other acquired deformity of back or spine Pseudarthrosis following spinal fusion Arthrodesis status [facility] [place] [facility]* Diagnosis Glenohumeral arthritis, right- Primary Decreased range of motion of right shoulder Other symptoms referable to shoulder joint Chronic right shoulder pain Pain in joint, shoulder region [facility]* Diagnosis Glenohumeral arthritis, right- Primary [facility]* Diagnosis Chronic right shoulder pain Pain in joint, shoulder region [facility]* Diagnosis Pain Generalized pain documented [facility] [place] [facility]* Diagnosis S/P lumbar spinal fusion Arthrodesis status Flat back syndrome, postprocedural Other acquired deformity of back or spine [facility]* Diagnosis Chronic low back pain, unspecified back pain laterality, unspecified whether sciatica present Flat back syndrome, postprocedural Other acquired deformity of back or spine Pseudarthrosis following spinal fusion Arthrodesis status [facility] [place] [facility]* Diagnosis Pre-op exam- Primary Preoperative examination, unspecified Type 2 diabetes mellitus without complication, without long-term current use of insulin (HCC) Former smoker Personal history of tobacco use, presenting hazards to [facility] Chronic obstructive pulmonary disease, unspecified COPD type (HCC) Flat back syndrome, postprocedural Other acquired deformity of back or spine Pseudarthrosis following spinal fusion Arthrodesis status documented in this encounter [facility] [place] [facility]* Diagnosis S/P lumbar fusion- Primary Arthrodesis status S/P lumbar spinal fusion Arthrodesis status Pseudarthrosis following spinal fusion Arthrodesis status documented [facility] this [facility] [place] [facility]* Diagnosis S/P lumbar fusion Arthrodesis status documented [facility] this [facility] [place] [facility]* Diagnosis Pain- Primary Generalized pain documented in this [facility] [place] [facility]* Diagnosis Pain Generalized pain documented [facility] this [facility] [place] [facility]* Diagnosis S/P lumbar fusion- Primary Arthrodesis status Flat back syndrome, postprocedural Other acquired deformity of back or spine Pseudarthrosis following spinal fusion Arthrodesis status documented in this encounter [facility] [place] [facility]* Diagnosis S/P lumbar fusion- Primary Arthrodesis status Flat back syndrome, postprocedural Other acquired deformity of back or spine Pseudarthrosis following spinal fusion Arthrodesis status documented [facility] this [facility] [place] [facility]* Diagnosis Primary osteoarthritis of both shoulders- Primary Biceps tendinitis of right upper extremity Biceps tendinitis of left shoulder Tendinitis of right rotator cuff Disorders of bursae and tendons in shoulder region, unspecified Rotator cuff tendinitis, left documented [facility] this [facility] [place] [facility]* Diagnosis Primary osteoarthritis of both shoulders- Primary Biceps tendinitis of right upper extremity Biceps tendinitis of left shoulder Tendinitis of right rotator cuff Disorders of bursae and tendons in shoulder region, unspecified Rotator cuff tendinitis, left documented [facility] this [facility] [place] [facility]* Diagnosis Type 2 diabetes mellitus without complication, with long-term current use of insulin ([facility])- Primary Pain due to onychomycosis of toenails of both feet [facility] [place] [facility]* Diagnosis Chronic left shoulder pain- Primary Pain in joint, shoulder region Primary osteoarthritis of both shoulders Biceps tendinitis of left shoulder Biceps tendinitis of right upper extremity Rotator cuff tendinitis, left documented [facility] this [facility] [place] [facility]* Diagnosis Chronic left shoulder pain- Primary Pain in joint, shoulder region documented [facility] this [facility] [place] [facility]* Diagnosis Pain- Primary Generalized pain Chronic left shoulder pain Pain in joint, shoulder region Pre-operative clearance Preoperative examination, unspecified documented [facility] this encounter [facility] [place] [facility]* Diagnosis Pain- Primary Generalized pain Chronic left shoulder pain Pain in joint, shoulder region Pre-op testing Preoperative examination, unspecified Chronic left shoulder pain Pain in joint, shoulder region documented in this encounter [facility] note* Diagnosis Pre-op evaluation- Primary Preoperative examination, unspecified Chronic left shoulder pain Pain in joint, shoulder region Pre-operative clearance Preoperative examination, unspecified Obstructive sleep apnea syndrome Obstructive sleep apnea (adult) (pediatric) Mixed hyperlipidemia Elevated BP without diagnosis of hypertension Chronic obstructive pulmonary disease, unspecified COPD type ([facility]) Former smoker Personal history of tobacco use, presenting hazards to health Gastroesophageal reflux disease without esophagitis Esophageal reflux Calculus of kidney Type 2 diabetes mellitus without complication, without long-term current use of insulin ([facility]) Cerebrovascular accident (CVA), unspecified mechanism ([facility]) Stenosis of carotid artery, unspecified laterality Chronic left shoulder pain Pain in joint, shoulder region * Assessment & Plan Note - Eric Kebede APRN.CNP - 07/22/2024 1:36 PM ESTAssociated Problem(s): Carotid stenosis Assessment: less than 50% bilaterally Follows with vascular, last office visit 05/28/24 * Assessment & Plan Note - Eric Kebede APRN.MIRYAM - 07/22/2024 1:35 PM ESTAssociated Problem(s): CVA (cerebral vascular accident) ([facility]) Assessment: hx 03/2024 Follows up with neurology, last office visit 04/25/24 Daily aspirin No residual deficits * Assessment & Plan Note - Eric Kebede APRN.MIRYAM - 07/22/2024 1:31 PM ESTAssociated Problem(s): Type 2 diabetes mellitus without complication, without long-term current useof insulin ([facility]) Assessment: managed with oral med, stable Follows [...] non-compliant with CPAP documented in this encounter [facility] note* Diagnosis Chronic left shoulder pain Pain [...] joint, shoulder region [facility] [place] [facility]* Diagnosis Pre-op evaluation- Primary Preoperative examination, [...] joint, shoulder region documented in this encounter [facility] note* Diagnosis Lumbar degenerative disc disease [facility] Diagnosis Pre-op evaluation- Primary Preoperative examination, [...] Other postprocedural status documented in this encounter [facility] note* Diagnosis Pre-op evaluation- Primary Preoperative examination, [...] joint, shoulder region documented in this encounter [facility] note* Diagnosis Pre-op evaluation- Primary Preoperative examination, [...] fusion Arthrodesis status documented in this encounter [facility] note* Diagnosis Pre-op evaluation- Primary Preoperative examination, [...] fusion Arthrodesis status [facility] [place] [facility]* Diagnosis Pre-op evaluation- Primary Preoperative examination, [...] replacement surgery- Primary [facility] [place] [facility]* Diagnosis Pre-op evaluation- Primary Preoperative examination, [...] joint, shoulder region [facility] [place] [facility]* Diagnosis Lumbar degenerative disc disease [facility] Diagnosis Lumbar degenerative disc disease [facility] Diagnosis Type 2 diabetes mellitus without complication, without long-term current use of insulin ([facility]) [facility]* Diagnosis Spinal stenosis of lumbar region with neurogenic claudication- Primary Type 2 diabetes mellitus without complication, without long-term current use of insulin ([facility]) [facility]* Diagnosis Lumbar degenerative disc disease [facility]* Diagnosis Anxiety- Primary Anxiety state, unspecified Lumbar degenerative disc disease Benign prostatic hyperplasia with nocturia [facility]* Diagnosis Myalgia Unspecified myalgia and myositis [facility]* Diagnosis Lumbar degenerative disc disease [facility]* Diagnosis Dizziness- Primary Dizziness and giddiness Dizziness Dizziness and giddiness Cerebrovascular accident (CVA), unspecified mechanism ([facility]) Double vision Diplopia Type 2 diabetes mellitus without complication, without long-term current use of insulin ([facility]) Elevated BP without diagnosis of hypertension [facility]* Diagnosis Cerebrovascular accident (CVA), unspecified mechanism ([facility])- Primary Other cerebrovascular vasospasm and vasoconstriction [facility]* Diagnosis Lumbar degenerative disc disease [facility] Diagnosis Lumbar degenerative disc disease [facility]* Diagnosis Other fatigue- Primary Gastroesophageal reflux disease without esophagitis Esophageal reflux ROMEO (obstructive sleep apnea) Obstructive sleep apnea (adult) (pediatric) Generalized osteoarthritis Generalized osteoarthrosis, involving multiple sites Type 2 diabetes mellitus without complication, without long-term current use of insulin ([facility]) [facility]* Diagnosis Cerebrovascular accident (CVA), unspecified mechanism ([facility])- Primary Stenosis of right internal carotid artery [facility]* Diagnosis Bilateral carotid artery stenosis- Primary Occlusion and stenosis of carotid artery without mention of cerebral infarction Stenosis of right internal carotid artery [facility]* Diagnosis Routine general medical examination at a health care facility- Primary Lumbar degenerative disc disease Type 2 diabetes mellitus without complication, without long-term current use of insulin ([facility]) [facility]* Diagnosis Cerebrovascular accident (CVA), unspecified mechanism (CMS-HCC)- Primary Other cerebrovascular vasospasm and vasoconstriction [facility] Diagnosis Type 2 diabetes mellitus without complication, without long-term current use of insulin ([facility]-H[facility]) [facility] Diagnosis Other fatigue- Primary [facility] Diagnosis Lumbar degenerative disc disease [facility] Diagnosis Pre-op evaluation- Primary Preoperative examination, [...] Glenohumeral arthritis, right [facility] [place] [facility] Diagnosis Pre-op evaluation- Primary Preoperative examination, [...] [facility] [place] [facility]* Diagnosis Type 2 diabetes mellitus without complication, with long-term current use of insulin ([facility])- Primary Pain due to onychomycosis of toenails of both feet [facility] Pre-op evaluation- Primary Preoperative examination, [...] [facility] [place] [facility]* Diagnosis Pre-op evaluation- Primary Preoperative examination, [...] [facility] [place] [facility]* Diagnosis Right ureteral stone- Primary Generalized osteoarthritis Generalized osteoarthrosis, involving multiple sites [facility] Diagnosis Generalized osteoarthritis- Primary Generalized osteoarthrosis, involving multiple sites [facility] Diagnosis Pre-op evaluation- Primary [...] [facility] [place] [facility]* Diagnosis Bilateral carotid artery stenosis Occlusion and stenosis of carotid artery without mention of cerebral infarction [facility] [place] [facility]* Diagnosis Drug-induced constipation- Primary Other constipation [facility] [place] [facility]* Diagnosis Pre-op evaluation- Primary Preoperative examination, [...] arthritis, right- Primary [facility] [place] [facility]* Diagnosis Pre-op evaluation- Primary Preoperative examination, [...] joint, shoulder region [facility] [place] [facility] Diagnosis Pre-op evaluation- Primary Preoperative examination, [...] of carotid artery, unspecified laterality Aftercare following bilateral shoulder joint replacement surgery- Primary documented in this encounter [facility] note* Diagnosis Pre-op evaluation- Primary Preoperative examination, [...] joint, shoulder region [facility] [place] [facility] Diagnosis Lumbar degenerative disc disease [facility] [place] [facility]* Diagnosis Acute pain of both knees- Primary Type 2 diabetes mellitus without complication, without long-term current use of insulin ([facility]) [facility] Diagnosis Lumbar degenerative disc disease [facility] [place] [facility]* Diagnosis Type 2 diabetes mellitus without complication, without long-term current use of insulin ([facility])- Primary [facility] [place] [facility]* Diagnosis Type 2 diabetes mellitus without complication, with long-term current use of insulin ([facility])- Primary Pain due to onychomycosis of toenails of both feet Venous insufficiency Unspecified venous (peripheral) insufficiency [facility] Diagnosis Lumbar degenerative disc disease [facility] Author Cortes Abarca [facility] February 02, 2023 8:47am Note Date/Time February 02, 2023 8:47 am [facility] [address] [place] [address] Gastroenterology H&P Signed Patient: Tyler Torres MR#: [id number] : 1945 Acct:[id number] Age/Sex: 77 / M Adm Date: 3 Loc: Room: Type: [facility] Attending Dr: Cortes Abarca MD Copies to: [...] signed by Cortes Abarca MD> 02/02/23 0847 [facility] Work Phone: History and physical note Author Cortes Abarca [facility] May 04, 2023 12:46pm Note Date/Time May 04, 2023 12:46pm [facility] [address] [place] [address] Gastroenterology H&P Signed Patient: Tyler Torres MR#: [id number] : 1945 Acct:[id number] Age/Sex: 78 / M Adm Date: 3 Loc: Room: Type: [facility] Attending Dr: Cortes Abarca MD Copies to: MD Armando Mukherjee MD~ Date of Service: 05/04/2023 HISTORY & [...] <Electronically signed by Cortes Abarca MD> 05/04/23 1240 [facility] Work Phone: History of Present illness Narrative* Manan Baker, DPM - 08/15/2024 3:30 PM EST Patient: [...] 2015 and colonoscopy History of esophagogastroduodenoscopy (EGD) 2017 for esophageal stricture Hyperlipidemia (CMS/HCC) Leg pain Lower back pain 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) Onychomycosis S/P epidural steroid injection 2012 Tinea pedis Medications: Current Outpatient Medications: celecoxib (CeleBREX) 200 MG capsule, Take 200 mg by mouth in the morning., Disp: , Rfl: cetirizine (ZyrTEC) 10 MG tablet, Take 10 mg by mouth 1 (one) time each day at the same time., Disp: , Rfl: cholecalciferol (Vitamin D-3) 50 MCG (1999 [place]) capsule, Take 2,000 Units by mouth [...] Resource Strain: Low Risk (08/24/2023) [facility] Overall Financial Resource Strain (CARDIA) Difficulty of Paying Living Expenses: Not hard at all Food Insecurity: No Food Insecurity (05/29/2024) [facility] Hunger Screening Within the past 12 months we worried whether our food would run out before we got money to buy more.: Never True Within the past 12 months the food we bought just didn't last and we didn't have money to get more.: Never True Transportation Needs: No Transportation Needs (03/24/2024) Re[facility] PRAPARE - Transportation Lack of Transportation (Medical): No Lack of Transportation (Non-Medical): No Physical Activity: Not on file Stress: Not on file Social Connections: Not on file Intimate Partner Violence: Not on file Housing Stability: Low Risk (03/24/2024) [facility] Housing Instability Are you worried or [...] complication, with long-term current use of insulin ([facility]) 2. Pain due to onychomycosis of toenails [...] gear. Manan Baker DPM [facility] No data available for this section [facility] Additional Instructions DISCHARGE INSTRUCTIONS FOR [...] NOT operate machinery such as power tools, lawn mowers, snow blowers, sewing machines, etc. for [...] problems. -Follow up with PCP. -Office number [phone]. [facility] Work Phone: Hospital Discharge instructions Additional [...] NOT operate machinery such as power tools, lawn mowers, snow blowers, sewing machines, etc. for [...] problems. -Follow up with PCP. -Office number [phone]. [facility] Work Phone: InstructionsNot on filedocumented in this encounter [facility] [...] available for this section [facility] Susie reason for referral (narrative)* Diagnostic Procedure Only (Routine) - Pending Review Specialty Diagnoses / Procedures Referred By Contac t Referred To Contact XR IMAGING Diagnoses S/P lumbar fusion Procedures XR LUMBAR LIMITED 2V AP/LAT RADEX SPINE LUMBOSACRAL 2/3 VIEWS Graham Mahmood PA-C [address] [place], [place] [id number] Xr Imaging Referral ID Status Reason Start Date Expiration Date Visits Requested Visits Authorized [id number] Pending Review Auto-Generat ed Referral 05/20/2022 06/19/2023 1 1 [facility] for referral (narrative)* Diagnostic Procedure Only (Routine) - Closed Specialty Diagnoses / Procedures Referred By Contac t Referred To Contact XR IMAGING Diagnoses S/P lumbar fusion Procedures XR LUMBAR LIMITED 2V AP/LAT RADEX SPINE LUMBOSACRAL 2/3 VIEWS Graham Mahmood PA-C [address] [place] [address] Xr Imaging Referral ID Status Reason Start Date Expiration Date V isits Requested Visits Authorized [id number] Closed Auto-Generate d Referral 05/20/2022 06/19/2023 1 1 [facility] for referral (narrative)* Diagnostic Procedure Only (Routine) - Pending Review Specialty Diagnoses / Procedures Referred By Contac t Referred To Contact XR IMAGING Diagnoses Chronic low back pain, unspecified back pain laterality, unspecified whether sciatica present Procedures XR LUMBAR LIMITED 2V AP/LAT RADEX SPINE LUMBOSACRAL 2/3 VIEWS Sonali Mora PA-C [address] [place] [id number] Xr Imaging Referral ID Status Reason Start Date Expiration Date Visits Requested Visits Authorized [id number] Pending Review Auto-Generat ed Referral 11/17/2022 12/17/2023 1 1 [facility] for referral (narrative)* Diagnostic Procedure Only (Routine) - Authorized Specialty Diagnoses / Procedures Referred By Contac t Referred To Contact XR IMAGING Diagnoses Pain Procedures XR SHOULDER GENERAL 3V OR MORE AP/TRUE AP/OTHER RIGHT RADEX SHOULDER COMPLETE MINIMUM 2 VIEWS Hung Jacobsen MD [address] [place] [address] Xr Imaging Referral ID Status Reason Start Date Expiration Date Visits Requested Visits Authorized [id number] Authorized Auto-Generat ed Referral 12/21/2022 01/20/2024 1 1 [facility] for referral (narrative)* Diagnostic Procedure Only (Routine) - Closed Specialty Diagnoses / Procedures Referred By Contac t Referred To Contact XR IMAGING Diagnoses Pain Procedures XR SHOULDER GENERAL 3V OR MORE AP/TRUE AP/OTHER RIGHT RADEX SHOULDER COMPLETE MINIMUM 2 VIEWS Hung Jacobsen MD [address] [place] [address] Xr Imaging Referral ID Status Reason Start Date Expiration Date V isits Requested Visits Authorized [id number] Closed Auto-Generate d Referral 12/21/2022 01/20/2024 1 1 [facility] for referral (narrative)* Diagnostic Procedure Only (Routine) - Closed Specialty Diagnoses / Procedures Referred By Contac t Referred To Contact XR IMAGING Diagnoses Chronic low back pain, unspecified back pain laterality, unspecified whether sciatica present Procedures XR LUMBAR LIMITED 2V AP/LAT RADEX SPINE LUMBOSACRAL 2/3 VIEWS Sonali Mora PA-C [address] [place] [address] Xr Imaging [place] [address] Referral ID Status Reason Start Date Expiration Date V isits Requested Visits Authorized [id number] Closed Auto-Generate d Referral 11/17/2022 12/17/2023 1 1 [facility] for referral (narrative)* Outpatient Procedure (Routine) - Pending Review Specialty Diagnoses / Procedures Referred By Contac t Referred To Contact [facility] Diagnoses Pre-op exam Procedures ECG COMPLETE ECG ROUTINE ECG W/LEAST 12 LDS W/I&R Av Pre Anes [address] [place] [address] [facility] [address] [place] [address] Referral ID Status Reason Start Date Expiration Date Visits Requested Visits Authorized [id number] Pending Review Auto-Generat ed Referral 07/30/2024 1 1 [facility] for referral (narrative)* Diagnostic Procedure Only (Routine) - Closed Specialty Diagnoses / Procedures Referred By Contac t Referred To Contact XR IMAGING Diagnoses S/P lumbar fusion Procedures XR SCOLIOSIS PA STAND/LAT 2V RADEX ENTIR THRC LMBR CRV SAC SPI W/SKULL 2/3 Mahesh Denis MD [address] [place], [place] [id number] Xr Imaging [facility]95 Referral ID Status Reason Start Date Expiration Date V isits Requested Visits Authorized [id number] Closed Auto-Generate d Referral 10/09/2023 11/07/2024 1 1 [facility] for referral (narrative)* Diagnostic Procedure Only (Routine) - Closed Specialty Diagnoses / Procedures Referred By Contac t Referred To Contact XR IMAGING Diagnoses S/P lumbar fusion Procedures XR SCOLIOSIS PA STAND/LAT 2V RADEX ENTIR THRC LMBR CRV SAC SPI W/SKULL 2/3 Mahesh Denis MD [address] [place], [place] [phone] [place] [address] Referral ID Status Reason Start Date Expiration Date V isits Requested Visits Authorized [id number] Closed Auto-Generate d Referral 10/09/2023 11/07/2024 1 1 [facility] for referral (narrative)* Diagnostic Procedure Only (Routine) - Authorized Specialty Diagnoses / Procedures Referred By Contac t Referred To Contact XR IMAGING Diagnoses Pain Procedures XR SHOULDER GENERAL 3V OR MORE AP/TRUE AP/OTHER RIGHT RADEX SHOULDER COMPLETE MINIMUM 2 VIEWS Hung Jacobsen MD [address] [place] [address] Xr Imaging [facility]95 Referral ID Status Reason Start Date Expiration Date Visits Requested Visits Authorized [id number] Authorized Auto-Generat ed Referral 11/14/2023 12/13/2024 1 1 * Diagnostic Procedure Only (Routine) - Authorized Specialty Diagnoses / Procedures Referred By Contac t Referred To Contact XR IMAGING Diagnoses Pain Procedures XR SHOULDER GENERAL 3V OR MORE AP/TRUE AP/OTHER LEFT RADEX SHOULDER COMPLETE MINIMUM 2 VIEWS Hung Jacobsen MD [address] [facility] [place] [address] Xr Imaging [facility]95 Referral ID Status Reason Start Date Expiration Date Visits Requested Visits Authorized [id number] Authorized Auto-Generat ed Referral 11/14/2023 12/13/2024 1 1 [facility] for referral (narrative)* Diagnostic Procedure Only (Routine) - Closed Specialty Diagnoses / Procedures Referred By Contac t Referred To Contact XR IMAGING Diagnoses Pain Procedures XR SHOULDER GENERAL 3V OR MORE AP/TRUE AP/OTHER RIGHT RADEX SHOULDER COMPLETE MINIMUM 2 VIEWS Hung Jacobsen MD [address] [facility] [place] [phone] Xr Imaging [facility] Referral ID Status Reason Start Date Expiration Date V isits Requested Visits Authorized [id number] Closed Auto-Generate d Referral 11/14/2023 12/13/2024 1 1 * Diagnostic Procedure Only (Routine) - Closed Specialty Diagnoses / Procedures Referred By Contac t Referred To Contact XR IMAGING Diagnoses Pain Procedures XR SHOULDER GENERAL 3V OR MORE AP/TRUE AP/OTHER LEFT RADEX SHOULDER COMPLETE MINIMUM 2 VIEWS Hung Jacobsen MD [address] [place] [address] Xr Imaging [place] [address] Referral ID Status Reason Start Date Expiration Date V isits Requested Visits Authorized [id number] Closed Auto-Generate d Referral 11/14/2023 12/13/2024 1 1 [facility] for referral (narrative)* Diagnostic Procedure Only (Routine) - Pending Review Specialty Diagnoses / Procedures Referred By Contac t Referred To Contact XR IMAGING Diagnoses S/P lumbar fusion Flat back syndrome, postprocedural Pseudarthrosis following spinal fusion Procedures XR SCOLIOSIS PA STAND/LAT 2V RADEX ENTIR THRC LMBR CRV SAC SPI W/SKULL 2/3 VW Mahesh Small MD [address] [place] [place] [phone] Xr Imaging [place] [address] Referral ID Status Reason Start Date Expiration Date Visits Requested Visits Authorized [id number] Pending Review Auto-Generat ed Referral 08/22/2024 03/21/2025 1 1 [facility] for referral (narrative)* Diagnostic Procedure Only (Routine) - New Request Specialty Diagnoses / Procedures Referred By Contac t Referred To Contact XR IMAGING Diagnoses Chronic left shoulder pain Procedures XR SHOULDER GENERAL 3V OR MORE AP/TRUE AP/OTHER RIGHT RADEX SHOULDER COMPLETE MINIMUM 2 VIEWS Hung Jacobsen MD [address] [place] [phone] Xr Imaging [facility] Referral ID Status Reason Start Date Expiration Date Visits Requested Visits Authorized [id number] New Request Auto-Generat ed Referral 07/19/2024 08/18/2025 1 1 * Diagnostic Procedure Only (Routine) - New Request Specialty Diagnoses / Procedures Referred By Contac t Referred To Contact XR IMAGING Diagnoses Chronic left shoulder pain Procedures XR SHOULDER GENERAL 3V OR MORE AP/TRUE AP/OTHER LEFT RADEX SHOULDER COMPLETE MINIMUM 2 VIEWS Hung Jacobsen MD [address] [place] [place] [phone] [place] [address] Referral ID Status Reason Start Date Expiration Date Visits Requested Visits Authorized [id number] New Request Auto-Generat ed Referral 07/19/2024 08/18/2025 1 1 [facility] for referral (narrative)* Diagnostic Procedure Only (Routine) - New Request Specialty Diagnoses / Procedures Referred By Contac t Referred To Contact XR IMAGING Diagnoses Aftercare following left shoulder joint replacement surgery Procedures XR SHOULDER GENERAL 3V OR MORE AP/TRUE AP/OTHER LEFT RADEX SHOULDER COMPLETE MINIMUM 2 VIEWS Tamera Pineda APRN.CNP [address] [phone] [place] [address] Referral ID Status Reason Start Date Expiration Date Visits Requested Visits Authorized [id number] New Request Auto-Generat ed Referral 09/07/2025 1 1 [facility] for referral (narrative)* Diagnostic Procedure Only (Routine) - Closed Specialty Diagnoses / Procedures Referred By Contac t Referred To Contact XR IMAGING Diagnoses Chronic left shoulder pain Procedures XR SHOULDER GENERAL 3V OR MORE AP/TRUE AP/OTHER LEFT RADEX SHOULDER COMPLETE MINIMUM 2 VIEWS Hung Jacobsen MD [address] [place] [address] [place] [address] Referral ID Status Reason Start Date Expiration Date V isits Requested Visits Authorized [id number] Closed Auto-Generate d Referral 07/02/2024 08/01/2025 1 1 [facility] for referral (narrative)* Diagnostic Procedure Only (Routine) - New Request Specialty Diagnoses / Procedures Referred By Contac t Referred To Contact XR IMAGING Diagnoses S/P lumbar fusion Flat back syndrome, postprocedural Procedures XR SCOLIOSIS PA STAND/LAT 2V RADEX ENTIR THRC LMBR CRV SAC SPI W/SKULL 2/3 Mahesh Small MD [address] [place], [place] [phone] [place] [facility] Referral ID Status Reason Start Date Expiration Date Visits Requested Visits Authorized [id number] New Request Auto-Generat ed Referral 08/27/2025 09/26/2025 1 1 [facility] for referral (narrative)* Diagnostic Procedure Only (Routine) - Authorized Specialty Diagnoses / Procedures Referred By Contac t Referred To Contact XR IMAGING Diagnoses Aftercare following left shoulder joint replacement surgery Procedures XR SHOULDER GENERAL 3V OR MORE AP/TRUE AP/OTHER LEFT RADEX SHOULDER COMPLETE MINIMUM 2 VIEWS Hung Jacobsen MD [address] [place] [address] Xr Imaging [facility] Referral ID Status Reason Start Date Expiration Date Visits Requested Visits Authorized [id number] Authorized Auto-Generat ed Referral 09/03/2024 10/03/2025 1 1 [facility] for referral (narrative)* Diagnostic Procedure Only (Routine) - Closed Specialty Diagnoses / Procedures Referred By Contac t Referred To Contact XR IMAGING Diagnoses Chronic left shoulder pain Procedures XR SHOULDER GENERAL 3V OR MORE AP/TRUE AP/OTHER LEFT RADEX SHOULDER COMPLETE MINIMUM 2 VIEWS Hung Jacobsen MD [address] [place] [address] [place] [address] Referral ID Status Reason Start Date Expiration Date V isits Requested Visits Authorized [id number] Closed Auto-Generate d Referral 07/02/2024 08/01/2025 1 1 [facility] for referral (narrative)* Consultation (Routine) - Pending Review Specialty Diagnoses / Procedures Referred By Contac t Referred To Contact Vascular Surgery Diagnoses Stenosis of right internal carotid artery Lyubov Butt DO [address] [place] [address] Julio Quispe MD [address], [address] [address] Referral ID Status Reason Start Date Expiration Date Visits Requested Visits Authorized [id number] Pending Review Specialty Services Required 04/25/2024 04/25/2025 1 1 [facility] for referral (narrative)* Medication Prior Authorization - Pending Review Specialty Diagnoses / Procedures Referred By Contac t Referred To Contact Armando Richards MD [address] [place] [address], [place] [address] Phone: tel: fax: Referral ID Status Reason Start Date Expiration Date V isits Requested Visits Authorized [id number] Pending Review 1 1 [facility] NarrativeDISCUSS OPTIONS FOR PROCEDURE Deltagen Other Reason for visit Narrative* Diagnostic Procedure Only (Routine) - Closed Specialty Diagnoses / Procedures Referred By Contac t Referred To Contact XR IMAGING Diagnoses Pain Procedures XR SHOULDER GENERAL 3V OR MORE AP/TRUE AP/OTHER RIGHT RADEX SHOULDER COMPLETE MINIMUM 2 VIEWS Hung Jacobsen MD [address] [place] [address] Xr Imaging Referral ID Status Reason Start Date Expiration Date V isits Requested Visits Authorized [id number] Closed Auto-Generate d Referral 12/21/2022 01/20/2024 1 1 [facility] for visit Narrative* Diagnostic Procedure Only (Routine) - Closed Specialty Diagnoses / Procedures Referred By Contac t Referred To Contact XR IMAGING Diagnoses Chronic low back pain, unspecified back pain laterality, unspecified whether sciatica present Procedures XR LUMBAR LIMITED 2V AP/LAT RADEX SPINE LUMBOSACRAL 2/3 VIEWS Sonali Mora PA-C [address] [place] [address] Xr Imaging [place] [address] Referral ID Status Reason Start Date Expiration Date V isits Requested Visits Authorized [id number] Closed Auto-Generate d Referral 11/17/2022 12/17/2023 1 1 [facility] for visit Narrative* Diagnostic Procedure Only (Routine) - Closed Specialty Diagnoses / Procedures Referred By Contac t Referred To Contact XR IMAGING Diagnoses S/P lumbar fusion Procedures XR SCOLIOSIS PA STAND/LAT 2V RADEX ENTIR THRC LMBR CRV SAC SPI W/SKULL 2/3 Mahesh Denis MD [address] [place] [address] Xr Imaging [facility]95 Referral ID Status Reason Start Date Expiration Date V isits Requested Visits Authorized [id number] Closed Auto-Generate d Referral 10/09/2023 11/07/2024 1 1 [facility] for visit Narrative* Diagnostic Procedure Only (Routine) - Closed Specialty Diagnoses / Procedures Referred By Contac t Referred To Contact XR IMAGING Diagnoses S/P lumbar fusion Flat back syndrome, postprocedural Pseudarthrosis following spinal fusion Procedures XR SCOLIOSIS PA STAND/LAT 2V RADEX ENTIR THRC LMBR CRV SAC SPI W/SKULL 2/3 Mahesh Small MD [address] [place] [phone] [place] [address] Referral ID Status Reason Start Date Expiration Date V isits Requested Visits Authorized [id number] Closed Auto-Generate d Referral 08/22/2024 03/21/2025 1 1 [facility] for visit Narrative* Consult, Test, Treat (Routine) - Closed Specialty Diagnoses / Procedures Referred By Contac t Referred To Contact Diagnoses Chronic right shoulder pain Pre-op testing Procedures REFER TO [facility] PREOPERATIVE OPTIMIZATION OFFICE/[facility]PATIENT [facility] MDM 60 MINUTES Hung Jacobsen MD [address] [place] [address] Phone: tel: fax: Referral ID Status Reason Start Date Expiration Date V isits Requested Visits Authorized [id number] Closed PCP Requested Referral 10/29/2024 10/29/2025 1 1 [facility] for visit Narrative* Diagnostic Procedure Only (Routine) - Closed Specialty Diagnoses / Procedures Referred By Bryan wyman Referred To Contact XR IMAGING Diagnoses Chronic right shoulder pain Procedures XR SHOULDER GENERAL 3V OR MORE AP/TRUE AP/OTHER RIGHT RADEX SHOULDER COMPLETE MINIMUM 2 VIEWS Hung Jacobsen MD [address] [place] [address] Phone: tel: fax: XR [place]AGING [place] [address] Referral ID Status Reason Start Date Expiration Date V isits Requested Visits Authorized [id number] Closed Auto-Generate d Referral 10/29/2024 11/28/2025 1 1 [facility] Summary Purpose Family History Relationship Condition Age at Onset Recorded Date/T [...] Unknown mother Unknown son Unknown Advance Directives Date Activated Date Inactivated Comments 03/24/2024 4:54 [...] Vas carotid duplex bilateral Julio Quispe MD [address], [address] [address] Referral ID Status Reason Start Date Expiration Date V isits Requested Visits Authorized [id number] Pending Review 05/28/2024 05/28/2025 1 1 Specialty Diagnoses / Procedures Referred By Contac t Referred To Contact Diagnoses Cerebrovascular accident (CVA), unspecified mechanism (CMS-HCC) Other cerebrovascular vasospasm and vasoconstriction Procedures Event Monitor (In Office) Edinson Lowery PA-C [address] [place] [address] Referral ID Status Reason Start Date Expiration Date V isits Requested Visits Authorized [id number] Pending Review 03/27/2024 03/27/2025 1 1 Specialty Diagnoses / Procedures Referred By Contac t Referred To Contact Diagnoses Chronic left shoulder pain Pre-operative clearance Procedures REFER TO [facility] - PREOPERATIVE OPTIMIZATION OFFICE/OUTPATIENT NEW HIGH MDM 60 MINUTES Hung Jacobsen MD [address] [facility] [place] [address] Referral ID Status Reason Start Date Expiration Date Visits Requested Visits Authorized [id number] Authorized PCP Requested Referral 4 07/02/2025 1 1 Specialty Diagnoses / Procedures Referred By Contac t Referred To Contact XR IMAGING Diagnoses Chronic left shoulder pain Procedures XR SHOULDER GENERAL 3V OR MORE AP/TRUE AP/OTHER LEFT RADEX SHOULDER COMPLETE MINIMUM 2 VIEWS Hung Jacobsen MD [address] [facility] [place] [id number] Xr Imaging [place] [address] Referral ID Status Reason Start Date Expiration Date Visits Requested Visits Authorized [id number] New Request Auto-Generat ed Referral 4 08/01/2025 1 1 Specialty Diagnoses / Procedures Referred By Contac t Referred To Contact [facility] Diagnoses Chronic left shoulder pain Pre-operative clearance Procedures ECG COMPLETE ECG ROUTINE ECG W/LEAST 12 LDS W/I&R Hung Jacobsen MD [address] [place] [id number] [facility] [address] [place], [place] [id number] Referral ID Status Reason Start Date Expiration Date Visits Requested Visits Authorized [id number] New Request Auto-Generat ed Referral 4 07/02/2025 1 1 Referral ID Status Reason Start Date Expiration Date Visits Requested Visits Authorized [id number] New Request Auto-Generat ed Referral 4 08/01/2025 1 1 Specialty Diagnoses / Procedures Referred By Contac t Referred To Contact CT IMAGING Diagnoses Chronic left shoulder pain Procedures CT SHOULDER WO IVCON LEFT CT UPPER EXTREMITY W/O CONTRAST MATERIAL Hung Jacobsen MD [address] [place] [id number] Imaging [facility] Referral ID Status Reason Start Date Expiration Date Visits Requested Visits Authorized [id number] New Request Auto-Generat ed Referral 06/18/2024 07/18/2025 1 1 Specialty Diagnoses / Procedures Referred By Bryan wyman Referred To Contact CT IMAGING Diagnoses S/P lumbar spinal fusion Flat back syndrome, postprocedural Procedures CT LUMBAR SPINE WO IVCON CT LUMBAR SPINE W/O CONTRAST MATERIAL Mahesh Small MD [address] [address] [address] Imaging Referral ID Status Reason Start Date Expiration Date Visits Requested Visits Authorized [id number] Authorized Auto-Generat ed Referral 12/13/2022 01/12/2024 1 1 Reason Evaluate and Treat L eg Strengthening and Core Strengthening Diagnosis 1 Scoliosis of lumbar region due to degenerative disease of spine in adult (M41.86) Referral Organization [facility] Referring Provider First Name Sharda Referring Provider Last Name Kevin Referring Provider Specialty Neurosurger y Referred Organization Unknown Facility Referred Provider Specialty Physical The rapist Referral Priority Routine Reason *Waiting for appt Evaluate and Treat SHU Diagnosis 1 Lumbar stenosis with neurogenic claudication (M48.062) Referral Organization [facility] Referring Provider First Name Sharda Referring Provider Last Name Kevin Referring Provider Specialty Neurosurger y Referred Organization [facility] Pain Managemen t Referred Provider Valdo Goode Referred Address [address],[address] Referred Provider Specialty Pain Medicin e Referral Priority Routine General Notes Fore, Rupal M 022 01:47:43 PM >Received today and sent P2P Reason Evaluate and Treat S trengthening Diagnosis 1 Lumbar stenosis with neurogenic claudication (M48.062) Referral Organization [facility] Referring Provider First Name Sharda Referring Provider Last Name Kevin Referring Provider Specialty Neurosurger y Referred Organization 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) Referral Organization [facility] Referring Provider First Name Sharda Referring Provider Last Name Kevin Referring Provider Specialty Neurosurger y Referred Organization [facility] Referred Provider Edelmira Byrnes Referred Address [address] [facility], [place],[address] Referred Provider Specialty Neurology Referral Priority Routine General Notes Rupal Thorne 021 10:30:17 AM >Received today and will hold referral until office notes are lockedRupal Thorne 08/05/2021 09:34:30 AM >[facility] request us to fill out their form and attach to Referral and send it to them and they will call patient to schedule. Referral was sent P2P Specialty Diagnoses / Procedures Referred By Bryan wyman Referred To Contact Diagnoses S/P lumbar spinal fusion Quadriceps weakness Atrophy of quadriceps femoris muscle Left thigh pain Spinal stenosis of lumbar region, unspecified whether neurogenic claudication present Lumbar radiculopathy, chronic Procedures CONSULT TO SPINE SURGERY OFFICE/OUTPATIENT [facility] 60-[place] [address] [place] [address] Referral ID Status Reason Start Date Expiration Date V isits Requested Visits Authorized [id number] Pending Review 01/26/2022 04/26/2022 1 1 Specialty Diagnoses / Procedures Referred By Bryan wyman Referred To [facility] Diagnoses S/P lumbar spinal fusion Quadriceps weakness Atrophy of quadriceps femoris muscle Left thigh pain Spinal stenosis of lumbar region, unspecified whether neurogenic claudication present Lumbar radiculopathy, chronic Procedures EMG(NEURO/NI) NERVE CONDUCTION STUDIES 9-[place] [address] [place] [address] [facility] [address] [place] [address] Referral ID Status Reason Start Date Expiration Date Visits Requested Visits Authorized [id number] Authorized Auto-Generat ed Referral 01/26/2022 01/26/2023 1 [...] section and content) DATE CREATED AUTHOR 05/18/2019 [facility] DATE CREATED AUTHOR AUTHOR'S ORGANIZ ATION 07/19/2019 [facility] DATE CREATED AUTHOR AUTHOR'S ORGANIZ ATION 03/12/2022 [facility] DATE CREATED AUTHOR AUTHOR'S ORGANIZ ATION 01/23/[address] [facility] DATE CREATED AUTHOR AUTHOR'S ORGANIZ ATION 03/09/2023 [facility] DATE CREATED AUTHOR AUTHOR'S ORGANIZ ATION 06/22/2024 [facility] DATE CREATED AUTHOR AUTHOR'S ORGANIZ ATION 11/01/2024 [facility] DATE CREATED AUTHOR AUTHOR'S ORGANIZ ATION 11/22/2024 [facility] DATE CREATED AUTHOR AUTHOR'S ORGANIZ ATION 12/06/2024 [facility] DATE CREATED AUTHOR AUTHOR'S ORGANIZ ATION 01/01/2025 [facility] DATE CREATED AUTHOR AUTHOR'S ORGANIZ ATION 01/30/2025 [facility] DATE CREATED AUTHOR AUTHOR'S ORGANIZ ATION 03/11/2025 [facility] DATE CREATED AUTHOR AUTHOR'S ORGANIZ ATION 03/11/2025 [facility] DATE CREATED AUTHOR AUTHOR'S ORGANIZ ATION 03/15/2025 [facility] EPIC Care Teams (unrecognized sec tion and content) Team Status: Inactive Member Role Status Dates Armando Richards MD Primary Care Provider Active Sharda Brown MD Attending Provider Active Team Status: Inactive Member Role Status Dates Armando Richards MD Primary Care Provider Active Rajiv De La O MD Admit Provider, Attending Provider A ctive Ella Beauchamp , ALIYAH Other Provider Active Yasmine Borden , ALIYAH Other Provider Active Kassi Jensen , ALIYAH Other Provider Active Andra John , ALIYAH Other Provider Active Tameka De La Cruz RN Other Provider Active Liliana Busby , ALIYAH Other Provider Active Jesica Amanda , ALIYAH Other Provider Active Adrian Lou MD Other Provider Active Chrales Nunez MD Other Provider Active Jackie Paz , CLIENT RETENTION SPECIALIST Other Provider Active Marie Hayes , Other Provider Active Geoff Smith MD Other Provider Active Cory Reese , Other Provider Active Alejandro Painter MD Other Provider Active Carmenaz Hughes MD Other Provider Active Rivera Saenz MD Other Provider Active Naomi Aviles , ANP-BC Other Provider Active Zoe Owen MD Other Provider Active Chele Napier MD Other Provider Active Dunia Lux MD Other Provider Active Davis Haji MD Other Provider Active Marty Martínez , Other Provider Active Eva Mathur MD Other Provider Active Joesph Cherry MD Other Provider Active Thuy Youssef MD Other Provider Active German Steward MD Other Provider Active Belem Mckay , INSPECTOR HAIRSPRING TRUING-C Other Provider Active Vinny Turk MD Other [...] Trinh APRN Other Provider Active Jessi Jacobson , RN Other Provider Active Hawk Mccann , [...] Active Cortes Abarca MD Attending Provider Active Mechanical Tech Relationship Specialty Start Date End Date Armando Richards [address] [place] [address], [address] [place] [address] PCP - General Internal Medicine 08/09/23 Mechanical Tech Relationship Specialty Start Date End Date Armando Richards [address] [place] [address], [address] [place] [address] PCP - General Internal Medicine 08/09/23 Mechanical Tech Relationship Specialty Start Date End Date Armando Richards [address] [place] [address], [address] [place] [address] PCP - General Internal Medicine 08/09/23 Mechanical Tech Relationship Specialty Start Date End Date Armando Richards [address] [place] [address], [address] [place] [address] PCP - General Internal Medicine 08/09/23 Mechanical Tech Relationship Specialty Start Date End Date Armando Richards [address] [place] [address], [address] [place] [address] PCP - General Internal Medicine 08/09/23 Mechanical Tech Relationship Specialty Start Date End Date Armando Richards [address] [place] [address], [address] [place] [address] PCP - General Internal Medicine 08/09/23 Mechanical Tech Relationship Specialty Start Date End Date Armando Richards [address] [place] [address], [address] [place] [address] PCP - General Internal Medicine 08/09/23 Mechanical Tech Relationship Specialty Start Date End Date Armando Richards [address] [place] [address], [address] [place] [address] PCP - General Internal Medicine 08/09/23 Mechanical Tech Relationship Specialty Start Date End Date Armando Richards [address] [place] [address], [address] [place] [address] PCP - General Internal Medicine 08/09/23 Mechanical Tech Relationship Specialty Start Date End Date Armando Richards MD [address] [place] [address], [address] [place] [address] PCP - General Internal Medicine 08/09/23 Mechanical Tech Relationship Specialty Start Date End Date Armando Richards MD [address] [place] [address], [address] [place] [address] PCP - General Internal Medicine 08/09/23 Mechanical Tech Relationship Specialty Start Date End Date Armando Richards MD [address] [place] [address], [address] [place] [address] PCP - General Internal Medicine 08/09/23 Mechanical Tech Relationship Specialty Start Date End Date Armando Richards MD [address] [place] [address], [address] [place] [address] PCP - General Internal Medicine 08/09/23 Mechanical Tech Relationship Specialty Start Date End Date Armando Richards MD [address] [place] [address], [address] [place] [address] PCP - General Internal Medicine 08/09/23 Mechanical Tech Relationship Specialty Start Date End Date Armando Richards MD [address] [place] [address], [address] [place] [address] PCP - General Internal Medicine 08/09/23 Mechanical Tech Relationship Specialty Start Date End Date Armando Richards MD [address] [place] [address], [address] [place] [address] PCP - General Internal Medicine 08/09/23 Mechanical Tech Relationship Specialty Start Date End Date Armando Richards MD [address] [place] [address], [address] [place] [address] PCP - General Internal Medicine 08/09/23 Mechanical Tech Relationship Specialty Start Date End Date Armando Richards MD [address] [place] [address], [address] [place] [address] PCP - General Internal Medicine 08/09/23 Mechanical Tech Relationship Specialty Start Date End Date Armando Richards MD [address] [place] [address], [address] [place] [address] PCP - General Pediatrics 12/10/23 Mechanical Tech Relationship Specialty Start Date End Date Armando Rihcards MD [address] [place] [address], [address] [place] [address] PCP - General Internal Medicine 08/09/23 Mechanical Tech Relationship Specialty Start Date End Date Armando Richards MD [address] [place] [address], [address] [place] [address] PCP - General Internal Medicine 08/09/23 Mechanical Tech Relationship Specialty Start Date End Date Armando Richards MD [address] [place] [address], [address] [place] [address] PCP - General Internal Medicine 08/09/23 Mechanical Tech Relationship Specialty Start Date End Date Armando Richards MD [address] [place] [address], [address] [place] [address] PCP - General Internal Medicine 08/09/23 Mechanical Tech Relationship Specialty Start Date End Date Armando Richards MD [address] [place] [address], [address] [place] [address] PCP - General Pediatrics 12/10/23 Mechanical Tech Relationship Specialty Start Date End Date Armando Richards MD [address] [place] [address], [address] [place] [address] PCP - General Pediatrics 06/05/17 Mechanical Tech Relationship Specialty Start Date End Date Armando Richards MD [address] [place] [address], [address] [place] [address] PCP - General Pediatrics 12/10/23 Mechanical Tech Relationship Specialty Start Date End Date Armando Richards MD [address] [place] [address], [address] [place] [address] PCP - General Pediatrics 12/10/23 Mechanical Tech Relationship Specialty Start Date End Date Armando Richards MD [address] [place] [address], [address] [place] [address] PCP - General Pediatrics 12/10/23 Mechanical Tech Relationship Specialty Start Date End Date Armando Richards MD [address] [place] [address], [address] [place] [address] PCP - General Pediatrics 06/05/17 Mechanical Tech Relationship Specialty Start Date End Date Armando Richards MD [address] [place] [address], [address] [place] [address] PCP - General Pediatrics 06/05/17 Mechanical Tech Relationship Specialty Start Date End Date Armando Richards MD [address] [place] [address], [address] [place] [address] PCP - General Pediatrics 12/10/23 Mechanical Tech Relationship Specialty Start Date End Date Armando Richards MD [address] [place] [address], [address] [place] [address] PCP - General Pediatrics 06/05/17 Mechanical Tech Relationship Specialty Start Date End Date Armando Richards MD [address] [place] [address], [address] [place] [address] PCP - General Pediatrics 06/05/17 Mechanical Tech Relationship Specialty Start Date End Date Armando Richards MD [address] [place] [address], [address] [place] [address] PCP - General Pediatrics 06/05/17 Mechanical Tech Relationship Specialty Start Date End Date Armando Richards MD [address] [place] [address], [address] [place] [address] PCP - General Pediatrics 12/10/23 Mechanical Tech Relationship Specialty Start Date End Date Armando Richards MD [address] [place] [address], [address] [place] [address] PCP - General Pediatrics 12/10/23 Mechanical Tech Relationship Specialty Start Date End Date Armando Richards MD [address] [place] [address], [address] [place] [address] PCP - General Pediatrics 12/10/23 Mechanical Tech Relationship Specialty Start Date End Date Armando Richards MD [address] [place] [address], [address] [place] [address] PCP - General Pediatrics 12/10/23 Mechanical Tech Relationship Specialty Start Date End Date Armando Richards MD [address] [place] [address], [address] [place] [address] PCP - General Pediatrics 12/10/23 Mechanical Tech Relationship Specialty Start Date End Date Armando Richards MD [address] [place] [address], [address] [place] [address] PCP - General Pediatrics 06/05/17 Mechanical Tech Relationship Specialty Start Date End Date Armando Richards MD [address] [place] [address], [address] [place] [address] PCP - General Pediatrics 12/10/23 Mechanical Tech Relationship Specialty Start Date End Date Armando Richards MD [address] [place] [address], [address] [place] [address] PCP - General Pediatrics 12/10/23 Mechanical Tech Relationship Specialty Start Date End Date Armando Richards MD [address] [place] [address], [address] [place] [address] PCP - General Pediatrics 12/10/23 Mechanical Tech Relationship Specialty Start Date End Date Armando Richards MD [address] [place] [address], [address] [place] [address] PCP - General Pediatrics 12/10/23 Mechanical Tech Relationship Specialty Start Date End Date Armando Richards MD [address] [place] [address], [address] [place] [address] PCP - General Pediatrics 12/10/23 Mechanical Tech Relationship Specialty Start Date End Date Armando Richards MD [address] [place] [address], [address] [place] [address] PCP - General Pediatrics 12/10/23 Mechanical Tech Relationship Specialty Start Date End Date Armando Richards MD [address] [place] [address], [address] [place] [address] PCP - General Pediatrics 12/10/23 Mechanical Tech Relationship Specialty Start Date End Date Armando Richards MD [address] [place] [address], [address] [place] [address] PCP - General Pediatrics 12/10/23 Mechanical Tech Relationship Specialty Start Date End Date Armando Richards MD [address] [place] [address], [address] [place] [address] PCP - General Pediatrics 12/10/23 Mechanical Tech Relationship Specialty Start Date End Date Armando Richards MD [address] [place] [address], [address] [place] [address] PCP - General Internal Medicine 08/09/23 Mechanical Tech Relationship Specialty Start Date End Date Armando Richards MD [address] [place] [address], [address] [place] [address] PCP - General Internal Medicine 08/09/23 Mechanical Tech Relationship Specialty Start Date End Date Armando Richards MD [address] [place] [address], [address] [place] [address] PCP - General Internal Medicine 08/09/23 Mechanical Tech Relationship Specialty Start Date End Date Armando Richards MD [address] [place] [address], [address] [place] [address] PCP - General Internal Medicine 08/09/23 Team Status: Inactive Member Role Status Dates Olu Sosa MD Attending Provider Active Start : October 29, 2024 End: October 29, 2024 Mechanical Tech Relationship Specialty Start Date End Date Armando Richards MD [address] [place] [address], [address] [place] [address] PCP - General Pediatrics 12/10/23 Mechanical Tech Relationship Specialty Start Date End Date Armando Richards MD [address] [place] [address], [address] [place] [address] PCP - General Internal Medicine 08/09/23 Mechanical Tech Relationship Specialty Start Date End Date Armando Richards MD [address] [place] [address], [address] [place] [address] PCP - General Pediatrics 12/10/23 Mechanical Tech Relationship Specialty Start Date End Date Armando Richards MD [address] [place] [address], [address] [place] [address] PCP - General Pediatrics 12/10/23 Mechanical Tech Relationship Specialty Start Date End Date Armando Richards MD [address] [place] [address], [address] [place] [address] PCP - General Internal Medicine 08/09/23 Mechanical Tech Relationship Specialty Start Date End Date Armando Richards MD [address] [place] [address], [address] [place] [address] PCP - General Internal Medicine 08/09/23 Mechanical Tech Relationship Specialty Start Date End Date Armando Richards MD [address] [place] [address], [address] [place] [address] PCP - General Internal Medicine 08/09/23 Mechanical Tech Relationship Specialty Start Date End Date Armando Richards MD [address] [place] [address], [address] [place] [address] PCP - General Pediatrics 12/10/23 Source Comments (unrecognize d section and content) In the event this informatio n is protected by the [facility] [place][Note 2] Confidentiality of Alcohol and Drug Abuse Patient Records regulations: The Federal rules restrict any use of the information to criminally investigate or prosecute any alcohol or drug abuse patient.[facility] the event this information is protected by the Federal Confidentiality of Alcohol and Drug Abuse Patient Records regulations: The Federal rules restrict any use of the information to criminally investigate or prosecute any alcohol or drug abuse patient.[facility] Center[facility] the event this information is protected by the Federal Confidentiality of Alcohol and Drug Abuse Patient Records regulations: The Federal rules restrict any use of the information to criminally investigate or prosecute any alcohol or drug abuse patient.[facility] Center[facility] the event this information is protected by the Federal Confidentiality of Alcohol and Drug Abuse Patient Records regulations: The Federal rules restrict any use of the information to criminally investigate or prosecute any alcohol or drug abuse patient.[facility] Center[facility] the event this information is protected by the Federal Confidentiality of Alcohol and Drug Abuse Patient Records regulations: The Federal rules restrict any use of the information to criminally investigate or prosecute any alcohol or drug abuse patient.[facility] Center[facility] the event this information is protected by the Federal Confidentiality of Alcohol and Drug Abuse Patient Records regulations: The Federal rules restrict any use of the information to criminally investigate or prosecute any alcohol or drug abuse patient.[facility] Center[facility] the event this information is protected by the Federal Confidentiality of Alcohol and Drug Abuse Patient Records regulations: The Federal rules restrict any use of the information to criminally investigate or prosecute any alcohol or drug abuse patient.[facility] Center[facility] the event this information is protected by the Federal Confidentiality of Alcohol and Drug Abuse Patient Records regulations: The Federal rules restrict any use of the information to criminally investigate or prosecute any alcohol or drug abuse patient.[facility] CenterIn the event this information is protected by the Federal Confidentiality of Alcohol and Drug Abuse Patient Records regulations: The Federal rules restrict any use of the information to criminally investigate or prosecute any alcohol or drug abuse patient.[facility] CenterIn the event this information is protected by the Federal Confidentiality of Alcohol and Drug Abuse Patient Records regulations: The Federal rules restrict any use of the information to criminally investigate or prosecute any alcohol or drug abuse patient.[facility] CenterIn the event this information is protected by the Federal Confidentiality of Alcohol and Drug Abuse Patient Records regulations: The Federal rules restrict any use of the information to criminally investigate or prosecute any alcohol or drug abuse patient.[facility] CenterIn the event this information is protected by the Federal Confidentiality of Alcohol and Drug Abuse Patient Records regulations: The Federal rules restrict any use of the information to criminally investigate or prosecute any alcohol or drug abuse patient.[facility] CenterIn the event this information is protected by the Federal Confidentiality of Alcohol and Drug Abuse Patient Records regulations: The Federal rules restrict any use of the information to criminally investigate or prosecute any alcohol or drug abuse patient.[facility] CenterIn the event this information is protected by the Federal Confidentiality of Alcohol and Drug Abuse Patient Records regulations: The Federal rules restrict any use of the information to criminally investigate or prosecute any alcohol or drug abuse patient.[facility] CenterIn the event this information is protected by the Federal Confidentiality of Alcohol and Drug Abuse Patient Records regulations: The Federal rules restrict any use of the information to criminally investigate or prosecute any alcohol or drug abuse patient.[facility] CenterIn the event this information is protected by the Federal Confidentiality of Alcohol and Drug Abuse Patient Records regulations: The Federal rules restrict any use of the information to criminally investigate or prosecute any alcohol or drug abuse patient.[facility] CenterIn the event this information is protected by the Federal Confidentiality of Alcohol and Drug Abuse Patient Records regulations: The Federal rules restrict any use of the information to criminally investigate or prosecute any alcohol or drug abuse patient.[facility] CenterIn the event this information is protected by the Federal Confidentiality of Alcohol and Drug Abuse Patient Records regulations: The Federal rules restrict any use of the information to criminally investigate or prosecute any alcohol or drug abuse patient.[facility] CenterIn the event this information is protected by the Federal Confidentiality of Alcohol and Drug Abuse Patient Records regulations: The Federal rules restrict any use of the information to criminally investigate or prosecute any alcohol or drug abuse patient.[facility] CenterIn the event this information is protected by the Federal Confidentiality of Alcohol and Drug Abuse Patient Records regulations: The Federal rules restrict any use of the information to criminally investigate or prosecute any alcohol or drug abuse patient.[facility] CenterIn the event this information is protected by the Federal Confidentiality of Alcohol and Drug Abuse Patient Records regulations: The Federal rules restrict any use of the information to criminally investigate or prosecute any alcohol or drug abuse patient.[facility] CenterIn the event this information is protected by the Federal Confidentiality of Alcohol and Drug Abuse Patient Records regulations: The Federal rules restrict any use of the information to criminally investigate or prosecute any alcohol or drug abuse patient.[facility] CenterIn the event this information is protected by the Federal Confidentiality of Alcohol and Drug Abuse Patient Records regulations: The Federal rules restrict any use of the information to criminally investigate or prosecute any alcohol or drug abuse patient.[facility] CenterIn the event this information is protected by the Federal Confidentiality of Alcohol and Drug Abuse Patient Records regulations: The Federal rules restrict any use of the information to criminally investigate or prosecute any alcohol or drug abuse patient.[facility] CenterIn the event this information is protected by the Federal Confidentiality of Alcohol and Drug Abuse Patient Records regulations: The Federal rules restrict any use of the information to criminally investigate or prosecute any alcohol or drug abuse patient.[facility] CenterIn the event this information is protected by the Federal Confidentiality of Alcohol and Drug Abuse Patient Records regulations: The Federal rules restrict any use of the information to criminally investigate or prosecute any alcohol or drug abuse patient.[facility] CenterIn the event this information is protected by the Federal Confidentiality of Alcohol and Drug Abuse Patient Records regulations: The Federal rules restrict any use of the information to criminally investigate or prosecute any alcohol or drug abuse patient.[facility] CenterIn the event this information is protected by the Federal Confidentiality of Alcohol and Drug Abuse Patient Records regulations: The Federal rules restrict any use of the information to criminally investigate or prosecute any alcohol or drug abuse patient.[facility] CenterIn the event this information is protected by the Federal Confidentiality of Alcohol and Drug Abuse Patient Records regulations: The Federal rules restrict any use of the information to criminally investigate or prosecute any alcohol or drug abuse patient.[facility] CenterIn the event this information is protected by the Federal Confidentiality of Alcohol and Drug Abuse Patient Records regulations: The Federal rules restrict any use of the information to criminally investigate or prosecute any alcohol or drug abuse patient.[facility] CenterIn the event this information is protected by the Federal Confidentiality of Alcohol and Drug Abuse Patient Records regulations: The Federal rules restrict any use of the information to criminally investigate or prosecute any alcohol or drug abuse patient.[facility] CenterIn the event this information is protected by the Federal Confidentiality of Alcohol and Drug Abuse Patient Records regulations: The Federal rules restrict any use of the information to criminally investigate or prosecute any alcohol or drug abuse patient.[facility] CenterIn the event this information is protected by the Federal Confidentiality of Alcohol and Drug Abuse Patient Records regulations: The Federal rules restrict any use of the information to criminally investigate or prosecute any alcohol or drug abuse patient.[facility] CenterIn the event this information is protected by the Federal Confidentiality of Alcohol and Drug Abuse Patient Records regulations: The Federal rules restrict any use of the information to criminally investigate or prosecute any alcohol or drug abuse patient.[facility] CenterIn the event this information is protected by the Federal Confidentiality of Alcohol and Drug Abuse Patient Records regulations: The Federal rules restrict any use of the information to criminally investigate or prosecute any alcohol or drug abuse patient.[facility] CenterIn the event this information is protected by the Federal Confidentiality of Alcohol and Drug Abuse Patient Records regulations: The Federal rules restrict any use of the information to criminally investigate or prosecute any alcohol or drug abuse patient.[facility] CenterIn the event this information is protected by the Federal Confidentiality of Alcohol and Drug Abuse Patient Records regulations: The Federal rules restrict any use of the information to criminally investigate or prosecute any alcohol or drug abuse patient.[facility] CenterIn the event this information is protected by the Federal Confidentiality of Alcohol and Drug Abuse Patient Records regulations: The Federal rules restrict any use of the information to criminally investigate or prosecute any alcohol or drug abuse patient.[facility] CenterIn the event this information is protected by the Federal Confidentiality of Alcohol and Drug Abuse Patient Records regulations: The Federal rules restrict any use of the information to criminally investigate or prosecute any alcohol or drug abuse patient.[facility] CenterIn the event this information is protected by the Federal Confidentiality of Alcohol and Drug Abuse Patient Records regulations: The Federal rules restrict any use of the information to criminally investigate or prosecute any alcohol or drug abuse patient.[facility] CenterIn the event this information is protected by the Federal Confidentiality of Alcohol and Drug Abuse Patient Records regulations: The Federal rules restrict any use of the information to criminally investigate or prosecute any alcohol or drug abuse patient.[facility] CenterIn the event this information is protected by the Federal Confidentiality of Alcohol and Drug Abuse Patient Records regulations: The Federal rules restrict any use of the information to criminally investigate or prosecute any alcohol or drug abuse patient.[facility] CenterIn the event this information is protected by the Federal Confidentiality of Alcohol and Drug Abuse Patient Records regulations: The Federal rules restrict any use of the information to criminally investigate or prosecute any alcohol or drug abuse patient.[facility] CenterIn the event this information is protected by the Federal Confidentiality of Alcohol and Drug Abuse Patient Records regulations: The Federal rules restrict any use of the information to criminally investigate or prosecute any alcohol or drug abuse patient.[facility] CenterIn the event this information is protected by the Federal Confidentiality of Alcohol and Drug Abuse Patient Records regulations: The Federal rules restrict any use of the information to criminally investigate or prosecute any alcohol or drug abuse patient.[facility] CenterIn the event this information is protected by the Federal Confidentiality of Alcohol and Drug Abuse Patient Records regulations: The Federal rules restrict any use of the information to criminally investigate or prosecute any alcohol or drug abuse patient.[facility] CenterIn the event this information is protected by the Federal Confidentiality of Alcohol and Drug Abuse Patient Records regulations: The Federal rules restrict any use of the information to criminally investigate or prosecute any alcohol or drug abuse patient.[facility] CenterIn the event this information is protected by the Federal Confidentiality of Alcohol and Drug Abuse Patient Records regulations: The Federal rules restrict any use of the information to criminally investigate or prosecute any alcohol or drug abuse patient.[facility] CenterIn the event this information is protected by the Federal Confidentiality of Alcohol and Drug Abuse Patient Records regulations: The Federal rules restrict any use of the information to criminally investigate or prosecute any alcohol or drug abuse patient.[facility] CenterIn the event this information is protected by the Federal Confidentiality of Alcohol and Drug Abuse Patient Records regulations: The Federal rules restrict any use of the information to criminally investigate or prosecute any alcohol or drug abuse patient.[facility] CenterIn the event this information is protected by the Federal Confidentiality of Alcohol and Drug Abuse Patient Records regulations: The Federal rules restrict any use of the information to criminally investigate or prosecute any alcohol or drug abuse patient.[facility] CenterIn the event this information is protected by the Federal Confidentiality of Alcohol and Drug Abuse Patient Records regulations: The Federal rules restrict any use of the information to criminally investigate or prosecute any alcohol or drug abuse patient.[facility] CenterIn the event this information is protected by the Federal Confidentiality of Alcohol and Drug Abuse Patient Records regulations: The Federal rules restrict any use of the information to criminally investigate or prosecute any alcohol or drug abuse patient.[facility] CenterIn the event this information is protected by the Federal Confidentiality of Alcohol and Drug Abuse Patient Records regulations: The Federal rules restrict any use of the information to criminally investigate or prosecute any alcohol or drug abuse patient.[facility] Reason for Visit (unrecogniz ed section and content) Reason Comments Radiology XR Specialty Diagnoses / Procedures Referred By Contac t Referred To Contact XR IMAGING Diagnoses Chronic left shoulder pain Procedures XR SHOULDER GENERAL 3V OR MORE AP/TRUE AP/OTHER LEFT RADEX SHOULDER COMPLETE MINIMUM 2 VIEWS Hung Jacobsen MD [address] [place] [address] [place] [address] Referral ID Status Reason Start Date Expiration Date V isits Requested Visits Authorized [id number] Closed Auto-Generate d Referral 07/02/2024 08/01/2025 1 [...] CONDUCTION STUDIES 9-10 [place] [address] [place] [address] [facility] [address] [place] [address] Referral ID Status Reason Start Date Expiration Date V isits Requested Visits Authorized [id number] Closed Auto-Generate d Referral 01/26/2022 01/26/2023 1 [...] HIGH MDM 60-74 [place] [address] [place] [address] Referral ID Status Reason Start Date Expiration Date V isits Requested Visits Authorized [id number] Pending Review 01/26/2022 04/26/2022 1 1 Reason Comments Radiology XR Reason Comments Follow Up Reason Comments Radio Gen RMP Specialty Diagnoses / Procedures Referred By Contac t Referred To Contact XR IMAGING Diagnoses S/P lumbar fusion Procedures XR LUMBAR LIMITED 2V AP/LAT RADEX SPINE LUMBOSACRAL 2/3 VIEWS Graham Mahmood PA-C [address] [place] [address] [facility] Referral ID Status Reason Start Date Expiration Date V isits Requested Visits Authorized [id number] Closed Auto-Generate d Referral 05/20/2022 06/19/2023 1 1 Reason Comments Future Appointment Reason Comments Follow Up Reason Comments Pain New Reason Comments Schedule Surgery Reason Comments New Reason Comments PT Eval Specialty Diagnoses / Procedures Referred By Contac t Referred To Contact Physical Therapy / PHYSICAL THERAPY Diagnoses R SHOULDER Procedures [place] [address] [place] [address] [place] [address] [place] [address] Referral ID Status Reason Start Date Expiration Date V isits Requested Visits Authorized [id number] Authorized 08/14/2022 08/13/2023 99 99 Specialty Diagnoses / Procedures Referred By Contac t Referred To Contact CT IMAGING Diagnoses S/P lumbar spinal fusion Flat back syndrome, postprocedural Procedures CT LUMBAR SPINE WO IVCON CT LUMBAR SPINE W/O CONTRAST MATERIAL Mahesh Samll MD [address] [place] [address] [address] [address] [facility] Referral ID Status Reason Start Date Expiration Date V isits Requested Visits Authorized [id number] Closed Auto-Generate d Referral 12/13/2022 01/12/2024 1 1 Reason Comments surgery questions Reason Comments Appointment Reason Comments Radio Gen A21 Specialty Diagnoses / Procedures Referred By Contac t Referred To Contact XR IMAGING Diagnoses Pain Procedures XR SHOULDER GENERAL 3V OR MORE AP/TRUE AP/OTHER RIGHT RADEX SHOULDER COMPLETE MINIMUM 2 VIEWS Hung Jacobsen MD [address] [place] [address] [place] [address] Referral ID Status Reason Start Date Expiration Date V isits Requested Visits Authorized [id number] Closed Auto-Generate d Referral 11/14/2023 12/13/2024 1 [...] HIGH MDM 60 MINUTES Hung Jacobsen MD [address] [place] [address] Referral ID Status Reason Start Date Expiration Date V isits Requested Visits Authorized [id number] Closed PCP Requested Referral 07/02/2024 07/02/2025 1 1 Specialty Diagnoses / Procedures Referred By Contac t Referred To Contact CT IMAGING Diagnoses Chronic left shoulder pain Procedures CT SHOULDER WO IVCON LEFT CT UPPER EXTREMITY W/O CONTRAST MATERIAL Hung Jacobsen MD [address] [place] [address] [place] [address] Referral ID Status Reason Start Date Expiration Date V isits Requested Visits Authorized [id number] Closed Auto-Generate d Referral 06/18/2024 07/18/2025 1 1 Reason Onset Date Comments Med Refill 08/05/2024 Reason Comments Post Op Established Patient Reason Comments Radio Gen RMP Radiology Service Pr ogress NotePATIENT NAME: Tyler Baugh PotterMRN: [id number] OF SERVICE: August 08, 2024TIME: 1:01 PMPATIENT [...] Expiration Date V isits Requested Visits Authorized [id number] Closed Auto-Generate d Referral 07/02/2024 08/01/2025 1 [...] Specialty Diagnoses / Procedures Referred By Bryan wyman Referred To Contact Diagnoses Dizziness Armando Neville Dhruv, DO [address] [place] [address] Referral ID Status Reason Start Date Expiration Date Visits Re quested Visits Authorized [id number] 1 1 Reason Onset Date Comments Med [...] 03/25/24. Specialty Diagnoses / Procedures Referred By Bryan wyman Referred To Contact Vascular Surgery Diagnoses Stenosis of right internal carotid artery Lyubov Butt DO [address] [place] [address] Julio Quispe MD [address], [address] [address] Referral ID Status Reason Start Date Expiration Date Visits Requested Visits Authorized [id number] Pending Review Specialty Services Required 04/25/2024 04/25/2025 [...] Specialty Diagnoses / Procedures Referred By Bryan wyman Referred To Contact XR IMAGING Diagnoses Aftercare following left shoulder joint replacement surgery Procedures XR SHOULDER GENERAL 3V OR MORE AP/TRUE AP/OTHER LEFT RADEX SHOULDER COMPLETE MINIMUM 2 VIEWS Hung Jacobsen MD [address] [place] [address] Phone: tel: fax: [place] [address] Referral ID Status Reason Start Date Expiration Date V isits Requested Visits Authorized [id number] Closed Auto-Generate d Referral 09/03/2024 10/03/2025 1 1 Reason Onset Date Comments Med Refill 10/31/2024 Reason Comments Pre-op Exam Dr. Sosa on 11/06/24 Reason Onset Date Comments Med Refill 12/03/2024 Reason Comments Med Refill Reason Comments Follow-up Testing done- denies dizziness at present Reason Onset Date Comments Er Follow-up 12/23/2024 Reason Comments Er Follow-up PMH 12/20/24 Constipat ion Reason Comments Established Patient Post Op Specialty Diagnoses / Procedures Referred By Contac t Referred To Contact XR IMAGING Diagnoses Chronic right shoulder pain Procedures XR SHOULDER GENERAL 3V OR MORE AP/TRUE AP/OTHER RIGHT RADEX SHOULDER COMPLETE MINIMUM 2 VIEWS Hung Jacobsen MD [address] [id number] Phone: tel: fax: XR IMAGING [facility] Referral ID Status Reason Start Date Expiration Date V isits Requested Visits Authorized [id number] Closed Auto-Generate d Referral 10/29/2024 11/28/2025 1 1 Reason Onset Date Comments Med Refill 03/07/2025 Reason Comments fall, knees hurt Reason Comments DM Foot Care Reason Onset Date Comments Med Refill 04/10/2025 Reason Onset Date Comments Med Refill 05/09/2025 Goals (unrecognized section and content) Goals may [...] whole-do not crush or chew. Although the bus company manager does not recommend opening the capsule, the [...] verify indication for use. Observe for bleeding. 06 (Given - Provid er: Shannon Bob RN)1449 (Given - Provider: Nikki Henriquez RN)0 (Due) insulin lispro (HumaLOG) injection 1-5 Units [...] be taken orally, Indication: NSAID Ulcer Prevention 0613 (Given - Provid er: Shannon Bob RN) [...] PRN Medication Order 03/23/2024 03/24/2024 03/25/2024 artificial tear([id number]) (TEARS NATURALE FORTE) 0.1-0.3-0.2 % ophthalmic solution [...] intravenous, Once in imaging, contrast, Starting on [place] 03/24/24 at 1341, For 1 dose, VESICANT [...] BE BASED ON THE PRIMARY CLINICAL RECORDS. [facility]. provides no warranty or guarantee of the accuracy or completeness of information in this document.
== END 2025-05-20 08:40 | disposition home or self-care (01) ==
LOC: US 08:40
PROVIDERS: PCP Internal Medicine; Visit Provider Urology
DX: N20.0 Calculus of kidney (principal); N28.1 Cyst of kidney, acquired
CPT/HCPCS: 76775